=== PATIENT | male | born 1955 | race Asian ===

== ENCOUNTER 2022-03-30 16:20 | Outpatient (REF) | payer OTHER, SELFPAY ==
[2022-03-30 16:36] LABS: MANUAL DIFF FLAG NO
[2022-03-30 17:00] LABS: Basophils Percent Auto 0.2 % (0-2); Eosinophils Percent Auto 0.4 % (0-4); Hematocrit 44.2 % (42.0-52.0); Hemoglobin 14.8 g/dl (14.0-18.0); Imm Gran Abs Auto 0.01 X10*3/uL (0.00-0.03); Imm Gran Pct Auto 0.2 % (0.0-0.4); Lymphocytes Absolute Auto 1.4 X10*3/uL (1.2-4.9); Lymphocytes Percent Auto 28.8 % (20-40); Mean Corpuscular HGB Conc 33.5 g/dl (31.0-36.0); Mean Corpuscular Hemoglobin 29.3 pg (27.0-33.0); Mean Corpuscular Volume 87.5 fL (80.0-98.0); Mean Platelet Volume 8.8 fL (9.4-12.4); Monocytes Absolute Auto 0.5 X10*3/uL (0.1-1.2); Monocytes Percent Auto 9.9 % (2-11); Neutrophils Percent Auto 60.5 % (45-73); Platelet Count 191 X10*3/uL (160-400); Red Blood Count 5.05 X10*6/uL (4.60-5.80); Red Cell Distribution Width 12.1 % (11.0-16.0)
[2022-03-30 17:21] LABS: Anion Gap 16 (12-20); Blood Urea Nitrogen 21 mg/dL (9-16); C Reactive Protein 0.03 mg/dL (< or = 0.50); Calcium 9.3 mg/dL (8.4-10.2); Carbon Dioxide 28 mmol/L (22-29); Chloride 103 mmol/L (96-108); Estimated Glomerular Filt Rate 60; Glucose Random 94 mg/dL (60-115); Potassium 4.5 mmol/L (3.3-5.1); Sodium 142 mmol/L (135-145)
[2022-03-30 17:41] LABS: Creatinine Urine 93.76 mg/dL; Total Protein Urine Random < 7 mg/dL (<12)
[2022-03-30 18:27] LABS: Erythrocyte Sedimentation Rate 6 MM/HR (0-15)
[2022-04-01 12:18] LABS: Anti DNA DS Antibody <1 IU/mL; SM/Ribonucleoprotein Ab <1.0 NEG AI (<1.0 NEG); Smith Protein <1.0 NEG AI (<1.0 NEG)
== END 2022-03-30 16:21 | disposition home or self-care (01) ==
LOC: HO.LAB 16:20
PROVIDERS: PCP Internal Medicine; Visit Provider Internal Medicine Rheumatology
DX: R76.8 Other specified abnormal immunological findings in serum (principal)
CPT/HCPCS: 36415; 80048; 84156; 85025; 85652; 86140; 86225; 86235

== ENCOUNTER 2024-02-08 14:04 | Outpatient (AMB) | payer OTHER, SELFPAY ==
--- NOTE | 2024-02-08 14:14 | MHC.PC.OV ---
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: No Allergies No Known Allergies Allergy (Verified 02/08/24 14:15) Tobacco use date assessed: 02/08/24 Fall risk assessment: No Falls in past year Last assessed Fall Risk: 02/08/24 Dental Screening Dental Screen Date: 02/08/24 Did you have a dental visit in the last 12 months?: Yes Did you have a dental problem in the last 6 months where you did not have access to dental care?: No Was dental information given to patient?: Patient has dentist HPI HPI Comments History of Present Illness Details 68 year old male with a past medical history of CAD s/p PCI, dilation ascending aortic aneurysm, hypertension, esophageal stenosis, GERD with esophagitis, JENNIFER intolerant to CPAP, Hurtle cell neoplasm s/p partial thyroidectomy 2019 presenting to establish care.PCP was Dr Jaimes at [facility] CV: Follows with [facility] cardiology. On losartan 25mg, lipitor, ASA. Chronic intermittent chest pain, shortness of breath especially with laying flat. Next appt end of February. GI: Follows with [facility] GI. Saw Kevin Oliva 12/27/2023. 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 History of gastric erosions, esophagitis. Urology: Follows with Dr Huggins. BPH s/p TURP. History of renal cysts. History of hematuria with negative work up. MSK: [facility]. Hand pain b/l, b/l knee pain, foot pain, low back pain. Sounds like they ordered injections for patient. History of polyarthralgia, positive JOE. Saw rheumatology.Did not seem to evidence of inflammatory arthritis MSK -gout -Chronic back pain. Lumbar disc disease Endocrine: History of thyroid nodules, s/p partial/total thyroidectomy Dr Salamanca 2019. Pathology Hurtle cell. Per last PCP note-recent thyroid ultrasound with stable thyroid noduesl Nephrology: History of proteninura. Colonoscopy-02/14/2019. ROS CONSTITUTIONAL: Denies weight loss, fever and chills. HEENT: Denies changes in vision and hearing. RESPIRATORY: Denies SOB and cough. CV: Denies palpitations and CP GI: Denies abdominal pain, nausea, vomiting and diarrhea. : Denies dysuria and urinary frequency. MSK: Denies new myalgia and joint pain. SKIN: Denies rash and pruritus. NEUROLOGICAL: Denies headache PSYCHIATRIC: Denies recent changes in mood. PHYSICAL EXAM: GENERAL: Alert and oriented x 3. NAD EYES: EOMI. Anicteric. HENT: Moist mucous membranes. No scleral icterus. No cervical lymphadenopathy. LUNGS: Clear to auscultation bilaterally. CARDIOVASCULAR: Regular rate and rhythm. No murmur. No JVD. ABDOMEN: Soft, non-tender +bs EXTREMITIES: No edema. Non-tender. SKIN: No rashes or lesions. Warm. NEUROLOGIC: No focal neurological deficits. CN II-XII grossly intact PSYCHIATRIC: Cooperative. 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 1. Little interest or pleasure in doing things: not at all 2. Feeling down, depressed, or hopeless: not at all 3. Trouble falling or staying asleep, or sleeping too much: several days 4. Feeling tired or having little energy: several days 5. Poor appetite or overeating: not at all 6. Feeling bad about yourself - or that you are a failure or have let yourself or your family down: not at all 7. Trouble concentrating on things, such as reading the newspaper or watching television: not at all 8. Moving or speaking so slowly that other people could have noticed. Or the opposite - being so fidgety or restless that you have been moving around a lot more than usual: several days 9. Thoughts that you would be better off or of hurting yourself in some way: not at all Total score: 3 Depression Screening Interpretation: Positive Depression Screening Done: Yes 59853 - PHQ-9 Billing: Patient declined-do not bill Source: Developed by Drs. Vipin Cardoso, Jana Motta, Albaro Resendiz and colleagues, with an educational sonu from [employer]. Thrive Questionnaire Date Thrive assessed: 02/08/24 I am a: Patient What is your living situation today?: I have a steady place to live Within the past 12 months, did the food you bought not last and you didn't have the money to get more?: Never true Within the past 12 months, did you worry whether your food would run out before you got money to buy more?: Never true Do you have trouble paying for medicines?: No Do you have trouble getting transportation to medical appointments?: No Do you have trouble paying your heating and electricity bill?: No Do you have trouble taking care of your child, family member or friend?: No Do you have trouble with day-to-day activities such as bathing, preparing meals, shopping, managing finances, etc.?: No Are you currently unemployed and looking for a job?: No Are you interested in more education?: No Please select the resources that you would like help with: None Currently or been in a relationship where the following occur: No concerns reported THRIVE Score: 0 AUDIT C Alcohol Use Questionnaire (AUDIT-C) 1. How often do you have a drink containing alcohol?: Never 3. How often do you have six or more drinks on one occasion?: Never Total Score: 0 LAZ-7 AMB Questionnaire LAZ-7 Date LAZ - 7 assessed: 02/08/24 Feeling nervous, anxious, or on edge: 0 = Not at all Not being able to stop or control worryin = Not at all Worrying too much about different things: 0 = Not at all Trouble relaxin = Not at all Being so restless that it is hard to sit still: 0 = Not at all Becoming easily annoyed or irritable: 0 = Not at all Feeling afraid as if something awful might happen: 0 = Not at all Total LAZ-7 score (0-4 normal; 5-9 mild; 10-14 moderate; 15-21 severe): 0 Source: Developed by Drs. Vipin Cardoso, Jana Motta, Albaro Resendiz and colleagues, with an educational sonu from [employer]. LAZ-7 Assessment Billing LAZ-7 Assessment Tool: LAZ-7 Assessment 97851 Physical exam (Primary Care) Vital Signs: Last Vital Signs Temp 98.4 F 02/08/24 14:43 Pulse 70 02/08/24 14:43 Resp 14 02/08/24 14:43 BP 126/70 02/08/24 14:43 Pulse Ox 98 02/08/24 14:43 Oxygen Delivery Method Room Air 02/08/24 14:43 BMI result Body Mass Index 23.4 Tobacco/Smoking Status: Tobacco use Status Tobacco use date assessed 02/08/24 02/08/24 14:15 Patient Tobacco Use Status Never used Tobacco 02/08/24 14:50 e-Cigarette/Vaping Use Never Used 02/08/24 14:50 PHQ-9: PHQ-9 Score PHQ-9: Total score 3 02/16/24 10:29 Depression Screening Interpretation: Positive Thrive Assessment: Date of Thrive Assessment Date Thrive assessed 02/08/24 02/08/24 14:46 Currently or been in a relationship where the following occur: No concerns reported Assessment and Plan Assessment & Plan (1) CAD (coronary artery disease): Code(s): I25.10 - Atherosclerotic heart disease of [place] coronary artery without angina pectoris Qualifiers: Associated angina: without angina Coronary Disease-Associated Artery/Lesion type: [place] artery Kaw vs. transplanted heart: [place] heart Qualified Code(s): I25.10 - Atherosclerotic heart disease of [place] coronary artery without angina pectoris Plan: continue follow up with cardiology (2) Encounter to establish care: Code(s): Z76.89 - Persons encountering health services in other specified circumstances Plan: 68 year old male with complex past medical history presenting to establish care. Past medical, surgical, social and family history reviewed. (3) History of thyroid cancer: Code(s): Z85.850 - Personal history of malignant neoplasm of thyroid Plan: Does not appear to be following with endocrinology. Will refer for follow up of thyroid cancer (4) Multiple joint pain: Code(s): M25.50 - Pain in unspecified joint Plan: stable. Orders: Orders Complete Blood Count Auto Diff 02/08/24 K22.2 - Esophageal obstruction, K21.00 - Gastro-esophageal reflux disease with esophagitis, without bleeding, I25.10 - Atherosclerotic heart disease of [place] coronary artery without angina pectoris, Z85.850 - Personal history of malignant neoplasm of thyroid, N40.0 - Benign prostatic hyperplasia without lower urinary tract symptoms TSH reflex Free T4 02/08/24 K22.2 - Esophageal obstruction, K21.00 - Gastro-esophageal reflux disease with esophagitis, without bleeding, I25.10 - Atherosclerotic heart disease of [place] coronary artery without angina pectoris, Z85.850 - Personal history of malignant neoplasm of thyroid, N40.0 - Benign prostatic hyperplasia without lower urinary tract symptoms Thyroglobulin Antibodies 02/08/24 K22.2 - Esophageal obstruction, K21.00 - Gastro-esophageal reflux disease with esophagitis, without bleeding, I25.10 - Atherosclerotic heart disease of [place] coronary artery without angina pectoris, Z85.850 - Personal history of malignant neoplasm of thyroid, N40.0 - Benign prostatic hyperplasia without lower urinary tract symptoms Comprehensive Met. Panel 02/08/24 K22.2 - Esophageal obstruction, K21.00 - Gastro-esophageal reflux disease with esophagitis, without bleeding, I25.10 - Atherosclerotic heart disease of [place] coronary artery without angina pectoris, Z85.850 - Personal history of malignant neoplasm of thyroid, N40.0 - Benign prostatic hyperplasia without lower urinary tract symptoms Lipid Panel 02/08/24 K22.2 - Esophageal obstruction, K21.00 - Gastro-esophageal reflux disease with esophagitis, without bleeding, I25.10 - Atherosclerotic heart disease of [place] coronary artery without angina pectoris, Z85.850 - Personal history of malignant neoplasm of thyroid, N40.0 - Benign prostatic hyperplasia without lower urinary tract symptoms Hemoglobin A1c 02/08/24 K22.2 - Esophageal obstruction, K21.00 - Gastro-esophageal reflux disease with esophagitis, without bleeding, I25.10 - Atherosclerotic heart disease of [place] coronary artery without angina pectoris, Z85.850 - Personal history of malignant neoplasm of thyroid, N40.0 - Benign prostatic hyperplasia without lower urinary tract symptoms Thyroglobulin Tumor Marker 02/08/24 K22.2 - Esophageal obstruction, K21.00 - Gastro-esophageal reflux disease with esophagitis, without bleeding, I25.10 - Atherosclerotic heart disease of [place] coronary artery without angina pectoris, Z85.850 - Personal history of malignant neoplasm of thyroid, N40.0 - Benign prostatic hyperplasia without lower urinary tract symptoms Referrals Cardiology Referral I25.10 - Atherosclerotic heart disease of [place] coronary artery without angina pectoris Gastroenterology Referral K21.00 - Gastro-esophageal reflux disease with esophagitis, without bleeding, K22.2 - Esophageal obstruction Medications: Changed From albuterol sulfate 90 mcg/actuation 2 puffs inhalation Q4H PRN To albuterol sulfate 90 mcg/actuation 2 puffs inhalation Q4H PRN 8.5 grams 3RF shortness of breath or wheezing From diclofenac sodium 1% 1 g topical BID To diclofenac sodium 1% 1 g topical BID 100 grams 3RF 90 days Coding Level of Care Code New Pt Level 5 (12393) Diagnoses Coronary artery disease involving [place] coronary artery of [place] heart without angina pectoris I25.10 Associated angina: without angina Coronary Disease-Associated Artery/Lesion type: [place] artery Kaw vs. transplanted heart: [place] heart Encounter to establish care Z76.89 History of thyroid cancer Z85.850 Multiple joint pain M25.50 Additional Codes LAZ-7 Assessment Billing - LAZ-7 Assessment Tool: LAZ-7 Assessment [id number] ([id number]) Time Spent (min) 85
[2024-02-08 14:43] VITALS: BP 126/70; PULSE 70; RESP 14; TEMP 36.9; O2SAT 98; BMI 23.4
== END 2024-02-08 15:28 | disposition home or self-care (01) ==
PROVIDERS: PCP Internal Medicine; Visit Provider Internal Medicine
DX: I25.10 Atherosclerotic heart disease of native coronary artery without angina pectoris (principal); Z76.89 Persons encountering health services in other specified circumstances; Z85.850 Personal history of malignant neoplasm of thyroid; M25.50 Pain in unspecified joint
CPT/HCPCS: 99205

== ENCOUNTER 2024-02-08 15:32 | Outpatient (REF) | payer OTHER, SELFPAY ==
[2024-02-08 17:50] LABS: MANUAL DIFF FLAG NO
[2024-02-08 17:57] LABS: Basophils Percent Auto 0.2 % (0-2); Eosinophils Percent Auto 0.2 % (0-4); Hematocrit 46.5 % (42.0-52.0); Imm Gran Abs Auto 0.01 X10*3/uL (0.00-0.03); Imm Gran Pct Auto 0.2 % (0.0-0.4); Lymphocytes Absolute Auto 1.4 X10*3/uL (1.2-4.9); Lymphocytes Percent Auto 30.8 % (20-40); Mean Corpuscular HGB Conc 34.4 g/dl (31.0-36.0); Mean Corpuscular Hemoglobin 30.1 pg (27.0-33.0); Mean Corpuscular Volume 87.6 fL (80.0-98.0); Mean Platelet Volume 9.1 fL (9.4-12.4); Monocytes Absolute Auto 0.4 X10*3/uL (0.1-1.2); Monocytes Percent Auto 8.4 % (2-11); Neutrophils Absolute Auto 2.6 x10*3/uL (2.0-8.3); Neutrophils Percent Auto 60.2 % (45-73); Platelet Count 215 X10*3/uL (160-400); Red Blood Count 5.31 X10*6/uL (4.60-5.80); Red Cell Distribution Width 11.8 % (11.0-16.0); White Blood Count 4.4 X10*3/uL (4.8-10.8)
[2024-02-08 18:23] LABS: Alanine Aminotransferase 28 U/L (0-40); Albumin Level 4.2 g/dL (3.5-5.0); Alkaline Phosphatase 63 U/L (39-117); Anion Gap 11 (12-20); Aspartate Amino Transferase 24 U/L (5-37); Bilirubin Total 0.6 mg/dL (0.0-1.0); Blood Urea Nitrogen 17 mg/dL (9-16); Calcium 9.7 mg/dL (8.4-10.2); Carbon Dioxide 31 mmol/L (22-29); Chloride 104 mmol/L (96-108); Cholesterol 205 mg/dL (<200); Estimated Glomerular Filt Rate > 60; Glucose Random 103 mg/dL (60-115); HDL Cholesterol 59 mg/dL (>40); Potassium 4.2 mmol/L (3.3-5.1); Sodium 142 mmol/L (135-145); Total Protein 7.2 g/dL (6.5-8.0); Triglycerides 503 mg/dL (<150)
[2024-02-08 18:30] LABS: TSH reflex Free T4 1.61 uIU/mL (0.32-4.0)
[2024-02-09 05:22] LABS: Estimated Average Glucose 103 mg/dL; Hemoglobin A1c % 5.2 % (<6.0)
[2024-02-10 08:43] LABS: Thyroglobulin Antibodies <1 IU/mL (< or = 1)
[2024-02-12 21:58] LABS: Thyroglobulin Antibody <1 IU/mL (<=1); Thyroglobulin Level 10.1 ng/mL
== END 2024-02-08 15:33 | disposition home or self-care (01) ==
LOC: HO.WFDLDS 15:32
PROVIDERS: Visit Provider Internal Medicine
DX: N40.0 Benign prostatic hyperplasia without lower urinary tract symptoms (principal); Z85.850 Personal history of malignant neoplasm of thyroid; I25.10 Atherosclerotic heart disease of native coronary artery without angina pectoris; K21.00 Gastro-esophageal reflux disease with esophagitis, without bleeding; K22.2 Esophageal obstruction; Z13.1 Encounter for screening for diabetes mellitus
CPT/HCPCS: 36415; 80053; 80061; 83036; 84432; 84443; 85025; 86800

== ENCOUNTER 2024-03-01 13:43 | Outpatient (AMB) | payer OTHER, SELFPAY ==
[2024-03-01 13:44] VITALS: BP 166/78; PULSE 71; BMI 23.7
--- NOTE | 2024-03-01 13:44 | MHC.OFFVIS ---
Vital Signs 03/01/24 13:44 Height 5 ft 6 in Weight 147 lb 0.773 oz BMI 23.7 BP 166/78 H Blood Pressure Location Lt brachial Position Sitting Pulse 71 Pulse Source Pulse Oximeter Intake Visit Reasons: Thyroid nodule Hired Hand Required: Yes Hired Hand Language: Luxembourgish Hired Hand Services: Hired Hand Present Hired Hand Name: Viktoria [id number] and [id number] Information Interpreted: non-clinical & clinical Accompanied by: Self / Same As Patient Allergies No Known Allergies Allergy (Verified 03/01/24 13:47) Medication List - Last Reconciled 03/01/24 by Alisa Guzman MD albuterol sulfate 90 mcg/actuation 2 puffs inhalation Q4H PRN aspirin 81 mg PO DAILY atorvastatin 80 mg PO DAILY diclofenac sodium 1% 1 g topical BID 90 days efinaconazole 10% (Jublia) 1 appl topical DAILY esomeprazole magnesium 40 mg PO DAILY gabapentin 300 mg PO BID hydroxyzine HCl 50 mg PO BID indomethacin 50 mg PO TID ketoconazole 2% appl topical BID ketorolac 0.5% 1 drp ophthalmic (eye) BID lidocaine 5% 1 patch topical DAILY lidocaine-prilocaine 2.5-2.5 % 1 g topical BID losartan 25 mg PO DAILY meclizine 12.5 mg PO TID sucralfate 1 g PO QIDACHS triamcinolone acetonide 0.1% 1 appl topical BID triamcinolone acetonide 0.1% topical BID PRN triamcinolone acetonide 0.025% 1 appl topical BID HPI Comments Details: 68-year-old male with history of thyroid nodules who is s/p left partial thyroidectomy coming in today to establish care. History significant for CAD. Patient describes he was referred to endocrinology somewhere in [place] (PCP Katie Jaimes [address] [facility] ao [facility], [facility] [address]) for thyroid nodules. Subsequently fna x2 reports abnormal results. History of thyroid nodules, s/p partial thyroidectomy Dr Salamanca July 2019. Surgery done at [address] Pathology was benign per patient We do not have these records yet. Not on levothyroxine Labs Laboratory Tests 02/08/24 02/08/24 15:30 Unknown TSH 1.61 Thyroglobulin 10.1 H Thyroglobulin Antibody <1 Patient currently endorses constipation. Reports intermittent palpitation, anxiety, Denies mood changes, changes in appearance of eyes or vision changes, tremors, increased diaphoresis or dry skin. ?Report chronic low energy. feels cold while sleeping, Reports lost about 20 lbs post surgery since 2019 but has gained most of it back. Endorses difficulty swallowing for the past year. follows with [facility]. Saw Kevin Oliva 12/27/2023. 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 History of gastric erosions, esophagitis. Patient denies any difficulty swallowing, pain on swallowing or voice changes or difficulty breathing. Patient denies any history of childhood neck radiation. Denies having ever used lithium, amiodarone or biotin supplements. Born and raised in [place]. Moved here 2006. 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 Older sister had thyroid cancer. No family history of thyroid disease other than that. Review of systems Constitutional: no fevers, chills HEENT: no changes in vision Cardiac:intermittent palpitations. Pulmonary: No SOB GI:chronic constipation : no burning micturition, dysuria or increase in urinary frequency Neurologic: No dizziness, no weakness in extremities MSK:has arthritis Physical exam General: sitting comfortably in bed in no acute distress HEENT: normocephalic/atraumatic, moist oral mucosa Neck: Well healed surgical scar noted from partial thyroidectomy Cardiac: normal heart sounds Pulm: normal breath sounds B/L, no added breath sounds Abd: not distended, no tenderness Extremities: no edema, no signs of myxedema Neuro: AAO x3, Speech: normal, no facial droop, moving all 4 extremities Skin: no rash PFSH Medical History (Updated 03/01/24 @ 14:46 by Alisa Guzman MD) Thyroid nodule Surgical History Hx of cataract extraction History of thyroid surgery History of prostate surgery Family History Sister Arthritis Mother Heart disease Lung cancer Father Hypertension Social History Household Members: Spouse Housing: Apartment Alcohol intake: never Patient Tobacco Use Status: Never used Tobacco e-Cigarette/Vaping Use: Never Used Second Hand Smoke Exposure: No service: No Current occupational status: employed 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 Current occupational exposures/hazards: No Cognitive needs: No Hearing needs: No Vision needs: No Physical Exam Vital Signs: Last Vital Signs Pulse 71 03/01/24 13:44 BP 166/78 H 03/01/24 13:44 BMI result Body Mass Index 23.7 Results Reviewed Results Reviewed: Laboratory Tests 02/08/24 02/08/24 15:30 Unknown TSH 1.61 Thyroglobulin 10.1 H Thyroglobulin Antibody <1 Assessment & Plan Assessment & Plan (1) Thyroid Nodule: Code(s): E04.1 - Nontoxic single thyroid nodule Category: Medical Plan: Patient with family history of thyroid cancer in sister, with occupational exposure to some radiation in the past, who has a history of thyroid nodules, status post left partial thyroidectomy in 07/31/2019 at [facility]. We do not have these records but patient sees pathology was benign. At this time his TSH level is normal, he has not required any levothyroxine for surgery. He has some nonspecific symptoms, however given TSH is normal, he is biochemically euthyroid. At this time we will try to obtain his records to clarify that it was indeed benign pathology and whether his prior imaging showed any nodules on the contralateral side. We will plan to repeat thyroid function testing prior to his follow-up in 6 months. If we are unable to obtain his prior imaging and records, next step would be to proceed with thyroid ultrasound. Plan I spent 45 minutes in reviewing the record, seeing the patient and documenting in the medical record. Orders: Orders Thyroid Stimulating Hormone 6 Months E04.1 - Nontoxic single thyroid nodule Free T4 (Free Thyroxine) 6 Months E04.1 - Nontoxic single thyroid nodule Patient Instructions: Do blood work before your next appointment in 6 months Coding Level of Care Code New Pt Level 4 (99550) Diagnoses Thyroid Nodule E04.1 Time Spent (min) 45 Thyroid Nodule Thyroid Nodule Results: TSH ▪ 1.61 uIU/mL (0.32-4.0) 02/08/24 Thyroglobulin Antibody ▪ <1 IU/mL (<=1) 02/08/24 Thyroglobulin ▪ 10.1 ng/mL H 02/08/24
== END 2024-03-01 14:33 | disposition home or self-care (01) ==
PROVIDERS: PCP Internal Medicine; Visit Provider Student in an Organized Health Care Education/Training Program
DX: E04.1 Nontoxic single thyroid nodule (principal)
CPT/HCPCS: 99204

== ENCOUNTER → 2024-03-01 13:43 | Outpatient (BNVA) | payer OTHER, SELFPAY | PROVIDERS: PCP Internal Medicine; Visit Provider Student in an Organized Health Care Education/Training Program | DX: E04.1 Nontoxic single thyroid nodule (principal) | CPT/HCPCS: 99202 ==

== ENCOUNTER 2024-04-17 14:39 | Outpatient (AMB) | payer OTHER, SELFPAY ==
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
[2024-04-17 14:48] VITALS: BP 112/64; PULSE 69; RESP 14; O2SAT 99; BMI 23.9
== END 2024-04-17 15:33 | disposition home or self-care (01) ==
PROVIDERS: PCP Internal Medicine; Visit Provider Internal Medicine
DX: K21.00 Gastro-esophageal reflux disease with esophagitis, without bleeding (principal); I25.10 Atherosclerotic heart disease of native coronary artery without angina pectoris; E04.1 Nontoxic single thyroid nodule

== ENCOUNTER → 2024-04-17 14:39 | Outpatient (BNVA) | payer OTHER, SELFPAY | PROVIDERS: PCP Internal Medicine; Visit Provider Internal Medicine | DX: I25.10 Atherosclerotic heart disease of native coronary artery without angina pectoris (principal); K21.00 Gastro-esophageal reflux disease with esophagitis, without bleeding; E04.1 Nontoxic single thyroid nodule; Z95.5 Presence of coronary angioplasty implant and graft | CPT/HCPCS: 99212 ==

== ENCOUNTER 2024-04-26 15:50 | Outpatient (AMB) | payer OTHER, SELFPAY ==
[2024-04-26 15:54] VITALS: BP 149/77; PULSE 72; BMI 23.7
--- NOTE | 2024-04-26 15:54 | MHC.OFFVIS ---
Vital Signs 04/26/24 15:54 Height 5 ft 6 in Weight 147 lb BMI 23.7 BP 149/77 H Blood Pressure Location Lt brachial Position Sitting Pulse 72 Intake Visit Reasons: GERD, esophagitis, w/ esophageal obstruction Intake Note: New patient in office today for GERD and esophagitis. CC: Patient states that he had an EGD two years ago at [facility] and was found to have Soto's esophagus, esophagitis, a hiatal hernia and stenosis or stricture in the entire esophagus. Limousine Rental Clerk Required: Yes Limousine Rental Clerk Language: Arabic Limousine Rental Clerk Name: [id number] Kareem Accompanied by: Self / Same As Patient Allergies No Known Allergies Allergy (Verified 06/08/24 13:16) HPI HPI GERD, esophagitis, w/ esophageal obstruction: Details: 68-year-old male here for initial evaluation of GERD. He is referred by Shelbie Upton of [facility] primary care. 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 for dysphagia - last EGD in 2021 with dilation but no evidence of esophagitis or stricture. His dysphagia was apparently attributed to motility problems, but no barium swallow is in the records he brings with him today. He says that his swallowing has been okay, but he thinks reflux may be causing his hoarse voice. He was told he needed an EGD at [facility], but they are now out of network for his insurance. This is why he was sent here. His PCP wanted a repeat EGD to assess for healing or the erosive gastritis discovered on his 2021 EGD. He is currently on nexium and carafate. Despite the above therapy he still has pain in the epigastrum with eating w/o improvement. He does not vomit but he has nausea after eating. He denies early satiety. He has had some wt fluctuations, mostly since his thyroid surgery. NO severe wt loss or gain. He says he also had vocal cord surgery and prostate surgery (TURP) at that time. He was seeing an ENT at that time. He suffers CIC all of the time. This is borne out on his CT which showed a quite large stool burden. He has even been seen in the [facility] ER for severe obstruction. This could be c/t his subjective epigastric pain via reflux - although this is not seen higher up in his esophagus via gas trapping and increased belching. He was put on MIralax in the past by the ER and this helped a bit but did not offer complete relief. He has also failed senna, bisacodyl, colace, fiber so we will progress to LInzess 145mcg and titrate. Being on sucralfate would be a c/f. But he has not taken this since 01/09 since the insurance changed and he could not see GI. The same with the esomeprazole 40mg. I will refill the esomeprazole, but am holding off on the carafate until after the EGD given the CIC. There are no prior problems with anesthesia or sedation. He denies any respiratory or cardiac problems. There are no infectious disease problems. He says he already had his repeat colonoscopy in November or December of this year after his 2019 scope showing TA's. Return office visit in 3 weeks [facility] Medical History Encounter to establish care Trigger finger Thyroid nodule Surgical History H/O colonoscopy History of esophagogastroduodenoscopy (EGD) Hx of cataract extraction History of thyroid surgery History of prostate surgery Family History Sister Arthritis Mother Heart disease Lung cancer Father Hypertension Sister Thyroid cancer Social History Household Members: Spouse Housing: Apartment Alcohol intake: never Patient Tobacco Use Status: Never used Tobacco e-Cigarette/Vaping Use: Never Used Second Hand Smoke Exposure: No service: No Current occupational status: employed 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 Current occupational exposures/hazards: No Cognitive needs: No Hearing needs: No Vision needs: No Review of Systems Const Denies fatigue, Denies fever(s), Denies night sweats, Denies poor appetite and Denies weight loss ENT Reports Normal hearing present, Denies dental pain, Reports dysphagia, Denies hearing loss, Denies mouth pain, Denies odynophagia, Denies throat swelling, Denies tongue swelling and Reports other (Dentition adequate) Card Reports no additional complaints Resp Reports no additional complaints GI Details: Reports abdominal pain, Denies melena, Denies bloating, Denies hematochezia, Reports constipation, Denies GI cramping, Reports dysphagia, Denies excessive flatus, Denies early satiety, Reports heartburn, Denies diarrhea, Reports nausea, Denies odynophagia, Denies vomiting and Denies hematemesis Skin/Breast Denies pruritus, Denies lesions, Denies rash and Denies jaundice Neuro Reports Normal hearing present and Denies Abnormal speech present Endo Denies fatigue Aller/Immun Denies throat swelling and Denies tongue swelling Physical Exam Vital Signs: Last Vital Signs Pulse 72 04/26/24 15:54 BP 149/77 H 04/26/24 15:54 BMI result Body Mass Index 23.7 Const General: cooperative, no acute distress, well developed and well groomed Nutritional Appearance: average body habitus and well nourished Orientation/consciousness: oriented to person, oriented to place and oriented to time Limitations: language barrier HEENT Head: Yes normocephalic and Yes atraumatic Eyes General: appearance normal, both eyes and all related structures Pupils: Equal, round and reactive pupils present Neck Neck: Yes normal visual inspection and Yes no lymphadenopathy Thyroid: Thyroid normal Resp Effort & Inspection: normal respiratory effort and able to speak in complete sentences Auscultation: clear to auscultation bilaterally Cardio Rate: regular rate Rhythm: regular rhythm Heart sounds: Normal, physiologic split S2 sound present Peripheral pulses: radial pulses present and posterior tibial pulses present GI Inspection: No distended and No Abdominal panniculus present Palpation (GI): Soft to palpation, nontender, no guarding, not rigid and No hepatosplenomegaly present Percussion: Yes normal to percussion Auscultation: normal bowel sounds Rectal Exam - Male: Yes deferred Skin General skin exam: no rashes or lesions noted, turgor normal, skin not dry, no jaundice, No spider nevi and no striae Rashes: no rashes Nails: normal Neuro General: oriented to person, oriented to place and oriented to time Cranial nerves: Yes Equal, round and reactive pupils present and Yes Normal hearing present Speech: No Abnormal speech present Extrem General: Yes normal to inspection, No clubbing, No cyanosis and No edema Psych Appearance: grossly normal and well kempt Mental Status: mental status grossly normal Speech and movement: Normal speech and movement present Affect: normal affect Attitude: cooperative Thought process: Normal thought process present and not confabulating Thought content: Normal thought content present Insight: Limited insight present (Psych) Judgement: Limited judgement present (Psych) Assessment & Plan Assessment & Plan (1) GERD with esophagitis: Code(s): K21.00 - Gastro-esophageal reflux disease with esophagitis, without bleeding Category: Medical Qualifiers: Esophagitis bleeding: unspecified whether hemorrhage Qualified Code(s): K21.00 - Gastro-esophageal reflux disease with esophagitis, without bleeding (2) Esophageal stricture: Code(s): K22.2 - Esophageal obstruction Category: Medical (3) Erosive gastritis: Code(s): K29.60 - Other gastritis without bleeding Category: Medical Plan Arabic #Tele electrical continuity tester He has an apparent extensive history of being treated at [facility] for dysphagia - last EGD in 2021 with dilation but no evidence of esophagitis or stricture. His dysphagia was apparently attributed to motility problems, but no barium swallow is in the records he brings with him today. He says that his swallowing has been okay, but he thinks reflux may be causing his hoarse voice. He was told he needed an EGD at [facility], but they are now out of network for his insurance. This is why he was sent here. His PCP wanted a repeat EGD to assess for healing or the erosive gastritis discovered on his 2021 EGD. He is currently on nexium and carafate. Despite the above therapy he still has pain in the epigastrum with eating w/o improvement. He does not vomit but he has nausea after eating. He denies early satiety. He has had some wt fluctuations, mostly since his thyroid surgery. NO severe wt loss or gain. He says he also had vocal cord surgery and prostate surgery (TURP) at that time. He was seeing an ENT at that time. He suffers CIC all of the time. This is borne out on his CT which showed a quite large stool burden. He has even been seen in the [facility] ER for severe obstruction. This could be c/t his subjective epigastric pain via reflux - although this is not seen higher up in his esophagus via gas trapping and increased belching. He was put on MIralax in the past by the ER and this helped a bit but did not offer complete relief. He has also failed senna, bisacodyl, colace, fiber so we will progress to LInzess 145mcg and titrate. Being on sucralfate would be a c/f. But he has not taken this since 01/09 since the insurance changed and he could not see GI. The same with the esomeprazole 40mg. I will refill the esomeprazole, but am holding off on the carafate until after the EGD given the CIC. There are no prior problems with anesthesia or sedation. He denies any respiratory or cardiac problems. There are no infectious disease problems. He says he already had his repeat colonoscopy in November or December of this year after his 2019 scope showing TA's. Return office visit in 3 weeks Orders: Orders EGD - GI Use Only 04/26/24 K29.60 - Other gastritis without bleeding Medications: New linaclotide (Linzess) Take first thing in the morning with a full glass of water. 145 mcg PO QAM 30 caps 3RF K58.1 - Irritable bowel syndrome with constipation esomeprazole magnesium 40 mg PO DAILY 30 caps 6RF Coding Level of Care Code New Pt Level 3 (98253) Diagnoses Gastroesophageal reflux disease with esophagitis, unspecified whether hemorrhage K21.00 Esophagitis bleeding: unspecified whether hemorrhage Esophageal stricture K22.2 Erosive gastritis K29.60
== END 2024-04-26 17:13 | disposition home or self-care (01) ==
PROVIDERS: PCP Internal Medicine; Visit Provider Nurse Practitioner
DX: K21.00 Gastro-esophageal reflux disease with esophagitis, without bleeding (principal); K22.2 Esophageal obstruction; K29.60 Other gastritis without bleeding
CPT/HCPCS: 99203

== ENCOUNTER → 2024-04-26 15:50 | Outpatient (BNVA) | payer OTHER, SELFPAY | PROVIDERS: PCP Internal Medicine; Visit Provider Nurse Practitioner | DX: K21.00 Gastro-esophageal reflux disease with esophagitis, without bleeding (principal); K22.70 Barrett's esophagus without dysplasia; K59.04 Chronic idiopathic constipation | CPT/HCPCS: 99202 ==

== ENCOUNTER 2024-05-19 13:15 | Outpatient (AMB) | payer OTHER, SELFPAY ==
[2024-05-19 13:24] VITALS: BP 117/68; PULSE 69; BMI 24.1
--- NOTE | 2024-05-19 13:24 | A.OFFVIS_ITS ---
Vital Signs 05/19/24 13:24 Height 5 ft 6 in Weight 149 lb 7.574 oz BMI 24.1 BP 117/68 Blood Pressure Location Lt brachial Position Sitting Pulse 69 Intake Visit Reasons: Follow up GERD Intake Note: Patient in office today in follow up of GERD. CC: Patient states that he feels almost the same and when he eats he gets stomach pain. Territory Business Manager Required: Yes Territory Business Manager Language: Spanish Territory Business Manager Name: [id number] Soraya Allergies No Known Allergies Allergy (Verified 07/25/24 15:46) HPI HPI Follow up GERD: Details: Assessment & Plan (1) GERD with esophagitis: Code(s): K21.00 - Gastro-esophageal reflux disease with esophagitis, without bleeding Category: Medical Qualifiers: Esophagitis bleeding: unspecified whether hemorrhage Qualified Code(s): K21.00 - Gastro-esophageal reflux disease with esophagitis, without bleeding (2) Esophageal stricture: Code(s): K22.2 - Esophageal obstruction Category: Medical (3) Erosive gastritis: Code(s): K29.60 - Other gastritis without bleeding Category: Medical Orders: Orders EGD - GI Use Only Today K29.60 - Other gastritis without bleeding Medications: New linaclotide (Linzess) Take first thing in the morning with a full glass of water. 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 for dysphagia - last EGD in 2021 with dilation but no evidence of esophagitis or stricture. His dysphagia was apparently attributed to motility problems, but no barium swallow is in the records he brings wtih him today. He says that his swallowing has been okay, but he thinks reflux may be causing his hoarse voice. He was told he needed an EGD at [facility], but they are now out of network for his insurance. This is why he was sent here. His PCP wanted a repeat EGD to assess for healing or robby erosive gastritis discovered on his 2021 EGD. He is currently on nexium and carafate. Despite the above therapy he still has pain in the epigastrum with eating w/o improvement. He does not vomit but he has nausea after eating. He denies early satiety. He has had some wt fluctuations, mostly since his thyroid surgery. NO severe wt loss or gain. He says he also had vocal cord surgery and prostate surgery (TURP) at that time. He was seeing an ENT at that time. He suffers CIC all of the time. This is borne out on his CT which showed a quite large stool burden. He has even been seen in the [facility] ER for severe obstruction. This could be c/t his subjective epigastric pain via reflux - although this is not seen higher up in his esophagus via gas trapping and increased belching. He was put on MIralax in the past by the ER and this helped a bit but did not offer complete relief. He has also failed senna, bisacodyl, colace, fiber so we will progress to LInzess 145mcg and titrate. Being on sucralfate would be a c/f. But he has not taken this since 01/09 since the insurance changed and he could not see GI. The same with the esomeprazole 40mg. I will refill the esomeprazole, but am holding off on the carafate until after the EGD given the CIC. He says he already had his repeat colonoscopy in November or December of this year after his 2019 scope shoing TA's. EGD 07/11/2024 BIOPSY TODAY'S VISIT Spanish#[id number] He is on esomeprazole, senna, Linzess 145mcg. He says he DID receive the LInzess and that the 145mcg dose is helping. We discuss possibly increasing the dose but he wants to stay on this does a bit longer. He has had no change in his epigastric pain with eating with the generic nexium, will change to Aciphex qam and cimetidine qhs. We are still holding the carafate until after the EGD r/t CIC. Keep 07/25 appt after EGD. [facility] Medical History (Updated 07/25/24 @ 16:40 by PHONG Lombardi) Finger laceration with complication Encounter to establish care Trigger finger Thyroid nodule Surgical History H/O colonoscopy History of esophagogastroduodenoscopy (EGD) Hx of cataract extraction History of thyroid surgery History of prostate surgery Family History Sister Arthritis Mother Heart disease Lung cancer Father Hypertension Sister Thyroid cancer Social History Household Members: Spouse Housing: Apartment Are you a primary career guidance technician to a significant other at home: No Do you presently have visiting nurse or other home services: No Alcohol intake: never Patient Tobacco Use Status: Never used Tobacco e-Cigarette/Vaping Use: Never Used Second Hand Smoke Exposure: No service: No Current occupational status: employed 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 Current occupational exposures/hazards: No Cognitive needs: No Hearing needs: No Vision needs: No Review of Systems Const Denies fatigue, Denies fever(s), Denies night sweats, Denies poor appetite and Denies weight loss ENT Reports Normal hearing present, Denies dental pain, Denies dysphagia, Denies hearing loss, Denies mouth pain, Denies odynophagia, Denies throat swelling, Denies tongue swelling and Reports other (Dentition adequate) Card Reports no additional complaints Resp Reports no additional complaints GI Details: Reports abdominal pain, Denies melena, Denies bloating, Denies hematochezia, Reports constipation, Denies GI cramping, Denies dysphagia, Denies excessive flatus, Denies early satiety, Reports heartburn, Denies diarrhea, Denies nausea, Denies odynophagia, Denies vomiting and Denies hematemesis Skin/Breast Denies pruritus, Denies lesions, Denies rash and Denies jaundice Neuro Reports Normal hearing present and Denies Abnormal speech present Endo Denies fatigue Aller/Immun Denies throat swelling and Denies tongue swelling Physical Exam Vital Signs: Last Vital Signs Pulse 69 05/19/24 13:24 BP 117/68 05/19/24 13:24 BMI result Body Mass Index 24.1 Const General: cooperative, no acute distress, well developed and well groomed Nutritional Appearance: average body habitus and well nourished Orientation/consciousness: oriented to person, oriented to place and oriented to time Limitations: language barrier HEENT Head: Yes normocephalic and Yes atraumatic Eyes General: appearance normal, both eyes and all related structures Pupils: Equal, round and reactive pupils present Neck Neck: Yes normal visual inspection and Yes no lymphadenopathy Thyroid: Thyroid normal Resp Effort & Inspection: normal respiratory effort and able to speak in complete sentences Auscultation: clear to auscultation bilaterally Cardio Rate: regular rate Rhythm: regular rhythm Heart sounds: Normal, physiologic split S2 sound present Peripheral pulses: radial pulses present and posterior tibial pulses present GI Inspection: No distended and No Abdominal panniculus present Palpation (GI): Soft to palpation, nontender, no guarding, not rigid and No hepatosplenomegaly present Percussion: Yes normal to percussion Auscultation: normal bowel sounds Rectal Exam - Male: Yes deferred Skin General skin exam: no rashes or lesions noted, turgor normal, skin not dry, no jaundice, No spider nevi and no striae Rashes: no rashes Nails: normal Neuro General: oriented to person, oriented to place and oriented to time Cranial nerves: Yes Equal, round and reactive pupils present and Yes Normal hearing present Speech: No Abnormal speech present Extrem General: Yes normal to inspection, No clubbing, No cyanosis and No edema Psych Appearance: grossly normal and well kempt Mental Status: mental status grossly normal Speech and movement: Normal speech and movement present Affect: normal affect Attitude: cooperative Thought process: Normal thought process present and not confabulating Thought content: Normal thought content present Insight: Limited insight present (Psych) Judgement: Limited judgement present (Psych) Assessment & Plan Assessment & Plan (1) Erosive gastritis: Code(s): K29.60 - Other gastritis without bleeding Category: Medical (2) Esophageal stricture: Code(s): K22.2 - Esophageal obstruction Category: Medical (3) GERD with esophagitis: Code(s): K21.00 - Gastro-esophageal reflux disease with esophagitis, without bleeding Category: Medical Qualifiers: Esophagitis bleeding: unspecified whether hemorrhage Qualified Code(s): K21.00 - Gastro-esophageal reflux disease with esophagitis, without bleeding (4) Chronic idiopathic constipation: Code(s): K59.04 - Chronic idiopathic constipation Category: Medical Plan Spanish#[id number] He is on esomeprazole, senna, Linzess 145mcg. He says he DID receive the LInzess and that the 145mcg dose is helping. We discuss possibly increasing the dose but he wants to stay on this does a bit longer. He has had no change in his epigastric pain with eating with the generic nexium, will change to Aciphex qam and cimetidine qhs. We are still holding the carafate until after the EGD r/t CIC. Keep 07/25 appt after EGD. Medications: New rabeprazole (AcipHex) 20 mg PO QAM 30 tabs 6RF K29.60 - Other gastritis without bleeding cimetidine 800 mg PO BEDTIME 30 tabs 6RF K29.60 - Other gastritis without bleeding Discontinued esomeprazole magnesium Discontinued Reason: Doctor's Order 40 mg PO DAILY 30 caps 6RF Coding Level of Care Code Est Pt Level 3 (32616) Diagnoses Erosive gastritis K29.60 Esophageal stricture K22.2 Gastroesophageal reflux disease with esophagitis, unspecified whether hemorrhage K21.00 Esophagitis bleeding: unspecified whether hemorrhage Chronic idiopathic constipation K59.04
== END 2024-05-19 13:52 | disposition home or self-care (01) ==
PROVIDERS: PCP Internal Medicine; Visit Provider Nurse Practitioner
DX: K29.60 Other gastritis without bleeding (principal); K22.2 Esophageal obstruction; K21.00 Gastro-esophageal reflux disease with esophagitis, without bleeding; K59.04 Chronic idiopathic constipation
CPT/HCPCS: 99213

== ENCOUNTER → 2024-05-19 13:15 | Outpatient (BNVA) | payer OTHER, SELFPAY | PROVIDERS: PCP Internal Medicine; Visit Provider Nurse Practitioner | DX: K21.00 Gastro-esophageal reflux disease with esophagitis, without bleeding (principal); K22.2 Esophageal obstruction; K29.60 Other gastritis without bleeding; K59.04 Chronic idiopathic constipation | CPT/HCPCS: 99212 ==

== ENCOUNTER 2024-06-07 14:31 | Outpatient (AMB) | payer OTHER, SELFPAY ==
--- NOTE | 2024-06-07 15:28 | AM.OFFWIN_ITS ---
Intake Vital Signs 06/07/24 15:29 Weight 148 lb BP 140/90 H Blood Pressure Location Lt brachial Position Sitting Pulse 59 Pulse Source Pulse Oximeter Pulse Oximetry (%) 100 Oxygen Delivery Method Room Air Intake Visit Reasons: EP Cut on finger/was on blood thinners Intake Note: Patient here for cut on finger of left hand. Patient Tobacco Use Status: Never used Tobacco Allergies No Known Allergies Allergy (Verified 06/07/24 15:30) Do you need a note to return to daycare/school/sports/work: No HPI HPI Comments History of Present Illness Details The patient is a 68-year-old male presenting with prolonged bleeding from a small cut. The issue began on May 27, following a minor cut sustained on the finger, although the patient does not recall the specific inciting incident. The cut initially appeared small and inconspicuous. However, the bleeding has persisted, requiring the patient to apply pressure and keep the wound covered to manage it. The patient is currently taking aspirin as a blood thinner, which may be contributing to the prolonged bleeding. No other anticoagulants, such as Eliquis or warfarin, are being used. The application of numerous Band-Aids has been ineffective in managing the bleeding. The patient has not mentioned any additional symptoms associated with the cut, and there is no report of swelling or infection. The challenging nature of stopping the bleeding suggests an underlying issue potentially exacerbated by the aspirin medication. [facility] Medical History Encounter to establish care Trigger finger Thyroid nodule Surgical History H/O colonoscopy History of esophagogastroduodenoscopy (EGD) Hx of cataract extraction History of thyroid surgery History of prostate surgery Family History Sister Arthritis Mother Heart disease Lung cancer Father Hypertension Sister Thyroid cancer Social History Household Members: Spouse Housing: Apartment Alcohol intake: never Patient Tobacco Use Status: Never used Tobacco e-Cigarette/Vaping Use: Never Used Second Hand Smoke Exposure: No service: No Current occupational status: employed 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 [employer] Current occupational exposures/hazards: No Cognitive needs: No Hearing needs: No Vision needs: No Review of Systems Const All systems reviewed & are unremarkable except as noted in HPI and below Physical Exam Vital Signs: Last Vital Signs Pulse 59 06/07/24 15:29 BP 140/90 H 06/07/24 15:29 Pulse Ox 100 06/07/24 15:29 Oxygen Delivery Method Room Air 06/07/24 15:29 Const General: cooperative, healthy appearing, comfortable, no acute distress and well developed Orientation/consciousness: patient oriented x3 Limitations: no limitations HEENT Head: Yes normal to inspection Ears: hearing grossly normal bilaterally General nose exam: Normal external nose present Face and sinus: Yes normal facial exam Eyes General: appearance normal, both eyes and all related structures Neck Neck: Yes normal visual inspection and Yes full ROM Resp Effort & Inspection: normal respiratory effort and able to speak in complete sentences Skin General skin exam: no rashes or lesions noted Neuro General: patient oriented x3 Extrem Other: Right 4th digit has skin tear, actively bleeding, no signs of infection noted General: Yes normal to inspection Assessment & Plan Assessment & Plan (1) Finger laceration with complication: Code(s): S61.219A - Laceration without foreign body of unspecified finger without damage to nail, initial encounter Qualifiers: Encounter type: initial encounter Qualified Code(s): S61.219A - Laceration without foreign body of unspecified finger without damage to nail, initial encounter Plan: Used silver nitrate to stop the bleeding, applied gauze with a slight pressure bandage, recommended patient remove this tomorrow morning and leave it open to air to ensure it has stopped bleeding. Can use a Band-Aid if needed. If bleeding continues, patient experiences pain in the finger or swelling, he should go to the emergency department for prompt treatment, may need artery tied off. Bleeding seems to have stopped for now, had patient wait in the office for an extended period of time to ensure the silver nitrate worked well. Coding Level of Care Code Est Pt Level 4 (16830) Diagnoses Complicated laceration of finger, initial encounter S61.219A Encounter type: initial encounter
[2024-06-07 15:29] VITALS: BP 140/90; PULSE 59; O2SAT 100
== END 2024-06-07 16:18 | disposition home or self-care (01) ==
PROVIDERS: PCP Internal Medicine; Visit Provider Physician Assistant
DX: S61.219A Laceration without foreign body of unspecified finger without damage to nail, initial encounter (principal)

== ENCOUNTER → 2024-06-07 14:31 | Outpatient (BNVA) | payer OTHER, SELFPAY | PROVIDERS: PCP Internal Medicine; Visit Provider Physician Assistant | DX: S61.214A Laceration without foreign body of right ring finger without damage to nail, initial encounter (principal); Z79.01 Long term (current) use of anticoagulants | CPT/HCPCS: 99212 ==

== ENCOUNTER 2024-06-08 13:10 | Emergency (ER) | payer OTHER, SELFPAY ==
--- NOTE | 2024-06-08 13:14 | ED.GENADULT ---
HPI - General Adult General Chief complaint: Wound/Laceration Stated complaint: wound check Time Seen by Provider: 06/08/24 13:22 Source: patient Mode of arrival: ambulatory Limitations: no limitations History of Present Illness ED Provider: Eliane Avelar NP HPI narrative: Patient is a 68-year-old male who presents to the emergency department for evaluation. He reports an initial laceration/cut to the right 4th digit on 05/27/2024. He does not recall exactly what had happened. Reports that yesterday he presented to urgent care for evaluation as he continued to have intermittent bleeding to the wound that would require him to apply pressure for it to subside. Takes a low-dose aspirin otherwise is not on anticoagulants or have any known coagulation disorders. Reports at the urgent care yesterday it was cauterized with silver nitrate and a bandage was applied. He was advised to have wound recheck today. Thus he presented to the emergency department. He has had a small amount of blood on the bandage that was applied yesterday. Related Data Home Medications ?Medication ?Instructions ?Recorded ?Confirmed losartan 25 mg tablet 25 mg PO DAILY 04/14/21 03/01/24 aspirin 81 mg tablet,delayed 81 mg PO DAILY 10/12/22 03/01/24 release gabapentin 300 mg capsule 300 mg PO BID 10/12/22 03/01/24 efinaconazole 10 % topical 1 appl topical DAILY 02/08/24 03/01/24 solution with applicator (Jublia) ketoconazole 2 % topical cream appl topical BID 02/08/24 03/01/24 lidocaine-prilocaine 2.5 %-2.5 % 1 g topical BID 02/08/24 03/01/24 topical cream fluticasone furoate 100 1 ea inhalation DAILY 04/17/24 mcg-vilanterol 25 mcg/dose inhalation powder (Breo Ellipta) montelukast 10 mg tablet 10 mg PO QPM 04/17/24 betamethasone, augmented 0.05 % appl topical 04/26/24 topical cream atorvastatin 10 mg tablet 10 mg PO DAILY 05/19/24 Previous Rx's ?Medication ?Instructions ?Recorded albuterol sulfate 90 mcg/actuation 2 puff inhalation Q4H PRN 02/08/24 aerosol inhaler shortness of breath or wheezing #8.5 grams diclofenac sodium 1 % topical gel 1 g topical BID 90 days #100 grams 02/08/24 linaclotide 145 mcg capsule 145 mcg PO QAM #30 caps 04/26/24 (Linzess) cimetidine 800 mg tablet 800 mg PO BEDTIME #30 tabs 05/19/24 rabeprazole 20 mg tablet,delayed 20 mg PO QAM #30 tabs 05/19/24 release (AcipHex) Allergies Allergy/AdvReac Type Severity Reaction Status Date / Time No Known Allergies Allergy Verified 06/08/24 13:16 Review of Systems Review of Systems: Yes all other systems are reviewed and are negative [facility] Past Medical History Attestation statement: The following information was validated with the patient. Medical History Encounter to establish care Trigger finger Thyroid nodule Surgical History H/O colonoscopy History of esophagogastroduodenoscopy (EGD) Hx of cataract extraction History of thyroid surgery History of prostate surgery Family History Family History Sister Arthritis Mother Heart disease Lung cancer Father Hypertension Sister Thyroid cancer Social History Social History Household Members: Spouse Housing: Apartment Alcohol intake: never Patient Tobacco Use Status: Never used Tobacco e-Cigarette/Vaping Use: Never Used Second Hand Smoke Exposure: No Do you have a plan to hurt others: No Plan service: No Current occupational status: employed 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 No acute distress.?Normal affect. CVS: Heart sounds normal. Normal heart rate and rhythm.? Pulses normal.?? Respiratory: No respiratory distress.? Lung sounds clear to auscultation bilaterally?? Skin: Skin warm and dry.? Normal skin color.? Right 4th digit with 0.25 cm crusted eschar like lesion were silver nitrate was applied topically. No active bleeding. Course Course Course Narrative: This is a rapid medical exam performed by Jacek Collazo NP: Additional HPI, ROS, PE not included below will be deferred to primary provider. Patient is a 68-year-old right hand dominant male on ASA presenting to the ED with complaint on ongoing bleeding from laceration to left 4th finger. Initial injury occurred on 05/27. Went to urgent care yesterday, they applied silver nitrate and pressure dressing. Patient advised to return for recheck today. Unsure Tdap. Medical Decision Making Medical Decision Making MDM Narrative: Patient is a 68-year-old male who presents emergency department for re-evaluation of a bleeding laceration to the distal tip of the right 4th digit. Silver nitrate used for cauterization at the urgent care yesterday. Upon review of their note he was advised to come to the emergency department if he had persistent bleeding, pain, or swelling. On evaluation there was no active bleeding, there was an eschar like cross surrounding the previous wound. Full range of motion intact to the digit. Normal capillary refill. Not appear consistent with acute arterial bleeding that would warrant further intervention at this time. Discussed conservative measures, follow-up with PCP as needed. Differential Diagnosis Differential Diagnoses: The differential diagnosis associated with the presentation includes (See narrative above) External Record Review External record reviewed: Outpatient record Prescription Management I considered prescription management with: Pain Medication (Tylenol as needed) Discharge Plan Discharge Clinical Impression: Laceration of finger of right hand Patient Disposition: Home, Self-Care Instructions: Finger Laceration (ED) Prescriptions: No Action losartan 25 mg tablet 25 mg PO DAILY aspirin 81 mg tablet,delayed release (DR/EC) 81 mg PO DAILY gabapentin 300 mg capsule 300 mg PO BID lidocaine-prilocaine 2.5-2.5 % cream 1 g topical BID ketoconazole 2 % cream topical BID Jublia 10 % solution with applicator 1 appl topical DAILY albuterol sulfate 90 mcg/actuation HFA aerosol inhaler 2 puff inhalation Q4H PRN (Reason: shortness of breath or wheezing) Qty: 8.5 3RF diclofenac sodium 1 % gel 1 g topical BID 90 Days Qty: 100 3RF fluticasone furoate-vilanterol [Breo Ellipta] 100-25 mcg/dose blister with device 1 ea inhalation DAILY montelukast 10 mg tablet 10 mg PO QPM atorvastatin 10 mg tablet 10 mg PO DAILY rabeprazole [AcipHex] 20 mg tablet,delayed release (DR/EC) 20 mg PO QAM Qty: 30 6RF cimetidine 800 mg tablet 800 mg PO BEDTIME Qty: 30 6RF betamethasone, augmented 0.05 % cream topical Linzess 145 mcg capsule 145 mcg PO QAM Qty: 30 3RF Rx Instructions: Take first thing in the morning with a full glass of water. Referrals: Shelbie Upton MD [Primary Care Provider] - Print Language: Urdu
[2024-06-08 13:15] VITALS: BP 141/81; PULSE 83; RESP 16; TEMP 36.6; O2SAT 97; BMI 25.7
--- OUTSIDE RECORDS SUMMARY | 2024-06-08 13:53 | XMS_ITS | Continuity of Care Document ---
Author Organization [facility] Address [address] [place] [address]- Care Team Providers Care Pipe Organ Installer Name Role Phone Brett Velásquez MD Primary Care Physician Encounter [facility] [id number] Date(s): 06/02/22 - 06/09/22 [facility] [address], [place] [address] Attending Physician: Ezra Swanson DO Referring Physician: Brett Velásquez MD Allergies, Adverse Reactions, Alerts No Known Allergies Medications Cozaar 25 mg oral tablet 1 tablet = 25 mg, By Mouth, Daily, 0 Refills, Maintenance, 11/20/13 12:41:20 Start Date: 11/20/13 Status: Ordered Flomax 0.4 mg oral capsule 1 capsule = 0.4 mg, By Mouth, Daily, 0 Refills, Maintenance, 11/20/13 12:41:35 Start Date: 11/20/13 Status: Ordered Glucosamine = 1,500 mg, By Mouth, Daily, 0 Refills, Maintenance, 11/20/13 12:41:52 Start Date: 11/20/13 Status: Ordered Vitamin D3 1000 intl units oral capsule 1 capsule = 1,000 International_Units, By Mouth, Daily, 0 Refills, Maintenance, 11/20/13 12:42:29 Start Date: 11/20/13 Status: Ordered Vital Signs Most recent to oldest [Reference Range]: 1 Height 172.7 cm (06/02/22 5:06 PM) Oxygen Saturation [94-100 %] 100 % (06/02/22 5:06 PM) Pulse Rate [55-90 bpm] 56 bpm (06/02/22 5:06 PM) Blood Pressure [90-138/55-84 mm Hg] 128/ 68mm Hg (06/02/22 5:06 PM) Respiratory Rate [16-30 br/min] 16 br/mi n (06/02/22 5:06 PM) Temperature [96.8-100.4 DegF] 97.8 DegF (06/02/22 5:06 PM) Mode of Delivery (Oxygen) Room air (06/02/22 5:06 PM) Blood pressure sites Arm, right (06/02/22 5:06 PM) Temperature Route Temporal (06/02/22 5:06 PM) Note * Samuel Hennessy: PERFORM, SIGN, VERIFY Event Display: Patient Education/Instruction Authored Date: [id number] [facility] *[facility] Clinical Summary Name ADDIE GARCIA Age 66 Years 1955 PCP Christen DURHAM, Brett PCP Visit Date 06/02/2022 15:39:00 Additional Instructions: Scheduled Appointments?? Future Appointments ?No Future Appointments Scheduled Follow-Up Instructions ?? Diagnosis Medications: Please continue your medications until treatment is completed or stopped by your provider. Discuss any questions related to medications with your provider. Medications to Continue with No Changes These medications were not printed or sent to your pharmacy Cholecalciferol (Vitamin D3 1000 intl units oral capsule) 1 capsule Oral Daily. Next Dose: Glucosamine 1,500 Milligram Oral Daily. Next Dose: Losartan (Cozaar 25 mg oral tablet) 1 tab(s) Oral Daily. Next Dose: Tamsulosin (Flomax 0.4 mg oral capsule) 1 capsule Oral Daily. Next Dose: Allergy Info:?? NKA Medications Given This Visit Future Orders ?No future orders Vital Signs Height 172.7 cm Weight BMI Blood Pressure 128 mm Hg/68 mm Hg Temperature 97.8 DegF Pulse Rate 56 bpm Respiratory Rate 16 br/min 02 Sat Mode of Delivery 100 %/Room air You can now view a summary of your hospital visit from the comfort of your home through a free online portal called IAMINTOIT. IAMINTOIT is a website that allows you to securely view your medical information including discharge summary, medications and follow-up visits. ??You can alsosend a secure electronic message to your doctor???s office to request appointments, renew medications or just ask a question. You can enroll at [email or web address] or register during your next office visit. Disclaimer:?? The information provided is of a general nature and is intended to be used in conjunction with the recommendations and advice of your health care practitioner. ??Every effort has been made to ensure that the information provided is accurate and complete at the time it is provided to you however, as your needs change, or, as new ??information becomes available, different or additional instructions may be required. If you have questions, please consult with your primary care provider or pharmacist, as appropriate. ??This information is not intended to serve as substitution for assessment and evaluation by a qualified health care provider. If you do not have a primary care provider, you may find a [facility] provider by calling [facility] at [phone]. For information about the plan of care including goals and instructions for your diagnosis, please see the patient education orders section of this document. Patient Education Materials?? The content of this educational material or handout may have been modified, supplemented, or adapted from its original content and format to support your individualized medical care. Patient Care team information Care Team Personnel Name: Brett Velásquez MD Position: S Primary Care Physician Member Role: PCP Address: Address: [address] [place] [id number]- Care Team Related Persons Name: ERVIN GARCIA Name: LEXII MILLIGAN
--- OUTSIDE RECORDS SUMMARY | 2024-06-08 13:53 | XMS_ITS | Continuity of Care Document ---
Author Organization [facility] Address [address] [place] [address]- Care Team Providers Care Experience Specialist Name Role Phone Christen DURHAM, Brett Primary Care Physician Encounter [facility] Date(s): 03/07/20 - 06/21/[address] [address] Discharge Disposition: A-D/C Home Attending Physician: Brett Velásquez MD Admitting Physician: Brett Velásquez MD Referring Physician: Brett Velásquez MD Allergies, Adverse Reactions, Alerts Substance Reaction Severity Status NKA Active Medications Cozaar 25 mg oral tablet 1 [...]
--- OUTSIDE RECORDS SUMMARY | 2024-06-08 13:53 | XMS_ITS | Continuity of Care Document ---
Author Organization [facility] Address [address] [place] [address]- Care Team Providers Care Jail Manager Name Role Phone Christen DURHAM, Brett Primary Care Physician Encounter [facility] [place] Date(s): 09/11/20 - 09/18/20 [facility] [address] [place] [address]- Attending Physician: Dania Mendosa MD Referring Physician: Brett Velásquez MD Allergies, [...] oldest [Reference Range]: 1 Height 172.7 cm (09/11/20 1:51 PM) Oxygen Saturation [94-100 %] 98 % (09/11/20 1:51 PM) Pulse Rate [55-90 bpm] 52 bpm *L* (09/11/20 1:51 PM) Blood Pressure [90-138/55-84 mm Hg] 139/ 80mm Hg *H* (09/11/20 1:51 PM) Respiratory Rate [16-30 br/min] 19 br/mi n (09/11/20 1:51 PM) Temperature [96.8-100.4 DegF] 96.6 DegF *L* (09/11/20 1:51 PM) Mode of Delivery (Oxygen) Room air (09/11/20 1:51 PM) Blood pressure sites Arm, right (09/11/20 1:51 PM) Temperature Route Temporal (09/11/20 1:51 PM)
--- OUTSIDE RECORDS SUMMARY | 2024-06-08 13:53 | XMS_ITS | Continuity of Care Document ---
Author Organization [facility] Address [address] [place] [address]- Care Team Providers Care Retention Representative Name Role Phone Wayne Jaimes MD Primary Care Physician Encounter [place] Date(s): 12/17/23 - 03/22/[address] [address] Encounter Diagnosis Dysphagia, unspecified(Final) - Discharge Disposition: A-D/C Home Attending Physician: Wayne Jaimes MD Admitting Physician: Wayne Jaimes MD Referring Physician: Vipin Cherry MD Allergies, Adverse Reactions, Alerts No Known Allergies Immunizations Given and Recorded Vaccine Date Status Refusal Reason influenza virus vaccine, inactivated 04/20/22 Landon rded influenza virus vaccine, inactivated 04/08/21 Landon rded influenza virus vaccine, inactivated 04/09/20 Landon rded influenza virus vaccine, inactivated 05/06/19 Landon rded influenza virus vaccine, inactivated 06/23/18 Landon rded influenza virus vaccine, inactivated 06/18/17 Landon rded influenza virus vaccine, inactivated 03/20/16 Alndon rded influenza virus vaccine, inactivated 04/22/15 Landon rded influenza virus vaccine, inactivated 05/16/14 Landon rded influenza virus vaccine, inactivated 05/26/13 Landon rded influenza virus vaccine, inactivated 04/19/12 Landon rded [id number] bivalent booster vax 04/01/22 Recorded SARS-CoV-2 mRNA (ogelpex-phvx-wedau) vax 10/11/21 Recorded SARS-CoV-2 (COVID-19) mRNA BNT-162b2 vac 04/26/21 Recorded SARS-CoV-2 (COVID-19) mRNA BNT-162b2 vac 10/22/20 Recorded SARS-CoV-2 (COVID-19) mRNA BNT-162b2 vac 09/30/20 Recorded tetanus/diphtheria/pertussis, acel(Tdap) 04/26/20 Recorded tetanus/diphtheria/pertussis, acel(Tdap) 08/31/12 Recorded pneumococcal 13-valent vaccine 04/09/20 Recorded zoster vaccine, inactivated 01/24/20 Recorded zoster vaccine, inactivated 09/06/19 Recorded pneumococcal 23-valent vaccine 04/28/19 Recorded Zoster Vaccine Live 09/16/15 Recorded Medications Albuterol (Eqv-ProAir HFA) 90 mcg/inh inhalation aerosol INHALE 2 PUFFS BY MOUTH EVERY 4 HOURS NEEDED FOR COUGH,WHEEZE, OR SHORTNESS OF BREATH Start Date: 09/08/22 Status: Ordered aspirin 81 mg oral delayed release tablet = 81 mg, By Mouth, Daily, # 30 tablet, 3 Refills, Maintenance, 09/10/22 15:25:00 EST, EC Tablet, [facility], Partial fill upon patient request if the prescription is for a schedule II opioid drug., 168, cm, 09/10/22 14:59:00 EST, Height,... Start Date: 09/10/22 Status: Ordered atorvastatin 80 mg oral tablet 1 tablet = 80 mg, By Mouth, Daily at bedtime, # 30 tablet, 3 Refills, Maintenance, 09/10/22 15:25:00 EST, Tablet, [facility], Partial fill upon patient request if the prescription is for a schedule II opioid drug., 168, cm, 09/10/22 14:5... Start Date: 09/10/22 Status: Ordered Brilinta (ticagrelor) By Mouth, 2 times a day, 0 Refills, Maintenance, 05/11/23 14:20:00 EDT, Partial fill upon patient request if the prescription is for a schedule II opioid drug. Start Date: 05/11/23 Status: Ordered ciclopirox 8% topical solution Topically, Daily, 0 Refills, Maintenance, 05/11/23 14:21:00 EDT, Partial fill upon patient request if the prescription is for a schedule II opioid drug. Start Date: 05/11/23 Status: Ordered diclofenac 1% topical gel APPLY 4 GRAMS TOPICALLY THREE TIMES DAILY Start Date: 09/08/22 Status: Ordered esomeprazole 20 mg oral enteric coated capsule 1 capsule = 20 mg, TAKE 1 CAPSULE BY MOUTH TWICE DAILY ON AN EMPTY STOMACH BEFORE MEAL(S) WAIT THIRTY MINUTES AND EAT TO ACTIVATE THE MEDICATION TAKE BEFORE BREAKFAST AND SUPPER Start Date: 09/08/22 Status: Ordered finasteride 5 mg oral tablet 1 tablet = 5 mg, By Mouth, Daily, # 30 tablet, 0 Refills, Maintenance, 09/08/22 12:38:00 EST, Tablet, Partial fill upon patient request if the prescription is for a schedule II opioid drug. Start Date: 09/08/22 Status: Ordered fluticasone 50 mcg/inh nasal spray 1 sprays, Nares, Both, 2 times a day, # 16 Gm, 0 Refills, Maintenance, 02/01/23 16:11:00 EDT, [place], [id number], Partial fill upon patient request if the prescription is for a schedule II opioid drug., 1 sprays Nares, Both 2 times a day, 16... Start Date: 02/01/23 Status: Ordered gabapentin 300 mg oral capsule TAKE 1 CAPSULE BY MOUTH TWICE DAILY Start Date: 09/08/22 Status: Ordered ketorolac 0.5% ophthalmic solution 1 drops, Eye, Left, Daily, 0 Refills, Maintenance, 09/10/22 16:40:00 EST, Partial fill upon patientrequest if the prescription is for a schedule II opioid drug. Start Date: 09/10/22 Status: Ordered lidocaine 5% topical film 1 patch, Topically, Daily, PRN Pain , Mild, remove after 12 hours, # 13 each, 0 Refills, Maintenance, 05/11/23 14:20:00 EDT, [place], Partial fill upon patient request if the prescription is for a schedule II opioid drug. Start Date: 05/11/23 Status: Ordered losartan 25 mg oral tablet 25 mg, 1, tablet, By Mouth, Daily, Refills 0, Maintenance, 05/11/23 14:21:00 EDT, Partial fill uponpatient request if the prescription is for a schedule II opioid drug. Start Date: 05/11/23 Status: Ordered meclizine 12.5 mg oral tablet 1 tablet = 12.5 mg, By Mouth, 3 times a day, PRN for dizziness, # 60 tablet, 0 Refills, Maintenance, 09/08/22 12:41:00 EST, Tablet, Partial fill upon patient request if the prescription is for a schedule II opioid drug. Start Date: 09/08/22 Status: Ordered PredniSONE By Mouth, Daily, 0 Refills, Maintenance, 05/11/23 14:21:00 EDT, Partial fill upon patient request if the prescription is for a schedule II opioid drug. Start Date: 05/11/23 Status: Ordered ProAir HFA 90 mcg/inh inhalation aerosol 2 puffs, Inhalation, 4 times a day, PRN as needed for wheezing, # 18 Gm, 0 Refills, Maintenance, 02/01/23 16:10:00 EDT, Aerosol, [facility], Partial fill upon patient request if the prescription is for a schedule II opioid drug., 2 puffs In... Start Date: 02/01/23 Status: Ordered ticagrelor 90 mg oral tablet 1 tablet = 90 mg, By Mouth, 2 times a day, # 60 tablet, 3 Refills, Maintenance, 09/10/22 15:25:00 EST, Tablet, [facility], Partial fill upon patient request if the prescription is for aschedule II opioid drug., 168, cm, 09/10/22 14:59:0... Start Date: 09/10/22 Status: Ordered triamcinolone 0.1% topical cream APPLY CREAM EXTERNALLY TO AFFECTED AREAS OF ECZEMA ON EXTREMITITES WITH A MOISTURIZER TWICE DAILY NEEDED Start Date: 09/08/22 Status: Ordered Patient Care team information Care Team Personnel Name: Corina Phelan RN Position: S RN Member Role: Primary Care Nurse Name: Wayne Jaimes MD Position: Reference Physician Member Role: PCP Address: Address: [address] [place] [address] [place] [address]- Care Team Related Persons Name: ERVIN GARCIA Address: home [address] [place] [id number] Name: LEXII MILLIGAN
--- OUTSIDE RECORDS SUMMARY | 2024-06-08 13:53 | XMS_ITS | Continuity of Care Document ---
Author Organization [facility] Address [address] [place] [address]- Care Team Providers Care Flight Engineer Manager Name Role Phone Wayne Jaimes MD Primary Care Physician Encounter [facility] Date(s): 02/03/23 - 02/10/23 [facility] [address] [place], [place] [address] Attending Physician: Willi Carson MD Referring Physician: Wayne Jaimes MD Allergies, Adverse Reactions, Alerts No Known [...] Landon rded influenza virus vaccine, inactivated 03/20/16 Landon rded influenza virus vaccine, inactivated 04/22/15 Landon rded influenza virus vaccine, inactivated 05/16/14 Landon rded influenza virus vaccine, inactivated 05/26/13 Landon rded influenza virus vaccine, inactivated 04/19/12 Landon rded [id number] bivalent booster vax 04/01/22 Recorded SARS-CoV-2 mRNA (ohmgmdm-uczp-dprao) vax 10/11/21 Recorded SARS-CoV-2 (COVID-19) mRNA BNT-162b2 [...] Refills, Maintenance, 09/10/22 15:25:00 EST, EC Tablet, [facility], Partial fill upon patient request if the prescription is for a schedule II opioid drug., 168, cm, 09/10/22 14:59:00 EST, Height,... Start Date: 09/10/22 Status: Ordered atorvastatin 80 mg oral tablet 1 tablet = 80 mg, By Mouth, Daily at bedtime, # 30 tablet, 3 Refills, Maintenance, 09/10/22 15:25:00 EST, Tablet, [facility], Partial fill upon patient request if the prescription is for a schedule II opioid drug., 168, cm, 09/10/22 14:5... Start Date: 09/10/22 Status: Ordered benzonatate 200 mg oral capsule 1 capsule = 200 mg, By Mouth, 3 times a day, PRN as needed for cough, for 14 days, # 42 capsule, 0 Refills, Acute 02/15/23 16:11:00 EDT, 02/01/23 16:11:00 EDT, Capsule, [id number], Partialfill upon patient request if the prescription is fo... Start Date: 02/01/23 Stop Date: 02/15/23 Status: Ordered diclofenac 1% topical gel APPLY [...] Gm, 0 Refills, Maintenance, 02/01/23 16:11:00 EDT, [place], [facility], Partial fill upon patient request [...] opioid drug. Start Date: 09/10/22 Status: Ordered meclizine 12.5 mg oral tablet 1 tablet = 12.5 mg, By Mouth, 3 times a day, PRN for dizziness, # 60 tablet, 0 Refills, Maintenance, 09/08/22 12:41:00 EST, Tablet, Partial fill upon patient request if the prescription is for a schedule II opioid drug. Start Date: 09/08/22 Status: Ordered ProAir HFA 90 mcg/inh inhalation aerosol 2 puffs, Inhalation, 4 times a day, PRN as needed for wheezing, # 18 Gm, 0 Refills, Maintenance, 02/01/23 16:10:00 EDT, Aerosol, [facility], Partial fill upon patient request if the prescription is for a schedule II opioid drug., 2 puffs In... Start Date: 02/01/23 Status: Ordered ticagrelor 90 mg oral tablet 1 tablet = 90 mg, By Mouth, 2 times a day, # 60 tablet, 3 Refills, Maintenance, 09/10/22 15:25:00 EST, Tablet, [facility], Partial fill upon patient request if the prescription is for aschedule II opioid drug., 168, cm, 09/10/22 14:59:0... Start Date: 09/10/22 Status: Ordered triamcinolone 0.1% topical cream APPLY CREAM EXTERNALLY TO AFFECTED AREAS OF ECZEMA ON EXTREMITITES WITH A MOISTURIZER TWICE DAILY NEEDED Start Date: 09/08/22 Status: Ordered Vital Signs Most recent to oldest [Reference Range]: 1 Height 168 cm (02/03/23 11:15 AM) Oxygen Saturation [94-100 %] 100 % (02/03/23 11:15 AM) Pulse Rate [55-90 bpm] 58 bpm (02/03/23 11:15 AM) Blood Pressure [90-138/55-84 mm Hg] 135/ 77mm Hg (02/03/23 11:15 AM) Respiratory Rate [16-30 br/min] 16 br/mi n (02/03/23 11:15 AM) Temperature [96.8-100.4 DegF] 97.4 DegF (02/03/23 11:15 AM) Mode of Delivery (Oxygen) Room air (02/03/23 11:15 AM) Blood pressure sites Arm, right (02/03/23 11:15 AM) Temperature Route Temporal (02/03/23 11:15 AM) Note * Samuel Hennessy: PERFORM, SIGN, VERIFY Event Display: Patient Education/Instruction Authored Date: [id number] [facility] *[facility] Clinical Summary Name ADDIE GARCIA Age 67 Years 1955 PCP Fiona DURHAM, Wayne Desouza PCP Visit Date 02/03/2023 09:40:00 Additional Instructions: Scheduled Appointments?? Future Appointments ?No Future Appointments Scheduled Follow-Up Instructions ?? Diagnosis Medications: Please continue your medications until treatment is completed or stopped by your provider. Discuss any questions related to medications with your provider. New Medications [id number], [address] [place] [id number], [phone] Guaifenesin/Codeine (codeine-guaifenesin 10 mg-100 mg/5 mL oral syrup) 10 Milliliter Oral every 4 hours as needed for cough for 7 Days. may cause drowsiness. do not take if driving.. Refills: 0. Next Dose: Medications to Continue with No Changes These medications were not printed or sent to your pharmacy Albuterol (Albuterol (Eqv-ProAir HFA) 90 mcg/inh inhalation aerosol) INHALE 2 PUFFS BY MOUTH EVERY 4 HOURS NEEDED FOR COUGH,WHEEZE, OR SHORTNESS OF BREATH. Next Dose: Albuterol (ProAir HFA 90 mcg/inh inhalation aerosol) 2 puff(s) Inhalation 4 times a day as needed as needed for wheezing. Refills: 0. Next Dose: Aspirin (aspirin 81 mg oral delayed release tablet) 81 Milligram Oral Daily. Refills: 3. Next Dose: Atorvastatin (atorvastatin 80 mg oral tablet) 1 tab(s) Oral Daily at Bedtime. Refills: 3. Next Dose: Benzonatate (benzonatate 200 mg oral capsule) 1 capsule Oral 3 times a day as needed as needed for cough for 14 Days. Refills: 0. Next Dose: Diclofenac Topical (diclofenac 1% topical gel) APPLY 4 GRAMS TOPICALLY THREE TIMES DAILY. Next Dose: Esomeprazole (esomeprazole 20 mg oral enteric coated capsule) 1 capsule. TAKE 1 CAPSULE BY MOUTH TWICE DAILY ON AN EMPTY STOMACH BEFORE MEAL(S) WAIT THIRTY MINUTES AND EAT TO ACTIVATE THE MEDICATION TAKE BEFORE BREAKFAST AND SUPPER. Next Dose: Finasteride (finasteride 5 mg oral tablet) 1 tab(s) Oral Daily. Next Dose: Fluticasone Nasal (fluticasone 50 mcg/inh nasal spray) 1 spray(s) Nares, Both twice a day. Refills:0. Next Dose: Gabapentin (gabapentin 300 mg oral capsule) TAKE 1 CAPSULE BY MOUTH TWICE DAILY. Next Dose: Ketorolac Ophthalmic (ketorolac 0.5% ophthalmic solution) 1 Drops Left eye Daily. Next Dose: Meclizine (meclizine 12.5 mg oral tablet) 1 tab(s) Oral 3 times a day as needed for dizziness. Next Dose: PredniSONE (predniSONE 20 mg oral tablet) 2 tab(s) Oral Daily for 5 Days. with food or milk. Refills: 0. Next Dose: Ticagrelor (ticagrelor 90 mg oral tablet) 1 tab(s) Oral twice a day. Refills: 3. Next Dose: Triamcinolone Topical (triamcinolone 0.1% topical cream) APPLY CREAM EXTERNALLY TO AFFECTED AREAS OF ECZEMA ON EXTREMITITES WITH A MOISTURIZER TWICE DAILY NEEDED. Next Dose: Allergy Info:?? NKA Medications Given This Visit Future Orders ?No future orders Vital Signs Height 168 cm Weight BMI Blood Pressure 135 mm Hg/77 mm Hg Temperature 97.4 DegF Pulse Rate 58 bpm Respiratory Rate 16 br/min 02 Sat Mode of Delivery 100 %/Room air You can now view a summary of your hospital visit from the comfort of your home through a free online portal called [employer]cl. Circl is a website that allows you to securely view your medical information including discharge summary, medications and follow-up visits. ??You can alsosend a secure electronic message to your doctor???s office to request appointments, renew medications or just ask a question. You can enroll at [email or web address] or register during your next office visit. [...] primary care provider, you may find a [facility] provider by calling [facility] at [phone]. For information about the plan of care [...] Team Personnel Name: Corina Phelan RN Position: [facility] RN Member Role: Primary Care Nurse Name: Silver Horan RN Position: EDSONS RN Member Role: Primary Care Nurse Name: Wayne Jaimes MD Position: Reference Physician Member Role: PCP Address: Address: [address] [place] [address] [place] [address]- Care Team Related Persons Name: ERVIN GARCIA Address: [address] [address] Name: LEXII MILLIGAN
--- OUTSIDE RECORDS SUMMARY | 2024-06-08 13:53 | XMS_ITS | Continuity of Care Document ---
Author Organization [facility] Address [address] [place] [address]- Care Team Providers Care Crossing Flagman Name Role Phone Wayne Jaimes MD Primary Care Physician [phone] Encounter [facility] [place] Date(s): 02/01/23 - 02/08/23 [facility] [address] [place] [address]- Encounter Diagnosis Acute cough(Discharge Diagnosis) - 02/01/23 Acute bronchitis, unspecified(Discharge Diagnosis) - 02/01/23 Attending Physician: Willi Carson MD Referring Physician: [...] influenza virus vaccine, inactivated 04/19/12 Landon rded [id number] bivalent booster vax 04/01/22 Recorded SARS-CoV-2 mRNA (agovnde-fyte-ttpqx) vax 10/11/21 Recorded SARS-CoV-2 (COVID-19) mRNA BNT-162b2 [...] Refills, Maintenance, 09/10/22 15:25:00 EST, EC Tablet, [facility], Partial fill upon patient request if the prescription is for a schedule II opioid drug., 168, cm, 09/10/22 14:59:00 EST, Height,... Start Date: 09/10/22 Status: Ordered atorvastatin 80 mg oral tablet 1 tablet = 80 mg, By Mouth, Daily at bedtime, # 30 tablet, 3 Refills, Maintenance, 09/10/22 15:25:00 EST, Tablet, [facility], Partial fill upon patient request if the prescription is for a schedule II opioid drug., 168, cm, 09/10/22 14:5... Start Date: 09/10/22 Status: Ordered benzonatate 200 mg oral capsule 1 capsule = 200 mg, By Mouth, 3 times a day, PRN as needed for cough, for 14 days, # 42 capsule, 0 Refills, Acute 02/15/23 16:11:00 EDT, 02/01/23 16:11:00 EDT, Capsule, [facility], Partialfill upon patient request if the prescription is fo... Start Date: 02/01/23 Stop Date: 02/15/23 Status: Ordered codeine-guaifenesin 10 mg-100 mg/5 mL oral syrup 10 mL, By Mouth, Every 4 hours, PRN for cough, for 7 days, may cause drowsiness. do not take if driving., # 120 mL, 0 Refills, Acute 02/10/23 12:06:00 EDT, 02/03/23 12:06:00 EDT, Syrup, [facility], Partial fill upon patient request if the p... Start Date: 02/03/23 Stop Date: 02/10/23 Status: Ordered diclofenac 1% topical gel APPLY [...] Gm, 0 Refills, Maintenance, 02/01/23 16:11:00 EDT, [place], [facility], Partial fill upon patient [...] 0 Refills, Maintenance, 02/01/23 16:10:00 EDT, Aerosol, [facility], Partial fill upon patient request if the prescription is for a schedule II opioid drug., 2 puffs In... Start Date: 02/01/23 Status: Ordered ticagrelor 90 mg oral tablet 1 tablet = 90 mg, By Mouth, 2 times a day, # 60 tablet, 3 Refills, Maintenance, 09/10/22 15:25:00 EST, Tablet, [facility], Partial fill upon patient request if the prescription is for aschedule II opioid drug., 168, cm, 09/10/22 14:59:0... Start Date: 09/10/22 Status: Ordered triamcinolone 0.1% topical cream APPLY CREAM EXTERNALLY TO AFFECTED AREAS OF ECZEMA ON EXTREMITITES WITH A MOISTURIZER TWICE DAILY NEEDED Start Date: 09/08/22 Status: Ordered Problem List Diagnosis Diagnosis Type Effective Dates Health Status Clinical Service Informant Acute cough Discharge Diagnosis 02/01/23 Acute bronchitis, unspecified Discharge Diagnosis 02/01/23 Vital Signs Most recent to oldest [Reference Range]: 1 Height 168 cm (02/01/23 3:07 PM) Oxygen Saturation [94-100 %] 100 % (02/01/23 3:07 PM) Pulse Rate [55-90 bpm] 70 bpm (02/01/23 3:07 PM) Blood Pressure [90-138/55-84 mm Hg] 130/ 82mm Hg (02/01/23 3:07 PM) Respiratory Rate [16-30 br/min] 20 br/mi n (02/01/23 3:07 PM) Temperature [96.8-100.4 DegF] 97.5 DegF (02/01/23 3:07 PM) Mode of Delivery (Oxygen) Room air (02/01/23 3:07 PM) Blood pressure sites Arm, left (02/01/23 3:07 PM) Temperature Route Temporal (02/01/23 3:07 PM) Note * Soraya Motta: PERFORM, SIGN, VERIFY Event Display: Patient Education/Instruction Authored Date: [id number] [facility] *[facility] Clinical Summary Name ADDIE GARCIA Age 67 Years 1955 PCP Fiona DURHAM, Wayne Desouza PCP Visit Date 02/01/2023 14:15:00 Additional Instructions: Scheduled Appointments?? Future Appointments ?No Future Appointments Scheduled Follow-Up Instructions ?? Diagnosis Acute bronchitis, unspecified; Acute cough Medications: Please continue your medications until treatment is completed or stopped by your provider. Discuss any questions related to medications with your provider. New Medications [facility], [address] [place] [address] [place] [phone], [phone] Benzonatate (benzonatate 200 mg oral capsule) 1 capsule Oral 3 times a day as needed as needed for cough for 14 Days. Refills: 0. Next Dose: Fluticasone Nasal (fluticasone 50 mcg/inh nasal spray) 1 spray(s) Nares, Both twice a day. Refills:0. Next Dose: PredniSONE (predniSONE 20 mg oral tablet) 2 tab(s) Oral Daily for 5 Days. with food or milk. Refills: 0. Next Dose: Medications to Continue Taking That Have Changed [facility], [address] [place] [id number], [phone] - Albuterol (ProAir HFA 90 mcg/inh inhalation aerosol) 2 puff(s) Inhalation 4 times a day as neededas needed for wheezing. Refills: 0. Next Dose: These medications were not printed or sent to your pharmacy - Albuterol (Albuterol (Eqv-ProAir HFA) 90 mcg/inh inhalation aerosol) INHALE 2 PUFFS BY MOUTH EVERY 4 HOURS NEEDED FOR COUGH,WHEEZE, OR SHORTNESS OF BREATH. Next Dose: Medications to Continue with No Changes These medications were not printed or sent to your pharmacy Aspirin (aspirin 81 mg oral delayed release tablet) 81 Milligram Oral Daily. Refills: 3. Next Dose: Atorvastatin (atorvastatin 80 mg oral tablet) 1 tab(s) Oral Daily at Bedtime. Refills: 3. Next Dose: Diclofenac Topical (diclofenac 1% topical [...] tablet) 1 tab(s) Oral Daily. Next Dose: Gabapentin (gabapentin 300 mg oral capsule) TAKE 1 CAPSULE BY MOUTH TWICE DAILY. Next Dose: Ketorolac Ophthalmic (ketorolac 0.5% ophthalmic solution) 1 Drops Left eye Daily. Next Dose: Meclizine (meclizine 12.5 mg oral tablet) 1 tab(s) Oral 3 times a day as needed for dizziness. Next Dose: Ticagrelor (ticagrelor 90 mg oral tablet) 1 tab(s) Oral twice a day. Refills: 3. Next Dose: Triamcinolone Topical (triamcinolone 0.1% topical cream) APPLY CREAM EXTERNALLY TO AFFECTED AREAS OF ECZEMA ON EXTREMITITES WITH A MOISTURIZER TWICE DAILY NEEDED. Next Dose: Allergy Info:?? NKA Medications Given This Visit Future Orders ?No future orders Vital Signs Height 168 cm Weight BMI Blood Pressure 130 mm Hg/82 mm Hg Temperature 97.5 DegF Pulse Rate 70 bpm Respiratory Rate 20 br/min 02 Sat Mode of Delivery 100 %/Room air You can now view a summary of your hospital visit from the comfort of your home through a free online portal called simfy. simfy is a website that allows you to securely view your medical information including discharge summary, medications and follow-up visits. ??You can alsosend a secure electronic message to your doctor???s office to request appointments, renew medications or just ask a question. You can enroll at [email or web address] or register during your next office visit. [...] primary care provider, you may find a [facility] provider by calling [facility] at [phone]. For information about the plan of care [...] Care Nurse Name: Silver Horan RN Position: S RN Member Role: Primary Care Nurse Name: Fiona DURHAM, Wayne Desouza Position: Reference Physician Member Role: PCP Address: Address: [address] [place] [address]- Care Team Related Persons Name: ERVIN GARCIA Address: [address] [address] Name: LEXII MILLIGAN
--- OUTSIDE RECORDS SUMMARY | 2024-06-08 13:53 | XMS_ITS | Continuity of Care Document ---
Author Organization [facility] Address [address] [place] [address]- Care Team Providers Care Sweat Band Sewer Name Role Phone Wayne Jaimes MD Primary Care Physician [phone] Encounter [facility] [place] Date(s): 03/02/24 - 04/01/[address] [address] Attending Physician: AdmJuan magana Admitting Physician: Admtr, Juan Referring Physician: Admtr, Ar8 Allergies, Adverse Reactions, Alerts No Known Allergies [...] influenza virus vaccine, inactivated 04/19/12 Landon rded [id number] bivalent booster vax 04/01/22 Recorded SARS-CoV-2 mRNA (wzridsd-joxh-uwcgp) vax 10/11/21 Recorded SARS-CoV-2 (COVID-19) mRNA BNT-162b2 [...] Refills, Maintenance, 09/10/22 15:25:00 EST, EC Tablet, [facility], Partial fill upon patient request if the prescription is for a schedule II opioid drug., 168, cm, 09/10/22 14:59:00 EST, Height,... Start Date: 09/10/22 Status: Ordered atorvastatin 80 mg oral tablet 1 tablet = 80 mg, By Mouth, Daily at bedtime, # 30 tablet, 3 Refills, Maintenance, 09/10/22 15:25:00 EST, Tablet, [facility], Partial fill upon patient request if [...] Gm, 0 Refills, Maintenance, 02/01/23 16:11:00 EDT, [place], [facility], Partial fill upon patient [...] 0 Refills, Maintenance, 02/01/23 16:10:00 EDT, Aerosol, [facility], Partial fill upon patient request if the prescription is for a schedule II opioid drug., 2 puffs In... Start Date: 02/01/23 Status: Ordered ticagrelor 90 mg oral tablet 1 tablet = 90 mg, By Mouth, 2 times a day, # 60 tablet, 3 Refills, Maintenance, 09/10/22 15:25:00 EST, Tablet, [facility], Partial fill upon patient request [...] Reference Physician Member Role: PCP Address: Address: [address] [place] [address] [place] [address]- Care Team Related Persons Name: ERVIN GARCIA Address: home [address] [place] [address] Name: LEXII MILLIGAN
--- OUTSIDE RECORDS SUMMARY | 2024-06-08 13:53 | XMS_ITS | Continuity of Care Document ---
Author Organization [facility] Address [address] [place] [address]- Care Team Providers Care Defence Force Member Other Ranks Name Role Phone Christen DURHAM, Brett Primary Care Physician Encounter [facility] [place] Date(s): 02/27/20 - 03/31/[address] [address]- [facility] Attending Physician: Erika Dhaliwal Admitting Physician: Erika Dhaliwal Referring Physician: Erika Dhaliwal Allergies, Adverse Reactions, Alerts Substance Reaction Severity [...]
--- OUTSIDE RECORDS SUMMARY | 2024-06-08 13:53 | XMS_ITS | Continuity of Care Document ---
Author Organization [facility] Address [address] [place] [address]- Care Team Providers Care Professor Of Forest Planning Name Role Phone Wayne Jaimes MD Primary Care Physician Encounter [facility] [place] Date(s): 01/27/24 - 05/12/[address] [address] Encounter Diagnosis Procedure and treatment not carried out, unspecified reason(Final) - Discharge Disposition: A-D/C Home Attending Physician: Wayne Jaimes MD Admitting Physician: Wayne Jaimes MD Referring Physician: Wayne Jaimes MD Allergies, [...] influenza virus vaccine, inactivated 04/19/12 Landon rded [id number] bivalent booster vax 04/01/22 Recorded SARS-CoV-2 mRNA (tpbptzk-mvrf-catfn) vax 10/11/21 Recorded SARS-CoV-2 (COVID-19) mRNA BNT-162b2 [...] Refills, Maintenance, 09/10/22 15:25:00 EST, EC Tablet, [facility], Partial fill upon patient request if the prescription is for a schedule II opioid drug., 168, cm, 09/10/22 14:59:00 EST, Height,... Start Date: 09/10/22 Status: Ordered atorvastatin 80 mg oral tablet 1 tablet = 80 mg, By Mouth, Daily at bedtime, # 30 tablet, 3 Refills, Maintenance, 09/10/22 15:25:00 EST, Tablet, [facility], Partial fill upon patient request if [...] Gm, 0 Refills, Maintenance, 02/01/23 16:11:00 EDT, [place], [facility], Partial fill upon patient request [...] 0 Refills, Maintenance, 02/01/23 16:10:00 EDT, Aerosol, [facility], Partial fill upon patient request if the prescription is for a schedule II opioid drug., 2 puffs In... Start Date: 02/01/23 Status: Ordered ticagrelor 90 mg oral tablet 1 tablet = 90 mg, By Mouth, 2 times a day, # 60 tablet, 3 Refills, Maintenance, 09/10/22 15:25:00 EST, Tablet, [facility], Partial fill upon patient request if [...] Reference Physician Member Role: PCP Address: Address: [address] [place] [address] [place] [address]- Care Team Related Persons Name: ERVIN GARCIA Address: home [address] [place] [id number] Name: LEXII MILLIGAN
--- OUTSIDE RECORDS SUMMARY | 2024-06-08 13:53 | XMS_ITS | Continuity of Care Document ---
Author Organization [facility] Address [address] [place] [address]- Care Team Providers Care Install And Repair Technician Name Role Phone Fiona DURHAM, Wayne Desouza Primary Care Physician Encounter [facility] [place] Date(s): 11/22/23 - 12/31/[address] [address] Attending Physician: Vipin Cherry MD Admitting Physician: Vipin Cherry MD Referring Physician: Vipin Cherry MD Allergies, [...] influenza virus vaccine, inactivated 04/19/12 Landon rded [id number] bivalent booster vax 04/01/22 Recorded SARS-CoV-2 mRNA (vviyogb-kqxl-aulnr) vax 10/11/21 Recorded SARS-CoV-2 (COVID-19) mRNA BNT-162b2 [...] Refills, Maintenance, 09/10/22 15:25:00 EST, EC Tablet, [facility], Partial fill upon patient request if the prescription is for a schedule II opioid drug., 168, cm, 09/10/22 14:59:00 EST, Height,... Start Date: 09/10/22 Status: Ordered atorvastatin 80 mg oral tablet 1 tablet = 80 mg, By Mouth, Daily at bedtime, # 30 tablet, 3 Refills, Maintenance, 09/10/22 15:25:00 EST, Tablet, [facility], Partial fill upon patient request if [...] Gm, 0 Refills, Maintenance, 02/01/23 16:11:00 EDT, [place], [facility], Partial fill upon patient [...] 0 Refills, Maintenance, 02/01/23 16:10:00 EDT, Aerosol, [facility], Partial fill upon patient request if the prescription is for a schedule II opioid drug., 2 puffs In... Start Date: 02/01/23 Status: Ordered ticagrelor 90 mg oral tablet 1 tablet = 90 mg, By Mouth, 2 times a day, # 60 tablet, 3 Refills, Maintenance, 09/10/22 15:25:00 EST, Tablet, [facility], Partial fill upon patient request if [...] Reference Physician Member Role: PCP Address: Address: [address] [place] [address] [place] [address]- Care Team Related Persons Name: ERVIN GARCIA Address: home [address] [place] [id number] Name: LEXII MILLIGAN
--- OUTSIDE RECORDS SUMMARY | 2024-06-08 13:53 | XMS_ITS | Continuity of Care Document ---
Author Organization [facility] Address [address] [place] [address]- Care Team Providers Care Residential Finish Carpenter Name Role Phone Wayne Jaimes MD Primary Care Physician [phone] Encounter [place] Date(s): 05/11/23 - 06/10/23 [facility] [address] [place], [place] [address] Attending Physician: Juan Vickers Admitting Physician: AdmtrJuan Referring Physician: Admtr, Ar8 Allergies, Adverse Reactions, [...] influenza virus vaccine, inactivated 04/19/12 Landon rded [id number] bivalent booster vax 04/01/22 Recorded SARS-CoV-2 mRNA (abifhlg-gbzt-uaplp) vax 10/11/21 Recorded SARS-CoV-2 (COVID-19) mRNA BNT-162b2 [...] Refills, Maintenance, 09/10/22 15:25:00 EST, EC Tablet, [facility], Partial fill upon patient request if the prescription is for a schedule II opioid drug., 168, cm, 09/10/22 14:59:00 EST, Height,... Start Date: 09/10/22 Status: Ordered atorvastatin 80 mg oral tablet 1 tablet = 80 mg, By Mouth, Daily at bedtime, # 30 tablet, 3 Refills, Maintenance, 09/10/22 15:25:00 EST, Tablet, [facility], Partial fill upon patient request [...] Gm, 0 Refills, Maintenance, 02/01/23 16:11:00 EDT, [place], [facility], Partial fill upon patient [...] 0 Refills, Maintenance, 02/01/23 16:10:00 EDT, Aerosol, [facility], Partial fill upon patient request if the prescription is for a schedule II opioid drug., 2 puffs In... Start Date: 02/01/23 Status: Ordered ticagrelor 90 mg oral tablet 1 tablet = 90 mg, By Mouth, 2 times a day, # 60 tablet, 3 Refills, Maintenance, 09/10/22 15:25:00 EST, Tablet, [facility], Partial fill upon patient request [...] Care Nurse Name: Silver Horan RN Position: [facility] RN Member Role: Primary Care Nurse Name: Wayne Jaimes MD Position: Reference Physician Member Role: PCP Address: Address: [address] [place] [address] [place] [address]- Care Team Related Persons Name: RADHA ERVIN Address: home [address] [place] [address] Name: LEXII MILLIGAN
--- OUTSIDE RECORDS SUMMARY | 2024-06-08 13:53 | XMS_ITS | Continuity of Care Document ---
Author Organization [facility] Address [address] [place] [address]- Care Team Providers Care E Learning Manager Name Role Phone Christen DURHAM, Brett Primary Care Physician Encounter [facility] [place] Date(s): 03/18/20 - 04/17/20 [facility] [address] [place] [address]- [facility] Attending Physician: Juan Vickers Admitting Physician: AdmJuan magana Referring Physician: Admtr ArMalissa Allergies, Adverse Reactions, Alerts Substance Reaction Severity [...]
--- OUTSIDE RECORDS SUMMARY | 2024-06-08 13:53 | XMS_ITS | Continuity of Care Document ---
Author Organization [facility] Address [address] [place] [address]- Care Team Providers Care Utility Technician Name Role Phone Wayne Jaimes MD Primary Care Physician [phone] Encounter [facility] [place] Date(s): 09/30/22 - 03/02/[address] [address] Encounter Diagnosis ST elevation (STEMI) myocardial infarction of unspecified site(Final) - Discharge Disposition: A-D/C Home Attending Physician: Travon Robin DO Admitting Physician: Travon Robin DO Referring Physician: Travon Robin DO Allergies, Adverse Reactions, Alerts No Known Allergies [...] influenza virus vaccine, inactivated 04/19/12 Landon rded [id number] bivalent booster vax 04/01/22 Recorded SARS-CoV-2 mRNA (vihhoyt-lbkl-xdbqq) vax 10/11/21 Recorded SARS-CoV-2 (COVID-19) mRNA BNT-162b2 [...] Refills, Maintenance, 09/10/22 15:25:00 EST, EC Tablet, [facility], Partial fill upon patient request if the prescription is for a schedule II opioid drug., 168, cm, 09/10/22 14:59:00 EST, Height,... Start Date: 09/10/22 Status: Ordered atorvastatin 80 mg oral tablet 1 tablet = 80 mg, By Mouth, Daily at bedtime, # 30 tablet, 3 Refills, Maintenance, 09/10/22 15:25:00 EST, Tablet, [facility], Partial fill upon patient request if the prescription is for a schedule II opioid drug., 168, cm, 09/10/22 14:5... Start Date: 09/10/22 Status: Ordered diclofenac 1% topical gel APPLY [...] Gm, 0 Refills, Maintenance, 02/01/23 16:11:00 EDT, [place], [facility], Partial fill upon patient [...] 0 Refills, Maintenance, 02/01/23 16:10:00 EDT, [place], [facility], Partial fill upon patient request if the prescription is for a schedule II opioid drug., 2 puffs In... Start Date: 02/01/23 Status: Ordered ticagrelor 90 mg oral tablet 1 tablet = 90 mg, By Mouth, 2 times a day, # 60 tablet, 3 Refills, Maintenance, 09/10/22 15:25:00 EST, Tablet, [facility], Partial fill upon patient request if the prescription is for aschedule II opioid drug., 168, cm, 09/10/22 14:59:0... Start Date: 09/10/22 Status: Ordered triamcinolone 0.1% topical cream APPLY CREAM EXTERNALLY TO AFFECTED AREAS OF ECZEMA ON EXTREMITITES WITH A MOISTURIZER TWICE DAILY NEEDED Start Date: 09/08/22 Status: Ordered Note * Event Display: Cardiac Rehab Telemetry Report Authored Date: * Event Display: Cardiac Rehab Telemetry Report Authored Date: * Event Display: Cardiac Rehab Telemetry Report Authored Date: Patient Care team information Care Team Personnel Name: Corina Phelan RN Position: S RN Member Role: Primary Care Nurse Name: Silver Horan RN Position: S RN Member Role: Primary Care Nurse Name: Fiona DURHAM, Wayne Desouza Position: Reference Physician Member Role: PCP Address: Address: [address] [place] [address] [place] [address]- Care Team Related Persons Name: RADHAERVIN Address: [address] [address] Name: LEXII MILLIGAN
--- OUTSIDE RECORDS SUMMARY | 2024-06-08 13:53 | XMS_ITS | Continuity of Care Document ---
Author Organization [facility] Address [address] [place] [address]- Care Team Providers Care Worship Pastor Name Role Phone Christen DURHAM, Brett Primary Care Physician Encounter [facility] [place] Date(s): 07/12/22 - 07/19/22 [facility] [address] [place], [place] [address] Attending Physician: Ezra Swanson DO Referring Physician: [...] 11/20/13 12:42:29 Start Date: 11/20/13 Status: Ordered Note * Soraya Motta: PERFORM, SIGN, VERIFY Event Display: Patient Education/Instruction Authored Date: [id number] [facility] *[facility] Clinical Summary Name ADDIE GARCIA Age 66 Years 1955 PCP Brtet Velásquez MD PCP Visit Date 07/12/2022 10:06:00 Additional Instructions: Scheduled Appointments?? Future Appointments ?No [...] Orders ?No future orders Vital Signs Height Weight BMI Blood Pressure / Temperature Pulse Rate Respiratory Rate 02 Sat Mode of Delivery / You can now view a summary of your hospital visit from the comfort of your home through a free online portal called Edventory. Edventory is a website that allows you to securely view your medical information including discharge summary, medications and follow-up visits. ??You can alsosend a secure electronic message to your doctor???s office to request appointments, renew medications or just ask a question. You can enroll at [email or web address] or register during your next office visit. [...] primary care provider, you may find a [facility] provider by calling [facility] at [phone]. For information about the plan of care [...] Care Physician Member Role: PCP Address: Address: [address] [place] [address]- Care Team Related Persons Name: ERVIN GARCIA Name: SONLEXII
--- OUTSIDE RECORDS SUMMARY | 2024-06-08 13:53 | XMS_ITS | Continuity of Care Document ---
Author Organization [facility] Address [address] [place] [address]- Care Team Providers Care Technical Operations Manager Name Role Phone Brett Velásquez MD Primary Care Physician [place] [facility] [place] [facility] [place] - 07/02/22 [facility] [address] [place] [address]- Attending Physician: Juan Vickers Admitting Physician: AdmtrJuan [...] 11/20/13 12:42:29 Start Date: 11/20/13 Status: Ordered Patient Care team information Care Team Personnel Name: Brett Velásquez MD Position: S Primary Care Physician Member Role: PCP Address: Address: [address] [place] [address]- Care Team Related Persons Name: ERVIN GARCIA Name: SONLEXII
--- OUTSIDE RECORDS SUMMARY | 2024-06-08 13:53 | XMS_ITS | Continuity of Care Document ---
Author Organization [facility] Address [address] [place] [address]- Care Team Providers Care Bung Driver Name Role Phone Wayne Jaimes MD Primary Care Physician [phone] Encounter [facility] Date(s): 12/17/23 - 01/16/[address] [address] Attending Physician: Admchino, Juan Admitting Physician: Admtr, Juan Referring Physician: Admtr, [...] influenza virus vaccine, inactivated 04/19/12 Landon rded [id number] bivalent booster vax 04/01/22 Recorded SARS-CoV-2 mRNA (tdmthmq-ffgu-[id number]) vax 10/11/21 Recorded SARS-CoV-2 (COVID-19) mRNA BNT-162b2 [...] Refills, Maintenance, 09/10/22 15:25:00 EST, EC Tablet, [facility], Partial fill upon patient request if the prescription is for a schedule II opioid drug., 168, cm, 09/10/22 14:59:00 EST, Height,... Start Date: 09/10/22 Status: Ordered atorvastatin 80 mg oral tablet 1 tablet = 80 mg, By Mouth, Daily at bedtime, # 30 tablet, 3 Refills, Maintenance, 09/10/22 15:25:00 EST, Tablet, [facility], Partial fill upon patient request [...] Gm, 0 Refills, Maintenance, 02/01/23 16:11:00 EDT, [place], [facility], Partial fill upon [...] 0 Refills, Maintenance, 02/01/23 16:10:00 EDT, Aerosol, [facility], Partial fill upon patient request if the prescription is for a schedule II opioid drug., 2 puffs In... Start Date: 02/01/23 Status: Ordered ticagrelor 90 mg oral tablet 1 tablet = 90 mg, By Mouth, 2 times a day, # 60 tablet, 3 Refills, Maintenance, 09/10/22 15:25:00 EST, Tablet, [facility], Partial fill upon patient [...] Reference Physician Member Role: PCP Address: Address: [address] [place] [address] [place] [address]- Care Team Related Persons Name: ERVIN GARCIA Address: home [address] [place] [address] Name: LEXII MILLIGAN
--- OUTSIDE RECORDS SUMMARY | 2024-06-08 13:53 | XMS_ITS | Continuity of Care Document ---
Author Organization [facility] Address [address] [place] [address]- Care Team Providers Care Reverse Unit Operator Name Role Phone Fiona DURHAM, Wayne Desouza Primary Care Physician [phone] [id number] Date(s): 05/26/24 - 06/05/[address] [address] Encounter Diagnosis Dysphonia(Final) - Discharge Disposition: A-D/C Home Attending Physician: Vipin Cherry MD Admitting Physician: Vipin Cherry MD Referring Physician: Vipin Cherry MD Encounter Type: Disch Recurring OP Allergies, Adverse Reactions, Alerts No Known Allergies Immunizations Given and Recorded Vaccine Date Status Refusal Reason influenza virus vaccine, inactivated 04/20/22 Landon rded influenza virus vaccine, inactivated 04/08/21 Landon rded influenza virus vaccine, inactivated 04/09/20 Landon rded influenza virus vaccine, inactivated 05/06/19 Landon rded influenza virus vaccine, inactivated 06/23/18 Lanodn rded influenza virus vaccine, inactivated 06/18/17 Landon rded influenza virus vaccine, inactivated 03/20/16 Landon rded influenza virus vaccine, inactivated 04/22/15 Landon rded influenza virus vaccine, inactivated 05/16/14 Landon rded influenza virus vaccine, inactivated 05/26/13 Landon rded influenza virus vaccine, inactivated 04/19/12 Landon rded [id number] bivalent booster vax 04/01/22 Recorded SARS-CoV-2 mRNA (dxrzkkz-lgfx-zojlt) vax 10/11/21 Recorded SARS-CoV-2 (COVID-19) mRNA BNT-162b2 vac 04/26/21 Recorded SARS-CoV-2 (COVID-19) mRNA BNT-162b2 vac 10/22/20 Recorded SARS-CoV-2 (COVID-19) mRNA BNT-162b2 vac 09/30/20 Recorded tetanus/diphtheria/pertussis, acel(Tdap) 04/26/20 Recorded tetanus/diphtheria/pertussis, acel(Tdap) 08/31/12 Recorded pneumococcal 13-valent vaccine 04/09/20 Recorded zoster vaccine, inactivated 01/24/20 Recorded zoster vaccine, inactivated 09/06/19 Recorded pneumococcal 23-valent vaccine 04/28/19 Recorded Zoster Vaccine Live 09/16/15 Recorded Patient Care team information Care Team Personnel Name: Tapan YANG, Corina Position: S RN Member Role: Primary Care Nurse Name: Wayne Jaimes MD Position: Reference Physician Member Role: PCP Address: [address] [place] [address] [place], [place] [address] Telecom: Care Team Related Persons Name: ERVIN GARCIA Name: SONLEXII Insurance Providers Guarantor name: ADDIE GARCIA Health Plan Information #: 2 Payer: [employer] Member Number: [id number] Policy Number: NA Group Number: NA Health Plan Information #: 1 Payer: [facility] [employer] Member Number: [id number] Policy Number: NA Group Number: [id number]
--- OUTSIDE RECORDS SUMMARY | 2024-06-08 13:53 | XMS_ITS | Continuity of Care Document ---
Author Organization 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 [address] [place], [place] [address] Attending Physician: Admchino, Juan Admitting Physician: Admtr, Juan Referring Physician: Admtr, Ar8 Allergies, Adverse Reactions, Alerts Substance Reaction Severity [...]
--- OUTSIDE RECORDS SUMMARY | 2024-06-08 13:53 | XMS_ITS | Continuity of Care Document ---
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 Name Role Phone Wayne Jaimes MD Primary Care Physician [phone] Encounter [facility] [place] [facility] Date(s): 05/11/23 - 05/18/23 [facility] [address] [place], [place] [address] Encounter Diagnosis Insect bites(Discharge Diagnosis) - 05/11/23 Attending Physician: Talita Dey MD Referring Physician: Wayne Jaimes MD Allergies, [...] influenza virus vaccine, inactivated 04/19/12 Landon rded [id number] bivalent booster vax 04/01/22 Recorded SARS-CoV-2 mRNA (zoxbtrv-zxbk-iofbc) vax 10/11/21 Recorded SARS-CoV-2 (COVID-19) mRNA BNT-162b2 [...] Refills, Maintenance, 09/10/22 15:25:00 EST, EC Tablet, [facility], Partial fill upon patient request if the prescription is for a schedule II opioid drug., 168, cm, 09/10/22 14:59:00 EST, Height,... Start Date: 09/10/22 Status: Ordered atorvastatin 80 mg oral tablet 1 tablet = 80 mg, By Mouth, Daily at bedtime, # 30 tablet, 3 Refills, Maintenance, 09/10/22 15:25:00 EST, Tablet, [facility], Partial fill upon patient request if [...] TIMES DAILY Start Date: 09/08/22 Status: Ordered diphenhydrAMINE 25 mg oral tablet 1 tablet = 25 mg, By Mouth, Daily at bedtime, PRN as needed for itching, # 12 tablet, 0 Refills, Acute 05/24/23 13:55:00 EST, 05/12/23 13:55:00 EDT, Tablet, [facility], Partial fill upon patient request if the prescription is for a schedule... Start Date: 05/12/23 Stop Date: 05/24/23 Status: Ordered esomeprazole 20 mg oral enteric [...] Gm, 0 Refills, Maintenance, 02/01/23 16:11:00 EDT, [place], [facility], Partial fill upon patient [...] 0 Refills, Maintenance, 02/01/23 16:10:00 EDT, [place], [facility], Partial fill upon patient request if the prescription is for a schedule II opioid drug., 2 puffs In... Start Date: 02/01/23 Status: Ordered ticagrelor 90 mg oral tablet 1 tablet = 90 mg, By Mouth, 2 times a day, # 60 tablet, 3 Refills, Maintenance, 09/10/22 15:25:00 EST, Tablet, [facility], Partial fill upon patient request if the prescription is for aschedule II opioid drug., 168, cm, 09/10/22 14:59:0... Start Date: 09/10/22 Status: Ordered triamcinolone 0.1% topical cream APPLY CREAM EXTERNALLY TO AFFECTED AREAS OF ECZEMA ON EXTREMITITES WITH A MOISTURIZER TWICE DAILY NEEDED Start Date: 09/08/22 Status: Ordered triamcinolone 0.1% topical cream 1 application, Topically, 2 times a day, PRN Rash, for 14 days, apply a thin film to affected area not more than 2 weeks, # 60 Gm, 0 Refills, Acute 05/26/23 14:09:00 EST, 05/12/23 14:09:00 EDT, [place], Partial fill upon patient request if the pres... Start Date: 05/12/23 Stop Date: 05/26/23 Status: Ordered Problem List Diagnosis Diagnosis Type Effective Dates Health Status Cl inical Service Informant Insect bites Discharge Diagnosis 05/11/23 Vital Signs Most recent to oldest [Reference Range]: 1 Height 168 cm (05/11/23 2:22 PM) Oxygen Saturation [94-100 %] 100 % (05/11/23 2:22 PM) Pulse Rate [55-90 bpm] 53 bpm *L* (05/11/23 2:22 PM) Blood Pressure [90-138/55-84 mm Hg] 161/ 88mm Hg *H* (05/11/23 2:22 PM) Respiratory Rate [16-30 br/min] 18 br/mi n (05/11/23 2:22 PM) Temperature [96.8-100.4 DegF] 97.8 DegF (05/11/23 2:22 PM) Mode of Delivery (Oxygen) Room air (05/11/23 2:22 PM) Blood pressure sites Arm, left (05/11/23 2:22 PM) Temperature Route Temporal (05/11/23 2:22 PM) Note * Soraya Motta: PERFORM, SIGN, VERIFY Event Display: Patient Education/Instruction Authored Date: [id number] [facility] *[facility] Clinical Summary Name ADDIE GARCIA Age 67 Years 1955 PCP Fiona DURHAM, Wayne Desouza PCP Visit Date 05/11/2023 13:26:00 Additional Instructions: Scheduled Appointments?? Future Appointments ?No Future Appointments Scheduled Follow-Up Instructions ?? Diagnosis Bitten or stung by nonvenomous insect and other nonvenomous arthropods, initial encounter Medications: Please continue your medications until treatment is completed or stopped by your provider. Discuss any questions related to medications with your provider. New Medications [facility], [address] [place] [id number], [phone] DiphenhydrAMINE (diphenhydrAMINE 25 mg oral tablet) 1 tab(s) Oral Daily at Bedtime as needed as needed for itching. Refills: 0. Next Dose: Medications to Continue Taking That Have Changed [facility], [address] [place] [id number], [phone] - Triamcinolone Topical (triamcinolone 0.1% topical cream) 1 nathan Topically twice a day as needed Rash for 14 Days. apply a thin film to affected area not more than 2 weeks. Refills: 0. Next Dose: These medications were not printed or sent to your pharmacy - Triamcinolone Topical (triamcinolone 0.1% topical cream) APPLY CREAM EXTERNALLY TO AFFECTED AREASOF ECZEMA ON EXTREMITITES WITH A MOISTURIZER TWICE DAILY NEEDED. Next Dose: Medications to Continue with No [...] Daily at Bedtime. Refills: 3. Next Dose: Ciclopirox Topical (ciclopirox 8% topical solution) Topically Daily. Next Dose: Diclofenac Topical (diclofenac 1% topical [...] 1 Drops Left eye Daily. Next Dose: Lidocaine Topical (lidocaine 5% topical film) 1 patch(es) Topically Daily as needed Pain , Mild. remove after 12 hours. Next Dose: Losartan (losartan 25 mg oral tablet) 1 tab(s) Oral Daily. Next Dose: Meclizine (meclizine 12.5 mg oral tablet) 1 tab(s) Oral 3 times a day as needed for dizziness. Next Dose: PredniSONE Oral Daily. Next Dose: Ticagrelor (Brilinta (ticagrelor)) Oral twice a day. Next Dose: Ticagrelor (ticagrelor 90 mg oral tablet) 1 tab(s) Oral twice a day. Refills: 3. Next Dose: Allergy Info:?? NKA Medications Given This Visit Future Orders ?No future orders Vital Signs Height 168 cm Weight BMI Blood Pressure 161 mm Hg/88 mm Hg Temperature 97.8 DegF Pulse Rate 53 bpm Respiratory Rate 18 br/min 02 Sat Mode of Delivery 100 %/Room air You can now view a summary of your hospital visit from the comfort of your home through a free online portal called Wakie. W[employer]ie is a website that allows you to securely view your medical information including discharge summary, medications and follow-up visits. ??You can alsosend a secure electronic message to your doctor???s office to request appointments, renew medications or just ask a question. You can enroll at [email or web address] or register during your next [...] primary care provider, you may find a [facility] provider by calling [facility] Link at [phone]. [facility], in keeping with [facility] guidance, no longer requires face masks for staff, patientsor visitors in most situations. Similar to time spent indoors at other locations, there is the chance that you were exposed to respiratory viruses during your time with us (such as flu or COVID-19).? If you develop symptoms concerning for a viral respiratory infection, please seek testing (and treatment if indicated) from your medical provider or home test kit. For information about the plan of care [...] Reference Physician Member Role: PCP Address: Address: [address] [place] [address]- Care Team Related Persons Name: ERVIN GARCIA Address: [address] [address] Name: LEXII MILLIGAN
--- OUTSIDE RECORDS SUMMARY | 2024-06-08 13:53 | XMS_ITS | Continuity of Care Document ---
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 Name Role Phone Wayne Jaimes MD Primary Care Physician [phone] Encounter [facility] Date(s): 02/03/23 - 03/05/23 [facility] [address] [place], [place] [address] Attending Physician: AdmJuan magana Admitting Physician: AdmtrJuan Referring Physician: Admtr, Ar8 [...] influenza virus vaccine, inactivated 04/19/12 Landon rded [id number] bivalent booster vax 04/01/22 Recorded SARS-CoV-2 mRNA (sckguge-kozb-ahudl) vax 10/11/21 Recorded SARS-CoV-2 (COVID-19) mRNA BNT-162b2 [...] 15:25:00 EST, EC Tablet, [facility], Partial fill upon patient request if the prescription is for a schedule II opioid drug., 168, cm, 09/10/22 14:59:00 EST, Height,... Start Date: 09/10/22 Status: Ordered atorvastatin 80 mg oral tablet 1 tablet = 80 mg, By Mouth, Daily at bedtime, # 30 tablet, 3 Refills, Maintenance, 09/10/22 15:25:00 EST, Tablet, [facility], Partial fill upon patient request [...] Gm, 0 Refills, Maintenance, 02/01/23 16:11:00 EDT, [place], [facility], Partial fill upon patient [...] 0 Refills, Maintenance, 02/01/23 16:10:00 EDT, Aerosol, [facility], Partial fill upon patient request if the prescription is for a schedule II opioid drug., 2 puffs In... Start Date: 02/01/23 Status: Ordered ticagrelor 90 mg oral tablet 1 tablet = 90 mg, By Mouth, 2 times a day, # 60 tablet, 3 Refills, Maintenance, 09/10/22 15:25:00 EST, Tablet, [facility], Partial fill upon patient [...] Physician Member Role: PCP Address: Address: [address] [place] [address]- Care Team Related Persons Name: ERVIN GARCIA Address: [address] [address] Name: LEXII MILLIGAN
--- OUTSIDE RECORDS SUMMARY | 2024-06-08 13:53 | XMS_ITS | Continuity of Care Document ---
Author Organization [facility] Address [address] [place] [address]- Care Team Providers Care Marble Finisher Name Role Phone Christen DURHAM, Brett Primary Care Physician Encounter [facility] Date(s): 04/11/20 - 05/11/[address] [address]- [facility] Attending Physician: Admtr, Zhang8 Admitting Physician: AdmtrJuan Referring Physician: Admtr, Ar8 [...]
--- OUTSIDE RECORDS SUMMARY | 2024-06-08 13:54 | XMS_ITS ---
Author Organization [facility] Address [address] [place] [address] Care Team Providers Care Marketing Intelligence Analyst Name Role Phone Wayne Jaimes MD Primary Care Provider DESI Burks Unavailable [phone] ALLERGIES No Known Allergies REASON FOR VISIT 3 month f/u MEDICATIONS Medication SIG (Take, Route, Frequency, Duration) Notes Start Date End Date Status Meclizine HCl 12.5 MG 2 tablets as neede d Orally 3 times daily Not-Taking hydrOXYzine HCl 50 MG 1 tablet as needed Orally once a day for 30 day(s) 01/20/2021 Not-Taking Pantoprazole Sodium 20 MG 1 tablet Orall y Once a day Not-Taking Ciclopirox 8 % 1 application Externally Once a day Not-Taking predniSONE 20 MG 1 tablet Orally Once a day Not-Taking Albuterol Sulfate 108 (90 Base) MCG/ACT 1 puff as needed Inhalation every 4 hrs Active Diclofenac Sodium 1 % as directed Newspaper Manager ally place 1 g onto the skin bid Active Losartan Potassium 25 MG 1 tablet Orally 0.5 tab Once a day Active Lidocaine 5 % 1 patch remove after 12 hours Externally Once a day Active Aspirin 81 MG 1 tablet Orally Once a day Active Brilinta 90 MG 1 tablet Orally Twic e a day Not-Taking Atorvastatin Calcium 80 MG 1 tablet Oral ly Once a day Active Triamcinolone (oint)-Silicone Active Sucralfate 1 GM/10ML 10 mL 1 hour before meals and at bedtime on an empty stomach Orally Four times a day Active traMADol HCl 50 MG 1 tablet as needed Orally Once a day Active Jublia 10 % 1 application Externally Once a day Active Voltaren Active Ketoconazole 2 % 1 application Externally Once a day Active Tacrolimus 0.1 % 1 application to the right foot rash Externally Once a day for 30 days Active Esomeprazole Magnesium 40 MG 1 capsule Orally Once a day Active Efinaconazole 10 % 1 application Externally Once a day for 90 days Active Griseofulvin Ultramicrosize 250 MG 1 tablet after a meal Orally once a day for 45 days Not-Taking Tamsulosin HCl 0.4 MG 1 capsule Orally O nce a day Not-Taking Vitamin E 400 UNIT 1 capsule Orally Onc e a day Not-Taking Lidocaine-Prilocaine 2.5-2.5 % APPLY 1 GRAM OF CREAM TOPICALLY TO THE RIGHT AND LEFT FOOT TWICE DAILY DIRECTED Externally twice daily for 30 days Active Lactulose 10 GM 1 packet Orally bid Not-Taking Multivitamin Not-Oseas ing Itraconazole 100 MG 1 capsule after a me al Orally Once a day for 30 days 04/15/2022 Not-Taking Lidocaine-Prilocaine 2.5-2.5 % 1 gm to the right foot as directed Externally twice daily for 30 days Not-Taking Mupirocin 2 % 1 application Externally Twice a day for 30 days 01/13/2022 Not-Taking Finasteride 5 MG 1 tablet Orally Once a day Not-Taking Gabapentin 300 MG 1 capsule Orally bid Not-Taking Griseofulvin Ultramicrosize 250 MG 1 tablet after a meal Orally once a day for 90 days 01/13/2022 Not-Taking Diclofenac Epolamine 1.3 % 1 patch as ne eded Externally Once a day for 30 days Not-Taking Vitamin D Not-Taking VITAL SIGNS Weight 152.0 lbs 09/20/2023 Height 5ft 6in in 09/20/2023 BMI 24.53 kg/m2 09/20/2023 Heart Rate 76 /min 09/20/2023 Temperature 96.9 degrees Fahrenheit 09/20/19 24 Respiratory Rate 12 /min 09/20/2023 PROCEDURES Procedure Date Ordered Date Performed Result Body Sit e DRAIN/INJECT, SMALL JOINT/BURSA 09/20/2023 N/A Encounters Encounter Location Date Provider Diagnosis [facility] [address] [address] 09/20/2023 DESI LI Onychomycosis B35.1 ; Calcium pyrophosphate deposition disease (CPPD) M11.20 ; Psoriasis L40.9 ; Hallux limitus of left foot M20.5X2 ; Hallux limitus of right foot M20.5X1 and Lumbar radiculopathy, right M54.16 ASSESSMENTS Encounter Date Diagnosis Assessment Notes Treatment Notes Treatment Clinical Notes Section Notes 09/20/2023 Onychomycosis (ICD-10 - B35.1) I reviewed with the patient various treatment methods for toenail fungus including: topical, oral, laser, and removal of the infected toenails. He has been using ciclopirox 8% solution without improvement. He has also tried both oral Lamisil and itraconazole in the past without improvement. I reviewed with the patient various treatment methods for toenail fungus including topical, oral, laser, and removal of the infected toenails. We discussed starting topical medication. I explained to the patient that a toenail takes about 12 months to grow out completely, so they should start to slowly see results. We discussed there are both OTC treatments and prescription medication for the topical treatment of toenail fungus. Rx written for Efinaconazole 10% solution to apply to each affected toenail daily. 09/20/2023 Calcium pyrophosphate deposition disease (CPPD) (ICD-10 - M11.20) This is an outpatient visit for evaluation and management of an established patient, which required appropriate review of pertinent medical history, review of any previous imaging, review of all previous records, and examination and complex decision-making. Time was 30 minutes spent in review of all these facets including face to face discussion with the patient regarding my findings and in discussion of a current and future treatment plan. He is currently being followed at [facility] for CPPD. His notes were not available for review. He continues to have joint pain bilaterally. I recommended he follows up with rheumatology regarding this issue. 09/20/2023 Psoriasis (ICD-10 - L40.9) We discussed that CPPD and psoriasis can go hand in hand. We discussed that he has tried many topical steroids without improvement or resolution. He had resolution with the tacrolimus, he does not need another refill today. 09/20/2023 Hallux limitus of left foot (ICD-10 - M20.5X2) 09/20/2023 Hallux limitus of right foot (ICD-10 - M20.5X1) Consent was reviewed and signed by the patient for a steroid injection into the right 1st metatarsophalangeal joint. Pt agreed. 3cc total steroid injection was given into the right foot. Pt tolerated well. Post-Injection instructions were given to the patient. Pt instructed to ice/elevate the foot tonight. 09/20/2023 Lumbar radiculopathy, right (ICD-10 - M54.16) We discussed a component of the right leg and foot pain is due to his lumbar spinal issues. I explained to the patient that even with injections into the back, it does not mean the symptoms distally will completely resolve. He has issues with L5/S1. We discussed this is also the cause of the pain under the right 4th and 5th toes. PLAN OF TREATMENT Medication Medication Name Sig Start Date Stop Date Notes Tacrolimus 0.1 % 1 application to the right foot rash Externally Once a day for 30 days Efinaconazole 10 % 1 application Newspaper Manager ally Once a day for 90 days Lidocaine-Prilocaine 2.5-2.5 % APPLY 1 G JANES OF CREAM TOPICALLY TO THE RIGHT AND LEFT FOOT TWICE DAILY DIRECTED Externally twice daily for 30 days Treatment Notes Assessment Notes Calcium pyrophosphate deposi tion disease (CPPD) This is an outpatient visit for evaluation and management of an established patient, which required appropriate review of pertinent medical history, review of any previous imaging, review of all previous records, and examination and complex decision-making. Time was 30 minutes spent in review of all these facets including face to face discussion with the patient regarding my findings and in discussion of a current and future treatment plan. He is currently being followed at the [facility] for CPPD. His notes were not available for review. He continues to have joint pain bilaterally. I recommended he follows up with rheumatology regarding this issue. Psoriasis We discussed that CP PD and psoriasis can go hand in hand. We discussed that he has tried many topical steroids without improvement or resolution. He had resolution with the tacrolimus, he does not need another refill today. Hallux limitus of right foot Consent was reviewed and signed by the patient for a steroid injection into the right 1st metatarsophalangeal joint. Pt agreed. 3cc total steroid injection was given into the right foot. Pt tolerated well. Post-Injection instructions were given to the patient. Pt instructed to ice/elevate the foot tonight. Pending Test Test Name Order Date DRAIN/INJECT, SMALL JOINT/BURSA 09/20/19 24 Next Appt Details Follow Up: 3 Months, Reason: Provider Name:DESI LI, 07/10/2024 02:45:00 PM, [address] [facility] [facility] [address], [place], [address], MEDICATIONS ADMINISTERED Medication Instructions Date of Administration Dosage Notes dexAMETHasone Sod Phosphate PF 09/20/2023 0.5 m L Kenalog 09/20/2023 0.5 mL Progress Notes * Mckinley LEWISOB:1955 ([age] yo M)Acc No.[id number]:09/20/2023 Progress Notes Patient:??RADHA Laina Provider:??Desi Li DPM :1955?Age:67 Y?Sex:Cristian allen Date:09/20/2023 Address:[address] [place], [place] [id number] Pcp:Wayne Jaimes MD Subjective: * Chief Complaints: * ?3 month f/u * HPI: ?Constitutional:? This 67 y/o male returns to my office with a complaint of toenail fungus and bilateral foot pain. Last year, I referred him to [facility] following an aspiration. He is using the Jublia with improvement of the toenails. He is asking for a refill today. He has tried Lamisil, ciclopirox, and itraconazole, the Lamisil was not effective, and the itraconazole caused stomach upset. He states his foot pain is located in the big toes on both side, right worse than left. He is seeing Dr. Antunez for spinal injections for lower back pain. He states the pain comes and goes. He states the lidocaine cream does seem to help. He is asking for a 1st metatarsophalangeal joint injection today. He has no other foot complaints this visit. * ROS:?GENERAL: Pt denies nausea, fever, vomiting, chills, or shortness of breath. Pt in NAD. ALLERGY: patient denies any new allergy HEME/ONC: patient denies any bleeding or clotting disorders CARDIOLOGY: pt denies chest pain, palpitations LUNGS: pt denies shortness of breath ABDOMEN: patient denies any bloating, abdominal pain, or swelling MUSCULOSKELETAL: See HPI, patient has knee pain and back pain SKIN: see HPI, otherwise no lesions, rash or itching NEURO: No persistent headache, weakness or numbness PSYCH: patient denies any current anxiety or depression The remainder of the review of systems is noncontributory. * Medical History:?? * Surgical History:??[place] [facility] [place] normal to the cecum colonoscopy -2 rectal adenomatous polyps.Internal hemorrhoids subtotal thyroidectomy TURP facial bone fracture repair urethral stricture repair. vocal cord surgery 09/2019bilateral eye surgery 03/17/2022 * Hospitalization/Major Diagno stic Procedure:??thyroidectomy * Family History:??Father: hyp ertension.??Mother: lung cancer.??Siblings: sister- diabetes, hypertensionsister- thyroid cancer.?? * Social History:?Tobacco: no Alcohol: no. * Medications:??TakingKetocona zole 2 % Cream 1 application Externally Once a day Voltaren Jublia 10 % Solution 1 application Externally Once a day Esomeprazole Magnesium 40 MG Capsule Delayed Release 1 capsule Orally Once a day traMADol HCl 50 MG Tablet 1 tablet as needed Orally Once a day Sucralfate 1 GM/10ML Suspension 10 mL 1 hour before meals and at bedtime on an empty stomach Orally Four times a day Triamcinolone (oint)-Silicone Atorvastatin Calcium 80 MG Tablet 1 tablet Orally Once a day Aspirin 81 MG Tablet Delayed Release 1 tablet Orally Once a day Lidocaine 5 % Patch 1 patch remove after 12 hours Externally Once a day Losartan Potassium 25 MG Tablet 1 tablet Orally 0.5 tab Once a day Diclofenac Sodium 1 % Gel as directed Externally place 1 g onto the skin bid Albuterol Sulfate 108 (90 Base) MCG/ACT Aerosol Powder Breath Activated 1 puff as needed Inhalation every 4 hrs Efinaconazole 10 % Solution 1 application Externally Once a day Lidocaine-Prilocaine 2.5-2.5 % Cream APPLY 1 GRAM OF CREAM TOPICALLY TO THE RIGHT AND LEFT FOOT TWICE DAILY DIRECTED Externally twice daily Tacrolimus 0.1 % Ointment 1 application to the right foot rash Externally Once a day Taking Ketoconazole 2 % Cream 1 application Externally Once a day Taking Voltaren Taking Jublia 10 % Solution 1 application Externally Once a day Taking Esomeprazole Magnesium 40 MG Capsule Delayed Release 1 capsule Orally Once a day Taking traMADol HCl 50 MG Tablet 1 tablet as needed Orally Once a day Taking Sucralfate 1 GM/10ML Suspension 10 mL 1 hour before meals and at bedtime on an empty stomach Orally Four times a day Taking Triamcinolone (oint)-Silicone Taking Atorvastatin Calcium 80 MG Tablet 1 tablet Orally Once a day Taking Aspirin 81 MG Tablet Delayed Release 1 tablet Orally Once a day Taking Lidocaine 5 % Patch 1 patch remove after 12 hours Externally Once a day Taking Losartan Potassium 25 MG Tablet 1 tablet Orally 0.5 tab Once a day Taking Diclofenac Sodium 1 % Gel as directed Externally place 1 g onto the skin bid Taking Albuterol Sulfate 108 (90 Base) MCG/ACT Aerosol Powder Breath Activated 1 puff as needed Inhalation every 4 hrs Taking Efinaconazole 10 % Solution 1 application Externally Once a day Taking Lidocaine-Prilocaine 2.5-2.5 % Cream APPLY 1 GRAM OF CREAM TOPICALLY TO THE RIGHT AND LEFT FOOT TWICE DAILY DIRECTED Externally twice daily Taking Tacrolimus 0.1 % Ointment 1 application to the right foot rash Externally Once a day Not-TakingBrilinta 90 MG Tablet 1 tablet Orally Twice a day predniSONE 20 MG Tablet 1 tablet Orally Once a day Ciclopirox 8 % Solution 1 application Externally Once a day Pantoprazole Sodium 20 MG Tablet Delayed Release 1 tablet Orally Once a day hydrOXYzine HCl 50 MG Tablet 1 tablet as needed Orally once a day Meclizine HCl 12.5 MG Tablet 2 tablets as needed Orally 3 times daily Gabapentin 300 MG Capsule 1 capsule Orally bid Finasteride 5 MG Tablet 1 tablet Orally Once a day Vitamin D Diclofenac Epolamine 1.3 % Patch 24 Hour 1 patch as needed Externally Once a day Griseofulvin Ultramicrosize 250 MG Tablet 1 tablet after a meal Orally once a day Mupirocin 2 % Ointment 1 application Externally Twice a day Lidocaine-Prilocaine 2.5-2.5 % Cream 1 gm to the right foot as directed Externally twice daily Itraconazole 100 MG Capsule 1 capsule after a meal Orally Once a day Multivitamin Lactulose 10 GM Packet 1 packet Orally bid Vitamin E 400 UNIT Capsule 1 capsule Orally Once a day Tamsulosin HCl 0.4 MG Capsule 1 capsule Orally Once a day Griseofulvin Ultramicrosize 250 MG Tablet 1 tablet after a meal Orally once a day Medication List reviewed and reconciled with the patientNot-Taking Brilinta 90 MG Tablet 1 tablet Orally Twice a day Not-Taking predniSONE 20 MG Tablet 1 tablet Orally Once a day Not-Taking Ciclopirox 8 % Solution 1 application Externally Once a day Not-Taking Pantoprazole Sodium 20 MG Tablet Delayed Release 1 tablet Orally Once a day Not-Taking hydrOXYzine HCl 50 MG Tablet 1 tablet as needed Orally once a day Not-Taking Meclizine HCl 12.5 MG Tablet 2 tablets as needed Orally 3 times daily Not-Taking Gabapentin 300 MG Capsule 1 capsule Orally bid Not-Taking Finasteride 5 MG Tablet 1 tablet Orally Once a day Not-Taking Vitamin D Not-Taking Diclofenac Epolamine 1.3 % Patch 24 Hour 1 patch as needed Externally Once a day Not-Taking Griseofulvin Ultramicrosize 250 MG Tablet 1 tablet after a meal Orally once a day Not-Taking Mupirocin 2 % Ointment 1 application Externally Twice a day Not- Taking Lidocaine-Prilocaine 2.5-2.5 % Cream 1 gm to the right foot as directed Externally twice daily Not-Taking Itraconazole 100 MG Capsule 1 capsule after a meal Orally Once a day Not-Taking Multivitamin Not-Taking Lactulose 10 GM Packet 1 packet Orally bid Not-Taking Vitamin E 400 UNIT Capsule 1 capsule Orally Once a day Not-Taking Tamsulosin HCl 0.4 MG Capsule 1 capsule Orally Once a day Not-Taking Griseofulvin Ultramicrosize 250 MG Tablet 1 tablet after a meal Orally once a day Medication List reviewed and reconciled with the patient * Allergies:??N.K.D.A.no[Aller gies Verified] Objective: * Vitals:??Wt:152.0lbs, Ht: 5f t 6in, BMI:24.53Index, HR:76/min, Temp:96.9F, RR:12/min, Ht-cm: 167.64, Wt-k.95 kg. * Examination: ?General Examination: ?GENERAL: Patient appears well nourished, with NAD. ?VASCULAR: Dorsalis pedis pulses are 2/4 bilaterally and Posterior tibial pulses are 2/4 bilaterally. Capillary filling time within normal limits the digits. No pallor on elevation or rubor on dependency. Positive hair growth. No varicosities. Denies rest pain or claudication pain. Each foot temperature is within normal limits. ?NEUROLOGICAL: Sharp/dull sensation intact bilaterally, protective sensation intact 10/10 with 5.07 Freedom Alisha bilaterally, vibratory sensation with tuning fork diminished to the tibial tuberosity bilaterally, position sense intact bilaterally to the tibial tuberosity. ?ORTHOPEDIC: Good muscle strength 4+/5 of all flexors and extensors. Dorsi flexion of ankle , 0 degrees, plantar flexion WNL. No muscle atrophy. Tenderness along the tarsal tunnel of the right foot with pain along the posterior tibial tendon to its insertion. ?DERMATOLOGICAL: Yellowed discoloration of the left 1st, 4th and 5th toenails and right hallux with subungual debris and thickening of the toenail with 30% proximal clearance. Normal skin temperature, normal skin turgor. ?BIOMECHANICS: STJ ROM WNL, MTJ ROM WNL, 1st MPJ ROM limited. On weight bearing, functional hallux limitus of the right and left foot. Pain on end ROM of the right and left 1st metatarsophalangeal joint. Pain on palpation of the left proximal phalanx but no pain on ROM of the 1st metatarsophalangeal joint. Pain along the 5th metatarsophalangeal joint on palpation and ROM. ?SHOES: sneakers. Assessment: * Assessment: 1.??Calcium pyrophosphate de position disease (CPPD) - M11.20 (Primary)??2.??Onychomycosis - B35.1??3.??Psoriasis - L40.9??4.??Hallux limitus of left foot - M20.5X2??5.??Hallux limitus of right foot - M20.5X1??6.??Lumbar radiculopathy, right - M54.16?? Plan: * Treatment: 2.??Onychomycosis?? Start Efinaconazole Solution, 10 %, 1 application, Externally, Once a day, 90 days, 10 ml, Refills 2.? Clinical Notes: I reviewed with the patient various treatment methods for toenail fungus including: topical, oral, laser, and removal of the infected toenails. He has been using ciclopirox 8% solution without improvement. He has also tried both oral Lamisil and itraconazole in the past without improvement. I reviewed with the patient various treatment methods for toenail fungus including topical, oral, laser, and removal of the infected toenails. We discussed starting topical medication. I explained to the patient that a toenail takes about 12 months to grow out completely, so they should start to slowly see results. We discussed there are both OTC treatments and prescription medication for the topical treatment of toenail fungus. Rx written for Efinaconazole 10% solution to apply to each affected toenail daily. ? 3.??Psoriasis?? Start Tacrolimus Ointment, 0.1 %, 1 application to the right foot rash, Externally, Once a day, 30 days, 60 g, Refills 2.? Notes: We discussed that CPPD and psoriasis can go hand in hand. We discussed that he has tried many topical steroids without improvement or resolution. He had resolution with the tacrolimus, he does not need another refill today. ? 4.??Hallux limitus of right foot?Procedure: DRAIN/INJECT, SMALL JOINT/BURSA Notes: Consent was reviewed and signed by the patient for a steroid injection into the right 1st metatarsophalangeal joint. Pt agreed. 3cc total steroid injection was given into the right foot. Pt tolerated well. Post-Injection instructions were given to the patient. Pt instructed to ice/elevate the foot tonight. ? 5.??Lumbar radiculopathy, ri ght?? Refill Lidocaine-Prilocaine Cream, 2.5-2.5 %, APPLY 1 GRAM OF CREAM TOPICALLY TO THE RIGHT AND LEFT FOOT TWICE DAILY DIRECTED, Externally, twice daily, 30 days, 75 g, Refills 1.? Clinical Notes: We discussed a component of the right leg and foot pain is due to his lumbar spinal issues. I explained to the patient that even with injections into the back, it does not mean the symptoms distally will completely resolve. He has issues with L5/S1. We discussed this is also the cause of the pain under the right 4th and 5th toes. ? * Procedures:?Procedure: The right foot was prepped and draped appropriately. The area was cleansed with a iodine solution. Ethyl chloride spray was then utilized to topically anesthetize the skin. 3cc steroid injection consisting of 1cc of lidocaine 1% plain, 1cc of 0.5% Marcaine Plain, 1/2cc of Decadron 4mg, and 1/2cc of Kenalog 40% was injected into the right 1st metatarsophalangeal joint. Pt tolerated the procedure well. All bleeding was stopped with pressure and a band-aid was applied. ? * Therapeutic Injections:? Dexamethasone : 0.5 mL (Dose No:1) given by Jesús ALEXISPMarizol (Hallux limitus of right foot)? Kenalog : 0.5 mL (Dose No:1) given by Jesús ALEXISP.M (Hallux limitus of right foot) * Procedure Codes:?? DRAI N/INJECT, SMALL JOINT/BURSA, Modifiers: RT J1100 INJ DEXAMETHASONE SODIM PHOSHATE 1 [id number] INJ TRIAMCINOLONE ACETONIDE 10 MG * Follow Up:??3 Months * Billing Information: * Visit Code:?? 60381 Office Visit, Est Pt., Level 4. Modifiers: 25 * Procedure Codes:?? DRAIN/INJECT, SMALL JOINT/BURSA. Modifiers: RT J1100 INJ DEXAMETHASONE SODIM PHOSHATE 1 MG. J3301 INJ TRIAMCINOLONE ACETONIDE 10 MG. * Sign off status: Completed true * Provider:??Desi Li DPM Date: ??09/20/2023 History and Physical Notes * HPI (History of Present Illness) Category Sub-Category Detail Notes Category Not es Constitutional This 67 y/o m lenny returns to my office with a complaint of toenail fungus and bilateral foot pain. Last year, [facility] an [facility]. He is using the Jublia with improvement of the toenails. He is asking for a refill today. He has tried Lamisil, ciclopirox, and itraconazole, the Lamisil was not effective, and the itraconazole caused stomach upset. He states his foot pain is located in the big toes on both side, right worse than left. He is seeing Dr. Antunez for spinal injections for lower back pain. He states the pain comes and goes. He states the lidocaine cream does seem to help. He is asking for a 1st metatarsophalangeal joint injection today. He has no other foot complaints this visit. Examination Category Sub-Category Detail Notes Category Not es General Examination GENERAL: Patient appears well nourished, with NAD. VASCULAR: Dorsalis pedis pulses are 2/4 bilaterally and Posterior tibial pulses are 2/4 bilaterally. Capillary filling time within normal limits the digits. No pallor on elevation or rubor on dependency. Positive hair growth. No varicosities. Denies rest pain or claudication pain. Each foot temperature is within normal limits. NEUROLOGICAL: Sharp/dull sensation intact bilaterally, protective sensation intact 10/10 with 5.07 Freedom Alisha bilaterally, vibratory sensation with tuning fork diminished to the tibial tuberosity bilaterally, position sense intact bilaterally to the tibial tuberosity. ORTHOPEDIC: Good muscle strength 4+/5 of all flexors and extensors. Dorsi flexion of ankle , 0 degrees, plantar flexion WNL. No muscle atrophy. Tenderness along the tarsal tunnel of the right foot with pain along the posterior tibial tendon to its insertion. DERMATOLOGICAL: Yellowed discoloration of the left 1st, 4th and 5th toenails and right hallux with subungual debris and thickening of the toenail with 30% proximal clearance. Normal skin temperature, normal skin turgor. BIOMECHANICS: STJ ROM WNL, MTJ ROM WNL, 1st MPJ ROM limited. On weight bearing, functional hallux limitus of the right and left foot. Pain on end ROM of the right and left 1st metatarsophalangeal joint. Pain on palpation of the left proximal phalanx but no pain on ROM of the 1st metatarsophalangeal joint. Pain along the 5th metatarsophalangeal joint on palpation and ROM. SHOES: sneakers
--- OUTSIDE RECORDS SUMMARY | 2024-06-08 13:54 | XMS_ITS ---
Author Organization [facility] Address [address] 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 Name Role Phone Wayne Jaimes MD Primary Care Provider DESI Burks Unavailable [phone] ALLERGIES No Known Allergies REASON FOR VISIT 3 month f/u MEDICATIONS Medication SIG (Take, Route, Frequency, Duration) Notes Start Date End Date Status Tamsulosin HCl 0.4 MG 1 capsule Orally O nce a day Not-Taking Griseofulvin Ultramicrosize 250 MG 1 tablet after a meal Orally once a day for 45 days Not-Taking Lidocaine-Prilocaine 2.5-2.5 % APPLY 1 GRAM OF CREAM TOPICALLY TO THE RIGHT AND LEFT FOOT TWICE DAILY DIRECTED Externally twice daily for 30 days Active Efinaconazole 10 % 1 application Externally Once a day for 90 days Active Tacrolimus 0.1 % 1 application to the right foot rash Externally Once a day for 30 days Active Itraconazole 100 MG 1 capsule after a me al Orally Once a day for 30 days 04/15/2022 Not-Taking Lidocaine-Prilocaine 2.5-2.5 % 1 gm to the right foot as directed Externally twice daily for 30 days Not-Taking Lactulose 10 GM 1 packet Orally bid Not-Taking Multivitamin Not-Oseas ing Vitamin E 400 UNIT 1 capsule Orally Onc e a day Not-Taking Finasteride 5 MG 1 tablet Orally Once a day Not-Taking Diclofenac Epolamine 1.3 % 1 patch as ne eded Externally Once a day for 30 days Not-Taking Vitamin D Not-Taking Mupirocin 2 % 1 application Externally Twice a day for 30 days 01/13/2022 Not-Taking Griseofulvin Ultramicrosize 250 MG 1 tablet after a meal Orally once a day for 90 days 01/13/2022 Not-Taking Ciclopirox 8 % 1 application Externally Once a day Not-Taking hydrOXYzine HCl 50 MG 1 tablet as needed Orally once a day for 30 day(s) 01/20/2021 Not-Taking Pantoprazole Sodium 20 MG 1 tablet Orall y Once a day Not-Taking Gabapentin 300 MG 1 capsule Orally bid Not-Taking Meclizine HCl 12.5 MG 2 tablets as neede d Orally 3 times daily Not-Taking predniSONE 20 MG 1 tablet Orally Once a day Not-Taking Diclofenac Sodium 1 % as directed Executive Administrative Assistant ally place 1 g onto the skin bid Active Losartan Potassium 25 MG 1 tablet Orally 0.5 tab Once a day Active Albuterol Sulfate 108 (90 Base) MCG/ACT 1 puff as needed Inhalation every 4 hrs Active Brilinta 90 MG 1 tablet Orally Twic e a day Not-Taking Atorvastatin Calcium 80 MG 1 tablet Oral ly Once a day Active Triamcinolone (oint)-Silicone Active Lidocaine 5 % 1 patch remove after 12 hours Externally Once a day Active Aspirin 81 MG 1 tablet Orally Once a day Active Sucralfate 1 GM/10ML 10 mL 1 hour before meals and at bedtime on an empty stomach Orally Four times a day Active Ketoconazole 2 % 1 application Externally Once a day Active Jublia 10 % 1 application Externally Once a day Active Voltaren Active Esomeprazole Magnesium 40 MG 1 capsule Orally Once a day Active traMADol HCl 50 MG 1 tablet as needed Orally Once a day Active VITAL SIGNS Weight 146.7 lbs 12/24/2023 Height 5ft 6in in 12/24/2023 BMI 23.68 kg/m2 12/24/2023 Heart Rate 62 /min 12/24/2023 Temperature 97.3 degrees Fahrenheit 12/24/19 24 Respiratory Rate 12 /min 12/24/2023 PROCEDURES Procedure Date Ordered Date Performed Result Body Sit e DRAIN/INJECT, SMALL JOINT/BURSA 12/24/2023 N/A Encounters Encounter Location Date Provider Diagnosis [facility] [address] [facility] [address] [place] [address] 12/24/2023 DESI LI Onychomycosis B35.1 ; Calcium pyrophosphate deposition disease (CPPD) M11.20 ; Psoriasis L40.9 ; Hallux limitus of left foot M20.5X2 ; Hallux limitus of right foot M20.5X1 and Lumbar radiculopathy, right M54.16 ASSESSMENTS Encounter Date Diagnosis Assessment Notes Treatment Notes Treatment Clinical Notes Section Notes 12/24/2023 Onychomycosis (ICD-10 - B35.1) I reviewed with [...] to apply to each affected toenail daily. 12/24/2023 Calcium pyrophosphate deposition disease (CPPD) (ICD-10 - [...] follows up with rheumatology regarding this issue. 12/24/2023 Psoriasis (ICD-10 - L40.9) We discussed that CPPD and psoriasis can go hand in hand. We discussed that he has tried many topical steroids without improvement or resolution. He had resolution with the tacrolimus, he does not need another refill today. 12/24/2023 Hallux limitus of left foot (ICD-10 - M20.5X2) I examined his orthotics which are still appropriate. We discussed his balance issues is not coming from his feet as the tread and wear on his shoes are equal. 12/24/2023 Hallux limitus of right foot (ICD-10 - M20.5X1) Consent was reviewed and signed by the patient for a steroid injection into the right 1st metatarsophalangeal joint. Pt agreed. 3cc total steroid injection was given into the right foot. Pt tolerated well. Post-Injection instructions were given to the patient. Pt instructed to ice/elevate the foot tonight. 12/24/2023 Lumbar radiculopathy, right (ICD-10 - M54.16) We [...] Name Sig Start Date Stop Date Notes Lidocaine-Prilocaine 2.5-2.5 % APPLY 1 G JANES OF CREAM TOPICALLY TO THE RIGHT AND LEFT FOOT TWICE DAILY DIRECTED Externally twice daily for 30 days Efinaconazole 10 % 1 application Executive Administrative Assistant ally Once a day for 90 days Tacrolimus 0.1 % 1 application to the right foot rash Externally Once a day for 30 days Treatment Notes Assessment Notes [...] need another refill today. Hallux limitus of left foot I examined h is orthotics which are still appropriate. We discussed his balance issues is not coming from his feet as the tread and wear on his shoes are equal. Hallux limitus of right foot Consent was reviewed and signed by the patient for a steroid injection into the right 1st metatarsophalangeal joint. Pt agreed. 3cc total steroid injection was given into the right foot. Pt tolerated well. Post-Injection instructions were given to the patient. Pt instructed to ice/elevate the foot tonight. Pending Test Test Name Order Date DRAIN/INJECT, SMALL JOINT/BURSA 12/24/19 24 Next Appt Details Follow Up: 3 Months, Reason: Provider Name:DESI LI, 07/10/2024 02:45:00 PM, [address] [facility] [address], [place], [address], MEDICATIONS ADMINISTERED Medication Instructions Date of Administration Dosage Notes dexAMETHasone Sod Phosphate PF 12/24/2023 0.5 m L Kenalog 12/24/2023 0.5 mL Progress Notes * Mckinley LEWISOB:1955 ([age] yo M)Acc No.[id number]:12/24/2023 Progress Note Patient:??Laina LEWIS Provider:??Desi Li DPM :1955?Age:68 Y?Sex:Cristian allen Date:12/24/2023 Address:[address] [place], [place] [id number] Pcp:Wayne Jaimes MD Subjective: * Chief Complaints: * ?3 month f/u * HPI: ?Constitutional:? This 68 y/o male returns to my office with a complaint of toenail fungus and bilateral foot pain. Last year, I [facility] following an aspiration. He is not on any treatment for this condition, but feels like the arthritis is slowly worsening. He is using the Jublia with improvement [...] states the pain comes and goes. He also brings his orthotics today for me to evaluate. He states the lidocaine cream does seem [...] Medical History:?? * Surgical History:??Append[place] [facility] otherwise normal to the cecum colonoscopy -2 [...] patient * Allergies:??N.K.D.A.no[Aller gies Verified] Objective: * Vitals:??Wt:146.7lbs, Ht: 5f t 6in, BMI:23.68Index, HR:62/min, Temp:97.3F, RR:12/min, Ht-cm: 167.64, Wt-k.54 kg. * Examination: ?General Examination: ?GENERAL: Patient [...] bilaterally, protective sensation intact 10/10 with 5.07 [place] Alisha bilaterally, vibratory sensation with tuning fork [...] debris and thickening of the toenail with 60% proximal clearance. Normal skin temperature, normal skin [...] another refill today. ? 4.??Hallux limitus of left f oot?? Notes: I examined his orthotics which are still appropriate. We discussed his balance issues is not coming from his feet as the tread and wear on his shoes are equal. ? 5.??Hallux limitus of right foot?Procedure: DRAIN/INJECT, SMALL JOINT/BURSA Notes: Consent was reviewed and signed by the patient for a steroid injection into the right 1st metatarsophalangeal joint. Pt agreed. 3cc total steroid injection was given into the right foot. Pt tolerated well. Post-Injection instructions were given to the patient. Pt instructed to ice/elevate the foot tonight. ? 6.??Lumbar radiculopathy, ri ght?? Refill Lidocaine-Prilocaine Cream, 2.5-2.5 [...] by Jesús ALEXISP.M (Hallux limitus of right foot)? Kenalog : 0.5 mL (Dose No:1) given by Jesús ALEXISPUsamaM (Hallux limitus of right foot) * Procedure Codes:?? DRAI N/INJECT, SMALL JOINT/BURSA, Modifiers: RT J1100 INJ DEXAMETHASONE SODIM PHOSHATE 1 [id number] INJ TRIAMCINOLONE ACETONIDE 10 MG * Follow Up:??3 Months * Billing Information: * Visit Code:?? 11094 Office Visit, Est Pt., Level 3. Modifiers: 25 * Procedure Codes:?? DRAIN/INJECT, SMALL JOINT/BURSA. Modifiers: RT J1100 INJ DEXAMETHASONE SODIM PHOSHATE 1 MG. J3301 INJ TRIAMCINOLONE ACETONIDE 10 MG. * Sign off status: Completed true * Provider:??Desi Li DPM Date: ??12/24/2023 History and Physical Notes * HPI (History of Present Illness) Category Sub-Category Detail Notes Category Not es Constitutional This 68 y/o m lenny returns to my office with a complaint of toenail fungus and bilateral foot pain. Last year, I referred him [facility] for [facility]PPD following an aspiration. He is not on any treatment for this condition, but feels like the arthritis is slowly worsening. He is using the Jublia with improvement [...] states the pain comes and goes. He also brings his orthotics today for me to evaluate. He states the lidocaine cream does seem [...] bilaterally, protective sensation intact 10/10 with 5.07 [place] Alisha bilaterally, vibratory sensation with tuning fork [...] debris and thickening of the toenail with 60% proximal clearance. Normal skin temperature, normal skin [...]
--- OUTSIDE RECORDS SUMMARY | 2024-06-08 13:54 | XMS_ITS | Continuity of Care Document ---
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 Date(s): 03/18/20 - 03/25/20 [facility] [address] [place] [address]- [facility] Encounter Diagnosis Rash(Discharge Diagnosis) - 03/18/20 Attending Physician: Martin DURHAM, Sylvain Mac Referring Physician: Brett Velásquez MD Allergies, Adverse [...] 11/20/13 12:42:29 Start Date: 11/20/13 Status: Ordered Problem List Diagnosis Diagnosis Type Effective Dates Health Status Clini nikia Service Informant Rash Discharge Diagnosis 03/18/20 Vital Signs Most recent to oldest [Reference Range]: 1 Height 172.7 cm (03/18/20 10:39 AM) Oxygen Saturation [94-100 %] 100 % (03/18/20 10:39 AM) Pulse Rate [55-90 bpm] 83 bpm (03/18/20 10:39 AM) Blood Pressure [90-138/55-84 mm Hg] 142/ 75mm Hg *H* (03/18/20 10:39 AM) Respiratory Rate [16-30 br/min] 19 br/mi n (03/18/20 10:39 AM) Temperature [96.8-100.4 DegF] 98.2 DegF (03/18/20 10:39 AM) Mode of Delivery (Oxygen) Room air (03/18/20 10:39 AM) Blood pressure sites Arm, left (03/18/20 10:39 AM) Temperature Route Temporal (03/18/20 10:39 AM)
--- OUTSIDE RECORDS SUMMARY | 2024-06-08 13:54 | XMS_ITS ---
Author Organization [facility] Address [address] [facility] [address] [place] [address] Care Team Providers Care Strategy Lead Name Role Phone Wayne Jaimes MD Primary Care Provider DESI Burks Unavailable [phone] ALLERGIES No Known Allergies REASON FOR VISIT 3 month f/u MEDICATIONS Medication SIG (Take, Route, Frequency, Duration) Notes Start Date End Date Status Lidocaine-Prilocaine 2.5-2.5 % APPLY 1 GRAM TOPICALLY TO THE RIGHT AND LEFT FOOT TWICE A DAILY DIRECTED for 38 Active Efinaconazole 10 % 1 application Externally Once a day for 90 days Active Griseofulvin Ultramicrosize 250 MG 1 tablet after a meal Orally once a day for 45 days Not-Taking Tacrolimus 0.1 % 1 application to the right foot rash Externally Once a day for 30 days Active Lidocaine-Prilocaine 2.5-2.5 % APPLY 1 GRAM OF CREAM TOPICALLY TO THE RIGHT AND LEFT FOOT TWICE DAILY DIRECTED Externally twice daily for 30 days Active Itraconazole 100 MG 1 capsule after a me al Orally Once a day for 30 days 04/15/2022 Not-Taking Tamsulosin HCl 0.4 MG 1 capsule Orally O nce a day Not-Taking Multivitamin Not-Oseas ing Lactulose 10 GM 1 packet Orally bid Not-Taking Vitamin E 400 UNIT 1 capsule Orally Onc e a day Not-Taking Diclofenac Epolamine 1.3 % 1 patch as ne eded Externally Once a day for 30 days Not-Taking Griseofulvin Ultramicrosize 250 MG 1 tablet after a meal Orally once a day for 90 days 01/13/2022 Not-Taking Mupirocin 2 % 1 application Externally Twice a day for 30 days 01/13/2022 Not-Taking Finasteride 5 MG 1 tablet Orally Once a day Not-Taking Vitamin D Not-Taking Meclizine HCl 12.5 MG 2 tablets as neede d Orally 3 times daily Not-Taking Gabapentin 300 MG 1 capsule Orally bid Not-Taking Pantoprazole Sodium 20 MG 1 tablet Orall y Once a day Not-Taking hydrOXYzine HCl 50 MG 1 tablet as needed Orally once a day for 30 day(s) 01/20/2021 Not-Taking Ciclopirox 8 % 1 application Externally Once a day Not-Taking Diclofenac Sodium 1 % as directed Finance Specialist ally place 1 g onto the skin bid Active Albuterol Sulfate 108 (90 Base) MCG/ACT 1 puff as needed Inhalation every 4 hrs Active Brilinta 90 MG 1 tablet Orally Twic e a day Not-Taking predniSONE 20 MG 1 tablet Orally Once a day Not-Taking Losartan Potassium 25 MG 1 tablet Orally 0.5 tab Once a day Active Atorvastatin Calcium 80 MG 1 tablet Oral ly Once a day Active Aspirin 81 MG 1 tablet Orally Once a day Active Lidocaine 5 % 1 patch remove after 12 hours Externally Once a day Active Triamcinolone (oint)-Silicone Active Sucralfate 1 GM/10ML 10 mL 1 hour before meals and at bedtime on an empty stomach Orally Four times a day Active Ketoconazole 2 % 1 application Externally Once a day Active Voltaren Active Jublia 10 % 1 application Externally Once a day Active Esomeprazole Magnesium 40 MG 1 capsule Orally Once a day Active traMADol HCl 50 MG 1 tablet as needed Orally Once a day Active PROBLEMS Problem Type ICD Code Onset Dates Problem Status W/U Status Risk SNOMED Code Notes Problem Lumbar radiculopat hy, right (M54.16) Active confirmed Lumbar radiculopathy ([id number]) PROCEDURES Procedure Date Ordered Date Performed Result Body Sit e DRAIN/INJECT, SMALL JOINT/BURSA 04/10/2024 N/A Encounters Encounter Location Date Provider Diagnosis [facility] [address] [address] 04/10/2024 DESI LI Onychomycosis B35.1 ; Calcium pyrophosphate deposition disease (CPPD) M11.20 ; Psoriasis L40.9 ; Hallux limitus of left foot M20.5X2 ; Hallux limitus of right foot M20.5X1 ; Lumbar radiculopathy, right M54.16 ; Achilles tendinitis, right leg M76.61 and Achilles tendinitis, left leg M76.62 ASSESSMENTS Encounter Date Diagnosis Assessment Notes Treatment Notes Treatment Clinical Notes Section Notes 04/10/2024 Onychomycosis (ICD-10 - B35.1) I reviewed with [...] to apply to each affected toenail daily. 04/10/2024 Calcium pyrophosphate deposition disease (CPPD) (ICD-10 - [...] follows up with rheumatology regarding this issue. 04/10/2024 Psoriasis (ICD-10 - L40.9) We discussed that CPPD and psoriasis can go hand in hand. We discussed that he has tried many topical steroids without improvement or resolution. He had resolution with the tacrolimus, he does not need another refill today. 04/10/2024 Hallux limitus of left foot (ICD-10 - M20.5X2) I examined his orthotics which are still appropriate. We discussed his balance issues is not coming from his feet as the tread and wear on his shoes are equal. 04/10/2024 Hallux limitus of right foot (ICD-10 - M20.5X1) Consent was reviewed and signed by the patient for a steroid injection into the right 1st metatarsophalangeal joint. Pt agreed. 3cc total steroid injection was given into the right foot. Pt tolerated well. Post-Injection instructions were given to the patient. Pt instructed to ice/elevate the foot tonight. 04/10/2024 Lumbar radiculopathy, right (ICD-10 - M54.16) We [...] under the right 4th and 5th toes. 04/10/2024 Achilles tendinitis, right leg (ICD-10 - M76.61) He has evidence of Achilles tendinitis bilaterally on examination today. We discussed his morning pain is the most significant. We discussed using night splint to bed. I explained these can stretch the Achilles while he is sleeping to avoid the sharp pain when he steps down in the morning. He is in agreement with this plan. RX for bilateral night splints dispensed to the patient. 04/10/2024 Achilles tendinitis, left leg (ICD-10 - M76.62) PLAN OF TREATMENT Medication Medication Name Sig Start Date Stop Date Notes Efinaconazole 10 % 1 application Finance Specialist ally Once a day for 90 days [...] Pt instructed to ice/elevate the foot tonight. Achilles tendinitis, right leg He has ev idence of Achilles tendinitis bilaterally on examination today. We discussed his morning pain is the most significant. We discussed using night splint to bed. I explained these can stretch the Achilles while he is sleeping to avoid the sharp pain when he steps down in the morning. He is in agreement with this plan. RX for bilateral night splints dispensed to the patient. Pending Test Test Name Order Date DRAIN/INJECT, SMALL JOINT/BURSA 04/10/20 24 Next Appt Details Follow Up: 3 Months, Reason: Provider Name:DESI LI, 07/10/2024 02:45:00 PM, [address], [address], MEDICATIONS ADMINISTERED Medication Instructions Date of Administration Dosage Notes dexAMETHasone Sod Phosphate PF 04/10/2024 0.5 m L Kenalog 04/10/2024 0.5 mL Progress Notes * Mckinley LEWISOB:1955 ([age] yo M)Acc No.[id number]:04/10/2024 Progress Note Patient:??Laina LEWIS Provider:??Desi Li DPM :1955?Age:68 Y?Sex:Cristian allen Date:04/10/2024 Address:[address] [place], [place] [id number] Pcp:Wayne Jaimes MD Subjective: * Chief Complaints: * ?3 month f/u * HPI: ?Constitutional:? This 68 y/o male returns to my office with a complaint of toenail fungus and bilateral foot pain. Previously, I referred him to the Arthritis treatment [...] states the pain comes and goes. He complains of pain on the back of his heels when he first gets up in the morning. He states it is a sharp pain, and he has a hard time walking around for the first half an hour of his day. He states the lidocaine cream does seem [...] Medical History:?? * Surgical History:??Appendect amos colonoscopy [facility]-hemorrhoids otherwise normal to the cecum colonoscopy -2 [...] Solution 1 application Externally Once a day Tacrolimus 0.1 % Ointment 1 application to the right foot rash Externally Once a day Lidocaine-Prilocaine 2.5-2.5 % Cream APPLY 1 GRAM TOPICALLY TO THE RIGHT AND LEFT FOOT TWICE A DAILY DIRECTED Taking Ketoconazole 2 % Cream 1 application [...] 1 application Externally Once a day Taking Tacrolimus 0.1 % Ointment 1 application to the right foot rash Externally Once a day Taking Lidocaine-Prilocaine 2.5-2.5 % Cream APPLY 1 GRAM TOPICALLY TO THE RIGHT AND LEFT FOOT TWICE A DAILY DIRECTED Not-TakingBrilinta 90 MG Tablet 1 tablet Orally [...] Ointment 1 application Externally Twice a day Itraconazole 100 MG Capsule 1 capsule after a meal Orally Once a day Multivitamin Lactulose 10 GM Packet 1 packet Orally bid Vitamin E 400 UNIT Capsule 1 capsule Orally Once a day Tamsulosin HCl 0.4 MG Capsule 1 capsule Orally Once a day Griseofulvin Ultramicrosize 250 MG Tablet 1 tablet after a meal Orally once a day Not-Taking Brilinta 90 MG Tablet 1 tablet Orally Twice a day Not-Taking predniSONE 20 MG Tablet 1 tablet Orally Once a day Not-Taking Ciclopirox 8 % Solution 1 application Externally Once a day Not- Taking Pantoprazole Sodium 20 MG Tablet Delayed Release [...] application Externally Twice a day Not- Taking Itraconazole 100 MG Capsule 1 capsule after a meal Orally Once a day Not-Taking Multivitamin Not-Taking Lactulose 10 GM Packet 1 packet Orally bid Not-Taking Vitamin E 400 UNIT Capsule 1 capsule Orally Once a day Not-Taking Tamsulosin HCl 0.4 MG Capsule 1 capsule Orally Once a day Not-Taking Griseofulvin Ultramicrosize 250 MG Tablet 1 tablet after a meal Orally once a day * Allergies:??N.K.D.A.no[Aller gies Verified] Objective: * Examination: ?General Examination: ?GENERAL: Patient appears [...] bilaterally, protective sensation intact 10/10 with 5.07 [place] Alisha bilaterally, vibratory sensation with tuning fork diminished to the tibial tuberosity bilaterally, position sense intact bilaterally to the tibial tuberosity. ?ORTHOPEDIC: Good muscle strength 4+/5 of all flexors and extensors. Dorsi flexion of ankle , 0 degrees, plantar flexion WNL. No muscle atrophy. Tenderness on palpation of the distal achilles tendon bilaterally. Pain on palpation of the achilles insertion bilaterally. ?DERMATOLOGICAL: Yellowed discoloration of the left 1st, 4th and 5th toenails and right hallux with subungual debris and thickening of the toenail with 75% proximal clearance. Normal skin temperature, normal skin [...] right foot - M20.5X1??6.??Lumbar radiculopathy, right - M54.16??7.??Achilles tendinitis, right leg - M76.61??8.??Achilles tendinitis, left leg - M76.62?? Plan: * Treatment: 2.??Onychomycosis?? Start Efinaconazole Solution, [...] to each affected toenail daily. ? 3.??Psoriasis?? Notes: We discussed that CPPD and psoriasis [...] the right 4th and 5th toes. ? 7.??Achilles tendinitis, rig ht leg?? Notes: He has evidence of Achilles tendinitis bilaterally on examination today. We discussed his morning pain is the most significant. We discussed using night splint to bed. I explained these can stretch the Achilles while he is sleeping to avoid the sharp pain when he steps down in the morning. He is in agreement with this plan. RX for bilateral night splints dispensed to the patient.? * Procedures:?Procedure: The right foot was prepped [...] : 0.5 mL (Dose No:1) given by DESI LI D.P.M (Hallux limitus of right foot)? Kenalog : 0.5 mL (Dose No:1) given by DESI LI D.P.M (Hallux limitus of right foot) * Procedure Codes:?? DRAI N/INJECT, SMALL JOINT/BURSA, Modifiers: RT J1100 INJ DEXAMETHASONE SODIM PHOSHATE 1 [id number] INJ TRIAMCINOLONE ACETONIDE 10 MG * Follow Up:??3 Months * Billing Information: * Visit Code:?? 59942 Office Visit, Est Pt., Level 4. Modifiers: 25 * Procedure Codes:?? DRAIN/INJECT, SMALL JOINT/BURSA. Modifiers: RT J1100 INJ DEXAMETHASONE SODIM PHOSHATE 1 MG. J3301 INJ TRIAMCINOLONE ACETONIDE 10 MG. * Sign off status: Completed true * Provider:??Desi Li DPM Date: ??04/10/2024 History and Physical Notes * HPI (History of Present Illness) Category Sub-Category Detail Notes Category Not es Constitutional This 68 y/o m lenny returns to my office with a complaint of toenail fungus and bilateral foot pain. Previously, I referred him to the Arthritis treatment [...] states the pain comes and goes. He complains of pain on the back of his heels when he first gets up in the morning. He states it is a sharp pain, and he has a hard time walking around for the first half an hour of his day. He states the lidocaine cream does seem [...] bilaterally, protective sensation intact 10/10 with 5.07 [place] Alisha bilaterally, vibratory sensation with tuning fork diminished to the tibial tuberosity bilaterally, position sense intact bilaterally to the tibial tuberosity. ORTHOPEDIC: Good muscle strength 4+/5 of all flexors and extensors. Dorsi flexion of ankle , 0 degrees, plantar flexion WNL. No muscle atrophy. Tenderness on palpation of the distal achilles tendon bilaterally. Pain on palpation of the achilles insertion bilaterally. DERMATOLOGICAL: Yellowed discoloration of the left 1st, 4th and 5th toenails and right hallux with subungual debris and thickening of the toenail with 75% proximal clearance. Normal skin temperature, normal skin [...]
--- OUTSIDE RECORDS SUMMARY | 2024-06-08 13:54 | XMS_ITS | Continuity of Care Document ---
Author Organization [facility] Address [address] [place] [address]- Care Team Providers Care Bottom Sprayer Name Role Phone Wayne Jaimes MD Primary Care Physician Encounter [facility] Date(s): 01/28/23 - 02/04/23 [facility] [address], [place] [address] Encounter Diagnosis Cough(Discharge Diagnosis) - 01/28/23 Attending Physician: Willi Carson MD Referring Physician: [...] influenza virus vaccine, inactivated 04/19/12 Landon rded [id number] bivalent booster vax 04/01/22 Recorded SARS-CoV-2 mRNA ([id number]) vax 10/11/21 Recorded SARS-CoV-2 (COVID-19) mRNA BNT-162b2 [...] Refills, Maintenance, 09/10/22 15:25:00 EST, EC Tablet, [facility], Partial fill upon patient request if the prescription is for a schedule II opioid drug., 168, cm, 09/10/22 14:59:00 EST, Height,... Start Date: 09/10/22 Status: Ordered atorvastatin 80 mg oral tablet 1 tablet = 80 mg, By Mouth, Daily at bedtime, # 30 tablet, 3 Refills, Maintenance, 09/10/22 15:25:00 EST, Tablet, [facility], Partial fill upon patient request if the prescription is for a schedule II opioid drug., 168, cm, 09/10/22 14:5... Start Date: 09/10/22 Status: Ordered benzonatate 200 mg oral capsule 1 capsule = 200 mg, By Mouth, 3 times a day, PRN as needed for cough, for 14 days, # 42 capsule, 0 Refills, Acute 02/15/23 16:11:00 EDT, 02/01/23 16:11:00 EDT, Capsule, [facility], Partialfill upon patient request if the prescription is fo... Start Date: 02/01/23 Stop Date: 02/15/23 Status: Ordered codeine-guaifenesin 10 mg-100 mg/5 mL oral syrup 10 mL, By Mouth, Every 4 hours, PRN for cough, for 7 days, may cause drowsiness. do not take if driving., # 120 mL, 0 Refills, Acute 02/10/23 12:06:00 EDT, 02/03/23 12:06:00 EDT, Syrup, [facility], Partial fill upon patient request [...] 0 Refills, Maintenance, 02/01/23 16:11:00 EDT, [facility], Partial fill upon patient [...] opioid drug. Start Date: 09/08/22 Status: Ordered predniSONE 20 mg oral tablet 2 tablet = 40 mg, By Mouth, Daily, for 5 days, with food or milk, # 10 tablet, 0 Refills, Acute 02/06/23 16:10:00 EDT, 02/01/23 16:10:00 EDT, Tablet, [facility], Partial fill upon patient request if the prescription is for a schedule II opi... Start Date: 02/01/23 Stop Date: 02/06/23 Status: Ordered ProAir HFA 90 mcg/inh inhalation aerosol 2 puffs, Inhalation, 4 times a day, PRN as needed for wheezing, # 18 Gm, 0 Refills, Maintenance, 02/01/23 16:10:00 EDT, Aerosol, [facility], Partial fill upon patient request if the prescription is for a schedule II opioid drug., 2 puffs In... Start Date: 02/01/23 Status: Ordered ticagrelor 90 mg oral tablet 1 tablet = 90 mg, By Mouth, 2 times a day, # 60 tablet, 3 Refills, Maintenance, 09/10/22 15:25:00 EST, Tablet, [facility], Partial fill upon patient request if the prescription is for aschedule II opioid drug., 168, cm, 09/10/22 14:59:0... Start Date: 09/10/22 Status: Ordered triamcinolone 0.1% topical cream APPLY CREAM EXTERNALLY TO AFFECTED AREAS OF ECZEMA ON EXTREMITITES WITH A MOISTURIZER TWICE DAILY NEEDED Start Date: 09/08/22 Status: Ordered Problem List Diagnosis Diagnosis Type Effective Dates Health Status Clini [facility] Service Informant Cough Discharge Diagnosis 01/28/23 Vital Signs Most recent to oldest [Reference Range]: 1 2 Height 168 cm (01/28/23 2:22 PM) 168 cm (01/28/23 2:05 PM) Oxygen Saturation [94-100 %] 99 % (01/28/23 2:05 PM) Pulse Rate [55-90 bpm] 102 bpm *H* (01/28/23 2:05 PM) Blood Pressure [90-138/55-84 mm Hg] 129/ 81mm Hg (01/28/23 2:05 PM) Respiratory Rate [16-30 br/min] 18 br/mi n (01/28/23 2:05 PM) Temperature [96.8-100.4 DegF] 99.2 DegF (01/28/23 2:22 PM) 99.0 DegF (01/28/23 2:05 PM) Mode of Delivery (Oxygen) Room air (01/28/23 2:05 PM) Blood pressure sites Arm, left (01/28/23 2:05 PM) Temperature Route Oral (01/28/23 2:22 PM) Temporal (01/28/23 2:05 PM) Note * Soraya Motta: PERFORM, SIGN, VERIFY Event Display: Patient Education/Instruction Authored Date: [id number] [facility] Clinical Summary Name ADDIE GARCIA Age 67 Years 1955 PCP Fiona DURHAM, Wayne Desouza PCP Visit Date 01/28/2023 13:48:00 Additional Instructions: Scheduled Appointments?? Future Appointments ?No Future Appointments Scheduled Follow-Up Instructions ?? Diagnosis Cough, unspecified Medications: Please continue your medications until treatment [...] COUGH,WHEEZE, OR SHORTNESS OF BREATH. Next Dose: Aspirin (aspirin 81 mg oral [...] NKA Medications Given This Visit Future Orders ?COVID-19 (2019 Novel Coronavirus) PCR? Order Date:01/28/23?- Complete within?3 days Vital Signs Height 168 cm Weight BMI Blood Pressure 129 mm Hg/81 mm Hg Temperature 99.2 DegF Pulse Rate 102 bpm Respiratory Rate 18 br/min 02 Sat Mode of Delivery 99 %/Room air You can now view a summary of your hospital visit from the comfort of your home through a free online portal called [employer]. [employer] is a website that allows you to securely view your medical information including discharge summary, medications and follow-up visits. ??You can alsosend a secure electronic message to your doctor???s office to request appointments, renew medications or just ask a question. You can enroll at [email or web address] or register during your next office visit. [...] primary care provider, you may find a [facility] provider by calling [facility] at [phone]. For information about the plan of care including goals and instructions for your diagnosis, please see the patient education orders section of this document. Patient Education Materials?? The content of this educational material or handout may have been modified, supplemented, or adapted from its original content and format to support your individualized medical care. * Ashley Del Valle: PERFORM, SIGN, VERIFY Event Display: Patient Education/Instruction Authored Date: [id number] [facility] *[facility] Clinical Summary Name ADDIE GARCIA Age 67 Years 1955 PCP Fiona DURHAM, Wayne Desouza PCP Visit Date 01/28/2023 13:48:00 Additional Instructions: Scheduled Appointments?? Future Appointments ?No Future Appointments Scheduled Follow-Up Instructions ?? Diagnosis Cough, unspecified Medications: Please continue your medications until treatment [...] COUGH,WHEEZE, OR SHORTNESS OF BREATH. Next Dose: Aspirin (aspirin 81 mg oral [...] NKA Medications Given This Visit Future Orders ?COVID-19 (2019 Novel Coronavirus) PCR? Order Date:01/28/23?- Complete within?3 days ?Chest 2 Views Frontal and Lat? Order Date:01/28/23?- Complete on or after?01/28/23 Vital Signs Height 168 cm Weight BMI Blood Pressure 129 mm Hg/81 mm Hg Temperature 99.2 DegF Pulse Rate 102 bpm Respiratory Rate 18 br/min 02 Sat Mode of Delivery 99 %/Room air You can now view a summary of your hospital visit from the comfort of your home through a free online portal called [employer]. [employer] is a website that allows you to securely view your medical information including discharge summary, medications and follow-up visits. ??You can alsosend a secure electronic message to your doctor???s office to request appointments, renew medications or just ask a question. You can enroll at [email or web address] or register during your next office visit. [...] primary care provider, you may find a [facility] provider by calling [facility] at [phone]. For information about the plan of care [...] RN Member Role: Primary Care Nurse Name: Wyane Jaimes MD Position: Reference Physician Member Role: PCP Address: Address: [address] [place] [address] [place] [address]- Care Team Related Persons Name: ERVIN GARCIA Address: [address] [address] Name: LEXII MILLIGAN
--- OUTSIDE RECORDS SUMMARY | 2024-06-08 13:54 | XMS_ITS | Continuity of Care Document ---
Author Organization [facility] Address [address] [place] [address]- Care Team Providers Care Egg Trayer Name Role Phone Christen DURHAM, Brett Primary Care Physician [place] [facility] [place](s[place] 09/11/20 - 10/11/20 [facility] [address], [place] [address] Attending Physician: Not on Staff, Attending MD Allergies, Adverse Reactions, Alerts Substance Reaction [...]
--- OUTSIDE RECORDS SUMMARY | 2024-06-08 13:54 | XMS_ITS | Continuity of Care Document ---
Author Organization [facility] ter Address [address] [place] [id number]- Care Team Providers Care Orthopedic Assistant Name Role Phone Not on Staff, PCP Primary Care Physician Unavail able Encounter [facility] Date(s): 09/08/22 - 09/10/[address] [address]- Encounter Diagnosis Acute NH(Final) - 09/08/22 STEMI (ST elevation myocardial infarction)(Final) - 09/08/22 Chest pain(Final) - 09/08/22 Discharge Disposition: A-D/C Home Attending Physician: Travon Robin DO Admitting Physician: Travon Robin DO Referring Physician: Not on Staff, Referring MD Allergies, Adverse Reactions, Alerts No Known [...] influenza virus vaccine, inactivated 04/19/12 Landon rded [id number] bivalent booster vax 04/01/22 Recorded SARS-CoV-2 mRNA ([id number]) vax 10/11/21 Recorded SARS-CoV-2 (COVID-19) mRNA BNT-162b2 [...] Refills, Maintenance, 09/10/22 15:25:00 EST, EC Tablet, [facility], Partial fill upon patient request if the prescription is for a schedule II opioid drug., 168, cm, 09/10/22 14:59:00 EST, Height,... Start Date: 09/10/22 Status: Ordered atorvastatin 80 mg oral tablet 1 tablet = 80 mg, By Mouth, Daily at bedtime, # 30 tablet, 3 Refills, Maintenance, 09/10/22 15:25:00 EST, Tablet, [facility], Partial fill upon patient request [...] opioid drug. Start Date: 09/08/22 Status: Ordered gabapentin 300 mg oral capsule TAKE 1 CAPSULE BY MOUTH TWICE DAILY Start Date: 09/08/22 Status: Ordered gabapentin 300 mg oral capsule 300 mg, Capsule, By Mouth, 09/10/22 9:00:00 EST Start Date: 09/10/22 Stop Date: 09/10/22 Status: Completed ketorolac 0.5% ophthalmic solution 1 drops, Eye, [...] opioid drug. Start Date: 09/08/22 Status: Ordered ticagrelor 90 mg oral tablet 1 tablet = 90 mg, By Mouth, 2 times a day, # 60 tablet, 3 Refills, Maintenance, 09/10/22 15:25:00 EST, Tablet, [facility], Partial fill upon patient request if the prescription is for aschedule II opioid drug., 168, cm, 09/10/22 14:59:0... Start Date: 09/10/22 Status: Ordered triamcinolone 0.1% topical cream APPLY CREAM EXTERNALLY TO AFFECTED AREAS OF ECZEMA ON EXTREMITITES WITH A MOISTURIZER TWICE DAILY NEEDED Start Date: 09/08/22 Status: Ordered Results Radiology Reports * Exam Date Time Procedure Performing Provider Status 09/08/22 10:25 AM Chest Portable Soraya Cochran; Peter (Verified) Notes: (Chest Portable) Reason For Exam: Chest Pain;Other: RESULT: Chest Portable Chest Portable INDICATION:; Chest Pain; Clinical Question(s): CHF COMPARISON: None. FINDINGS: LINES AND TUBES: None. LUNGS AND PLEURA: Low lung volumes. Clear lungs. Normal pulmonary vascularity. Mild elevation of the right hemidiaphragm probably due to eventration with minimal subsegmental atelectasis right lung base. No pleural effusion. No pneumothorax. HEART, MEDIASTINUM AND KIZZY: Heart is normal in size. Normal mediastinal and hilar contour. BONES AND SOFT TISSUES: No acute abnormality. Multiple cam overlie the soft tissues of the neck. IMPRESSION: No radiographic evidence of an acute cardiopulmonary process. I have personally reviewed the images and I agree with this report. WSN: [id number] Ordering Physician: Shona Magdaleno Dictated By: Neetu Motta MD Dictated Date/Time: 09/08/22 11:08 a Reviewed By: Papo Thompson MD, V Signed By: Papo Thompson MD, V Signed Date/Time: 09/08/22 11:13 am Transcribed By: CORBY Transcribed Date/Time: 09/08/22 10:46 am Vital Signs Most recent to oldest [Reference Range]: 1 2 3 Height 168 cm (09/10/22 2:59 PM) 168 cm (09/10/22 11:13 AM) 168 cm (09/10/22 8:01 AM) Weight 63.9 kg (09/09/22 4:46 PM) 62.6 kg (09/09/22 5:42 AM) 64.2 kg (09/08/22 1:26 PM) Oxygen Saturation [94-100 %] 99 % (09/10/22 2:59 PM) 96 % (09/10/22 11:13 AM) 97 % (09/10/22 8:01 AM) Pulse Rate [55-90 bpm] 53 bpm *L* (09/10/22 2:59 PM) 50 bpm *L* (09/10/22 11:13 AM) 51 bpm *L* (09/10/22 8:01 AM) Body Mass Index [18.5-24.99 kg/m2] 22.64 kg/m2 (09/09/22 4:46 PM) 22.75 kg/m2 (09/08/22 11:54 AM) Blood Pressure [90-138/55-84 mm Hg] 123/79mm Hg (09/10/22 2:59 PM) 143/79mm Hg *H* (09/10/22 11:13 AM) 134/89mm Hg (09/10/22 8:01 AM) Respiratory Rate [16-30 br/min] 18 br/min (09/10/22 2:59 PM) 18 br/min (09/10/22 11:13 AM) 16 br/min (09/10/22 11:04 AM) Temperature [96.8-100.4 DegF] 98.1 DegF (09/10/22 2:59 PM) 98.3 DegF (09/10/22 11:13 AM) 98.0 DegF (09/10/22 8:01 AM) Mode of Delivery (Oxygen) Room air (09/10/22 2:59 PM) Room air (09/10/22 11:13 AM) Room air (09/10/22 8:01 AM) Blood pressure sites Arm, left (09/10/22 2:59 PM) Arm, right (09/10/22 11:13 AM) Arm, right (09/10/22 8:01 AM) Temperature Route Oral (09/10/22 2:59 PM) Oral (09/10/22 11:13 AM) Oral (09/10/22 8:01 AM) Dry Weight 64.2 kg (09/08/22 11:54 AM) Weight Obtained Via Bed scale (09/09/22 4:46 PM) Bed scale (09/09/22 5:42 AM) Bed scale (09/08/22 1:26 PM) Dry Weight Obtained Via Bed scale (09/08/22 11:54 AM) Note * Event Display: Cardiac Rhythm Strips Authored Date: * Bette Belcher RN: PERFORM Event Display: Discharge/Transfer Note Hospital Authored Date: [id number] Nursing Discharge Note Entered On: 09/10/2022 17:44 EST Performed On: 09/10/2022 17:44 EST by Bette Belcher RN Nursing Discharge Note 2 Discharge Time : 09/10/2022 17:40 EST Discharge Level of Care at Discharge : Home/Jail/Foster Care Patient Left Unit Via : Wheelchair Patient Accompanied Off Unit with : Responsible adult DC Instructions Provided & Signed by Pt : Yes Patient Understands D/C Instructions : Yes Patient Instructions Discharge Signed : Yes Did Pt have Specialty Bed or Wound Vac : No Bette Belcher RN - 09/10/2022 17:44 EST * Nella Martinez NP: PERFORM Event Display: Discharge/Transfer Note Hospital Authored Date: [id number] Patient: ??ADDIE GARCIA ? Age:??66 Years?Sex:??Male?:??1955?? Patient Information Discharge Location: Primary Care Physician: Not on Staff, PCP Admit Date/Time: 09/08/22 10:35 Discharge Disposition Discharge Disposition: Home: No Services Discharge Diagnosis Acute NH (I21.9) Chest pain (R07.9) STEMI (ST elevation myocardial infarction) (I21.3) ?? _ Discharge Medications Albuterol (Albuterol (Eqv-ProAir HFA) 90 mcg/inh inhalation aerosol)?INHALE 2 PUFFS BY MOUTH EVERY 4 HOURS NEEDED FOR COUGH,WHEEZE, OR SHORTNESS OF BREATH Aspirin (aspirin 81 mg oral delayed release tablet)?81?Milligram?By Mouth?Daily Atorvastatin (atorvastatin 80 mg oral tablet)?1?tab(s)?80?Milligram?By Mouth?Daily at bedtime Diclofenac Topical (diclofenac 1% topical gel)?APPLY 4 GRAMS TOPICALLY THREE TIMES DAILY Esomeprazole (esomeprazole 20 mg oral enteric coated capsule)?1?capsule?20?Milligram?TAKE 1 CAPSULE BY MOUTH TWICE DAILY ON AN EMPTY STOMACH BEFORE MEAL(S) WAIT THIRTY MINUTES AND EAT TO ACTIVATE THE MEDICATION TAKE BEFORE BREAKFAST AND SUPPER Finasteride (finasteride 5 mg oral tablet)?1?tab(s)?5?Milligram?By Mouth?Daily Gabapentin (gabapentin 300 mg oral capsule)?TAKE 1 CAPSULE BY MOUTH TWICE DAILY Meclizine (meclizine 12.5 mg oral tablet)?1?tab(s)?12.5?Milligram?By Mouth?3 times a day?as needed?for dizziness Ticagrelor (ticagrelor 90 mg oral tablet)?1?tab(s)?90?Milligram?By Mouth?2 times a day Triamcinolone Topical (triamcinolone 0.1% topical cream)?APPLY CREAM EXTERNALLY TO AFFECTED AREAS OF ECZEMA ON EXTREMITITES WITH A MOISTURIZER TWICE DAILY NEEDED ? Medications Started ASA Atorvastatin 80 mg daily Ticagrelor 90 mg BID Medications Discontinued Diclofenax indomethacin Hospital Course Mr Garcia is a 66-year-old male with past medical history of GERD, CKD, disc herniation, arthritis in his bilateral knees, gout, and BPH who presents the hospital on 09/08 with CP found to have an inferior STEMI. EKG showing EMMA??in leads II,III,??and AVF. 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 Echo shows a preserved EF 60-65 with basil wall HK.? On note, pt did report that he previously had been experiencing exertional CP approximately 1 year ago??in which he had reported to PCP who referred him to a supervisor glycerin. During this time, pt reports he had an echo and stress test done which were found to be normal. ?? Post cath patient was noted to be bradycardiac into the 40s.Low dose Metoprolol was trialed but patient was??unable to tolerate it due to dizziness. Orthostatic B/ps negative. Appears pt is on chronic meclizine for vertigo at home. ? Objective Assessment and Plan Assessment:? Mr Garcia??is a 66-year-old male with past medical history of GERD, CKD, disc herniation, arthritis??in his??bilateral knees, gout, and??BPH who presents??the hospital on 09/08 with CP found to have an??inferior STEMI now S/p RICA to the mid RCA. Echo shows a preserved EF 60-65 with basil wall HK. ?? Inferior STEMI s/p RICA RCA Bradycardia Pt reports he was out shoveling when suddenly developed substernal CP with nausea and SOB promptinghim to report to the hospital. EKG showing ST elevation in leads II, III, and aVF Troponin elevated at 338 09/08 pt underwent a left sided cardiac Cath in which he had a RICA to the mid RCA , no further coronary disease noted. Echo Normal LV systolic function (EF 60-65%). Subtle, basal inferior wall hypokinesis. Normal LV diastolic function. Normal LV cavity size. Moderately increased LV wall thickness. Currently CP free Pts HR 40-60s. Trialed Low dose Metoprolol 12.5 mg BID and pt unable to tolerate it as it caused dizziness. 500 cc LR given and symptoms reportedly improved Orthostatic b/ps negative ?? Plan: ??- aspirin indefinitely - continue, Brilinta for 12 months - continue Atorvastatin ??-??Hold metoprolol, pt??unable to tolerate it. ??- Hold home valsartan ??-??Pt reports that he had both an echo and stress test 1 year ago that were ultimately normal while at [facility]. Will request records. - cardiac rehab - follow up with [facility] within the next 2-4 weeks; request sent ?? Chronic stable medical conditions: ??- BPH: Cont finasteride ??- Gout: Hold home indomethacin ??- GERD: PPI ? Case and plan discussed with Dr. Robin ? Vital Signs?? Temperature: 98.1 DegF (09/10/22 14:59:00) Temperature Route: Oral (09/10/22 14:59:00) Pulse Rate:??53 bpm??Low (09/10/22 14:59:00) Pulse Rate, Lyin bpm (09/10/22 14:59:00) Systolic Blood Pressure, Lyin mm Hg (09/10/22 14:59:00) Diastolic Blood Pressure, Lyin mm Hg (09/10/22 14:59:00) Pulse Rate, Sittin bpm (09/10/22 14:59:00) Systolic Blood Pressure, Sittin mm Hg (09/10/22 14:59:00) Diastolic Blood Pressure, Sittin mm Hg (09/10/22 14:59:00) Pulse Rate, Standin bpm (09/10/22 14:59:00) Systolic Blood Pressure, Standin mm Hg (09/10/22 14:59:00) Diastolic Blood Pressure, Standin mm Hg (09/10/22 14:59:00) Respiratory Rate: 18 br/min (09/10/22 14:59:00) Systolic Blood Pressure: 123 mm Hg (09/10/22 14:59:00) Diastolic Blood Pressure: 79 mm Hg (09/10/22 14:59:00) Blood pressure sites: Arm, left (09/10/22 14:59:00) Mean Arterial Pressure: 94 mm Hg (09/10/22 14:59:00) Pulse Pressure: 44 mm Hg (09/10/22 14:59:00) Oxygen Saturation: 99 % (09/10/22 14:59:00) Mode of Delivery (Oxygen): Room air (09/10/22 14:59:00) Early Warning Score: 0 (09/10/22 15:02:58) ? . Physical Exam General:??Alert, in no acute cardiopulmonary distress. Mental Status:??Oriented to person, place and time. Normal affect. Head:??Normocephalic. Eyes:??No xanthomas or scleral icterus. Extraocular muscles intact. Respiratory:??Clear to auscultation and percussion. No wheezing, rales or rhonchi. Cardiovascular:??Heart sounds normal. No thrills. Regular rate and rhythm, no murmurs, rubs or gallops. No JVD appreciated Extremities:??+2 peripheral pulses bilaterally. No edema noted. Gastrointestinal:??Abdomen soft, non-tender, non-distended. Normal bowel sounds. No pulsatile mass.No hepatosplenomegaly. Neurologic:??Cranial nerves II-XII grossly intact. Skin:??Right wrist cath site CDI, no hematoma or bleeding noted Musculoskeletal:??No cyanosis or clubbing. No gross deformities. Normal range of motion. Patient Education Titles Ticagrelor Oral Tablet?? Atorvastatin Oral Tablet?? Aspirin Oral Tablet 81 mg?? Medicines for Heart Disease?? Getting Started with Cardiac Rehab: Exercise?? Symptoms of a Heart Attack?? Follow-Up Appointments Added Follow Up ?Time Frame ?Comments [facility]?09/30/2022 13:30?[phone] no tip cutter available, no family available. May need to use [facility] PCP Not on Staff Results Discharge Labs BLOOD BANK Blood Type B Positive ()?? 09/08/2022 10:13 Antibody Screen Negative ()?? 09/08/2022 10:13 ?? BLOOD COUNT & DIFF WBC 6.4 k/mm3 ()?? 09/10/2022 02:30 RBC 4.89 m/mm3 ()?? 09/10/2022 02:30 Hgb 14.2 Gm/dL ()?? 09/10/2022 02:30 Hct 42.9 % ()?? 09/10/2022 02:30 MCV 87.7 femtoliters ()?? 09/10/2022 02:30 MCH 29.0 pg ()?? 09/10/2022 02:30 MCHC 33.1 g/dL ()?? 09/10/2022 02:30 Platelet Count 171 k/mm3 ()?? 09/10/2022 02:30 RDW-SD 39.4 femtoliters ()?? 09/10/2022 02:30 MPV 9.6 femtoliters ()?? 09/10/2022 02:30 Nucleated RBC (Automated) 0.0 #/100 WBC'S ()?? 09/10/2022 02:30 Abs. NRBC 0.0 k/mm3 ()?? 09/10/2022 02:30 Abs. Neut 6.8 k/mm3 ()?? 09/08/2022 10:27 Abs. Lymph 1.0 k/mm3 ()?? 09/08/2022 10:27 Abs. Jackson 0.4 k/mm3 ()?? 09/08/2022 10:27 Abs. Eo 0.0 k/mm3 ()?? 09/08/2022 10:27 Abs. Baso 0.0 k/mm3 ()?? 09/08/2022 10:27 Neut % 82.4 % (High)?? 09/08/2022 10:27 Lymph % 11.8 % (Low)?? 09/08/2022 10:27 Jackson % 5.2 % ()?? 09/08/2022 10:27 Eos % 0.0 % ()?? 09/08/2022 10:27 Baso % 0.1 % ()?? 09/08/2022 10:27 Imm Gran 0.5 % ()?? 09/08/2022 10:27 Abs. Imm Gran 0.0 k/mm3 ()?? 09/08/2022 10:27 ?? CARDIAC High Sensitivity Troponin (HSTnT) 338 ng/L (Critical)?? 09/09/2022 05:07 ? CHEM GENERAL Sodium 140 mmol/L ()?? 09/10/2022 02:30 Potassium 4.0 mmol/L ()?? 09/10/2022 02:30 Chloride 105 mmol/L ()?? 09/10/2022 02:30 Bicarbonate Level 25 mmol/L ()?? 09/10/2022 02:30 Anion Gap 10 ()?? 09/10/2022 02:30 Glucose Level 111 mg/dL (High)?? 09/10/2022 02:30 Glucose, POC 179 mg/dL (High)?? 09/08/2022 10:23 BUN 16 mg/dL ()?? 09/10/2022 02:30 Creatinine-Blood 1.0 mg/dL ()?? 09/10/2022 02:30 Estimated GFR Creatinine 82 ML/MIN/1.73 M2 ()?? 09/10/2022 02:30 Calcium 8.8 mg/dL ()?? 09/10/2022 02:30 Protein, Total 6.5 Gm/dL ()?? 09/08/2022 10:27 Albumin 4.3 Gm/dL ()?? 09/08/2022 10:27 AG Ratio 2.0 ()?? 09/08/2022 10:27 Alkaline Phosphatase 54 units/L ()?? 09/08/2022 10:27 Lipase 23 units/L ()?? 09/08/2022 10:27 AST (SGOT) 18 units/L ()?? 09/08/2022 10:27 ALT (SGPT) 17 units/L ()?? 09/08/2022 10:27 Bilirubin, Total 0.6 mg/dL ()?? 09/08/2022 10:27 ? COAG INR 1.0 ()?? 09/08/2022 10:27 Protime (PT) 10.7 seconds ()?? 09/08/2022 10:27 APTT <22.0 seconds (Low)?? 09/08/2022 10:27 ? ENDOCRINE/TUMOR MARKER TSH 0.67 uIU/mL ()?? 09/09/2022 05:06 ? LIPID STUDIES Cholesterol 157 mg/dL ()?? 09/09/2022 05:06 Triglycerides 91 mg/dL ()?? 09/09/2022 05:06 HDL Cholesterol 64 mg/dL ()?? 09/09/2022 05:06 LDL Cholesterol 75 mg/dL ()?? 09/09/2022 05:06 Non HDL Cholesterol 93 mg/dL ()?? 09/09/2022 05:06 ? VIROLOGY COVID-19 by RT-PCR NEGATIVE ()?? 09/08/2022 10:27 ? 31_ minutes spent on discharge * Travon Robin DO: PERFORM Event Display: Discharge/Transfer Note Hospital Authored Date: Attending Attestation: I have seen and evaluated this patient.?? I have discussed the case and its management with the FITNESS MANAGEMENT DIRECTOR/PAand agree with the findings and plan as documented in the FITNESS MANAGEMENT DIRECTOR/PA???s note. * Raulito YANG, Cindy: PERFORM Event Display: Patient Education/Instruction Authored Date: Inpatient Adult Discharge Instructions [address] [address] Name: ADDIE GARCIA : 1955 Visit: 09/08/2022 10:35:00 Current Date: 09/10/2022 15:41 Account: [id number] Inpatient Adult Discharge Instructions We would like to thank you for allowing us to assist you with your healthcare needs. The following includes patient education materials and information regarding your injury/illness. Our entire staffstrives to provide an excellent experience for our patients and their families. PLEASE ENSURE YOU FOLLOW-UP PER THE INSTRUCTIONS BELOW! ?? YOUR OPINION IS IMPORTANT TO US! Please complete the survey you may receive by mail or email. Your feedback will be used to make improvements to the healthcare experiences of our patients and their families. Surveys are administered by [employer] ?? If further treatment with your primary care physician or another doctor is recommended, it is important for you to keep the appointment. Call your primary care physician or return to the Emergency Department immediately if your condition worsens, fails to improve, or new symptoms develop. If you need to find a doctor, you can call [facility] [employer] for a referral at [phone] or toll free at [phone] or log in to [email or web address] ?? You can view and manage your care through the patient portal or by using a health care nathan of your choosing. [employer] is a website that allows you to securely view your medical information including your hospital discharge summary, office visit summaries, medications and follow-up visits. You can also request appointments, renew medications, and request access to your medical information using a health care nathan of your choosing, or just ask a question. You can enroll at [email or web address] or register during your next office visit. You have been discharged from [facility], Patient Care Unit: M6. If you have any questions regarding these instructions after you leave, please call us and we will be happy to assist you. [facility] Your Care Team Attending Physician Travon Robin DO Consulting Providers Galina DURHAM, Polly Elizabeth Discharging Providers Nella Martinez NP Reason for Admission STEMI Your Diagnosis Acute NH STEMI (ST elevation myocardial infarction) Chest pain STEMI (ST elevation myocardial infarction) Tests Performed Below is a partial list of the tests performed during your hospitalization. You may have had other tests and procedures not included in this list. Please discuss all test results with your provider. Basic Metabolic Panel CBC CBC w/ Differential COVID-19 (Novel Coronavirus), Rapid PCR GLUCOSE POC High??Sensitivity??Troponin T HOLD RED TUBE?-- Results Pending -- INR Lipase Lipid Panel PTT Troponin T, High Sensitivity TSH with T4 Reflex (Adults Only) Type and Screen XR Chest Portable ? You will be contacted within 72 hours with your results. Primary Care Provider Not on Staff, PCP Advance Directive Health Care Proxy on File No Discharge Vitals Temperature: 98.1 DegF Height: 168 cm Pulse Rate:??53 bpm??Low Weight: 63.9 kg Respiratory Rate: 18 br/min Body Mass Index: 22.64 kg/m2 Systolic Blood Pressure: 123 mm Hg Body surface area: 1.73 Diastolic Blood Pressure: 79 mm Hg ?? Oxygen Saturation: 99 % ?? Studies Pending All tests and labs ordered during this hospital stay have been completed unless listed below. Please discuss all pending results with your provider listed above in these instructions. ?? COVID-19 (2019 Novel Coronavirus) PCR Comprehensive Metabolic Panel Hemoglobin A1C (Monitoring) Hold Red Top Tube (HOLD RED TUBE) What to do next Instructions From Your Doctor Discharge Orders You Need to Schedule the Following Appointments Follow Up with??[facility] When??09/30/2022 01:30 PM EDT Why: [phone] no tip cutter available, no family available. May need to use [facility] Where: [address], [address] [place], [place] Follow Up with??PCP Not on Staff When??In 0 days Discharge Medications SIERRA GARCIAARTUR :1955 Visit Date:09/08/2022 Medications: Please continue your medications until treatment is completed or stopped by your provider. Medications not listed below should be discontinued. Discuss any questions related to medications with your provider. What How Much When Instructions Next Dose New Aspirin (aspirin 81 mg oral delayed release tablet) 81 Milligram Oral Daily Refills: 3 Pickup at [facility] 3 Tomorrow morning New Atorvastatin (atorvastatin 80 mg oral tablet) 1 tab(s) Oral Daily at Bedtime Refills: 3 Pickup at [facility] 3 Tonight at bedtime New Ticagrelor (ticagrelor 90 mg oral tablet) 1 tab(s) Oral Twice a day Refills: 3 Pickup at [facility] 3 Tonight at bedtime Unchanged Albuterol (Albuterol (Eqv-ProAir HFA) 90 mcg/ inh inhalation aerosol) INHALE 2 PUFFS BY MOUTH EVERY 4 HOURS NEEDED FOR COUGH,WHEEZE, OR SHORTNESS OF BREATH ?? as needed Unchanged Diclofenac Topical (diclofenac 1% topical gel) APPLY 4 GRAMS TOPICALLY THREE TIMES DAILY ?? continue home regimen Unchanged Esomeprazole (esomeprazole 20 mg oral enteric coated capsule) 1 capsule TAKE 1 CAPSULE BY MOUTH TWICE DAILY ON AN EMPTY STOMACH BEFORE MEAL(S) WAIT THIRTY MINUTES AND EAT TO ACTIVATE THE MEDICATION TAKE BEFORE BREAKFAST AND SUPPER ?? continue home regimen Unchanged Finasteride (finasteride 5 mg oral tablet) 1 tab(s) Oral Daily Tomorrow morning Unchanged Gabapentin (gabapentin 300 mg oral capsule) TAKE 1 CAPSULE BY MOUTH TWICE DAILY ?? Tonight at bedtime Unchanged Meclizine (meclizine 12.5 mg oral tablet) 1 tab(s) Oral 3 times a day as needed for for dizziness as needed Unchanged Triamcinolone Topical (triamcinolone 0.1% topical cream) APPLY CREAM EXTERNALLY TO AFFECTED AREAS OF ECZEMA ON EXTREMITITES WITH A MOISTURIZER TWICE DAILY NEEDED ?? continue home regimen Pharmacy Information [facility] 3: [address], [place] [id number] [phone] ?? What How Much When Comments Stop Taking Cholecalciferol (Vitamin D3 1000 intl units oral capsule) 1 capsule Oral Daily Stop Taking Glucosamine 1,500 Milligram Oral Daily Stop Taking Indomethacin (indomethacin 50 mg oral capsule) TAKE 1 CAPSULE BY MOUTH THREE TIMES DAILY WITH FOOD OR MILK ?? Stop Taking Ketorolac Ophthalmic (ketorolac 0.5% ophthalmic solution) STARTING 2 DAYS BEFORE SURGERY, INSTILL 1 DROP IN THE OPERATIVE EYE 2 TIMES A DAY DIRECTED ?? Stop Taking Losartan (Cozaar 25 mg oral tablet) 1 tab(s) Oral Daily Stop Taking Losartan (losartan 25 mg oral tablet) TAKE 1/ 2 (ONE-HALF) TABLET BY MOUTH ONCE DAILY ?? Stop Taking Tamsulosin (Flomax 0.4 mg oral capsule) 1 capsule Oral Daily Test Results Below is a partial list of the most recent Laboratory test results done prior to this discharge. You may have had other tests and procedures not included in this list. Please discuss all test resultswith your provider. Basic Metabolic Panel (09/10/2022) ???Sodium - 140 mmol/L???Potassium - 4.0 mmol/L???Chloride - 105 mmol/L???Bicarbonate Level - 25 mmol/L???Anion Gap - 10???Glucose Level - 111 mg/dL???BUN - 16 mg/dL???Creatinine-Blood - 1.0 mg/dL???Estimated GFR Creatinine - 82 ML/MIN/1.73 M2???Calcium - 8.8 mg/dL CBC (09/10/2022) ???WBC - 6.4 k/mm3???RBC - 4.89 m/mm3???Hgb - 14.2 Gm/dL???Hct - 42.9 %???MCV - 87.7 femtoliters???MCH - 29.0 pg???MCHC - 33.1 g/dL???Platelet Count - 171 k/mm3???RDW-SD - 39.4 femtoliters???MPV - 9.6 femtoliters???Nucleated RBC (Automated) - 0.0 #/100 WBC'S???Abs. NRBC - 0.0 k/mm3 CBC w/ Differential (09/08/2022) ???WBC - 8.2 k/mm3???RBC - 4.90 m/mm3???Hgb - 14.6 Gm/dL???Hct - 42.8 %???MCV - 87.3 femtoliters???MCH - 29.8 pg???MCHC - 34.1 g/dL???Platelet Count - 198 k/mm3???RDW-SD - 37.9 femtoliters???MPV - 9.2 femtoliters???Nucleated RBC (Automated) - 0.0 #/100 WBC'S???Abs. NRBC - 0.0 k/mm3???Abs. Neut - 6.8 k/mm3???Abs. Lymph - 1.0 k/mm3???Abs. Jackson - 0.4 k/mm3???Abs. Eo - 0.0 k/mm3???Abs. Baso - 0.0 k/mm3???Neut % - 82.4 %???Lymph % - 11.8 %???Jackson % - 5.2 %???Eos % - 0.0 %???Baso % - 0.1 %???Imm Gran- 0.5 %???Abs. Imm Gran - 0.0 k/mm3 COVID-19 (Novel Coronavirus), Rapid PCR (09/08/2022) ???COVID-19 by RT-PCR - NEGATIVE GLUCOSE POC (09/08/2022) ???Glucose, POC - 179 mg/dL High??Sensitivity??Troponin T (09/08/2022) ???High Sensitivity Troponin (HSTnT) - 11 ng/L INR (09/08/2022) ???INR - 1.0???Protime (PT) - 10.7 seconds Lipase (09/08/2022) ???Lipase - 23 units/L Lipid Panel (09/09/2022) ???Cholesterol - 157 mg/dL???Triglycerides - 91 mg/dL???HDL Cholesterol - 64 mg/dL???LDL Cholesterol - 75 mg/dL???Non HDL Cholesterol - 93 mg/dL PTT (09/08/2022) ? ?APTT - <22.0 seconds Troponin T, High Sensitivity (09/09/2022) ???High Sensitivity Troponin (HSTnT) - 338 ng/L TSH with T4 Reflex (Adults Only) (09/09/2022) ???TSH - 0.67 uIU/mL Type and Screen (09/08/2022) ???Blood Type - B Positive???Antibody Screen - Negative Allergies (NKA means No Known Allergies) NKA Problems No qualifying data available Education Materials Below is the list of Educational Leaflet Providered with your Discharge Instructions. Discharge Instructions for Cardiac Catheterization?? Ticagrelor Oral Tablet?? Atorvastatin Oral Tablet?? Aspirin Oral Tablet 81 mg?? Medicines for Heart Disease?? Getting Started with Cardiac Rehab: Exercise?? Symptoms of a Heart Attack?? Valuables and Belongings I fully understand and agree that [facility] accepts no responsibility for all my personal property including clothing, toilet articles, radios, jewelry, dentures, hearing aids, rings, money, or any other property that is in my possession or is brought to me after admission. I understand certain valuables may be placed in a hospital safe for a short period of time. I understand that the hospital is not liable for loss or damage due to accident, fire, or other natural occurrence while said property is in the safe. I accept full responsibility for any personal property that I keep with me, and will not hold the hospital responsible in case of loss or disappearance. I acknowledge that i have been encouraged to send valuables and belongings home. ?? Review of Valuable and Belonging List: With patient Date for Pt to Sign Valuables/Belongings: 09/09/22 18:40:00 ?? Other Discharge Information ? Pulmonary Rehab Status?? Pulmonary Rehab Discharge Status?? Respiratory Rate: 18 br/min ? Cardiac Rehab Assessment?? Cardiac Rehab Inpatient Assessment?? Comments-Education: post infarct recovery, home activity Comments-Exercise Activity: phase 2 referral Comments-Nutrition: per RD Comments-Lipids: meds and diet Patient attending Phase II: Yes Phase II Site of Care: [facility] [address] [facility] [phone] Common Emergency Awareness Tips IS IT A STROKE? Act FAST and Check for these signs: FACE Does the face look uneven? ARM Does one arm drift down? SPEECH Does their speech sound strange? TIME Call at any sign of stroke ?? Heart Attack Signs Chest discomfort: Most heart attacks involve discomfort in the center of the chest and lasts more than a few minutes, or goes away and comes back. It can feel like uncomfortable pressure, squeezing, fullness or pain. Discomfort in upper body: Symptoms can include pain or discomfort in one or both arms, back, neck, jaw or stomach. Shortness of breath: With or without discomfort. Other signs: Breaking out in a cold sweat, nausea, or lightheaded. Remember, MINUTES DO MATTER. If you experience any of these heart attack warning signs, call to get immediate medical attention! ?? Smoking can increase your chances of developing chronic health problems and can cause harmful effects to other family members in your house. If you smoke, you are strongly encouraged to quit. Please call [facility] [employer] Link at [phone] or [phone] Gifts Project (0342) or log in to [email or web address] for referrals to smoking cessation programs. ?? The National Suicide Prevention Hotline is available 01/02 if you or someone you know needs to find a reason to keep living. By calling 3-397-911-dlol (6727) you'll be connected to a skilled, trained counselor at a crisis center in your area. INPATIENT DISCHARGE INSTRUCTIONS SIGNATURE PAGE ADDIE GARCIA Location:[facility] Registration Date and Time:09/08/2022 10:35 EST Primary Care Physician: Not on Staff, PCP I RADHA ADDIE, have received the above patient education materials/instructions and have verbalizedunderstanding. If ambulance or transport services are being used I further acknowledge being given a choice of service. ?? If you need to contact me, please call me at this number: . Patient/Tube Winder Hand Name: Patient/Tube Winder Hand Signature: Relationship to Patient: Witness Name/Signature: Date: * Cindy aCbezas RN: PERFORM Event Display: Patient Education Leaflets Authored Date: Discharge Instructions for Cardiac Catheterization ?? [id number] Discharge Instructions for Cardiac Catheterization Cardiac catheterization??is an invasive??procedure??to look for certain heart problems. These problems may affect the heart's chambers, valves, and blood vessels. A thin, flexible tube (catheter) is put in a blood vessel in your groin or arm. The catheter is moved to the heart. The healthcare provider can look at the blood flow, blood pressure, and oxygen. They can inject contrast fluid??into your blood. This flows to your heart.??The provider can then take X-rays pictures?? of your heart. Coronary angiography is often done as part of a cardiac cath. This looks for blocked areas in the arteries that send blood to the heart. If a blockage is found, your provider may try to open up the artery. They may put a stent in place. Your provider will talk with you about the results of your procedure . Ask any questions you have before you leave. This sheet will help you take care of yourselfat home. Home care ??? Have a responsible adult drive you home after your procedure. ??? Don't drive or makeany important decisions for at least 24 hours after getting any type of sedation or anesthesia.? Drink?? 6 to 8??glasses of water over the next 24 hours. This is to help flush the contrast dye out of your body. Call your healthcare team if your urine has any change in color. ??? Take your tempe rature each day for 3 to 5 days. If you feel cold and clammy or start sweating, take your temperature right away. Call your healthcare team. ??? Do only light and easy activities for??the next?? 2 to3??days. Ask for help with chores and errands while you recover. Have someone drive you to your appointments. ??? Don't lift anything heavy??until your healthcare team says it's safe. ??? Ask your healthcare team when you can expect to return to work. Unless your job involves lifting, you may be able to return to your normal activities within 2 days. ??? Take your medicines as directed. Don't skip doses. ??? Check your incisions every day for signs of infection. These include redness, swelling,and fluid leaking. It's normal to have a small bruise or bump where the catheter was put in. A bruise that's getting larger is not normal. Tell your healthcare team about this. Call your healthcare team if you see blood forming in the incision. Go to the emergency room if you have uncontrolled bleeding from the artery site. This is even more important if you take medicines that make it hard for your blood to clot. These include aspirin, clopidogrel, warfarin, apixaban, and rivaroxaban. ??? Eat a healthy diet. Make sure it's low in fat, salt, and cholesterol. Ask your healthcare team for diet information. ??? Stop smoking. Sign up for a quit-smoking program. Or ask your healthcare team for help. ??? Exercise as your healthcare team tells you to. Your healthcare team??may advise you to start a cardiac rehab program. Cardiac rehab is an exercise program where trained healthcare staff watchyour progress and stress on your heart while you exercise. Ask your team how to enroll. ??? Don't swim or take baths until your healthcare team says it???s OK. You can shower the day after the procedure. Keep the site clean and dry. This keeps the incision from getting wet and infected until the skin and artery can heal. ??? Follow all other after-care instructions from your team.? Follow-up care ??? Make a follow-up appointment as advised. It's common to have a follow-up appointment 2 to 4 weeks after an angioplasty or coronary stent procedure. ??? Make a yearly appointment. This is??to make sure you're still doing well and not having any new symptoms. ??? Don't wait for a follow-up appointment if your medicines aren't working or you're having heart-related symptoms. Call your healthcare provider. ?? When to get medical care Call your healthcare provider right away if you have any of these: ??? Severe or increasing pain, numbness, coldness, or a bluish color in the leg or arm that held the catheter ??? Fever of 100.4?? F??( 38??C) or higher, or as advised by your healthcare provider ??? Signs of infection at the incision site. These include redness, swelling, drainage, or warmth. ??? Bleeding, bruising, or a lot of??swelling where the catheter was inserted ??? Blood in your urine ??? Black or tarry stools ??? Any unusual bleeding ??? Irregular, very slow, or fast heartbeat ??? Dizziness ?? Call 911 Call 911 if you have any of these: ??? Chest pain ??? Shortness of breath ??? Sudden numbness or weakness in arms, legs, or face, or trouble speaking ??? The puncture site swells up very fast ??? Bleeding from the puncture site that doesn't slow down with firm pressure ?? Last Reviewed Date: 2021 ?? [employer]. All rights reserved. This information is not intended as a substitute for professional medical care. Always follow your healthcare professional's instructions. ?? * Nella Martinez NP: PERFORM Event Display: Patient Education Leaflets Authored Date: [id number] Ticagrelor Oral Tablet ?? [id number] Ticagrelor Oral Tablet Brands: Brilinta Uses This medicine is used for the following purposes: ??? heart disease ??? prevent blood clots ??? prevent heart attack ?? Instructions This medicine may be taken with or without food. It is very important that you take the medicine at about the same time every day. It will work bestif you do this. Store at room temperature away from heat, light, and moisture. Do not keep in the bathroom. It is important that you keep taking each dose of this medicine on time even if you are feeling well. If you forget a dose, just wait. Use the next dose at the usual time. Do not use 2 doses at once. Drug interactions can change how medicines work or increase risk for side effects. Tell your healthcare providers about all medicines taken. Include prescription and kkcw-zcd-xudxrbx medicines, vitamins, and herbal medicines. Speak with your doctor or pharmacist before starting or stopping any medicine. It is very important that you follow your doctor's instructions for all blood tests. ?? Cautions This medicine may cause serious bleeding problems in patients taking blood thinner medications. Follow your doctor's instructions carefully to monitor your blood lab tests if you are on blood thinners. Tell your doctor and pharmacist if you ever had an allergic reaction to a medicine. This medicine may cause serious bleeding from the stomach or bowels. Stop this medicine and call your doctor immediately if you see any signs of bleeding. Bleeding can cause pain in the stomach, vomiting up liquid that looks like coffee grounds, and red or dark tarry stools. There is an increased risk of bleeding while on this medicine, please tell your doctor or nurse if you notice any excessive bleeding or bruising. Do not use the medication any more than instructed. Speak with your doctor before taking any medicine with aspirin. Please check with your doctor before drinking alcohol while on this medicine. Tell the doctor or pharmacist if you are , planning to be , or . Do not take Ayleen's wort while on this medicine. Call your doctor right away if you notice any unusual bleeding or bruising. Do not share this medicine with anyone who has not been prescribed this medicine. Some patients have serious side effects from this medicine. Ask your pharmacist to show you the information from the Food and Drug Administration (FDA) and discuss it with you. Always refill this medicine before it runs out. ?? Side Effects The following is a list of some common side effects from this medicine. Please speak with your doctor about what you should do if you experience these or other side effects. ??? increased risk of bleeding ??? coughing ??? nosebleeds Call your doctor or get medical help right away if you notice any of these more serious side effects: ??? bleeding or bruising ??? breathing interruption during sleep ??? shallow, irregular breathing ??? coughing up blood or vomit that looks like coffee grounds ??? fainting ??? fever ??? numbness or tingling in hands and feet ??? severe or persistent headache ??? sudden leg pain, swelling, warmth or redness ??? loss of movement anywhere on the body ??? shortness of breath ??? bloody or dark, tarry stools ??? symptoms of stroke (such as one-sided weakness, slurred speech, confusion) ??? difficulty swallowing ??? unusual or unexplained tiredness or weakness ??? blood in urine ??? blurring or changes of vision A few people may have an allergic reaction to this medicine. Symptoms can include difficulty breathing, skin rash, itching, swelling, or severe dizziness. If you notice any of these symptoms, seek medical help quickly. ?? Extra Please speak with your doctor, nurse, or pharmacist if you have any questions about this medicine. ?? [email or web address] IMPORTANT NOTE: This document tells you briefly how to take your medicine, but it does not tell youall there is to know about it. Your doctor or pharmacist may give you other documents about your medicine. Please talk to them if you have any questions. Always follow their advice. There is a more complete description of this medicine available in [place]e. Scan this code on your smartphone or tablet or use the web address below. You can also ask your pharmacist for a printout. If you have any questions, please ask your pharmacist. The display and use of this drug information is subject to Terms of Use. Copyright(c) 2022 [employer] ?? [employer]. All rights reserved. This information is not intended as a substitute for professional medical care. Always follow your healthcare professional's instructions. ?? * Nella Martinez NP: PERFORM Event Display: Patient Education Leaflets Authored Date: [id number] Atorvastatin Oral Tablet ?? [id number] Atorvastatin Oral Tablet Brands: Lipitor Uses To lower high fat levels in blood. ?? Instructions This medicine may be taken with or without food. Keep the medicine at room temperature. Avoid heat and direct light. Avoid grapefruit juice while on this medicine. It is important that you keep taking each dose of this medicine on time even if you are feeling well. If you forget to take a dose on time, take it as soon as you remember. If it is almost time for thenext dose, do not take the missed dose. Return to your normal schedule. Do not take 2 doses at one time. Tell your doctor and pharmacist about all your medicines. Include prescription and gibm-lbz-dykubkyyilqxzxjg, vitamins, and herbal medicines. It is very important that you follow your doctor's instructions for all blood tests. ?? Cautions Tell your doctor and pharmacist if you ever had an allergic reaction to a medicine. Do not use the medication any more than instructed. Please check with your doctor before drinking alcohol while on this medicine. Contact your doctor if you notice a change in the amount or darkening of your urine. Tell the doctor or pharmacist if you are , planning to be , or . Do not breastfeed while on this medicine. During , this medicine should be used only when clearly needed. Talk to your doctor about the risks and benefits. Do not start or stop any other medicines without first speaking to your doctor or pharmacist. Do not share this medicine with anyone who has not been prescribed this medicine. ?? Side Effects Call your doctor or get medical help right away if you notice any of these more serious side effects: ??? signs of liver damage (such as yellowing of eye or skin, dark urine, or unusual tiredness) ??? muscle pain ??? nausea ??? stomach upset or abdominal pain A few people may have an allergic reaction to this medicine. Symptoms can include difficulty breathing, skin rash, itching, swelling, or severe dizziness. If you notice any of these symptoms, seek medical help quickly. ?? Extra Please speak with your doctor, nurse, or pharmacist if you have any questions about this medicine. ?? [email or web address] IMPORTANT NOTE: This document tells you briefly how to take your medicine, but it does not tell youall there is to know about it. Your doctor or pharmacist may give you other documents about your medicine. Please talk to them if you have any questions. Always follow their advice. There is a more complete description of this medicine available in [place]. Scan this code on your smartphone or tablet or use the web address below. You can also ask your pharmacist for a printout. If you have any questions, please ask your pharmacist. The display and use of this drug information is subject to Terms of Use. Copyright(c) 2022 [employer] ?? [employer]. All rights reserved. This information is not intended as a substitute for professional medical care. Always follow your healthcare professional's instructions. ?? * Event Display: Hemodynamic Procedure Report Authored Date: * Yuri YANG, Lizzette Hatfield: PERFORM, SIGN, VERIFY Event Display: Patient Education Handout Authored Date: Admission evaluation note * Samm DURHAM, Pastora Romeo: MODIFY, PERFORM, MODIFY Event Display: Admission Note Authored Date: [id number] Patient: ??ADDIE GARCIA ? Age:??66 Years?Sex:??Male?:??1955?? History of Present Illness Addie is a 66-year-old male with past medical history of GERD, CKD, disc hernia, arthritis of bilateral knees, gout, BPH??who??presents on September 08 for inferior STEMI.?? About a year ago, he started having substernal CP on exertion associated with palpitation??that would go away on its own. This would happen just once in a while, but 30 minutes prior to presentation patient was having substernal crushing chest pain associated with nausea and shortness of breath while he was shoveling snow. ?? On note, pt did see a supervisor glycerin at [facility] for his intermittent CP and had echo and stress test. Per pt, the results were normal ?? Patient was loaded with aspirin and Brilinta ?? EKG showing ST elevation in leads II, III, and aVF ?? Unofficial cath report - RCA stent Review of Systems Constitutional: No fever or chills ENT: No sore throat. Respiratory: No shortness of breath or cough Cardiovascular: No chest pain, No palpitations. Gastrointestinal: No diarrhea. No abdominal pain. Genitourinary: No burning micturition. Neurologic: No headache. MSK: Denies any muscle or joint pain Skin: No rash or itching ?? Objective Vital Signs?? Temperature: 98 DegF (09/08/22 11:54:00) Temperature Route: Oral (09/08/22 11:54:00) Pulse Rate: 82 bpm (09/08/22 11:54:00) Heart Rate Monitored: 68 bpm (09/08/22 12:00:00) Respiratory Rate: 19 br/min (09/08/22 12:00:00) Systolic Blood Pressure: 107 mm Hg (09/08/22 12:00:00) Diastolic Blood Pressure: 65 mm Hg (09/08/22 12:00:00) Blood pressure sites: Arm, left (09/08/22 12:00:00) Mean Arterial Pressure: 85 mm Hg (09/08/22 11:54:00) Pulse Pressure: 42 mm Hg (09/08/22 12:00:00) Oxygen Saturation: 100 % (09/08/22 12:00:00) Mode of Delivery (Oxygen): Room air (09/08/22 12:00:00) Early Warning Score: 0 (09/08/22 10:58:58) ? Intake/Output? No Data Available ? Physical Exam Constitutional: Well appearing. In no acute distress. Head: Normocephalic.?? Respiratory: Clear to auscultation. No wheezing, rales or rhonchi. Cardiovascular: S1 S2 regular. No murmurs, rubs or gallops. Gastrointestinal: Abdomen soft, non-tender, non-distended. Normal bowel sounds.?? Neurologic:??No focal neurological deficits. Skin: No obvious rash noted. Musculoskeletal: No gross deformities. Extremity: Full passive ROM. Psychiatric: Appropriate affect. Assessment/Plan Suchul is a 66-year-old male with past medical history of GERD, CKD, disc hernia, arthritis of bilateral knees, gout, BPH??who??presents on September 08 for inferior STEMI.? Inferior STEMI s/p RICA RCA EKG showing ST elevation in leads II, III, and aVF Cath??- mid RCA stent x1, LVEDP 15 Currently CP free ?? Plan: - aspirin, brilinta, statin - Hold??beta art for now given RCA STEMI - Hold home valsartan - f/u echo - Get records from [facility] cardiology ?? Chronic stable medical conditions: - BPH: Cont finasteride - Gout: Hold home indomethacin - GERD: PPI ?? Quality Measures Code: Full Diet:??Dental soft diet (pt has mild dysphagia at baseline) DVT prophylaxis:??Lovenox? Pastora Quijano MD Internal Medicine PGY-2 Pager #[phone] ?? Pt seen and discussed with junior architect Dr. Oconnor Histories Allergies Allergies ?(Active and Proposed Allergies Only) NKA? (Severity: Unknown severity, Onset: Unknown) ? Past Medical History/Problem List Per HPI ? Past Surgical History None ? Social History Denied alcohol, tobacco use, and illicit drugs ? Family History Mom - [place] Dad - HTN ? Medications Home Medications Albuterol (Albuterol (Eqv-ProAir HFA) 90 mcg/inh inhalation aerosol)?INHALE 2 PUFFS BY MOUTH EVERY 4 HOURS NEEDED FOR COUGH,WHEEZE, OR SHORTNESS OF BREATH Diclofenac Topical (diclofenac 1% topical gel)?APPLY 4 GRAMS TOPICALLY THREE TIMES DAILY Esomeprazole (esomeprazole 20 mg oral enteric coated capsule)?1?capsule?20?Milligram?TAKE 1 CAPSULE BY MOUTH TWICE DAILY ON AN EMPTY STOMACH BEFORE MEAL(S) WAIT THIRTY MINUTES AND EAT TO ACTIVATE THE MEDICATION TAKE BEFORE BREAKFAST AND SUPPER Finasteride (finasteride 5 mg oral tablet)?1?tab(s)?5?Milligram?By Mouth?Daily Gabapentin (gabapentin 300 mg oral capsule)?TAKE 1 CAPSULE BY MOUTH TWICE DAILY Indomethacin (indomethacin 50 mg oral capsule)?TAKE 1 CAPSULE BY MOUTH THREE TIMES DAILY WITH FOOD OR MILK Ketorolac Ophthalmic (ketorolac 0.5% ophthalmic solution)?STARTING 2 DAYS BEFORE SURGERY, INSTILL 1 DROP IN THE OPERATIVE EYE 2 TIMES A DAY DIRECTED Losartan (losartan 25 mg oral tablet)?TAKE 1/2 (ONE-HALF) TABLET BY MOUTH ONCE DAILY Meclizine (meclizine 12.5 mg oral tablet)?1?tab(s)?12.5?Milligram?By Mouth?3 times a day?as needed?for dizziness Triamcinolone Topical (triamcinolone 0.1% topical cream)?APPLY CREAM EXTERNALLY TO AFFECTED AREAS OF ECZEMA ON EXTREMITITES WITH A MOISTURIZER TWICE DAILY NEEDED ? Results Recent Labs BLOOD BANK Blood Type B Positive ()?? 09/08/2022 10:13 Antibody Screen Negative ()?? 09/08/2022 10:13 ?? BLOOD COUNT & DIFF WBC 8.2 k/mm3 ()?? 09/08/2022 10:27 RBC 4.90 m/mm3 ()?? 09/08/2022 10:27 Hgb 14.6 Gm/dL ()?? 09/08/2022 10:27 Hct 42.8 % ()?? 09/08/2022 10:27 MCV 87.3 femtoliters ()?? 09/08/2022 10:27 MCH 29.8 pg ()?? 09/08/2022 10:27 MCHC 34.1 g/dL ()?? 09/08/2022 10:27 Platelet Count 198 k/mm3 ()?? 09/08/2022 10:27 RDW-SD 37.9 femtoliters ()?? 09/08/2022 10:27 MPV 9.2 femtoliters (Low)?? 09/08/2022 10:27 Nucleated RBC (Automated) 0.0 #/100 WBC'S ()?? 09/08/2022 10:27 Abs. NRBC 0.0 k/mm3 ()?? 09/08/2022 10:27 Abs. Neut 6.8 k/mm3 ()?? 09/08/2022 10:27 Abs. Lymph 1.0 k/mm3 ()?? 09/08/2022 10:27 Abs. Jackson 0.4 k/mm3 ()?? 09/08/2022 10:27 Abs. Eo 0.0 k/mm3 ()?? 09/08/2022 10:27 Abs. Baso 0.0 k/mm3 ()?? 09/08/2022 10:27 Neut % 82.4 % (High)?? 09/08/2022 10:27 Lymph % 11.8 % (Low)?? 09/08/2022 10:27 Jackson % 5.2 % ()?? 09/08/2022 10:27 Eos % 0.0 % ()?? 09/08/2022 10:27 Baso % 0.1 % ()?? 09/08/2022 10:27 Imm Gran 0.5 % ()?? 09/08/2022 10:27 Abs. Imm Gran 0.0 k/mm3 ()?? 09/08/2022 10:27 ?? CARDIAC High Sensitivity Troponin (HSTnT) 11 ng/L ()?? 09/08/2022 10:27 ?? CHEM GENERAL Sodium 142 mmol/L ()?? 09/08/2022 10:27 Potassium 3.7 mmol/L ()?? 09/08/2022 10:27 Chloride 104 mmol/L ()?? 09/08/2022 10:27 Bicarbonate Level 25 mmol/L ()?? 09/08/2022 10:27 Anion Gap 13 ()?? 09/08/2022 10:27 Glucose Level 201 mg/dL (High)?? 09/08/2022 10:27 Glucose, POC 179 mg/dL (High)?? 09/08/2022 10:23 BUN 14 mg/dL ()?? 09/08/2022 10:27 Creatinine-Blood 1.0 mg/dL ()?? 09/08/2022 10:27 Estimated GFR Creatinine 83 ML/MIN/1.73 M2 ()?? 09/08/2022 10:27 Calcium 9.2 mg/dL ()?? 09/08/2022 10:27 Protein, Total 6.5 Gm/dL ()?? 09/08/2022 10:27 Albumin 4.3 Gm/dL ()?? 09/08/2022 10:27 AG Ratio 2.0 ()?? 09/08/2022 10:27 Alkaline Phosphatase 54 units/L ()?? 09/08/2022 10:27 Lipase 23 units/L ()?? 09/08/2022 10:27 AST (SGOT) 18 units/L ()?? 09/08/2022 10:27 ALT (SGPT) 17 units/L ()?? 09/08/2022 10:27 Bilirubin, Total 0.6 mg/dL ()?? 09/08/2022 10:27 ?? COAG INR 1.0 ()?? 09/08/2022 10:27 Protime (PT) 10.7 seconds ()?? 09/08/2022 10:27 APTT <22.0 seconds (Low)?? 09/08/2022 10:27 ?? VIROLOGY COVID-19 by RT-PCR NEGATIVE ()?? 09/08/2022 10:27 ? * Valania DO, Travon: PERFORM Event Display: Admission Note Authored Date: Attending Attestation:??I have seen and evaluated this patient. I have discussed the case and its management with the resident and agree with the findings and plan as documented in the resident???s note. EKG study * Event Display: ECG 12-Lead Authored Date: Please click on pdf link to open report * Event Display: ECG 12-Lead Authored Date: Ventricular Rate: 53 BPM Atrial Rate: 53 BPM P-R Interval: 126 ms QRS Duration: 86 ms Q-T Interval: 440 ms QTC Calculation(Bazett): 412 ms P [place]: -11 degrees R [place]: -2 degrees T [place]: 4 degrees Sinus bradycardia Otherwise normal ECG When compared with ECG of 08-SEP-2022 21:45, No significant change was found Confirmed by MARIPOSA REDDY ([id number]) on 09/10/2022 11:41:31 AM [place]: MARIPOSA REDDY * Event Display: EKG Authored Date: * Event Display: EKG Authored Date: * Event Display: ECG 12-Lead Authored Date: Please click on pdf link to open report * Event Display: ECG 12-Lead Authored Date: Ventricular Rate: 50 BPM Atrial Rate: 50 BPM P-R Interval: 118 ms QRS Duration: 76 ms Q-T Interval: 446 ms QTC Calculation(Bazett): 406 ms P [place]: 43 degrees R [place]: 6 degrees T [place]: 29 degrees Sinus bradycardia Otherwise normal ECG When compared with ECG of 08-SEP-2022 21:45, MANUAL COMPARISON REQUIRED, DATA IS UNCONFIRMED Confirmed by PASTORA HOLLIS MD ([id number]) on 09/09/2022 2:24:26 PM [place]: PASTORA HOLLIS MD * Event Display: ECG 12-Lead Authored Date: Please click on pdf link to open report * Event Display: ECG 12-Lead Authored Date: Ventricular Rate: 49 BPM Atrial Rate: 49 BPM P-R Interval: 126 ms QRS Duration: 84 ms Q-T Interval: 456 ms QTC Calculation(Bazett): 411 ms P [place]: 51 degrees R [place]: 7 degrees T [place]: 34 degrees Sinus bradycardia Otherwise normal ECG When compared with ECG of 08-SEP-2022 11:37, Vent. rate has decreased BY 32 BPM Confirmed by PASTORA HOLLIS MD ([id number]) on 09/09/2022 2:24:19 PM [place]: PASTORA HOLLIS MD Heart * Event Display: Echocardiogram - Complete Authored Date: [id number] Transthoracic Echocardiography Report (TTE) Patient Demographics Patient Name ADDIE GARCIA Date of Study 09/08/2022 Corporate Gender Male Facility Race Ethnicity Date of 1955 Height: 67.8 inches Age 66 year(s) Weight: 150.58 pounds Accession Number [id number] BSA: 1.81 m2 Room Number [id number] BMI: 23.03 kg/m2 Referring Physician Not on Staff Interpreting Gregor Connell MD Referring MD Physician Samm Peck MD [employer] Delmis Bey Indications STEMI. Clinical History Asthma GERD Study Data Type of Study TTE procedure:Echo Complete-(Doppler, Colorflow) with Contrast. Procedure Information:Definity was administered by giulia KEITH Study Date09/08/2022 Start Time: 02:36 PM Study Location: [facility] [place] Adult Echo Study Status: Bedside Patient Status: Routine Technical Quality: Adequate Blood Pressure:118/69 mmHg EKG: Normal sinus rhythm HR: 63 bpm Contrast Medium: Definity. Amount - 2 ml Allergies - No known allergies. 2D Measurements LV Diastolic Dimension: 4.6 cm LV Systolic Dimension: 3 cm LV Septum Diastolic: 1.3 cm LV PW Diastolic: 1.3 cm AO Root Dimension: 2.4 cm LA Dimension: 4.2 cm LA ESV (BP):61 ml LVOT Stroke Volume: 77.08 ml LA ESV Index: 34 ml/m2 Stroke Volume Index42.59 ml/m2 LVOT: 1.9 cm Cardiac Index:2.69 l/min/m2 Doppler Measurements AV Peak Velocity: 144 cm/s MV Peak E-Wave: 86.9 cm/s AV Peak Gradient: 8.29 mmHg MV Peak A-Wave: 64.1 cm/s AV Mean Gradient: 5 mmHg MV E/A Ratio: 1.36 AV VTI:32.5 cm LVOT Peak Velocity: 116 cm/s LVOT VTI27.2 cm MV Deceleration Time: 190 msec AV Area (Continuity):2.37 cm2 TR Velocity:212 cm/s PV Peak Velocity: 103 cm/s TR Gradient:17.98 mmHg PV Peak Gradient: 4.24 mmHg Estimated RAP:3 mmHg Estimated RVSP: 21 mmHg E' Septal Velocity: 7.18 cm/s E' Lateral Velocity: 11.5 cm/s E/Med E':12.68855 E/Lat E':[id number] Cardiac Anatomy Left Ventricle/Interventricular Septum Normal LV systolic function (EF 60-65%). Subtle, basal inferior wall hypokinesis. Normal LV diastolic function. Normal LV cavity size. Moderately increased LV wall thickness. Left Atrium/Interatrial Septum Mildly dilated LA. Aortic Valve No significant structural abnormalities of the aortic valve. No significant aortic regurgitation. No significant aortic stenosis. Mitral Valve No significant structural abnormalities of the mitral valve. Trace mitral regurgitation. Aorta Normal size aortic root and ascending aorta. Right Ventricle Normal RV systolic function. Normal RV size. Right Atrium Normal size RA. Pulmonic Valve Poorly visualized pulmonic valve. Tricuspid Valve No significant structural abnormalities of the tricuspid valve. Mild tricuspid regurgitation. Pumonary Artery Normal estimated PA systolic pressure. Venous Structures Normal size IVC with normal respiratory variation (suggesting normal right atrial/central venous pressure). Pericardium/Extracardiac No significant pericardial effusion. Summary Normal LV systolic function (EF 60-65%). Subtle, basal inferior wall hypokinesis. Normal LV diastolic function. Normal LV cavity size. Moderately increased LV wall thickness. Normal RV systolic function. Normal RV size. Mild left atrial enlargement. No clinically significant valvular abnormalities. Comparison No prior study available for comparison. Signature * Event Display: Echocardiogram - Complete Authored Date: [facility] Progress note * Bette Belcher RN: PERFORM, SIGN, VERIFY Event Display: Progress Note Hospital Authored Date: Patient: ADDIE GARCIA Age: 66 years Sex: Male : 1955 Associated Diagnoses: None Author: Bette Belcher RN Findings Problem Related to Alteration in Cardiac Function (new) : Alteration in Cardiac Function/new 09/10/2022 9:00 EST Alteration in Cardiac Status Related to ACS, Cardiac Procedure, Chest pain Goals & Outcomes, Cardiac Status Pt will resume/maintain adequate cardiac output, Pt will resume/maintain adequate hemodynamic status, Pt will resume/maintain adequate respiratory function, Pt will resume/maintain intact neuro function, Pt will maintain adequate GI/ function appropriate for pt, Pt will maintain adequate nutrition status, Pt/caregiver will state understanding of diagnosis, Pt/caregiver will state strategies to reduce risk factors, Pt/caregiver will state understanding of procedure, Pt will state pain at procedure site to be tolerable Cardiac Interventions Implemented Assess/monitor cardiac status, Assess/monitor neuro status, Assess/monitor respiratory status, Assess for tolerance of IV infusions; verify rate & dose, Call/Report variances in ECG to provider, Document & Monitor O2 Sats; Administer O2 as ordered, Ensure adequate caloric intake, If no bowel movement in 3 days activate bowel regime, Monitor & document daily weight, Monitor anticoagulation values, Monitor ECG w/administration of antiarrhythmics (CO 13.420), Obtain 12 Lead ECG and CXR as ordered, Prep pt for treatments & procedures, Teach/encourage deep breath & cough exercises, Team conversation regarding appropriate level of care, Assessfor chest pain, document characteristics, Bed Rest during periods of chest discomfort, Document inte rventions & what relieved chest pain, Monitor for anxiety, shortness of breath, diaphoresis, Monitor VS with each episode of chest pain BH Goals/Interventions, Cardiac Yes Cardiac, Problem Start 09/08/2022 12:00 Reviewed Plan with, Cardiac Status Patient Patient Progression, Cardiac Status Patient progressing according to plan . Nursing Data Cardiac Data. : Cardiac Data. 09/10/2022 8:41 EST Cardiovascular Symptoms Chest pain, Other: minimal chest pain; states it has beenimproving since he arrived at hospital Skin Temperature Upper Extremities Warm Skin Temperature Lower Extremities Warm Heart Rhythm Regular Cardiac Rhythm Sinus bradycardia Radial Pulse, Left Normal Radial Pulse, Right Normal Posttibial Pulse, Left Normal Posttibial Pulse, Right Normal Dorsalis Pedis Pulse, Left Normal Dorsalis Pedis Pulse, Right Normal Edema None engine monitor Yes Cardiovascular WNL except . Gastrointestinal Data. : Gastrointestinal Data. 09/10/2022 8:41 EST Gastrointestinal Symptoms None Abdomen Flat Bowel Sounds LUQ Present Bowel Sounds RUQ Present Bowel Sounds LLQ Present Bowel Sounds RLQ Present GI WNL except . Genitourinary Data. : Genitourinary Data. 09/10/2022 8:41 EST WNL . HEENT Data. : HEENT Assessment 09/10/2022 8:41 EST HEENT, Adult WNL . Integumentary Data. : Integumentary Data. 09/10/2022 8:41 EST Integumentary WNL . Musculoskeletal Data. : Musculoskeletal Data. 09/10/2022 8:41 EST Musculoskeletal WNL . Neurological Data. : Neurological Data. 09/10/2022 8:41 EST Neurological Symptoms None Level of Consciousness Full Consciousness Orientated to person, place, time Person, Place, Time, Event Strength LUE 5-Active movement against gravity & full resistance Strength RUE 5-Active movement against gravity & full resistance Strength LLE 5-Active movement against gravity & full resistance Strength RLE 5-Active movement against gravity & full resistance Sensation LUE Intact Sensation RUE Intact Sensation LLE Intact Sensation RLE Intact Movement LUE Spontaneous Movement RUE Spontaneous Movement LLE Spontaneous Movement RLE Spontaneous Pain Location Other: mild headache Pain Location Chest, substernal 1 - 10 Pain Scale Score 4 Pain Interventions Repositioning, Rest Neuro WNL except . Respiratory/Pulmonary Data. 09/10/2022 8:41 EST Left Upper Lobe Breath Sounds Clear Right Upper Lobe Breath Sounds Clear Right Middle Lobe Breath Sounds Clear Left Lower Lobe Breath Sounds Clear Right Lower Lobe Breath Sounds Clear Respiratory distress None Respiratory WNL except . Narrative/Incidental Pt resting quietly in bed this morning, alert and oriented. Reporting minimal chest pain; states ithas improved since he came to hospital but not gone completely. Metoprolol given this am according to parameters, however pt reporting some dizziness after administration. LR infusing per orders, pt i nstructed to continue drinking fluids. Ambulating with 1x standby. Call lucia within reach. Patient safety maintained. Please see CIS for full assessment. . * Michelle GONSALES, Nella: PERFORM, MODIFY Event Display: Progress Note Hospital Authored Date: Patient: ??ADDIE GARCIA ? Age:??66 Years?Sex:??Male?:??1955?? Subjective Patient was seen and examined at bedside. ?? Overnight, patient was noted to be quite bradycardiac with rates in the 40s, therefore beta-blockers were held. However, he remained asymptomatic. ?? This am rates in the 50-70s. He does continue to report some mild chest discomfort similar to what brought him in but not to the same caliber. EKG does not show any new concerning changes. Review of Systems Review of Systems?? Constitutional:??No chills,?No fever, Skin:No Bruising,??No Itching,??No Skin rash. Eye:??No Blurring,?? Head/Neck:??No Dizziness,??No Headache,?No Syncope, Respiratory:No Cough,??No Shortness of breath,??No Wheeze.?? Cardiovascular:??+ chest pain??No Dyspnea,No Orthopnea,??No Palpitations,No Peripheral edema,??No Syncope.? Gastrointestinal:??No Abdominal pain,??No Constipation,??No Diarrhea,??No Heartburn,??No Hematochezia,??No Reflux,?No Nausea,No Vomiting. Genitourinary:?No Change in urine stream,??No Dysuria,??No Hematuria,??No Nocturia,??No Urinary frequency,??No Urinary incontinence,.? Objective Vital Signs?? Temperature: 98.2 DegF (09/09/22 12:00:00) Temperature Route: Oral (09/09/22 12:00:00) Pulse Rate: 63 bpm (09/09/22 10:52:00) Heart Rate Monitored:??46 bpm??Low (09/09/22 13:00:00) Respiratory Rate:??13 br/min??Low (09/09/22 13:00:00) Systolic Blood Pressure: 124 mm Hg (09/09/22 13:00:00) Diastolic Blood Pressure: 75 mm Hg (09/09/22 13:00:00) Blood pressure sites: Arm, left (09/09/22 13:00:00) Pulse Pressure: 49 mm Hg (09/09/22 13:00:00) Oxygen Saturation: 98 % (09/09/22 13:00:00) Mode of Delivery (Oxygen): Room air (09/09/22 13:00:00) ? Physical Exam General:??Alert, in no acute cardiopulmonary distress. Mental Status:??Oriented to person, place and time. Normal affect. Head:??Normocephalic. Eyes:??No xanthomas or scleral icterus. Extraocular muscles intact. Respiratory:??Clear to auscultation and percussion. No wheezing, rales or rhonchi. Cardiovascular:??Heart sounds normal. No thrills. Regular rate and rhythm, no murmurs, rubs or gallops. No JVD appreciated Extremities:??+2 peripheral pulses bilaterally. No edema noted. Gastrointestinal:??Abdomen soft, non-tender, non-distended. Normal bowel sounds. No pulsatile mass.No hepatosplenomegaly. Neurologic:??Cranial nerves II-XII grossly intact. Skin:??Right wrist cath site CDI- no hematoma or bleeding noted Musculoskeletal:??No cyanosis or clubbing. No gross deformities. Normal range of motion. _ Inpatient Medications Medications (19) Active SCHEDULED: (11) Aspirin 81 mg EC Tablet (Aspirin Tablet) ??81 mg, By Mouth, Daily Atorvastatin 80 mg Tablet (atorvastatin 80 mg oral tablet) ??80 mg, By Mouth, Daily at bedtime Diclofenac Topical 1% Gel (diclofenac 1% topical gel) ??4 Gm, Topically, 4 times a day Enoxaparin 40 mg Inj (Enoxaparin Inj) ??40 mg 0.4 mL, Subcutaneous Injection, Daily Finasteride 5 mg Tablet (finasteride 5 mg oral tablet) ??5 mg, By Mouth, Daily Gabapentin 300 mg Capsule (gabapentin 300 mg oral capsule) ??300 mg, By Mouth, 2 times a day Metoprolol 25mg Tablet (metoprolol 25 mg oral tablet) ??12.5 mg, By Mouth, 2 times a day NaCl 0.9% Flush 3ml (NaCL 0.9% Flush) ??3 mL, IV Push, Every 8 hours Pantoprazole 40 mg EC Tablet (pantoprazole 40 mg oral delayed release tablet) ??40 mg, By Mouth, Daily Ticagrelor 90 mg Tablet (Ticagrelor Tablet) ??90 mg 1 tablet, By Mouth, 2 times a day Triamcinolone 0.1% Cream (Triamcinolone 0.1% Topical) ??1 application, Topically, 2 times a day CONTINUOUS: (0) PRN: (8) Acetaminophen 325 mg Tablet (Acetaminophen Tablet) ??650 mg, By Mouth, Every 4 hours Albuterol 90mcg/Inhalation Inhaler HFA (Ventolin 90 mcg Inhaler) ??180 mcg 2 puffs, Inhalation, Every 4 hours Dextromethorphan-Guaifenesin 20 mg-200 mg/10 mL Liqu UD (Robitussin DM Liquid) ??10 mL, By Mouth, Every 4 hours Melatonin 3 mg Tablet (Melatonin Tablet) ??3 mg, By Mouth, Daily at bedtime NaCl 0.9% Flush 3ml (NaCL 0.9% Flush) ??3 mL, IV Push, Every 8 hours Polyethylene Glycol 17 Gm Powder (MiraLax Powder) ??17 Gm 1 pack/packet, By Mouth, Daily Senna 8.6 mg / Docusate 50 mg tablet (Docusate/Senna Tablet) ??1 tablet, By Mouth, 2 times a day Simethicone 80 mg Chewable Tablet (Simethicone Tablet) ??80 mg, Chew, 3 times a day ? Results Recent Labs BLOOD BANK Blood Type B Positive ()?? 09/08/2022 10:13 Antibody Screen Negative ()?? 09/08/2022 10:13 ?? BLOOD COUNT & DIFF WBC 7.3 k/mm3 ()?? 09/09/2022 05:06 RBC 4.59 m/mm3 (Low)?? 09/09/2022 05:06 Hgb 13.7 Gm/dL ()?? 09/09/2022 05:06 Hct 40.2 % (Low)?? 09/09/2022 05:06 MCV 87.6 femtoliters ()?? 09/09/2022 05:06 MCH 29.8 pg ()?? 09/09/2022 05:06 MCHC 34.1 g/dL ()?? 09/09/2022 05:06 Platelet Count 158 k/mm3 ()?? 09/09/2022 05:06 RDW-SD 39.6 femtoliters ()?? 09/09/2022 05:06 MPV 9.3 femtoliters (Low)?? 09/09/2022 05:06 Nucleated RBC (Automated) 0.0 #/100 WBC'S ()?? 09/09/2022 05:06 Abs. NRBC 0.0 k/mm3 ()?? 09/09/2022 05:06 Abs. Neut 6.8 k/mm3 ()?? 09/08/2022 10:27 Abs. Lymph 1.0 k/mm3 ()?? 09/08/2022 10:27 Abs. Jackson 0.4 k/mm3 ()?? 09/08/2022 10:27 Abs. Eo 0.0 k/mm3 ()?? 09/08/2022 10:27 Abs. Baso 0.0 k/mm3 ()?? 09/08/2022 10:27 Neut % 82.4 % (High)?? 09/08/2022 10:27 Lymph % 11.8 % (Low)?? 09/08/2022 10:27 Jackson % 5.2 % ()?? 09/08/2022 10:27 Eos % 0.0 % ()?? 09/08/2022 10:27 Baso % 0.1 % ()?? 09/08/2022 10:27 Imm Gran 0.5 % ()?? 09/08/2022 10:27 Abs. Imm Gran 0.0 k/mm3 ()?? 09/08/2022 10:27 ?? CARDIAC High Sensitivity Troponin (HSTnT) 338 ng/L (Critical)?? 09/09/2022 05:07 ?? CHEM GENERAL Sodium 141 mmol/L ()?? 09/09/2022 05:06 Potassium 4.3 mmol/L ()?? 09/09/2022 05:06 Chloride 106 mmol/L ()?? 09/09/2022 05:06 Bicarbonate Level 27 mmol/L ()?? 09/09/2022 05:06 Anion Gap 8 ()?? 09/09/2022 05:06 Glucose Level 112 mg/dL (High)?? 09/09/2022 05:06 Glucose, POC 179 mg/dL (High)?? 09/08/2022 10:23 BUN 16 mg/dL ()?? 09/09/2022 05:06 Creatinine-Blood 0.9 mg/dL ()?? 09/09/2022 05:06 Estimated GFR Creatinine 93 ML/MIN/1.73 M2 ()?? 09/09/2022 05:06 Calcium 9.1 mg/dL ()?? 09/09/2022 05:06 Protein, Total 6.5 Gm/dL ()?? 09/08/2022 10:27 Albumin 4.3 Gm/dL ()?? 09/08/2022 10:27 AG Ratio 2.0 ()?? 09/08/2022 10:27 Alkaline Phosphatase 54 units/L ()?? 09/08/2022 10:27 Lipase 23 units/L ()?? 09/08/2022 10:27 AST (SGOT) 18 units/L ()?? 09/08/2022 10:27 ALT (SGPT) 17 units/L ()?? 09/08/2022 10:27 Bilirubin, Total 0.6 mg/dL ()?? 09/08/2022 10:27 ?? COAG INR 1.0 ()?? 09/08/2022 10:27 Protime (PT) 10.7 seconds ()?? 09/08/2022 10:27 APTT <22.0 seconds (Low)?? 09/08/2022 10:27 ?? ENDOCRINE/TUMOR MARKER TSH 0.67 uIU/mL ()?? 09/09/2022 05:06 ?? LIPID STUDIES Cholesterol 157 mg/dL ()?? 09/09/2022 05:06 Triglycerides 91 mg/dL ()?? 09/09/2022 05:06 HDL Cholesterol 64 mg/dL ()?? 09/09/2022 05:06 LDL Cholesterol 75 mg/dL ()?? 09/09/2022 05:06 Non HDL Cholesterol 93 mg/dL ()?? 09/09/2022 05:06 ?? VIROLOGY COVID-19 by RT-PCR NEGATIVE ()?? 09/08/2022 10:27 ? Assessment/Plan Assessment:??Mr Garcia??is a 66-year-old male with past medical history of GERD, CKD, disc herniation,arthritis??in his??bilateral knees, gout, and??BPH who presents??the hospital on 09/08 with CP foundto have an??inferior STEMI now S/p RICA to the mid RCA. Echo shows a preserved EF 60-65 with basil wall HK. ?? Inferior STEMI s/p RICA RCA Pt reports he was out shoveling when suddenly developed substernal CP with nausea and SOB promptinghim to report to the hospital. EKG showing ST elevation in leads II, III, and aVF Troponin elevated at 338 09/08 pt underwent a left sided cardiac Cath in which he had a RICA to the mid RCA , no further cornoary disease noted. Echo Normal LV systolic function (EF 60-65%). Subtle, basal inferior wall hypokinesis. Normal LV diastolic function. Normal LV cavity size. Moderately increased LV wall thickness. Currently CP free ?? Plan: ??- aspirin indefinitely - continue, Brilinta for 12 months - continue Atorvastatin ??-??resume metoprolol 12.5 mg BID, hold for HR <50 ??- Hold home valsartan ??-??Pt reports that he had both an echo and stress test 1 year ago that were ultimately normal while at [facility]. Will request records. - cardiac rehab - follow up with [facility] within the next 2-4 weeks ?? Chronic stable medical conditions: ??- BPH: Cont finasteride ??- Gout: Hold home indomethacin ??- GERD: PPI ?? Quality Measures ??Code: Full ??Diet: Dental soft diet (pt has mild dysphagia at baseline) ??DVT prophylaxis: Lovenox ?? Discharge dispo: Likely discharge tomorrow ?? Case and plan discussed with Dr. Robin ? * Ying Poole RN: PERFORM, SIGN, VERIFY Event Display: Progress Note Hospital Authored Date: Patient: ADDIE GARCIA Age: 66 years Sex: Male : 1955 Associated Diagnoses: None Author: Ying Poole RN Findings Problem Related to Alteration in Cardiac Function (new) : Alteration in Cardiac Function/new 09/09/2022 12:00 EST Alteration in Cardiac Status Related to ACS, Cardiac Procedure, Chest pain Goals & Outcomes, Cardiac Status Pt will resume/maintain adequate cardiac output, Pt will resume/maintain adequate hemodynamic status, Pt will resume/maintain adequate respiratory function, Pt will resume/maintain intact neuro function, Pt will maintain adequate GI/ function appropriate for pt, Pt will maintain adequate nutrition status, Pt/caregiver will state understanding of diagnosis, Pt/caregiver will state strategies to reduce risk factors, Pt/caregiver will state understanding of procedure, Pt will state pain at procedure site to be tolerable Cardiac Interventions Implemented Assess/monitor cardiac status, Assess/monitor neuro status, Assess/monitor respiratory status, Monitor anticoagulation values, Monitor ECG w/administration of antiarrhythmics (CO 13.420), Obtain 12 Lead ECG and CXR as ordered, Teach/encourage deep breath & cough exercises, Turn & reposition Q2 hours per activity restrictions, Monitor O2 sats & end tidal CO2; treat as prescribed, Apply pressure at puncture site if hematoma develops, Assess baseline peripheral pulses, Assess for post procedural discomfort, Assess procedure site for distal pulses, Implement post procedure orders BH Goals/Interventions, Cardiac Yes Cardiac, Problem Start 09/08/2022 12:00 Reviewed Plan with, Cardiac Status Patient Patient Progression, Cardiac Status Patient progressing according to plan . Nursing Data Cardiac Data. : Cardiac Data. 09/09/2022 12:00 EST Cardiovascular Assessment Status Unchanged from recorder's assessment Cardiac Rhythm Sinus bradycardia 09/09/2022 11:00 EST Cardiac Rhythm Sinus bradycardia 09/09/2022 10:00 EST Cardiac Rhythm Sinus bradycardia 09/09/2022 9:00 EST Cardiac Rhythm Sinus bradycardia 09/09/2022 8:00 EST Cardiovascular Symptoms Chest pain Nail Bed Color, Fingers [place] Nail Bed Color, Toes [place] Skin Temperature Upper Extremities Warm Skin Temperature Lower Extremities Warm Heart Sounds S1, S2 Heart Rhythm Regular Monitoring Lead II, V5/MCL5 Atrial Rate 47 bpm Atrial Rhythm Regular Ventricular Rate 47 bpm Ventricular Rhythm Regular GA Interval 0.16 seconds GA Consistency Consistent P to QRS Ratio 1:1 QRS Duration 0.25 QRS Consistency Consistent QT Interval 0.57 Cardiac Rhythm Sinus bradycardia Capillary Refill < 3 seconds Radial Pulse, Left Normal Radial Pulse, Right Normal Dorsalis Pedis Pulse, Left Normal Dorsalis Pedis Pulse, Right Normal Edema None . Vital Signs : VITAL SIGNS SECTION 09/09/2022 12:00 EST Temperature 98.2 DegF Temperature Route Oral Heart Rate Monitored 54 bpm L Respiratory Rate 17 br/min Systolic Blood Pressure 154 mm Hg H Diastolic Blood Pressure 80 mm Hg Blood pressure sites Arm, left Pulse Pressure 74 mm Hg Oxygen Saturation 99 % Mode of Delivery (Oxygen) Room air 09/09/2022 11:00 EST Heart Rate Monitored 58 bpm Respiratory Rate 20 br/min Systolic Blood Pressure 141 mm Hg H Diastolic Blood Pressure 74 mm Hg Blood pressure sites Arm, left Pulse Pressure 67 mm Hg Oxygen Saturation 97 % Mode of Delivery (Oxygen) Room air 09/09/2022 10:52 EST Pulse Rate 63 bpm Systolic Blood Pressure 124 mm Hg Diastolic Blood Pressure 71 mm Hg 09/09/2022 10:00 EST Heart Rate Monitored 56 bpm Respiratory Rate 19 br/min Systolic Blood Pressure 124 mm Hg Diastolic Blood Pressure 71 mm Hg Blood pressure sites Arm, left Pulse Pressure 53 mm Hg Oxygen Saturation 98 % Mode of Delivery (Oxygen) Room air 09/09/2022 9:54 EST Respiratory Rate 15 br/min L 09/09/2022 9:00 EST Heart Rate Monitored 54 bpm L Respiratory Rate 17 br/min Systolic Blood Pressure 143 mm Hg H Diastolic Blood Pressure 86 mm Hg H Blood pressure sites Arm, left Pulse Pressure 57 mm Hg Oxygen Saturation 98 % Mode of Delivery (Oxygen) Room air 09/09/2022 8:54 EST Respiratory Rate 16 br/min 09/09/2022 8:18 EST Respiratory Rate 16 br/min 09/09/2022 8:00 EST Temperature 98.1 DegF Temperature Route Oral Heart Rate Monitored 48 bpm L Systolic Blood Pressure 140 mm Hg H Diastolic Blood Pressure 77 mm Hg Blood pressure sites Arm, left Pulse Pressure 63 mm Hg Oxygen Saturation 98 % Mode of Delivery (Oxygen) Room air . Evaluation P- alt in cardiac I- pt noted in sinus jerilyn and stated 4/10 chest pain, providers made aware. pt stated pain was tolerable and denied prn meds via video tip cutter services, d/t pt being mainly jesus speaking. pt out of bed to bathroom with steady gait. education provided regarding am meds, pt medicated per SEP. Right radial cath site dressing clean and intact with positive pulses, no drainage noted. Metropolol administered per provider despite bradycardia. E- pt remains hemodynamically stable. . Deprecated Cardiac rehabilitation treatment plan Progress note and attainment of goals (narrative) * Yuri YANG, Lizzette Hatfield: PERFORM, SIGN, VERIFY Event Display: Cardiac Rehab Note Authored Date: Patient: ADDIE GARCIA Age: 66 years Sex: Male : 1955 Associated Diagnoses: None Author: Yuri YANG, Lizzette Hatfield Pre-exercise Vitals Vital Signs Comment: Reviewed in CIS. Pre-exercise Physical Examination Neurologic: alert & oriented. Patient Education Education: Cv Tech present, Post procedure guidelines, Stent card reviewed. Education topic Teachback comprehension 75% Topic: Medication education, Role of exercise, Home activity guidelines/limits, Infarct recovery guidelines. Recommendation and Plan Outpatient follow up recommended: [facility]. Cardiac Rehab: Will sign off at this time. Recommendation comment: RN notified of plan. Portable XR Chest Views * Ghazalscrosamaria , CIS S: TRANSCROSAMARIA Motta MD, Neetu: SIGN Donna DURHAM, Papo V: VERIFY Event Display: Result: Authored Date: Chest Portable INDICATION:; Chest Pain; Clinical Question(s): CHF COMPARISON: None. FINDINGS: LINES AND TUBES: None. LUNGS AND PLEURA: Low lung volumes. Clear lungs. Normal pulmonary vascularity. Mild elevation of the right hemidiaphragm probably due to eventration with minimal subsegmental atelectasis right lung base. No pleural effusion. No pneumothorax. HEART, MEDIASTINUM AND KIZZY: Heart is normal in size. Normal mediastinal and hilar contour. BONES AND SOFT TISSUES: No acute abnormality. Multiple cam overlie the soft tissues of the neck. IMPRESSION: No radiographic evidence of an acute cardiopulmonary process. I have personally reviewed the images and I agree with this report. WSN: [id number] Ordering Physician: Shona Magdaleno Dictated By: Neetu Motta MD Dictated Date/Time: 09/08/22 11:08 a Reviewed By: Papo Thompson MD, V Signed By: Papo Thompson MD, V Signed Date/Time: 09/08/22 11:13 am Transcribed By: CORBY Transcribed Date/Time: 09/08/22 10:46 am Patient Care team information Care Team Personnel Name: Corina Phelan RN Position: [facility] RN Member Role: Primary Care Nurse Name: Silver Horan RN Position: S RN Member Role: Primary Care Nurse Name: Not on Staff, PCP Position: [facility] Physician (General Medicine) Member Role: PCP Name: Briana López Position: [facility] ED OA Charge Member Role: ED Associate Name: Deny Marx DO Position: [facility] Resident Member Role: Chart Review Address: Address: [address] [place] [address] [place] [address]- Care Team Related Persons Name: ERVIN GARCIA Address: home [address] [place] [address] Name: SONLEXII
--- OUTSIDE RECORDS SUMMARY | 2024-06-08 13:54 | XMS_ITS | Continuity of Care Document ---
Author Organization [facility] Address [address] [place] [address]- Care Team Providers Care Tool Room Lathe Operator Name Role Phone Brett Velásquez MD Primary Care Physician Encounter [facility] Date(s): 07/12/22 - 08/11/22 [facility] [address] [place], [place] [address] Attending Physician: Juan Vickers Admitting Physician: AdmtrJuan Referring Physician: Admtr, ArMalissa Allergies, Adverse Reactions, Alerts No Known Allergies [...] Care Physician Member Role: PCP Address: Address: [address] [place] [address]- Care Team Related Persons Name: ERVIN GARCIA Name: LEXII MILLIGAN
--- OUTSIDE RECORDS SUMMARY | 2024-06-08 13:54 | XMS_ITS | Patient Health Record ---
Author Organization [facility] Address [address] [facility] [address] [place] [address] Care Team Providers Care Laser Beam Color Scanner Operator Name Role Phone Wayne Jaimes MD Primary Care Provider JORGE L Burks Unavailable [phone] ALLERGIES No Known Allergies REASON FOR REFERRAL No Information MEDICATIONS Medication SIG (Take, Route, Frequency, Duration) Notes Start Date End Date Status Ketoconazole 2 % 1 application Externally Once a day Active Diclofenac Epolamine 1.3 % 1 patch as ne eded Externally Once a day for 30 days Not-Taking Voltaren Active Griseofulvin Ultramicrosize 250 MG 1 tablet after a meal Orally once a day for 90 days 01/13/2022 Not-Taking Jublia 10 % 1 application Externally Once a day Active Mupirocin 2 % 1 application Externally Twice a day for 30 days 01/13/2022 Not-Taking Esomeprazole Magnesium 40 MG 1 capsule Orally Once a day Active Itraconazole 100 MG 1 capsule after a me al Orally Once a day for 30 days 04/15/2022 Not-Taking Meclizine HCl 12.5 MG 2 tablets as neede d Orally 3 times daily Not-Taking Gabapentin 300 MG 1 capsule Orally bid Not-Taking Finasteride 5 MG 1 tablet Orally Once a day Not-Taking Vitamin D Not-Taking traMADol HCl 50 MG 1 tablet as needed Orally Once a day Active Sucralfate 1 GM/10ML 10 mL 1 hour before meals and at bedtime on an empty stomach Orally Four times a day Active Multivitamin Not-Oseas ing Lactulose 10 GM 1 packet Orally bid Not-Taking Triamcinolone (oint)-Silicone Active Vitamin E 400 UNIT 1 capsule Orally Onc e a day Not-Taking Diclofenac Sodium 1 % as directed Bookkeepers Supervisor ally place 1 g onto the skin bid Active Lidocaine-Prilocaine 2.5-2.5 % APPLY 1 GRAM TOPICALLY TO THE RIGHT AND LEFT FOOT TWICE A DAILY DIRECTED for 38 Active Albuterol Sulfate 108 (90 Base) MCG/ACT 1 puff as needed Inhalation every 4 hrs Active Efinaconazole 10 % 1 application Externally Once a day for 90 days Active Brilinta 90 MG 1 tablet Orally Twic e a day Not-Taking predniSONE 20 MG 1 tablet Orally Once a day Not-Taking Atorvastatin Calcium 80 MG 1 tablet Oral ly Once a day Active Tamsulosin HCl 0.4 MG 1 capsule Orally O nce a day Not-Taking Aspirin 81 MG 1 tablet Orally Once a day Active Griseofulvin Ultramicrosize 250 MG 1 tablet after a meal Orally once a day for 45 days Not-Taking Lidocaine 5 % 1 patch remove after 12 hours Externally Once a day Active Losartan Potassium 25 MG 1 tablet Orally 0.5 tab Once a day Active Tacrolimus 0.1 % 1 application to the right foot rash Externally Once a day for 30 days Active Ciclopirox 8 % 1 application Externally Once a day Not-Taking Lidocaine-Prilocaine 2.5-2.5 % APPLY 1 GRAM OF CREAM TOPICALLY TO THE RIGHT AND LEFT FOOT TWICE DAILY DIRECTED Externally twice daily for 30 days Active Pantoprazole Sodium 20 MG 1 tablet Orall y Once a day Not-Taking hydrOXYzine HCl 50 MG 1 tablet as needed Orally once a day for 30 day(s) 01/20/2021 Not-Taking PROBLEMS Problem Type ICD Code Onset Dates Problem Status W/U Status Risk SNOMED Code Notes Problem Primary osteoarthritis, right ankle and foot (M19.071) Active confirmed 286840680058138 Problem Primary osteoarthritis, left 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) Active confirmed 659841973 Problem Equinus contracture of right ankle (M24.571) Active confirmed 436122493 Problem Psoriasis (L40.9) Active confirmed 1512321 Problem Lumbar radiculopathy, right (M54.16) Active confirmed Lumbar radiculopathy (718268754) Problem Calcium pyrophosphate deposition disease (CPPD) (M11.20) Active confirmed 485946493 VITAL SIGNS Heart Rate 62 /min 12/24/2023 Temperature 97.3 degrees Fahrenheit 12/24/2023 Respiratory Rate 12 /min 12/24/2023 Height 5ft 6in in 12/24/2023 Weight 146.7 lbs 12/24/2023 BMI 23.68 kg/m2 12/24/2023 PROCEDURES Procedure Date Ordered Date Performed Result Body Sit e DRAIN/INJECT, SMALL JOINT/BURSA 06/15/2023 N/A DRAIN/INJECT, SMALL JOINT/BURSA 09/20/2023 N/A DRAIN/INJECT, SMALL JOINT/BURSA 12/24/2023 N/A DRAIN/INJECT, SMALL JOINT/BURSA 04/10/2024 N/A Encounters Encounter Location Date Provider Diagnosis [facility] [address] [address] 06/15/2023 JORGE L REDDY Onychomycosis B35.1 ; Calcium pyrophosphate deposition disease (CPPD) M11.20 ; Psoriasis L40.9 ; Hallux limitus of left foot M20.5X2 ; Hallux limitus of right foot M20.5X1 and Lumbar radiculopathy, right M54.16 [facility] [address] 09/20/2023 JORGE L REDDY Onychomycosis B35.1 ; Calcium pyrophosphate deposition disease (CPPD) M11.20 ; Psoriasis L40.9 ; Hallux limitus of left foot M20.5X2 ; Hallux limitus of right foot M20.5X1 and Lumbar radiculopathy, right M54.16 [facility] [address] [address] 12/24/2023 JORGE L REDDY Onychomycosis B35.1 ; Calcium pyrophosphate deposition disease (CPPD) M11.20 ; Psoriasis L40.9 ; Hallux limitus of left foot M20.5X2 ; Hallux limitus of right foot M20.5X1 and Lumbar radiculopathy, right M54.16 [facility] [address] [address] 04/10/2024 JORGE L REDDY Onychomycosis B35.1 ; Calcium pyrophosphate deposition disease (CPPD) M11.20 ; Psoriasis L40.9 ; Hallux limitus of left foot M20.5X2 ; Hallux limitus of right foot M20.5X1 ; Lumbar radiculopathy, right M54.16 ; Achilles tendinitis, right leg M76.61 and Achilles tendinitis, left leg M76.62 ASSESSMENTS Encounter Date Diagnosis Assessment Notes Treatment Notes Treatment Clinical Notes Section Notes 06/15/2023 Onychomycosis (ICD-10 - B35.1) I reviewed with [...] apply to each affected toenail daily. 09/20/2023 Onychomycosis (ICD-10 - B35.1) I reviewed [...] apply to each affected toenail daily. 12/24/2023 Onychomycosis (ICD-10 - B35.1) I reviewed [...] apply to each affected toenail daily. 04/10/2024 Onychomycosis (ICD-10 - B35.1) I reviewed [...] does not need another refill today. 04/10/2024 Calcium pyrophosphate deposition disease (CPPD) (ICD-10 [...] up with rheumatology regarding this issue. 09/20/2023 Calcium pyrophosphate deposition disease (CPPD) (ICD-10 [...] follows up with rheumatology regarding this issue. 06/15/2023 Calcium pyrophosphate deposition disease (CPPD) (ICD-10 - [...] currently being followed at the [facility] for CPPD. His notes were not available for review. He continues to have joint pain bilaterally. I recommended he follows up with rheumatology regarding this issue. 06/15/2023 Psoriasis (ICD-10 - L40.9) We discussed that CPPD and psoriasis can go hand in hand. We discussed that he has tried many topical steroids without improvement or resolution. He had resolution with the tacrolimus, he does not need another refill today. 09/20/2023 Psoriasis (ICD-10 - L40.9) We discussed that CPPD and psoriasis can go hand in hand. We discussed that he has tried many topical steroids without improvement or resolution. He had resolution with the tacrolimus, he does not need another refill today. 12/24/2023 Psoriasis (ICD-10 - L40.9) We discussed [...] shoes are equal. 12/24/2023 Hallux limitus of left foot (ICD-10 [...] instructed to ice/elevate the foot tonight. 09/20/2023 Hallux limitus of left foot (ICD-10 - M20.5X2) 06/15/2023 Hallux limitus of left foot (ICD-10 - [...] Pt instructed to ice/elevate the foot tonight. 06/15/2023 Hallux limitus of right foot (ICD-10 - M20.5X1) Consent was reviewed and signed by the patient for a steroid injection into the right 1st metatarsophalangeal joint. Pt agreed. 3cc total steroid injection was given into the right foot. Pt tolerated well. Post-Injection instructions were given to the patient. Pt instructed to ice/elevate the foot tonight. 12/24/2023 Hallux limitus of right foot (ICD-10 [...] bilateral night splints dispensed to the patient. 12/24/2023 Lumbar radiculopathy, right (ICD-10 - M54.16) [...] under the right 4th and 5th toes. 09/20/2023 Lumbar radiculopathy, right (ICD-10 - M54.16) [...] under the right 4th and 5th toes. 06/15/2023 Lumbar radiculopathy, right (ICD-10 - M54.16) We [...] 4th and 5th toes. 04/10/2024 Achilles tendinitis, left leg (ICD-10 - M76.62) PLAN OF TREATMENT Pending Test Test Name Order Date Body Fluid Culture, Sterile 04/30/2022 Hepatic Function Panel (7) 09/26/2020 MRI : Lower Ext Other Than Joint W/O 11/2021 X ray : Foot, left 3v 04/13/2023 X ray : Foot, left 3v 01/13/2022 X ray : Foot, right 3v 04/13/2023 X ray : Foot, right 3v 08/15/2020 X ray : Foot, right 3v 01/13/2022 DRAIN/INJECT, SMALL JOINT/BURSA 08/15/19 21 DRAIN/INJECT, SMALL JOINT/BURSA 02/18/20 21 DRAIN/INJECT, SMALL JOINT/BURSA 01/14/20 22 DRAIN/INJECT, SMALL JOINT/BURSA 06/15/20 23 DRAIN/INJECT, SMALL JOINT/BURSA 09/20/19 24 DRAIN/INJECT, SMALL JOINT/BURSA 12/24/19 24 DRAIN/INJECT, SMALL JOINT/BURSA 04/10/20 24 Next Appt Details Provider Name:JORGE L REDDY, 07/10/2024 02:45:00 PM, [address] [facility] [address], [place], [address], Insurance Providers Payer Name Payer Address Payer Phone Subscriber Number Group Number Insured Name Patient Relationship to Insured Coverage Start Date Coverage End Date [employer] medicare community plan [address] [address] [place] [address] [id number] Laina Reynolds Self - patient is the insured MEDICATIONS ADMINISTERED Medication Instructions Date of Administration Dosage Notes Dexamethasone 08/15/2020 0.5 mL Dexamethasone 02/17/2021 0.5 mL Dexamethasone 01/13/2022 0.5 mg dexAMETHasone Sod Phosphate PF 06/15/2023 0.5 m L dexAMETHasone Sod Phosphate PF 09/20/2023 0.5 m L dexAMETHasone Sod Phosphate PF 12/24/2023 0.5 m L dexAMETHasone Sod Phosphate PF 04/10/2024 0.5 m L Kenalog 08/15/2020 0.5 mL Kenalog 02/17/2021 0.5 mL Kenalog 01/13/2022 0.5 mL Kenalog 06/15/2023 0.5 mL Kenalog 09/20/2023 0.5 mL Kenalog 12/24/2023 0.5 mL Kenalog 04/10/2024 0.5 mL MEDICAL (GENERAL) HISTORY Medical History History ICD Code 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 History of thyroidectomy Z90.09 Paralysis of vocal cords and larynx, 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 Abnormal levels of other serum enzymes R 74.8 Acquired absence of other genital organ( s) Z90.79 Constipation, unspecified K59.00 Dizziness and giddiness R42 Headache, unspecified R51.9 Other chronic pain G89.29 Nontoxic single thyroid nodule E04.1 Personal history of colonic polyps Z86.0 10 Allergic rhinitis due to pollen J30.1 Benign prostatic hyperplasia with lower urinary tract symptoms N40.1 Nocturia R35.1 Zoster without complications B02.9 Inflammatory arthropathy M19.90 Intervertebral disc disorders with radic ulopathy, lumbar region M51.16 Gastro-esophageal reflux disease without esophagitis K21.9 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 vocal cord surgery 09/2019 bilateral eye surgery 03/17/2022 Hospitalization History Reason Date(Month/Year) thyroidectomy
[2024-06-08 14:18] VITALS: BP 141/81; PULSE 83; RESP 16; TEMP 36.6; O2SAT 97
== END 2024-06-08 14:30 | disposition home or self-care (01) ==
PROVIDERS: Emergency Provider Emergency Medicine Emergency Medical Services; PCP Internal Medicine
DX: S61.214A Laceration without foreign body of right ring finger without damage to nail, initial encounter (principal); W45.8XXA Other foreign body or object entering through skin, initial encounter; Y93.9 Activity, unspecified; Y92.9 Unspecified place or not applicable; Y99.9 Unspecified external cause status
CPT/HCPCS: 99282; 99283

== ENCOUNTER → 2024-06-16 15:02 | Outpatient (AMB) | payer OTHER, SELFPAY ==
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
[2024-06-16 15:15] VITALS: BP 122/62; PULSE 65; O2SAT 98; BMI 26.5
--- OUTSIDE RECORDS SUMMARY | 2024-06-21 10:46 | XMS_ITS | Continuity of Care Document ---
Author Organization [place] - [facility], [facility] Address [address] [place] [address] Care Team Providers Care Submersible Pilot Name Role Phone [place] Primary Care Provider Assessment Encounter Date Assessment Date Assessment LastModified by Organization Details LastModified Time 05/10/2024 05/10/2024 68-year-old male with GERD, asthma, and candidiasis of the mouth presents for revaluation of chronic hoarseness and sore throat. Oropharynx exam demonstrates 2mm well-circumscrib ed round black lesion on the left buccal mucosa, likely a nevi or hemangioma. Exam was normal without tongue or oral mucosa discoloration consistent with Montez. [place] on 04/21/2024 demonstrated base of tongue and vallecula white patches consistent with montez, and was otherwise normal. 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 Recommend continuing Nystatin four times daily for 2 more weeks, and reviewed medication administration. He is scheduled for voice therapy next month. He will follow up with Dr. Mccall after he completes voice therapy in 3 months, sooner with issues. Patient agrees with the plan. [email or web address] Not available 05/10/2024 16:24:58 Plan of Treatment Reminders Order Date Submit Date Provider Last Modified By Organization Details Last Modified Time Details Appointments Establish ed 2024 02:00P Geoffrey Desouza MD Not available Not available Not available Lab None recorded. Referral None recorded. Procedures None recorded. Surgeries None recorded. Imaging None recorded. Medication Orders nystatin 100,000 unit/mL oral suspensio n 2023 024 [id number], [address] [place] [address], [place], [address], 05/10/2024 16:22:57 Patient TargetsNo targets recorded. Patient InstructionsNo instructions recorded. Reason for Referral None Reported. Problems Name Problem SNOMED Code Status Onset Date Resolution Date Notes Provider Name and Address Organization Details Recorded Time Sensorine ural hearing loss of bilateral ears 592488306 Active 2019 Sensorine ural hearing loss, bilateral ; Note: Date Diagnosed : 02/26/2020 3:32 PM (H90.3) Note: Date Diagnosed : 02/26/2020 3:32 PM (H90.3) Not Available [facility] 4 00:53:14 Stomatiti s 35285352 Active 2020 Oral thrush; Note: Date Diagnosed : 04/14/2021 11:22 AM (B37.0) Not Available [facility] 4 02:18:55 Candidias is of mouth 71739879 Active 2020 Oral thrush; Note: Date Diagnosed : 04/14/2021 11:22 AM (B37.0) Not Available [facility] 4 02:18:55 Gastroeso phageal reflux disease without esophagit is 268099072 Active 2015 Gastro-es ophageal reflux disease without esophagit is; Note: Date Diagnosed : 07/22/2015 2:46 PM (K21.9) Not Available [facility] 4 02:19:18 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, unilatera l; Note: Date Diagnosed : 12/12/2019 3:31 PM (J38.01) Not Available [facility] 4 02:18:19 Dysphagia 86198726 Active 2022 Dysphagia , unspecifi ed; Note: Date Diagnosed : 10/27/2021 12:05 PM (R13.10) ; Start Date : 2 Other dysphagia ; Note: Date Diagnosed : 04/07/2023 1:44 PM (R13.19) Not Available [facility] 4 02:19:19 Benign paroxysma l positiona l vertigo 555818580 Active 2019 Benign paroxysma l vertigo, left ear; Note: Date Diagnosed : 02/26/2020 3:32 PM (H81.12) Not Available [facility] 4 02:18:20 Cough 05522667 Active 2015 Cough, unspecifi ed; Note: Changed from R05 to R05.9 ( 2 2:10 PM) , Date Diagnosed : 09/04/2015 3:10 PM (R05) Not Available [facility] 4 02:19:08 Oropharyn geal dysphagia 05333790 Active 2023 Dysphagia , oropharyn geal phase; Note: Date Diagnosed : 09/16/2023 1:19 PM (R13.12) Not Available [facility] 4 02:19:08 Hemoptysi s 70398827 Active 2023 ENEIDA MCCALL MD [address] [place] [address], [place], [address] , [place] - [facility] 4 14:33:59 Chronic sore throat 117487980 Active 2023 ENEIDA MCCALL MD [address] [place] [address], [place], [address] , [facility] - [facility] 4 14:34:04 Chronic hoarsenes s 80896479350 05 Active 2023 ENEIDA MCCALL MD [address] [place] [address], [place], [address] , [place] - [facility] 4 14:42:59 Problem Notes None recorded. Procedures Surgical History Date Name Laterality Status Provider Name and Address Organization Details Recorded Time 04/21/20 FFL_RE completed ENEIDA MCCALL MD [address] [place] [address],[place] [address], [place], [address], [place] - [facility] 04/21/2024 14:41:39 transurethral prostatectomy completed Bibi Neal [place] [facility] 05/10/2024 14:05:40 subtotal thyroidectomy completed Bibi Neal [place] - [facility] 05/10/2024 14:05:53 Imaging Results None recorded. Procedure Notes None recorded. Medical Equipment None Reported. Allergies No known drug allergies Medications Name Sig Start Date Stop Date Status Note LastModified by Organization Details LastModified Time losartan 50 mg tablet 05/06 completed Medicati on ID: [id number] B rand Name: losartan Send Method: E-Prescr ibed Sub s Allowed: subs OK Medic ationGen ericName : losartan Not Available Not Available Not Available atorvasta tin 80 mg tablet TAKE 1 TABLET BY MOUTH ONCE DAILY 05/10 completed Not Available Not Available Not Available nystatin 100,000 unit/mL oral suspensio n Take 5 mL 4 times a day by oral route for 14 days. 2023 active Not Available Not Available Not Avai lable rabeprazo le 20 mg tablet,de layed release TAKE 1 TABLET BY MOUTH IN THE MORNING active Not Available Not Available No t Available atorvasta tin 10 mg tablet TAKE 1 TABLET BY MOUTH ONCE DAILY active Not Available Not Available No t Available ibuprofen 800 mg tablet TAKE 1 TABLET BY MOUTH THREE TIMES DAILY NEEDED 05/06 completed Not Available Not Available Not Available valacyclo vir 1 gram tablet 05/06 completed Medicati on ID: [id number] D uration Value: 7 Brand Name: valacycl ovir Sen d Method: E-Prescr ibed Sub s Allowed: subs OK Medic ationGen ericName : valacycl ovir Not Available Not Available Not Available sucralfat e 100 mg/mL oral suspensio n TAKE 10 ML BY MOUTH 4 TIMES DAILY 05/06 completed Not Available Not Available Not Available betametha monicae, augmented 0.05 % topical cream SPARINGL Y APPLY CREAM TOPICALL Y TO RASH ON BACK AND LEGS TWICE DAILY FOR 1 TO 2 WEEKS, AND THEN TAKE A ONE WEEK BREAK. REPEAT IF NEEDED 05/10 completed Not Available Not Available Not Available lidocaine HCl 2 % mucosal jelly 05/10 completed Medicati on ID: [id number] D uration Value: 14 Brand Name: lidocain e HCl Send Method: E-Prescr ibed Sub s Allowed: subs OK Speci al Instruct ion: APPLY TO LEFT big toe EVERY DAY FOR PAIN Med icationG enericNa me: lidocain e HCl Not Available Not Available Not Available cimetidin e 800 mg tablet TAKE 1 TABLET BY MOUTH AT BEDTIME active Not Available Not Available No t Available aspirin 81 mg tablet,de layed release TAKE 1 TABLET BY MOUTH ONCE DAILY active Not Available Not Available No t Available tramadol 50 mg tablet TAKE 1 TABLET BY MOUTH 4 TIMES DAILY NEEDED FOR 7 DAYS 05/10 completed Not Available Not Available Not Available triamcino lone acetonide 0.1 % topical cream APPLY CREAM EXTERNAL LY TO AFFECTED AREA TWICE DAILY FOR 14 DAYS NEEDED FOR RASH 05/06 completed Not Available Not Available Not Available amoxicill in 500 mg tablet TAKE 1 TABLET BY MOUTH THREE TIMES DAILY UNTIL GONE 05/06 completed Not Available Not Available Not Available lidocaine -prilocai ne 2.5 %-2.5 % topical cream APPLY 1 GRAM OF CREAM TOPICALL Y TO THE RIGHT AND LEFT FOOT TWICE DAILY active Not Available Not Available No t Available tamsulosi n 0.4 mg capsule 05/06 completed Medicati on ID: [id number] D uration Value: 90 Brand Name: tamsulos in Send Method: E-Prescr ibed Sub s Allowed: subs OK Speci al Instruct ion: TAKE ONE CAPSULE DAILY Me dication GenericN jay: tamsulos in Not Available Not Available Not Available pantopraz ole 40 mg tablet,de layed release 07/12 completed Medicati on ID: [id number] D uration Value: 30 Brand Name: pantopra zole Sen d Method: E-Prescr ibed Sub s Allowed: subs OK Speci al Instruct ion: TAKE ONE TABLET DAILY Me dication GenericN jay: pantopra zole Not Available Not Available Not Available tacrolimu s 0.1 % topical ointment APPLY 1 APPLICAT ION OF OINTMENT TOPICALL Y TO THE RIGHT FOOT RASH ONCE DAILY 05/10 completed Not Available Not Available Not Available esomepraz ole magnesium 40 mg capsule,d elayed release TAKE 1 CAPSULE BY MOUTH ONCE DAILY active Not Available Not Available No t Available lidocaine 5 % topical patch APPLY 1 TO 3 PATCHES TOPICALL Y 12 HOURS ON AND 12 HOURS OFF ONCE DAILY FOR 30 DAYS active Not Available Not Available No t Available losartan 25 mg tablet TAKE 1 TABLET BY MOUTH ONCE DAILY active Not Available Not Available No t Available gabapenti n 300 mg capsule TAKE 1 CAPSULE BY MOUTH THREE TIMES DAILY 05/10 completed Not Available Not Available Not Available omeprazol e 20 mg capsule,d elayed release 1 capsule by mouth 07/12 completed Medicati on ID: [id number] D uration Value: 30 Prescri bed By Name: Eneida paredes MD Brand Name: omeprazo le Send Method: E-Prescr ibed Sub s Allowed: subs OK Medic ationGen ericName : omeprazo le Not Available Not Available Not Available monteluka st 10 mg tablet TAKE 1 TABLET BY MOUTH ONCE DAILY IN THE EVENING active Not Available Not Available No t Available bisacodyl 5 mg tablet,de layed release TAKE 2 TABLETS BY MOUTH AT 6PM DIRECTED 05/10 completed Not Available Not Available Not Available ibuprofen 600 mg tablet TAKE 1 TABLET BY MOUTH THREE TIMES DAILY WITH MEALS FOR 5 DAYS 05/10 completed Not Available Not Available Not Available polyethyl rosa glycol 3350 17 gram/dose oral powder 05/10 completed Medicati on ID: [id number] D uration Value: 30 Brand Name: polyethy flower glycol 3350 Sen d Method: E-Prescr ibed Sub s Allowed: subs OK Speci al Instruct ion: STIR 17GM (APPROX 1/2 CAPFUL) INTO 8 OUNCES OF WATER, OR JUICE, AND DR INK DAILY NEEDED / DIRECTED Medicat ionGener icName: polyethy flower glycol 3350 Not Available Not Available Not Available albuterol sulfate HFA 90 mcg/actua tion aerosol inhaler INHALE 2 PUFFS BY MOUTH EVERY 4 TO 6 HOURS NEEDED active Not Available Not Available No t Available ketoconaz ole 2 % topical cream APPLY CREAM TOPICALL Y TO RASH ON FEET TWICE DAILY UNTIL CLEAR 05/10 completed Not Available Not Available Not Available oxycodone 5 mg tablet TAKE 1 TABLET BY MOUTH EVERY 8 HOURS NEEDED FOR PAIN FOR UP TO 3 DAYS 05/06 completed Not Available Not Available Not Available azithromy zuly 500 mg tablet TAKE 1 TABLET BY MOUTH ONCE DAILY UNTIL GONE 05/10 completed Not Available Not Available Not Available Pain Reliever (acetamin ophen) 500 mg tablet TAKE 1 TABLET BY MOUTH EVERY 4 TO 6 HOURS NEEDED 05/06 completed Not Available Not Available Not Available Allergy Relief (diphenhy dramine) 25 mg tablet TAKE 1 TABLET BY MOUTH AT BEDTIME NEEDED FOR ITCH 05/10 completed Not Available Not Available Not Available chlorhexi dine gluconate 0.12 % mouthwash RINSE MOUTH WITH 15ML (1 CAPFUL) FOR 30 SECOUNDS IN THE MORNING AND EVENING AFTER TOOTHBRU SHING. SPIT OUT AFTER RINSING 05/10 completed Not Available Not Available Not Available peg 3350-elec trolytes 236 gram-22.7 4 gram-6.74 gram-5.86 gram solution MIX AND DRINK 4L BY MOUTH FOR ONE DOSE. MIX PREP ACOORDIN G TO DIRECTIO NS. DRINK ONE 8OZ GLASS AT YOUR OWN PACE UNTIL HALF THE GALLON IS COMPLETE D. REST AND THEN FINISH THE SECOND HALF AT YOUR OWN PACE UNTIL GALLON IS DONE. FOLLOW DIRECTIO NS BY DM FOR TIME 05/10 completed Not Available Not Available Not Available omeprazol e 20 mg tablet,de layed release 12/11 completed Medicati on ID: [id number] P rescribe d By Name: Trevon [address]ee [address], nd Name: omeprazo le Send Method: E-Prescr ibed Sub s Allowed: subs OK Speci al Instruct ion: Take 1 tablet by mouth every day before bed Medi cationGe nericNam e: omeprazo le Not Available Not Available Not Available diclofena c 1 % topical gel APPLY 4 GRAMS TOPICALL Y 4 TIMES A DAILY TO THE AFFECTED AREA(S) NEEDED FOR ARTHRITI S PAIN 05/10 completed Not Available Not Available Not Available Brilinta 90 mg tablet TAKE 1 TABLET BY MOUTH TWICE DAILY 05/06 completed Not Available Not Available Not Available Linzess 145 mcg capsule TAKE 1 CAPSULE BY MOUTH IN THE MORNING; TAKE FIRST THING IN THE MORNING WITH A FULL GLASS OF WATER. active Not Available Not Available No t Available Breo Ellipta 100 mcg-25 mcg/dose powder for inhalatio n INHALE 1 PUFF BY MOUTH EVERY DAY AT THE SAME TIME EACH DAY. active Not Available Not Available No t Available Jublia 10 % topical solution with applicato r APPLY 1 APPLICAT ION TOPICALL Y TO AFFECTED AREA ONCE DAILY active Not Available Not Available No t Available Flonase Allergy Relief 50 mcg/actua tion nasal spray,reinaldo pension 2 puff into both nostrils 10/17 completed Medicati on ID: [id number] P rescribe d By Name: Nasrinanttiffany [address], nd Name: Flonase Allergy Relief S end Method: E-Prescr ibed Sub s Allowed: subs OK Medic ationGen ericName : Flonase Allergy Relief Not Available Not Available Not Available Vitals Date Recorded Body height Body weight Provider Name and Address Organization Details Last Updated DateTime 05/10/2024 167.64 cm 77149.93 g Bibi Neal [place] - [facility] 05/10/2024 14:01:54 Social History None recorded. Functional Status None recorded. Mental Status None recorded. Family History Nothing Reported. Medical History Condition Response Hypertension Y Sleep Disorder Y GERD/Reflux Y Past Encounters Encounter ID Performer Location Encounter Start Date Encounter Closed Date Diagnosis/Indication Diagnosis SNOMED-CT Code Diagnosis ICD10 Code [id number] ENEIDA MCCALL MD [facility] [address] [address] 04/21/2024 13:44:06 04/21/2024 15:41:33 Hemoptysis 17355487 R04.2 Chronic sore throat 2754 59197 J31.2 Gastroesop hageal reflux disease without esophagitis 834926497 K21.9 Candidiasis of mouth 797 24330 B37.0 Chronic hoarseness 01560 84282 105 R49.0 [id number] VELASQUEZ GONZALEZ MD [facility] [address] [address] 05/10/2024 13:45:35 05/10/2024 15:10:38 Candidiasis of mouth 24204070 B37.0 Chronic hoarseness 67999 81940 105 R49.0 Chronic sore throat 2754 65029 J31.2 Gastroesop hageal reflux disease without esophagitis 028900960 K21.9 Health Concerns Section Related Observation LastModified by Organization Detai ls LastModified Time None Recorded Concern Status LastModified by Organization Details LastModified Time None Recorded Payers Encounter Date Sequence Insurance Name Policy Number Policy Ayala Covered Member ID Ayala Member ID Guarantor Name 05/10/2024 1 [facility] Laina Lewis [id number] Laina Lewis Notes Date Note Type Note Provider Name and Address Organization Details Recorded Time 05/10/2024 text/html 68-year-old male with GERD, asthma, and candidiasis of the mouth presents for revaluation of chronic hoarseness and sore throat. He was seen by Dr. Mccall for hemoptysis on 04/21/2020. At that time, his exam was normal and FL demonstrated base of tongue and vallecula white patches consistent with montez. He trialed Nystatin QID for 1 week with minimal symptom relief. He is scheduled to meet with a voice therapist on May 26. He has continued esomeprazole and sucralfate for GERD. He started taking Breo Ellipta, Albuterol, and Monteleukast for asthma about one month ago. Non smoker. Denies dysphagia or hemoptysis. 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 Vocal cord paralysis resolved 09/28/2020 on FL. Normal MBS. VELASQUEZ QUINTERO MD [address] [place] [address], [place], [address], [facility] - [facility] 05/11/2024 12:34:14
--- OUTSIDE RECORDS SUMMARY | 2024-06-21 10:46 | XMS_ITS | Data Portability ---
Author Organization [facility], Allergy Address [address] [address] Care Team Providers Care Civil Estimator Name Role Phone SUMMER LOWE Primary Care Provider [phone] Assessment Encounter Date Assessment Date Assessment LastModified [...] Organization Details Last Modified Time Details Appointments Estab shed 30 2024 02:00P M ENEIDA Desouza MD Not available Not available Not available Lab None trevin peraza Referral speech therapy referra l - Appt 05/26 @ 8:30am 2023 024 [facility], [address], [place], [address], 05/01/2024 16:23:00 Procedures None recorde d. Surgeries None recorde d. Imaging None recorde d. Medication Orders nystati n 100,000 unit/mL oral suspens ion 2023 [facility] [address] [place] [address], [id number], 04/21/2024 14:42:09 nystati n 100,000 unit/mL oral suspens ion 2023 [facility] [address], [address] [place] [address], [id number], 05/10/2024 16:22:57 Patient TargetsNo targets recorded. Patient InstructionsNo instructions recorded. Reason for Referral Appt 05/26 @ 8:30am Referring Physician: Enedia Mccall Otolaryngology, Encounter Date: 04/21/2024 Problems Name Problem SNOMED Code Status Onset Date Resolution Date Notes Provider Name and Address Organization Details Recorded Time Sensorine ural hearing loss of bilateral ears 311086719 Active 2019 Sensorine ural hearing loss, bilateral ; Note: Date Diagnosed : 02/26/2020 3:32 PM (H90.3) Note: Date Diagnosed : 02/26/2020 3:32 PM (H90.3) Not Available [facility] 00:53:14 Stomatiti s 91643613 Active 2020 Oral thrush; Note: Date Diagnosed : 04/14/2021 11:22 AM (B37.0) Not Available [facility] 02:18:55 Candidias is of mouth 95421323 Active 2020 Oral thrush; Note: Date Diagnosed : 04/14/2021 11:22 AM (B37.0) Not Available [facility] 4 02:18:55 Gastroeso phageal reflux disease without esophagit is 532189090 Active 2015 Gastro-es ophageal reflux disease without esophagit is; Note: Date Diagnosed : 07/22/2015 2:46 PM (K21.9) Not Available [facility] 4 02:19:18 Paralysis of larynx 43274171 Active 2019 Paralysis of vocal cords and larynx, unilatera l; Note: Date Diagnosed : 12/12/2019 3:31 PM (J38.01) Not Available [facility] 4 02:18:19 Dysphagia 34827239 Active 2022 Dysphagia , unspecifi ed; Note: Date Diagnosed : 10/27/2021 12:05 PM (R13.10) ; Start Date : 2 Other dysphagia ; Note: Date Diagnosed : 04/07/2023 1:44 PM (R13.19) Not Available [facility] 4 02:19:19 Benign paroxysma l positiona l vertigo 157987011 Active 2019 Benign paroxysma l vertigo, left ear; Note: Date Diagnosed : 02/26/2020 3:32 PM (H81.12) Not Available [facility] 4 02:18:20 Cough 70049439 Active 2015 Cough, unspecifi ed; Note: Changed from R05 to R05.9 ( 2 2:10 PM) , Date Diagnosed : 09/04/2015 3:10 PM (R05) Not Available [facility] 4 02:19:08 Oropharyn geal dysphagia 77513938 Active 2023 Dysphagia , oropharyn geal phase; Note: Date Diagnosed : 09/16/2023 1:19 PM (R13.12) Not Available [facility] 4 02:19:08 Hemoptysi s 77856267 Active 2023 ENEIDA MCCALL MD 100 [facility],[place] [address], [place], [address] , [place] [facility] 4 14:33:59 Chronic sore throat 927767750 Active 2023 ENEIDA MCCALL MD 100 [facility] 100, [place], [address] , [place] [facility] 4 14:34:04 Chronic hoarsenes s 10254008649 05 Active 2023 ENEIDA MCCALL MD 100 [facility],[place] [address], [place], [address] , [place] [facility] 14:42:59 Problem Notes None recorded. Procedures Surgical History Date Name Laterality Status Provider Name and Address Organization Details Recorded Time 04/21/20 24 FFL_RE completed ENEIDA MCCALL MD [address] [facility],[place] [address], [place], [address], [place] [facility] 04/21/2024 14:41:39 transurethral prostatectomy completed Bibi Neal [facility] 05/10/2024 14:05:40 subtotal thyroidectomy completed Bibi Neal [facility] 05/10/2024 14:05:53 Imaging Results None recorded. Procedure Notes None recorded. Medical Equipment None Reported. Allergies No known drug allergies Medications Name Sig Start Date Stop Date Status Note LastModified by Organization Details LastModified Time losartan 50 mg tablet 05/06 completed Medicati on ID: [id number] B rand Name: losartan Send Method: E-Prescr [...] gram tablet 05/06 completed Medicati on ID: [id number] D uration Value: 7 Brand Name: valacycl ovir Sen d Method: E-Prescr ibed Sub s Allowed: subs OK Medic ationGen ericName : valacycl ovir Not Available Not Available Not Available sucralfat e 100 mg/mL oral suspensio n TAKE 10 ML BY MOUTH 4 TIMES DAILY 05/06 completed Not Available Not Available Not Available betametha sone, augmented 0.05 % topical cream SPARINGL Y APPLY CREAM TOPICALL Y TO RASH ON BACK AND LEGS TWICE DAILY FOR 1 TO 2 WEEKS, AND THEN TAKE A ONE WEEK BREAK. REPEAT IF NEEDED 05/10 completed Not Available Not Available Not Available lidocaine HCl 2 % mucosal jelly 05/10 completed Medicati on ID: [id number] D uration Value: 14 Brand Name: lidocain [...] mg capsule 05/06 completed Medicati on ID: [id number] D uration Value: 90 Brand Name: tamsulos in Send Method: E-Prescr ibed Sub s Allowed: subs OK Speci al Instruct ion: TAKE ONE CAPSULE DAILY Me dication GenericN jay: tamsulos in Not Available Not Available Not Available pantopraz ole 40 mg tablet,de layed release 07/12 completed Medicati on ID: [id number] D uration Value: 30 Brand Name: pantopra zolclifford Sen d Method: E-Prescr ibed Sub s [...] by mouth 07/12 completed Medicati on ID: [id number] D uration Value: 30 Prescri bed By [...] oral powder 05/10 completed Medicati on ID: [id number] D uration Value: 30 Brand Name: polyethy [...] layed release 12/11 completed Medicati on ID: [id number] Jennifer bar By Name: [address], nd Name: [...] both nostrils 10/17 completed Medicati on ID: [id number] Jennifer bar By Name: [address], nd Name: Flonase Allergy Relief S end Method: E-Prescr ibed Sub s Allowed: subs OK Medic ationGen ericName : Flonase Allergy Relief Not Available Not Available Not Available Vitals Date Recorded Body height Body mass index (BMI) Body weight Provider Name and Address Organization Details Last Updated DateTime 04/21/2024 167.64 cm 27 kg/m2 82596.93 g Aakash Weaver [facility] 04/21/2024 14:00:43 Date Recorded Body height Body weight Provider Name and Address Organization Details Last Updated DateTime 05/10/2024 167.64 cm 87894.93 g Bibi Neal [facility] 05/10/2024 14:01:54 Social History None recorded. Functional Status None recorded. Mental Status None recorded. Family History Nothing Reported. Medical History Condition Response Hypertension Y Sleep Disorder Y GERD/Reflux Y Past Encounters Encounter ID Performer Location Encounter Start Date Encounter Closed Date Diagnosis/Indication Diagnosis SNOMED-CT Code Diagnosis ICD10 Code [id number] ENEIDA MCCALL MD [facility] [address] [address] 04/21/2024 13:44:06 04/21/2024 15:41:33 Hemoptysis 35492921 R04.2 Chronic sore throat 2754 20826 J31.2 Gastroesop hageal reflux disease without esophagitis 483895083 K21.9 Candidiasis of mouth 797 71505 B37.0 Chronic hoarseness 57194 57795 105 R49.0 [id number] VELASQUEZ GONZALEZ MD [facility] [address] [place] [address] 05/10/2024 13:45:35 05/10/2024 15:10:38 Candidiasis of mouth 85339597 B37.0 Chronic hoarseness 97881 31166 105 R49.0 Chronic sore throat 2754 83954 J31.2 Gastroesop hageal reflux disease without esophagitis 447087642 K21.9 Health Concerns Section Related Observation LastModified by Organization Detai ls LastModified Time None Recorded Concern Status LastModified by Organization Details LastModified Time None Recorded Advance Directives Directive None Recorded Payers Encounter Date Sequence Insurance Name Policy Number Policy Ayala Covered Member ID Ayala Member ID Guarantor Name 04/21/2024 1 [facility] Laina Lewis [id number] Laina Lewis 05/10/2024 1 [facility] Laina Lewis [id number] Laina Lewis Notes Date Note Type Note Provider Name and Address Organization Details Recorded Time 04/21/2024 text/html 1 month ago he c oughed up some blood from his throat for 3 days. He has some intermittent pain and he feels the pain has become more constant. He says his swallowing has gotten slightly worse. Had an MBS 08/2023 which did not show aspiration. He has met with a voice therapist for his hoarseness and he is interested in more voice therapy. He does not smoke. He is on esomeprazole for GERD for the last 10 months. He is also on sulcralfate. 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 VC paralysisresolved on last FOL in September 2020. ENEIDA MCCALL MD 100 [facility],[place] [address], [place], [address], [place] [facility] 04/21/2024 14:43:45 05/10/2024 text/html 68-year-old male with GERD, asthma, [...] on [place]. Normal MBS. VELASQUEZ QUINTERO MD 100 [facility] 100, [place], [address], [place] [facility] 05/11/2024 12:34:14
--- OUTSIDE RECORDS SUMMARY | 2024-06-21 10:46 | XMS_ITS | Continuity of Care Document ---
Author Organization [place] [facility], [facility] Address [address] [place] [address] Care Team Providers Care Technical Services Librarian Name Role Phone DebbieCEDILLO SUMMER Primary Care Provider Assessment No assessment recorded. Plan of Treatment Reminders Order Date Submit Date Provider Last Modified By Organization Details Last Modified Time Details Appointments Establi shed 30 2024 02:00P M ENEIDA Desouza MD Not available Not available Not available Lab None recorde d. Referral speech therapy referra l - Appt 05/26 @ 8:30am 2023 024 [facility], [address] [place] [address], [id number], 05/01/2024 16:23:00 Procedures None recorde d. Surgeries None recorde d. Imaging None recorde d. Medication Orders nystati n 100,000 unit/mL oral suspens ion 2023 024 [facility], [address] [place] [address], [id number], 04/21/2024 14:42:09 Patient TargetsNo targets recorded. Patient InstructionsNo instructions recorded. Reason for Referral Appt 05/26 @ 8:30am Referring Physician: Eneida Mccall, Otolaryngology, Encounter Date: 04/21/2024 Problems Name Problem SNOMED Code Status Onset Date Resolution Date Notes Provider Name and Address Organization Details Recorded Time Sensorine ural hearing loss of bilateral ears 320433134 Active 2019 Sensorine ural hearing loss, bilateral ; Note: Date Diagnosed : 02/26/2020 3:32 PM (H90.3) Note: Date Diagnosed : 02/26/2020 3:32 PM (H90.3) Not Available [facility] 4 00:53:14 Stomatiti s 99633889 Active 2020 Oral thrush; Note: Date Diagnosed : 04/14/2021 11:22 AM (B37.0) Not Available [facility] 4 02:18:55 Candidias is of mouth 08859506 Active 2020 Oral thrush; Note: Date Diagnosed : 04/14/2021 11:22 AM (B37.0) Not Available [facility] 4 02:18:55 Gastroeso phageal reflux disease without esophagit is 399106237 Active 2015 Gastro-es ophageal reflux disease without esophagit is; Note: Date Diagnosed : 07/22/2015 2:46 PM (K21.9) Not Available [facility] 4 02:19:18 Paralysis of larynx 02587338 Active 2019 Paralysis of vocal cords and larynx, unilatera l; Note: Date Diagnosed : 12/12/2019 3:31 PM (J38.01) Not Available [facility] 4 02:18:19 Dysphagia 35094710 Active 2022 Dysphagia , unspecifi ed; Note: Date Diagnosed : 10/27/2021 12:05 PM (R13.10) ; Start Date : 2 Other dysphagia ; Note: Date Diagnosed : 04/07/2023 1:44 PM (R13.19) Not Available [facility] 4 02:19:19 Benign paroxysma l positiona l vertigo 060656169 Active 2019 Benign paroxysma l vertigo, left ear; Note: Date Diagnosed : 02/26/2020 3:32 PM (H81.12) Not Available [facility] 4 02:18:20 Cough 34648525 Active 2015 Cough, unspecifi ed; Note: Changed from R05 to R05.9 ( 2 2:10 PM) , Date Diagnosed : 09/04/2015 3:10 PM (R05) Not Available [facility] 4 02:19:08 Oropharyn geal dysphagia 58882144 Active 2023 Dysphagia , oropharyn geal phase; Note: Date Diagnosed : 09/16/2023 1:19 PM (R13.12) Not Available [facility] 4 02:19:08 Hemoptysi s 39956063 Active 2023 ENEIDA MCCALL MD 100 [facility],[place] [address], [place], [address] , [facility] 4 14:33:59 Chronic sore throat 073867284 Active 2023 ENEIDA MCCALL MD [address] [place] [address],[place] [address], [place], [address] , [facility] 4 14:34:04 Chronic hoarsenes s 03318744894 05 Active 2023 ENEIDA MCCALL MD [address] [place] [address],[place] [address], [place], [address] , [facility] 14:42:59 Problem Notes None recorded. Procedures Surgical History Date Name Laterality Status Provider Name and Address Organization Details Recorded Time 04/21/20 FFL_RE completed ENEIDA MCCALL MD [address] [place] [address],[place] [address], [place], [address], [facility] 04/21/2024 14:41:39 transurethral prostatectomy completed Bibi Neal [place] - [facility] 05/10/2024 14:05:40 subtotal thyroidectomy completed Bibi Neal [place] [facility] 05/10/2024 14:05:53 Imaging Results None recorded. Procedure Notes None recorded. Medical Equipment None Reported. Allergies No known drug allergies Medications Name Sig Start Date Stop Date Status Note LastModified by Organization Details LastModified Time losartan 50 mg tablet 05/06 completed Medicati on ID: [id number] B rand Name: losartan Send Method: E-Prescr [...] gram tablet 05/06 completed Medicati on ID: [id number] D uration Value: 7 Brand Name: valacycl [...] mucosal jelly 05/10 completed Medicati on ID: [id number] D uration Value: 14 Brand Name: lidocain [...] mg capsule 05/06 completed Medicati on ID: [id number] D uration Value: 90 Brand Name: tamsulos in Send Method: E-Prescr ibed Sub s Allowed: subs OK Speci al Instruct ion: TAKE ONE CAPSULE DAILY Me dication GenericN jay: tamsulos in Not Available Not Available Not Available pantopraz ole 40 mg tablet,de layed release 07/12 completed Medicati on ID: [id number] D uration Value: 30 Brand Name: pantopra [...] by mouth 07/12 completed Medicati on ID: [id number] D uration Value: 30 Prescri bed By [...] oral powder 05/10 completed Medicati on ID: [id number] D uration Value: 30 Brand Name: polyethy [...] layed release 12/11 completed Medicati on ID: [id number] Jennifer bar By Name: [address], nd Name: omeprazo le Send Method: E-Prescr ibed Sub s Allowed: subs OK Speci al Instruct ion: Take 1 tablet by mouth every day before bed Medi cation nericNam e: omeprazo le Not Available Not [...] both nostrils 10/17 completed Medicati on ID: [id number] Jennifer bar By Name: [address], nd Name: Flonase Allergy Relief S end Method: E-Prescr ibed Sub s Allowed: subs OK Medic ationGen ericName : Flonase Allergy Relief Not Available Not Available Not Available Vitals Date Recorded Body height Body mass index (BMI) Body weight Provider Name and Address Organization Details Last Updated DateTime 04/21/2024 167.64 cm 27 kg/m2 64073.93 g Aakash Weaver [facility] 04/21/2024 14:00:43 Social History None recorded. Functional Status None recorded. Mental Status None recorded. Family History Nothing Reported. Medical History Condition Response Sleep Disorder Y GERD/Reflux Y Hypertension Y Past Encounters Encounter ID Performer Location Encounter Start Date Encounter Closed Date Diagnosis/Indication Diagnosis SNOMED-CT Code Diagnosis ICD10 Code [id number] ENEIDA MCCALL MD [facility] [address] [address] 04/21/2024 13:44:06 04/21/2024 15:41:33 Hemoptysis 82959727 R04.2 Chronic sore throat 2754 01882 J31.2 Gastroesop hageal reflux disease without esophagitis 180897981 K21.9 Candidiasis of mouth 797 07817 B37.0 Chronic hoarseness 88668 84528 105 R49.0 Health Concerns Section Related Observation LastModified by Organization Detai ls LastModified Time None Recorded Concern Status LastModified by Organization Details LastModified Time None Recorded Payers Encounter Date Sequence Insurance Name Policy Number Policy Ayala Covered Member ID Ayala Member ID Guarantor Name 04/21/2024 1 [facility] Laina Lewis [id number] Laina Lewis Notes Date Note Type Note [...] FOL in September 2020. ENEIDA MCCALL MD [address] [place] [address], [place], [address], [facility] 04/21/2024 14:43:45
== END ==
PROVIDERS: PCP Internal Medicine; Visit Provider Internal Medicine
DX: S61.211A Laceration without foreign body of left index finger without damage to nail, initial encounter (principal)

== ENCOUNTER → 2024-06-16 15:02 | Outpatient (BNVA) | payer OTHER, SELFPAY | PROVIDERS: PCP Internal Medicine; Visit Provider Internal Medicine | DX: S61.215D Laceration without foreign body of left ring finger without damage to nail, subsequent encounter (principal) | CPT/HCPCS: 99212 ==

== ENCOUNTER 2024-07-11 09:32 | Day surgery (SDC) | payer OTHER, SELFPAY ==
[2024-07-07 12:15] VITALS: BMI 26.5
[2024-07-11] MEDS: Lactated Ringers 1,000 ML 80 ML IVCONT (09:52)
[2024-07-11 10:00] VITALS: BP 145/81; PULSE 67; RESP 18; TEMP 36.7; O2SAT 96
--- NOTE | 2024-07-11 10:04 | MHC.SHP ---
Pre-Procedural Eval Section A - 24 Hr Update-Section A only Date of Service: 07/11/24 Section B - Complete if H&P > 30 days Chief Complaint: gerd,esophageal obstruction,gastritis no bleed Details of Present Illness: Generalized osteoarthritis GERD with history of esophageal stricture Gout Thyroid nodules * SURGICAL HISTORY Cataract excision Thyroid surgery Prostate surgery * Present Medications: see Short Stay Collaborative assessment Allergies: Allergies Allergy/AdvReac Type Severity Reaction Status Date / Time No Known Allergies Allergy Verified 07/11/24 09:45 Review of Systems Review of Systems Comment: Ten point ROS negative Exam Exam Comment: Gen appear: No acute distress HEENT: no icterus Chest: No overt resp distress Abd: soft, nontender, nondistended Psych: Stable affect, answering questions appropriately Neuro: A/Ox3 noted to move all extremities spontaneously Ext: no peripheral edema Plan Diagnosis/Plan: Unchanged I have reviewed the history and physical and performed a pertinent physical examination on my patient. No changes have occurred unless specified. Seen with the help of Lithuanian locomotive boilermaker Time Spent With Patient Time: Total time managing care of this patient today ____ minutes.
--- NOTE | 2024-07-11 10:36 | HO.ANESPROP2 ---
[facility] Active Problems Active Problems: All Active Problems Finger laceration with complication (Acute) Chronic idiopathic constipation (Acute) Erosive gastritis (Acute) Thyroid nodule (Acute) Esophageal stricture (Acute) GERD with esophagitis (Acute) CAD (coronary artery disease) (Acute) Perianal dermatitis (Acute) Acute gouty arthritis (Acute) Osteoarthritis, hand (Acute) Flexor tenosynovitis of finger (Acute) JOE positive (Acute) Osteoarthritis of knees, bilateral (Acute) Bilateral hand pain (Acute) Multiple joint pain (Acute) Contact dermatitis (Acute) Past Medical History Medical History Encounter to establish care Trigger finger Thyroid nodule Functional capacity: independent ambulation Family History Family History Sister Arthritis Mother Heart disease Lung cancer Father Hypertension Sister Thyroid cancer Family history of problems with anesthesia: No Surgical History Surgical History H/O colonoscopy History of esophagogastroduodenoscopy (EGD) Hx of cataract extraction History of thyroid surgery History of prostate surgery History of Problems with Anesthesia: No Social History Social History Household Members: Spouse Housing: Apartment Are you a primary hourly caregiver to a significant other at home: No Do you presently have visiting nurse or other home services: No Alcohol intake: never Patient Tobacco Use Status: Never used Tobacco e-Cigarette/Vaping Use: Never Used Second Hand Smoke Exposure: No Have you been hit, kicked, punched, or otherwise hurt by someone within the past year? 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 Current occupational exposures/hazards: No Cognitive needs: No Hearing needs: No Vision needs: No Meds Allergies Allergy/AdvReac Type Severity Reaction Status Date / Time No Known Allergies Allergy Verified 07/11/24 09:45 Active Medications: Current Medications Lactated Ringer's (Lr) 1,000 mls @ 80 mls/hr IVCONT .[id number] PENDING SALE TO [facility] Last Admin: 07/11/24 09:52 Dose: 80 mls/hr Home Medications ?Medication ?Instructions ?Recorded ?Confirmed ?Last Taken ?Type losartan 25 mg tablet 25 mg PO DAILY 04/14/21 07/11/24 Unknown History aspirin 81 mg tablet,delayed 81 mg PO DAILY 10/12/22 07/11/24 Unknown History release gabapentin 300 mg capsule 300 mg PO BID 10/12/22 07/11/24 Unknown History efinaconazole 10 % topical 1 appl topical DAILY 02/08/24 07/11/24 Unknown History solution with applicator (Jublia) ketoconazole 2 % topical cream appl topical BID 02/08/24 03/01/24 Unknown History lidocaine-prilocaine 2.5 %-2.5 % 1 g topical BID 02/08/24 07/11/24 Unknown History topical cream fluticasone furoate 100 1 ea inhalation DAILY 04/17/24 07/11/24 07/11/24 History mcg-vilanterol 25 mcg/dose inhalation powder (Breo Ellipta) montelukast 10 mg tablet 10 mg PO QPM 04/17/24 07/11/24 Unknown History betamethasone, augmented 0.05 % appl topical 04/26/24 Unknown History topical cream atorvastatin 10 mg tablet 10 mg PO DAILY 05/19/24 07/11/24 Unknown History Exam Height,Weight and Vital Signs: Height 5 ft 4 in Weight 70.08 kg Last Vital Signs Temp 98.1 F 07/11/24 10:00 Pulse 67 07/11/24 10:00 Resp 18 07/11/24 10:00 BP 145/81 H 07/11/24 10:00 Pulse Ox 96 07/11/24 10:00 O2 Del Method Room Air 07/11/24 10:00 Airway Mallampati Class: II TM Dist: <=3cm Neck ROM: Full Heart: RRR Lungs: CTA Assessment and Plan Assessment Anesthesia Assessment: Anesthesia Plan Discussed and Chart Reviewed Final Anesthetic Review Family History of Problems with Anesthesia: No History of Problems with Anesthesia: No NPO: Yes ASA Class: II Final Preanesthetic Review: Meds/Allgs Chart Reviewed, Consent Obtained/Reviewed and Anes Risks/Benef Reviewed Patient Risk: Low Procedure Risk: Low Anesthetic Plan Anesthetic Plan: MAC: Disposition: Standard PACU
[2024-07-11 11:27] VITALS: BP 99/62; PULSE 55; RESP 16; TEMP 36.1; O2SAT 95
--- NOTE | 2024-07-11 11:34 | P.OP_ITS ---
Operative Note Operative Note Date of Service: 07/11/24 Narrative: Procedure: Esophagogastroduodenoscopy Endoscopist: Hawa Keith MD Indication: Hx of gastritis, high risk of gastric ca due to ethnicity Anesthesia Provider: Dr Izzy Kruse Anesthesia Type: MAC ?? EGD Procedure:?? The procedure, indications, preparation and potential complications were reviewed with the patient with the help of a [place] first calender worker, who indicated understanding and gave written informed consent to proceed. A physical exam was performed. The endoscope was introduced through the mouth, and advanced to the second part of duodenum. The mucosa was carefully examined on slow withdrawal of the endoscope. The patient tolerated the procedure well. There were no immediate complications.? ? EGD Findings:? * Esophagus:? Normal mucosa noted in the entire esophagus. The Z line was at 38 cm displaced by a small hiatal hernia with the diaphragmatic pinch at 40 cm. There was edema and nodularity at the GE junction, which was biopsied with cold forceps. * Stomach:? A small healing ulcer noted along the lesser curvature in the pre- pyloric area. Cold forceps biopsies were taken for histology. Cold forceps biopsies were also taken as per Carmen protocol to screen for GIM and gastric ca. * Duodenum:? Normal mucosa was noted in the whole of the examined duodenum. ? EGD Impressions:? * GE junction nodule (biopsy) * Gastritis and healing ulcer (biopsy) * Normal duodenum ?? Recommendations:?? * Follow biopsy results. Our office will call or send a letter with results within 7-10 days. * Continue PPI therapy. * If H pylori +, patient will be prescribed eradication therapy followed by test of cure. * Avoid NSAIDs. * Consider repeat EGD every 2 years for screening of gastric ca till age 75 (pt is [place]). Above has been reviewed with the patient.
[2024-07-11 11:43] VITALS: BP 121/76; PULSE 53; RESP 16; TEMP 36.1; O2SAT 96
[2024-07-11 11:58] VITALS: BP 107/77; PULSE 50; RESP 16; TEMP 36.1; O2SAT 96
--- NOTE | 2024-07-11 12:17 | HO.INF ---
english exploration manager utilized
--- NOTE | 2024-07-11 12:31 | HO.POSTANES ---
Post Anesthesia Evaluation Post Anesthesia Evaluation Date of Service: 07/11/24 Vital Signs: Vital Signs Temp Pulse Resp BP Pulse Ox O2 Del Method 07/11/24 11:58 97 F 50 16 107/77 96 Room Air 07/11/24 11:43 97 F 53 16 121/76 96 Room Air 07/11/24 11:27 97 F 55 16 99/62 95 Room Air 07/11/24 10:00 98.1 F 67 18 145/81 H 96 Room Air Anesthesia: Monitored Mental Status: Awake Pain Control: Satisfactory Nausea/Vomiting: None Hydration: Adequate Anesthesia-Related Issues: No Anes. Related Issues
== END 2024-07-11 12:30 | disposition home or self-care (01) ==
PROVIDERS: PCP Internal Medicine; Visit Provider Internal Medicine
PROC: 0DJ08ZZ Inspection of Upper Intestinal Tract, Via Natural or Artificial Opening Endoscopic (ICD-10-PCS; CPT 43235; principal; 2024-07-11 11:10)
DX: K21.00 Gastro-esophageal reflux disease with esophagitis, without bleeding (principal); K22.82 Esophagogastric junction polyp; K29.50 Unspecified chronic gastritis without bleeding; K25.9 Gastric ulcer, unspecified as acute or chronic, without hemorrhage or perforation; K44.9 Diaphragmatic hernia without obstruction or gangrene; M10.9 Gout, unspecified; K58.1 Irritable bowel syndrome with constipation; Z79.899 Other long term (current) drug therapy; Z98.890 Other specified postprocedural states
CPT/HCPCS: 43239; 88305; 88313; 88342; J2003; J2704

== ENCOUNTER → 2024-07-11 09:32 | Outpatient (BNV) | payer OTHER, SELFPAY | PROVIDERS: PCP Internal Medicine; Visit Provider Internal Medicine | DX: K29.70 Gastritis, unspecified, without bleeding (principal); K25.9 Gastric ulcer, unspecified as acute or chronic, without hemorrhage or perforation; K22.82 Esophagogastric junction polyp | CPT/HCPCS: 43239 ==

== ENCOUNTER 2024-07-17 13:52 | Outpatient (AMB) | payer OTHER, SELFPAY ==
[2024-07-17 14:07] VITALS: BP 108/60; PULSE 63; BMI 28.8
--- NOTE | 2024-07-17 14:07 | MHC.OFFVIS ---
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 Required: Yes 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 Name: TERRY [id number] Allergies No Known Allergies Allergy (Verified 07/11/24 09:45) Medication List - Last Reconciled 07/17/24 by Gino Pinto MD albuterol sulfate 90 mcg/actuation 2 puffs inhalation Q4H PRN aspirin 81 mg PO DAILY atorvastatin 10 mg PO DAILY betamethasone, augmented 0.05 % appl topical cimetidine 800 mg PO BEDTIME diclofenac sodium 1% 1 g topical BID 90 days efinaconazole 10% (Jublia) 1 appl topical DAILY fluticasone furoate-vilanterol 100-25 mcg/dose (Breo Ellipta) 1 ea inhalation DAILY gabapentin 300 mg PO BID ketoconazole 2% appl topical BID lidocaine-prilocaine 2.5-2.5 % 1 g topical BID linaclotide (Linzess) 145 mcg PO QAM losartan 25 mg PO DAILY montelukast 10 mg PO QPM rabeprazole (AcipHex) 20 mg PO QAM HPI Comments Details: Thank you for referring Mr. Lewis in cardiology consultation today for management of cardiovascular disease. He is a pleasant [id number] Koran male who speaks Czech. History was obtained with help of educational sign language interpreter over the video phone. Patient said about 2 years ago while shoveling snow he had severe chest pain and lightheadedness and ended up going to [facility] where he was noted to have STEMI although appears to be inferior STEMI at which point time he underwent emergent cardiac catheterization underwent drug-eluting stent placement to the RCA. He had moderate disease in the LAD and mild disease in the circumflex artery at that time by cardiac catheterization which were both left medically manage. Since then he has had intermittent episodes of precordial chest pain which is not typical or exertional. He says he does not remind him of his myocardial infarction pain. However he does complain of exertional shortness of breath. He has history of hypertension. No history of diabetes. Currently on low intensity statin therapy with 10 mg of atorvastatin. No recent lipid panel. He recently underwent upper GI endoscopy for chest pain which showed mild gastritis but no active inflammation in the esophagus or the stomach. Patient comes for a 2nd opinion cardiology consultation today to reestablish care in the current health system. [facility] Medical History Encounter to establish care Trigger finger Thyroid nodule Surgical History H/O colonoscopy History of esophagogastroduodenoscopy (EGD) Hx of cataract extraction History of thyroid surgery History of prostate surgery Family History Sister Arthritis Mother Heart disease Lung cancer Father Hypertension Sister Thyroid cancer Social History Household Members: Spouse Housing: Apartment Are you a primary livestock caretaker to a significant other at home: No Do you presently have visiting nurse or other home services: No Alcohol intake: never Patient Tobacco Use Status: Never used Tobacco e-Cigarette/Vaping Use: Never Used Second Hand Smoke Exposure: No service: No Current occupational status: employed 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 Current occupational exposures/hazards: No Cognitive needs: No Hearing needs: No Vision needs: No Review of Systems Const Denies weakness ENT Denies dizziness Card Reports chest pain, Denies chest pain with activity, Denies syncope, Denies rapid heart rate, Denies pedal edema, Denies edema, Denies leg edema, Denies lightheadedness, Reports palpitations, Reports dyspnea, Denies dyspnea on exertion and Denies orthopnea Resp Denies cough, Reports dyspnea and Denies dyspnea on exertion GI Denies hematochezia and Denies change in stool character Musc Denies abnormal gait, Denies muscle cramps, Denies muscle weakness, Denies numbness, Denies radiating pain into limb and Denies tingling Neuro Denies abnormal gait, Denies dizziness, Denies syncope, Denies numbness, Denies tingling and Denies weakness Endo Reports palpitations Physical Exam Vital Signs: Last Vital Signs Pulse 63 07/17/24 14:07 BP 108/60 07/17/24 14:07 BMI result Body Mass Index 28.8 Const General: cooperative, comfortable, no acute distress, alert, awake and Physically active Nutritional Appearance: average body habitus Orientation/consciousness: patient oriented x3 Limitations: no limitations HEENT Head: Yes normocephalic and Yes atraumatic Neck Neck: Yes trachea midline, Yes supple and Yes no JVD Carotids: no bruits Resp Effort & Inspection: normal respiratory effort Auscultation: clear to auscultation bilaterally and diminished lung sounds Cardio Jugular venous distension: no JVD Palpation: normal PMI Rate: regular rate Rhythm: regular rhythm Heart sounds: S1 normal heart sound present, S2 normal heart sound present, no click, no gallops, no murmurs and no rubs GI Auscultation: normal bowel sounds Skin General skin exam: no rashes or lesions noted Neuro General: patient oriented x3 and no focal motor deficits Extrem General: Yes no clubbing, cyanosis or edema Office Procedures EKG Details: EKG shows normal sinus rhythm with rightward axis with septal QS pattern with diffuse ST T wave changes in the inferior inferolateral leads which could represent repolarization changes or ischemia. [id number], Complete Assessment & Plan Assessment & Plan (1) SOB (shortness of breath) on exertion: Code(s): R06.02 - Shortness of breath Category: Medical Plan: Patient with symptoms of exertional shortness of breath with abnormal EKG at rest with prior CAD and residual disease in the non intervened vessels. Progressive coronary artery disease likely. Would suggest exercise myocardial perfusion imaging to further assess for the same. Also suggest echocardiogram to evaluate for structural LV abnormality including systolic and diastolic dysfunction. Could be related to hypertensive heart disease. Further treatment based on the findings of above-mentioned test. This was discussed with the patient with help of educational sign language interpreter. Patient understands agrees. (2) CAD (coronary artery disease): Code(s): I25.10 - Atherosclerotic heart disease of [place] coronary artery without angina pectoris Category: Medical Qualifiers: Associated angina: without angina Coronary Disease-Associated Artery/Lesion type: [place] artery [place] vs. transplanted heart: [place] heart Qualified Code(s): I25.10 - Atherosclerotic heart disease of [place] coronary artery without angina pectoris Plan: CAD status post drug-eluting stent for inferior STEMI about 2 years ago. Symptoms as above. Workup as above. Continue low-dose aspirin therapy for life. He is currently not on optimal lipid management. I have taken the liberty to change his atorvastatin 10 mg to 40 mg to target goal LDL less than 55 mg/dL. Advised lipid panel in 6 weeks time. His blood pressure is well optimized. He is having intermittent symptoms of lightheadedness which could be related to low blood pressure. Advised to monitor blood pressure at home especially when he is having symptoms. Advised to maintain adequate hydration. Orthostatic precautions were discussed. Will follow up in the clinic in 6 weeks time, sooner p.r.n.. Thank you for allowing me to partake in his care Orders: Orders Lipid Panel 6 Weeks I25.10 - Atherosclerotic heart disease of [place] coronary artery without angina pectoris CA stress test Today R06.02 - Shortness of breath NM cardiolite stress test 2 Weeks R06.02 - Shortness of breath CA echo transthoracic complete Today R06.02 - Shortness of breath Medications: New atorvastatin 40 mg PO DAILY 30 tabs 5RF I25.10 - Atherosclerotic heart disease of [place] coronary artery without angina pectoris Coding Level of Care Code New Pt Level 4 (26342) Complex EM visit Add On G2211 Diagnoses SOB (shortness of breath) on exertion R06.02 Coronary artery disease involving [place] coronary artery of [place] heart without angina pectoris I25.10 Associated angina: without angina Coronary Disease-Associated Artery/Lesion type: [place] artery [place] vs. transplanted heart: [place] heart CPT Codes EKG - CPT: 68432-[id number], Complete ([id number])
--- OUTSIDE RECORDS SUMMARY | 2024-07-17 16:15 | XMS_ITS | Continuity of Care Document ---
Author Organization [place] - [facility], [facility] Address [address] [place] [id number] Care Team Providers Care Credit Consultant Name Role Phone DebbieCEDILLO SUMMER Primary Care Provider [phone] Assessment No assessment recorded. Plan of Treatment Reminders Order Date Submit Date Provider Last Modified By Organization Details Last Modified Time Details Appointments Establi shed 30 2024 02:00P M ENEIDA Desouza MD Not available Not available Not available Lab None recorde d. Referral speech therapy referra l - Appt 05/26 @ 8:30am 2023 024 [facility], [address] [place] [address], [id number], 05/01/2024 16:23:00 Procedures None recorde d. Surgeries None recorde d. Imaging None recorde d. Medication Orders nystati n 100,000 unit/mL oral suspens ion 2023 024 [facility], [address] [place] [address], [id number], 04/21/2024 14:42:09 Patient TargetsNo targets recorded. Patient InstructionsNo instructions recorded. Reason for Referral Appt 05/26 @ 8:30am Referring Physician: Eneida Mccall, Otolaryngology, Encounter Date: 04/21/2024 Problems Name Problem SNOMED Code Status Onset Date Resolution Date Notes Provider Name and Address Organization Details Recorded Time Sensorine ural hearing loss of bilateral ears 938089798 Active 2019 Sensorine ural hearing loss, bilateral ; Note: Date Diagnosed : 02/26/2020 3:32 PM (H90.3) Note: Date Diagnosed : 02/26/2020 3:32 PM (H90.3) Not Available [facility] 4 00:53:14 Stomatiti s 79149868 Active 2020 Oral thrush; Note: Date Diagnosed : 04/14/2021 11:22 AM (B37.0) Not Available [facility] 4 02:18:55 Candidias is of mouth 78799874 Active 2020 Oral thrush; Note: Date Diagnosed : 04/14/2021 11:22 AM (B37.0) Not Available [facility] 4 02:18:55 Gastroeso phageal reflux disease without esophagit is 130157330 Active 2015 Gastro-es ophageal reflux disease without esophagit is; Note: Date Diagnosed : 07/22/2015 2:46 PM (K21.9) Not Available [facility] 4 02:19:18 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, unilatera l; Note: Date Diagnosed : 12/12/2019 3:31 PM (J38.01) Not Available [facility] 4 02:18:19 Dysphagia 10837783 Active 2022 Dysphagia , unspecifi ed; Note: Date Diagnosed : 10/27/2021 12:05 PM (R13.10) ; Start Date : 2 Other dysphagia ; Note: Date Diagnosed : 04/07/2023 1:44 PM (R13.19) Not Available [facility] 4 02:19:19 Benign paroxysma l positiona l vertigo 120086284 Active 2019 Benign paroxysma l vertigo, left ear; Note: Date Diagnosed : 02/26/2020 3:32 PM (H81.12) Not Available [facility] 4 02:18:20 Cough 89718813 Active 2015 Cough, unspecifi ed; Note: Changed from R05 to R05.9 ( 2 2:10 PM) , Date Diagnosed : 09/04/2015 3:10 PM (R05) Not Available [facility] 4 02:19:08 Oropharyn geal dysphagia 90667644 Active 2023 Dysphagia , oropharyn geal phase; Note: Date Diagnosed : 09/16/2023 1:19 PM (R13.12) Not Available [facility] 4 02:19:08 Hemoptysi s 02501893 Active 2023 ENEIDA MCCALL MD [address] [facility],[place] [address], [place], [address] , [facility] - [facility] 4 14:33:59 Chronic sore throat 842419071 Active 2023 ENEIDA MCCALL MD [address] [place] [address],[place] [address], [place], [phone] , [facility] - [facility] 4 14:34:04 Chronic hoarsenes s 85632297994 05 Active 2023 ENEIDA MCCALL MD [address] [place] [address],[place] [address], [place], [address] , [facility] - [facility] 14:42:59 Problem Notes None recorded. Procedures Surgical History Date Name Laterality Status Provider Name and Address Organization Details Recorded Time 04/21/20 FFL_RE completed ENEIDA MCCALL MD [address] [place] [address],[place] [address], [place], [phone], [facility] - [facility] 04/21/2024 14:41:39 transurethral prostatectomy completed Bibi Neal [place] - [facility] 05/10/2024 14:05:40 subtotal thyroidectomy completed Bibi Neal [place] - [facility] 05/10/2024 14:05:53 Imaging Results None recorded. Procedure Notes None recorded. Medical Equipment None Reported. Allergies No known drug allergies Medications Name Sig Start Date Stop Date Status Note LastModified by Organization Details LastModified Time losartan 50 mg tablet 05/06 completed Medicati on ID: [id number] B rand Name: losartan Send Method: E-Prescr [...] gram tablet 05/06 completed Medicati on ID: [id number] D uration Value: 7 Brand Name: valacycl [...] mucosal jelly 05/10 completed Medicati on ID: [id number] D uration Value: 14 Brand Name: lidocain [...] mg capsule 05/06 completed Medicati on ID: [id number] D uration Value: 90 Brand Name: tamsulos in Send Method: E-Prescr ibed Sub s Allowed: subs OK Speci al Instruct ion: TAKE ONE CAPSULE DAILY Me dication GenericN jay: tamsulos in Not Available Not Available Not Available pantopraz ole 40 mg tablet,de layed release 07/12 completed Medicati on ID: [id number] D uration Value: 30 Brand Name: pantopra [...] by mouth 07/12 completed Medicati on ID: [id number] D uration Value: 30 Prescri bed By [...] oral powder 05/10 completed Medicati on ID: [id number] D uration Value: 30 Brand Name: polyethy [...] layed release 12/11 completed Medicati on ID: [id number] Jennifer bar By Name: [address], [...] both nostrils 10/17 completed Medicati on ID: [id number] Jennifer bar By Name: [address], nd Name: Flonase Allergy Relief S end Method: E-Prescr ibed Sub s Allowed: subs OK Medic ationGen ericName : Flonase Allergy Relief Not Available Not Available Not Available Vitals Date Recorded Body height Body mass index (BMI) Body weight Provider Name and Address Organization Details Last Updated DateTime 04/21/2024 167.64 cm 27 kg/m2 22050.93 g Aakash Weaver [place] - [facility] 04/21/2024 14:00:43 Social History None recorded. Functional Status None recorded. Mental Status None recorded. Family History Nothing Reported. Medical History Condition Response Hypertension Y Sleep Disorder Y GERD/Reflux Y Past Encounters Encounter ID Performer Location Encounter Start Date Encounter Closed Date Diagnosis/Indication Diagnosis SNOMED-CT Code Diagnosis ICD10 Code Diagnosis Note [id number] ENEIDA MCCALL MD [facility] [address] [phone] 04/21/2024 13:44:06 04/21/2024 15:41:33 Hemoptysis 32067042 R04.2 resolved. laryngosco py negative today for bleeding Chronic sore throat 2754 48888 J31.2 likely due to thrush. Gastroesop hageal reflux disease without esophagitis 890139557 K21.9 continue esomeprazo le Candidiasis of mouth 797 48567 B37.0 FFL notable for montez in base of tongue. LIkely secondary to steroid inhalers. Will treat with nystatin. I asked him to call if not improved. No tumors on laryngosoc py. Chronic hoarseness 00738 48088 105 R49.0 will make voice therapy referral to [facility] Concerns Section Related Observation LastModified by Organization Detai ls LastModified Time None Recorded Concern Status LastModified by Organization Details LastModified Time None Recorded Payers Encounter Date Sequence Insurance Name Policy Number Policy Ayala Covered Member ID Ayala Member ID Guarantor Name 04/21/2024 1 [facility] Laina Lewis [id number] Laina Lewis Notes Date Note Type Note [...] FOL in September 2020. ENEIDA MCCALL MD [address] [place] [address], [place], [phone], [facility] - [facility] 04/21/2024 14:43:45
--- OUTSIDE RECORDS SUMMARY | 2024-07-17 16:15 | XMS_ITS | Data Portability ---
Author Organization [place] - [facility], Allergy Address [address] [address] Care Team Providers Care Powerhouse Laborer Name Role Phone SUMMER LOWE Primary Care Provider Assessment Encounter Date Assessment [...] - Appt 05/26 @ 8:30am 2023 024 [facility], [address], [place], [address], 05/01/2024 16:23:00 Procedures None recorde d. Surgeries None recorde d. Imaging None recorde d. Medication Orders nystati n 100,000 unit/mL oral suspens ion 2023 [facility] [address] [place] [address], [address], 04/21/2024 14:42:09 nystati n 100,000 unit/mL oral suspens ion 2023 [facility] [address], [address] [place] [address], [address], 05/10/2024 16:22:57 Patient TargetsNo targets recorded. Patient InstructionsNo instructions recorded. Reason for Referral Appt 05/26 @ 8:30am Referring Physician: Eneida Mccall Otolaryngology, Encounter Date: 04/21/2024 Problems Name Problem SNOMED Code Status Onset Date Resolution Date Notes Provider Name and Address Organization Details Recorded Time Sensorine ural hearing loss of bilateral ears 631559459 Active 2019 Sensorine ural hearing loss, bilateral ; Note: Date Diagnosed : 02/26/2020 3:32 PM (H90.3) Note: Date Diagnosed : 02/26/2020 3:32 PM (H90.3) Not Available [facility] 00:53:14 Stomatiti s 14627259 Active 2020 Oral thrush; Note: Date Diagnosed : 04/14/2021 11:22 AM (B37.0) Not Available [facility] 02:18:55 Candidias is of mouth 77374703 Active 2020 Oral thrush; Note: Date Diagnosed : 04/14/2021 11:22 AM (B37.0) Not Available [facility] 4 02:18:55 Gastroeso phageal reflux disease without esophagit is 651476596 Active 2015 Gastro-es ophageal reflux disease without esophagit is; Note: Date Diagnosed : 07/22/2015 2:46 PM (K21.9) Not Available [facility] 4 02:19:18 Paralysis of larynx 25320264 Active 2019 Paralysis of vocal cords and larynx, unilatera l; Note: Date Diagnosed : 12/12/2019 3:31 PM (J38.01) Not Available [facility] 4 02:18:19 Dysphagia 69951764 Active 2022 Dysphagia , unspecifi ed; Note: Date Diagnosed : 10/27/2021 12:05 PM (R13.10) ; Start Date : 2 Other dysphagia ; Note: Date Diagnosed : 04/07/2023 1:44 PM (R13.19) Not Available [facility] 4 02:19:19 Benign paroxysma l positiona l vertigo 395485823 Active 2019 Benign paroxysma l vertigo, left ear; Note: Date Diagnosed : 02/26/2020 3:32 PM (H81.12) Not Available [facility] 4 02:18:20 Cough 96807975 Active 2015 Cough, unspecifi ed; Note: Changed from R05 to R05.9 ( 2 2:10 PM) , Date Diagnosed : 09/04/2015 3:10 PM (R05) Not Available [facility] 4 02:19:08 Oropharyn geal dysphagia 79004421 Active 2023 Dysphagia , oropharyn geal phase; Note: Date Diagnosed : 09/16/2023 1:19 PM (R13.12) Not Available [facility] 4 02:19:08 Hemoptysi s 83366557 Active 2023 ENEIDA MCCALL MD [address] [facility],[place] [address], [place], [address] , [place] - [facility] 4 14:33:59 Chronic sore throat 705738471 Active 2023 ENEIDA MCCALL MD [address] [facility] [address], [place], [address] , [place] - [facility] 4 14:34:04 Chronic hoarsenes s 82978157032 05 Active 2023 ENEIDA MCCALL MD [address] [facility],[place] [address], [place], [address] , [place] [facility] 14:42:59 Problem Notes None recorded. Procedures Surgical History Date Name Laterality Status Provider Name and Address Organization Details Recorded Time 04/21/20 24 FFL_RE completed ENEIDA MCCALL MD [address] [facility],[place] [address], [place], [address], [place] - [facility] 04/21/2024 14:41:39 transurethral prostatectomy completed Bibi Neal [place] [facility] 05/10/2024 14:05:40 subtotal thyroidectomy completed Bibi Neal [place] [facility] 05/10/2024 14:05:53 Imaging Results None recorded. Procedure Notes None recorded. Medical Equipment None Reported. Allergies No known drug allergies Medications Name Sig Start Date Stop Date Status Note LastModified by Organization Details LastModified Time losartan 50 mg tablet 05/06 completed Medicati on ID: [id number] B rand Name: losartan Send Method: E-Prescr [...] gram tablet 05/06 completed Medicati on ID: [id number] D uration Value: 7 Brand Name: valacycl [...] mucosal jelly 05/10 completed Medicati on ID: [id number] D uration Value: 14 Brand Name: lidocain [...] mg capsule 05/06 completed Medicati on ID: [id number] D uration Value: 90 Brand Name: tamsulos in Send Method: E-Prescr ibed Sub s Allowed: subs OK Speci al Instruct ion: TAKE ONE CAPSULE DAILY Me dication GenericN jay: tamsulos in Not Available Not Available Not Available pantopraz ole 40 mg tablet,de layed release 07/12 completed Medicati on ID: [id number] D uration Value: 30 Brand Name: pantopra [...] by mouth 07/12 completed Medicati on ID: [id number] D uration Value: 30 Prescri bed By [...] oral powder 05/10 completed Medicati on ID: [id number] D uration Value: 30 Brand Name: polyethy [...] layed release 12/11 completed Medicati on ID: [id number] Jennifer bar By Name: [address], [...] both nostrils 10/17 completed Medicati on ID: [id number] Jennifer bar By Name: [address], nd Name: Flonase Allergy Relief S end Method: E-Prescr ibed Sub s Allowed: subs OK Medic ationGen ericName : Flonase Allergy Relief Not Available Not Available Not Available Vitals Date Recorded Body height Body mass index (BMI) Body weight Provider Name and Address Organization Details Last Updated DateTime 04/21/2024 167.64 cm 27 kg/m2 49562.93 g Aakash Weaver [place] [facility] 04/21/2024 14:00:43 Date Recorded Body height Body weight Provider Name and Address Organization Details Last Updated DateTime 05/10/2024 167.64 cm 05562.93 g Bibi Neal [place] [facility] 05/10/2024 14:01:54 Social History None recorded. Functional Status None recorded. Mental Status None recorded. Family History Nothing Reported. Medical History Condition Response Hypertension Y Sleep Disorder Y GERD/Reflux Y Past Encounters Encounter ID Performer Location Encounter Start Date Encounter Closed Date Diagnosis/Indication Diagnosis SNOMED-CT Code Diagnosis ICD10 Code Diagnosis Note [id number] ENEIDA MCCALL MD [facility] [address] [address] 04/21/2024 13:44:06 04/21/2024 15:41:33 Hemoptysis 07030765 R04.2 resolved. laryngosco py negative today for bleeding Chronic sore throat 2754 00411 J31.2 likely due to thrush. Gastroesop hageal reflux disease without esophagitis 029687799 K21.9 continue esomeprazo le Candidiasis of mouth 797 70726 B37.0 FFL notable for montez in base of tongue. LIkely secondary to steroid inhalers. Will treat with nystatin. I asked him to call if not improved. No tumors on laryngosoc py. Chronic hoarseness 10675 14701 105 R49.0 will make voice therapy referral to [place] [id number] VELASQUEZ GONZALEZ MD [facility] [address] [address] 05/10/2024 13:45:35 05/10/2024 15:10:38 Candidiasis of mouth 62657038 B37.0 Chronic hoarseness 77431 33092 105 R49.0 Chronic sore throat 2754 03194 J31.2 Gastroesop hageal reflux disease without esophagitis 856176505 K21.9 Health Concerns Section Related Observation LastModified by Organization Detai ls LastModified Time None Recorded Concern Status LastModified by Organization Details LastModified Time None Recorded Advance Directives Directive None Recorded Payers Encounter Date Sequence Insurance Name Policy Number Policy Ayala Covered Member ID Ayala Member ID Guarantor Name 04/21/2024 1 [facility] Laina Lewis [id number] Laina Lewis 05/10/2024 1 [facility] Laina Lewis [id number] Laina Lewis Notes Date Note Type Note [...] FOL in September 2020. ENEIDA MCCALL MD [address] [place] [address],[address], [address], [place] - [facility] 04/21/2024 14:43:45 05/10/2024 text/html 68-year-old male with [...] [place]. Normal MBS. VELASQUEZ QUINTERO MD [address] [facility],[place] [address], [place], [address], [facility] - [facility] 05/11/2024 12:34:14
--- OUTSIDE RECORDS SUMMARY | 2024-07-17 16:15 | XMS_ITS | Continuity of Care Document ---
Author Organization [place] - [facility], [facility] Address [address] [place] [address] Care Team Providers Care High Tension Tester Name Role Phone DaytonSUMMER CLIFFORD Primary Care [...] 100,000 unit/mL oral suspensio n 2023 024 [facility], [address] [place] [address], [place], [address], 05/10/2024 16:22:57 Patient TargetsNo targets recorded. Patient InstructionsNo instructions recorded. Reason for Referral None Reported. Problems Name Problem SNOMED Code Status Onset Date Resolution Date Notes Provider Name and Address Organization Details Recorded Time Sensorine ural hearing loss of bilateral ears 347406914 Active 2019 Sensorine ural hearing loss, bilateral ; Note: Date Diagnosed : 02/26/2020 3:32 PM (H90.3) Note: Date Diagnosed : 02/26/2020 3:32 PM (H90.3) Not Available [facility] 4 00:53:14 Stomatiti s 51571092 Active 2020 Oral thrush; Note: Date Diagnosed : 04/14/2021 11:22 AM (B37.0) Not Available [facility] 4 02:18:55 Candidias is of mouth 29793407 Active 2020 Oral thrush; Note: Date Diagnosed : 04/14/2021 11:22 AM (B37.0) Not Available [facility] 4 02:18:55 Gastroeso phageal reflux disease without esophagit is 867107511 Active 2015 Gastro-es ophageal reflux disease without esophagit is; Note: Date Diagnosed : 07/22/2015 2:46 PM (K21.9) Not Available [facility] 4 02:19:18 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, unilatera l; Note: Date Diagnosed : 12/12/2019 3:31 PM (J38.01) Not Available [facility] 4 02:18:19 Dysphagia 39703460 Active 2022 Dysphagia , unspecifi ed; Note: Date Diagnosed : 10/27/2021 12:05 PM (R13.10) ; Start Date : 2 Other dysphagia ; Note: Date Diagnosed : 04/07/2023 1:44 PM (R13.19) Not Available [facility] 4 02:19:19 Benign paroxysma l positiona l vertigo 368538206 Active 2019 Benign paroxysma l vertigo, left ear; Note: Date Diagnosed : 02/26/2020 3:32 PM (H81.12) Not Available [facility] 4 02:18:20 Cough 18560154 Active 2015 Cough, unspecifi ed; Note: Changed from R05 to R05.9 ( 2 2:10 PM) , Date Diagnosed : 09/04/2015 3:10 PM (R05) Not Available [facility] 4 02:19:08 Oropharyn geal dysphagia 50778226 Active 2023 Dysphagia , oropharyn geal phase; Note: Date Diagnosed : 09/16/2023 1:19 PM (R13.12) Not Available [facility] 4 02:19:08 Hemoptysi s 47994220 Active 2023 ENEIDA MCCALL MD [address] [place] [address], [facility] [place], [address] , [place] - [facility] 4 14:33:59 Chronic sore throat 679310544 Active 2023 ENEIDA MCCALL MD [address] [place] [address], [place], [address] , [facility] - [facility] 4 14:34:04 Chronic hoarsenes s 08522604773 05 Active 2023 ENEIDA MCCALL MD [address] [place] [address], [place], [address] , [place] [facility] 4 14:42:59 Problem Notes None recorded. Procedures Surgical History Date Name Laterality Status Provider Name and Address Organization Details Recorded Time 04/21/20 FFL_RE completed ENEIDA MCCALL MD [address] [place] [address],[place] [address], [place], [address], [place] - [facility] 04/21/2024 14:41:39 transurethral prostatectomy completed Bibi Neal [place] [facility] 05/10/2024 14:05:40 subtotal thyroidectomy completed Bibi Neal [place] - [facility] 05/10/2024 14:05:53 Imaging Results None recorded. Procedure Notes None recorded. Medical Equipment None Reported. Allergies No known drug allergies Medications Name Sig Start Date Stop Date Status Note LastModified by Organization Details LastModified Time losartan 50 mg tablet 05/06 completed Medicati on ID: [id number] B rand Name: losartan Send Method: E-Prescr [...] gram tablet 05/06 completed Medicati on ID: [id number] D uration Value: 7 Brand Name: valacycl [...] mucosal jelly 05/10 completed Medicati on ID: [id number] D uration Value: 14 Brand Name: lidocain [...] mg capsule 05/06 completed Medicati on ID: [id number] D uration Value: 90 Brand Name: tamsulos in Send Method: E-Prescr ibed Sub s Allowed: subs [place] Speci al Instruct ion: TAKE ONE CAPSULE DAILY Me dication GenericN jay: tamsulos in Not Available Not Available Not Available pantopraz ole 40 mg tablet,de layed release 07/12 completed Medicati on ID: [id number] D uration Value: 30 Brand Name: pantopra [...] by mouth 07/12 completed Medicati on ID: [id number] D uration Value: 30 Prescri bed By [...] oral powder 05/10 completed Medicati on ID: [id number] D uration Value: 30 Brand Name: polyethy [...] layed release 12/11 completed Medicati on ID: [id number] P rescribe d By Name: [address]ee [...] both nostrils 10/17 completed Medicati on ID: [id number] P rescribe d By Name: [address], nd Name: Flonase Allergy Relief S end Method: E-Prescr ibed Sub s Allowed: subs OK Medic ationGen ericName : Flonase Allergy Relief Not Available Not Available Not Available Vitals Date Recorded Body height Body weight Provider Name and Address Organization Details Last Updated DateTime 05/10/2024 167.64 cm 43365.93 g Bibi Neal [place] [facility] 05/10/2024 14:01:54 Social History None recorded. Functional Status None recorded. Mental Status None recorded. Family History Nothing Reported. Medical History Condition Response Hypertension Y Sleep Disorder Y GERD/Reflux Y Past Encounters Encounter ID Performer Location Encounter Start Date Encounter Closed Date Diagnosis/Indication Diagnosis SNOMED-CT Code Diagnosis ICD10 Code Diagnosis Note [id number] ENEIDA MCCALL MD [facility] [address] [address] 04/21/2024 13:44:06 04/21/2024 15:41:33 Hemoptysis 88577524 R04.2 resolved. laryngosco py negative today for bleeding Chronic sore throat 2754 74452 J31.2 likely due to thrush. Gastroesop hageal reflux disease without esophagitis 194899314 K21.9 continue esomeprazo le Candidiasis of mouth 797 50603 B37.0 FFL notable for montez in base of tongue. LIkely secondary to steroid inhalers. Will treat with nystatin. I asked him to call if not improved. No tumors on laryngosoc py. Chronic hoarseness 91337 64400 105 R49.0 will make voice therapy referral to [facility] [id number] VELASQUEZ GONZALEZ MD [facility] [address] [address] 05/10/2024 13:45:35 05/10/2024 15:10:38 Candidiasis of mouth 68298387 B37.0 Chronic hoarseness 46621 70612 105 R49.0 Chronic sore throat 2754 67624 J31.2 Gastroesop hageal reflux disease without esophagitis 258726604 K21.9 Health Concerns Section Related Observation LastModified by Organization Detai ls LastModified Time None Recorded Concern Status LastModified by Organization Details LastModified Time None Recorded Payers Encounter Date Sequence Insurance Name Policy Number Policy Ayala Covered Member ID Ayala Member ID Guarantor Name 05/10/2024 1 [facility] Laina Lewis [id number] Laina Lewis Notes Date Note Type Note [...] on [place]. Normal MBS. VELASQUEZ QUINTERO MD [address] [place] [address], [place], [address], [facility] - [facility] 05/11/2024 12:34:14
== END 2024-07-17 14:39 | disposition home or self-care (01) ==
PROVIDERS: PCP Internal Medicine; Visit Provider Internal Medicine Cardiovascular Disease
DX: R06.02 Shortness of breath (principal); I25.10 Atherosclerotic heart disease of native coronary artery without angina pectoris
CPT/HCPCS: 93010; 99204; G2211

== ENCOUNTER → 2024-07-17 13:52 | Outpatient (BNVA) | payer OTHER, SELFPAY | PROVIDERS: PCP Internal Medicine; Visit Provider Internal Medicine Cardiovascular Disease | DX: I25.10 Atherosclerotic heart disease of native coronary artery without angina pectoris (principal); R06.02 Shortness of breath; R94.31 Abnormal electrocardiogram [ECG] [EKG] | CPT/HCPCS: 93005; 99202 ==

== ENCOUNTER 2024-07-19 08:22 | Outpatient (REF) | payer OTHER, SELFPAY ==
--- NOTE | ~2024-07-19 | FL_ITS ---
EXAMINATION: XR FLUOROSCOPY UPPER GI WITH AIR CLINICAL INFORMATION: Dysphagia. Reflux. COMPARISON: None TECHNIQUE: Fluoroscopic air contrast upper GI examination was performed utilizing standard techniques with thin and thick barium and effervescent granules. Numerous spot images were obtained. FINDINGS: Lateral cine images of the oropharynx and hypopharynx demonstrate normal swallow mechanism with normal epiglottic inversion and soft palate elevation. Trace laryngeal penetration is seen with thick barium. No tracheal penetration, glottic or subglottic aspiration identified. No nasopharyngeal reflux present. There is ballooning of the hypopharynx with mild cricopharyngeal achalasia present. Surgical clips are present in the anterior neck. Dual and single contrast images of the esophagus demonstrate a normal caliber, and contour. There is a granular appearance of the esophageal mucosa, suggestive of esophagitis. No evidence of stricture, mass, or ulcerations are identified. Esophageal peristalsis is moderately disorganized. A small type I hiatal hernia is present. No significant gastroesophageal reflux was seen during the course of the examination and on reflux views. Dual contrast and single contrast images of the stomach demonstrated normal contour and mucosal pattern without evidence of mass, ulceration, or other abnormality. Contrast freely passed into the gastric antrum and duodenal bulb without delay. Single and air-contrast images of the duodenal bulb demonstrate no abnormality. The duodenal sweep has a normal appearance, course, and mucosal fold appearance. The imaged proximal jejunum has a normal fold pattern and caliber. FLUOROSCOPY TIME: 4 minutes 17 seconds Number of Spot Images: 7 Number of Cine: 15 DOSE AREA PRODUCT: 2164 uGy-m2 (microgray-meter squared) FL/FL barium swallow IMPRESSION: 1. Trace laryngeal penetration with thick barium. 2. Ballooning of the hypopharynx with associated mild cricopharyngeal achalasia. 3. Surgical clips are present in the anterior neck, consistent with prior history of thyroidectomy. 4. Granular appearance of the esophageal mucosa, suggestive of esophagitis. 5. Moderately disorganized esophageal peristalsis. 6. Small type I hiatal hernia. This procedure was performed by Bolivar Morrow PA-C, and supervised by Dr. Quinones Electronically signed by: Stuart Quinones MD 07/20/2024 01:01 PM [facility]
--- OUTSIDE RECORDS SUMMARY | 2024-07-19 08:29 | XMS_ITS | Data Portability ---
Author Organization MD - [facility], Allergy Address [address] [address] Care Team Providers Care Ash Pit Worker Name Role Phone SUMMER LOWE Primary Care [...] - Appt 05/26 @ 8:30am 2023 024 [facility], [address], [place], [address], 05/01/2024 16:23:00 Procedures None recorde d. Surgeries None recorde d. Imaging None recorde d. Medication Orders nystati n 100,000 unit/mL oral suspens ion 2023 [facility] [address] [place] [address], [address], 04/21/2024 14:42:09 nystati n 100,000 unit/mL oral suspens ion 2023 [facility] [address], [address] [place] [address], [address], 05/10/2024 16:22:57 Patient TargetsNo targets recorded. Patient InstructionsNo instructions recorded. Reason for Referral Appt 05/26 @ 8:30am Referring Physician: Eneida Mccall Otolaryngology, Encounter Date: 04/21/2024 Problems Name Problem SNOMED Code Status Onset Date Resolution Date Notes Provider Name and Address Organization Details Recorded Time Sensorine ural hearing loss of bilateral ears 154241748 Active 2019 Sensorine ural hearing loss, bilateral ; Note: Date Diagnosed : 02/26/2020 3:32 PM (H90.3) Note: Date Diagnosed : 02/26/2020 3:32 PM (H90.3) Not Available [facility] 00:53:14 Stomatiti s 29888689 Active 2020 Oral thrush; Note: Date Diagnosed : 04/14/2021 11:22 AM (B37.0) Not Available [facility] 02:18:55 Candidias is of mouth 99739099 Active 2020 Oral thrush; Note: Date Diagnosed : 04/14/2021 11:22 AM (B37.0) Not Available [facility] 4 02:18:55 Gastroeso phageal reflux disease without esophagit is 765095557 Active 2015 Gastro-es ophageal reflux disease without esophagit is; Note: Date Diagnosed : 07/22/2015 2:46 PM (K21.9) Not Available [facility] 4 02:19:18 Paralysis of larynx 35264497 Active 2019 Paralysis of vocal cords and larynx, unilatera l; Note: Date Diagnosed : 12/12/2019 3:31 PM (J38.01) Not Available [facility] 4 02:18:19 Dysphagia 56747966 Active 2022 Dysphagia , unspecifi ed; Note: Date Diagnosed : 10/27/2021 12:05 PM (R13.10) ; Start Date : 2 Other dysphagia ; Note: Date Diagnosed : 04/07/2023 1:44 PM (R13.19) Not Available [facility] 4 02:19:19 Benign paroxysma l positiona l vertigo 197827994 Active 2019 Benign paroxysma l vertigo, left ear; Note: Date Diagnosed : 02/26/2020 3:32 PM (H81.12) Not Available [facility] 4 02:18:20 Cough 04480946 Active 2015 Cough, unspecifi ed; Note: Changed from R05 to R05.9 ( 2 2:10 PM) , Date Diagnosed : 09/04/2015 3:10 PM (R05) Not Available [facility] 4 02:19:08 Oropharyn geal dysphagia 33024845 Active 2023 Dysphagia , oropharyn geal phase; Note: Date Diagnosed : 09/16/2023 1:19 PM (R13.12) Not Available [facility] 4 02:19:08 Hemoptysi s 28339959 Active 2023 ENEIDA MCCALL MD [address] [facility],[place] [address], [place], [address] , [place] - [facility] 4 14:33:59 Chronic sore throat 334346408 Active 2023 ENEIDA MCCALL MD 100 [facility], [place], [address] , [place] - [facility] 4 14:34:04 Chronic hoarsenes s 92524018420 05 Active 2023 ENEIDA MCCALL MD [address] [facility],[place] [address], [place], [address] , [place] - [facility] 14:42:59 Problem Notes None recorded. Procedures Surgical History Date Name Laterality Status Provider Name and Address Organization Details Recorded Time 04/21/20 24 FFL_RE completed ENEIDA MCCALL MD [address] [facility],[place] [address], [place], [address], [place] - [facility] 04/21/2024 14:41:39 transurethral prostatectomy completed Bibi Neal [place] - [facility] 05/10/2024 14:05:40 subtotal thyroidectomy completed Bibi Neal [place] - [facility] 05/10/2024 14:05:53 Imaging Results None recorded. Procedure Notes None recorded. Medical Equipment None Reported. Allergies No known drug allergies Medications Name Sig Start Date Stop Date Status Note LastModified by Organization Details LastModified Time losartan 50 mg tablet 05/06 completed Medicati on ID: [id number] B rand Name: losartan Send Method: E-Prescr [...] gram tablet 05/06 completed Medicati on ID: [id number] D uration Value: 7 Brand Name: valacycl [...] mucosal jelly 05/10 completed Medicati on ID: [id number] D uration Value: 14 Brand Name: lidocain [...] mg capsule 05/06 completed Medicati on ID: [id number] D uration Value: 90 Brand Name: tamsulos in Send Method: E-Prescr ibed Sub s Allowed: subs OK Speci al Instruct ion: TAKE ONE CAPSULE DAILY Me dication GenericN jay: tamsulos in Not Available Not Available Not Available pantopraz ole 40 mg tablet,de layed release 07/12 completed Medicati on ID: [id number] D uration Value: 30 Brand Name: pantopra [...] by mouth 07/12 completed Medicati on ID: [id number] D uration Value: 30 Prescri bed By [...] oral powder 05/10 completed Medicati on ID: [id number] D uration Value: 30 Brand Name: polyethy [...] layed release 12/11 completed Medicati on ID: [id number] Jennifer bar By Name: [address], [...] both nostrils 10/17 completed Medicati on ID: [id number] Jennifer bar By Name: [address], nd Name: Flonase Allergy Relief S end Method: E-Prescr ibed Sub s Allowed: subs OK Medic ationGen ericName : Flonase Allergy Relief Not Available Not Available Not Available Vitals Date Recorded Body height Body mass index (BMI) Body weight Provider Name and Address Organization Details Last Updated DateTime 04/21/2024 167.64 cm 27 kg/m2 42048.93 g Aakash Weaver MD - [facility] 04/21/2024 14:00:43 Date Recorded Body height Body weight Provider Name and Address Organization Details Last Updated DateTime 05/10/2024 167.64 cm 26513.93 g Bibi Neal [place] - [facility] 05/10/2024 14:01:54 Social History None recorded. Functional Status None recorded. Mental Status None recorded. Family History Nothing Reported. Medical History Condition Response Hypertension Y Sleep Disorder Y GERD/Reflux Y Past Encounters Encounter ID Performer Location Encounter Start Date Encounter Closed Date Diagnosis/Indication Diagnosis SNOMED-CT Code Diagnosis ICD10 Code Diagnosis Note [id number] ENEIDA MCCALL MD [facility] [address] [address] 04/21/2024 13:44:06 04/21/2024 15:41:33 Hemoptysis 69546167 R04.2 resolved. laryngosco py negative today for bleeding Chronic sore throat 2754 47047 J31.2 likely due to thrush. Gastroesop hageal reflux disease without esophagitis 831369869 K21.9 continue esomeprazo le Candidiasis of mouth 797 88304 B37.0 FFL notable for montez in base of tongue. LIkely secondary to steroid inhalers. Will treat with nystatin. I asked him to call if not improved. No tumors on laryngosoc py. Chronic hoarseness 14779 67487 105 R49.0 will make voice therapy referral to [place] [id number] VELASQUEZ GONZALEZ MD [facility] [address] [address] 05/10/2024 13:45:35 05/10/2024 15:10:38 Candidiasis of mouth 66088609 B37.0 Chronic hoarseness 03197 09864 105 R49.0 Chronic sore throat 2754 87134 J31.2 Gastroesop hageal reflux disease without esophagitis 304701743 K21.9 Health Concerns Section Related Observation LastModified by Organization Detai ls LastModified Time None Recorded Concern Status LastModified by Organization Details LastModified Time None Recorded Advance Directives Directive None Recorded Payers Encounter Date Sequence Insurance Name Policy Number Policy Ayala Covered Member ID Ayala Member ID Guarantor Name 04/21/2024 1 [facility] Laina Lewis [id number] Laina Lewis 05/10/2024 1 [facility] Laina Lewis [id number] Laina Lewis Notes Date Note Type Note [...] FOL in September 2020. ENEIDA MCCALL MD [address] [place] [address],[address], [address], [place] - [facility] 04/21/2024 14:43:45 05/10/2024 text/html 68-year-old male [...] [place]. Normal MBS. VELASQUEZ QUINTERO MD 100 [facility],[place] [address], [place], [address], [facility] - [facility] 05/11/2024 12:34:14
--- OUTSIDE RECORDS SUMMARY | 2024-07-19 08:30 | XMS_ITS | Continuity of Care Document ---
Author Organization [place] - [facility], [facility] Address [address] [place] [address] Care Team Providers Care Water Registrar Name Role Phone DaytonSUMMER CLIFFORD Primary Care [...] 100,000 unit/mL oral suspensio n 2023 024 [facility], [address] [place] [address], [place], [address], 05/10/2024 16:22:57 Patient TargetsNo targets recorded. Patient InstructionsNo instructions recorded. Reason for Referral None Reported. Problems Name Problem SNOMED Code Status Onset Date Resolution Date Notes Provider Name and Address Organization Details Recorded Time Sensorine ural hearing loss of bilateral ears 823268039 Active 2019 Sensorine ural hearing loss, bilateral ; Note: Date Diagnosed : 02/26/2020 3:32 PM (H90.3) Note: Date Diagnosed : 02/26/2020 3:32 PM (H90.3) Not Available [facility] 4 00:53:14 Stomatiti s 46548433 Active 2020 Oral thrush; Note: Date Diagnosed : 04/14/2021 11:22 AM (B37.0) Not Available [facility] 4 02:18:55 Candidias is of mouth 69157386 Active 2020 Oral thrush; Note: Date Diagnosed : 04/14/2021 11:22 AM (B37.0) Not Available [facility] 4 02:18:55 Gastroeso phageal reflux disease without esophagit is 710587836 Active 2015 Gastro-es ophageal reflux disease without esophagit is; Note: Date Diagnosed : 07/22/2015 2:46 PM (K21.9) Not Available [facility] 4 02:19:18 Paralysis of larynx 01093838 Active 2019 Paralysis of vocal cords and larynx, unilatera l; Note: Date Diagnosed : 12/12/2019 3:31 PM (J38.01) Not Available [facility] 4 02:18:19 Dysphagia 94168040 Active 2022 Dysphagia , unspecifi ed; Note: Date Diagnosed : 10/27/2021 12:05 PM (R13.10) ; Start Date : 2 Other dysphagia ; Note: Date Diagnosed : 04/07/2023 1:44 PM (R13.19) Not Available [facility] 4 02:19:19 Benign paroxysma l positiona l vertigo 159876147 Active 2019 Benign paroxysma l vertigo, left ear; Note: Date Diagnosed : 02/26/2020 3:32 PM (H81.12) Not Available [facility] 4 02:18:20 Cough 72899283 Active 2015 Cough, unspecifi ed; Note: Changed from R05 to R05.9 ( 2 2:10 PM) , Date Diagnosed : 09/04/2015 3:10 PM (R05) Not Available [facility] 4 02:19:08 Oropharyn geal dysphagia 42503164 Active 2023 Dysphagia , oropharyn geal phase; Note: Date Diagnosed : 09/16/2023 1:19 PM (R13.12) Not Available [facility] 4 02:19:08 Hemoptysi s 33766670 Active 2023 ENEIDA MCCALL MD [address] [place] [address], [facility] [place], [address] , [place] - [facility] 4 14:33:59 Chronic sore throat 215652246 Active 2023 ENEIDA MCCALL MD [address] [place] [address], [place], [address] , [facility] - [facility] 4 14:34:04 Chronic hoarsenes s 66884641889 05 Active 2023 ENEIDA MCCALL MD [address] [place] [address], [place], [address] , [place] - [facility] 4 14:42:59 Problem Notes None recorded. Procedures Surgical History Date Name Laterality Status Provider Name and Address Organization Details Recorded Time 04/21/20 FFL_RE completed ENEIDA MCCALL MD [address] [place] [address],[place] [address], [place], [address], [place] - [facility] 04/21/2024 14:41:39 transurethral prostatectomy completed Bibi Neal [place] [facility] 05/10/2024 14:05:40 subtotal thyroidectomy completed Bibi Neal [place] - [facility] 05/10/2024 14:05:53 Imaging Results None recorded. Procedure Notes None recorded. Medical Equipment None Reported. Allergies No known drug allergies Medications Name Sig Start Date Stop Date Status Note LastModified by Organization Details LastModified Time losartan 50 mg tablet 05/06 completed Medicati on ID: [id number] B rand Name: losartan Send Method: E-Prescr [...] gram tablet 05/06 completed Medicati on ID: [id number] D uration Value: 7 Brand Name: valacycl [...] mucosal jelly 05/10 completed Medicati on ID: [id number] D uration Value: 14 Brand Name: lidocain [...] mg capsule 05/06 completed Medicati on ID: [id number] D uration Value: 90 Brand Name: tamsulos in Send Method: E-Prescr ibed Sub s Allowed: subs OK Speci al Instruct ion: TAKE ONE CAPSULE DAILY Me dication GenericN jay: tamsulos in Not Available Not Available Not Available pantopraz ole 40 mg tablet,de layed release 07/12 completed Medicati on ID: [id number] D uration Value: 30 Brand Name: pantopra [...] by mouth 07/12 completed Medicati on ID: [id number] D uration Value: 30 Prescri bed By [...] oral powder 05/10 completed Medicati on ID: [id number] D uration Value: 30 Brand Name: polyethy [...] layed release 12/11 completed Medicati on ID: [id number] P rescribe d By Name: [address] [...] both nostrils 10/17 completed Medicati on ID: [id number] P rescribe d By Name: Nasrin[address], nd Name: Flonase Allergy Relief S end Method: E-Prescr ibed Sub s Allowed: subs OK Medic ationGen ericName : Flonase Allergy Relief Not Available Not Available Not Available Vitals Date Recorded Body height Body weight Provider Name and Address Organization Details Last Updated DateTime 05/10/2024 167.64 cm 62933.93 g Bibi Neal [place] - [facility] 05/10/2024 14:01:54 Social History None recorded. Functional Status None recorded. Mental Status None recorded. Family History Nothing Reported. Medical History Condition Response Hypertension Y Sleep Disorder Y GERD/Reflux Y Past Encounters Encounter ID Performer Location Encounter Start Date Encounter Closed Date Diagnosis/Indication Diagnosis SNOMED-CT Code Diagnosis ICD10 Code Diagnosis Note [id number] ENEIDA MCCALL MD [facility] [address] [address] 04/21/2024 13:44:06 04/21/2024 15:41:33 Hemoptysis 17194206 R04.2 resolved. laryngosco py negative today for bleeding Chronic sore throat 2754 82523 J31.2 likely due to thrush. Gastroesop hageal reflux disease without esophagitis 016065397 K21.9 continue esomeprazo le Candidiasis of mouth 797 00952 B37.0 FFL notable for montez in base of tongue. LIkely secondary to steroid inhalers. Will treat with nystatin. I asked him to call if not improved. No tumors on laryngosoc py. Chronic hoarseness 65584 19668 105 R49.0 will make voice therapy referral to [facility] [id number] VELASQUEZ GONZALEZ MD [facility] [address] [address] 05/10/2024 13:45:35 05/10/2024 15:10:38 Candidiasis of mouth 10503622 B37.0 Chronic hoarseness 89849 84678 105 R49.0 Chronic sore throat 2754 85769 J31.2 Gastroesop hageal reflux disease without esophagitis 785855425 K21.9 Health Concerns Section Related Observation LastModified by Organization Detai ls LastModified Time None Recorded Concern Status LastModified by Organization Details LastModified Time None Recorded Payers Encounter Date Sequence Insurance Name Policy Number Policy Ayala Covered Member ID Ayala Member ID Guarantor Name 05/10/2024 1 [facility] Laina Lewis [id number] Laina Lewis Notes Date Note Type Note [...] on [place]. Normal MBS. VELASQUEZ QUINTERO MD [address] [place] [address], [place], [address], [facility] - [facility] 05/11/2024 12:34:14
--- OUTSIDE RECORDS SUMMARY | 2024-07-19 08:30 | XMS_ITS | Continuity of Care Document ---
Author Organization [place] - [facility], [facility] Address [address] [place] [address] Care Team Providers Care Bulb Filler Name Role Phone DebbieCEDILLO SUMMER Primary Care Provider [phone] Assessment No assessment recorded. Plan of Treatment Reminders Order Date Submit Date Provider Last Modified By Organization Details Last Modified Time Details Appointments Establi shed 30 2024 02:00P M ENEIDA Desouza MD Not available Not available Not available Lab None recorde d. Referral speech therapy referra l - Appt 05/26 @ 8:30am 2023 024 [facility], [address] [place] [address], [address], 05/01/2024 16:23:00 Procedures None recorde d. Surgeries None recorde d. Imaging None recorde d. Medication Orders nystati n 100,000 unit/mL oral suspens ion 2023 024 [facility], [address] [place] [address], [address], 04/21/2024 14:42:09 Patient TargetsNo targets recorded. Patient InstructionsNo instructions recorded. Reason for Referral Appt 05/26 @ 8:30am Referring Physician: Eneida Mccall, Otolaryngology, Encounter Date: 04/21/2024 Problems Name Problem SNOMED Code Status Onset Date Resolution Date Notes Provider Name and Address Organization Details Recorded Time Sensorine ural hearing loss of bilateral ears 168067584 Active 2019 Sensorine ural hearing loss, bilateral ; Note: Date Diagnosed : 02/26/2020 3:32 PM (H90.3) Note: Date Diagnosed : 02/26/2020 3:32 PM (H90.3) Not Available [facility] 4 00:53:14 Stomatiti s 41897792 Active 2020 Oral thrush; Note: Date Diagnosed : 04/14/2021 11:22 AM (B37.0) Not Available [facility] 4 02:18:55 Candidias is of mouth 19669470 Active 2020 Oral thrush; Note: Date Diagnosed : 04/14/2021 11:22 AM (B37.0) Not Available [facility] 4 02:18:55 Gastroeso phageal reflux disease without esophagit is 202912219 Active 2015 Gastro-es ophageal reflux disease without esophagit is; Note: Date Diagnosed : 07/22/2015 2:46 PM (K21.9) Not Available [facility] 4 02:19:18 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, unilatera l; Note: Date Diagnosed : 12/12/2019 3:31 PM (J38.01) Not Available [facility] 4 02:18:19 Dysphagia 16357310 Active 2022 Dysphagia , unspecifi ed; Note: Date Diagnosed : 10/27/2021 12:05 PM (R13.10) ; Start Date : 2 Other dysphagia ; Note: Date Diagnosed : 04/07/2023 1:44 PM (R13.19) Not Available [facility] 4 02:19:19 Benign paroxysma l positiona l vertigo 563989583 Active 2019 Benign paroxysma l vertigo, left ear; Note: Date Diagnosed : 02/26/2020 3:32 PM (H81.12) Not Available [facility] 4 02:18:20 Cough 49257561 Active 2015 Cough, unspecifi ed; Note: Changed from R05 to R05.9 ( 2 2:10 PM) , Date Diagnosed : 09/04/2015 3:10 PM (R05) Not Available [facility] 4 02:19:08 Oropharyn geal dysphagia 52376578 Active 2023 Dysphagia , oropharyn geal phase; Note: Date Diagnosed : 09/16/2023 1:19 PM (R13.12) Not Available [facility] 4 02:19:08 Hemoptysi s 78133733 Active 2023 ENEIDA MCCALL MD [address] [facility],[place] [address], [place], [address] , [facility] - [facility] 4 14:33:59 Chronic sore throat 169524163 Active 2023 ENEIDA MCCALL MD [address] [place] [address],[place] [address], [place], [address] , [facility] - [facility] 4 14:34:04 Chronic hoarsenes s 66765381508 05 Active 2023 ENEIDA MCCALL MD [address] [place] [address],[place] [address], [place], [address] , [facility] - [facility] 14:42:59 Problem Notes None recorded. Procedures Surgical History Date Name Laterality Status Provider Name and Address Organization Details Recorded Time 04/21/20 FFL_RE completed ENEIDA MCCALL MD [address] [place] [address],[place] [address], [place], [address], [facility] - [facility] 04/21/2024 14:41:39 transurethral prostatectomy completed Bibi Neal [place] - [facility] 05/10/2024 14:05:40 subtotal thyroidectomy completed Bibi Neal [place] - [facility] 05/10/2024 14:05:53 Imaging Results None recorded. Procedure Notes None recorded. Medical Equipment None Reported. Allergies No known drug allergies Medications Name Sig Start Date Stop Date Status Note LastModified by Organization Details LastModified Time losartan 50 mg tablet 05/06 completed Medicati on ID: [id number] B rand Name: losartan Send Method: E-Prescr [...] gram tablet 05/06 completed Medicati on ID: [id number] D uration Value: 7 Brand Name: valacycl [...] mucosal jelly 05/10 completed Medicati on ID: [id number] D uration Value: 14 Brand Name: lidocain [...] mg capsule 05/06 completed Medicati on ID: [id number] D uration Value: 90 Brand Name: tamsulos in Send Method: E-Prescr ibed Sub s Allowed: subs OK Speci al Instruct ion: TAKE ONE CAPSULE DAILY Me dication GenericN jay: tamsulos in Not Available Not Available Not Available pantopraz ole 40 mg tablet,de layed release 07/12 completed Medicati on ID: [id number] D uration Value: 30 Brand Name: pantopra [...] by mouth 07/12 completed Medicati on ID: [id number] D uration Value: 30 Prescri bed By [...] oral powder 05/10 completed Medicati on ID: [id number] D uration Value: 30 Brand Name: polyethy [...] layed release 12/11 completed Medicati on ID: [id number] Jennifer bar By Name: [address], [...] both nostrils 10/17 completed Medicati on ID: [id number] Jennifer bar By Name: [address], nd Name: Flonase Allergy Relief S end Method: E-Prescr ibed Sub s Allowed: subs OK Medic ationGen ericName : Flonase Allergy Relief Not Available Not Available Not Available Vitals Date Recorded Body height Body mass index (BMI) Body weight Provider Name and Address Organization Details Last Updated DateTime 04/21/2024 167.64 cm 27 kg/m2 83785.93 g Aakash Weaver [place] - [facility] 04/21/2024 14:00:43 Social History None recorded. Functional Status None recorded. Mental Status None recorded. Family History Nothing Reported. Medical History Condition Response Hypertension Y Sleep Disorder Y GERD/Reflux Y Past Encounters Encounter ID Performer Location Encounter Start Date Encounter Closed Date Diagnosis/Indication Diagnosis SNOMED-CT Code Diagnosis ICD10 Code Diagnosis Note [id number] ENEIDA MCCALL MD [facility] [address] [address] 04/21/2024 13:44:06 04/21/2024 15:41:33 Hemoptysis 09672025 R04.2 resolved. laryngosco py negative today for bleeding Chronic sore throat 2754 13682 J31.2 likely due to thrush. Gastroesop hageal reflux disease without esophagitis 966577262 K21.9 continue esomeprazo le Candidiasis of mouth 797 81217 B37.0 FFL notable for montez in base of tongue. LIkely secondary to steroid inhalers. Will treat with nystatin. I asked him to call if not improved. No tumors on laryngosoc py. Chronic hoarseness 22546 06133 105 R49.0 will make voice therapy referral to [facility] Concerns Section Related Observation LastModified by Organization Detai ls LastModified Time None Recorded Concern Status LastModified by Organization Details LastModified Time None Recorded Payers Encounter Date Sequence Insurance Name Policy Number Policy Ayala Covered Member ID Ayala Member ID Guarantor Name 04/21/2024 1 [facility] Laina Lewis [id number] Laina Lewis Notes Date Note Type Note [...] FOL in September 2020. ENEIDA MCCALL MD [address] [place] [address], [place], [address], [facility] - [facility] 04/21/2024 14:43:45
== END 2024-07-19 08:23 | disposition home or self-care (01) ==
LOC: HO.XRAY 08:22
PROVIDERS: PCP Internal Medicine; Visit Provider Nurse Practitioner
DX: K22.2 Esophageal obstruction (principal); K21.00 Gastro-esophageal reflux disease with esophagitis, without bleeding
CPT/HCPCS: 74220

== ENCOUNTER → 2024-07-19 08:24 | Outpatient (BNV) | payer OTHER, SELFPAY | PROVIDERS: PCP Internal Medicine; Visit Provider Physician Assistant Surgical | DX: K20.90 Esophagitis, unspecified without bleeding (principal); K22.0 Achalasia of cardia | CPT/HCPCS: 74246 ==

== ENCOUNTER → 2024-07-25 07:46 | Outpatient (REF) | payer OTHER, SELFPAY ==
--- NOTE | 2024-07-25 07:49 | CA_ITS ---
Transthoracic Echocardiogram Patient (Last, First, Middle): Laina Lewis, Gender: Male Date of : 1955 Age: 68 Procedure Date: 07/25/2024 Procedure Type: Transthoracic Echocardiogram Location: OP Height: 167.64 cm Weight: 65.77 kg BSA: 1.74 m2 Heart Rate: 52 bpm BP: 110 / 65 mmHg Global Transportation Manager: PAUL Referring MD: Gino Pinto MD Symptoms: R06.02 - Shortness of breath Study Quality: Fair ECG Rhythm: Sinus bradycardia Conclusions: - The left ventricular systolic function is normal. The calculated ejection fraction is 70% by biplane method. - The basal inferior and basal inferolateral segments are hypokinetic. - No obvious valvular pathology seen on this study. Findings Left Ventricle Normal left ventricular cavity size. There is normal left ventricular wall thickness. The left ventricular systolic function is normal. The calculated ejection fraction is 70% by biplane method. Diastolic function is normal for age. LV peak GLS -17.8%. Wall Motion Rest Echo Findings The basal inferior and basal inferolateral segments are hypokinetic. Right Ventricle Normal right ventricular cavity size. There is low normal right ventricular systolic function. Atria Both atria are normal in size. Aortic Valve There is a normal trileaflet aortic valve. There is no aortic valve stenosis. There is trace (trivial) aortic valve regurgitation. Mitral Valve There is mild anterior mitral leaflet thickening. There is no mitral valve regurgitation. There is no mitral valve stenosis. Pulmonic Valve The pulmonic valve is likely normal. Tricuspid Valve Normal tricuspid valve structure. There is mild tricuspid valve regurgitation. There is no evidence of pulmonary hypertension. Great Vessels The asc aorta and aortic arch are normal in size. Venous The inferior vena cava is normal in size and collapses greater than 50% with inspiration. Pericardium/Pleural There is no evidence of pericardial effusion. Prior Study Comparison No prior study available for comparison. Recommendations, Care & Conclusions No obvious valvular pathology seen on this study. Measurements 2D Linear Measurements IVSd: 1.06 0.6-0.9/0.6-1.0 cm LVIDd: 4.48 3.9-5.3/4.2-5.9 cm LVIDd Index: 2.57 2.4-3.2/2.2-3.1 cm/m2 LVIDs: 2.05 2.0-3.6 cm LVPWd: 0.76 0.7-1.1 cm LA Diam: 3.50 2.7-3.8/3.0-4.0 cm LAIDs Index: 2.01 1.5-2.3 cm/m2 LV Mass: 166.29 67-162/88-224 g LV Mass Index: 95.57 43-95/49-115 g/m2 LVOT Diam: 1.90 3.0+(-)1.3 cm 2D Systolic Function EF 4C: 65.30 >55% EF 2C: 73.50 >55% EF BiP: 69.70 >55% Mitral Valve MV Pk E: 0.72 MV PK A: 0.78 MV Decel Time: 215.00 E/A: 0.90 E'Lateral: 9.46 E'Medial: 7.29 E/E' Med: 9.90 E/E' Lat: 7.70 PHT: 63.00 MVA PHT: 3.49 Decel Pope: 3.37 Aortic Valve AoV Pk Pieter: 1.50 AoV Mn Pieter: 1.04 AoV VTI: 0.36 AoV Pk Grad: 9.00 Aov Mn Grad: 5.00 LIVIER Cont.VTI: 2.16 LVOT LVOT Pk Pieter: 1.13 LVOT Mn Pieter: 0.78 LVOT VTI: 0.27 LVOT Pk Grad: 5.00 LVOT Mn Grad: 3.00 LVOT Diam: 1.90 LVOT Area: 2.84 Diastolic Function MV Pk E: 0.72 MV Pk A: 0.78 E/A: 0.90 E'Medial: 7.29 E/E' Med: 9.90 E' Laterial: 9.46 E/E' Lat: 7.70 Right Ventricle TAPSE (mm): 17.50 TVS' Pieter: 9.57 Tricuspid Valve TR Pk Pieter: 2.23 TR Pk Grad: 20.00 RA Press: 3.00 RVSP: 23.00 Great Vessels Aorta Sinus of Valsalva: 3.20 2.0-3.5 cm Ao Asc: 3.00 2.1-3.4 cm Ao Arch: 3.20 Pulmonary Valve PV Pk Pieter: 1.25 Peak PV Grad: 6.00 Updated in Other Vendor System with Status of Final Vikram Panda MD electronically signed on 07/25/2024 4:30:21 PM with status of Final
== END ==
LOC: HO.CARD 07:46
PROVIDERS: PCP Internal Medicine; Visit Provider Internal Medicine Cardiovascular Disease
DX: R06.02 Shortness of breath (principal); K22.70 Barrett's esophagus without dysplasia; K29.60 Other gastritis without bleeding; K59.04 Chronic idiopathic constipation; K27.9 Peptic ulcer, site unspecified, unspecified as acute or chronic, without hemorrhage or perforation
CPT/HCPCS: 93306; 99212

== ENCOUNTER → 2024-07-25 07:49 | Outpatient (BNV) | payer OTHER, SELFPAY | PROVIDERS: PCP Internal Medicine; Visit Provider Internal Medicine | DX: I35.1 Nonrheumatic aortic (valve) insufficiency (principal); I36.1 Nonrheumatic tricuspid (valve) insufficiency | CPT/HCPCS: 93306; 93356 ==

== ENCOUNTER 2024-07-25 15:17 | Outpatient (AMB) | payer OTHER, SELFPAY ==
[2024-07-25 15:19] VITALS: BP 139/77; PULSE 59; BMI 28.8
--- NOTE | 2024-07-25 15:19 | A.OFFVIS_ITS ---
Vital Signs 07/25/24 15:19 Height 5 ft 4 in Weight 168 lb BMI 28.8 BP 139/77 Blood Pressure Location Lt brachial Position Sitting Pulse 59 Intake Visit Reasons: s/p egd Intake Note: Patient in office today in follow up s/p EGD. CC: Patient states via [place]ian clerk travel reservations that his inside is not quite right , he reports some pain in his stomach. Pt also reports some constipation, blood in stool, nausea sometimes, heartburn, and acid reflux. Automated Access Systems Technician Required: Yes Automated Access Systems Technician Language: [place]ian Automated Access Systems Technician Name: Camilla [id number] Accompanied by: Self / Same As Patient Allergies No Known Allergies Allergy (Verified 07/25/24 15:46) HPI HPI s/p egd: Details: Assessment & Plan (1) GERD with esophagitis: Code(s): K21.00 - Gastro-esophageal reflux disease with esophagitis, without bleeding Category: Medical Qualifiers: Esophagitis bleeding: unspecified whether hemorrhage Qualified Code(s): K21.00 - Gastro-esophageal reflux disease with esophagitis, without bleeding (2) Esophageal stricture: Code(s): K22.2 - Esophageal obstruction Category: Medical (3) Erosive gastritis: Code(s): K29.60 - Other gastritis without bleeding Category: Medical Orders: Orders EGD - GI Use Only Today K29.60 - Other gastritis without bleeding Medications: New linaclotide (Linzess) Take first thing in the morning with a full glass of water. 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 His dysphagia was apparently attributed to motility problems, but no barium swallow is in the records he brings wtih him today. He says that his swallowing has been okay, but he thinks reflux may be causing his hoarse voice. He was told he needed an EGD at [facility], but they are now out of network for his insurance. This is why he was sent here. His PCP wanted a repeat EGD to assess for healing or robby erosive gastritis discovered on his 2021 EGD. He is currently on nexium and carafate. Despite the above therapy he still has pain in the epigastrum with eating w/o improvement. He does not vomit but he has nausea after eating. He denies early satiety. He has had some wt fluctuations, mostly since his thyroid surgery. NO severe wt loss or gain. He says he also had vocal cord surgery and prostate surgery (TURP) at that time. He was seeing an ENT at that time. He suffers CIC all of the time. This is borne out on his CT which showed a quite large stool burden. He has even been seen in the [facility] ER for severe obstruction. This could be c/t his subjective epigastric pain via reflux - although this is not seen higher up in his esophagus via gas trapping and increased belching. He was put on MIralax in the past by the ER and this helped a bit but did not offer complete relief. He has also failed senna, bisacodyl, colace, fiber so we will progress to LInzess 145mcg and titrate. Being on sucralfate would be a c/f. But he has not taken this since 01/09 since the insurance changed and he could not see GI. The same with the esomeprazole 40mg. I will refill the esomeprazole, but am holding off on the carafate until after the EGD given the CIC. He says he already had his repeat colonoscopy in November or December of this year after his 2019 scope shoing TA's. Assessment & Plan Assessment & Plan (1) Erosive gastritis: Code(s): K29.60 - Other gastritis without bleeding Category: Medica (2) Esophageal stricture: Code(s): K22.2 - Esophageal obstruction Category: Medical (3) GERD with esophagitis: Code(s): K21.00 - Gastro-esophageal reflux disease with esophagitis, without bleeding Category: Medical Qualifiers: Esophagitis bleeding: unspecified whether hemorrhage Qualified Code(s): K21.00 - Gastro-esophageal reflux disease with esophagitis, without bleeding (4) Chronic idiopathic constipation: Code(s): K59.04 - Chronic idiopathic constipation Category: Medical Medications: New rabeprazole (AcipHex) 20 mg PO QAM 30 tabs 6RF K29.60 - Other gastritis without bleeding cimetidine 800 mg PO BEDTIME 30 tabs 6RF K29.60 - Other gastritis without bleeding Discontinued esomeprazole magnesium Discontinued Reason: Doctor's Order 40 mg PO DAILY 30 caps 6RF EGD 07/11/24 EGD Findings:? * Esophagus:? Normal mucosa noted in the entire esophagus. The Z line was at 38 cm displaced by a small hiatal hernia with the diaphragmatic pinch at 40 cm. There was edema and nodularity at the GE junction, which was biopsied with cold forceps. * Stomach:? A small healing ulcer noted along the lesser curvature in the pre- pyloric area. Cold forceps biopsies were taken for histology. Cold forceps biopsies were also taken as per Carmen protocol to screen for GIM and gastric ca. * Duodenum:? Normal mucosa was noted in the whole of the examined duodenum. ? EGD Impressions:? * GE junction nodule (biopsy) * Gastritis and healing ulcer (biopsy) * Normal duodenum ?? Recommendations:?? * Follow biopsy results. Our office will call or send a letter with results within 7-10 days. * Continue PPI therapy. * If H pylori +, patient will be prescribed eradication therapy followed by test of cure. * Avoid NSAIDs. * Consider repeat EGD every 2 years for screening of gastric ca till age 75 (pt is Bahamian). BIOPSY Received: 07/11/24 Diagnosis A. Stomach, healing ulcer, biopsy: Gastric antral mucosa with focal minimal chronic active inflammation, and focal intestinal metaplasia with reactive epithelial changes compatible with healing ulcer; negative for H. pylori and dysplasia. B. Gastric antrum, lesser curvature, biopsy: Gastric antral mucosa with minimal chronic inactive gastritis; negative for H. pylori, intestinal metaplasia and dysplasia. C. Gastric antrum, greater curvature, biopsy: Gastric antral mucosa with minimal chronic inactive gastritis; negative for H. pylori, intestinal metaplasia and dysplasia. D. Gastric incisura, biopsy: Gastric body mucosa with minimal chronic inactive gastritis; negative for H. pylori, intestinal metaplasia and dysplasia. E. Gastric body, lesser curvature, biopsy: Gastric body mucosa with congestion and focal minimal chronic inactive inflammation; negative for H. pylori, intestinal metaplasia and dysplasia. F. Gastric body, greater curvature, biopsy: Gastric body mucosa with focal minimal chronic inflammation with few neutrophils; negative for H. pylori, intestinal metaplasia and dysplasia. G. Gastroesophageal junction, nodule, biopsy: Squamous mucosa with hyperplasia, and columnar mucosa with mild acute and chronic inflammation, multilayered epithelium; negative for intestinal metaplasia and dysplasia (see comment). Comment: (G): Multilayered epithelium may be associated with Soto's esophagus and follow-up is warranted TODAYS VISIT Bahamian #[id number] He is taking the aciphex qam and the cimetidine qhs but has not seen much of a difference. I will add carafate 1 g q noon, I am cautious with this given his baseline CIC. He has Linzess 145mcg, but was only taking it prn ROV 8 weeks. [facility] Medical History (Updated 07/25/24 @ 16:40 by PHONG Lombardi) Finger laceration with complication Encounter to establish care Trigger finger Thyroid nodule Surgical History H/O colonoscopy History of esophagogastroduodenoscopy (EGD) Hx of cataract extraction History of thyroid surgery History of prostate surgery Family History Sister Arthritis Mother Heart disease Lung cancer Father Hypertension Sister Thyroid cancer Social History Household Members: Spouse Housing: Apartment Are you a primary managed care manager to a significant other at home: No Do you presently have visiting nurse or other home services: No Alcohol intake: never Patient Tobacco Use Status: Never used Tobacco e-Cigarette/Vaping Use: Never Used Second Hand Smoke Exposure: No service: No Current occupational status: employed 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 Current occupational exposures/hazards: No Cognitive needs: No Hearing needs: No Vision needs: No Review of Systems Const Denies fatigue, Denies fever(s), Denies night sweats, Denies poor appetite and Denies weight loss ENT Reports Normal hearing present, Denies dental pain, Denies dysphagia, Denies hearing loss, Denies mouth pain, Denies odynophagia, Denies throat swelling, Denies tongue swelling and Reports other (Dentition adequate) Card Reports no additional complaints Resp Reports no additional complaints GI Details: Reports abdominal pain, Denies melena, Denies bloating, Denies hematochezia, Reports constipation, Denies GI cramping, Denies dysphagia, Denies excessive flatus, Denies early satiety, Reports heartburn, Denies diarrhea, Denies nausea, Denies odynophagia, Denies vomiting and Denies hematemesis Skin/Breast Denies pruritus, Denies lesions, Denies rash and Denies jaundice Neuro Reports Normal hearing present and Denies Abnormal speech present Endo Denies fatigue Aller/Immun Denies throat swelling and Denies tongue swelling Physical Exam Vital Signs: Last Vital Signs Pulse 59 07/25/24 15:19 BP 139/77 07/25/24 15:19 BMI result Body Mass Index 28.8 Const General: cooperative, no acute distress, well developed and well groomed Nutritional Appearance: average body habitus and well nourished Orientation/consciousness: oriented to person, oriented to place and oriented to time Limitations: language barrier HEENT Head: Yes normocephalic and Yes atraumatic Eyes General: appearance normal, both eyes and all related structures Pupils: Equal, round and reactive pupils present Neck Neck: Yes normal visual inspection and Yes no lymphadenopathy Thyroid: Thyroid normal Resp Effort & Inspection: normal respiratory effort and able to speak in complete sentences Auscultation: clear to auscultation bilaterally Cardio Rate: regular rate Rhythm: regular rhythm Heart sounds: Normal, physiologic split S2 sound present Peripheral pulses: radial pulses present and posterior tibial pulses present GI Inspection: No distended and No Abdominal panniculus present Palpation (GI): Soft to palpation, nontender, no guarding, not rigid and No hepatosplenomegaly present Percussion: Yes normal to percussion Auscultation: normal bowel sounds Rectal Exam - Male: Yes deferred Skin General skin exam: no rashes or lesions noted, turgor normal, skin not dry, no jaundice, No spider nevi and no striae Rashes: no rashes Nails: normal Neuro General: oriented to person, oriented to place and oriented to time Cranial nerves: Yes Equal, round and reactive pupils present and Yes Normal hearing present Speech: No Abnormal speech present Extrem General: Yes normal to inspection, No clubbing, No cyanosis and No edema Psych Appearance: grossly normal and well kempt Mental Status: mental status grossly normal Speech and movement: Normal speech and movement present Affect: normal affect Attitude: cooperative Thought process: Normal thought process present and not confabulating Thought content: Normal thought content present Insight: Limited insight present (Psych) Judgement: Limited judgement present (Psych) Results Reviewed Results Reviewed: EGD 07/11/24 EGD Findings:? * Esophagus:? Normal mucosa noted in the entire esophagus. The Z line was at 38 cm displaced by a small hiatal hernia with the diaphragmatic pinch at 40 cm. There was edema and nodularity at the GE junction, which was biopsied with cold forceps. * Stomach:? A small healing ulcer noted along the lesser curvature in the pre- pyloric area. Cold forceps biopsies were taken for histology. Cold forceps biopsies were also taken as per Carmen protocol to screen for GIM and gastric ca. * Duodenum:? Normal mucosa was noted in the whole of the examined duodenum. ? EGD Impressions:? * GE junction nodule (biopsy) * Gastritis and healing ulcer (biopsy) * Normal duodenum ?? Recommendations:?? * Follow biopsy results. Our office will call or send a letter with results within 7-10 days. * Continue PPI therapy. * If H pylori +, patient will be prescribed eradication therapy followed by test of cure. * Avoid NSAIDs. * Consider repeat EGD every 2 years for screening of gastric ca till age 75 (pt is Bahamian). BIOPSY Received: 07/11/24 Diagnosis A. Stomach, healing ulcer, biopsy: Gastric antral mucosa with focal minimal chronic active inflammation, and focal intestinal metaplasia with reactive epithelial changes compatible with healing ulcer; negative for H. pylori and dysplasia. B. Gastric antrum, lesser curvature, biopsy: Gastric antral mucosa with minimal chronic inactive gastritis; negative for H. pylori, intestinal metaplasia and dysplasia. C. Gastric antrum, greater curvature, biopsy: Gastric antral mucosa with minimal chronic inactive gastritis; negative for H. pylori, intestinal metaplasia and dysplasia. D. Gastric incisura, biopsy: Gastric body mucosa with minimal chronic inactive gastritis; negative for H. pylori, intestinal metaplasia and dysplasia. E. Gastric body, lesser curvature, biopsy: Gastric body mucosa with congestion and focal minimal chronic inactive inflammation; negative for H. pylori, intestinal metaplasia and dysplasia. F. Gastric body, greater curvature, biopsy: Gastric body mucosa with focal minimal chronic inflammation with few neutrophils; negative for H. pylori, intestinal metaplasia and dysplasia. G. Gastroesophageal junction, nodule, biopsy: Squamous mucosa with hyperplasia, and columnar mucosa with mild acute and chronic inflammation, multilayered epithelium; negative for intestinal metaplasia and dysplasia (see comment). Comment: (G): Multilayered epithelium may be associated with Soto's esophagus and follow-up is warranted Assessment & Plan Assessment & Plan (1) Soto's esophagus determined by biopsy: Comment: 06/2024 EGD, should be repeated every 2 years because of this and peptic ulcer disease and a higher genetic predisposition to stomach cancer in Bahamian people's Code(s): K22.70 - Soto's esophagus without dysplasia Category: Medical (2) Erosive gastritis: Code(s): K29.60 - Other gastritis without bleeding Category: Medical (3) Chronic idiopathic constipation: Code(s): K59.04 - Chronic idiopathic constipation Category: Medical (4) Peptic ulcer disease: Code(s): K27.9 - Peptic ulcer, site unspecified, unspecified as acute or chronic, without hemorrhage or perforation Category: Medical Plan Bah[place]ian #[id number] He is taking the aciphex qam and the cimetidine qhs but has not seen much of a difference. I will add carafate 1 g q noon, I am cautious with this given his baseline CIC. He has Linzess 145mcg, but was only taking it prn ROV 8 weeks. Medications: New sucralfate (Carafate) 1 g PO QNOON 30 tabs 3RF K22.70 - Soto's esophagus without dysplasia, K27.9 - Peptic ulcer, site unspecified, unspecified as acute or chronic, without hemorrhage or perforation, K29.60 - Other gastritis without bleeding Refilled linaclotide (Linzess) Take first thing in the morning with a full glass of water. 145 mcg PO QAM 30 caps 6RF K58.1 - Irritable bowel syndrome with constipation Coding Level of Care Code Est Pt Level 3 (47381) Diagnoses Soto's esophagus determined by biopsy K22.70 Erosive gastritis K29.60 Chronic idiopathic constipation K59.04 Peptic ulcer disease K27.9
--- OUTSIDE RECORDS SUMMARY | 2024-07-25 17:43 | XMS_ITS | Continuity of Care Document ---
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 Patient InstructionsNo instructions recorded. Reason for Referral None Reported. Problems Name Problem SNOMED Code Status Onset Date Resolution Date Notes Provider Name and Address Organization Details Recorded Time Sensorine ural hearing loss of bilateral ears 994606262 Active 2019 Sensorine ural hearing loss, bilateral ; Note: Date Diagnosed : 02/26/2020 3:32 PM (H90.3) Note: Date Diagnosed : 02/26/2020 3:32 PM (H90.3) Not Available [facility] 4 00:53:14 Stomatiti s 64163426 Active 2020 Oral thrush; Note: Date Diagnosed : 04/14/2021 11:22 AM (B37.0) Not Available [facility] 4 02:18:55 Candidias is of mouth 57079597 Active 2020 Oral thrush; Note: Date Diagnosed : 04/14/2021 11:22 AM (B37.0) Not Available [facility] 4 02:18:55 Gastroeso phageal reflux disease without esophagit is 397605079 Active 2015 Gastro-es ophageal reflux disease without esophagit is; Note: Date Diagnosed : 07/22/2015 2:46 PM (K21.9) Not Available 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 4 02:18:19 Dysphagia 44148982 Active 2022 Dysphagia , unspecifi ed; Note: Date Diagnosed : 10/27/2021 12:05 PM (R13.10) ; Start Date : 2 Other dysphagia ; Note: Date Diagnosed : 04/07/2023 1:44 PM (R13.19) Not Available [facility] 4 02:19:19 Benign paroxysma l positiona l vertigo 048399952 Active 2019 Benign paroxysma l vertigo, left ear; Note: Date Diagnosed : 02/26/2020 3:32 PM (H81.12) Not Available [facility] 4 02:18:20 Cough 58635314 Active 2015 Cough, unspecifi ed; Note: Changed from R05 to R05.9 ( 2 2:10 PM) , Date Diagnosed : 09/04/2015 3:10 PM (R05) Not Available [facility] 4 02:19:08 Oropharyn geal dysphagia 87943331 Active 2023 Dysphagia , oropharyn geal phase; Note: Date Diagnosed : 09/16/2023 1:19 PM (R13.12) Not Available [facility] 4 02:19:08 Hemoptysi s 21984002 Active 2023 ENEIDA MCCALL MD [address] [place] [address], [facility] [place], [address] , [place] [facility] [place] 4 14:33:59 Chronic sore throat 848668410 Active 2023 ENEIDA MCCALL MD [address] [place] [address], [place], [address] , [facility] - [facility] [place] 4 14:34:04 Chronic hoarsenes s 48349907126 05 Active 2023 ENEIDA MCCALL MD [address] [place] [address], [place], [address] , [place] - [facility] 4 14:42:59 Problem Notes None recorded. Procedures Surgical History Date Name Laterality Status Provider Name and Address Organization Details Recorded Time 04/21/20 FFL_RE completed ENEIDA MCCALL MD [address] [place] [address],[place] [address], [place], [address], [place] - [facility] 04/21/2024 14:41:39 transurethral prostatectomy completed Bibi Neal [place] [facility] 05/10/2024 14:05:40 subtotal thyroidectomy completed Bibi Neal [place] - [facility] 05/10/2024 14:05:53 Imaging Results None recorded. Procedure Notes None recorded. Medical Equipment None Reported. Allergies No known drug allergies Medications Name Sig Start Date Stop Date Status Note LastModified by Organization Details LastModified Time losartan 50 mg tablet 05/06 completed Medicati on ID: [id number] B rand Name: losartan Send Method: E-Prescr [...] gram tablet 05/06 completed Medicati on ID: [id number] D uration Value: 7 Brand Name: valacycl [...] mucosal jelly 05/10 completed Medicati on ID: [id number] D uration Value: 14 Brand Name: lidocain [...] mg capsule 05/06 completed Medicati on ID: [id number] D uration Value: 90 Brand Name: tamsulos in Send Method: E-Prescr ibed Sub s Allowed: subs OK Speci al Instruct ion: TAKE ONE CAPSULE DAILY Me dication GenericN jay: tamsulos in Not Available Not Available Not Available pantopraz ole 40 mg tablet,de layed release 07/12 completed Medicati on ID: [id number] D uration Value: 30 Brand Name: pantopra [...] by mouth 07/12 completed Medicati on ID: [id number] D uration Value: 30 Prescri bed By [...] oral powder 05/10 completed Medicati on ID: [id number] D uration Value: 30 Brand Name: polyethy [...] layed release 12/11 completed Medicati on ID: [id number] P rescribe d By Name: Trevon Gee [...] both nostrils 10/17 completed Medicati on ID: [id number] P rescribe d By Name: Nasrinanttiffany Trevon [address], nd Name: Flonase Allergy Relief S end Method: E-Prescr ibed Sub s Allowed: subs OK Medic ationGen ericName : Flonase Allergy Relief Not Available Not Available Not Available Vitals Date Recorded Body height Body weight Provider Name and Address Organization Details Last Updated DateTime 05/10/2024 167.64 cm 19542.93 g Bibi Neal [place] [facility] 05/10/2024 14:01:54 Social History None recorded. Functional Status None recorded. Mental Status None recorded. Family History Nothing Reported. Medical History Condition Response Hypertension Y Sleep Disorder Y GERD/Reflux Y Past Encounters Encounter ID Performer Location Encounter Start Date Encounter Closed Date Diagnosis/Indication Diagnosis SNOMED-CT Code Diagnosis ICD10 Code Diagnosis Note [id number] ENEIDA MCCALL MD [facility] of [address] [address] 04/21/2024 13:44:06 04/21/2024 15:41:33 Hemoptysis 68454906 R04.2 resolved. laryngosco py negative today for bleeding Chronic sore throat 2754 64984 J31.2 likely due to thrush. Gastroesop hageal reflux disease without esophagitis 659999676 K21.9 continue esomeprazo le Candidiasis of mouth 797 90848 B37.0 FFL notable for montez in base of tongue. LIkely secondary to steroid inhalers. Will treat with nystatin. I asked him to call if not improved. No tumors on laryngosoc py. Chronic hoarseness 40536 65269 105 R49.0 will make voice therapy referral to [facility] [id number] VELASQUEZ GONZALEZ MD [facility] of [address] [address] 05/10/2024 13:45:35 05/10/2024 15:10:38 Candidiasis of mouth 42149674 B37.0 Chronic hoarseness 46885 34947 105 R49.0 Chronic sore throat 2754 26665 J31.2 Gastroesop hageal reflux disease without esophagitis 418306128 K21.9 Health Concerns Section Related Observation LastModified by Organization Detai ls LastModified Time None Recorded Concern Status LastModified by Organization Details LastModified Time None Recorded Payers Encounter Date Sequence Insurance Name Policy Number Policy Ayala Covered Member ID Ayala Member ID Guarantor Name 05/10/2024 1 [facility] Laina Lewis [id number] Laina Lewis Notes Date Note Type Note [...] on [place]. Normal MBS. VELASQUEZ QUINTERO MD [address] [place] [address], [place], [address], [facility] - [facility] 05/11/2024 12:34:14
--- OUTSIDE RECORDS SUMMARY | 2024-07-25 17:43 | XMS_ITS | Data Portability ---
Author Organization [place] - [facility], Allergy Address [address] [address] Care Team Providers Care Senior Behavioral Scientist Name Role Phone SUMMER LOWE Primary Care Provider [phone] Assessment Encounter Date Assessment Date Assessment LastModified [...] - Appt 05/26 @ 8:30am 2023 024 [facility], [address], [place], [address], 05/01/2024 16:23:00 Procedures None recorde d. Surgeries None recorde d. Imaging None recorde d. Medication Orders nystati n 100,000 unit/mL oral suspens ion 2023 [facility] [address] [place] [address], [id number], 04/21/2024 14:42:09 nystati n 100,000 unit/mL oral suspens ion 2023 [facility], [address] [place] [address], [address], 05/10/2024 16:22:57 Patient TargetsNo targets recorded. Patient InstructionsNo instructions recorded. Reason for Referral Appt 05/26 @ 8:30am Referring Physician: Eneida Mccall Otolaryngology, Encounter Date: 04/21/2024 Problems Name Problem SNOMED Code Status Onset Date Resolution Date Notes Provider Name and Address Organization Details Recorded Time Sensorine ural hearing loss of bilateral ears 613863793 Active 2019 Sensorine ural hearing loss, bilateral ; Note: Date Diagnosed : 02/26/2020 3:32 PM (H90.3) Note: Date Diagnosed : 02/26/2020 3:32 PM (H90.3) Not Available [facility] 00:53:14 Stomatiti s 77100659 Active 2020 Oral thrush; Note: Date Diagnosed : 04/14/2021 11:22 AM (B37.0) Not Available [facility] 02:18:55 Candidias is of mouth 13616501 Active 2020 Oral thrush; Note: Date Diagnosed : 04/14/2021 11:22 AM (B37.0) Not Available [facility] 4 02:18:55 Gastroeso phageal reflux disease without esophagit is 725370311 Active 2015 Gastro-es ophageal reflux disease without esophagit is; Note: Date Diagnosed : 07/22/2015 2:46 PM (K21.9) [facility] Available [facility] 4 02:19:18 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, unilatera l; Note: Date Diagnosed : 12/12/2019 3:31 PM (J38.01) Not Available [facility] 4 02:18:19 Dysphagia 99240095 Active 2022 Dysphagia , unspecifi ed; Note: Date Diagnosed : 10/27/2021 12:05 PM (R13.10) ; Start Date : 2 Other dysphagia ; Note: Date Diagnosed : 04/07/2023 1:44 PM (R13.19) Not Available [facility] 4 02:19:19 Benign paroxysma l positiona l vertigo 470905794 Active 2019 Benign paroxysma l vertigo, left ear; Note: Date Diagnosed : 02/26/2020 3:32 PM (H81.12) Not Available [facility] 4 02:18:20 Cough 42793744 Active 2015 Cough, unspecifi ed; Note: Changed from R05 to R05.9 ( 2 2:10 PM) , Date Diagnosed : 09/04/2015 3:10 PM (R05) Not Available [facility] 4 02:19:08 Oropharyn geal dysphagia 44508922 Active 2023 Dysphagia , oropharyn geal phase; Note: Date Diagnosed : 09/16/2023 1:19 PM (R13.12) Not Available [facility] 4 02:19:08 Hemoptysi s 01755806 Active 2023 ENEIDA MCCALL MD [address] [facility],[place] [address], [place], [address] , [place] [facility] 4 14:33:59 Chronic sore throat 327896917 Active 2023 ENEIDA MCCALL MD [address] [facility] [address], [place], [address] , [place] [facility] 4 14:34:04 Chronic hoarsenes s 30676434668 05 Active 2023 ENEIDA MCCALL MD [address] [facility],[place] [address], [place], [address] , [place] [facility] 14:42:59 Problem Notes None recorded. Procedures Surgical History Date Name Laterality Status Provider Name and Address Organization Details Recorded Time 04/21/20 24 FFL_RE completed ENEIDA MCCALL MD [address] [facility],[place] [address], [place], [address], [place] [facility] 04/21/2024 14:41:39 transurethral prostatectomy completed Bibi Neal [place] [facility] 05/10/2024 14:05:40 subtotal thyroidectomy completed Bibi Neal [place] [facility] 05/10/2024 14:05:53 Imaging Results None recorded. Procedure Notes None recorded. Medical Equipment None Reported. Allergies No known drug allergies Medications Name Sig Start Date Stop Date Status Note LastModified by Organization Details LastModified Time losartan 50 mg tablet 05/06 completed Medicati on ID: [id number] B rand Name: losartan Send Method: E-Prescr [...] gram tablet 05/06 completed Medicati on ID: [id number] D uration Value: 7 Brand Name: valacycl [...] mucosal jelly 05/10 completed Medicati on ID: [id number] D uration Value: 14 Brand Name: lidocain [...] mg capsule 05/06 completed Medicati on ID: [id number] D uration Value: 90 Brand Name: tamsulos in Send Method: E-Prescr ibed Sub s Allowed: subs OK Speci al Instruct ion: TAKE ONE CAPSULE DAILY Me dication GenericN jay: tamsulos in Not Available Not Available Not Available pantopraz ole 40 mg tablet,de layed release 07/12 completed Medicati on ID: [id number] D uration Value: 30 Brand Name: pantopra [...] by mouth 07/12 completed Medicati on ID: [id number] D uration Value: 30 Prescri bed By [...] oral powder 05/10 completed Medicati on ID: [id number] D uration Value: 30 Brand Name: polyethy [...] layed release 12/11 completed Medicati on ID: [id number] Jennifer bar By Name: Trevon Gee rd, [...] both nostrils 10/17 completed Medicati on ID: [id number] Jennifer bar By Name: Trevon Gee rd, nd Name: Flonase Allergy Relief S end Method: E-Prescr ibed Sub s Allowed: subs OK Medic ationGen ericName : Flonase Allergy Relief Not Available Not Available Not Available Vitals Date Recorded Body height Body mass index (BMI) Body weight Provider Name and Address Organization Details Last Updated DateTime 04/21/2024 167.64 cm 27 kg/m2 52202.93 g Aakash Weaver [place] [facility] 04/21/2024 14:00:43 Date Recorded Body height Body weight Provider Name and Address Organization Details Last Updated DateTime 05/10/2024 167.64 cm 61703.93 g Bibi Neal [place] [facility] 05/10/2024 14:01:54 Social History None recorded. Functional Status None recorded. Mental Status None recorded. Family History Nothing Reported. Medical History Condition Response Hypertension Y Sleep Disorder Y GERD/Reflux Y Past Encounters Encounter ID Performer Location Encounter Start Date Encounter Closed Date Diagnosis/Indication Diagnosis SNOMED-CT Code Diagnosis ICD10 Code Diagnosis Note [id number] ENEIDA MCCALL MD [facility] of [address] [address] 04/21/2024 13:44:06 04/21/2024 15:41:33 Hemoptysis 33804514 R04.2 resolved. laryngosco py negative today for bleeding Chronic sore throat 2754 12486 J31.2 likely due to thrush. Gastroesop hageal reflux disease without esophagitis 038276622 K21.9 continue esomeprazo le Candidiasis of mouth 797 92078 B37.0 FFL notable for montez in base of tongue. LIkely secondary to steroid inhalers. Will treat with nystatin. I asked him to call if not improved. No tumors on laryngosoc py. Chronic hoarseness 50896 69739 105 R49.0 will make voice therapy referral to [place] [id number] VELASQUEZ GONZALEZ MD [facility] of [address] [address] 05/10/2024 13:45:35 05/10/2024 15:10:38 Candidiasis of mouth 03599960 B37.0 Chronic hoarseness 05747 75772 105 R49.0 Chronic sore throat 2754 10292 J31.2 Gastroesop hageal reflux disease without esophagitis 106983896 K21.9 Health Concerns Section Related Observation LastModified by Organization Detai ls LastModified Time None Recorded Concern Status LastModified by Organization Details LastModified Time None Recorded Advance Directives Directive None Recorded Payers Encounter Date Sequence Insurance Name Policy Number Policy Ayala Covered Member ID Ayala Member ID Guarantor Name 04/21/2024 1 [facility] Laina Lewis [id number] Laina Lewis 05/10/2024 1 [facility] Laina Lewis [id number] Laina Lewis Notes Date Note Type Note [...] FOL in September 2020. ENEIDA MCCALL MD [address] [place] [address],[address], [address], [place] - [facility] 04/21/2024 14:43:45 05/10/2024 text/html 68-year-old [...] [place]. Normal MBS. VELASQUEZ QUINTERO MD [address] [facility],[place] [address], [place], [address], [facility] - [facility] 05/11/2024 12:34:14
== END 2024-07-25 16:15 | disposition home or self-care (01) ==
PROVIDERS: PCP Internal Medicine; Visit Provider Nurse Practitioner
DX: K22.70 Barrett's esophagus without dysplasia (principal); K29.60 Other gastritis without bleeding; K59.04 Chronic idiopathic constipation; K27.9 Peptic ulcer, site unspecified, unspecified as acute or chronic, without hemorrhage or perforation
CPT/HCPCS: 99213

== ENCOUNTER 2024-08-31 13:58 | Outpatient (AMB) | payer OTHER, SELFPAY ==
[2024-08-31 14:00] VITALS: BP 126/84; PULSE 61; O2SAT 96; BMI 26.4
--- NOTE | 2024-08-31 14:00 | A.OFFVIS_ITS ---
Vital Signs 08/31/24 14:00 Height 5 ft 4 in Weight 153 lb 14.122 oz BMI 26.4 BP 126/84 Blood Pressure Location Lt brachial Position Sitting Pulse 61 Pulse Source Pulse Oximeter Pulse Oximetry (%) 96 Oxygen Delivery Method Room Air Intake Visit Reasons: history of malignant neoplasm of thyroid Intake Note: Patient present today for history of malignant neoplasm of thyroid office visit. Laboratory Animal Care Veterinarian Required: No Accompanied by: Self / Same As Patient Allergies No Known Allergies Allergy (Verified 08/31/24 14:03) HPI Comments Details: 68-year-old male with history of thyroid nodules who is s/p left partial thyroidectomy coming in today for fup History significant for CAD. HPI from prior visit Patient describes he was referred to endocrinology somewhere in [place] (PCP Katie Jaimes [address] [facility] [address] [place] [address] for thyroid nodules. Subsequently fna x2 reports abnormal results. History of thyroid nodules, s/p partial thyroidectomy Dr Salamanca July 2019. Surgery done at [facility], [address] [place] [address] Pathology was benign per patient We do not have these records yet. Are staff reach out to all of these doctors/facilities mentioned above but nobody could provide any records for this patient. Not on levothyroxine Labs Laboratory Tests 02/08/24 02/08/24 15:30 Unknown TSH 1.61 Thyroglobulin 10.1 H Thyroglobulin Antibody <1 Patient currently endorses constipation. Reports intermittent palpitation, anxiety, Denies mood changes, changes in appearance of eyes or vision changes, tremors, increased diaphoresis or dry skin. ?Report chronic low energy. feels cold while sleeping, Reports lost about 20 lbs post surgery since 2019 but has gained most of it back. Endorses difficulty swallowing for the past year. follows with [facility]. Saw Kevin Oliva 12/27/2023. 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 History of gastric erosions, esophagitis. Patient denies any difficulty swallowing, pain on swallowing or voice changes or difficulty breathing. Patient denies any history of childhood neck radiation. Denies having ever used lithium, amiodarone or biotin supplements. Born and raised in [place]. Moved here 2006. 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 Older sister had thyroid cancer. No family history of thyroid disease other than that. Interval history We were unable to obtain any of his records Denies any compressive sx Says he has had some weight fluctuations up and down Reports tremors while sleeping?? He didnt do his thyrodi blood work supposed to be done prior to his appointment Physical exam General: sitting comfortably in bed in no acute distress HEENT: normocephalic/atraumatic, moist oral mucosa Neck: Well healed surgical scar noted from partial thyroidectomy Cardiac: normal heart sounds Pulm: normal breath sounds B/L, no added breath sounds Abd: not distended, no tenderness Extremities: no edema, no signs of myxedema Neuro: AAO x3, Speech: normal, no facial droop, moving all 4 extremities Skin: no rash Laboratory Tests 02/08/24 02/08/24 15:30 Unknown TSH 1.61 Thyroglobulin 10.1 H Thyroglobulin Antibody <1 PFSH Medical History (Updated 07/25/24 @ 16:40 by PHONG Lombardi) Finger laceration with complication Encounter to establish care Trigger finger Thyroid nodule Surgical History H/O colonoscopy History of esophagogastroduodenoscopy (EGD) Hx of cataract extraction History of thyroid surgery History of prostate surgery Family History Sister Arthritis Mother Heart disease Lung cancer Father Hypertension Sister Thyroid cancer Social History Household Members: Spouse Housing: Apartment Are you a primary hospice care transitions coordinator to a significant other at home: No Do you presently have visiting nurse or other home services: No Alcohol intake: never Patient Tobacco Use Status: Never used Tobacco e-Cigarette/Vaping Use: Never Used Second Hand Smoke Exposure: No service: No Current occupational status: employed 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 Current occupational exposures/hazards: No Cognitive needs: No Hearing needs: No Vision needs: No Physical Exam Vital Signs: Last Vital Signs Pulse 61 08/31/24 14:00 BP 126/84 08/31/24 14:00 Pulse Ox 96 08/31/24 14:00 Oxygen Delivery Method Room Air 08/31/24 14:00 BMI result Body Mass Index 26.4 Assessment & Plan Assessment & Plan (1) Thyroid Nodule: Code(s): E04.1 - Nontoxic single thyroid nodule Category: Medical Plan: Patient with family history of thyroid cancer in sister, with occupational exposure to some radiation in the past, who has a history of thyroid nodules, status post left partial thyroidectomy in 07/31/2019 at [facility]. We do not have these records but patient says pathology was benign. We could not find any of his records anywhere. Our staff called the facilities mentioned above and they could not find any information on the patient. We also told the patient to get his information sent over which he says he did sign a paper to have that happen. However nothing was sent over. At this time I have told him to go to medical records at [facility] and get his records printed and dropped to my office. He forgot to do his blood work which he was supposed to do before this appointment. he has not required any levothyroxine post surgery. He has some nonspecific symptoms, we will get thyroid blood work. Plan: -ordered TSH, free T4 -ordered ultrasound of the thyroid -follow up on the status of pathology records from 2019 -follow up in 8 weeks to discuss results Plan See above Orders: Orders Thyroid Stimulating Hormone Today E04.1 - Nontoxic single thyroid nodule Free T4 (Free Thyroxine) Today E04.1 - Nontoxic single thyroid nodule US thyroid Today E04.1 - Nontoxic single thyroid nodule Patient Instructions: Get your records printed for us and please drop to my office which should include your surgical pathology Do blood work today Do ultrasound of the thyroid someone will call you to schedule this Coding Level of Care Code Est Pt Level 3 (32755) Diagnoses Thyroid Nodule E04.1
--- OUTSIDE RECORDS SUMMARY | 2024-08-31 15:01 | XMS_ITS | Encounter Summary ---
Author Organization [facility] Address [address] [place] [address] Care Team Providers Care Production Dispatcher Name Role Phone Reilly Baker MD, PHD Unavailable Unava ilWayne Osborne Primary Care Provider Dafne Hilton MD Unavailable [phone] Desi Swenson NP Unavailable [phone] Encounter Details Date Type Department Care Team Description 04/27/2022 SCAN [facility] Medical [facility] [address] [facility] [address] [place] [id number] Ena Whipple PA-C [address] [address] Social History Tobacco Use Types Packs/Day Years Used Date Smoking Tobacco: Never Smokeless Tobacco: Never Alcohol Use Standard Drinks/Week Comments No 0 (1 standard drink = 0.6 oz pur e alcohol) Sex Assigned at Date Recorded Not on file Job Start Date Occupation Industry Not on file Not on file Not on file COVID-19 Exposure Response Date Recorded In the last 10 days, have yo u been in contact with someone who was confirmed or suspected to have Coronavirus/COVID-19? No / Unsure 04/27/2022 2:46 PM EDT documented as of this encounter Plan of Treatment Upcoming Encounters Date Type Specialty Care Team Description 04/29/2027 Biological Technician Report Abstract, Provider documented as of this encounter Visit Diagnoses Not on filedocumented in this encounter Care Teams Production Dispatcher Relationship Specialty Start Date End Date Wayne Jaimes [address] [place] [address] PCP - General Internal Medicine 02/16/22 Reilly Baker MD, PHD Surgeon Neurosurgery 01/20/22 Dafne Hilton MD [address] [place] [address] Specialist Cardiology 10/13/22 Desi Swenson NP [address] [place], [place] [id number] Cardiology 02/29/24 documented as of this encounter
--- OUTSIDE RECORDS SUMMARY | 2024-08-31 15:01 | XMS_ITS | Encounter Summary ---
Author Organization [facility] Address [address] [facility] [place] [address] Care Team Providers Care Service Developer Name Role Phone Keisha Chavez MD Primary Care Provider [phone] Brett Velásquez MD Primary Care Provider Reilly Stewart MD, PHD Unavailable Un[facility]verton hospitalBrett Bailon MD Primary Care Provider Wayne Dickson Primary Care Provider [phone] Dafne Hilton MD Unavailable [phone] Desi Swenson NP Unavailable [phone] Encounter Details Date Type Department Care Team Description 10/25/2015 School Year Nanny Report Medical Records [address] [place] [address] Aleksandar Huggins MD Social History Tobacco Use Types Packs/Day Years Used Date Smoking Tobacco: Never Smokeless Tobacco: Never Alcohol Use Standard Drinks/Week Comments No 0 (1 standard drink = 0.6 oz pur e alcohol) Sex Assigned at Date Recorded Not on file Job Start Date Occupation Industry Not on file Not on file Not on file documented as of this encounter Plan of Treatment Upcoming Encounters Date Type Specialty Care Team Description 04/29/2027 School Year Nanny Report Abstract, Provider documented as of this encounter Visit Diagnoses Not on filedocumented in this encounter Care Teams Service Developer Relationship Specialty Start Date End Date Keisha Chavez MD [address] [place] [address] PCP - General Internal Medicine 06/20/15 04/20/16 Brett Velásquez MD [address] [place] [address] PCP - General Internal Medicine 04/21/16 01/25/22 Brett Velásquez MD [address] [place] [address] PCP - General Internal Medicine 01/26/22 02/15/22 Wayne Jaimes [address] [place] [address] PCP - General Internal Medicine 02/16/22 Reilly Baker MD, PHD [address] [place] [address] Surgeon Neurosurgery 01/20/22 Dafne Hilton MD [address] [place] [address] Specialist Cardiology 10/13/22 Desi Swenson NP [address] [place] [address] Cardiology 02/29/24 documented as of this encounter
--- OUTSIDE RECORDS SUMMARY | 2024-08-31 15:01 | XMS_ITS | Encounter Summary ---
Author Organization [facility] Address [address] [place] [address] Care Team Providers Care Locker Room Attendant Name Role Phone Reilly Baker MD, PHD Unavailable Unava Wayne Blackman Primary Care Provider [phone] Dafne Hilton MD Unavailable [phone] Desi Swenson NP Unavailable [phone] Encounter Details Date Type Department Care Team Description 04/07/2022 SCAN Medical Records [address] [place] [address] Abstract, Provider Social History Tobacco Use Types Packs/Day Years [...] suspected to have Coronavirus/COVID-19? No / Unsure 04/07/2022 7:47 AM EDT documented as of this encounter Plan of Treatment Upcoming Encounters Date Type Specialty Care Team Description 04/29/2027 Radio Sales Account Executive Report Abstract, Provider documented as of this encounter Procedures Procedure Name Priority Date/Time Associated Diagnosis Comments OUTSIDE LAB Routine 04/07/2022 documented in this encounter Results * OUTSIDE LAB (04/07/2022) Provider Default LAB documented in this encounter Visit Diagnoses Not on filedocumented in this encounter Care Teams Locker Room Attendant Relationship Specialty Start Date End Date Wayne Jaimes [address] [place] [address] PCP - General Internal Medicine 02/16/22 Reilly Baker MD, PHD Surgeon Neurosurgery 01/20/22 Dafne Hilton MD [address] [place] [address] Specialist Cardiology 10/13/22 Desi Swenson NP [address] [place] [address] Cardiology 02/29/24 documented as of this encounter
--- OUTSIDE RECORDS SUMMARY | 2024-08-31 15:01 | XMS_ITS | Encounter Summary ---
Author Organization [facility] Address [address] [place] [address] Care Team Providers Care Sweet Dough Mixer Name Role Phone Reilly Baker MD, PHD Unavailable Unava ilable Wayne Jaimes Primary Care Provider [phone] Dafne Hilton MD Unavailable [phone] Desi Swenson NP Unavailable [phone] Encounter Details Date Type Department Care Team Description 04/19/2022 X Ray Operator Report Medical Records [address] [place] [address] Anikta Mckeon NP Social History Tobacco Use Types Packs/Day Years [...] suspected to have Coronavirus/COVID-19? No / Unsure 04/16/2022 11:51 AM EDT documented as of this encounter Plan of Treatment Upcoming Encounters Date Type Specialty Care Team Description 04/29/2027 X Ray Operator Report Abstract, Provider documented as of this encounter Visit Diagnoses Not on filedocumented in this encounter Care Teams Sweet Dough Mixer Relationship Specialty Start Date End Date Wayne Jaimes [address] [place] [address] PCP - General Internal Medicine 02/16/22 Reilly Baker MD, PHD Surgeon Neurosurgery 01/20/22 Dafne Hilton MD [address] [place] [address] Specialist Cardiology 10/13/22 Desi Swenson NP [address] [place], [place] [id number] Cardiology 02/29/24 documented as of this encounter
--- OUTSIDE RECORDS SUMMARY | 2024-08-31 15:01 | XMS_ITS | Encounter Summary ---
Author Organization [facility] Address [address] [place] [address] Care Team Providers Care Architectural Superintendent Name Role Phone Brett Velásquez MD Primary Care Provider Keisha Luna MD Primary Care Provider [phone] Brett Velásquez MD Primary Care Provider Reilly Stewart MD, PHD Unavailable Unava ilBrett Bailon MD Primary Care Provider Wayne Dickson Primary Care Provider [phone] Dafne Hilton MD Unavailable [phone] Desi Swenson NP Unavailable [phone] Encounter Details Date Type Department Care Team Description 03/27/2015 Business Analyst Report Medical Records [address] [place] [address] Vitor Mclean MD [address] [place] [id number] Social History Tobacco Use Types Packs/Day Years [...] Date Type Specialty Care Team Description 04/29/2027 Business Analyst Report Abstract, Provider documented as of this encounter Visit Diagnoses Not on filedocumented in this encounter Care Teams Architectural Superintendent Relationship Specialty Start Date End Date Brett Velásquez MD PCP - General Internal Medicine 10/29/11 06/19/15 Keisha Chavez MD [address] [place] [address] PCP - General Internal Medicine 06/20/15 04/20/16 Brett Velásquez MD PCP - General Internal Medicine 04/21/16 01/25/22 Brett Velásquez MD PCP - General Internal Medicine 01/26/22 02/15/22 Wayne Jaimes [address] [place] [address] PCP - General Internal Medicine 02/16/22 Reilly Baker MD, PHD [address] [place] [address] Surgeon Neurosurgery 01/20/22 Dafne Hilton MD [address] [place] [address] Specialist Cardiology 10/13/22 Desi Swenson NP [address] [place] [address] Cardiology 02/29/24 documented as of this encounter
--- OUTSIDE RECORDS SUMMARY | 2024-08-31 15:01 | XMS_ITS | Encounter Summary ---
Author Organization [facility] Address [address] [place] [address] Care Team Providers Care Health Safety Engineer Name Role Phone Brett Velásquez MD Primary Care Provider Keisha Luna MD Primary Care Provider [phone] Brett Velásquez MD Primary Care Provider Reilly Stewart MD, PHD Unavailable Unava ilBrett Bailon MD Primary Care Provider Wayne Dickson Primary Care Provider [phone] Dafne Hilton MD Unavailable [phone] Desi Swenson NP Unavailable [phone] Encounter Details Date Type Department Care Team Description 02/06/2015 Line Servicer Report Medical Records [address] [place] [address] [facility] [address] [place] [address] Social History Tobacco Use Types Packs/Day Years [...] Date Type Specialty Care Team Description 04/29/2027 Line Servicer Report Abstract, Provider documented as of this encounter Visit Diagnoses Not on filedocumented in this encounter Care Teams Health Safety Engineer Relationship Specialty Start Date End Date Brett Velásquez MD PCP - General Internal Medicine 10/29/11 06/19/15 Keisha Chavez MD [address] [place], [place] [id number] PCP - General Internal Medicine 06/20/15 04/20/16 Brett Velásquez MD PCP - General Internal Medicine 04/21/16 01/25/22 Brett Velásquez MD PCP - General Internal Medicine 01/26/22 02/15/22 Wayne Jaimes [address] [place] [address] PCP - General Internal Medicine 02/16/22 Reilly Baker MD, PHD [address] [place] [address] Surgeon Neurosurgery 01/20/22 Dafne Hilton MD [address] [place] [address] Specialist Cardiology 10/13/22 Desi Swenson NP [address] [place] [address] Cardiology 02/29/24 documented as of this encounter
--- OUTSIDE RECORDS SUMMARY | 2024-08-31 15:01 | XMS_ITS | Encounter Summary ---
Author Organization [facility] Address [address] [place] [address] Care Team Providers Care Inward Toll Operator Name Role Phone Brett Velásquez MD Primary Care Provider Keisha Luna MD Primary Care Provider [phone] Brett Velásquez MD Primary Care Provider Reilly Stewart MD, PHD Unavailable Unava ilable Brett Velásquez MD Primary Care Provider Wayne Dickson Primary Care Provider [phone] Dafne Hilton MD Unavailable [phone] Desi Swenson NP Unavailable [phone] Encounter Details Date Type Department Care Team Description 10/05/2011 Hospital Medical Records [address] [place] [address] Manuel White MD Social History Tobacco Use Types Packs/Day [...] Date Type Specialty Care Team Description 04/29/2027 Shellfish Bed Worker Report Abstract, Provider documented as of this encounter Visit Diagnoses Not on filedocumented in this encounter Care Teams Inward Toll Operator Relationship Specialty Start Date End Date Brett Velásquez MD PCP - General Internal Medicine 10/29/11 06/19/15 Keisha Chavez MD [address] [place] [address] PCP - General Internal Medicine 06/20/15 04/20/16 Brett Velásquez MD PCP - General Internal Medicine 04/21/16 01/25/22 Brett Velásquez MD PCP - General Internal Medicine 01/26/22 02/15/22 Wayne Jaimes [address] [place] [address] PCP - General Internal Medicine 02/16/22 Reilly Baker MD, PHD [address] [place] [address] Surgeon Neurosurgery 01/20/22 Dafne Hilton MD [address] [place] [address] Specialist Cardiology 10/13/22 Desi Swenson NP [address] [place] [address] Cardiology 02/29/24 documented as of this encounter
--- OUTSIDE RECORDS SUMMARY | 2024-08-31 15:01 | XMS_ITS | Encounter Summary ---
Author Organization [facility] Address [address] [facility] [place] [address] Care Team Providers Care Junior Sales Assistant Name Role Phone Keisha Chavez MD Primary Care Provider [phone] Brett Velásquez MD Primary Care Provider Reilly Stewart MD, PHD Unavailable Unanm ilBrett Bailon MD Primary Care Provider Wayne Dickson Primary Care Provider [phone] Dafne Hilton MD Unavailable [phone] Desi Swenson NP Unavailable [phone] Encounter Details Date Type Department Care Team Description 11/18/2015 Release of Information Medical Records [address] [place] [id number] Abstract, Provider Social History Tobacco Use Types [...] Date Type Specialty Care Team Description 04/29/2027 Estimator Project Manager Report Abstract, Provider documented as of this encounter Visit Diagnoses Not on filedocumented in this encounter Care Teams Junior Sales Assistant Relationship Specialty Start Date End Date Keisha Chavez MD [address] [place] [address] PCP - General Internal Medicine 06/20/15 04/20/16 Brett Velásquez MD [address] [place] [address] PCP - General Internal Medicine 04/21/16 01/25/22 Brett Velásquez MD [address] [place] [address] PCP - General Internal Medicine 01/26/22 02/15/22 Wayne Jaimes [address] [place] [address] PCP - General Internal Medicine 02/16/22 Reilly Baker MD, PHD [address] [place] [address] Surgeon Neurosurgery 01/20/22 Dafne Hilton MD [address] [place] [address] Specialist Cardiology 10/13/22 Desi Swenson NP [address] [place] [address] Cardiology 02/29/24 documented as of this encounter
--- OUTSIDE RECORDS SUMMARY | 2024-08-31 15:01 | XMS_ITS | Encounter Summary ---
Author Organization [facility] Address [address] [place] [address] Care Team Providers Care Welding Equipment Repairer Name Role Phone Brett Velásquez MD Primary Care Provider Reilly Stewart MD, PHD Unavailable Brett España MD Primary Care Provider Wayne Dickson Primary Care Provider [phone] Dafne Hilton MD Unavailable [phone] Desi Swenson NP Unavailable [phone] Encounter Details Date Type Department Care Team Description 01/24/2020 Pt. Non Urgent Medical Question Adult Medicine [address] [address] Olivia Foster PA-C [address] [place] [address] Social History Tobacco Use Types Packs/Day Years Used Date Smoking Tobacco: Never Smokeless Tobacco: Never Alcohol Use Standard Drinks/Week Comments No 0 (1 standard drink = 0.6 oz pur e alcohol) Sex Assigned at Date Recorded Not on file Job Start Date Occupation Industry Not on file Not on file Not on file documented as of this encounter Progress Notes * Jimena Martinez M.A. - 01/25/2020 9:04 AM EDTFrom: Laina Lewis To: Olivia Foster PA-C Sent: 01/24/2020 8:58 PM EDT Subject: follow up after surgery I had a surgery on thyroid on Jul.17. I tested a blood test. you told to see me after surgery follow up after 6months . I could not make an appointment. I ultrasound tested other side of thyroid. That result different with ultrasound testing result. How can I make an appointment to see you? documented in this encounter Plan of Treatment Upcoming Encounters Date Type Specialty Care Team Description 04/29/2027 Irrigation Supervisor Report Abstract, Provider documented as of this encounter Visit Diagnoses Not on filedocumented in this encounter Care Teams Welding Equipment Repairer Relationship Specialty Start Date End Date Brett Velásquez MD PCP - General Internal Medicine 04/21/16 01/25/22 Brett Velásquez MD PCP - General Internal Medicine 01/26/22 02/15/22 Wayne Jaimes [address] [place] [address] PCP - General Internal Medicine 02/16/22 Reilly Baker MD, PHD Surgeon Neurosurgery 01/20/22 Dafne Hilton MD [address] [place] [address] Specialist Cardiology 10/13/22 Desi Swenson NP [address] [place] [address] Cardiology 02/29/24 documented as of this encounter
--- OUTSIDE RECORDS SUMMARY | 2024-08-31 15:01 | XMS_ITS | Data Portability ---
Author Organization [place] - [facility], Allergy Address [address] [address] Care Team Providers Care Parallel Computing Software Engineer Name Role Phone SUMMER LOWE Primary Care Provider [phone] Assessment Encounter Date Assessment Date Assessment LastModified [...] Time Details Appointments Establi shed 30 2024 02:30P M ENEIDA Desouza MD Not available Not available Not available Lab None trevin peraza Referral speech therapy referra l 2024 025 [email or web address] [facility], [address] [place] [address] [place], [address], 08/11/2024 11:57:42 speech therapy referra l - Appt 05/26 @ 8:30am 2023 024 [facility], [facility] [place], [address], 05/01/2024 16:23:00 Procedures None recorde d. Surgeries None recorde d. Imaging None recorde d. Medication Orders famotid ine 20 mg tablet 2024 025 [facility] [address] [place] [address], [id number], 08/10/2024 15:05:18 nystati n 100,000 unit/mL oral suspens ion 2023 024 [facility], [address] [place] [address], [id number], 05/10/2024 16:22:57 nystati n 100,000 unit/mL oral suspens ion 2023 024 [facility] [address] [place] [address], [id number], 04/21/2024 14:42:09 Patient TargetsNo targets recorded. Patient InstructionsNo instructions recorded. Reason for Referral Appt 05/26 @ 8:30am Referring Physician: Eneida Mccall Otolaryngology, Encounter Date: 04/21/2024 Referring Physician: Eneida Mccall Otolaryngology, Encounter Date: 08/10/2024 Problems Name Problem SNOMED Code Status Onset Date Resolution Date Notes Provider Name and Address Organization Details Recorded Time Sensorine ural hearing loss of bilateral ears 839789888 Active 2019 Sensorine ural hearing loss, bilateral ; Note: Date Diagnosed : 02/26/2020 3:32 PM (H90.3) Note: Date Diagnosed : 02/26/2020 3:32 PM (H90.3) Not Available [facility] 00:53:14 Stomatiti s 81621368 Active 2020 Oral thrush; Note: Date Diagnosed : 04/14/2021 11:22 AM (B37.0) Not Available [facility] 4 02:18:55 Candidias is of mouth 87613828 Active 2020 Oral thrush; Note: Date Diagnosed : 04/14/2021 11:22 AM (B37.0) Not Available [facility] 4 02:18:55 Gastroeso phageal reflux disease without esophagit is 534633241 Active 2015 Gastro-es ophageal reflux disease without esophagit is; Note: Date Diagnosed : 07/22/2015 2:46 PM (K21.9) Not Available [facility] 4 02:19:18 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, unilatera l; Note: Date Diagnosed : 12/12/2019 3:31 PM (J38.01) Not Available [facility] 4 02:18:19 Dysphagia 89500446 Active 2022 Dysphagia , unspecifi ed; Note: Date Diagnosed : 10/27/2021 12:05 PM (R13.10) ; Start Date : 2 Other dysphagia ; Note: Date Diagnosed : 04/07/2023 1:44 PM (R13.19) Not Available [facility] 4 02:19:19 Benign paroxysma l positiona l vertigo 075322973 Active 2019 Benign paroxysma l vertigo, left ear; Note: Date Diagnosed : 02/26/2020 3:32 PM (H81.12) Not Available [facility] 4 02:18:20 Cough 51293384 Active 2015 Cough, unspecifi ed; Note: Changed from R05 to R05.9 ( 2 2:10 PM) , Date Diagnosed : 09/04/2015 3:10 PM (R05) Not Available [facility] 4 02:19:08 Oropharyn geal dysphagia 23309296 Active 2023 Dysphagia , oropharyn geal phase; Note: Date Diagnosed : 09/16/2023 1:19 PM (R13.12) Not Available [facility] 02:19:08 Hemoptysi s 09611880 Active 2023 ENEIDA MCCALL MD [address] [facility],[place] [address], [facility] [place], [address] , [place] - [facility] 14:33:59 Chronic sore throat 647627285 Active 2023 ENEIDA MCCALL MD [address] [place] [address],[place] [address], [facility] [place], [address] , [place] - [facility] 14:34:04 Chronic hoarsenes s 70054982403 05 Active 2023 ENEIDA MCCALL MD [address] [place] [address],[place] [address], [facility] [place], [address] , [facility] - [facility] 14:42:59 Problem Notes None recorded. Procedures Surgical History Date Name Laterality Status Provider Name and Address Organization Details Recorded Time 08/10/19 25 FFL_RE completed ENEIDA MCCALL MD [address] [place] [address],[place] [address], [place], [address], [place] - [facility] 08/10/2024 15:02:15 04/21/20 24 FFL_RE completed ENEIDA MCCALL MD [address] [place] [address],[place] [address], [place], [address], [facility] - [facility] 04/21/2024 14:41:39 transurethral prostatectomy completed Biib Neal [place] - [facility] 05/10/2024 14:05:40 subtotal thyroidectomy completed Bibi Neal [place] - [facility] 05/10/2024 14:05:53 Imaging Results None recorded. Procedure Notes None recorded. Medical Equipment None Reported. Allergies No known drug allergies Medications Name Sig Start Date Stop Date Status Note LastModified by Organization Details LastModified Time losartan 50 mg tablet 05/06 completed Medicati on ID: [id number] B rand Name: losartan Send Method: E-Prescr ibed Sub s Allowed: subs OK Medic ationGen ericName : losartan Not Available Not Available Not Available atorvasta tin 40 mg tablet TAKE 1 TABLET BY MOUTH ONCE DAILY active Not Available Not Available No t Available atorvasta tin 80 mg tablet TAKE [...] gram tablet 05/06 completed Medicati on ID: [id number] D uration Value: 7 Brand Name: valacycl ovir Sen d Method: E-Prescr ibed Sub s Allowed: subs OK Medic ationGen ericName : valacycl ovir Not Available Not Available Not Available sucralfat e 100 mg/mL oral suspensio n TAKE 10 ML BY MOUTH 4 TIMES DAILY 05/06 completed Not Available Not Available Not Available sucralfat e 1 gram tablet TAKE 1 TABLET BY MOUTH ONCE DAILY AT NOON active Not Available Not Available No t Available betametha sone, augmented 0.05 % topical cream SPARINGL Y APPLY CREAM TOPICALL Y TO RASH ON BACK AND LEGS TWICE DAILY FOR 1 TO 2 WEEKS, AND THEN TAKE A ONE WEEK BREAK. REPEAT IF NEEDED active Not Available Not Available No t Available lidocaine HCl 2 % mucosal jelly 05/10 completed Medicati on ID: [id number] D uration Value: 14 Brand Name: lidocain [...] APPLY 1 GRAM OF CREAM TOPICALL Y TWICE DAILY FOR 30 DAYS active Not Available Not Available No t Available famotidin e 20 mg tablet TAKE 1 TABLET BY MOUTH TWICE DAILY active Not Available Not Available No t Available tamsulosi n 0.4 mg capsule 05/06 completed Medicati on ID: [id number] D uration Value: 90 Brand Name: tamsulos in Send Method: E-Prescr ibed Sub s Allowed: subs OK Speci al Instruct ion: TAKE ONE CAPSULE DAILY Me dication GenericN jay: tamsulos in Not Available Not Available Not Available pantopraz ole 40 mg tablet,de layed release 07/12 completed Medicati on ID: [id number] D uration Value: 30 Brand Name: pantopra [...] by mouth 07/12 completed Medicati on ID: [id number] D uration Value: 30 Prescri bed By [...] oral powder 05/10 completed Medicati on ID: [id number] D uration Value: 30 Brand Name: polyethy [...] layed release 12/11 completed Medicati on ID: [id number] P devonte d By Name: Trevon Gee rd, nd Name: omeprazo le Send Method: E-Prescr ibed Sub s Allowed: subs OK Speci al Instruct ion: Take 1 tablet by mouth every day before bed Medi cationGe nericNam e: omeprazo le Not Available Not Available Not Available diclofena c 1 % topical gel APPLY 4 GRAMS TOPICALL Y 4 TIMES DAILY IF NEEDED FOR PAIN OR SWELLING active Not Available Not Available No t Available Brilinta 90 mg tablet TAKE 1 TABLET BY MOUTH TWICE DAILY 05/06 completed Not Available Not Available Not Available Myrbetriq 50 mg tablet,ex tended release TAKE 1 TABLET BY MOUTH ONCE DAILY DIRECTED active Not Available Not Available No t Available Linzess 145 mcg capsule TAKE 1 CAPSULE BY MOUTH ONCE DAILY IN THE MORNING. TAKE FIRST THING IN THE MORNING WITH A FULL GLASS OF WATER active Not Available Not Available No t Available Breo Ellipta 100 mcg-25 mcg/dose powder for inhalatio n INHALE 1 PUFF BY MOUTH ONCE DAILY active Not Available Not Available No t Available Jublia 10 % topical solution with applicato r APPLY 1 APPLICAT ION TOPICALL Y TO AFFECTED AREA ONCE DAILY active Not Available Not Available No t Available Flonase Allergy Relief 50 mcg/actua tion nasal spray,reinaldo pension 2 puff into both nostrils 10/17 completed Medicati on ID: [id number] P rescribe d By Name: Trevon Gee rd, nd Name: Flonase Allergy Relief S end Method: E-Prescr ibed Sub s Allowed: subs OK Medic ationGen ericName : Flonase Allergy Relief Not Available Not Available Not Available Vitals Date Recorded Body height Body mass index (BMI) Body weight Provider Name and Address Organization Details Last Updated DateTime 04/21/2024 167.64 cm 27 kg/m2 91589.93 g Aakash Weaver [place] - [facility] 04/21/2024 14:00:43 Date Recorded Body height Body weight Provider Name and Address Organization Details Last Updated DateTime 05/10/2024 167.64 cm 10353.93 g Bibi Neal [place] - [facility] 05/10/2024 14:01:54 Date Recorded Body height Provider Name an d Address Organization Details Last Updated DateTime 08/10/2024 167.64 cm Aakash Weaver [facility] 08/10/2024 14:29:36 Social History None recorded. Functional Status None recorded. Mental Status None recorded. Family History Nothing Reported. Medical History Condition Response Sleep Disorder Y GERD/Reflux Y Hypertension Y Past Encounters Encounter ID Performer Location Encounter Start Date Encounter Closed Date Diagnosis/Indication Diagnosis SNOMED-CT Code Diagnosis ICD10 Code Diagnosis Note [id number] ENEIDA MCCALL MD [facility] [address] [address] 04/21/2024 13:44:06 04/21/2024 15:41:33 Hemoptysis 78307566 R04.2 resolved. laryngosco py negative today for bleeding Chronic sore throat 2754 90657 J31.2 likely due to thrush. Gastroesop hageal reflux disease without esophagitis 320509072 K21.9 continue esomeprazo le Candidiasis of mouth 797 32006 B37.0 FFL notable for montez in base of tongue. LIkely secondary to steroid inhalers. Will treat with nystatin. I asked him to call if not improved. No tumors on laryngosoc py. Chronic hoarseness 12832 72728 105 R49.0 will make voice therapy referral to [facility] [id number] VELASQUEZ GONZALEZ MD [facility] [address] [place] [address] 05/10/2024 13:45:35 05/10/2024 15:10:38 Candidiasis of mouth 65813980 B37.0 Chronic hoarseness 82687 77035 105 R49.0 Chronic sore throat 2754 04960 J31.2 Gastroesop hageal reflux disease without esophagitis 519784530 K21.9 [id number] ENEIDA MCCALL MD [facility] [address] [place] [address] 08/10/2024 13:56:29 08/10/2024 15:05:58 Chronic sore throat 941276489 J31.2 no evidence of thrush. he has breakthrou gh heartburn and I think the soreness is due to LPR. I will add dual therapy for reflux with famotidine in addition to his PPI. Gastroesop hageal reflux disease without esophagitis 848347333 K21.9 begin dual thearpy Candidiasis of mouth 797 08727 B37.0 resolved Chronic hoarseness 46006 26899 105 R49.0 will make voice therapy referral to [facility] since he could not be seen at [facility], gave reassuranc e no vocal cord lesions. Health Concerns Section Related Observation LastModified by Organization Detai ls LastModified Time None Recorded Concern Status LastModified by Organization Details LastModified Time None Recorded Advance Directives Directive None Recorded Payers Encounter Date Sequence Insurance Name Policy Number Policy Ayala Covered Member ID Ayala Member ID Guarantor Name 04/21/2024 1 [facility] Laina Lewis [id number] Laina Lewis 05/10/2024 1 [facility] Laina Lewis [id number] Laina Lewis 08/10/2024 1 [facility] Laina Lewis [id number] Laina Lewis Notes Date Note Type Note [...] in September 2020. ENEIDA MCCALL MD 100 [facility] [address], [address], [place] - [facility] 04/21/2024 14:43:45 05/10/2024 text/html 68-year-old male [...] [place]. Normal MBS. VELASQUEZ QUINTERO MD 100 [facility] [address], [address], [place] - [facility] 05/11/2024 12:34:14 08/10/2024 text/html He has a history of hemoptysis which resolved. He has been evaluated by us for laryngoscopy and montez was noted and was treated twice for this with minimal benfit. He continues to have some throat pain and hoarseness. I referred for voice therapy but due to availablity he was not able to be seen. Had an MBS 08/2023 which did not show aspiration. He does not smoke. He is on a different PPI for GERD for the last year. he still has breakthrough heartburn. He is also on sulcralfate. 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 VC paralysisresolved on last FOL in September 2020. ENEIDA MCCALL MD [address] [place] [address], [place], [address], [place] - [facility] 08/10/2024 15:05:10
--- OUTSIDE RECORDS SUMMARY | 2024-08-31 15:01 | XMS_ITS | Encounter Summary ---
Author Organization [facility] Address [address] [place] [address] Care Team Providers Care Hand Stripper Name Role Phone Brett Velásquez MD Primary Care Provider Reilly Stewart MD, PHD Unavailable Unava Brett Villegas MD Primary Care Provider Wayne Dickson Primary Care Provider [phone] Dafne Hilton MD Unavailable [phone] Desi Swenson NP Unavailable [phone] Encounter Details Date Type Department Care Team Description 01/23/2020 Orders Only Medical Records [address] [place] [address] Vladislav Antunez DO Social History Tobacco Use Types Packs/Day Years [...] Date Type Specialty Care Team Description 04/29/2027 Yardage Control Operator Forming Report Abstract, Provider documented as of this encounter Procedures Procedure Name Priority Date/Time Associated Diagnosis Comments OUTSIDE LAB Routine 01/22/2020 documented in this encounter Results * OUTSIDE LAB (01/22/2020) Vladislav Antunez DO LAB documented in this encounter Visit Diagnoses Not on filedocumented in this encounter Care Teams Hand Stripper Relationship Specialty Start Date End Date Brett Velásquez MD PCP - General Internal Medicine 04/21/16 01/25/22 Brett Velásquez MD PCP - General Internal Medicine 01/26/22 02/15/22 Wayne Jaimes [address] [place] [address] PCP - General Internal Medicine 02/16/22 Reilly Baker MD, PHD Surgeon Neurosurgery 01/20/22 Dafne Hilton MD [address] [place] [address] Specialist Cardiology 10/13/22 Desi Swenson NP [address] [place] [address] Cardiology 02/29/24 documented as of this encounter
--- OUTSIDE RECORDS SUMMARY | 2024-08-31 15:01 | XMS_ITS | Clinical Summary ---
Author Organization [facility] Address 100 [facility] [address] [place] [address] Phone Care Team Providers Care Relay Associate Name Role Phone Shelbie Upton MD Primary Care Provider [phone] Allergies No known active allergies Medications albuterol HFA (PROVENTIL HFA;VENTOLIN HFA) 108 (90 Base) MCG/ACT inhaler Inhale 2 puffs every 6 (six) hours if needed Active lidocaine (XYLOCAINE) 5 % ointment Apply topically if needed Active meclizine (ANTIVERT) 12.5 MG tablet Take 12.5 mg by mouth 3 (three) times a day if needed 1 Active omeprazole (PriLOSEC) [address] capsule Take 1 capsule by mouth 1 (one) time each day Active sucralfate (CARAFATE) 1 GM/10ML suspension Take 1 g by mouth in the morning and 1 g at noon and 1 g in the evening and 1 g before bedtime. Active Efinaconazole (Jublia) 10 % solution Apply topically Active gabapentin (NEURONTIN) 300 MG capsule Take 300 mg by mouth in the morning and 300 mg in the evening and 300 mg before bedtime. Active losartan (COZAAR) 25 MG tablet Take 1 tablet (25 mg total) by mouth 1 (one) time each day 90 tablet 3 4 04/28/20 25 Active Active Problems Problem Noted Date Diagnosed Date Low blood pressure 02/03/2024 High glucose level in blood 11/07/2020 Multiple renal cysts 05/08/2020 Overview (02/03/2024): Right renal cysts seen on CT scan 04/2020. Too small to characterize. History of subtotal thyroidectomy 04/09/2020 Overview (02/03/2024): Dr. Salamanca 2019 Liver enzymes level above reference range 2019 Bilateral partial vocal cord paralysis 0 History of transurethral prostatectomy 0 Constipation 01/26/2020 Headache 01/26/2020 Vertigo 01/26/2020 History of thyroidectomy 08/03/2019 Thyroid nodule 06/29/2019 Overview (02/03/2024): Pathology suspeciosu for hurtle cell neoplasm History of adenomatous polyp of colon 02/14/2019 Overview (02/03/2024): two rectal polyps. Repeat 5 years. Allergic rhinitis due to pollen 09/20/2018 Nocturia due to benign prostatic hypertrophy 02/2018 Overview (02/03/2024): Seeing Dr. Huggins yearly Herpes zoster without complication 10/15/2017 Lumbar disc prolapse with radiculopathy 12/11/19 17 Osteoarthritis 12/10/2016 Overview (02/03/2024): Thoracic, & Lumbosacral Spine, Knees, Big Toe Esophageal reflux 11/28/2014 Mild tricuspid valve regurgitation 10/18/2014 Proteinuria 09/27/2014 Overview (02/03/2024): Sees Dr. Mccormick Microscopic hematuria 07/13/2013 Overview (02/03/2024): negative urological workup. Dr. Huggins Gout 12/17/2011 Overview (02/03/2024): Possible diagnosis Family History Medical History Relation Comments Hypertension Father Stroke Father Cancer Mother Heart disease Mother Hypertension Sibling 1 Diabetes Sibling 2 Kidney disease Sibling 3 Cancer Sibling 4 Relation Status Comments Father Mother Sibling 1 Sibling 2 Sibling 3 Sibling 4 Social History Tobacco Use Types Packs/Day Years Used Date Smoking Tobacco: Never Smokeless Tobacco: Never Tobacco Cessation:Counseling Given: No Alcohol Use Standard Drinks/Week Comments No 0 (1 standard drink = 0.6 oz pur e alcohol) Sex and Gender Information Value Date Recorded Sex Assigned at Not on file Legal Sex Male 4:49 PM EST Gender Identity Not on file Sexual Orientation Not on file Last Filed Vital Signs Vital Sign Reading Time Taken Comments Blood Pressure 115/70 02/04/2024 10:56 AM EDT Pulse 64 02/04/2024 10:56 AM EDT Temperature - - Respiratory Rate - - Oxygen Saturation - - Inhaled Oxygen Concentration - - Weight 64.6 kg (142 lb 6.4 oz) 02/04/2024 10:56 AM EDT Height - - Body Mass Index - - Plan of Treatment Upcoming Encounters Date Type Department Care Team (Late st Contact Info) Description 02/01/2025 3:00 PM EDT Office [facility] [address] [place] [phone] Eduard Mccormick MD [address] [phone] Health Maintenance Due Date Last Done Comments Colorectal Cancer Screening: Annual FOBT 2002 Colorectal Cancer Screening: Colonoscopy 2002 Colorectal Cancer Screening: Sigmoidoscopy 2002 Influenza Vaccine (#1) 2024 3, 04/20/2022, 04/08/2021, Additional history exists Pneumococcal Vaccine: 65+ Years Completed 04/09/2020, 04/28/2019 Hepatitis B Vaccine Aged Out No longe r eligible based on patient's age to complete this topic Insurance [place] [facility] DUAL COMPLETE ([id number]) ANDREI KHAN [id number] [facility] DUAL COMPLETE ([id number]) MEDICAID [place] Care Teams Relay Associate Relationship Specialty Start Date End Date Shelbie Upton MD NPI: [id number] [place] [address], [address] [place] [address] PCP - General Internal Medicine 02/04/24
--- OUTSIDE RECORDS SUMMARY | 2024-08-31 15:01 | XMS_ITS | Encounter Summary ---
Author Organization [facility] Address [address] [place] [address] Care Team Providers Care Radiologic Tech Name Role Phone Brett Velásquez MD Primary Care Provider Reilly Stewart MD, PHD Unavailable Unava ilBrett Bailon MD Primary Care Provider Wayne Dickson Primary Care Provider [phone] Dafne Hilton MD Unavailable [phone] Desi Swenson NP Unavailable [phone] Encounter Details Date Type Department Care Team Description 01/23/2020 [facility] Medical Records [address] [place] [id number] Vladislav Antunez DO Social History Tobacco Use [...] Date Type Specialty Care Team Description 04/29/2027 Typesetters Printer Report Abstract, Provider documented as of this encounter Visit Diagnoses Not on filedocumented in this encounter Care Teams Radiologic Tech Relationship Specialty Start Date End Date Brett Velásquez MD PCP - General Internal Medicine 04/21/16 01/25/22 Brett Velásquez MD PCP - General Internal Medicine 01/26/22 02/15/22 Wayne Jaimes [address] [place] [address] PCP - General Internal Medicine 02/16/22 Reilly Baker MD, PHD Surgeon Neurosurgery 01/20/22 Dafne Hilton MD [address] [place] [address] Specialist Cardiology 10/13/22 Desi Swenson NP [address] [place] [address] Cardiology 02/29/24 documented as of this encounter
--- OUTSIDE RECORDS SUMMARY | 2024-08-31 15:01 | XMS_ITS | Encounter Summary ---
Author Organization [facility] Address [address] [place] [address] Care Team Providers Care Pre Press Proofer Name Role Phone Brett Velásquez MD Primary Care Provider Keisha Luna MD Primary Care Provider [phone] Brett Velásquez MD Primary Care Provider Reilly Stewart MD, PHD Unavailable Unava ilBrett Bailon MD Primary Care Provider Wayne Dickson Primary Care Provider [phone] Dafne Hilton MD Unavailable [phone] Desi Swenson NP Unavailable [phone] Encounter Details Date Type Department Care Team Description 04/24/2015 Timber Robber Report Medical Records [address] [place] [address] Vitor Mclean MD [address] [place] [phone] Social History Tobacco Use Types Packs/Day [...] Date Type Specialty Care Team Description 04/29/2027 Timber Robber Report Abstract, Provider documented as of this encounter Visit Diagnoses Not on filedocumented in this encounter Care Teams Pre Press Proofer Relationship Specialty Start Date End Date Brett Velásquez MD PCP - General Internal Medicine 10/29/11 06/19/15 Keisha Chavez MD [address] [place] [address] PCP - General Internal Medicine 06/20/15 04/20/16 Brett Velásquez MD PCP - General Internal Medicine 04/21/16 01/25/22 Brett Velásquez MD PCP - General Internal Medicine 01/26/22 02/15/22 Wayne Jaimes [address] [place] [address] PCP - General Internal Medicine 02/16/22 Reilly Baker MD, PHD [address] [place] [address] Surgeon Neurosurgery 01/20/22 Dafne Hilton MD [address] [place] [address] Specialist Cardiology 10/13/22 Desi Swenson NP [address] [place] [address] Cardiology 02/29/24 documented as of this encounter
--- OUTSIDE RECORDS SUMMARY | 2024-08-31 15:01 | XMS_ITS | Clinical Summary ---
Author Organization 175 [facility] Address [address] [place] [address] Phone Care Team Providers Care Manager Pmo Name Role Phone Wayne Jaimes MD Primary Care Provider Allergies No known active allergies Medications bisacodyL (Dulcolax, bisacodyl,) 5 mg EC tablet Take 2 tabs at 6pm as directed. 08/26/19 24 Active clobetasoL (TEMOVATE) 0.05 % cream Apply to affected areas twice daily x 2 weeks then sparingly as needed . 07/09/20 21 Active clotrimazole-betam ethasone (LOTRISONE) 1-0.05 % cream Apply 1 applicator topically. 01/09/20 23 Active docusate sodium (COLACE) 100 mg capsule Take 1 capsule (100 mg total) by mouth 2 (two) times a day. 11/04/19 22 Active aspirin 81 mg EC tablet Take 1 tablet (81 mg total) by mouth 1 (one) time each day. 06/11/20 23 Active esomeprazole (NexIUM) [address] capsule Take 1 capsule (40 mg total) by mouth. 02/19/20 23 Active lidocaine-prilocai ne (EMLA) 2.5-2.5 % cream APPLY ONE GRAM OF CREAM TOPICALLY TO THE RIGHT AND LEFT FOOT TWICE DAILY DIRECTED FOR 30 DAYS 07/21/19 24 Active losartan (COZAAR) 25 mg tablet Take 1 tablet (25 mg total) by mouth 1 (one) time each day. 08/09/19 Active oxyCODONE (ROXICODONE) 5 mg immediate release tablet Take 1 tablet (5 mg total) by mouth. 08/06/19 Active PREDNISOLONE ACETATE ORAL Take by mouth. Ac tive diphenhydrAMINE (BENADRYL) 25 mg tablet TAKE 1 TABLET BY MOUTH AT BEDTIME NEEDED FOR ITCH 05/12/20 Active inhalat.spacing dev,large mask spacer Please use with inhaler 09/28/19 Active sucralfate (CARAFATE) 100 mg/mL suspension Take 10 mL (1 g total) by mouth. 02/19/20 Active tacrolimus (PROTOPIC) 0.1 % ointment APPLY 1 APPLICATION OF OINTMENT TOPICALLY TO THE RIGHT FOOT RASH ONCE DAILY 04/16/20 Active ticagrelor (BRILINTA) 90 mg tablet Take 1 tablet (90 mg total) by mouth 2 (two) times a day. 04/06/20 Active triamcinolone (KENALOG) 0.1 % lotion APPLY SPARINGLY TO AFFECTED AREAS TWICE DAILY NEEDED 08/24/19 Active Breo Ellipta 100-25 mcg/dose inhaler Take 1 puff by mouth 1 (one) time each day. INHALE 1 PUFF BY MOUTH EVERY DAY AT THE SAME TIME EACH DAY 04/17/20 Active efinaconazole (Jublia) 10 % solution with applicator Apply topically. Active gabapentin (NEURONTIN) 300 mg capsule Take 1 capsule (300 mg total) by mouth. Active ibuprofen (ADVIL,MOTRIN) 800 mg tablet Take 1 tablet (800 mg total) by mouth 3 (three) times a day if needed. 09/21/19 Active lidocaine (XYLOCAINE) 5 % ointment Apply topically. Active meclizine (ANTIVERT) 12.5 mg tablet Take 1 tablet (12.5 mg total) by mouth 3 times daily as needed. 07/31/19 Active diclofenac (VOLTAREN) 1 % topical gelIndications:Myra guerrero osteoarthritis of right knee,Primary osteoarthritis of left knee Apply 4 g topically 4 (four) times a day if needed (pain or swelling). 100 g 2 06/06/20 24 Active atorvastatin (LIPITOR) 10 mg tablet Take 1 tablet by mouth once daily 90 tablet 08/03/19 25 Active cimetidine (TAGAMET) 800 mg tablet Take 1 tablet (800 mg total) by mouth at bedtime. Active albuterol HFA (PROAIR HFA ; PROVENTIL HFA ; VENTOLIN HFA) 90 mcg/actuation inhaler Inhale 2 puffs by mouth every 6 (six) hours if needed for wheezing. 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 12/17/2022 ST elevation (STEMI) myocardial infarction 12/11 Benign prostatic hyperplasia without lower urinary tract symptoms 10/06/2022 White coat syndrome with hypertension 08/14/2022 Gastroesophageal reflux dise ase with esophagitis without hemorrhage 08/14/2022 JENNIFER (obstructive sleep apnea) 08/14/2022 Ganglion cyst of flexor tendon sheath 08/05/2022 Trigger finger, left middle finger 08/05/2022 Gastric erosions 04/27/2022 Passage of loose stools 04/27/2022 Elevated random blood glucose level 11/07/2020 Multiple renal cysts 05/08/2020 Overview (08/27/2023): Right renal cysts seen on CT scan 04/2020. Too small to characterize. Tiny right renal cyst seen on ultrasound 06/12/2021. Liver enzyme elevation 04/09/2020 Unilateral partial vocal cord paralysis 04/09/20 20 S/P TURP 02/22/2020 Constipation 01/26/2020 Chronic nonintractable headache 01/26/2020 Vertigo 01/26/2020 Status post thyroidectomy 08/03/2019 Thyroid nodule 06/29/2019 Overview (08/27/2023): Pathology suspeciosu for hurtle cell neoplasm Allergic rhinitis due to pollen 09/20/2018 BPH associated with nocturia 11/16/2017 Overview (08/27/2023): Seeing Dr. Bell yearly Herpes zoster without complication 10/15/2017 Lumbar disc herniation with radiculopathy 2016 Osteoarthritis 12/10/2016 Overview (08/27/2023): Thoracic, & Lumbosacral Spine, Knees, Big Toe Esophageal reflux 11/28/2014 Mild tricuspid regurgitation 10/18/2014 Proteinuria 09/27/2014 Overview (08/27/2023): Sees Dr. Mccormick Hematuria, microscopic 07/13/2013 Overview (08/27/2023): negative urological workup. Dr. Bell Chronic gout without tophus 12/17/2011 Overview (08/27/2023): Possible diagnosis Encounters Date Type Department Care Team Description 08/08/2024 12:45 PM EST Anesthesia Event [facility] Pain Management [address] [place] [address] Bolivar Palmer MD 08/08/2024 11:38 AM EST - 08/08/2024 11:59 PM EST Hospital Encounter [facility] Pain Management [address] [place] [address] Vladislav Antunez DO Chang, Daniel J, MD Radiculopathy, lumbar region Discharge Disposition: Home or Self Care 08/08/2024 6:21 AM EST - 08/08/2024 11:59 PM EST Hospital Encounter [facility] Xray [address] [place] [phone] Pain Discharge Disposition: Home or Self Care 07/13/2024 Telephone [facility] Cardiology [address] [place] [address] [place] [phone] Wayne Jaimes MD Medical Records 06/06/2024 3:30 PM EST Office Visit Orthopedic Surgery - [place] [address] [place] [phone] Wen Herrmann NP Primary osteoarthritis of right knee (Primary Dx); Primary osteoarthritis of left knee from Last 3 Months Immunizations Name Administration Dates Next Due Influenza trivalent, 0.5mL ( Fluzone High-dose) 65yo and older 04/06/2023,04/08/2021,04/09/2020,05/06 Influenza trivalent, with pr eservative (Fluzone; Afluria) 6mo and older 04/20/2022,04/08/2021,04/09/2020,05/06,06/23/2018,06/18/2017,03/20/2016 ,04/22/2015,05/16/2014,05/26/2013,03/2012 Pfizer (ages 12 & older) Biv alent, COVID-19 04/01/2022 Pfizer SARS-CoV-2 COVID-19, mRNA, LNP-S, preservative free 10/22/2020,09/30/2020 Pneumococcal conjugate 13 va lent (Prevnar 13, PCV13) 2mo and older 04/09/2020 Pneumococcal polysaccharide 23 valent (Pneumovax 23) 2yo and older 04/28/2019 Tdap Tetanus diptheria acell ular pertussis (Boostrix; Adacel) 7yo and older 04/26/2020,08/31/2012 Zoster Live 09/16/2015 Zoster recombinant (Shingrix ) 19yo and older 01/24/2020,09/06/2019 Surgical History Surgery Date Site/Laterality Comments COLONOSCOPY 10/05/11 PROCEDURE: HISTORICAL COLONOSCOPY; COMMENT: [facility] - hemorrhoids otherwise normal to the cecum OTHER SURGICAL HISTORY PROCEDURE: HISTORICAL UNSPECIFIED SURGERY; COMMENT: facial bone fracture repair UPPER GASTROINTESTINAL ENDOSCOPY 01/13/2017 PROCEDURE: [facility] UPPER GI ENDOSCOPY PERFORMED; COMMENT: normal UPPER GASTROINTESTINAL ENDOSCOPY 03/08/12 PROCEDURE: [facility] UPPER GI ENDOSCOPY PERFORMED; COMMENT: normal OTHER SURGICAL HISTORY 2019 PROCEDURE: HISTORICAL SUBTOTAL THYROIDECTOMY; COMMENT: dr. hernandez 2019 TURP / TRANSURETHRAL INCISIO N / DRAINAGE PROSTATE 02/20/2020 PROCEDURE: HISTORICAL TURP; COMMENT: dr. bell COLONOSCOPY 02/14/2019 PROCEDURE: HISTORICAL COLONOSCOPY; COMMENT: Dr. Auguste - 2 rectal adenomatous polyps. internal hemorrhoids. repeat 5 years. OTHER SURGICAL HISTORY 06/2020 PROCEDURE: HISTORICAL UNSPECIFIED SURGERY; COMMENT: urethral stricture repair- Dr. Bell UPPER GASTROINTESTINAL ENDOSCOPY 09/17/2020 PROCEDURE: [facility] UPPER GI ENDOSCOPY PERFORMED; COMMENT: Normal findings. Biopsies of the midesophagus: Normal. Medical History Medical History Date Comments Gout 12/17/2011 DX:Gout; COMMENT : Possible diagnosis Hematuria, microscopic 07/13/2013 DX:Hematu jake, microscopic; COMMENT: negative urological workup. Dr. Bell Allergic rhinitis due to pollen 09/20/2018 DX:Allergic rhinitis due to pollen BPH associated with nocturia 11/16/2017 DX: BPH associated with nocturia; COMMENT: Seeing Dr. Bell yearly Esophageal reflux 11/28/2014 DX:Esophageal reflux Herpes zoster without complication 10/15/2017 DX:Herpes zoster without complication Lumbar disc herniation with radiculopathy 12/10/2016 DX:Lumbar disc herniation wi th radiculopathy Mild tricuspid regurgitation 10/18/2014 DX: Mild tricuspid regurgitation Osteoarthritis 12/10/2016 DX:Osteoarthriti s; COMMENT: Thoracic, & Lumbosacral Spine, Knees, Big Toe Proteinuria 09/27/2014 DX:Proteinuria; COMMENT: Sees Dr. Mccormick Hx of adenomatous colonic polyps 02/14/2019 DX:Hx of adenomatous colonic polyps; COMMENT: two rectal polyps. Repeat 5 years. Multiple renal cysts 05/08/2020 DX:Multiple renal cysts; COMMENT: Seen on CT scan 04/2020. Too small to characterize. Essential hypertension DX:Essent ial hypertension Constipation DX:Constipation Diabetes mellitus type 2, co ntrolled, with complications (CMS/HCC) DX:Diabetes mellitus type 2, controlled, with complications ([facility]) Straining with stools DX:Straini ng with stools Asthma DX:Asthma Gastric erosions DX:Gastric eros ions Passage of loose stools DX:Passa ge of loose stools Coronary artery disease invo lving tejon coronary artery of tejon heart with angina pectoris (CMS/HCC) 12/17/2022 DX:Coronary artery dise ase involving tejon coronary artery of tejon heart with angina pectoris (HCC) Esophageal dysmotility DX:Esopha geal dysmotility Gastritis DX:Gastritis Dysphagia DX:Dysphagia Esophageal dysmotility DX:Esopha geal dysmotility Colon polyps DX:Colon polyps History of GA (myocardial infarction) DX:History of GA (myocardial infarction) Hyperlipidemia 03/06/2024 DX:Hyperlipidemi a JENNIFER on CPAP Family History Medical History Relation Name Comments Other: Autism Daughter 1 No Known Problems Daughter 2 Hypertension Father No Known Problems Maternal Grandfather No Known Problems Maternal Grandmother Lung cancer Mother CAD Other: unknown heart condition Mother No Known Problems Paternal Grandfather No Known Problems Paternal Grandmother Other: Thyroid cancer Sister 1 Other cancer Sister 2 unknown Colon cancer Neg Hx Relation Name Status Comments Daughter 1 Alive Daughter 2 Alive Father Maternal Grandfather Maternal Grandmother Mother Paternal Grandfather Paternal Grandmother Sister 1 Alive Sister 2 Social History Tobacco Use Types Packs/Day Years Used Date Smoking Tobacco: Never Smokeless Tobacco: Never Alcohol Use Standard Drinks/Week Comments No 0 (1 standard drink = 0.6 oz pur e alcohol) Interpersonal Safety Answer Date Record ed Physical Abuse 08/08/2024 Verbal Abuse 08/08/2024 Sex and Gender Information Value Date Recorded Sex Assigned at Male 08/08/2024 11:35 AM EST Legal Sex Male 10:19 PM EST Gender Identity Male 08/08/2024 11:35 AM EST Sexual Orientation Straight 08/08/2024 11 :35 AM EST Obstetrics History Last Filed Vital Signs Vital Sign Reading Time Taken Comments Blood Pressure 134/78 08/08/2024 1:41 PM EST Pulse 52 08/08/2024 1:41 PM EST Temperature 36.1 ??C (97 ??F) 08/08/2024 1:13 PM EST Respiratory Rate 16 08/08/2024 1:13 PM EST Oxygen Saturation 96% 08/08/2024 1:41 PM EST Inhaled Oxygen Concentration - - Weight 65.8 kg (145 lb) 08/08/2024 11:57 AM EST Height 167.6 cm (5' 6 ) 08/08/2024 11:57 AM EST Body Mass Index 23.4 08/08/2024 11:57 AM EST Plan of Treatment Upcoming Encounters Date Type Department Care Team (Late st Contact Info) Description 09/18/2024 8:30 AM EDT Office Visit Adult Medicine [address] [place], [place] [phone] Alice Schreiber PA [address] [place], [place] 10/04/2024 3:30 PM EDT Office Visit Orthopedic Surgery - [place] [address] [phone] Wen Herrmann NP [address] [address] 11/15/2024 3:15 PM EDT Office Visit Nephrology - [address] [phone] Eduard Mccormick MD [address] [facility] [address] [place] [phone] Health Maintenance Due Date Last Done Comments Medicare Annual Wellness Visit 06/18/2022 Social Influencers of Health Screening 06/18/2022 Colorectal Cancer Screening: Colonoscopy 02/15/2024 02/14/2019 Depression Screening 04/06/2024 04/06/2023 Hypertension/CHF/CAD Annual BMP Blood Test 03/06/2025 03/06/2024, 12/20/2023 Falls Risk Assessment 08/08/2025 08/08/2024, 023 Cholesterol Screening (Lipid Panel) 03/06/2029 03/06/2024, 08/17/2023 DTaP,Tdap,and Td Vaccines (3 - Td or Tdap) 04/26/2030 04/26/2020, 08/31/2012 Zoster Vaccines Completed 01/24/2020, 08/13, 09/16/2015 Pneumococcal Vaccine: 50+ Years Completed 04/09/2020, 04/28/2019 Hepatitis C Screening Addressed 04/18/2020 Overri dden with the intention of not completing the topic RSV Immunization Patients 60+ Years Old Completed 05/17/2023 COVID-19 Vaccine Completed 03/08/2024, 09/2022, 04/01/2022, Additional history exists Influenza Vaccine Completed 04/28/2024, , 04/20/2022, Additional history exists HIB Vaccines Aged Out No longer eligi ble based on patient's age to complete this topic HPV Vaccines Aged Out No longer eligi ble based on patient's age to complete this topic Hepatitis A Vaccines Aged Out No long er eligible based on patient's age to complete this topic Hepatitis B Vaccines Aged Out No long er eligible based on patient's age to complete this topic IPV Vaccines Aged Out No longer eligi ble based on patient's age to complete this topic MMR Vaccines Aged Out No longer eligi ble based on patient's age to complete this topic Meningococcal ACWY Vaccine Aged Out N o longer eligible based on patient's age to complete this topic Meningococcal B Vacine Aged Out No lo nger eligible based on patient's age to complete this topic RSV Immunization Patients Under 20 months Aged Out No longer eligible based on patient's age to complete this topic Varicella Vaccines Aged Out No longer eligible based on patient's age to complete this topic Insurance [employer] MEDICARE MEDICAID - [place] Care Teams Manager Pmo Relationship Specialty Start Date End Date Wayne Jaimes MD [address] [place] [id number] PCP - General Internal Medicine 02/16/22
--- OUTSIDE RECORDS SUMMARY | 2024-08-31 15:01 | XMS_ITS | Encounter Summary ---
Author Organization [facility] Address [address] [place] [address] Care Team Providers Care Insurance Executive Name Role Phone Reilly Baker MD, PHD Unavailable Unava ilable Wayne Jaimes Primary Care Provider [phone] Dafne Hilton MD Unavailable [phone] Desi Swenson NP Unavailable [phone] Encounter Details Date Type Department Care Team Description 04/29/2022 Patrol Sergeant Report Medical Records [address] [place] [address] Abstract, Provider Social History Tobacco Use Types [...] Date Type Specialty Care Team Description 04/29/2027 Patrol Sergeant Report Abstract, Provider documented as of this encounter Visit Diagnoses Not on filedocumented in this encounter Care Teams Insurance Executive Relationship Specialty Start Date End Date Wayne Jaimes [address] [place] [address] PCP - General Internal Medicine 02/16/22 Reilly Baker MD, PHD Surgeon Neurosurgery 01/20/22 Dafne Hilton MD [address] [place], [place] [phone] Specialist Cardiology 10/13/22 Desi Swenson NP [address] [place] [address] Cardiology 02/29/24 documented as of this encounter
--- OUTSIDE RECORDS SUMMARY | 2024-08-31 15:01 | XMS_ITS | Encounter Summary ---
Author Organization [facility] Address [address] [place] [address] Care Team Providers Care Client Coordinator Name Role Phone Reilly Baker MD, PHD Unavailable Unava ilable Wayne Jaimes Primary Care Provider [phone] Dafne Hilton MD Unavailable [phone] Desi Swenson NP Unavailable [phone] Encounter Details Date Type Department Care Team Description 04/08/2022 Pt. Non Urgent Medical Question Adult Medicine [address] [address] Wayne Jaimes [address] [place] [phone] Social History Tobacco Use Types Packs/Day Years [...] Date Type Specialty Care Team Description 04/29/2027 Resource Coordinator Report Abstract, Provider documented as of this encounter Visit Diagnoses Not on filedocumented in this encounter Care Teams Client Coordinator Relationship Specialty Start Date End Date Erinarin Wayne Dowell [address] [place] [address] PCP - General Internal Medicine 02/16/22 Reilly Baker MD, PHD Surgeon Neurosurgery 01/20/22 Dafne Hilton MD [address] [place] [address] Specialist Cardiology 10/13/22 Desi Swenson NP [address] [place] [address] Cardiology 02/29/24 documented as of this encounter
--- OUTSIDE RECORDS SUMMARY | 2024-08-31 15:01 | XMS_ITS | Encounter Summary ---
Author Organization [facility] Address [address] [place] [address] Care Team Providers Care Grinder Set Up Operator Internal Name Role Phone Brett Velásquez MD Primary Care Provider Keisha Luna MD Primary Care Provider [phone] Brett Velásquez MD Primary Care Provider Reilly Stewart MD, PHD Unavailable Unava ilable Brett Velásquez MD Primary Care Provider Wayne Dickson Primary Care Provider [phone] Dafne Hilton MD Unavailable [phone] Desi Swenson NP Unavailable [phone] Encounter Details Date Type Department Care Team Description 05/17/2012 [place] Report Medical Records [address] [place] [id number] Shaquille Chandra Social History Tobacco Use Types Packs/Day Years [...] Date Type Specialty Care Team Description 04/29/2027 [place] Report Abstract, Provider documented as of this encounter Visit Diagnoses Not on filedocumented in this encounter Care Teams Grinder Set Up Operator Internal Relationship Specialty Start Date End Date Brett Velásquez MD PCP - General Internal Medicine 10/29/11 06/19/15 Keisha Chavez MD [address] [place] [address] PCP - General Internal Medicine 06/20/15 04/20/16 Brett Velásquez MD PCP - General Internal Medicine 04/21/16 01/25/22 Brett Velásquez MD PCP - General Internal Medicine 01/26/22 02/15/22 Wayne Jaimes [address] [place] [address] PCP - General Internal Medicine 02/16/22 Reilly Baker MD, PHD [address] [place] [address] Surgeon Neurosurgery 01/20/22 Dafne Hilton MD [address] [place] [address] Specialist Cardiology 10/13/22 Desi Swenson NP [address] [place] [address] Cardiology 02/29/24 documented as of this encounter
--- OUTSIDE RECORDS SUMMARY | 2024-08-31 15:01 | XMS_ITS | Encounter Summary ---
Author Organization [facility] Address [address] [place] [address] Care Team Providers Care Die Cast Technician Name Role Phone Keisha Chavez MD Primary Care Provider [phone] Brett Velásquez MD Primary Care Provider Reilly Stewart MD, PHD Unavailable Unava ilBrett Bailon MD Primary Care Provider Wayne Dickson Primary Care Provider [phone] Dafne Hilton MD Unavailable [phone] Desi Swenson NP Unavailable [phone] Encounter Details Date Type Department Care Team Description 12/25/2015 Orders Only Nephrology - [place] [address] [place] [address] Eduard Mccormick MD [address] [place] [address] Social History Tobacco Use Types Packs/Day Years [...] Date Type Specialty Care Team Description 04/29/2027 Earth Science Professor Report Abstract, Provider documented as of this encounter Results * (ABNORMAL) MICROALBUMIN/CREATININE, URINE (12/25/2015 9:24 AM EDT) Pathologist [facility] CREAT,RANDOM URINE 161 mg/dL 12/25/2015 11:13 AM T [facility] MICROALBUMIN, RANDOM 111.7(H) 0.0 - 29.0 mg/L 12/25/2015 11:13 AM [facility] MICROALB/CRE RATIO RANDOM 69.3(H) <30.0 mg/g 12/25/2015 11:13 AM T [facility] 12/25/2015 9:24 AM EDT 12/25/2015 9:25 AM EDT Eduard Mccormick MD LAB Performing Organization Address [facility] Co de Phone Number [address] * 25 HYDROXY INCLUDES FRACTIONS IF PERFORMED (12/25/2015 9:24 AM EDT) [facility] 25-HYDROXY VITAMIN D TOTAL 30 30 - 80 ng/ml 12/25/2015 3:35 PM T [facility] Comment: Vitamin D Reference Ranges ??Deficiency: ? <20 ng/mL ??Insufficiency: ?20-29 ng/mL ??Optimal: ?30-80 ng/mL ??High: ? >80 ng/mL 12/25/2015 9:24 AM EDT 12/25/2015 9:25 AM EDT Eduard Mccormick MD LAB Performing Organization Address [facility] Co de Phone Number [address] * CALCIUM,TOTAL (12/25/2015 9:24 AM EDT) [facility] CALCIUM 9.2 8.5 - 10.5 mg/dL 12/25/2015 10:52 AM T [facility] 12/25/2015 9:24 AM EDT 12/25/2015 9:25 AM EDT Eduard Mccormick MD LAB Performing Organization Address [facility] Co de Phone Number [address] * ELECTROLYTE PANEL (12/25/2015 9:24 AM EDT) Sodium 142 133 - 145 mEq/L 12/25/2015 10:52 AM EDT [facility] Potassium 4.5 3.5 - 5.5 mEq/L 12/25/2015 10:52 AM EDT [facility] Chloride 103 96 - 108 mEq/L 12/25/2015 10:52 AM EDT [facility] CO2 27.9 21.0 - 32.0 mEq/L 12/25/2015 10:52 AM EDT [facility] 12/25/2015 9:24 AM EDT 12/25/2015 9:25 AM EDT Eduard Mccormick MD LAB Performing Organization Address [facility] de Phone Number [address] * CREATININE, BLOOD ASSAY (12/25/2015 9:24 AM EDT) CREAT 1.0 0.7 - 1.5 mg/dL 12/25/2015 10:52 AM EDT [facility] GFR > 60 >60 12/25/2015 10:52 AM EDT [facility] Comment: If patient is -Kos[place], multiply result by 1.21 Chronic Kidney Disease: < 60 ml/min/1.73 square meters Kidney Failure: < 15 ml/min/1.73 square meters 12/25/2015 9:24 AM EDT 12/25/2015 9:25 AM EDT Eduard Mccormick MD LAB Performing Organization Address [facility] Co de Phone Number [address] * BLOOD UREA NITROGEN (BUN) (12/25/2015 9:24 AM EDT) BUN 17 5 - 25 mg/dL 12/25/2015 10:52 AM EDT [facility] 12/25/2015 9:24 AM EDT 12/25/2015 9:25 AM EDT Eduard Mccormick MD LAB [facility] [address] [place] [address] documented in this encounter Visit Diagnoses Not on filedocumented in this encounter Care Teams Die Cast Technician Relationship Specialty Start Date End Date Keisha Chavez MD [address] [place] [address] PCP - General Internal Medicine 06/20/15 04/20/16 Brett Velásquez MD [address] [place], [place] [phone] PCP - General Internal Medicine 04/21/16 01/25/22 Brett Velásquez MD [address] [place] [address] PCP - General Internal Medicine 01/26/22 02/15/22 Wayne Jaimes [address] [place] [address] PCP - General Internal Medicine 02/16/22 Reilly Baker MD, PHD [address] [place] [address] Surgeon Neurosurgery 01/20/22 Dafne Hilton MD [address] [place] [address] Specialist Cardiology 10/13/22 Desi Swenson NP [address] [place] [address] Cardiology 02/29/24 documented as of this encounter
--- OUTSIDE RECORDS SUMMARY | 2024-08-31 15:01 | XMS_ITS | Encounter Summary ---
Author Organization [facility] Address [address] [place] [address] Care Team Providers Care Ramp Service Man Name Role Phone Brett Velásquez MD Primary Care Provider Keisha Luna MD Primary Care Provider [phone] Brett Velásquez MD Primary Care Provider Reilly Stewart MD, PHD Unavailable [facility] Primary Care Provider Wayne Dickson Primary Care Provider [phone] Dafne Hilton MD Unavailable [phone] Desi Swenson NP Unavailable [phone] Reason for Visit * Reason Onset Date Comments My Chart Appointment 02/04/2015 Encounter Details Date Type Department Care Team Description 02/04/2015 Telephone Adult Medicine [address] [address] Brett Velásquez MD My Chart Appointment Social History Tobacco Use Types Packs/Day Years Used Date Smoking Tobacco: Never Smokeless Tobacco: Never Alcohol Use Standard Drinks/Week Comments No 0 (1 standard drink = 0.6 oz pur e alcohol) Sex Assigned at Date Recorded Not on file Job Start Date Occupation Industry Not on file Not on file Not on file documented as of this encounter Miscellaneous Notes * Telephone Encounter - Zoraida Mcallister - 02/04/2015 9:50 AM EDT Patient has scheduled a visit through My Chart. Please call patient to triage for appropriateness. Date appointment is booked: 02/06/15 Appointment scheduled with Shaquille Loredo Reason for appointment: Comments: New Problem Visit 1. still have worse a back pain. can not have a enough sleeping everyday, chiro practice doctor recommended to see a specal doctor(ortho pedics) so that need a referral paper. 2,have a headache, nausea, pain on eye, not clear when look object and a stagger to right side from yesterday( ). need a MRI testing on brain quickly. documented in this encounter Plan of Treatment Upcoming Encounters Date Type Specialty Care Team Description 04/29/2027 Director Outpatient Services Report Abstract, Provider documented as of this encounter Visit Diagnoses Not on filedocumented in this encounter Care Teams Ramp Service Man Relationship Specialty Start Date End Date Brett Velásquez MD PCP - General Internal Medicine 10/29/11 06/19/15 Keisha Chavez MD [address] [place] [address] PCP - General Internal Medicine 06/20/15 04/20/16 Brett Velásquez MD PCP - General Internal Medicine 04/21/16 01/25/22 Brett Velásquez MD PCP - General Internal Medicine 01/26/22 02/15/22 Wayne Jaimes [address] [place] [address] PCP - General Internal Medicine 02/16/22 Reilly Baker MD, PHD [address] [place] [address] Surgeon Neurosurgery 01/20/22 Dafne Hilton MD [address] [place] [address] Specialist Cardiology 10/13/22 Desi Swenson NP [address] [place] [address] Cardiology 02/29/24 documented as of this encounter
--- OUTSIDE RECORDS SUMMARY | 2024-08-31 15:01 | XMS_ITS | Encounter Summary ---
Author Organization [facility] Address [address] [place] [address] Care Team Providers Care Product Control And Logistics Analyst Name Role Phone Reilly Baker MD, PHD Unavailable Unava Wayne Blackman Primary Care Provider [phone] Dafne Hilton MD Unavailable [phone] Desi Swenson NP Unavailable [phone] Reason for Visit * Reason Onset Date Comments medication problems 04/27/2022 Encounter Details Date Type Department Care Team Description 04/27/2022 Telephone Gastroenterology - [place] [facility] [address] [place] [id number] Kevin Oliva PA-C [address] [address] medication problems Social History Tobacco Use Types Packs/Day Years [...] PM EDT documented as of this encounter Miscellaneous Notes * Telephone Encounter - Kevin Oliva PA-C - 04/27/2022 5:38 PM EDT He can take it twice a day but I want him to take at least 1 dose at bedtime. * Telephone Encounter - Cristina Jimenez - 04/27/2022 4:23 PM EDT Please clarify, thanks * Telephone Encounter - Tawny Pantoja - 04/27/2022 3:52 PM EDT [facility] is calling stating they received a RX for Sucralafate. States the RX States to take 2 timesdaily but then also says to take dose at bedtime- needs clarification if take 2 or 3 times daily documented in this encounter Plan of Treatment Upcoming Encounters Date Type Specialty Care Team Description 04/29/2027 Hand Laster Report Abstract, Provider documented as of this encounter Visit Diagnoses Not on filedocumented in this encounter Care Teams Product Control And Logistics Analyst Relationship Specialty Start Date End Date Wayne Jaimes [address] [place] [address] PCP - General Internal Medicine 02/16/22 Reilly Baker MD, PHD Surgeon Neurosurgery 01/20/22 Dafne Hilton MD [address] [place] [address] Specialist Cardiology 10/13/22 Desi Swenson NP [address] [place] [address] Cardiology 02/29/24 documented as of this encounter
--- OUTSIDE RECORDS SUMMARY | 2024-08-31 15:02 | XMS_ITS | Continuity of Care Document ---
Author Organization [place] [facility], [facility] Address [address] [place] [address] Care Team Providers Care Meat Cutter Name Role Phone [place] Primary Care Provider Assessment No assessment recorded. Plan of Treatment Reminders Order Date Submit Date Provider Last Modified By Organization Details Last Modified Time Details Appointments Establish ed 30 2024 02:30P M ENEIDA Desouza MD Not available Not available Not available Lab None recorded. Referral speech therapy referral 2024 025 [email or web address] [facility], [address] [place] [address] [place], [address], 08/11/2024 11:57:42 Procedures None recorded. Surgeries None recorded. Imaging None recorded. Medication Orders famotidin e 20 mg tablet 2024 025 [facility], [address] [facility], [place], [address], 08/10/2024 15:05:18 Patient TargetsNo targets recorded. Patient InstructionsNo instructions recorded. Reason for Referral Referring Physician: Eneida Mccall, Otolaryngology, Encounter Date: 08/10/2024 Problems Name Problem SNOMED Code Status Onset Date Resolution Date Notes Provider Name and Address Organization Details Recorded Time Sensorine ural hearing loss of bilateral ears 272777014 Active 2019 Sensorine ural hearing loss, bilateral ; Note: Date Diagnosed : 02/26/2020 3:32 PM (H90.3) Note: Date Diagnosed : 02/26/2020 3:32 PM (H90.3) Not Available [facility] 4 00:53:14 Stomatiti s 09650593 Active 2020 Oral thrush; Note: Date Diagnosed : 04/14/2021 11:22 AM (B37.0) Not Available [facility] 4 02:18:55 Candidias is of mouth 03672248 Active 2020 Oral thrush; Note: Date Diagnosed : 04/14/2021 11:22 AM (B37.0) Not Available [facility] 4 02:18:55 Gastroeso phageal reflux disease without esophagit is 178723789 Active 2015 Gastro-es ophageal reflux disease without esophagit is; Note: Date Diagnosed : 07/22/2015 2:46 PM (K21.9) Not Available [facility] 4 02:19:18 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, unilatera l; Note: Date Diagnosed : 12/12/2019 3:31 PM (J38.01) Not Available [facility] 4 02:18:19 Dysphagia 15000397 Active 2022 Dysphagia , unspecifi ed; Note: Date Diagnosed : 10/27/2021 12:05 PM (R13.10) ; Start Date : 2 Other dysphagia ; Note: Date Diagnosed : 04/07/2023 1:44 PM (R13.19) Not Available [facility] 4 02:19:19 Benign paroxysma l positiona l vertigo 788932460 Active 2019 Benign paroxysma l vertigo, left ear; Note: Date Diagnosed : 02/26/2020 3:32 PM (H81.12) Not Available [facility] 4 02:18:20 Cough 84288343 Active 2015 Cough, unspecifi ed; Note: Changed from R05 to R05.9 ( 2 2:10 PM) , Date Diagnosed : 09/04/2015 3:10 PM (R05) Not Available [facility] 4 02:19:08 Oropharyn geal dysphagia 99211584 Active 2023 Dysphagia , oropharyn geal phase; Note: Date Diagnosed : 09/16/2023 1:19 PM (R13.12) Not Available [facility] 02:19:08 Hemoptysi s 65002819 Active 2023 ENEIDA MCCALL MD [address] [facility],[place] [address], [place], [address] , [place] - [facility] 14:33:59 Chronic sore throat 276451326 Active 2023 ENEIDA MCCALL MD [address] [facility],[place] [address], [place], [address] , [place] - [facility] 14:34:04 Chronic hoarsenes s 65538244888 05 Active 2023 ENEIDA MCCALL MD [address] [facility],[place] [address], [place], [address] , [place] - [facility] 14:42:59 Problem Notes None recorded. Procedures Surgical History Date Name Laterality Status Provider Name and Address Organization Details Recorded Time 08/10/19 25 FFL_RE completed ENEIDA MCCALL MD [address] [place] [address],[place] [address], [place], [address], [place] - [facility] 08/10/2024 15:02:15 04/21/20 24 FFL_RE completed ENEIDA MCCALL MD [address] [place] [address],[address], [address], [place] - [facility] 04/21/2024 14:41:39 transurethral prostatectomy completed Bibi Neal [place] - [facility] 05/10/2024 14:05:40 subtotal thyroidectomy completed Bibi Neal [place] - [facility] 05/10/2024 14:05:53 Imaging Results None recorded. Procedure Notes None recorded. Medical Equipment None Reported. Allergies No known drug allergies Medications Name Sig Start Date Stop Date Status Note LastModified by Organization Details LastModified Time losartan 50 mg tablet 05/06 completed Medicati on ID: [id number] B rand Name: losartan Send Method: E-Prescr [...] gram tablet 05/06 completed Medicati on ID: [id number] D uration Value: 7 Brand Name: valacycl [...] mucosal jelly 05/10 completed Medicati on ID: [id number] D uration Value: 14 Brand Name: lidocain [...] mg capsule 05/06 completed Medicati on ID: [id number] D uration Value: 90 Brand Name: tamsulos in Send Method: E-Prescr ibed Sub s Allowed: subs OK Speci al Instruct ion: TAKE ONE CAPSULE DAILY Me dication GenericN jay: tamsulos in Not Available Not Available Not Available pantopraz ole 40 mg tablet,de layed release 07/12 completed Medicati on ID: [id number] D uration Value: 30 Brand Name: pantopra [...] by mouth 07/12 completed Medicati on ID: [id number] D uration Value: 30 Prescri bed By [...] oral powder 05/10 completed Medicati on ID: [id number] D uration Value: 30 Brand Name: polyethy [...] layed release 12/11 completed Medicati on ID: [id number] P devonte d By Name: Trevon Gee [...] both nostrils 10/17 completed Medicati on ID: [id number] P devonte d By Name: José Trevon [address], nd Name: Flonase Allergy Relief S end Method: E-Prescr ibed Sub s Allowed: subs OK Medic ationGen ericName : Flonase Allergy Relief Not Available Not Available Not Available Vitals Date Recorded Body height Provider Name an d Address Organization Details Last Updated DateTime 08/10/2024 167.64 cm Aakash Weaver [place] - [facility] 08/10/2024 14:29:36 Social History None recorded. Functional Status None recorded. Mental Status None recorded. Family History Nothing Reported. Medical History Condition Response Hypertension Y Sleep Disorder Y GERD/Reflux Y Past Encounters Encounter ID Performer Location Encounter Start Date Encounter Closed Date Diagnosis/Indication Diagnosis SNOMED-CT Code Diagnosis ICD10 Code Diagnosis Note [id number] ENEIDA MCCALL MD [facility] [address] [address] 08/10/2024 13:56:29 08/10/2024 15:05:58 Chronic sore throat 770260886 J31.2 no evidence of thrush. he has breakthrou gh heartburn and I think the soreness is due to LPR. I will add dual therapy for reflux with famotidine in addition to his PPI. Gastroesop hageal reflux disease without esophagitis 848783681 K21.9 begin dual thearpy Candidiasis of mouth 797 78688 B37.0 resolved Chronic hoarseness 95756 9[address] 105 R49.0 will make voice therapy referral to [facility] since [facility] e no vocal cord lesions. Health Concerns Section Related Observation LastModified by Organization Naomie hawkins LastModified Time None Recorded Concern Status LastModified by Organization Details LastModified Time None Recorded Payers Encounter Date Sequence Insurance Name Policy Number Policy Ayala Covered Member ID Ayala Member ID Guarantor Name 08/10/2024 1 [facility] Laina Lewis [id number] Laina Lewis Notes Date Note Type Note Provider Name and Address Organization Details Recorded Time 08/10/2024 text/html He has a history of [...] FOL in September 2020. ENEIDA MCCALL MD [address] [place] [address], [phone], [facility] - [facility] 08/10/2024 15:05:10
--- OUTSIDE RECORDS SUMMARY | 2024-08-31 15:02 | XMS_ITS | Encounter Summary ---
Author Organization [facility] Address [address] [place] [address] Care Team Providers Care Licensing Manager Name Role Phone Brett Velásquez MD Primary Care Provider Reilly Stewart MD, PHD Unavailable Unava ilBrett Bailon MD Primary Care Provider Wayne Dickson Primary Care Provider [phone] Dafne Hilton MD Unavailable [phone] Desi Swenson NP Unavailable Encounter Details Date Type Department Care Team Description 02/20/2020 [facility] Medical Records [address] [place] [address] Aleksandar Huggins MD Social History Tobacco Use [...] Date Type Specialty Care Team Description 04/29/2027 Quality Assistant Report Abstract, Provider documented as of this encounter Visit Diagnoses Not on filedocumented in this encounter Care Teams Licensing Manager Relationship Specialty Start Date End Date Brett Velásquez MD PCP - General Internal Medicine 04/21/16 01/25/22 Brett Velásquez MD PCP - General Internal Medicine 01/26/22 02/15/22 Wayne Jaimes [address] [place] [address] PCP - General Internal Medicine 02/16/22 Reilly Baker MD, PHD Surgeon Neurosurgery 01/20/22 Dafne Hilton MD [address] [place] [address] Specialist Cardiology 10/13/22 Desi Swenson NP [address] [place] [address] Cardiology 02/29/24 documented as of this encounter
--- OUTSIDE RECORDS SUMMARY | 2024-08-31 15:02 | XMS_ITS ---
Author Organization [facility] Address [address] [facility] [address] [place] [address] Care Team Providers Care Embedded Case Manager Name Role Phone Wayne Jaimes MD Primary Care Provider DESI Burks Unavailable [phone] Allergies No Known Allergies REASON FOR VISIT 3 month f/u Medications Medication SIG (Take, Route, Frequency, Duration) Notes [...] Not-Taking Diclofenac Sodium 1 % as directed Net Mobile Developer ally place 1 g onto the skin [...] as needed Orally Once a day Active Vital Signs Weight 146.7 lbs 12/24/2023 Height 5ft 6in in 12/24/2023 BMI 23.68 kg/m2 12/24/2023 Heart Rate 62 /min 12/24/2023 Temperature 97.3 degrees Fahrenheit 12/24/19 24 Respiratory Rate 12 /min 12/24/2023 Procedures Procedure Date Ordered Date Performed Result Body Sit e DRAIN/INJECT, SMALL JOINT/BURSA 12/24/2023 N/A Encounters Encounter Location Date Provider Diagnosis [facility] [address] [facility] [address] [place] [address] 12/24/2023 DESI LI Onychomycosis B35.1 ; Calcium pyrophosphate deposition disease (CPPD) M11.20 ; Psoriasis L40.9 ; Hallux limitus of left foot M20.5X2 ; Hallux limitus of right foot M20.5X1 and Lumbar radiculopathy, right M54.16 Assessments Encounter Date Diagnosis (ICD Code) Assessment Notes Treatment Notes Treatment Clinical Notes [...] under the right 4th and 5th toes. Plan Of Treatment Medication Medication Name Sig Start Date Stop Date Notes Lidocaine-Prilocaine 2.5-2.5 % APPLY 1 G JANES OF CREAM TOPICALLY TO THE RIGHT AND LEFT FOOT TWICE DAILY DIRECTED Externally twice daily for 30 days Efinaconazole 10 % 1 application Net Mobile Developer ally Once a day for 90 days [...] Up: 3 Months, Reason: Provider Name:DESI LI, 10/11/2024 02:45:00 PM, [address] [facility] [address], [place], [address], Medications Administered Medication Instructions Date of Administration Dosage Notes dexAMETHasone Sod Phosphate PF 12/24/2023 0.5 m L Kenalog 12/24/2023 0.5 mL Progress Notes * Mckinley LEWISOB:1955 ([age] yo M)Acc No.[id number]:12/24/2023 Progress Note Patient:?Laina LEWIS Provider:?Desi Li DPM :1955???Age:68 Y???Sex:Male Nael e:12/24/2023 Address:[address] [place], [place] [address] Pcp:Wayne Jaimes MD Subjective: * Chief Complaints: * ???3 month f/u * HPI: ???Constitutional:? This 68 y/o male returns to my [...] review of systems is noncontributory. * Medical History:? * Surgical History:?Appendecto my colonoscopy [facility]-hemorrhoids otherwise normal to the cecum colonoscopy -2 rectal adenomatous polyps.Internal hemorrhoids subtotal thyroidectomy [facility] facial bone fracture repair urethral stricture repair. vocal cord surgery 09/2019bilateral eye surgery 03/17/2022 * Hospitalization/Major Diagno stic Procedure:?thyroidectomy * Family History:?Father: hype rtension.?Mother: lung cancer.?Siblings: sister- diabetes, hypertensionsister- thyroid cancer.? * Social History:?Tobacco: no Alcohol: no. * Medications:?TakingKetoconaz ole 2 % Cream 1 application Externally Once [...] reviewed and reconciled with the patient * Allergies:?N.K.D.A.no[Allerg ies Verified] Objective: * Vitals:?Wt:146.7lbs, Ht: 5ft 6in, BMI:23.68Index, HR:62/min, Temp:97.3F, RR:12/min, Ht-cm: 167.64, Wt-k.54 kg. * Examination: ???General Examination: ???GENERAL: Patient appears well nourished, with NAD. ?VASCULAR: [...] bilaterally, protective sensation intact 10/10 with 5.07 [place] Alisha bilaterally, vibratory sensation with tuning fork [...] and ROM. ?SHOES: sneakers. Assessment: * Assessment: 1.?Calcium pyrophosphate dep osition disease (CPPD) - M11.20 (Primary)?2.?Onychomycosis - B35.1?3.?Psoriasis - L40.9?4.?Hallux limitus of left foot - M20.5X2?5.?Hallux limitus of right foot - M20.5X1?6.?Lumbar radiculopathy, right - M54.16? Plan: * Treatment: 2.?Onychomycosis? Start Efinaconazole Solution, 10 %, 1 application, Externally, Once a day, 90 days, 10 ml, Refills 2.?? Clinical Notes: I reviewed with the patient [...] to apply to each affected toenail daily. ?? 3.?Psoriasis? Start Tacrolimus Ointment, 0.1 %, 1 application to the right foot rash, Externally, Once a day, 30 days, 60 g, Refills 2.?? Notes: We discussed that CPPD and psoriasis can go hand in hand. We discussed that he has tried many topical steroids without improvement or resolution. He had resolution with the tacrolimus, he does not need another refill today. ?? 4.?Hallux limitus of left fo ot? Notes: I examined his orthotics which are still appropriate. We discussed his balance issues is not coming from his feet as the tread and wear on his shoes are equal. ?? 5.?Hallux limitus of right f oot?Procedure: DRAIN/INJECT, SMALL JOINT/BURSA Notes: Consent was reviewed and signed by the patient for a steroid injection into the right 1st metatarsophalangeal joint. Pt agreed. 3cc total steroid injection was given into the right foot. Pt tolerated well. Post-Injection instructions were given to the patient. Pt instructed to ice/elevate the foot tonight. ?? 6.?Lumbar radiculopathy, rig ht? Refill Lidocaine-Prilocaine Cream, 2.5-2.5 %, APPLY 1 GRAM OF CREAM TOPICALLY TO THE RIGHT AND LEFT FOOT TWICE DAILY DIRECTED, Externally, twice daily, 30 days, 75 g, Refills 1.?? Clinical Notes: We discussed a component of [...] under the right 4th and 5th toes. ?? * Procedures:?Procedure: The right foot was prepped [...] DESI LI D.P.M (Hallux limitus of right foot)??? Kenalog : 0.5 mL (Dose No:1) given by DESI LI D.P.M (Hallux limitus of right foot) * Procedure Codes:? DRAIN /INJECT, SMALL JOINT/BURSA, Modifiers: RT J1100 INJ DEXAMETHASONE SODIM PHOSHATE 1 [id number] INJ TRIAMCINOLONE ACETONIDE 10 MG * Follow Up:?3 Months * Billing Information: * Visit Code:? 62851 Office Visit, Est Pt., Level 3. Modifiers: 25 * Procedure Codes:? DRAIN/INJECT, SMALL JOINT/BURSA. Modifiers: RT J1100 INJ DEXAMETHASONE SODIM PHOSHATE 1 MG. J3301 INJ TRIAMCINOLONE ACETONIDE 10 MG. * Sign off status: Completed true * Provider:?Desi Li DPM Date:? 12/24/2023 Generated for Tatiana lema/Nilsa/eTransmitting on:?08/31/2024 03:01 PM EST History and Physical Notes * HPI (History [...] bilaterally, protective sensation intact 10/10 with 5.07 [place] Alisha bilaterally, vibratory sensation with tuning fork [...]
--- OUTSIDE RECORDS SUMMARY | 2024-08-31 15:02 | XMS_ITS | Encounter Summary ---
Author Organization [facility] Address [address] [place] [address] Care Team Providers Care Sanding Machine Operator Or Tender Name Role Phone Brett Velásquez MD Primary Care Provider Reilly Stewart MD, PHD Unavailable UnaBrett Davis MD Primary Care Provider Wayne Dickson Primary Care Provider [phone] Dafne Hilton MD Unavailable [phone] Desi Swenson NP Unavailable [phone] Reason for Visit * Reason Onset Date Comments TEST RESULTS 11/06/2020 Encounter Details Date Type Department Care Team Description 11/06/2020 Telephone Adult Medicine [address] [address] Divya Ro PA [address] [place] [id number] TEST RESULTS Social History Tobacco Use Types Packs/Day Years Used Date Smoking Tobacco: Never Smokeless Tobacco: Never Alcohol Use Standard Drinks/Week Comments No 0 (1 standard drink = 0.6 oz pur e alcohol) Sex Assigned at Date Recorded Not on file Job Start Date Occupation Industry Not on file Not on file Not on file COVID-19 Exposure Response Date Recorded In the last month, have you been in contact with someone who was confirmed or suspected to have Coronavirus / COVID-19? No / Unsure 11/05/2020 2:20 PM EDT documented as of this encounter Miscellaneous Notes * Telephone Encounter - Jolene Warner M.A. - 11/11/2020 8:43 AM EDT Left message for pt to call back * Telephone Encounter - SUSAN Olsen - 11/06/2020 4:19 PM EDT Please see my previous result note. Always make sure to check this prior to sending a message. Waiting on A1c. MyChart message has also been sent to patient. * Telephone Encounter - Ena Carlisle - 11/06/2020 3:09 PM EDT Inform patient: ANY URGENT OR ABNORMAL RESULTS WIILL RESULT IN A CALL BACK TO THE PATIENT SHELLY. Type of test: :blood test Date test was performed: 11/05/20 Where was the test performed: [facility] Who ordered this test?: Divya Ro Is the doctor here today?: YES Can the message wait until the doctor returns?: NO IF PATIENT'S PCP IS NOT IN INSTRUCT PATIENT THAT THEY WILL RECEIVE A CALL BACK WHEN THE PCP IS IN THE OFFICE NEXT. documented in this encounter Plan of Treatment Upcoming Encounters Date Type Specialty Care Team Description 04/29/2027 Business Intelligence Director Report Abstract, Provider documented as of this encounter Visit Diagnoses Not on filedocumented in this encounter Care Teams Sanding Machine Operator Or Tender Relationship Specialty Start Date End Date Brett Velásquez MD PCP - General Internal Medicine 04/21/16 01/25/22 Brett Velásquez MD PCP - General Internal Medicine 01/26/22 02/15/22 Wayne Jaimes [address] [place] [address] PCP - General Internal Medicine 02/16/22 Reilly Baker MD, PHD Surgeon Neurosurgery 01/20/22 Dafne Hilton MD [address] [place] [address] Specialist Cardiology 10/13/22 Desi Swenson NP [address] [place] [address] Cardiology 02/29/24 documented as of this encounter
--- OUTSIDE RECORDS SUMMARY | 2024-08-31 15:02 | XMS_ITS | Encounter Summary ---
Author Organization [facility] Address [address] [place] [address] Care Team Providers Care Sagger Maker Name Role Phone Brett Velásquez MD Primary Care Provider Keisha Luna MD Primary Care Provider [phone] Brett Velásquez MD Primary Care Provider Reilly Stewart MD, PHD Unavailable Unava ilable Brett Velásquez MD Primary Care Provider Wayne Dickson Primary Care Provider [phone] Dafne Hilton MD Unavailable [phone] Desi Swenson NP Unavailable [phone] Encounter Details Date Type Department Care Team Description 09/26/2012 Scrub Woman Report Medical Records [address] [place] [address] Shaquille Chandra Social History Tobacco Use Types [...] Date Type Specialty Care Team Description 04/29/2027 Scrub Woman Report Abstract, Provider documented as of this encounter Visit Diagnoses Not on filedocumented in this encounter Care Teams Sagger Maker Relationship Specialty Start Date End Date Brett Velásquez MD PCP - General Internal Medicine 10/29/11 06/19/15 Keisha Chavez MD [address] [place] [address] PCP - General Internal Medicine 06/20/15 04/20/16 Brett Velásquez MD PCP - General Internal Medicine 04/21/16 01/25/22 Brett Velásquez MD PCP - General Internal Medicine 01/26/22 02/15/22 Wayne Jaimes [address] [place] [address] PCP - General Internal Medicine 02/16/22 Reilly Baker MD, PHD [address] [place] [address] Surgeon Neurosurgery 01/20/22 Dafne Hilton MD [address] [place] [address] Specialist Cardiology 10/13/22 Desi Swenson NP [address] [place] [address] Cardiology 02/29/24 documented as of this encounter
--- OUTSIDE RECORDS SUMMARY | 2024-08-31 15:02 | XMS_ITS | Encounter Summary ---
Author Organization [facility] Address [address] [place] [address] Care Team Providers Care Technical Account Executive Name Role Phone Reilly Baker MD, PHD Unavailable Unava ilable Wayne Jaimes Primary Care Provider [phone] Dafne Hilton MD Unavailable [phone] Desi Swenson NP Unavailable [phone] Encounter Details Date Type Department Care Team Description 10/08/2022 Immigration Specialist Report Medical Records [address] [place] [address] Vladislav Antunez DO Social History Tobacco Use [...] suspected to have Coronavirus/COVID-19? No / Unsure 10/06/2022 12:47 PM EDT documented as of this encounter Plan of Treatment Upcoming Encounters Date Type Specialty Care Team Description 04/29/2027 Immigration Specialist Report Abstract, Provider documented as of this encounter Visit Diagnoses Not on filedocumented in this encounter Care Teams Technical Account Executive Relationship Specialty Start Date End Date Wayne Jaimes [address] [place], [place] [id number] PCP - General Internal Medicine 02/16/22 Reilly Baker MD, PHD Surgeon Neurosurgery 01/20/22 Dafne Hilton MD [address] [place] [address] Specialist Cardiology 10/13/22 Desi Swenson NP [address] [place], [place] [id number] Cardiology 02/29/24 documented as of this encounter
--- OUTSIDE RECORDS SUMMARY | 2024-08-31 15:02 | XMS_ITS | Encounter Summary ---
Author Organization [facility] Address [address] [place] [address] Care Team Providers Care Supervisor [address] Name Role Phone Brett Velásquez MD Primary Care Provider Reilly Stewart MD, PHD Unavailable Unava Brett Villegas MD Primary Care Provider Wayne Dickson Primary Care Provider [phone] Dafne Hilton MD Unavailable [phone] Desi Swenson NP Unavailable [phone] Encounter Details Date Type Department Care Team Description 06/25/2020 Goldbeater Report Medical Records [address] [place] [address] Zuleika Baez PA-C Social History Tobacco Use Types Packs/Day Years [...] have Coronavirus / COVID-19? No / Unsure 06/24/2020 2:45 PM EST documented as of this encounter Plan of Treatment Upcoming Encounters Date Type Specialty Care Team Description 04/29/2027 Goldbeater Report Abstract, Provider documented as of this encounter Visit Diagnoses Not on filedocumented in this encounter Care Teams Supervisor [address] Relationship Specialty Start Date End Date Brett Velásquez MD PCP - General Internal Medicine 04/21/16 01/25/22 Brett Velásquez MD PCP - General Internal Medicine 01/26/22 02/15/22 Wayne Jaimes [address] [place] [address] PCP - General Internal Medicine 02/16/22 Reilly Baker MD, PHD Surgeon Neurosurgery 01/20/22 Dafne Hilton MD [address] [place] [address] Specialist Cardiology 10/13/22 Desi Swenson NP [address] [place] [address] Cardiology 02/29/24 documented as of this encounter
--- OUTSIDE RECORDS SUMMARY | 2024-08-31 15:02 | XMS_ITS | Encounter Summary ---
Author Organization [facility] Address [address] [place] [address] Care Team Providers Care Structural Engineering Project Manager Name Role Phone Reilly Baker MD, PHD Unavailable Unava ilable Wayne Jaimes Primary Care Provider [phone] Dafne Hilton MD Unavailable [phone] Desi Swenson NP Unavailable [phone] Encounter Details Date Type Department Care Team Description 02/18/2022 Hospital Medical Records [address] [place] [address] Yuliana Auguste MD [address] [place] [address] Social History Tobacco Use Types Packs/Day Years [...] suspected to have Coronavirus/COVID-19? No / Unsure 02/19/2022 1:21 PM EDT documented as of this encounter Plan of Treatment Upcoming Encounters Date Type Specialty Care Team Description 04/29/2027 Shower Enclosure Installer Report Abstract, Provider documented as of this encounter Visit Diagnoses Not on filedocumented in this encounter Care Teams Structural Engineering Project Manager Relationship Specialty Start Date End Date Wayne Jaimes [address] [place] [address] PCP - General Internal Medicine 02/16/22 Reilly Baker MD, PHD Surgeon Neurosurgery 01/20/22 Dafne Hilton MD [address] [place] [address] Specialist Cardiology 10/13/22 Desi Swenson NP [address] [place] [address] Cardiology 02/29/24 documented as of this encounter
--- OUTSIDE RECORDS SUMMARY | 2024-08-31 15:02 | XMS_ITS | Encounter Summary ---
Author Organization [facility] Address [address] [place] [address] Care Team Providers Care Charging Operator Name Role Phone Brett Velásquez MD Primary Care Provider Reilly Stewart MD, PHD Unavailable Unava Brett Villegas MD Primary Care Provider Wayne Dickson Primary Care Provider [phone] Dafne Hilton MD Unavailable [phone] Desi Swenson NP Unavailable [phone] Encounter Details Date Type Department Care Team Description 11/05/2020 [facility] Medical Records [address] [place] [address] Vladislav Antunez DO Social History Tobacco Use [...] Date Type Specialty Care Team Description 04/29/2027 Urgent Care Nurse Practitioner Report Abstract, Provider documented as of this encounter Visit Diagnoses Not on filedocumented in this encounter Care Teams Charging Operator Relationship Specialty Start Date End Date Brett Velásquez MD PCP - General Internal Medicine 04/21/16 01/25/22 Brett Velásquez MD PCP - General Internal Medicine 01/26/22 02/15/22 Wayne Jaimes [address] [place] [address] PCP - General Internal Medicine 02/16/22 Reilly Baker MD, PHD Surgeon Neurosurgery 01/20/22 Dafne Hilton MD [address] [place] [address] Specialist Cardiology 10/13/22 Desi Swenson NP [address] [place] [address] Cardiology 02/29/24 documented as of this encounter
--- OUTSIDE RECORDS SUMMARY | 2024-08-31 15:02 | XMS_ITS | Encounter Summary ---
Author Organization [facility] Address [address] [place] [address] Care Team Providers Care Manager Camp Name Role Phone Brett Velásquez MD Primary Care Provider Reilly Stewart MD, PHD Unavailable Unava ilBrett Bailon MD Primary Care Provider Wayne Dickson Primary Care Provider [phone] Dafne Hilton MD Unavailable [phone] Desi Swenson NP Unavailable Encounter Details Date Type Department Care Team Description 12/14/2017 Rental Car Deliverer Report Medical Records [address] [place] [address] Rehab., Tien Social History Tobacco Use Types Packs/Day Years [...] Date Type Specialty Care Team Description 04/29/2027 Rental Car Deliverer Report Abstract, Provider documented as of this encounter Visit Diagnoses Not on filedocumented in this encounter Care Teams Manager Camp Relationship Specialty Start Date End Date Brett Velásquez MD PCP - General Internal Medicine 04/21/16 01/25/22 Brett Velásquez MD PCP - General Internal Medicine 01/26/22 02/15/22 Wayne Jaimes [address] [place] [address] PCP - General Internal Medicine 02/16/22 Reilly Baker MD, PHD Surgeon Neurosurgery 01/20/22 Dafne Hilton MD [address] [place] [address] Specialist Cardiology 10/13/22 Desi Swenson NP [address] [place] [address] Cardiology 02/29/24 documented as of this encounter
--- OUTSIDE RECORDS SUMMARY | 2024-08-31 15:02 | XMS_ITS | Encounter Summary ---
Author Organization [facility] Address [address] [place] [address] Care Team Providers Care District Branch Manager Name Role Phone Reilly Baker MD, PHD Unavailable Unava ilWayne Osborne Primary Care Provider [phone] Dafne Hilton MD Unavailable [phone] Desi Swenson NP Unavailable [phone] Encounter Details Date Type Department Care Team Description 09/14/2022 Refill Nephrology - [place] [address] [place] [address] Eduard Mccormick MD [address] [place] [address] Social History Tobacco Use Types Packs/Day Years [...] suspected to have Coronavirus/COVID-19? No / Unsure 09/03/2022 1:34 PM EST documented as of this encounter Plan of Treatment Upcoming Encounters Date Type Specialty Care Team Description 04/29/2027 Sock Knitting Machine Operator Report Abstract, Provider documented as of this encounter Visit Diagnoses Not on filedocumented in this encounter Care Teams District Branch Manager Relationship Specialty Start Date End Date Wayne Jaimes Delmer [address] [place] [address] PCP - General Internal Medicine 02/16/22 Reilly Baker MD, PHD Surgeon Neurosurgery 01/20/22 Dafne Hilton MD [address] [place] [address] Specialist Cardiology 10/13/22 Desi Swenson NP [address] [place], [place] [id number] Cardiology 02/29/24 documented as of this encounter
--- OUTSIDE RECORDS SUMMARY | 2024-08-31 15:02 | XMS_ITS | Encounter Summary ---
Author Organization [facility] Address [address] [place] [address] Care Team Providers Care Lithographic Retoucher Apprentice Name Role Phone Brett Velásquez MD Primary Care Provider Reilly Stewart MD, PHD Unavailable Unava Brett Villegas MD Primary Care Provider Wayne Dickson Primary Care Provider [phone] Dafne Hilton MD Unavailable [phone] Desi Swenson NP Unavailable [phone] Encounter Details Date Type Department Care Team Description 11/18/2020 Mailroom Supervisor Report Medical Records [address] [place] [address] Desi Li DPM Social History Tobacco Use Types Packs/Day Years [...] have Coronavirus / COVID-19? No / Unsure 11/21/2020 8:07 AM EDT documented as of this encounter Plan of Treatment Upcoming Encounters Date Type Specialty Care Team Description 04/29/2027 Mailroom Supervisor Report Abstract, Provider documented as of this encounter Visit Diagnoses Not on filedocumented in this encounter Care Teams Lithographic Retoucher Apprentice Relationship Specialty Start Date End Date Brett Velásquez MD PCP - General Internal Medicine 04/21/16 01/25/22 Brett Velásquez MD PCP - General Internal Medicine 01/26/22 02/15/22 Wayne Jaimes [address] [place] [address] PCP - General Internal Medicine 02/16/22 Reilly Baker MD, PHD Surgeon Neurosurgery 01/20/22 Dafne Hilton MD [address] [place] [address] Specialist Cardiology 10/13/22 Desi Swenson NP [address] [place] [address] Cardiology 02/29/24 documented as of this encounter
--- OUTSIDE RECORDS SUMMARY | 2024-08-31 15:02 | XMS_ITS | Encounter Summary ---
Author Organization [facility] Address [address] [place] [address] Care Team Providers Care Haul Cane Brakeman Name Role Phone Brett Velásquez MD Primary Care Provider Reilly Stewart MD, PHD Unavailable Unava ilBrett Bailon MD Primary Care Provider Wayne Dickson Primary Care Provider [phone] Dafne Hilton MD Unavailable [phone] Desi Swenson NP Unavailable [phone] Encounter Details Date Type Department Care Team Description 03/11/2018 Release of Information Medical Records [address] [place] [address] Abstract, Provider Social History Tobacco Use Types [...] Date Type Specialty Care Team Description 04/29/2027 Theater Company Producer Report Abstract, Provider documented as of this encounter Visit Diagnoses Not on filedocumented in this encounter Care Teams Haul Cane Brakeman Relationship Specialty Start Date End Date Brett Velásquez MD PCP - General Internal Medicine 04/21/16 01/25/22 Brett Velásquez MD PCP - General Internal Medicine 01/26/22 02/15/22 Wayne Jaimes [address] [place] [address] PCP - General Internal Medicine 02/16/22 Reilly Baker MD, PHD Surgeon Neurosurgery 01/20/22 Dafne Hilton MD [address] [place] [address] Specialist Cardiology 10/13/22 Desi Swenson NP [address] [place] [address] Cardiology 02/29/24 documented as of this encounter
--- OUTSIDE RECORDS SUMMARY | 2024-08-31 15:02 | XMS_ITS | Encounter Summary ---
Author Organization [facility] Address [address] [place] [address] Care Team Providers Care Legal Recovery Specialist Name Role Phone Reilly Baker MD, PHD Unavailable Unava ilable Wayne Jaimes Primary Care Provider [phone] Dafne Hilton MD Unavailable [phone] Desi Swenson NP Unavailable [phone] Encounter Details Date Type Department Care Team Description 01/04/2023 Hospital Medical Records [address] [place] [address] Vladislav Antunez DO Social History Tobacco Use [...] suspected to have Coronavirus/COVID-19? No / Unsure 12/31/2022 8:26 AM EDT documented as of this encounter Plan of Treatment Upcoming Encounters Date Type Specialty Care Team Description 04/29/2027 Ornamental Metal Erector Apprentice Report Abstract, Provider documented as of this encounter Visit Diagnoses Not on filedocumented in this encounter Care Teams Legal Recovery Specialist Relationship Specialty Start Date End Date Wayne Jaimes [address] [place] [address] PCP - General Internal Medicine 02/16/22 Reilly Baker MD, PHD Surgeon Neurosurgery 01/20/22 Dafne Hilton MD [address] [place] [address] Specialist Cardiology 10/13/22 Desi Swenson NP [address] [place], [place] [phone] Cardiology 02/29/24 documented as of this encounter
--- OUTSIDE RECORDS SUMMARY | 2024-08-31 15:02 | XMS_ITS | Encounter Summary ---
Author Organization [facility] Address [address] [place] [address] Care Team Providers Care Stabber Name Role Phone Reilly Baker MD, PHD Unavailable Unava ilable Wayne Jaimes Primary Care Provider [phone] Dafne Hilton MD Unavailable [phone] Desi Swenson NP Unavailable [phone] Encounter Details Date Type Department Care Team Description 10/12/2022 Walk In Clinic Visit Medical Records [address] [place] [address] Clinic, [facility] Walk-In [address] [place] [address] Social History Tobacco Use Types Packs/Day Years [...] suspected to have Coronavirus/COVID-19? No / Unsure 10/15/2022 1:41 PM EDT documented as of this encounter Plan of Treatment Upcoming Encounters Date Type Specialty Care Team Description 04/29/2027 Cafeteria Monitor Report Abstract, Provider documented as of this encounter Visit Diagnoses Not on filedocumented in this encounter Care Teams Stabber Relationship Specialty Start Date End Date Wayne Jaimes [address] [place] [address] PCP - General Internal Medicine 02/16/22 Reilly Baker MD, PHD Surgeon Neurosurgery 01/20/22 Dafne Hilton MD [address] [place] [address] Specialist Cardiology 10/13/22 Desi Swenson NP [address] [place] [address] Cardiology 02/29/24 documented as of this encounter
--- OUTSIDE RECORDS SUMMARY | 2024-08-31 15:02 | XMS_ITS | Encounter Summary ---
Author Organization [facility] Address [address] [place] [address] Care Team Providers Care Assistant Manager Name Role Phone Reilly Baker MD, PHD Unavailable Unava ilable Wayne Jaimes Primary Care Provider [phone] Dafne Hilton MD Unavailable [phone] Desi Swenson NP Unavailable [phone] Encounter Details Date Type Department Care Team Description 09/30/2022 Night Warehouse Selector Report Medical Records [address] [place] [address] Social History Tobacco Use Types Packs/Day Years [...] suspected to have Coronavirus/COVID-19? No / Unsure 09/28/2022 1:43 PM EDT documented as of this encounter Plan of Treatment Upcoming Encounters Date Type Specialty Care Team Description 04/29/2027 Night Warehouse Selector Report Abstract, Provider documented as of this encounter Visit Diagnoses Not on filedocumented in this encounter Care Teams Assistant Manager Relationship Specialty Start Date End Date Wayne Jaimes [address] [place] [address] PCP - General Internal Medicine 02/16/22 Reilly Baker MD, PHD Surgeon Neurosurgery 01/20/22 Dafne Hilton MD [address] [place] [address] Specialist Cardiology 10/13/22 Desi Swenson NP [address] [place] [address] Cardiology 02/29/24 documented as of this encounter
--- OUTSIDE RECORDS SUMMARY | 2024-08-31 15:02 | XMS_ITS | Encounter Summary ---
Author Organization [facility] Address [address] [place] [address] Care Team Providers Care Terminal Supervisor Name Role Phone Brett Velásquez MD Primary Care Provider Reilly Stewart MD, PHD Unavailable UnaBrett Davis MD Primary Care Provider Wayne Dickson Primary Care Provider [phone] Dafne Hilton MD Unavailable [phone] Desi Swenson NP Unavailable [phone] Encounter Details Date Type Department Care Team Description 04/23/2020 [facility] Medical Records [address] [place] [address] Vladislav Antunez DO Social History Tobacco Use [...] have Coronavirus / COVID-19? No / Unsure 04/22/2020 2:12 PM EDT documented as of this encounter Plan of Treatment Upcoming Encounters Date Type Specialty Care Team Description 04/29/2027 Military Science Instructor Report Abstract, Provider documented as of this encounter Visit Diagnoses Not on filedocumented in this encounter Care Teams Terminal Supervisor Relationship Specialty Start Date End Date Brett Velásquez MD PCP - General Internal Medicine 04/21/16 01/25/22 Jacinta Velásquez-MD Kye PCP - General Internal Medicine 01/26/22 02/15/22 Wayne Jaimes [address] [place] [address] PCP - General Internal Medicine 02/16/22 Reilly Baker MD, PHD Surgeon Neurosurgery 01/20/22 Dafne Hilton MD [address] [place] [address] Specialist Cardiology 10/13/22 Desi Swenson NP [address] [place] [address] Cardiology 02/29/24 documented as of this encounter
--- OUTSIDE RECORDS SUMMARY | 2024-08-31 15:02 | XMS_ITS | Encounter Summary ---
Author Organization [facility] Address [address] [place] [address] Care Team Providers Care Fabric Stretcher Name Role Phone Brett Velásquez MD Primary Care Provider Reilly Stewart MD, PHD Unavailable Unava ilBrett Bailon MD Primary Care Provider Wayne Dickson Primary Care Provider [phone] Dafne Hilton MD Unavailable [phone] Desi Swenson NP Unavailable [phone] Encounter Details Date Type Department Care Team Description 03/08/2018 Hand I Thermal Cutter Report Medical Records [address] [place] [address] Rehab., Tien Social History Tobacco Use Types [...] Type Specialty Care Team Description 04/29/2027 Hand I Thermal Cutter Report Abstract, Provider documented as of this encounter Visit Diagnoses Not on filedocumented in this encounter Care Teams Fabric Stretcher Relationship Specialty Start Date End Date Brett Velásquez MD PCP - General Internal Medicine 04/21/16 01/25/22 Brett Velásquez MD PCP - General Internal Medicine 01/26/22 02/15/22 Wayne Jaimes [address] [place] [address] PCP - General Internal Medicine 02/16/22 Reilly Baker MD, PHD Surgeon Neurosurgery 01/20/22 Dafne Hilton MD [address] [place] [address] Specialist Cardiology 10/13/22 Desi Swenson NP [address] [place] [address] Cardiology 02/29/24 documented as of this encounter
--- OUTSIDE RECORDS SUMMARY | 2024-08-31 15:02 | XMS_ITS | Encounter Summary ---
Author Organization [facility] Address [address] [place] [address] Care Team Providers Care Special Projects Manager Name Role Phone Brett Velásquez MD Primary Care Provider Keisha Luna MD Primary Care Provider [phone] Brett Velásquez MD Primary Care Provider Relily Stewart MD, PHD Unavailable Unava ilable Brett Velásquez MD Primary Care Provider Wayne Dickson Primary Care Provider [phone] Dafne Hilton MD Unavailable [phone] Desi Swenson NP Unavailable [phone] Encounter Details Date Type Department Care Team Description 10/11/2012 Plug Stitcher Report Medical Records [address] [place] [address] Kareem Grier PA-C Social History Tobacco Use Types Packs/Day [...] Date Type Specialty Care Team Description 04/29/2027 Plug Stitcher Report Abstract, Provider documented as of this encounter Visit Diagnoses Not on filedocumented in this encounter Care Teams Special Projects Manager Relationship Specialty Start Date End Date Brett Velásqeuz MD PCP - General Internal Medicine 10/29/11 06/19/15 Keisha Chavez MD [address] [place] [address] PCP - General Internal Medicine 06/20/15 04/20/16 Brett Velásquez MD PCP - General Internal Medicine 04/21/16 01/25/22 Brett Velásquez MD PCP - General Internal Medicine 01/26/22 02/15/22 Wayne Jaimes [address] [place] [address] PCP - General Internal Medicine 02/16/22 Reilly Baker MD, PHD [address] [place] [address] Surgeon Neurosurgery 01/20/22 Dafne Hilton MD [address] [place] [address] Specialist Cardiology 10/13/22 Desi Swenson NP [address] [place] [address] Cardiology 02/29/24 documented as of this encounter
--- OUTSIDE RECORDS SUMMARY | 2024-08-31 15:02 | XMS_ITS | Encounter Summary ---
Author Organization [facility] Address [address] [place] [address] Care Team Providers Care Industrial Technologist Name Role Phone Brett Velásquez MD Primary Care Provider Keisha Luna MD Primary Care Provider [phone] Brett Velásquez MD Primary Care Provider Reilly Stewart MD, PHD Unavailable Unava ilable Brett Velásquez MD Primary Care Provider Wayne Dickson Primary Care Provider [phone] Dafne Hilton MD Unavailable [phone] Desi Swenson NP Unavailable [phone] Encounter Details Date Type Department Care Team Description 01/04/2013 Phone Screener Report Medical Records [address] [place] [address] Iron Barnett Social History Tobacco Use Types Packs/Day Years [...] Date Type Specialty Care Team Description 04/29/2027 Phone Screener Report Abstract, Provider documented as of this encounter Visit Diagnoses Not on filedocumented in this encounter Care Teams Industrial Technologist Relationship Specialty Start Date End Date Brett Velásquez MD PCP - General Internal Medicine 10/29/11 06/19/15 Keisha Chavez MD [address] [place] [address] PCP - General Internal Medicine 06/20/15 04/20/16 Brett Velásquez MD PCP - General Internal Medicine 04/21/16 01/25/22 Brett Velásquez MD PCP - General Internal Medicine 01/26/22 02/15/22 Wayne Jaimes [address] [place], [place] [address] PCP - General Internal Medicine 02/16/22 Reilly Baker MD, PHD [address] [place] [address] Surgeon Neurosurgery 01/20/22 Dafne Hilton MD [address] [place] [address] Specialist Cardiology 10/13/22 Desi Swenson NP [address] [place] [address] Cardiology 02/29/24 documented as of this encounter
--- OUTSIDE RECORDS SUMMARY | 2024-08-31 15:02 | XMS_ITS | Encounter Summary ---
Author Organization [facility] Address [address] [place] [address] Care Team Providers Care Shoe Lining Fitter Name Role Phone Reilly Baker MD, PHD Unavailable Unava ilWayne Osborne Primary Care Provider [phone] Dafne Hilton MD Unavailable [phone] Desi Swenson NP Unavailable [phone] Encounter Details Date Type Department Care Team Description 02/23/2022 Orders Only Medical Records [address] [place] [address] Yuliana Auguste MD [address] [place] [address] Social History Tobacco Use Types Packs/Day Years [...] suspected to have Coronavirus/COVID-19? No / Unsure 02/24/2022 9:57 AM EDT documented as of this encounter Progress Notes * Ghislaine Auguste MD - 03/08/2022 6:02 PM EDT Dear Mr. Lewis,The gastric biopsies taken during the endoscopy show mild inflammation which may have been caused by irritants. These irritants are such as gastric acid, bile, nonsteroidal medications example ibuprofen, Aleve, caffeine, nicotine or alcohol. Please try to avoid these irritants as much as possible. You may also use an zspo-nte-xyahinc acid reducing agent such as Pepcid, Tums, omeprazole etc. when necessary.I would like to personally thank you for allowing us to take care of you. Please don't hesitate to call us for any questions or concerns. Regards, Vivek Auguste MD Board Certified Gastroenterology and Internal Medicine Transplant Hepatology [facility] documented in this encounter Plan of Treatment Upcoming Encounters Date Type Specialty Care Team Description 04/29/2027 Asset Protection Manager Report Abstract, Provider documented as of this encounter Procedures Procedure Name Priority Date/Time Associated Diagnosis Comments OUTSIDE PATHOLOGY Routine 02/18/2022 documented in this encounter Results * OUTSIDE PATHOLOGY (02/18/2022) Yuliana Auguste MD OUTSIDE LAB documented in this encounter Visit Diagnoses Not on filedocumented in this encounter Care Teams Shoe Lining Fitter Relationship Specialty Start Date End Date Jose M Jaimesgil Dowell [address] [place] [address] PCP - General Internal Medicine 02/16/22 Reilly Baker MD, PHD Surgeon Neurosurgery 01/20/22 Dafne Hilton MD [address] [place] [address] Specialist Cardiology 10/13/22 Desi Swenson NP [address] [place] [address] Cardiology 02/29/24 documented as of this encounter
--- OUTSIDE RECORDS SUMMARY | 2024-08-31 15:02 | XMS_ITS | Encounter Summary ---
Author Organization [facility] Address [address] [place] [address] Care Team Providers Care Director Child Name Role Phone Brett Velásquez MD Primary Care Provider Reilly Stewart MD, PHD Unavailable Unava Brett Villegas MD Primary Care Provider Wayne Dickson Primary Care Provider [phone] Dafne Hilton MD Unavailable [phone] Desi Swenson NP Unavailable [phone] Encounter Details Date Type Department Care Team Description 04/12/2020 Induction Heat Treater Report Medical Records [address] [place] [address] Ankita Mckeon NP Social History Tobacco Use Types [...] have Coronavirus / COVID-19? No / Unsure 04/09/2020 8:39 AM EDT documented as of this encounter Plan of Treatment Upcoming Encounters Date Type Specialty Care Team Description 04/29/2027 Induction Heat Treater Report Abstract, Provider documented as of this encounter Visit Diagnoses Not on filedocumented in this encounter Care Teams Director Child Relationship Specialty Start Date End Date Brett Velásquez MD PCP - General Internal Medicine 04/21/16 01/25/22 Brett Velásquez MD PCP - General Internal Medicine 01/26/22 02/15/22 Wayne Jaimes [address] [place] [address] PCP - General Internal Medicine 02/16/22 Reilly Baker MD, PHD Surgeon Neurosurgery 01/20/22 Dafne Hilton MD [address] [place] [address] Specialist Cardiology 10/13/22 Desi Swenson NP [address] [place] [address] Cardiology 02/29/24 documented as of this encounter
--- OUTSIDE RECORDS SUMMARY | 2024-08-31 15:02 | XMS_ITS | Encounter Summary ---
Author Organization [facility] Address [address] [place] [address] Care Team Providers Care Associate Director Career Services Name Role Phone Reilly Baker MD, PHD Unavailable Unava ilable Wayne Jaimes Primary Care Provider [phone] Dafne Hilton MD Unavailable [phone] Desi Swenson NP Unavailable [phone] Encounter Details Date Type Department Care Team Description 01/04/2023 Walk In Clinic Visit Medical Records [address] [place] [address] Clinic, [facility] Walk-In [address] [place] [address] Social History Tobacco Use Types Packs/Day Years [...] Date Type Specialty Care Team Description 04/29/2027 Global Position System Technician Report Abstract, Provider documented as of this encounter Visit Diagnoses Not on filedocumented in this encounter Care Teams Associate Director Career Services Relationship Specialty Start Date End Date Wayne Jaimes [address] [place] [address] PCP - General Internal Medicine 02/16/22 Reilly Baker MD, PHD Surgeon Neurosurgery 01/20/22 Dafne Hilton MD [address] [place] [address] Specialist Cardiology 10/13/22 Desi Swenson NP [address] [place] [address] Cardiology 02/29/24 documented as of this encounter
--- OUTSIDE RECORDS SUMMARY | 2024-08-31 15:02 | XMS_ITS | Encounter Summary ---
Author Organization [facility] Address [address] [place] [address] Care Team Providers Care Plant Maintenance Technician Name Role Phone Reilly Baker MD, PHD Unavailable Unava ilWayne Osborne Primary Care Provider Dafne Hilton MD Unavailable [phone] Desi Swenson NP Unavailable [phone] Encounter Details Date Type Department Care Team Description 04/01/2022 SCAN [facility] [address] [facility] [address] [place] [address] Ena Whipple PA-C [address] [address] Social History Tobacco Use Types Packs/Day Years [...] suspected to have Coronavirus/COVID-19? No / Unsure 03/25/2022 2:06 PM EDT documented as of this encounter Plan of Treatment Upcoming Encounters Date Type Specialty Care Team Description 04/29/2027 Signal Operator Linguist Report Abstract, Provider documented as of this encounter Visit Diagnoses Not on filedocumented in this encounter Care Teams Plant Maintenance Technician Relationship Specialty Start Date End Date Wayne Jaimes [address] [place] [address] PCP - General Internal Medicine 02/16/22 Reilly Baker MD, PHD Surgeon Neurosurgery 01/20/22 Dafne Hilton MD [address] [place] [address] Specialist Cardiology 10/13/22 Desi Swenson NP [address] [place], [place] [id number] Cardiology 02/29/24 documented as of this encounter
--- OUTSIDE RECORDS SUMMARY | 2024-08-31 15:02 | XMS_ITS | Encounter Summary ---
Author Organization [facility] Address [address] [place] [address] Care Team Providers Care Furnace Process Supervisor Name Role Phone Reilly Baker MD, PHD Unavailable Brett España MD Primary Care Provider Wayne Dickson Primary Care Provider [phone] Dafne Hilton MD Unavailable [phone] Desi Swenson NP Unavailable [phone] Encounter Details Date Type Department Care Team Description 01/26/2022 Orders Only Adult Medicine [address] [address] Brett Velásquez MD Preoperative examination; Screening for deficiency anemia Social History Tobacco Use Types Packs/Day Years [...] suspected to have Coronavirus/COVID-19? No / Unsure 01/19/2022 2:40 PM EDT documented as of this encounter Plan of Treatment Upcoming Encounters Date Type Specialty Care Team Description 04/29/2027 Instrumentation Instructor Report Abstract, Provider documented as of this encounter Results * BASIC METABOLIC PANEL (02/19/2022 1:21 PM EDT) Pathologist [facility] GLOMERULAR FILTRATION RATE > 60 02/19/2022 5:28 PM EDT [facility] Comment: If patient is -[place] Citizen, multiply result by 1.21 Chronic Kidney Disease: < 60 ml/min/1.73 square meters Kidney Failure: < 15 ml/min/1.73 square meters GLUCOSE 96 70 - 100 mg/dL 02/19/2022 5:28 PM EDT [facility] Comment:Reference range appl icable to fasting specimens only Blood Urea Nitrogen 11 5 - 25 mg/dL 02/19/2022 5:28 PM EDT [facility] CREAT 0.97 0.7 - 1.3 mg/dL 02/19/2022 5:28 PM EDT [facility] NA 139 135 - 145 mEq/L 02/19/2022 5:29 PM EDT [facility] K 4.2 3.5 - 5.5 mmol/L 02/19/2022 5:29 PM EDT [facility] CL 104 96 - 110 mmol/L 02/19/2022 5:29 PM EDT [facility] CARBON DIOXIDE (CO2) 29 21 - 32 mmol/L 02/19/2022 5:29 PM EDT [facility] ANION GAP 6 3 - 11 02/19/2022 5:29 PM EDT [facility] CALCIUM 9.1 8.5 - 10.5 mg/dL 02/19/2022 5:29 PM EDT [facility] 02/19/2022 1:21 PM EDT 02/19/2022 1:23 PM EDT Narrative [facility] - 02/19/2022 5:28 PM EDT Release to patient->Immediate Brett Velásquez MD LAB [facility] * CBC (AUTO DIFF PLATELET) (02/19/2022 1:21 PM EDT) Pathologist [facility] WHITE BLOOD COUNT 6.9 4.8 - 10.8 x10-3/uL 02/19/2022 4:32 PM EDT [facility] RED BLOOD COUNT 5.1 4.5 - 5.5 x10-6/uL 02/19/2022 4:32 PM EDT [facility] Hemoglobin 15.3 13.5 - 17.5 g/dL 02/19/2022 4:32 PM EDT [facility] Hematocrit 45.7 42 - 54 % 02/19/2022 4:32 PM EDT [facility] MEAN CORPUSCULAR VOLUME 89.1 79 - 98 fL 02/19/2022 4:32 PM EDT [facility] MEAN CORPUSCULAR HEMOGLOBIN 29.8 27 - 32 pg 02/19/2022 4:32 PM EDT [facility] MEAN CORPUSCULAR HGB CONC 33.5 32 - 37 g/dL 02/19/2022 4:32 PM EDT [facility] RED CELL DISTRIBUTION WIDTH 11.8 11 - 15 % 02/19/2022 4:32 PM EDT [facility] PLT COUNT 221 130 - 400 x10-3/uL 02/19/2022 4:32 PM EDT [facility] MEAN PLATELET VOLUME 9.2 7 - 11 fL 02/19/2022 4:32 PM EDT [facility] NRBC % AUTO 0.0 <1 % 02/19/2022 4:32 PM EDT [facility] NEUTROPHILS % 66.7 % 02/19/2022 4:32 PM EDT [facility] LYMPH % 24.5 % 02/19/2022 4:32 PM EDT [facility] MONO % 7.8 % 02/19/2022 4:32 PM EDT [facility] EOS % 0.4 % 02/19/2022 4:32 PM EDT [facility] BASO % 0.3 % 02/19/2022 4:32 PM EDT [facility] IMMATURE GRANULOCYTES % 0.3 % 02/19/2022 4:32 PM EDT [facility] NRBC # AUTO 0.00 <0.1 x10-3/uL 02/19/2022 4:32 PM EDT [facility] NEUT # 4.62 1.5 - 7.0 x10-3/uL 02/19/2022 4:32 PM EDT [facility] LYMPH # 1.70 1 - 5.0 x10-3/uL 02/19/2022 4:32 PM EDT [facility] MONO # 0.54 0.2 - 1.0 x10-3/uL 02/19/2022 4:32 PM EDT [facility] EOS # 0.03 0 - 0.5 x10-3/uL 02/19/2022 4:32 PM EDT [facility] BASO # 0.02 0 - 0.2 x10-3/uL 02/19/2022 4:32 PM EDT [facility] IMMATURE GRANULOCYTES # 0.02 0 - 0.03 x10-3/uL 02/19/2022 4:32 PM EDT [facility] 02/19/2022 1:21 PM EDT 02/19/2022 1:23 PM EDT Narrative [facility] - 02/19/2022 4:32 PM EDT Release to patient->Immediate Brett Velásquez MD LAB Performing Organization Address City/State/[facility] Co de Phone Number [facility] documented in this encounter Visit Diagnoses Diagnosis Preoperative examination Preoperative examination, unspecified Screening for deficiency anemia Screening for other and unspecified deficiency anemia Isolated proteinuria with other morphologic lesion documented in this encounter Care Teams Furnace Process Supervisor Relationship Specialty Start Date End Date Brett Velásquez MD PCP - General Internal Medicine 01/26/22 02/15/22 Wayne Jaimes [address] [place] [address] PCP - General Internal Medicine 02/16/22 Reilly Baker MD, PHD Surgeon Neurosurgery 01/20/22 Dafne Hilton MD [address] [place] [address] Specialist Cardiology 10/13/22 Desi Swenson NP [address] [place] [address] Cardiology 02/29/24 documented as of this encounter
--- OUTSIDE RECORDS SUMMARY | 2024-08-31 15:02 | XMS_ITS | Encounter Summary ---
Author Organization [facility] Address [address] [place] [address] Care Team Providers Care Cinder Block Maker Name Role Phone Brett Velásquez MD Primary Care Provider Reilly Stewart MD, PHD Unavailable Unava Brett Villegas MD Primary Care Provider Wayne Dickson Primary Care Provider [phone] Dafne Hilton MD Unavailable [phone] Desi Swenson NP Unavailable [phone] Encounter Details Date Type Department Care Team Description 02/26/2020 Director Clinical Data Report Medical Records [address] [place] [address] Ankita Mckeon NP Social History Tobacco Use [...] Type Specialty Care Team Description 04/29/2027 Director Clinical Data Report Abstract, Provider documented as of this encounter Visit Diagnoses Not on filedocumented in this encounter Care Teams Cinder Block Maker Relationship Specialty Start Date End Date Brett Velásquez MD PCP - General Internal Medicine 04/21/16 01/25/22 Brett Velásquez MD PCP - General Internal Medicine 01/26/22 02/15/22 Wayne Jaimes [address] [place] [address] PCP - General Internal Medicine 02/16/22 Reilly Baker MD, PHD Surgeon Neurosurgery 01/20/22 Dafne Hilton MD [address] [place] [address] Specialist Cardiology 10/13/22 Desi Swenson NP [address] [place] [address] Cardiology 02/29/24 documented as of this encounter
--- OUTSIDE RECORDS SUMMARY | 2024-08-31 15:02 | XMS_ITS | Encounter Summary ---
Author Organization [facility] Address [address] [place] [address] Care Team Providers Care Tire Vulcanizer Name Role Phone Brett Velásquez MD Primary Care Provider Reilly Stewart MD, PHD Unavailable Unawy Brett Villegas MD Primary Care Provider Wanye Dickson Primary Care Provider [phone] Dafne Hilton MD Unavailable [phone] Desi Swenson NP Unavailable [phone] Encounter Details Date Type Department Care Team Description 12/08/2017 Pure Culture Operator Report Medical Records [address] [place] [address] Mahsa Oreilly PA Social History Tobacco Use Types Packs/Day Years [...] Date Type Specialty Care Team Description 04/29/2027 Pure Culture Operator Report Abstract, Provider documented as of this encounter Visit Diagnoses Not on filedocumented in this encounter Care Teams Tire Vulcanizer Relationship Specialty Start Date End Date Brett Velásquez MD PCP - General Internal Medicine 04/21/16 01/25/22 Brett Velásquez MD PCP - General Internal Medicine 01/26/22 02/15/22 Wayne Jaimes [address] [place] [address] PCP - General Internal Medicine 02/16/22 Reilly Baker MD, PHD Surgeon Neurosurgery 01/20/22 Dafne Hilton MD [address] [place] [address] Specialist Cardiology 10/13/22 Desi Swenson NP [address] [place] [address] Cardiology 02/29/24 documented as of this encounter
--- OUTSIDE RECORDS SUMMARY | 2024-08-31 15:02 | XMS_ITS ---
Author Organization [facility] Address [address] [facility] [address] [place] [address] Care Team Providers Care State Historical Society Director Name Role Phone Wayne Jaimes MD Primary Care Provider DESI Burks Unavailable [phone] Allergies No Known Allergies REASON FOR VISIT [...] Not-Taking Diclofenac Sodium 1 % as directed Orange Peel Operator ally place 1 g onto the skin [...] as needed Orally Once a day Active Problems Problem Type SNOMED Code ICD Code Onset Dates Problem Status W/U Status Risk Notes Problem Lumbar radiculopathy (512365332) Lumbar radiculopat hy, right (M54.16) Active confirmed Procedures Procedure Date Ordered Date Performed Result Body Sit e DRAIN/INJECT, SMALL JOINT/BURSA 04/10/2024 N/A Encounters Encounter Location Date Provider Diagnosis [facility] [address] [address] 04/10/2024 DESI LI Onychomycosis B35.1 ; Calcium pyrophosphate deposition disease (CPPD) M11.20 ; Psoriasis L40.9 ; Hallux limitus of left foot M20.5X2 ; Hallux limitus of right foot M20.5X1 ; Lumbar radiculopathy, right M54.16 ; Achilles tendinitis, right leg M76.61 and Achilles tendinitis, left leg M76.62 Assessments Encounter Date Diagnosis (ICD Code) Assessment [...] Achilles tendinitis, left leg (ICD-10 - M76.62) Plan Of Treatment Medication Medication Name Sig Start Date Stop Date Notes Efinaconazole 10 % 1 application Orange Peel Operator ally Once a day for 90 days [...] Name:DESI LI, 10/11/2024 02:45:00 PM, [address], [address], Medications Administered Medication Instructions Date of Administration Dosage Notes dexAMETHasone Sod Phosphate PF 04/10/2024 0.5 m L Kenalog 04/10/2024 0.5 mL Progress Notes * Mckinley LEWISOB:1955 ([age] yo M)Acc No.[id number]:04/10/2024 Progress Note Patient:?Laina LEWIS Provider:?Desi Li DPM :1955???Age:68 Y???Sex:Male Nael e:04/10/2024 Address:[address] [place], [place] [id number] Pcp:Wayne Jaimes MD Subjective: * Chief Complaints: [...] Medical History:? * Surgical History:?Appendecto my colonoscopy C-hemorrhoids otherwise normal to the cecum colonoscopy -2 [...] a meal Orally once a day * Allergies:?N.K.D.A.no[Allerg ies Verified] Objective: * Examination: ???General Examination: ???GENERAL: Patient appears [...] bilaterally, protective sensation intact 10/10 with 5.07 [place] Alisha bilaterally, vibratory sensation with tuning fork [...] right foot - M20.5X1?6.?Lumbar radiculopathy, right - M54.16?7.?Achilles tendinitis, right leg - M76.61?8.?Achilles tendinitis, left leg - M76.62? Plan: * Treatment: 2.?Onychomycosis? Start Efinaconazole Solution, [...] to each affected toenail daily. ?? 3.?Psoriasis? Notes: We discussed that CPPD and psoriasis [...] the right 4th and 5th toes. ?? 7.?Achilles tendinitis, righ t leg? Notes: He has evidence of Achilles tendinitis [...] for bilateral night splints dispensed to the patient.?? * Procedures:?Procedure: The right foot was prepped [...] : 0.5 mL (Dose No:1) given by Francesca ALEXIS.P.M (Hallux limitus of right foot)??? Kenalog : 0.5 mL (Dose No:1) given by Jesús ALEXISP.M (Hallux limitus of right foot) * Procedure Codes:? DRAIN /INJECT, SMALL JOINT/BURSA, Modifiers: RT J1100 INJ DEXAMETHASONE SODIM PHOSHATE 1 [id number] INJ TRIAMCINOLONE ACETONIDE 10 MG * Follow Up:?3 Months * Billing Information: * Visit Code:? 19120 Office Visit, Est Pt., Level 4. Modifiers: 25 * Procedure Codes:? 92112 DRAIN/INJECT, SMALL JOINT/BURSA. Modifiers: RT J1100 INJ DEXAMETHASONE SODIM PHOSHATE 1 MG. J3301 INJ TRIAMCINOLONE ACETONIDE 10 MG. * Sign off status: Completed true * Provider:?Desi Li DPM Date:? 04/10/2024 Generated for Tatiana lema/Nilsa/Glo on:?08/31/2024 03:02 PM EST History and Physical Notes * [...] bilaterally, protective sensation intact 10/10 with 5.07 [place] Alisha bilaterally, vibratory sensation with tuning fork [...]
--- OUTSIDE RECORDS SUMMARY | 2024-08-31 15:02 | XMS_ITS | Encounter Summary ---
Author Organization [facility] Address [address] [place] [address] Care Team Providers Care Automated Weaver Name Role Phone Reilly Baker MD, PHD Unavailable Unava ilWayne Osborne Primary Care Provider Dafne Hilton MD Unavailable [phone] Desi Swenson NP Unavailable [phone] Encounter Details Date Type Department Care Team Description 03/18/2022 Telephone [facility] [address] [facility] [address] [place] [phone] Ena Whipple PA-C [address] [address] Social History Tobacco Use Types Packs/Day Years [...] suspected to have Coronavirus/COVID-19? No / Unsure 03/02/2022 1:19 PM EDT documented as of this encounter Plan of Treatment Upcoming Encounters Date Type Specialty Care Team Description 04/29/2027 Press Washer Report Abstract, Provider documented as of this encounter Visit Diagnoses Not on filedocumented in this encounter Care Teams Automated Weaver Relationship Specialty Start Date End Date Wayne Jaimes [address] [place] [address] PCP - General Internal Medicine 02/16/22 Reilly Baker MD, PHD Surgeon Neurosurgery 01/20/22 Dafne Hilton MD [address] [place] [address] Specialist Cardiology 10/13/22 Desi Swenson NP [address] [place], [place] [phone] Cardiology 02/29/24 documented as of this encounter
--- OUTSIDE RECORDS SUMMARY | 2024-08-31 15:03 | XMS_ITS | Encounter Summary ---
Author Organization [facility] Address [address] [place] [address] Care Team Providers Care Boring Inspector Name Role Phone Brett Velásquez MD Primary Care Provider Reilly Stewart MD, PHD Unavailable Unava ilBrett Bailon MD Primary Care Provider Wayne Dickson Primary Care Provider [phone] Dafne Hilton MD Unavailable [phone] Desi Swenson NP Unavailable [phone] Encounter Details Date Type Department Care Team Description 05/03/2018 Release of Information Medical Records [address] [place] [address] Abstract, Provider Social History Tobacco Use Types [...] Date Type Specialty Care Team Description 04/29/2027 Distribution Coordinator Report Abstract, Provider documented as of this encounter Visit Diagnoses Not on filedocumented in this encounter Care Teams Boring Inspector Relationship Specialty Start Date End Date Brett Velásquez MD PCP - General Internal Medicine 04/21/16 01/25/22 Brett Velásquez MD PCP - General Internal Medicine 01/26/22 02/15/22 Wayne Jaimes [address] [place] [address] PCP - General Internal Medicine 02/16/22 Reilly Baker MD, PHD Surgeon Neurosurgery 01/20/22 Dafne Hilton MD [address] [place] [address] Specialist Cardiology 10/13/22 Desi Swenson NP [address] [place] [address] Cardiology 02/29/24 documented as of this encounter
--- OUTSIDE RECORDS SUMMARY | 2024-08-31 15:03 | XMS_ITS | Encounter Summary ---
Author Organization [facility] Address [address] [place] [address] Care Team Providers Care Veneer Trimmer Name Role Phone Reilly Baker MD, PHD Unavailable Unava ilable Wayne Jaimes Primary Care Provider [phone] Dafne Hilton MD Unavailable [phone] Desi Swenson NP Unavailable [phone] Encounter Details Date Type Department Care Team Description 08/25/[address] [facility] Records [facility] [address] [facility] [address] [place] [address] Wen Herrmann NP [address] [facility] [place] [address] Social History Tobacco Use Types Packs/Day Years [...] Date Type Specialty Care Team Description 04/29/2027 Support Engineer Report Abstract, Provider documented as of this encounter Visit Diagnoses Not on filedocumented in this encounter Care Teams Veneer Trimmer Relationship Specialty Start Date End Date Wayne Jaimes [address] [place], [place] [phone] PCP - General Internal Medicine 02/16/22 Reilly Baker MD, PHD Surgeon Neurosurgery 01/20/22 Dafne Hilton MD [address] [place], [place] [phone] Specialist Cardiology 10/13/22 Desi Swenson NP [address] [place] [address] Cardiology 02/29/24 documented as of this encounter
--- OUTSIDE RECORDS SUMMARY | 2024-08-31 15:03 | XMS_ITS | Encounter Summary ---
Author Organization [facility] Address [address] [place] [address] Care Team Providers Care Tuberculosis Specialist Name Role Phone Reilly Baker MD, PHD Unavailable Unava ilable Wayne Jaimes Primary Care Provider [phone] Dafne Hilton MD Unavailable [phone] Desi Swenson NP Unavailable [phone] Encounter Details Date Type Department Care Team Description 12/17/2022 SCAN Medical Records [address] [place] [address] [facility] Social History Tobacco Use Types Packs/Day Years [...] suspected to have Coronavirus/COVID-19? No / Unsure 12/17/2022 10:08 AM EDT documented as of this encounter Plan of Treatment Upcoming Encounters Date Type Specialty Care Team Description 04/29/2027 Pivot End Polisher Report Abstract, Provider documented as of this encounter Visit Diagnoses Not on filedocumented in this encounter Care Teams Tuberculosis Specialist Relationship Specialty Start Date End Date Wayne Jaimes [address] [place] [address] PCP - General Internal Medicine 02/16/22 Reilly Baker MD, PHD Surgeon Neurosurgery 01/20/22 Dafne Hilton MD [address] [place], [place] [id number] Specialist Cardiology 10/13/22 Desi Swenson NP [address] [place], [place] [phone] Cardiology 02/29/24 documented as of this encounter
--- OUTSIDE RECORDS SUMMARY | 2024-08-31 15:03 | XMS_ITS | Encounter Summary ---
Author Organization [facility] Address [address] [place] [address] Care Team Providers Care Rock Drill Operator Name Role Phone Brett Velásquez MD Primary Care Provider Reilly Stewart MD, PHD Unavailable Unava ilBrett Bailon MD Primary Care Provider Wayne Dickson Primary Care Provider [phone] Dafne Hilton MD Unavailable [phone] Desi Swenson NP Unavailable [phone] Encounter Details Date Type Department Care Team Description 08/10/2018 Electric Range Servicer Report Medical Records [address] [place] [address] Aleksandar Huggins MD Social History Tobacco Use [...] Date Type Specialty Care Team Description 04/29/2027 Electric Range Servicer Report Abstract, Provider documented as of this encounter Visit Diagnoses Not on filedocumented in this encounter Care Teams Rock Drill Operator Relationship Specialty Start Date End Date Bertt Velásquez MD PCP - General Internal Medicine 04/21/16 01/25/22 Brett Velásquez MD PCP - General Internal Medicine 01/26/22 02/15/22 Wayne Jaimes [address] [place] [address] PCP - General Internal Medicine 02/16/22 eRilly Baker MD, PHD Surgeon Neurosurgery 01/20/22 Dafne Hilton MD [address] [place] [address] Specialist Cardiology 10/13/22 Desi Swenson NP [address] [place] [address] Cardiology 02/29/24 documented as of this encounter
--- OUTSIDE RECORDS SUMMARY | 2024-08-31 15:03 | XMS_ITS | Encounter Summary ---
Author Organization [facility] Address [address] [place] [address] Care Team Providers Care Store Host Name Role Phone Reilly Baker MD, PHD Unavailable Unava Wayne Blackman Primary Care Provider Dafne Hilton MD Unavailable [phone] Desi Swenson NP Unavailable [phone] Reason for Visit * Reason Onset Date Comments Provider Call Back 08/17/2023 Encounter Details Date Type Department Care Team Description 08/17/2023 Telephone Gastroenterology - [place] 175 [facility] [address] [place] [id number] Kevin Oliva PA-C 175 [facility] [address] [place] [address] Provider Call Back Social History Tobacco Use Types Packs/Day Years [...] encounter Miscellaneous Notes * Telephone Encounter - Cristina Jimenez - 08/17/2023 1:19 PM EST Patient was placed on a waitlist. * Telephone Encounter - Alexandria John - 08/17/2023 11:47 AM EST Patient came in office looking to get an appointment with Kevin Oliva before his procedure on 09/09/23. Please advice, patient would like a call back. documented in this encounter Plan of Treatment Upcoming Encounters Date Type Specialty Care Team Description 04/29/2027 Extractor Operator Report Abstract, Provider documented as of this encounter Visit Diagnoses Not on filedocumented in this encounter Care Teams Store Host Relationship Specialty Start Date End Date Wayne Jaimes [address] [place] [address] PCP - General Internal Medicine 02/16/22 Reilly Baker MD, PHD Surgeon Neurosurgery 01/20/22 Dafne Hilton MD [address] [place] [address] Specialist Cardiology 10/13/22 Desi Swenson NP [address] [place] [address] Cardiology 02/29/24 documented as of this encounter
--- OUTSIDE RECORDS SUMMARY | 2024-08-31 15:03 | XMS_ITS | Encounter Summary ---
Author Organization [facility] Address [address] [place] [address] Care Team Providers Care Acupressure Therapist Name Role Phone Brett Velásquez MD Primary Care Provider Reilly Stewart MD, PHD Unavailable Unava Brett Villegas MD Primary Care Provider Wayne Dickson Primary Care Provider [phone] Dafne Hilton MD Unavailable Desi Swenson NP Unavailable [phone] Encounter Details Date Type Department Care Team Description 03/31/2017 Draughtsman Report Medical Records [address] [place] [address] Vipin Rhoades Social History Tobacco Use Types Packs/Day Years [...] Date Type Specialty Care Team Description 04/29/2027 Draughtsman Report Abstract, Provider documented as of this encounter Visit Diagnoses Not on filedocumented in this encounter Care Teams Acupressure Therapist Relationship Specialty Start Date End Date Brett Velásquez MD PCP - General Internal Medicine 04/21/16 01/25/22 Brett Velásquez MD PCP - General Internal Medicine 01/26/22 02/15/22 Wayne Jaimes [address] [place] [address] PCP - General Internal Medicine 02/16/22 Reilly Baker MD, PHD Surgeon Neurosurgery 01/20/22 Dafne Hilton MD [address] [place] [address] Specialist Cardiology 10/13/22 Desi Swenson NP [address] [place] [address] Cardiology 02/29/24 documented as of this encounter
--- OUTSIDE RECORDS SUMMARY | 2024-08-31 15:03 | XMS_ITS | Encounter Summary ---
Author Organization [facility] Address [address] [place] [address] Care Team Providers Care Poultry Debeaker Name Role Phone Brett Velásquez MD Primary Care Provider Keisha Luna MD Primary Care Provider [phone] Brett Velásquez MD Primary Care Provider Reilly Stewart MD, PHD Unavailable Unava ilable Brett Velásquez MD Primary Care Provider Wayne Dickson Primary Care Provider [phone] Dafne Hilton MD Unavailable [phone] Desi Swenson NP Unavailable [phone] Encounter Details Date Type Department Care Team Description 05/25/2013 Tactical/Mobile Watch Officer Report Medical Records [address] [place] [address] Aleksandar Huggins MD Social History Tobacco Use [...] Date Type Specialty Care Team Description 04/29/2027 Tactical/Mobile Watch Officer Report Abstract, Provider documented as of this encounter Visit Diagnoses Not on filedocumented in this encounter Care Teams Poultry Debeaker Relationship Specialty Start Date End Date Brett Velásquez MD PCP - General Internal Medicine 10/29/11 06/19/15 Keisha Chavez MD [address] [place] [address] PCP - General Internal Medicine 06/20/15 04/20/16 Brett Velásquez MD PCP - General Internal Medicine 04/21/16 01/25/22 Brett Velásquez MD PCP - General Internal Medicine 01/26/22 02/15/22 Wayne Jaimes [address] [place] [address] PCP - General Internal Medicine 02/16/22 Reilly Baker MD, PHD [address] [place] [address] Surgeon Neurosurgery 01/20/22 Dafne Hilton MD [address] [place] [address] Specialist Cardiology 10/13/22 Desi Swenson NP [address] [place] [address] Cardiology 02/29/24 documented as of this encounter
--- OUTSIDE RECORDS SUMMARY | 2024-08-31 15:03 | XMS_ITS | Encounter Summary ---
Author Organization [facility] Address [address] [place] [address] Care Team Providers Care Rn Referral Name Role Phone Brett Velásquez MD Primary Care Provider Keisha Luna MD Primary Care Provider [phone] Brett Velásquez MD Primary Care Provider Reilly Stewart MD, PHD Unavailable Unava ilable Brett Velásquez MD Primary Care Provider Wayne Dickson Primary Care Provider [phone] Dafne Hilton MD Unavailable [phone] Desi Swenson NP Unavailable [phone] Encounter Details Date Type Department Care Team Description 11/20/2013 Release of Information Medical Records [address] [place] [address] Abstract, Provider Social History Tobacco Use Types [...] Date Type Specialty Care Team Description 04/29/2027 Pig Conveyor Operator Report Abstract, Provider documented as of this encounter Visit Diagnoses Not on filedocumented in this encounter Care Teams Rn Referral Relationship Specialty Start Date End Date Brett Velásquez MD PCP - General Internal Medicine 10/29/11 06/19/15 Keisha Chavez MD [address] [place] [address] PCP - General Internal Medicine 06/20/15 04/20/16 Brett Velásquez MD PCP - General Internal Medicine 04/21/16 01/25/22 Brett Velásquez MD PCP - General Internal Medicine 01/26/22 02/15/22 Wayne Jaimes [address] [place], [place] [address] PCP - General Internal Medicine 02/16/22 Reilly Baker MD, PHD [address] [place] [address] Surgeon Neurosurgery 01/20/22 Dafne Hilton MD [address] [place] [address] Specialist Cardiology 10/13/22 Desi Swenson NP [address] [place] [address] Cardiology 02/29/24 documented as of this encounter
--- OUTSIDE RECORDS SUMMARY | 2024-08-31 15:03 | XMS_ITS | Encounter Summary ---
Author Organization [facility] Address [address] [place] [address] Care Team Providers Care Fur Dressing Supervisor Name Role Phone Reilly Baker MD, PHD Unavailable Unava Wayne Blackman Primary Care Provider [phone] Dafne Hilton MD Unavailable [phone] Desi Swenson NP Unavailable [phone] Encounter Details Date Type Department Care Team Description 10/23/2022 SCAN Medical Records [address] [place] [address] Abstract, Provider Social History Tobacco Use Types [...] Date Type Specialty Care Team Description 04/29/2027 Hardboard Factory Worker Report Abstract, Provider documented as of this encounter Procedures Procedure Name Priority Date/Time Associated Diagnosis Comments OUTSIDE BARIUM SWALLOW Routine 10/23/2022 documented in this encounter Results * OUTSIDE BARIUM SWALLOW (10/23/2022) Provider Default RADIOLOGY documented in this encounter Visit Diagnoses Not on filedocumented in this encounter Care Teams Fur Dressing Supervisor Relationship Specialty Start Date End Date Wayne Jaimes [address] [place] [address] PCP - General Internal Medicine 02/16/22 Reilly Baker MD, PHD Surgeon Neurosurgery 01/20/22 Dafne Hilton MD [address] [place] [address] Specialist Cardiology 10/13/22 Desi Swenson NP [address] [place], [place] [phone] Cardiology 02/29/24 documented as of this encounter
--- OUTSIDE RECORDS SUMMARY | 2024-08-31 15:03 | XMS_ITS | Encounter Summary ---
Author Organization [facility] Address [address] [place] [address] Care Team Providers Care Brim Stitcher Name Role Phone Brett Velásquez MD Primary Care Provider Reilly Stewart MD, PHD Unavailable Brett España MD Primary Care Provider Wayne Dickson Primary Care Provider [phone] Dafne Hilton MD Unavailable [phone] Desi Swenson NP Unavailable Encounter Details Date Type Department Care Team Description 09/01/2020 [facility] [address] [place] [address] Md Steve Social History Tobacco Use Types Packs/Day Years [...] have Coronavirus / COVID-19? No / Unsure 09/02/2020 3:16 PM EST documented as of this encounter Plan of Treatment Upcoming Encounters Date Type Specialty Care Team Description 04/29/2027 Die Engraving Supervisor Report Abstract, Provider documented as of this encounter Visit Diagnoses Not on filedocumented in this encounter Care Teams Brim Stitcher Relationship Specialty Start Date End Date Brett Velásquez MD PCP - General Internal Medicine 04/21/16 01/25/22 Brett Velásquez MD PCP - General Internal Medicine 01/26/22 02/15/22 Wayne Jaimes [address] [place] [address] PCP - General Internal Medicine 02/16/22 Reilly Baker MD, PHD Surgeon Neurosurgery 01/20/22 Dafne Hilton MD [address] [place] [address] Specialist Cardiology 10/13/22 Desi Swenson NP [address] [place] [address] Cardiology 02/29/24 documented as of this encounter
--- OUTSIDE RECORDS SUMMARY | 2024-08-31 15:03 | XMS_ITS | Encounter Summary ---
Author Organization [facility] Address [address] [place] [address] Care Team Providers Care Solid Fiber Paster Operator Name Role Phone Brett Velásquez MD Primary Care Provider Keisha Luna MD Primary Care Provider [phone] Brett Velásquez MD Primary Care Provider Reilly Stewart MD, PHD Unavailable [facility] Bailon MD Primary Care Provider Wayne Dickson Primary Care Provider [phone] Dafne Hilton MD Unavailable [phone] eDsi Swenson NP Unavailable [phone] Reason for Visit * Reason Comments Encounter Details Date Type Department Care Team Description 11/27/2013 Telephone Physiatry - [address] [address] Angela Montalvo MD [address] [place] [address] [place], [place] [id number] Social History Tobacco Use Types Packs/Day Years [...] encounter Miscellaneous Notes * Telephone Encounter - Alexandria Roman L.P.N. - 11/30/2013 8:58 AM EDT Please triage * Telephone Encounter - Zoraida PhillipsS.N - 11/27/2013 8:14 AM EDT Left a telephone message for the patient that Dr. Hogan is out sick today. Message left for the patient to call back to reschedule appointment. documented in this encounter Plan of Treatment Upcoming Encounters Date Type Specialty Care Team Description 04/29/2027 Job Service Specialist Report Abstract, Provider documented as of this encounter Visit Diagnoses Not on filedocumented in this encounter Care Teams Solid Fiber Paster Operator Relationship Specialty Start Date End Date Brett Velásquez MD PCP - General Internal Medicine 10/29/11 06/19/15 Keisha Chavez MD [address] [place] [address] PCP - General Internal Medicine 06/20/15 04/20/16 Brett Velásquez MD PCP - General Internal Medicine 04/21/16 01/25/22 Brett Velásquez MD PCP - General Internal Medicine 01/26/22 02/15/22 Wayne Jaimes [address] [place] [address] PCP - General Internal Medicine 02/16/22 Reilly Baker MD, PHD [address] [place] [address] Surgeon Neurosurgery 01/20/22 Dafne Hilton MD [address] [place] [address] Specialist Cardiology 10/13/22 Desi Swenson NP [address] [place] [address] Cardiology 02/29/24 documented as of this encounter
--- OUTSIDE RECORDS SUMMARY | 2024-08-31 15:03 | XMS_ITS | Encounter Summary ---
Author Organization [facility] Address [address] [place] [address] Care Team Providers Care Cook House Laborer Name Role Phone Reilly Baker MD, PHD Unavailable Unava ilable Wayne Jaimes Primary Care Provider [phone] Dafne Hilton MD Unavailable [phone] Desi Swenson NP Unavailable [phone] Encounter Details Date Type Department Care Team Description 08/17/2023 Environmental Programs Manager Report Medical Records [address] Social History Tobacco Use Types Packs/Day Years [...] Date Type Specialty Care Team Description 04/29/2027 Environmental Programs Manager Report Abstract, Provider documented as of this encounter Visit Diagnoses Not on filedocumented in this encounter Care Teams Cook House Laborer Relationship Specialty Start Date End Date Wayne Jaimes [address] [place], [place] [phone] PCP - General Internal Medicine 02/16/22 Reilly Baker MD, PHD Surgeon Neurosurgery 01/20/22 Dafne Hilton MD [address] [place] [address] Specialist Cardiology 10/13/22 Desi Swenson, ILDA [address] [place] [address] Cardiology 02/29/24 documented as of this encounter
--- OUTSIDE RECORDS SUMMARY | 2024-08-31 15:03 | XMS_ITS | Encounter Summary ---
Author Organization [facility] Address [address] [place] [address] Care Team Providers Care Inspector Semiconductor Wafer Name Role Phone Brett Velásquez MD Primary Care Provider Reilly Stewart MD, PHD Unavailable UnaBrett Davis MD Primary Care Provider Wayne Dickson Primary Care Provider [phone] Dafne Hilton MD Unavailable [phone] Desi Swenson NP Unavailable [phone] Encounter Details Date Type Department Care Team Description 05/29/2020 Flush Tester Report Medical Records [address] [place] [address] Aleksandar Huggins MD Social History Tobacco Use [...] have Coronavirus / COVID-19? No / Unsure 05/06/2020 2:17 PM EDT documented as of this encounter Plan of Treatment Upcoming Encounters Date Type Specialty Care Team Description 04/29/2027 Flush Tester Report Abstract, Provider documented as of this encounter Visit Diagnoses Not on filedocumented in this encounter Care Teams Inspector Semiconductor Wafer Relationship Specialty Start Date End Date Brett Velásquez MD PCP - General Internal Medicine 04/21/16 01/25/22 Brett Velásquez MD PCP - General Internal Medicine 01/26/22 02/15/22 Wayne Jaimes [address] [place] [address] PCP - General Internal Medicine 02/16/22 Reilly Baker MD, PHD Surgeon Neurosurgery 01/20/22 Dafne Hilton MD [address] [place] [address] Specialist Cardiology 10/13/22 Desi Swenson NP [address] [place], [place] [phone] Cardiology 02/29/24 documented as of this encounter
--- OUTSIDE RECORDS SUMMARY | 2024-08-31 15:03 | XMS_ITS | Encounter Summary ---
Author Organization [facility] Address [address] [place] [address] Care Team Providers Care Sample Dye Mixer Name Role Phone Brett Velásquez MD Primary Care Provider Reilly Stewart MD, PHD Unavailable UnaBrett Davis MD Primary Care Provider Wayne Dickson Primary Care Provider [phone] Dafne Hilton MD Unavailable [phone] Desi Swenson NP Unavailable [phone] Encounter Details Date Type Department Care Team Description 09/25/2020 Orders Only Physiatry - [address] [address] Sonny Abrams PA-C Social History Tobacco Use Types Packs/Day [...] have Coronavirus / COVID-19? No / Unsure 09/24/2020 8:08 AM EDT documented as of this encounter Plan of Treatment Upcoming Encounters Date Type Specialty Care Team Description 04/29/2027 Field Sales Representative Report Abstract, Provider documented as of this encounter Visit Diagnoses Not on filedocumented in this encounter Care Teams Sample Dye Mixer Relationship Specialty Start Date End Date Brett Velásquez MD PCP - General Internal Medicine 04/21/16 01/25/22 Brett Velásquez MD PCP - General Internal Medicine 01/26/22 02/15/22 Wayne Jaimes [address] [place] [address] PCP - General Internal Medicine 02/16/22 Reilly Baker MD, PHD Surgeon Neurosurgery 01/20/22 Dafne Hilton MD [address] [place] [address] Specialist Cardiology 10/13/22 Desi Swenson NP [address] [place] [address] Cardiology 02/29/24 documented as of this encounter
--- OUTSIDE RECORDS SUMMARY | 2024-08-31 15:03 | XMS_ITS | Encounter Summary ---
Author Organization [facility] Address [address] [place] [address] Care Team Providers Care Spring Bender Name Role Phone Brett Velásquez MD Primary Care Provider Keisha Luna MD Primary Care Provider [phone] Brett Velásquez MD Primary Care Provider Reilly Stewart MD, PHD Unavailable Unava ilable Brett Velásquez MD Primary Care Provider Wayne Dickson Primary Care Provider [phone] Dafne Hilton MD Unavailable [phone] Desi Swenson NP Unavailable [phone] Encounter Details Date Type Department Care Team Description 11/20/2013 Groundskeeping Maintenance Report Medical Records [address] [place] [address] Neurosurgery, [address] REEV[address] [place] [address] Social History Tobacco Use Types Packs/Day Years [...] Date Type Specialty Care Team Description 04/29/2027 Groundskeeping Maintenance Report Abstract, Provider documented as of this encounter Visit Diagnoses Not on filedocumented in this encounter Care Teams Spring Bender Relationship Specialty Start Date End Date Brett Velásquez MD PCP - General Internal Medicine 10/29/11 06/19/15 Keisha Chavez MD [address] [place] [address] PCP - General Internal Medicine 06/20/15 04/20/16 Brett Velásquez MD PCP - General Internal Medicine 04/21/16 01/25/22 Brett Velásquez MD PCP - General Internal Medicine 01/26/22 02/15/22 Wayne Jaimes [address] [place] [address] PCP - General Internal Medicine 02/16/22 Reilly Baker MD, PHD [address] [place] [address] Surgeon Neurosurgery 01/20/22 Dafne Hilton MD [address] [place] [address] Specialist Cardiology 10/13/22 Desi Swenson NP [address] [place] [address] Cardiology 02/29/24 documented as of this encounter
--- OUTSIDE RECORDS SUMMARY | 2024-08-31 15:03 | XMS_ITS | Encounter Summary ---
Author Organization [facility] Address [address] [place] [address] Care Team Providers Care Big Data Platform Architect Name Role Phone Brett Velásquez MD Primary Care Provider Reilly Stewart MD, PHD Unavailable UnaBrett Davis MD Primary Care Provider Wayne Dickson Primary Care Provider [phone] Dafne Hilton MD Unavailable [phone] Desi Swenson NP Unavailable [phone] Reason for Visit * Reason Onset Date Comments Medication Injection, Joint 02/18/2021 SCHE DULE EUFLEXXA INJ. W/TEACHING MANAGER, HAS PAID CLAIM ON FILE Encounter Details Date Type Department Care Team Description 02/18/2021 Telephone [facility] [address] [address] Hermes Ambrosio MD [address] [id number] Medication Injection, Joint (SCHEDULE EUFLEXXA INJ. W/TEACHING MANAGER, HAS PAID CLAIM ON FILE) Social History Tobacco Use Types Packs/Day Years [...] have Coronavirus / COVID-19? No / Unsure 02/04/2021 3:46 PM EDT documented as of this encounter Miscellaneous Notes * Telephone Encounter - Tanja Thomson - 02/18/2021 9:43 AM EDT Jordan called office and made 3 appts for his Euflexxa injections: 02/24 @ 2:45 PM 03/03 @ 2:45 PM 03/10 @ 2:00 PM ALL W/DR AMBROSIO * Telephone Encounter - Shellie Caruso - 02/18/2021 8:57 AM EDT LVM advising patient to contact the office and schedule 3 consecutive visits for his Euflexxa injections (B/L KNEE). documented in this encounter Plan of Treatment Upcoming Encounters Date Type Specialty Care Team Description 04/29/2027 Transaction Coordinator Report Abstract, Provider documented as of this encounter Visit Diagnoses Not on filedocumented in this encounter Care Teams Big Data Platform Architect Relationship Specialty Start Date End Date Brett Velásquez MD PCP - General Internal Medicine 04/21/16 01/25/22 Brett Velásquez MD PCP - General Internal Medicine 01/26/22 02/15/22 Wayne Jaimes [address] [place] [address] PCP - General Internal Medicine 02/16/22 Reilly Baker MD, PHD Surgeon Neurosurgery 01/20/22 Dafne Hilton MD [address] [place] [address] Specialist Cardiology 10/13/22 Deis Swenson NP [address] [place] [address] Cardiology 02/29/24 documented as of this encounter
--- OUTSIDE RECORDS SUMMARY | 2024-08-31 15:03 | XMS_ITS | Encounter Summary ---
Author Organization [facility] Address [address] [place] [address] Care Team Providers Care Bridal Gown Fitter Name Role Phone Reilly Baker MD, PHD Unavailable Unava ilable Wayne Jaimes Primary Care Provider [phone] Dafne Hilton MD Unavailable [phone] Desi Swenson NP Unavailable [phone] Encounter Details Date Type Department Care Team Description 01/28/2023 Primary Montessori Teacher Report Medical Records [address] [place] [address] Zofia Howe PA-C Social History Tobacco Use Types Packs/Day [...] suspected to have Coronavirus/COVID-19? No / Unsure 01/18/2023 1:42 PM EDT documented as of this encounter Plan of Treatment Upcoming Encounters Date Type Specialty Care Team Description 04/29/2027 Primary Montessori Teacher Report Abstract, Provider documented as of this encounter Visit Diagnoses Not on filedocumented in this encounter Care Teams Bridal Gown Fitter Relationship Specialty Start Date End Date Wayne Jaimes [address] [place], [place] [id number] PCP - General Internal Medicine 02/16/22 Reilly Baker MD, PHD Surgeon Neurosurgery 01/20/22 Dafne Hilton MD [address] [place] [address] Specialist Cardiology 10/13/22 Desi Swenson NP [address] [place] [address] Cardiology 02/29/24 documented as of this encounter
--- OUTSIDE RECORDS SUMMARY | 2024-08-31 15:03 | XMS_ITS | Encounter Summary ---
Author Organization [facility] Address [address] [place] [address] Care Team Providers Care Ceo [place] Name Role Phone Brett Velásquez MD Primary Care Provider Reilly Stewart MD, PHD Unavailable Unava Brett Villegas MD Primary Care Provider Wayne Dickson Primary Care Provider [phone] Dafne Hilton MD Unavailable [phone] Desi Swenson NP Unavailable [phone] Encounter Details Date Type Department Care Team Description 09/17/2020 [facility] Medical Records [address] [place] [address] Sylvain Lopez MD Social History Tobacco Use Types Packs/Day [...] Specialty Care Team Description 04/29/2027 X Ray Developing Machine Operator Report Abstract, Provider documented as of this encounter Visit Diagnoses Not on filedocumented in this encounter Care Teams Ce[employer] [place] Relationship Specialty Start Date End Date Brett Velásquez MD PCP - General Internal Medicine 04/21/16 01/25/22 Brett Velásquez MD PCP - General Internal Medicine 01/26/22 02/15/22 Wayne Jaimes [address] [place] [address] PCP - General Internal Medicine 02/16/22 Reilly Baker MD, PHD Surgeon Neurosurgery 01/20/22 Dafne Hilton MD [address] [place] [address] Specialist Cardiology 10/13/22 Desi Swenson NP [address] [place] [address] Cardiology 02/29/24 documented as of this encounter
--- OUTSIDE RECORDS SUMMARY | 2024-08-31 15:03 | XMS_ITS | Encounter Summary ---
Author Organization [facility] Address [address] [place] [address] Care Team Providers Care Chain Mortiser Operator Name Role Phone Reilly Baker MD, PHD Unavailable Unava ilWayne Osborne Primary Care Provider [phone] Dafne Hilton MD Unavailable [phone] Desi Swenson NP Unavailable [phone] Encounter Details Date Type Department Care Team Description 08/20/2023 Telephone Gastroenterology - [place] [address] [facility] [address] [place] [id number] Kevin Oliva PA-C [address] [id number] Social History Tobacco Use Types Packs/Day Years [...] Telephone Encounter - Kevin Oliva PA-C - 08/20/2023 7:51 AM EST Please let patient know that it has been decided that he does not need to have an EGD. He is to take smaller bites of food, chew food more thoroughly and take sips of water in between bites of food. documented in this encounter Plan of Treatment Upcoming Encounters Date Type Specialty Care Team Description 04/29/2027 Network Support Administrator Report Abstract, Provider documented as of this encounter Visit Diagnoses Not on filedocumented in this encounter Care Teams Chain Mortiser Operator Relationship Specialty Start Date End Date NovabelkisJose M hinklegil Dowell [address] [place] [address] PCP - General Internal Medicine 02/16/22 Reilly Baker MD, PHD Surgeon Neurosurgery 01/20/22 Dafne Hilton MD [address] [place] [address] Specialist Cardiology 10/13/22 Desi Swenson NP [address] [place] [address] Cardiology 02/29/24 documented as of this encounter
--- OUTSIDE RECORDS SUMMARY | 2024-08-31 15:03 | XMS_ITS | Encounter Summary ---
Author Organization [facility] Address [address] [place] [address] Care Team Providers Care Medical Case Manager Name Role Phone Brett Velásquez MD Primary Care Provider Reilly Stewart MD, PHD Unavailable Unava ilBrett Bailon MD Primary Care Provider Wayne Dickson Primary Care Provider [phone] Dafne Hilton MD Unavailable [phone] Desi Swenson NP Unavailable [phone] Encounter Details Date Type Department Care Team Description 11/23/2016 Dairy Bacteriologist Report Medical Records [address] [place] [address] Aleksandar Huggins MD Social History Tobacco Use [...] Date Type Specialty Care Team Description 04/29/2027 Dairy Bacteriologist Report Abstract, Provider documented as of this encounter Visit Diagnoses Not on filedocumented in this encounter Care Teams Medical Case Manager Relationship Specialty Start Date End Date Brett Velásquez MD PCP - General Internal Medicine 04/21/16 01/25/22 Brett Velásquez MD PCP - General Internal Medicine 01/26/22 02/15/22 Wayne Jaimes [address] [place] [address] PCP - General Internal Medicine 02/16/22 Reilly Baker MD, PHD Surgeon Neurosurgery 01/20/22 Dafne Hilton MD [address] [place] [address] Specialist Cardiology 10/13/22 Desi Swenson NP [address] [place] [address] Cardiology 02/29/24 documented as of this encounter
--- OUTSIDE RECORDS SUMMARY | 2024-08-31 15:03 | XMS_ITS | Encounter Summary ---
Author Organization [facility] Address [address] [place] [address] Care Team Providers Care Tool Programmer Name Role Phone Brett Velásquez MD Primary Care Provider Keisha Luna MD Primary Care Provider [phone] Brett Velásquez MD Primary Care Provider Reilly Stewart MD, PHD Unavailable Unava ilable Brett Velásquez MD Primary Care Provider Wayne Dickson Primary Care Provider [phone] Dafne Hilton MD Unavailable [phone] Desi Swenson NP Unavailable [phone] Encounter Details Date Type Department Care Team Description 05/30/2013 Release of Information Medical Records [address] [place] [address] Abstract, Provider Social History Tobacco Use Types [...] Date Type Specialty Care Team Description 04/29/2027 Nature Photographer Report Abstract, Provider documented as of this encounter Visit Diagnoses Not on filedocumented in this encounter Care Teams Tool Programmer Relationship Specialty Start Date End Date Brett Velásquez MD PCP - General Internal Medicine 10/29/11 06/19/15 Keisha Chavez MD [address] [place] [address] PCP - General Internal Medicine 06/20/15 04/20/16 Brett Velásquez MD PCP - General Internal Medicine 04/21/16 01/25/22 Brett Velásquez MD PCP - General Internal Medicine 01/26/22 02/15/22 Wayne Jaimes [address] [place], [place] [id number] PCP - General Internal Medicine 02/16/22 Reilly Baker MD, PHD [address] [place] [address] Surgeon Neurosurgery 01/20/22 Dafne Hilton MD [address] [place] [address] Specialist Cardiology 10/13/22 Desi Swenson NP [address] [place] [address] Cardiology 02/29/24 documented as of this encounter
--- OUTSIDE RECORDS SUMMARY | 2024-08-31 15:03 | XMS_ITS | Encounter Summary ---
Author Organization [facility] Address [address] [place] [address] Care Team Providers Care Supervisor Engraving Name Role Phone Brett Velásquez MD Primary Care Provider Reilly Stewart MD, PHD Unavailable UnaBrett Davis MD Primary Care Provider Wayne Dickson Primary Care Provider [phone] Dafne Hilton MD Unavailable [phone] Desi Swenson NP Unavailable [phone] Encounter Details Date Type Department Care Team Description 09/20/2020 Orders Only Medical Records [address] [place] [address] Sylvain Lopez MD Social History Tobacco Use [...] Date Type Specialty Care Team Description 04/29/2027 Sheet Metal Journeyman Report Abstract, Provider documented as of this encounter Procedures Procedure Name Priority Date/Time Associated Diagnosis Comments OUTSIDE PATHOLOGY Routine 09/17/2020 documented in this encounter Results * OUTSIDE PATHOLOGY (09/17/2020) Sylvain Lopez MD OUTSIDE LAB documented in this encounter Visit Diagnoses Not on filedocumented in this encounter Care Teams Supervisor Engraving Relationship Specialty Start Date End Date Brett Velásquez MD PCP - General Internal Medicine 04/21/16 01/25/22 Brett Velásquez MD PCP - General Internal Medicine 01/26/22 02/15/22 Wayne Jaimes [address] [place] [address] PCP - General Internal Medicine 02/16/22 Reilly Baker MD, PHD Surgeon Neurosurgery 01/20/22 Dafne Hilton MD [address] [place] [address] Specialist Cardiology 10/13/22 Desi Swenson NP [address] [place] [address] Cardiology 02/29/24 documented as of this encounter
--- OUTSIDE RECORDS SUMMARY | 2024-08-31 15:04 | XMS_ITS | Encounter Summary ---
Author Organization [facility] Address [address] [place] [address] Care Team Providers Care Shaper Machine Hand Name Role Phone Reilly Baker MD, PHD Unavailable Unava ilable Wayne Jaimes Primary Care Provider [phone] Dafne Hilton MD Unavailable [phone] Desi Swenson NP Unavailable [phone] Encounter Details Date Type Department Care Team Description 05/10/2023 Manufacturing Production Manager Report Medical Records [address] [place] [address] Gael Duvall Social History Tobacco Use Types Packs/Day Years [...] suspected to have Coronavirus/COVID-19? No / Unsure 04/30/2023 10:39 AM EDT documented as of this encounter Plan of Treatment Upcoming Encounters Date Type Specialty Care Team Description 04/29/2027 Manufacturing Production Manager Report Abstract, Provider documented as of this encounter Visit Diagnoses Not on filedocumented in this encounter Care Teams Shaper Machine Hand Relationship Specialty Start Date End Date Wayne Jaimes [address] [place] [address] PCP - General Internal Medicine 02/16/22 Reilly Baker MD, PHD Surgeon Neurosurgery 01/20/22 Dafne Hilton MD [address] [place] [address] Specialist Cardiology 10/13/22 Desi Swenson NP [address] [place], [place] [id number] Cardiology 02/29/24 documented as of this encounter
--- OUTSIDE RECORDS SUMMARY | 2024-08-31 15:04 | XMS_ITS | Encounter Summary ---
Author Organization [facility] Address [address] [place] [address] Care Team Providers Care Research Electrician Name Role Phone Brett Velásquez MD Primary Care Provider Reilly Stewart MD, PHD Unavailable Unava ilBrett Bailon MD Primary Care Provider Wayne Dickson Primary Care Provider [phone] Dafne Hilton MD Unavailable [phone] Desi Swenson NP Unavailable [phone] Encounter Details Date Type Department Care Team Description 09/27/2018 Continuous Pillowcase Cutter Report Medical Records [address] [place] [address] Vipin Cowart Social History Tobacco Use Types Packs/Day Years [...] Date Type Specialty Care Team Description 04/29/2027 Continuous Pillowcase Cutter Report Abstract, Provider documented as of this encounter Visit Diagnoses Not on filedocumented in this encounter Care Teams Research Electrician Relationship Specialty Start Date End Date Brett Velásquez MD PCP - General Internal Medicine 04/21/16 01/25/22 Brett Velásquez MD PCP - General Internal Medicine 01/26/22 02/15/22 Wayne Jaimes [address] [place] [address] PCP - General Internal Medicine 02/16/22 Reilly Baker MD, PHD Surgeon Neurosurgery 01/20/22 Dafne Hilton MD [address] [place] [address] Specialist Cardiology 10/13/22 Desi Swenson NP [address] [place] [address] Cardiology 02/29/24 documented as of this encounter
--- OUTSIDE RECORDS SUMMARY | 2024-08-31 15:04 | XMS_ITS | Encounter Summary ---
Author Organization [facility] Address [address] [place] [address] Care Team Providers Care Lumber Mover Name Role Phone Brett Velásquez MD Primary Care Provider Reilly Stewart MD, PHD Unavailable Unava Brett Villegas MD Primary Care Provider Wayne Dickson Primary Care Provider [phone] Dafne Hilton MD Unavailable [phone] Desi Swenson NP Unavailable Encounter Details Date Type Department Care Team Description 04/28/2021 Small Products Assembler Report Medical Records [address] [place] [address] Bolivar Palmer MD Social History Tobacco Use Types Packs/Day [...] have Coronavirus / COVID-19? No / Unsure 04/08/2021 2:04 PM EDT documented as of this encounter Plan of Treatment Upcoming Encounters Date Type Specialty Care Team Description 04/29/2027 Small Products Assembler Report Abstract, Provider documented as of this encounter Visit Diagnoses Not on filedocumented in this encounter Care Teams Lumber Mover Relationship Specialty Start Date End Date Brett Velásquez MD PCP - General Internal Medicine 04/21/16 01/25/22 Brett Velásquez MD PCP - General Internal Medicine 01/26/22 02/15/22 Wayne Jaimes [address] [place] [address] PCP - General Internal Medicine 02/16/22 Reilly Baker MD, PHD Surgeon Neurosurgery 01/20/22 Dafne Hilton MD [address] [place] [address] Specialist Cardiology 10/13/22 Desi Swenson NP [address] [place] [address] Cardiology 02/29/24 documented as of this encounter
--- OUTSIDE RECORDS SUMMARY | 2024-08-31 15:04 | XMS_ITS | Encounter Summary ---
Author Organization [facility] Address [address] [place] [address] Care Team Providers Care Clinical Services Assistant Name Role Phone Reilly Baker MD, PHD Unavailable Unava Wyane Blackman Primary Care Provider Dafne Hilton MD Unavailable [phone] Desi Swenson NP Unavailable [phone] Reason for Visit * Reason Onset Date Comments Abdominal Pain 07/30/2023 Encounter Details Date Type Department Care Team Description 07/30/2023 Telephone Pulmonology - [place] 175 [facility] [address] [place] [phone] Kevin Oliva PA-C 175 [facility] [address] [place] [address] Abdominal Pain Social History Tobacco Use Types Packs/Day Years [...] Telephone Encounter - Kevin Oliva PA-C - 07/30/2023 4:46 PM EST If the medications for her stomach are not helping, then the other consideration could be to see ifMylanta [id number] might be helpful. Hopefully we can see this patient soon in follow-up * Telephone Encounter - Cristina Jimenez - 07/30/2023 2:36 PM EST Patient was placed on a waitlist. Patient is still taking medications and it's not helping. No nausea/vomiting/diarrhea/and slight constipation. Patient is aware Kevin is out of the office until Wednesday. Please advise, thank you. * Telephone Encounter - Mayelin Camara - 07/30/2023 2:20 PM EST Patient came into the [facility] unaware appt. 07/30/2023 had been cancelled, states he is having abdominal pain after he eats, please advise documented in this encounter Plan of Treatment Upcoming Encounters Date Type Specialty Care Team Description 04/29/2027 Oncology Pharmacist Report Abstract, Provider documented as of this encounter Visit Diagnoses Not on filedocumented in this encounter Care Teams Clinical Services Assistant Relationship Specialty Start Date End Date Wayne Jaimes [address] [place] [address] PCP - General Internal Medicine 02/16/22 Reilly Baker MD, PHD Surgeon Neurosurgery 01/20/22 Dafne Hilton MD [address] [place] [address] Specialist Cardiology 10/13/22 Desi Swenson NP [address] [place] [address] Cardiology 02/29/24 documented as of this encounter
--- OUTSIDE RECORDS SUMMARY | 2024-08-31 15:04 | XMS_ITS | Encounter Summary ---
Author Organization [facility] Address [address] [place] [address] Care Team Providers Care Member Of The Legislative Council Name Role Phone Reilly Baker MD, PHD Unavailable Unava ilable Wayne Jaimes Primary Care Provider [phone] Dafne Hilton MD Unavailable [phone] Desi Swenson NP Unavailable [phone] Encounter Details Date Type Department Care Team Description 04/15/2023 First Officer Report Medical Records [address] [place] [address] Vladislav Antunez DO Social History Tobacco Use [...] suspected to have Coronavirus/COVID-19? No / Unsure 04/06/2023 7:53 AM EDT documented as of this encounter Plan of Treatment Upcoming Encounters Date Type Specialty Care Team Description 04/29/2027 First Officer Report Abstract, Provider documented as of this encounter Visit Diagnoses Not on filedocumented in this encounter Care Teams Member Of [employer] Relationship Specialty Start Date End Date Wayne Jaimes [address] [place] [address] PCP - General Internal Medicine 02/16/22 Reilly Baker MD, PHD Surgeon Neurosurgery 01/20/22 Dafne Hilton MD [address] [place] [address] Specialist Cardiology 10/13/22 Desi Swenson NP [address] [place], [place] [phone] Cardiology 02/29/24 documented as of this encounter
--- OUTSIDE RECORDS SUMMARY | 2024-08-31 15:04 | XMS_ITS ---
Author Organization [facility] Address [address] [facility] [address] [place] [address] Care Team Providers Care Piece Hand Name Role Phone Wayne Jaimes MD Primary Care Provider DESI Burks Unavailable [phone] Allergies No Known Allergies REASON FOR VISIT 3 month f/u Medications Medication SIG (Take, Route, Frequency, Duration) Notes Start Date End Date Status Efinaconazole 10 % 1 application Externally Once a day for 90 days Active Lidocaine-Prilocaine 2.5-2.5 % APPLY 1 GRAM OF CREAM TOPICALLY Externally twice daily for 30 days Active Vitamin E 400 UNIT 1 capsule Orally Onc e a day Not-Taking Tamsulosin HCl 0.4 MG 1 capsule Orally O nce a day Not-Taking Griseofulvin Ultramicrosize 250 MG 1 tablet after a meal Orally once a day for 45 days Not-Taking Itraconazole 100 MG 1 capsule after a me al Orally Once a day for 30 days 04/15/2022 Not-Taking Griseofulvin Ultramicrosize 250 MG 1 tablet after a meal Orally once a day for 90 days 01/13/2022 Not-Taking Mupirocin 2 % 1 application Externally Twice a day for 30 days 01/13/2022 Not-Taking Multivitamin Not-Oseas ing Lactulose 10 GM 1 packet Orally bid Not-Taking Vitamin D Not-Taking Diclofenac Epolamine 1.3 % 1 patch as ne eded Externally Once a day for 30 days Not-Taking Meclizine HCl 12.5 MG 2 tablets as neede d Orally 3 times daily Not-Taking Gabapentin 300 MG 1 capsule Orally bid Not-Taking Finasteride 5 MG 1 tablet Orally Once a day Not-Taking predniSONE 20 MG 1 tablet Orally Once a day Not-Taking Ciclopirox 8 % 1 application Externally Once a day Not-Taking Brilinta 90 MG 1 tablet Orally Twic e a day Not-Taking hydrOXYzine HCl 50 MG 1 tablet as needed Orally once a day for 30 day(s) 01/20/2021 Not-Taking Pantoprazole Sodium 20 MG 1 tablet Orall y Once a day Not-Taking Lidocaine-Prilocaine 2.5-2.5 % APPLY 1 GRAM TOPICALLY TO THE RIGHT AND LEFT FOOT TWICE A DAILY DIRECTED for 38 Active Losartan Potassium 25 MG 1 tablet Orally 0.5 tab Once a day Active Diclofenac Sodium 1 % as directed Malariologist ally place 1 g onto the skin bid Active Albuterol Sulfate 108 (90 Base) MCG/ACT 1 puff as needed Inhalation every 4 hrs Active Tacrolimus 0.1 % 1 application to the right foot rash Externally Once a day for 30 days Active Atorvastatin Calcium 80 MG 1 tablet Oral ly Once a day Active Aspirin 81 MG 1 tablet Orally Once a day Active Lidocaine 5 % 1 patch remove after 12 hours Externally Once a day Active Sucralfate 1 GM/10ML 10 mL 1 hour before meals and at bedtime on an empty stomach Orally Four times a day Active Triamcinolone (oint)-Silicone Active Esomeprazole Magnesium 40 MG 1 capsule Orally Once a day Active traMADol HCl 50 MG 1 tablet as needed Orally Once a day Active Ketoconazole 2 % 1 application Externally Once a day Active Voltaren Active Jublia 10 % 1 application Externally Once a day Active Vital Signs Weight 157.8 lbs 07/10/2024 Height 5ft 6in in 07/10/2024 BMI 25.47 kg/m2 07/10/2024 Procedures Procedure Date Ordered Date Performed Result Body Sit e DRAIN/INJECT, SMALL JOINT/BURSA 07/10/2024 N/A Encounters Encounter Location Date Provider Diagnosis [facility] [address] [address] 07/10/2024 DESI LI Onychomycosis B35.1 ; Calcium pyrophosphate deposition disease (CPPD) M11.20 ; Psoriasis L40.9 ; Hallux limitus of left foot M20.5X2 ; Hallux limitus of right foot M20.5X1 ; Lumbar radiculopathy, right M54.16 ; Achilles tendinitis, right leg M76.61 and Achilles tendinitis, left leg M76.62 Assessments Encounter Date Diagnosis (ICD Code) Assessment Notes Treatment Notes Treatment Clinical Notes Section Notes 07/10/2024 Onychomycosis (ICD-10 - B35.1) I reviewed with [...] to apply to each affected toenail daily. I explained to the patient how ingrown toenails form: genetics, improper shoes, trauma, fungus. I reviewed with the patient proper nail care and how to conservatively treat ingrown toenails by cutting the nail straight across, massage the skin away from the edges of the nail,and to soak the feet daily. I explained that the ingrown toenail starts at the root and this is what needs to be removed to make the toenail grow back straight. I reviewed nail avulsions with the patient and also phenol/surgical matrixectomies. The patient is not having pain currently and did not want to have the procedure done today. I briefly reviewed the post-procedure course if he did choose to have the procedure done. Patient to return when ready for the procedure. 07/10/2024 Calcium pyrophosphate deposition disease (CPPD) (ICD-10 - [...] follows up with rheumatology regarding this issue. 07/10/2024 Psoriasis (ICD-10 - L40.9) We discussed that CPPD and psoriasis can go hand in hand. We discussed that he has tried many topical steroids without improvement or resolution. He had resolution with the tacrolimus, he does not need another refill today. 07/10/2024 Hallux limitus of left foot (ICD-10 - M20.5X2) I examined his orthotics which are still appropriate. We discussed his balance issues is not coming from his feet as the tread and wear on his shoes are equal. 07/10/2024 Hallux limitus of right foot (ICD-10 - M20.5X1) Consent was reviewed and signed by the patient for a steroid injection into the right 1st metatarsophalangeal joint. Pt agreed. 3cc total steroid injection was given into the right foot. Pt tolerated well. Post-Injection instructions were given to the patient. Pt instructed to ice/elevate the foot tonight. 07/10/2024 Lumbar radiculopathy, right (ICD-10 - M54.16) We [...] under the right 4th and 5th toes. 07/10/2024 Achilles tendinitis, right leg (ICD-10 - M76.61) [...] bilateral night splints dispensed to the patient. 07/10/2024 Achilles tendinitis, left leg (ICD-10 - M76.62) Plan Of Treatment Medication Medication Name Sig Start Date Stop Date Notes Efinaconazole 10 % 1 application Malariologist ally Once a day for 90 days Lidocaine-Prilocaine 2.5-2.5 % APPLY 1 G JANES OF CREAM TOPICALLY Externally twice daily for 30 days Treatment [...] Test Name Order Date DRAIN/INJECT, SMALL JOINT/BURSA 07/10/20 24 Next Appt Details Follow Up: 3 Months, Reason: Provider Name:DESI LI, 10/11/2024 02:45:00 PM, [address] [facility] [address], [place], [address], Medications Administered Medication Instructions Date of Administration Dosage Notes dexAMETHasone Sod Phosphate PF 07/10/2024 0.5 m L Kenalog 07/10/2024 0.5 mL Progress Notes * Mckinley LEWISOB:1955 ([age] yo M)Acc No.[id number]:07/10/2024 Progress Note Patient:Laina SANDOVAL Provider:?Desi Li DPM :1955???Age:68 Y???Sex:Male Nael e:07/10/2024 Address:[address] [place], [place] [id number] Pcp:Wayne Jaimes MD Subjective: * Chief Complaints: * ???3 month f/u * HPI: ???Constitutional:?This 68 y/o male returns to my office with a complaint of toenail fungus and bilateral foot pain. Previously, I [facility]D following an aspiration. He is not on any treatment for this condition, but feels like the arthritis is slowly worsening. He is using the Jublia with improvement of the toenails. He feels like the big toenail is slightly ingrown. He is asking for a refill today. [...] puff as needed Inhalation every 4 hrs Tacrolimus 0.1 % Ointment 1 application to the right foot rash Externally Once a day Lidocaine-Prilocaine 2.5-2.5 % Cream APPLY 1 GRAM TOPICALLY TO THE RIGHT AND LEFT FOOT TWICE A DAILY DIRECTED Efinaconazole 10 % Solution 1 application Externally Once a day Lidocaine-Prilocaine 2.5-2.5 % Cream APPLY 1 GRAM OF CREAM TOPICALLY TO THE RIGHT AND LEFT FOOT TWICE DAILY DIRECTED Externally twice daily Taking Ketoconazole 2 % Cream 1 application [...] as needed Inhalation every 4 hrs Taking Tacrolimus 0.1 % Ointment 1 application to the right foot rash Externally Once a day Taking Lidocaine- Prilocaine 2.5-2.5 % Cream APPLY 1 GRAM TOPICALLY TO THE RIGHT AND LEFT FOOT TWICE A DAILY DIRECTED Taking Efinaconazole 10 % Solution 1 application Externally Once a day Taking Lidocaine-Prilocaine 2.5-2.5 % Cream APPLY 1 GRAM OF CREAM TOPICALLY TO THE RIGHT AND LEFT FOOT TWICE DAILY DIRECTED Externally twice daily Not- TakingBrilinta 90 MG Tablet 1 tablet Orally Twice [...] patient * Allergies:?N.K.D.A.no[Allerg ies Verified] Objective: * Vitals:?Wt:157.8lbs, Ht: 5ft 6in, BMI:25.47Index, Ht-cm: 167.64, Wt-k.58 kg. * Examination: ???General Examination: ???GENERAL: Patient appears well nourished, with NAD. VASCULAR: [...] bilaterally, protective sensation intact 10/10 with 5.07 [place] Alisha bilaterally, vibratory sensation with tuning fork [...] metatarsophalangeal joint on palpation and ROM. SHOES: sneakers. Assessment: * Assessment: 1.?Calcium pyrophosphate dep osition disease (CPPD) - M11.20 (Primary)???2.?Onychomycosis - B35.1???3.?Psoriasis - L40.9???4.?Hallux limitus of left foot - M20.5X2???5.?Hallux limitus of right foot - M20.5X1? ?6.?Lumbar radiculopathy, right - M54.16???7.?Achilles tendinitis, right leg - M76.61???8.?Achilles tendinitis, left leg - M76.62??? Plan: * Treatment: 2.?Onychomycosis? Start Efinaconazole Solution, [...] to apply to each affected toenail daily. I explained to the patient how ingrown toenails form: genetics, improper shoes, trauma, fungus. I reviewed with the patient proper nail care and how to conservatively treat ingrown toenails by cutting the nail straight across, massage the skin away from the edges of the nail,and to soak the feet daily. I explained that the ingrown toenail starts at the root and this is what needs to be removed to make the toenail grow back straight. I reviewed nail avulsions with the patient and also phenol/surgical matrixectomies. The patient is not having pain currently and did not want to have the procedure done today. I briefly reviewed the post-procedure course if he did choose to have the procedure done. Patient to return when ready for the procedure. ?? 3.?Psoriasis? Notes: We discussed that CPPD [...] 2.5-2.5 %, APPLY 1 GRAM OF CREAM TOPICALLY, Externally, twice daily, 30 days, 75, Refills 1.?? Clinical Notes: We discussed a [...] by Jesús ALEXISP.M (Hallux limitus of right foot)??? Kenalog : 0.5 mL (Dose No:1) given by Jesús ALEXISP.M (Hallux limitus of right foot) * Procedure Codes:? DRAIN /INJECT, SMALL JOINT/BURSA, Modifiers: RT J1100 INJ DEXAMETHASONE SODIM PHOSHATE 1 [id number] INJ TRIAMCINOLONE ACETONIDE 10 MG * Follow Up:?3 Months * Billing Information: * Visit Code:? 51681 Office Visit, Est Pt., Level 4. Modifiers: 25 * Procedure Codes:? DRAIN/INJECT, SMALL JOINT/BURSA. Modifiers: RT J1100 INJ DEXAMETHASONE SODIM PHOSHATE 1 MG. J3301 INJ TRIAMCINOLONE ACETONIDE 10 MG. * Sign off status: Completed true * Provider:?Desi Li DPM Date:? 07/10/2024 Generated for Tatiana lema/Nisla/Glo on:?08/31/2024 03:04 PM EST History and Physical Notes * [...] Jublia with improvement of the toenails. He feels like the big toenail is slightly ingrown. He is asking for a refill today. [...] bilaterally, protective sensation intact 10/10 with 5.07 [place] Alisha bilaterally, vibratory sensation with tuning fork [...]
--- OUTSIDE RECORDS SUMMARY | 2024-08-31 15:04 | XMS_ITS | Encounter Summary ---
Author Organization [facility] Address [address] [place] [address] Care Team Providers Care Pocket Closer Name Role Phone Brett Velásquez MD Primary Care Provider Reilly Stewart MD, PHD Unavailable Unava Brett Villegas MD Primary Care Provider Wayne Dickson Primary Care Provider [phone] Dafne Hilton MD Unavailable [phone] Desi Swenson NP Unavailable [phone] Encounter Details Date Type Department Care Team Description 03/18/2021 Hand Woodworking Sander Report Medical Records [address] [place] [address] Zuleika Baez PA-C Social History Tobacco Use [...] have Coronavirus / COVID-19? No / Unsure 03/12/2021 8:16 AM EDT documented as of this encounter Plan of Treatment Upcoming Encounters Date Type Specialty Care Team Description 04/29/2027 Hand Woodworking Sander Report Abstract, Provider documented as of this encounter Visit Diagnoses Not on filedocumented in this encounter Care Teams Pocket Closer Relationship Specialty Start Date End Date Brett Velásquez MD PCP - General Internal Medicine 04/21/16 01/25/22 Brett Velásquez MD PCP - General Internal Medicine 01/26/22 02/15/22 Wayne Jaimes [address] [place] [address] PCP - General Internal Medicine 02/16/22 Reilly Baker MD, PHD Surgeon Neurosurgery 01/20/22 Dafne Hilton MD [address] [place] [address] Specialist Cardiology 10/13/22 Desi Swenson NP [address] [place] [address] Cardiology 02/29/24 documented as of this encounter
--- OUTSIDE RECORDS SUMMARY | 2024-08-31 15:04 | XMS_ITS | Encounter Summary ---
Author Organization [facility] Address [address] [place] [address] Care Team Providers Care Fashion Journalist Name Role Phone Brett Velásquez MD Primary Care Provider Reilly Stewart MD, PHD Unavailable UnaBrett Davis MD Primary Care Provider Wayne Dickson Primary Care Provider Dafne Hilton MD Unavailable [phone] Desi Swenson NP Unavailable [phone] Reason for Visit * Reason Onset Date Comments Prior Authorization 04/24/2021 Encounter Details Date Type Department Care Team Description 04/24/2021 Telephone [facility] [address] [address] Hermes Alegre MD [address] [phone] Prior Authorization Social History Tobacco Use Types Packs/Day Years [...] * Telephone Encounter - Tanja Thomson - 04/24/2021 1:17 PM EDT Updated [facility] Phone #. * Telephone Encounter - Tanja Thomson - 04/24/2021 10:58 AM EDT Received incoming call from David Moore/ [facility], requesting a Retro-active PA. for pt's Euflexxa from Date of Service 02/04/21. Please fax to [phone]. Any questions please call [phone]. documented in this encounter Plan of Treatment Upcoming Encounters Date Type Specialty Care Team Description 04/29/2027 Employment Appeals Examiner Report Abstract, Provider documented as of this encounter Visit Diagnoses Not on filedocumented in this encounter Care Teams Fashion Journalist Relationship Specialty Start Date End Date Brett Velásquez MD PCP - General Internal Medicine 04/21/16 01/25/22 Brett Velásquez MD PCP - General Internal Medicine 01/26/22 02/15/22 Wayne Jaimes [address] [place] [address] PCP - General Internal Medicine 02/16/22 Reilly Baker MD, PHD Surgeon Neurosurgery 01/20/22 Dafne Hilton MD [address] [place] [address] Specialist Cardiology 10/13/22 Desi Swenson NP [address] [place] [address] Cardiology 02/29/24 documented as of this encounter
--- OUTSIDE RECORDS SUMMARY | 2024-08-31 15:04 | XMS_ITS | Encounter Summary ---
Author Organization [facility] Address [address] [place] [address] Care Team Providers Care Rock Wool Applicator Name Role Phone Wayne Jaimes MD Primary Care Provider [phone] Reason for Visit * Reason Onset Date Comments Medical Records 07/13/2024 Encounter Details Date Type Department Care Team (Late st Contact Info) Description 07/13/2024 Telephone [facility] Cardiology [facility] [address] [facility] [address] [place] [phone] Wayne Jaimes MD [address] [place] [phone] Medical Records Social History Tobacco Use Types Packs/Day Years [...] Orientation Straight 08/08/2024 11 :35 AM EST documented as of this encounter Progress Notes * Cristina Rich - 08/11/2024 4:47 PM EST Faxed 03/06/2024 Office Note, EKG and 03/21/2024 Nuclear Stress Test to [facility] Cardiovascular Att: Dr. Pinto at [phone] on 07/13/2024 documented in this encounter Plan of Treatment Upcoming Encounters Date Type Department Care Team (Late st Contact Info) Description 09/18/2024 8:30 AM EDT Office Visit [facility] - [address] [phone] Alice Schreiber PA [address] [place], [place] 10/04/2024 3:30 PM EDT Office Visit Orthopedic Surgery - [place] [address] [phone] Wen Herrmann NP [address] [address] 11/15/2024 3:15 PM EDT Office Visit Nephrology - [address] [phone] Eduard Mccormick MD [address] [facility] [address] [place] [address] documented as of this encounter Visit Diagnoses Not on filedocumented in this encounter Care Teams Rock Wool Applicator Relationship Specialty Start Date End Date Wayne Jaimes MD [address] [place] [address] PCP - General Internal Medicine 02/16/22 documented as of this encounter
--- OUTSIDE RECORDS SUMMARY | 2024-08-31 15:04 | XMS_ITS | Encounter Summary ---
Author Organization [facility] Address [address] [place] [address] Care Team Providers Care Cargo Trimmer Name Role Phone Reilly Baker MD, PHD Unavailable Unava ilable Wayne Jaimes Primary Care Provider [phone] Dafne Hilton MD Unavailable [phone] Desi Swenson NP Unavailable [phone] Encounter Details Date Type Department Care Team Description 11/11/2023 [facility] [address] [place] [address] [phone] Md Steve Social History Tobacco Use Types [...] Date Type Specialty Care Team Description 04/29/2027 Clinical Counselor Report Abstract, Provider documented as of this encounter Visit Diagnoses Not on filedocumented in this encounter Care Teams Cargo Trimmer Relationship Specialty Start Date End Date Wayne Jaimes [address] [place] [address] PCP - General Internal Medicine 02/16/22 Reilly Baker MD, PHD Surgeon Neurosurgery 01/20/22 Dafne Hilton MD [address] [place] [address] Specialist Cardiology 10/13/22 Desi Swenson NP [address] [place] [address] Cardiology 02/29/24 documented as of this encounter
--- OUTSIDE RECORDS SUMMARY | 2024-08-31 15:04 | XMS_ITS | Encounter Summary ---
Author Organization [facility] Address [address] [place] [address] Care Team Providers Care Geophysical Drafter Name Role Phone Reilly Baker MD, PHD Unavailable Unava ilWayne Osborne Primary Care Provider Dafne Hilton MD Unavailable [phone] Desi Swenson NP Unavailable [phone] Encounter Details Date Type Department Care Team Description 01/18/2024 Telephone Gastroenterology - [place] [address] [facility] [address] [place] [address] Kevin Oliva PA-C [address] [facility] [address] [place] [address] Social History Tobacco Use Types Packs/Day Years [...] * Telephone Encounter - Cristina Jimenez - 01/31/2024 3:25 PM EDT Per Prisca at [facility], [facility] is not contracted with patient's insurance either, [facility] [employer]. Per abdias Brown to book at [facility]. Called Central Registration at [phone] but they want the order faxed with demo sheet. Faxed to [phone]. * Telephone Encounter - Alexandria John - 01/31/2024 3:08 PM EDT Patient came in office stating [facility] is not accepting patient insurance. Please schedule appointment at [facility] for Barium Swallow and contact patient with information. * Telephone Encounter - Cristina Jimenez - 01/18/2024 8:21 AM EDT Booked Barium Swallow at [address] [place] [address] for patient on January 31 at 8am w/ arrival at 7:45am. Called the patient to notify of appointment details, including nothing to eat/drink after midnight. I also mailed an appointment letter. Order has been faxed to [phone]. documented in this encounter Plan of Treatment Upcoming Encounters Date Type Specialty Care Team Description 04/29/2027 Company Laundry Worker Report Abstract, Provider documented as of this encounter Visit Diagnoses Not on filedocumented in this encounter Care Teams Geophysical Drafter Relationship Specialty Start Date End Date Wayne JaimesUsama [address] [place] [address] PCP - General Internal Medicine 02/16/22 Reilly Baker MD, PHD Surgeon Neurosurgery 01/20/22 Dafne Hilton MD [address] [place] [address] Specialist Cardiology 10/13/22 Desi Swenson NP [address] [place] [address] Cardiology 02/29/24 documented as of this encounter
--- OUTSIDE RECORDS SUMMARY | 2024-08-31 15:04 | XMS_ITS | Encounter Summary ---
Author Organization [facility] Address [address] [place] [address] Care Team Providers Care Press Operator Carbon Blocks Name Role Phone Reilly Baker MD, PHD Unavailable Unava ilable Wayne Jaimes Primary Care Provider [phone] Dafne Hilton MD Unavailable [phone] Desi Swenson NP Unavailable [phone] Encounter Details Date Type Department Care Team Description 11/05/2023 Crop Adjuster Report Medical Records [address] [place] [address] Maxwell Gordon MD Social History Tobacco Use Types Packs/Day [...] Date Type Specialty Care Team Description 04/29/2027 Crop Adjuster Report Abstract, Provider documented as of this encounter Visit Diagnoses Not on filedocumented in this encounter Care Teams Press Operator Carbon Blocks Relationship Specialty Start Date End Date Wayne Jaimes [address] [place] [address] PCP - General Internal Medicine 02/16/22 Reilly Baker MD, PHD Surgeon Neurosurgery 01/20/22 Dafne Hilton MD [address] [place] [address] Specialist Cardiology 10/13/22 Desi Swenson NP [address] [place] [address] Cardiology 02/29/24 documented as of this encounter
--- OUTSIDE RECORDS SUMMARY | 2024-08-31 15:04 | XMS_ITS | Encounter Summary ---
Author Organization [facility] Address [address] [place] [address] Care Team Providers Care Cork Insulation Setter Name Role Phone Reilly Baker MD, PHD Unavailable Unava ilWayne Osborne Primary Care Provider Dafne Hilton MD Unavailable [phone] Desi Swenson NP Unavailable [phone] Encounter Details Date Type Department Care Team Description 09/30/2023 Pt. Non Urgent Medical Question Gastroenterology - [place] 175 [facility] [address] [place] [phone] Kevin Oliva PA-C [address] [address] Social History Tobacco Use Types Packs/Day Years [...] encounter Miscellaneous Notes * Telephone Encounter - Marleny Kennedy M.A. - 09/30/2023 10:41 AM EDTFrom: Laina Lewis To: Francesca Oliva Sent: 09/30/2023 9:23 AM EDT Subject: order an endoscopy did you get a referral paper for ordering an endoscopy from ENT doctorJustice after ? also, you told me need an endoscopy and when will see an ENT doctor who need an Endoscopy, tell me when I saw last time. In addition, still have a stomach problem, pain after eating. could you make a schedule about endoscopy as soon as possible? documented in this encounter Plan of Treatment Upcoming Encounters Date Type Specialty Care Team Description 04/29/2027 Elevator Dispatcher Report Abstract, Provider documented as of this encounter Visit Diagnoses Not on filedocumented in this encounter Care Teams Cork Insulation Setter Relationship Specialty Start Date End Date Wayne Jaimes [address] [place] [address] PCP - General Internal Medicine 02/16/22 Reilly Baker MD, PHD Surgeon Neurosurgery 01/20/22 Dafne Hilton MD [address] [place] [address] Specialist Cardiology 10/13/22 Desi Swenson NP [address] [place] [address] Cardiology 02/29/24 documented as of this encounter
--- OUTSIDE RECORDS SUMMARY | 2024-08-31 15:04 | XMS_ITS | Encounter Summary ---
Author Organization [facility] Address [address] [place] [address] Care Team Providers Care Milk Receiver Name Role Phone Brett Velásquez MD Primary Care Provider Reilly Stewart MD, PHD Unavailable Unava Brett Villegas MD Primary Care Provider Wayne Dickson Primary Care Provider [phone] Dafne Hilton MD Unavailable [phone] Desi Swenson NP Unavailable [phone] Encounter Details Date Type Department Care Team Description 04/22/2021 Flavoring Oil Filterer Report Medical Records [address] [place] [address] Desi Li DPM Social History Tobacco Use [...] Date Type Specialty Care Team Description 04/29/2027 Flavoring Oil Filterer Report Abstract, Provider documented as of this encounter Visit Diagnoses Not on filedocumented in this encounter Care Teams Milk Receiver Relationship Specialty Start Date End Date Brett Velásquez MD PCP - General Internal Medicine 04/21/16 01/25/22 Brett Velásquez MD PCP - General Internal Medicine 01/26/22 02/15/22 Wayne Jaimes [address] [place] [address] PCP - General Internal Medicine 02/16/22 Reilly Baker MD, PHD Surgeon Neurosurgery 01/20/22 Dafne Hilton MD [address] [place] [address] Specialist Cardiology 10/13/22 Desi Swenson NP [address] [place] [address] Cardiology 02/29/24 documented as of this encounter
--- OUTSIDE RECORDS SUMMARY | 2024-08-31 15:04 | XMS_ITS | Encounter Summary ---
Author Organization [facility] Address [address] [place] [address] Care Team Providers Care Paper Mill Manager Name Role Phone Reilly Baker MD, PHD Unavailable Unava Wayne Blackman Primary Care Provider [phone] Dafne Hilton MD Unavailable [phone] Desi Swenson NP Unavailable [phone] Reason for Visit * Reason Onset Date Comments Medication 02/25/2023 Encounter Details Date Type Department Care Team Description 02/25/2023 Telephone Gastroenterology - [place] 175 [facility] [address] [place] [phone] Kevin Oliva PA-C [address] [address] Medication Social History Tobacco Use Types Packs/Day Years [...] suspected to have Coronavirus/COVID-19? No / Unsure 02/18/2023 10:52 AM EDT documented as of this encounter Miscellaneous Notes * Telephone Encounter - Kevin Oliva PA-C - 03/12/2023 11:04 AM EDT So if Carafate is on backorder, then he can try Mylanta and I will send it to the pharmacy. Please let him know that the prescription has been sent to [facility] * Telephone Encounter - Ena Carrasco - 02/25/2023 2:35 PM EDT Received fax from [facility], medication sucralfate (CARAFATE) 1 GM/10ML suspension, is on back order,requesting alternative documented in this encounter Plan of Treatment Upcoming Encounters Date Type Specialty Care Team Description 04/29/2027 Chassis Inspector Report Abstract, Provider documented as of this encounter Visit Diagnoses Not on filedocumented in this encounter Care Teams Paper Mill Manager Relationship Specialty Start Date End Date Wayne Jaimes [address] [place] [address] PCP - General Internal Medicine 02/16/22 Reilly Baker MD, PHD Surgeon Neurosurgery 01/20/22 Dafne Hilton MD [address] [place] [address] Specialist Cardiology 10/13/22 Desi Swenson NP [address] [place] [address] Cardiology 02/29/24 documented as of this encounter
--- OUTSIDE RECORDS SUMMARY | 2024-08-31 15:04 | XMS_ITS | Encounter Summary ---
Author Organization [facility] Address [address] [place] [address] Care Team Providers Care Welder Setter Electron Beam Machine Name Role Phone Wayne Jaimes MD Primary Care Provider Encounter Details Date Type Department Care Team (Late st Contact Info) Description 08/08/2024 12:45 PM EST Anesthesia Event [facility] Pain Management [address] [place] [id number] Bolivar Palmer MD [address] [place] [address] Anesthesia Record Procedure Summary Procedure Name Responsible Anesthesiologist Anesthesia Start Time Anesthesia Stop Time INJECTION STEROID EPIDURAL TRANSFORAMINAL BILATERAL Bolivar Palmer MD 08/08/24 1245 08/08/24 1305 Events Date Time Event Comment 08/08/2024 1156 1245 An Start 1245 An Start Data The patient wa s reevaluated immediately before moderate or deep sedation use and before anesthesia induction. 1248 In Room 1250 Anesthesia Ready 1256 Proc Start 1258 Proc Fin 1258 an stop data 1304 Out of Room 1305 Handoff to RN I completed my handoff to the receiving nurse during which we: 1. Identified the patient 2. Identified the responsible provider 3. Reviewed the pertinent medical history 4. Discussed the surgical course 5. Reviewed intra-op anesthesia management and issues during anesthesia 6. Set expectations for post-procedure period 7. Allowed opportunity for questions and acknowledgement of understanding. 1305 An Stop Meds Name Total fentaNYL 0.05 mg/mL 100 mcg midazolam 1 mg/mL 1 mg lidocaine PF (XYLOCAINE-MPF) local injec tion 2% 30 mg lactated Ringer's infusion 100 mL * Agents Name O2 * Blood No blood administrations on file. Lines, Drains, and Airways Type Details Placement Removal Wound (puncture); Back; Lo wer, Right 08/08/24 1301 by Wound (puncture); Back; Le ft, Lower 08/08/24 1301 by Peripheral IV Placement Date: 07/13 03/05; Placement Time: 1211; Catheter Size: 20 G; Orientation: Posterior, Right; Location: Hand; Site Prep: Chlorhexidine; Local Anesth: None; Inserted by: ray south; Insertion Attempts: 1; Patient Tolerance: Tolerated well; Removal Date: 08/08/24; Removal Time: 1350 08/08/24 1211 by Richie South RN 08/08/24 1350 by Loreta Fisher RN documented in this encounter Social History Tobacco Use Types Packs/Day Years [...] as of this encounter Progress Notes * Jori Deras CRNA - 08/08/2024 1:05 PM EST Patient: Laina Lewis Procedure Summary Date: 08/08/24 Room / Location: [facility] Pain Management Anesthesia Start: 1245 Anesthesia Stop: 1305 Procedure: INJECTION STEROID EPIDURAL TRANSFORAMINAL BILATERAL Diagnosis: Radiculopathy, lumbar region Scheduled Providers: Vladislav Antunez DO; Bolivar Palmer MD Responsible Provider: Bolivar Palmer MD Anesthesia Type: MAC ASA Status: 3 Anesthesia Plan: MAC Visit Vitals BP (!) 151/83 Pulse 52 Temp 36.3 ??C (97.3 ??F) Resp 16 Ht 1.676 m (66 ) Wt 65.8 kg (145 lb) SpO2 99% BMI 23.40 kg/m?? Smoking Status Never BSA 1.74 m?? Pain Score: 7 Anesthesia Post Evaluation Patient location during evaluation: PACU Patient participation: complete - patient participated Level of consciousness: awake and alert Pain score: 0 Pain management: adequate Airway patency: patent Anesthetic complications: no Cardiovascular status: acceptable Respiratory status: acceptable Hydration status: acceptable Nausea: No Vomiting: No There were no known notable events for this encounter. 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 Anesthesia Evaluation No history of anesthetic complications Airway Mallampati: III Dental - normal exam Comment: crown Pulmonary - normal exam (+) COPD moderate, sleep apnea on CPAP Cardiovascular (+) hypertension, past ID, CAD, CABG/stent (s/p stent in 08/2022) Rhythm: regular Rate: normal Neuro/Psych (-) seizures, CVA GI/Hepatic/Renal (+) GERD well controlled (-) liver disease, renal disease Endo/Other (-) diabetes mellitus Abdominal Stress test (02/2024): normal, EF 70% PONV RISK SCORE: 1 There were no vitals filed for this visit. SpO2 Readings from Last 1 Encounters: No data found for SpO2 No results found for: WBC , RBC , HGB , HCT , PLT , MCV No Known Allergies STOP BANG: No data recorded NPO Status: No data recorded documented in this encounter Plan of Treatment Upcoming Encounters Date Type Department Care Team (Late st Contact Info) Description 09/18/2024 8:30 AM EDT Office Visit Adult Medicine [place] - [address] [phone] Alice Schreiber PA [address] [place], [place] 10/04/2024 3:30 PM EDT Office Visit Orthopedic Surgery - [place] [address] [phone] Wen Herrmann NP [address] [address] 11/15/2024 3:15 PM EDT Office Visit Nephrology - [address] [phone] Eduard Mccormick MD [address] [facility] [address] [place] [address] documented as of this encounter Visit Diagnoses Not on filedocumented in this encounter Administered Medications Inactive Administered Medications - up to 3 most recent administrations Medication Order MAR Action Action Date Dose Rate Site fentaNYL (PF) (SUBLIMAZE) injection intravenous, As needed, Starting on Wed08/08/24 at 1251, Anesthesia Intraprocedure Given 08/08/2024 12:57 PM EST 25 mcg Given 08/08/2024 12:55 PM EST 25 mcg Given 08/08/2024 12:53 PM EST 25 mcg lactated Ringer's infusion 100 mL/hr, intravenous, Continuous, Starting on Wed08/08/24 at 1215, Preprocedure New Bag 08/08/2024 12:49 PM EST Continued by Anesthesia 08/08/2024 12:45 PM EST 100 mL/hr New Bag 08/08/2024 12:11 PM EST 100 mL/hr 100 mL/hr lidocaine (PF) (XYLOCAINE-MPF) 2 % injection injection, As needed, Starting on Wed08/08/24 at 1250, Anesthesia Intraprocedure Given 08/08/2024 12:50 PM EST 30 mg midazolam (VERSED) injection intravenous, As needed, Starting on Wed08/08/24 at 1250, Anesthesia Intraprocedure Given 08/08/2024 12:50 PM EST 1 mg documented in this encounter Care Teams Welder Setter Electron Beam Machine Relationship Specialty Start Date End Date Wayne Jaimes MD [address] [place] [address] PCP - General Internal Medicine 02/16/22 documented as of this encounter
--- OUTSIDE RECORDS SUMMARY | 2024-08-31 15:04 | XMS_ITS | Encounter Summary ---
Author Organization [facility] Address [address] [place] [address] Care Team Providers Care Card Punching Machine Operator Name Role Phone Brett Velásquez MD Primary Care Provider Reilly Stewart MD, PHD Unavailable Unava ilBrett Bailon MD Primary Care Provider Wayne Dickson Primary Care Provider [phone] Dafne Hilton MD Unavailable [phone] Desi Swenson NP Unavailable [phone] Encounter Details Date Type Department Care Team Description 10/04/2018 Release of Information Medical Records [address] [place] [address] Abstract, Provider Social History Tobacco Use Types [...] Date Type Specialty Care Team Description 04/29/2027 Size Mixer Report Abstract, Provider documented as of this encounter Visit Diagnoses Not on filedocumented in this encounter Care Teams Card Punching Machine Operator Relationship Specialty Start Date End Date Brett Velásquez MD PCP - General Internal Medicine 04/21/16 01/25/22 Brett Velásquez MD PCP - General Internal Medicine 01/26/22 02/15/22 Wayne Jaimes [address] [place] [address] PCP - General Internal Medicine 02/16/22 Reilly Baker MD, PHD Surgeon Neurosurgery 01/20/22 Dafne Hilton MD [address] [place] [address] Specialist Cardiology 10/13/22 Desi Swenson NP [address] [place] [address] Cardiology 02/29/24 documented as of this encounter
--- OUTSIDE RECORDS SUMMARY | 2024-08-31 15:04 | XMS_ITS | Encounter Summary ---
Author Organization [facility] Address [address] [place] [address] Care Team Providers Care Re Dye Hand Name Role Phone Reilly Baker MD, PHD Unavailable Unava ilWayne Osborne Primary Care Provider [phone] Dafne Hilton MD Unavailable [phone] Desi Swenson NP Unavailable [phone] Encounter Details Date Type Department Care Team Description 05/06/2023 Orders Only Medical Records [address] [place] [address] Ankita Mckeon NP Social History Tobacco Use [...] Date Type Specialty Care Team Description 04/29/2027 Shot Coat Tender Report Abstract, Provider documented as of this encounter Procedures Procedure Name Priority Date/Time Associated Diagnosis Comments OUTSIDE LAB Routine 04/05/2023 documented in this encounter Results * OUTSIDE LAB (04/05/2023) Ankita Mckeon NP LAB documented in this encounter Visit Diagnoses Not on filedocumented in this encounter Care Teams Re Dye Hand Relationship Specialty Start Date End Date Wayne Jaimes [address] [place] [address] PCP - General Internal Medicine 02/16/22 Reilly Baker MD, PHD Surgeon Neurosurgery 01/20/22 Dafne Hilton MD [address] [place] [address] Specialist Cardiology 10/13/22 Desi Swenson NP [address] [place] [address] Cardiology 02/29/24 documented as of this encounter
--- OUTSIDE RECORDS SUMMARY | 2024-08-31 15:04 | XMS_ITS | Encounter Summary ---
Author Organization [facility] Address [address] [place] [address] Care Team Providers Care Server Support Technician Name Role Phone Brett Velásquez MD Primary Care Provider Reilly Stewart MD, PHD Unavailable Unava Brett Villegas MD Primary Care Provider Wayne Dickson Primary Care Provider [phone] Dafne Hilton MD Unavailable [phone] Desi Swenson NP Unavailable [phone] Encounter Details Date Type Department Care Team Description 04/14/2021 Safety Supervisor Report Medical Records [address] [place] [address] Sen May MD Social History Tobacco Use Types Packs/Day [...] Date Type Specialty Care Team Description 04/29/2027 Safety Supervisor Report Abstract, Provider documented as of this encounter Visit Diagnoses Not on filedocumented in this encounter Care Teams Server Support Technician Relationship Specialty Start Date End Date Brett Velásquez MD PCP - General Internal Medicine 04/21/16 01/25/22 Brett Velásquez MD PCP - General Internal Medicine 01/26/22 02/15/22 Wayne Jaimes [address] [place] [address] PCP - General Internal Medicine 02/16/22 Reilly Baker MD, PHD Surgeon Neurosurgery 01/20/22 Dafne Hilton MD [address] [place] [address] Specialist Cardiology 10/13/22 Desi Swenson NP [address] [place] [address] Cardiology 02/29/24 documented as of this encounter
--- OUTSIDE RECORDS SUMMARY | 2024-08-31 15:05 | XMS_ITS | Encounter Summary ---
Author Organization [facility] Address [address] [place] [address] Care Team Providers Care Eyeglass Inspector Name Role Phone Wayne Jaimes MD Primary Care Provider Encounter Details Date Type Department Care Team (Latest Contact Info) Description 08/08/2024 6:21 AM EST - 08/08/2024 11:59 PM EST Hospital Encounter [facility] Xray [address] [place] [address] Pain Discharge Disposition: Home or Self Care Social History Tobacco Use Types Packs/Day Years [...] AM EST documented as of this encounter Medications at Time of Discharge albuterol HFA (PROAIR HFA ; PROVENTIL HFA ; VENTOLIN HFA) 90 mcg/actuation inhaler Inhale 2 puffs by mouth every 6 (six) hours if needed for wheezing. aspirin 81 mg EC tablet Take 1 tablet (81 mg total) by mouth 1 (one) time each day. 06/11/2023 atorvastatin (LIPITOR) 10 mg tablet Take 1 tablet by mouth once daily 90 tablet 08/03/2024 bisacodyL (Dulcolax, bisacodyl,) 5 mg EC tablet Take 2 tabs at 6pm as directed. 08/26/2023 Breo Ellipta 100-25 mcg/dose inhaler Take 1 puff by mouth 1 (one) time each day. INHALE 1 PUFF BY MOUTH EVERY DAY AT THE SAME TIME EACH DAY 04/17/2024 cimetidine (TAGAMET) 800 mg tablet Take 1 tablet (800 mg total) by mouth at bedtime. clobetasoL (TEMOVATE) 0.05 % cream Apply to affected areas twice daily x 2 weeks then sparingly as needed . 07/09/2021 clotrimazole-betame thasone (LOTRISONE) 1-0.05 % cream Apply 1 applicator topically. 01/08/2023 diclofenac (VOLTAREN) 1 % topical gelIndications:Prim ellen osteoarthritis of right knee,Primary osteoarthritis of left knee Apply 4 g topically 4 (four) times a day if needed (pain or swelling). 100 g 2 06/06/2024 diphenhydrAMINE (BENADRYL) 25 mg tablet TAKE 1 TABLET BY MOUTH AT BEDTIME NEEDED FOR ITCH 05/12/2023 docusate sodium (COLACE) 100 mg capsule Take 1 capsule (100 mg total) by mouth 2 (two) times a day. 11/03/2021 efinaconazole (Jublia) 10 % solution with applicator Apply topically. esomeprazole (NexIUM) [address] capsule Take 1 capsule (40 mg total) by mouth. 02/18/2023 gabapentin (NEURONTIN) 300 mg capsule Take 1 capsule (300 mg total) by mouth. ibuprofen (ADVIL,MOTRIN) 800 mg tablet Take 1 tablet (800 mg total) by mouth 3 (three) times a day if needed. 09/21/2023 inhalat.spacing dev,large mask spacer Please use with inhaler 09/28/2019 lidocaine (XYLOCAINE) 5 % ointment Apply topically. lidocaine-prilocain e (EMLA) 2.5-2.5 % cream APPLY ONE GRAM OF CREAM TOPICALLY TO THE RIGHT AND LEFT FOOT TWICE DAILY DIRECTED FOR 30 DAYS 07/21/2023 losartan (COZAAR) 25 mg tablet Take 1 tablet (25 mg total) by mouth 1 (one) time each day. 08/09/2023 meclizine (ANTIVERT) 12.5 mg tablet Take 1 tablet (12.5 mg total) by mouth 3 times daily as needed. 07/31/2020 oxyCODONE (ROXICODONE) 5 mg immediate release tablet Take 1 tablet (5 mg total) by mouth. 08/06/2023 PREDNISOLONE ACETATE ORAL Take by mouth. sucralfate (CARAFATE) 100 mg/mL suspension Take 10 mL (1 g total) by mouth. 02/18/2023 tacrolimus (PROTOPIC) 0.1 % ointment APPLY 1 APPLICATION OF OINTMENT TOPICALLY TO THE RIGHT FOOT RASH ONCE DAILY 04/16/2023 ticagrelor (BRILINTA) 90 mg tablet Take 1 tablet (90 mg total) by mouth 2 (two) times a day. 04/06/2023 triamcinolone (KENALOG) 0.1 % lotion APPLY SPARINGLY TO AFFECTED AREAS TWICE DAILY NEEDED 08/24/2022 documented as of this encounter Discharge Disposition Disposition Code Departure Means Destination Home or Self Care documented in this encounter Plan of Treatment Upcoming Encounters Date Type Department Care Team (Late st Contact Info) Description 09/18/2024 8:30 AM EDT Office Visit Adult Medicine [address] [phone] Alice Schreiber PA [address] [place] [address] 10/04/2024 3:30 PM EDT Office Visit Orthopedic Surgery - [place] [address] [phone] Wen Herrmann NP [address] [address] 11/15/2024 3:15 PM EDT Office Visit Nephrology - [address] [place] [address] Eduard Mccormick MD 100 [facility] [address] [place] [address] Pending Results Name Type Priority Associated Diagnoses Date /Time XR Fluoro Up To 1 Hour Imaging Routine Pain 08/08/2024 1:06 PM EST Scheduled Orders Name Type Priority Associated Diagnoses Orde r Schedule XR Fluoro Up To 1 Hour Imaging Routine Pain Once for 1 Occurrences starting 08/08/2024 until 08/08/2024 documented as of this encounter Visit Diagnoses Diagnosis Pain Generalized pain documented in this encounter Care Teams Eyeglass Inspector Relationship Specialty Start Date End Date Wayne Jaimes MD [address] [place] [address] PCP - General Internal Medicine 02/16/22 documented as of this encounter
--- OUTSIDE RECORDS SUMMARY | 2024-08-31 15:05 | XMS_ITS | Encounter Summary ---
Author Organization [facility] Address [address] [place] [address] Care Team Providers Care Church History Teacher Name Role Phone Brett Velásquez MD Primary Care Provider Reilly Stewart MD, PHD Unavailable UnaBrett Davis MD Primary Care Provider Wayne Dickson Primary Care Provider [phone] Dafne Hilton MD Unavailable [phone] Desi Swenson NP Unavailable [phone] Encounter Details Date Type Department Care Team Description 02/16/2019 Orders Only Medical Records [address] [place] [address] Yuliana Auguste MD [address] [place] [address] Social History Tobacco Use Types Packs/Day Years [...] Date Type Specialty Care Team Description 04/29/2027 Pharmacist Manager Report Abstract, Provider documented as of this encounter Procedures Procedure Name Priority Date/Time Associated Diagnosis Comments OUTSIDE PATHOLOGY Routine 02/14/2019 documented in this encounter Results * OUTSIDE PATHOLOGY (02/14/2019) H Perez Auguste MD OUTSIDE LAB documented in this encounter Visit Diagnoses Not on filedocumented in this encounter Care Teams Church History Teacher Relationship Specialty Start Date End Date Brett Velásquez MD PCP - General Internal Medicine 04/21/16 01/25/22 Brett Velásquez MD PCP - General Internal Medicine 01/26/22 02/15/22 Wayne Jaimes [address] [place] [address] PCP - General Internal Medicine 02/16/22 Reilly Baker MD, PHD Surgeon Neurosurgery 01/20/22 Dafne Hilton MD [address] [place], [place] [phone] Specialist Cardiology 10/13/22 Desi Swenson NP [address] [place] [address] Cardiology 02/29/24 documented as of this encounter
--- OUTSIDE RECORDS SUMMARY | 2024-08-31 15:05 | XMS_ITS | Encounter Summary ---
Author Organization [facility] Address [address] [place] [address] Care Team Providers Care Admitting Supervisor Name Role Phone Brett Velásquez MD Primary Care Provider Reilly Stewart MD, PHD Unavailable Unava ilBrett Bailon MD Primary Care Provider Wayne Dickson Primary Care Provider [phone] Dafne Hilton MD Unavailable [phone] Desi Swenson NP Unavailable [phone] Encounter Details Date Type Department Care Team Description 12/11/2021 Pt. Referral Request [facility] [address] [place] [address] Md Steve Social History Tobacco Use Types [...] Date Type Specialty Care Team Description 04/29/2027 Hat Lining Paster Report Abstract, Provider documented as of this encounter Visit Diagnoses Not on filedocumented in this encounter Care Teams Admitting Supervisor Relationship Specialty Start Date End Date Brett Velásquez MD PCP - General Internal Medicine 04/21/16 01/25/22 Brett Velásquez MD PCP - General Internal Medicine 01/26/22 02/15/22 Wayne Jaimes [address] [place] [address] PCP - General Internal Medicine 02/16/22 Reilly Baker MD, PHD Surgeon Neurosurgery 01/20/22 Dafne Hilton MD [address] [place] [address] Specialist Cardiology 10/13/22 Desi Swenson NP [address] [place] [address] Cardiology 02/29/24 documented as of this encounter
--- OUTSIDE RECORDS SUMMARY | 2024-08-31 15:05 | XMS_ITS | Encounter Summary ---
Author Organization [facility] Address [address] [place] [address] Care Team Providers Care Dual Rate Supervisor Name Role Phone Brett Velásquez MD Primary Care Provider Reilly Stewart MD, PHD Unavailable UnaBrett Davis MD Primary Care Provider Wayne Dickson Primary Care Provider [phone] Dafne Hilton MD Unavailable [phone] Desi Swenson NP Unavailable [phone] Encounter Details Date Type Department Care Team Description 01/13/2022 Ambulatory Nurse Report Medical Records [address] [place] [address] Desi Li DPM Social History Tobacco Use [...] suspected to have Coronavirus/COVID-19? No / Unsure 01/09/2022 3:33 PM EDT documented as of this encounter Plan of Treatment Upcoming Encounters Date Type Specialty Care Team Description 04/29/2027 Ambulatory Nurse Report Abstract, Provider documented as of this encounter Visit Diagnoses Not on filedocumented in this encounter Care Teams Dual Rate Supervisor Relationship Specialty Start Date End Date Brett Velásquez MD PCP - General Internal Medicine 04/21/16 01/25/22 Brett Velásquez MD PCP - General Internal Medicine 01/26/22 02/15/22 Wayne Jaimes [address] [place] [address] PCP - General Internal Medicine 02/16/22 Reilly Baker MD, PHD Surgeon Neurosurgery 01/20/22 Dafne Hilton MD [address] [place] [address] Specialist Cardiology 10/13/22 Desi Swenson NP [address] [place] [address] Cardiology 02/29/24 documented as of this encounter
--- OUTSIDE RECORDS SUMMARY | 2024-08-31 15:05 | XMS_ITS | Clinical Summary ---
Author Organization [facility] Address [address] [place] [address] Care Team Providers Care Mdm Sr Name Role Phone Brett Velásquez MD Primary Care Provider Allergies No known active allergies Medications Medication Sig Dispensed Refills Start Date End Date Status Cholecalciferol 50 MCG (1999 UT) TABS Take 2,000 Units by mouth every other day. 0 12/26/2015 Active finasteride (PROSCAR) 5 MG tablet Take 5 mg by mouth daily. 0 Active gabapentin (NEURONTIN) 300 MG capsule Take 300 mg by mouth 2 (two) times a day as needed. 0 02/18/2019 Active tamsulosin (FLOMAX) 0.4 MG CAPS Take 0.8 mg by mouth daily. 0 Active lidocaine (LIDODERM) 5 % Place 1 patch onto the skin every 8 (eight) hours as needed (low back pain). 90 patch 0 10/28/2021 Active pregabalin (LYRICA) 25 MG capsule Take 1 capsule (25 mg total) by mouth 3 (three) times a day. 90 capsule 0 11/26/2021 Active Social History Tobacco Use Types Packs/Day Years Used Date Smoking Tobacco: Never Smokeless Tobacco: Never Alcohol Use Standard Drinks/Week Comments Never 0 (1 standard drink = 0.6 oz pur e alcohol) Sex and Gender Information Value Date Recorded Sex Assigned at Not on file Gender Identity Not on file Sexual Orientation Not on file Job Start Date Occupation Industry Not on file Not on file Not on file Last Filed Vital Signs Vital Sign Reading Time Taken Comments Blood Pressure 123/71 12/17/2021 8:33 AM EDT Pulse 65 12/17/2021 8:33 AM EDT Temperature 36.2 ??C (97.1 ??F) 12/17/2021 8:33 AM ED T Respiratory Rate - - Oxygen Saturation 98% 12/17/2021 8:33 AM EDT Inhaled Oxygen Concentration - - Weight 61.2 kg (135 lb) 04/28/2021 11:52 AM EDT Height 167.6 cm (5' 6 ) 04/28/2021 11:52 AM EDT Body Mass Index 21.79 04/28/2021 11:52 AM EDT Plan of Treatment Health Maintenance Due Date Last Done Comments Hepatitis C Screening 1955 Depression Screening 1965 Preventative Health Evaluation 11/18/1971 Colon Cancer Screening (Colonoscopy) 1998 Fall Risk Assessment 2018 COVID-19 Vaccine ( season) 2024 04/23/2021, 10/22/2020, 09/30/2020 Influenza Vaccine (#1) 2024 , 04/09/2020, 05/06/2019, Additional history exists RSV Adult > 60+ Yrs or (1 - 1-dose 75+ series) 2028 DTap / Tdap / Td (3 - Td or Tdap) 04/26/2030 04/26/2020, 08/31/2012 Shingrix-Zoster Vaccine Completed 01/24/2020, 09/06 Pneumococcal Vaccine Completed 04/09/2020, 04/28/20 19 Hepatitis B Vaccines Aged Out No long er eligible based on patient's age to complete this topic RSV Ped < 20 months Aged Out No longe r eligible based on patient's age to complete this topic Care Teams Mdm Sr Relationship Specialty Start Date End Date Brett Velásquez MD PCP - General Internal Medicine 10/20/17
--- OUTSIDE RECORDS SUMMARY | 2024-08-31 15:05 | XMS_ITS | Encounter Summary ---
Author Organization [facility] Address [address] [place] [address] Care Team Providers Care Sap Bw Developer Name Role Phone Brett Velásquez MD Primary Care Provider Reilly Stewart MD, PHD Unavailable UnaBrett Davis MD Primary Care Provider Wayne Dickson Primary Care Provider [phone] Dafne Hilton MD Unavailable [phone] Desi Swenson NP Unavailable [phone] Reason for Visit * Reason Onset Date Comments Prior Authorization 06/17/2021 Encounter Details Date Type Department Care Team Description 06/17/2021 Telephone [facility] [address] [place] [id number] Joo Meadows MD Prior Authorization Social History Tobacco Use Types [...] have Coronavirus / COVID-19? No / Unsure 06/12/2021 7:38 AM EST documented as of this encounter Miscellaneous Notes * Telephone Encounter - Shelbie Lariosbs - 06/17/2021 8:42 AM EST Sendy from [facility] called again to check on status of prior auth for Euflexxa injections. I told her that Samara sent a request to [employer] and is waiting on response. Sendy asked that I let Samara know she called to check on it and to please let her know when we receive approval. She can be reached at [phone] ext [phone]. documented in this encounter Plan of Treatment Upcoming Encounters Date Type Specialty Care Team Description 04/29/2027 Cutter [employer]ke Lining Report Abstract, Provider documented as of this encounter Visit Diagnoses Not on filedocumented in this encounter Care Teams Sap Bw Developer Relationship Specialty Start Date End Date Brett Velásquez MD PCP - General Internal Medicine 04/21/16 01/25/22 Brett Velásquez MD PCP - General Internal Medicine 01/26/22 02/15/22 Wayne Jaimes [address] [place] [address] PCP - General Internal Medicine 02/16/22 Reilly Baker MD, PHD Surgeon Neurosurgery 01/20/22 Dafne Hilton MD [address] [place] [address] Specialist Cardiology 10/13/22 Desi Swenson NP [address] [place] [address] Cardiology 02/29/24 documented as of this encounter
--- OUTSIDE RECORDS SUMMARY | 2024-08-31 15:05 | XMS_ITS | Clinical Summary ---
Author Organization [facility] Address [address] [facility] [place] [address] Care Team Providers Care Neuropsychiatrist Name Role Phone Reilly Baker MD, PHD Unavailable Unava Wayne Blackman Primary Care Provider [phone] Dafne Hilton MD Unavailable [phone] Desi Swensno NP Unavailable [phone] Allergies No known active allergies Medications Medication Sig Dispensed Refills Start Date End Date Status SPACER DEVICE-ADULT Please use with inhaler 1 Device 0 09/28/2019 Active Meclizine HCl 12.5 MG Tab Take 1 Tab by mouth 3 times daily as needed (Vertigo). 30 Tab 0 07/31/2020 Active docusate sodium (Colace) 100 MG capsule Take 1 Capsule by mouth 2 times daily. 60 Capsule 11 11/03/2021 Active ALBUTEROL SULFATE (ProAir HFA) 108 (90 Base) MCG/ACT Aero SolnIndications:Ecze ma, unspecified type,Arthritis of foot, right,Aspiration into airway, sequela,Cough,Tremor ,Left-sided chest pain,Dysphagia, unspecified type,Tinnitus, left Inhale 2 Puffs into the lungs every 4 hours as needed for Cough, Wheezing or Shortness of Breath. 8.5 g 5 02/17/2022 Active triamcinolone (KENALOG) 0.1 % lotionIndications:Ec zema, unspecified type,Arthritis of foot, right,Aspiration into airway, sequela,Cough,Tremor ,Left-sided chest pain,Dysphagia, unspecified type,Tinnitus, left APPLY SPARINGLY TO AFFECTED AREAS TWICE DAILY NEEDED 60 mL 1 08/24/2022 Active sucralfate (CARAFATE) 1 GM/10ML suspension Take 10 mL by mouth 4 times daily. 1200 mL 11 02/18/2023 Active esomeprazole (NexIUM) 40 MG capsule Take 1 Capsule by mouth 2 times daily (before meals). Take On empty stomach, wait 30 mins and then eat to activate the medication- before breakfast and supper. 60 Capsule 11 02/18/2023 Active tacrolimus (PROTOPIC) 0.1 % ointment APPLY 1 APPLICATION OF OINTMENT TOPICALLY TO THE RIGHT FOOT RASH ONCE DAILY 0 04/16/2023 Active lidocaine-prilocaine (EMLA) cream APPLY ONE GRAM OF CREAM TOPICALLY TO THE RIGHT AND LEFT FOOT TWICE DAILY DIRECTED FOR 30 DAYS 0 07/21/2023 Active gabapentin (NEURONTIN) 300 MG capsule TAKE 1 CAPSULE BY MOUTH THREE TIMES DAILY 0 07/21/2023 Active Jublia 10 % Solution APPLY SOLUTION TOPICALLY ONCE DAILY FOR 90 DAYS 0 07/06/2023 Active ibuprofen (ADVIL,MOTRIN) 600 MG tabletIndications:Tr igger finger, left middle finger Take 1 Tablet by mouth 3 times daily (with meals) for 5 days. 15 Tablet 0 08/06/2023 Active lidocaine (Lidoderm) 5 % Place 1 Patch onto the skin every 24 hours for 28 days. Apply for no more than 12 hours in any 24 hour period. 28 Patch 3 08/09/2023 Active losartan (COZAAR) 25 MG tablet Take 1 Tablet by mouth daily. 90 Tablet 1 08/09/2023 Active Diclofenac Sodium 1 % GelIndications:Prima ry osteoarthritis of right knee,Primary osteoarthritis of left knee Apply 4 g topically 4 times daily as needed for Other (arthritis pain). 100 g 3 08/10/2023 Active Multiple Vitamin (multivitamin) capsule Take 1 Capsule by mouth. 0 Active ketoconazole (NIZORAL) 2 % cream APPLY CREAM TOPICALLY TO RASH ON FEET TWICE DAILY UNTIL CLEAR 0 09/20/2023 Active finasteride (PROSCAR) 5 MG tablet Take 1 Tablet by mouth. 0 Active clotrimazole-betamet hasone (LOTRISONE) cream Apply 1 Applicator topically. 0 01/08/2023 Active clobetasol (TEMOVATE) 0.05 % cream Apply to affected areas twice daily x 2 weeks then sparingly as needed . 0 07/09/2021 Active chlorhexidine (PERIDEX) 0.12 % solution RINSE MOUTH WITH 15ML (1 CAPFUL) FOR 30 SECOUNDS IN THE MORNING AND EVENING AFTER TOOTHBRUSHING. SPIT OUT AFTER RINSING 0 09/21/2023 Active bisacodyl (DULCOLAX) 5 MG EC tablet Take 2 tabs at 6pm as directed. 0 08/26/2023 Active EQ Pain Reliever 500 MG tablet TAKE 1 TABLET BY MOUTH EVERY 4 TO 6 HOURS NEEDED 0 09/21/2023 Active atorvastatin (Lipitor) 10 MG tablet Take 1 Tablet by mouth daily for 360 days. 90 Tablet 1 12/20/2023 Active EQ Aspirin Adult Low Dose 81 MG EC tablet Take 1 tablet by mouth once daily 90 Tablet 1 01/18/2024 Active Spacer/Aero-Holding Chambers (AeroChamber Plus Michael-Vu Large) Misc Please use with inhaler 0 09/28/2019 Active polyethylene glycol (GoLYTELY,NuLYTELY) 236 g suspension Take 4,000 mL by mouth. 0 08/26/2023 Active Active Problems Problem Noted Date History of ST elevation myocardial infar ction (STEMI) 03/06/2024 History of coronary artery stent placeme nt 03/06/2024 Hyperlipidemia 03/06/2024 Last Assessment & Plan: As discussed above, the patient has been off his statin since at least December 2023. We will update a lipid panel today and readdress this as needed; given his history of coronary artery disease, LDL goal is less than 70. Shortness of breath 03/06/2024 Last Assessment & Plan: The patient reports a history of shortness of breath with exertion; of course this could be related to his underlying coronary artery disease which will be evaluated as outlined above. However, he does report that albuterol rescue inhaler does provide him some relief. He denies any history of underlying pulmonary disease and that he has had normal PFTs in the past. I am unable to find documentation of this in his chart to corroborate this. We will continue to readdress this as needed. Palpitations 03/06/2024 Last Assessment & Plan: He reports palpitations that are quite infrequent; they resolve spontaneously after a very brief time and he has not had them occur within the last 2 months. If these palpitations increase in frequency, duration, or intensity, I have asked that he call the office for further evaluation at which point we will consider ambulatory cardiac monitoring for further evaluation. The patient verbalizes understanding and is in agreement with this plan. Esophageal stenosis 12/20/2023 Dysphagia 09/20/2023 CAD S/P percutaneous coronary angioplast y 08/09/2023 Chronic midline low back pain without sc iatica 08/09/2023 Dizziness 04/30/2023 Last Assessment & Plan: Brief and random episodes of dizziness that he is unable to qualify further; he does have a history of vertigo which may be causative. I have asked him to return to care for any worsening symptoms and I have also asked him to check his blood pressure when these episodes occur. The patient verbalizes understanding and agreement with this plan. Encounter for preprocedural cardiovascul ar examination 04/30/2023 Coronary artery disease invo lving red devil coronary artery of red devil heart with angina pectoris 12/17/2022 Last Assessment & Plan: The patient presents today reporting symptoms of chest pain and shortness of breath with exertion that resolved with rest; sometimes his chest discomfort will wake him at night as well. He also reports that he has not been on his statin for approximately 2 to 3 months now; he reports that his PCP sent it to the pharmacy but the pharmacy never received the refill. He subsequently ran out and stopped taking it. We will update a lipid panel today to reevaluate this and restart statin therapy as appropriate. Given the above, we will update an ischemic workup today with a pharmacologic nuclear stress test; the patient has a history of both knee and lower back pain and will be unable to ambulate on a treadmill. He was encouraged to be mindful of his symptoms in the interim, seeking emergent medical attention as necessary. He is no longer on Brilinta, stating he stopped this at the 1 year marie status post stent placement. Continue with daily baby aspirin; he is not on beta-blockade due to baseline bradycardia. Patient advised to seek emergency medical attention by calling 911 if they were to develop severe dyspnea, chest pain that did not resolve with rest, or if they were to faint. Benign prostatic hyperplasia without low er urinary tract symptoms 10/06/2022 Gastroesophageal reflux disease with eso phagitis without hemorrhage 08/14/2022 White coat syndrome with hypertension Last Assessment & Plan: Blood pressure is well-controlled on current medical therapy; continue losartan. We will update a metabolic panel today. JENNIFER (obstructive sleep apnea) 08/14/2022 Last Assessment & Plan: The patient was unable to tolerate CPAP and has not been wearing it for at least the last 6 months. We discussed the potential long-term implications of untreated sleep apnea as it relates to his cardiovascular health; he verbalizes understanding of this and has been considering following up with a digital business analyst. I have encouraged him to do so. Trigger finger, left middle finger 08/05 Ganglion cyst of flexor tendon sheath Gastric erosions 04/27/2022 Passage of loose stools 04/27/2022 Elevated random blood glucose level 10/11 Multiple renal cysts 05/08/2020 Overview: Right renal cysts seen on CT scan 04/2020. Too small to characterize. Tiny right renal cyst seen on ultrasound 06/12/2021. History of partial thyroidectomy 020 Overview: Dr. Salamanca 2019 Unilateral partial vocal cord paralysis 04/09/2020 Liver enzyme elevation 04/09/2020 S/P TURP 02/22/2020 Constipation 01/26/2020 Vertigo 01/26/2020 Chronic nonintractable headache 01/26/20 20 Status post thyroidectomy 08/03/2019 Thyroid nodule 06/29/2019 Overview: Pathology suspeciosu for hurtle cell neoplasm Hx of adenomatous colonic polyps 019 Overview: two rectal polyps. Repeat 5 years. Allergic rhinitis due to pollen 09/21/19 19 BPH associated with nocturia 11/16/2017 Overview: Seeing Dr. Huggins yearly Herpes zoster without complication 10/15 Osteoarthritis 12/10/2016 Overview: Thoracic, & Lumbosacral Spine, Knees, Big Toe Lumbar disc herniation with radiculopath y 12/10/2016 Esophageal reflux 11/28/2014 Mild tricuspid regurgitation 10/18/2014 Last Assessment & Plan: No appreciable murmur on exam today and no symptoms to suggest worsening valvular dysfunction. Will continue to monitor with serial echocardiograms as indicated. Proteinuria 09/27/2014 Overview: Sees Dr. Mccormick Hematuria, microscopic 07/13/2013 Overview: negative urological workup. Dr. Huggins Chronic gout without tophus 12/17/2011 Overview: Possible diagnosis Straining with stools Resolved Problems Problem Noted Date Resolved Date Benign paroxysmal positional vertigo 06/23/2018 05/30/2019 Immunizations Name Administration Dates Next Due COVID-19 (Pfizer) 04/23/2021,10/22/2020,10/01/19 21 COVID-19 (Pfizer) Pt Reported 10/22/2020, 021 Influenza (> 6 Months) 05/06/2019,2014,05/16/2014,05/26,04/19/2012 Influenza (>6 Months) Split Preservative Free 03/20/2016 Influenza Vaccine-preservati ve Free-quadrivalent 4 Years 06/23/2018 Influenza Vaccine-quadrivale nt 4 Years Plus 06/18/2017 Influenza vaccine high dose age 65 and over 04/06/2023,04/08/2021,04/09/2020,05/06 Pneumoccoccal(Adult) Polysac charide PPSV23 04/28/2019 Pneumococcal Conjugate PCV-13 04/09/2020 Shingrix (Patient reported) 01/24/2020, 0 Shingrix (Recombinant zoster vaccine) 01/24/2020 ,09/06/2019 Tdap 04/26/2020,08/31/2012 Zostavax 09/16/2015 Family History Medical History Relation Name Comments Autism Daughter 1 No Known Problems Daughter 2 Hypertension Father No Known Problems Maternal Grandfather No Known Problems Maternal Grandmother Cancer of the Lung Mother CAD unknown heart condition Mother No Known Problems Paternal Grandfather No Known Problems Paternal Grandmother Thyroid cancer Sister 1 Cancer, Other Sister 2 unknown CA Colon Negative Hx Relation Name Status Comments Daughter 1 Alive Daughter 2 Alive Father Maternal Grandfather Maternal Grandmother Mother Paternal Grandfather Paternal Grandmother Sister 1 Alive Sister 2 Social History Tobacco Use Types Packs/Day Years Used Date Smoking Tobacco: Never Smokeless Tobacco: Never Tobacco Cessation:Counseling Given: Not Answered Alcohol Use Standard Drinks/Week Comments No 0 (1 standard drink = 0.6 oz pur e alcohol) Sex Assigned at Date Recorded Not on file Job Start Date Occupation Industry Not on file Not on file Not on file Last Filed Vital Signs Vital Sign Reading Time Taken Comments Blood Pressure 145/82 03/21/2024 10:10 AM EDT Pulse 54 03/21/2024 10:10 AM EDT Temperature 36.4 ??C (97.6 ??F) 12/20/2023 8:29 AM ED T Respiratory Rate 14 12/20/2023 8:29 AM EDT Oxygen Saturation 96% 03/21/2024 10:10 AM EDT Inhaled Oxygen Concentration - - Weight 64.9 kg (143 lb) 03/21/2024 10:10 AM EDT Height 167.6 cm (5' 6 ) 03/21/2024 10:10 AM EDT Body Mass Index 23.08 03/21/2024 10:10 AM EDT Plan of Treatment Upcoming Encounters Date Type Specialty Care Team Description 04/29/2027 Marketing Planning Manager Report Abstract, Provider Health Maintenance Due Date Last Done Comments Covid-19 Vaccine (2022-2 4 season) 2024 04/23/2021, 10/22/2020, 10/22/2020, Additional history exists INFLUENZA (#1) 2024 04/06/2023, 03/13, 04/09/2020, Additional history exists DEPRESSION SCREEN 04/06/2024 04/06/2023 (Co mpleted), 10/29/2021, 07/09/2021 (Completed) FALL RISK ASSESSMENT 04/06/2024 04/06/2023 (Completed), 07/09/2021 (Completed) DEPRESSION SCREENING/FOLLOWUP 07/12/2024 (Completed), 10/29/2021 (Completed), 07/09/2021 (Completed), Additional history exists COLON CANCER SCREENING 09/08/2028, 02/14/2019 (External Completion), 02/14/2019, Additional history exists CHOLESTEROL SCREENING 03/06/2029 03/06/2024 , 08/17/2023, 04/05/2023, Additional history exists DTAP/TDAP/TD (3 - Td or Tdap) 04/26/2030 04/26/2020, 08/31/2012 SHINGLES VACCINE Completed 01/24/2020, , 09/06/2019, Additional history exists PNEUMOCOCCAL VACCINE Completed 04/09/2020, 04/28/20 HEPATITIS C SCREENING Completed 04/18/2020, 013 Care Teams Neuropsychiatrist Relationship Specialty Start Date End Date Wayne Jaimes [address] [place], [place] [address] [address] PCP - General Internal Medicine 02/16/22 Reilly Baker MD, PHD Surgeon Neurosurgery 01/20/22 Dafne Hiltno MD [address] [place] [address] Specialist Cardiology 10/13/22 Desi Swenson NP [address] [place] [id number] Cardiology 02/29/24
--- OUTSIDE RECORDS SUMMARY | 2024-08-31 15:05 | XMS_ITS | Encounter Summary ---
Author Organization [facility] Address [address] [place] [address] Care Team Providers Care Denial Resolution Specialist Name Role Phone Wayne Jaimes MD Primary Care Provider Reason for Referral * Pain Management (Routine) - Closed Specialty Diagnoses / Procedures Referred By Víctorac t Referred To Contact Pain Medicine Diagnoses Radiculopathy, lumbar region Procedures INJECTION STEROID EPIDURAL TRANSFORAMINAL BILATERAL Vladislav Antunez DO [address] [address] Phone: tel: fax: Referral ID Status Reason Start Date Expiration Date Visits Re quested Visits Authorized [id number] Closed 08/02/2024 08/02/2025 1 1 Reason for Visit * Pain Management (Routine) - Closed Specialty Diagnoses / Procedures Referred By Víctorac t Referred To Contact Pain Medicine Diagnoses Radiculopathy, lumbar region Procedures INJECTION STEROID EPIDURAL TRANSFORAMINAL BILATERAL Vladislav Antunez DO [address] [address] Phone: tel: fax: Referral ID Status Reason Start Date Expiration Date Visits Re quested Visits Authorized [id number] Closed 08/02/2024 08/02/2025 1 1 Encounter Details Date Type Department Care Team (Latest Contact Info) Description 08/08/2024 11:38 AM EST - 08/08/2024 11:59 PM EST Hospital Encounter [facility] Pain Management [address] [place] [address] Vladislav Antunez DO [address] [address] Bolivar Palmer MD [address] [place] [address] Radiculopathy, lumbar region Discharge Disposition: Home or Self Care Social [...] AM EST documented as of this encounter Last Filed Vital Signs Vital Sign Reading [...] Mass Index 23.4 08/08/2024 11:57 AM EST documented in this encounter Discharge Instructions * Attachments The following attachments cannot be sent through Care Everywhere. * Lumbar Epidural Steroid: Post-op (Lithuanian) * Sedation (Lithuanian) documented in this encounter Medications at Time of Discharge [...] or Self Care documented in this encounter H&P Notes * Vladislav Antunez DO - 08/08/2024 12:30 PM EST Please refer to our office notes for complete details of history of present illness and physical examination. They were reviewed. No changes are reported. documented in this encounter Procedure Notes * Richie South RN - 08/08/2024 12:30 PM EST [phone] * Loreta Fisher RN - 08/08/2024 12:30 PM EST All dc instructions were reviewed w/pt prior to dc. Pt states he has had procedure before. * Vladislav Antunez DO - 08/08/2024 12:30 PM EST Procedure performed: Bilateral L5 TFESI Pre-Op diagnosis: Lumbar radiculitis Postop diagnosis: Same Physician: Vladislav Antunez DO Anesthesia: MAC Procedure in detail: After informed consent was obtained patient was brought in the procedure room and placed in the prone position on the procedure table. Skin over lumbar sacral area was prepped and draped in usual sterile manner. Left L5 pedicle was visualized utilizing fluoroscopy. 3.5 22-gauge spinal needle was introduced percutaneously and advanced toward the pedicle. Needle placement was verified utilizing AP and lateral fluoroscopic images. Total volume of 3 cc of Isovue contrast solution was utilized to establish appropriate needle positioning. Excellent flow through the neural foramen and epidural spread was visualized without evidence of vascular uptake. Total volume of 6 cc containing 3 cc of 1% lidocaine, 40 mg of triamcinolone and normal saline solution were injected after negative aspiration for blood and cerebrospinal fluid. The identical procedure was repeated on the right side. Patient tolerated procedure very well without complications. Patient was transported to recovery room and after observation discharged home in stable condition accompanied by family. Postprocedure instructions were provided. Radiation exposure was documented in the chart. documented in this encounter Plan of Treatment Upcoming Encounters Date Type Department Care Team (Late st Contact Info) Description 09/18/2024 8:30 AM EDT Office Visit Adult Medicine [address] [address] Alice Schreiber PA [address] [place] [address] 10/04/2024 3:30 PM EDT Office Visit Orthopedic Surgery - [place] [address] [id number] Wen Herrmann NP 175 [facility] [address] [place] [address] 11/15/2024 3:15 PM EDT Office Visit Nephrology [address] [address] Eduard Mccormick MD [address] [place] [address] Scheduled Orders Name Type Priority Associated Diagnoses Orde r Schedule INJECTION STEROID EPIDURAL TRANSFORAMINAL BILATERAL Procedures Routine Radiculopathy, lumbar region Once for 1 Occurrences starting 08/08/2024 until 08/08/2024 documented as of this encounter Visit Diagnoses Diagnosis Radiculopathy, lumbar region Thoracic or lumbosacral neuritis or radiculitis, unspecified documented in this encounter Administered Medications Inactive Administered Medications - up to 3 most recent administrations Medication Order MAR Action Action Date Dose Rate Site iopamidoL (ISOVUE-300) 300 mg iodine /mL (61 %) solution As needed, Starting on Wed08/08/24 at 1257, Intraprocedure Given 08/08/2024 12:57 PM EST 3 mL Other lactated Ringer's infusion 100 mL/hr, intravenous, Continuous, Starting on Wed08/08/24 at 1215, Preprocedure New Bag 08/08/2024 12:49 PM EST Continued by Anesthesia 08/08/2024 12:45 PM EST 100 mL/hr New Bag 08/08/2024 12:11 PM EST 100 mL/hr 100 mL/hr lidocaine (XYLOCAINE) 1 % injection As needed, Starting on Wed08/08/24 at 1256, Intraprocedure Given 08/08/2024 12:56 PM EST 5 mL Back triamcinolone acetonide (KENALOG-40) 40 mg/mL injection As needed, Starting on Wed08/08/24 at 1256, Intraprocedure Given 08/08/2024 12:56 PM EST 80 mg Other documented in this encounter Historical Medications * This list may reflect changes made after this encounter. albuterol HFA (PROAIR HFA ; PROVENTIL HFA ; VENTOLIN HFA) 90 mcg/actuation inhaler Inhale 2 puffs by mouth every 6 (six) hours if needed for wheezing. cimetidine (TAGAMET) 800 mg tablet Take 1 tablet (800 mg total) by mouth at bedtime. added in this encounter Orders Medications Ordered That Kobi ht Not Have Been Administered Count Last Ordered Date First Ordered Date sodium chloride 0.9 % flush 10 mL 2 025 Discharge Count Last Ordered Date First Orde red Date DISCHARGE PATIENT 1 08/08/2024 documented in this encounter Care Teams Denial Resolution Specialist Relationship Specialty Start Date End Date Wayne Jaimes MD [address] [place] [address] PCP - General Internal Medicine 02/16/22 documented as of this encounter
--- OUTSIDE RECORDS SUMMARY | 2024-08-31 15:05 | XMS_ITS | Encounter Summary ---
Author Organization [facility] Address [address] [place] [address] Care Team Providers Care Event Marketing Coordinator Name Role Phone Brett Velásquez MD Primary Care Provider Keisha Luna MD Primary Care Provider [phone] Brett Velásquez MD Primary Care Provider Reilly Stewart MD, PHD Unavailable Unava ilable Brett Velásquez MD Primary Care Provider Wayne Dickson Primary Care Provider [phone] Dafne Hilton MD Unavailable [phone] Desi Swenson NP Unavailable [phone] Encounter Details Date Type Department Care Team Description 06/18/2014 Atomic Welder Report Medical Records [address] [place] [address] Aleksandar Huggins MD Social History Tobacco Use [...] Date Type Specialty Care Team Description 04/29/2027 Atomic Welder Report Abstract, Provider documented as of this encounter Visit Diagnoses Not on filedocumented in this encounter Care Teams Event Marketing Coordinator Relationship Specialty Start Date End Date Brett Velásquez MD PCP - General Internal Medicine 10/29/11 06/19/15 Keisha Chavez MD [address] [place] [address] PCP - General Internal Medicine 06/20/15 04/20/16 Brett Velásquez MD PCP - General Internal Medicine 04/21/16 01/25/22 Brett Velásquez MD PCP - General Internal Medicine 01/26/22 02/15/22 Wayne Jaimes [address] [place] [address] PCP - General Internal Medicine 02/16/22 Reilly Baker MD, PHD [address] [place] [address] Surgeon Neurosurgery 01/20/22 Dafne Hilton MD [address] [place] [address] Specialist Cardiology 10/13/22 Desi Swenson NP [address] [place] [address] Cardiology 02/29/24 documented as of this encounter
--- OUTSIDE RECORDS SUMMARY | 2024-08-31 15:05 | XMS_ITS | Encounter Summary ---
Author Organization [facility] Address [address] [place] [address] Care Team Providers Care Carcass Splitter Name Role Phone Reilly Baker MD, PHD Unavailable Unava ilable Wayne Jaimes Primary Care Provider [phone] Dafne Hilton MD Unavailable [phone] Desi Swenson NP Unavailable [phone] Encounter Details Date Type Department Care Team Description 08/06/2023 Hospital Medical Records [address] [place] [address] Ankita Yanes MD [address] [place] [address] [address] [place] [address] Social History Tobacco Use Types Packs/Day Years [...] Date Type Specialty Care Team Description 04/29/2027 Flow Trader Report Abstract, Provider documented as of this encounter Visit Diagnoses Not on filedocumented in this encounter Care Teams Carcass Splitter Relationship Specialty Start Date End Date Wayne Jaimes [address] [place] [address] PCP - General Internal Medicine 02/16/22 Reilly Baker MD, PHD Surgeon Neurosurgery 01/20/22 Dafne Hilton MD [address] [place] [address] Specialist Cardiology 10/13/22 Desi Swenson NP [address] [place] [address] Cardiology 02/29/24 documented as of this encounter
--- OUTSIDE RECORDS SUMMARY | 2024-08-31 15:05 | XMS_ITS | Encounter Summary ---
Author Organization [facility] Address [address] [place] [address] Care Team Providers Care Range Manager Name Role Phone Brett Velásquez MD Primary Care Provider Reilly Stewart MD, PHD Unavailable UnaBrett Davis MD Primary Care Provider Wayne Dickson Primary Care Provider [phone] Dafne Hilton MD Unavailable [phone] Desi Swenson NP Unavailable [phone] Encounter Details Date Type Department Care Team Description 10/31/2021 [facility] Medical [facility] [address] [address] Ena Whipple, PA-C [address] [address] Social History Tobacco Use Types Packs/Day Years [...] suspected to have Coronavirus/COVID-19? No / Unsure 11/03/2021 1:52 PM EDT documented as of this encounter Plan of Treatment Upcoming Encounters Date Type Specialty Care Team Description 04/29/2027 Gasoline Pump Mechanic Report Abstract, Provider documented as of this encounter Visit Diagnoses Not on filedocumented in this encounter Care Teams Range Manager Relationship Specialty Start Date End Date Brett Velásquez MD PCP - General Internal Medicine 04/21/16 01/25/22 Brett Velásquez MD PCP - General Internal Medicine 01/26/22 02/15/22 Wayne Jaimes [address] [place] [address] PCP - General Internal Medicine 02/16/22 Reilly Baker MD, PHD Surgeon Neurosurgery 01/20/22 Dafne Hiltno MD [address] [place] [address] Specialist Cardiology 10/13/22 Desi Swenson NP [address] [place] [address] Cardiology 02/29/24 documented as of this encounter
--- OUTSIDE RECORDS SUMMARY | 2024-08-31 15:05 | XMS_ITS | Encounter Summary ---
Author Organization [facility] Address [address] [place] [address] Care Team Providers Care Companion Name Role Phone Brett Velásquez MD Primary Care Provider Reilly Stewart MD, PHD Unavailable Unava Brett Villegas MD Primary Care Provider Wayne Dickson Primary Care Provider [phone] Dafne Hilton MD Unavailable [phone] Desi Swenson NP Unavailable [phone] Encounter Details Date Type Department Care Team Description 01/20/2021 Property Clerk Report Medical Records [address] [place] [address] Desi Li DPM Social History Tobacco Use [...] have Coronavirus / COVID-19? No / Unsure 01/14/2021 8:16 AM EDT documented as of this encounter Plan of Treatment Upcoming Encounters Date Type Specialty Care Team Description 04/29/2027 Property Clerk Report Abstract, Provider documented as of this encounter Visit Diagnoses Not on filedocumented in this encounter Care Teams Companion Relationship Specialty Start Date End Date Brett Velásquez MD PCP - General Internal Medicine 04/21/16 01/25/22 Brett Velásquez MD PCP - General Internal Medicine 01/26/22 02/15/22 Wayne Jaimes [address] [place] [address] PCP - General Internal Medicine 02/16/22 Reilly Baker MD, PHD Surgeon Neurosurgery 01/20/22 Dafne Hilton MD [address] [place] [address] Specialist Cardiology 10/13/22 Desi Swenson NP [address] [place] [address] Cardiology 02/29/24 documented as of this encounter
--- OUTSIDE RECORDS SUMMARY | 2024-08-31 15:05 | XMS_ITS | Encounter Summary ---
Author Organization [facility] Address [address] [place] [address] Care Team Providers Care Rn Palliative Name Role Phone Brett Velásquez MD Primary Care Provider Reilly Stewart MD, PHD Unavailable Unava ilBrett Bailon MD Primary Care Provider Wayne Dickson Primary Care Provider [phone] Dafne Hilton MD Unavailable [phone] Desi Swenson NP Unavailable [phone] Encounter Details Date Type Department Care Team Description 09/05/2019 [facility] Medical Records [address] [place] [address] Vladislav Antunez DO Social History Tobacco Use [...] Date Type Specialty Care Team Description 04/29/2027 Recovery Advocate Report Abstract, Provider documented as of this encounter Visit Diagnoses Not on filedocumented in this encounter Care Teams Rn Palliative Relationship Specialty Start Date End Date Brett Velásquez MD PCP - General Internal Medicine 04/21/16 01/25/22 Brett Velásquez MD PCP - General Internal Medicine 01/26/22 02/15/22 Wayne Jaimes [address] [place] [address] PCP - General Internal Medicine 02/16/22 Reilly Baker MD, PHD Surgeon Neurosurgery 01/20/22 Dafne Hilton MD [address] [place] [address] Specialist Cardiology 10/13/22 Desi Swenson NP [address] [place] [address] Cardiology 02/29/24 documented as of this encounter
--- OUTSIDE RECORDS SUMMARY | 2024-08-31 15:05 | XMS_ITS | Encounter Summary ---
Author Organization [facility] Address [address] [place] [address] Care Team Providers Care Banquet Server On Call Name Role Phone Reilly Baker MD, PHD Unavailable Unava ilable Wayne Jaimes Primary Care Provider [phone] Dafne Hilton MD Unavailable [phone] Desi Swenson NP Unavailable [phone] Encounter Details Date Type Department Care Team Description 03/21/2024 Coin Purse Framer Report Medical Records [address] [place] [address] Vladislav Antunez DO Social History Tobacco Use [...] Date Type Specialty Care Team Description 04/29/2027 Coin Purse Framer Report Abstract, Provider documented as of this encounter Visit Diagnoses Not on filedocumented in this encounter Care Teams Banquet Server On Call Relationship Specialty Start Date End Date Wayne Jaimes [address] [place] [address] PCP - General Internal Medicine 02/16/22 Reilly Baker MD, PHD Surgeon Neurosurgery 01/20/22 Dafne Hilton MD [address] [place] [address] Specialist Cardiology 10/13/22 Desi Swenson NP [address] [place] [address] Cardiology 02/29/24 documented as of this encounter
--- OUTSIDE RECORDS SUMMARY | 2024-08-31 15:05 | XMS_ITS | Encounter Summary ---
Author Organization [facility] Address [address] [place] [address] Care Team Providers Care Picture Hanger Name Role Phone Brett Velásquez MD Primary Care Provider Reilly Stewart MD, PHD Unavailable Brett España MD Primary Care Provider Wayne Dickson Primary Care Provider [phone] Dafne Hilton MD Unavailable [phone] Desi Swenson NP Unavailable [phone] Reason for Visit * Reason Onset Date Comments Medication Injection, Joint 12/04/2021 LVM advising pt. call [facility] [phone] and provide consent to dispense Gelsyn inj to our office Encounter Details Date Type Department Care Team Description 12/04/2021 Telephone [facility] [address] [address] Ena Whipple PAVenice [address] [address] Medication Injection, Joint (LVM advising pt. call [facility] [phone] and provide consent to dispense Gelsyn inj to our office) Social History Tobacco Use Types Packs/Day Years [...] suspected to have Coronavirus/COVID-19? No / Unsure 11/10/2021 2:20 PM EDT documented as of this encounter Plan of Treatment Upcoming Encounters Date Type Specialty Care Team Description 04/29/2027 Appeals Examiner Report Abstract, Provider documented as of this encounter Visit Diagnoses Not on filedocumented in this encounter Care Teams Picture Hanger Relationship Specialty Start Date End Date Brett Velásquez MD PCP - General Internal Medicine 04/21/16 01/25/22 Brett Velásquez MD PCP - General Internal Medicine 01/26/22 02/15/22 Wayne Jaimes [address] [place] [address] PCP - General Internal Medicine 02/16/22 Reilly Baker MD, PHD Surgeon Neurosurgery 01/20/22 Dafne Hilton MD [address] [place] [address] Specialist Cardiology 10/13/22 Desi Swenson NP [address] [place] [address] Cardiology 02/29/24 documented as of this encounter
--- OUTSIDE RECORDS SUMMARY | 2024-08-31 15:05 | XMS_ITS | Encounter Summary ---
Author Organization [facility] Address [address] [place] [address] Care Team Providers Care Emergency Room Specialist Name Role Phone Reilly Baker MD, PHD Unavailable Unava ilWayne Osborne Primary Care Provider Dafne Hilton MD Unavailable [phone] Desi Swenson NP Unavailable [phone] Reason for Visit * Reason Onset Date Comments Anticoagulation 08/11/[address] Auguste @ [facility] Encounter Details Date Type Department Care Team Description 08/11/2023 Telephone Gastroenterology - [address] [place] [address] Yuliana Auguste MD [address] [place] [id number] Anticoagulation (Colonoscopy 09/09/2023 Dr Auguste @ [facility]) Social History Tobacco Use Types Packs/Day Years [...] encounter Miscellaneous Notes * Telephone Encounter - Alia Brooks L.P.N. - 08/12/2023 9:35 AM EST 08/12/2023 Called patient. Message left for Brilinta hold instructions & letter mailed./dg * Telephone Encounter - Tanja Blount PA-C - 08/11/2023 3:51 PM EST Yes ok to hold Brilinta since it will be exactly 12 months from stent placement. Continue ASA perioperatively. * Telephone Encounter - Alia Brooks L.P.NUsama - 08/11/2023 3:43 PM EST Patient scheduled for colonoscopy 09/09/[address] Auguste @ [facility]. Patient is on Brilinta. Dr Hilton, Please determine if this patient can hold his Birlinta for 7 days prior to his colonoscopy. Please advise. Thanks./dg documented in this encounter Plan of Treatment Upcoming Encounters Date Type Specialty Care Team Description 04/29/2027 Firer Electric Locomotive Report Abstract, Provider documented as of this encounter Visit Diagnoses Not on filedocumented in this encounter Care Teams Emergency Room Specialist Relationship Specialty Start Date End Date Wayne JaimesUsama [address] [place] [address] PCP - General Internal Medicine 02/16/22 Reilly Baker MD, PHD Surgeon Neurosurgery 01/20/22 Dafne Hilton MD [address] [place] [address] Specialist Cardiology 10/13/22 Desi Swenson NP [address] [place] [address] Cardiology 02/29/24 documented as of this encounter
--- OUTSIDE RECORDS SUMMARY | 2024-08-31 15:05 | XMS_ITS | Encounter Summary ---
Author Organization [facility] Address [address] [place] [address] Care Team Providers Care Facsimile Machine Operator Name Role Phone Brett Velásquez MD Primary Care Provider Reilly Stewart MD, PHD Unavailable Unava ilBrett Bailon MD Primary Care Provider Wayne Dickson Primary Care Provider Dafne Hilton MD Unavailable [phone] Desi Swenson NP Unavailable [phone] Encounter Details Date Type Department Care Team Description 01/23/2019 Release of Information Medical Records [address] [place] [address] Abstract, Provider Social History Tobacco Use Types [...] Date Type Specialty Care Team Description 04/29/2027 Securities Broker Report Abstract, Provider documented as of this encounter Visit Diagnoses Not on filedocumented in this encounter Care Teams Facsimile Machine Operator Relationship Specialty Start Date End Date Brett Velásquez MD PCP - General Internal Medicine 04/21/16 01/25/22 Brett Velásquez MD PCP - General Internal Medicine 01/26/22 02/15/22 Wayne Jaimes [address] [place] [address] PCP - General Internal Medicine 02/16/22 Reilly Baker MD, PHD Surgeon Neurosurgery 01/20/22 Dafne Hilton MD [address] [place] [address] Specialist Cardiology 10/13/22 Desi Swenson NP [address] [place] [address] Cardiology 02/29/24 documented as of this encounter
== END 2024-08-31 14:23 | disposition home or self-care (01) ==
PROVIDERS: PCP Internal Medicine; Visit Provider Student in an Organized Health Care Education/Training Program
DX: E04.1 Nontoxic single thyroid nodule (principal)
CPT/HCPCS: 99213

== ENCOUNTER → 2024-08-31 13:58 | Outpatient (BNVA) | payer OTHER, SELFPAY | PROVIDERS: PCP Internal Medicine; Visit Provider Student in an Organized Health Care Education/Training Program | DX: E04.1 Nontoxic single thyroid nodule (principal) | CPT/HCPCS: 99212 ==

== ENCOUNTER → 2024-09-13 06:47 | Outpatient (REF) | payer OTHER, SELFPAY ==
--- NOTE | ~2024-09-13 | NM_ITS ---
Lexiscan Myocardial perfusion study Indication: Shortness of breath to evaluate for myocardial ischemia Technique: The patient was brought in for a Lexiscan perfusion study on September 13, 2024 and was injected 0.4 mg of Lexiscan intravenously. Within a minute of this injection 25 mCi of sestamibi was given intravenously. Images were obtained using the SPECT gamma camera interlaced with the gating device. Images were obtained in supine position. Resting perfusion study was performed on September 14, 2024. Patient was administered 25 mCi of sestamibi intravenously at rest. Images were then obtained in supine position. Images of evident without CT attenuation. Total DLP 83 mGy-cm. Images were processed with the software and compared side to side in short axis, horizontal long axis and vertical long axis views. Findings: The stress perfusion study showed images show small area of the basal inferior as well as mid inferior and basal lateral and basal inferolateral wall reduced uptake. Remainder of the LV myocardium is normally perfused. Attenuated corrected images are suboptimal. The gated study shows normal LV systolic function with calculated LVEF of 67%. LV cavity is normal in size. The gated study shows normal systolic wall thickening and contraction of segments. Resting study shows nonattenuated images show normal uptake of radiotracer in all segments of the LV myocardium. Gating at rest reveals normal systolic wall motion with ejection fraction at greater than 60%. The findings are consistent with small to moderate area of mild intensity basal inferior, mid inferior, basal lateral and inferolateral wall reversible defect suggestive of ischemia. NM/NM cardiolite stress test Impression: 1. Myocardial perfusion imaging study shows moderate area MILD intensity ischemia and circumflex/RCA distribution 2. Gated LVEF is 67% 3. Transient ischemic dilatation not present Nondiagnostic changes on EKG. Electronically signed by: Gino Pinto MD 09/14/2024 06:06 PM [facility] [place]
--- OUTSIDE RECORDS SUMMARY | 2024-09-13 06:51 | XMS_ITS | Encounter Summary ---
Author Organization [facility] Address [address] [place] [address] Care Team Providers Care Remedial Project Manager Name Role Phone Brett Velásquez MD Primary Care Provider Reilly Stewart MD, PHD Unavailable Unava ilBrett Bailon MD Primary Care Provider Wayne Dickson Primary Care Provider [phone] Dafne Hilton MD Unavailable [phone] Desi Swenson NP Unavailable [phone] Encounter Details Date Type Department Care Team Description 12/15/2019 Multiple Drum Sander Helper Report Medical Records [address] [place] [address] Vipin Cherry Social History Tobacco Use Types Packs/Day Years [...] Date Type Specialty Care Team Description 04/29/2027 Multiple Drum Sander Helper Report Abstract, Provider documented as of this encounter Visit Diagnoses Not on filedocumented in this encounter Care Teams Remedial Project Manager Relationship Specialty Start Date End Date Brett Velásquez MD PCP - General Internal Medicine 04/21/16 01/25/22 Brett Velásquez MD PCP - General Internal Medicine 01/26/22 02/15/22 Wayne Jaimes [address] [place] [address] PCP - General Internal Medicine 02/16/22 Reilly Baker MD, PHD Surgeon Neurosurgery 01/20/22 Dafne Hilton MD [address] [place] [address] Specialist Cardiology 10/13/22 Desi Swenson NP [address] [place] [address] Cardiology 02/29/24 documented as of this encounter
--- OUTSIDE RECORDS SUMMARY | 2024-09-13 06:51 | XMS_ITS | Encounter Summary ---
Author Organization [facility] Address [address] [place] [address] Care Team Providers Care Summer Sessions Director Name Role Phone Brett Velásquez MD Primary Care Provider Keisha Luna MD Primary Care Provider [phone] Brett Velásquez MD Primary Care Provider Reilly Stewart MD, PHD Unavailable Unava ilable Brett Velásquez MD Primary Care Provider Wayne Dickson Primary Care Provider [phone] Dafne Hilton MD Unavailable [phone] Desi Swenson NP Unavailable [phone] Encounter Details Date Type Department Care Team Description 04/29/2012 Body And Frame Technician Report Medical Records [address] [place] [address] Shaquille Chandra Social History Tobacco Use Types [...] Date Type Specialty Care Team Description 04/29/2027 Body And Frame Technician Report Abstract, Provider documented as of this encounter Visit Diagnoses Not on filedocumented in this encounter Care Teams Summer Sessions Director Relationship Specialty Start Date End Date Brett Velásquez MD PCP - General Internal Medicine 10/29/11 06/19/15 Keisha Chavez MD [address] [place] [address] PCP - General Internal Medicine 06/20/15 04/20/16 Brett Velásquez MD PCP - General Internal Medicine 04/21/16 01/25/22 Brett Velásquez MD PCP - General Internal Medicine 01/26/22 02/15/22 Wayne Jaimes [address] [place] [address] PCP - General Internal Medicine 02/16/22 Reilly Baker MD, PHD [address] [place] [address] Surgeon Neurosurgery 01/20/22 Dafne Hilton MD [address] [place] [address] Specialist Cardiology 10/13/22 Desi Swenson NP [address] [place] [address] Cardiology 02/29/24 documented as of this encounter
--- OUTSIDE RECORDS SUMMARY | 2024-09-13 06:51 | XMS_ITS | Encounter Summary ---
Author Organization [facility] Address [address] [place] [address] Care Team Providers Care Crane Chaser Name Role Phone Brett Velásquez MD Primary Care Provider Keisha Luna MD Primary Care Provider [phone] Brett Velásquez MD Primary Care Provider Reilly Stewart MD, PHD Unavailable Unava ilable Brett Velásquez MD Primary Care Provider Wayne Dickson Primary Care Provider [phone] Dafne Hitlon MD Unavailable [phone] Desi Swenson NP Unavailable [phone] Encounter Details Date Type Department Care Team Description 05/17/2012 Museum Or Zoo Director Report Medical Records [address] [place] [address] Shaquille Chandra Social History Tobacco Use Types [...] Date Type Specialty Care Team Description 04/29/2027 Museum Or Zoo Director Report Abstract, Provider documented as of this encounter Visit Diagnoses Not on filedocumented in this encounter Care Teams Crane Chaser Relationship Specialty Start Date End Date Brett Velásquez MD PCP - General Internal Medicine 10/29/11 06/19/15 Keisha Chavez MD [address] [place] [address] PCP - General Internal Medicine 06/20/15 04/20/16 Brett Velásquez MD PCP - General Internal Medicine 04/21/16 01/25/22 Brett Velásquez MD PCP - General Internal Medicine 01/26/22 02/15/22 Wayne Jaimes [address] [place] [address] PCP - General Internal Medicine 02/16/22 Reilly Baker MD, PHD [address] [place] [address] Surgeon Neurosurgery 01/20/22 Dafne Hilton MD [address] [place] [address] Specialist Cardiology 10/13/22 Desi Swenson NP [address] [place] [address] Cardiology 02/29/24 documented as of this encounter
--- OUTSIDE RECORDS SUMMARY | 2024-09-13 06:51 | XMS_ITS | Clinical Summary ---
Author Organization [facility] Address 100 [facility] [address] [place] [address] Phone Care Team Providers Care Reprographics Associate Name Role Phone Shelbie Upton MD Primary Care Provider [phone] Allergies No known active allergies Medications albuterol [...] Mass Index - - Plan of Treatment Health Maintenance Due Date Last Done Comments Colorectal Cancer Screening: Annual FOBT 2002 Colorectal Cancer Screening: Colonoscopy 2002 Colorectal Cancer Screening: Sigmoidoscopy 2002 Influenza Vaccine (#1) 2024 3, 04/08/2021, 04/09/2020, Additional history exists Pneumococcal Vaccine: 65+ Years Completed 04/09/2020, 04/28/2019 Hepatitis B Vaccine Aged Out No longe r eligible based on patient's age to complete this topic Insurance [place]ID [place] [facility] DUAL COMPLETE ([id number]) [facility] DUAL COMPLETE ([id number]) [place]ICAID [place] Care Teams Reprographics Associate Relationship Specialty Start Date End Date Shelbie Upton MD [address] [place] [address], [address] [place], [place] [id number] PCP - General Internal Medicine 02/04/24
--- OUTSIDE RECORDS SUMMARY | 2024-09-13 06:51 | XMS_ITS | Clinical Summary ---
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 12/17/2022 ST elevation [...] Description 08/08/2024 12:45 PM EST Anesthesia Event [facility] [address] [place] [address] Bolivar Palmer MD 08/08/2024 11:38 AM EST - 08/08/2024 11:59 PM EST Hospital Encounter [facility] [address] [place] [address] Vladislav Antunez DO Chang, Daniel J, MD Radiculopathy, lumbar region Discharge Disposition: Home or Self Care 08/08/2024 6:21 AM EST - 08/08/2024 11:59 PM EST Hospital Encounter [facility] Xray [address] [place] [id number] Pain Discharge Disposition: Home or Self Care 07/13/2024 Telephone [facility] Cardiology [address] [place] [address] [place] [phone] Wayne Jaimes MD Medical Records from Last 3 Months Immunizations Name Administration [...] fracture repair UPPER GASTROINTESTINAL ENDOSCOPY 01/13/2017 PROCEDURE: [place] UPPER GI ENDOSCOPY PERFORMED; COMMENT: normal UPPER GASTROINTESTINAL ENDOSCOPY 03/08/12 PROCEDURE: [place] UPPER GI ENDOSCOPY PERFORMED; COMMENT: normal OTHER [...] Dr. Bell UPPER GASTROINTESTINAL ENDOSCOPY 09/17/2020 PROCEDURE: [place] UPPER GI ENDOSCOPY PERFORMED; COMMENT: Normal findings. 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 (CMS/HCC) 12/17/2022 DX:Coronary artery dise ase involving [place] coronary artery of [place] heart with angina pectoris (HCC) Esophageal dysmotility DX:Esopha geal dysmotility Gastritis DX:Gastritis Dysphagia DX:Dysphagia Esophageal dysmotility DX:Esopha geal dysmotility Colon polyps DX:Colon polyps History of [place] (myocardial infarction) DX:History of [place] (myocardial infarction) Hyperlipidemia 03/06/2024 DX:Hyperlipidemi a JENNIFER [...] 8:30 AM EDT Office Visit Adult Medicine [address] [address] Alice Schreiber PA [address] [place] [address] 10/04/2024 3:30 PM EDT Office Visit Orthopedic Surgery - [place] [address] [facility] [address] [place] [address] Wen Herrmann NP 175 [facility] 250 [place] [address] 11/15/2024 3:15 PM EDT Office Visit Nephrology [facility] [address] [place] [address] Eduard Mccormick MD [address] [facility] 200 [place] [address] Health Maintenance Due Date Last Done Comments [...] HEALTHCARE MEDICARE [place]ICAID - [place] Care Teams Outside Maintenance Worker Relationship Specialty Start Date End Date Wayne Jaimes MD [address] [place] [address] PCP - General Internal Medicine 02/16/22
--- OUTSIDE RECORDS SUMMARY | 2024-09-13 06:51 | XMS_ITS | Encounter Summary ---
Author Organization [facility] Address [address] [place] [address] Care Team Providers Care Produce Sorter Name Role Phone Keisha Chavez MD Primary Care Provider [phone] Brett Velásquez MD Primary Care Provider Reilly Stewart MD, PHD Unavailable Unava ilBrett Bailon MD Primary Care Provider Wayne Dickson Primary Care Provider [phone] Dafne Hilton MD Unavailable [phone] Desi Swenson NP Unavailable [phone] Encounter Details Date Type Department Care Team Description 12/25/2015 Orders Only Nephrology - [place] [address] [place] [address] Eduard Mccormick MD [address] [place] [address] Social History Tobacco Use Types Packs/Day Years [...] Date Type Specialty Care Team Description 04/29/2027 Psychological Anthropologist Report Abstract, Provider documented as of this encounter Results * (ABNORMAL) MICROALBUMIN/CREATININE, URINE (12/25/2015 9:24 AM EDT) Pathologist [facility] CREAT,RANDOM URINE 161 mg/dL 12/25/2015 11:13 AM T [facility] MICROALBUMIN, RANDOM 111.7(H) 0.0 - 29.0 mg/L 12/25/2015 11:13 AM [facility] MICROALB/CRE RATIO RANDOM 69.3(H) <30.0 mg/g 12/25/2015 11:13 AM T [facility] 12/25/2015 9:24 AM EDT 12/25/2015 9:25 AM EDT Eduard Mccormick MD LAB Performing Organization Address [facility] Co de Phone Number [address] * 25 HYDROXY INCLUDES FRACTIONS IF PERFORMED (12/25/2015 9:24 AM EDT) [facility] 25-HYDROXY VITAMIN D TOTAL 30 30 - 80 ng/ml 12/25/2015 3:35 PM T [facility] Comment: Vitamin D Reference Ranges ??Deficiency: ? <20 ng/mL ??Insufficiency: ?20-29 ng/mL ??Optimal: ?30-80 ng/mL ??High: ? >80 ng/mL 12/25/2015 9:24 AM EDT 12/25/2015 9:25 AM EDT Eduard Mccormick MD LAB Performing Organization Address [facility] Co de Phone Number [address] * CALCIUM,TOTAL (12/25/2015 9:24 AM EDT) [facility] CALCIUM 9.2 8.5 - 10.5 mg/dL 12/25/2015 10:52 AM T [facility] 12/25/2015 9:24 AM EDT 12/25/2015 9:25 AM EDT Eduard Mccormick MD LAB Performing Organization Address [facility] Co de Phone Number [address] * ELECTROLYTE PANEL (12/25/2015 9:24 AM EDT) Sodium 142 133 - 145 mEq/L 12/25/2015 10:52 AM EDT [facility] Potassium 4.5 3.5 - 5.5 mEq/L 12/25/2015 10:52 AM EDT [facility] Chloride 103 96 - 108 mEq/L 12/25/2015 10:52 AM EDT [facility] CO2 27.9 21.0 - 32.0 mEq/L 12/25/2015 10:52 AM EDT [facility] 12/25/2015 9:24 AM EDT 12/25/2015 9:25 AM EDT Eduard Mccormick MD LAB Performing Organization Address [facility] de Phone Number [address] * CREATININE, BLOOD ASSAY (12/25/2015 9:24 AM EDT) CREAT 1.0 0.7 - 1.5 mg/dL 12/25/2015 10:52 AM EDT [facility] GFR > 60 >60 12/25/2015 10:52 AM EDT [facility] Comment: If patient is -Scottish, multiply result by 1.21 Chronic Kidney Disease: < 60 ml/min/1.73 square meters Kidney Failure: < 15 ml/min/1.73 square meters 12/25/2015 9:24 AM EDT 12/25/2015 9:25 AM EDT Eduard Mccormick MD LAB Performing Organization Address City/[facility] Co de Phone Number [address] * BLOOD UREA NITROGEN (BUN) (12/25/2015 9:24 AM EDT) BUN 17 5 - 25 mg/dL 12/25/2015 10:52 AM EDT [facility] 12/25/2015 9:24 AM EDT 12/25/2015 9:25 AM EDT Eduard Mccormick MD LAB [facility] [address] [place] [address] documented in this encounter Visit Diagnoses Not on filedocumented in this encounter Care Teams Produce Sorter Relationship Specialty Start Date End Date Keisha Chavez MD [address] [place] [address] PCP - General Internal Medicine 06/20/15 04/20/16 Brett Velásquez MD [address] [place], [place] [phone] PCP - General Internal Medicine 04/21/16 01/25/22 Brett Velásquez MD [address] [place] [address] PCP - General Internal Medicine 01/26/22 02/15/22 Wayne Jaimes [address] [place] [address] PCP - General Internal Medicine 02/16/22 Reilly Baker MD, PHD [address] [place] [address] Surgeon Neurosurgery 01/20/22 Dafne Hilton MD [address] [place] [address] Specialist Cardiology 10/13/22 Desi Swenson NP [address] [place] [address] Cardiology 02/29/24 documented as of this encounter
--- OUTSIDE RECORDS SUMMARY | 2024-09-13 06:51 | XMS_ITS | Encounter Summary ---
Author Organization [facility] Address [address] [place] [address] Care Team Providers Care Human Resources Operations Coordinator Name Role Phone Reilly Baker MD, PHD Unavailable Unava ilable Wayne Jaimes Primary Care Provider [phone] Dafne Hilton MD Unavailable [phone] Desi Swenson NP Unavailable [phone] Encounter Details Date Type Department Care Team Description 09/07/2022 Flight Operations Coordinator Report Medical Records [address] [place] [address] Vladislav Antunez DO Social History Tobacco Use [...] Date Type Specialty Care Team Description 04/29/2027 Flight Operations Coordinator Report Abstract, Provider documented as of this encounter Visit Diagnoses Not on filedocumented in this encounter Care Teams Human Resources Operations Coordinator Relationship Specialty Start Date End Date Wayne Jaimes [address] [place], [place] [phone] PCP - General Internal Medicine 02/16/22 Reilly Baker MD, PHD Surgeon Neurosurgery 01/20/22 Dafne Hilton MD [address] [place] [address] Specialist Cardiology 10/13/22 Desi Swenson NP [address] [place], [place] [phone] Cardiology 02/29/24 documented as of this encounter
--- OUTSIDE RECORDS SUMMARY | 2024-09-13 06:51 | XMS_ITS | Encounter Summary ---
Author Organization [facility] Address [address] [place] [address] Care Team Providers Care Escalator Operator Name Role Phone Brett Velásquez MD Primary Care Provider Reilly Stewart MD, PHD Unavailable Unava ilBrett Bailon MD Primary Care Provider Wayne Dickson Primary Care Provider [phone] Dafne Hilton MD Unavailable [phone] Desi Swenson NP Unavailable [phone] Encounter Details Date Type Department Care Team Description 01/23/2020 [facility] Medical Records [address] [place] [address] Vladislav Antunez DO Social History Tobacco Use [...] Date Type Specialty Care Team Description 04/29/2027 Heel Curver Report Abstract, Provider documented as of this encounter Visit Diagnoses Not on filedocumented in this encounter Care Teams Escalator Operator Relationship Specialty Start Date End Date Brett Velásquez MD PCP - General Internal Medicine 04/21/16 01/25/22 Brett Velásquez MD PCP - General Internal Medicine 01/26/22 02/15/22 Wayne Jaimes [address] [place] [address] PCP - General Internal Medicine 02/16/22 Reilly Baker MD, PHD Surgeon Neurosurgery 01/20/22 Dafne Hilton MD [address] [place] [address] Specialist Cardiology 10/13/22 Desi Swenson NP [address] [place] [address] Cardiology 02/29/24 documented as of this encounter
--- OUTSIDE RECORDS SUMMARY | 2024-09-13 06:51 | XMS_ITS | Encounter Summary ---
Author Organization [facility] Address [address] [place] [address] Care Team Providers Care Aquatic Physiotherapist Name Role Phone Brett Velásquez MD Primary Care Provider Keisha Luna MD Primary Care Provider [phone] Brett Velásquez MD Primary Care Provider Reilly Stewart MD, PHD Unavailable Unava ilable Brett Velásquez MD Primary Care Provider Wayne Dickson Primary Care Provider [phone] Dafne Hilton MD Unavailable [phone] Desi Swenson NP Unavailable [phone] Encounter Details Date Type Department Care Team Description 09/26/2012 Healthcare Or Medical Report Medical Records [address] [place] [address] Shaquille Chandra Social History Tobacco Use Types [...] Date Type Specialty Care Team Description 04/29/2027 Healthcare Or Medical Report Abstract, Provider documented as of this encounter Visit Diagnoses Not on filedocumented in this encounter Care Teams Aquatic Physiotherapist Relationship Specialty Start Date End Date Brett Velásquez MD PCP - General Internal Medicine 10/29/11 06/19/15 Keisha Chavez MD [address] [place] [address] PCP - General Internal Medicine 06/20/15 04/20/16 Brett Velásquez MD PCP - General Internal Medicine 04/21/16 01/25/22 Brett Velásquez MD PCP - General Internal Medicine 01/26/22 02/15/22 Wayne Jaimes [address] [place] [address] PCP - General Internal Medicine 02/16/22 Reilly Baker MD, PHD [address] [place] [address] Surgeon Neurosurgery 01/20/22 Dafne Hilton MD [address] [place] [address] Specialist Cardiology 10/13/22 Desi Swenson NP [address] [place] [address] Cardiology 02/29/24 documented as of this encounter
--- OUTSIDE RECORDS SUMMARY | 2024-09-13 06:51 | XMS_ITS | Encounter Summary ---
Author Organization [facility] Address [address] [place] [address] Care Team Providers Care Hydroelectric Machinery Mechanic Name Role Phone Brett Velásquez MD Primary Care Provider Keisha Luna MD Primary Care Provider [phone] Brett Velásquez MD Primary Care Provider Reilly Stewart MD, PHD Unavailable Unava ilable Brett Velásquez MD Primary Care Provider Wayne Dickson Primary Care Provider [phone] Dafne Hilton MD Unavailable [phone] Desi Swenson NP Unavailable [phone] Encounter Details Date Type Department Care Team Description 10/05/2011 Hospital Medical Records [address] [place] [address] Manuel White MD Social History Tobacco Use [...] Date Type Specialty Care Team Description 04/29/2027 Lawn Sprinkler Installer Report Abstract, Provider documented as of this encounter Visit Diagnoses Not on filedocumented in this encounter Care Teams Hydroelectric Machinery Mechanic Relationship Specialty Start Date End Date Brett Velásquez MD PCP - General Internal Medicine 10/29/11 06/19/15 Keisha Chavez MD [address] [place] [address] PCP - General Internal Medicine 06/20/15 04/20/16 Brett Velásquez MD PCP - General Internal Medicine 04/21/16 01/25/22 Brett Velásquez MD PCP - General Internal Medicine 01/26/22 02/15/22 Wayne Jaimes [address] [place] [address] PCP - General Internal Medicine 02/16/22 Reilly Baker MD, PHD [address] [place] [address] Surgeon Neurosurgery 01/20/22 Dafne Hilton MD [address] [place] [address] Specialist Cardiology 10/13/22 Desi Swenson NP [address] [place] [address] Cardiology 02/29/24 documented as of this encounter
--- OUTSIDE RECORDS SUMMARY | 2024-09-13 06:51 | XMS_ITS | Encounter Summary ---
Author Organization [facility] Address [address] [place] [address] Care Team Providers Care Rehabilitation Specialist Name Role Phone Reilly Baker MD, PHD Unavailable Unava ilWayne Osborne Primary Care Provider [phone] Dafne Hilton MD Unavailable [phone] Desi Swenson NP Unavailable [phone] Encounter Details Date Type Department Care Team Description 04/15/2022 SCAN [facility] 175 [facility] [address] [place] [address] Ena Whipple PA-C [address] [address] Social History Tobacco Use Types Packs/Day Years [...] Date Type Specialty Care Team Description 04/29/2027 Fire Support Specialist Report Abstract, Provider documented as of this encounter Visit Diagnoses Not on filedocumented in this encounter Care Teams Rehabilitation Specialist Relationship Specialty Start Date End Date Wayne Jaimes [address] [place] [address] PCP - General Internal Medicine 02/16/22 Reilly Baker MD, PHD Surgeon Neurosurgery 01/20/22 Dafne Hilton MD [address] [place] [address] Specialist Cardiology 10/13/22 Desi Swenson NP [address] [place], [place] [phone] Cardiology 02/29/24 documented as of this encounter
--- OUTSIDE RECORDS SUMMARY | 2024-09-13 06:51 | XMS_ITS | Encounter Summary ---
Author Organization [facility] Address [address] [place] [address] Care Team Providers Care Grain Drier Operator Name Role Phone eKisha Chavez MD Primary Care Provider [phone] Brett Velásquez MD Primary Care Provider Reilly Stewart MD, PHD Unavailable Unade ilBrett Bailon MD Primary Care Provider Wayne Dickson Primary Care Provider [phone] Dafne Hilton MD Unavailable [phone] Desi Swenson NP Unavailable [phone] Encounter Details Date Type Department Care Team Description 11/05/2015 Release of Information Medical Records [address] [place] [address] Abstract, Provider Social History Tobacco Use Types [...] Date Type Specialty Care Team Description 04/29/2027 Breast Splitter Report Abstract, Provider documented as of this encounter Visit Diagnoses Not on filedocumented in this encounter Care Teams Grain Drier Operator Relationship Specialty Start Date End Date Keisha Chavez MD [address] [place] [address] PCP - General Internal Medicine 06/20/15 04/20/16 Brett Velásquez MD [address] [place] [address] PCP - General Internal Medicine 04/21/16 01/25/22 Brett Velásquez MD [address] [place] [address] PCP - General Internal Medicine 01/26/22 02/15/22 Wayne Jaimes [address] [place] [address] PCP - General Internal Medicine 02/16/22 Reilly Baker MD, PHD [address] [place] [address] Surgeon Neurosurgery 01/20/22 Dafne Hilton MD [address] [place] [address] Specialist Cardiology 10/13/22 Desi Swenson NP [address] [place] [address] Cardiology 02/29/24 documented as of this encounter
--- OUTSIDE RECORDS SUMMARY | 2024-09-13 06:51 | XMS_ITS | Encounter Summary ---
Author Organization [facility] Address [address] [place] [address] Care Team Providers Care Picket Labor Union Name Role Phone Reilly Baker MD, PHD Unavailable Unava ilWayne Osborne Primary Care Provider Dafne Hilton MD Unavailable [phone] Desi Swenson NP Unavailable [phone] Encounter Details Date Type Department Care Team Description 09/14/2022 Refill Nephrology - [place] [address] [place] [address] Eduard Mccormick MD [address] [place] [address] Social History Tobacco Use Types Packs/Day Years [...] Date Type Specialty Care Team Description 04/29/2027 Cloth Carrier Report Abstract, Provider documented as of this encounter Visit Diagnoses Not on filedocumented in this encounter Care Teams [employer] Relationship Specialty Start Date End Date Wayne Jaimes [place] [address] [place] [address] PCP - General Internal Medicine 02/16/22 Reilly Baker MD, PHD Surgeon Neurosurgery 01/20/22 Dafne Hilton MD [address] [place] [address] Specialist Cardiology 10/13/22 Desi Swenson NP [address] [place], [place] [phone] Cardiology 02/29/24 documented as of this encounter
--- OUTSIDE RECORDS SUMMARY | 2024-09-13 06:51 | XMS_ITS | Encounter Summary ---
Author Organization [employer] Address [address] [place] [address] [place], [place] [address] Care Team Providers Care Billing Spec Name Role Phone Unavailable Primary Care Provider Unavailabl e Encounter Details Date Type Department Care Team (Latest Contact Info) Description 01/15/2021 Abstract [facility] Dental, Provider, DDS Social History Tobacco Use Types Packs/Day Years Used Date Smoking Tobacco: Never Assessed Sex and Gender Information Value Date Recorded Sex Assigned at Male 05/11/2022 10:22 AM EDT Legal Sex Male 10:22 AM EDT Gender Identity Male 05/11/2022 10:22 AM EDT Sexual Orientation Straight 05/11/2022 10 :22 AM EDT documented as of this encounter Plan of Treatment Not on file documented as of this encounter Visit Diagnoses Not on filedocumented in this encounter
--- OUTSIDE RECORDS SUMMARY | 2024-09-13 06:51 | XMS_ITS | Encounter Summary ---
Author Organization [facility] Address [address] [place] [address] Care Team Providers Care Helpdesk Specialist Name Role Phone Reilly Baker MD, PHD Unavailable Unava ilable Wayne Jaimes Primary Care Provider [phone] Dafne Hilton MD Unavailable [phone] Desi Swenson NP Unavailable [phone] Encounter Details Date Type Department Care Team Description 07/01/2022 Gear Repairer Report Medical Records [address] [place] [address] Maxwell Gordon MD Social History Tobacco Use [...] Date Type Specialty Care Team Description 04/29/2027 Gear Repairer Report Abstract, Provider documented as of this encounter Visit Diagnoses Not on filedocumented in this encounter Care Teams Helpdesk Specialist Relationship Specialty Start Date End Date Wayne Jaimes [address] [place] [address] PCP - General Internal Medicine 02/16/22 Reilly Baker MD, PHD Surgeon Neurosurgery 01/20/22 Dafne Hilton MD [address] [place] [address] Specialist Cardiology 10/13/22 Desi Swenson NP [address] [place] [address] Cardiology 02/29/24 documented as of this encounter
--- OUTSIDE RECORDS SUMMARY | 2024-09-13 06:51 | XMS_ITS | Encounter Summary ---
Author Organization [facility] Address [address] [place] [address] Care Team Providers Care Medical Imaging Technologist Name Role Phone Reilly Baker MD, PHD Unavailable Unava ilWayne Osborne Primary Care Provider Dafne Hilton MD Unavailable [phone] Desi Swenson NP Unavailable [phone] Encounter Details Date Type Department Care Team Description 09/14/2022 Refill Nephrology - [place] [address] [place] [address] Eduard Mccormick MD [address] [place] [address] Social History Tobacco Use Types Packs/Day Years [...] Date Type Specialty Care Team Description 04/29/2027 Software Business Analyst Report Abstract, Provider documented as of this encounter Visit Diagnoses Not on filedocumented in this encounter Care Teams Medical Imaging Technologist Relationship Specialty Start Date End Date Wayne Jaimes Delmer [address] [place] [address] PCP - General Internal Medicine 02/16/22 Reilly Baker MD, PHD Surgeon Neurosurgery 01/20/22 Dafne Hilton MD [address] [place] [address] Specialist Cardiology 10/13/22 Desi Swenson NP [address] [place], [place] [id number] Cardiology 02/29/24 documented as of this encounter
--- OUTSIDE RECORDS SUMMARY | 2024-09-13 06:51 | XMS_ITS | Encounter Summary ---
Author Organization [facility] Address [address] [place] [address] Care Team Providers Care Cement Loader Name Role Phone Reilly Baker MD, PHD Unavailable Unava Wayne Blackman Primary Care Provider [phone] Dafne Hilton MD Unavailable [phone] Desi Swenson NP Unavailable [phone] Reason for Visit * Reason Onset Date Comments Medication 09/14/2022 Changes, fyi to Dr Mccormick Encounter Details Date Type Department Care Team Description 09/14/2022 Telephone Nephrology - [place] [address] [place] [address] Eduard Mccormick MD [address] [place] [address] [id number] Medication (Changes, fyi to Dr Mccormick) Social History Tobacco Use Types Packs/Day Years [...] PM EST documented as of this encounter Miscellaneous Notes * Telephone Encounter - Soraya bravo Garland - 09/14/2022 1:35 PM EST Patient wants to let Dr Mccormick know about some changes to his medications made by [facility]. States hewas told to stop taking losartan 25 mg and cholecalciferol (Vitamin D3 1000 units) and was prescribed asprin 81 mg daily, atorvastatin 80 mg, daily at bedtime, and ticagrelor 90 mg, twice a day. documented in this encounter Plan of Treatment Upcoming Encounters Date Type Specialty Care Team Description 04/29/2027 Budget Accountant Report Abstract, Provider documented as of this encounter Visit Diagnoses Not on filedocumented in this encounter Care Teams Cement Loader Relationship Specialty Start Date End Date Wayne Jaimes [address] [place] [address] PCP - General Internal Medicine 02/16/22 Reilly Baker MD, PHD Surgeon Neurosurgery 01/20/22 Dafne Hilton MD [address] [place] [address] Specialist Cardiology 10/13/22 Desi Swenson NP [address] [place] [address] Cardiology 02/29/24 documented as of this encounter
--- OUTSIDE RECORDS SUMMARY | 2024-09-13 06:51 | XMS_ITS | Encounter Summary ---
Author Organization [facility] Address [address] [place] [address] Care Team Providers Care Silver Recovery Operator Name Role Phone Reilly Baker MD, PHD Unavailable Unava ilWayne Osborne Primary Care Provider [phone] Dafne Hilton MD Unavailable [phone] Desi Swenson NP Unavailable [phone] Encounter Details Date Type Department Care Team Description 02/23/2022 Orders Only Medical Records [address] [place] [address] Yuliana Auguste MD [address] [place] [address] Social History Tobacco Use Types Packs/Day Years [...] as possible. You may also use an qicz-ptu-uzyriph acid reducing agent such as Pepcid, Tums, omeprazole etc. when necessary.I would like to personally thank you for allowing us to take care of you. Please don't hesitate to call us for any questions or concerns. Regards, Vivek Auguste MD Board Certified Gastroenterology and Internal Medicine Transplant Hepatology [facility] documented in this encounter Plan of Treatment Upcoming Encounters Date Type Specialty Care Team Description 04/29/2027 Search Engine Optimization Analyst Report Abstract, Provider documented as of this encounter Procedures Procedure Name Priority Date/Time Associated Diagnosis Comments OUTSIDE PATHOLOGY Routine 02/18/2022 documented in this encounter Results * OUTSIDE PATHOLOGY (02/18/2022) Yuliana Auguste MD OUTSIDE LAB documented in this encounter Visit Diagnoses Not on filedocumented in this encounter Care Teams Silver Recovery Operator Relationship Specialty Start Date End Date Jose M Jaimesgil Dowell [address] [place] [address] PCP - General Internal Medicine 02/16/22 Reilly Baker MD, PHD Surgeon Neurosurgery 01/20/22 Dafne Hilton MD [address] [place] [address] Specialist Cardiology 10/13/22 Desi Swenson NP [address] [place] [address] Cardiology 02/29/24 documented as of this encounter
--- OUTSIDE RECORDS SUMMARY | 2024-09-13 06:51 | XMS_ITS | Encounter Summary ---
Author Organization [facility] Address [address] [facility] [place] [address] Care Team Providers Care Freight Elevator Erector Name Role Phone Keisha Chavez MD Primary Care Provider [phone] Brett Velásquez MD Primary Care Provider Reilly Stewart MD, PHD Unavailable [facility] center[facility] Bailon MD Primary Care Provider Wayne Dickson Primary Care Provider Dafne Hilton MD Unavailable [phone] Desi Swenson NP Unavailable [phone] Encounter Details Date Type Department Care Team Description 10/25/2015 Traffic Recorder Report Medical Records [address] [place] [address] Aleksandar Huggins MD Social History Tobacco Use [...] Date Type Specialty Care Team Description 04/29/2027 Traffic Recorder Report Abstract, Provider documented as of this encounter Visit Diagnoses Not on filedocumented in this encounter Care Teams Freight Elevator Erector Relationship Specialty Start Date End Date Keisha Chavez MD [address] [place] [address] PCP - General Internal Medicine 06/20/15 04/20/16 Brett Velásquez MD [address] [place] [address] PCP - General Internal Medicine 04/21/16 01/25/22 Brett Velásquez MD [address] [place] [address] PCP - General Internal Medicine 01/26/22 02/15/22 Wayne Jaimes [address] [place] [address] PCP - General Internal Medicine 02/16/22 Reilly Baker MD, PHD [address] [place] [address] Surgeon Neurosurgery 01/20/22 Dafne Hilton MD [address] [place] [address] Specialist Cardiology 10/13/22 Desi Swenson NP [address] [place] [address] Cardiology 02/29/24 documented as of this encounter
--- OUTSIDE RECORDS SUMMARY | 2024-09-13 06:51 | XMS_ITS | Data Portability ---
Author Organization [place] [facility] Address [address] [address] Care Team Providers Care Quarter Supervisor Name Role Phone SUMMER LOWE Primary Care [...] speech therapy referra l 2024 025 [email or web address] [facility], [address] [place] [address] [place], [address], 08/11/2024 11:57:42 speech therapy referra l - Appt 05/26 @ 8:30am 2023 024 [facility], [facility] [place], [address], 05/01/2024 16:23:00 Procedures None recorde d. Surgeries None recorde d. Imaging None recorde d. Medication Orders famotid ine 20 mg tablet 2024 025 [facility] [address] [place] [address], [address], 08/10/2024 15:05:18 nystati n 100,000 unit/mL oral suspens ion 2023 024 [facility], [address] [place] [address], [address], 05/10/2024 16:22:57 nystati n 100,000 unit/mL oral suspens ion 2023 024 [facility] [address] [place] [address], [address], 04/21/2024 14:42:09 Patient TargetsNo targets recorded. Patient InstructionsNo instructions recorded. Reason for Referral Appt 05/26 @ 8:30am Referring Physician: Eneida Mccall Otolaryngology, Encounter Date: 04/21/2024 Referring Physician: Eneida Mccall Otolaryngology, Encounter Date: 08/10/2024 Problems Name Problem SNOMED Code Status Onset Date Resolution Date Notes Provider Name and Address Organization Details Recorded Time Sensorine ural hearing loss of bilateral ears 610747206 Active 2019 Sensorine ural hearing loss, bilateral ; Note: Date Diagnosed : 02/26/2020 3:32 PM (H90.3) Note: Date Diagnosed : 02/26/2020 3:32 PM (H90.3) Not Available [facility] 00:53:14 Stomatiti s 15851565 Active 2020 Oral thrush; Note: Date Diagnosed : 04/14/2021 11:22 AM (B37.0) Not Available [facility] 4 02:18:55 Candidias is of mouth 63005278 Active 2020 Oral thrush; Note: Date Diagnosed : 04/14/2021 11:22 AM (B37.0) Not Available [facility] 4 02:18:55 Gastroeso phageal reflux disease without esophagit is 944558655 Active 2015 Gastro-es ophageal reflux disease without esophagit is; Note: Date Diagnosed : 07/22/2015 2:46 PM (K21.9) Not Available [facility] 4 02:19:18 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, unilatera l; Note: Date Diagnosed : 12/12/2019 3:31 PM (J38.01) Not Available [facility] 4 02:18:19 Dysphagia 09879417 Active 2022 Dysphagia , unspecifi ed; Note: Date Diagnosed : 10/27/2021 12:05 PM (R13.10) ; Start Date : 2 Other dysphagia ; Note: Date Diagnosed : 04/07/2023 1:44 PM (R13.19) Not Available [facility] 4 02:19:19 Benign paroxysma l positiona l vertigo 901811556 Active 2019 Benign paroxysma l vertigo, left ear; Note: Date Diagnosed : 02/26/2020 3:32 PM (H81.12) Not Available [facility] 4 02:18:20 Cough 06927792 Active 2015 Cough, unspecifi ed; Note: Changed from R05 to R05.9 ( 2 2:10 PM) , Date Diagnosed : 09/04/2015 3:10 PM (R05) Not Available [facility] 4 02:19:08 Oropharyn geal dysphagia 66447058 Active 2023 Dysphagia , oropharyn geal phase; Note: Date Diagnosed : 09/16/2023 1:19 PM (R13.12) Not Available [facility] 02:19:08 Hemoptysi s 21319499 Active 2023 ENEIDA MCCALL MD [address] [facility],[place] [address], [place], [address] , [place] [facility] 14:33:59 Chronic sore throat 098983226 Active 2023 ENEIDA MCCALL MD [address] [place] [address],[place] [address], [place], [address] , [place] - [facility] 14:34:04 Chronic hoarsenes s 55801369406 05 Active 2023 ENEIDA MCCALL MD [address] [place] [address],[place] [address], [facility] [place], [address] , [facility] - [facility] 14:42:59 Problem Notes None recorded. Procedures Surgical History Date Name Laterality Status Provider Name and Address Organization Details Recorded Time 08/10/19 25 FFL_RE completed ENEIDA MCCALL MD [address] [place] [address],[place] [address], [place], [address], [place] - [facility] 08/10/2024 15:02:15 04/21/20 24 FFL_RE completed ENEIDA MCCALL MD [address] [place] [address],[place] [address], [place], [address], [facility] - [facility] 04/21/2024 14:41:39 transurethral prostatectomy completed Bibi Neal [place] - [facility] 05/10/2024 14:05:40 subtotal thyroidectomy completed Bibi Neal [place] - [facility] 05/10/2024 14:05:53 Imaging Results None recorded. Procedure Notes None recorded. Medical Equipment None Reported. Allergies No known drug allergies Medications Name Sig Start Date Stop Date Status Note LastModified by Organization Details LastModified Time losartan 50 mg tablet 05/06 completed Medicati on ID: [id number] B rand Name: losartan Send Method: E-Prescr [...] gram tablet 05/06 completed Medicati on ID: [id number] D uration Value: 7 Brand Name: valacycl [...] mucosal jelly 05/10 completed Medicati on ID: [id number] D uration Value: 14 Brand Name: lidocain [...] mg capsule 05/06 completed Medicati on ID: [id number] D uration Value: 90 Brand Name: tamsulos in Send Method: E-Prescr ibed Sub s Allowed: subs OK Speci al Instruct ion: TAKE ONE CAPSULE DAILY Me dication GenericN jay: tamsulos in Not Available Not Available Not Available pantopraz ole 40 mg tablet,de layed release 07/12 completed Medicati on ID: [id number] D uration Value: 30 Brand Name: pantopra [...] by mouth 07/12 completed Medicati on ID: [id number] D uration Value: 30 Prescri bed By [...] oral powder 05/10 completed Medicati on ID: [id number] D uration Value: 30 Brand Name: polyethy [...] layed release 12/11 completed Medicati on ID: [id number] P devonte d By Name: Trevon Gee [...] both nostrils 10/17 completed Medicati on ID: [id number] P rescribe d By Name: Trevon Gee rd, nd Name: Flonase Allergy Relief S end Method: E-Prescr ibed Sub s Allowed: subs OK Medic ationGen ericName : Flonase Allergy Relief Not Available Not Available Not Available Vitals Date Recorded Body height Body mass index (BMI) Body weight Provider Name and Address Organization Details Last Updated DateTime 04/21/2024 167.64 cm 27 kg/m2 01717.93 g Aakash Weaver [place] [facility] 04/21/2024 14:00:43 Date Recorded Body height Body weight Provider Name and Address Organization Details Last Updated DateTime 05/10/2024 167.64 cm 24791.93 g Bibi Neal [place] [facility] 05/10/2024 14:01:54 Date Recorded Body height Provider Name an d Address Organization Details Last Updated DateTime 08/10/2024 167.64 cm Aakash Weaver [facility] 08/10/2024 14:29:36 Social History None recorded. Functional Status None recorded. Mental Status None recorded. Family History Nothing Reported. Medical History Condition Response Hypertension Y Sleep Disorder Y GERD/Reflux Y Past Encounters Encounter ID Performer Location Encounter Start Date Encounter Closed Date Diagnosis/Indication Diagnosis SNOMED-CT Code Diagnosis ICD10 Code Diagnosis Note [id number] ENEIDA MCCALL MD [facility] [address] [address] 04/21/2024 13:44:06 04/21/2024 15:41:33 Hemoptysis 12899982 R04.2 resolved. laryngosco py negative today for bleeding Chronic sore throat 2754 [address] J31.2 likely due to thrush. Gastroesop hageal reflux disease without esophagitis 087338143 K21.9 continue esomeprazo le Candidiasis of mouth 797 [address] B37.0 FFL notable for montez in base of tongue. LIkely secondary to steroid inhalers. Will treat with nystatin. I asked him to call if not improved. No tumors on laryngosoc py. Chronic hoarseness 18243 96678 105 R49.0 will make voice therapy referral to [facility] [id number] VELASQUEZ GONZALEZ MD [facility] [address] [place] [address] 05/10/2024 13:45:35 05/10/2024 15:10:38 Candidiasis of mouth 63805978 B37.0 Chronic hoarseness 87411 84893 105 R49.0 Chronic sore throat 2754 [address] J31.2 Gastroesop hageal reflux disease without esophagitis 893500231 K21.9 [id number] ENEIDA MCCALL MD [facility] 100 [place] [address] 08/10/2024 13:56:29 08/10/2024 15:05:58 Chronic sore throat 173249932 J31.2 no evidence of thrush. he has breakthrou gh heartburn and I think the soreness is due to LPR. I will add dual therapy for reflux with famotidine in addition to his PPI. Gastroesop hageal reflux disease without esophagitis 383384113 K21.9 begin dual thearpy Candidiasis of mouth 797 [address] B37.0 resolved Chronic hoarseness 57074 99396 105 R49.0 will make voice therapy referral to [facility] since he could not be seen at [facility], gave reassuranc e no vocal cord lesions. Health Concerns Section Related Observation LastModified by Organization Detai ls LastModified Time None Recorded Concern Status LastModified by Organization Details LastModified Time None Recorded Advance Directives Directive None Recorded Payers Encounter Date Sequence Insurance Name Policy Number Policy Ayala Covered Member ID Ayala Member ID Guarantor Name 04/21/2024 1 [facility] Laina Lewis [id number] Laina Lewis 05/10/2024 1 [facility] Laina Lewis [id number] Laina Lewis 08/10/2024 1 [facility] Laina Lewis [id number] Laina Lewis Notes Date Note Type Note [...] in September 2020. ENEIDA MCCALL MD [address] [facility] [address], [place], [address], [place] [facility] 04/21/2024 14:43:45 05/10/2024 text/html 68-year-old male with [...] [place]. Normal MBS. VELASQUEZ QUINTERO MD [address] [facility] [address], [place], [address], [place] [facility] 05/11/2024 12:34:14 08/10/2024 text/html He has a [...] FOL in September 2020. ENEIDA MCCALL MD [address] [place] [address], [place], [address], [place] [facility] 08/10/2024 15:05:10
--- OUTSIDE RECORDS SUMMARY | 2024-09-13 06:51 | XMS_ITS | Encounter Summary ---
Author Organization [facility] Address [address] [place] [address] Care Team Providers Care Automobile Service Writer Name Role Phone Brett Velásquez MD Primary Care Provider Keisha Luna MD Primary Care Provider [phone] Brett Velásquez MD Primary Care Provider Reilly Stewart MD, PHD Unavailable Unava ilBrett Bailon MD Primary Care Provider Wayne Dickson Primary Care Provider [phone] Dafne Hilton MD Unavailable [phone] Desi Swenson NP Unavailable [phone] Encounter Details Date Type Department Care Team Description 02/06/2015 Lumber Yard Worker Report Medical Records [address] [place] [address] [facility] [address] [place] [address] Social History Tobacco Use Types Packs/Day Years [...] Date Type Specialty Care Team Description 04/29/2027 Lumber Yard Worker Report Abstract, Provider documented as of this encounter Visit Diagnoses Not on filedocumented in this encounter Care Teams Automobile Service Writer Relationship Specialty Start Date End Date Brett Velásquez MD PCP - General Internal Medicine 10/29/11 06/19/15 Keisha Chavez MD [address] [place], [place] [address] PCP - General Internal Medicine 06/20/15 04/20/16 Brett Velásquez MD PCP - General Internal Medicine 04/21/16 01/25/22 Brett Velásquez MD PCP - General Internal Medicine 01/26/22 02/15/22 Wayne Jaimes [address] [place] [address] PCP - General Internal Medicine 02/16/22 Reilly Baker MD, PHD [address] [place] [address] Surgeon Neurosurgery 01/20/22 Dafne Hilton MD [address] [place] [address] Specialist Cardiology 10/13/22 Desi Swenson NP [address] [place] [address] Cardiology 02/29/24 documented as of this encounter
--- OUTSIDE RECORDS SUMMARY | 2024-09-13 06:51 | XMS_ITS | Encounter Summary ---
Author Organization [facility] Address [address] [place] [address] Care Team Providers Care Cement Boat And Barge Loader Name Role Phone Reilly Baker MD, PHD Unavailable Unava ilable Wayne Jaimes Primary Care Provider Dafne Hilton MD Unavailable [phone] Desi Swenson NP Unavailable [phone] Encounter Details Date Type Department Care Team Description 04/08/2022 Pt. Non Urgent Medical Question Adult Medicine [address] [address] Wayne Jaimes [address] [place] [address] Social History Tobacco Use Types Packs/Day Years [...] Date Type Specialty Care Team Description 04/29/2027 Public Address System Mechanic Report Abstract, Provider documented as of this encounter Visit Diagnoses Not on filedocumented in this encounter Care Teams Cement Boat And Barge Loader Relationship Specialty Start Date End Date Erinarin Wayne Dowell [address] [place] [address] PCP - General Internal Medicine 02/16/22 Reilly Baker MD, PHD Surgeon Neurosurgery 01/20/22 Dafne Hilton MD [address] [place] [address] Specialist Cardiology 10/13/22 Desi Swenson NP [address] [place] [address] Cardiology 02/29/24 documented as of this encounter
--- OUTSIDE RECORDS SUMMARY | 2024-09-13 06:51 | XMS_ITS | Encounter Summary ---
Author Organization [facility] Address [address] [place] [address] Care Team Providers Care Photographic Equipment Mechanic Name Role Phone Brett Velásquez MD Primary Care Provider Keisha Luna MD Primary Care Provider [phone] Brett Velásquez MD Primary Care Provider Reilly Stewart MD, PHD Unavailable Unava ilBrett Bailon MD Primary Care Provider Wayne Dickson Primary Care Provider [phone] Dafne Hilton MD Unavailable [phone] Desi Swenson NP Unavailable [phone] Encounter Details Date Type Department Care Team Description 04/01/2015 Studio Hand Report Medical Records [address] [place] [address] Olivia Harris MD [address] [place] [address] [address] [place] [address] Social History Tobacco Use Types Packs/Day Years [...] Date Type Specialty Care Team Description 04/29/2027 Studio Hand Report Abstract, Provider documented as of this encounter Visit Diagnoses Not on filedocumented in this encounter Care Teams Photographic Equipment Mechanic Relationship Specialty Start Date End Date Brett Velásquez MD PCP - General Internal Medicine 10/29/11 06/19/15 Keisha Chavez MD [address] [place] [address] PCP - General Internal Medicine 06/20/15 04/20/16 Brett Velásquez MD PCP - General Internal Medicine 04/21/16 01/25/22 Brett Velásquez MD PCP - General Internal Medicine 01/26/22 02/15/22 Wayne Jaimes [address] [place] [address] PCP - General Internal Medicine 02/16/22 Reilly Baker MD, PHD [address] [place] [address] Surgeon Neurosurgery 01/20/22 Dafne Hilton MD [address] [place] [address] Specialist Cardiology 10/13/22 Desi Swenson NP [address] [place] [address] Cardiology 02/29/24 documented as of this encounter
--- OUTSIDE RECORDS SUMMARY | 2024-09-13 06:51 | XMS_ITS | Encounter Summary ---
Author Organization [facility] Address [address] [place] [address] Care Team Providers Care Educational Speech Language Clinician Name Role Phone Brett Velásquez MD Primary Care Provider Reilly Stewart MD, PHD Unavailable Unava ilBrett Bailon MD Primary Care Provider Wayne Dickson Primary Care Provider Dafne Hilton MD Unavailable [phone] Desi Swenson NP Unavailable [phone] Encounter Details Date Type Department Care Team Description 01/15/2020 [facility] Medical Records [address] [place] [address] [facility] Social History Tobacco Use Types [...] Date Type Specialty Care Team Description 04/29/2027 Materials Planning Manager Report Abstract, Provider documented as of this encounter Visit Diagnoses Not on filedocumented in this encounter Care Teams Educational Speech Language Clinician Relationship Specialty Start Date End Date Brett Velásquez MD PCP - General Internal Medicine 04/21/16 01/25/22 Brett Velásquez MD PCP - General Internal Medicine 01/26/22 02/15/22 Wayne Jaimes [address] [place] [address] PCP - General Internal Medicine 02/16/22 Reilly Baker MD, PHD Surgeon Neurosurgery 01/20/22 Dafne Hilton MD [address] [place] [address] Specialist Cardiology 10/13/22 Desi Swenson NP [address] [place] [address] Cardiology 02/29/24 documented as of this encounter
--- OUTSIDE RECORDS SUMMARY | 2024-09-13 06:51 | XMS_ITS | Encounter Summary ---
Author Organization [facility] Address [address] [place] [address] Care Team Providers Care Social Worker Health Services Name Role Phone Brett Velásquez MD Primary Care Provider Reilly Stewart MD, PHD Unavailable UnaBrett Davis MD Primary Care Provider Wayne Dickson Primary Care Provider [phone] Dafne Hilton MD Unavailable [phone] Desi Swenson NP Unavailable Encounter Details Date Type Department Care Team Description 12/22/2019 Telephone Physiatry - [address] [address] Sonny Abrams PA-C Social History Tobacco Use [...] Miscellaneous Notes * Telephone Encounter - Soraya Brown M.A. - 12/22/2019 10:24 AM EDT Unable to reach letter sent to patient regarding injection. documented in this encounter Plan of Treatment Upcoming Encounters Date Type Specialty Care Team Description 04/29/2027 Canoe Inspector Report Abstract, Provider documented as of this encounter Visit Diagnoses Not on filedocumented in this encounter Care Teams Social Worker Health Services Relationship Specialty Start Date End Date Brett Velásquez MD PCP - General Internal Medicine 04/21/16 01/25/22 Brett Velásquez MD PCP - General Internal Medicine 01/26/22 02/15/22 Wayne Jaimes [address] [place] [address] PCP - General Internal Medicine 02/16/22 Reilly Baker MD, PHD Surgeon Neurosurgery 01/20/22 Dafne Hilton MD [address] [place] [address] Specialist Cardiology 10/13/22 Desi Swenson NP [address] [place] [address] Cardiology 02/29/24 documented as of this encounter
--- OUTSIDE RECORDS SUMMARY | 2024-09-13 06:51 | XMS_ITS ---
Author Organization [facility] Address [address] [facility] [address] [place] [address] Care Team Providers Care Nut Dehydrator Operator Name Role Phone Wayne Jaimes MD Primary Care Provider DESI Burks Unavailable [phone] Allergies No Known Allergies REASON FOR VISIT [...] Not-Taking Diclofenac Sodium 1 % as directed Dispatcher Electric Power ally place 1 g onto the skin [...] N/A Encounters Encounter Location Date Provider Diagnosis [facility] [address] 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 for 90 days [...] Name:DESI LI, 10/11/2024 02:45:00 PM, [address] [facility] [address], [place], [address], Medications Administered Medication Instructions Date of Administration Dosage Notes dexAMETHasone Sod Phosphate PF 12/24/2023 0.5 m L Kenalog 12/24/2023 0.5 mL Progress Notes * Mckinley LEWISOB:1955 ([age] yo M)Acc No.[id number]:12/24/2023 Progress Note Patient:?Laina LEWIS Provider:?Desi Li DPM :1955???Age:68 Y???Sex:Male Nael e:12/24/2023 Address:[address] [place], [place] [address] Pcp:Wayne Jaimes MD Subjective: * Chief Complaints: [...] bilaterally, protective sensation intact 10/10 with 5.07 [place] Alisha bilaterally, vibratory sensation with tuning fork [...] RT J1100 INJ DEXAMETHASONE SODIM PHOSHATE 1 [id number] INJ TRIAMCINOLONE ACETONIDE 10 MG * Follow Up:?3 Months * Billing Information: * Visit Code:? 92995 Office Visit, Est Pt., Level 3. Modifiers: 25 * Procedure Codes:? DRAIN/INJECT, SMALL JOINT/BURSA. Modifiers: RT J1100 INJ DEXAMETHASONE SODIM PHOSHATE 1 MG. J3301 INJ TRIAMCINOLONE ACETONIDE 10 MG. * Sign off status: Completed true * Provider:?Desi Li DPM Date:? 12/24/2023 Generated for Tatiana lema/Nilsa/eTransmitting on:?09/13/2024 06:51 AM EST History and Physical Notes * HPI [...] bilaterally, protective sensation intact 10/10 with 5.07 [place] Alisha bilaterally, vibratory sensation with tuning fork [...]
--- OUTSIDE RECORDS SUMMARY | 2024-09-13 06:51 | XMS_ITS | Encounter Summary ---
Author Organization [facility] Address [address] [place] [address] Care Team Providers Care Contracting Manager Name Role Phone Reilly Baker MD, PHD Unavailable Unava ilable Wayne Jaimes Primary Care Provider [phone] Dafne Hilton MD Unavailable [phone] Desi Swenson NP Unavailable [phone] Encounter Details Date Type Department Care Team Description 02/18/2022 Hospital Medical Records [address] [place] [address] Yuliana Auguste MD [address] [place] [address] Social History Tobacco Use Types Packs/Day Years [...] Date Type Specialty Care Team Description 04/29/2027 Grain Receiver Report Abstract, Provider documented as of this encounter Visit Diagnoses Not on filedocumented in this encounter Care Teams Contracting Manager Relationship Specialty Start Date End Date Wayne Jaimes [address] [place] [address] PCP - General Internal Medicine 02/16/22 Reilly Baker MD, PHD Surgeon Neurosurgery 01/20/22 Dafne Hilton MD [address] [place] [address] Specialist Cardiology 10/13/22 Desi Swenson NP [address] [place] [address] Cardiology 02/29/24 documented as of this encounter
--- OUTSIDE RECORDS SUMMARY | 2024-09-13 06:51 | XMS_ITS | Encounter Summary ---
Author Organization [facility] Address [address] [place] [address] Care Team Providers Care [place] Attendant Name Role Phone Brett Velásqeuz MD Primary Care Provider Keisha Luna MD Primary Care Provider [phone] Brett Velásquez MD Primary Care Provider Reilly Stewart MD, PHD [facility]available [facility] MD Primary Care Provider Wayne Dickson Primary Care Provider [phone] Dafne Hilton MD Unavailable [phone] Desi Swenson NP Unavailable [phone] Reason for Visit * Reason Onset Date Comments My Chart Appointment 02/04/2015 Encounter Details Date Type Department Care Team Description 02/04/2015 Telephone Adult Medicine [address] [address] Brett Velásquez MD My Chart Appointment Social [...] Date Type Specialty Care Team Description 04/29/2027 Wiping Cloth Cutter Report Abstract, Provider documented as of this encounter Visit Diagnoses Not on filedocumented in this encounter Care Teams [place] Attendant Relationship Specialty Start Date End Date Brett Velásquez MD PCP - General Internal Medicine 10/29/11 06/19/15 Keisha Chavez MD [address] [place] [address] PCP - General Internal Medicine 06/20/15 04/20/16 Brett Velásquez MD PCP - General Internal Medicine 04/21/16 01/25/22 Brett Velásquez MD PCP - General Internal Medicine 01/26/22 02/15/22 Wayne Jaimes [address] [place] [address] PCP - General Internal Medicine 02/16/22 Reilly Baker MD, PHD [address] [place] [address] Surgeon Neurosurgery 01/20/22 Dafne Hilton MD [address] [place] [address] Specialist Cardiology 10/13/22 Desi Swenson NP [address] [place] [address] Cardiology 02/29/24 documented as of this encounter
--- OUTSIDE RECORDS SUMMARY | 2024-09-13 06:51 | XMS_ITS | Encounter Summary ---
Author Organization [employer] Address [address] [place] [address] [address], [place] [address] Care Team Providers Care Yarn Sizer Name Role Phone Unavailable Primary Care Provider Unavailabl e Encounter Details Date Type Department Care Team (Latest Contact Info) Description 01/23/2022 Abstract [facility] CONVERSIONS Dental, Provider, DDS Social [...]
--- OUTSIDE RECORDS SUMMARY | 2024-09-13 06:51 | XMS_ITS | Encounter Summary ---
Author Organization [facility] Address [address] [place] [address] Care Team Providers Care Automotive Detailer Name Role Phone Reilly Baker MD, PHD Unavailable Unava ilable Wayne Jaimes Primary Care Provider [phone] Dafne Hilton MD Unavailable [phone] Desi Swenson NP Unavailable [phone] Encounter Details Date Type Department Care Team Description 09/10/2022 Hospital Medical Records [address] [place] [address] Social History Tobacco Use Types Packs/Day Years [...] Date Type Specialty Care Team Description 04/29/2027 Laminating Machine Offbearer Report Abstract, Provider documented as of this encounter Visit Diagnoses Not on filedocumented in this encounter Care Teams Automotive Detailer Relationship Specialty Start Date End Date Wayne Jaimes [address] [place], [place] [address] PCP - General Internal Medicine 02/16/22 Reilly Baker MD, PHD Surgeon Neurosurgery 01/20/22 Dafne Hilton MD [address] [place] [address] Specialist Cardiology 10/13/22 Desi Swenson NP [address] [place], [place] [address] Cardiology 02/29/24 documented as of this encounter
--- OUTSIDE RECORDS SUMMARY | 2024-09-13 06:51 | XMS_ITS | Encounter Summary ---
Author Organization [facility] Address [address] [place] [address] Care Team Providers Care Dental Mold Maker Name Role Phone Reilly Baker MD, PHD Unavailable Brett España MD Primary Care Provider Wayne Dickson Primary Care Provider [phone] Dafne Hilton MD Unavailable [phone] Desi Swenson NP Unavailable Encounter Details Date Type Department Care Team Description 01/26/2022 Orders Only Adult Medicine [address] [address] Brett Velásquez MD Preoperative examination; Screening for [...] Date Type Specialty Care Team Description 04/29/2027 Entry Level Manager Report Abstract, Provider documented as of this encounter Results * BASIC METABOLIC PANEL (02/19/2022 1:21 PM EDT) Pathologist [facility] GLOMERULAR FILTRATION RATE > 60 02/19/2022 5:28 PM EDT [facility] Comment: If patient is -Montserratian, multiply result by 1.21 Chronic Kidney Disease: [...] to patient->Immediate Brett Velásquez MD LAB [facility] * CBC (AUTO DIFF PLATELET) (02/19/2022 1:21 PM EDT) Pathologist [facility] WHITE BLOOD COUNT 6.9 4.8 - 10.8 x10-3/uL 02/19/2022 4:32 PM EDT [facility] RED BLOOD COUNT 5.1 4.5 - 5.5 x10-6/uL 02/19/2022 4:32 PM EDT [facility] Hemoglobin 15.3 13.5 - 17.5 g/dL 02/19/2022 4:32 PM EDT [facility] Hematocrit 45.7 42 - 54 % 02/19/2022 4:32 PM EDT [facility] MEAN CORPUSCULAR VOLUME 89.1 79 - 98 fL 02/19/2022 4:32 PM EDT [facility] MEAN CORPUSCULAR HEMOGLOBIN 29.8 27 - 32 pg 02/19/2022 4:32 PM EDT [facility] MEAN CORPUSCULAR HGB CONC 33.5 32 - 37 g/dL 02/19/2022 4:32 PM EDT [facility] RED CELL DISTRIBUTION WIDTH 11.8 11 - 15 % 02/19/2022 4:32 PM EDT [facility] PLT COUNT 221 130 - 400 x10-3/uL 02/19/2022 4:32 PM EDT [facility] MEAN PLATELET VOLUME 9.2 7 - 11 fL 02/19/2022 4:32 PM EDT [facility] NRBC % AUTO 0.0 <1 % 02/19/2022 4:32 PM EDT [facility] NEUTROPHILS % 66.7 % 02/19/2022 4:32 PM EDT [facility] LYMPH % 24.5 % 02/19/2022 4:32 PM EDT [facility] MONO % 7.8 % 02/19/2022 4:32 PM EDT [facility] EOS % 0.4 % 02/19/2022 4:32 PM EDT [facility] BASO % 0.3 % 02/19/2022 4:32 PM EDT [facility] IMMATURE GRANULOCYTES % 0.3 % 02/19/2022 4:32 PM EDT [facility] NRBC # AUTO 0.00 <0.1 x10-3/uL 02/19/2022 [...] Brett Velásquez MD LAB Performing Organization Address City/State/[facility] Co de Phone Number [facility] documented in this encounter Visit Diagnoses Diagnosis Preoperative examination Preoperative examination, unspecified Screening for deficiency anemia Screening for other and unspecified deficiency anemia Isolated proteinuria with other morphologic lesion documented in this encounter Care Teams Dental Mold Maker Relationship Specialty Start Date End Date Brett Velásquez MD PCP - General Internal Medicine 01/26/22 02/15/22 Wayne Jaimes [address] [place] [address] PCP - General Internal Medicine 02/16/22 Reilly Baker MD, PHD Surgeon Neurosurgery 01/20/22 Dafne Hilton MD [address] [place] [address] Specialist Cardiology 10/13/22 Desi Swenson NP [address] [place] [address] Cardiology 02/29/24 documented as of this encounter
--- OUTSIDE RECORDS SUMMARY | 2024-09-13 06:51 | XMS_ITS | Encounter Summary ---
Author Organization [facility] Address [address] [place] [address] Care Team Providers Care Tutor Name Role Phone Reilly Baker MD, PHD Unavailable Unava Wayne Blackman Primary Care Provider [phone] Dafne Hilton MD Unavailable [phone] Desi Swenson NP Unavailable [phone] Reason for Visit * Reason Onset Date Comments medication problems 04/27/2022 Encounter Details Date Type Department Care Team Description 04/27/2022 Telephone Gastroenterology - [place] [address] [facility] [address] [place] [address] Kevin Oliva PA-C [address] [address] medication problems Social History Tobacco Use Types [...] Date Type Specialty Care Team Description 04/29/2027 Script Girl Report Abstract, Provider documented as of this encounter Visit Diagnoses Not on filedocumented in this encounter Care Teams Tutor Relationship Specialty Start Date End Date Wayne Jaimes [address] [place] [address] PCP - General Internal Medicine 02/16/22 Reilly Baker MD, PHD Surgeon Neurosurgery 01/20/22 Dafne Hilton MD [address] [place] [address] Specialist Cardiology 10/13/22 Desi Swenson NP [address] [place] [address] Cardiology 02/29/24 documented as of this encounter
--- OUTSIDE RECORDS SUMMARY | 2024-09-13 06:51 | XMS_ITS | Clinical Summary ---
Author Organization [facility] Address [address] [place] [address] 7 [place] [address] Care Team Providers Care Jewel Hole Rough Opener Name Role Phone Unavailable Primary Care Provider Unavailabl e Social History Tobacco Use Types Packs/Day Years Used Date Smoking Tobacco: Never Assessed Sex and Gender Information Value Date Recorded Sex Assigned at Male 05/11/2022 10:22 AM EDT Legal Sex Male 10:22 AM EDT Gender Identity Male 05/11/2022 10:22 AM EDT Sexual Orientation Straight 05/11/2022 10 :22 AM EDT Plan of Treatment Health Maintenance Due Date Last Done Comments CT Colonography 1955 Colonoscopy 1955 Colorectal Cancer Screening 1955 Depression Screening 1955 FIT DNA/Cologuard 1955 FIT 1955 FOBT 1955 Lipid Panel 1955 Sigmoidoscopy 1955 Alcohol/Substance Use Screening 1965 Tobacco Screening 1965 DTaP/Tdap/Td Vaccines (1 - Tdap) 1972 Pneumococcal Vaccine: 50+ Ye ars (1 of 1 - PCV) 11/18/2003 Zoster Vaccines (1 of 2) 11/18/2003 COVID-19 Vaccine ( - 2023-2 5 season) 2024 Influenza Vaccine (#1) 2024 RSV Patients and Pa tients Aged 60 years or older (1 - 1-dose 75+ series) 2028 HIB Vaccines Aged Out No longer eligi [...] patient's age to complete this topic Meningococcal Vaccine Aged Out No rajinder guy eligible based on patient's age to complete this topic RSV under 20 months Aged Out No longe r eligible based on patient's age to complete this topic Rotavirus Vaccines Aged Out No longer eligible based on patient's age to complete this topic
--- OUTSIDE RECORDS SUMMARY | 2024-09-13 06:51 | XMS_ITS | Encounter Summary ---
Author Organization [facility] Address [address] [place] [address] Care Team Providers Care Picture Engraver Name Role Phone Reilly Baker MD, PHD Unavailable Unava ilWayne Osborne Primary Care Provider [phone] aDfne Hilton MD Unavailable [phone] Desi Swenson NP Unavailable [phone] Encounter Details Date Type Department Care Team Description 03/18/2022 Telephone [facility] [address] [facility] [address] [place] [address] Ena Whipple PA-C [address] [address] Social History Tobacco Use Types Packs/Day Years [...] Date Type Specialty Care Team Description 04/29/2027 Construction Craft Laborer Report Abstract, Provider documented as of this encounter Visit Diagnoses Not on filedocumented in this encounter Care Teams Picture Engraver Relationship Specialty Start Date End Date Wayne Jaimes [address] [place] [address] PCP - General Internal Medicine 02/16/22 Reilly Baker MD, PHD Surgeon Neurosurgery 01/20/22 Dafne Hilton MD [address] [place] [address] Specialist Cardiology 10/13/22 Desi Swenson NP [address] [place], [place] [phone] Cardiology 02/29/24 documented as of this encounter
--- OUTSIDE RECORDS SUMMARY | 2024-09-13 06:52 | XMS_ITS | Encounter Summary ---
Author Organization [facility] Address [address] [place] [address] Care Team Providers Care Cashier Clerk Name Role Phone Brett Velásquez MD Primary Care Provider Reilly Stewart MD, PHD Unavailable Unava Brett Villegas MD Primary Care Provider Wayne Dickson Primary Care Provider [phone] Dafne Hilton MD Unavailable [phone] Desi Swenson NP Unavailable [phone] Encounter Details Date Type Department Care Team Description 09/16/2020 Network Systems Engineer Report Medical Records [address] [place] [address] Zuleika Baez PA-C Social History Tobacco Use [...] Type Specialty Care Team Description 04/29/2027 Network Systems Engineer Report Abstract, Provider documented as of this encounter Visit Diagnoses Not on filedocumented in this encounter Care Teams Cashier Clerk Relationship Specialty Start Date End Date Brett Velásquez MD PCP - General Internal Medicine 04/21/16 01/25/22 Brett Velásquez MD PCP - General Internal Medicine 01/26/22 02/15/22 Wayne Jaimes [address] [place] [address] PCP - General Internal Medicine 02/16/22 Reilly Baker MD, PHD Surgeon Neurosurgery 01/20/22 Dafne Hilton MD [address] [place] [address] Specialist Cardiology 10/13/22 Desi Swenson NP [address] [place] [address] Cardiology 02/29/24 documented as of this encounter
--- OUTSIDE RECORDS SUMMARY | 2024-09-13 06:52 | XMS_ITS | Encounter Summary ---
Author Organization [facility] Address [address] [place] [address] Care Team Providers Care Bakelite Molder Name Role Phone Brett Velásquez MD Primary Care Provider Reilly Stewart MD, PHD Unavailable Unava ilBrett Bailon MD Primary Care Provider Wayne Dickson Primary Care Provider [phone] Dafne Hilton MD Unavailable [phone] Desi Swenson NP Unavailable [phone] Encounter Details Date Type Department Care Team Description 11/23/2016 Historic Preservationist Report Medical Records [address] [place] [address] Aleksandar Huggins MD Social History Tobacco Use [...] Date Type Specialty Care Team Description 04/29/2027 Historic Preservationist Report Abstract, Provider documented as of this encounter Visit Diagnoses Not on filedocumented in this encounter Care Teams Bakelite Molder Relationship Specialty Start Date End Date Brett Velásquez MD PCP - General Internal Medicine 04/21/16 01/25/22 Brett Velásquez MD PCP - General Internal Medicine 01/26/22 02/15/22 Wayne Jaimes [address] [place] [address] PCP - General Internal Medicine 02/16/22 Reilly Baker MD, PHD Surgeon Neurosurgery 01/20/22 Dafne Hilton MD [address] [place] [address] Specialist Cardiology 10/13/22 Desi Swenson NP [address] [place] [address] Cardiology 02/29/24 documented as of this encounter
--- OUTSIDE RECORDS SUMMARY | 2024-09-13 06:52 | XMS_ITS | Encounter Summary ---
Author Organization [facility] Address [address] [place] [address] Care Team Providers Care Piano Bench Assembler Name Role Phone Brett Velásquez MD Primary Care Provider Reilly Stewart MD, PHD Unavailable UnaBrett Davis MD Primary Care Provider Wayne Dickson Primary Care Provider [phone] Dafne Hilton MD Unavailable [phone] Desi Swenson NP Unavailable [phone] Encounter Details Date Type Department Care Team Description 05/29/2020 Instructional Paraprofessional Report Medical Records [address] [place] [address] Aleksandar Huggins MD Social History Tobacco Use [...] Date Type Specialty Care Team Description 04/29/2027 Instructional Paraprofessional Report Abstract, Provider documented as of this encounter Visit Diagnoses Not on filedocumented in this encounter Care Teams Piano Bench Assembler Relationship Specialty Start Date End Date Brett Velásquez MD PCP - General Internal Medicine 04/21/16 01/25/22 Brett Velásquez MD PCP - General Internal Medicine 01/26/22 02/15/22 Wayne Jaimes [address] [place] [address] PCP - General Internal Medicine 02/16/22 Reilly Baker MD, PHD Surgeon Neurosurgery 01/20/22 Dafne Hilton MD [address] [place] [address] Specialist Cardiology 10/13/22 Desi Swenson NP [address] [place], [place] [phone] Cardiology 02/29/24 documented as of this encounter
--- OUTSIDE RECORDS SUMMARY | 2024-09-13 06:52 | XMS_ITS | Encounter Summary ---
Author Organization [facility] Address [address] [place] [address] Care Team Providers Care Gas And Oil Checker Name Role Phone Reilly Baker MD, PHD Unavailable Unava ilable Wayne Jaimes Primary Care Provider [phone] Dafne Hilton MD Unavailable [phone] Desi Swenson NP Unavailable [phone] Encounter Details Date Type Department Care Team Description 01/06/2023 Walk In Clinic Visit Medical Records [address] [place] [address] Clinic, [facility] Walk-In [address] [place] [address] Social History Tobacco Use Types Packs/Day Years [...] suspected to have Coronavirus/COVID-19? No / Unsure 01/08/2023 1:03 PM EDT documented as of this encounter Plan of Treatment Upcoming Encounters Date Type Specialty Care Team Description 04/29/2027 Applications Scientist Report Abstract, Provider documented as of this encounter Visit Diagnoses Not on filedocumented in this encounter Care Teams Gas And Oil Checker Relationship Specialty Start Date End Date Wayne Jaimes [address] [place] [address] PCP - General Internal Medicine 02/16/22 Reilly Baker MD, PHD Surgeon Neurosurgery 01/20/22 Dafne Hilton MD [address] [place] [address] Specialist Cardiology 10/13/22 Desi Swenson NP [address] [place] [address] Cardiology 02/29/24 documented as of this encounter
--- OUTSIDE RECORDS SUMMARY | 2024-09-13 06:52 | XMS_ITS | Encounter Summary ---
Author Organization [facility] Address [address] [place] [address] Care Team Providers Care Field Gauger Name Role Phone Brett Velásquez MD Primary Care Provider Reilly Stewart MD, PHD Unavailable UnaBrett Davis MD Primary Care Provider Wayne Dickson Primary Care Provider Dafne Hilton MD Unavailable [phone] Desi Swenson NP Unavailable Reason for Visit * Reason Onset Date Comments TEST RESULTS 11/06/2020 Encounter Details Date Type Department Care Team Description 11/06/2020 Telephone Adult Medicine [address] [id number] Divya Ro PA [address] [place] [id number] TEST RESULTS Social History Tobacco Use Types [...] Date Type Specialty Care Team Description 04/29/2027 Rabbet Operator Report Abstract, Provider documented as of this encounter Visit Diagnoses Not on filedocumented in this encounter Care Teams Field Gauger Relationship Specialty Start Date End Date Brett Velásquez MD PCP - General Internal Medicine 04/21/16 01/25/22 Brett Velásquez MD PCP - General Internal Medicine 01/26/22 02/15/22 Wayne Jaimes [address] [place] [address] PCP - General Internal Medicine 02/16/22 Reilly Baker MD, PHD Surgeon Neurosurgery 01/20/22 Dafne Hilton MD [address] [place] [address] Specialist Cardiology 10/13/22 Desi Swenson NP [address] [place] [address] Cardiology 02/29/24 documented as of this encounter
--- OUTSIDE RECORDS SUMMARY | 2024-09-13 06:52 | XMS_ITS | Encounter Summary ---
Author Organization [facility] Address [address] [place] [address] Care Team Providers Care Cement Gun Operator Name Role Phone Brett Velásquez MD Primary Care Provider Keisha Luna MD Primary Care Provider [phone] Brett Velásquez MD Primary Care Provider Reilly Stewart MD, PHD Unavailable Unava ilable Brett Velásquez MD Primary Care Provider Wayne Dickson Primary Care Provider [phone] Dafne Hilton MD Unavailable [phone] Desi Swenson NP Unavailable [phone] Encounter Details Date Type Department Care Team Description 02/28/2013 Apron Man Report Medical Records [address] [place] [address] Rehab., [place] Social History Tobacco Use Types Packs/Day Years [...] Date Type Specialty Care Team Description 04/29/2027 Apron Man Report Abstract, Provider documented as of this encounter Visit Diagnoses Not on filedocumented in this encounter Care Teams Cement Gun Operator Relationship Specialty Start Date End Date Brett Velásquez MD PCP - General Internal Medicine 10/29/11 06/19/15 Keisha Chavez MD [address] [place] [address] PCP - General Internal Medicine 06/20/15 04/20/16 Brett Velásquez MD PCP - General Internal Medicine 04/21/16 01/25/22 Brett Velásquez MD PCP - General Internal Medicine 01/26/22 02/15/22 Wayne Jaimes [address] [place] [address] PCP - General Internal Medicine 02/16/22 Reilly Baker MD, PHD [address] [place] [address] Surgeon Neurosurgery 01/20/22 Dafne Hilton MD [address] [place] [address] Specialist Cardiology 10/13/22 Desi Swenson NP [address] [place] [address] Cardiology 02/29/24 documented as of this encounter
--- OUTSIDE RECORDS SUMMARY | 2024-09-13 06:52 | XMS_ITS | Encounter Summary ---
Author Organization [facility] Address [address] [place] [address] Care Team Providers Care Ladies' Locker Room Attendant Name Role Phone Reilly Baker MD, PHD Unavailable Unava ilable Wayne Jaimes Primary Care Provider [phone] Dafne Hilton MD Unavailable [phone] Desi Swenson NP Unavailable [phone] Encounter Details Date Type Department Care Team Description 01/04/2023 Hospital Medical Records [address] [place] [address] Vladislav Antunez DO Social History Tobacco Use [...] Date Type Specialty Care Team Description 04/29/2027 Calculating Machine Mechanic Report Abstract, Provider documented as of this encounter Visit Diagnoses Not on filedocumented in this encounter Care Teams Ladies' Locker Room Attendant Relationship Specialty Start Date End Date Wayne Jaimes [address] [place] [address] PCP - General Internal Medicine 02/16/22 Reilly Baker MD, PHD Surgeon Neurosurgery 01/20/22 Dafne Hilton MD [address] [place] [address] Specialist Cardiology 10/13/22 Desi Swenson NP [address] [place], [place] [address] Cardiology 02/29/24 documented as of this encounter
--- OUTSIDE RECORDS SUMMARY | 2024-09-13 06:52 | XMS_ITS | Encounter Summary ---
Author Organization [facility] Address [address] [place] [address] Care Team Providers Care Transcribing Operators Supervisor Name Role Phone Brett Velásquez MD Primary Care Provider Reilly Stewart MD, PHD Unavailable Unava ilBrett Bailon MD Primary Care Provider Wayne Dickson Primary Care Provider [phone] Dafne Hilton MD Unavailable [phone] Desi Swenson NP Unavailable [phone] Encounter Details Date Type Department Care Team Description 02/01/2018 Insurance Operations Rep Report Medical Records [address] [place] [address] Rehab., [place] Social History Tobacco Use Types Packs/Day Years [...] Date Type Specialty Care Team Description 04/29/2027 Insurance Operations Rep Report Abstract, Provider documented as of this encounter Visit Diagnoses Not on filedocumented in this encounter Care Teams Transcribing Operators Supervisor Relationship Specialty Start Date End Date Brett Velásquez MD PCP - General Internal Medicine 04/21/16 01/25/22 Brett Velásquez MD PCP - General Internal Medicine 01/26/22 02/15/22 Wayne Jaimes [address] [place] [address] PCP - General Internal Medicine 02/16/22 Reilly Baker MD, PHD Surgeon Neurosurgery 01/20/22 Dafne Hilton MD [address] [place] [address] Specialist Cardiology 10/13/22 Desi Swenson NP [address] [place] [address] Cardiology 02/29/24 documented as of this encounter
--- OUTSIDE RECORDS SUMMARY | 2024-09-13 06:52 | XMS_ITS | Encounter Summary ---
Author Organization [facility] Address [address] [place] [address] Care Team Providers Care Splicing Supervisor Name Role Phone Brett Velásquez MD Primary Care Provider Reilly Stewart MD, PHD Unavailable Unava Brett Villegas MD Primary Care Provider Wayne Dickson Primary Care Provider [phone] Dafne Hilton MD Unavailable [phone] Desi Swenson NP Unavailable [phone] Encounter Details Date Type Department Care Team Description 09/18/2020 Chemical Blender Report Medical Records [address] [place] [address] Desi Li DPM Social History Tobacco Use [...] Date Type Specialty Care Team Description 04/29/2027 Chemical Blender Report Abstract, Provider documented as of this encounter Visit Diagnoses Not on filedocumented in this encounter Care Teams Splicing Supervisor Relationship Specialty Start Date End Date Brett Velásquez MD PCP - General Internal Medicine 04/21/16 01/25/22 Brett Velásquez MD PCP - General Internal Medicine 01/26/22 02/15/22 Wayne Jaimes [address] [place] [address] PCP - General Internal Medicine 02/16/22 Reilly Baker MD, PHD Surgeon Neurosurgery 01/20/22 Dafne Hilton MD [address] [place] [address] Specialist Cardiology 10/13/22 Desi Swenson NP [address] [place] [address] Cardiology 02/29/24 documented as of this encounter
--- OUTSIDE RECORDS SUMMARY | 2024-09-13 06:52 | XMS_ITS | Encounter Summary ---
Author Organization [facility] Address [address] [place] [address] Care Team Providers Care Control And Recovery Combat Rescue Name Role Phone Reilly Baker MD, PHD Unavailable Unava ilable Wayne Jaimes Primary Care Provider [phone] Dafne Hilton MD Unavailable [phone] Desi Swenson NP Unavailable [phone] Encounter Details Date Type Department Care Team Description 12/17/2022 SCAN Medical Records [address] [place] [address] [facility] Social History Tobacco Use Types Packs/Day Years [...] Date Type Specialty Care Team Description 04/29/2027 Planning Division Superintendent Report Abstract, Provider documented as of this encounter Visit Diagnoses Not on filedocumented in this encounter Care Teams Control And Recovery Combat Rescue Relationship Specialty Start Date End Date Wayne Jaimes [address] [place] [address] PCP - General Internal Medicine 02/16/22 Reilly Baker MD, PHD Surgeon Neurosurgery 01/20/22 Dafne Hilton MD [address] [place], [place] [phone] Specialist Cardiology 10/13/22 Desi Swenson NP [address] [place], [place] [phone] Cardiology 02/29/24 documented as of this encounter
--- OUTSIDE RECORDS SUMMARY | 2024-09-13 06:52 | XMS_ITS | Encounter Summary ---
Author Organization [facility] Address [address] [place] [address] Care Team Providers Care Transportation Museum Helper Name Role Phone Reilly Baker MD, PHD Unavailable Unava ilable Wayne Jaimes Primary Care Provider [phone] Dafne Hilton MD Unavailable [phone] Desi Swenson NP Unavailable [phone] Encounter Details Date Type Department Care Team Description 10/12/2022 Walk In Clinic Visit Medical Records [address] [place] [address] Clinic, [facility] Walk-In [address] [place] [address] Social History Tobacco Use Types Packs/Day Years [...] Specialty Care Team Description 04/29/2027 Sheet Metal Assembler Report Abstract, Provider documented as of this encounter Visit Diagnoses Not on filedocumented in this encounter Care Teams Transportation Museum Helper Relationship Specialty Start Date End Date Wayne Jaimes [address] [place] [address] PCP - General Internal Medicine 02/16/22 Reilly Baker MD, PHD Surgeon Neurosurgery 01/20/22 Dafne Hilton MD [address] [place] [address] Specialist Cardiology 10/13/22 Desi Swenson NP [address] [place] [address] Cardiology 02/29/24 documented as of this encounter
--- OUTSIDE RECORDS SUMMARY | 2024-09-13 06:52 | XMS_ITS | Encounter Summary ---
Author Organization [facility] Address [address] [place] [address] Care Team Providers Care Longitudinal Float Operator Name Role Phone Reilly Baker MD, PHD Unavailable Unava ilable Wayne Jaimes Primary Care Provider [phone] Dafne Hilton MD Unavailable [phone] Desi Swenson NP Unavailable [phone] Encounter Details Date Type Department Care Team Description 09/30/2022 Mathematics Department Chair Report Medical Records [address] [place] [address] Social History Tobacco Use Types Packs/Day Years [...] Date Type Specialty Care Team Description 04/29/2027 Mathematics Department Chair Report Abstract, Provider documented as of this encounter Visit Diagnoses Not on filedocumented in this encounter Care Teams Longitudinal Float Operator Relationship Specialty Start Date End Date Wayne Jaimes [address] [place] [address] PCP - General Internal Medicine 02/16/22 Reilly Baker MD, PHD Surgeon Neurosurgery 01/20/22 Dafne Hilton MD [address] [place] [address] Specialist Cardiology 10/13/22 Desi Swenson NP [address] [place] [address] Cardiology 02/29/24 documented as of this encounter
--- OUTSIDE RECORDS SUMMARY | 2024-09-13 06:52 | XMS_ITS | Encounter Summary ---
Author Organization [facility] Address [address] [place] [address] Care Team Providers Care Boat Mechanic Name Role Phone Brett Velásquez MD Primary Care Provider Keisha Luna MD Primary Care Provider [phone] Brett Velásquez MD Primary Care Provider Reilly Stewart MD, PHD Unavailable Unava ilable Brett Velásquez MD Primary Care Provider Wayne Dickson Primary Care Provider [phone] Dafne Hilton MD Unavailable [phone] Dsei Swenson NP Unavailable [phone] Encounter Details Date Type Department Care Team Description 11/20/2013 Release of Information Medical Records [address] [place] [address] Abstract, Provider Social History Tobacco Use Types [...] Date Type Specialty Care Team Description 04/29/2027 Switch Foreman Report Abstract, Provider documented as of this encounter Visit Diagnoses Not on filedocumented in this encounter Care Teams Boat Mechanic Relationship Specialty Start Date End Date Brett Velásquez MD PCP - General Internal Medicine 10/29/11 06/19/15 Keisha Chavez MD [address] [place] [address] PCP - General Internal Medicine 06/20/15 04/20/16 Brett Velásquez MD PCP - General Internal Medicine 04/21/16 01/25/22 Brett Velásquez MD PCP - General Internal Medicine 01/26/22 02/15/22 Wayne Jaimes [address] [place], [place] [address] PCP - General Internal Medicine 02/16/22 Reilly Baker MD, PHD [address] [place] [address] Surgeon Neurosurgery 01/20/22 Dafne Hilton MD [address] [place] [address] Specialist Cardiology 10/13/22 Desi Swenson NP [address] [place] [address] Cardiology 02/29/24 documented as of this encounter
--- OUTSIDE RECORDS SUMMARY | 2024-09-13 06:52 | XMS_ITS | Encounter Summary ---
Author Organization [facility] Address [address] [place] [address] Care Team Providers Care Endocrinology Teacher Name Role Phone Reilly Baker MD, PHD Unavailable Unava ilable Wayne Jaimes Primary Care Provider [phone] Dafne Hilton MD Unavailable [phone] Desi Swenson NP Unavailable [phone] Encounter Details Date Type Department Care Team Description 10/08/2022 Risk Management Consultant Report Medical Records [address] [place] [address] Vladislav Antunez DO Social History Tobacco Use [...] Date Type Specialty Care Team Description 04/29/2027 Risk Management Consultant Report Abstract, Provider documented as of this encounter Visit Diagnoses Not on filedocumented in this encounter Care Teams Endocrinology Teacher Relationship Specialty Start Date End Date Wayne Jaimes [address] [place], [place] [address] PCP - General Internal Medicine 02/16/22 Reilly Baker MD, PHD Surgeon Neurosurgery 01/20/22 Dafne Hilton MD [address] [place] [address] Specialist Cardiology 10/13/22 Desi Swenson NP [address] [place], [place] [address] Cardiology 02/29/24 documented as of this encounter
--- OUTSIDE RECORDS SUMMARY | 2024-09-13 06:52 | XMS_ITS | Encounter Summary ---
Author Organization [facility] Address [address] [place] [address] Care Team Providers Care Commercial Escrow Assistant Name Role Phone Brett Velásquez MD Primary Care Provider Reilly Stewart MD, PHD Unavailable Unava ilBrett Bailon MD Primary Care Provider Wayne Dickson Primary Care Provider Dafne Hilton MD Unavailable [phone] Desi Swenson NP Unavailable [phone] Encounter Details Date Type Department Care Team Description 05/03/2018 Release of Information Medical Records [address] [place] [address] Abstract, Provider Social History Tobacco Use Types [...] Date Type Specialty Care Team Description 04/29/2027 Framework Developer Report Abstract, Provider documented as of this encounter Visit Diagnoses Not on filedocumented in this encounter Care Teams Commercial Escrow Assistant Relationship Specialty Start Date End Date Brett Velásquez MD PCP - General Internal Medicine 04/21/16 01/25/22 Brett Velásquez MD PCP - General Internal Medicine 01/26/22 02/15/22 Wayne Jaimes [address] [place] [address] PCP - General Internal Medicine 02/16/22 Reilly Baker MD, PHD Surgeon Neurosurgery 01/20/22 Dafne Hilton MD [address] [place] [address] Specialist Cardiology 10/13/22 Desi Swenson NP [address] [place] [address] Cardiology 02/29/24 documented as of this encounter
--- OUTSIDE RECORDS SUMMARY | 2024-09-13 06:52 | XMS_ITS | Encounter Summary ---
Author Organization [facility] Address [address] [place] [address] Care Team Providers Care Spindraw Operator Name Role Phone Brett Velásquez MD Primary Care Provider Reilly Stewart MD, PHD Unavailable Unava Brett Villegas MD Primary Care Provider Wayne Dickson Primary Care Provider [phone] Dafne Hilton MD Unavailable [phone] Desi Swenson NP Unavailable [phone] Encounter Details Date Type Department Care Team Description 03/31/2017 Carpenter Mold Report Medical Records [address] [place] [address] Vipin Rhoades Social History Tobacco Use Types [...] Date Type Specialty Care Team Description 04/29/2027 Carpenter Mold Report Abstract, Provider documented as of this encounter Visit Diagnoses Not on filedocumented in this encounter Care Teams Spindraw Operator Relationship Specialty Start Date End Date Brett Velásquez MD PCP - General Internal Medicine 04/21/16 01/25/22 Brett Velásquez MD PCP - General Internal Medicine 01/26/22 02/15/22 Wayne Jaimes [address] [place] [address] PCP - General Internal Medicine 02/16/22 Reilly Baker MD, PHD Surgeon Neurosurgery 01/20/22 Dafne Hilton MD [address] [place] [address] Specialist Cardiology 10/13/22 Desi Swenson NP [address] [place] [address] Cardiology 02/29/24 documented as of this encounter
--- OUTSIDE RECORDS SUMMARY | 2024-09-13 06:52 | XMS_ITS | Encounter Summary ---
Author Organization [facility] Address [address] [place] [address] Care Team Providers Care Pricing Associate Name Role Phone Brett Velásquez MD Primary Care Provider Reilly Stewart MD, PHD Unavailable Unapr Brett Villegas MD Primary Care Provider Wayne Dickson Primary Care Provider [phone] Dafne Hilton MD Unavailable [phone] Desi Swenson NP Unavailable [phone] Encounter Details Date Type Department Care Team Description 12/08/2017 Measurement And Verification Engineer Report Medical Records [address] [place] [address] Mahsa Oreilly PA Social History Tobacco Use [...] Date Type Specialty Care Team Description 04/29/2027 Measurement And Verification Engineer Report Abstract, Provider documented as of this encounter Visit Diagnoses Not on filedocumented in this encounter Care Teams Pricing Associate Relationship Specialty Start Date End Date Brett Velásquez MD PCP - General Internal Medicine 04/21/16 01/25/22 Brett Velásquez MD PCP - General Internal Medicine 01/26/22 02/15/22 Wayne Jaimes [address] [place] [address] PCP - General Internal Medicine 02/16/22 Reilly Baker MD, PHD Surgeon Neurosurgery 01/20/22 Dafne Hilton MD [address] [place] [address] Specialist Cardiology 10/13/22 Desi Swenson NP [address] [place] [address] Cardiology 02/29/24 documented as of this encounter
--- OUTSIDE RECORDS SUMMARY | 2024-09-13 06:52 | XMS_ITS ---
Author Organization [facility] Address [address] [facility] [address] [place] [address] Care Team Providers Care Hospital Aides And Assistants Teacher Name Role Phone Wayne Jaimes MD Primary Care Provider DESI Burks Unavailable [phone] Allergies No Known Allergies REASON FOR VISIT [...] Not-Taking Diclofenac Sodium 1 % as directed Bellman Driver ally place 1 g onto the skin [...] W/U Status Risk Notes Problem Lumbar radiculopathy (264901171) Lumbar radiculopat hy, right (M54.16) Active confirmed Procedures Procedure Date Ordered Date Performed Result Body Sit e DRAIN/INJECT, SMALL JOINT/BURSA 04/10/2024 N/A Encounters Encounter Location Date Provider Diagnosis [facility] [address] [address] 04/10/2024 DESI LI Onychomycosis B35.1 ; Calcium [...] Date Notes Efinaconazole 10 % 1 application Bellman Driver ally Once a day for 90 days [...] Name:DESI LI, 10/11/2024 02:45:00 PM, [address], [address], Medications Administered Medication Instructions Date of Administration Dosage Notes dexAMETHasone Sod Phosphate PF 04/10/2024 0.5 m L Kenalog 04/10/2024 0.5 mL Progress Notes * Mckinley LEWISOB:1955 ([age] yo M)Acc No.[id number]:04/10/2024 Progress Note Patient:?Laina LEWIS Provider:?Desi Li DPM :1955???Age:68 Y???Sex:Male Nael e:04/10/2024 Address:[address] [place], [place] [address] Pcp:Wayne Jaimes MD Subjective: * Chief Complaints: [...] bilaterally, protective sensation intact 10/10 with 5.07 [place] Alisha bilaterally, vibratory sensation with tuning fork [...] RT J1100 INJ DEXAMETHASONE SODIM PHOSHATE 1 [id number] INJ TRIAMCINOLONE ACETONIDE 10 MG * Follow Up:?3 Months * Billing Information: * Visit Code:? 63055 Office Visit, Est Pt., Level 4. Modifiers: 25 * Procedure Codes:? 42127 DRAIN/INJECT, SMALL JOINT/BURSA. Modifiers: RT J1100 INJ DEXAMETHASONE SODIM PHOSHATE 1 MG. J3301 INJ TRIAMCINOLONE ACETONIDE 10 MG. * Sign off status: Completed true * Provider:?Desi Li DPM Date:? 04/10/2024 Generated for Tatiana lema/Nilsa/Glo on:?09/13/2024 06:51 AM EST History and Physical [...] bilaterally, protective sensation intact 10/10 with 5.07 [place] Alisha bilaterally, vibratory sensation with tuning fork [...]
--- OUTSIDE RECORDS SUMMARY | 2024-09-13 06:52 | XMS_ITS | Encounter Summary ---
Author Organization [facility] Address [address] [place] [address] Care Team Providers Care Supervisor Garment Manufacturing Name Role Phone Brett Velásquez MD Primary Care Provider Reilly Stewart MD, PHD Unavailable Brett España MD Primary Care Provider Wayne Dickson Primary Care Provider [phone] Dafne Hilton MD Unavailable Desi Swenson NP Unavailable [phone] Encounter Details Date Type Department Care Team Description 09/01/2020 [facility] [address] [place] [address] Md Steve Social History Tobacco Use Types [...] Date Type Specialty Care Team Description 04/29/2027 Car Pincher Report Abstract, Provider documented as of this encounter Visit Diagnoses Not on filedocumented in this encounter Care Teams Supervisor Garment Manufacturing Relationship Specialty Start Date End Date Brett Velásquez MD PCP - General Internal Medicine 04/21/16 01/25/22 Brett Velásquez MD PCP - General Internal Medicine 01/26/22 02/15/22 Wayne Jaimes [address] [place] [address] PCP - General Internal Medicine 02/16/22 Reilly Baker MD, PHD Surgeon Neurosurgery 01/20/22 Dafne Hilton MD [address] [place] [address] Specialist Cardiology 10/13/22 Desi Swenson NP [address] [place] [address] Cardiology 02/29/24 documented as of this encounter
--- OUTSIDE RECORDS SUMMARY | 2024-09-13 06:52 | XMS_ITS | Encounter Summary ---
Author Organization [facility] Address [address] [place] [address] Care Team Providers Care Security Operations Center Analyst Name Role Phone Reilly Baker MD, PHD Unavailable Unava Wayne Blackman Primary Care Provider [phone] Dafne Hilton MD Unavailable [phone] Desi Swenson NP Unavailable [phone] Encounter Details Date Type Department Care Team Description 10/23/2022 SCAN Medical Records [address] [place] [address] Abstract, Provider Social History Tobacco Use Types [...] Date Type Specialty Care Team Description 04/29/2027 Medical Office Asst Report Abstract, Provider documented as of this encounter Procedures Procedure Name Priority Date/Time Associated Diagnosis Comments OUTSIDE BARIUM SWALLOW Routine 10/23/2022 documented in this encounter Results * OUTSIDE BARIUM SWALLOW (10/23/2022) Provider Default RADIOLOGY documented in this encounter Visit Diagnoses Not on filedocumented in this encounter Care Teams Security Operations Center Analyst Relationship Specialty Start Date End Date Wayne Jaimes [address] [place] [address] PCP - General Internal Medicine 02/16/22 Reilly Baker MD, PHD Surgeon Neurosurgery 01/20/22 Dafne Hilton MD [address] [place] [address] Specialist Cardiology 10/13/22 Desi Swenson NP [address] [place], [place] [address] Cardiology 02/29/24 documented as of this encounter
--- OUTSIDE RECORDS SUMMARY | 2024-09-13 06:52 | XMS_ITS | Encounter Summary ---
Author Organization [facility] Address [address] [place] [address] Care Team Providers Care Tour Manager Name Role Phone Reilly Baker MD, PHD Unavailable Unava Wayne Blackman Primary Care Provider Dafne Hilton MD Unavailable [phone] Desi Swenson NP Unavailable Encounter Details Date Type Department Care Team Description 10/13/2022 Telephone [facility] [address] [phone] Ankita Yanes MD [address] [id number] Social History Tobacco Use Types Packs/Day Years [...] encounter Miscellaneous Notes * Telephone Encounter - Baylee Sharpe - 10/13/2022 2:50 PM EDT Pt is scheduled to see stef for a left middle finger cortisone inj on 10/15 * Telephone Encounter - Ankita Yanes MD - 10/13/2022 1:08 PM EDT I did call the patient I left a voicemail Since he just had a myocardial infarction in August I felt it best to wait before proceeding withthe trigger finger surgery. If he is currently symptomatic and it is bothersome we can do another injection. documented in this encounter Plan of Treatment Upcoming Encounters Date Type Specialty Care Team Description 04/29/2027 Plumber Assistant Report Abstract, Provider documented as of this encounter Visit Diagnoses Not on filedocumented in this encounter Care Teams Tour Manager Relationship Specialty Start Date End Date Wayne Jaimes [address] [place] [address] PCP - General Internal Medicine 02/16/22 Reilly Baker MD, PHD Surgeon Neurosurgery 01/20/22 Dafne Hilton MD [address] [place] [address] Specialist Cardiology 10/13/22 Desi Swenson NP [address] [place] [address] Cardiology 02/29/24 documented as of this encounter
--- OUTSIDE RECORDS SUMMARY | 2024-09-13 06:52 | XMS_ITS | Encounter Summary ---
Author Organization [facility] Address [address] [place] [address] Care Team Providers Care Shade Classifier Name Role Phone Brett Velásquez MD Primary Care Provider Keisha Luna MD Primary Care Provider [phone] Brett Velásquez MD Primary Care Provider Reilly Stewart MD, PHD Unavailable Unava ilable Brett Velásquez MD Primary Care Provider Wayne Dickson Primary Care Provider Dafne Hilton MD Unavailable [phone] Desi Swenson NP Unavailable [phone] Encounter Details Date Type Department Care Team Description 10/11/2012 Bpm Solution Architect Report Medical Records [address] [place] [address] Kareem Grier PA-C Social History Tobacco Use [...] Date Type Specialty Care Team Description 04/29/2027 Bpm Solution Architect Report Abstract, Provider documented as of this encounter Visit Diagnoses Not on filedocumented in this encounter Care Teams Shade Classifier Relationship Specialty Start Date End Date Brett Velásquez MD PCP - General Internal Medicine 10/29/11 06/19/15 Keisha Chavez MD [address] [place] [address] PCP - General Internal Medicine 06/20/15 04/20/16 Brett Velásquez MD PCP - General Internal Medicine 04/21/16 01/25/22 Brett Velásquez MD PCP - General Internal Medicine 01/26/22 02/15/22 Wayne Jaimes [address] [place] [address] PCP - General Internal Medicine 02/16/22 Reilly Baker MD, PHD [address] [place] [address] Surgeon Neurosurgery 01/20/22 Dafne Hilton MD [address] [place] [address] Specialist Cardiology 10/13/22 Desi Swenson NP [address] [place] [address] Cardiology 02/29/24 documented as of this encounter
--- OUTSIDE RECORDS SUMMARY | 2024-09-13 06:52 | XMS_ITS | Patient Health Record ---
Author Organization [facility] Address [address] [facility] [address] [place] [address] Care Team Providers Care Dentist/Owner Name Role Phone Wayne Jaimes MD Primary Care Provider JORGE L Burks Unavailable [phone] Allergies No Known Allergies Reason For Referral No Information Medications Medication SIG (Take, Route, Frequency, Duration) Notes Start Date End Date Status hydrOXYzine HCl 50 MG 1 tablet as needed Orally once a day for 30 day(s) 01/20/2021 Not-Taking Ketoconazole 2 % 1 application Externally Once a day Active Meclizine HCl 12.5 MG 2 tablets as neede d Orally 3 times daily Not-Taking Voltaren Active Gabapentin 300 MG 1 capsule Orally bid Not-Taking Jublia 10 % 1 application Externally Once a day Active Finasteride 5 MG 1 tablet Orally Once a day Not-Taking Pantoprazole Sodium 20 MG 1 tablet Orall y Once a day Not-Taking predniSONE 20 MG [...] Externally twice daily for 30 days Active Brilinta 90 MG 1 tablet Orally Twic e a day Not-Taking Losartan Potassium 25 MG 1 tablet Orally 0.5 tab Once a day Active Vitamin E 400 UNIT 1 capsule Orally Onc e a day Not-Taking Diclofenac Sodium 1 % as directed Clinical Education Coordinator ally place 1 g onto the skin bid Active Tamsulosin HCl 0.4 MG 1 capsule Orally O nce a day Not-Taking Albuterol Sulfate 108 (90 Base) MCG/ACT 1 puff as needed Inhalation every 4 hrs Active Griseofulvin Ultramicrosize 250 MG 1 tablet after a meal Orally once a day for 45 days Not-Taking Tacrolimus 0.1 % 1 application to the right foot rash Externally Once a day for 30 days Active Multivitamin Not-Oseas ing Lactulose 10 GM 1 packet Orally bid Not-Taking Atorvastatin Calcium 80 MG 1 tablet Oral ly Once a day Active Itraconazole 100 MG 1 capsule after a me al Orally Once a day for 30 days 04/15/2022 Not-Taking Aspirin 81 MG 1 tablet Orally Once a day Active Lidocaine 5 % 1 patch remove after 12 hours Externally Once a day Active Esomeprazole Magnesium 40 MG 1 capsule Orally Once a day Active Vitamin D Not-Taking traMADol HCl 50 MG 1 tablet as needed Orally Once a day Active Diclofenac Epolamine 1.3 % 1 patch as ne eded Externally Once a day for 30 days Not-Taking Sucralfate 1 GM/10ML 10 mL 1 hour before meals and at bedtime on an empty stomach Orally Four times a day Active Griseofulvin Ultramicrosize 250 MG 1 tablet after a meal Orally once a day for 90 days 01/13/2022 Not-Taking Triamcinolone (oint)-Silicone Active Mupirocin 2 % 1 application Externally Twice a day for 30 days 01/13/2022 Not-Taking Problems Problem Type SNOMED Code ICD Code Onset Dates Problem Status W/U Status Risk Notes Problem [id number] Primary osteoarthritis, right ankle and foot (M19.071) Active confirmed Problem 470517928 Primary osteoarthritis, left 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) Active confirmed Problem 227324142 Equinus contracture of right ankle (M24.571) Active confirmed Problem 5585531 Psoriasis (L40.9) Active confirmed Problem Lumbar radiculopathy (460359083) Lumbar radiculopathy, right (M54.16) Active confirmed Problem 410072460 Calcium pyrophosphate deposition disease (CPPD) (M11.20) Active confirmed Vital Signs Heart Rate 62 /min 12/24/2023 Temperature 97.3 degrees Fahrenheit 12/24/2023 Respiratory Rate 12 /min 12/24/2023 Height 5ft 6in in 07/10/2024 Weight 157.8 lbs 07/10/2024 BMI 25.47 kg/m2 07/10/2024 Procedures Procedure Date Ordered Date Performed Result Body Sit e DRAIN/INJECT, SMALL JOINT/BURSA 09/20/2023 N/A DRAIN/INJECT, SMALL JOINT/BURSA 12/24/2023 N/A DRAIN/INJECT, SMALL JOINT/BURSA 04/10/2024 N/A DRAIN/INJECT, SMALL JOINT/BURSA 07/10/2024 N/A Encounters Encounter Location Date Provider Diagnosis [facility] [address] 09/20/2023 JORGE L REDDY Onychomycosis B35.1 ; Calcium pyrophosphate deposition disease (CPPD) M11.20 ; Psoriasis L40.9 ; Hallux limitus of left foot M20.5X2 ; Hallux limitus of right foot M20.5X1 and Lumbar radiculopathy, right M54.16 [facility] [address] 12/24/2023 JORGE L REDDY Onychomycosis B35.1 ; Calcium pyrophosphate deposition disease (CPPD) M11.20 ; Psoriasis L40.9 ; Hallux limitus of left foot M20.5X2 ; Hallux limitus of right foot M20.5X1 and Lumbar radiculopathy, right M54.16 [facility] [address] [address] 04/10/2024 JORGE L REDDY Onychomycosis B35.1 ; Calcium pyrophosphate deposition disease (CPPD) M11.20 ; Psoriasis L40.9 ; Hallux limitus of left foot M20.5X2 ; Hallux limitus of right foot M20.5X1 ; Lumbar radiculopathy, right M54.16 ; Achilles tendinitis, right leg M76.61 and Achilles tendinitis, left leg M76.62 [facility] [address] 07/10/2024 JORGE L REDDY Onychomycosis B35.1 ; Calcium [...] to apply to each affected toenail daily. 07/10/2024 Onychomycosis (ICD-10 - B35.1) I reviewed [...] to return when ready for the procedure. 04/10/2024 Calcium pyrophosphate deposition disease (CPPD) (ICD-10 [...] currently being followed at the [facility] for CPPD. His notes were not available for review. He continues to have joint pain bilaterally. I recommended he follows up with rheumatology regarding this issue. 07/10/2024 Calcium pyrophosphate deposition disease (CPPD) (ICD-10 [...] currently being followed at the [facility] for CPPD. His notes were not available for review. He continues to have joint pain bilaterally. I recommended he follows up with rheumatology regarding this issue. 12/24/2023 Calcium pyrophosphate deposition disease (CPPD) (ICD-10 [...] currently being followed at the [facility] for CPPD. His notes were not available [...] does not need another refill today. 09/20/2023 Calcium pyrophosphate deposition disease (CPPD) (ICD-10 [...] wear on his shoes are equal. 07/10/2024 Psoriasis (ICD-10 - L40.9) We discussed [...] the right 4th and 5th toes. 07/10/2024 Hallux limitus of right foot (ICD-10 [...] Achilles tendinitis, left leg (ICD-10 - M76.62) 07/10/2024 Achilles tendinitis, right leg (ICD-10 - [...] leg (ICD-10 - M76.62) Plan Of Treatment Pending Test Test Name Order Date Body [...] 12/24/19 24 DRAIN/INJECT, SMALL JOINT/BURSA 04/10/20 24 DRAIN/INJECT, SMALL JOINT/BURSA 07/10/20 24 Next Appt Details Provider Name:JORGE L KRANTHI REDDY, 10/11/2024 02:45:00 PM, [address], [address], Insurance Providers Payer Name Payer Address Payer Phone Subscriber Number Group Number Insured Name Patient Relationship to Insured Coverage Start Date Coverage End Date [employer] care medicare community plan [address] [address] [place] [address] [id number] Laina Reynolds Self - patient is the insured Medications Administered Medication Instructions Date of Administration Dosage Notes Dexamethasone 08/15/2020 0.5 mL Dexamethasone 02/17/2021 0.5 mL Dexamethasone 01/13/2022 0.5 mg dexAMETHasone Sod Phosphate PF 06/15/2023 0.5 m L dexAMETHasone Sod Phosphate PF 09/20/2023 0.5 m L dexAMETHasone Sod Phosphate PF 12/24/2023 0.5 m L dexAMETHasone Sod Phosphate PF 04/10/2024 0.5 m L dexAMETHasone Sod Phosphate PF 07/10/2024 0.5 m L Kenalog 08/15/2020 0.5 mL Kenalog 02/17/2021 0.5 mL Kenalog 01/13/2022 0.5 mL Kenalog 06/15/2023 0.5 mL Kenalog 09/20/2023 0.5 mL Kenalog 12/24/2023 0.5 mL Kenalog 04/10/2024 0.5 mL Kenalog 07/10/2024 0.5 mL Medical (General) History Medical History History ICD Code Congenital multiple [...]
--- OUTSIDE RECORDS SUMMARY | 2024-09-13 06:52 | XMS_ITS | Encounter Summary ---
Author Organization [facility] Address [address] [place] [address] Care Team Providers Care Director Of Sustainability Programs Name Role Phone Brett Velásquez MD Primary Care Provider Reilly Stewart MD, PHD Unavailable Unava ilBrett Bailon MD Primary Care Provider Wayne Dickson Primary Care Provider [phone] Dafne Hilton MD Unavailable [phone] Desi Swenson NP Unavailable [phone] Encounter Details Date Type Department Care Team Description 08/06/2016 Release of Information Medical Records [address] [place] [address] Abstract, Provider Social History Tobacco Use Types [...] Date Type Specialty Care Team Description 04/29/2027 Nail Setter Report Abstract, Provider documented as of this encounter Visit Diagnoses Not on filedocumented in this encounter Care Teams Director Of Sustainability Programs Relationship Specialty Start Date End Date Brett Velásquez MD PCP - General Internal Medicine 04/21/16 01/25/22 Brett Velásquez MD PCP - General Internal Medicine 01/26/22 02/15/22 Wayne Jaimes [address] [place] [address] PCP - General Internal Medicine 02/16/22 Reilly Baker MD, PHD Surgeon Neurosurgery 01/20/22 Dafne Hilton MD [address] [place] [address] Specialist Cardiology 10/13/22 Desi Swenson NP [address] [place] [address] Cardiology 02/29/24 documented as of this encounter
--- OUTSIDE RECORDS SUMMARY | 2024-09-13 06:52 | XMS_ITS | Encounter Summary ---
Author Organization [facility] Address [address] [place] [address] Care Team Providers Care Handbell Choir Director Name Role Phone Brett Velásquez MD Primary Care Provider Reilly Stewart MD, PHD Unavailable UnaBrett Davis MD Primary Care Provider Wayne Dickson Primary Care Provider [phone] Dafne Hilton MD Unavailable [phone] Desi Swenson NP Unavailable [phone] Encounter Details Date Type Department Care Team Description 04/22/2020 Orders Only Medical Records [address] [place] [address] Vladislav Antunez DO Social History Tobacco Use [...] Date Type Specialty Care Team Description 04/29/2027 Retail Sales Merchandiser Development Report Abstract, Provider documented as of this encounter Procedures Procedure Name Priority Date/Time Associated Diagnosis Comments OUTSIDE LAB Routine 04/21/2020 documented in this encounter Results * OUTSIDE LAB (04/21/2020) Vladislav Antunez DO LAB documented in this encounter Visit Diagnoses Not on filedocumented in this encounter Care Teams Handbell Choir Director Relationship Specialty Start Date End Date Brett Velásquez MD PCP - General Internal Medicine 04/21/16 01/25/22 Brett Velásquez MD PCP - General Internal Medicine 01/26/22 02/15/22 Wayne Jaimes [address] [place] [address] PCP - General Internal Medicine 02/16/22 Reilly Baker MD, PHD Surgeon Neurosurgery 01/20/22 Dafne Hilton MD [address] [place], [place] [id number] Specialist Cardiology 10/13/22 Desi Swenson NP [address] [place], [place] [address] Cardiology 02/29/24 documented as of this encounter
--- OUTSIDE RECORDS SUMMARY | 2024-09-13 06:53 | XMS_ITS | Encounter Summary ---
Author Organization [facility] Address [address] [place] [address] Care Team Providers Care Nut Sheller Machine Operator Name Role Phone Reilly Baker MD, PHD Unavailable Unava ilWayne Osborne Primary Care Provider [phone] Dafne Hilton MD Unavailable [phone] Desi Swenson NP Unavailable [phone] Encounter Details Date Type Department Care Team Description 08/20/2023 Telephone Gastroenterology - [place] [address] [facility] [address] [place] [phone] Kevin Oliva PA-C [address] [address] Social History Tobacco Use Types Packs/Day Years [...] Date Type Specialty Care Team Description 04/29/2027 Reservations Sales Agent Report Abstract, Provider documented as of this encounter Visit Diagnoses Not on filedocumented in this encounter Care Teams Nut Sheller Machine Operator Relationship Specialty Start Date End Date NovabelkisJose M hinklegil Dowell [address] [place] [address] PCP - General Internal Medicine 02/16/22 Reilly Baker MD, PHD Surgeon Neurosurgery 01/20/22 Dafne Hilton MD [address] [place] [address] Specialist Cardiology 10/13/22 Desi Swenson NP [address] [place] [address] Cardiology 02/29/24 documented as of this encounter
--- OUTSIDE RECORDS SUMMARY | 2024-09-13 06:53 | XMS_ITS | Encounter Summary ---
Author Organization [facility] Address [address] [place] [address] Care Team Providers Care Fox Raiser Name Role Phone Brett Velásquez MD Primary Care Provider Reilly Stewart MD, PHD Unavailable UnaBrett Davis MD Primary Care Provider Wayne Dickson Primary Care Provider Dafne Hilton MD Unavailable [phone] Desi Swenson NP Unavailable [phone] Encounter Details Date Type Department Care Team Description 10/31/2021 [facility] [address] [phone] Ena Whipple, PA-C [address] [address] Social History Tobacco Use Types Packs/Day Years [...] Date Type Specialty Care Team Description 04/29/2027 Lime Kiln Tender Report Abstract, Provider documented as of this encounter Visit Diagnoses Not on filedocumented in this encounter Care Teams Fox Raiser Relationship Specialty Start Date End Date Brett Velásquez MD PCP - General Internal Medicine 04/21/16 01/25/22 Brett Velásquez MD PCP - General Internal Medicine 01/26/22 02/15/22 Wayne Jaimes [address] [place] [address] PCP - General Internal Medicine 02/16/22 Reilly Baker MD, PHD Surgeon Neurosurgery 01/20/22 Dafne Hilton MD [address] [place] [address] Specialist Cardiology 10/13/22 Desi Swenson NP [address] [place] [address] Cardiology 02/29/24 documented as of this encounter
--- OUTSIDE RECORDS SUMMARY | 2024-09-13 06:53 | XMS_ITS | Encounter Summary ---
Author Organization [facility] Address [address] [place] [address] Care Team Providers Care Editor In Chief Name Role Phone Reilly Baker MD, PHD Unavailable Unava ilable Wayne Jaimes Primary Care Provider [phone] Dafne Hilton MD Unavailable [phone] Desi Swenson NP Unavailable [phone] Encounter Details Date Type Department Care Team Description 03/21/2024 Stable Hand Report Medical Records [address] [place] [address] Vladislav Antunez DO Social History Tobacco Use [...] Date Type Specialty Care Team Description 04/29/2027 Stable Hand Report Abstract, Provider documented as of this encounter Visit Diagnoses Not on filedocumented in this encounter Care Teams Editor In Chief Relationship Specialty Start Date End Date Wayne Jaimes [address] [place] [address] PCP - General Internal Medicine 02/16/22 Reilly Baker MD, PHD Surgeon Neurosurgery 01/20/22 Dafne Hilton MD [address] [place] [address] Specialist Cardiology 10/13/22 Desi Swenson NP [address] [place] [address] Cardiology 02/29/24 documented as of this encounter
--- OUTSIDE RECORDS SUMMARY | 2024-09-13 06:53 | XMS_ITS | Encounter Summary ---
Author Organization [facility] Address [address] [place] [address] Care Team Providers Care Sports Equipment Racker Name Role Phone Brett Velásquez MD Primary Care Provider Reilly Stewart MD, PHD Unavailable UnaBrett Davis MD Primary Care Provider Wayne Dickson Primary Care Provider Dafne Hilton MD Unavailable [phone] Desi Swenson NP Unavailable [phone] Reason for Visit * Reason Onset Date Comments Prior Authorization 04/24/2021 Encounter Details Date Type Department Care Team Description 04/24/2021 Telephone [facility] [address] [address] Hermes Alegre MD [address] [phone] Prior Authorization Social History Tobacco Use Types [...] Thomson - 04/24/2021 1:17 PM EDT Updated [facility] Specialty Phone #. * Telephone Encounter - Tanja Thomson - 04/24/2021 10:58 AM EDT Received incoming call from David Moore/ [facility] Specialty [facility], requesting a Retro-active PA. for pt's Euflexxa from Date of Service 02/04/21. Please fax to [phone]. Any questions please call [phone]. documented in this encounter Plan of Treatment Upcoming Encounters Date Type Specialty Care Team Description 04/29/2027 Senior Technical Trainer Report Abstract, Provider documented as of this encounter Visit Diagnoses Not on filedocumented in this encounter Care Teams Sports Equipment Racker Relationship Specialty Start Date End Date Brett Velásquez MD PCP - General Internal Medicine 04/21/16 01/25/22 Brett Velásquez MD PCP - General Internal Medicine 01/26/22 02/15/22 Wayne Jaimes [address] [place] [address] PCP - General Internal Medicine 02/16/22 Reilly Baker MD, PHD Surgeon Neurosurgery 01/20/22 Dafne Hilton MD [address] [place] [address] Specialist Cardiology 10/13/22 Desi Swenson NP [address] [place] [address] Cardiology 02/29/24 documented as of this encounter
--- OUTSIDE RECORDS SUMMARY | 2024-09-13 06:53 | XMS_ITS ---
Author Organization [facility] Address [address] [facility] [address] [place] [address] Care Team Providers Care Shotblast Equipment Operator Name Role Phone Wayne Jaimes MD Primary Care Provider DESI Burks Unavailable [phone] Allergies No Known Allergies REASON FOR VISIT [...] Active Diclofenac Sodium 1 % as directed Registered Nurse Nursery ally place 1 g onto the skin [...] N/A Encounters Encounter Location Date Provider Diagnosis [facility] [address] [address] 07/10/2024 DESI LI Onychomycosis B35.1 ; Calcium [...] Date Notes Efinaconazole 10 % 1 application Registered Nurse Nursery ally Once a day for 90 days [...] PM, [address] [facility] [address], [place], [address], Medications Administered Medication Instructions Date of Administration Dosage Notes dexAMETHasone Sod Phosphate PF 07/10/2024 0.5 m L Kenalog 07/10/2024 0.5 mL Progress Notes * Mckinley LEWISOB:1955 ([age] yo M)Acc No.[id number]:07/10/2024 Progress Note Patient:Laina SANDOVAL Provider:?Desi Li DPM :1955???Age:68 Y???Sex:Male Nael e:07/10/2024 Address:[address] [place], [place] [phone] Pcp:Wayne Jaimes MD Subjective: * Chief Complaints: [...] bilaterally, protective sensation intact 10/10 with 5.07 [place] Alisha bilaterally, vibratory sensation with tuning fork [...] RT J1100 INJ DEXAMETHASONE SODIM PHOSHATE 1 [id number] INJ TRIAMCINOLONE ACETONIDE 10 MG * Follow Up:?3 Months * Billing Information: * Visit Code:? 12102 Office Visit, Est Pt., Level 4. Modifiers: 25 * Procedure Codes:? DRAIN/INJECT, SMALL JOINT/BURSA. Modifiers: RT J1100 INJ DEXAMETHASONE SODIM PHOSHATE 1 MG. J3301 INJ TRIAMCINOLONE ACETONIDE 10 MG. * Sign off status: Completed true * Provider:?Desi Li DPM Date:? 07/10/2024 Generated for Tatiana lema/Nilsa/Saraitting on:?09/13/2024 06:52 AM EST History and Physical Notes * [...] bilaterally, protective sensation intact 10/10 with 5.07 [place] Alisha bilaterally, vibratory sensation with tuning fork [...]
--- OUTSIDE RECORDS SUMMARY | 2024-09-13 06:53 | XMS_ITS | Encounter Summary ---
Author Organization [facility] Address [address] [place] [address] Care Team Providers Care Delivery Specialist Name Role Phone Brett Velásquez MD Primary Care Provider Reilly Stewart MD, PHD Unavailable UnaBrett Davis MD Primary Care Provider Wayne Dickson Primary Care Provider [phone] Dafne Hilton MD Unavailable [phone] Desi Swenson NP Unavailable [phone] Reason for Visit * Reason Onset Date Comments Prior Authorization 06/17/2021 Encounter Details Date Type Department Care Team Description 06/17/2021 Telephone [facility] [address] [place] [phone] Joo Meadows MD Prior Authorization Social [...] - 06/17/2021 8:42 AM EST Sendy from [facility] called again to check on status of prior auth for Euflexxa injections. I told her that Samara sent a request to [employer] and is waiting on response. Sendy asked that I let Samara know she called to check on it and to please let her know when we receive approval. She can be reached at [phone] ext [phone]. documented in this encounter Plan of Treatment Upcoming Encounters Date Type Specialty Care Team Description 04/29/2027 Mother Helper Report Abstract, Provider documented as of this encounter Visit Diagnoses Not on filedocumented in this encounter Care Teams Delivery Specialist Relationship Specialty Start Date End Date Brett Velásquez MD PCP - General Internal Medicine 04/21/16 01/25/22 Brett Velásquez MD PCP - General Internal Medicine 01/26/22 02/15/22 Wayne Jaimes [address] [place] [address] PCP - General Internal Medicine 02/16/22 Reilly Baker MD, PHD Surgeon Neurosurgery 01/20/22 Dafne Hilton MD [address] [place] [address] Specialist Cardiology 10/13/22 Desi Swenson NP [address] [place] [address] Cardiology 02/29/24 documented as of this encounter
--- OUTSIDE RECORDS SUMMARY | 2024-09-13 06:53 | XMS_ITS | Encounter Summary ---
Author Organization [facility] Address [address] [place] [address] Care Team Providers Care Sweet Dough Mixer Name Role Phone Reilly Baker MD, PHD Unavailable Unava ilable Wayne Jaimes Primary Care Provider [phone] Dafne Hilton MD Unavailable [phone] Desi Swenson NP Unavailable [phone] Encounter Details Date Type Department Care Team Description 05/11/2023 Industrial Yard Brake Coupler Report Medical Records [address] [place] [address] Abstract, Provider Social History Tobacco Use Types [...] Date Type Specialty Care Team Description 04/29/2027 Industrial Yard Brake Coupler Report Abstract, Provider documented as of this encounter Visit Diagnoses Not on filedocumented in this encounter Care Teams Sweet Dough Mixer Relationship Specialty Start Date End Date Wayne Jaimes [address] [place] [address] PCP - General Internal Medicine 02/16/22 Reilly Baker MD, PHD Surgeon Neurosurgery 01/20/22 Dafne Hilton MD [address] [place], [place] [phone] Specialist Cardiology 10/13/22 Desi Swenson NP [address] [place] [address] Cardiology 02/29/24 documented as of this encounter
--- OUTSIDE RECORDS SUMMARY | 2024-09-13 06:53 | XMS_ITS | Encounter Summary ---
Author Organization [facility] Address [address] [place] [address] Care Team Providers Care Client Onboarding Analyst Name Role Phone Brett Velásquez MD Primary Care Provider Keisha Luna MD Primary Care Provider [phone] Brett Velásquez MD Primary Care Provider Reilly Stewart MD, PHD Unavailable Unava ilable Brett Velásquez MD Primary Care Provider Wayne Dickson Primary Care Provider [phone] Dafne Hilton MD Unavailable [phone] Desi Swenson NP Unavailable [phone] Encounter Details Date Type Department Care Team Description 06/06/2014 Technology Program Manager Report Medical Records [address] [place] [address] Rehab., [place] Social History Tobacco Use Types Packs/Day Years [...] Date Type Specialty Care Team Description 04/29/2027 Technology Program Manager Report Abstract, Provider documented as of this encounter Visit Diagnoses Not on filedocumented in this encounter Care Teams Client Onboarding Analyst Relationship Specialty Start Date End Date Brett Velásquez MD PCP - General Internal Medicine 10/29/11 06/19/15 Keisha Chavez MD [address] [place] [address] PCP - General Internal Medicine 06/20/15 04/20/16 Brett Velásquez MD PCP - General Internal Medicine 04/21/16 01/25/22 Brett Velásquez MD PCP - General Internal Medicine 01/26/22 02/15/22 Wayne Jaimes [address] [place] [address] PCP - General Internal Medicine 02/16/22 Reilly Baker MD, PHD [address] [place] [address] Surgeon Neurosurgery 01/20/22 Dafne Hilton MD [address] [place] [address] Specialist Cardiology 10/13/22 Desi Swenson NP [address] [place] [address] Cardiology 02/29/24 documented as of this encounter
--- OUTSIDE RECORDS SUMMARY | 2024-09-13 06:53 | XMS_ITS | Encounter Summary ---
Author Organization [facility] Address [address] [place] [address] Care Team Providers Care Policewoman Name Role Phone Brett Velásquez MD Primary Care Provider Keisha Luna MD Primary Care Provider [phone] Brett Velásquez MD Primary Care Provider Reilly Stewart MD, PHD Unavailable Unava ilable Brett Velásquez MD Primary Care Provider Wayne Dickson Primary Care Provider [phone] Dafne Hilton MD Unavailable [phone] Desi Swenson NP Unavailable [phone] Encounter Details Date Type Department Care Team Description 05/25/2013 Production Generalist Report Medical Records [address] [place] [address] Aleksandar Huggins MD Social History Tobacco Use [...] Date Type Specialty Care Team Description 04/29/2027 Production Generalist Report Abstract, Provider documented as of this encounter Visit Diagnoses Not on filedocumented in this encounter Care Teams Policewoman Relationship Specialty Start Date End Date Brett Velásquez MD PCP - General Internal Medicine 10/29/11 06/19/15 Keisha Chavez MD [address] [place] [address] PCP - General Internal Medicine 06/20/15 04/20/16 Brett Velásquez MD PCP - General Internal Medicine 04/21/16 01/25/22 Brett Velásquez MD PCP - General Internal Medicine 01/26/22 02/15/22 Wayne Jaimes [address] [place] [address] PCP - General Internal Medicine 02/16/22 Reilly Baker MD, PHD [address] [place] [address] Surgeon Neurosurgery 01/20/22 Dafne Hilton MD [address] [place] [address] Specialist Cardiology 10/13/22 Desi Swenson NP [address] [place] [address] Cardiology 02/29/24 documented as of this encounter
--- OUTSIDE RECORDS SUMMARY | 2024-09-13 06:53 | XMS_ITS | Encounter Summary ---
Author Organization [facility] Address [address] [place] [address] Care Team Providers Care Petroleum Blending Plant Operator Name Role Phone Brett Velásquez MD Primary Care Provider Reilly Stewart MD, PHD Unavailable Unava Brett Villegas MD Primary Care Provider Wayne Dickson Primary Care Provider Dafne Hilton MD Unavailable [phone] Desi Swenson NP Unavailable [phone] Encounter Details Date Type Department Care Team Description 01/20/2021 Senior Cytogenetics Laboratory Director Report Medical Records [address] [place] [address] Desi Li DPM Social History Tobacco Use [...] Type Specialty Care Team Description 04/29/2027 Senior Cytogenetics Laboratory Director Report Abstract, Provider documented as of this encounter Visit Diagnoses Not on filedocumented in this encounter Care Teams Petroleum Blending Plant Operator Relationship Specialty Start Date End Date Brett Velásquez MD PCP - General Internal Medicine 04/21/16 01/25/22 Brett Velásquez MD PCP - General Internal Medicine 01/26/22 02/15/22 Wayne Jaimes [address] [place] [address] PCP - General Internal Medicine 02/16/22 Reilly Baker MD, PHD Surgeon Neurosurgery 01/20/22 Dafne Hilton MD [address] [place] [address] Specialist Cardiology 10/13/22 Desi Swenson NP [address] [place] [address] Cardiology 02/29/24 documented as of this encounter
--- OUTSIDE RECORDS SUMMARY | 2024-09-13 06:53 | XMS_ITS | Encounter Summary ---
Author Organization [facility] Address [address] [place] [address] Care Team Providers Care Psychological Examiner Name Role Phone Reilly Baker MD, PHD Unavailable Unava ilable Wayne Jaimes Primary Care Provider [phone] Dafne Hilton MD Unavailable [phone] Desi Swenson NP Unavailable Encounter Details Date Type Department Care Team Description 01/25/2024 SCAN Medical Records [address] [place] [address] Desi Swenson, ILDA [address] [facility] [place] [address] Social History Tobacco Use Types Packs/Day Years [...] Date Type Specialty Care Team Description 04/29/2027 Advisor Consultant Report Abstract, Provider documented as of this encounter Visit Diagnoses Not on filedocumented in this encounter Care Teams Psychological Examiner Relationship Specialty Start Date End Date Wayne Jaimes [address] [place] [address] PCP - General Internal Medicine 02/16/22 Reilly Baker MD, PHD Surgeon Neurosurgery 01/20/22 Dafne Hilton MD [address] [place] [address] Specialist Cardiology 10/13/22 Desi Swenson NP [address] [place], [place] [id number] Cardiology 02/29/24 documented as of this encounter
--- OUTSIDE RECORDS SUMMARY | 2024-09-13 06:53 | XMS_ITS | Encounter Summary ---
Author Organization [facility] Address [address] [place] [address] Care Team Providers Care Bug Trimmer Name Role Phone Reilly Baker MD, PHD Unavailable Unava ilable Wayne Jaimes Primary Care Provider [phone] Dafne Hilton MD Unavailable [phone] Desi Swenson NP Unavailable [phone] Encounter Details Date Type Department Care Team Description 06/07/2023 Hospital Medical Records [address] [place] [address] Vladislav Antunez DO Social History Tobacco Use [...] Date Type Specialty Care Team Description 04/29/2027 Parts Counterperson Report Abstract, Provider documented as of this encounter Visit Diagnoses Not on filedocumented in this encounter Care Teams Bug Trimmer Relationship Specialty Start Date End Date Wayne Jaimes [address] [place] [address] PCP - General Internal Medicine 02/16/22 Reilly Baker MD, PHD Surgeon Neurosurgery 01/20/22 Dafne Hilton MD [address] [place] [address] Specialist Cardiology 10/13/22 Desi Swenson, ILDA [address] [place] [address] Cardiology 02/29/24 documented as of this encounter
--- OUTSIDE RECORDS SUMMARY | 2024-09-13 06:53 | XMS_ITS | Encounter Summary ---
Author Organization [facility] Address [address] [place] [address] Care Team Providers Care Bottler Name Role Phone Reilly Baker MD, PHD Unavailable Unava ilWayne Osborne Primary Care Provider [phone] Dafne Hilton MD Unavailable [phone] Desi Swenson NP Unavailable [phone] Encounter Details Date Type Department Care Team Description 05/06/2023 Orders Only Medical Records [address] [place] [address] Ankita Mckeon NP Social History Tobacco Use [...] Date Type Specialty Care Team Description 04/29/2027 Net Mobile Developer Report Abstract, Provider documented as of this encounter Procedures Procedure Name Priority Date/Time Associated Diagnosis Comments OUTSIDE LAB Routine 04/05/2023 documented in this encounter Results * OUTSIDE LAB (04/05/2023) Ankita Mckeon NP LAB documented in this encounter Visit Diagnoses Not on filedocumented in this encounter Care Teams Bottler Relationship Specialty Start Date End Date Wayne Jaimes [address] [place] [address] PCP - General Internal Medicine 02/16/22 Reilly Baker MD, PHD Surgeon Neurosurgery 01/20/22 Dafne Hilton MD [address] [place] [address] Specialist Cardiology 10/13/22 Desi Swenson NP [address] [place] [address] Cardiology 02/29/24 documented as of this encounter
--- OUTSIDE RECORDS SUMMARY | 2024-09-13 06:53 | XMS_ITS | Encounter Summary ---
Author Organization [facility] Address [address] [place] [address] Care Team Providers Care Banking And Finance Instructor Name Role Phone Reilly Baker MD, PHD Unavailable Unava ilable Wayne Jaimes Primary Care Provider [phone] Dafne Hilton MD Unavailable [phone] Desi Swenson NP Unavailable [phone] Encounter Details Date Type Department Care Team Description 08/25/2023 [facility] Records [facility] [address] [facility] [address] [place] [address] Wen Herrmann NP [address] [facility] [place] [address] Social History Tobacco Use Types Packs/Day Years [...] Date Type Specialty Care Team Description 04/29/2027 Circuitry Negative Inspector Report Abstract, Provider documented as of this encounter Visit Diagnoses Not on filedocumented in this encounter Care Teams Banking And Finance Instructor Relationship Specialty Start Date End Date Wayne Jaimes [address] [place], [place] [address] PCP - General Internal Medicine 02/16/22 Reilly Baker MD, PHD Surgeon Neurosurgery 01/20/22 Dafne Hilton MD [address] [place], [place] [address] Specialist Cardiology 10/13/22 Desi Swenson NP [address] [place] [address] Cardiology 02/29/24 documented as of this encounter
--- OUTSIDE RECORDS SUMMARY | 2024-09-13 06:53 | XMS_ITS | Encounter Summary ---
Author Organization [facility] Address [address] [place] [address] Care Team Providers Care Technical Project Lead Name Role Phone Brett Velásquez MD Primary Care Provider Reilly Stewart MD, PHD Unavailable Unava ilBrett Bailon MD Primary Care Provider Wayne Dickson Primary Care Provider Dafne Hilton MD Unavailable [phone] Desi Swenson NP Unavailable [phone] Encounter Details Date Type Department Care Team Description 01/23/2019 Release of Information Medical Records [address] [place] [address] Abstract, Provider Social History Tobacco Use Types [...] Date Type Specialty Care Team Description 04/29/2027 Paint Roller Winder Report Abstract, Provider documented as of this encounter Visit Diagnoses Not on filedocumented in this encounter Care Teams Technical Project Lead Relationship Specialty Start Date End Date Brett Velásquez MD PCP - General Internal Medicine 04/21/16 01/25/22 Brett Velásquez MD PCP - General Internal Medicine 01/26/22 02/15/22 Wayne Jaimes [address] [place] [address] PCP - General Internal Medicine 02/16/22 Reilly Baker MD, PHD Surgeon Neurosurgery 01/20/22 Dafne Hilton MD [address] [place] [address] Specialist Cardiology 10/13/22 Desi Swenson NP [address] [place] [address] Cardiology 02/29/24 documented as of this encounter
--- OUTSIDE RECORDS SUMMARY | 2024-09-13 06:53 | XMS_ITS | Encounter Summary ---
Author Organization [facility] Address [address] [place] [address] Care Team Providers Care Blister Packing Machine Tender Name Role Phone Brett Velásquez MD Primary Care Provider Keisha Luna MD Primary Care Provider [phone] Brett Velásquez MD Primary Care Provider Reilly Stewart MD, PHD Unavailable Unava ilable Brett Velásquez MD Primary Care Provider Wayne Dickson Primary Care Provider [phone] Dafne Hilton MD Unavailable [phone] Desi Swenson NP Unavailable [phone] Encounter Details Date Type Department Care Team Description 05/30/2013 Release of Information Medical Records [address] [place] [address] Abstract, Provider Social History Tobacco Use Types [...] Date Type Specialty Care Team Description 04/29/2027 Cleaner Touch Up Worker Report Abstract, Provider documented as of this encounter Visit Diagnoses Not on filedocumented in this encounter Care Teams Blister Packing Machine Tender Relationship Specialty Start Date End Date Brett Velásquez MD PCP - General Internal Medicine 10/29/11 06/19/15 Keisha Chavez MD [address] [place] [address] PCP - General Internal Medicine 06/20/15 04/20/16 Brett Velásquez MD PCP - General Internal Medicine 04/21/16 01/25/22 Brett Velásquez MD PCP - General Internal Medicine 01/26/22 02/15/22 Wayne Jaimes [address] [place], [place] [address] PCP - General Internal Medicine 02/16/22 Reilly Baker MD, PHD [address] [place] [address] Surgeon Neurosurgery 01/20/22 Dafne Hilton MD [address] [place] [address] Specialist Cardiology 10/13/22 Desi Sewnson NP [address] [place] [address] Cardiology 02/29/24 documented as of this encounter
--- OUTSIDE RECORDS SUMMARY | 2024-09-13 06:53 | XMS_ITS | Encounter Summary ---
Author Organization [facility] Address [address] [place] [address] Care Team Providers Care Finance Clerk Name Role Phone Brett Velásquez MD Primary Care Provider Reilly Stewart MD, PHD Unavailable Unava Brett Villegas MD Primary Care Provider Wayne Dickson Primary Care Provider [phone] Dafne Hilton MD Unavailable [phone] Desi Swenson NP Unavailable [phone] Encounter Details Date Type Department Care Team Description 04/28/2021 Blast Furnace Operator Report Medical Records [address] [place] [address] Bolivar Palmer MD Social History Tobacco Use [...] Date Type Specialty Care Team Description 04/29/2027 Blast Furnace Operator Report Abstract, Provider documented as of this encounter Visit Diagnoses Not on filedocumented in this encounter Care Teams Finance Clerk Relationship Specialty Start Date End Date Brett Velásquez MD PCP - General Internal Medicine 04/21/16 01/25/22 Brett Velásquez MD PCP - General Internal Medicine 01/26/22 02/15/22 Wayne Jaimes [address] [place] [address] PCP - General Internal Medicine 02/16/22 Reilly Baker MD, PHD Surgeon Neurosurgery 01/20/22 Dafne Hilton MD [address] [place] [address] Specialist Cardiology 10/13/22 Desi Swenson NP [address] [place] [address] Cardiology 02/29/24 documented as of this encounter
--- OUTSIDE RECORDS SUMMARY | 2024-09-13 06:53 | XMS_ITS | Encounter Summary ---
Author Organization [facility] Address [address] [place] [address] Care Team Providers Care Classroom Monitor Name Role Phone Reilly Baker MD, PHD Unavailable Unava ilWayne Osborne Primary Care Provider Dafne Hilton MD Unavailable [phone] Desi Swenson NP Unavailable [phone] Reason for Visit * Reason Onset Date Comments APPOINTMENT 08/19/2023 Encounter Details Date Type Department Care Team Description 08/19/2023 Telephone [facility] [address] [facility] [address] [place] [address] Wen Herrmann NP [address] [facility] [place] [address] APPOINTMENT Social History Tobacco Use Types Packs/Day Years [...] * Telephone Encounter - Tanja Thomson - 08/25/2023 4:08 PM EST Outreach made to patient to schedule his 3 Euflexxa appts with Maryam. Thanks. * Telephone Encounter - Faiza Wilson - 08/20/2023 1:35 PM EST Eve from [facility] called back and informed me that the patient had three requests open in the prior auth portal so she cancelled two as duplicates. Eve also added the J-code [id number] to therequest. * Telephone Encounter - Ena Randle - 08/19/2023 1:10 PM EST Eve Shi called in regards to a PA for pt Please call her back to discuss [phone] documented in this encounter Plan of Treatment Upcoming Encounters Date Type Specialty Care Team Description 04/29/2027 Microelectronics Assembler Report Abstract, Provider documented as of this encounter Visit Diagnoses Not on filedocumented in this encounter Care Teams Classroom Monitor Relationship Specialty Start Date End Date Wayne Jaimes [address] [place] [address] PCP - General Internal Medicine 02/16/22 Reilly Baker MD, PHD Surgeon Neurosurgery 01/20/22 Dafne Hilton MD [address] [place] [address] Specialist Cardiology 10/13/22 Desi Swenson NP [address] [place] [address] Cardiology 02/29/24 documented as of this encounter
--- OUTSIDE RECORDS SUMMARY | 2024-09-13 06:53 | XMS_ITS | Clinical Summary ---
Author Organization [facility] Address [address] [place] [address] Care Team Providers Care Van Owner Operator Name Role Phone Brett Velásquez MD Primary Care Provider [phone] Allergies No known active allergies Medications Medication [...] age to complete this topic Care Teams Van Owner Operator Relationship Specialty Start Date End Date Brett Velásquez MD PCP - General Internal Medicine 10/20/17
--- OUTSIDE RECORDS SUMMARY | 2024-09-13 06:53 | XMS_ITS | Encounter Summary ---
Author Organization [facility] Address [address] [place] [address] Care Team Providers Care Hop Separator Name Role Phone Brett Velásquez MD Primary Care Provider Keisha Luna MD Primary Care Provider [phone] Brett Velásquez MD Primary Care Provider Reilly Stewart MD, PHD Unavailable Unava ilable Brett Velásquez MD Primary Care Provider Wayne Dickson Primary Care Provider [phone] Dafne Hilton MD Unavailable [phone] Desi Swenson NP Unavailable [phone] Encounter Details Date Type Department Care Team Description 06/18/2014 Swimming Professor Report Medical Records [address] [place] [address] lAeksandar Huggins MD Social History Tobacco Use Types [...] Date Type Specialty Care Team Description 04/29/2027 Swimming Professor Report Abstract, Provider documented as of this encounter Visit Diagnoses Not on filedocumented in this encounter Care Teams Hop Separator Relationship Specialty Start Date End Date Brett Velásquez MD PCP - General Internal Medicine 10/29/11 06/19/15 Keisha Chavez MD [address] [place] [address] PCP - General Internal Medicine 06/20/15 04/20/16 Brett Velásquez MD PCP - General Internal Medicine 04/21/16 01/25/22 Brett Velásquez MD PCP - General Internal Medicine 01/26/22 02/15/22 Wayne Jaimes [address] [place] [address] PCP - General Internal Medicine 02/16/22 Reilly Baker MD, PHD [address] [place] [address] Surgeon Neurosurgery 01/20/22 Dafne Hilton MD [address] [place] [address] Specialist Cardiology 10/13/22 Desi Swenson NP [address] [place] [address] Cardiology 02/29/24 documented as of this encounter
--- OUTSIDE RECORDS SUMMARY | 2024-09-13 06:53 | XMS_ITS | Encounter Summary ---
Author Organization [facility] Address [address] [place] [address] Care Team Providers Care Web Press Operator Helper Offset Name Role Phone Reilly Baker MD, PHD Unavailable Unava ilable Wayne Jaimes Primary Care Provider [phone] Dafne Hilton MD Unavailable [phone] Desi Swenson NP Unavailable Encounter Details Date Type Department Care Team Description 07/30/2023 [facility] [address] [facility] [address] [place] [phone] Ena Whipple PA-C [address] [address] Social History Tobacco Use Types Packs/Day Years [...] Date Type Specialty Care Team Description 04/29/2027 Explosive Ordnance Disposal Manager Report Abstract, Provider documented as of this encounter Visit Diagnoses Not on filedocumented in this encounter Care Teams Web Press Operator Helper Offset Relationship Specialty Start Date End Date Wayne Jaimes [address] [place] [address] PCP - General Internal Medicine 02/16/22 Reilly Baker MD, PHD Surgeon Neurosurgery 01/20/22 Dafne Hilton MD [address] [place] [address] Specialist Cardiology 10/13/22 Desi Swenson NP [address] [place] [address] Cardiology 02/29/24 documented as of this encounter
--- OUTSIDE RECORDS SUMMARY | 2024-09-13 06:53 | XMS_ITS | Encounter Summary ---
Author Organization [facility] Address [address] [place] [address] Care Team Providers Care Sorting Supervisor Name Role Phone Reilly Baker MD, PHD Unavailable Unava ilWayne Osborne Primary Care Provider [phone] Dafne Hilton MD Unavailable [phone] Desi Swenson NP Unavailable [phone] Encounter Details Date Type Department Care Team Description 09/30/2023 Pt. Non Urgent Medical Question Gastroenterology - Capac [address] [facility] [address] [place] [phone] Kevin Oliva PA-C [address] [address] Social History Tobacco Use Types Packs/Day Years [...] Date Type Specialty Care Team Description 04/29/2027 Rfid Systems Architect Report Abstract, Provider documented as of this encounter Visit Diagnoses Not on filedocumented in this encounter Care Teams Sorting Supervisor Relationship Specialty Start Date End Date Wayne Jaimes [address] [place] [address] PCP - General Internal Medicine 02/16/22 Reilly Baker MD, PHD Surgeon Neurosurgery 01/20/22 Dafne Hilton MD [address] [place] [address] Specialist Cardiology 10/13/22 Desi Swenson NP [address] [place] [address] Cardiology 02/29/24 documented as of this encounter
--- OUTSIDE RECORDS SUMMARY | 2024-09-13 06:53 | XMS_ITS | Encounter Summary ---
Author Organization [facility] Address [address] [place] [address] Care Team Providers Care Poker Dealer Name Role Phone Brett Velásquez MD Primary Care Provider Reilly Stewart MD, PHD Unavailable Unava Bertt Villegas MD Primary Care Provider Wayne Dickson Primary Care Provider [phone] Dafne Hilton MD Unavailable [phone] Desi Swenson NP Unavailable [phone] Encounter Details Date Type Department Care Team Description 07/20/2019 [facility] Medical Records [address] [place] [address] Lalit Salamanca MD [address] [place] [address] Social History Tobacco Use Types Packs/Day Years [...] Date Type Specialty Care Team Description 04/29/2027 Awake Overnight Counselor Report Abstract, Provider documented as of this encounter Visit Diagnoses Not on filedocumented in this encounter Care Teams Poker Dealer Relationship Specialty Start Date End Date Brett Velásquez MD PCP - General Internal Medicine 04/21/16 01/25/22 Brett Velásquez MD PCP - General Internal Medicine 01/26/22 02/15/22 Wayne Jaimes [address] [place] [address] PCP - General Internal Medicine 02/16/22 Reilly Baker MD, PHD Surgeon Neurosurgery 01/20/22 Dafne Hilton MD [address] [place] [address] Specialist Cardiology 10/13/22 Desi Swenson NP [address] [place] [address] Cardiology 02/29/24 documented as of this encounter
--- OUTSIDE RECORDS SUMMARY | 2024-09-13 06:53 | XMS_ITS | Encounter Summary ---
Author Organization [facility] Address [address] [place] [address] Care Team Providers Care Sas Programmer Analyst Name Role Phone Brett Velásquez MD Primary Care Provider Reilly Stewart MD, PHD Unavailable Unava Brett Villegas MD Primary Care Provider Wayne Dickson Primary Care Provider [phone] Dafne Hilton MD Unavailable [phone] Desi Swenson NP Unavailable [phone] Encounter Details Date Type Department Care Team Description 04/22/2021 Sebd Teacher Report Medical Records [address] [place] [address] Desi Li DPM Social History Tobacco Use [...] Date Type Specialty Care Team Description 04/29/2027 Sebd Teacher Report Abstract, Provider documented as of this encounter Visit Diagnoses Not on filedocumented in this encounter Care Teams Sas Programmer Analyst Relationship Specialty Start Date End Date Brett Velásquez MD PCP - General Internal Medicine 04/21/16 01/25/22 Brett Velásquez MD PCP - General Internal Medicine 01/26/22 02/15/22 Wayne Jaimes [address] [place] [address] PCP - General Internal Medicine 02/16/22 Reilly Baker MD, PHD Surgeon Neurosurgery 01/20/22 Dafne Hilton MD [address] [place] [address] Specialist Cardiology 10/13/22 Desi Swenson NP [address] [place] [address] Cardiology 02/29/24 documented as of this encounter
--- OUTSIDE RECORDS SUMMARY | 2024-09-13 06:53 | XMS_ITS | Encounter Summary ---
Author Organization [facility] Address [address] [place] [address] Care Team Providers Care Rug Sample Beveler Name Role Phone Reilly Baker MD, PHD Unavailable Unava ilWayne Osborne Primary Care Provider Dafne Hilton MD Unavailable [phone] Desi Swenson NP Unavailable [phone] Encounter Details Date Type Department Care Team Description 01/18/2024 Telephone Gastroenterology - [place] [address] [facility] [address] [place] [address] Kevin Oliva PA-C [address] [facility] [address] [place] [address] Social History Tobacco Use Types Packs/Day Years [...] 01/31/2024 3:25 PM EDT Per Prisca at [facility], [facility] is not contracted with patient's insurance either, [facility] [employer]. Per abdias Brown to book at [facility]. Called Central Registration at [phone] but they want the order faxed with demo sheet. Faxed to [phone]. * Telephone Encounter - Alexandria John - 01/31/2024 3:08 PM EDT Patient came in office stating [facility] is not accepting patient insurance. Please schedule appointment at [facility] for Barium Swallow and contact patient with information. * Telephone Encounter - Cristina Jimenez - 01/18/2024 8:21 AM EDT Booked Barium Swallow at [address] [place] [address] for patient on January 31 at 8am w/ arrival at 7:45am. Called the patient to notify of appointment details, including nothing to eat/drink after midnight. I also mailed an appointment letter. Order has been faxed to [phone]. documented in this encounter Plan of Treatment Upcoming Encounters Date Type Specialty Care Team Description 04/29/2027 Consulting Utility Forester Report Abstract, Provider documented as of this encounter Visit Diagnoses Not on filedocumented in this encounter Care Teams Rug Sample Beveler Relationship Specialty Start Date End Date Wayne JaimesUsama [address] [place] [address] PCP - General Internal Medicine 02/16/22 Reilly Baker MD, PHD Surgeon Neurosurgery 01/20/22 Dafne Hilton MD [address] [place] [address] Specialist Cardiology 10/13/22 Desi Swenson NP [address] [place] [address] Cardiology 02/29/24 documented as of this encounter
--- OUTSIDE RECORDS SUMMARY | 2024-09-13 06:53 | XMS_ITS | Encounter Summary ---
Author Organization [facility] Address [address] [place] [address] Care Team Providers Care Client Support Representative Name Role Phone Reilly Baker MD, PHD Unavailable Unava ilable Wayne Jaimes Primary Care Provider [phone] Dafne Hilton MD Unavailable [phone] Desi Swenson NP Unavailable [phone] Encounter Details Date Type Department Care Team Description 02/02/2023 Quality System Manager Report Medical Records [address] [place] [address] Sonny Abrams PA-C Social History Tobacco Use [...] Type Specialty Care Team Description 04/29/2027 Quality System Manager Report Abstract, Provider documented as of this encounter Visit Diagnoses Not on filedocumented in this encounter Care Teams Client Support Representative Relationship Specialty Start Date End Date Wayne Jaimes [address] [place], [place] [id number] PCP - General Internal Medicine 02/16/22 Reilly Baker MD, PHD Surgeon Neurosurgery 01/20/22 Dafne Hilton MD [address] [place] [address] Specialist Cardiology 10/13/22 Desi Swenson NP [address] [place] [address] Cardiology 02/29/24 documented as of this encounter
--- OUTSIDE RECORDS SUMMARY | 2024-09-13 06:53 | XMS_ITS | Encounter Summary ---
Author Organization [facility] Address [address] [place] [address] Care Team Providers Care Image Consultant Name Role Phone Reilly Baker MD, PHD Unavailable Unava ilable Wayne Jaimes Primary Care Provider [phone] Dafne Hilton MD Unavailable [phone] Desi Swenson NP Unavailable [phone] Encounter Details Date Type Department Care Team Description 05/05/2023 Die Technician Report Medical Records [address] [place] [address] Aleksandar Huggins MD Social History Tobacco Use [...] Type Specialty Care Team Description 04/29/2027 Die Technician Report Abstract, Provider documented as of this encounter Visit Diagnoses Not on filedocumented in this encounter Care Teams Image Consultant Relationship Specialty Start Date End Date Wayne Jaimes [address] [place], [place] [id number] PCP - General Internal Medicine 02/16/22 Reilly Baker MD, PHD Surgeon Neurosurgery 01/20/22 Dafne Hilton MD [address] [place] [address] Specialist Cardiology 10/13/22 Desi Swenson NP [address] [place], [place] [address] Cardiology 02/29/24 documented as of this encounter
--- OUTSIDE RECORDS SUMMARY | 2024-09-13 06:53 | XMS_ITS | Encounter Summary ---
Author Organization [facility] Address [address] [place] [address] Care Team Providers Care Supervisor Roving Name Role Phone Reilly Baker MD, PHD Unavailable Unava ilable Wayne Jaimes Primary Care Provider [phone] Dafne Hilton MD Unavailable [phone] Desi Swenson NP Unavailable [phone] Encounter Details Date Type Department Care Team Description 08/17/2023 Chief Architect Report Medical Records [address] Social History Tobacco Use Types Packs/Day [...] Date Type Specialty Care Team Description 04/29/2027 Chief Architect Report Abstract, Provider documented as of this encounter Visit Diagnoses Not on filedocumented in this encounter Care Teams Supervisor Roving Relationship Specialty Start Date End Date Wayne Jaimes [address] [place], [place] [id number] PCP - General Internal Medicine 02/16/22 Reilly Baker MD, PHD Surgeon Neurosurgery 01/20/22 Dafne Hilton MD [address] [place] [address] Specialist Cardiology 10/13/22 Desi Swenson, ILDA [address] [place] [address] Cardiology 02/29/24 documented as of this encounter
--- OUTSIDE RECORDS SUMMARY | 2024-09-13 06:53 | XMS_ITS | Encounter Summary ---
Author Organization [facility] Address [address] [place] [address] Care Team Providers Care Circulation Director Name Role Phone Brett Velásquez MD Primary Care Provider Reilly Stewart MD, PHD Unavailable Unava ilBrett Bailon MD Primary Care Provider Wayne Dickson Primary Care Provider [phone] Dafne Hilton MD Unavailable [phone] Desi Swenson NP Unavailable [phone] Encounter Details Date Type Department Care Team Description 09/27/2018 Plant Maintenance Engineer Report Medical Records [address] [place] [address] Vipin Cowart Social History Tobacco Use Types [...] Date Type Specialty Care Team Description 04/29/2027 Plant Maintenance Engineer Report Abstract, Provider documented as of this encounter Visit Diagnoses Not on filedocumented in this encounter Care Teams Circulation Director Relationship Specialty Start Date End Date Brett Velásquez MD PCP - General Internal Medicine 04/21/16 01/25/22 Brett Velásquez MD PCP - General Internal Medicine 01/26/22 02/15/22 Wayne Jaimes [address] [place] [address] PCP - General Internal Medicine 02/16/22 Reilly Baker MD, PHD Surgeon Neurosurgery 01/20/22 Dafne Hilton MD [address] [place] [address] Specialist Cardiology 10/13/22 Desi Swenson NP [address] [place] [address] Cardiology 02/29/24 documented as of this encounter
--- OUTSIDE RECORDS SUMMARY | 2024-09-13 06:53 | XMS_ITS | Encounter Summary ---
Author Organization [facility] Address [address] [place] [address] Care Team Providers Care Division Field Inspector Name Role Phone Brett Velásquez MD Primary Care Provider Reilly Stewart MD, PHD Unavailable Unava Brett Villegas MD Primary Care Provider Wayne Dickson Primary Care Provider Dafne Hilton MD Unavailable [phone] Desi Swenson NP Unavailable [phone] Encounter Details Date Type Department Care Team Description 04/14/2021 Rocket Motor Mechanic Report Medical Records [address] [place] [address] Sen May MD Social History Tobacco Use [...] Date Type Specialty Care Team Description 04/29/2027 Rocket Motor Mechanic Report Abstract, Provider documented as of this encounter Visit Diagnoses Not on filedocumented in this encounter Care Teams Division Field Inspector Relationship Specialty Start Date End Date Brett Velásquez MD PCP - General Internal Medicine 04/21/16 01/25/22 Brett Velásquez MD PCP - General Internal Medicine 01/26/22 02/15/22 Wayne Jaimes [address] [place] [address] PCP - General Internal Medicine 02/16/22 Reilly Baker MD, PHD Surgeon Neurosurgery 01/20/22 Dafne Hilton MD [address] [place] [address] Specialist Cardiology 10/13/22 Desi Swenson NP [address] [place] [address] Cardiology 02/29/24 documented as of this encounter
--- OUTSIDE RECORDS SUMMARY | 2024-09-13 06:53 | XMS_ITS | Encounter Summary ---
Author Organization [facility] Address [address] [place] [address] Care Team Providers Care Drawing In Machine Tender Name Role Phone Reilly Baker MD, PHD Unavailable Unava ilWayne Osborne Primary Care Provider [phone] Dafne Hilton MD Unavailable [phone] Desi Swenson NP Unavailable [phone] Encounter Details Date Type Department Care Team Description 10/21/2023 Orders Only Medical Records [address] [place] [address] Shaquille Loredo PA-C [address] [place] [address] Social History Tobacco Use Types Packs/Day Years [...] Date Type Specialty Care Team Description 04/29/2027 Training Engineer Report Abstract, Provider documented as of this encounter Procedures Procedure Name Priority Date/Time Associated Diagnosis Comments OUTSIDE SLEEP STUDY Routine 05/09/2022 documented in this encounter Results * OUTSIDE SLEEP STUDY (05/09/2022) Shaquille Loredo PA-C PULMONOLOGY documented in this encounter Visit Diagnoses Not on filedocumented in this encounter Care Teams Drawing In Machine Tender Relationship Specialty Start Date End Date Jose M Jaimesgil Dowell [address] [place] [address] PCP - General Internal Medicine 02/16/22 Reilly Baker MD, PHD Surgeon Neurosurgery 01/20/22 Dafne Hilton MD [address] [place] [address] Specialist Cardiology 10/13/22 Desi Swenson NP [address] [place] [address] Cardiology 02/29/24 documented as of this encounter
--- OUTSIDE RECORDS SUMMARY | 2024-09-13 06:53 | XMS_ITS | Encounter Summary ---
Author Organization [facility] Address [address] [place] [address] Care Team Providers Care Relationship Management Lead Name Role Phone Reilly Baker MD, PHD Unavailable Unava ilable Wayne Jaimes Primary Care Provider [phone] Dafne Hilton MD Unavailable [phone] Desi Swenson NP Unavailable [phone] Encounter Details Date Type Department Care Team Description 05/10/2023 Railroad Wheels And Axles Inspector Report Medical Records [address] [place] [address] Gael Duvall Social History Tobacco Use Types [...] Date Type Specialty Care Team Description 04/29/2027 Railroad Wheels And Axles Inspector Report Abstract, Provider documented as of this encounter Visit Diagnoses Not on filedocumented in this encounter Care Teams Relationship Management Lead Relationship Specialty Start Date End Date Wayne Jaimes [address] [place] [address] PCP - General Internal Medicine 02/16/22 Reilly Baker MD, PHD Surgeon Neurosurgery 01/20/22 Dafne Hilton MD [address] [place] [address] Specialist Cardiology 10/13/22 Desi Swenson NP [address] [place], [place] [address] Cardiology 02/29/24 documented as of this encounter
--- OUTSIDE RECORDS SUMMARY | 2024-09-13 06:53 | XMS_ITS | Encounter Summary ---
Author Organization [facility] Address [address] [place] [address] Care Team Providers Care Cultural Centre Manager Name Role Phone Brett Velásquez MD Primary Care Provider Reilly Stewart MD, PHD Unavailable Unawv Brett Villegas MD Primary Care Provider Wayne Dickson Primary Care Provider [phone] Dafne Hilton MD Unavailable [phone] Desi Swenson NP Unavailable [phone] Reason for Visit * Reason Onset Date Comments Medication 12/05/2021 Encounter Details Date Type Department Care Team Description 12/05/2021 Telephone [facility] Medical [facility] [address] [facility] [address] [place] [address] Ena Whipple PA-C [address] [address] Medication Social History Tobacco Use Types Packs/Day [...] * Telephone Encounter - Tanja Thomson - 12/05/2021 1:42 PM EDT Received incoming call [facility], patient's Gelsyn Injections will be delivered on 12/10/21 by end of work day. documented in this encounter Plan of Treatment Upcoming Encounters Date Type Specialty Care Team Description 04/29/2027 Reordering Clerk Report Abstract, Provider documented as of this encounter Visit Diagnoses Not on filedocumented in this encounter Care Teams Cultural Centre Manager Relationship Specialty Start Date End Date Brett Velásquez MD PCP - General Internal Medicine 04/21/16 01/25/22 Brett Velásquez MD PCP - General Internal Medicine 01/26/22 02/15/22 Wayne Jaimes [address] [place] [address] PCP - General Internal Medicine 02/16/22 Reilly Baker MD, PHD Surgeon Neurosurgery 01/20/22 Dafne Hilton MD [address] [place] [address] Specialist Cardiology 10/13/22 Desi Swenson NP [address] [place] [address] Cardiology 02/29/24 documented as of this encounter
--- OUTSIDE RECORDS SUMMARY | 2024-09-13 06:53 | XMS_ITS | Encounter Summary ---
Author Organization [facility] Address [address] [place] [address] Care Team Providers Care Fire Extinguisher Inspector Name Role Phone Brett Velásquez MD Primary Care Provider Reilly Stewart MD, PHD Unavailable Unava Brett Villegas MD Primary Care Provider Wayne Dickson Primary Care Provider [phone] Dafne Hilton MD Unavailable [phone] Desi Swenson NP Unavailable [phone] Encounter Details Date Type Department Care Team Description 02/17/2021 Ingot Header Report Medical Records [address] [place] [address] Desi Li DPM Social History Tobacco Use [...] Date Type Specialty Care Team Description 04/29/2027 Ingot Header Report Abstract, Provider documented as of this encounter Visit Diagnoses Not on filedocumented in this encounter Care Teams Fire Extinguisher Inspector Relationship Specialty Start Date End Date Brett Velásquez MD PCP - General Internal Medicine 04/21/16 01/25/22 Brett Velásquez MD PCP - General Internal Medicine 01/26/22 02/15/22 Wayne Jaimes [address] [place] [address] PCP - General Internal Medicine 02/16/22 Reilly Baker MD, PHD Surgeon Neurosurgery 01/20/22 Dafne Hilton MD [address] [place] [address] Specialist Cardiology 10/13/22 Desi Swenson NP [address] [place] [address] Cardiology 02/29/24 documented as of this encounter
--- OUTSIDE RECORDS SUMMARY | 2024-09-13 06:53 | XMS_ITS | Encounter Summary ---
Author Organization [facility] Address [address] [place] [address] Care Team Providers Care Industrial Commercial Groundskeeper Name Role Phone Reilly Baker MD, PHD Unavailable Unava ilable Wayne Jaimes Primary Care Provider [phone] Dafne Hilton MD Unavailable [phone] Desi Swenson NP Unavailable [phone] Reason for Visit * Reason Onset Date Comments Medication 08/26/2023 Encounter Details Date Type Department Care Team Description 08/26/2023 Refill Gastroenterology - [address] [place] [address] Yuliana Auguste MD [address] [place], [place] [id number] Medication Social History Tobacco Use Types Packs/Day [...] Date Type Specialty Care Team Description 04/29/2027 Chair Maker Report Abstract, Provider documented as of this encounter Visit Diagnoses Not on filedocumented in this encounter Care Teams Industrial Commercial Groundskeeper Relationship Specialty Start Date End Date Wayne Jaimes [address] [place], [place] [address] PCP - General Internal Medicine 02/16/22 Reilly Baker MD, PHD Surgeon Neurosurgery 01/20/22 Dafne Hilton MD [address] [place] [address] Specialist Cardiology 10/13/22 Desi Swenson NP [address] [place], [place] [address] Cardiology 02/29/24 documented as of this encounter
--- OUTSIDE RECORDS SUMMARY | 2024-09-13 06:53 | XMS_ITS | Encounter Summary ---
Author Organization [facility] Address [address] [place] [address] Care Team Providers Care Radio Frequency Engineer Name Role Phone Reilly Baker MD, PHD Unavailable Unava ilable Wayne Jaimes Primary Care Provider [phone] Dafne Hilton MD Unavailable [phone] Desi Swenson NP Unavailable [phone] Encounter Details Date Type Department Care Team Description 01/28/2023 Estate Agent Report Medical Records [address] [place] [address] Zofia Howe PA-C Social History Tobacco Use [...] Date Type Specialty Care Team Description 04/29/2027 Estate Agent Report Abstract, Provider documented as of this encounter Visit Diagnoses Not on filedocumented in this encounter Care Teams Radio Frequency Engineer Relationship Specialty Start Date End Date Wayne Jaimes [address] [place], [place] [phone] PCP - General Internal Medicine 02/16/22 Reilly Baker MD, PHD Surgeon Neurosurgery 01/20/22 Dafne Hilton MD [address] [place] [address] Specialist Cardiology 10/13/22 Desi Swenson NP [address] [place] [address] Cardiology 02/29/24 documented as of this encounter
--- OUTSIDE RECORDS SUMMARY | 2024-09-13 06:53 | XMS_ITS | Encounter Summary ---
Author Organization [facility] Address [address] [place] [address] Care Team Providers Care Pottery Striper Name Role Phone Brett Velásquez MD Primary Care Provider Reilly Stewart MD, PHD Unavailable Unava ilBrett Bailon MD Primary Care Provider Wayne Dickson Primary Care Provider [phone] Dafne Hilton MD Unavailable [phone] Desi Swenson NP Unavailable [phone] Encounter Details Date Type Department Care Team Description 09/05/2019 [facility] Medical Records [address] [place] [address] Vladislav Antunez DO Social History Tobacco Use [...] Date Type Specialty Care Team Description 04/29/2027 Mounting Inspector Report Abstract, Provider documented as of this encounter Visit Diagnoses Not on filedocumented in this encounter Care Teams Pottery Striper Relationship Specialty Start Date End Date Brett Velásquez MD PCP - General Internal Medicine 04/21/16 01/25/22 Brett Velásquez MD PCP - General Internal Medicine 01/26/22 02/15/22 Wayne Jaimes [address] [place] [address] PCP - General Internal Medicine 02/16/22 Reilly Baker MD, PHD Surgeon Neurosurgery 01/20/22 Dafne Hilton MD [address] [place] [address] Specialist Cardiology 10/13/22 Desi Swenson NP [address] [place] [address] Cardiology 02/29/24 documented as of this encounter
--- OUTSIDE RECORDS SUMMARY | 2024-09-13 06:53 | XMS_ITS | Encounter Summary ---
Author Organization [facility] Address [address] [place] [address] Care Team Providers Care Sales Broker Name Role Phone Brett Velásquez MD Primary Care Provider Reilly Stewart MD, PHD Unavailable Unava ilBrett Bailon MD Primary Care Provider Wayne Dickson Primary Care Provider [phone] Dafne Hilton MD Unavailable [phone] Desi Swenson NP Unavailable [phone] Encounter Details Date Type Department Care Team Description 10/04/2018 Release of Information Medical Records [address] [place] [address] Abstract, Provider Social History Tobacco Use Types [...] Date Type Specialty Care Team Description 04/29/2027 Revenue Cycle Manager Report Abstract, Provider documented as of this encounter Visit Diagnoses Not on filedocumented in this encounter Care Teams Sales Broker Relationship Specialty Start Date End Date Brett Velásquez MD PCP - General Internal Medicine 04/21/16 01/25/22 Brett Velásquez MD PCP - General Internal Medicine 01/26/22 02/15/22 Wayne Jaimes [address] [place] [address] PCP - General Internal Medicine 02/16/22 Reilly Baker MD, PHD Surgeon Neurosurgery 01/20/22 Dafne Hilton MD [address] [place] [address] Specialist Cardiology 10/13/22 Desi Swenson NP [address] [place] [address] Cardiology 02/29/24 documented as of this encounter
--- OUTSIDE RECORDS SUMMARY | 2024-09-13 06:53 | XMS_ITS | Encounter Summary ---
Author Organization [facility] Address [address] [place] [address] Care Team Providers Care Software Design Manager Name Role Phone Brett Velásquez MD Primary Care Provider Reilly Stewart MD, PHD Unavailable UnaBrett Davis MD Primary Care Provider Wayne Dickson Primary Care Provider Dafne Hilton MD Unavailable [phone] Desi Swenson NP Unavailable [phone] Reason for Visit * Reason Onset Date Comments Medication Injection, Joint 02/18/2021 SCHE DULE EUFLEXXA INJ. W/SOUND ENGINEERING TECHNICIAN, HAS PAID CLAIM ON FILE Encounter Details Date Type Department Care Team Description 02/18/2021 Telephone [facility] [address] [address] Hermes Ambrosio MD [address] [id number] Medication Injection, Joint (SCHEDULE EUFLEXXA INJ. W/SOUND ENGINEERING TECHNICIAN, HAS PAID CLAIM ON FILE) Social History [...] Date Type Specialty Care Team Description 04/29/2027 Hr Analyst Report Abstract, Provider documented as of this encounter Visit Diagnoses Not on filedocumented in this encounter Care Teams Software Design Manager Relationship Specialty Start Date End Date Brett Velásquez MD PCP - General Internal Medicine 04/21/16 01/25/22 Brett Velásquez MD PCP - General Internal Medicine 01/26/22 02/15/22 Wayne Jaimes [address] [place] [address] PCP - General Internal Medicine 02/16/22 Reilly Baker MD, PHD Surgeon Neurosurgery 01/20/22 Dafne Hilton MD [address] [place] [address] Specialist Cardiology 10/13/22 Desi Swenson NP [address] [place] [address] Cardiology 02/29/24 documented as of this encounter
--- OUTSIDE RECORDS SUMMARY | 2024-09-13 06:53 | XMS_ITS | Encounter Summary ---
Author Organization [facility] Address [address] [place] [address] Care Team Providers Care Dye Can Operator Name Role Phone Brett Velásquez MD Primary Care Provider Reilly Stewart MD, PHD Unavailable Unava ilBrett Bailon MD Primary Care Provider Wayne Dickson Primary Care Provider [phone] Dafne Hilton MD Unavailable [phone] Desi Swenson NP Unavailable [phone] Encounter Details Date Type Department Care Team Description 05/01/2019 Business Doc Medical Records [address] [place] [address] Abstract, Provider Social History Tobacco Use Types [...] Date Type Specialty Care Team Description 04/29/2027 Insulator Cutter And Former Report Abstract, Provider documented as of this encounter Visit Diagnoses Not on filedocumented in this encounter Care Teams Dye Can Operator Relationship Specialty Start Date End Date Brett Velásquez MD PCP - General Internal Medicine 04/21/16 01/25/22 Brett Velásquez MD PCP - General Internal Medicine 01/26/22 02/15/22 Wayne Jaimes [address] [place] [address] PCP - General Internal Medicine 02/16/22 Reilly Baker MD, PHD Surgeon Neurosurgery 01/20/22 Dafne Hilton MD [address] [place] [address] Specialist Cardiology 10/13/22 Desi Swenson NP [address] [place] [address] Cardiology 02/29/24 documented as of this encounter
--- OUTSIDE RECORDS SUMMARY | 2024-09-13 06:53 | XMS_ITS | Encounter Summary ---
Author Organization [facility] Address [address] [place] [address] Care Team Providers Care Separations Scientist Name Role Phone Brett Velásquez MD Primary Care Provider Reilly Stewart MD, PHD Unavailable UnaBrett Davis MD Primary Care Provider Wayne Dickson Primary Care Provider [phone] Dafne Hilton MD Unavailable [phone] Desi Swenson NP Unavailable [phone] Encounter Details Date Type Department Care Team Description 02/16/2019 Orders Only Medical Records [address] [place] [address] Yuliana Auguste MD [address] [place] [address] Social History Tobacco Use Types Packs/Day Years [...] Date Type Specialty Care Team Description 04/29/2027 Consultant Luxury And [employer]. Vice President [employer] (Ex ) Report Abstract, Provider documented as of this encounter Procedures Procedure Name Priority Date/Time Associated Diagnosis Comments OUTSIDE PATHOLOGY Routine 02/14/2019 documented in this encounter Results * OUTSIDE PATHOLOGY (02/14/2019) H Perez Auguste MD OUTSIDE LAB documented in this encounter Visit Diagnoses Not on filedocumented in this encounter Care Teams Separations Scientist Relationship Specialty Start Date End Date Brett Velásquez MD PCP - General Internal Medicine 04/21/16 01/25/22 Brett Velásquez MD PCP - General Internal Medicine 01/26/22 02/15/22 Wayne Jaimes [address] [place] [address] PCP - General Internal Medicine 02/16/22 Reilly Baker MD, PHD Surgeon Neurosurgery 01/20/22 Dafne Hilton MD [address] [place], [place] [id number] Specialist Cardiology 10/13/22 Desi Swenson NP [address] [place] [address] Cardiology 02/29/24 documented as of this encounter
--- OUTSIDE RECORDS SUMMARY | 2024-09-13 06:53 | XMS_ITS | Encounter Summary ---
Author Organization [facility] Address [address] [place] [address] Care Team Providers Care Microstrategy Architect Name Role Phone Reilly Baker MD, PHD Unavailable Unava ilable Wayne Jaimes Primary Care Provider [phone] Dafne Hilton MD Unavailable [phone] Desi Swenson NP Unavailable [phone] Encounter Details Date Type Department Care Team Description 04/15/2023 Warehouse Receiving Supervisor Report Medical Records [address] [place] [address] Vladislav Antunez DO Social History Tobacco Use [...] Date Type Specialty Care Team Description 04/29/2027 Warehouse Receiving Supervisor Report Abstract, Provider documented as of this encounter Visit Diagnoses Not on filedocumented in this encounter Care Teams Microstrategy Architect Relationship Specialty Start Date End Date Wayne Jaimes [address] [place] [address] PCP - General Internal Medicine 02/16/22 Reilly Baker MD, PHD Surgeon Neurosurgery 01/20/22 Dafne Hilton MD [address] [place] [address] Specialist Cardiology 10/13/22 Desi Swenson NP [address] [place], [place] [id number] Cardiology 02/29/24 documented as of this encounter
--- OUTSIDE RECORDS SUMMARY | 2024-09-13 06:53 | XMS_ITS | Encounter Summary ---
Author Organization [facility] Address [address] [place] [address] Care Team Providers Care Information Management Specialist Name Role Phone Brett Velásquez MD Primary Care Provider Reilly Stewart MD, PHD Unavailable Unava Brett Villegas MD Primary Care Provider Wayne Dickson Primary Care Provider [phone] Dafne Hilton MD Unavailable [phone] Desi Swenson NP Unavailable [phone] Encounter Details Date Type Department Care Team Description 03/18/2021 Remotely Piloted Vehicle Controller Report Medical Records [address] [place] [address] Zuleika Baez PA-C Social History Tobacco Use [...] Date Type Specialty Care Team Description 04/29/2027 Remotely Piloted Vehicle Controller Report Abstract, Provider documented as of this encounter Visit Diagnoses Not on filedocumented in this encounter Care Teams Information Management Specialist Relationship Specialty Start Date End Date Brett Velásquez MD PCP - General Internal Medicine 04/21/16 01/25/22 Brett Velásquez MD PCP - General Internal Medicine 01/26/22 02/15/22 Wayne Jaimes [address] [place] [address] PCP - General Internal Medicine 02/16/22 Reilly Baker MD, PHD Surgeon Neurosurgery 01/20/22 Dafne Hilton MD [address] [place] [address] Specialist Cardiology 10/13/22 Desi Swenson NP [address] [place] [address] Cardiology 02/29/24 documented as of this encounter
--- OUTSIDE RECORDS SUMMARY | 2024-09-13 06:53 | XMS_ITS | Encounter Summary ---
Author Organization [facility] Address [address] [place] [address] Care Team Providers Care Jewelry Technician Name Role Phone Brett Velásquez MD Primary Care Provider Keisha Luna MD Primary Care Provider [phone] Brett Velásquez MD Primary Care Provider Reilly Stewart MD, PHD Unavailable Unava ilable Brett Velásquez MD Primary Care Provider Wayne Dickson Primary Care Provider [phone] Dafne Hilton MD Unavailable [phone] Desi Swenson NP Unavailable [phone] Encounter Details Date Type Department Care Team Description 05/02/2014 Network Developer Report Medical Records [address] [place] [address] Vipin Cowart Social History Tobacco Use Types [...] Type Specialty Care Team Description 04/29/2027 Network Developer Report Abstract, Provider documented as of this encounter Visit Diagnoses Not on filedocumented in this encounter Care Teams Jewelry Technician Relationship Specialty Start Date End Date Brett Velásquez MD PCP - General Internal Medicine 10/29/11 06/19/15 Keisha Chavez MD [address] [place] [address] PCP - General Internal Medicine 06/20/15 04/20/16 Brett Velásquez MD PCP - General Internal Medicine 04/21/16 01/25/22 Brett Velásquez MD PCP - General Internal Medicine 01/26/22 02/15/22 Wayne Jaimes [address] [place], [place] [id number] PCP - General Internal Medicine 02/16/22 Reilly Baker MD, PHD [address] [place] [address] Surgeon Neurosurgery 01/20/22 Dafne Hilton MD [address] [place] [address] Specialist Cardiology 10/13/22 Desi Swenson, ILDA [address] [place] [address] Cardiology 02/29/24 documented as of this encounter
--- OUTSIDE RECORDS SUMMARY | 2024-09-13 06:53 | XMS_ITS | Encounter Summary ---
Author Organization [facility] Address [address] [place] [address] Care Team Providers Care Thimble Press Operator Name Role Phone Brett Velásquez MD Primary Care Provider Reilly Stewart MD, PHD Unavailable Unava ilBrett Bailon MD Primary Care Provider Wayne Dickson Primary Care Provider [phone] Dafne Hilton MD Unavailable [phone] Desi Swenson NP Unavailable [phone] Encounter Details Date Type Department Care Team Description 07/21/2019 Release of Information Medical Records [address] [place] [address] Abstract, Provider Social History Tobacco Use Types [...] Date Type Specialty Care Team Description 04/29/2027 Juice Scaleman Report Abstract, Provider documented as of this encounter Visit Diagnoses Not on filedocumented in this encounter Care Teams Thimble Press Operator Relationship Specialty Start Date End Date Brett Velásquez MD PCP - General Internal Medicine 04/21/16 01/25/22 Brett Velásquez MD PCP - General Internal Medicine 01/26/22 02/15/22 Wayne Jaimes [address] [place] [address] PCP - General Internal Medicine 02/16/22 Reilly Baker MD, PHD Surgeon Neurosurgery 01/20/22 Dafne Hilton MD [address] [place] [address] Specialist Cardiology 10/13/22 Desi Swenson NP [address] [place] [address] Cardiology 02/29/24 documented as of this encounter
--- NOTE | 2024-09-13 07:12 | CA_ITS ---
Acquisition Time: 2024-09-13 08:01:45 Total Exercise Time: 00:07:21 Test Indications: CAD, CP, SOB Medications: SEE H&P Protocol: ANASTASIIA Max HR: 103 BPM 68% of Pred: 150 BPM Max BP: 142/78 mmHG Max Work Load: 9.0 METS Exercise Stress Test with exercise 7 mins 21 secs of Anastasiia Protocol, achieving 67% MPHR, METS 9.0, with no anginal symptoms. Without EKG changes at the achieved workload. Due to suboptimal HR, test switched to Lexiscan. Pharmacological stress test with Lexiscan while pt continued to walk on treadmill at 1mph, with reports of dizziness, flushing and headache, with isolated PVCs, with normotensive response to injection. In recovery, pt treated with IVP Aminophylline 75 mg to reverse Lexiscan, after which pt feeling back to baseline. Nuclear images pending. Test reviewed with Dr. Pinto. Referred By: Gino Pinto Electronically Signed By: Arnaldo Rodgers
[2024-09-13 07:40] LABS: Cholesterol 196 mg/dL (<200); HDL Cholesterol 72 mg/dL (>40); LDL Cholesterol Calculated 99 mg/dL (<100); Triglycerides 129 mg/dL (<150)
[2024-09-13 07:56] LABS: Free T4 (Free Thyroxine) 0.93 ng/dL (0.71-1.85); Thyroid Stimulating Hormone 5.46 uIU/mL (0.32-4.0)
== END ==
LOC: HO.CARD 06:47
PROVIDERS: Absent Provider Student in an Organized Health Care Education/Training Program; PCP Internal Medicine; Visit Provider Internal Medicine Cardiovascular Disease
DX: R06.02 Shortness of breath (principal); E04.1 Nontoxic single thyroid nodule; I25.10 Atherosclerotic heart disease of native coronary artery without angina pectoris
CPT/HCPCS: 36415; 76536; 78452; 80061; 84439; 84443; 93017; A9500; J0280; J2785

== ENCOUNTER → 2024-09-13 07:12 | Outpatient (BNV) | payer OTHER, SELFPAY | PROVIDERS: Absent Provider Student in an Organized Health Care Education/Training Program; PCP Internal Medicine | DX: I49.3 Ventricular premature depolarization (principal) | CPT/HCPCS: 78452; 93016; 93018 ==

== ENCOUNTER 2024-09-13 13:53 | Outpatient (REF) | payer OTHER, SELFPAY ==
--- NOTE | ~2024-09-13 | US_ITS ---
EXAMINATION: US THYROID CLINICAL INFORMATION: Nontoxic single thyroid nodule. History of left thyroidectomy for malignant neoplasm in 2019 COMPARISON: None available. TECHNIQUE: Linear transducer grayscale and color Doppler examination with attention to the region of the thyroid. FINDINGS: SIZE: Measurements of the thyroid lobes and nodules are given in sagittal, anteroposterior and transverse dimensions respectively. Right Thyroid Lobe: 5.4 x 1.9 x 2.0 cm, volume 10.2. mL. Parenchyma: The gland echotexture is homogeneous. Thyroid vascularity is normal. Left Thyroid Lobe: Left thyroid lobe has been surgically resected. Isthmus: 0.53 cm in maximum AP dimension. Estimated total number of nodules greater than or equal to 1 cm: 0. Animal Daycare Provider nodules are described as follows: No nodule seen in the right thyroid lobe or isthmus. NODES: No lymphadenopathy is seen in the tissue surrounding the thyroid gland. US/US thyroid IMPRESSION: Unremarkable left thyroid lobe ultrasound. Right thyroid gland has been surgically removed. ACR TI-RADS RECOMMENDATION REFERENCE: Ultrasound-guided fine-needle aspiration, followup ultrasound, no further follow up. * TR1 (0 point) and TR2 (2 points): No FNA or follow up. * TR3 (3 points): FNA if more than or equal to 2.5 cm in maximum dimension, followup ultrasound in 1, 3 and 5 years if 1.5 to 2.4 cm in maximum dimension. * TR4 (4-6 points): FNA if more than or equal to 1.5 cm in maximum dimension, followup ultrasound in 1, 2, 3 and 5 years if 1 to 1.4 cm in maximum dimension. * TR5 (more than or equal to 7 points): FNA if more than or equal to 1 cm in maximum dimension, followup ultrasound every year for 5 years if 0.5 to 0.9 cm in maximum dimension. * TR3, TR4 or TR5 nodules that are below the size threshold for followup receive no follow up. Electronically signed by: John Olson MD 09/15/2024 12:01 PM [facility] [place]
--- OUTSIDE RECORDS SUMMARY | 2024-09-13 16:38 | XMS_ITS | Encounter Summary ---
Author Organization [employer] Address [address] [place] [address] [place], [place] [address] Care Team Providers Care Catering Cook Name Role Phone Unavailable Primary Care Provider Unavailabl e Encounter Details Date Type Department Care Team (Latest Contact Info) Description 01/23/2022 Abstract [facility] CONVERSIONS Dental, Provider, DDS Social History Tobacco [...]
--- OUTSIDE RECORDS SUMMARY | 2024-09-13 16:38 | XMS_ITS | Data Portability ---
Author Organization [place] [facility] Address [address] [address] Care Team Providers Care Disability Services Coordinator Name Role Phone SUMMER LOWE Primary Care Provider [phone] Assessment Encounter Date Assessment Date Assessment LastModified [...] speech therapy referra l 2024 025 [email or web address] [facility], [address] [place] [address] [place], [address], 08/11/2024 11:57:42 speech therapy referra l - Appt 05/26 @ 8:30am 2023 024 [facility], [facility] [place], [address], 05/01/2024 16:23:00 Procedures None recorde d. Surgeries None recorde d. Imaging None recorde d. Medication Orders famotid ine 20 mg tablet 2024 025 [facility] [address] [place] [address], [address], 08/10/2024 15:05:18 nystati n 100,000 unit/mL oral suspens ion 2023 024 [facility], [address] [place] [address], [address], 05/10/2024 16:22:57 nystati n 100,000 unit/mL oral suspens ion 2023 024 [facility] [address] [place] [address], [address], 04/21/2024 14:42:09 Patient TargetsNo targets recorded. Patient InstructionsNo instructions recorded. Reason for Referral Appt 05/26 @ 8:30am Referring Physician: Eneida Mccall Otolaryngology, Encounter Date: 04/21/2024 Referring Physician: Eneida Mccall Otolaryngology, Encounter Date: 08/10/2024 Problems Name Problem SNOMED Code Status Onset Date Resolution Date Notes Provider Name and Address Organization Details Recorded Time Sensorine ural hearing loss of bilateral ears 905211115 Active 2019 Sensorine ural hearing loss, bilateral ; Note: Date Diagnosed : 02/26/2020 3:32 PM (H90.3) Note: Date Diagnosed : 02/26/2020 3:32 PM (H90.3) Not Available [facility] 00:53:14 Stomatiti s 50887817 Active 2020 Oral thrush; Note: Date Diagnosed : 04/14/2021 11:22 AM (B37.0) Not Available [facility] 4 02:18:55 Candidias is of mouth 06041372 Active 2020 Oral thrush; Note: Date Diagnosed : 04/14/2021 11:22 AM (B37.0) Not Available [facility] 4 02:18:55 Gastroeso phageal reflux disease without esophagit is 990018113 Active 2015 Gastro-es ophageal reflux disease without esophagit is; Note: Date Diagnosed : 07/22/2015 2:46 PM (K21.9) Not Available [facility] 4 02:19:18 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, unilatera l; Note: Date Diagnosed : 12/12/2019 3:31 PM (J38.01) Not Available [facility] 4 02:18:19 Dysphagia 30136068 Active 2022 Dysphagia , unspecifi ed; Note: Date Diagnosed : 10/27/2021 12:05 PM (R13.10) ; Start Date : 2 Other dysphagia ; Note: Date Diagnosed : 04/07/2023 1:44 PM (R13.19) Not Available [facility] 4 02:19:19 Benign paroxysma l positiona l vertigo 331035946 Active 2019 Benign paroxysma l vertigo, left ear; Note: Date Diagnosed : 02/26/2020 3:32 PM (H81.12) Not Available [facility] 4 02:18:20 Cough 64462844 Active 2015 Cough, unspecifi ed; Note: Changed from R05 to R05.9 ( 2 2:10 PM) , Date Diagnosed : 09/04/2015 3:10 PM (R05) Not Available [facility] 4 02:19:08 Oropharyn geal dysphagia 89744958 Active 2023 Dysphagia , oropharyn geal phase; Note: Date Diagnosed : 09/16/2023 1:19 PM (R13.12) Not Available [facility] 02:19:08 Hemoptysi s 57059717 Active 2023 ENEIDA MCCALL MD [address] [facility],[place] [address], [facility] [place], [address] , [place] [facility] 14:33:59 Chronic sore throat 046194282 Active 2023 ENEIDA MCCALL MD [address] [place] [address],[place] [address], [facility] [place], [address] , [place] [facility] 14:34:04 Chronic hoarsenes s 62602075476 05 Active 2023 ENEIDA MCCALL MD [address] [place] [address],[place] [address], [facility] [place], [address] , [facility] - [facility] 14:42:59 Problem Notes None recorded. Procedures Surgical History Date Name Laterality Status Provider Name and Address Organization Details Recorded Time 08/10/19 25 FFL_RE completed ENEIDA MCCALL MD [address] [place] [address],[place] [address], [place], [address], [place] - [facility] 08/10/2024 15:02:15 04/21/20 24 FFL_RE completed ENEIDA MCCALL MD [address] [place] [address],[place] [address], [place], [address], [facility] - [facility] 04/21/2024 14:41:39 transurethral prostatectomy completed Bibi Neal [place] - [facility] 05/10/2024 14:05:40 subtotal thyroidectomy completed Bibi Neal [place] - [facility] 05/10/2024 14:05:53 Imaging Results None recorded. Procedure Notes None recorded. Medical Equipment None Reported. Allergies No known drug allergies Medications Name Sig Start Date Stop Date Status Note LastModified by Organization Details LastModified Time losartan 50 mg tablet 05/06 completed Medicati on ID: [id number] B rand Name: losartan Send Method: E-Prescr [...] gram tablet 05/06 completed Medicati on ID: [id number] D uration Value: 7 Brand Name: valacycl [...] mucosal jelly 05/10 completed Medicati on ID: [id number] D uration Value: 14 Brand Name: lidocain [...] mg capsule 05/06 completed Medicati on ID: [id number] D uration Value: 90 Brand Name: tamsulos in Send Method: E-Prescr ibed Sub s Allowed: subs OK Speci al Instruct ion: TAKE ONE CAPSULE DAILY Me dication GenericN jay: tamsulos in Not Available Not Available Not Available pantopraz ole 40 mg tablet,de layed release 07/12 completed Medicati on ID: [id number] D uration Value: 30 Brand Name: pantopra [...] by mouth 07/12 completed Medicati on ID: [id number] D uration Value: 30 Prescri bed By [...] oral powder 05/10 completed Medicati on ID: [id number] D uration Value: 30 Brand Name: polyethy [...] layed release 12/11 completed Medicati on ID: [id number] P devonte d By Name: Trevon Gee [...] both nostrils 10/17 completed Medicati on ID: [id number] P rescribe d By Name: Trevon Gee rd, nd Name: Flonase Allergy Relief S end Method: E-Prescr ibed Sub s Allowed: subs OK Medic ationGen ericName : Flonase Allergy Relief Not Available Not Available Not Available Vitals Date Recorded Body height Body mass index (BMI) Body weight Provider Name and Address Organization Details Last Updated DateTime 04/21/2024 167.64 cm 27 kg/m2 98236.93 g Aakash Weaver [place] [facility] 04/21/2024 14:00:43 Date Recorded Body height Body weight Provider Name and Address Organization Details Last Updated DateTime 05/10/2024 167.64 cm 64405.93 g Bibi Neal [place] [facility] 05/10/2024 14:01:54 Date Recorded Body height Provider Name an d Address Organization Details Last Updated DateTime 08/10/2024 167.64 cm Aakash Weaver [facility] 08/10/2024 14:29:36 Social History None recorded. Functional Status None recorded. Mental Status None recorded. Family History Nothing Reported. Medical History Condition Response Hypertension Y Sleep Disorder Y GERD/Reflux Y Past Encounters Encounter ID Performer Location Encounter Start Date Encounter Closed Date Diagnosis/Indication Diagnosis SNOMED-CT Code Diagnosis ICD10 Code Diagnosis Note [id number] ENEIDA MCCALL MD [facility] [address] [address] 04/21/2024 13:44:06 04/21/2024 15:41:33 Hemoptysis 30936865 R04.2 resolved. laryngosco py negative today for bleeding Chronic sore throat 2754 77012 J31.2 likely due to thrush. Gastroesop hageal reflux disease without esophagitis 515152485 K21.9 continue esomeprazo le Candidiasis of mouth 797 16019 B37.0 FFL notable for montez in base of tongue. LIkely secondary to steroid inhalers. Will treat with nystatin. I asked him to call if not improved. No tumors on laryngosoc py. Chronic hoarseness 79992 15856 105 R49.0 will make voice therapy referral to [facility] [id number] VELASQUEZ GONZALEZ MD [facility] [address] [place] [address] 05/10/2024 13:45:35 05/10/2024 15:10:38 Candidiasis of mouth 26930895 B37.0 Chronic hoarseness 74085 71276 105 R49.0 Chronic sore throat 2754 68849 J31.2 Gastroesop hageal reflux disease without esophagitis 532822049 K21.9 [id number] ENEIDA MCCALL MD [facility] [address] [place] [address] 08/10/2024 13:56:29 08/10/2024 15:05:58 Chronic sore throat 475147269 J31.2 no evidence of thrush. he has breakthrou gh heartburn and I think the soreness is due to LPR. I will add dual therapy for reflux with famotidine in addition to his PPI. Gastroesop hageal reflux disease without esophagitis 244192305 K21.9 begin dual thearpy Candidiasis of mouth 797 24801 B37.0 resolved Chronic hoarseness 85918 44133 105 R49.0 will make voice therapy referral to [facility] since he could not be seen at [facility], gave reassuranc e no vocal cord lesions. Health Concerns Section Related Observation LastModified by Organization Detai ls LastModified Time None Recorded Concern Status LastModified by Organization Details LastModified Time None Recorded Advance Directives Directive None Recorded Payers Encounter Date Sequence Insurance Name Policy Number Policy Ayala Covered Member ID Ayala Member ID Guarantor Name 04/21/2024 1 [facility] Laina Lewis [id number] Laina Lewis 05/10/2024 1 [facility] Laina Lewis [id number] Laina Lewis 08/10/2024 1 [facility] Laina Lewis [id number] Laina Lewis Notes Date Note Type Note [...] in September 2020. ENEIDA MCCALL MD [address] [facility] [address], [place], [address], [place] - [facility] 04/21/2024 14:43:45 05/10/2024 text/html 68-year-old male [...] Normal MBS. VELASQUEZ QUINTERO MD [address] [facility] [address], [place], [address], [place] [facility] 05/11/2024 12:34:14 08/10/2024 text/html He has [...] FOL in September 2020. ENEIDA MCCALL MD [address] [place] [address], [place], [address], [place] [facility] 08/10/2024 15:05:10
--- OUTSIDE RECORDS SUMMARY | 2024-09-13 16:38 | XMS_ITS | Clinical Summary ---
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 12/17/2022 ST elevation [...] 08/08/2024 12:45 PM EST Anesthesia Event [facility] Pain Management [address] [place] [address] Bolivar Palmer MD 08/08/2024 11:38 AM EST - 08/08/2024 11:59 PM EST Hospital Encounter [facility] [address] [place] [address] Vladislav Antunez DO Chang, Daniel J, MD Radiculopathy, lumbar region Discharge Disposition: Home or Self Care 08/08/2024 6:21 AM EST - 08/08/2024 11:59 PM EST Hospital Encounter [facility] Xray [address] [place] [phone] Pain Discharge Disposition: Home or Self Care 07/13/2024 Telephone [facility] Cardiology [address] [place] [address] [place] [phone] Wayne Jaimes MD Medical Records from Last [...] fracture repair UPPER GASTROINTESTINAL ENDOSCOPY 01/13/2017 PROCEDURE: AK UPPER GI ENDOSCOPY PERFORMED; COMMENT: normal UPPER GASTROINTESTINAL ENDOSCOPY 03/08/12 PROCEDURE: AK UPPER GI ENDOSCOPY PERFORMED; COMMENT: normal OTHER [...] Dr. Bell UPPER GASTROINTESTINAL ENDOSCOPY 09/17/2020 PROCEDURE: AK UPPER GI ENDOSCOPY PERFORMED; COMMENT: Normal findings. 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 (CMS/HCC) 12/17/2022 DX:Coronary artery dise ase involving oneida coronary artery of oneida heart with angina pectoris (HCC) Esophageal dysmotility [...] 8:30 AM EDT Office Visit Adult Medicine [address] [address] Alice Schreiber PA [address] [address] 10/04/2024 3:30 PM EDT Office Visit Orthopedic Surgery - [place] [address] [facility] [address] [place] [address] Wen Herrmann NP 175 [facility] [address] [place] [address] 11/15/2024 3:15 PM EDT Office Visit [facility] [address] [place] [address] Eduard Mccormick MD [address] [facility] [address] [place] [address] Health Maintenance Due Date Last Done Comments [...] HEALTHCARE MEDICARE [place]ICAID - [place] Care Teams Tacking Machine Operator Relationship Specialty Start Date End Date Wayne Jaimes MD [address] [place] [address] PCP - General Internal Medicine 02/16/22
--- OUTSIDE RECORDS SUMMARY | 2024-09-13 16:38 | XMS_ITS | Encounter Summary ---
Author Organization [employer] Address [address] [place] [address] [address] [address] Care Team Providers Care Tobacco Farmworker Name Role Phone Unavailable Primary Care Provider Unavailabl e Encounter Details Date Type Department Care Team (Latest Contact Info) Description 01/15/2021 Abstract [facility] Dental, Provider, DDS Social History Tobacco [...]
--- OUTSIDE RECORDS SUMMARY | 2024-09-13 16:38 | XMS_ITS | Clinical Summary ---
Author Organization [facility] Address [address] [facility] [address] [place] [address] Phone Care Team Providers Care Nuclear Logging Engineer Name Role Phone Shelbie Upton MD Primary Care Provider [phone] Allergies No known active allergies Medications albuterol [...] to complete this topic Insurance [place] [facility] DUAL COMPLETE ([id number]) [facility] DUAL COMPLETE ([id number]) [place]ICAID [place] Care Teams Nuclear Logging Engineer Relationship Specialty Start Date End Date Shelbie Upton MD [address] [place] [address], [address] [place], [place] [id number] PCP - General Internal Medicine 02/04/24
--- OUTSIDE RECORDS SUMMARY | 2024-09-13 16:38 | XMS_ITS | Clinical Summary ---
Author Organization [facility] [employer] Address [address] [place] [address] 7 [place] [address] Care Team Providers Care Chick Room Supervisor Name Role Phone Unavailable Primary Care Provider [...]
--- OUTSIDE RECORDS SUMMARY | 2024-09-13 16:38 | XMS_ITS | Clinical Summary ---
Author Organization [facility] Address [address] [place] [address] Care Team Providers Care Health Unit Clerk Name Role Phone Brett Velásquez MD Primary Care Provider [phone] Allergies No known active allergies Medications Medication [...] age to complete this topic Care Teams Health Unit Clerk Relationship Specialty Start Date End Date Brett Velásquez MD PCP - General Internal Medicine 10/20/17
== END 2024-09-13 13:54 | disposition home or self-care (01) ==
LOC: HO.HMGCX 13:53
PROVIDERS: PCP Internal Medicine; Visit Provider Student in an Organized Health Care Education/Training Program
DX: E04.1 Nontoxic single thyroid nodule (principal)
CPT/HCPCS: 76536

== ENCOUNTER → 2024-09-13 13:54 | Outpatient (BNV) | payer OTHER, SELFPAY | PROVIDERS: PCP Internal Medicine; Visit Provider Radiology Diagnostic Radiology | DX: E04.1 Nontoxic single thyroid nodule (principal) | CPT/HCPCS: 76536 ==

== ENCOUNTER 2024-09-14 14:48 | Outpatient (AMB) | payer OTHER, SELFPAY ==
--- NOTE | 2024-09-14 14:59 | MHC.OFFVIS ---
Vital Signs 09/14/24 15:04 Height 5 ft 4 in Weight 149 lb 14.629 oz BMI 25.7 BP 110/76 Blood Pressure Location Lt brachial Position Sitting Pulse 66 Intake Visit Reasons: 6 wk follow up after testing Intake Note: 6 week follow-up after testing feeling good Sheet Rock Applicator Required: No Allergies No Known Allergies Allergy (Verified 08/31/24 14:03) Medication List - Last Reconciled 09/14/24 by Gino Pinto MD albuterol sulfate 90 mcg/actuation 2 puffs inhalation Q4H PRN aspirin 81 mg PO DAILY atorvastatin 40 mg PO DAILY betamethasone, augmented 0.05 % appl topical diclofenac sodium 1% 1 g topical BID 90 days efinaconazole 10% (Jublia) 1 appl topical DAILY famotidine 20 mg PO BID fluticasone furoate-vilanterol 100-25 mcg/dose (Breo Ellipta) 1 ea inhalation DAILY gabapentin 300 mg PO BID ketoconazole 2% appl topical BID lidocaine-prilocaine 2.5-2.5 % 1 g topical BID linaclotide (Linzess) 145 mcg PO QAM losartan 25 mg PO DAILY montelukast 10 mg PO QPM rabeprazole (AcipHex) 20 mg PO QAM sucralfate (Carafate) 1 g PO QNOON HPI Comments Details: Laina comes for follow-up. Since I last saw him he said he has been getting right-sided pressure-like symptoms when he does 10 minutes on the treadmill. These are new symptoms for him. Then he was to stop and symptoms subside within 5-10 minutes. He has not been getting any symptoms at rest. He then stops exercising for the day. He said he has done this multiple times and the pain has been consistently reproducible. He denies any heart failure symptoms. Takes all his medications. His LDL is not well optimized on current statin therapy. [facility] Medical History Finger laceration with complication Encounter to establish care Trigger finger Thyroid nodule Surgical History H/O colonoscopy History of esophagogastroduodenoscopy (EGD) Hx of cataract extraction History of thyroid surgery History of prostate surgery Family History Sister Arthritis Mother Heart disease Lung cancer Father Hypertension Sister Thyroid cancer Social History Household Members: Spouse Housing: Apartment Are you a primary critical care physician assistant to a significant other at home: No Do you presently have visiting nurse or other home services: No Alcohol intake: never Patient Tobacco Use Status: Never used Tobacco e-Cigarette/Vaping Use: Never Used Second Hand Smoke Exposure: No service: No Current occupational status: employed 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 Current occupational exposures/hazards: No Cognitive needs: No Hearing needs: No Vision needs: No Review of Systems Const Denies chills, Denies fatigue, Denies fever(s), Denies frequent falls, Denies weakness, Denies weight gain and Denies weight loss ENT Denies dizziness Card Denies chest pain, Denies leg edema, Denies lightheadedness, Denies palpitations, Denies dyspnea, Denies dyspnea on exertion, Denies orthopnea and Denies other (loss of consciousness) Resp Denies cough, Denies dyspnea and Denies dyspnea on exertion GI Denies hematochezia and Denies change in stool character Musc Denies abnormal gait, Denies muscle weakness, Denies numbness, Denies radiating pain into limb and Denies tingling Neuro Denies abnormal gait, Denies dizziness, Denies frequent falls, Denies numbness, Denies tingling and Denies weakness Endo Denies fatigue and Denies palpitations Physical Exam Vital Signs: Last Vital Signs Pulse 66 09/14/24 15:04 BP 110/76 09/14/24 15:04 BMI result Body Mass Index 25.7 Const General: cooperative, comfortable, no acute distress, alert, awake and Physically active Nutritional Appearance: average body habitus Orientation/consciousness: patient oriented x3 Limitations: no limitations HEENT Head: Yes normocephalic and Yes atraumatic Neck Neck: Yes trachea midline, Yes supple and Yes no JVD Carotids: no bruits Resp Effort & Inspection: normal respiratory effort Auscultation: clear to auscultation bilaterally and diminished lung sounds Cardio Jugular venous distension: no JVD Palpation: normal PMI Rate: regular rate Rhythm: regular rhythm Heart sounds: S1 normal heart sound present, S2 normal heart sound present, no click, no gallops, no murmurs and no rubs GI Auscultation: normal bowel sounds Skin General skin exam: no rashes or lesions noted Neuro General: patient oriented x3 and no focal motor deficits Extrem General: Yes no clubbing, cyanosis or edema Assessment & Plan Assessment & Plan (1) Exertional chest pain: Code(s): R07.9 - Chest pain, unspecified Category: Medical Plan: Recent onset recurrent exertional chest pain suggestive of angina in this elderly gentleman with prior CAD and stenting. Concerning for progressive coronary disease or recent change in his block morphology. He requires invasive cardiac catheterization. Myocardial perfusion imaging suggestive of ischemia as well. Discussed with him the need for cardiac catheterization including risk, benefits, alternatives. He understands agrees. Will schedule him in the near future. Advised to continue aspirin statin. Advised to add additional therapy with ezetimibe. He was not too excited about it. Will send him with a prescription and he was start taking. Also start him on Toprol 25 mg daily. Follow-up after cardiac catheterization. Thank you for allowing me to partake in his care Medications: Discontinued sucralfate (Carafate) Discontinued Reason: Doctor's Order 1 g PO QNOON 30 tabs 3RF K22.70 - Soto's esophagus without dysplasia, K27.9 - Peptic ulcer, site unspecified, unspecified as acute or chronic, without hemorrhage or perforation, K29.60 - Other gastritis without bleeding Coding Level of Care Code Est Pt Level 4 (81713) Complex EM visit Add On G2211 Diagnoses Exertional chest pain R07.9
[2024-09-14 15:04] VITALS: BP 110/76; PULSE 66; BMI 25.7
--- OUTSIDE RECORDS SUMMARY | 2024-09-14 18:16 | XMS_ITS | Encounter Summary ---
Author Organization [facility] Address [address] [place] [address] Care Team Providers Care Radiography Technician Name Role Phone Brett Velásquez MD Primary Care Provider Keisha Luna MD Primary Care Provider [phone] Brett Velásquez MD Primary Care Provider Reilly Stewart MD, PHD Unavailable Unava ilable Brett Velásquez MD Primary Care Provider Wayne Dickson Primary Care Provider [phone] Dafne Hilton MD Unavailable [phone] Desi Swenson NP Unavailable [phone] Encounter Details Date Type Department Care Team Description 06/28/2012 Supervisor Pile Driving Report Medical Records [address] [place] [id number] Shaquille Chandra Social History Tobacco Use Types [...] Date Type Specialty Care Team Description 04/29/2027 Supervisor Pile Driving Report Abstract, Provider documented as of this encounter Visit Diagnoses Not on filedocumented in this encounter Care Teams Radiography Technician Relationship Specialty Start Date End Date Brett Velásquez MD PCP - General Internal Medicine 10/29/11 06/19/15 Keisha Chavez MD [address] [place] [id number] PCP - General Internal Medicine 06/20/15 04/20/16 Brett Velásquez MD PCP - General Internal Medicine 04/21/16 01/25/22 Brett Velásquez MD PCP - General Internal Medicine 01/26/22 02/15/22 Wayne Jaimes [address] [place] [id number] PCP - General Internal Medicine 02/16/22 Reilly Baker MD, PHD [address] [place] [address] Surgeon Neurosurgery 01/20/22 Dafne Hilton MD [address] [place] [id number] Specialist Cardiology 10/13/22 Desi Swenson NP [address] [place] [id number] Cardiology 02/29/24 documented as of this encounter
--- OUTSIDE RECORDS SUMMARY | 2024-09-14 18:16 | XMS_ITS | Data Portability ---
Author Organization [place] - [facility], Allergy Address [address] [address] Care Team Providers Care Engraver Flatware Name Role Phone SUMMER LOWE Primary Care [...] speech therapy referra l 2024 025 [email or web address] [facility], [address] [place] [address] [place], [address], 08/11/2024 11:57:42 speech therapy referra l - Appt 05/26 @ 8:30am 2023 024 [facility], [facility] [place], [address], 05/01/2024 16:23:00 Procedures None recorde d. Surgeries None recorde d. Imaging None recorde d. Medication Orders famotid ine 20 mg tablet 2024 025 [facility] [address] [place] [address], [id number], 08/10/2024 15:05:18 nystati n 100,000 unit/mL oral suspens ion 2023 024 [facility], [address] [place] [address], [address], 05/10/2024 16:22:57 nystati n 100,000 unit/mL oral suspens ion 2023 024 [facility] [address] [place] [address], [address], 04/21/2024 14:42:09 Patient TargetsNo targets recorded. Patient InstructionsNo instructions recorded. Reason for Referral Appt 05/26 @ 8:30am Referring Physician: Eneida Mccall Otolaryngology, Encounter Date: 04/21/2024 Referring Physician: Eneida Mccall Otolaryngology, Encounter Date: 08/10/2024 Problems Name Problem SNOMED Code Status Onset Date Resolution Date Notes Provider Name and Address Organization Details Recorded Time Sensorine ural hearing loss of bilateral ears 264211177 Active 2019 Sensorine ural hearing loss, bilateral ; Note: Date Diagnosed : 02/26/2020 3:32 PM (H90.3) Note: Date Diagnosed : 02/26/2020 3:32 PM (H90.3) Not Available [facility] 00:53:14 Stomatiti s 56135459 Active 2020 Oral thrush; Note: Date Diagnosed : 04/14/2021 11:22 AM (B37.0) Not Available [facility] 4 02:18:55 Candidias is of mouth 97876196 Active 2020 Oral thrush; Note: Date Diagnosed : 04/14/2021 11:22 AM (B37.0) Not Available [facility] 4 02:18:55 Gastroeso phageal reflux disease without esophagit is 273137995 Active 2015 Gastro-es ophageal reflux disease without esophagit is; Note: Date Diagnosed : 07/22/2015 2:46 PM (K21.9) Not Available [facility] 4 02:19:18 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, unilatera l; Note: Date Diagnosed : 12/12/2019 3:31 PM (J38.01) Not Available [facility] 4 02:18:19 Dysphagia 39786196 Active 2022 Dysphagia , unspecifi ed; Note: Date Diagnosed : 10/27/2021 12:05 PM (R13.10) ; Start Date : 2 Other dysphagia ; Note: Date Diagnosed : 04/07/2023 1:44 PM (R13.19) Not Available [facility] 4 02:19:19 Benign paroxysma l positiona l vertigo 430680918 Active 2019 Benign paroxysma l vertigo, left ear; Note: Date Diagnosed : 02/26/2020 3:32 PM (H81.12) Not Available [facility] 4 02:18:20 Cough 21938038 Active 2015 Cough, unspecifi ed; Note: Changed from R05 to R05.9 ( 2 2:10 PM) , Date Diagnosed : 09/04/2015 3:10 PM (R05) Not Available [facility] 4 02:19:08 Oropharyn geal dysphagia 54526640 Active 2023 Dysphagia , oropharyn geal phase; Note: Date Diagnosed : 09/16/2023 1:19 PM (R13.12) Not Available [facility] 02:19:08 Hemoptysi s 33945507 Active 2023 ENEIDA MCCALL MD [address] [facility],[place] [address], [facility] [place], [address] , [place] [facility] 14:33:59 Chronic sore throat 239773580 Active 2023 ENEIDA MCCALL MD [address] [place] [address],[place] [address], [place], [address] , [place] - [facility] 14:34:04 Chronic hoarsenes s 55375098968 05 Active 2023 ENEIDA MCCALL MD [address] [place] [address],[place] [address], [facility] [place], [address] , [facility] 14:42:59 Problem Notes None recorded. Procedures Surgical History Date Name Laterality Status Provider Name and Address Organization Details Recorded Time 08/10/19 25 FFL_RE completed ENEIDA MCCALL MD [address] [place] [address],[place] [address], [place], [address], [place] - [facility] 08/10/2024 15:02:15 04/21/20 24 FFL_RE completed ENEIDA MCCALL MD [address] [place] [address],[place] [address], [place], [address], [facility] - [facility] 04/21/2024 14:41:39 transurethral prostatectomy completed Bibi Neal [place] - [facility] 05/10/2024 14:05:40 subtotal thyroidectomy completed Bibi Neal [place] - [facility] 05/10/2024 14:05:53 Imaging Results None recorded. Procedure Notes None recorded. Medical Equipment None Reported. Allergies No known drug allergies Medications Name Sig Start Date Stop Date Status Note LastModified by Organization Details LastModified Time losartan 50 mg tablet 05/06 completed Medicati on ID: [id number] B rand Name: losartan Send Method: E-Prescr [...] gram tablet 05/06 completed Medicati on ID: [id number] D uration Value: 7 Brand Name: valacycl [...] mucosal jelly 05/10 completed Medicati on ID: [id number] D uration Value: 14 Brand Name: lidocain [...] mg capsule 05/06 completed Medicati on ID: [id number] D uration Value: 90 Brand Name: tamsulos in Send Method: E-Prescr ibed Sub s Allowed: subs [place] Speci al Instruct ion: TAKE ONE CAPSULE DAILY Me dication GenericN jay: tamsulos in Not Available Not Available Not Available pantopraz ole 40 mg tablet,de layed release 07/12 completed Medicati on ID: [id number] D uration Value: 30 Brand Name: pantopra [...] by mouth 07/12 completed Medicati on ID: [id number] D uration Value: 30 Prescri bed By [...] oral powder 05/10 completed Medicati on ID: [id number] D uration Value: 30 Brand Name: polyethy [...] layed release 12/11 completed Medicati on ID: [id number] P devonte d By Name: Trevon Gee [...] both nostrils 10/17 completed Medicati on ID: [id number] P rescribe d By Name: Trevon Gee rd, nd Name: Flonase Allergy Relief S end Method: E-Prescr ibed Sub s Allowed: subs [place] Medic ationGen ericName : Flonase Allergy Relief Not Available Not Available Not Available Vitals Date Recorded Body height Body mass index (BMI) Body weight Provider Name and Address Organization Details Last Updated DateTime 04/21/2024 167.64 cm 27 kg/m2 67422.93 g Aakash Wevaer [place] - [facility] 04/21/2024 14:00:43 Date Recorded Body height Body weight Provider Name and Address Organization Details Last Updated DateTime 05/10/2024 167.64 cm 85003.93 g Bibi Neal [place] [facility] 05/10/2024 14:01:54 Date Recorded Body height Provider Name an d Address Organization Details Last Updated DateTime 08/10/2024 167.64 cm Aaksah Weaver [facility] 08/10/2024 14:29:36 Social History None recorded. Functional Status None recorded. Mental Status None recorded. Family History Nothing Reported. Medical History Condition Response Hypertension Y Sleep Disorder Y GERD/Reflux Y Past Encounters Encounter ID Performer Location Encounter Start Date Encounter Closed Date Diagnosis/Indication Diagnosis SNOMED-CT Code Diagnosis ICD10 Code Diagnosis Note [id number] ENEIDA MCCALL MD [facility] [address] [address] 04/21/2024 13:44:06 04/21/2024 15:41:33 Hemoptysis 97375068 R04.2 resolved. laryngosco py negative today for bleeding Chronic sore throat 2754 03643 J31.2 likely due to thrush. Gastroesop hageal reflux disease without esophagitis 872081555 K21.9 continue esomeprazo le Candidiasis of mouth 797 61821 B37.0 FFL notable for montez in base of tongue. LIkely secondary to steroid inhalers. Will treat with nystatin. I asked him to call if not improved. No tumors on laryngosoc py. Chronic hoarseness 06069 03712 105 R49.0 will make voice therapy referral to [facility] [id number] VELASQUEZ GONZALEZ MD [facility] [address] [place] [address] 05/10/2024 13:45:35 05/10/2024 15:10:38 Candidiasis of mouth 87449251 B37.0 Chronic hoarseness 50966 67598 105 R49.0 Chronic sore throat 2754 46539 J31.2 Gastroesop hageal reflux disease without esophagitis 168284022 K21.9 [id number] ENEIDA MCCALL MD [facility] 100 [facility] [place] [address] 08/10/2024 13:56:29 08/10/2024 15:05:58 Chronic sore throat 166964178 J31.2 no evidence of thrush. he has breakthrou gh heartburn and I think the soreness is due to LPR. I will add dual therapy for reflux with famotidine in addition to his PPI. Gastroesop hageal reflux disease without esophagitis 819039048 K21.9 begin dual thearpy Candidiasis of mouth 797 53925 B37.0 resolved Chronic hoarseness 91337 93599 105 R49.0 will make voice therapy referral to [facility] since he could not be seen at [facility], gave reassuranc e no vocal cord lesions. Health Concerns Section Related Observation LastModified by Organization Detai ls LastModified Time None Recorded Concern Status LastModified by Organization Details LastModified Time None Recorded Advance Directives Directive None Recorded Payers Encounter Date Sequence Insurance Name Policy Number Policy Ayala Covered Member ID Ayala Member ID Guarantor Name 04/21/2024 1 [facility] Laina Lewis [id number] Laina Lewis 05/10/2024 1 [facility] Laina Lewis [id number] Laina Lewis 08/10/2024 1 [facility] Laina Lewis [id number] Laina Lewis Notes Date Note Type Note [...] in September 2020. ENEIDA MCCALL MD 100 [facility] [address], [address], [place] [facility] 04/21/2024 14:43:45 05/10/2024 text/html 68-year-old male [...] [place]. Normal MBS. VELASQUEZ QUINTERO MD 100 [facility] [address], [place], [address], [place] [facility] 05/11/2024 12:34:14 08/10/2024 text/html He has [...] FOL in September 2020. ENEIDA MCCALL MD [address] [place] [address], [place], [address], [place] [facility] 08/10/2024 15:05:10
--- OUTSIDE RECORDS SUMMARY | 2024-09-14 18:16 | XMS_ITS | Encounter Summary ---
Author Organization [facility] Address [address] [place] [address] Care Team Providers Care Associate Professor Of Physics Name Role Phone Brett Velásquez MD Primary Care Provider Keisha Luna MD Primary Care Provider [phone] Brett Velásquez MD Primary Care Provider Reilly Stewart MD, PHD Unavailable Unava ilable Brett Velásquez MD Primary Care Provider Wayne Dickson Primary Care Provider [phone] Dafne Hilton MD Unavailable [phone] Desi Swenson NP Unavailable [phone] Encounter Details Date Type Department Care Team Description 04/29/2012 Photographer Apprentice Lithographic Report Medical Records [address] [place] [id number] Shaquille Chandra Social History Tobacco Use Types [...] Date Type Specialty Care Team Description 04/29/2027 Photographer Apprentice Lithographic Report Abstract, Provider documented as of this encounter Visit Diagnoses Not on filedocumented in this encounter Care Teams Associate Professor Of Physics Relationship Specialty Start Date End Date Brett Velásquez MD PCP - General Internal Medicine 10/29/11 06/19/15 Keisha Chavez MD [address] [place] [address] PCP - General Internal Medicine 06/20/15 04/20/16 Brett Velásquez MD PCP - General Internal Medicine 04/21/16 01/25/22 Brett Velásquez MD PCP - General Internal Medicine 01/26/22 02/15/22 Wayne Jaimes [address] [place] [address] PCP - General Internal Medicine 02/16/22 Reilly Baker MD, PHD [address] [place] [address] Surgeon Neurosurgery 01/20/22 Dafne Hilton MD [address] [place] [address] Specialist Cardiology 10/13/22 Desi Swenson NP [address] [place] [address] Cardiology 02/29/24 documented as of this encounter
--- OUTSIDE RECORDS SUMMARY | 2024-09-14 18:16 | XMS_ITS | Encounter Summary ---
Author Organization [facility] Address [address] [place] [address] Care Team Providers Care Time Study Clerk Name Role Phone Brett Velásquez MD Primary Care Provider Keisha Luna MD Primary Care Provider [phone] Brett Velásquez MD Primary Care Provider Reilly Stewart MD, PHD Unavailable Unava ilBrett Bailon MD Primary Care Provider Wayne Dickson Primary Care Provider [phone] Danfe Hilton MD Unavailable [phone] Desi Swenson NP Unavailable [phone] Encounter Details Date Type Department Care Team Description 02/06/2015 Plc Engineer Report Medical Records [address] [place] [address] [facility] [address] [place] [address] Social History Tobacco Use Types Packs/Day Years [...] Date Type Specialty Care Team Description 04/29/2027 Plc Engineer Report Abstract, Provider documented as of this encounter Visit Diagnoses Not on filedocumented in this encounter Care Teams Time Study Clerk Relationship Specialty Start Date End Date Brett Velásquez MD PCP - General Internal Medicine 10/29/11 06/19/15 Keisha Chavez MD [address] [place], [place] [address] PCP - General Internal Medicine 06/20/15 04/20/16 Brett Velásquez MD PCP - General Internal Medicine 04/21/16 01/25/22 Brett Velásquez MD PCP - General Internal Medicine 01/26/22 02/15/22 Wayne Jaimes [address] [place] [address] PCP - General Internal Medicine 02/16/22 Reilly Baker MD, PHD [address] [place] [address] Surgeon Neurosurgery 01/20/22 Dafne Hilton MD [address] [place] [address] Specialist Cardiology 10/13/22 Desi Swenson NP [address] [place] [address] Cardiology 02/29/24 documented as of this encounter
--- OUTSIDE RECORDS SUMMARY | 2024-09-14 18:16 | XMS_ITS | Encounter Summary ---
Author Organization [facility] Address [address] [place] [address] Care Team Providers Care Cleaning Attendant Name Role Phone Brett Velásquez MD Primary Care Provider Keisha Luna MD Primary Care Provider [phone] Brett Velásquez MD Primary Care Provider Reilly Stewart MD, PHD Unavailable [facility] hospitalBrett Bailon MD Primary Care Provider Wayne Dickson Primary Care Provider [phone] Dafne Hilton MD Unavailable [phone] Desi Swenson NP Unavailable [phone] Reason for Visit * Reason Onset Date Comments My Chart Appointment 02/04/2015 Encounter Details Date Type Department Care Team Description 02/04/2015 Telephone Adult Medicine [address] [address] Brett Velásquez MD My Chart Appointment Social [...] Date Type Specialty Care Team Description 04/29/2027 President/G[employer] Production & Live Experiences Report Abstract, Provider documented as of this encounter Visit Diagnoses Not on filedocumented in this encounter Care Teams Cleaning Attendant Relationship Specialty Start Date End Date Brett Velásquez MD PCP - General Internal Medicine 10/29/11 06/19/15 Keisha Chavez MD [address] [place] [address] PCP - General Internal Medicine 06/20/15 04/20/16 Brett Velásquez MD PCP - General Internal Medicine 04/21/16 01/25/22 Brett Velásquez MD PCP - General Internal Medicine 01/26/22 02/15/22 Wayne Jaimes [address] [place] [address] PCP - General Internal Medicine 02/16/22 Reilly Baker MD, PHD [address] [place] [address] Surgeon Neurosurgery 01/20/22 Dafne Hilton MD [address] [place] [address] Specialist Cardiology 10/13/22 Desi Swenson NP [address] [place] [address] Cardiology 02/29/24 documented as of this encounter
--- OUTSIDE RECORDS SUMMARY | 2024-09-14 18:16 | XMS_ITS | Encounter Summary ---
Author Organization [facility] Address [address] [place] [address] Care Team Providers Care Biopsychologist Name Role Phone Brett Velásquez MD Primary Care Provider Keisha Luna MD Primary Care Provider [phone] Brett Velásquez MD Primary Care Provider Reilly Stewart MD, PHD Unavailable Unava riBrett Bailon MD Primary Care Provider Wayne Dickson Primary Care Provider [phone] Dafne Hilton MD Unavailable [phone] Desi Swenson NP Unavailable [phone] Encounter Details Date Type Department Care Team Description 03/31/2012 Pt. Non Urgent Medic al Question Adult Medicine [address] [address] Brett Velásquez MD Social History Tobacco Use Types Packs/Day Years Used Date Smoking Tobacco: Never Smokeless Tobacco: Never Alcohol Use Standard Drinks/Week Comments No 0 (1 standard drink = 0.6 oz pur e alcohol) Sex Assigned at Date Recorded Not on file Job Start Date Occupation Industry Not on file Not on file Not on file documented as of this encounter Progress Notes * [place] Roman L.P.N. - 04/01/2012 9:08 AM EDTFrom: ADDIE LEWIS To: Brett Velásquez MD Sent: [facility] Mar 31, 2012 10:14 PM Subject: ask about test result of urinalysis I saw a test result of urinalysis. 1.protein, urine: my value is 30, standard range is <=trace 2.glucose, urine(ua): my value is 100,standard is negative what is a problem above test result? what do I need for health? how can I next step? documented in this encounter Plan of Treatment Upcoming Encounters Date Type Specialty Care Team Description 04/29/2027 Customer Service Security Officer Report Abstract, Provider documented as of this encounter Visit Diagnoses Not on filedocumented in this encounter Care Teams Biopsychologist Relationship Specialty Start Date End Date Brett Velásquez MD PCP - General Internal Medicine 10/29/11 06/19/15 Keisha Chavez MD [address] [place] [address] PCP - General Internal Medicine 06/20/15 04/20/16 Brett Velásquez MD PCP - General Internal Medicine 04/21/16 01/25/22 Brett Velásquez MD PCP - General Internal Medicine 01/26/22 02/15/22 Wayne Jaimes [address] [place] [address] PCP - General Internal Medicine 02/16/22 Reilly Baker MD, PHD [address] [place] [address] Surgeon Neurosurgery 01/20/22 Dafne Hilton MD [address] [place] [address] Specialist Cardiology 10/13/22 Desi Swenson NP [address] [place] [address] Cardiology 02/29/24 documented as of this encounter
--- OUTSIDE RECORDS SUMMARY | 2024-09-14 18:16 | XMS_ITS | Encounter Summary ---
Author Organization [facility] Address [address] [place] [address] Care Team Providers Care Family Medicine Physician Name Role Phone Brett Velásquez MD Primary Care Provider Keisha Luna MD Primary Care Provider [phone] Brett Velásquez MD Primary Care Provider Reilly Stewart MD, PHD Unavailable Unava ilable Brett Velásquez MD Primary Care Provider Wayne Dickson Primary Care Provider [phone] Dafne Hilton MD Unavailable [phone] Desi Swenson NP Unavailable [phone] Encounter Details Date Type Department Care Team Description 05/17/2012 Heavy Duty Truck Mechanic Report Medical Records [address] [place] [address] Shaquille Chandra Social History Tobacco Use Types [...] Date Type Specialty Care Team Description 04/29/2027 Heavy Duty Truck Mechanic Report Abstract, Provider documented as of this encounter Visit Diagnoses Not on filedocumented in this encounter Care Teams Family Medicine Physician Relationship Specialty Start Date End Date Brett Velásquez MD PCP - General Internal Medicine 10/29/11 06/19/15 Keisha Chavez MD [address] [place] [address] PCP - General Internal Medicine 06/20/15 04/20/16 Brett Velásquez MD PCP - General Internal Medicine 04/21/16 01/25/22 Brett Velásquez MD PCP - General Internal Medicine 01/26/22 02/15/22 Wayne Jaimes [address] [place] [address] PCP - General Internal Medicine 02/16/22 Reilly Baker MD, PHD [address] [place] [address] Surgeon Neurosurgery 01/20/22 Dafne Hilton MD [address] [place] [address] Specialist Cardiology 10/13/22 Desi Swenson NP [address] [place] [address] Cardiology 02/29/24 documented as of this encounter
--- OUTSIDE RECORDS SUMMARY | 2024-09-14 18:16 | XMS_ITS | Encounter Summary ---
Author Organization [facility] Address [address] [place] [address] Care Team Providers Care Video Intern Name Role Phone Brett Velásquez MD Primary Care Provider Keisha Luna MD Primary Care Provider [phone] Brett Velásquez MD Primary Care Provider Reilly Stewart MD, PHD Unavailable Unava ilBrett Bailon MD Primary Care Provider Wayne Dickson Primary Care Provider [phone] Dafne Hilton MD Unavailable [phone] Desi Swenson NP Unavailable [phone] Encounter Details Date Type Department Care Team Description 04/01/2015 Ed Special Education Teacher Report Medical Records [address] [place] [address] Olivia Harris MD [address] [place] [address] [address] [place] [address] Social History Tobacco Use Types Packs/Day Years [...] Date Type Specialty Care Team Description 04/29/2027 Ed Special Education Teacher Report Abstract, Provider documented as of this encounter Visit Diagnoses Not on filedocumented in this encounter Care Teams Video Intern Relationship Specialty Start Date End Date Brett Velásquez MD PCP - General Internal Medicine 10/29/11 06/19/15 Keisha Chavez MD [address] [place] [address] PCP - General Internal Medicine 06/20/15 04/20/16 Brett Velásquez MD PCP - General Internal Medicine 04/21/16 01/25/22 Brett Velásquez MD PCP - General Internal Medicine 01/26/22 02/15/22 Wayne Jaimes [address] [place] [address] PCP - General Internal Medicine 02/16/22 Reilly Baker MD, PHD [address] [place] [address] Surgeon Neurosurgery 01/20/22 Dafne Hilton MD [address] [place] [address] Specialist Cardiology 10/13/22 Desi Swenson NP [address] [place] [address] Cardiology 02/29/24 documented as of this encounter
--- OUTSIDE RECORDS SUMMARY | 2024-09-14 18:16 | XMS_ITS | Clinical Summary ---
Author Organization [address] [facility] Address [address] [place] [address] Phone Care Team Providers Care Non Licensed Operator Name Role Phone Wayne Jaimes MD Primary Care Provider [phone] Allergies No known active allergies Medications bisacodyL [...] Dizziness 04/30/2023 Coronary artery disease invo lving [place] coronary artery of [place] heart with angina pectoris 12/17/2022 ST elevation [...] Description 08/08/2024 12:45 PM EST Anesthesia Event [facility] [address] [place] [address] Bolivar Palmer MD 08/08/2024 11:38 AM EST - 08/08/2024 11:59 PM EST Hospital Encounter [facility] [address] [place] [address] Vladislav Antunez DO Chang, Daniel J, MD Radiculopathy, lumbar region Discharge Disposition: Home or Self Care 08/08/2024 6:21 AM EST - 08/08/2024 11:59 PM EST Hospital Encounter [facility] Xray [address] [place] [phone] Pain Discharge Disposition: Home or Self Care 07/13/2024 Telephone [facility] Cardiology [address] [place] [address] [place] [phone] Wayne Jaimes MD Medical Records from Last [...] fracture repair UPPER GASTROINTESTINAL ENDOSCOPY 01/13/2017 PROCEDURE: OR UPPER GI ENDOSCOPY PERFORMED; COMMENT: normal UPPER GASTROINTESTINAL ENDOSCOPY 03/08/12 PROCEDURE: OR UPPER GI ENDOSCOPY PERFORMED; COMMENT: normal OTHER [...] Dr. Bell UPPER GASTROINTESTINAL ENDOSCOPY 09/17/2020 PROCEDURE: OR UPPER GI ENDOSCOPY PERFORMED; COMMENT: Normal findings. [...] loose stools Coronary artery disease invo lving [place] coronary artery of [place] heart with angina pectoris (CMS/HCC) 12/17/2022 DX:Coronary artery dise ase involving [place] coronary artery of [place] heart with angina pectoris (HCC) Esophageal dysmotility DX:Esopha geal dysmotility Gastritis DX:Gastritis Dysphagia DX:Dysphagia Esophageal dysmotility DX:Esopha geal dysmotility Colon polyps DX:Colon polyps History of [place] (myocardial infarction) DX:History of [place] (myocardial infarction) Hyperlipidemia 03/06/2024 DX:Hyperlipidemi a JENNIFER [...] 8:30 AM EDT Office Visit Adult Medicine [address] [address] Alice Schreiber PA [address] [place] [address] 10/04/2024 3:30 PM EDT Office Visit Orthopedic Surgery - [address] [facility] [address] [place] [address] Wen Herrmann NP 175 [facility] [address] [place] [address] 11/15/2024 3:15 PM EDT Office Visit Nephrology [facility] [address] [place] [address] Eduard Mccormick MD [address] [facility] [address] [place] [address] Health Maintenance Due Date Last Done Comments [...] HEALTHCARE MEDICARE MEDICAID - [place] Care Teams Non Licensed Operator Relationship Specialty Start Date End Date Wayne Jaimes MD [address] [place] [address] PCP - General Internal Medicine 02/16/22
--- OUTSIDE RECORDS SUMMARY | 2024-09-14 18:17 | XMS_ITS | Encounter Summary ---
Author Organization [facility] Address [address] [place] [address] Care Team Providers Care Ultrasound Coordinator Name Role Phone Brett Velásquez MD Primary Care Provider Reilly Stewart MD, PHD Unavailable Unava Brett Villegas MD Primary Care Provider Wayne Dickson Primary Care Provider [phone] Dafne Hilton MD Unavailable [phone] Desi Swenson NP Unavailable [phone] Encounter Details Date Type Department Care Team Description 06/25/2020 Cigar Tobacco Rehandler Report Medical Records [address] [place] [address] Zuleika Baez PA-C Social History Tobacco Use [...] Date Type Specialty Care Team Description 04/29/2027 Cigar Tobacco Rehandler Report Abstract, Provider documented as of this encounter Visit Diagnoses Not on filedocumented in this encounter Care Teams Ultrasound Coordinator Relationship Specialty Start Date End Date Brett Velásquez MD PCP - General Internal Medicine 04/21/16 01/25/22 Brett Velásquez MD PCP - General Internal Medicine 01/26/22 02/15/22 Wayne Jaimes [address] [place] [address] PCP - General Internal Medicine 02/16/22 Reilly Baker MD, PHD Surgeon Neurosurgery 01/20/22 Dafne Hilton MD [address] [place] [address] Specialist Cardiology 10/13/22 Desi Swenson NP [address] [place] [address] Cardiology 02/29/24 documented as of this encounter
--- OUTSIDE RECORDS SUMMARY | 2024-09-14 18:17 | XMS_ITS | Encounter Summary ---
Author Organization [facility] Address [address] [place] [address] Care Team Providers Care Numerical Control Operator Name Role Phone Reilly Baker MD, PHD Unavailable Brett España MD Primary Care Provider MindivaWayne Conrad Primary Care Provider [phone] Dafne Hilton MD Unavailable [phone] Desi Swenson NP Unavailable [phone] Encounter Details Date Type Department Care Team Description 02/06/2022 [facility] Neurosurgery [place] [address] [place] [id number] Reilly Baker MD, PHD Social History Tobacco Use Types Packs/Day Years [...] suspected to have Coronavirus/COVID-19? No / Unsure 02/03/2022 7:57 AM EDT documented as of this encounter Plan of Treatment Upcoming Encounters Date Type Specialty Care Team Description 04/29/2027 Adjuster Arbitrator Report Abstract, Provider documented as of this encounter Visit Diagnoses Not on filedocumented in this encounter Care Teams Numerical Control Operator Relationship Specialty Start Date End Date Brett Velásquez MD PCP - General Internal Medicine 01/26/22 02/15/22 Wayne Jaimes [address] [place] [address] PCP - General Internal Medicine 02/16/22 Reilly Baker MD, PHD Surgeon Neurosurgery 01/20/22 Dafne Hilton MD [address] [place] [address] Specialist Cardiology 10/13/22 Desi Swensno NP [address] [place], [place] [phone] Cardiology 02/29/24 documented as of this encounter
--- OUTSIDE RECORDS SUMMARY | 2024-09-14 18:17 | XMS_ITS | Encounter Summary ---
Author Organization [facility] Address [address] [place] [address] Care Team Providers Care Car Lubricator Name Role Phone Reilly Baker MD, PHD Unavailable Unava ilable Wayne Jaimes Primary Care Provider [phone] Dafne Hilton MD Unavailable [phone] Desi Swenson NP Unavailable [phone] Encounter Details Date Type Department Care Team Description 01/04/2023 Hospital Medical Records [address] [place] [address] Vladislav Antunez DO Social History Tobacco Use [...] Date Type Specialty Care Team Description 04/29/2027 Metallographer Report Abstract, Provider documented as of this encounter Visit Diagnoses Not on filedocumented in this encounter Care Teams Car Lubricator Relationship Specialty Start Date End Date Wayne Jaimes [address] [place] [address] PCP - General Internal Medicine 02/16/22 Reilly Baker MD, PHD Surgeon Neurosurgery 01/20/22 Dafne Hilton MD [address] [place] [address] Specialist Cardiology 10/13/22 Desi Swenson NP [address] [place], [place] [id number] Cardiology 02/29/24 documented as of this encounter
--- OUTSIDE RECORDS SUMMARY | 2024-09-14 18:17 | XMS_ITS | Encounter Summary ---
Author Organization [facility] Address [address] [place] [address] Care Team Providers Care Wire Stripping Machine Operator Name Role Phone Brett Velásquez MD Primary Care Provider Reilly Stewart MD, PHD Unavailable Unava Brett Villegas MD Primary Care Provider Wayne Dickson Primary Care Provider [phone] Dafne Hilton MD Unavailable [phone] Desi Swenson NP Unavailable [phone] Encounter Details Date Type Department Care Team Description 03/31/2017 Pastoral Ministries Professor Report Medical Records [address] [place] [address] Vipin Rhoades Social History Tobacco Use Types [...] Date Type Specialty Care Team Description 04/29/2027 Pastoral Ministries Professor Report Abstract, Provider documented as of this encounter Visit Diagnoses Not on filedocumented in this encounter Care Teams Wire Stripping Machine Operator Relationship Specialty Start Date End Date Brett Velásquez MD PCP - General Internal Medicine 04/21/16 01/25/22 Brett Velásquez MD PCP - General Internal Medicine 01/26/22 02/15/22 Wayne Jaimes [address] [place] [address] PCP - General Internal Medicine 02/16/22 Reilly Baker MD, PHD Surgeon Neurosurgery 01/20/22 Dafne Hilton MD [address] [place] [address] Specialist Cardiology 10/13/22 Desi Swenson NP [address] [place] [address] Cardiology 02/29/24 documented as of this encounter
--- OUTSIDE RECORDS SUMMARY | 2024-09-14 18:17 | XMS_ITS | Encounter Summary ---
Author Organization [facility] Address [address] [place] [address] Care Team Providers Care Requirements Manager Name Role Phone Brett Velásquez MD Primary Care Provider Reilly Stewart MD, PHD Unavailable Unava Brett Villegas MD Primary Care Provider Wayne Dickson Primary Care Provider [phone] Dafne Hilton MD Unavailable [phone] Desi Swenson NP Unavailable [phone] Encounter Details Date Type Department Care Team Description 09/16/2020 Haulpak Driver Report Medical Records [address] [place] [address] Zuleika Baez PA-C Social History Tobacco Use [...] Date Type Specialty Care Team Description 04/29/2027 Haulpak Driver Report Abstract, Provider documented as of this encounter Visit Diagnoses Not on filedocumented in this encounter Care Teams Requirements Manager Relationship Specialty Start Date End Date Brett Velásquez MD PCP - General Internal Medicine 04/21/16 01/25/22 Brett Velásquez MD PCP - General Internal Medicine 01/26/22 02/15/22 Wayne Jaimes [address] [place] [address] PCP - General Internal Medicine 02/16/22 Reilly Baker MD, PHD Surgeon Neurosurgery 01/20/22 Dafne Hilton MD [address] [place] [address] Specialist Cardiology 10/13/22 Desi Swenson NP [address] [place] [address] Cardiology 02/29/24 documented as of this encounter
--- OUTSIDE RECORDS SUMMARY | 2024-09-14 18:17 | XMS_ITS | Encounter Summary ---
Author Organization [facility] Address [address] [place] [address] Care Team Providers Care Director Of Hemophilia Name Role Phone Reilly Baker MD, PHD Unavailable Unava ilable Wayne Jaimes Primary Care Provider [phone] Dafne Hilton MD Unavailable [phone] Desi Swenson NP Unavailable [phone] Encounter Details Date Type Department Care Team Description 09/07/2022 Area Field Worker Report Medical Records [address] [place] [address] Vladislav Antunez DO Social History Tobacco Use [...] Date Type Specialty Care Team Description 04/29/2027 Area Field Worker Report Abstract, Provider documented as of this encounter Visit Diagnoses Not on filedocumented in this encounter Care Teams Director Of Hemophilia Relationship Specialty Start Date End Date Wayne Jaimes [address] [place], [place] [phone] PCP - General Internal Medicine 02/16/22 Reilly Baker MD, PHD Surgeon Neurosurgery 01/20/22 Dafne Hilton MD [address] [place] [address] Specialist Cardiology 10/13/22 Desi Swenson NP [address] [place], [place] [phone] Cardiology 02/29/24 documented as of this encounter
--- OUTSIDE RECORDS SUMMARY | 2024-09-14 18:17 | XMS_ITS | Encounter Summary ---
Author Organization [facility] Address [address] [place] [address] Care Team Providers Care Cisco Certified Internetwork Expert Name Role Phone Reilly Baker MD, PHD Unavailable Unava Wayne Blackman Primary Care Provider [phone] Dafne Hilton MD Unavailable [phone] Desi Swenson NP Unavailable Encounter Details Date Type Department Care Team Description 09/08/2022 Hospital Medical Records [address] [place] [address] Social History Tobacco Use Types Packs/Day Years [...] Type Specialty Care Team Description 04/29/2027 Manufacturing Engineer Report Abstract, Provider documented as of this encounter Procedures Procedure Name Priority Date/Time Associated Diagnosis Comments OUTSIDE EKG Routine 09/10/2022 OUTSIDE LAB Routine 09/10/2022 OUTSIDE LAB Routine 09/09/2022 OUTSIDE CARDIAC CATH Routine 09/08/2022 OUTSIDE EKG Routine 09/08/2022 OUTSIDE ECHO Routine 09/08/2022 OUTSIDE PLAIN FILM Routine 09/08/2022 documented in this encounter Results * OUTSIDE LAB (09/10/2022) Provider Default LAB * OUTSIDE EKG (09/10/2022) Provider Default CARDIOLOGY * OUTSIDE LAB (09/09/2022) Provider Default LAB * OUTSIDE PLAIN FILM (09/08/2022) Provider Default RADIOLOGY * OUTSIDE ECHO (09/08/2022) Provider Default CARDIOLOGY * OUTSIDE EKG (09/08/2022) Provider Default CARDIOLOGY * OUTSIDE CARDIAC CATH (09/08/2022) Provider Default CARDIOLOGY documented in this encounter Visit Diagnoses Not on filedocumented in this encounter Care Teams Cisco Certified Internetwork Expert Relationship Specialty Start Date End Date Wayne Jaimes Delmer [address] [place] [address] PCP - General Internal Medicine 02/16/22 Reilly Baker MD, PHD Surgeon Neurosurgery 01/20/22 Dafne Hilton MD [address] [place] [address] Specialist Cardiology 10/13/22 Desi Swenson NP [address] [place] [address] Cardiology 02/29/24 documented as of this encounter
--- OUTSIDE RECORDS SUMMARY | 2024-09-14 18:17 | XMS_ITS | Encounter Summary ---
Author Organization [facility] Address [address] [place] [address] Care Team Providers Care Boiler Plant Worker Name Role Phone Reilly Baker MD, PHD Unavailable Unava ilable Wayne Jaimes Primary Care Provider [phone] Dafne Hilton MD Unavailable [phone] Desi Swenson NP Unavailable [phone] Encounter Details Date Type Department Care Team Description 04/29/2022 Customer Resolution Specialist Report Medical Records [address] [place] [address] Abstract, Provider Social History Tobacco Use Types [...] Type Specialty Care Team Description 04/29/2027 Customer Resolution Specialist Report Abstract, Provider documented as of this encounter Visit Diagnoses Not on filedocumented in this encounter Care Teams Boiler Plant Worker Relationship Specialty Start Date End Date Wayne Jaimes [address] [place] [address] PCP - General Internal Medicine 02/16/22 Reilly Baker MD, PHD Surgeon Neurosurgery 01/20/22 Dafne Hilton MD [address] [place], [place] [phone] Specialist Cardiology 10/13/22 Desi Swenson NP [address] [place] [address] Cardiology 02/29/24 documented as of this encounter
--- OUTSIDE RECORDS SUMMARY | 2024-09-14 18:17 | XMS_ITS | Encounter Summary ---
Author Organization [facility] Address [address] [place] [address] Care Team Providers Care Behavioral Science Chair Name Role Phone Brett Velásquez MD Primary Care Provider Keisha Luna MD Primary Care Provider [phone] Brett Velásquez MD Primary Care Provider Reilly Stewart MD, PHD Unavailable Unava ilable Brett Velásquez MD Primary Care Provider Wayne Dickson Primary Care Provider [phone] Dafne Hilton MD Unavailable [phone] Desi Swenson NP Unavailable [phone] Encounter Details Date Type Department Care Team Description 01/04/2013 Dairy Feed Mixing Operator Report Medical Records [address] [place] [address] Iron Barnett Social History Tobacco Use Types [...] Type Specialty Care Team Description 04/29/2027 Dairy Feed Mixing Operator Report Abstract, Provider documented as of this encounter Visit Diagnoses Not on filedocumented in this encounter Care Teams Behavioral Science Chair Relationship Specialty Start Date End Date Brett Velásquez MD PCP - General Internal Medicine 10/29/11 06/19/15 Keisha Chavez MD [address] [place] [address] PCP - General Internal Medicine 06/20/15 04/20/16 Brett Velásquez MD PCP - General Internal Medicine 04/21/16 01/25/22 Brett Velásquez MD PCP - General Internal Medicine 01/26/22 02/15/22 Wayne Jaimes [address] [place], [place] [phone] PCP - General Internal Medicine 02/16/22 Reilly Baker MD, PHD [address] [place] [address] Surgeon Neurosurgery 01/20/22 Dafne Hilton MD [address] [place] [address] Specialist Cardiology 10/13/22 Desi Swenson NP [address] [place] [address] Cardiology 02/29/24 documented as of this encounter
--- OUTSIDE RECORDS SUMMARY | 2024-09-14 18:17 | XMS_ITS | Encounter Summary ---
Author Organization [facility] Address [address] [place] [address] Care Team Providers Care Direct Support Professional Home Health Name Role Phone Reilly Baker MD, PHD Unavailable Unava ilable Wayne Jaimes Primary Care Provider [phone] Dafne Hilton MD Unavailable [phone] Desi Swenson NP Unavailable [phone] Encounter Details Date Type Department Care Team Description 02/18/2022 Hospital Medical Records [address] [place] [address] Yuliana Auguste MD [address] [place] [address] Social History Tobacco Use Types Packs/Day Years [...] Date Type Specialty Care Team Description 04/29/2027 Graphic Arts Technician Report Abstract, Provider documented as of this encounter Visit Diagnoses Not on filedocumented in this encounter Care Teams Direct Support Professional Home Health Relationship Specialty Start Date End Date Wayne Jaimes [address] [place] [address] PCP - General Internal Medicine 02/16/22 Reilly Baker MD, PHD Surgeon Neurosurgery 01/20/22 Dafne Hilton MD [address] [place] [address] Specialist Cardiology 10/13/22 Desi Swenson NP [address] [place] [address] Cardiology 02/29/24 documented as of this encounter
--- OUTSIDE RECORDS SUMMARY | 2024-09-14 18:17 | XMS_ITS | Encounter Summary ---
Author Organization [facility] Address [address] [facility] [place] [address] Care Team Providers Care Set Off Press Operator Name Role Phone Keisha Chavez MD Primary Care Provider [phone] Brett Velásquez MD Primary Care Provider Reilly Stewart MD, PHD Unavailable Unapa ilBrett Bailon MD Primary Care Provider Wayne Dickson Primary Care Provider [phone] Dafne Hilton MD Unavailable [phone] Desi Swenson NP Unavailable [phone] Encounter Details Date Type Department Care Team Description 11/05/2015 Release of Information Medical Records [address] [place] [address] Abstract, Provider Social History Tobacco Use Types [...] Date Type Specialty Care Team Description 04/29/2027 Marine Electrician Report Abstract, Provider documented as of this encounter Visit Diagnoses Not on filedocumented in this encounter Care Teams Set Off Press Operator Relationship Specialty Start Date End Date Keisha Chavez MD [address] [place] [address] PCP - General Internal Medicine 06/20/15 04/20/16 Brett Velásquez MD [address] [place] [address] PCP - General Internal Medicine 04/21/16 01/25/22 Brett Velásquez MD [address] [place] [address] PCP - General Internal Medicine 01/26/22 02/15/22 Wayne Jaimes [address] [place] [address] PCP - General Internal Medicine 02/16/22 Reilly Baker MD, PHD [address] [place] [address] Surgeon Neurosurgery 01/20/22 Dafne Hilton MD [address] [place] [address] Specialist Cardiology 10/13/22 Desi Swenson NP [address] [place] [address] Cardiology 02/29/24 documented as of this encounter
--- OUTSIDE RECORDS SUMMARY | 2024-09-14 18:17 | XMS_ITS ---
Author Organization [facility] Address [address] [facility] [address] [place] [address] Care Team Providers Care Pipe Organ Mechanic Name Role Phone Wayne Jaimes MD Primary Care Provider DESI Burks Unavailable [phone] Allergies No Known Allergies REASON FOR VISIT [...] Not-Taking Diclofenac Sodium 1 % as directed C Python Developer ally place 1 g onto the [...] Orally Once a day Active Vital Signs Temperature 97.3 degrees Fahrenheit 12/24/19 24 Heart Rate 62 /min 12/24/2023 Respiratory Rate 12 /min 12/24/2023 Height 5ft 6in in 12/24/2023 Weight 146.7 lbs 12/24/2023 BMI 23.68 kg/m2 12/24/2023 Procedures Procedure Date Ordered Date Performed Result Body Sit e DRAIN/INJECT, SMALL JOINT/BURSA 12/24/2023 N/A Encounters Encounter Location Date Provider Diagnosis [facility] [address] [facility] [address] [place] [address] 12/24/2023 DESI LI Onychomycosis B35.1 ; Calcium [...] 30 days Efinaconazole 10 % 1 application C Python Developer ally Once a day for 90 [...] Name:DESI LI, 10/11/2024 02:45:00 PM, [address] [facility] [address], [place], [address], Medications Administered Medication Instructions Date of Administration Dosage Notes dexAMETHasone Sod Phosphate PF 12/24/2023 0.5 m L Kenalog 12/24/2023 0.5 mL Progress Notes * Mckinley LEWISOB:1955 ([age] yo M)Acc No.[id number]:12/24/2023 Progress Note Patient:?Laina LEWIS Provider:?Desi Li DPM :1955???Age:68 Y???Sex:Male Nael e:12/24/2023 Address:[address] [place], [place] [address] Pcp:Wayne Jaimes MD Subjective: * Chief Complaints: [...] bilaterally, protective sensation intact 10/10 with 5.07 [place] Alisha bilaterally, vibratory sensation with tuning fork [...] RT J1100 INJ DEXAMETHASONE SODIM PHOSHATE 1 [id number] INJ TRIAMCINOLONE ACETONIDE 10 MG * Follow Up:?3 Months * Billing Information: * Visit Code:? 44040 Office Visit, Est Pt., Level 3. Modifiers: 25 * Procedure Codes:? DRAIN/INJECT, SMALL JOINT/BURSA. Modifiers: RT J1100 INJ DEXAMETHASONE SODIM PHOSHATE 1 MG. J3301 INJ TRIAMCINOLONE ACETONIDE 10 MG. * Sign off status: Completed true * Provider:?Desi Li DPM Date:? 12/24/2023 Generated for Tatiana lema/Nilsa/eTransmitting on:?09/14/2024 06:17 PM EST History and Physical Notes * [...] bilaterally, protective sensation intact 10/10 with 5.07 [place] Alisha bilaterally, vibratory sensation with tuning fork [...]
--- OUTSIDE RECORDS SUMMARY | 2024-09-14 18:17 | XMS_ITS | Encounter Summary ---
Author Organization [facility] Address [address] [place] [address] Care Team Providers Care Health Care Coordinator Name Role Phone Reilly Baker MD, PHD Unavailable Unava ilable Wayne Jaimes Primary Care Provider [phone] Dafne Hilton MD Unavailable [phone] Desi Swenson NP Unavailable [phone] Encounter Details Date Type Department Care Team Description 07/01/2022 It Trainer Report Medical Records [address] [place] [address] Maxwell Gordon MD Social History Tobacco Use [...] Date Type Specialty Care Team Description 04/29/2027 It Trainer Report Abstract, Provider documented as of this encounter Visit Diagnoses Not on filedocumented in this encounter Care Teams Health Care Coordinator Relationship Specialty Start Date End Date Wayne Jaimes [address] [place] [address] PCP - General Internal Medicine 02/16/22 Reilly Baker MD, PHD Surgeon Neurosurgery 01/20/22 Dafne Hilton MD [address] [place] [address] Specialist Cardiology 10/13/22 Desi Swenson NP [address] [place] [address] Cardiology 02/29/24 documented as of this encounter
--- OUTSIDE RECORDS SUMMARY | 2024-09-14 18:17 | XMS_ITS | Encounter Summary ---
Author Organization [facility] Address [address] [place] [address] Care Team Providers Care Inker And Opaquer Name Role Phone Brett Velásquez MD Primary Care Provider Reilly Stewart MD, PHD Unavailable Unava ilBrett Bailon MD Primary Care Provider Wayne Dickson Primary Care Provider [phone] Dafne Hilton MD Unavailable [phone] Desi Swenson NP Unavailable [phone] Encounter Details Date Type Department Care Team Description 12/14/2017 Director Pharmacy Services Report Medical Records [address] [place] [address] Rehab., [place] Social History Tobacco Use Types Packs/Day Years [...] Type Specialty Care Team Description 04/29/2027 Director Pharmacy Services Report Abstract, Provider documented as of this encounter Visit Diagnoses Not on filedocumented in this encounter Care Teams Inker And Opaquer Relationship Specialty Start Date End Date Brett Velásquez MD PCP - General Internal Medicine 04/21/16 01/25/22 Brett Velásquez MD PCP - General Internal Medicine 01/26/22 02/15/22 Wayne Jaimes [address] [place] [address] PCP - General Internal Medicine 02/16/22 Reilly Baker MD, PHD Surgeon Neurosurgery 01/20/22 Dafne Hilton MD [address] [place] [address] Specialist Cardiology 10/13/22 Desi Swenson NP [address] [place] [address] Cardiology 02/29/24 documented as of this encounter
--- OUTSIDE RECORDS SUMMARY | 2024-09-14 18:17 | XMS_ITS | Encounter Summary ---
Author Organization [facility] Address [address] [place] [address] Care Team Providers Care Distillation Operator Helper Name Role Phone Brett Velásquez MD Primary Care Provider Reilly Stewart MD, PHD Unavailable UnaBrett Davis MD Primary Care Provider Wayne Dickson Primary Care Provider [phone] Dafne Hilton MD Unavailable [phone] Desi Swenson NP Unavailable [phone] Encounter Details Date Type Department Care Team Description 09/25/2020 Orders Only Physiatry - [address] [address] Sonny Abrams PA-C Social History Tobacco Use [...] Date Type Specialty Care Team Description 04/29/2027 Hotel Attendant Report Abstract, Provider documented as of this encounter Visit Diagnoses Not on filedocumented in this encounter Care Teams Distillation Operator Helper Relationship Specialty Start Date End Date Brett Velásquez MD PCP - General Internal Medicine 04/21/16 01/25/22 Brett Velásquez MD PCP - General Internal Medicine 01/26/22 02/15/22 Wayne Jaimes [address] [place] [address] PCP - General Internal Medicine 02/16/22 Reilly Baker MD, PHD Surgeon Neurosurgery 01/20/22 Dafne Hilton MD [address] [place] [address] Specialist Cardiology 10/13/22 Desi Swenson NP [address] [place] [address] Cardiology 02/29/24 documented as of this encounter
--- OUTSIDE RECORDS SUMMARY | 2024-09-14 18:17 | XMS_ITS | Encounter Summary ---
Author Organization [facility] Address [address] [place] [address] Care Team Providers Care Systems Integration Analyst Name Role Phone Reilly Baker MD, PHD Unavailable Unava Wayne Blackman Primary Care Provider Dafne Hilton MD Unavailable [phone] Desi Swenson NP Unavailable [phone] Encounter Details Date Type Department Care Team Description 04/07/2022 SCAN Medical Records [address] [place] [address] Abstract, Provider Social History Tobacco Use Types [...] Date Type Specialty Care Team Description 04/29/2027 Mobile Lounge Driver Report Abstract, Provider documented as of this encounter Procedures Procedure Name Priority Date/Time Associated Diagnosis Comments OUTSIDE LAB Routine 04/07/2022 documented in this encounter Results * OUTSIDE LAB (04/07/2022) Provider Default LAB documented in this encounter Visit Diagnoses Not on filedocumented in this encounter Care Teams Systems Integration Analyst Relationship Specialty Start Date End Date Wayne Jaimes [address] [place] [address] PCP - General Internal Medicine 02/16/22 Reilly Baker MD, PHD Surgeon Neurosurgery 01/20/22 Dafne Hilton MD [address] [place] [address] Specialist Cardiology 10/13/22 Desi Swenson NP [address] [place] [address] Cardiology 02/29/24 documented as of this encounter
--- OUTSIDE RECORDS SUMMARY | 2024-09-14 18:17 | XMS_ITS | Encounter Summary ---
Author Organization [facility] Address [address] [facility] [place] [address] Care Team Providers Care Wheel Polisher Name Role Phone Keisha Chavez MD Primary Care Provider [phone] Brett Velásquez MD Primary Care Provider Reilly Stewart MD, PHD Unavailable Unava ilBrett Bailon MD Primary Care Provider Wayne Dickson Primary Care Provider [phone] Dafne Hilton MD Unavailable [phone] Desi Swenson NP Unavailable [phone] Encounter Details Date Type Department Care Team Description 09/18/2015 Business Doc Medical Records [address] [place] [address] Abstract, Provider Social History Tobacco Use Types [...] Date Type Specialty Care Team Description 04/29/2027 Portrait Studio Photographer Report Abstract, Provider documented as of this encounter Visit Diagnoses Not on filedocumented in this encounter Care Teams Wheel Polisher Relationship Specialty Start Date End Date Keisha Chavez MD [address] [place] [address] PCP - General Internal Medicine 06/20/15 04/20/16 Brett Velásquez MD [address] [place] [address] PCP - General Internal Medicine 04/21/16 01/25/22 Brett Velásquez MD [address] [place] [address] PCP - General Internal Medicine 01/26/22 02/15/22 Wayne Jaimes [address] [place] [address] PCP - General Internal Medicine 02/16/22 Reilly Baker MD, PHD [address] [place] [address] Surgeon Neurosurgery 01/20/22 Dafne Hilton MD [address] [place] [address] Specialist Cardiology 10/13/22 Desi Swenson NP [address] [place] [address] Cardiology 02/29/24 documented as of this encounter
--- OUTSIDE RECORDS SUMMARY | 2024-09-14 18:17 | XMS_ITS | Encounter Summary ---
Author Organization [facility] Address [address] [place] [address] Care Team Providers Care Roaster Supervisor Name Role Phone Brett Velásquez MD Primary Care Provider Reilly Stewart MD, PHD Unavailable Unava ilBrett Bailon MD Primary Care Provider Wayne Dickson Primary Care Provider [phone] Dfane Hilton MD Unavailable [phone] Desi Swenson NP Unavailable [phone] Encounter Details Date Type Department Care Team Description 01/15/2020 [facility] Medical Records [address] [place] [address] [facility] Social History Tobacco Use Types Packs/Day [...] Date Type Specialty Care Team Description 04/29/2027 Food Assembler Commissary Kitchen Report Abstract, Provider documented as of this encounter Visit Diagnoses Not on filedocumented in this encounter Care Teams Roaster Supervisor Relationship Specialty Start Date End Date Brett Velásquez MD PCP - General Internal Medicine 04/21/16 01/25/22 Brett Velásquez MD PCP - General Internal Medicine 01/26/22 02/15/22 Wayne Jaimes [address] [place] [address] PCP - General Internal Medicine 02/16/22 Reilly Baker MD, PHD Surgeon Neurosurgery 01/20/22 Dafne Hilton MD [address] [place] [address] Specialist Cardiology 10/13/22 Desi Swenson NP [address] [place] [address] Cardiology 02/29/24 documented as of this encounter
--- OUTSIDE RECORDS SUMMARY | 2024-09-14 18:17 | XMS_ITS | Encounter Summary ---
Author Organization [employer] Address [address] [place] [address] [place] [address] Care Team Providers Care Cutter Grinder Operator Name Role Phone Unavailable Primary Care Provider Unavailabl e Encounter Details Date Type Department Care Team (Latest Contact Info) Description 01/23/2022 Abstract [facility] CONVERSIONS Dental, Provider, DDS Social History [...]
--- OUTSIDE RECORDS SUMMARY | 2024-09-14 18:17 | XMS_ITS | Encounter Summary ---
Author Organization [facility] Address [address] [place] [address] Care Team Providers Care Team Leader Name Role Phone Reilly Baker MD, PHD Unavailable Unava Wayne Blackman Primary Care Provider Dafne Hilton MD Unavailable [phone] Desi Swenson NP Unavailable Encounter Details Date Type Department Care Team Description 10/13/2022 Telephone [facility] [address] [phone] Ankita Yanes MD [address] [id number] Social History Tobacco Use Types Packs/Day Years [...] Date Type Specialty Care Team Description 04/29/2027 Coach Wirer Report Abstract, Provider documented as of this encounter Visit Diagnoses Not on filedocumented in this encounter Care Teams Team Leader Relationship Specialty Start Date End Date Wayne Jaimes [address] [place] [address] PCP - General Internal Medicine 02/16/22 Reilly Baker MD, PHD Surgeon Neurosurgery 01/20/22 Dafne Hilton MD [address] [place] [address] Specialist Cardiology 10/13/22 Desi Swenson NP [address] [place] [address] Cardiology 02/29/24 documented as of this encounter
--- OUTSIDE RECORDS SUMMARY | 2024-09-14 18:17 | XMS_ITS | Encounter Summary ---
Author Organization [facility] Address [address] [place] [address] Care Team Providers Care Foley Artist Name Role Phone Reilly Baker MD, PHD Unavailable Unava Wayne Blackman Primary Care Provider [phone] Dafne Hilton MD Unavailable [phone] Desi Swenson NP Unavailable [phone] Reason for Visit * Reason Onset Date Comments medication problems 04/27/2022 Encounter Details Date Type Department Care Team Description 04/27/2022 Telephone Gastroenterology - [place] [address] [facility] [address] [place] [address] Kevin Oliva PA-C [address] [address] medication problems Social History Tobacco Use Types [...] Type Specialty Care Team Description 04/29/2027 Chief Operator Lock Tender Report Abstract, Provider documented as of this encounter Visit Diagnoses Not on filedocumented in this encounter Care Teams Foley Artist Relationship Specialty Start Date End Date Wayne Jaimes [address] [place] [address] PCP - General Internal Medicine 02/16/22 Reilly Baker MD, PHD Surgeon Neurosurgery 01/20/22 Dafne Hilton MD [address] [place] [address] Specialist Cardiology 10/13/22 Desi Swenson NP [address] [place] [address] Cardiology 02/29/24 documented as of this encounter
--- OUTSIDE RECORDS SUMMARY | 2024-09-14 18:17 | XMS_ITS | Encounter Summary ---
Author Organization [facility] Address [address] [place] [address] Care Team Providers Care Geologist Petroleum Name Role Phone Keisha Chavez MD Primary Care Provider [phone] Brett Velásquez MD Primary Care Provider Reilly Stewart MD, PHD Unavailable Unava ilBrett Bailon MD Primary Care Provider Wayne Dickson Primary Care Provider [phone] Dafne Hilton MD Unavailable [phone] Desi Swenson NP Unavailable [phone] Encounter Details Date Type Department Care Team Description 12/25/2015 Orders Only Nephrology - [place] [address] [place] [address] Eduard Mccormick MD [address] [place] [address] Social History Tobacco Use Types Packs/Day Years [...] Date Type Specialty Care Team Description 04/29/2027 Improvement Spec Report Abstract, Provider documented as of this encounter Results * (ABNORMAL) MICROALBUMIN/CREATININE, URINE (12/25/2015 9:24 AM EDT) Pathologist [facility] CREAT,RANDOM URINE 161 mg/dL 12/25/2015 11:13 AM T [facility] MICROALBUMIN, RANDOM 111.7(H) 0.0 - 29.0 mg/L 12/25/2015 11:13 AM [facility] MICROALB/CRE RATIO RANDOM 69.3(H) <30.0 mg/g 12/25/2015 11:13 AM T [facility] 12/25/2015 9:24 AM EDT 12/25/2015 9:25 AM EDT Eduard Mccormick MD LAB Performing Organization Address [facility] Co de Phone Number [address] * 25 HYDROXY INCLUDES FRACTIONS IF PERFORMED (12/25/2015 9:24 AM EDT) [facility] 25-HYDROXY VITAMIN D TOTAL 30 30 - 80 ng/ml 12/25/2015 3:35 PM T [facility] Comment: Vitamin D Reference Ranges ??Deficiency: ? <20 ng/mL ??Insufficiency: ?20-29 ng/mL ??Optimal: ?30-80 ng/mL ??High: ? >80 ng/mL 12/25/2015 9:24 AM EDT 12/25/2015 9:25 AM EDT Eduard Mccormick MD LAB Performing Organization Address [facility] Co de Phone Number [address] * CALCIUM,TOTAL (12/25/2015 9:24 AM EDT) [facility] CALCIUM 9.2 8.5 - 10.5 mg/dL 12/25/2015 10:52 AM T [facility] 12/25/2015 9:24 AM EDT 12/25/2015 9:25 AM EDT Eduard Mccormick MD LAB Performing Organization Address [facility] Co de Phone Number [address] * ELECTROLYTE PANEL (12/25/2015 9:24 AM EDT) Sodium 142 133 - 145 mEq/L 12/25/2015 10:52 AM EDT [facility] Potassium 4.5 3.5 - 5.5 mEq/L 12/25/2015 10:52 AM EDT [facility] Chloride 103 96 - 108 mEq/L 12/25/2015 10:52 AM EDT [facility] CO2 27.9 21.0 - 32.0 mEq/L 12/25/2015 10:52 AM EDT [facility] 12/25/2015 9:24 AM EDT 12/25/2015 9:25 AM EDT Eduard Mccormick MD LAB Performing Organization Address [facility] de Phone Number [address] * CREATININE, BLOOD ASSAY (12/25/2015 9:24 AM EDT) CREAT 1.0 0.7 - 1.5 mg/dL 12/25/2015 10:52 AM EDT [facility] GFR > 60 >60 12/25/2015 10:52 AM EDT [facility] Comment: If patient is -Trinid[place], multiply result by 1.21 Chronic Kidney Disease: < 60 ml/min/1.73 square meters Kidney Failure: < 15 ml/min/1.73 square meters 12/25/2015 9:24 AM EDT 12/25/2015 9:25 AM EDT Eduard Mccormick MD LAB Performing Organization Address City/[facility] Co de Phone Number [address] * BLOOD UREA NITROGEN (BUN) (12/25/2015 9:24 AM EDT) BUN 17 5 - 25 mg/dL 12/25/2015 10:52 AM EDT [facility] 12/25/2015 9:24 AM EDT 12/25/2015 9:25 AM EDT Eduard Mccormick MD LAB [facility] [address] [place] [address] documented in this encounter Visit Diagnoses Not on filedocumented in this encounter Care Teams Geologist Petroleum Relationship Specialty Start Date End Date Keisha Chavez MD [address] [place] [address] PCP - General Internal Medicine 06/20/15 04/20/16 Brett Velásquez MD [address] [place], [place] [id number] PCP - General Internal Medicine 04/21/16 01/25/22 Brett Velásquez MD [address] [place] [address] PCP - General Internal Medicine 01/26/22 02/15/22 Wayne Jaimes [address] [place] [address] PCP - General Internal Medicine 02/16/22 Reilly Baker MD, PHD [address] [place] [address] Surgeon Neurosurgery 01/20/22 Dafne Hilton MD [address] [place] [address] Specialist Cardiology 10/13/22 Desi Swenson NP [address] [place] [address] Cardiology 02/29/24 documented as of this encounter
--- OUTSIDE RECORDS SUMMARY | 2024-09-14 18:17 | XMS_ITS | Encounter Summary ---
Author Organization [facility] Address [address] [place] [address] Care Team Providers Care Director Talent Name Role Phone Reilly Baker MD, PHD Unavailable Unava ilable Wayne Jaimes Primary Care Provider [phone] Dafne Hilton MD Unavailable [phone] Desi Swenson NP Unavailable [phone] Encounter Details Date Type Department Care Team Description 12/17/2022 SCAN Medical Records [address] [place] [address] [facility] Social History Tobacco Use Types [...] Date Type Specialty Care Team Description 04/29/2027 Storage Consultant Report Abstract, Provider documented as of this encounter Visit Diagnoses Not on filedocumented in this encounter Care Teams Director Talent Relationship Specialty Start Date End Date Wayne Jaimes [address] [place] [address] PCP - General Internal Medicine 02/16/22 Reilly Baker MD, PHD Surgeon Neurosurgery 01/20/22 Dafne Hilton MD [address] [place], [place] [address] Specialist Cardiology 10/13/22 Desi Swenson NP [address] [place], [place] [address] Cardiology 02/29/24 documented as of this encounter
--- OUTSIDE RECORDS SUMMARY | 2024-09-14 18:17 | XMS_ITS | Clinical Summary ---
Author Organization [facility] Address [address] [facility] [address] [place] [address] Phone Care Team Providers Care Dermatology Technician Name Role Phone Shelbie Upton MD Primary Care Provider [phone] Allergies No known active allergies Medications albuterol [...] to complete this topic Insurance [place]ID [place] [facility] DUAL COMPLETE ([id number]) [facility] DUAL [facility]PLE[facility] ([id number]) MEDICAID [place] Care Teams Dermatology Technician Relationship Specialty Start Date End Date Shelbie Upton MD [address] [place] [address], [address] [place], [place] [id number] PCP - General Internal Medicine 02/04/24
--- OUTSIDE RECORDS SUMMARY | 2024-09-14 18:17 | XMS_ITS | Encounter Summary ---
Author Organization [employer] Address [address] [place] [address] [place], [place] [address] Care Team Providers Care Sample Body Builder Name Role Phone Unavailable Primary Care Provider Unavailabl e Encounter Details Date Type Department Care Team (Latest Contact Info) Description 01/15/2021 Abstract [facility] CONVERSIONS Dental, Provider, DDS Social History Tobacco [...]
--- OUTSIDE RECORDS SUMMARY | 2024-09-14 18:17 | XMS_ITS | Encounter Summary ---
Author Organization [facility] Address [address] [place] [address] Care Team Providers Care Superintendent Geophysical Laboratory Name Role Phone Reilly Baker MD, PHD Unavailable Unava ilWayne Osborne Primary Care Provider Dafne Hilton MD Unavailable [phone] Desi Swenson NP Unavailable [phone] Encounter Details Date Type Department Care Team Description 09/14/2022 Refill Nephrology - [place] [address] [place] [address] Eduard Mccormick MD [address] [place] [address] Social History Tobacco Use Types Packs/Day Years [...] Date Type Specialty Care Team Description 04/29/2027 Seo Expert Report Abstract, Provider documented as of this encounter Visit Diagnoses Not on filedocumented in this encounter Care Teams Superintendent Geophysical Laboratory Relationship Specialty Start Date End Date Wayne Jaimes [place] [address] [place] [address] PCP - General Internal Medicine 02/16/22 Reilly Baker MD, PHD Surgeon Neurosurgery 01/20/22 Dafne Hilton MD [address] [place] [address] Specialist Cardiology 10/13/22 Desi Swenson NP [address] [place], [place] [phone] Cardiology 02/29/24 documented as of this encounter
--- OUTSIDE RECORDS SUMMARY | 2024-09-14 18:17 | XMS_ITS | Encounter Summary ---
Author Organization [facility] Address [address] [place] [address] Care Team Providers Care Capping Machine Operator Name Role Phone Brett Velásquez MD Primary Care Provider Keisha Luna MD Primary Care Provider [phone] Brett Velásquez MD Primary Care Provider Reilly Stewart MD, PHD Unavailable Unava ilable Brett Velásquez MD Primary Care Provider Wayne Dickson Primary Care Provider [phone] Dafne Hilton MD Unavailable [phone] Desi Swenson NP Unavailable [phone] Encounter Details Date Type Department Care Team Description 10/11/2012 Release of Information Medical Records [address] [place] [address] Abstract, Provider Social History Tobacco Use Types [...] Date Type Specialty Care Team Description 04/29/2027 Leg Assembler Report Abstract, Provider documented as of this encounter Visit Diagnoses Not on filedocumented in this encounter Care Teams Capping Machine Operator Relationship Specialty Start Date End Date Brett Velásquez MD PCP - General Internal Medicine 10/29/11 06/19/15 Keisha Chavez MD [address] [place] [address] PCP - General Internal Medicine 06/20/15 04/20/16 Brett Velásquez MD PCP - General Internal Medicine 04/21/16 01/25/22 Brett Velásquez MD PCP - General Internal Medicine 01/26/22 02/15/22 Wayne Jaimes [address] [place], [place] [address] PCP - General Internal Medicine 02/16/22 Reilly Baker MD, PHD [address] [place] [address] Surgeon Neurosurgery 01/20/22 Dafne Hilton MD [address] [place] [address] Specialist Cardiology 10/13/22 Desi Swenson NP [address] [place] [address] Cardiology 02/29/24 documented as of this encounter
--- OUTSIDE RECORDS SUMMARY | 2024-09-14 18:17 | XMS_ITS | Encounter Summary ---
Author Organization [facility] Address [address] [place] [address] Care Team Providers Care Excavating Supervisor Name Role Phone Reilly Baker MD, PHD Unavailable Unava ilable Wayne Jaimes Primary Care Provider [phone] Dafne Hilton MD Unavailable [phone] Desi Swenson NP Unavailable [phone] Encounter Details Date Type Department Care Team Description 04/19/2022 Shoemaking Finisher Report Medical Records [address] [place] [address] Ankita Mckeon NP Social History Tobacco Use [...] Date Type Specialty Care Team Description 04/29/2027 Shoemaking Finisher Report Abstract, Provider documented as of this encounter Visit Diagnoses Not on filedocumented in this encounter Care Teams Excavating Supervisor Relationship Specialty Start Date End Date Wayne Jaimes [address] [place] [address] PCP - General Internal Medicine 02/16/22 Reilly Baker MD, PHD Surgeon Neurosurgery 01/20/22 Dafne Hilton MD [address] [place] [address] Specialist Cardiology 10/13/22 Desi Swenson NP [address] [place], [place] [phone] Cardiology 02/29/24 documented as of this encounter
--- OUTSIDE RECORDS SUMMARY | 2024-09-14 18:17 | XMS_ITS | Encounter Summary ---
Author Organization [facility] Address [address] [place] [address] Care Team Providers Care Raw Material Planner Name Role Phone Reilly Baker MD, PHD Unavailable Unava Wayne Blackman Primary Care Provider [phone] Dafne Hilton MD Unavailable [phone] Desi Swenson NP Unavailable [phone] Encounter Details Date Type Department Care Team Description 10/23/2022 SCAN Medical Records [address] [place] [address] Abstract, Provider Social History Tobacco Use Types [...] Date Type Specialty Care Team Description 04/29/2027 Strainer Tender Report Abstract, Provider documented as of this encounter Procedures Procedure Name Priority Date/Time Associated Diagnosis Comments OUTSIDE BARIUM SWALLOW Routine 10/23/2022 documented in this encounter Results * OUTSIDE BARIUM SWALLOW (10/23/2022) Provider Default RADIOLOGY documented in this encounter Visit Diagnoses Not on filedocumented in this encounter Care Teams Raw Material Planner Relationship Specialty Start Date End Date Wayne Jaimes [address] [place] [address] PCP - General Internal Medicine 02/16/22 Reilly Baker MD, PHD Surgeon Neurosurgery 01/20/22 Danfe Hilton MD [address] [place] [address] Specialist Cardiology 10/13/22 Desi Swenson NP [address] [place], [place] [phone] Cardiology 02/29/24 documented as of this encounter
--- OUTSIDE RECORDS SUMMARY | 2024-09-14 18:17 | XMS_ITS | Encounter Summary ---
Author Organization [facility] Address [address] [place] [address] Care Team Providers Care Environmental Lawyer Name Role Phone Brett Velásquez MD Primary Care Provider Reilly Stewart MD, PHD Unavailable Unava Brett Villegas MD Primary Care Provider Wayne Dickson Primary Care Provider [phone] Dafne Hilton MD Unavailable [phone] Desi Swenson NP Unavailable [phone] Encounter Details Date Type Department Care Team Description 08/15/2020 Line Supply Report Medical Records [address] [place] [address] Desi Li DPM Social History Tobacco Use [...] have Coronavirus / COVID-19? No / Unsure 07/30/2020 1:51 PM EST documented as of this encounter Plan of Treatment Upcoming Encounters Date Type Specialty Care Team Description 04/29/2027 Line Supply Report Abstract, Provider documented as of this encounter Visit Diagnoses Not on filedocumented in this encounter Care Teams Environmental Lawyer Relationship Specialty Start Date End Date Brett Velásquez MD PCP - General Internal Medicine 04/21/16 01/25/22 Brett Velásquez MD PCP - General Internal Medicine 01/26/22 02/15/22 Wayne Jaimes [address] [place] [address] PCP - General Internal Medicine 02/16/22 Reilly Baker MD, PHD Surgeon Neurosurgery 01/20/22 Dafne Hilton MD [address] [place] [address] Specialist Cardiology 10/13/22 Desi Swenson NP [address] [place] [address] Cardiology 02/29/24 documented as of this encounter
--- OUTSIDE RECORDS SUMMARY | 2024-09-14 18:17 | XMS_ITS | Clinical Summary ---
Author Organization [facility] [employer] Address [address] [place] [address] [address] [place] [address] Care Team Providers Care Compressor Station Chief Engineer Name Role Phone Unavailable Primary Care Provider [...]
--- OUTSIDE RECORDS SUMMARY | 2024-09-14 18:17 | XMS_ITS | Encounter Summary ---
Author Organization [facility] Address [address] [place] [address] Care Team Providers Care Supervisor Home Energy Consultant Name Role Phone Brett Velásquez MD Primary Care Provider Reilly Stewart MD, PHD Unavailable Unava Brett Villegas MD Primary Care Provider Wayne Dickson Primary Care Provider [phone] Dafne Hilton MD Unavailable [phone] Desi Swenson NP Unavailable [phone] Encounter Details Date Type Department Care Team Description 11/05/2020 [facility] Medical Records [address] [place] [address] Vladislav Antunez DO Social History Tobacco Use [...] Date Type Specialty Care Team Description 04/29/2027 Shoe Polisher Report Abstract, Provider documented as of this encounter Visit Diagnoses Not on filedocumented in this encounter Care Teams Supervisor Home Energy Consultant Relationship Specialty Start Date End Date Brett Velásquez MD PCP - General Internal Medicine 04/21/16 01/25/22 Brett Velásquez MD PCP - General Internal Medicine 01/26/22 02/15/22 Wayne Jaimes [address] [place] [address] PCP - General Internal Medicine 02/16/22 Reilly Baker MD, PHD Surgeon Neurosurgery 01/20/22 Dafne Hilton MD [address] [place] [address] Specialist Cardiology 10/13/22 Desi Swenson NP [address] [place] [address] Cardiology 02/29/24 documented as of this encounter
--- OUTSIDE RECORDS SUMMARY | 2024-09-14 18:17 | XMS_ITS | Encounter Summary ---
Author Organization [facility] Address [address] [facility] [place] [address] Care Team Providers Care Pickle Maker Name Role Phone Keisha Chavez MD Primary Care Provider [phone] Brett Velásquez MD Primary Care Provider Reilly Stewart MD, PHD Unavailable Unari ilBrett Bailon MD Primary Care Provider Wayne Dickson Primary Care Provider [phone] Dafne Hilton MD Unavailable [phone] Desi Swenson NP Unavailable [phone] Encounter Details Date Type Department Care Team Description 11/18/2015 Release of Information Medical Records [address] [place] [address] Abstract, Provider Social History Tobacco Use Types [...] Date Type Specialty Care Team Description 04/29/2027 Leaf Blender Report Abstract, Provider documented as of this encounter Visit Diagnoses Not on filedocumented in this encounter Care Teams Pickle Maker Relationship Specialty Start Date End Date Keisha Chavez MD [address] [place] [address] PCP - General Internal Medicine 06/20/15 04/20/16 Brett Velásquez MD [address] [place] [address] PCP - General Internal Medicine 04/21/16 01/25/22 Brett Velásquez MD [address] [place] [address] PCP - General Internal Medicine 01/26/22 02/15/22 Wayne Jaimes [address] [place] [address] PCP - General Internal Medicine 02/16/22 Reilly Baker MD, PHD [address] [place] [address] Surgeon Neurosurgery 01/20/22 Dafne Hilton MD [address] [place] [address] Specialist Cardiology 10/13/22 Desi Swenson NP [address] [place] [address] Cardiology 02/29/24 documented as of this encounter
--- OUTSIDE RECORDS SUMMARY | 2024-09-14 18:17 | XMS_ITS | Encounter Summary ---
Author Organization [facility] Address [address] [place] [address] Care Team Providers Care Manager Pacu Name Role Phone Reilly Baker MD, PHD Unavailable Unava ilable Wayne Jaimes Primary Care Provider [phone] Dafne Hilton MD Unavailable [phone] Desi Swenson NP Unavailable [phone] Encounter Details Date Type Department Care Team Description 09/10/2022 Hospital Medical Records [address] [place] [address] Social History Tobacco Use Types Packs/Day Years [...] Date Type Specialty Care Team Description 04/29/2027 Slot Supervisor Report Abstract, Provider documented as of this encounter Visit Diagnoses Not on filedocumented in this encounter Care Teams Manager Pacu Relationship Specialty Start Date End Date Wayne Jaimes [address] [place], [place] [id number] PCP - General Internal Medicine 02/16/22 Reilly Baker MD, PHD Surgeon Neurosurgery 01/20/22 Dafne Hilton MD [address] [place] [address] Specialist Cardiology 10/13/22 Desi Swenson NP [address] [place], [place] [phone] Cardiology 02/29/24 documented as of this encounter
--- OUTSIDE RECORDS SUMMARY | 2024-09-14 18:17 | XMS_ITS | Encounter Summary ---
Author Organization [facility] Address [address] [place] [address] Care Team Providers Care Business Intern Name Role Phone Reilly Baker MD, PHD Unavailable Unava ilWayne Osboren Primary Care Provider [phone] Dafne Hilton MD Unavailable [phone] Desi Swenson NP Unavailable [phone] Encounter Details Date Type Department Care Team Description 09/14/2022 Refill Nephrology - [place] [address] [place] [address] Eduard Mccormick MD [address] [place] [address] Social History Tobacco Use Types Packs/Day Years [...] Date Type Specialty Care Team Description 04/29/2027 Catalogue Illustrator Report Abstract, Provider documented as of this encounter Visit Diagnoses Not on filedocumented in this encounter Care Teams Business Intern Relationship Specialty Start Date End Date Wayne Jaimes Del[place] [address] [place] [address] PCP - General Internal Medicine 02/16/22 Reilly Baker MD, PHD Surgeon Neurosurgery 01/20/22 Dafne Hilton MD [address] [place] [address] Specialist Cardiology 10/13/22 Desi Swenson NP [address] [place], [place] [address] Cardiology 02/29/24 documented as of this encounter
--- OUTSIDE RECORDS SUMMARY | 2024-09-14 18:17 | XMS_ITS | Encounter Summary ---
Author Organization [facility] Address [address] [place] [address] Care Team Providers Care Secondary Social Studies Teacher Name Role Phone Brett Velásquez MD Primary Care Provider Reilly Stewart MD, PHD Unavailable Unava ilBrett Bailon MD Primary Care Provider Wayne Dickson Primary Care Provider [phone] Dafne Hilton MD Unavailable [phone] Desi Swenson NP Unavailable [phone] Encounter Details Date Type Department Care Team Description 01/24/2020 Glass Bender Report Medical Records [address] [place] [address] Aleksandar Huggins MD Social History Tobacco Use [...] Date Type Specialty Care Team Description 04/29/2027 Glass Bender Report Abstract, Provider documented as of this encounter Visit Diagnoses Not on filedocumented in this encounter Care Teams Secondary Social Studies Teacher Relationship Specialty Start Date End Date Brett Velásquez MD PCP - General Internal Medicine 04/21/16 01/25/22 Brett Velásquez MD PCP - General Internal Medicine 01/26/22 02/15/22 Wayne Jaimes [address] [place] [address] PCP - General Internal Medicine 02/16/22 Reilly Baker MD, PHD Surgeon Neurosurgery 01/20/22 Dafne Hilton MD [address] [place] [address] Specialist Cardiology 10/13/22 Desi Swenson NP [address] [place] [address] Cardiology 02/29/24 documented as of this encounter
--- OUTSIDE RECORDS SUMMARY | 2024-09-14 18:17 | XMS_ITS ---
Author Organization [facility] Address [address] [facility] [address] [place] [address] Care Team Providers Care Mobile Sales Expert Name Role Phone Wayne Jaimes MD Primary Care Provider DESI Burks Unavailable [phone] Allergies No Known Allergies REASON FOR VISIT [...] Not-Taking Diclofenac Sodium 1 % as directed Tactical Debriefer Officer ally place 1 g onto the skin [...] W/U Status Risk Notes Problem Lumbar radiculopathy (419216239) Lumbar radiculopat hy, right (M54.16) Active confirmed Procedures Procedure Date Ordered Date Performed Result Body Sit e DRAIN/INJECT, SMALL JOINT/BURSA 04/10/2024 N/A Encounters Encounter Location Date Provider Diagnosis [facility] [address] [address] 04/10/2024 DESI LI Onychomycosis B35.1 ; Calcium [...] Date Notes Efinaconazole 10 % 1 application Tactical Debriefer Officer ally Once a day for 90 days [...] Name:DESI LI, 10/11/2024 02:45:00 PM, [address], [address], Medications Administered Medication Instructions Date of Administration Dosage Notes dexAMETHasone Sod Phosphate PF 04/10/2024 0.5 m L Kenalog 04/10/2024 0.5 mL Progress Notes * Mckinley LEWISOB:1955 ([age] yo M)Acc No.[id number]:04/10/2024 Progress Note Patient:?Laina LEWIS Provider:?Desi Li DPM :1955???Age:68 Y???Sex:Male Nael e:04/10/2024 Address:[address] [place], [place] [address] Pcp:Wayne Jaimes MD Subjective: * Chief Complaints: [...] bilaterally, protective sensation intact 10/10 with 5.07 Shunk Alisha bilaterally, vibratory sensation with tuning fork [...] RT J1100 INJ DEXAMETHASONE SODIM PHOSHATE 1 [id number] INJ TRIAMCINOLONE ACETONIDE 10 MG * Follow Up:?3 Months * Billing Information: * Visit Code:? 74657 Office Visit, Est Pt., Level 4. Modifiers: 25 * Procedure Codes:? 42134 DRAIN/INJECT, SMALL JOINT/BURSA. Modifiers: RT J1100 INJ DEXAMETHASONE SODIM PHOSHATE 1 MG. J3301 INJ TRIAMCINOLONE ACETONIDE 10 MG. * Sign off status: Completed true * Provider:?Desi Li DPM Date:? 04/10/2024 Generated for Tatiana lema/Nilsa/Glo on:?09/14/2024 06:17 PM EST History and Physical [...] bilaterally, protective sensation intact 10/10 with 5.07 Shunk Alisha bilaterally, vibratory sensation with tuning fork [...]
--- OUTSIDE RECORDS SUMMARY | 2024-09-14 18:17 | XMS_ITS | Encounter Summary ---
Author Organization [facility] Address [address] [place] [address] Care Team Providers Care Molybdenum Steamer Operator Name Role Phone Reilly Baker MD, PHD Unavailable Unava ilWayne Osborne Primary Care Provider Dafne Hilton MD Unavailable [phone] Desi Swenson NP Unavailable [phone] Encounter Details Date Type Department Care Team Description 04/15/2022 SCAN [facility] [address] [facility] [address] [place] [address] Ena Whipple PA-C [address] [address] Social History Tobacco Use Types Packs/Day Years [...] Date Type Specialty Care Team Description 04/29/2027 Skate Shop Attendant Report Abstract, Provider documented as of this encounter Visit Diagnoses Not on filedocumented in this encounter Care Teams Molybdenum Steamer Operator Relationship Specialty Start Date End Date Wayne Jaimes [address] [place] [address] PCP - General Internal Medicine 02/16/22 Reilly Baker MD, PHD Surgeon Neurosurgery 01/20/22 Dafne Hilton MD [address] [place] [address] Specialist Cardiology 10/13/22 Desi Swenson NP [address] [place], [place] [phone] Cardiology 02/29/24 documented as of this encounter
--- OUTSIDE RECORDS SUMMARY | 2024-09-14 18:17 | XMS_ITS | Encounter Summary ---
Author Organization [facility] Address [address] [place] [address] Care Team Providers Care Crm Specialist Name Role Phone Brett Velásquez MD Primary Care Provider Reilly Stewart MD, PHD Unavailable Unava ilBrett Bailon MD Primary Care Provider Wayne Dickson Primary Care Provider [phone] Dafne Hilton MD Unavailable [phone] Desi Swenson NP Unavailable [phone] Encounter Details Date Type Department Care Team Description 03/08/2018 [facility] Director Report Medical Records [address] [place] [address] Rehab., [place] Social History Tobacco Use Types Packs/Day Years [...] Date Type Specialty Care Team Description 04/29/2027 Council On A[facility] Director Report Abstract, Provider documented as of this encounter Visit Diagnoses Not on filedocumented in this encounter Care Teams Crm Specialist Relationship Specialty Start Date End Date Brett Velásquez MD PCP - General Internal Medicine 04/21/16 01/25/22 Brett Velásquez MD PCP - General Internal Medicine 01/26/22 02/15/22 Wayne Jaimes [address] [place] [address] PCP - General Internal Medicine 02/16/22 Reilly Baker MD, PHD Surgeon Neurosurgery 01/20/22 Dafne Hilton MD [address] [place] [address] Specialist Cardiology 10/13/22 Desi Swenson NP [address] [place] [address] Cardiology 02/29/24 documented as of this encounter
--- OUTSIDE RECORDS SUMMARY | 2024-09-14 18:17 | XMS_ITS | Encounter Summary ---
Author Organization [facility] Address [address] [place] [address] Care Team Providers Care Adult Neurologist Name Role Phone Brett Velásquez MD Primary Care Provider Keisha Luna MD Primary Care Provider [phone] Brett Velásquez MD Primary Care Provider Reilly Stewart MD, PHD Unavailable [facility]Brett Bailon MD Primary Care Provider Wayne Dickson Primary Care Provider [phone] Dafne Hilton MD Unavailable [phone] Desi Swenson NP Unavailable [phone] Reason for Visit * Reason Comments Encounter Details Date Type Department Care Team Description 11/27/2013 Telephone Physiatry - [address] [address] Angela Montalvo MD [address] [place] [address] [place], [place] [id number] Social History Tobacco Use Types Packs/Day Years [...] Date Type Specialty Care Team Description 04/29/2027 Technician Terminal And Repeater Report Abstract, Provider documented as of this encounter Visit Diagnoses Not on filedocumented in this encounter Care Teams Adult Neurologist Relationship Specialty Start Date End Date Brett Velásquez MD PCP - General Internal Medicine 10/29/11 06/19/15 Keisha Chavez MD [address] [place] [address] PCP - General Internal Medicine 06/20/15 04/20/16 Brett Velásquez MD PCP - General Internal Medicine 04/21/16 01/25/22 Brett Velásquez MD PCP - General Internal Medicine 01/26/22 02/15/22 Wayne Jaimes [address] [place] [address] PCP - General Internal Medicine 02/16/22 Reilly Baker MD, PHD [address] [place] [address] Surgeon Neurosurgery 01/20/22 Dafne Hilton MD [address] [place] [address] Specialist Cardiology 10/13/22 Desi Swenson NP [address] [place] [address] Cardiology 02/29/24 documented as of this encounter
--- OUTSIDE RECORDS SUMMARY | 2024-09-14 18:17 | XMS_ITS | Encounter Summary ---
Author Organization [facility] Address [address] [place] [address] Care Team Providers Care Face Burler Name Role Phone Reilly Baker MD, PHD Unavailable Unava ilable Wayne Jaimes Primary Care Provider [phone] Dafne Hilton MD Unavailable [phone] Desi Swenson NP Unavailable [phone] Encounter Details Date Type Department Care Team Description 01/04/2023 Walk In Clinic Visit Medical Records [address] [place] [address] Clinic, [facility] Walk-In [address] [place] [address] Social History Tobacco Use Types Packs/Day Years [...] Date Type Specialty Care Team Description 04/29/2027 Defensive Fire Control Systems Operator Report Abstract, Provider documented as of this encounter Visit Diagnoses Not on filedocumented in this encounter Care Teams Face Burler Relationship Specialty Start Date End Date Wayne Jaimes [address] [place] [address] PCP - General Internal Medicine 02/16/22 Reilly Baker MD, PHD Surgeon Neurosurgery 01/20/22 Dafne Hilton MD [address] [place] [address] Specialist Cardiology 10/13/22 Desi Swenson NP [address] [place] [address] Cardiology 02/29/24 documented as of this encounter
--- OUTSIDE RECORDS SUMMARY | 2024-09-14 18:17 | XMS_ITS | Encounter Summary ---
Author Organization [facility] Address [address] [place] [address] Care Team Providers Care Extrusion Die Template Maker Name Role Phone Brett Velásquez MD Primary Care Provider Keisha Luna MD Primary Care Provider [phone] Brett Velásquez MD Primary Care Provider Reilly Stewart MD, PHD Unavailable Unava ilable Brett Velásquez MD Primary Care Provider Wayne Dickson Primary Care Provider [phone] Dafne Hilton MD Unavailable [phone] Desi Swenson NP Unavailable [phone] Encounter Details Date Type Department Care Team Description 09/26/2012 Repairer Shoe Sticks Report Medical Records [address] [place] [address] Shaquille Chandra Social History Tobacco Use Types [...] Date Type Specialty Care Team Description 04/29/2027 Repairer Shoe Sticks Report Abstract, Provider documented as of this encounter Visit Diagnoses Not on filedocumented in this encounter Care Teams Extrusion Die Template Maker Relationship Specialty Start Date End Date Brett Velásquez MD PCP - General Internal Medicine 10/29/11 06/19/15 Keisha Chavez MD [address] [place] [address] PCP - General Internal Medicine 06/20/15 04/20/16 Brett Velásquez MD PCP - General Internal Medicine 04/21/16 01/25/22 Brett Velásquez MD PCP - General Internal Medicine 01/26/22 02/15/22 Wayne Jaimes [address] [place] [address] PCP - General Internal Medicine 02/16/22 Reilly Baker MD, PHD [address] [place] [address] Surgeon Neurosurgery 01/20/22 Dafne Hilton MD [address] [place] [address] Specialist Cardiology 10/13/22 Desi Swenson NP [address] [place] [address] Cardiology 02/29/24 documented as of this encounter
--- OUTSIDE RECORDS SUMMARY | 2024-09-14 18:17 | XMS_ITS | Encounter Summary ---
Author Organization [facility] Address [address] [place] [address] Care Team Providers Care Pantry Goods Worker Name Role Phone Brett Velásquez MD Primary Care Provider Reilly Stewart MD, PHD Unavailable Unava Brett Villegas MD Primary Care Provider Wayne Dickson Primary Care Provider [phone] Dafne Hilton MD Unavailable [phone] Desi Swenson NP Unavailable [phone] Encounter Details Date Type Department Care Team Description 09/17/2020 [facility] Medical Records [address] [place] [address] Sylvain Lopez MD Social History Tobacco Use [...] Date Type Specialty Care Team Description 04/29/2027 Head Host/Hostess Report Abstract, Provider documented as of this encounter Visit Diagnoses Not on filedocumented in this encounter Care Teams Pantry Goods Worker Relationship Specialty Start Date End Date Brett Velásquez MD PCP - General Internal Medicine 04/21/16 01/25/22 Brett Velásquez MD PCP - General Internal Medicine 01/26/22 02/15/22 Wayne Jaimes [address] [place] [address] PCP - General Internal Medicine 02/16/22 Reilly Baker MD, PHD Surgeon Neurosurgery 01/20/22 Dafne Hilton MD [address] [place] [address] Specialist Cardiology 10/13/22 Desi Swenson NP [address] [place] [address] Cardiology 02/29/24 documented as of this encounter
--- OUTSIDE RECORDS SUMMARY | 2024-09-14 18:17 | XMS_ITS | Encounter Summary ---
Author Organization [facility] Address [address] [place] [address] Care Team Providers Care Hand Polisher Name Role Phone Reilly Baker MD, PHD Unavailable Unava ilable Wayne Jaimes Primary Care Provider [phone] Dafne Hilton MD Unavailable [phone] Desi Swenson NP Unavailable [phone] Encounter Details Date Type Department Care Team Description 09/30/2022 Air Conditioning Service Technician Report Medical Records [address] [place] [address] Social History Tobacco Use Types Packs/Day Years [...] Date Type Specialty Care Team Description 04/29/2027 Air Conditioning Service Technician Report Abstract, Provider documented as of this encounter Visit Diagnoses Not on filedocumented in this encounter Care Teams Hand Polisher Relationship Specialty Start Date End Date Wayne Jaimes [address] [place] [address] PCP - General Internal Medicine 02/16/22 Reilly Baker MD, PHD Surgeon Neurosurgery 01/20/22 Dafne Hilton MD [address] [place] [address] Specialist Cardiology 10/13/22 Desi Swenson NP [address] [place] [address] Cardiology 02/29/24 documented as of this encounter
--- OUTSIDE RECORDS SUMMARY | 2024-09-14 18:17 | XMS_ITS | Encounter Summary ---
Author Organization [facility] Address [address] [place] [address] Care Team Providers Care Pole Sander Operator Name Role Phone Reilly Baker MD, PHD Unavailable Unava Wayne Blackman Primary Care Provider [phone] Dafne Hilton MD Unavailable [phone] Desi Swenson NP Unavailable [phone] Reason for Visit * Reason Onset Date Comments Medication 09/14/2022 Changes, fyi to Dr Mccormick Encounter Details Date Type Department Care Team Description 09/14/2022 Telephone Nephrology - [place] [address] [place] [address] Eduard Mccormick MD [address] [place] [phone] Medication (Changes, fyi to Dr Mccormick) Social [...] some changes to his medications made by [facility]. States hewas told to stop taking losartan 25 mg and cholecalciferol (Vitamin D3 1000 units) and was prescribed asprin 81 mg daily, atorvastatin 80 mg, daily at bedtime, and ticagrelor 90 mg, twice a day. documented in this encounter Plan of Treatment Upcoming Encounters Date Type Specialty Care Team Description 04/29/2027 Long Wall Shear Operator Report Abstract, Provider documented as of this encounter Visit Diagnoses Not on filedocumented in this encounter Care Teams Pole Sander Operator Relationship Specialty Start Date End Date Wayne Jaimes [address] [place] [address] PCP - General Internal Medicine 02/16/22 Reilly Baker MD, PHD Surgeon Neurosurgery 01/20/22 Dafne Hilton MD [address] [place] [address] Specialist Cardiology 10/13/22 Desi Swenson NP [address] [place] [address] Cardiology 02/29/24 documented as of this encounter
--- OUTSIDE RECORDS SUMMARY | 2024-09-14 18:18 | XMS_ITS | Encounter Summary ---
Author Organization [facility] Address [address] [place] [address] Care Team Providers Care Salon Shampoo Assistant Name Role Phone Brett Velásquez MD Primary Care Provider Reilly Stewart MD, PHD Unavailable UnaBrett Davis MD Primary Care Provider Wayne Dickson Primary Care Provider [phone] Dafne Hilton MD Unavailable [phone] Desi Swenson NP Unavailable [phone] Encounter Details Date Type Department Care Team Description 02/11/2021 Telephone [facility] [address] [phone] Hermes Alegre MD [address] [address] Social History Tobacco Use Types Packs/Day Years [...] encounter Miscellaneous Notes * Telephone Encounter - Debbie Nguyen - 02/11/2021 12:52 PM EDT [facility] CALLED WITH A DELIVERY DATE OF 02/12/21 FOR SUCHUL'S EUFLEXXA documented in this encounter Plan of Treatment Upcoming Encounters Date Type Specialty Care Team Description 04/29/2027 Relief Salesperson Report Abstract, Provider documented as of this encounter Visit Diagnoses Not on filedocumented in this encounter Care Teams Salon Shampoo Assistant Relationship Specialty Start Date End Date Brett Velásquez MD PCP - General Internal Medicine 04/21/16 01/25/22 Brett Velásquez MD PCP - General Internal Medicine 01/26/22 02/15/22 Wayne Jaimes [address] [place] [address] PCP - General Internal Medicine 02/16/22 Reilly Baker MD, PHD Surgeon Neurosurgery 01/20/22 Dafne Hilton MD [address] [place] [address] Specialist Cardiology 10/13/22 Desi Swenson NP [address] [place] [address] Cardiology 02/29/24 documented as of this encounter
--- OUTSIDE RECORDS SUMMARY | 2024-09-14 18:18 | XMS_ITS | Encounter Summary ---
Author Organization [facility] Address [address] [place] [address] Care Team Providers Care Sheet Metal Welder Name Role Phone Brett Velásquez MD Primary Care Provider Reilly Stewart MD, PHD Unavailable UnaBrett Davis MD Primary Care Provider Wayne Dickson Primary Care Provider Dafne Hilton MD Unavailable [phone] Desi Swenson NP Unavailable [phone] Encounter Details Date Type Department Care Team Description 03/20/2021 Pt. Non Urgent Medical Question Physiatry - [address] [address] Angela Montalvo MD [address] [place] [address] [place] [id number] Social History Tobacco Use Types Packs/Day Years [...] encounter Miscellaneous Notes * Telephone Encounter - Mony Mcginnis L.P.N. - 03/21/2021 7:43 AM EDTFrom: Laina Lewis To: Lyly Montalvo Sent: 03/20/2021 7:51 PM EDT Subject: referral could you referral to Doctor who IV injection for back pain in [facility] or [facility] as soon as possible. my back pain more worse day after. stand up after down is very hard time. pain always any where anytime. if can not find Doctor in this area, referral any Doctor who have a procedure that IV injection on back i njection. documented in this encounter Plan of Treatment Upcoming Encounters Date Type Specialty Care Team Description 04/29/2027 Aerospace Manager Report Abstract, Provider documented as of this encounter Visit Diagnoses Not on filedocumented in this encounter Care Teams Sheet Metal Welder Relationship Specialty Start Date End Date Brett Velásquez MD PCP - General Internal Medicine 04/21/16 01/25/22 Brett Velásquez MD PCP - General Internal Medicine 01/26/22 02/15/22 Wayne Jaimes [address] [place] [address] PCP - General Internal Medicine 02/16/22 Reilly Baker MD, PHD Surgeon Neurosurgery 01/20/22 Dafne Hilton MD [address] [place] [address] Specialist Cardiology 10/13/22 Desi Swenson NP [address] [place] [address] Cardiology 02/29/24 documented as of this encounter
--- OUTSIDE RECORDS SUMMARY | 2024-09-14 18:18 | XMS_ITS | Encounter Summary ---
Author Organization [facility] Address [address] [place] [address] Care Team Providers Care Air Brake Worker Name Role Phone Reilly Baker MD, PHD Unavailable Unava ilable Wayne Jaimes Primary Care Provider [phone] Dafne Hilton MD Unavailable [phone] Desi Swenson NP Unavailable [phone] Encounter Details Date Type Department Care Team Description 08/25/2023 [facility] Records [facility] Medical [facility] [address] [facility] [address] [place] [address] Wen Herrmann NP [address] [facility] [place] [address] Social History Tobacco Use Types Packs/Day Years [...] Date Type Specialty Care Team Description 04/29/2027 Media Traffic Manager Report Abstract, Provider documented as of this encounter Visit Diagnoses Not on filedocumented in this encounter Care Teams Air Brake Worker Relationship Specialty Start Date End Date Wayne Jaimes [address] [place], [place] [id number] PCP - General Internal Medicine 02/16/22 Reilly Baker MD, PHD Surgeon Neurosurgery 01/20/22 Dafne Hilton MD [address] [place], [place] [id number] Specialist Cardiology 10/13/22 Desi Swenson NP [address] [place] [address] Cardiology 02/29/24 documented as of this encounter
--- OUTSIDE RECORDS SUMMARY | 2024-09-14 18:18 | XMS_ITS | Encounter Summary ---
Author Organization [facility] Address [address] [place] [address] Care Team Providers Care Conveyor Worker Name Role Phone Reilly Baker MD, PHD Unavailable Unava ilWayne Osborne Primary Care Provider Dafne Hilton MD Unavailable [phone] Desi Swenson NP Unavailable [phone] Encounter Details Date Type Department Care Team Description 01/18/2024 Telephone Gastroenterology - [place] [address] [facility] [address] [place] [address] Kevin Oliva PA-C [address] [facility] [address] [place] [address] Social History Tobacco Use Types Packs/Day Years [...] 01/31/2024 3:25 PM EDT Per Prisca at [facility], [facility] is not contracted with patient's insurance either, [facility] [employer]. Per abdias Brown to book at [facility]. Called Central Registration at [phone] but they want the order faxed with demo sheet. Faxed to [phone]. * Telephone Encounter - Alexandria John - 01/31/2024 3:08 PM EDT Patient came in office stating [facility] is not accepting patient insurance. Please schedule appointment at [facility] for Barium Swallow and contact patient with information. * Telephone Encounter - Cristina Jimenez - 01/18/2024 8:21 AM EDT Booked Barium Swallow at [address] [place] [address] for patient on January 31 at 8am w/ arrival at 7:45am. Called the patient to notify of appointment details, including nothing to eat/drink after midnight. I also mailed an appointment letter. Order has been faxed to [phone]. documented in this encounter Plan of Treatment Upcoming Encounters Date Type Specialty Care Team Description 04/29/2027 Chief Design Engineer Report Abstract, Provider documented as of this encounter Visit Diagnoses Not on filedocumented in this encounter Care Teams Conveyor Worker Relationship Specialty Start Date End Date Wayne JaimesUsama [address] [place] [address] PCP - General Internal Medicine 02/16/22 Reilly Baker MD, PHD Surgeon Neurosurgery 01/20/22 Dafne Hilton MD [address] [place] [address] Specialist Cardiology 10/13/22 Desi Swenson NP [address] [place] [address] Cardiology 02/29/24 documented as of this encounter
--- OUTSIDE RECORDS SUMMARY | 2024-09-14 18:18 | XMS_ITS | Encounter Summary ---
Author Organization [facility] Address [address] [place] [address] Care Team Providers Care Street And Building Decorator Name Role Phone Brett Velásquez MD Primary Care Provider Reilly Stewart MD, PHD Unavailable Unava Brett Villegas MD Primary Care Provider Wayne Dickson Primary Care Provider [phone] Dafne Hilton MD Unavailable [phone] Desi Swenson NP Unavailable [phone] Encounter Details Date Type Department Care Team Description 04/22/2021 District Claims Manager Report Medical Records [address] [place] [address] Desi Li DPM Social History Tobacco Use [...] Date Type Specialty Care Team Description 04/29/2027 District Claims Manager Report Abstract, Provider documented as of this encounter Visit Diagnoses Not on filedocumented in this encounter Care Teams Street And Building Decorator Relationship Specialty Start Date End Date Brett Velásquez MD PCP - General Internal Medicine 04/21/16 01/25/22 Brett Velásquez MD PCP - General Internal Medicine 01/26/22 02/15/22 Wayne Jaimes [address] [place] [address] PCP - General Internal Medicine 02/16/22 Reilly Baker MD, PHD Surgeon Neurosurgery 01/20/22 Dafne Hilton MD [address] [place] [address] Specialist Cardiology 10/13/22 Desi Swenson NP [address] [place] [address] Cardiology 02/29/24 documented as of this encounter
--- OUTSIDE RECORDS SUMMARY | 2024-09-14 18:18 | XMS_ITS | Encounter Summary ---
Author Organization [facility] Address [address] [place] [address] Care Team Providers Care Tipple Tender Name Role Phone Reilly Baker MD, PHD Unavailable Unava ilable Wayne Jaimes Primary Care Provider [phone] Dafne Hilton MD Unavailable [phone] Desi Swenson NP Unavailable [phone] Encounter Details Date Type Department Care Team Description 09/21/2023 Orders Only Medical Records [address] [place] [address] Vipin Cherry Social History Tobacco Use Types [...] Date Type Specialty Care Team Description 04/29/2027 Labor Gang Supervisor Report Abstract, Provider documented as of this encounter Procedures Procedure Name Priority Date/Time Associated Diagnosis Comments OUTSIDE BARIUM SWALLOW Routine 08/17/2023 documented in this encounter Results * OUTSIDE BARIUM SWALLOW (08/17/2023) Vipin Cherry RADIOLOGY documented in this encounter Visit Diagnoses Not on filedocumented in this encounter Care Teams Tipple Tender Relationship Specialty Start Date End Date Wayne Jaimes [address] [place], [place] [id number] PCP - General Internal Medicine 02/16/22 Reilly Baker MD, PHD Surgeon Neurosurgery 01/20/22 Dafne Hilton MD [address] [place] [address] Specialist Cardiology 10/13/22 Desi Swenson NP [address] [place] [address] Cardiology 02/29/24 documented as of this encounter
--- OUTSIDE RECORDS SUMMARY | 2024-09-14 18:18 | XMS_ITS | Patient Health Record ---
Author Organization [facility] Address [address] [facility] [address] [place] [address] Care Team Providers Care Risk Intern Name Role Phone Wayne Jaimes MD Primary Care Provider JORGE L Burks Unavailable [phone] Allergies No Known Allergies Reason For Referral [...] Not-Taking Diclofenac Sodium 1 % as directed Caustic Liquor Maker ally place 1 g onto the skin [...] Problem Status W/U Status Risk Notes Problem [id number] Primary osteoarthritis, right ankle and foot (M19.071) Active confirmed Problem 225299830 Primary osteoarthritis, left 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) Active confirmed Problem 940747281 Equinus contracture of right ankle (M24.571) Active confirmed Problem 5196835 Psoriasis (L40.9) Active confirmed Problem Lumbar radiculopathy (846187099) Lumbar radiculopathy, right (M54.16) Active confirmed Problem 461049034 Calcium pyrophosphate deposition disease (CPPD) (M11.20) Active [...] N/A Encounters Encounter Location Date Provider Diagnosis [facility] [address] 09/20/2023 JORGE L REDDY Onychomycosis B35.1 ; Calcium pyrophosphate deposition disease (CPPD) M11.20 ; Psoriasis L40.9 ; Hallux limitus of left foot M20.5X2 ; Hallux limitus of right foot M20.5X1 and Lumbar radiculopathy, right M54.16 [facility] [address] 12/24/2023 JORGE L REDDY Onychomycosis B35.1 ; Calcium pyrophosphate deposition disease (CPPD) M11.20 ; Psoriasis L40.9 ; Hallux limitus of left foot M20.5X2 ; Hallux limitus of right foot M20.5X1 and Lumbar radiculopathy, right M54.16 [facility] [address] [address] 04/10/2024 JORGE L REDDY Onychomycosis B35.1 ; Calcium pyrophosphate deposition disease (CPPD) M11.20 ; Psoriasis L40.9 ; Hallux limitus of left foot M20.5X2 ; Hallux limitus of right foot M20.5X1 ; Lumbar radiculopathy, right M54.16 ; Achilles tendinitis, right leg M76.61 and Achilles tendinitis, left leg M76.62 [facility] [address] 07/10/2024 JORGE L REDDY Onychomycosis B35.1 [...] currently being followed at the [facility] for CPPD. His notes were not available [...] currently being followed at the [facility] for CPPD. His notes were not available [...] currently being followed at the [facility] for CPPD. His notes were not available [...] KRANTHI REDDY, 10/11/2024 02:45:00 PM, [address], [address], Insurance Providers Payer Name Payer Address Payer Phone Subscriber Number Group Number Insured Name Patient Relationship to Insured Coverage Start Date Coverage End Date [employer] care medicare community plan [address] [address] [place] [address] [id number] Laina Reynolds Self - patient is the [...]
--- OUTSIDE RECORDS SUMMARY | 2024-09-14 18:18 | XMS_ITS | Encounter Summary ---
Author Organization [facility] Address [address] [place] [address] Care Team Providers Care Sales Operations Coordinator Name Role Phone Brett Velásquez MD Primary Care Provider Keisha Luna MD Primary Care Provider [phone] Brett Velásquez MD Primary Care Provider Reilly Stewart MD, PHD Unavailable Unava ilable Brett Velásquez MD Primary Care Provider Wayne Dickson Primary Care Provider [phone] Dafne Hilton MD Unavailable [phone] Desi Swenson NP Unavailable [phone] Encounter Details Date Type Department Care Team Description 05/25/2013 Facilities Maintenance Assistant Report Medical Records [address] [place] [address] Aleksandar Huggins MD Social History Tobacco Use [...] Date Type Specialty Care Team Description 04/29/2027 Facilities Maintenance Assistant Report Abstract, Provider documented as of this encounter Visit Diagnoses Not on filedocumented in this encounter Care Teams Sales Operations Coordinator Relationship Specialty Start Date End Date Brett Velásquez MD PCP - General Internal Medicine 10/29/11 06/19/15 Keisha Chavez MD [address] [place] [address] PCP - General Internal Medicine 06/20/15 04/20/16 Brett Velásquez MD PCP - General Internal Medicine 04/21/16 01/25/22 Brett Velásquez MD PCP - General Internal Medicine 01/26/22 02/15/22 Wayne Jaimes [address] [place] [address] PCP - General Internal Medicine 02/16/22 Reilly Baker MD, PHD [address] [place] [address] Surgeon Neurosurgery 01/20/22 Dafne Hilton MD [address] [place] [address] Specialist Cardiology 10/13/22 Desi Swenson NP [address] [place] [address] Cardiology 02/29/24 documented as of this encounter
--- OUTSIDE RECORDS SUMMARY | 2024-09-14 18:18 | XMS_ITS | Encounter Summary ---
Author Organization [facility] Address [address] [place] [address] Care Team Providers Care Upper Shaper Name Role Phone Brett Velásquez MD Primary Care Provider Keisha Luna MD Primary Care Provider [phone] Brett Velásquez MD Primary Care Provider Reilly Stewart MD, PHD Unavailable Unava ilable Brett Velásquez MD Primary Care Provider Wayne Dickson Primary Care Provider [phone] Dafne Hilton MD Unavailable [phone] Desi Swenson NP Unavailable [phone] Encounter Details Date Type Department Care Team Description 02/28/2013 Singe Winder Report Medical Records [address] [place] [address] [facility] [place] Social History Tobacco Use Types Packs/Day Years [...] Date Type Specialty Care Team Description 04/29/2027 Singe Winder Report Abstract, Provider documented as of this encounter Visit Diagnoses Not on filedocumented in this encounter Care Teams Upper Shaper Relationship Specialty Start Date End Date Brett Velásquez MD PCP - General Internal Medicine 10/29/11 06/19/15 Keisha Chavez MD [address] [place] [address] PCP - General Internal Medicine 06/20/15 04/20/16 Brett Velásquez MD PCP - General Internal Medicine 04/21/16 01/25/22 Brett Velásquez MD PCP - General Internal Medicine 01/26/22 02/15/22 Wayne Jaimes [address] [place] [address] PCP - General Internal Medicine 02/16/22 Reilly Baker MD, PHD [address] [place] [address] Surgeon Neurosurgery 01/20/22 Dafne Hilton MD [address] [place] [address] Specialist Cardiology 10/13/22 Desi Swenson NP [address] [place] [address] Cardiology 02/29/24 documented as of this encounter
--- OUTSIDE RECORDS SUMMARY | 2024-09-14 18:18 | XMS_ITS ---
Author Organization [facility] Address [address] [facility] [address] [place] [address] Care Team Providers Care Rubber Gasket Inspector Trimmer Name Role Phone Wayne Jaimes MD Primary Care Provider DESI Burks Unavailable [phone] Allergies No Known Allergies REASON FOR VISIT [...] Active Diclofenac Sodium 1 % as directed Regional Sales Executive ally place 1 g onto the skin [...] Externally Once a day Active Vital Signs Height 5ft 6in in 07/10/2024 Weight 157.8 lbs 07/10/2024 BMI 25.47 kg/m2 07/10/2024 Procedures Procedure Date Ordered Date Performed Result Body Sit e DRAIN/INJECT, SMALL JOINT/BURSA 07/10/2024 N/A Encounters Encounter Location Date Provider Diagnosis [facility] [address] [address] 07/10/2024 DESI LI Onychomycosis B35.1 ; Calcium [...] Date Notes Efinaconazole 10 % 1 application Regional Sales Executive ally Once a day for 90 days [...] Name:DESI LI, 10/11/2024 02:45:00 PM, [address] [facility] [address], [place], [address], Medications Administered Medication Instructions Date of Administration Dosage Notes dexAMETHasone Sod Phosphate PF 07/10/2024 0.5 m L Kenalog 07/10/2024 0.5 mL Progress Notes * Mckinley LEWISOB:1955 ([age] yo M)Acc No.[id number]:07/10/2024 Progress Note Patient:Laina SANDOVAL Provider:?Desi Li DPM :1955???Age:68 Y???Sex:Male Nael e:07/10/2024 Address:[address] [place], [place] [address] Pcp:Wayne Jaimes MD Subjective: * Chief Complaints: [...] bilaterally, protective sensation intact 10/10 with 5.07 [place] Alisha bilaterally, vibratory sensation with tuning fork [...] RT J1100 INJ DEXAMETHASONE SODIM PHOSHATE 1 [id number] INJ TRIAMCINOLONE ACETONIDE 10 MG * Follow Up:?3 Months * Billing Information: * Visit Code:? 93447 Office Visit, Est Pt., Level 4. Modifiers: 25 * Procedure Codes:? DRAIN/INJECT, SMALL JOINT/BURSA. Modifiers: RT J1100 INJ DEXAMETHASONE SODIM PHOSHATE 1 MG. J3301 INJ TRIAMCINOLONE ACETONIDE 10 MG. * Sign off status: Completed true * Provider:?Desi Li DPM Date:? 07/10/2024 Generated for Tatiana lema/Nilsa/Saraitting on:?09/14/2024 06:18 PM EST History and Physical Notes * [...] bilaterally, protective sensation intact 10/10 with 5.07 [place] Alisha bilaterally, vibratory sensation with tuning fork [...]
--- OUTSIDE RECORDS SUMMARY | 2024-09-14 18:18 | XMS_ITS | Encounter Summary ---
Author Organization [facility] Address [address] [place] [address] Care Team Providers Care Practice Billing Associate Name Role Phone Reilly Baker MD, PHD Unavailable Unava ilable Wayne Jaimes Primary Care Provider [phone] Dafne Hilton MD Unavailable [phone] Desi Swenson NP Unavailable [phone] Encounter Details Date Type Department Care Team Description 11/05/2023 Provider Relations Specialist Report Medical Records [address] [place] [address] Maxwell Gordon MD Social History Tobacco Use [...] Date Type Specialty Care Team Description 04/29/2027 Provider Relations Specialist Report Abstract, Provider documented as of this encounter Visit Diagnoses Not on filedocumented in this encounter Care Teams Practice Billing Associate Relationship Specialty Start Date End Date Wayne Jaimes [address] [place] [address] PCP - General Internal Medicine 02/16/22 Reilly Baker MD, PHD Surgeon Neurosurgery 01/20/22 Dafne Hilotn MD [address] [place] [address] Specialist Cardiology 10/13/22 Desi Swenson NP [address] [place] [address] Cardiology 02/29/24 documented as of this encounter
--- OUTSIDE RECORDS SUMMARY | 2024-09-14 18:18 | XMS_ITS | Encounter Summary ---
Author Organization [facility] Address [address] [place] [address] Care Team Providers Care Application Processor Name Role Phone Reilly Baker MD, PHD Unavailable Unava Wayne Blackman Primary Care Provider [phone] Dafne Hilton MD Unavailable [phone] Desi Swenson NP Unavailable [phone] Reason for Visit * Reason Onset Date Comments Medication 02/25/2023 Encounter Details Date Type Department Care Team Description 02/25/2023 Telephone Gastroenterology - [place] [address] [facility] [address] [place] [address] Kevin Oliva PA-C [address] [address] Medication Social History Tobacco Use Types Packs/Day [...] Date Type Specialty Care Team Description 04/29/2027 Sterilizer Operator Report Abstract, Provider documented as of this encounter Visit Diagnoses Not on filedocumented in this encounter Care Teams Application Processor Relationship Specialty Start Date End Date Wayne Jaimes [address] [place] [address] PCP - General Internal Medicine 02/16/22 Reilly Baker MD, PHD Surgeon Neurosurgery 01/20/22 Dafne Hilton MD [address] [place] [address] Specialist Cardiology 10/13/22 Desi Swenson NP [address] [place] [address] Cardiology 02/29/24 documented as of this encounter
--- OUTSIDE RECORDS SUMMARY | 2024-09-14 18:18 | XMS_ITS | Encounter Summary ---
Author Organization [facility] Address [address] [place] [address] Care Team Providers Care Concession Cashier Name Role Phone Reilly Baker MD, PHD Unavailable Unava ilWayne Osborne Primary Care Provider [phone] Dafne Hilton MD Unavailable [phone] Desi Swenson NP Unavailable [phone] Encounter Details Date Type Department Care Team Description 10/21/2023 Orders Only Medical Records [address] [place] [address] Shaquille Loredo PA-C [address] [place] [address] Social History Tobacco Use Types Packs/Day Years [...] Date Type Specialty Care Team Description 04/29/2027 Soot Blower Report Abstract, Provider documented as of this encounter Procedures Procedure Name Priority Date/Time Associated Diagnosis Comments OUTSIDE SLEEP STUDY Routine 05/09/2022 documented in this encounter Results * OUTSIDE SLEEP STUDY (05/09/2022) Shaquille Loredo PA-C PULMONOLOGY documented in this encounter Visit Diagnoses Not on filedocumented in this encounter Care Teams Concession Cashier Relationship Specialty Start Date End Date Jose M Jaimesgil Dowell [address] [place] [address] PCP - General Internal Medicine 02/16/22 Reilly Baker MD, PHD Surgeon Neurosurgery 01/20/22 Dafne Hilton MD [address] [place] [address] Specialist Cardiology 10/13/22 Desi Swenson NP [address] [place] [address] Cardiology 02/29/24 documented as of this encounter
--- OUTSIDE RECORDS SUMMARY | 2024-09-14 18:18 | XMS_ITS | Encounter Summary ---
Author Organization [facility] Address [address] [place] [address] Care Team Providers Care Wet Mixer Name Role Phone Reilly Baker MD, PHD Unavailable Unava ilable Wayne Jaimes Primary Care Provider [phone] Dafne Hilton MD Unavailable [phone] Desi Swenson NP Unavailable [phone] Encounter Details Date Type Department Care Team Description 06/07/2023 Hospital Medical Records [address] [place] [address] Vladislav Antunez DO Social History Tobacco Use [...] Date Type Specialty Care Team Description 04/29/2027 Cathode Maker Report Abstract, Provider documented as of this encounter Visit Diagnoses Not on filedocumented in this encounter Care Teams Wet Mixer Relationship Specialty Start Date End Date Wayne Jaimes [address] [place] [address] PCP - General Internal Medicine 02/16/22 Reilly Baker MD, PHD Surgeon Neurosurgery 01/20/22 Dafne Hilton MD [address] [place] [address] Specialist Cardiology 10/13/22 Desi Swenson, ILDA [address] [place] [address] Cardiology 02/29/24 documented as of this encounter
--- OUTSIDE RECORDS SUMMARY | 2024-09-14 18:18 | XMS_ITS | Encounter Summary ---
Author Organization [facility] Address [address] [place] [address] Care Team Providers Care Electrochemist Name Role Phone Reilly Baker MD, PHD Unavailable Unava ilable Wayne Jaimes Primary Care Provider Dafne Hilton MD Unavailable [phone] Desi Swenson NP Unavailable Encounter Details Date Type Department Care Team Description [facility] [address] [facility] [address] [place] [address] Ena Whipple PA-C [address] [address] Social History Tobacco Use Types Packs/Day Years [...] Type Specialty Care Team Description 04/29/2027 Dairy Clerk Report Abstract, Provider documented as of this encounter Visit Diagnoses Not on filedocumented in this encounter Care Teams Electrochemist Relationship Specialty Start Date End Date Wanye Jaimes [address] [place] [address] PCP - General Internal Medicine 02/16/22 Reilly Baker MD, PHD Surgeon Neurosurgery 01/20/22 Dafne Hilton MD [address] [place] [address] Specialist Cardiology 10/13/22 Desi Swenson NP [address] [place] [address] Cardiology 02/29/24 documented as of this encounter
--- OUTSIDE RECORDS SUMMARY | 2024-09-14 18:18 | XMS_ITS | Encounter Summary ---
Author Organization [facility] [place] [facility] Address [address] [place] [address] Care Team Providers Care Rating Specialist Name Role Phone Reilly Baker MD, PHD Unavailable Unava Wayne Blackman Primary Care Provider [phone] Dafne Hilton MD Unavailable [phone] Desi Swenson NP Unavailable [phone] Reason for Visit * Reason Onset Date Comments Provider Call Back 02/11/2023 Encounter Details Date Type Department Care Team Description 02/11/2023 Telephone Gastroenterology - [place] 175 [facility] [address] [place] [address] Kevin Oliva PA-C 175 [facility] [address] [place] [address] Provider Call Back Social History Tobacco Use [...] Telephone Encounter - Kevin Oliva PA-C - 02/12/2023 2:43 PM EDT Patient needs to continue using the Nexium twice daily and needs to be put on a wait list to follow-up. * Telephone Encounter - Amber Maki M.A. - 02/12/2023 10:38 AM EDT Pt was placed on cx list, can you please review and advise? * Telephone Encounter - Ena Carracso - 02/11/2023 12:37 PM EDT Patient came into the office asking for a sooner appointment, was last seen 04/27/2022 presribed sulcrafate for symptoms, medication stopped working , symptoms are back. Please advise documented in this encounter Plan of Treatment Upcoming Encounters Date Type Specialty Care Team Description 04/29/2027 Supervisor Tree Fruit And Nut Farming Report Abstract, Provider documented as of this encounter Visit Diagnoses Not on filedocumented in this encounter Care Teams Rating Specialist Relationship Specialty Start Date End Date Jose M Jaimesgil Dowell [address] [place] [address] PCP - General Internal Medicine 02/16/22 Reilly Baker MD, PHD Surgeon Neurosurgery 01/20/22 Dafne Hilton MD [address] [place] [address] Specialist Cardiology 10/13/22 Desi Swenson NP [address] [place] [address] Cardiology 02/29/24 documented as of this encounter
--- OUTSIDE RECORDS SUMMARY | 2024-09-14 18:18 | XMS_ITS | Encounter Summary ---
Author Organization [facility] Address [address] [place] [address] Care Team Providers Care Cutting Pressman Name Role Phone Reilly Baker MD, PHD Unavailable Unava ilable Wayne Jaimes Primary Care Provider [phone] Dafne Hilton MD Unavailable [phone] Desi Swenson NP Unavailable [phone] Encounter Details Date Type Department Care Team Description 02/02/2023 Care Center Manager Report Medical Records [address] [place] [address] Sonny Abrams PA-C Social History Tobacco Use [...] Date Type Specialty Care Team Description 04/29/2027 Care Center Manager Report Abstract, Provider documented as of this encounter Visit Diagnoses Not on filedocumented in this encounter Care Teams Cutting Pressman Relationship Specialty Start Date End Date Wayne Jaimes [address] [place], [place] [id number] PCP - General Internal Medicine 02/16/22 Reilly Baker MD, PHD Surgeon Neurosurgery 01/20/22 Dafne Hilton MD [address] [place] [address] Specialist Cardiology 10/13/22 Desi Swenson NP [address] [place] [address] Cardiology 02/29/24 documented as of this encounter
--- OUTSIDE RECORDS SUMMARY | 2024-09-14 18:18 | XMS_ITS | Encounter Summary ---
Author Organization [facility] Address [address] [place] [address] Care Team Providers Care Specialty Plant Supervisor Name Role Phone Brett Velásquez MD Primary Care Provider Reilly Stewart MD, PHD Unavailable Brett España MD Primary Care Provider Wayne Dickson Primary Care Provider [phone] Dafne Hilton MD Unavailable [phone] Desi Swenson NP Unavailable [phone] Reason for Visit * Reason Onset Date Comments er follow up 08/01/2018 Encounter Details Date Type Department Care Team Description 08/01/2018 Telephone Adult [address] [address] Brett Velásquez MD er follow up Social History Tobacco Use Types Packs/Day Years [...] encounter Miscellaneous Notes * Telephone Encounter - Jacqui Ahn - 08/01/2018 11:44 AM EST ER follow-up appointment booked YES 08/11/18 If ER or UC follow up, can be booked with [facility] or . If hospital admission follow up MUST be booked with a physician Appointment time: 2:15PM Provider visit is scheduled with: Shaquille Loredo PA-C Hospital/ center patient was treated at: [facility] Date of visit: 07/30/18 Was this only an ER/UC visit or was the patient admitted to the hospital? ER visit onlyER visit only If patient was admitted what was the date of discharge? N/A Reason/diagnosis for visit or stay: Constipation and urinary retention Was visit or stay related to an injury? NO If yes, what was the date of injury (DOI)? N/A If yes, was the injury due to N/A Tests performed: Lab: YES X-ray: YES EKG: YES Other tests. If yes, what?; N/A documented in this encounter Plan of Treatment Upcoming Encounters Date Type Specialty Care Team Description 04/29/2027 Order Filler Report Abstract, Provider documented as of this encounter Visit Diagnoses Not on filedocumented in this encounter Care Teams Specialty Plant Supervisor Relationship Specialty Start Date End Date Brett Velásquez MD PCP - General Internal Medicine 04/21/16 01/25/22 Brett Velásquez MD PCP - General Internal Medicine 01/26/22 02/15/22 Wayne Jaimes [address] [place] [address] PCP - General Internal Medicine 02/16/22 Reilly Baker MD, PHD Surgeon Neurosurgery 01/20/22 Dafne Hilton MD [address] [place] [address] Specialist Cardiology 10/13/22 Desi Swenson, ILDA [address] [place] [address] Cardiology 02/29/24 documented as of this encounter
--- OUTSIDE RECORDS SUMMARY | 2024-09-14 18:18 | XMS_ITS | Encounter Summary ---
Author Organization [facility] Address [address] [place] [address] Care Team Providers Care Food Safety Field Specialist Name Role Phone Reilly Baker MD, PHD Unavailable Unava ilable Wayne Jaimes Primary Care Provider [phone] Dafne Hilton MD Unavailable [phone] Desi Swenson NP Unavailable [phone] Encounter Details Date Type Department Care Team Description 06/22/2023 Hub Borer Report Medical Records [address] [place] [address] Vladislav Antunez DO Social History Tobacco Use [...] Date Type Specialty Care Team Description 04/29/2027 Hub Borer Report Abstract, Provider documented as of this encounter Visit Diagnoses Not on filedocumented in this encounter Care Teams Food Safety Field Specialist Relationship Specialty Start Date End Date Wayne Jaimes [address] [place] [address] PCP - General Internal Medicine 02/16/22 Reilly Baker MD, PHD Surgeon Neurosurgery 01/20/22 Dafne Hilton MD [address] [place] [address] Specialist Cardiology 10/13/22 Desi Swenson NP [address] [place] [address] Cardiology 02/29/24 documented as of this encounter
--- OUTSIDE RECORDS SUMMARY | 2024-09-14 18:18 | XMS_ITS | Encounter Summary ---
Author Organization [facility] Address [address] [place] [address] Care Team Providers Care Lead Electrical Controls Engineer Name Role Phone Reilly Baker MD, PHD Unavailable Unava ilable Wayne Jaimes Primary Care Provider [phone] Dafne Hilton MD Unavailable [phone] Desi Swenson NP Unavailable [phone] Encounter Details Date Type Department Care Team Description 05/11/2023 Decal Cutter Report Medical Records [address] [place] [address] Abstract, Provider Social History Tobacco Use Types [...] Date Type Specialty Care Team Description 04/29/2027 Decal Cutter Report Abstract, Provider documented as of this encounter Visit Diagnoses Not on filedocumented in this encounter Care Teams Lead Electrical Controls Engineer Relationship Specialty Start Date End Date Wayne Jaimes [address] [place] [address] PCP - General Internal Medicine 02/16/22 Reilly Baker MD, PHD Surgeon Neurosurgery 01/20/22 Dafne Hilton MD [address] [place], [place] [id number] Specialist Cardiology 10/13/22 Desi Swenson NP [address] [place] [address] Cardiology 02/29/24 documented as of this encounter
--- OUTSIDE RECORDS SUMMARY | 2024-09-14 18:18 | XMS_ITS | Encounter Summary ---
Author Organization [facility] Address [address] [place] [address] Care Team Providers Care Vocational Examiner Name Role Phone Reilly Baker MD, PHD Unavailable Unava ilable Wayne Jaimes Primary Care Provider [phone] Dafne Hilton MD Unavailable [phone] Desi Swenson NP Unavailable [phone] Encounter Details Date Type Department Care Team Description 10/11/2023 Business Developer Report Medical Records [address] [place] [address] Vladislav Antunez DO Social History Tobacco Use [...] Type Specialty Care Team Description 04/29/2027 Business Developer Report Abstract, Provider documented as of this encounter Visit Diagnoses Not on filedocumented in this encounter Care Teams Vocational Examiner Relationship Specialty Start Date End Date Wayne Jaimes [address] [place] [address] PCP - General Internal Medicine 02/16/22 Reilly Baker MD, PHD Surgeon Neurosurgery 01/20/22 Dafne Hilton MD [address] [place] [address] Specialist Cardiology 10/13/22 Desi Swenson NP [address] [place] [address] Cardiology 02/29/24 documented as of this encounter
--- OUTSIDE RECORDS SUMMARY | 2024-09-14 18:18 | XMS_ITS | Encounter Summary ---
Author Organization [facility] Address [address] [place] [address] Care Team Providers Care Account Installation Specialist Name Role Phone Brett Velásquez MD Primary Care Provider Keisha Luna MD Primary Care Provider [phone] Brett Velásquez MD Primary Care Provider Reilly Stewart MD, PHD Unavailable Unava ilable Brett Velásquez MD Primary Care Provider Wayne Dickson Primary Care Provider [phone] Dafne Hilton MD Unavailable [phone] Desi Swenson NP Unavailable [phone] Encounter Details Date Type Department Care Team Description 03/02/2013 Swing Tender Report Medical Records [address] [place] [address] [facility] [place] Social History Tobacco Use Types Packs/Day Years [...] Date Type Specialty Care Team Description 04/29/2027 Swing Tender Report Abstract, Provider documented as of this encounter Visit Diagnoses Not on filedocumented in this encounter Care Teams Account Installation Specialist Relationship Specialty Start Date End Date Brett Velásquez MD PCP - General Internal Medicine 10/29/11 06/19/15 Keisha Chavez MD [address] [place] [address] PCP - General Internal Medicine 06/20/15 04/20/16 Brett Velásquez MD PCP - General Internal Medicine 04/21/16 01/25/22 Brett Velásquez MD PCP - General Internal Medicine 01/26/22 02/15/22 Wayne Jaimes [address] [place] [address] PCP - General Internal Medicine 02/16/22 Reilly Baker MD, PHD [address] [place] [address] Surgeon Neurosurgery 01/20/22 Dafne Hilton MD [address] [place] [address] Specialist Cardiology 10/13/22 Desi Swenson NP [address] [place] [address] Cardiology 02/29/24 documented as of this encounter
--- OUTSIDE RECORDS SUMMARY | 2024-09-14 18:18 | XMS_ITS | Encounter Summary ---
Author Organization [facility] Address [address] [place] [address] Care Team Providers Care Director Of Advertising Sales Name Role Phone Reilly Baker MD, PHD Unavailable Unava ilable Wayne Jaimes Primary Care Provider [phone] Dafne Hilton MD Unavailable [phone] Desi Swenson NP Unavailable [phone] Encounter Details Date Type Department Care Team Description 11/11/2023 [facility] [address] [place] [id number] Md Steve Social History Tobacco Use Types [...] Date Type Specialty Care Team Description 04/29/2027 Sailing Instructor Report Abstract, Provider documented as of this encounter Visit Diagnoses Not on filedocumented in this encounter Care Teams Director Of Advertising Sales Relationship Specialty Start Date End Date Wayne Jaimes [address] [place] [address] PCP - General Internal Medicine 02/16/22 Reilly Baker MD, PHD Surgeon Neurosurgery 01/20/22 Dafne Hilton MD [address] [place] [address] Specialist Cardiology 10/13/22 Desi Swenson NP [address] [place] [address] Cardiology 02/29/24 documented as of this encounter
--- OUTSIDE RECORDS SUMMARY | 2024-09-14 18:18 | XMS_ITS | Encounter Summary ---
Author Organization [facility] Address [address] [place] [address] Care Team Providers Care Wink Cutter Operator Name Role Phone Reilly Baker MD, PHD Unavailable Unava ilWayne Osborne Primary Care Provider [phone] Dafne Hilton MD Unavailable [phone] Desi Swenson NP Unavailable [phone] Encounter Details Date Type Department Care Team Description 09/30/2023 Pt. Non Urgent Medical Question Gastroenterology - [place] 175 [facility] [address] [place] [phone] Kevin Oliva PA-C [address] [address] Social History Tobacco Use Types Packs/Day Years [...] Type Specialty Care Team Description 04/29/2027 Supervisor Crack Off Report Abstract, Provider documented as of this encounter Visit Diagnoses Not on filedocumented in this encounter Care Teams Wink Cutter Operator Relationship Specialty Start Date End Date Wayne Jaimes [address] [place] [address] PCP - General Internal Medicine 02/16/22 Reilly Baker MD, PHD Surgeon Neurosurgery 01/20/22 Dafne Hilton MD [address] [place] [address] Specialist Cardiology 10/13/22 Desi Swenson NP [address] [place] [address] Cardiology 02/29/24 documented as of this encounter
--- OUTSIDE RECORDS SUMMARY | 2024-09-14 18:18 | XMS_ITS | Encounter Summary ---
Author Organization [facility] Address [address] [place] [address] Care Team Providers Care Optics Manufacturing Technician Name Role Phone Brett Velásquez MD Primary Care Provider Reilly Stewart MD, PHD Unavailable Unava ilBrett Bailon MD Primary Care Provider Wayne Dickson Primary Care Provider Dafne Hilton MD Unavailable [phone] Desi Swenson NP Unavailable [phone] Encounter Details Date Type Department Care Team Description 10/04/2018 Release of Information Medical Records [address] [place] [address] Abstract, Provider Social History Tobacco Use Types [...] Date Type Specialty Care Team Description 04/29/2027 Manager Auto Report Abstract, Provider documented as of this encounter Visit Diagnoses Not on filedocumented in this encounter Care Teams Optics Manufacturing Technician Relationship Specialty Start Date End Date Brett Velásquez MD PCP - General Internal Medicine 04/21/16 01/25/22 Brett Velásquez MD PCP - General Internal Medicine 01/26/22 02/15/22 Wayne Jaimes [address] [place] [address] PCP - General Internal Medicine 02/16/22 Reilly Baker MD, PHD Surgeon Neurosurgery 01/20/22 Dafne Hilton MD [address] [place] [address] Specialist Cardiology 10/13/22 Desi Swenson NP [address] [place] [address] Cardiology 02/29/24 documented as of this encounter
--- OUTSIDE RECORDS SUMMARY | 2024-09-14 18:18 | XMS_ITS | Encounter Summary ---
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) Social History [...] Date Type Specialty Care Team Description 04/29/2027 Operator Specialist Communications Report Abstract, Provider documented as of this encounter Visit Diagnoses Not on filedocumented in this encounter Care Teams Quality Lead Relationship Specialty Start Date End Date Brett Velásquez MD PCP - General Internal Medicine 04/21/16 01/25/22 Brett Velásquez MD PCP - General Internal Medicine 01/26/22 02/15/22 Wayne Jaimes [address] [place] [address] PCP - General Internal Medicine 02/16/22 Reilly Baker MD, PHD Surgeon Neurosurgery 01/20/22 Dafne Hilton MD [address] [place] [address] Specialist Cardiology 10/13/22 Desi Swenson NP [address] [place] [address] Cardiology 02/29/24 documented as of this encounter
--- OUTSIDE RECORDS SUMMARY | 2024-09-14 18:18 | XMS_ITS | Encounter Summary ---
Author Organization [facility] Address [address] [place] [address] Care Team Providers Care Agricultural Research Technologist Name Role Phone Brett Velásquez MD Primary Care Provider Reilly Stewart MD, PHD Unavailable UnaBrett Davis MD Primary Care Provider Wayne Dickson Primary Care Provider [phone] Dafne Hilton MD Unavailable [phone] Desi Swenson NP Unavailable [phone] Reason for Visit * Reason Comments E-prescribe Rx Request Encounter Details Date Type Department Care Team Description 05/05/2021 Refill [facility] [address] [address] Hermes Alegre MD [address] [address] E-prescribe Rx Request Social History Tobacco Use Types Packs/Day Years [...] Type Specialty Care Team Description 04/29/2027 Cigar Making Machine Operator Report Abstract, Provider documented as of this encounter Visit Diagnoses Not on filedocumented in this encounter Care Teams Agricultural Research Technologist Relationship Specialty Start Date End Date Brett Velásquez MD PCP - General Internal Medicine 04/21/16 01/25/22 Brett Velásquez MD PCP - General Internal Medicine 01/26/22 02/15/22 Wayne Jaimes [address] [place] [address] PCP - General Internal Medicine 02/16/22 Reilly Baker MD, PHD Surgeon Neurosurgery 01/20/22 Dafne iHlton MD [address] [place] [address] Specialist Cardiology 10/13/22 Desi Swenson NP [address] [place] [address] Cardiology 02/29/24 documented as of this encounter
--- OUTSIDE RECORDS SUMMARY | 2024-09-14 18:18 | XMS_ITS | Encounter Summary ---
Author Organization [facility] Address [address] [place] [address] Care Team Providers Care Track Layer Name Role Phone Reilly Baker MD, PHD Unavailable Unava Wayne Blackman Primary Care Provider [phone] Dafne Hilton MD Unavailable [phone] Desi Swenson NP Unavailable [phone] Encounter Details Date Type Department Care Team Description 02/15/2024 Orders Only Gastroenterology - [place] 175 [facility] [address] [place] [address] Kevin Oliva PA-C 175 [facility] [address] [place] [address] Gastroesophageal reflux disease, unspecified whether esophagitis present; Esophageal dysmotility; Esophageal stenosis; H/O myocardial infarction, greater than 8 weeks; Dysphagia, unspecified type Social History Tobacco Use Types Packs/Day Years [...] Date Type Specialty Care Team Description 04/29/2027 Refrigeration Technician Report Abstract, Provider documented as of this encounter Procedures Procedure Name Priority Date/Time Associated Diagnosis Comments CHG RADIOLOGIC EXAM ESOPHAGUS SINGLE CONTRAST STUDY Routine 02/15/2024 Gastroesophageal reflux disease, unspecified whether esophagitis present Esophageal dysmotility Esophageal stenosis H/O myocardial infarction, greater than 8 weeks Dysphagia, unspecified type documented in this encounter Results * RADIOLOGIC EXAM ESOPHAGUS SINGLE CONTRAST STUDY (02/15/2024) Kevin Oliva PA-C RADIOLOGY documented in this encounter Visit Diagnoses Diagnosis Gastroesophageal reflux disease, unspecified whether esophagitis present Esophageal dysmotility Dyskinesia of esophagus Esophageal stenosis Stricture and stenosis of esophagus H/O myocardial infarction, greater than 8 weeks Old myocardial infarction Dysphagia, unspecified type documented in this encounter Care Teams Track Layer Relationship Specialty Start Date End Date Wayne Jaimes [address] [place] [address] PCP - General Internal Medicine 02/16/22 Reilly Baker MD, PHD Surgeon Neurosurgery 01/20/22 Dafne Hilton MD [address] [place] [address] Specialist Cardiology 10/13/22 Desi Swenson NP [address] [place] [address] Cardiology 02/29/24 documented as of this encounter
--- OUTSIDE RECORDS SUMMARY | 2024-09-14 18:18 | XMS_ITS | Encounter Summary ---
Author Organization [facility] Address [address] [place] [address] Care Team Providers Care Oil Well Cable Tool Operator Name Role Phone Reilly Baker MD, PHD Unavailable Unava ilWayne Osborne Primary Care Provider Dafne Hilton MD Unavailable [phone] Desi Swenson NP Unavailable [phone] Reason for Visit * Reason Onset Date Comments APPOINTMENT 08/19/2023 Encounter Details Date Type Department Care Team Description 08/19/2023 Telephone [facility] 175 [facility] [address] [place] [address] Wen Herrmann NP [address] [facility] [place] [address] APPOINTMENT Social History Tobacco Use Types Packs/Day [...] - 08/20/2023 1:35 PM EST Eve from [facility] called back and informed me that the patient had three requests open in the prior auth portal so she cancelled two as duplicates. Eve also added the J-code [id number] to therequest. * Telephone Encounter - Ena Randle - 08/19/2023 1:10 PM EST Eve Shi called in regards to a PA for pt Please call her back to discuss [phone] documented in this encounter Plan of Treatment Upcoming Encounters Date Type Specialty Care Team Description 04/29/2027 Trauma Manager Report Abstract, Provider documented as of this encounter Visit Diagnoses Not on filedocumented in this encounter Care Teams Oil Well Cable Tool Operator Relationship Specialty Start Date End Date Wayne Jaimes [address] [place] [address] PCP - General Internal Medicine 02/16/22 Reilly Baker MD, PHD Surgeon Neurosurgery 01/20/22 Dafne Hilton MD [address] [place] [address] Specialist Cardiology 10/13/22 Desi Swenson NP [address] [place] [address] Cardiology 02/29/24 documented as of this encounter
--- OUTSIDE RECORDS SUMMARY | 2024-09-14 18:18 | XMS_ITS | Encounter Summary ---
Author Organization [facility] Address [address] [place] [address] Care Team Providers Care Soa Integration Architect Name Role Phone Reilly Baker MD, PHD Unavailable Unava ilable Wayne Jaimes Primary Care Provider [phone] Dafne Hilton MD Unavailable [phone] Desi Swenson NP Unavailable [phone] Encounter Details Date Type Department Care Team Description 05/10/2023 Foreign Language Professor Report Medical Records [address] [place] [address] Gael Duvall Social History Tobacco Use Types [...] Date Type Specialty Care Team Description 04/29/2027 Foreign Language Professor Report Abstract, Provider documented as of this encounter Visit Diagnoses Not on filedocumented in this encounter Care Teams Soa Integration Architect Relationship Specialty Start Date End Date Wayne Jaimes [address] [place] [address] PCP - General Internal Medicine 02/16/22 Reilly Baker MD, PHD Surgeon Neurosurgery 01/20/22 Dafne Hilton MD [address] [place] [address] Specialist Cardiology 10/13/22 Desi Swenson NP [address] [place], [place] [address] Cardiology 02/29/24 documented as of this encounter
--- OUTSIDE RECORDS SUMMARY | 2024-09-14 18:18 | XMS_ITS | Encounter Summary ---
Author Organization [facility] Address [address] [place] [address] Care Team Providers Care Corduroy Cutting Supervisor Name Role Phone Reilly Baker MD, PHD Unavailable Unava Wayne Blackman Primary Care Provider [phone] Dafne Hilton MD Unavailable [phone] Desi Swenson NP Unavailable [phone] Reason for Visit * Reason Onset Date Comments Provider Call Back 08/17/2023 Encounter Details Date Type Department Care Team Description 08/17/2023 Telephone Gastroenterology - [place] 175 [facility] [address] [place] [id number] Kevin Oliav PA-C 175 [facility] [address] [place] [address] Provider Call Back Social History Tobacco Use [...] Date Type Specialty Care Team Description 04/29/2027 Extrusion Line Operator Report Abstract, Provider documented as of this encounter Visit Diagnoses Not on filedocumented in this encounter Care Teams Corduroy Cutting Supervisor Relationship Specialty Start Date End Date Wayne Jaimes [address] [place] [address] PCP - General Internal Medicine 02/16/22 Reilly Baker MD, PHD Surgeon Neurosurgery 01/20/22 Dafne Hilton MD [address] [place] [address] Specialist Cardiology 10/13/22 Desi Swenson NP [address] [place] [address] Cardiology 02/29/24 documented as of this encounter
--- OUTSIDE RECORDS SUMMARY | 2024-09-14 18:18 | XMS_ITS | Encounter Summary ---
Author Organization [facility] Address [address] [place] [address] Care Team Providers Care Political Research Scientist Name Role Phone Reilly Baker MD, PHD Unavailable Unava Wayne Blackman Primary Care Provider Dafne Hilton MD Unavailable [phone] Desi Swenson NP Unavailable [phone] Encounter Details Date Type Department Care Team Description 08/19/2023 Telephone Gastroenterology - [place] 175 [facility] [address] [place] [address] Kevin Oliva PA-C 175 [facility] [address] [place] [address] Social History Tobacco Use Types Packs/Day Years [...] encounter Miscellaneous Notes * Telephone Encounter - Ghislaine Auguste MD - 08/19/2023 7:33 PM EST The patient had normal EGDs in 2021 and 2020. He does not need another EGD. Dysphagia is due to dysmotility which could be side effect of medications or could be idiopathic. The patient needs to be given counseling regarding eating small bites etc. Do not schedule another endoscopy. The patient is getting colonoscopy for screening?? Dysmotility is not an indication for EGD. EGD is done for dysphagia and then if this is clear then we do proceed with barium swallow and once we confirm dysmotility then the workup is done. You do not need to repeat EGD after barium swallow. * Telephone Encounter - Kevin Oliva PA-C - 08/19/2023 6:11 PM EST Patient returns for further evaluation of esophageal dysmotility and dysphagia. He was seen in mid July for heartburn and reflux. He had undergone a barium swallow in October and was noted to have esophageal dysmotility as well as silent aspiration. He was switched to Nexium from Protonix and is using the Carafate. He has since seen the ENT and the ENT had also ordered a barium swallow done at [facility] and states that the same finding was found as far as esophageal dysmotility. Patient is scheduled for colonoscopy on August. Presently he is on Brilinta but was told that he is going to be stopping that at the end of the month. We will check with his PCP for how long in advance that he hasto hold it for the colonoscopy but is aware that he will need to hold this again for the endoscopy as well. Patient is looking to have both test performed on the same day and he is aware that we willbe reviewing his case to determine whether an EGD can be performed as well as the colonoscopy .patient will also need to have a Kiswahili microfabrication engineer manager. Please advise documented in this encounter Plan of Treatment Upcoming Encounters Date Type Specialty Care Team Description 04/29/2027 Construction Analyst Report Abstract, Provider documented as of this encounter Visit Diagnoses Not on filedocumented in this encounter Care Teams Political Research Scientist Relationship Specialty Start Date End Date Wayne Jaimes [address] [place] [address] PCP - General Internal Medicine 02/16/22 Reilly Baker MD, PHD Surgeon Neurosurgery 01/20/22 Dafne Hilton MD [address] [place] [address] Specialist Cardiology 10/13/22 Desi Swenson NP [address] [place] [address] Cardiology 02/29/24 documented as of this encounter
--- OUTSIDE RECORDS SUMMARY | 2024-09-14 18:19 | XMS_ITS | Encounter Summary ---
Author Organization [facility] Address [address] [place] [address] Care Team Providers Care Gas Welding Machine Operator Name Role Phone Brett Velásquez MD Primary Care Provider Reilly Stewart MD, PHD Unavailable Unava ilBrett Bailon MD Primary Care Provider Wayne Dickson Primary Care Provider [phone] Dafne Hilton MD Unavailable [phone] Desi Swenson NP Unavailable [phone] Encounter Details Date Type Department Care Team Description 07/21/2019 Release of Information Medical Records [address] [place] [address] Abstract, Provider Social History Tobacco Use Types [...] Type Specialty Care Team Description 04/29/2027 Head Of English Report Abstract, Provider documented as of this encounter Visit Diagnoses Not on filedocumented in this encounter Care Teams Gas Welding Machine Operator Relationship Specialty Start Date End Date Brett Velásquez MD PCP - General Internal Medicine 04/21/16 01/25/22 Brett Velásquez MD PCP - General Internal Medicine 01/26/22 02/15/22 Wayne Jaimes [address] [place] [address] PCP - General Internal Medicine 02/16/22 Reilly Baker MD, PHD Surgeon Neurosurgery 01/20/22 Dafne Hilton MD [address] [place] [address] Specialist Cardiology 10/13/22 Desi Swenson NP [address] [place] [address] Cardiology 02/29/24 documented as of this encounter
--- OUTSIDE RECORDS SUMMARY | 2024-09-14 18:19 | XMS_ITS | Encounter Summary ---
Author Organization [facility] Address [address] [place] [address] Care Team Providers Care Banking Assistant Name Role Phone Brett Velásquez MD Primary Care Provider Reilly Stewart MD, PHD Unavailable Unava Brett Villegas MD Primary Care Provider Wayne Dickson Primary Care Provider [phone] Dafne Hilton MD Unavailable [phone] Desi Swenson NP Unavailable [phone] Reason for Referral * Non MARTITA (Routine) - Authorized/Booked Specialty Diagnoses / Procedures Referred By Contac t Referred To Contact ORTHOPEDICS / Orthopedic Diagnoses Osteoarthritis of knees, bilateral Procedures REFERRAL TO ORTHOPEDICS (IN NETWORK) Brett Velásquez MD [address] [place] [address] Hermes Alegre MD 175 [facility] [address] [place] [address] Referral ID Status Reason Start Date Expiration Date V isits Requested Visits Authorized [id number] Authorized/ Booked 01/29/2021 01/29/2022 12 12 Reason for Visit * Reason Onset Date Comments Meat Counter Clerk Feedback 01/22/2021 Ortho Encounter Details Date Type Department Care Team Description 01/22/2021 Telephone Adult Medicine [address] [place] [address] Brett Velásquez MD Meat Counter Clerk Feedback (Ortho ) Social History Tobacco Use Types Packs/Day Years [...] encounter Miscellaneous Notes * Telephone Encounter - SUSAN Olsen - 01/22/2021 5:10 PM EDT Order signed in PCPs absence. * Telephone Encounter - Renu Calhoun - 01/22/2021 4:41 PM EDT Thony, Pended an in network orthopedics referral for this pateint in regards to OA Bilateral Knees. Patient's health plan requires a PCP referral to be submitted along with his claim. It is for Dr. Hermes Alegre to administer B/L knee Euflexxa injections for 3 consecutive weeks. Thank you! Renu Orthopedics Navigator documented in this encounter Plan of Treatment Upcoming Encounters Date Type Specialty Care Team Description 04/29/2027 Purse Seining Hand Report Abstract, Provider documented as of this encounter Visit Diagnoses Not on filedocumented in this encounter Care Teams Banking Assistant Relationship Specialty Start Date End Date Brett Velásquez MD PCP - General Internal Medicine 04/21/16 01/25/22 Brett Velásquez MD PCP - General Internal Medicine 01/26/22 02/15/22 Wayne Jaimes [address] [place] [address] PCP - General Internal Medicine 02/16/22 Reilly Baker MD, PHD Surgeon Neurosurgery 01/20/22 Dafne Hilton MD [address] [place] [address] Specialist Cardiology 10/13/22 Desi Swenson NP [address] [place] [address] Cardiology 02/29/24 documented as of this encounter
--- OUTSIDE RECORDS SUMMARY | 2024-09-14 18:19 | XMS_ITS | Encounter Summary ---
Author Organization [facility] Address [address] [place] [address] Care Team Providers Care Warping Machine Operator Name Role Phone Brett Velásquez MD Primary Care Provider Reilly Stewart MD, PHD Unavailable UnaBrett Davis MD Primary Care Provider Wayne Dickson Primary Care Provider [phone] Dafne Hilton MD Unavailable [phone] Desi Swenson NP Unavailable [phone] Encounter Details Date Type Department Care Team Description 01/13/2022 Service Correspondent Report Medical Records [address] [place] [address] Desi Li DPM Social History Tobacco Use [...] Date Type Specialty Care Team Description 04/29/2027 Service Correspondent Report Abstract, Provider documented as of this encounter Visit Diagnoses Not on filedocumented in this encounter Care Teams Warping Machine Operator Relationship Specialty Start Date End Date Brett Velásquez MD PCP - General Internal Medicine 04/21/16 01/25/22 Brett Velásquez MD PCP - General Internal Medicine 01/26/22 02/15/22 Wayne Jaimes [address] [place] [address] PCP - General Internal Medicine 02/16/22 Reilly Baker MD, PHD Surgeon Neurosurgery 01/20/22 Dafne Hilton MD [address] [place] [address] Specialist Cardiology 10/13/22 Desi Swenson NP [address] [place] [address] Cardiology 02/29/24 documented as of this encounter
--- OUTSIDE RECORDS SUMMARY | 2024-09-14 18:19 | XMS_ITS | Encounter Summary ---
Author Organization [facility] Address [address] [place] [address] Care Team Providers Care Director Insurance Name Role Phone Brett Velásquez MD Primary Care Provider Reilly Stewart MD, PHD Unavailable UnaBrett Davis MD Primary Care Provider Wayne Dickson Primary Care Provider [phone] Dafne Hilton MD Unavailable [phone] Desi Swenson NP Unavailable [phone] Encounter Details Date Type Department Care Team Description 02/16/2019 Orders Only Medical Records [address] [place] [address] Yuliana Auguste MD [address] [place] [address] Social History Tobacco Use Types Packs/Day Years [...] Date Type Specialty Care Team Description 04/29/2027 Advertising Solicitor Report Abstract, Provider documented as of this encounter Procedures Procedure Name Priority Date/Time Associated Diagnosis Comments OUTSIDE PATHOLOGY Routine 02/14/2019 documented in this encounter Results * OUTSIDE PATHOLOGY (02/14/2019) H Perez Auguste MD OUTSIDE LAB documented in this encounter Visit Diagnoses Not on filedocumented in this encounter Care Teams Director Insurance Relationship Specialty Start Date End Date Brett Velásquez MD PCP - General Internal Medicine 04/21/16 01/25/22 Brett Velásquez MD PCP - General Internal Medicine 01/26/22 02/15/22 Wayne Jaimes [address] [place] [address] PCP - General Internal Medicine 02/16/22 Reilly Baker MD, PHD Surgeon Neurosurgery 01/20/22 Dafne Hilton MD [address] [place], [place] [address] Specialist Cardiology 10/13/22 Desi Swenson NP [address] [place] [address] Cardiology 02/29/24 documented as of this encounter
--- OUTSIDE RECORDS SUMMARY | 2024-09-14 18:19 | XMS_ITS | Encounter Summary ---
Author Organization [facility] Address [address] [place] [address] Care Team Providers Care Chief Operating Officer Name Role Phone Brett Velásquez MD Primary Care Provider Keisha Luna MD Primary Care Provider [phone] Brett Velásquez MD Primary Care Provider Reilly Stewart MD, PHD Unavailable Unava ilable Brett Velásquez MD Primary Care Provider Wayne Dickson Primary Care Provider [phone] Dafne Hilton MD Unavailable [phone] Desi Swenson NP Unavailable [phone] Encounter Details Date Type Department Care Team Description 06/06/2014 Dispensary Clerk Report Medical Records [address] [place] [address] Rehab., [place] Social History Tobacco Use Types Packs/Day Years [...] Date Type Specialty Care Team Description 04/29/2027 Dispensary Clerk Report Abstract, Provider documented as of this encounter Visit Diagnoses Not on filedocumented in this encounter Care Teams Chief Operating Officer Relationship Specialty Start Date End Date Brett Velásquez MD PCP - General Internal Medicine 10/29/11 06/19/15 Keisha Chavez MD [address] [place] [address] PCP - General Internal Medicine 06/20/15 04/20/16 Brett Velásquez MD PCP - General Internal Medicine 04/21/16 01/25/22 Brett Velásquez MD PCP - General Internal Medicine 01/26/22 02/15/22 Wayne Jaimes [address] [place] [address] PCP - General Internal Medicine 02/16/22 Reilly Baker MD, PHD [address] [place] [address] Surgeon Neurosurgery 01/20/22 Dafne Hilton MD [address] [place] [address] Specialist Cardiology 10/13/22 Desi Swenson NP [address] [place] [address] Cardiology 02/29/24 documented as of this encounter
--- OUTSIDE RECORDS SUMMARY | 2024-09-14 18:19 | XMS_ITS | Encounter Summary ---
Author Organization [facility] Address [address] [place] [address] Care Team Providers Care Senior Commissary Agent Name Role Phone Reilly Baker MD, PHD Unavailable Unava ilable Wayne Jaimes Primary Care Provider Dafne Hilton MD Unavailable [phone] Desi Swenson NP Unavailable [phone] Encounter Details Date Type Department Care Team Description 08/06/2023 Hospital Medical Records [address] [place] [address] Ankita Yanes MD [address] [place] [address] [address] [place] [address] Social History Tobacco Use Types Packs/Day Years [...] Type Specialty Care Team Description 04/29/2027 Biological Aide Report Abstract, Provider documented as of this encounter Visit Diagnoses Not on filedocumented in this encounter Care Teams Senior Commissary Agent Relationship Specialty Start Date End Date Wayne Jaimes [address] [place] [address] PCP - General Internal Medicine 02/16/22 Reilly Baker MD, PHD Surgeon Neurosurgery 01/20/22 Dafne Hilton MD [address] [place] [address] Specialist Cardiology 10/13/22 Desi Swenson NP [address] [place] [address] Cardiology 02/29/24 documented as of this encounter
--- OUTSIDE RECORDS SUMMARY | 2024-09-14 18:19 | XMS_ITS | Clinical Summary ---
Author Organization [facility] Address [address] [place] [address] Care Team Providers Care Nurse Specialist Name Role Phone Reilly aBker MD, PHD Unavailable Unava Wayne Blackman Primary Care Provider [phone] Dafne Hilton MD Unavailable [phone] Desi Swenson NP Unavailable [phone] Allergies No known active allergies Medications Medication [...] examination 04/30/2023 Coronary artery disease invo lving [place] coronary artery of [place] heart with angina pectoris 12/17/2022 Last Assessment [...] he stopped this at the 1 year mraie status post stent placement. Continue with daily [...] has been considering following up with a mophead trimmer and wrapper. I have encouraged him to do so. [...] Date Type Specialty Care Team Description 04/29/2027 Surgical Tech Report Abstract, Provider Health Maintenance Due Date [...] C SCREENING Completed 04/18/2020, 013 Care Teams Nurse Specialist Relationship Specialty Start Date End Date Wayne Jaimes [address] [place] [address] [address] PCP - General Internal Medicine 02/16/22 Reilly Baker MD, PHD Surgeon Neurosurgery 01/20/22 Dafne Hilton MD [address] [place] [address] Specialist Cardiology 10/13/22 Desi Swenson NP [address] [place] [address] Cardiology 02/29/24
--- OUTSIDE RECORDS SUMMARY | 2024-09-14 18:19 | XMS_ITS | Encounter Summary ---
Author Organization [facility] Address [address] [place] [address] Care Team Providers Care Monument Letterer Name Role Phone Brett Velásquez MD Primary Care Provider Reilly Stewart MD, PHD Unavailable Unami Brett Villegas MD Primary Care Provider Wayne Dickson Primary Care Provider [phone] Dafne Hilton MD Unavailable [phone] Desi Swenson NP Unavailable [phone] Reason for Visit * Reason Onset Date Comments injection 02/02/2019 Encounter Details Date Type Department Care Team Description 02/02/2019 Telephone Physiatry - [address] [address] Sonny Abrams PA-C injection Social History Tobacco Use Types Packs/Day Years [...] encounter Miscellaneous Notes * Telephone Encounter - Bebe Seymour - 02/02/2019 9:05 AM EDT Request for repeat injection Date of last injection: bilateral L5 TFE: Location/body part where pain is being experienced: BACK PAIN Is this the same pain you had before your last injection?: yes Any recent injury: NO documented in this encounter Plan of Treatment Upcoming Encounters Date Type Specialty Care Team Description 04/29/2027 Reach Truck Operator Report Abstract, Provider documented as of this encounter Visit Diagnoses Not on filedocumented in this encounter Care Teams Monument Letterer Relationship Specialty Start Date End Date Brett Velásquez MD PCP - General Internal Medicine 04/21/16 01/25/22 Brett Velásquez MD PCP - General Internal Medicine 01/26/22 02/15/22 Wayne Jaimes [address] [place] [address] PCP - General Internal Medicine 02/16/22 Reilly Baker MD, PHD Surgeon Neurosurgery 01/20/22 Dafne Hilton MD [address] [place] [address] Specialist Cardiology 10/13/22 Desi Swenson NP [address] [place] [address] Cardiology 02/29/24 documented as of this encounter
--- OUTSIDE RECORDS SUMMARY | 2024-09-14 18:19 | XMS_ITS | Encounter Summary ---
Author Organization [facility] Address [address] [place] [address] Care Team Providers Care Rn Behavioral Health Name Role Phone Brett Velásquez MD Primary Care Provider Reilly Stewart MD, PHD Unavailable Unava ilBrett Bailon MD Primary Care Provider Wayne Dickson Primary Care Provider [phone] Dafne Hilton MD Unavailable [phone] Desi Swenson NP Unavailable [phone] Encounter Details Date Type Department Care Team Description 09/05/2019 [facility] Medical Records [address] [place] [address] Vladislav Antunez DO Social History Tobacco Use [...] Date Type Specialty Care Team Description 04/29/2027 Telephone Clerk Telegraph Office Report Abstract, Provider documented as of this encounter Visit Diagnoses Not on filedocumented in this encounter Care Teams Rn Behavioral Health Relationship Specialty Start Date End Date Brett Velásquez MD PCP - General Internal Medicine 04/21/16 01/25/22 Brett Velásquez MD PCP - General Internal Medicine 01/26/22 02/15/22 Wayne Jaimes [address] [place] [address] PCP - General Internal Medicine 02/16/22 Reilly Baker MD, PHD Surgeon Neurosurgery 01/20/22 Dafne Hilton MD [address] [place] [address] Specialist Cardiology 10/13/22 Desi Swenson NP [address] [place] [address] Cardiology 02/29/24 documented as of this encounter
--- OUTSIDE RECORDS SUMMARY | 2024-09-14 18:19 | XMS_ITS | Encounter Summary ---
Author Organization [facility] Address [address] [place] [address] Care Team Providers Care Manager New Product Name Role Phone Brett Velásquez MD Primary Care Provider Reilly Stewart MD, PHD Unavailable Unava ilBrett Bailon MD Primary Care Provider Wayne Dickson Primary Care Provider [phone] Dafne Hilton MD Unavailable [phone] Desi Swenson NP Unavailable [phone] Encounter Details Date Type Department Care Team Description 01/23/2019 Release of Information Medical Records [address] [place] [address] Abstract, Provider Social History Tobacco Use Types [...] Date Type Specialty Care Team Description 04/29/2027 Interlacer Report Abstract, Provider documented as of this encounter Visit Diagnoses Not on filedocumented in this encounter Care Teams Manager New Product Relationship Specialty Start Date End Date Brett Velásquez MD PCP - General Internal Medicine 04/21/16 01/25/22 Brett Velásquez MD PCP - General Internal Medicine 01/26/22 02/15/22 Wayne Jaimes [address] [place] [address] PCP - General Internal Medicine 02/16/22 Reilly Baker MD, PHD Surgeon Neurosurgery 01/20/22 Dafne Hilton MD [address] [place] [address] Specialist Cardiology 10/13/22 Desi Swenson NP [address] [place] [address] Cardiology 02/29/24 documented as of this encounter
--- OUTSIDE RECORDS SUMMARY | 2024-09-14 18:19 | XMS_ITS | Encounter Summary ---
Author Organization [facility] Address [address] [place] [address] Care Team Providers Care Mill Tender Name Role Phone Brett Velásquez MD Primary Care Provider Reilly Stewart MD, PHD Unavailable Brett sEpaña MD Primary Care Provider Wayne Dickson Primary Care Provider [phone] Dafne Hilton MD Unavailable [phone] Desi Swenson NP Unavailable [phone] Reason for Visit * Reason Onset Date Comments Medication Injection, Joint 12/04/2021 LVM advising pt. call [facility] [phone] and provide consent to dispense Gelsyn inj to our office Encounter Details Date Type Department Care Team Description 12/04/2021 Telephone [facility] [address] [address] Ena Whipple [facility] [address] [address] Medication Injection, Joint (LVM advising pt. call [facility] [phone] and provide consent to dispense Gelsyn inj [...] Date Type Specialty Care Team Description 04/29/2027 Process Mechanic Report Abstract, Provider documented as of this encounter Visit Diagnoses Not on filedocumented in this encounter Care Teams Mill Tender Relationship Specialty Start Date End Date Brett Velásquez MD PCP - General Internal Medicine 04/21/16 01/25/22 Brett Velásquez MD PCP - General Internal Medicine 01/26/22 02/15/22 Wayne Jaimes [address] [place] [address] PCP - General Internal Medicine 02/16/22 Reilly Baker MD, PHD Surgeon Neurosurgery 01/20/22 Dafne Hilton MD [address] [place] [address] Specialist Cardiology 10/13/22 Desi Swenson NP [address] [place] [address] Cardiology 02/29/24 documented as of this encounter
--- OUTSIDE RECORDS SUMMARY | 2024-09-14 18:19 | XMS_ITS | Encounter Summary ---
Author Organization [facility] Address [address] [place] [address] Care Team Providers Care Baker Helper Name Role Phone Brett Velásquez MD Primary Care Provider Keisha Luna MD Primary Care Provider [phone] Brett Velásquez MD Primary Care Provider Reilly Stewart MD, PHD Unavailable Unava ilable Brett Velásquez MD Primary Care Provider Wayne Dickson Primary Care Provider [phone] Dafne Hilton MD Unavailable [phone] Desi Swenson NP Unavailable [phone] Encounter Details Date Type Department Care Team Description 04/26/2014 Photographic Colorist Report Medical Records [address] [place] [address] Kareem Grier PA-C Social History Tobacco Use [...] Date Type Specialty Care Team Description 04/29/2027 Photographic Colorist Report Abstract, Provider documented as of this encounter Visit Diagnoses Not on filedocumented in this encounter Care Teams Baker Helper Relationship Specialty Start Date End Date Brett Velásquez MD PCP - General Internal Medicine 10/29/11 06/19/15 Keisha Chavez MD [address] [place] [address] PCP - General Internal Medicine 06/20/15 04/20/16 Brett Velásquez MD PCP - General Internal Medicine 04/21/16 01/25/22 Brett Velásquez MD PCP - General Internal Medicine 01/26/22 02/15/22 Wayne Jaimes [address] [place] [address] PCP - General Internal Medicine 02/16/22 Reilly Baker MD, PHD [address] [place] [address] Surgeon Neurosurgery 01/20/22 Dafne Hilton MD [address] [place] [address] Specialist Cardiology 10/13/22 Desi Swenson NP [address] [place] [address] Cardiology 02/29/24 documented as of this encounter
--- OUTSIDE RECORDS SUMMARY | 2024-09-14 18:19 | XMS_ITS | Encounter Summary ---
Author Organization [facility] Address [address] [place] [address] Care Team Providers Care Vp Care Management Name Role Phone Brett Velásquez MD Primary Care Provider Reilly Stewart MD, PHD Unavailable Unaaz Brett Villegas MD Primary Care Provider Wayne Dickson Primary Care Provider Dafne Hilton MD Unavailable [phone] Desi Swenson NP Unavailable [phone] Reason for Visit * Reason Comments E-prescribe Rx Request Encounter Details Date Type Department Care Team Description 12/11/2021 Refill [facility] Medical [facility] [address] [facility] [address] [place] [id number] Ena Whipple PAKhushbooC [address] [address] E-prescribe Rx Request Social History Tobacco Use [...] Date Type Specialty Care Team Description 04/29/2027 Mmi Teacher Report Abstract, Provider documented as of this encounter Visit Diagnoses Not on filedocumented in this encounter Care Teams Vp Care Management Relationship Specialty Start Date End Date Brett Velásquez MD PCP - General Internal Medicine 04/21/16 01/25/22 Brett Velásquez MD PCP - General Internal Medicine 01/26/22 02/15/22 Wayne Jaimes [address] [place] [address] PCP - General Internal Medicine 02/16/22 Reilly Baker MD, PHD Surgeon Neurosurgery 01/20/22 Dafne Hilton MD [address] [place] [address] Specialist Cardiology 10/13/22 Desi Swenson NP [address] [place] [address] Cardiology 02/29/24 documented as of this encounter
--- OUTSIDE RECORDS SUMMARY | 2024-09-14 18:19 | XMS_ITS | Clinical Summary ---
Author Organization [facility] Address [address] [place] [address] Care Team Providers Care Bead Worker Sewing Name Role Phone Brett Velásquez MD Primary Care Provider [phone] Allergies No known active allergies Medications Medication [...] age to complete this topic Care Teams Bead Worker Sewing Relationship Specialty Start Date End Date Brett Velásquez MD PCP - General Internal Medicine 10/20/17
--- OUTSIDE RECORDS SUMMARY | 2024-09-14 18:19 | XMS_ITS | Encounter Summary ---
Author Organization [facility] Address [address] [place] [address] Care Team Providers Care Brush Finisher Name Role Phone Brett Velásquez MD Primary Care Provider Reilly Stewart MD, PHD Unavailable UnaBrett Davis MD Primary Care Provider Wayne Dickson Primary Care Provider [phone] Dafne Hilton MD Unavailable [phone] Desi Swenson NP Unavailable [phone] Reason for Visit * Reason Onset Date Comments Prior Authorization 06/17/2021 Encounter Details Date Type Department Care Team Description 06/17/2021 Telephone [facility] Medical [facility] [address] [place] [address] Joo Meadows MD Prior Authorization Social [...] - 06/17/2021 8:42 AM EST Sendy from [facility] called again to check on status of prior auth for Euflexxa injections. I told her that Samara sent a request to [employer] and is waiting on response. Sendy asked that I let Samara know she called to check on it and to please let her know when we receive approval. She can be reached at [phone] ext [phone]. documented in this encounter Plan of Treatment Upcoming Encounters Date Type Specialty Care Team Description 04/29/2027 Account Director Report Abstract, Provider documented as of this encounter Visit Diagnoses Not on filedocumented in this encounter Care Teams Brush Finisher Relationship Specialty Start Date End Date Brett Velásquez MD PCP - General Internal Medicine 04/21/16 01/25/22 Brett Velásquez MD PCP - General Internal Medicine 01/26/22 02/15/22 Wayne Jaimes [address] [place] [address] PCP - General Internal Medicine 02/16/22 Reilly Baker MD, PHD Surgeon Neurosurgery 01/20/22 Dafne Hilton MD [address] [place] [address] Specialist Cardiology 10/13/22 Desi Swenson NP [address] [place] [address] Cardiology 02/29/24 documented as of this encounter
--- OUTSIDE RECORDS SUMMARY | 2024-09-14 18:19 | XMS_ITS | Encounter Summary ---
Author Organization [facility] Address [address] [place] [address] Care Team Providers Care Occupational Therapist Assistants Name Role Phone Brett Velásquez MD Primary Care Provider Reilly Stewart MD, PHD Unavailable Unava ilBrett Bailon MD Primary Care Provider Wayne Dickson Primary Care Provider [phone] Dafne Hilton MD Unavailable [phone] Desi Swenson NP Unavailable [phone] Encounter Details Date Type Department Care Team Description 03/07/2019 [facility] Medical Records [address] [place] [address] Vladislav Antunez DO Social History Tobacco Use [...] Date Type Specialty Care Team Description 04/29/2027 Pie Filling Mixer Report Abstract, Provider documented as of this encounter Visit Diagnoses Not on filedocumented in this encounter Care Teams Occupational Therapist Assistants Relationship Specialty Start Date End Date Brett Velásquez MD PCP - General Internal Medicine 04/21/16 01/25/22 Brett Velásquez MD PCP - General Internal Medicine 01/26/22 02/15/22 Wayne Jaimes [address] [place] [address] PCP - General Internal Medicine 02/16/22 Reilly Baker MD, PHD Surgeon Neurosurgery 01/20/22 Dafne Hilton MD [address] [place] [address] Specialist Cardiology 10/13/22 Desi Swenson NP [address] [place] [address] Cardiology 02/29/24 documented as of this encounter
== END 2024-09-14 15:39 | disposition home or self-care (01) ==
PROVIDERS: PCP Internal Medicine; Visit Provider Internal Medicine Cardiovascular Disease
DX: R07.9 Chest pain, unspecified (principal)
CPT/HCPCS: 99214; G2211

== ENCOUNTER → 2024-09-14 14:48 | Outpatient (BNVA) | payer OTHER, SELFPAY | PROVIDERS: PCP Internal Medicine; Visit Provider Internal Medicine Cardiovascular Disease | DX: R07.9 Chest pain, unspecified (principal); K22.70 Barrett's esophagus without dysplasia; K27.9 Peptic ulcer, site unspecified, unspecified as acute or chronic, without hemorrhage or perforation; K29.60 Other gastritis without bleeding | CPT/HCPCS: 99212 ==

== ENCOUNTER 2024-09-19 06:33 | Outpatient (REF) | payer OTHER, SELFPAY ==
--- OUTSIDE RECORDS SUMMARY | 2024-09-19 06:36 | XMS_ITS | Encounter Summary ---
Author Organization [employer] Address [address] [place] [address] [address] [place] [address] Care Team Providers Care Material Cutter Name Role Phone Unavailable Primary Care Provider Unavailabl e Encounter Details Date Type Department Care Team (Latest Contact Info) Description 01/15/2021 Abstract [facility] CONVERSIONS Dental, Provider, DDS Social History [...]
--- OUTSIDE RECORDS SUMMARY | 2024-09-19 06:36 | XMS_ITS | Clinical Summary ---
Author Organization [employer] [facility] [employer] Address [address] [place] [address] 7 [place] [address] Care Team Providers Care Brass Wind Instrument Maker Name Role Phone Unavailable Primary Care Provider [...]
--- OUTSIDE RECORDS SUMMARY | 2024-09-19 06:36 | XMS_ITS | Encounter Summary ---
Author Organization [employer] Address [address] [place] [address] [address], [place] [address] Care Team Providers Care Editor Continuity And Script Name Role Phone Unavailable Primary Care Provider Unavailabl e Encounter Details Date Type Department Care Team (Latest Contact Info) Description 01/23/2022 Abstract [facility] CONVERSIONS Dental, Provider, DDS Social History Tobacco [...]
--- OUTSIDE RECORDS SUMMARY | 2024-09-19 06:36 | XMS_ITS ---
Author Organization [facility] Address [address] [facility] [address] [place] [address] Care Team Providers Care Laceworker Name Role Phone Wayne Jaimes MD Primary Care Provider DESI Burks Unavailable [phone] Allergies No Known Allergies REASON FOR VISIT [...] Not-Taking Diclofenac Sodium 1 % as directed Glass Polisher ally place 1 g onto the skin [...] W/U Status Risk Notes Problem Lumbar radiculopathy (435595824) Lumbar radiculopat hy, right (M54.16) Active confirmed Procedures Procedure Date Ordered Date Performed Result Body Sit e DRAIN/INJECT, SMALL JOINT/BURSA 04/10/2024 N/A Encounters Encounter Location Date Provider Diagnosis [facility] [address] [address] 04/10/2024 DESI LI Onychomycosis B35.1 ; Calcium [...] Date Notes Efinaconazole 10 % 1 application Glass Polisher ally Once a day for 90 days [...] Name:DESI LI, 10/11/2024 02:45:00 PM, [address], [address], Medications Administered Medication Instructions Date of Administration Dosage Notes dexAMETHasone Sod Phosphate PF 04/10/2024 0.5 m L Kenalog 04/10/2024 0.5 mL Progress Notes * Mckinley LEWISOB:1955 ([age] yo M)Acc No.[id number]:04/10/2024 Progress Note Patient:?Laina LEWIS Provider:?Desi Li DPM :1955???Age:68 Y???Sex:Male Nael e:04/10/2024 Address:[address] [place], [place] [address] Pcp:Wayne Jaimes MD Subjective: * Chief Complaints: [...] bilaterally, protective sensation intact 10/10 with 5.07 [place] Alisha bilaterally, vibratory sensation with tuning fork [...] RT J1100 INJ DEXAMETHASONE SODIM PHOSHATE 1 [id number] INJ TRIAMCINOLONE ACETONIDE 10 MG * Follow Up:?3 Months * Billing Information: * Visit Code:? 97707 Office Visit, Est Pt., Level 4. Modifiers: 25 * Procedure Codes:? 42824 DRAIN/INJECT, SMALL JOINT/BURSA. Modifiers: RT J1100 INJ DEXAMETHASONE SODIM PHOSHATE 1 MG. J3301 INJ TRIAMCINOLONE ACETONIDE 10 MG. * Sign off status: Completed true * Provider:?Desi Li DPM Date:? 04/10/2024 Generated for Tatiana lema/Nilsa/Glo on:?09/19/2024 06:36 AM EDT History and Physical Notes * HPI (History [...] bilaterally, protective sensation intact 10/10 with 5.07 [place] Alisha bilaterally, vibratory sensation with tuning fork [...]
--- OUTSIDE RECORDS SUMMARY | 2024-09-19 06:36 | XMS_ITS | Clinical Summary ---
Author Organization [facility] Address [address] [place] [address] Care Team Providers Care Dynamics Ax Solution Architect Name Role Phone Brett Velásquez MD Primary Care Provider [phone] Allergies No known active allergies Medications Medication [...] age to complete this topic Care Teams Dynamics Ax Solution Architect Relationship Specialty Start Date End Date Brett Velásquez MD PCP - General Internal Medicine 10/20/17
--- OUTSIDE RECORDS SUMMARY | 2024-09-19 06:37 | XMS_ITS | Data Portability ---
Author Organization [place] [facility] Address [address] [address] Care Team Providers Care Breaker Table Worker Name Role Phone SUMMER LOWE Primary [...] speech therapy referra l 2024 025 [email or web address] [facility], [address] [place] [address] [place], [address], 08/11/2024 11:57:42 speech therapy referra l - Appt 05/26 @ 8:30am 2023 024 [facility], [facility] [place], [address], 05/01/2024 16:23:00 Procedures None recorde d. Surgeries None recorde d. Imaging None recorde d. Medication Orders famotid ine 20 mg tablet 2024 025 [facility] [address] [place] [address], [address], 08/10/2024 15:05:18 nystati n 100,000 unit/mL oral suspens ion 2023 024 [facility], [address] [place] [address], [address], 05/10/2024 16:22:57 nystati n 100,000 unit/mL oral suspens ion 2023 024 [facility] [address] [place] [address], [address], 04/21/2024 14:42:09 Patient TargetsNo targets recorded. Patient InstructionsNo instructions recorded. Reason for Referral Appt 05/26 @ 8:30am Referring Physician: Eneida Mccall Otolaryngology, Encounter Date: 04/21/2024 Referring Physician: Eneida Mccall Otolaryngology, Encounter Date: 08/10/2024 Problems Name Problem SNOMED Code Status Onset Date Resolution Date Notes Provider Name and Address Organization Details Recorded Time Sensorine ural hearing loss of bilateral ears 509973785 Active 2019 Sensorine ural hearing loss, bilateral ; Note: Date Diagnosed : 02/26/2020 3:32 PM (H90.3) Note: Date Diagnosed : 02/26/2020 3:32 PM (H90.3) Not Available [facility] 00:53:14 Stomatiti s 36879599 Active 2020 Oral thrush; Note: Date Diagnosed : 04/14/2021 11:22 AM (B37.0) Not Available [facility] 4 02:18:55 Candidias is of mouth 05728881 Active 2020 Oral thrush; Note: Date Diagnosed : 04/14/2021 11:22 AM (B37.0) Not Available [facility] 4 02:18:55 Gastroeso phageal reflux disease without esophagit is 463529875 Active 2015 Gastro-es ophageal reflux disease without esophagit is; Note: Date Diagnosed : 07/22/2015 2:46 PM (K21.9) Not Available [facility] 4 02:19:18 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, unilatera l; Note: Date Diagnosed : 12/12/2019 3:31 PM (J38.01) Not Available [facility] 4 02:18:19 Dysphagia 52441301 Active 2022 Dysphagia , unspecifi ed; Note: Date Diagnosed : 10/27/2021 12:05 PM (R13.10) ; Start Date : 2 Other dysphagia ; Note: Date Diagnosed : 04/07/2023 1:44 PM (R13.19) Not Available [facility] 4 02:19:19 Benign paroxysma l positiona l vertigo 281530748 Active 2019 Benign paroxysma l vertigo, left ear; Note: Date Diagnosed : 02/26/2020 3:32 PM (H81.12) Not Available [facility] 4 02:18:20 Cough 33742052 Active 2015 Cough, unspecifi ed; Note: Changed from R05 to R05.9 ( 2 2:10 PM) , Date Diagnosed : 09/04/2015 3:10 PM (R05) Not Available [facility] 4 02:19:08 Oropharyn geal dysphagia 05515904 Active 2023 Dysphagia , oropharyn geal phase; Note: Date Diagnosed : 09/16/2023 1:19 PM (R13.12) Not Available [facility] 02:19:08 Hemoptysi s 26056319 Active 2023 ENEIDA MCCALL MD [address] [facility],[place] [address], [facility] [place], [address] , [place] - [facility] 14:33:59 Chronic sore throat 354463255 Active 2023 ENEIDA MCCALL MD [address] [place] [address],[place] [address], [facility] [place], [address] , [place] - [facility] 14:34:04 Chronic hoarsenes s 46523480980 05 Active 2023 ENEIDA MCCALL MD [address] [place] [address],[place] [address], [facility] [place], [address] , [facility] - [facility] 14:42:59 Problem Notes None recorded. Procedures Surgical History Date Name Laterality Status Provider Name and Address Organization Details Recorded Time 08/10/19 25 FFL_RE completed ENEIDA MCCALL MD [address] [place] [address],[place] [address], [place], [address], [place] - [facility] 08/10/2024 15:02:15 04/21/20 24 FFL_RE completed ENEIDA MCCALL MD [address] [place] [address],[place] [address], [place], [address], [facility] - [facility] 04/21/2024 14:41:39 transurethral prostatectomy completed Bibi Neal [place] - [facility] 05/10/2024 14:05:40 subtotal thyroidectomy completed Bibi Neal [place] - [facility] 05/10/2024 14:05:53 Imaging Results None recorded. Procedure Notes None recorded. Medical Equipment None Reported. Allergies No known drug allergies Medications Name Sig Start Date Stop Date Status Note LastModified by Organization Details LastModified Time losartan 50 mg tablet 05/06 completed Medicati on ID: [id number] B rand Name: losartan Send Method: E-Prescr [...] gram tablet 05/06 completed Medicati on ID: [id number] D uration Value: 7 Brand Name: valacycl [...] mucosal jelly 05/10 completed Medicati on ID: [id number] D uration Value: 14 Brand Name: lidocain [...] mg capsule 05/06 completed Medicati on ID: [id number] D uration Value: 90 Brand Name: tamsulos in Send Method: E-Prescr ibed Sub s Allowed: subs OK Speci al Instruct ion: TAKE ONE CAPSULE DAILY Me dication GenericN jay: tamsulos in Not Available Not Available Not Available pantopraz ole 40 mg tablet,de layed release 07/12 completed Medicati on ID: [id number] D uration Value: 30 Brand Name: pantopra [...] by mouth 07/12 completed Medicati on ID: [id number] D uration Value: 30 Prescri bed By [...] oral powder 05/10 completed Medicati on ID: [id number] D uration Value: 30 Brand Name: polyethy [...] layed release 12/11 completed Medicati on ID: [id number] P devonte d By Name: Trevon Gee [...] both nostrils 10/17 completed Medicati on ID: [id number] P rescribe d By Name: Trevon Gee rd, nd Name: Flonase Allergy Relief S end Method: E-Prescr ibed Sub s Allowed: subs OK Medic ationGen ericName : Flonase Allergy Relief Not Available Not Available Not Available Vitals Date Recorded Body height Body mass index (BMI) Body weight Provider Name and Address Organization Details Last Updated DateTime 04/21/2024 167.64 cm 27 kg/m2 52538.93 g Aakash Weaver [place] [facility] 04/21/2024 14:00:43 Date Recorded Body height Body weight Provider Name and Address Organization Details Last Updated DateTime 05/10/2024 167.64 cm 71593.93 g Bibi Neal [place] [facility] 05/10/2024 14:01:54 Date Recorded Body height Provider Name an d Address Organization Details Last Updated DateTime 08/10/2024 167.64 cm Aakash Weaver [facility] 08/10/2024 14:29:36 Social History None recorded. Functional Status None recorded. Mental Status None recorded. Family History Nothing Reported. Medical History Condition Response Hypertension Y Sleep Disorder Y GERD/Reflux Y Past Encounters Encounter ID Performer Location Encounter Start Date Encounter Closed Date Diagnosis/Indication Diagnosis SNOMED-CT Code Diagnosis ICD10 Code Diagnosis Note [id number] ENEIDA MCCALL MD [facility] [address] [address] 04/21/2024 13:44:06 04/21/2024 15:41:33 Hemoptysis 72804045 R04.2 resolved. laryngosco py negative today for bleeding Chronic sore throat 2754 70132 J31.2 likely due to thrush. Gastroesop hageal reflux disease without esophagitis 394077186 K21.9 continue esomeprazo le Candidiasis of mouth 797 57908 B37.0 FFL notable for montez in base of tongue. LIkely secondary to steroid inhalers. Will treat with nystatin. I asked him to call if not improved. No tumors on laryngosoc py. Chronic hoarseness 14899 99946 105 R49.0 will make voice therapy referral to [facility] [id number] VELASQUEZ GONZALEZ MD [facility] [address] [place] [address] 05/10/2024 13:45:35 05/10/2024 15:10:38 Candidiasis of mouth 49336084 B37.0 Chronic hoarseness 32218 59338 105 R49.0 Chronic sore throat 2754 44152 J31.2 Gastroesop hageal reflux disease without esophagitis 292960595 K21.9 [id number] ENEIDA MCCALL MD [facility] [address] [place] [address] 08/10/2024 13:56:29 08/10/2024 15:05:58 Chronic sore throat 112172333 J31.2 no evidence of thrush. he has breakthrou gh heartburn and I think the soreness is due to LPR. I will add dual therapy for reflux with famotidine in addition to his PPI. Gastroesop hageal reflux disease without esophagitis 769183887 K21.9 begin dual thearpy Candidiasis of mouth 797 41748 B37.0 resolved Chronic hoarseness 25865 91332 105 R49.0 will make voice therapy referral to [facility] since he could not be seen at [facility], gave reassuranc e no vocal cord lesions. Health Concerns Section Related Observation LastModified by Organization Detai ls LastModified Time None Recorded Concern Status LastModified by Organization Details LastModified Time None Recorded Advance Directives Directive None Recorded Payers Encounter Date Sequence Insurance Name Policy Number Policy Ayala Covered Member ID Ayala Member ID Guarantor Name 04/21/2024 1 [facility] Laina Lewis [id number] Laina Lewis 05/10/2024 1 [facility] Laina Lewis [id number] Laina Lewis 08/10/2024 1 [facility] Laina Lewis [id number] Laina Lewis Notes Date Note Type Note [...] September 2020. ENEIDA MCCALL MD [address] [facility] [address], [place], [address], [place] - [facility] 04/21/2024 14:43:45 05/10/2024 text/html 68-year-old male with [...] Normal MBS. VELASQUEZ QUINTERO MD [address] [facility] [address], [place], [address], [place] [facility] 05/11/2024 12:34:14 08/10/2024 text/html He has a [...] FOL in September 2020. ENEIDA MCCALL MD [address] [place] [address], [place], [address], [place] [facility] 08/10/2024 15:05:10
--- OUTSIDE RECORDS SUMMARY | 2024-09-19 06:37 | XMS_ITS ---
Author Organization [facility] Address [address] [facility] [address] [place] [address] Care Team Providers Care Food Consultant Name Role Phone Wayne Jaimes MD Primary Care Provider DESI Burks Unavailable [phone] Allergies No Known Allergies REASON FOR VISIT [...] Not-Taking Diclofenac Sodium 1 % as directed Dog Raiser ally place 1 g onto the skin [...] N/A Encounters Encounter Location Date Provider Diagnosis [facility] [address] [facility] [address] [place] [address] 12/24/2023 DESI LI Onychomycosis B35.1 ; Calcium [...] 30 days Efinaconazole 10 % 1 application Dog Raiser ally Once a day for 90 days [...] Name:DESI LI, 10/11/2024 02:45:00 PM, [address] [facility] [address], [place], [address], Medications Administered Medication Instructions Date of Administration Dosage Notes dexAMETHasone Sod Phosphate PF 12/24/2023 0.5 m L Kenalog 12/24/2023 0.5 mL Progress Notes * Mciknley LEWISOB:1955 (5 0 yo M)Acc No.[id number]:12/24/2023 Progress Note Patient:?Laina LEWIS Provider:?Desi Li DPM :1955???Age:68 Y???Sex:Male Nael e:12/24/2023 Address:[address] [place], [place] [address] Pcp:Wayne Jaimes MD Subjective: * Chief Complaints: [...] bilaterally, protective sensation intact 10/10 with 5.07 [place] Alisha bilaterally, vibratory sensation with tuning fork [...] RT J1100 INJ DEXAMETHASONE SODIM PHOSHATE 1 [id number] INJ TRIAMCINOLONE ACETONIDE 10 MG * Follow Up:?3 Months * Billing Information: * Visit Code:? 01638 Office Visit, Est Pt., Level 3. Modifiers: 25 * Procedure Codes:? DRAIN/INJECT, SMALL JOINT/BURSA. Modifiers: RT J1100 INJ DEXAMETHASONE SODIM PHOSHATE 1 MG. J3301 INJ TRIAMCINOLONE ACETONIDE 10 MG. * Sign off status: Completed true * Provider:?Desi Li DPM Date:? 12/24/2023 Generated for Tatiana lema/Nilsa/eTransmitting on:?09/19/2024 06:37 AM EDT History and Physical Notes * [...] bilaterally, protective sensation intact 10/10 with 5.07 [place] Alisha bilaterally, vibratory sensation with tuning fork [...]
--- OUTSIDE RECORDS SUMMARY | 2024-09-19 06:37 | XMS_ITS ---
Author Organization [facility] Address [address] [facility] [address] [place] [address] Care Team Providers Care Wet Wash Assembler Name Role Phone Wayne Jaimes MD Primary Care Provider DESI Burks Unavailable [phone] Allergies No Known Allergies REASON FOR VISIT [...] Active Diclofenac Sodium 1 % as directed Shipping Room Supervisor ally place 1 g onto the [...] N/A Encounters Encounter Location Date Provider Diagnosis [facility] [address] [address] 07/10/2024 DESI LI Onychomycosis B35.1 ; Calcium [...] Date Notes Efinaconazole 10 % 1 application Shipping Room Supervisor ally Once a day for 90 days [...] Name:DESI LI, 10/11/2024 02:45:00 PM, [address] [facility] [address], [place], [address], Medications Administered Medication Instructions Date of Administration Dosage Notes dexAMETHasone Sod Phosphate PF 07/10/2024 0.5 m L Kenalog 07/10/2024 0.5 mL Progress Notes * Mckinley LEWISOB:1955 ([age] yo M)Acc No.[id number]:07/10/2024 Progress Note Patient:Laina SANDOVAL Provider:?Desi Li DPM :1955???Age:68 Y???Sex:Male Nael e:07/10/2024 Address:[address] [place], [place] [phone] Pcp:Wayne Jaimes MD Subjective: * Chief Complaints: [...] bilaterally, protective sensation intact 10/10 with 5.07 [place] Alisha bilaterally, vibratory sensation with tuning fork [...] RT J1100 INJ DEXAMETHASONE SODIM PHOSHATE 1 [id number] INJ TRIAMCINOLONE ACETONIDE 10 MG * Follow Up:?3 Months * Billing Information: * Visit Code:? 27153 Office Visit, Est Pt., Level 4. Modifiers: 25 * Procedure Codes:? DRAIN/INJECT, SMALL JOINT/BURSA. Modifiers: RT J1100 INJ DEXAMETHASONE SODIM PHOSHATE 1 MG. J3301 INJ TRIAMCINOLONE ACETONIDE 10 MG. * Sign off status: Completed true * Provider:?Desi Li DPM Date:? 07/10/2024 Generated for Tatiana lema/Nilsa/Saraitting on:?09/19/2024 06:36 AM EDT History and Physical [...] bilaterally, protective sensation intact 10/10 with 5.07 [place] Alisha bilaterally, vibratory sensation with tuning fork [...]
--- OUTSIDE RECORDS SUMMARY | 2024-09-19 06:37 | XMS_ITS | Clinical Summary ---
Author Organization [address] [facility] Address [address] [place] [address] Phone Care Team Providers Care Ekg/Ecg Technician Name Role Phone Wayne Jaimes MD [...] Dizziness 04/30/2023 Coronary artery disease invo lving [place] coronary artery of [place] heart with angina pectoris 12/17/2022 ST elevation [...] Description 08/08/2024 12:45 PM EST Anesthesia Event [facility] [address] [place] [address] Bolivar Palmer MD 08/08/2024 11:38 AM EST - 08/08/2024 11:59 PM EST Hospital Encounter [facility] [address] [place] [address] Vladislav Antunez DO Chang, Daniel J, MD Radiculopathy, lumbar region Discharge Disposition: Home or Self Care 08/08/2024 6:21 AM EST - 08/08/2024 11:59 PM EST Hospital Encounter [facility] [address] [place] [phone] Pain Discharge Disposition: Home or Self Care 07/13/2024 Telephone [facility] [address] [place] [address] [place] [phone] Wayne Jaimes MD Medical Records from Last [...] fracture repair UPPER GASTROINTESTINAL ENDOSCOPY 01/13/2017 PROCEDURE: [place] UPPER GI ENDOSCOPY PERFORMED; COMMENT: normal UPPER GASTROINTESTINAL ENDOSCOPY 03/08/12 PROCEDURE: MN UPPER GI ENDOSCOPY PERFORMED; COMMENT: normal OTHER [...] Dr. Bell UPPER GASTROINTESTINAL ENDOSCOPY 09/17/2020 PROCEDURE: [place] UPPER GI ENDOSCOPY PERFORMED; COMMENT: Normal findings. [...] loose stools Coronary artery disease invo lving [place] coronary artery of [place] heart with angina pectoris (CMS/HCC) 12/17/2022 DX:Coronary artery dise ase involving [place] coronary artery of [place] heart with angina pectoris (HCC) Esophageal dysmotility DX:Esopha geal dysmotility Gastritis DX:Gastritis Dysphagia DX:Dysphagia Esophageal dysmotility DX:Esopha geal dysmotility Colon polyps DX:Colon polyps History of ID (myocardial infarction) DX:History of ID (myocardial infarction) Hyperlipidemia 03/06/2024 DX:Hyperlipidemi a JENNIFER [...] Care Team (Late st Contact Info) Description 10/04/2024 3:30 PM EDT Office Visit Orthopedic Surgery - [place] [address] [place] [address] [place] [address] Wen Herrmann NP [address] [facility] [address] [place] [address] 11/15/2024 3:15 PM EDT Office Visit Nephrology - [place] [address] [place] [phone] Eduard Mccormick MD [address] [place] [address] Health Maintenance Due Date Last Done Comments [...] patient's age to complete this topic Insurance [facility] MEDICARE [facility] MEDICAID Care Teams Ekg/Ecg Technician Relationship Specialty Start Date End Date Wayne Jaimes MD [address] [place] [address] PCP - General Internal Medicine 02/16/22
--- OUTSIDE RECORDS SUMMARY | 2024-09-19 06:37 | XMS_ITS | Clinical Summary ---
Author Organization [facility] Address 100 [facility] [address] [place] [address] Phone Care Team Providers Care Supervisor Throwing Department Name Role Phone Shelbie Upton MD Primary Care Provider [phone] Allergies No known active allergies Medications albuterol [...] to complete this topic Insurance MEDICAID [place] [facility] DUAL COMPLETE ([id number]) [facility] DUAL COMPLETE ([id number]) MEDICAID [place] Care Teams Supervisor Throwing Department Relationship Specialty Start Date End Date Shelbie Upton MD [address] [place] [address], [address] [place], [place] [phone] PCP - General Internal Medicine 02/04/24
[2024-09-19 07:21] LABS: Hematocrit 46.8 % (42.0-52.0); Hemoglobin 15.9 g/dl (14.0-18.0); Mean Corpuscular Hemoglobin 29.7 pg (27.0-33.0); Mean Corpuscular Volume 87.5 fL (80.0-98.0); Mean Platelet Volume 8.5 fL (9.4-12.4); Platelet Count 223 X10*3/uL (160-400); Red Blood Count 5.35 X10*6/uL (4.60-5.80); Red Cell Distribution Width 11.9 % (11.0-16.0); White Blood Count 4.2 X10*3/uL (4.8-10.8)
[2024-09-19 07:23] LABS: INTERNATIONAL NORM RATIO 0.9 (0.9-1.1); Prothrombin Time 10.4 SEC (10.9-12.4)
[2024-09-19 07:46] LABS: Anion Gap 11 (12-20); Blood Urea Nitrogen 14 mg/dL (9-16); Calcium 9.6 mg/dL (8.4-10.2); Carbon Dioxide 30 mmol/L (22-29); Chloride 109 mmol/L (96-108); Estimated Glomerular Filt Rate > 60; Glucose Random 91 mg/dL (60-115); Potassium 4.1 mmol/L (3.3-5.1); Sodium 146 mmol/L (135-145)
== END 2024-09-19 06:34 | disposition home or self-care (01) ==
LOC: HO.LAB 06:33
PROVIDERS: PCP Internal Medicine; Visit Provider Internal Medicine Cardiovascular Disease
DX: R07.9 Chest pain, unspecified (principal)
CPT/HCPCS: 36415; 80048; 85027; 85610

== ENCOUNTER → 2024-09-22 23:59 | Outpatient (BNV) | payer OTHER, SELFPAY | PROVIDERS: PCP Internal Medicine; Visit Provider Internal Medicine Cardiovascular Disease | DX: I20.89 Other forms of angina pectoris (principal) | CPT/HCPCS: 92920; 92978; 93458; 93571; 99152 ==

== ENCOUNTER 2024-10-12 13:43 | Outpatient (AMB) | payer OTHER, SELFPAY ==
--- NOTE | 2024-10-12 14:08 | MHC.OFFVIS ---
Vital Signs 10/12/24 14:12 Height 5 ft 4 in Weight 149 lb 0.52 oz BMI 25.6 BP 120/64 Blood Pressure Location Lt brachial Position Sitting Pulse 54 Pulse Source Pulse Oximeter Intake Visit Reasons: 4 wk follow up cardiac cath Intake Note: 4 wk f/up s/p cath Shore Man Required: Yes Shore Man Language: Divehi Shore Man Name: vidhya/ashley/[id number] Accompanied by: Self / Same As Patient Allergies No Known Allergies Allergy (Verified 08/31/24 14:03) Medication List - Last Reconciled 10/12/24 by Arnaldo Rodgers NP albuterol sulfate 90 mcg/actuation 2 puffs inhalation Q4H PRN aspirin 81 mg PO DAILY atorvastatin 40 mg PO DAILY betamethasone, augmented 0.05 % appl topical diclofenac sodium 1% 1 g topical BID 90 days efinaconazole 10% (Jublia) 1 appl topical DAILY ezetimibe 10 mg PO DAILY famotidine 20 mg PO BID fluticasone furoate-vilanterol 100-25 mcg/dose (Breo Ellipta) 1 ea inhalation DAILY gabapentin 300 mg PO BID ketoconazole 2% appl topical BID lidocaine-prilocaine 2.5-2.5 % 1 g topical BID linaclotide (Linzess) 145 mcg PO QAM losartan 25 mg PO DAILY metoprolol succinate ER (Toprol XL) 25 mg PO DAILY montelukast 10 mg PO QPM rabeprazole (AcipHex) 20 mg PO QAM sucralfate 10 mL PO QIDACHS HPI Comments Details: This is a 68-year-old male patient presenting for a follow-up visit. Patient is Divehi speaking and a virtual Divehi fiberglass autobody repairer was used throughout the visit. Patient with a history of hypertension, hyperlipidemia, and coronary cardiac disease with prior RCA stent placement in 2021. The patient was previously seen in the office for intermittent chest pain and exertional shortness of breath and patient underwent echocardiogram and stress test. Subsequently due to abnormal findings patient underwent cardiac catheterization with Dr. Ortega at [facility] and is now status post stent placement to the LAD. Today, the patient reports feeling much better overall and reports mild reproducible sternal pain otherwise is denying any exertional chest pain, shortness of breath, palpitations, dizziness, orthopnea, PND, leg edema, fatigue, presyncope, or syncope. Patient mentions he has been compliant with his medications and recently started cardiac rehab at [facility] which he is tolerating well. [facility] Medical History Finger laceration with complication Encounter to establish care Trigger finger Thyroid nodule Surgical History S/P cardiac cath H/O colonoscopy History of esophagogastroduodenoscopy (EGD) Hx of cataract extraction History of thyroid surgery History of prostate surgery Family History Sister Arthritis Mother Heart disease Lung cancer Father Hypertension Sister Thyroid cancer Social History Household Members: Spouse Housing: Apartment Are you a primary director of patient care to a significant other at home: No Do you presently have visiting nurse or other home services: No Alcohol intake: never Patient Tobacco Use Status: Never used Tobacco e-Cigarette/Vaping Use: Never Used Second Hand Smoke Exposure: No service: No Current occupational status: employed 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 Current occupational exposures/hazards: No Cognitive needs: No Hearing needs: No Vision needs: No Review of Systems Const Denies chills, Denies fatigue, Denies fever(s), Denies frequent falls, Denies weakness, Denies weight gain and Denies weight loss ENT Denies dizziness Card Denies chest pain, Denies leg edema, Denies lightheadedness, Denies palpitations, Denies dyspnea and Denies dyspnea on exertion Resp Denies cough, Denies dyspnea and Denies dyspnea on exertion GI Denies hematochezia Musc Denies abnormal gait, Denies muscle weakness, Denies numbness, Denies radiating pain into limb and Denies tingling Neuro Denies abnormal gait, Denies dizziness, Denies frequent falls, Denies numbness, Denies tingling and Denies weakness Endo Denies fatigue and Denies palpitations Physical Exam Vital Signs: Last Vital Signs Pulse 54 10/12/24 14:12 BP 120/64 10/12/24 14:12 BMI result Body Mass Index 25.6 Const General: cooperative, healthy appearing, comfortable and no acute distress Orientation/consciousness: patient oriented x3 HEENT Head: Yes normal to inspection Neck Neck: Yes normal visual inspection, Yes trachea midline and Yes supple Chest Chest palpation & inspection: normal inspection of the chest Resp Effort & Inspection: normal respiratory effort Auscultation: clear to auscultation bilaterally, no crackles, no rales, no rhonchi and no wheezes Cardio Jugular venous distension: no JVD Palpation: normal PMI Rate: regular rate Rhythm: regular rhythm Heart sounds: S1 normal heart sound present, S2 normal heart sound present, no click, no gallops, no murmurs and no rubs Peripheral pulses: Peripheral pulses 2+ throughout GI Inspection: Yes normal to inspection Palpation (GI): Soft to palpation Auscultation: normal bowel sounds Skin General skin exam: no rashes or lesions noted Neuro General: patient oriented x3 Extrem Other: Palpable and pulsating bulge on the right radial General: Yes normal to inspection, No no pedal edema and No calf tenderness Psych Appearance: grossly normal Mental Status: mental status grossly normal Speech and movement: Normal speech and movement present Assessment & Plan Assessment & Plan (1) S/P cardiac cath: Code(s): Z98.890 - Other specified postprocedural states Category: Surgical Plan: 09/22/2024-cardiac catheterization with Dr. Ortega at [facility] showed patent stent in the mid RCA, [id number] disease proximal to mid segment, 50% PLV and PDA stenosis, and mid LAD proximal stenosis at 60-70% which had changed compared to last year. IFR LAD was abnormal at 0.80 and is now status post successful PCI to mid LAD. Right wrist catheterization site healing well however has a pulsating bulge over the right radial artery. We will get an ultrasound today. Continue lifelong aspirin therapy and uninterrupted Brilinta therapy for at least 12 months. Continue atorvastatin, Zetia, losartan, and metoprolol. Most recent LDL at 99, not within goal. Patient's atorvastatin was increased to 40 mg at that time. We will repeat lipid panel in 3 months with a goal of LDL less than 70. (2) CAD (coronary artery disease): Code(s): I25.10 - Atherosclerotic heart disease of [place] coronary artery without angina pectoris Category: Medical Qualifiers: Coronary Disease-Associated Artery/Lesion type: [place] artery [place] vs. transplanted heart: [place] heart Associated angina: without angina Qualified Code(s): I25.10 - Atherosclerotic heart disease of [place] coronary artery without angina pectoris Plan: As above. (3) Hypertension: Code(s): I10 - Essential (primary) hypertension Category: Medical Plan: Blood pressure today is well-controlled. Continue current regimen. Advised monitoring blood pressures at home and keep a log of it. Ideally, blood pressure goal less than 130/80. (4) Pseudoaneurysm: Code(s): I72.9 - Aneurysm of unspecified site Category: Medical Plan: The ultrasound result was read by the time this note is being completed. 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 Patient has been made aware of this and a referral to vascular surgery is in place. Dr. Mccormick is also made aware of this. Advised heart healthy diet, regular exercise, med compliance, and aggressive management of vascular risk factors. Advised to seek ER care in case of exertional chest pain not resolved with rest. We will follow up with the patient in 4 month. In the interim, patient will call the office with any concerns or change in symptoms. This note was generated using voice recognition software. While every effort has been made to ensure accuracy and proper field contact technician, there may be occasional errors that could affect the content or meaning of the described symptoms. Orders: Orders Lipid Panel 3 Months I25.10 - Atherosclerotic heart disease of [place] coronary artery without angina pectoris US arterial duplex UE RT Today Z98.890 - Other specified postprocedural states Referrals Vascular Surgery Referral I72.9 - Aneurysm of unspecified site Medications: New ticagrelor 90 mg PO BID 90 tabs 3RF Coding Level of Care Code Est Pt Level 4 (85106) Complex EM visit Add On G2211 Diagnoses S/P cardiac cath Z98.890 Coronary artery disease involving [place] coronary artery of [place] heart without angina pectoris I25.10 Coronary Disease-Associated Artery/Lesion type: [place] artery [place] vs. transplanted heart: [place] heart Associated angina: without angina Hypertension I10 Pseudoaneurysm I72.9 Time Spent (min) 35 Comment Time spent in reviewing the chart, test results, assessment, counseling and documentation.
[2024-10-12 14:12] VITALS: BP 120/64; PULSE 54; BMI 25.6
--- OUTSIDE RECORDS SUMMARY | 2024-10-12 15:04 | XMS_ITS ---
Author Organization [facility] Address [address] [facility] [address] [place] [address] Care Team Providers Care Event Marketing Manager Name Role Phone Wayne Jaimes MD Primary Care Provider DESI Burks Unavailable [phone] Allergies No Known Allergies REASON FOR VISIT [...] Not-Taking Diclofenac Sodium 1 % as directed Sports Nutritionist ally place 1 g onto the skin [...] W/U Status Risk Notes Problem Lumbar radiculopathy ([id number]) Lumbar radiculopat hy, right (M54.16) Active confirmed Procedures Procedure Date Ordered Date Performed Result Body Sit e DRAIN/INJECT, SMALL JOINT/BURSA 04/10/2024 N/A Encounters Encounter Location Date Provider Diagnosis [facility] [address] [address] 04/10/2024 DESI LI Onychomycosis B35.1 ; Calcium [...] Date Notes Efinaconazole 10 % 1 application Sports Nutritionist ally Once a day for 90 days [...] Up: 3 Months, Reason: Provider Name:DESI LI, 01/10/2025 02:45:00 PM, [address], [address], Medications Administered Medication Instructions Date of Administration Dosage Notes dexAMETHasone Sod Phosphate PF 04/10/2024 0.5 m L Kenalog 04/10/2024 0.5 mL Progress Notes * Mckinley LEWISOB:1955 ([age] yo M)Acc No.[id number]:04/10/2024 Progress Note Patient:?Laina LEWIS Provider:?Desi Li DPM :1955???Age:68 Y???Sex:Male Nael e:04/10/2024 Address:[address] [place], [place] [phone] Pcp:Wayne Jaimes MD Subjective: * Chief Complaints: [...] bilaterally, protective sensation intact 10/10 with 5.07 [place] Alisha bilaterally, vibratory sensation with tuning fork [...] RT J1100 INJ DEXAMETHASONE SODIM PHOSHATE 1 [id number] INJ TRIAMCINOLONE ACETONIDE 10 MG * Follow Up:?3 Months * Billing Information: * Visit Code:? 98818 Office Visit, Est Pt., Level 4. Modifiers: 25 * Procedure Codes:? 17248 DRAIN/INJECT, SMALL JOINT/BURSA. Modifiers: RT J1100 INJ DEXAMETHASONE SODIM PHOSHATE 1 MG. J3301 INJ TRIAMCINOLONE ACETONIDE 10 MG. * Sign off status: Completed true * Provider:?Desi Li DPM Date:? 04/10/2024 Generated for Tatiana lema/Nilsa/Glo on:?10/12/2024 03:04 PM EDT History and Physical Notes * HPI [...] bilaterally, protective sensation intact 10/10 with 5.07 [place] Alisha bilaterally, vibratory sensation with tuning fork [...]
--- OUTSIDE RECORDS SUMMARY | 2024-10-12 15:04 | XMS_ITS | Clinical Summary ---
Author Organization [facility] [employer] Address [address] [place] [address] 7 [place] [address] Care Team Providers Care Preventive Medicine Officer Name Role Phone Unavailable Primary Care Provider [...]
--- OUTSIDE RECORDS SUMMARY | 2024-10-12 15:04 | XMS_ITS | Clinical Summary ---
Author Organization 175 [facility] Address [address] [place] [address] Phone Care Team Providers Care Chief Of Staff Name Role Phone Wyane Jaimes MD Primary Care Provider Allergies No [...] 3 times daily as needed. 07/31/19 Active atorvastatin (LIPITOR) 10 mg tablet Take 1 tablet by mouth once daily 90 tablet 08/03/19 Active cimetidine (TAGAMET) 800 mg tablet Take 1 tablet (800 mg total) by mouth at bedtime. Active albuterol HFA (PROAIR HFA ; PROVENTIL HFA ; VENTOLIN HFA) 90 mcg/actuation inhaler Inhale 2 puffs by mouth every 6 (six) hours if needed for wheezing. Active diclofenac (VOLTAREN) 1 % topical gelIndications:Myra masters osteoarthritis of right knee,Primary osteoarthritis of left knee Apply 4 g topically 4 (four) times a day if needed (pain or swelling). 100 g 5 10/05/19 25 Active diclofenac (VOLTAREN) 1 % topical gelIndications:Myra masters osteoarthritis of right knee,Primary osteoarthritis of left knee Apply 4 g topically 4 (four) times a day if needed (pain or swelling). 100 g 2 06/06/20 24 025 Discontin ued(Reord er) Active Problems Problem Noted Date Diagnosed Date Straining with stools 08/27/2023 Chronic midline low back pain without sciatica 0 08/09/2023 Dizziness 04/30/2023 Coronary artery disease invo lving [place] coronary artery of [place] heart with angina pectoris 12/17/2022 ST elevation [...] Encounters Date Type Department Care Team Description 10/04/2024 3:30 PM EDT Office Visit Orthopedic Surgery [facility] [address] [phone] Wen Herrmann NP Primary osteoarthritis of right knee (Primary Dx); Primary osteoarthritis of left knee 08/08/2024 12:45 PM EST Anesthesia Event [facility] [address] [place] [phone] Bolivar Palmer MD 08/08/2024 11:38 AM EST - 08/08/2024 11:59 PM EST Hospital Encounter [facility] [address] [place] [phone] Vladislav Antunez DO Chang, Daniel J, MD Radiculopathy, lumbar region Discharge Disposition: Home or Self Care 08/08/2024 6:21 AM EST - 08/08/2024 11:59 PM EST Hospital Encounter [facility] [address] [place] [address] Pain Discharge Disposition: Home or Self Care from Last 3 Months Immunizations Name Administration [...] fracture repair UPPER GASTROINTESTINAL ENDOSCOPY 01/13/2017 PROCEDURE: [place] UPPER GI ENDOSCOPY PERFORMED; COMMENT: normal UPPER GASTROINTESTINAL ENDOSCOPY 03/08/12 PROCEDURE: [place] UPPER GI ENDOSCOPY PERFORMED; COMMENT: normal OTHER SURGICAL HISTORY 2019 PROCEDURE: HISTORICAL SUBTOTAL THYROIDECTOMY; COMMENT: dr. hernandez 2019 TURP / TRANSURETHRAL INCISIO N / DRAINAGE PROSTATE 02/20/2020 PROCEDURE: HISTORICAL TURP; COMMENT: dr. bell COLONOSCOPY 02/14/2019 PROCEDURE: HISTORICAL COLONOSCOPY; COMMENT: Dr. Auguste - Trudy rectal adenomatous polyps. internal hemorrhoids. repeat 5 years. OTHER SURGICAL HISTORY 06/2020 PROCEDURE: HISTORICAL UNSPECIFIED SURGERY; COMMENT: urethral stricture repair- Dr. Bell UPPER GASTROINTESTINAL ENDOSCOPY 09/17/2020 PROCEDURE: [place] UPPER GI ENDOSCOPY PERFORMED; COMMENT: Normal findings. 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 [place] heart with angina pectoris (CMS/HCC) 12/17/2022 DX:Coronary artery dise ase involving [place] coronary artery of [place] heart with angina pectoris (HCC) Esophageal dysmotility DX:Esopha geal dysmotility Gastritis DX:Gastritis Dysphagia DX:Dysphagia Esophageal dysmotility DX:Esopha geal dysmotility Colon polyps DX:Colon polyps History of NC (myocardial infarction) DX:History of NC (myocardial infarction) Hyperlipidemia 03/06/2024 DX:Hyperlipidemi a JENNIFER [...] Care Team (Late st Contact Info) Description 11/15/2024 3:15 PM EDT Office Visit Nephrology - [place] [address] [place] [address] Eduard Mccormick MD [address] [place] [address] Health Maintenance Due Date Last Done Comments [...] of not completing the topic RSV Immunization Adult Patients Completed 05/17/2023 COVID-19 Vaccine Completed 03/08/2024, 09/2022, [...] patient's age to complete this topic Insurance [facility] MEDICARE [facility] MEDICAID Care Teams Chief Of Staff Relationship Specialty Start Date End Date Wayne Jaimes MD [address] [place] [phone] PCP - General Internal Medicine 02/16/22
--- OUTSIDE RECORDS SUMMARY | 2024-10-12 15:04 | XMS_ITS | Clinical Summary ---
Author Organization [facility] Address [address] [place] [address] Care Team Providers Care Tours Hostess Name Role Phone Brett Velásquez MD Primary Care Provider [phone] Allergies No known active allergies Medications Medication [...] age to complete this topic Care Teams Tours Hostess Relationship Specialty Start Date End Date Brett eVlásquez MD PCP - General Internal Medicine 10/20/17
--- OUTSIDE RECORDS SUMMARY | 2024-10-12 15:04 | XMS_ITS | Clinical Summary ---
Author Organization [facility] Address 100 [facility] [address] [place] [address] Phone Care Team Providers Care Conference Specialist Name Role Phone Shelbie Upton MD Primary Care Provider [phone] Allergies No known active allergies Medications albuterol [...] to complete this topic Insurance MEDICAID [place] [facility] DUAL COMPLETE ([id number]) [facility] DUAL COMPLETE ([id number]) MEDICAID [place] Care Teams Conference Specialist Relationship Specialty Start Date End Date Shelbie Upton MD [address] [place] [address], [address] [place], [place] [phone] PCP - General Internal Medicine 02/04/24
--- OUTSIDE RECORDS SUMMARY | 2024-10-12 15:04 | XMS_ITS | Encounter Summary ---
Author Organization [employer] Address [address] [place] [address] [place] [address] Care Team Providers Care Dispatch Lead Name Role Phone Unavailable Primary Care Provider Unavailabl e Encounter Details Date Type Department Care Team (Latest Contact Info) Description 01/23/2022 Abstract [facility] CONVERSIONS Dental, Provider, DDS Social [...]
--- OUTSIDE RECORDS SUMMARY | 2024-10-12 15:04 | XMS_ITS | Patient Health Record ---
Author Organization [facility] Address [address] [facility] [address] [place] [address] Care Team Providers Care Changer Fixer Name Role Phone Wayne Jaimes MD Primary Care Provider JORGE L Burks Unavailable [phone] Allergies No Known Allergies Reason For Referral No Information Medications Medication SIG (Take, Route, Frequency, Duration) Notes Start Date End Date Status Ezetimibe 10 MG 1 tablet Orally Once a day Active predniSONE 20 MG 1 tablet Orally Once a day Not-Taking Jublia 10 % APPLY TOPICALLY ONCE DAILY for 38 Active Brilinta 90 MG 1 tablet Orally Twic e a day Active Diclofenac Sodium 1 % as directed to the right foot Externally twice daily as needed for pain for 30 days 10/11/2024 Active Efinaconazole 10 % 1 application Externally Once a day for 90 days Active Tacrolimus 0.1 % 1 application to the right foot rash Externally Once a day for 30 days Active Griseofulvin Ultramicrosize 250 MG 1 tablet after a meal Orally once a day for 45 days Not-Taking Lidocaine-Prilocaine 2.5-2.5 % APPLY 1 GRAM OF CREAM TOPICALLY Externally twice daily for 30 days Active Lidocaine-Prilocaine 2.5-2.5 % APPLY 1 GRAM TOPICALLY TO THE RIGHT AND LEFT FOOT TWICE A DAILY DIRECTED for 38 Active Diclofenac Sodium 1 % as directed Houseperson ally place 1 g onto the skin bid Active Vitamin E 400 UNIT 1 capsule Orally Onc e a day Not-Taking Albuterol Sulfate 108 (90 Base) MCG/ACT 1 puff as needed Inhalation every 4 hrs Active Tamsulosin HCl 0.4 MG 1 capsule Orally O nce a day Not-Taking Multivitamin Not-Oseas ing Losartan Potassium 25 MG 1 tablet Orally 0.5 tab Once a day Active Lactulose 10 GM 1 packet Orally bid Not-Taking Aspirin 81 MG 1 tablet Orally Once a day Active Lidocaine 5 % 1 patch remove after 12 hours Externally Once a day Active Triamcinolone (oint)-Silicone Active Griseofulvin Ultramicrosize 250 MG 1 tablet after a meal Orally once a day for 90 days 01/13/2022 Not-Taking Atorvastatin Calcium 80 MG 1 tablet Oral ly Once a day Active Mupirocin 2 % 1 application Externally Twice a day for 30 days 01/13/2022 Not-Taking traMADol HCl 50 MG 1 tablet as needed Orally Once a day Active Vitamin D Not-Taking Sucralfate 1 GM/10ML 10 mL 1 hour before meals and at bedtime on an empty stomach Orally Four times a day Active Diclofenac Epolamine 1.3 % 1 patch as ne eded Externally Once a day for 30 days Not-Taking Voltaren Active Gabapentin 300 MG 1 capsule Orally bid Not-Taking Esomeprazole Magnesium 40 MG 1 capsule Orally Once a day Active Finasteride 5 MG 1 tablet Orally Once a day Not-Taking Metoprolol Tartrate 25 MG 1 tablet with food Orally Twice a day Active hydrOXYzine HCl 50 MG 1 tablet as needed Orally once a day for 30 day(s) 01/20/2021 Not-Taking Ketoconazole 2 % 1 application Externally Once a day Active Meclizine HCl 12.5 MG 2 tablets as neede d Orally 3 times daily Not-Taking Ciclopirox 8 % 1 application Externally Once a day Not-Taking Pantoprazole Sodium 20 MG 1 tablet Orall y Once a day Not-Taking Itraconazole 100 MG 1 capsule after a me al Orally Once a day for 30 days 04/15/2022 Not-Taking Problems Problem Type SNOMED Code ICD Code Onset Dates Problem Status W/U Status Risk Notes Problem 469608779698296 Primary osteoarthritis, right ankle and foot (M19.071) Active confirmed Problem 114112555 Primary osteoarthritis, left 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) Active confirmed Problem 304260594 Equinus contracture of right ankle (M24.571) Active confirmed Problem 1595410 Psoriasis (L40.9) Active confirmed Problem Lumbar radiculopathy (737917587) Lumbar radiculopathy, right (M54.16) Active confirmed Problem 991677699 Calcium pyrophosphate deposition disease (CPPD) (M11.20) Active confirmed Vital Signs Heart Rate 60 /min 10/11/2024 Temperature 97.5 degrees Fahrenheit 10/11/2024 Respiratory Rate 16 /min 10/11/2024 Height 5ft 6in in 10/11/2024 Weight 151.7 lbs 10/11/2024 BMI 24.48 kg/m2 10/11/2024 Procedures Procedure Date Ordered Date Performed Result Body Sit e DRAIN/INJECT, SMALL JOINT/BURSA 12/24/2023 N/A DRAIN/INJECT, SMALL JOINT/BURSA 04/10/2024 N/A DRAIN/INJECT, SMALL JOINT/BURSA 07/10/2024 N/A Encounters Encounter Location Date Provider Diagnosis [facility] [address] [address] 12/24/2023 JORGE L REDDY Onychomycosis B35.1 ; Calcium pyrophosphate deposition disease (CPPD) M11.20 ; Psoriasis L40.9 ; Hallux limitus of left foot M20.5X2 ; Hallux limitus of right foot M20.5X1 and Lumbar radiculopathy, right M54.16 [facility] [address] [address] 04/10/2024 JORGE L REDDY Onychomycosis B35.1 ; Calcium pyrophosphate deposition disease (CPPD) M11.20 ; Psoriasis L40.9 ; Hallux limitus of left foot M20.5X2 ; Hallux limitus of right foot M20.5X1 ; Lumbar radiculopathy, right M54.16 ; Achilles tendinitis, right leg M76.61 and Achilles tendinitis, left leg M76.62 [facility] [address] [address] 07/10/2024 JORGE L REDDY Onychomycosis B35.1 ; Calcium pyrophosphate deposition disease (CPPD) M11.20 ; Psoriasis L40.9 ; Hallux limitus of left foot M20.5X2 ; Hallux limitus of right foot M20.5X1 ; Lumbar radiculopathy, right M54.16 ; Achilles tendinitis, right leg M76.61 and Achilles tendinitis, left leg M76.62 [facility] [address] [facility] [address] [place] [address] 10/11/2024 JORGE L BARRY Onychomycosis B35.1 ; Calcium pyrophosphate deposition disease [...] to return when ready for the procedure. 10/11/2024 Onychomycosis (ICD-10 - B35.1) I reviewed with the patient various treatment methods for toenail fungus including: topical, oral, laser, and removal of the infected toenails. He had been using ciclopirox 8% solution without improvement. [...] to return when ready for the procedure. 10/11/2024 Calcium pyrophosphate deposition disease (CPPD) (ICD-10 - [...] follows up with rheumatology regarding this issue. I also recommended padding or a cutout of his inserts to help offload the offending joints. 04/10/2024 Calcium pyrophosphate deposition disease (CPPD) (ICD-10 [...] he does not need another refill today. 10/11/2024 Psoriasis (ICD-10 - L40.9) We discussed that [...] and wear on his shoes are equal. 10/11/2024 Hallux limitus of left foot (ICD-10 - [...] Pt instructed to ice/elevate the foot tonight. 10/11/2024 Hallux limitus of right foot (ICD-10 - M20.5X1) RX for diclofenac gel to apply to the right foot BID PRN pain. 10/11/2024 Lumbar radiculopathy, right (ICD-10 - M54.16) We [...] the right 4th and 5th toes. 07/10/2024 Lumbar radiculopathy, right (ICD-10 - M54.16) [...] Achilles tendinitis, left leg (ICD-10 - M76.62) 10/11/2024 Achilles tendinitis, right leg (ICD-10 - M76.61) He has evidence of Achilles tendinitis bilaterally on examination today. We discussed his morning pain is the most significant. We discussed using night splint to bed. I explained these can stretch the Achilles while he is sleeping to avoid the sharp pain when he steps down in the morning. He is in agreement with this plan. 07/10/2024 Achilles tendinitis, right leg (ICD-10 - [...] Achilles tendinitis, left leg (ICD-10 - M76.62) 10/11/2024 Achilles tendinitis, left leg (ICD-10 - M76.62) Plan Of Treatment Pending Test Test Name Order Date Body Fluid Culture, Sterile 04/30/2022 Hepatic Function Panel (7) 09/26/2020 MRI : Lower Ext Other Than Joint W/O 11/2021 X ray : Foot, left 3v 01/13/2022 X ray : Foot, left 3v 04/13/2023 X ray : Foot, right 3v 04/13/2023 X ray : Foot, right 3v 08/15/2020 X ray : Foot, right 3v 01/13/2022 DRAIN/INJECT, SMALL JOINT/BURSA 08/15/19 21 DRAIN/INJECT, SMALL JOINT/BURSA 02/18/20 21 DRAIN/INJECT, SMALL JOINT/BURSA 01/14/20 22 DRAIN/INJECT, SMALL JOINT/BURSA 06/15/20 23 DRAIN/INJECT, SMALL JOINT/BURSA 09/20/19 24 DRAIN/INJECT, SMALL JOINT/BURSA 06/14/20 24 DRAIN/INJECT, SMALL JOINT/BURSA 04/10/20 24 DRAIN/INJECT, SMALL JOINT/BURSA 07/10/20 24 Next Appt Details Provider Name:JORGE L REDDY, 01/10/2025 02:45:00 PM, [address] [facility] [address], [place], [address], Insurance Providers Payer Name Payer Address Payer Phone Subscriber Number Group Number Insured Name Patient Relationship to Insured Coverage Start Date Coverage End Date [employer] care medicare community [facility] [address] [address] [place] [address] [id number] [facility] - patient is the insured Medications Administered Medication Instructions Date of Administration Dosage Notes dexAMETHasone Sod Phosphate PF 09/20/2023 0.5 m L Kenalog 09/20/2023 0.5 mL dexAMETHasone Sod Phosphate PF 06/15/2023 0.5 m L Dexamethasone 01/13/2022 0.5 mg Dexamethasone 02/17/2021 0.5 mL Dexamethasone 08/15/2020 0.5 mL dexAMETHasone Sod Phosphate PF 07/10/2024 0.5 m L dexAMETHasone Sod Phosphate PF 04/10/2024 0.5 m L dexAMETHasone Sod Phosphate PF 12/24/2023 0.5 m L Kenalog 06/15/2023 0.5 mL Kenalog 01/13/2022 0.5 mL Kenalog 02/17/2021 0.5 mL Kenalog 08/15/2020 0.5 mL Kenalog 07/10/2024 0.5 mL Kenalog 04/10/2024 0.5 mL Kenalog 12/24/2023 0.5 mL Medical (General) History Medical History [...] unspecified M10.9 status post thyroidectomy COVID vaccinated CPPD Surgical History Surgery Date(Month/Year) Appendectomy colonoscopy [facility]-hemorrhoids otherwise no rmal to the cecum colonoscopy -2 recta l adenomatous polyps.Internal hemorrhoids subtotal thyroidectomy [facility]P facial bone fracture repair urethral stricture repair. vocal cord surgery 09/2019 bilateral eye surgery 03/17/2022 cardiac stent 09/22/2024 Hospitalization History Reason Date(Month/Year) thyroidectomy
--- OUTSIDE RECORDS SUMMARY | 2024-10-12 15:04 | XMS_ITS | Encounter Summary ---
Author Organization [employer] Address [address] [place] [address] [address] Care Team Providers Care Sleeve Sewer Name Role Phone Unavailable Primary Care Provider Unavailabl e Encounter Details Date Type Department Care Team (Latest Contact Info) Description 01/15/2021 Abstract [facility] CONVERSIONS Dental, Provider, DDS Social History [...]
--- OUTSIDE RECORDS SUMMARY | 2024-10-12 15:04 | XMS_ITS | Data Portability ---
Author Organization [place] [facility] Address [address] [address] Care Team Providers Care Roll Cutting Operator Name Role Phone SUMMER LOWE Primary Care [...] speech therapy referra l 2024 025 [email or web address] [facility], [address] [place] [address] [place], [address], 09/19/2024 14:07:54 speech therapy referra l - Appt 05/26 @ 8:30am 2023 024 [facility], [facility] [place], [address], 05/01/2024 16:23:00 Procedures None recorde d. Surgeries None recorde d. Imaging None recorde d. Medication Orders famotid ine 20 mg tablet 2024 025 [facility] [address] [place] [address], [id number], 08/10/2024 15:05:18 nystati n 100,000 unit/mL oral suspens ion 2023 024 [facility], [address] [place] [address], [id number], 05/10/2024 16:22:57 nystati n 100,000 unit/mL oral suspens ion 2023 024 [facility] [address] [place] [address], [id number], 04/21/2024 14:42:09 Patient TargetsNo targets recorded. Patient InstructionsNo instructions recorded. Reason for Referral Appt 05/26 @ 8:30am Referring Physician: Eneida Mccall Otolaryngology, Encounter Date: 04/21/2024 Referring Physician: Eneida Mccall Otolaryngology, Encounter Date: 08/10/2024 Problems Name Problem SNOMED Code Status Onset Date Resolution Date Notes Provider Name and Address Organization Details Recorded Time Sensorine ural hearing loss of bilateral ears 063044979 Active 2019 Sensorine ural hearing loss, bilateral ; Note: Date Diagnosed : 02/26/2020 3:32 PM (H90.3) Note: Date Diagnosed : 02/26/2020 3:32 PM (H90.3) Not Available [facility] 00:53:14 Stomatiti s 42797138 Active 2020 Oral thrush; Note: Date Diagnosed : 04/14/2021 11:22 AM (B37.0) Not Available [facility] 4 02:18:55 Candidias is of mouth 27741077 Active 2020 Oral thrush; Note: Date Diagnosed : 04/14/2021 11:22 AM (B37.0) Not Available [facility] 4 02:18:55 Gastroeso phageal reflux disease without esophagit is 926698317 Active 2015 Gastro-es ophageal reflux disease without esophagit is; Note: Date Diagnosed : 07/22/2015 2:46 PM (K21.9) Not Available [facility] 4 02:19:18 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, unilatera l; Note: Date Diagnosed : 12/12/2019 3:31 PM (J38.01) Not Available [facility] 4 02:18:19 Dysphagia 27901925 Active 2022 Dysphagia , unspecifi ed; Note: Date Diagnosed : 10/27/2021 12:05 PM (R13.10) ; Start Date : 2 Other dysphagia ; Note: Date Diagnosed : 04/07/2023 1:44 PM (R13.19) Not Available [facility] 4 02:19:19 Benign paroxysma l positiona l vertigo 549091700 Active 2019 Benign paroxysma l vertigo, left ear; Note: Date Diagnosed : 02/26/2020 3:32 PM (H81.12) Not Available [facility] 4 02:18:20 Cough 46360664 Active 2015 Cough, unspecifi ed; Note: Changed from R05 to R05.9 ( 2 2:10 PM) , Date Diagnosed : 09/04/2015 3:10 PM (R05) Not Available [facility] 4 02:19:08 Oropharyn geal dysphagia 11504257 Active 2023 Dysphagia , oropharyn geal phase; Note: Date Diagnosed : 09/16/2023 1:19 PM (R13.12) Not Available [facility] 02:19:08 Hemoptysi s 95386783 Active 2023 ENEIDA MCCALL MD [address] [facility],[place] [address], [facility] [place], [address] , [place] [facility] [place] [place] 14:33:59 Chronic sore throat 071465223 Active 2023 ENEIDA MCCALL MD [address] [place] [address],[place] [address], [facility] [place], [address] , [place] [facility] [place] 14:34:04 Chronic hoarsenes s 11721746774 05 Active 2023 ENEIDA MCCALL MD [address] [place] [address],[place] [address], [facility] [place], [address] , [facility] - [facility] [place] 14:42:59 Problem Notes None recorded. Procedures Surgical History Date Name Laterality Status Provider Name and Address Organization Details Recorded Time 08/10/19 25 FFL_RE completed ENEIDA MCCALL MD [address] [place] [address],[place] [address], [place], [address], [place] [facility] 08/10/2024 15:02:15 04/21/20 24 FFL_RE completed ENEIDA MCCALL MD [address] [place] [address],[place] [address], [place], [address], [facility] - [facility] [place] 04/21/2024 14:41:39 transurethral prostatectomy completed Bibi Neal [place] - [facility] [place] 05/10/2024 14:05:40 subtotal thyroidectomy completed Bibi Neal [place] - [facility] [place] 05/10/2024 14:05:53 Imaging Results None recorded. Procedure Notes None recorded. Medical Equipment None Reported. Allergies No known drug allergies Medications Name Sig Start Date Stop Date Status Note LastModified by Organization Details LastModified Time losartan 50 mg tablet 05/06 completed Medicati on ID: [id number] B rand Name: losartan Send Method: E-Prescr [...] gram tablet 05/06 completed Medicati on ID: [id number] D uration Value: 7 Brand Name: valacycl [...] mucosal jelly 05/10 completed Medicati on ID: [id number] D uration Value: 14 Brand Name: lidocain [...] mg capsule 05/06 completed Medicati on ID: [id number] D uration Value: 90 Brand Name: tamsulos in Send Method: E-Prescr ibed Sub s Allowed: subs OK Speci al Instruct ion: TAKE ONE CAPSULE DAILY Me dication GenericN jay: tamsulos in Not Available Not Available Not Available pantopraz ole 40 mg tablet,de layed release 07/12 completed Medicati on ID: [id number] D uration Value: 30 Brand Name: pantopra [...] by mouth 07/12 completed Medicati on ID: [id number] D uration Value: 30 Prescri bed By [...] oral powder 05/10 completed Medicati on ID: [id number] D uration Value: 30 Brand Name: polyethy [...] layed release 12/11 completed Medicati on ID: [id number] P devonte d By Name: Trevon Gee [...] both nostrils 10/17 completed Medicati on ID: [id number] P rescribe d By Name: Trevon Gee rd, nd Name: Flonase Allergy Relief S end Method: E-Prescr ibed Sub s Allowed: subs OK Medic ationGen ericName : Flonase Allergy Relief Not Available Not Available Not Available Vitals Date Recorded Body height Body mass index (BMI) Body weight Provider Name and Address Organization Details Last Updated DateTime 04/21/2024 167.64 cm 27 kg/m2 15213.93 g Aakash Weaver [place] [facility] 04/21/2024 14:00:43 Date Recorded Body height Body weight Provider Name and Address Organization Details Last Updated DateTime 05/10/2024 167.64 cm 32320.93 g Bibi Neal [place] [facility] 05/10/2024 14:01:54 Date Recorded Body height Provider Name an d Address Organization Details Last Updated DateTime 08/10/2024 167.64 cm Aakash Weaver [facility] 08/10/2024 14:29:36 Social History None recorded. Functional Status None recorded. Mental Status None recorded. Family History Nothing Reported. Medical History Condition Response Hypertension Y Sleep Disorder Y GERD/Reflux Y Past Encounters Encounter ID Performer Location Encounter Start Date Encounter Closed Date Diagnosis/Indication Diagnosis SNOMED-CT Code Diagnosis ICD10 Code Diagnosis Note [id number] ENEIDA MCCALL MD [facility] [address] [address] 04/21/2024 13:44:06 04/21/2024 15:41:33 Hemoptysis 95140552 R04.2 resolved. laryngosco py negative today for bleeding Chronic sore throat 2754 90462 J31.2 likely due to thrush. Gastroesop hageal reflux disease without esophagitis 427360871 K21.9 continue esomeprazo le Candidiasis of mouth 797 07280 B37.0 FFL notable for montez in base of tongue. LIkely secondary to steroid inhalers. Will treat with nystatin. I asked him to call if not improved. No tumors on laryngosoc py. Chronic hoarseness 13863 03218 105 R49.0 will make voice therapy referral to [facility] [id number] VELASQUEZ GONZALEZ MD [facility] [address] [place] [address] 05/10/2024 13:45:35 05/10/2024 15:10:38 Candidiasis of mouth 04327852 B37.0 Chronic hoarseness 24738 85989 105 R49.0 Chronic sore throat 2754 18638 J31.2 Gastroesop hageal reflux disease without esophagitis 276430594 K21.9 [id number] ENEIDA MCCALL MD [facility] [address] [place] [address] 08/10/2024 13:56:29 08/10/2024 15:05:58 Chronic sore throat 963602981 J31.2 no evidence of thrush. he has breakthrou gh heartburn and I think the soreness is due to LPR. I will add dual therapy for reflux with famotidine in addition to his PPI. Gastroesop hageal reflux disease without esophagitis 796043323 K21.9 begin dual thearpy Candidiasis of mouth 797 01388 B37.0 resolved Chronic hoarseness 89605 17130 105 R49.0 will make voice therapy referral to [facility] since he could not be seen at [facility], gave reassuranc e no vocal cord lesions. Health Concerns Section Related Observation LastModified by Organization Detai ls LastModified Time None Recorded Concern Status LastModified by Organization Details LastModified Time None Recorded Advance Directives Directive None Recorded Payers Encounter Date Sequence Insurance Name Policy Number Policy Ayala Covered Member ID Ayala Member ID Guarantor Name 04/21/2024 1 [facility] Laina Lewis [id number] Laina Lewis 05/10/2024 1 [facility] Laina Lewis [id number] Laina Lewis 08/10/2024 1 [facility] Laina Lewis [id number] Laina Lewis Notes Date Note Type Note [...] in September 2020. ENEIDA MCCALL MD [address] [facility] [address], [place], [address], [place] [facility] 04/21/2024 14:43:45 05/10/2024 text/html 68-year-old male [...] [place]. Normal MBS. VELASQUEZ QUINTERO MD [address] [facility] [address], [place], [address], [place] [facility] 05/11/2024 12:34:14 08/10/2024 text/html He has [...] FOL in September 2020. ENEIDA MCCALL MD [address] [place] [address], [place], [address], [place] [facility] 08/10/2024 15:05:10
--- OUTSIDE RECORDS SUMMARY | 2024-10-12 15:04 | XMS_ITS ---
Author Organization [facility] Address [address] [facility] [address] [place] [address] Care Team Providers Care Superintendent Custodian Janitor Name Role Phone Wayne Jaimes MD Primary Care Provider DESI Burks Unavailable [phone] Allergies No Known Allergies REASON FOR VISIT [...] Active Diclofenac Sodium 1 % as directed Bridge Builder ally place 1 g onto the skin [...] N/A Encounters Encounter Location Date Provider Diagnosis [facility] [address] [address] 07/10/2024 DESI LI Onychomycosis B35.1 ; Calcium [...] Date Notes Efinaconazole 10 % 1 application Bridge Builder ally Once a day for 90 days [...] Name:DESI LI, 01/10/2025 02:45:00 PM, [address] [facility] [address], [place], [address], Medications Administered Medication Instructions Date of Administration Dosage Notes dexAMETHasone Sod Phosphate PF 07/10/2024 0.5 m L Kenalog 07/10/2024 0.5 mL Progress Notes * Mckinley LEWISOB:1955 ([age] yo M)Acc No.[id number]:07/10/2024 Progress Note Patient:Laina SANDOVAL Provider:?Desi Li DPM :1955???Age:68 Y???Sex:Male Nael e:07/10/2024 Address:[address] [place], [place] [address] Pcp:Wayne Jaimes MD Subjective: * Chief Complaints: [...] bilaterally, protective sensation intact 10/10 with 5.07 [place] Alisha bilaterally, vibratory sensation with tuning fork [...] RT J1100 INJ DEXAMETHASONE SODIM PHOSHATE 1 [id number] INJ TRIAMCINOLONE ACETONIDE 10 MG * Follow Up:?3 Months * Billing Information: * Visit Code:? 03237 Office Visit, Est Pt., Level 4. Modifiers: 25 * Procedure Codes:? DRAIN/INJECT, SMALL JOINT/BURSA. Modifiers: RT J1100 INJ DEXAMETHASONE SODIM PHOSHATE 1 MG. J3301 INJ TRIAMCINOLONE ACETONIDE 10 MG. * Sign off status: Completed true * Provider:?Desi Li DPM Date:? 07/10/2024 Generated for Tatiana lema/Nilsa/Saraitting on:?10/12/2024 03:04 PM EDT History and Physical [...] bilaterally, protective sensation intact 10/10 with 5.07 [place] Alisha bilaterally, vibratory sensation with tuning fork [...]
--- OUTSIDE RECORDS SUMMARY | 2024-10-12 15:05 | XMS_ITS ---
Author Organization [facility] Address [address] [facility] [address] [place] [address] Care Team Providers Care Marzipan Molder Name Role Phone Wayne Jaimes MD Primary Care Provider DESI Burks Unavailable [phone] Allergies No Known Allergies REASON FOR VISIT 3 month f/u Medications Medication SIG (Take, Route, Frequency, Duration) Notes Start Date End Date Status Diclofenac Sodium 1 % as directed to [...] Externally twice daily for 30 days Active Tamsulosin HCl 0.4 MG 1 capsule Orally O nce a day Not-Taking Itraconazole 100 MG 1 capsule after a me al Orally Once a day for 30 days 04/15/2022 Not-Taking Mupirocin 2 % 1 application Externally Twice a day for 30 days 01/13/2022 Not-Taking Vitamin E 400 UNIT 1 capsule Orally Onc e a day Not-Taking Multivitamin Not-Oseas ing Lactulose 10 GM 1 packet Orally bid Not-Taking Griseofulvin Ultramicrosize 250 MG 1 tablet after a meal Orally once a day for 90 days 01/13/2022 Not-Taking Vitamin D Not-Taking Diclofenac Epolamine 1.3 % 1 patch as ne eded Externally Once a day for 30 days Not-Taking Gabapentin 300 MG 1 capsule Orally bid Not-Taking Finasteride 5 MG 1 tablet Orally Once a day Not-Taking predniSONE 20 MG 1 tablet Orally Once a day Not-Taking hydrOXYzine HCl 50 MG 1 tablet as needed Orally once a day for 30 day(s) 01/20/2021 Not-Taking Meclizine HCl 12.5 MG 2 tablets as neede d Orally 3 times daily Not-Taking Ciclopirox 8 % 1 application Externally Once a day Not-Taking Pantoprazole Sodium 20 MG 1 tablet Orall y Once a day Not-Taking Jublia 10 % APPLY TOPICALLY ONCE DAILY for 38 Active Brilinta 90 MG 1 tablet Orally Twic e a day Active Tacrolimus 0.1 % 1 application to the right foot rash Externally Once a day for 30 days Active Lidocaine-Prilocaine 2.5-2.5 % APPLY 1 GRAM TOPICALLY TO THE RIGHT AND LEFT FOOT TWICE A DAILY DIRECTED for 38 Active Albuterol Sulfate 108 (90 Base) MCG/ACT 1 puff as needed Inhalation every 4 hrs Active Aspirin 81 MG 1 tablet Orally Once a day Active Lidocaine 5 % 1 patch remove after 12 hours Externally Once a day Active Atorvastatin Calcium 80 MG 1 tablet Oral ly Once a day Active Diclofenac Sodium 1 % as directed Director Cpg ally place 1 g onto the skin bid Active Losartan Potassium 25 MG 1 tablet Orally 0.5 tab Once a day Active Triamcinolone (oint)-Silicone Active traMADol HCl 50 MG 1 tablet as needed Orally Once a day Active Sucralfate 1 GM/10ML 10 mL 1 hour before meals and at bedtime on an empty stomach Orally Four times a day Active Voltaren Active Esomeprazole Magnesium 40 MG 1 capsule Orally Once a day Active Ezetimibe 10 MG 1 tablet Orally Once a day Active Metoprolol Tartrate 25 MG 1 tablet with food Orally Twice a day Active Ketoconazole 2 % 1 application Externally Once a day Active Vital Signs Temperature 97.5 degrees Fahrenheit 10/12/19 25 Heart Rate 60 /min 10/11/2024 Respiratory Rate 16 /min 10/11/2024 Height 5ft 6in in 10/11/2024 Weight 151.7 lbs 10/11/2024 BMI 24.48 kg/m2 10/11/2024 Encounters Encounter Location Date Provider Diagnosis [facility] [address] [facility] [address] [place] [address] 10/11/2024 DESI LI Onychomycosis B35.1 ; Calcium pyrophosphate deposition disease (CPPD) M11.20 ; Psoriasis L40.9 ; Hallux limitus of left foot M20.5X2 ; Hallux limitus of right foot M20.5X1 ; Lumbar radiculopathy, right M54.16 ; Achilles tendinitis, right leg M76.61 and Achilles tendinitis, left leg M76.62 Assessments Encounter Date Diagnosis (ICD Code) Assessment Notes Treatment Notes Treatment Clinical Notes Section Notes 10/11/2024 Onychomycosis (ICD-10 - B35.1) I reviewed [...] all previous records, and examination and complex decision-making . Time was 30 minutes spent in review [...] inserts to help offload the offending joints. 10/11/2024 Psoriasis (ICD-10 - L40.9) We discussed that CPPD and psoriasis can go hand in hand. We discussed that he has tried many topical steroids without improvement or resolution. He had resolution with the tacrolimus, he does not need another refill today. 10/11/2024 Hallux limitus of left foot (ICD-10 - M20.5X2) I examined his orthotics which are still appropriate. We discussed his balance issues is not coming from his feet as the tread and wear on his shoes are equal. 10/11/2024 Hallux limitus of right foot (ICD-10 [...] under the right 4th and 5th toes. 10/11/2024 Achilles tendinitis, right leg (ICD-10 - [...] He is in agreement with this plan. 10/11/2024 Achilles tendinitis, left leg (ICD-10 - M76.62) Plan Of Treatment Medication Medication Name Sig Start Date Stop Date Notes Diclofenac Sodium 1 % as directed to the right foot Externally twice daily as needed for pain for 30 days 10/11/2024 Efinaconazole 10 % 1 application Director Cpg ally Once a day for 90 days [...] inserts to help offload the offending joints. Psoriasis We discussed that CP PD and [...] are equal. Hallux limitus of right foot RX for dicl ofenac gel to apply to the right foot BID PRN pain. Achilles tendinitis, right leg He has ev idence of Achilles tendinitis bilaterally on examination today. We discussed his morning pain is the most significant. We discussed using night splint to bed. I explained these can stretch the Achilles while he is sleeping to avoid the sharp pain when he steps down in the morning. He is in agreement with this plan. Next Appt Details Follow Up: 3 Months, Reason: Provider Name:DESI LI, 01/10/2025 02:45:00 PM, [address] [address], [place], [address], Progress Notes * Mckinley LEWISOB:1955 ([age] yo M)Acc No.[id number]:10/11/2024 Progress Note Patient:?Laina LEWIS Provider:?Desi Li DPM :1955???Age:68 Y???Sex:Male Nael e:10/11/2024 Address:[address] [place], [place] [id number] Pcp:Wayne Jaimes MD Subjective: * Chief Complaints: * ???3 month f/u * HPI: ???Constitutional:?This 68 y/o male returns to my office with a complaint of toenail fungus and right foot pain. Previously, I referred him to [...] of pain on the back of his right heel when he first gets up in the morning. He states it is a sharp pain, and he has a hard time walking around for the first half an hour of his day. He states the lidocaine cream does seem to help. He states the injection in the big toe does help. He is also having pain on the outside of the right foot by the little toe today. He describes the pain as an ache. He states there is pain in the big toe and the little toe when using the treadmill. He has no other foot complaints this [...] repair. vocal cord surgery 09/2019bilateral eye surgery 2cardiac stent 09/22/2024 * Hospitalization/Major Diagno stic Procedure:?thyroidectomy * Family History:?Father: hype rtension.?Mother: lung cancer.?Siblings: sister- diabetes, hypertensionsister- thyroid cancer.? * Social History:?Tobacco: no Alcohol: no. * Medications:?TakingEzetimibe 10 MG Tablet 1 tablet Orally Once a day Metoprolol Tartrate 25 MG Tablet 1 tablet with food Orally Twice a day Ketoconazole 2 % Cream 1 application Externally Once a day Voltaren Esomeprazole Magnesium 40 MG Capsule Delayed Release [...] Solution 1 application Externally Once a day Lidocaine- Prilocaine 2.5-2.5 % Cream APPLY 1 GRAM OF CREAM TOPICALLY Externally twice daily Jublia 10 % Solution APPLY TOPICALLY ONCE DAILY Brilinta 90 MG Tablet 1 tablet Orally Twice a day Taking Ezetimibe 10 MG Tablet 1 tablet Orally Once a day Taking Metoprolol Tartrate 25 MG Tablet 1 tablet with food Orally Twice a day Taking Ketoconazole 2 % Cream 1 application Externally Once a day Taking Voltaren Taking Esomeprazole Magnesium 40 MG Capsule Delayed [...] Cream APPLY 1 GRAM OF CREAM TOPICALLY Externally twice daily Taking Jublia 10 % Solution APPLY TOPICALLY ONCE DAILY Taking Brilinta 90 MG Tablet 1 tablet Orally Twice a day Not-TakingpredniSONE 20 MG Tablet 1 tablet Orally Once [...] Medication List reviewed and reconciled with the patientNot- Taking predniSONE 20 MG Tablet 1 tablet Orally [...] Ointment 1 application Externally Twice a day Not-Taking Itraconazole 100 MG Capsule 1 capsule [...] patient * Allergies:?N.K.D.A.no[Allerg ies Verified] Objective: * Vitals:?Wt:151.7lbs, Ht: 5ft 6in, BMI:24.48Index, HR:60/min, Temp:97.5F, RR:16/min, Ht-cm: 167.64, Wt-k.81 kg. * Examination: ???General Examination: ???GENERAL: Patient [...] bilaterally, protective sensation intact 10/10 with 5.07 Newn[place] Alisha bilaterally, vibratory sensation with tuning fork [...] insertion bilaterally. DERMATOLOGICAL: Yellowed discoloration of the right hallux with subungual debris and thickening of the toenail with 80% proximal clearance. Normal skin temperature, normal skin [...] equal. ?? 5.?Hallux limitus of right f oot? Notes: RX for diclofenac gel to apply to the right foot BID PRN pain. ?? 6.?Lumbar radiculopathy, rig ht? Refill Lidocaine-Prilocaine [...] He is in agreement with this plan. ?? * Procedure Codes:? * Follow Up:?3 Months * Billing Information: * Visit Code:? 55430 Office Visit, Est Pt., Level 4. * Procedure Codes:? * Sign off status: Completed true * Provider:?Desi Li DPM Date:? 10/11/2024 Generated for Tatiana lema/Nilsa/Kamillesmitting on:?10/12/2024 03:04 PM EDT History and Physical Notes * HPI (History of Present Illness) Category Sub-Category Detail Notes Category Not es Constitutional This 68 y/o m lenny returns to my office with a complaint of toenail fungus and right foot pain. Previously, I referred him to [...] of pain on the back of his right heel when he first gets up in the morning. He states it is a sharp pain, and he has a hard time walking around for the first half an hour of his day. He states the lidocaine cream does seem to help. He states the injection in the big toe does help. He is also having pain on the outside of the right foot by the little toe today. He describes the pain as an ache. He states there is pain in the big toe and the little toe when using the treadmill. He has no other foot complaints this [...] bilaterally, protective sensation intact 10/10 with 5.07 Newnan Alisha bilaterally, vibratory sensation with tuning fork [...] insertion bilaterally. DERMATOLOGICAL: Yellowed discoloration of the right hallux with subungual debris and thickening of the toenail with 80% proximal clearance. Normal skin temperature, normal skin [...]
== END 2024-10-12 14:45 | disposition home or self-care (01) ==
PROVIDERS: PCP Internal Medicine
DX: Z98.890 Other specified postprocedural states (principal); I25.10 Atherosclerotic heart disease of native coronary artery without angina pectoris; I10 Essential (primary) hypertension; I72.9 Aneurysm of unspecified site
CPT/HCPCS: 99214; G2211

== ENCOUNTER 2024-10-12 14:48 | Outpatient (REF) | payer OTHER, SELFPAY ==
--- NOTE | ~2024-10-12 | US_ITS ---
EXAMINATION: US DOPPLER UPPER EXTREMITY ARTERIAL LIMITED. CLINICAL INFORMATION: Status post cardiac catheterization. COMPARISON: None available. TECHNIQUE: Spectral color Doppler interrogation of the right radial artery. FINDINGS: There is a 0.5 x 0.3 x 0.3 cm irregular anechoic abnormality extending from the the radial artery wall with a 0.1 cm neck without associated flow on color Doppler interrogation. 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 Electronically signed by: Woodrow Rouse MD 10/12/2024 03:48 PM EDT
--- OUTSIDE RECORDS SUMMARY | 2024-10-12 16:19 | XMS_ITS | Clinical Summary ---
Author Organization [address] [facility] Address [address] [place] [address] Phone Care Team Providers Care Coke Burner Name Role Phone Wayne Jaimes MD Primary Care Provider [phone] Allergies No known active allergies Medications bisacodyL [...] Dizziness 04/30/2023 Coronary artery disease invo lving [place] coronary artery of [place] heart with angina pectoris 12/17/2022 ST elevation [...] 3:30 PM EDT Office Visit Orthopedic Surgery [facility] [address] [phone] Wen Herrmann NP Primary osteoarthritis of right knee (Primary Dx); Primary osteoarthritis of left knee 08/08/2024 12:45 PM EST Anesthesia Event [facility] [address] [place] [phone] Bolivar Palmer MD 08/08/2024 11:38 AM EST - 08/08/2024 11:59 PM EST Hospital Encounter [facility] Pain [facility] [address] [place] [phone] Vladislav Antunez DO Chang, Daniel J, MD Radiculopathy, lumbar region Discharge Disposition: Home or Self Care 08/08/2024 6:21 AM EST - 08/08/2024 11:59 PM EST Hospital Encounter [facility] Xray [address] [place] [address] Pain Discharge Disposition: Home or [...] fracture repair UPPER GASTROINTESTINAL ENDOSCOPY 01/13/2017 PROCEDURE: DC UPPER GI ENDOSCOPY PERFORMED; COMMENT: normal UPPER GASTROINTESTINAL ENDOSCOPY 03/08/12 PROCEDURE: DC UPPER GI ENDOSCOPY PERFORMED; COMMENT: normal OTHER [...] Dr. Bell UPPER GASTROINTESTINAL ENDOSCOPY 09/17/2020 PROCEDURE: DC UPPER GI ENDOSCOPY PERFORMED; COMMENT: Normal findings. [...] loose stools Coronary artery disease invo lving [place] coronary artery of [place] heart with angina pectoris (CMS/HCC) 12/17/2022 DX:Coronary artery dise ase involving [place] coronary artery of [place] heart with angina pectoris (HCC) Esophageal dysmotility DX:Esopha geal dysmotility Gastritis DX:Gastritis Dysphagia DX:Dysphagia Esophageal dysmotility DX:Esopha geal dysmotility Colon polyps DX:Colon polyps History of DC (myocardial infarction) DX:History of DC (myocardial infarction) Hyperlipidemia 03/06/2024 DX:Hyperlipidemi a JENNIFER [...] 3:15 PM EDT Office Visit Nephrology - [place] [address] [place] [address] Eduard Mccormick MD [address] [place] [address] Health Maintenance Due Date Last Done Comments [...] patient's age to complete this topic Insurance [facility] MEDICARE [facility] MEDICAID Care Teams Coke Burner Relationship Specialty Start Date End Date Wayne Jaimes MD [address] [place] [address] PCP - General Internal Medicine 02/16/22
--- OUTSIDE RECORDS SUMMARY | 2024-10-12 16:19 | XMS_ITS | Clinical Summary ---
Author Organization [facility] [employer] Address [address] [place] [address] [address] [place] [address] Care Team Providers Care Mass Communications Professor Name Role Phone Unavailable Primary Care Provider [...]
--- OUTSIDE RECORDS SUMMARY | 2024-10-12 16:19 | XMS_ITS | Clinical Summary ---
Author Organization [facility] Address [address] [facility] [address] [place] [address] Phone Care Team Providers Care Campus Administrative Assistant Name Role Phone Shelbie Upton MD Primary Care Provider [phone] Allergies No known active allergies Medications albuterol [...] to complete this topic Insurance MED[place]ID [place] [facility] DUAL COMPLETE ([id number]) [facility] DUAL COMPLETE ([id number]) MEDICAID [place] Care Teams Campus Administrative Assistant Relationship Specialty Start Date End Date Shelbie Upton MD [address] [place] [address], [address] [place], [place] [id number] PCP - General Internal Medicine 02/04/24
--- OUTSIDE RECORDS SUMMARY | 2024-10-12 16:19 | XMS_ITS | Encounter Summary ---
Author Organization [employer] Address [address] [place] [address] [address] Care Team Providers Care Breast Worker Name Role Phone Unavailable Primary Care Provider Unavailabl e Encounter Details Date Type Department Care Team (Latest Contact Info) Description 01/23/2022 Abstract [facility] CONVERSIONS Dental, Provider, DDS Social [...]
--- OUTSIDE RECORDS SUMMARY | 2024-10-12 16:19 | XMS_ITS | Encounter Summary ---
Author Organization [employer] Address [address] [place] [address] [address] Care Team Providers Care Bonbon Cream Warmer Name Role Phone Unavailable Primary Care Provider Unavailabl e Encounter Details Date Type Department Care Team (Latest Contact Info) Description 01/15/2021 Abstract [facility] CONVERSIONS Dental, Provider, DDS Social [...]
--- OUTSIDE RECORDS SUMMARY | 2024-10-12 16:19 | XMS_ITS | Clinical Summary ---
Author Organization [facility] Address [address] [place] [address] Care Team Providers Care Compounding Assistant Name Role Phone Brett Velásquez MD Primary Care Provider [phone] Allergies No known active allergies Medications Medication [...] age to complete this topic Care Teams Compounding Assistant Relationship Specialty Start Date End Date Brett Velásquez MD PCP - General Internal Medicine 10/20/17
== END 2024-10-12 14:49 | disposition home or self-care (01) ==
LOC: HO.US 14:48
PROVIDERS: PCP Internal Medicine
DX: I25.10 Atherosclerotic heart disease of native coronary artery without angina pectoris (principal); I10 Essential (primary) hypertension; R93.6 Abnormal findings on diagnostic imaging of limbs; Z95.5 Presence of coronary angioplasty implant and graft; Z79.82 Long term (current) use of aspirin; Z98.890 Other specified postprocedural states
CPT/HCPCS: 93931; 99212

== ENCOUNTER → 2024-10-12 14:54 | Outpatient (BNV) | payer OTHER, SELFPAY | PROVIDERS: PCP Internal Medicine; Visit Provider Radiology Diagnostic Radiology | DX: I97.630 Postprocedural hematoma of a circulatory system organ or structure following a cardiac catheterization (principal) | CPT/HCPCS: 93931 ==

== ENCOUNTER 2024-10-17 14:15 | Outpatient (AMB) | payer OTHER, SELFPAY ==
--- NOTE | 2024-10-17 14:20 | MHC.OFFVIS ---
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 Had upper extremity arterial US on 10/12/24. 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 He had undergone right radial artery catheterization with a 6 [place] slender sheath and had subsequent PCI. Postprocedure he reported there was a fair amount of bruising and he noticed a little bubble. Upon follow-up with his cardiology team they obtained a ultrasound. He now reports that his hand feels significantly better. Bruising has cleared. He has a slight bump at the puncture site. But no other concerns at the current time. Motor and sensation of the hand has been totally intact. COUNTS INCLUDE 234 BEDS AT THE [facility] Medical History Finger laceration with complication Encounter to establish care Trigger finger Thyroid nodule Surgical History S/P cardiac cath H/O colonoscopy History of esophagogastroduodenoscopy (EGD) Hx of cataract extraction History of thyroid surgery History of prostate surgery Family History Sister Arthritis Mother Heart disease Lung cancer Father Hypertension Sister Thyroid cancer Social History Household Members: Spouse Housing: Apartment Are you a primary daytime caregiver to a significant other at home: No Do you presently have visiting nurse or other home services: No Alcohol intake: never Patient Tobacco Use Status: Never used Tobacco e-Cigarette/Vaping Use: Never Used Second Hand Smoke Exposure: No service: No Current occupational status: employed 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 Current occupational exposures/hazards: No Cognitive needs: No Hearing needs: No Vision needs: No Review of Systems Const All systems reviewed & are unremarkable except as noted in HPI and below Reports no additional complaints ENT Reports Normal hearing present Card Denies chest pain, Denies chest pain at rest, Denies chest pain with activity and Denies pedal edema Resp Denies cough GI Denies abdominal pain Musc Denies abnormal gait, Denies muscle cramps and Denies radiating pain into limb Skin/Breast Denies skin ulcer and Denies wounds Neuro Reports Normal hearing present and Denies abnormal gait Psych Reports no additional complaints Physical Exam Const General: cooperative, healthy appearing and comfortable Orientation/consciousness: oriented to person, oriented to place and oriented to time HEENT Head: Yes normal to inspection Neck Neck: Yes normal visual inspection Carotids: no bruits Chest Chest palpation & inspection: normal inspection of the chest Resp Effort & Inspection: normal respiratory effort and able to speak in complete sentences Auscultation: clear to auscultation bilaterally, no crackles, no rales, no rhonchi and no wheezes Cardio Rate: regular rate Rhythm: regular rhythm Heart sounds: S1 normal heart sound present and S2 normal heart sound present Bruits: no carotid bruits Peripheral pulses: Peripheral pulses 2+ throughout GI Inspection: Yes normal to inspection Skin Wounds: no wounds Hair: normal Neuro General: oriented to person, oriented to place and oriented to time Cranial nerves: Yes CN's II-XII intact bilaterally and Yes Normal hearing present Cognition (Neuro): normal cognition Motor exam (neuro): 5/5 motor strength present throughout Extrem Other: venous exam: No significant superficial varicosities or spider telangiectasias, minimal edema General: No clubbing, No cyanosis and No edema Psych Appearance: grossly normal Mental Status: mental status grossly normal Speech and movement: Normal speech and movement present Results Reviewed Results Reviewed: Ultrasound reported 09/12/2024 demonstrates thrombosed pseudo aneurysm. On visit today on 10/17/2024. I performed a bedside ultrasound and I confirmed that there was no additional pseudo aneurysm amenable to injection. Assessment & Plan Assessment & Plan (1) Pseudoaneurysm: Comment: Right radial artery Code(s): I72.9 - Aneurysm of unspecified site Category: Medical Plan: In short radial artery pseudoaneurysm appears to be thrombosed. No other concerns at the current time. I discussed the findings with the patient and also showed him his ultrasound. I did report that that bump should eventually flattened out over the next few months. He will follow up with us on an as-needed basis. Plan Patient was informed and verbally consented to the use of an ambient scribe for clinic note documentation during this visit. Patient Instructions: - Monitor procedural site for any signs of increased swelling, pain, or additional discoloration. - Anticipate healing of bruising within a few weeks; if no improvement or if symptoms worsen, seek evaluation. - Maintain regular daily activities unless otherwise restricted. Coding Level of Care Code New Pt Level 4 (52035) Diagnoses Pseudoaneurysm I72.9
--- OUTSIDE RECORDS SUMMARY | 2024-10-17 17:21 | XMS_ITS | Encounter Summary ---
Author Organization [facility] Address [address] [place] [address] Care Team Providers Care Yard Engineer Name Role Phone Brett Velásquez MD Primary Care Provider Keisha Luna MD Primary Care Provider [phone] Brett Velásquez MD Primary Care Provider Reilly Stewart MD, PHD Unavailable Unava ilBrett Bailon MD Primary Care Provider Wayne Dickson Primary Care Provider [phone] Dafne Hilton MD Unavailable [phone] Desi Swenson NP Unavailable [phone] Encounter Details Date Type Department Care Team Description 04/01/2015 Billboard Poster Report Medical Records [address] [place] [address] Olivia Harris MD [address] [place] [address] [address] [place] [address] Social History Tobacco Use Types Packs/Day Years [...] Date Type Specialty Care Team Description 04/29/2027 Billboard Poster Report Abstract, Provider documented as of this encounter Visit Diagnoses Not on filedocumented in this encounter Care Teams Yard Engineer Relationship Specialty Start Date End Date Brett Velásquez MD PCP - General Internal Medicine 10/29/11 06/19/15 Keisha Chavez MD [address] [place] [address] PCP - General Internal Medicine 06/20/15 04/20/16 Brett Velásquez MD PCP - General Internal Medicine 04/21/16 01/25/22 Brett Velásquez MD PCP - General Internal Medicine 01/26/22 02/15/22 Wayne Jaimes [address] [place] [address] PCP - General Internal Medicine 02/16/22 Reilly Baker MD, PHD [address] [place] [address] Surgeon Neurosurgery 01/20/22 Dafne Hilton MD [address] [place] [address] Specialist Cardiology 10/13/22 Desi Swenson NP [address] [place] [address] Cardiology 02/29/24 documented as of this encounter
--- OUTSIDE RECORDS SUMMARY | 2024-10-17 17:21 | XMS_ITS | Encounter Summary ---
Author Organization [facility] Address [address] [facility] [place] [address] Care Team Providers Care Router Operator Pin Name Role Phone Keisha Chavez MD Primary Care Provider [phone] Brett Velásquez MD Primary Care Provider Reilly Stewart MD, PHD Unavailable Unami ilBrett Bailon MD Primary Care Provider Wayne Dickson Primary Care Provider [phone] Dafne Hilton MD Unavailable [phone] Desi Swenson NP Unavailable [phone] Encounter Details Date Type Department Care Team Description 09/18/2015 Business Doc Medical Records [address] [place] [address] Abstract, Provider Social History Tobacco Use Types [...] Date Type Specialty Care Team Description 04/29/2027 Parent Educator Report Abstract, Provider documented as of this encounter Visit Diagnoses Not on filedocumented in this encounter Care Teams Router Operator Pin Relationship Specialty Start Date End Date Keisha Chavez MD [address] [place] [address] PCP - General Internal Medicine 06/20/15 04/20/16 Brett Velásquez MD [address] [place] [address] PCP - General Internal Medicine 04/21/16 01/25/22 Brett Velásquez MD [address] [place] [address] PCP - General Internal Medicine 01/26/22 02/15/22 Wayne Jaimes [address] [place] [address] PCP - General Internal Medicine 02/16/22 Reilly Bakre MD, PHD [address] [place] [address] Surgeon Neurosurgery 01/20/22 Dafne Hilton MD [address] [place] [address] Specialist Cardiology 10/13/22 Desi Swenson NP [address] [place] [address] Cardiology 02/29/24 documented as of this encounter
--- OUTSIDE RECORDS SUMMARY | 2024-10-17 17:21 | XMS_ITS | Clinical Summary ---
Author Organization [facility] [employer] Address [address] [place] [address] 7 [place] [address] Care Team Providers Care Limnology Teacher Name Role Phone Unavailable Primary Care Provider [...]
--- OUTSIDE RECORDS SUMMARY | 2024-10-17 17:21 | XMS_ITS | Clinical Summary ---
Author Organization [facility] Address [address] [facility] [address] 0 [place] [address] Phone Care Team Providers Care Lay Out Drafter Name Role Phone Shelbie Upton MD Primary Care Provider [phone] Allergies No known active allergies Medications albuterol [...] Colorectal Cancer Screening: Sigmoidoscopy 2002 Influenza Vaccine (Season Ended) 2025 04/06/2023, 04/08/2021, 04/09/2020, Additional history exists Pneumococcal Vaccine: 65+ Years Completed 04/09/2020, 04/28/2019 Hepatitis B Vaccine Aged Out No longe r eligible based on patient's age to complete this topic Insurance [place]ID [place] [facility] DUAL COMPLETE ([id number]) [facility] DUAL COMPLETE ([id number]) MEDICAID [place] Care Teams Lay Out Drafter Relationship Specialty Start Date End Date Shelbie Upton MD [address] [place] [address], [address] [place], [place] [id number] PCP - General Internal Medicine 02/04/24
--- OUTSIDE RECORDS SUMMARY | 2024-10-17 17:21 | XMS_ITS | Encounter Summary ---
Author Organization [facility] Address [address] [place] [address] Care Team Providers Care Supervisor Multifocal Lens Name Role Phone Brett Velásquez MD Primary Care Provider Keisha Luna MD Primary Care Provider [phone] Brett Velásquez MD Primary Care Provider Reilly Stewart MD, PHD Unavailable Unava ilBrett Bailon MD Primary Care Provider Wayne Dickson Primary Care Provider [phone] Dafne Hilton MD Unavailable [phone] Desi Swenson NP Unavailable [phone] Encounter Details Date Type Department Care Team Description 03/27/2015 Machine Ii Engraver Report Medical Records 4 [place] [address] Vitor [place] MD [address] [place] [phone] Social History Tobacco Use Types Packs/Day [...] Date Type Specialty Care Team Description 04/29/2027 Machine Ii Engraver Report Abstract, Provider documented as of this encounter Visit Diagnoses Not on filedocumented in this encounter Care Teams Supervisor Multifocal Lens Relationship Specialty Start Date End Date Brett Velásquez MD PCP - General Internal Medicine 10/29/11 06/19/15 Keisha Chavez MD [address] [place] [address] PCP - General Internal Medicine 06/20/15 04/20/16 Brett Velásquez MD PCP - General Internal Medicine 04/21/16 01/25/22 Brett Velásquez MD PCP - General Internal Medicine 01/26/22 02/15/22 Wayne Jaiems [address] [place] [address] PCP - General Internal Medicine 02/16/22 Reilly Baker MD, PHD [address] [place] [address] Surgeon Neurosurgery 01/20/22 Dafne Hilton MD [address] [place] [address] Specialist Cardiology 10/13/22 Desi Swenson NP 4 [place] [address] Cardiology 02/29/24 documented as of this encounter
--- OUTSIDE RECORDS SUMMARY | 2024-10-17 17:21 | XMS_ITS | Clinical Summary ---
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 [address] [place] [phone] Bolivar Palmer MD 08/08/2024 11:38 AM EST - 08/08/2024 11:59 PM EST Hospital Encounter [facility] [address] [place] [phone] Vladislav Antunez DO Chang, Daniel J, MD Radiculopathy, lumbar region Discharge Disposition: Home or Self Care 08/08/2024 6:21 AM EST - 08/08/2024 11:59 PM EST Hospital Encounter [facility] Xray [address] [place] [address] Pain Discharge Disposition: Home or [...] fracture repair UPPER GASTROINTESTINAL ENDOSCOPY 01/13/2017 PROCEDURE: AL UPPER GI ENDOSCOPY PERFORMED; COMMENT: normal UPPER GASTROINTESTINAL ENDOSCOPY 03/08/12 PROCEDURE: AL UPPER GI ENDOSCOPY PERFORMED; COMMENT: normal OTHER [...] Dr. Bell UPPER GASTROINTESTINAL ENDOSCOPY 09/17/2020 PROCEDURE: AL UPPER GI ENDOSCOPY PERFORMED; COMMENT: Normal findings. 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 (CMS/HCC) 12/17/2022 DX:Coronary artery dise ase involving kaw coronary artery of kaw heart with angina pectoris (HCC) Esophageal dysmotility DX:Esopha geal dysmotility Gastritis DX:Gastritis Dysphagia DX:Dysphagia Esophageal dysmotility DX:Esopha geal dysmotility Colon polyps DX:Colon polyps History of [place] (myocardial infarction) DX:History of [place] (myocardial infarction) Hyperlipidemia 03/06/2024 DX:Hyperlipidemi a JENNIFER [...] 3:15 PM EDT Office Visit Nephrology - [place] [address] [place] [address] Eduard Mccormick MD [address] [place] [address] Health Maintenance Due Date Last Done Comments [...] age to complete this topic Meningococcal B Vaccine Aged Out No l onger eligible based on patient's age to complete this topic RSV Immunization Patients Under 20 months Aged Out No longer eligible based on patient's age to complete this topic Varicella Vaccines Aged Out No longer eligible based on patient's age to complete this topic Insurance [facility] MEDICARE [facility] MEDICAID Care Teams Machine Grainer Relationship Specialty Start Date End Date Wayne Jaimes MD [address] [place] [address] PCP - General Internal Medicine 02/16/22
--- OUTSIDE RECORDS SUMMARY | 2024-10-17 17:21 | XMS_ITS | Encounter Summary ---
Author Organization [facility] Address [address] [facility] [place] [address] Care Team Providers Care Amusement Machine Mechanic Name Role Phone Keisha Chavez MD Primary Care Provider [phone] Brett Velásquez MD Primary Care Provider Reilly Stewart MD, PHD Unavailable Unami ilBrett Bailon MD Primary Care Provider Wayne Dickson Primary Care Provider [phone] Dafne Hilton MD Unavailable [phone] Desi Swenson NP Unavailable Encounter Details Date Type Department Care Team Description 11/05/2015 Release of Information Medical Records [address] [place] [address] Abstract, Provider Social History Tobacco Use Types [...] Date Type Specialty Care Team Description 04/29/2027 Finance Consultant Report Abstract, Provider documented as of this encounter Visit Diagnoses Not on filedocumented in this encounter Care Teams Amusement Machine Mechanic Relationship Specialty Start Date End Date Keisha Chavez MD [address] [place] [address] PCP - General Internal Medicine 06/20/15 04/20/16 Brett Velásquez MD [address] [place] [address] PCP - General Internal Medicine 04/21/16 01/25/22 Brett Velásquez MD [address] [place] [address] PCP - General Internal Medicine 01/26/22 02/15/22 Wayne Jaimes [address] [place] [address] PCP - General Internal Medicine 02/16/22 Reilly Baker MD, PHD [address] [place] [address] Surgeon Neurosurgery 01/20/22 Dafne Hilton MD [address] [place] [address] Specialist Cardiology 10/13/22 Desi Swenson NP [address] [place] [address] Cardiology 02/29/24 documented as of this encounter
--- OUTSIDE RECORDS SUMMARY | 2024-10-17 17:21 | XMS_ITS | Encounter Summary ---
Author Organization [facility] Address [address] [place] [address] Care Team Providers Care Fruit Dryer Name Role Phone Brett Velásquez MD Primary Care Provider Keisha Luna MD Primary Care Provider [phone] Brett Velásquez MD Primary Care Provider Reilly Stewart MD, PHD Unavailable Unava ilable Brett Velásquez MD Primary Care Provider Wayne Dickson Primary Care Provider [phone] Dafne Hilton MD Unavailable [phone] Desi Swenson NP Unavailable [phone] Encounter Details Date Type Department Care Team Description 04/29/2012 Environmental Service Aide Report Medical Records [address] [place] [address] Shaquille Chandra Social History Tobacco Use Types [...] Type Specialty Care Team Description 04/29/2027 Environmental Service Aide Report Abstract, Provider documented as of this encounter Visit Diagnoses Not on filedocumented in this encounter Care Teams Fruit Dryer Relationship Specialty Start Date End Date Brett Velásquez MD PCP - General Internal Medicine 10/29/11 06/19/15 Keisha Chavez MD [address] [place] [address] PCP - General Internal Medicine 06/20/15 04/20/16 Brett Velásquez MD PCP - General Internal Medicine 04/21/16 01/25/22 Brett Velásquez MD PCP - General Internal Medicine 01/26/22 02/15/22 Wayne Jaimes [address] [place] [address] PCP - General Internal Medicine 02/16/22 Reilly Baker MD, PHD [address] [place] [address] Surgeon Neurosurgery 01/20/22 Dafne Hilton MD [address] [place] [address] Specialist Cardiology 10/13/22 Desi Swenson NP [address] [place] [address] Cardiology 02/29/24 documented as of this encounter
--- OUTSIDE RECORDS SUMMARY | 2024-10-17 17:21 | XMS_ITS | Encounter Summary ---
Author Organization [employer] Address [address] [place] [address] 7 [place] [address] Care Team Providers Care Hydration Plant Operator Name Role Phone Unavailable Primary Care Provider Unavailabl e Encounter Details Date Type Department Care Team (Latest Contact Info) Description 01/15/2021 Abstract [facility] CONVERSIONS Dental, Provider, DDS Social History Tobacco [...]
--- OUTSIDE RECORDS SUMMARY | 2024-10-17 17:21 | XMS_ITS | Encounter Summary ---
Author Organization [facility] Address [address] [place] [address] Care Team Providers Care Doctor Podiatric Medicine Name Role Phone Brett Velásquez MD Primary Care Provider Keisha Luna MD Primary Care Provider [phone] Brett Velásquez MD Primary Care Provider Reilly Stewart MD, PHD Unavailable Unava ilable Brett Velásquez MD Primary Care Provider Wayne Dickson Primary Care Provider [phone] Dafne Hilton MD Unavailable [phone] Desi Swenson NP Unavailable [phone] Encounter Details Date Type Department Care Team Description 02/19/2012 Manganese Wheeler Report Medical Records [address] [place] [address] Shaquille Chandra Social History Tobacco Use Types Packs/Day Years Used Date Smoking Tobacco: Never Smokeless Tobacco: Never Alcohol Use Standard Drinks/Week Comments Not Asked 0 (1 standard drink = 0.6 oz pur e alcohol) Sex Assigned at Date Recorded Not on file Job Start Date Occupation Industry Not on file Not on file Not on file documented as of this encounter Plan of Treatment Upcoming Encounters Date Type Specialty Care Team Description 04/29/2027 Manganese Wheeler Report Abstract, Provider documented as of this encounter Visit Diagnoses Not on filedocumented in this encounter Care Teams Doctor Podiatric Medicine Relationship Specialty Start Date End Date Brett Velásquez MD PCP - General Internal Medicine 10/29/11 06/19/15 Keisha Chavez MD [address] [place] [address] PCP - General Internal Medicine 06/20/15 04/20/16 Brett Velásquez MD PCP - General Internal Medicine 04/21/16 01/25/22 Brett Velásquez MD PCP - General Internal Medicine 01/26/22 02/15/22 Wayne Jaimes [address] [place] [address] PCP - General Internal Medicine 02/16/22 Reilly Baker MD, PHD [address] [place] [address] Surgeon Neurosurgery 01/20/22 Dafne Hilton MD [address] [place] [address] Specialist Cardiology 10/13/22 Desi Swenson NP [address] [place] [address] Cardiology 02/29/24 documented as of this encounter
--- OUTSIDE RECORDS SUMMARY | 2024-10-17 17:21 | XMS_ITS | Encounter Summary ---
Author Organization [facility] Address [address] [place] [address] Care Team Providers Care Stripper Color Name Role Phone Brett Velásquez MD Primary Care Provider Keisha Luna MD Primary Care Provider [phone] Brett Velásquez MD Primary Care Provider Reilly Stewart MD, PHD Unavailable Unava ilBrett Bailon MD Primary Care Provider Wayne Dickson Primary Care Provider [phone] Dafne Hilton MD Unavailable [phone] Desi Swenson NP Unavailable [phone] Encounter Details Date Type Department Care Team Description 04/24/2015 Band Cutter Report Medical Records [address] [place] [address] Vitor [place] MD [address] [place] [phone] Social History Tobacco Use Types Packs/Day [...] Date Type Specialty Care Team Description 04/29/2027 Band Cutter Report Abstract, Provider documented as of this encounter Visit Diagnoses Not on filedocumented in this encounter Care Teams Stripper Color Relationship Specialty Start Date End Date Brett Velásquez MD PCP - General Internal Medicine 10/29/11 06/19/15 Keisha Chavez MD [address] [place] [address] PCP - General Internal Medicine 06/20/15 04/20/16 Brett Velásquez MD PCP - General Internal Medicine 04/21/16 01/25/22 Brett Velásquez MD PCP - General Internal Medicine 01/26/22 02/15/22 Wayne Jaimes [address] [place] [address] PCP - General Internal Medicine 02/16/22 Reilly Baker MD, PHD [address] [place] [address] Surgeon Neurosurgery 01/20/22 Dafne Hilton MD [address] [place] [address] Specialist Cardiology 10/13/22 Deis Swenson NP [address] [place] [address] Cardiology 02/29/24 documented as of this encounter
--- OUTSIDE RECORDS SUMMARY | 2024-10-17 17:21 | XMS_ITS | Encounter Summary ---
Author Organization [facility] Address [address] [place] [address] Care Team Providers Care Tack Cutter Name Role Phone Brett Velásquez MD Primary Care Provider Keisha Luna MD Primary Care Provider [phone] Brett Velásquez MD Primary Care Provider Reilly Stewart MD, PHD Unavailable Unava ilBrett Bailon MD Primary Care Provider Wayne Dickson Primary Care Provider [phone] Dafne Hilton MD Unavailable [phone] Desi Swenson NP Unavailable [phone] Encounter Details Date Type Department Care Team Description 02/06/2015 Parole Supervisor Report Medical Records [address] [place] [address] [facility] [address] [place] [address] Social History Tobacco Use Types Packs/Day Years [...] Date Type Specialty Care Team Description 04/29/2027 Parole Supervisor Report Abstract, Provider documented as of this encounter Visit Diagnoses Not on filedocumented in this encounter Care Teams Tack Cutter Relationship Specialty Start Date End Date Brett Velásquez MD PCP - General Internal Medicine 10/29/11 06/19/15 Keisha Chavez MD [address] [place], [place] [phone] PCP - General Internal Medicine 06/20/15 04/20/16 Brett Velásquez MD PCP - General Internal Medicine 04/21/16 01/25/22 Brett Velásquez MD PCP - General Internal Medicine 01/26/22 02/15/22 Wayne Jaimes [address] [place] [address] PCP - General Internal Medicine 02/16/22 Reilly Baker MD, PHD [address] [place] [address] Surgeon Neurosurgery 01/20/22 Dafne Hilton MD [address] [place] [address] Specialist Cardiology 10/13/22 Desi Swenson NP [address] [place] [address] Cardiology 02/29/24 documented as of this encounter
--- OUTSIDE RECORDS SUMMARY | 2024-10-17 17:21 | XMS_ITS | Encounter Summary ---
Author Organization [facility] Address [address] [place] [address] Care Team Providers Care Butter Melter Name Role Phone Keisha Chavez MD Primary Care Provider [phone] Brett Velásquez MD Primary Care Provider Reilly Stewart MD, PHD Unavailable Unava ilBrett Bailon MD Primary Care Provider Wayne Dickson Primary Care Provider [phone] Dafne Hilton MD Unavailable [phone] Desi Swenson NP Unavailable [phone] Encounter Details Date Type Department Care Team Description 12/25/2015 Orders Only Nephrology - [place] [address] [place] [address] Eduard Mccormick MD [address] [place] [address] Social History Tobacco Use Types Packs/Day Years [...] Date Type Specialty Care Team Description 04/29/2027 Lab Assistant Report Abstract, Provider documented as of this encounter Results * (ABNORMAL) MICROALBUMIN/CREATININE, URINE (12/25/2015 9:24 AM EDT) Pathologist [facility] CREAT,RANDOM URINE 161 mg/dL 12/25/2015 11:13 AM T [facility] MICROALBUMIN, RANDOM 111.7(H) 0.0 - 29.0 mg/L 12/25/2015 11:13 AM [facility] MICROALB/CRE RATIO RANDOM 69.3(H) <30.0 mg/g 12/25/2015 11:13 AM T [facility] 12/25/2015 9:24 AM EDT 12/25/2015 9:25 AM EDT Eduard Mccormick MD LAB Performing Organization Address [facility] Co de Phone Number [address] * 25 HYDROXY INCLUDES FRACTIONS IF PERFORMED (12/25/2015 9:24 AM EDT) [facility] 25-HYDROXY VITAMIN D TOTAL 30 30 - 80 ng/ml 12/25/2015 3:35 PM T [facility] Comment: Vitamin D Reference Ranges ??Deficiency: ? <20 ng/mL ??Insufficiency: ?20-29 ng/mL ??Optimal: ?30-80 ng/mL ??High: ? >80 ng/mL 12/25/2015 9:24 AM EDT 12/25/2015 9:25 AM EDT Eduard Mccormick MD LAB Performing Organization Address [facility] Co de Phone Number [address] * CALCIUM,TOTAL (12/25/2015 9:24 AM EDT) [facility] CALCIUM 9.2 8.5 - 10.5 mg/dL 12/25/2015 10:52 AM T [facility] 12/25/2015 9:24 AM EDT 12/25/2015 9:25 AM EDT Eduard Mccormick MD LAB Performing Organization Address [facility] Co de Phone Number [address] * ELECTROLYTE PANEL (12/25/2015 9:24 AM EDT) Sodium 142 133 - 145 mEq/L 12/25/2015 10:52 AM EDT [facility] Potassium 4.5 3.5 - 5.5 mEq/L 12/25/2015 10:52 AM EDT [facility] Chloride 103 96 - 108 mEq/L 12/25/2015 10:52 AM EDT [facility] CO2 27.9 21.0 - 32.0 mEq/L 12/25/2015 10:52 AM EDT [facility] 12/25/2015 9:24 AM EDT 12/25/2015 9:25 AM EDT Eduard Mccormick MD LAB Performing Organization Address [facility] de Phone Number [address] * CREATININE, BLOOD ASSAY (12/25/2015 9:24 AM EDT) CREAT 1.0 0.7 - 1.5 mg/dL 12/25/2015 10:52 AM EDT [facility] GFR > 60 >60 12/25/2015 10:52 AM EDT [facility] Comment: If patient is -Citizen Of [place], multiply result by 1.21 Chronic Kidney Disease: < 60 ml/min/1.73 square meters Kidney Failure: < 15 ml/min/1.73 square meters 12/25/2015 9:24 AM EDT 12/25/2015 9:25 AM EDT Eduard Mccormick MD LAB Performing Organization Address [facility] Co de Phone Number [address] * BLOOD UREA NITROGEN (BUN) (12/25/2015 9:24 AM EDT) BUN 17 5 - 25 mg/dL 12/25/2015 10:52 AM EDT [facility] 12/25/2015 9:24 AM EDT 12/25/2015 9:25 AM EDT Eduard Mccormick MD LAB [facility] [address] [place] [address] documented in this encounter Visit Diagnoses Not on filedocumented in this encounter Care Teams Butter Melter Relationship Specialty Start Date End Date Keisha Chavez MD [address] [place] [address] PCP - General Internal Medicine 06/20/15 04/20/16 Brett Velásquez MD [address] [place], [place] [id number] PCP - General Internal Medicine 04/21/16 01/25/22 Brett Velásquez MD [address] [place] [address] PCP - General Internal Medicine 01/26/22 02/15/22 Wayne Jaimes [address] [place] [address] PCP - General Internal Medicine 02/16/22 Reilly Baker MD, PHD [address] [place] [address] Surgeon Neurosurgery 01/20/22 Dafne Hilton MD [address] [place] [address] Specialist Cardiology 10/13/22 Desi Swenson NP [address] [place] [address] Cardiology 02/29/24 documented as of this encounter
--- OUTSIDE RECORDS SUMMARY | 2024-10-17 17:21 | XMS_ITS | Encounter Summary ---
Author Organization [employer] Address [address] [place] [address] [place] [address] Care Team Providers Care Dental Equipment Mechanic Name Role Phone Unavailable Primary Care Provider Unavailabl e Encounter Details Date Type Department Care Team (Latest Contact Info) Description 01/23/2022 Abstract [facility] CONVERSIONS Dental, Provider, DDS Social History Tobacco [...]
--- OUTSIDE RECORDS SUMMARY | 2024-10-17 17:21 | XMS_ITS | Encounter Summary ---
Author Organization [facility] Address [address] [place] [address] Care Team Providers Care Integrated Circuit Layout Designer Name Role Phone Brett Velásquez MD Primary Care Provider Reilly Stewart MD, PHD Unavailable UnaBrett Davis MD Primary Care Provider Wayne Dickson Primary Care Provider Dafne Hilton MD Unavailable [phone] Desi Swenson NP Unavailable [phone] Encounter Details Date Type Department Care Team Description 11/27/2019 Refill Nephrology - [place] [address] [place] [address] Eduard Mccormick MD [address] [place] [address] Social History Tobacco Use Types Packs/Day Years [...] Date Type Specialty Care Team Description 04/29/2027 Concrete Paving Supervisor Report Abstract, Provider documented as of this encounter Visit Diagnoses Not on filedocumented in this encounter Care Teams Integrated Circuit Layout Designer Relationship Specialty Start Date End Date Brett Velásquez MD PCP - General Internal Medicine 04/21/16 01/25/22 Brett Velásquez MD PCP - General Internal Medicine 01/26/22 02/15/22 Wayne Jaimes [address] [place] [address] PCP - General Internal Medicine 02/16/22 Reilly Baker MD, PHD Surgeon Neurosurgery 01/20/22 Dafne Hilton MD [address] [place], [place] [id number] Specialist Cardiology 10/13/22 Desi Swenson NP [address] [place], [place] [phone] Cardiology 02/29/24 documented as of this encounter
--- OUTSIDE RECORDS SUMMARY | 2024-10-17 17:22 | XMS_ITS | Encounter Summary ---
Author Organization [facility] Address [address] [place] [address] Care Team Providers Care Mental Telepathist Name Role Phone Reilly Baker MD, PHD Unavailable Unava ilable Wayne Jaimes Primary Care Provider [phone] Dafne Hilton MD Unavailable [phone] Desi Swenson NP Unavailable [phone] Encounter Details Date Type Department Care Team Description 10/08/2022 Passenger Locomotive Engineer Report Medical Records [address] [place] [address] Vladislav Antunez DO Social History Tobacco Use [...] Date Type Specialty Care Team Description 04/29/2027 Passenger Locomotive Engineer Report Abstract, Provider documented as of this encounter Visit Diagnoses Not on filedocumented in this encounter Care Teams Mental Telepathist Relationship Specialty Start Date End Date Wayne Jaimes [address] [place], [place] [phone] PCP - General Internal Medicine 02/16/22 Reilly Baker MD, PHD Surgeon Neurosurgery 01/20/22 Dafne Hilton MD [address] [place] [address] Specialist Cardiology 10/13/22 Desi Swenson NP [address] [place], [place] [phone] Cardiology 02/29/24 documented as of this encounter
--- OUTSIDE RECORDS SUMMARY | 2024-10-17 17:22 | XMS_ITS | Encounter Summary ---
Author Organization [facility] Address [address] [place] [address] Care Team Providers Care Aircraft Maintenance Engineer Name Role Phone Brett Velásquez MD Primary Care Provider Reilly Stewart MD, PHD Unavailable Unava ilBrett Bailon MD Primary Care Provider Wayne Dickson Primary Care Provider [phone] Dafne Hilton MD Unavailable Desi Swenson NP Unavailable [phone] Encounter Details Date Type Department Care Team Description 02/20/2020 [facility] Medical Records [address] [place] [address] Aleksandar Huggins MD Social History Tobacco Use [...] Type Specialty Care Team Description 04/29/2027 Job Estimator Report Abstract, Provider documented as of this encounter Visit Diagnoses Not on filedocumented in this encounter Care Teams Aircraft Maintenance Engineer Relationship Specialty Start Date End Date Brett Velásquez MD PCP - General Internal Medicine 04/21/16 01/25/22 Brett Velásquez MD PCP - General Internal Medicine 01/26/22 02/15/22 Wayne Jaimes [address] [place] [address] PCP - General Internal Medicine 02/16/22 Reilly Baker MD, PHD Surgeon Neurosurgery 01/20/22 Dafne Hilton MD [address] [place] [address] Specialist Cardiology 10/13/22 Desi Swesnon NP [address] [place] [address] Cardiology 02/29/24 documented as of this encounter
--- OUTSIDE RECORDS SUMMARY | 2024-10-17 17:22 | XMS_ITS | Encounter Summary ---
Author Organization [facility] Address [address] [place] [address] Care Team Providers Care Manuscripts Curator Name Role Phone Brett Velásquez MD Primary Care Provider Reilly Stewart MD, PHD Unavailable Unava ilBrett Bailon MD Primary Care Provider Wayne Dickson Primary Care Provider [phone] Dafne Hilton MD Unavailable [phone] Desi Swenson NP Unavailable [phone] Encounter Details Date Type Department Care Team Description 01/24/2020 Director Outpatient Services Report Medical Records [address] [place] [address] Aleksandar Huggins MD Social History Tobacco Use [...] on filedocumented in this encounter Care Teams Manuscripts Curator Relationship Specialty Start Date End Date Brett Velásquez MD PCP - General Internal Medicine 04/21/16 01/25/22 Brett Velásquez MD PCP - General Internal Medicine 01/26/22 02/15/22 Wayne Jaimes [address] [place] [address] PCP - General Internal Medicine 02/16/22 Reilly Baker MD, PHD Surgeon Neurosurgery 01/20/22 Dafne Hilton MD [address] [place] [address] Specialist Cardiology 10/13/22 Desi Swenson NP [address] [place] [address] Cardiology 02/29/24 documented as of this encounter
--- OUTSIDE RECORDS SUMMARY | 2024-10-17 17:22 | XMS_ITS | Encounter Summary ---
Author Organization [facility] Address [address] [place] [address] Care Team Providers Care Derrick Builder Name Role Phone Reilly Baker MD, PHD Unavailable Unava Wayne Blackman Primary Care Provider [phone] Dafne Hilton MD Unavailable [phone] Desi Swenson NP Unavailable [phone] Encounter Details Date Type Department Care Team Description 09/08/2022 Hospital Medical Records [address] [place] [address] Social History Tobacco Use Types Packs/Day Years [...] Date Type Specialty Care Team Description 04/29/2027 Associate Financial Analyst Report Abstract, Provider documented as of [...] on filedocumented in this encounter Care Teams Derrick Builder Relationship Specialty Start Date End Date Wayne Jaimes Delmer [address] [place] [address] PCP - General Internal Medicine 02/16/22 Reilly Baker MD, PHD Surgeon Neurosurgery 01/20/22 Dafne Hilton MD [address] [place] [address] Specialist Cardiology 10/13/22 Desi Swenson NP [address] [place] [address] Cardiology 02/29/24 documented as of this encounter
--- OUTSIDE RECORDS SUMMARY | 2024-10-17 17:22 | XMS_ITS | Encounter Summary ---
Author Organization [facility] Address [address] [place] [address] Care Team Providers Care Director Enterprise Sales Name Role Phone Reilly Baker MD, PHD Unavailable Brett España MD Primary Care Provider Wayne Dickson Primary Care Provider [phone] Dafne Hilton MD Unavailable [phone] Desi Swenson NP Unavailable [phone] Encounter Details Date Type Department Care Team Description 01/26/2022 Release of Information Medical Records [address] [place] [address] Abstract, Provider Social History Tobacco Use Types [...] Date Type Specialty Care Team Description 04/29/2027 Worm Farmer Report Abstract, Provider documented as of this encounter Visit Diagnoses Not on filedocumented in this encounter Care Teams Director Enterprise Sales Relationship Specialty Start Date End Date Brett Velásquez MD PCP - General Internal Medicine 01/26/22 02/15/22 Wayne Jaimes [address] [place] [address] PCP - General Internal Medicine 02/16/22 Reilly Baker MD, PHD Surgeon Neurosurgery 01/20/22 Dafne Hilton MD [address] [place] [address] Specialist Cardiology 10/13/22 Desi Swenson NP [address] [place] [address] Cardiology 02/29/24 documented as of this encounter
--- OUTSIDE RECORDS SUMMARY | 2024-10-17 17:22 | XMS_ITS | Encounter Summary ---
Author Organization [facility] Address [address] [place] [address] Care Team Providers Care Fumigator And Sterilizer Name Role Phone Brett Velásquez MD Primary Care Provider Reilly Stewart MD, PHD Unavailable Unava ilBrett Bailon MD Primary Care Provider Wayne Dickson Primary Care Provider [phone] Dafne Hilton MD Unavailable [phone] Desi Swenson NP Unavailable [phone] Encounter Details Date Type Department Care Team Description 12/15/2019 Pants Cutter Report Medical Records [address] [place] [address] Vipin Cherry Social History Tobacco Use Types [...] Date Type Specialty Care Team Description 04/29/2027 Pants Cutter Report Abstract, Provider documented as of this encounter Visit Diagnoses Not on filedocumented in this encounter Care Teams Fumigator And Sterilizer Relationship Specialty Start Date End Date Brett Velásquez MD PCP - General Internal Medicine 04/21/16 01/25/22 Brett Velásquez MD PCP - General Internal Medicine 01/26/22 02/15/22 Wayne Jaimes [address] [place] [address] PCP - General Internal Medicine 02/16/22 Reilly Baker MD, PHD Surgeon Neurosurgery 01/20/22 Dafne Hilton MD [address] [place] [address] Specialist Cardiology 10/13/22 Desi Swenson NP [address] [place] [address] Cardiology 02/29/24 documented as of this encounter
--- OUTSIDE RECORDS SUMMARY | 2024-10-17 17:22 | XMS_ITS | Encounter Summary ---
Author Organization [facility] Address [address] [place] [address] Care Team Providers Care Cloth Bleaching Range Tender Name Role Phone Reilly Baker MD, PHD Unavailable Unava Wayne Blackman Primary Care Provider [phone] Dafne Hilton MD Unavailable [phone] Desi Swenson NP Unavailable [phone] Encounter Details Date Type Department Care Team Description 04/07/2022 SCAN Medical Records [address] [place] [address] Abstract, Provider Social History Tobacco Use Types [...] Date Type Specialty Care Team Description 04/29/2027 Transcript Clerk Report Abstract, Provider documented as of this encounter Procedures Procedure Name Priority Date/Time Associated Diagnosis Comments OUTSIDE LAB Routine 04/07/2022 documented in this encounter Results * OUTSIDE LAB (04/07/2022) Provider Default LAB documented in this encounter Visit Diagnoses Not on filedocumented in this encounter Care Teams Cloth Bleaching Range Tender Relationship Specialty Start Date End Date Wayne Jaimes [address] [place] [address] PCP - General Internal Medicine 02/16/22 Reilly Baker MD, PHD Surgeon Neurosurgery 01/20/22 Dafne Hilton MD [address] [place] [address] Specialist Cardiology 10/13/22 Desi Swenson NP [address] [place] [address] Cardiology 02/29/24 documented as of this encounter
--- OUTSIDE RECORDS SUMMARY | 2024-10-17 17:22 | XMS_ITS | Encounter Summary ---
Author Organization [facility] Address [address] [place] [address] Care Team Providers Care Electromechanical Assembly Technician Name Role Phone Reilly Baker MD, PHD Unavailable Unava ilWayne Osborne Primary Care Provider Dafne Hilton MD Unavailable [phone] Deis Swenson NP Unavailable [phone] Encounter Details Date Type Department Care Team Description 04/27/2022 SCAN [facility] Medical [facility] [address] [facility] [address] [place] [phone] Ena Whipple PA-C [address] [address] Social History Tobacco Use Types Packs/Day Years [...] Date Type Specialty Care Team Description 04/29/2027 Set Up Worker Report Abstract, Provider documented as of this encounter Visit Diagnoses Not on filedocumented in this encounter Care Teams Electromechanical Assembly Technician Relationship Specialty Start Date End Date Wayne Jaimes [address] [place] [address] PCP - General Internal Medicine 02/16/22 Reilly Baker MD, PHD Surgeon Neurosurgery 01/20/22 Dafne Hilton MD [address] [place] [address] Specialist Cardiology 10/13/22 Desi Swenson NP [address] [place], [place] [phone] Cardiology 02/29/24 documented as of this encounter
--- OUTSIDE RECORDS SUMMARY | 2024-10-17 17:22 | XMS_ITS | Encounter Summary ---
Author Organization [facility] Address [address] [place] [address] Care Team Providers Care Industrial Cafeteria Manager Name Role Phone Brett Velásquez MD Primary Care Provider Keisha Luna MD Primary Care Provider [phone] Brett Velásquez MD Primary Care Provider Reilly Stewart MD, PHD Unavailable Unava ilable Brett Velásquez MD Primary Care Provider Wayne Dickson Primary Care Provider [phone] Dafne Hilton MD Unavailable [phone] Desi Swenson NP Unavailable [phone] Encounter Details Date Type Department Care Team Description 09/26/2012 Single Pass Soil Stabilizer Operator Report Medical Records [address] [place] [address] Shaquille Chandra Social History Tobacco Use Types [...] Date Type Specialty Care Team Description 04/29/2027 Single Pass Soil Stabilizer Operator Report Abstract, Provider documented as of this encounter Visit Diagnoses Not on filedocumented in this encounter Care Teams Industrial Cafeteria Manager Relationship Specialty Start Date End Date Brett Velásquez MD PCP - General Internal Medicine 10/29/11 06/19/15 Keisha Chavez MD [address] [place] [address] PCP - General Internal Medicine 06/20/15 04/20/16 Brett Velásquez MD PCP - General Internal Medicine 04/21/16 01/25/22 Brett Velásquez MD PCP - General Internal Medicine 01/26/22 02/15/22 Wayne Jaimes [address] [place] [address] PCP - General Internal Medicine 02/16/22 Reilly Baker MD, PHD [address] [place] [address] Surgeon Neurosurgery 01/20/22 Dafne Hilton MD [address] [place] [address] Specialist Cardiology 10/13/22 Desi Swenson NP [address] [place] [address] Cardiology 02/29/24 documented as of this encounter
--- OUTSIDE RECORDS SUMMARY | 2024-10-17 17:22 | XMS_ITS | Encounter Summary ---
Author Organization [facility] Address [address] [place] [address] Care Team Providers Care Panel Gluer Name Role Phone Reilly Baker MD, PHD Unavailable Unava Wayne Blackman Primary Care Provider [phone] Dafne Hilton MD Unavailable [phone] Desi Swenson NP Unavailable [phone] Encounter Details Date Type Department Care Team Description 10/13/2022 Telephone [facility] [address] [phone] Ankita Yanes MD [address] [id number] Social History Tobacco Use Types Packs/Day Years [...] Date Type Specialty Care Team Description 04/29/2027 Embedded Software Architect Report Abstract, Provider documented as of this encounter Visit Diagnoses Not on filedocumented in this encounter Care Teams Panel Gluer Relationship Specialty Start Date End Date Wayne Jaimes [address] [place] [address] PCP - General Internal Medicine 02/16/22 Reilly Baker MD, PHD Surgeon Neurosurgery 01/20/22 Dafne Hilton MD [address] [place] [address] Specialist Cardiology 10/13/22 Desi Swenson NP [address] [place] [address] Cardiology 02/29/24 documented as of this encounter
--- OUTSIDE RECORDS SUMMARY | 2024-10-17 17:22 | XMS_ITS | Encounter Summary ---
Author Organization [facility] Address [address] [place] [address] Care Team Providers Care Financial Sales Consultant Name Role Phone Brett Velásquez MD Primary Care Provider Reilly Stewart MD, PHD Unavailable UnaBrett Davis MD Primary Care Provider Wayne Dickson Primary Care Provider [phone] Dafne Hilton MD Unavailable [phone] Desi Swenson NP Unavailable [phone] Reason for Visit * Reason Onset Date Comments TEST RESULTS 11/06/2020 Encounter Details Date Type Department Care Team Description 11/06/2020 Telephone Adult Medicine [address] [address] Divya Ro PA [address] [place] [address] [phone] TEST RESULTS Social History Tobacco Use Types [...] Date Type Specialty Care Team Description 04/29/2027 Open Claims Representative Report Abstract, Provider documented as of this encounter Visit Diagnoses Not on filedocumented in this encounter Care Teams Financial Sales Consultant Relationship Specialty Start Date End Date Brett Velásquez MD PCP - General Internal Medicine 04/21/16 01/25/22 Brett Velásquez MD PCP - General Internal Medicine 01/26/22 02/15/22 Wayne Jaimes [address] [place] [address] PCP - General Internal Medicine 02/16/22 Reilly Baker MD, PHD Surgeon Neurosurgery 01/20/22 Dafne Hilton MD [address] [place] [address] Specialist Cardiology 10/13/22 Desi Swenson NP [address] [place] [address] Cardiology 02/29/24 documented as of this encounter
--- OUTSIDE RECORDS SUMMARY | 2024-10-17 17:22 | XMS_ITS | Encounter Summary ---
Author Organization [facility] Address [address] [place] [address] Care Team Providers Care Worm Picker Name Role Phone Brett Velásquez MD Primary Care Provider Reilly Stewart MD, PHD Unavailable Unava ilBrett Bailon MD Primary Care Provider Wayne Dickson Primary Care Provider [phone] Dafne Hilton MD Unavailable Desi Swenson NP Unavailable [phone] Encounter Details Date Type Department Care Team Description 01/23/2020 [facility] Medical Records [address] [place] [address] Vladislav Antunez DO Social History Tobacco Use [...] Date Type Specialty Care Team Description 04/29/2027 Ground Service Equipment Mechanic Report Abstract, Provider documented as of this encounter Visit Diagnoses Not on filedocumented in this encounter Care Teams Worm Picker Relationship Specialty Start Date End Date Brett Velásquez MD PCP - General Internal Medicine 04/21/16 01/25/22 Brett Velásquez MD PCP - General Internal Medicine 01/26/22 02/15/22 Wayne Jaimes [address] [place] [address] PCP - General Internal Medicine 02/16/22 Reilly Baker MD, PHD Surgeon Neurosurgery 01/20/22 Dafne Hilton MD [address] [place] [address] Specialist Cardiology 10/13/22 Desi Swenson NP [address] [place] [address] Cardiology 02/29/24 documented as of this encounter
--- OUTSIDE RECORDS SUMMARY | 2024-10-17 17:22 | XMS_ITS | Encounter Summary ---
Author Organization [facility] Address [address] [place] [address] Care Team Providers Care Internet Database Specialist Name Role Phone Brett Velásquez MD Primary Care Provider Reilly Stewart MD, PHD Unavailable Unava ilBrett Bailon MD Primary Care Provider Wayne Dickson Primary Care Provider [phone] Dafne Hilton MD Unavailable [phone] Desi Swenson NP Unavailable [phone] Encounter Details Date Type Department Care Team Description 12/14/2017 Fiberglass Autobody Repairer Report Medical Records [address] [place] [address] Rehab., [place] Social History Tobacco Use Types Packs/Day Years [...] Date Type Specialty Care Team Description 04/29/2027 Fiberglass Autobody Repairer Report Abstract, Provider documented as of this encounter Visit Diagnoses Not on filedocumented in this encounter Care Teams Internet Database Specialist Relationship Specialty Start Date End Date Brett Velásquez MD PCP - General Internal Medicine 04/21/16 01/25/22 Brett Velásquez MD PCP - General Internal Medicine 01/26/22 02/15/22 Wayne Jaimes [address] [place] [address] PCP - General Internal Medicine 02/16/22 Reilly Baker MD, PHD Surgeon Neurosurgery 01/20/22 Dafne Hilton MD [address] [place] [address] Specialist Cardiology 10/13/22 Desi Swenson NP [address] [place] [address] Cardiology 02/29/24 documented as of this encounter
--- OUTSIDE RECORDS SUMMARY | 2024-10-17 17:22 | XMS_ITS | Encounter Summary ---
Author Organization [facility] Address [address] [place] [address] Care Team Providers Care General Manager Food Name Role Phone Reilly Baker MD, PHD Unavailable Unava ilable Wayne Jaimes Primary Care Provider [phone] Dafne Hilton MD Unavailable [phone] Desi Swenson NP Unavailable [phone] Encounter Details Date Type Department Care Team Description 07/01/2022 Steam Cleaning Machine Operator Report Medical Records [address] [place] [address] Maxwell Gordon MD Social History Tobacco Use [...] Date Type Specialty Care Team Description 04/29/2027 Steam Cleaning Machine Operator Report Abstract, Provider documented as of this encounter Visit Diagnoses Not on filedocumented in this encounter Care Teams General Manager Food Relationship Specialty Start Date End Date Wayne Jaimes [address] [place] [address] PCP - General Internal Medicine 02/16/22 Reilly Baker MD, PHD Surgeon Neurosurgery 01/20/22 Dafne Hilton MD [address] [place] [address] Specialist Cardiology 10/13/22 Desi Swenson NP [address] [place] [address] Cardiology 02/29/24 documented as of this encounter
--- OUTSIDE RECORDS SUMMARY | 2024-10-17 17:22 | XMS_ITS ---
Author Organization [facility] Address [address] [facility] [address] [place] [address] Care Team Providers Care Ceramic Designer Name Role Phone Wayne Jaimes MD Primary Care Provider DESI Burks Unavailable [phone] Allergies No Known Allergies REASON FOR VISIT [...] Active Diclofenac Sodium 1 % as directed Machine Stonecutter ally place 1 g onto the skin [...] 10/11/2024 Encounters Encounter Location Date Provider Diagnosis [facility] [address] [facility] [address] [place] [address] 10/11/2024 DESI LI Onychomycosis B35.1 ; Calcium [...] days 10/11/2024 Efinaconazole 10 % 1 application Machine Stonecutter ally Once a day for 90 days [...] Name:DESI LI, 01/10/2025 02:45:00 PM, [address] [address], [place], [address], Progress Notes * Mckinley LEWISOB:1955 ([age] yo M)Acc No.[id number]:10/11/2024 Progress Note Patient:?Laina LEWIS Provider:?Desi Li DPM :1955???Age:68 Y???Sex:Male Nael e:10/11/2024 Address:[address] [place], [place] [id number] Pcp:Wayne Jaimes MD Subjective: * Chief Complaints: [...] bilaterally, protective sensation intact 10/10 with 5.07 Spring Alisha bilaterally, vibratory sensation with tuning fork [...] Months * Billing Information: * Visit Code:? 29135 Office Visit, Est Pt., Level 4. * Procedure Codes:? * Sign off status: Completed true * Provider:?Desi Li DPM Date:? 10/11/2024 Generated for Tatiana lema/Nilsa/Kamillesmitting on:?10/17/2024 05:22 PM EDT History and Physical Notes * [...] bilaterally, protective sensation intact 10/10 with 5.07 Spring Alisha bilaterally, vibratory sensation with tuning fork [...]
--- OUTSIDE RECORDS SUMMARY | 2024-10-17 17:22 | XMS_ITS | Encounter Summary ---
Author Organization [facility] Address [address] [place] [address] Care Team Providers Care Face Hardener Name Role Phone Reilly Baker MD, PHD Unavailable Unava ilWayne Osborne Primary Care Provider [phone] Dafne Hilton MD Unavailable [phone] Desi Swenson NP Unavailable [phone] Encounter Details Date Type Department Care Team Description 09/14/2022 Refill Nephrology - [place] [address] [place] [address] Eduard Mccormick MD [address] [place] [address] Social History Tobacco Use Types Packs/Day Years [...] Date Type Specialty Care Team Description 04/29/2027 Exercise Equipment Repair Technician Report Abstract, Provider documented as of this encounter Visit Diagnoses Not on filedocumented in this encounter Care Teams Face Hardener Relationship Specialty Start Date End Date Wayne Jaimes [address] [place] [address] PCP - General Internal Medicine 02/16/22 Reilly Baker MD, PHD Surgeon Neurosurgery 01/20/22 Dafne Hilton MD [address] [place] [address] Specialist Cardiology 10/13/22 Desi Swenson NP [address] [place], [place] [phone] Cardiology 02/29/24 documented as of this encounter
--- OUTSIDE RECORDS SUMMARY | 2024-10-17 17:22 | XMS_ITS | Encounter Summary ---
Author Organization [facility] Address [address] [place] [address] Care Team Providers Care Early Childhood Name Role Phone Reilly Baker MD, PHD Unavailable Unava ilable Wayne Jaimes Primary Care Provider Dafne Hilton MD Unavailable [phone] Desi Swenson NP Unavailable [phone] Encounter Details Date Type Department Care Team Description 04/08/2022 Pt. Non Urgent Medical Question Adult Medicine [address] [address] Wayne Jaimes [address] [place] [address] Social History Tobacco Use Types Packs/Day Years [...] Date Type Specialty Care Team Description 04/29/2027 Filer Metal Patterns Report Abstract, Provider documented as of this encounter Visit Diagnoses Not on filedocumented in this encounter Care Teams Early Childhood Relationship Specialty Start Date End Date Erinarin Wayne Dowell [address] [place] [address] PCP - General Internal Medicine 02/16/22 Reilly Baker MD, PHD Surgeon Neurosurgery 01/20/22 Dafne Hilton MD [address] [place] [address] Specialist Cardiology 10/13/22 Desi Swenson NP [address] [place] [address] Cardiology 02/29/24 documented as of this encounter
--- OUTSIDE RECORDS SUMMARY | 2024-10-17 17:22 | XMS_ITS | Encounter Summary ---
Author Organization [facility] Address [address] [place] [address] Care Team Providers Care Child Adolescent Psychiatrist Name Role Phone Reilly Baker MD, PHD Unavailable Unava ilable Wayne Jaimes Primary Care Provider [phone] Dafne Hilton MD Unavailable [phone] Desi Swenson NP Unavailable [phone] Encounter Details Date Type Department Care Team Description 02/18/2022 Hospital Medical Records [address] [place] [address] Yuliana Auguste MD [address] [place] [address] Social History Tobacco Use Types Packs/Day Years [...] Date Type Specialty Care Team Description 04/29/2027 Customs Examiner Report Abstract, Provider documented as of this encounter Visit Diagnoses Not on filedocumented in this encounter Care Teams Child Adolescent Psychiatrist Relationship Specialty Start Date End Date Wayne Jaimes [address] [place] [address] PCP - General Internal Medicine 02/16/22 Reilly Baker MD, PHD Surgeon Neurosurgery 01/20/22 Dafne Hilton MD [address] [place] [address] Specialist Cardiology 10/13/22 Desi Swenson NP [address] [place] [address] Cardiology 02/29/24 documented as of this encounter
--- OUTSIDE RECORDS SUMMARY | 2024-10-17 17:22 | XMS_ITS | Encounter Summary ---
Author Organization [facility] Address [address] [place] [address] Care Team Providers Care Compressed Gas Equipment Mechanic Name Role Phone Brett Velásquez MD Primary Care Provider Reilly Stewart MD, PHD Unavailable Unava Brett Villegas MD Primary Care Provider Wayne Dickson Primary Care Provider [phone] Dafne Hilton MD Unavailable [phone] Desi Swenson NP Unavailable [phone] Encounter Details Date Type Department Care Team Description 12/08/2017 Paper Cutting Machine Operator Report Medical Records [address] [place] [address] Mahsa Oreilly PA Social History Tobacco Use [...] Date Type Specialty Care Team Description 04/29/2027 Paper Cutting Machine Operator Report Abstract, Provider documented as of this encounter Visit Diagnoses Not on filedocumented in this encounter Care Teams Compressed Gas Equipment Mechanic Relationship Specialty Start Date End Date Brett Velásquez MD PCP - General Internal Medicine 04/21/16 01/25/22 Brett Velásquez MD PCP - General Internal Medicine 01/26/22 02/15/22 Wayne Jaimes [address] [place] [address] PCP - General Internal Medicine 02/16/22 Reilly Baker MD, PHD Surgeon Neurosurgery 01/20/22 Dafne Hilton MD [address] [place] [address] Specialist Cardiology 10/13/22 Desi Swenson NP [address] [place] [address] Cardiology 02/29/24 documented as of this encounter
--- OUTSIDE RECORDS SUMMARY | 2024-10-17 17:22 | XMS_ITS | Encounter Summary ---
Author Organization [facility] Address [address] [place] [address] Care Team Providers Care Custom Bookbinder Name Role Phone Reilly Baker MD, PHD Unavailable Unava Wayne Blackman Primary Care Provider Dafne Hilton MD Unavailable [phone] Desi Swenson NP Unavailable [phone] Reason for Visit * Reason Onset Date Comments Medication 09/14/2022 Changes, fyi to Dr Mccormick Encounter Details Date Type Department Care Team Description 09/14/2022 Telephone Nephrology - [place] [address] [place] [address] Eduard Mccormick MD [address] [place] [address] [id number] Medication (Changes, fyi to Dr Mccormick) Social [...] Notes * Telephone Encounter - Soraya bravo Galrand - 09/14/2022 1:35 PM EST Patient wants to let Dr Mccormick know about some changes to his medications made by [facility]. States hewas told to stop taking losartan 25 mg and cholecalciferol (Vitamin D3 1000 units) and was prescribed asprin 81 mg daily, atorvastatin 80 mg, daily at bedtime, and ticagrelor 90 mg, twice a day. documented in this encounter Plan of Treatment Upcoming Encounters Date Type Specialty Care Team Description 04/29/2027 Vp Ancillary Report Abstract, Provider documented as of this encounter Visit Diagnoses Not on filedocumented in this encounter Care Teams Custom Bookbinder Relationship Specialty Start Date End Date Wayne Jaimes [address] [place] [address] PCP - General Internal Medicine 02/16/22 Reilly Baker MD, PHD Surgeon Neurosurgery 01/20/22 Dafne Hilton MD [address] [place] [address] Specialist Cardiology 10/13/22 Desi Swenson NP [address] [place] [address] Cardiology 02/29/24 documented as of this encounter
--- OUTSIDE RECORDS SUMMARY | 2024-10-17 17:22 | XMS_ITS | Encounter Summary ---
Author Organization [facility] Address [address] [place] [address] Care Team Providers Care Matlab Developer Name Role Phone Reilly Baker MD, PHD Unavailable Unava ilable Wayne Jaimes Primary Care Provider [phone] Dafne Hilton MD Unavailable [phone] Desi Swenson NP Unavailable [phone] Encounter Details Date Type Department Care Team Description 04/29/2022 Financial Services Education Consultant Report Medical Records [address] [place] [address] Abstract, Provider Social History Tobacco Use Types [...] Date Type Specialty Care Team Description 04/29/2027 Financial Services Education Consultant Report Abstract, Provider documented as of this encounter Visit Diagnoses Not on filedocumented in this encounter Care Teams Matlab Developer Relationship Specialty Start Date End Date Wayne Jaimes [address] [place] [address] PCP - General Internal Medicine 02/16/22 Reilly Baker MD, PHD Surgeon Neurosurgery 01/20/22 Dafne Hilton MD [address] [place], [place] [id number] Specialist Cardiology 10/13/22 Desi Swenson NP [address] [place] [address] Cardiology 02/29/24 documented as of this encounter
--- OUTSIDE RECORDS SUMMARY | 2024-10-17 17:22 | XMS_ITS | Encounter Summary ---
Author Organization [facility] Address [address] [place] [address] Care Team Providers Care Catheter Finisher And Inspector Name Role Phone Brett Velásquez MD Primary Care Provider Keisha Luna MD Primary Care Provider [phone] Brett Velásquez MD Primary Care Provider Reilly Stewart MD, PHD Unavailable Unava ilable Brett Velásquez MD Primary Care Provider Wayne Dickson Primary Care Provider [phone] Dafne Hilton MD Unavailable [phone] Desi Swenson NP Unavailable [phone] Encounter Details Date Type Department Care Team Description 10/11/2012 Caustic Cresylate Shift Superintendent Report Medical Records [address] [place] [address] Kareem Grier PA-C Social History Tobacco Use [...] Date Type Specialty Care Team Description 04/29/2027 Caustic Cresylate Shift Superintendent Report Abstract, Provider documented as of this encounter Visit Diagnoses Not on filedocumented in this encounter Care Teams Catheter Finisher And Inspector Relationship Specialty Start Date End Date Brett Velásquez MD PCP - General Internal Medicine 10/29/11 06/19/15 Keisha Chavez MD [address] [place] [address] PCP - General Internal Medicine 06/20/15 04/20/16 Brett Velásquez MD PCP - General Internal Medicine 04/21/16 01/25/22 Brett Velásquez MD PCP - General Internal Medicine 01/26/22 02/15/22 Wayne Jaimes [address] [place] [address] PCP - General Internal Medicine 02/16/22 Reilly Baker MD, PHD [address] [place] [address] Surgeon Neurosurgery 01/20/22 Dafne Hilton MD [address] [place] [address] Specialist Cardiology 10/13/22 Desi Swenson NP [address] [place] [address] Cardiology 02/29/24 documented as of this encounter
--- OUTSIDE RECORDS SUMMARY | 2024-10-17 17:22 | XMS_ITS | Encounter Summary ---
Author Organization [facility] Address [address] [place] [address] Care Team Providers Care Cruller Maker Name Role Phone Reilly Baker MD, PHD Unavailable Brett España MD Primary Care Provider Wayne Dickson Primary Care Provider [phone] Dafne Hilton MD Unavailable [phone] Desi Swenson NP Unavailable [phone] Encounter Details Date Type Department Care Team Description 01/26/2022 Orders Only Adult Medicine [address] [address] Brett Velásquez MD Preoperative examination; Screening for [...] Date Type Specialty Care Team Description 04/29/2027 Certified Dietary Manager Report Abstract, Provider documented as of this encounter Results * BASIC METABOLIC PANEL (02/19/2022 1:21 PM EDT) Pathologist [facility] GLOMERULAR FILTRATION RATE > 60 02/19/2022 5:28 PM EDT [facility] Comment: If patient is -Wallisian, multiply result by 1.21 Chronic Kidney Disease: [...] to patient->Immediate Brett Velásquez MD LAB [facility] * CBC (AUTO DIFF PLATELET) (02/19/2022 1:21 PM EDT) Pathologist [facility] WHITE BLOOD COUNT 6.9 4.8 - 10.8 x10-3/uL 02/19/2022 4:32 PM EDT [facility] RED BLOOD COUNT 5.1 4.5 - 5.5 x10-6/uL 02/19/2022 4:32 PM EDT [facility] Hemoglobin 15.3 13.5 - 17.5 g/dL 02/19/2022 4:32 PM EDT [facility] Hematocrit 45.7 42 - 54 % 02/19/2022 4:32 PM EDT [facility] MEAN CORPUSCULAR VOLUME 89.1 79 - 98 fL 02/19/2022 4:32 PM EDT [facility] MEAN CORPUSCULAR HEMOGLOBIN 29.8 27 - 32 pg 02/19/2022 4:32 PM EDT [facility] MEAN CORPUSCULAR HGB CONC 33.5 32 - 37 g/dL 02/19/2022 4:32 PM EDT [facility] RED CELL DISTRIBUTION WIDTH 11.8 11 - 15 % 02/19/2022 4:32 PM EDT [facility] PLT COUNT 221 130 - 400 x10-3/uL 02/19/2022 4:32 PM EDT [facility] MEAN PLATELET VOLUME 9.2 7 - 11 fL 02/19/2022 4:32 PM EDT [facility] NRBC % AUTO 0.0 <1 % 02/19/2022 4:32 PM EDT [facility] NEUTROPHILS % 66.7 % 02/19/2022 4:32 PM EDT [facility] LYMPH % 24.5 % 02/19/2022 4:32 PM EDT [facility] MONO % 7.8 % 02/19/2022 4:32 PM EDT [facility] EOS % 0.4 % 02/19/2022 4:32 PM EDT [facility] BASO % 0.3 % 02/19/2022 4:32 PM EDT [facility] IMMATURE GRANULOCYTES % 0.3 % 02/19/2022 4:32 PM EDT [facility] NRBC # AUTO 0.00 <0.1 x10-3/uL 02/19/2022 [...] Brett Velásquez MD LAB Performing Organization Address City/State/[facility] Co de Phone Number [facility] documented in this encounter Visit Diagnoses Diagnosis Preoperative examination Preoperative examination, unspecified Screening for deficiency anemia Screening for other and unspecified deficiency anemia Isolated proteinuria with other morphologic lesion documented in this encounter Care Teams Cruller Maker Relationship Specialty Start Date End Date Brett Velásquez MD PCP - General Internal Medicine 01/26/22 02/15/22 Wayne Jaimes [address] [place] [address] PCP - General Internal Medicine 02/16/22 Reilly Baker MD, PHD Surgeon Neurosurgery 01/20/22 Dafne Hilton MD [address] [place] [address] Specialist Cardiology 10/13/22 Desi Swenson NP [address] [place] [address] Cardiology 02/29/24 documented as of this encounter
--- OUTSIDE RECORDS SUMMARY | 2024-10-17 17:22 | XMS_ITS | Encounter Summary ---
Author Organization [facility] Address [address] [place] [address] Care Team Providers Care Health Information Clerk Name Role Phone Brett Velásquez MD Primary Care Provider Reilly Stewart MD, PHD Unavailable Unava Brett Villegas MD Primary Care Provider Wayne Dickson Primary Care Provider [phone] Dafne Hilton MD Unavailable [phone] Desi Swenson NP Unavailable Encounter Details Date Type Department Care Team Description 11/05/2020 [facility] Medical Records [address] [place] [address] Vladislav Antunez DO Social History Tobacco Use [...] Type Specialty Care Team Description 04/29/2027 Cloth Inspector Report Abstract, Provider documented as of this encounter Visit Diagnoses Not on filedocumented in this encounter Care Teams Health Information Clerk Relationship Specialty Start Date End Date Brett Velásquez MD PCP - General Internal Medicine 04/21/16 01/25/22 Brett Velásquez MD PCP - General Internal Medicine 01/26/22 02/15/22 Wayne Jaimes [address] [place] [address] PCP - General Internal Medicine 02/16/22 Reilly Baker MD, PHD Surgeon Neurosurgery 01/20/22 Dafne Hilton MD [address] [place] [address] Specialist Cardiology 10/13/22 Desi Swenson NP [address] [place] [address] Cardiology 02/29/24 documented as of this encounter
--- OUTSIDE RECORDS SUMMARY | 2024-10-17 17:22 | XMS_ITS | Encounter Summary ---
Author Organization [facility] Address [address] [place] [address] Care Team Providers Care Laboratory Assistant Name Role Phone Brett Velásquez MD Primary Care Provider Keisha Luna MD Primary Care Provider [phone] Brett Velásquez MD Primary Care Provider Reilly Stewart MD, PHD Unavailable Unava ilable Brett Velásquez MD Primary Care Provider Wayne Dickson Primary Care Provider [phone] Dafne Hilton MD Unavailable [phone] Desi Swenson NP Unavailable [phone] Encounter Details Date Type Department Care Team Description 10/11/2012 Release of Information Medical Records [address] [place] [address] Abstract, Provider Social History Tobacco Use Types [...] Date Type Specialty Care Team Description 04/29/2027 Roster Clerk Report Abstract, Provider documented as of this encounter Visit Diagnoses Not on filedocumented in this encounter Care Teams Laboratory Assistant Relationship Specialty Start Date End Date Brett Velsáquez MD PCP - General Internal Medicine 10/29/11 06/19/15 Keisha Chavez MD [address] [place] [address] PCP - General Internal Medicine 06/20/15 04/20/16 Brett Velásquez MD PCP - General Internal Medicine 04/21/16 01/25/22 Brett Velásquez MD PCP - General Internal Medicine 01/26/22 02/15/22 Wayne Jaimes [address] [place], [place] [address] PCP - General Internal Medicine 02/16/22 Reilly Baker MD, PHD [address] [place] [address] Surgeon Neurosurgery 01/20/22 Dafne Hilton MD [address] [place] [address] Specialist Cardiology 10/13/22 Desi Swenson NP [address] [place] [address] Cardiology 02/29/24 documented as of this encounter
--- OUTSIDE RECORDS SUMMARY | 2024-10-17 17:22 | XMS_ITS | Encounter Summary ---
Author Organization [facility] Address [address] [place] [address] Care Team Providers Care Extra Gang Supervisor Name Role Phone Reilly Baker MD, PHD Unavailable Unava ilWayne Osborne Primary Care Provider Dafne Hilton MD Unavailable [phone] Desi Swenson NP Unavailable [phone] Encounter Details Date Type Department Care Team Description 09/14/2022 Refill Nephrology - [place] [address] [place] [address] Eduard Mccormick MD [address] [place] [address] Social History Tobacco Use Types Packs/Day Years [...] Date Type Specialty Care Team Description 04/29/2027 Post Anesthesia Room Nurse Report Abstract, Provider documented as of this encounter Visit Diagnoses Not on filedocumented in this encounter Care Teams Extra Gang Supervisor Relationship Specialty Start Date End Date Wayne Jaimes Delmer [address] [place] [address] PCP - General Internal Medicine 02/16/22 Reilly Baker MD, PHD Surgeon Neurosurgery 01/20/22 Dafne Hilton MD [address] [place] [address] Specialist Cardiology 10/13/22 Desi Swenson NP [address] [place], [place] [address] Cardiology 02/29/24 documented as of this encounter
--- OUTSIDE RECORDS SUMMARY | 2024-10-17 17:22 | XMS_ITS | Encounter Summary ---
Author Organization [facility] Address [address] [place] [address] Care Team Providers Care Brush Painter Name Role Phone Reilly Baker MD, PHD Unavailable Unava ilWayne Osborne Primary Care Provider Dafne Hilton MD Unavailable [phone] Desi Swenson NP Unavailable [phone] Encounter Details Date Type Department Care Team Description 04/01/2022 SCAN [facility] [address] [facility] [address] [place] [phone] Ena Whipple PA-C [address] [address] Social History Tobacco Use Types Packs/Day Years [...] Date Type Specialty Care Team Description 04/29/2027 Billet Examiner Report Abstract, Provider documented as of this encounter Visit Diagnoses Not on filedocumented in this encounter Care Teams Brush Painter Relationship Specialty Start Date End Date Wayne Jaimes [address] [place] [address] PCP - General Internal Medicine 02/16/22 Reilly Baker MD, PHD Surgeon Neurosurgery 01/20/22 Dafne Hilton MD [address] [place] [address] Specialist Cardiology 10/13/22 Desi Swenson NP [address] [place], [place] [phone] Cardiology 02/29/24 documented as of this encounter
--- OUTSIDE RECORDS SUMMARY | 2024-10-17 17:23 | XMS_ITS | Encounter Summary ---
Author Organization [facility] Address [address] [place] [address] Care Team Providers Care Environmental Programs Manager Name Role Phone Reilly Baker MD, PHD Unavailable Unava ilable Wayne Jaimes Primary Care Provider [phone] Dafne Hilton MD Unavailable [phone] Desi Swenson NP Unavailable [phone] Encounter Details Date Type Department Care Team Description 10/11/2023 Lockstitch Tunnel Elastic Operator Report Medical Records [address] [place] [address] Vladislav Antunez DO Social History Tobacco Use [...] Date Type Specialty Care Team Description 04/29/2027 Lockstitch Tunnel Elastic Operator Report Abstract, Provider documented as of this encounter Visit Diagnoses Not on filedocumented in this encounter Care Teams Environmental Programs Manager Relationship Specialty Start Date End Date Wayne Jaimes [address] [place] [address] PCP - General Internal Medicine 02/16/22 Reilly Baker MD, PHD Surgeon Neurosurgery 01/20/22 Dafne Hilton MD [address] [place] [address] Specialist Cardiology 10/13/22 Desi Swenson NP [address] [place] [address] Cardiology 02/29/24 documented as of this encounter
--- OUTSIDE RECORDS SUMMARY | 2024-10-17 17:23 | XMS_ITS | Encounter Summary ---
Author Organization [facility] Address [address] [place] [address] Care Team Providers Care Bone Process Operator Name Role Phone Reilly Baker MD, PHD Unavailable Unava ilWayne Osborne Primary Care Provider [phone] Dafne Hilton MD Unavailable [phone] Desi Swenson NP Unavailable [phone] Encounter Details Date Type Department Care Team Description 08/20/2023 Telephone Gastroenterology - [place] 175 [facility] [address] [place] [phone] Kevin Oliva PA-C [address] [address] Social History Tobacco Use Types Packs/Day Years [...] Type Specialty Care Team Description 04/29/2027 It Professional Report Abstract, Provider documented as of this encounter Visit Diagnoses Not on filedocumented in this encounter Care Teams Bone Process Operator Relationship Specialty Start Date End Date NovabelkisJose M hinklegil Dowell [address] [place] [address] PCP - General Internal Medicine 02/16/22 Reilly Baker MD, PHD Surgeon Neurosurgery 01/20/22 Dafne Hilton MD [address] [place] [address] Specialist Cardiology 10/13/22 Desi Swenson NP [address] [place] [address] Cardiology 02/29/24 documented as of this encounter
--- OUTSIDE RECORDS SUMMARY | 2024-10-17 17:23 | XMS_ITS | Encounter Summary ---
Author Organization [facility] Address [address] [place] [address] Care Team Providers Care Maintenance Analyst Name Role Phone Brett Velásquez MD Primary Care Provider Reilly Stewart MD, PHD Unavailable UnaBrett Davis MD Primary Care Provider Wayne Dickson Primary Care Provider [phone] Dafne Hilton MD Unavailable [phone] Desi Swenson NP Unavailable [phone] Encounter Details Date Type Department Care Team Description 02/11/2021 Telephone [facility] [address] [phone] Hermes Alegre MD [address] [address] Social History Tobacco Use Types [...] Debbie Nguyen - 02/11/2021 12:52 PM EDT [facility] CALLED WITH A DELIVERY DATE OF 02/12/21 FOR SUCH[facility] EUFLEXXA documented in this encounter Plan of Treatment Upcoming Encounters Date Type Specialty Care Team Description 04/29/2027 Superintendent Laundry Report Abstract, Provider documented as of this encounter Visit Diagnoses Not on filedocumented in this encounter Care Teams Maintenance Analyst Relationship Specialty Start Date End Date Brett Velásquez MD PCP - General Internal Medicine 04/21/16 01/25/22 Brett Velásquez MD PCP - General Internal Medicine 01/26/22 02/15/22 Wayne Jaimes [address] [place] [address] PCP - General Internal Medicine 02/16/22 Reilly Baker MD, PHD Surgeon Neurosurgery 01/20/22 Dafne Hilton MD [address] [place] [address] Specialist Cardiology 10/13/22 Desi Swenson NP [address] [place] [address] Cardiology 02/29/24 documented as of this encounter
--- OUTSIDE RECORDS SUMMARY | 2024-10-17 17:23 | XMS_ITS | Patient Health Record ---
Author Organization [facility] Address [address] [facility] [address] [place] [address] Care Team Providers Care Planer Feeder Name Role Phone Wayne Jaimes MD Primary Care Provider JORGE L Burks Unavailable [phone] Allergies No Known Allergies Reason For Referral [...] Active Diclofenac Sodium 1 % as directed Priming Machine Operator ally place 1 g onto the [...] Problem Status W/U Status Risk Notes Problem [id number] Primary osteoarthritis, right ankle and foot (M19.071) Active confirmed Problem 916493134 Primary osteoarthritis, left 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) Active confirmed Problem [id number] Equinus contracture of right ankle (M24.571) Active confirmed Problem 7787584 Psoriasis (L40.9) Active confirmed Problem Lumbar radiculopathy (279196007) Lumbar radiculopathy, right (M54.16) Active confirmed Problem 883715872 Calcium pyrophosphate deposition disease (CPPD) (M11.20) Active [...] N/A Encounters Encounter Location Date Provider Diagnosis [facility] [address] [address] 12/24/2023 JORGE L REDDY Onychomycosis B35.1 ; Calcium pyrophosphate deposition disease (CPPD) M11.20 ; Psoriasis L40.9 ; Hallux limitus of left foot M20.5X2 ; Hallux limitus of right foot M20.5X1 and Lumbar radiculopathy, right M54.16 [facility] [address] [address] 04/10/2024 JORGE L REDDY Onychomycosis B35.1 ; Calcium pyrophosphate deposition disease (CPPD) M11.20 ; Psoriasis L40.9 ; Hallux limitus of left foot M20.5X2 ; Hallux limitus of right foot M20.5X1 ; Lumbar radiculopathy, right M54.16 ; Achilles tendinitis, right leg M76.61 and Achilles tendinitis, left leg M76.62 [facility] [address] [address] 07/10/2024 JORGE L REDDY Onychomycosis B35.1 ; Calcium pyrophosphate deposition disease (CPPD) M11.20 ; Psoriasis L40.9 ; Hallux limitus of left foot M20.5X2 ; Hallux limitus of right foot M20.5X1 ; Lumbar radiculopathy, right M54.16 ; Achilles tendinitis, right leg M76.61 and Achilles tendinitis, left leg M76.62 [facility] [address] [facility] [address] [place] [address] 10/11/2024 JORGE L BARRY Onychomycosis B35.1 ; [...] L REDDY, 01/10/2025 02:45:00 PM, [address] [facility] [address], [place], [address], Insurance Providers Payer Name Payer Address Payer Phone Subscriber Number Group Number Insured Name Patient Relationship to Insured Coverage Start Date Coverage End Date [employer] care medicare [facility] [address] [address] [place] [address] [id number] [facility] - patient is the [...]
--- OUTSIDE RECORDS SUMMARY | 2024-10-17 17:23 | XMS_ITS | Encounter Summary ---
Author Organization [facility] Address [address] [place] [address] Care Team Providers Care Moving Picture Operator Name Role Phone Brett Velásquez MD Primary Care Provider Keisha Luna MD Primary Care Provider [phone] Brett Velásquez MD Primary Care Provider Reilly Stewart MD, PHD Unavailable Unava ilable Brett Velásquez MD Primary Care Provider Wayne Dickson Primary Care Provider [phone] Dafne Hilton MD Unavailable [phone] Desi Swenson NP Unavailable [phone] Encounter Details Date Type Department Care Team Description 05/30/2013 Release of Information Medical Records [address] [place] [address] Abstract, Provider Social History Tobacco Use Types [...] Date Type Specialty Care Team Description 04/29/2027 Aoc Aadc Operations Staff Officer Report Abstract, Provider documented as of this encounter Visit Diagnoses Not on filedocumented in this encounter Care Teams Moving Picture Operator Relationship Specialty Start Date End Date Brett Velásquez MD PCP - General Internal Medicine 10/29/11 06/19/15 Keisha Chavez MD [address] [place] [address] PCP - General Internal Medicine 06/20/15 04/20/16 Brett Velásquez MD PCP - General Internal Medicine 04/21/16 01/25/22 Brett Velásquez MD PCP - General Internal Medicine 01/26/22 02/15/22 Wayne Jaimes [address] [place], [place] [id number] PCP - General Internal Medicine 02/16/22 Reilly Baker MD, PHD [address] [place] [address] Surgeon Neurosurgery 01/20/22 Dafne Hilton MD [address] [place] [address] Specialist Cardiology 10/13/22 Desi Swenson NP [address] [place] [address] Cardiology 02/29/24 documented as of this encounter
--- OUTSIDE RECORDS SUMMARY | 2024-10-17 17:23 | XMS_ITS | Encounter Summary ---
Author Organization [facility] Address [address] [place] [address] Care Team Providers Care Industrial Organizational Psychologist Name Role Phone Reilly Baker MD, PHD Unavailable Unava Wayne Blackman Primary Care Provider [phone] Dafne Hilton MD Unavailable [phone] Desi Swenson NP Unavailable [phone] Reason for Visit * Reason Onset Date Comments Provider Call Back 02/11/2023 Encounter Details Date Type Department Care Team Description 02/11/2023 Telephone Gastroenterology - [place] [address] [facility] [address] [place] [id number] Kevin Oliva PA-C [address] [facility] [address] [place] [address] Provider Call Back Social History Tobacco Use [...] and advise? * Telephone Encounter - Ena Carrasco - 02/11/2023 12:37 PM EDT Patient came into the office asking for a sooner appointment, was last seen 04/27/2022 presribed sulcrafate for symptoms, medication stopped working , symptoms are back. Please advise documented in this encounter Plan of Treatment Upcoming Encounters Date Type Specialty Care Team Description 04/29/2027 Press Feeder Report Abstract, Provider documented as of this encounter Visit Diagnoses Not on filedocumented in this encounter Care Teams Industrial Organizational Psychologist Relationship Specialty Start Date End Date Jose M Jaimesgil Dowell [address] [place] [address] PCP - General Internal Medicine 02/16/22 Reilly Baker MD, PHD Surgeon Neurosurgery 01/20/22 Dafne Hilton MD [address] [place] [address] Specialist Cardiology 10/13/22 Desi Swenson NP [address] [place] [address] Cardiology 02/29/24 documented as of this encounter
--- OUTSIDE RECORDS SUMMARY | 2024-10-17 17:23 | XMS_ITS | Encounter Summary ---
Author Organization [facility] Address [address] [place] [address] Care Team Providers Care Government Auditor Name Role Phone Brett Velásquez MD Primary Care Provider Reilly Stewart MD, PHD Unavailable Unava Brett Villegas MD Primary Care Provider Wayne Dickson Primary Care Provider [phone] Dafne Hilton MD Unavailable [phone] Desi Swenson NP Unavailable [phone] Encounter Details Date Type Department Care Team Description 09/16/2020 Casting House Laborer Report Medical Records [address] [place] [address] Zuleika Baez PA-C Social History Tobacco Use [...] Date Type Specialty Care Team Description 04/29/2027 Casting House Laborer Report Abstract, Provider documented as of this encounter Visit Diagnoses Not on filedocumented in this encounter Care Teams Government Auditor Relationship Specialty Start Date End Date Brett Velásquez MD PCP - General Internal Medicine 04/21/16 01/25/22 Brett Velásquez MD PCP - General Internal Medicine 01/26/22 02/15/22 Wayne Jaimes [address] [place] [address] PCP - General Internal Medicine 02/16/22 Reilly Baker MD, PHD Surgeon Neurosurgery 01/20/22 Dafne Hilton MD [address] [place] [address] Specialist Cardiology 10/13/22 Desi Swenson NP [address] [place] [address] Cardiology 02/29/24 documented as of this encounter
--- OUTSIDE RECORDS SUMMARY | 2024-10-17 17:23 | XMS_ITS | Encounter Summary ---
Author Organization [facility] Address [address] [place] [address] Care Team Providers Care Physical Integration Practitioner Name Role Phone Brett Velásquez MD Primary Care Provider Reilly Stewart MD, PHD Unavailable Unava Brett Villegas MD Primary Care Provider Wayne Dickson Primary Care Provider [phone] Dafne Hilton MD Unavailable [phone] Desi Swenson NP Unavailable [phone] Encounter Details Date Type Department Care Team Description 03/18/2021 Marine Scientist Report Medical Records [address] [place] [address] Zuleika Baez PA-C Social History Tobacco Use [...] Type Specialty Care Team Description 04/29/2027 Marine Scientist Report Abstract, Provider documented as of this encounter Visit Diagnoses Not on filedocumented in this encounter Care Teams Physical Integration Practitioner Relationship Specialty Start Date End Date Brett Velásquez MD PCP - General Internal Medicine 04/21/16 01/25/22 Brett Velásquez MD PCP - General Internal Medicine 01/26/22 02/15/22 Wayne Jaimes [address] [place] [address] PCP - General Internal Medicine 02/16/22 Reilly Baker MD, PHD Surgeon Neurosurgery 01/20/22 Dafne Hilton MD [address] [place] [address] Specialist Cardiology 10/13/22 Desi Swenson NP [address] [place] [address] Cardiology 02/29/24 documented as of this encounter
--- OUTSIDE RECORDS SUMMARY | 2024-10-17 17:23 | XMS_ITS | Encounter Summary ---
Author Organization [facility] Address [address] [place] [address] Care Team Providers Care Fashion Adviser Name Role Phone Reilly Baker MD, PHD Unavailable Unava ilWayne Osborne Primary Care Provider [phone] Dafne Hilton MD Unavailable [phone] Desi Swenson NP Unavailable [phone] Encounter Details Date Type Department Care Team Description 01/18/2024 Telephone Gastroenterology - [place] [address] [facility] [address] [place] [address] Kevin Oliva PA-C [address] [facility] [address] [place] [address] Social History Tobacco Use Types Packs/Day Years [...] 01/31/2024 3:25 PM EDT Per Prisca at [facility], [facility] is not contracted with patient's insurance either, [facility] [employer]. Per abdias Brown to book at [facility]. Called Central Registration at [phone] but they want the order faxed with demo sheet. Faxed to [phone]. * Telephone Encounter - Alexandria John - 01/31/2024 3:08 PM EDT Patient came in office stating [facility] is not accepting patient insurance. Please schedule appointment at [facility] for Barium Swallow and contact patient with information. * Telephone Encounter - Cristina Jimenez - 01/18/2024 8:21 AM EDT Booked Barium Swallow at [address] [place] [address] for patient on January 31 at 8am w/ arrival at 7:45am. Called the patient to notify of appointment details, including nothing to eat/drink after midnight. I also mailed an appointment letter. Order has been faxed to [phone]. documented in this encounter Plan of Treatment Upcoming Encounters Date Type Specialty Care Team Description 04/29/2027 Telecommunications Professional Report Abstract, Provider documented as of this encounter Visit Diagnoses Not on filedocumented in this encounter Care Teams Fashion Adviser Relationship Specialty Start Date End Date Wayne JaimesUsama [address] [place] [address] PCP - General Internal Medicine 02/16/22 Reilly Baker MD, PHD Surgeon Neurosurgery 01/20/22 Dafne Hilton MD [address] [place] [address] Specialist Cardiology 10/13/22 Desi Swenson NP [address] [place] [address] Cardiology 02/29/24 documented as of this encounter
--- OUTSIDE RECORDS SUMMARY | 2024-10-17 17:23 | XMS_ITS | Encounter Summary ---
Author Organization [facility] Address [address] [place] [address] Care Team Providers Care Manager Photo Name Role Phone Brett Velásquez MD Primary Care Provider Reilly Stewart MD, PHD Unavailable Unava Brett Villegas MD Primary Care Provider Wayne Dickson Primary Care Provider [phone] Dafne Hilton MD Unavailable [phone] Desi Swenson NP Unavailable [phone] Encounter Details Date Type Department Care Team Description 03/31/2017 Salon Customer Experience Specialist Report Medical Records [address] [place] [address] Vipin Rhoades Social History Tobacco Use Types [...] Date Type Specialty Care Team Description 04/29/2027 Salon Customer Experience Specialist Report Abstract, Provider documented as of this encounter Visit Diagnoses Not on filedocumented in this encounter Care Teams Manager Photo Relationship Specialty Start Date End Date Brett Velásquez MD PCP - General Internal Medicine 04/21/16 01/25/22 Brett Velásquez MD PCP - General Internal Medicine 01/26/22 02/15/22 Wayne Jaimes [address] [place] [address] PCP - General Internal Medicine 02/16/22 Reilly Baker MD, PHD Surgeon Neurosurgery 01/20/22 Dafne Hilton MD [address] [place] [address] Specialist Cardiology 10/13/22 Desi Swenson NP [address] [place] [address] Cardiology 02/29/24 documented as of this encounter
--- OUTSIDE RECORDS SUMMARY | 2024-10-17 17:23 | XMS_ITS | Encounter Summary ---
Author Organization [facility] Address [address] [place] [address] Care Team Providers Care Surgical Nurse Practitioner Name Role Phone Brett Velásquez MD Primary Care Provider Reilly Stewart MD, PHD Unavailable UnaBrett Davis MD Primary Care Provider Wayne Dickson Primary Care Provider [phone] Dafne Hilton MD Unavailable [phone] Desi Swenson NP Unavailable [phone] Encounter Details Date Type Department Care Team Description 05/29/2020 Mower Sharpener Report Medical Records [address] [place] [address] Aleksandar Huggins MD Social History Tobacco Use [...] Date Type Specialty Care Team Description 04/29/2027 Mower Sharpener Report Abstract, Provider documented as of this encounter Visit Diagnoses Not on filedocumented in this encounter Care Teams Surgical Nurse Practitioner Relationship Specialty Start Date End Date Brett Velásquez MD PCP - General Internal Medicine 04/21/16 01/25/22 Brett Velásquez MD PCP - General Internal Medicine 01/26/22 02/15/22 Wayne Jaimes [address] [place] [address] PCP - General Internal Medicine 02/16/22 Reilly Baker MD, PHD Surgeon Neurosurgery 01/20/22 Dafne Hilton MD [address] [place] [address] Specialist Cardiology 10/13/22 Desi Swenson NP [address] [place], [place] [address] Cardiology 02/29/24 documented as of this encounter
--- OUTSIDE RECORDS SUMMARY | 2024-10-17 17:23 | XMS_ITS | Encounter Summary ---
Author Organization [facility] Address [address] [place] [address] Care Team Providers Care Net Lead Developer Name Role Phone Brett Velásquez MD Primary Care Provider Keisha Luna MD Primary Care Provider [phone] Brett Velásquez MD Primary Care Provider Reilly Stewart MD, PHD Unavailable Unava ilable Brett Velásquez MD Primary Care Provider Wayne Dickson Primary Care Provider [phone] Dafne Hilton MD Unavailable [phone] Desi Swenson NP Unavailable [phone] Encounter Details Date Type Department Care Team Description 03/02/2013 Engine Room Operator Report Medical Records [address] [place] [address] Rehab., [place] Social History Tobacco Use Types Packs/Day Years [...] Date Type Specialty Care Team Description 04/29/2027 Engine Room Operator Report Abstract, Provider documented as of this encounter Visit Diagnoses Not on filedocumented in this encounter Care Teams Net Lead Developer Relationship Specialty Start Date End Date Brett Velásquez MD PCP - General Internal Medicine 10/29/11 06/19/15 Keisha Chavez MD [address] [place] [address] PCP - General Internal Medicine 06/20/15 04/20/16 Brett Velásquez MD PCP - General Internal Medicine 04/21/16 01/25/22 Brett Velásquez MD PCP - General Internal Medicine 01/26/22 02/15/22 Wayne Jaimes [address] [place] [address] PCP - General Internal Medicine 02/16/22 Reilly Baker MD, PHD [address] [place] [address] Surgeon Neurosurgery 01/20/22 Dafne Hilton MD [address] [place] [address] Specialist Cardiology 10/13/22 Desi Swenson NP [address] [place] [address] Cardiology 02/29/24 documented as of this encounter
--- OUTSIDE RECORDS SUMMARY | 2024-10-17 17:23 | XMS_ITS | Encounter Summary ---
Author Organization [facility] Address [address] [place] [address] Care Team Providers Care Japanese Interpreter Name Role Phone Brett Velásquez MD Primary Care Provider Reilly Stewart MD, PHD Unavailable Unava ilBrett Bailon MD Primary Care Provider Wayne Dickson Primary Care Provider [phone] Dafne Hilton MD Unavailable [phone] Desi Swenson NP Unavailable [phone] Encounter Details Date Type Department Care Team Description 09/27/2018 Job Setter Honing Report Medical Records [address] [place] [address] Vipin Cowart Social History Tobacco Use Types [...] Type Specialty Care Team Description 04/29/2027 Job Setter Honing Report Abstract, Provider documented as of this encounter Visit Diagnoses Not on filedocumented in this encounter Care Teams Japanese Interpreter Relationship Specialty Start Date End Date Brett Velásquez MD PCP - General Internal Medicine 04/21/16 01/25/22 Brett Velásquez MD PCP - General Internal Medicine 01/26/22 02/15/22 Wayne Jaimes [address] [place] [address] PCP - General Internal Medicine 02/16/22 Reilly Baker MD, PHD Surgeon Neurosurgery 01/20/22 Dafne Hilton MD [address] [place] [address] Specialist Cardiology 10/13/22 Desi Swenson NP [address] [place] [address] Cardiology 02/29/24 documented as of this encounter
--- OUTSIDE RECORDS SUMMARY | 2024-10-17 17:23 | XMS_ITS | Encounter Summary ---
Author Organization [facility] Address [address] [place] [address] Care Team Providers Care Nematologist Name Role Phone Reilly Baker MD, PHD Unavailable Unava ilable Wayne Jaimes Primary Care Provider [phone] Dafne Hilton MD Unavailable [phone] Desi Swenson NP Unavailable [phone] Encounter Details Date Type Department Care Team Description 01/04/2023 Hospital Medical Records [address] [place] [address] Vladislav Antunez DO Social History Tobacco Use [...] Date Type Specialty Care Team Description 04/29/2027 Pail Bailer Report Abstract, Provider documented as of this encounter Visit Diagnoses Not on filedocumented in this encounter Care Teams Nematologist Relationship Specialty Start Date End Date Wayne Jaimes [address] [place] [address] PCP - General Internal Medicine 02/16/22 Reilly Baker MD, PHD Surgeon Neurosurgery 01/20/22 Dafne Hilton MD [address] [place] [address] Specialist Cardiology 10/13/22 Desi Swenson NP [address] [place], [place] [address] Cardiology 02/29/24 documented as of this encounter
--- OUTSIDE RECORDS SUMMARY | 2024-10-17 17:23 | XMS_ITS | Encounter Summary ---
Author Organization [facility] Address [address] [place] [address] Care Team Providers Care Hospice Case Manager Name Role Phone Brett Velásquez MD Primary Care Provider Reilly Stewart MD, PHD Unavailable Unava ilBrett Bailon MD Primary Care Provider Wayne Dickson Primary Care Provider [phone] Dafne Hilton MD Unavailable [phone] Desi Swenson NP Unavailable [phone] Encounter Details Date Type Department Care Team Description 08/10/2018 Concrete Conveyor Operator Report Medical Records [address] [place] [address] Aleksandar Huggins MD Social History Tobacco Use [...] Type Specialty Care Team Description 04/29/2027 Concrete Conveyor Operator Report Abstract, Provider documented as of this encounter Visit Diagnoses Not on filedocumented in this encounter Care Teams Hospice Case Manager Relationship Specialty Start Date End Date Brett Velásquez MD PCP - General Internal Medicine 04/21/16 01/25/22 Brett Velásquez MD PCP - General Internal Medicine 01/26/22 02/15/22 Wayne Jaimes [address] [place] [address] PCP - General Internal Medicine 02/16/22 Reilly Baker MD, PHD Surgeon Neurosurgery 01/20/22 Dafne Hilton MD [address] [place] [address] Specialist Cardiology 10/13/22 Desi Swenson NP [address] [place] [address] Cardiology 02/29/24 documented as of this encounter
--- OUTSIDE RECORDS SUMMARY | 2024-10-17 17:23 | XMS_ITS | Encounter Summary ---
Author Organization [facility] Address [address] [place] [address] Care Team Providers Care Vocational Rehabilitation Technician Name Role Phone Reilly Baker MD, PHD Unavailable Unava ilable Wayne Jaimes Primary Care Provider [phone] Dafne Hilton MD Unavailable [phone] Desi Swenson NP Unavailable [phone] Encounter Details Date Type Department Care Team Description 11/11[facility]23 [facility] [address] [place] [id number] Md Steve Social History Tobacco Use Types [...] Date Type Specialty Care Team Description 04/29/2027 Tire Regrooving Machine Operator Report Abstract, Provider documented as of this encounter Visit Diagnoses Not on filedocumented in this encounter Care Teams Vocational Rehabilitation Technician Relationship Specialty Start Date End Date Wayne Jaimes [address] [place] [address] PCP - General Internal Medicine 02/16/22 Reilly Baker MD, PHD Surgeon Neurosurgery 01/20/22 Dafne Hilton MD [address] [place] [address] Specialist Cardiology 10/13/22 Desi Swenson NP [address] [place] [address] Cardiology 02/29/24 documented as of this encounter
--- OUTSIDE RECORDS SUMMARY | 2024-10-17 17:23 | XMS_ITS | Encounter Summary ---
Author Organization [facility] Address [address] [place] [address] Care Team Providers Care Feed Mixer Helper Name Role Phone Reilly Baker MD, PHD Unavailable Unava ilWayne Osborne Primary Care Provider [phone] Dafne Hilton MD Unavailable [phone] Desi Swenson NP Unavailable [phone] Encounter Details Date Type Department Care Team Description 10/21/2023 Orders Only Medical Records [address] [place] [address] Shaquille Loredo PA-C [address] [place] [address] Social History Tobacco Use Types Packs/Day Years [...] Type Specialty Care Team Description 04/29/2027 Entry Tech Report Abstract, Provider documented as of this encounter Procedures Procedure Name Priority Date/Time Associated Diagnosis Comments OUTSIDE SLEEP STUDY Routine 05/09/2022 documented in this encounter Results * OUTSIDE SLEEP STUDY (05/09/2022) Shaquille Loredo PA-C PULMONOLOGY documented in this encounter Visit Diagnoses Not on filedocumented in this encounter Care Teams Feed Mixer Helper Relationship Specialty Start Date End Date Jose M Jaimesgil Dowell [address] [place] [address] PCP - General Internal Medicine 02/16/22 Reilly Baker MD, PHD Surgeon Neurosurgery 01/20/22 Dafne Hilton MD [address] [place] [address] Specialist Cardiology 10/13/22 Desi Swenson NP [address] [place] [address] Cardiology 02/29/24 documented as of this encounter
--- OUTSIDE RECORDS SUMMARY | 2024-10-17 17:23 | XMS_ITS | Encounter Summary ---
Author Organization [facility] Address [address] [place] [address] Care Team Providers Care Sql Ssrs Ssis Developer Name Role Phone Reilly Baker MD, PHD Unavailable Unava ilable Wayne Jaimes Primary Care Provider [phone] Dafne Hilton MD Unavailable [phone] Desi Swenson NP Unavailable [phone] Encounter Details Date Type Department Care Team Description 05/05/2023 Didactic Instructor Report Medical Records [address] [place] [address] Aleksandar Huggins MD Social History Tobacco Use [...] Date Type Specialty Care Team Description 04/29/2027 Didactic Instructor Report Abstract, Provider documented as of this encounter Visit Diagnoses Not on filedocumented in this encounter Care Teams Sql Ssrs Ssis Developer Relationship Specialty Start Date End Date Wayne Jaimes [address] [place], [place] [id number] PCP - General Internal Medicine 02/16/22 Reilly Baker MD, PHD Surgeon Neurosurgery 01/20/22 Dafne Hilton MD [address] [place] [address] Specialist Cardiology 10/13/22 Desi Swenson NP [address] [place], [place] [address] Cardiology 02/29/24 documented as of this encounter
--- OUTSIDE RECORDS SUMMARY | 2024-10-17 17:23 | XMS_ITS | Encounter Summary ---
Author Organization [facility] Address [address] [place] [address] Care Team Providers Care Production Solderer Name Role Phone Brett Velásquez MD Primary Care Provider Reilly Stewart MD, PHD Unavailable Unava Brett Villegas MD Primary Care Provider Wayne Dickson Primary Care Provider [phone] Dafne Hilton MD Unavailable [phone] Desi Swenson NP Unavailable [phone] Encounter Details Date Type Department Care Team Description 09/18/2020 Hvac Engineering Technician Report Medical Records [address] [place] [address] Desi Li DPM Social History Tobacco Use [...] Date Type Specialty Care Team Description 04/29/2027 Hvac Engineering Technician Report Abstract, Provider documented as of this encounter Visit Diagnoses Not on filedocumented in this encounter Care Teams Production Solderer Relationship Specialty Start Date End Date Brett Velásquez MD PCP - General Internal Medicine 04/21/16 01/25/22 Brett Velásquez MD PCP - General Internal Medicine 01/26/22 02/15/22 Wayne Jaimes [address] [place] [address] PCP - General Internal Medicine 02/16/22 Reilly Baker MD, PHD Surgeon Neurosurgery 01/20/22 Dafne Hilton MD [address] [place] [address] Specialist Cardiology 10/13/22 Desi Swenson NP [address] [place] [address] Cardiology 02/29/24 documented as of this encounter
--- OUTSIDE RECORDS SUMMARY | 2024-10-17 17:23 | XMS_ITS | Encounter Summary ---
Author Organization [facility] Address [address] [place] [address] Care Team Providers Care Decorator Lighting Fixtures Name Role Phone Brett Velásquez MD Primary Care Provider Reilly Stewart MD, PHD Unavailable Unava ilBrett Bailon MD Primary Care Provider Wayne Dickson Primary Care Provider [phone] Dafne Hilton MD Unavailable [phone] Desi Swenson NP Unavailable Encounter Details Date Type Department Care Team Description 08/06/2016 Release of Information Medical Records [address] [place] [address] Abstract, Provider Social History Tobacco Use Types [...] Date Type Specialty Care Team Description 04/29/2027 Turpentine Farmer Report Abstract, Provider documented as of this encounter Visit Diagnoses Not on filedocumented in this encounter Care Teams Decorator Lighting Fixtures Relationship Specialty Start Date End Date Brett Velásquez MD PCP - General Internal Medicine 04/21/16 01/25/22 Brett Velásquez MD PCP - General Internal Medicine 01/26/22 02/15/22 Wayne Jaimes [address] [place] [address] PCP - General Internal Medicine 02/16/22 Reilly Baker MD, PHD Surgeon Neurosurgery 01/20/22 Dafne Hilton MD [address] [place] [address] Specialist Cardiology 10/13/22 Desi Swenson NP [address] [place] [address] Cardiology 02/29/24 documented as of this encounter
--- OUTSIDE RECORDS SUMMARY | 2024-10-17 17:23 | XMS_ITS | Encounter Summary ---
Author Organization [facility] Address [address] [place] [address] Care Team Providers Care Rn Procedures Name Role Phone Reilly Baker MD, PHD Unavailable Unava ilable Wayne Jaimes Primary Care Provider [phone] Dafne Hilton MD Unavailable [phone] Desi Swenson NP Unavailable [phone] Encounter Details Date Type Department Care Team Description 01/06/2023 Walk In Clinic Visit Medical Records [address] [place] [address] Clinic, [facility] Walk-In [address] [place] [address] Social History Tobacco Use Types Packs/Day Years [...] Date Type Specialty Care Team Description 04/29/2027 River Crossing Supervisor Report Abstract, Provider documented as of this encounter Visit Diagnoses Not on filedocumented in this encounter Care Teams Rn Procedures Relationship Specialty Start Date End Date Wayne Jaimes [address] [place] [address] PCP - General Internal Medicine 02/16/22 Reilly Baker MD, PHD Surgeon Neurosurgery 01/20/22 Dafne Hilton MD [address] [place] [address] Specialist Cardiology 10/13/22 Desi Swenson NP [address] [place] [address] Cardiology 02/29/24 documented as of this encounter
--- OUTSIDE RECORDS SUMMARY | 2024-10-17 17:23 | XMS_ITS | Encounter Summary ---
Author Organization [facility] Address [address] [place] [address] Care Team Providers Care Bottoming Room Inspector Name Role Phone Reilly Baker MD, PHD Unavailable Unava ilable Wayne Jaimes Primary Care Provider [phone] Dafne Hilton MD Unavailable [phone] Desi Swenson NP Unavailable [phone] Encounter Details Date Type Department Care Team Description 05/10/2023 Finisher Fine Diamond Dies Report Medical Records [address] [place] [address] Gael Duvall Social History Tobacco Use Types [...] Date Type Specialty Care Team Description 04/29/2027 Finisher Fine Diamond Dies Report Abstract, Provider documented as of this encounter Visit Diagnoses Not on filedocumented in this encounter Care Teams Bottoming Room Inspector Relationship Specialty Start Date End Date Wayne Jaimes [address] [place] [address] PCP - General Internal Medicine 02/16/22 Reilly Baker MD, PHD Surgeon Neurosurgery 01/20/22 Dafne Hilton MD [address] [place] [address] Specialist Cardiology 10/13/22 Desi Swenson NP [address] [place], [place] [address] Cardiology 02/29/24 documented as of this encounter
--- OUTSIDE RECORDS SUMMARY | 2024-10-17 17:23 | XMS_ITS | Encounter Summary ---
Author Organization [facility] Address [address] [place] [address] Care Team Providers Care Six Sigma Black Trainer Name Role Phone Reilly Baker MD, PHD Unavailable Unava ilable Wayne Jaimes Primary Care Provider [phone] Dafne Hilton MD Unavailable [phone] Desi Swenson NP Unavailable Encounter Details Date Type Department Care Team Description 07/30/2023 Ref[facility]ly [facility] Medical [facility] [address] [facility] [address] [place] [address] Ena Whipple PA-C [address] [address] Social History Tobacco Use Types Packs/Day Years [...] Date Type Specialty Care Team Description 04/29/2027 Bottom Precipitator Operator Report Abstract, Provider documented as of this encounter Visit Diagnoses Not on filedocumented in this encounter Care Teams Six Sigma Black Trainer Relationship Specialty Start Date End Date Wayne Jaimes [address] [place] [address] PCP - General Internal Medicine 02/16/22 Reilly Baker MD, PHD Surgeon Neurosurgery 01/20/22 Dafne Hilton MD [address] [place] [address] Specialist Cardiology 10/13/22 Desi Swenson NP [address] [place] [address] Cardiology 02/29/24 documented as of this encounter
--- OUTSIDE RECORDS SUMMARY | 2024-10-17 17:23 | XMS_ITS ---
Author Organization [facility] Address [address] [facility] [address] [place] [address] Care Team Providers Care Chief Airport Guide Name Role Phone Wayne Jaimes MD Primary Care Provider DESI Burks Unavailable [phone] Allergies No Known Allergies REASON FOR VISIT [...] Not-Taking Diclofenac Sodium 1 % as directed Poultry Dressing Worker ally place 1 g onto the skin [...] W/U Status Risk Notes Problem Lumbar radiculopathy ([id number]) Lumbar radiculopat hy, right (M54.16) Active confirmed Procedures Procedure Date Ordered Date Performed Result Body Sit e DRAIN/INJECT, SMALL JOINT/BURSA 04/10/2024 N/A Encounters Encounter Location Date Provider Diagnosis [facility] [address] [address] 04/10/2024 DESI LI Onychomycosis B35.1 ; Calcium [...] Date Notes Efinaconazole 10 % 1 application Poultry Dressing Worker ally Once a day for 90 days [...] Name:DESI LI, 01/10/2025 02:45:00 PM, [address], [address], Medications Administered Medication Instructions Date of Administration Dosage Notes dexAMETHasone Sod Phosphate PF 04/10/2024 0.5 m L Kenalog 04/10/2024 0.5 mL Progress Notes * Mckinley LEWISOB:1955 ([age] yo M)Acc No.[id number]:04/10/2024 Progress Note Patient:?Laina LEWIS Provider:?Desi Li DPM :1955???Age:68 Y???Sex:Male Nael e:04/10/2024 Address:[address] [place], [place] [address] Pcp:Wayne Jaimes MD Subjective: * Chief Complaints: [...] bilaterally, protective sensation intact 10/10 with 5.07 [place] Alisha bilaterally, vibratory sensation with tuning fork [...] RT J1100 INJ DEXAMETHASONE SODIM PHOSHATE 1 [id number] INJ TRIAMCINOLONE ACETONIDE 10 MG * Follow Up:?3 Months * Billing Information: * Visit Code:? 75652 Office Visit, Est Pt., Level 4. Modifiers: 25 * Procedure Codes:? 24542 DRAIN/INJECT, SMALL JOINT/BURSA. Modifiers: RT J1100 INJ DEXAMETHASONE SODIM PHOSHATE 1 MG. J3301 INJ TRIAMCINOLONE ACETONIDE 10 MG. * Sign off status: Completed true * Provider:?Desi Li DPM Date:? 04/10/2024 Generated for Tatiana lema/Nilsa/Glo on:?10/17/2024 05:22 PM EDT History and Physical [...] bilaterally, protective sensation intact 10/10 with 5.07 [place] Alisha bilaterally, vibratory sensation with tuning fork [...]
--- OUTSIDE RECORDS SUMMARY | 2024-10-17 17:23 | XMS_ITS | Encounter Summary ---
Author Organization [facility] Address [address] [place] [address] Care Team Providers Care Auto Suspension And Steering Mechanic Name Role Phone Reilly Baker MD, PHD Unavailable Unava Wayne Blackman Primary Care Provider Dafne Hilton MD Unavailable [phone] Desi Swenson NP Unavailable [phone] Encounter Details Date Type Department Care Team Description 02/15/2024 Orders Only Gastroenterology - [place] [address] [facility] [address] [place] [address] Kevin Oliva PA-C 175 [facility] [address] [place] [address] Gastroesophageal reflux disease, unspecified whether esophagitis present; [...] Date Type Specialty Care Team Description 04/29/2027 Dry Color Mixer Report Abstract, Provider documented as of [...] type documented in this encounter Care Teams Auto Suspension And Steering Mechanic Relationship Specialty Start Date End Date Wayne Jaimes [address] [place] [address] PCP - General Internal Medicine 02/16/22 Reilly Baker MD, PHD Surgeon Neurosurgery 01/20/22 Dafne Hilton MD [address] [place] [address] Specialist Cardiology 10/13/22 Desi Swenson NP [address] [place] [address] Cardiology 02/29/24 documented as of this encounter
--- OUTSIDE RECORDS SUMMARY | 2024-10-17 17:23 | XMS_ITS | Encounter Summary ---
Author Organization [facility] Address [address] [place] [address] Care Team Providers Care Disability Case Manager Name Role Phone Brett Velásquez MD Primary Care Provider Reilly Stewart MD, PHD Unavailable Unava Brett Villegas MD Primary Care Provider Wayne Dickson Primary Care Provider [phone] Dafne Hilton MD Unavailable [phone] Desi Swenson NP Unavailable [phone] Encounter Details Date Type Department Care Team Description 04/12/2020 Handyman Report Medical Records [address] [place] [address] Ankita Mckeon NP Social History Tobacco Use [...] Date Type Specialty Care Team Description 04/29/2027 Handyman Report Abstract, Provider documented as of this encounter Visit Diagnoses Not on filedocumented in this encounter Care Teams Disability Case Manager Relationship Specialty Start Date End Date Brett Velásquez MD PCP - General Internal Medicine 04/21/16 01/25/22 Brett Velásquez MD PCP - General Internal Medicine 01/26/22 02/15/22 Wayne Jaimes [address] [place] [address] PCP - General Internal Medicine 02/16/22 Reilly Baker MD, PHD Surgeon Neurosurgery 01/20/22 Dafne Hilton MD [address] [place] [address] Specialist Cardiology 10/13/22 Desi Swenson NP [address] [place] [address] Cardiology 02/29/24 documented as of this encounter
--- OUTSIDE RECORDS SUMMARY | 2024-10-17 17:23 | XMS_ITS | Encounter Summary ---
Author Organization [facility] Address [address] [place] [address] Care Team Providers Care Glass Tube Bender Name Role Phone Brett Velásquez MD Primary Care Provider Reilly Stewart MD, PHD Unavailable Unava Brett Villegas MD Primary Care Provider Wayne Dickson Primary Care Provider [phone] Dafne Hilton MD Unavailable [phone] Desi Swenson NP Unavailable Encounter Details Date Type Department Care Team Description 08/15/2020 Layboy Operator Report Medical Records [address] [place] [address] Desi Li DPM Social History Tobacco Use [...] Date Type Specialty Care Team Description 04/29/2027 Layboy Operator Report Abstract, Provider documented as of this encounter Visit Diagnoses Not on filedocumented in this encounter Care Teams Glass Tube Bender Relationship Specialty Start Date End Date Brett Velásquez MD PCP - General Internal Medicine 04/21/16 01/25/22 Brett Velásquez MD PCP - General Internal Medicine 01/26/22 02/15/22 Wayne Jaimes [address] [place] [address] PCP - General Internal Medicine 02/16/22 Reilly Baker MD, PHD Surgeon Neurosurgery 01/20/22 Dafne Hilton MD [address] [place] [address] Specialist Cardiology 10/13/22 Desi Swenson NP [address] [place] [address] Cardiology 02/29/24 documented as of this encounter
--- OUTSIDE RECORDS SUMMARY | 2024-10-17 17:23 | XMS_ITS | Encounter Summary ---
Author Organization [facility] Address [address] [place] [address] Care Team Providers Care Oil Well Fishing Tool Operator Name Role Phone Brett Velásquez MD Primary Care Provider Reilly Stewart MD, PHD Unavailable UnaBrett Davis MD Primary Care Provider Wayne Dickson Primary Care Provider [phone] Dafne Hilton MD Unavailable [phone] Desi Swenson NP Unavailable [phone] Encounter Details Date Type Department Care Team Description 04/22/2020 Orders Only Medical Records [address] [place] [address] Vladislav Antunez DO Social History Tobacco Use [...] Date Type Specialty Care Team Description 04/29/2027 Operational Intelligence Officer Report Abstract, Provider documented as of this encounter Procedures Procedure Name Priority Date/Time Associated Diagnosis Comments OUTSIDE LAB Routine 04/21/2020 documented in this encounter Results * OUTSIDE LAB (04/21/2020) Vladislav Antunez DO LAB documented in this encounter Visit Diagnoses Not on filedocumented in this encounter Care Teams Oil Well Fishing Tool Operator Relationship Specialty Start Date End Date Brett Velásquez MD PCP - General Internal Medicine 04/21/16 01/25/22 Brett Velásquez MD PCP - General Internal Medicine 01/26/22 02/15/22 Wayne Jaimes [address] [place] [address] PCP - General Internal Medicine 02/16/22 Reilly Baker MD, PHD Surgeon Neurosurgery 01/20/22 Dafne Hilton MD [address] [place], [place] [address] Specialist Cardiology 10/13/22 Desi Swenson NP [address] [place], [place] [address] Cardiology 02/29/24 documented as of this encounter
--- OUTSIDE RECORDS SUMMARY | 2024-10-17 17:23 | XMS_ITS | Encounter Summary ---
Author Organization [facility] Address [address] [place] [address] Care Team Providers Care Natural Remedy Consultant Name Role Phone Reilly Baker MD, PHD Unavailable Unava ilable Wayne Jaimes Primary Care Provider [phone] Dafne Hilton MD Unavailable [phone] Desi Swenson NP Unavailable [phone] Encounter Details Date Type Department Care Team Description 12/17/2022 SCAN Medical Records [address] [place] [address] [facility] Social History Tobacco Use Types Packs/Day Years [...] Date Type Specialty Care Team Description 04/29/2027 Benefits Director Report Abstract, Provider documented as of this encounter Visit Diagnoses Not on filedocumented in this encounter Care Teams Natural Remedy Consultant Relationship Specialty Start Date End Date Wayne Jaimes [address] [place] [address] PCP - General Internal Medicine 02/16/22 Reilly Baker MD, PHD Surgeon Neurosurgery 01/20/22 Dafne Hilton MD [address] [place], [place] [address] Specialist Cardiology 10/13/22 Desi Swenson NP [address] [place], [place] [address] Cardiology 02/29/24 documented as of this encounter
--- OUTSIDE RECORDS SUMMARY | 2024-10-17 17:23 | XMS_ITS | Encounter Summary ---
Author Organization [facility] Address [address] [place] [address] Care Team Providers Care Strike Warfare/Missile Systems Officer Name Role Phone Reilly Baker MD, PHD Unavailable Unava Wayne Blackman Primary Care Provider [phone] Dafne Hilton MD Unavailable [phone] Desi Swenson NP Unavailable [phone] Encounter Details Date Type Department Care Team Description 08/19/2023 Telephone Gastroenterology - [place] [address] [facility] [address] [place] [address] Kevin Oliva PA-C 175 [facility] [address] [place] [address] Social History Tobacco Use Types Packs/Day Years [...] also ordered a barium swallow done at [facility] and states that the same finding [...] .patient will also need to have a French certified court/medical interpreter. Please advise documented in this encounter Plan of Treatment Upcoming Encounters Date Type Specialty Care Team Description 04/29/2027 Textile Screen Printer Report Abstract, Provider documented as of this encounter Visit Diagnoses Not on filedocumented in this encounter Care Teams Strike Warfare/Missile Systems Officer Relationship Specialty Start Date End Date Wayne Jaimes [address] [place] [address] PCP - General Internal Medicine 02/16/22 Reilly Baker MD, PHD Surgeon Neurosurgery 01/20/22 Dafne Hilton MD [address] [place] [address] Specialist Cardiology 10/13/22 Desi Swenson NP [address] [place] [address] Cardiology 02/29/24 documented as of this encounter
--- OUTSIDE RECORDS SUMMARY | 2024-10-17 17:23 | XMS_ITS | Encounter Summary ---
Author Organization [facility] Address [address] [place] [address] Care Team Providers Care Heavy Media Operator Name Role Phone Reilly Baker MD, PHD Unavailable Unava ilable Wayne Jaimes Primary Care Provider [phone] Dafne Hilton MD Unavailable [phone] Desi Swenson NP Unavailable [phone] Encounter Details Date Type Department Care Team Description 06/07/2023 Hospital Medical Records [address] [place] [address] Vladislav Antunez DO Social History Tobacco Use [...] Type Specialty Care Team Description 04/29/2027 Photographic Equipment Mechanic Report Abstract, Provider documented as of this encounter Visit Diagnoses Not on filedocumented in this encounter Care Teams Heavy Media Operator Relationship Specialty Start Date End Date Wayne Jaimes [address] [place] [address] PCP - General Internal Medicine 02/16/22 Reilly Baker MD, PHD Surgeon Neurosurgery 01/20/22 Dafne Hilton MD [address] [place] [address] Specialist Cardiology 10/13/22 Desi Swenson, ILDA [address] [place] [address] Cardiology 02/29/24 documented as of this encounter
--- OUTSIDE RECORDS SUMMARY | 2024-10-17 17:23 | XMS_ITS | Encounter Summary ---
Author Organization [facility] Address [address] [place] [address] Care Team Providers Care Park Aide Name Role Phone Reilly Baker MD, PHD Unavailable Unava ilable Wayne Jaimes Primary Care Provider [phone] Dafne Hilton MD Unavailable [phone] Desi Swenson NP Unavailable [phone] Encounter Details Date Type Department Care Team Description 02/15/2023 Beer Merchant Report Medical Records [address] [place] [address] Vladislav Antunez DO Social History Tobacco Use [...] Date Type Specialty Care Team Description 04/29/2027 Beer Merchant Report Abstract, Provider documented as of this encounter Visit Diagnoses Not on filedocumented in this encounter Care Teams Park Aide Relationship Specialty Start Date End Date Wayne Jaimes [address] [place], [place] [address] PCP - General Internal Medicine 02/16/22 Reilly Baker MD, PHD Surgeon Neurosurgery 01/20/22 Dafne Hilton MD [address] [place] [address] Specialist Cardiology 10/13/22 Desi Swenson NP [address] [place], [place] [address] Cardiology 02/29/24 documented as of this encounter
--- OUTSIDE RECORDS SUMMARY | 2024-10-17 17:23 | XMS_ITS | Encounter Summary ---
Author Organization [facility] Address [address] [place] [address] Care Team Providers Care Motor Vehicle Licence Examiner Name Role Phone Reilly Baker MD, PHD Unavailable Unava ilable Wayne Jaimes Primary Care Provider [phone] Dafne Hilton MD Unavailable [phone] Desi Swenson NP Unavailable [phone] Encounter Details Date Type Department Care Team Description 08/17/2023 Ict Project Manager Report Medical Records [address] Social History Tobacco Use Types Packs/Day [...] Date Type Specialty Care Team Description 04/29/2027 Ict Project Manager Report Abstract, Provider documented as of this encounter Visit Diagnoses Not on filedocumented in this encounter Care Teams Motor Vehicle Licence Examiner Relationship Specialty Start Date End Date Wayne Jaimes [address] [place], [place] [id number] PCP - General Internal Medicine 02/16/22 Reilly Baker MD, PHD Surgeon Neurosurgery 01/20/22 Dafne Hilton MD [address] [place] [address] Specialist Cardiology 10/13/22 Desi Swenson, ILDA [address] [place] [address] Cardiology 02/29/24 documented as of this encounter
--- OUTSIDE RECORDS SUMMARY | 2024-10-17 17:23 | XMS_ITS | Encounter Summary ---
Author Organization [facility] Address [address] [place] [address] Care Team Providers Care Senior Staff Accountant Name Role Phone Reilly Baker MD, PHD Unavailable Unava ilable Wayne Jaimes Primary Care Provider [phone] Dafne Hilton MD Unavailable [phone] Desi Swenson NP Unavailable [phone] Encounter Details Date Type Department Care Team Description 04/15/2023 Metal Furniture Repairer Report Medical Records [address] [place] [address] Vladislav Antunez DO Social History Tobacco Use [...] Date Type Specialty Care Team Description 04/29/2027 Metal Furniture Repairer Report Abstract, Provider documented as of this encounter Visit Diagnoses Not on filedocumented in this encounter Care Teams Senior Staff Accountant Relationship Specialty Start Date End Date Wayne Jaimes [address] [place] [address] PCP - General Internal Medicine 02/16/22 Reilly Bkaer MD, PHD Surgeon Neurosurgery 01/20/22 Dafne Hilton MD [address] [place] [address] Specialist Cardiology 10/13/22 Desi Swenson NP [address] [place], [place] [address] Cardiology 02/29/24 documented as of this encounter
--- OUTSIDE RECORDS SUMMARY | 2024-10-17 17:23 | XMS_ITS | Encounter Summary ---
Author Organization [facility] Address [address] [place] [address] Care Team Providers Care Teller Name Role Phone Reilly Baker MD, PHD Unavailable Unava ilWayne Osborne Primary Care Provider [phone] Dafne Hilton MD Unavailable [phone] Desi Swenson NP Unavailable [phone] Encounter Details Date Type Department Care Team Description 05/06/2023 Orders Only Medical Records [address] [place] [address] Ankita Mckeon NP Social History Tobacco Use [...] Date Type Specialty Care Team Description 04/29/2027 Snow Ranger Report Abstract, Provider documented as of this encounter Procedures Procedure Name Priority Date/Time Associated Diagnosis Comments OUTSIDE LAB Routine 04/05/2023 documented in this encounter Results * OUTSIDE LAB (04/05/2023) Ankita Mckeon NP LAB documented in this encounter Visit Diagnoses Not on filedocumented in this encounter Care Teams Teller Relationship Specialty Start Date End Date Wayne Jaimes [address] [place] [address] PCP - General Internal Medicine 02/16/22 Reilly Baker MD, PHD Surgeon Neurosurgery 01/20/22 Dafne Hilton MD [address] [place] [address] Specialist Cardiology 10/13/22 Desi Swenson NP [address] [place] [address] Cardiology 02/29/24 documented as of this encounter
--- OUTSIDE RECORDS SUMMARY | 2024-10-17 17:23 | XMS_ITS | Encounter Summary ---
Author Organization [facility] Address [address] [place] [address] Care Team Providers Care Boom Conveyor Operator Name Role Phone Brett Velásquez MD Primary Care Provider Reilly Stewart MD, PHD Unavailable Unava Brett Villegas MD Primary Care Provider Wayne Dickson Primary Care Provider [phone] Dafne Hilton MD Unavailable [phone] Desi Swenson NP Unavailable Encounter Details Date Type Department Care Team Description 04/22/2021 Metal Punch Press Operator Report Medical Records [address] [place] [address] Desi Li DPM Social History Tobacco Use [...] Type Specialty Care Team Description 04/29/2027 Metal Punch Press Operator Report Abstract, Provider documented as of this encounter Visit Diagnoses Not on filedocumented in this encounter Care Teams Boom Conveyor Operator Relationship Specialty Start Date End Date Brett Velásquez MD PCP - General Internal Medicine 04/21/16 01/25/22 Brett Velásquez MD PCP - General Internal Medicine 01/26/22 02/15/22 Wayne Jaimes [address] [place] [address] PCP - General Internal Medicine 02/16/22 Reilly Baker MD, PHD Surgeon Neurosurgery 01/20/22 Dafne Hilton MD [address] [place] [address] Specialist Cardiology 10/13/22 Desi Swenson NP [address] [place] [address] Cardiology 02/29/24 documented as of this encounter
--- OUTSIDE RECORDS SUMMARY | 2024-10-17 17:23 | XMS_ITS | Encounter Summary ---
Author Organization [facility] Address [address] [place] [address] Care Team Providers Care Osteology Teacher Name Role Phone Brett Velásquez MD Primary Care Provider Reilly Stewart MD, PHD Unavailable Unava Brett Villegas MD Primary Care Provider Wayne Dickson Primary Care Provider [phone] Dafne Hilton MD Unavailable [phone] Desi Swenson NP Unavailable [phone] Encounter Details Date Type Department Care Team Description 06/25/2020 Chef French Report Medical Records [address] [place] [address] Zuleika Baez PA-C Social History Tobacco Use [...] Date Type Specialty Care Team Description 04/29/2027 Chef French Report Abstract, Provider documented as of this encounter Visit Diagnoses Not on filedocumented in this encounter Care Teams Osteology Teacher Relationship Specialty Start Date End Date Brett Velásquez MD PCP - General Internal Medicine 04/21/16 01/25/22 Brett Velásquez MD PCP - General Internal Medicine 01/26/22 02/15/22 Wayne Jaimes [address] [place] [address] PCP - General Internal Medicine 02/16/22 Reilly Baker MD, PHD Surgeon Neurosurgery 01/20/22 Dafne Hilton MD [address] [place] [address] Specialist Cardiology 10/13/22 Desi Swenson NP [address] [place] [address] Cardiology 02/29/24 documented as of this encounter
--- OUTSIDE RECORDS SUMMARY | 2024-10-17 17:23 | XMS_ITS ---
Author Organization [facility] Address [address] [facility] [address] [place] [address] Care Team Providers Care Rental Sales Associate Name Role Phone Wayne Jaimes MD Primary Care Provider DESI Burks Unavailable [phone] Allergies No Known Allergies REASON FOR VISIT [...] Active Diclofenac Sodium 1 % as directed Annealer ally place 1 g onto the skin [...] N/A Encounters Encounter Location Date Provider Diagnosis [facility] [address] [address] 07/10/2024 DESI LI Onychomycosis B35.1 ; Calcium [...] Date Notes Efinaconazole 10 % 1 application Annealer ally Once a day for 90 days [...] Name:DESI LI, 01/10/2025 02:45:00 PM, [address] [facility] [address], [place], [address], Medications Administered Medication Instructions Date of Administration Dosage Notes dexAMETHasone Sod Phosphate PF 07/10/2024 0.5 m L Kenalog 07/10/2024 0.5 mL Progress Notes * Mckinley LEWISOB:1955 ([age] yo M)Acc No.[id number]:07/10/2024 Progress Note Patient:Laina SANDOVAL Provider:?Desi Li DPM :1955???Age:68 Y???Sex:Male Nael e:07/10/2024 Address:[address] [place], [place] [id number] Pcp:Wayne Jaimes MD Subjective: * Chief Complaints: [...] bilaterally, protective sensation intact 10/10 with 5.07 Adams Alisha bilaterally, vibratory sensation with tuning fork [...] RT J1100 INJ DEXAMETHASONE SODIM PHOSHATE 1 [id number] INJ TRIAMCINOLONE ACETONIDE 10 MG * Follow Up:?3 Months * Billing Information: * Visit Code:? 84326 Office Visit, Est Pt., Level 4. Modifiers: 25 * Procedure Codes:? DRAIN/INJECT, SMALL JOINT/BURSA. Modifiers: RT J1100 INJ DEXAMETHASONE SODIM PHOSHATE 1 MG. J3301 INJ TRIAMCINOLONE ACETONIDE 10 MG. * Sign off status: Completed true * Provider:?Desi Li DPM Date:? 07/10/2024 Generated for Tatiana lema/Nilsa/Saraitting on:?10/17/2024 05:23 PM EDT History and Physical Notes * [...] bilaterally, protective sensation intact 10/10 with 5.07 Adams Alisha bilaterally, vibratory sensation with tuning fork [...]
--- OUTSIDE RECORDS SUMMARY | 2024-10-17 17:23 | XMS_ITS | Encounter Summary ---
Author Organization [facility] Address [address] [place] [address] Care Team Providers Care Tire Changer Name Role Phone Reilly Baker MD, PHD Unavailable Unava ilable Wayne Jaimes Primary Care Provider [phone] Dafne Hilton MD Unavailable [phone] Desi Swenson NP Unavailable [phone] Encounter Details Date Type Department Care Team Description 09/30/2022 Renovator Machine Operator Report Medical Records [address] [place] [address] Social History Tobacco Use Types Packs/Day Years [...] Date Type Specialty Care Team Description 04/29/2027 Renovator Machine Operator Report Abstract, Provider documented as of this encounter Visit Diagnoses Not on filedocumented in this encounter Care Teams Tire Changer Relationship Specialty Start Date End Date Wayne Jaimes [address] [place] [address] PCP - General Internal Medicine 02/16/22 Reilly Baker MD, PHD Surgeon Neurosurgery 01/20/22 Dafne Hilton MD [address] [place] [address] Specialist Cardiology 10/13/22 Desi Swenson NP [address] [place] [address] Cardiology 02/29/24 documented as of this encounter
--- OUTSIDE RECORDS SUMMARY | 2024-10-17 17:23 | XMS_ITS | Encounter Summary ---
Author Organization [facility] Address [address] [place] [address] Care Team Providers Care Home Help Aide Name Role Phone Reilly Baker MD, PHD Unavailable Unava Wayne Blackman Primary Care Provider [phone] Dafne Hilton MD Unavailable [phone] Desi Swenson NP Unavailable [phone] Encounter Details Date Type Department Care Team Description 01/14/2023 Hospital Medical Records [address] [place] [address] [facility] Social History Tobacco Use Types Packs/Day Years [...] Date Type Specialty Care Team Description 04/29/2027 Billing Machine Operator Report Abstract, Provider documented as of this encounter Procedures Procedure Name Priority Date/Time Associated Diagnosis Comments OUTSIDE CT Routine 01/15/2023 OUTSIDE EKG Routine 01/14/2023 documented in this encounter Results * OUTSIDE CT (01/15/2023) Provider Abstract RADIOLOGY * OUTSIDE EKG (01/14/2023) Provider Abstract CARDIOLOGY documented in this encounter Visit Diagnoses Not on filedocumented in this encounter Care Teams Home Help Aide Relationship Specialty Start Date End Date Wayne Jaimes [address] [place] [address] PCP - General Internal Medicine 02/16/22 Reilly Baker MD, PHD Surgeon Neurosurgery 01/20/22 Dafne Hilton MD [address] [place] [address] Specialist Cardiology 10/13/22 Desi Swenson NP [address] [place] [address] Cardiology 02/29/24 documented as of this encounter
--- OUTSIDE RECORDS SUMMARY | 2024-10-17 17:24 | XMS_ITS | Encounter Summary ---
Author Organization [facility] Address [address] [place] [address] Care Team Providers Care Sock Liner Name Role Phone Brett Velásquez MD Primary Care Provider Reilly Stewart MD, PHD Unavailable Unava ilBertt Bailon MD Primary Care Provider Wayne Dickson Primary Care Provider [phone] Dafne Hilton MD Unavailable [phone] Desi Swenson NP Unavailable [phone] Encounter Details Date Type Department Care Team Description 07/21/2019 Release of Information Medical Records [address] [place] [address] Abstract, Provider Social History Tobacco Use Types [...] Type Specialty Care Team Description 04/29/2027 Ground Products Director Report Abstract, Provider documented as of this encounter Visit Diagnoses Not on filedocumented in this encounter Care Teams Sock Liner Relationship Specialty Start Date End Date Brett Velásquez MD PCP - General Internal Medicine 04/21/16 01/25/22 Brett Velásquez MD PCP - General Internal Medicine 01/26/22 02/15/22 Wayne Jaimes [address] [place] [address] PCP - General Internal Medicine 02/16/22 Reilly Baker MD, PHD Surgeon Neurosurgery 01/20/22 Dafne Hilton MD [address] [place] [address] Specialist Cardiology 10/13/22 Desi Swenson NP [address] [place] [address] Cardiology 02/29/24 documented as of this encounter
--- OUTSIDE RECORDS SUMMARY | 2024-10-17 17:24 | XMS_ITS | Encounter Summary ---
Author Organization [facility] Address [address] [place] [address] Care Team Providers Care Proofsheet Corrector Name Role Phone Brett Velásquez MD Primary Care Provider Keisha Luna MD Primary Care Provider [phone] Brett Velásquez MD Primary Care Provider Reilly Stewart MD, PHD Unavailable Unava ilable Brett Velásquez MD Primary Care Provider Wayne Dickson Primary Care Provider [phone] Dafne Hilton MD Unavailable [phone] Desi Swenson NP Unavailable [phone] Encounter Details Date Type Department Care Team Description 06/06/2014 Mechanical Test Engineer Report Medical Records [address] [place] [address] [facility] [place] Social History Tobacco Use Types Packs/Day Years [...] Date Type Specialty Care Team Description 04/29/2027 Mechanical Test Engineer Report Abstract, Provider documented as of this encounter Visit Diagnoses Not on filedocumented in this encounter Care Teams Proofsheet Corrector Relationship Specialty Start Date End Date Brett Velásquez MD PCP - General Internal Medicine 10/29/11 06/19/15 Keisha Chavez MD [address] [place] [address] PCP - General Internal Medicine 06/20/15 04/20/16 Brett Velásquez MD PCP - General Internal Medicine 04/21/16 01/25/22 Brett Velásquez MD PCP - General Internal Medicine 01/26/22 02/15/22 Wayne Jaimes [address] [place] [address] PCP - General Internal Medicine 02/16/22 Reilly Baker MD, PHD [address] [place] [address] Surgeon Neurosurgery 01/20/22 Dafne Hilton MD [address] [place] [address] Specialist Cardiology 10/13/22 Desi Swenson NP [address] [place] [address] Cardiology 02/29/24 documented as of this encounter
--- OUTSIDE RECORDS SUMMARY | 2024-10-17 17:24 | XMS_ITS | Encounter Summary ---
Author Organization [facility] Address [address] [place] [address] Care Team Providers Care Photostat Operator Helper Name Role Phone Brett Velásquez MD Primary Care Provider Reilly Stewart MD, PHD Unavailable UnaBrett Davis MD Primary Care Provider Wayne Dickson Primary Care Provider [phone] Dafne Hilton MD Unavailable [phone] Desi Swenson NP Unavailable [phone] Encounter Details Date Type Department Care Team Description 07/26/2019 Orders Only Medical Records [address] [place] [address] Lalit Salamanca MD [address] [facility] [address] [place] [address] Social History Tobacco Use Types Packs/Day Years [...] Type Specialty Care Team Description 04/29/2027 Media Marketing Specialist Report Abstract, Provider documented as of this encounter Procedures Procedure Name Priority Date/Time Associated Diagnosis Comments OUTSIDE PATHOLOGY Routine 07/20/2019 documented in this encounter Results * OUTSIDE PATHOLOGY (07/20/2019) Lalit Salamanca MD OUTSIDE LAB documented in this encounter Visit Diagnoses Not on filedocumented in this encounter Care Teams Photostat Operator Helper Relationship Specialty Start Date End Date Brett Velásquez MD PCP - General Internal Medicine 04/21/16 01/25/22 Brett Velásquez MD PCP - General Internal Medicine 01/26/22 02/15/22 Wayne Jaimes [address] [place] [address] PCP - General Internal Medicine 02/16/22 Reilly Baker MD, PHD Surgeon Neurosurgery 01/20/22 Dafne Hilton MD [address] [place] [address] Specialist Cardiology 10/13/22 Desi Swenson NP [address] [place] [address] Cardiology 02/29/24 documented as of this encounter
--- OUTSIDE RECORDS SUMMARY | 2024-10-17 17:24 | XMS_ITS | Clinical Summary ---
Author Organization [facility] Address [address] [place] [address] Care Team Providers Care Filling Operator Name Role Phone Brett Velásquez MD Primary Care Provider [phone] Allergies No known active allergies Medications Medication [...] age to complete this topic Care Teams Filling Operator Relationship Specialty Start Date End Date Brett Velásquez MD PCP - General Internal Medicine 10/20/17
--- OUTSIDE RECORDS SUMMARY | 2024-10-17 17:24 | XMS_ITS | Encounter Summary ---
Author Organization [facility] Address [address] [place] [address] Care Team Providers Care Feed Project Engineer Name Role Phone Brett Velásquez MD Primary Care Provider Keisha Luna MD Primary Care Provider [phone] Brett Velásquez MD Primary Care Provider Reilly Stewart MD, PHD Unavailable Unava ilable Brett Velásquez MD Primary Care Provider Wayne Dickson Primary Care Provider [phone] Dafne Hilton MD Unavailable [phone] Desi Swenson NP Unavailable [phone] Encounter Details Date Type Department Care Team Description 04/26/2014 Jewel Gauger Report Medical Records [address] [place] [address] Kareem Grier PA-C Social History Tobacco Use [...] Date Type Specialty Care Team Description 04/29/2027 Jewel Gauger Report Abstract, Provider documented as of this encounter Visit Diagnoses Not on filedocumented in this encounter Care Teams Feed Project Engineer Relationship Specialty Start Date End Date Brett Velásquez MD PCP - General Internal Medicine 10/29/11 06/19/15 Keisha Chavez MD [address] [place] [address] PCP - General Internal Medicine 06/20/15 04/20/16 Brett Velásquez MD PCP - General Internal Medicine 04/21/16 01/25/22 Brett Velásquez MD PCP - General Internal Medicine 01/26/22 02/15/22 Wayne Jaimes [address] [place] [address] PCP - General Internal Medicine 02/16/22 Reilly Baker MD, PHD [address] [place] [address] Surgeon Neurosurgery 01/20/22 Dafne Hilton MD [address] [place] [address] Specialist Cardiology 10/13/22 Dsei Swenson NP [address] [place] [address] Cardiology 02/29/24 documented as of this encounter
--- OUTSIDE RECORDS SUMMARY | 2024-10-17 17:24 | XMS_ITS | Encounter Summary ---
Author Organization [facility] Address [address] [place] [address] Care Team Providers Care Rn Home Care Name Role Phone Brett Velásquez MD Primary Care Provider Reilly Stewart MD, PHD Unavailable UnaBrett Davis MD Primary Care Provider Wayne Dickson Primary Care Provider [phone] Dafne Hilton MD Unavailable [phone] Desi Swenson NP Unavailable [phone] Reason for Visit * Reason Onset Date Comments Prior Authorization 06/17/2021 Encounter Details Date Type Department Care Team Description 06/17/2021 Telephone [facility] Medical [facility] [address] [place] [id number] Joo Meadows MD Prior Authorization Social [...] - 06/17/2021 8:42 AM EST Sendy from [facility] called again to check on status of prior auth for Euflexxa injections. I told her that Samara sent a request to [employer] and is waiting on response. Sendy asked that I let Samara know she called to check on it and to please let her know when we receive approval. She can be reached at [phone] ext [phone]. documented in this encounter Plan of Treatment Upcoming Encounters Date Type Specialty Care Team Description 04/29/2027 Crusher Supervisor Report Abstract, Provider documented as of this encounter Visit Diagnoses Not on filedocumented in this encounter Care Teams Rn Home Care Relationship Specialty Start Date End Date Brett Velásquez MD PCP - General Internal Medicine 04/21/16 01/25/22 Brett Velásquez MD PCP - General Internal Medicine 01/26/22 02/15/22 Wayne Jaimes [address] [place] [address] PCP - General Internal Medicine 02/16/22 Reilly Baker MD, PHD Surgeon Neurosurgery 01/20/22 Dafne Hilton MD [address] [place] [address] Specialist Cardiology 10/13/22 Desi Swenson NP [address] [place] [address] Cardiology 02/29/24 documented as of this encounter
--- OUTSIDE RECORDS SUMMARY | 2024-10-17 17:24 | XMS_ITS | Encounter Summary ---
Author Organization [facility] Address [address] [place] [address] Care Team Providers Care Medication Manager Name Role Phone Brett Velásquez MD Primary Care Provider Reilly Stewart MD, PHD Unavailable Unava Brtet Villegas MD Primary Care Provider Wayne Dickson Primary Care Provider Dafne Hilton MD Unavailable [phone] Desi Swenson NP Unavailable [phone] Encounter Details Date Type Department Care Team Description 07/20/2019 [facility] Medical Records [address] [place] [address] Lalit Salamanca MD [address] [place] [address] Social History Tobacco Use Types Packs/Day Years [...] Type Specialty Care Team Description 04/29/2027 Customer Facilities Supervisor Report Abstract, Provider documented as of this encounter Visit Diagnoses Not on filedocumented in this encounter Care Teams Medication Manager Relationship Specialty Start Date End Date Brett Velásquez MD PCP - General Internal Medicine 04/21/16 01/25/22 Bertt Velásquez MD PCP - General Internal Medicine 01/26/22 02/15/22 Wayne Jaimes [address] [place] [address] PCP - General Internal Medicine 02/16/22 Reilly Baker MD, PHD Surgeon Neurosurgery 01/20/22 Dafne Hliton MD [address] [place] [address] Specialist Cardiology 10/13/22 Desi Swenson NP [address] [place] [address] Cardiology 02/29/24 documented as of this encounter
--- OUTSIDE RECORDS SUMMARY | 2024-10-17 17:24 | XMS_ITS | Encounter Summary ---
Author Organization [facility] Address [address] [place] [address] Care Team Providers Care Wedding Planner Name Role Phone Brett Velásquez MD Primary Care Provider Reilly Stewart MD, PHD Unavailable UnaBrett Davis MD Primary Care Provider Wayne Dickson Primary Care Provider [phone] Dafne Hilton MD Unavailable Desi Swenson NP Unavailable [phone] Encounter Details Date Type Department Care Team Description 10/31/2021 [facility] [address] [phone] Ena Whipple, PA-C [address] [address] Social History Tobacco Use Types Packs/Day Years [...] Date Type Specialty Care Team Description 04/29/2027 Jewelry Jobber Report Abstract, Provider documented as of this encounter Visit Diagnoses Not on filedocumented in this encounter Care Teams Wedding Planner Relationship Specialty Start Date End Date Brett Velásquez MD PCP - General Internal Medicine 04/21/16 01/25/22 Brett Velásquez MD PCP - General Internal Medicine 01/26/22 02/15/22 Wayne Jaimes [address] [place] [address] PCP - General Internal Medicine 02/16/22 Reilly Baker MD, PHD Surgeon Neurosurgery 01/20/22 Dafne Hilton MD [address] [place] [address] Specialist Cardiology 10/13/22 Desi Swenson NP [address] [place] [address] Cardiology 02/29/24 documented as of this encounter
--- OUTSIDE RECORDS SUMMARY | 2024-10-17 17:24 | XMS_ITS | Encounter Summary ---
Author Organization [facility] Address [address] [place] [address] Care Team Providers Care Blanket Cutter Hand Name Role Phone Brett Velásquez MD Primary Care Provider Keisha Luna MD Primary Care Provider [phone] Brett Velásquez MD Primary Care Provider Reilly Stewart MD, PHD Unavailable Unava ilable Brett Velásquez MD Primary Care Provider Wayne Dickson Primary Care Provider [phone] Dafne Hilton MD Unavailable [phone] Desi Swenson NP Unavailable [phone] Encounter Details Date Type Department Care Team Description 06/18/2014 Adult Live In Caregiver Report Medical Records [address] [place] [address] Aleksandar Huggins MD Social History Tobacco Use [...] Date Type Specialty Care Team Description 04/29/2027 Adult Live In Caregiver Report Abstract, Provider documented as of this encounter Visit Diagnoses Not on filedocumented in this encounter Care Teams Blanket Cutter Hand Relationship Specialty Start Date End Date Brett Velásquez MD PCP - General Internal Medicine 10/29/11 06/19/15 Keisha Chavez MD [address] [place] [address] PCP - General Internal Medicine 06/20/15 04/20/16 Brett Velásquez MD PCP - General Internal Medicine 04/21/16 01/25/22 Brett Velásquez MD PCP - General Internal Medicine 01/26/22 02/15/22 Wayne Jaimes [address] [place] [address] PCP - General Internal Medicine 02/16/22 Reilly Baker MD, PHD [address] [place] [address] Surgeon Neurosurgery 01/20/22 Dafne Hilton MD [address] [place] [address] Specialist Cardiology 10/13/22 Desi Swenson NP [address] [place] [address] Cardiology 02/29/24 documented as of this encounter
--- OUTSIDE RECORDS SUMMARY | 2024-10-17 17:24 | XMS_ITS | Data Portability ---
Author Organization [place] [facility], Allergy Address [address] [address] Care Team Providers Care Irish Moss Operator Name Role Phone SUMMER LOWE Primary [...] speech therapy referra l 2024 025 [email or web address] [facility], [address] [place] [address] [place], [address], 09/19/2024 14:07:54 speech therapy referra l - Appt 05/26 @ 8:30am 2023 024 [facility], [facility], [address], 05/01/2024 16:23:00 Procedures None recorde d. Surgeries None recorde d. Imaging None recorde d. Medication Orders famotid ine 20 mg tablet 2024 025 [facility] [address] [place] [address], [id number], 08/10/2024 15:05:18 nystati n 100,000 unit/mL oral suspens ion 2023 024 [facility], [address] [place] [address], [id number], 05/10/2024 16:22:57 nystati n 100,000 unit/mL oral suspens ion 2023 024 [facility] [address] [place] [address], [id number], 04/21/2024 14:42:09 Patient TargetsNo targets recorded. Patient InstructionsNo instructions recorded. Reason for Referral Appt 05/26 @ 8:30am Referring Physician: Eneida Mccall Otolaryngology, Encounter Date: 04/21/2024 Referring Physician: Eneida Mccall Otolaryngology, Encounter Date: 08/10/2024 Problems Name Problem SNOMED Code Status Onset Date Resolution Date Notes Provider Name and Address Organization Details Recorded Time Sensorine ural hearing loss of bilateral ears 365537021 Active 2019 Sensorine ural hearing loss, bilateral ; Note: Date Diagnosed : 02/26/2020 3:32 PM (H90.3) Note: Date Diagnosed : 02/26/2020 3:32 PM (H90.3) Not Available [facility] 00:53:14 Stomatiti s 87648233 Active 2020 Oral thrush; Note: Date Diagnosed : 04/14/2021 11:22 AM (B37.0) Not Available [facility] 4 02:18:55 Candidias is of mouth 33844690 Active 2020 Oral thrush; Note: Date Diagnosed : 04/14/2021 11:22 AM (B37.0) Not Available [facility] 4 02:18:55 Gastroeso phageal reflux disease without esophagit is 808994164 Active 2015 Gastro-es ophageal reflux disease without esophagit is; Note: Date Diagnosed : 07/22/2015 2:46 PM (K21.9) Not Available [facility] 4 02:19:18 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, unilatera l; Note: Date Diagnosed : 12/12/2019 3:31 PM (J38.01) Not Available [facility] 4 02:18:19 Dysphagia 48000443 Active 2022 Dysphagia , unspecifi ed; Note: Date Diagnosed : 10/27/2021 12:05 PM (R13.10) ; Start Date : 2 Other dysphagia ; Note: Date Diagnosed : 04/07/2023 1:44 PM (R13.19) Not Available [facility] 4 02:19:19 Benign paroxysma l positiona l vertigo 362469063 Active 2019 Benign paroxysma l vertigo, left ear; Note: Date Diagnosed : 02/26/2020 3:32 PM (H81.12) Not Available [facility] 4 02:18:20 Cough 80128062 Active 2015 Cough, unspecifi ed; Note: Changed from R05 to R05.9 ( 2 2:10 PM) , Date Diagnosed : 09/04/2015 3:10 PM (R05) Not Available [facility] 4 02:19:08 Oropharyn geal dysphagia 94712479 Active 2023 Dysphagia , oropharyn geal phase; Note: Date Diagnosed : 09/16/2023 1:19 PM (R13.12) Not Available [facility] 02:19:08 Hemoptysi s 48510717 Active 2023 ENEIDA MCCALL MD 100 [facility],[place] [address], [facility] [place], [address] , [place] [facility] 14:33:59 Chronic sore throat 634329680 Active 2023 ENEIDA MCCALL MD [address] [place] [address],[place] [address], [facility] [place], [address] , [place] [facility] 14:34:04 Chronic hoarsenes s 78038884314 05 Active 2023 ENEIDA MCCALL MD [address] [place] [address],[place] [address], [facility] [place], [address] , [facility] - [facility] 14:42:59 Problem Notes None recorded. Procedures Surgical History Date Name Laterality Status Provider Name and Address Organization Details Recorded Time 08/10/19 25 FFL_RE completed ENEIDA MCCALL MD [address] [place] [address],[place] [address], [place], [address], [place] - [facility] 08/10/2024 15:02:15 04/21/20 24 FFL_RE completed ENEDIA MCCALL MD [address] [place] [address],[place] [address], [place], [address], [facility] - [facility] 04/21/2024 14:41:39 transurethral prostatectomy completed Bibi Neal [place] - [facility] 05/10/2024 14:05:40 subtotal thyroidectomy completed Bibi Neal [place] [facility] 05/10/2024 14:05:53 Imaging Results None recorded. Procedure Notes None recorded. Medical Equipment None Reported. Allergies No known drug allergies Medications Name Sig Start Date Stop Date Status Note LastModified by Organization Details LastModified Time losartan 50 mg tablet 05/06 completed Medicati on ID: [id number] B rand Name: losartan Send Method: E-Prescr [...] gram tablet 05/06 completed Medicati on ID: [id number] D uration Value: 7 Brand Name: valacycl [...] mucosal jelly 05/10 completed Medicati on ID: [id number] D uration Value: 14 Brand Name: lidocain [...] mg capsule 05/06 completed Medicati on ID: [id number] D uration Value: 90 Brand Name: tamsulos in Send Method: E-Prescr ibed Sub s Allowed: subs OK Speci al Instruct ion: TAKE ONE CAPSULE DAILY Me dication GenericN jay: tamsulos in Not Available Not Available Not Available pantopraz ole 40 mg tablet,de layed release 07/12 completed Medicati on ID: [id number] D uration Value: 30 Brand Name: pantopra [...] by mouth 07/12 completed Medicati on ID: [id number] D uration Value: 30 Prescri bed By [...] oral powder 05/10 completed Medicati on ID: [id number] D uration Value: 30 Brand Name: polyethy [...] layed release 12/11 completed Medicati on ID: [id number] P devonte d By Name: Trevon Gee [...] both nostrils 10/17 completed Medicati on ID: [id number] P rescribe d By Name: Trevon Gee rd, nd Name: Flonase Allergy Relief S end Method: E-Prescr ibed Sub s Allowed: subs OK Medic ationGen ericName : Flonase Allergy Relief Not Available Not Available Not Available Vitals Date Recorded Body height Body mass index (BMI) Body weight Provider Name and Address Organization Details Last Updated DateTime 04/21/2024 167.64 cm 27 kg/m2 82248.93 g Aakash Weaver [place] [facility] 04/21/2024 14:00:43 Date Recorded Body height Body weight Provider Name and Address Organization Details Last Updated DateTime 05/10/2024 167.64 cm 15519.93 g Bibi Neal [place] [facility] 05/10/2024 14:01:54 Date Recorded Body height Provider Name an d Address Organization Details Last Updated DateTime 08/10/2024 167.64 cm Aakash Weaver [facility] 08/10/2024 14:29:36 Social History None recorded. Functional Status None recorded. Mental Status None recorded. Family History Nothing Reported. Medical History Condition Response Sleep Disorder Y GERD/Reflux Y Hypertension Y Past Encounters Encounter ID Performer Location Encounter Start Date Encounter Closed Date Diagnosis/Indication Diagnosis SNOMED-CT Code Diagnosis ICD10 Code Diagnosis Note [id number] ENEIDA MCCALL MD [facility] [address] [address] 04/21/2024 13:44:06 04/21/2024 15:41:33 Hemoptysis 41828368 R04.2 resolved. laryngosco py negative today for bleeding Chronic sore throat 2754 86096 J31.2 likely due to thrush. Gastroesop hageal reflux disease without esophagitis 242136393 K21.9 continue esomeprazo le Candidiasis of mouth 797 94148 B37.0 FFL notable for montez in base of tongue. LIkely secondary to steroid inhalers. Will treat with nystatin. I asked him to call if not improved. No tumors on laryngosoc py. Chronic hoarseness 81520 68316 105 R49.0 will make voice therapy referral to [facility] [id number] VELASQUEZ GONZALEZ MD [facility] [address] [place] [address] 05/10/2024 13:45:35 05/10/2024 15:10:38 Candidiasis of mouth 25581991 B37.0 Chronic hoarseness 69326 40391 105 R49.0 Chronic sore throat 2754 49532 J31.2 Gastroesop hageal reflux disease without esophagitis 485768962 K21.9 [id number] ENEIDA MCCALL MD [facility] 100 [place] [address] 08/10/2024 13:56:29 08/10/2024 15:05:58 Chronic sore throat 796239496 J31.2 no evidence of thrush. he has breakthrou gh heartburn and I think the soreness is due to LPR. I will add dual therapy for reflux with famotidine in addition to his PPI. Gastroesop hageal reflux disease without esophagitis 022273886 K21.9 begin dual thearpy Candidiasis of mouth 797 28284 B37.0 resolved Chronic hoarseness 03974 76826 105 R49.0 will make voice therapy referral to [facility], gave reassuranc e no vocal cord lesions. Health Concerns Section Related Observation LastModified by Organization Detai ls LastModified Time None Recorded Concern Status LastModified by Organization Details LastModified Time None Recorded Advance Directives Directive None Recorded Payers Encounter Date Sequence Insurance Name Policy Number Policy Ayala Covered Member ID Ayala Member ID Guarantor Name 04/21/2024 1 [facility] Laina Lewis [id number] Laina Lewis 05/10/2024 1 [facility] Laina Lewis [id number] Laina Lewis 08/10/2024 1 [facility] Laina Lewis [id number] Laina Lewis Notes Date Note Type Note [...] 2020. ENEIDA MCCALL MD 100 [facility] [address], [place], [address], [place] [facility] 04/21/2024 14:43:45 05/10/2024 text/html 68-year-old male [...] MBS. VELASQUEZ QUINTERO MD 100 [facility] [address], [place], [address], [place] [facility] 05/11/2024 12:34:14 08/10/2024 text/html He has [...] FOL in September 2020. ENEIDA MCCALL MD [address] [place] [address], [place], [address], [place] [facility] 08/10/2024 15:05:10
--- OUTSIDE RECORDS SUMMARY | 2024-10-17 17:24 | XMS_ITS | Encounter Summary ---
Author Organization [facility] Address [address] [place] [address] Care Team Providers Care Outside Dealer Sales Representative Name Role Phone Brett Velásquez MD Primary Care Provider Reilly Stewart MD, PHD Unavailable UnaBrett Davis MD Primary Care Provider Wayne Dickson Primary Care Provider [phone] Dafne Hilton MD Unavailable [phone] Desi Swenson NP Unavailable [phone] Reason for Visit * Reason Onset Date Comments injection 02/02/2019 Encounter Details Date Type Department Care Team Description 02/02/2019 Telephone Physiatry - [address] [address] Sonny Abrams PA-C injection Social History Tobacco [...] Date Type Specialty Care Team Description 04/29/2027 Bakery Team Leader Report Abstract, Provider documented as of this encounter Visit Diagnoses Not on filedocumented in this encounter Care Teams Outside Dealer Sales Representative Relationship Specialty Start Date End Date Brett Velásquez MD PCP - General Internal Medicine 04/21/16 01/25/22 Brett Velásquez MD PCP - General Internal Medicine 01/26/22 02/15/22 Wayne Jaimes [address] [place] [address] PCP - General Internal Medicine 02/16/22 Reilly Baker MD, PHD Surgeon Neurosurgery 01/20/22 Dafne Hilton MD [address] [place] [address] Specialist Cardiology 10/13/22 Desi Swenson NP [address] [place] [address] Cardiology 02/29/24 documented as of this encounter
--- OUTSIDE RECORDS SUMMARY | 2024-10-17 17:24 | XMS_ITS | Encounter Summary ---
Author Organization [facility] Address [address] [place] [address] Care Team Providers Care Outpatient Coordinator Name Role Phone Brett Velásquez MD Primary Care Provider Keisha Luna MD Primary Care Provider [phone] Brett Velásquez MD Primary Care Provider Reilly Stewart MD, PHD Unavailable Unava ilable Brett Velásquez MD Primary Care Provider Wayne Dickson Primary Care Provider [phone] Dafne Hilton MD Unavailable [phone] Desi Swenson NP Unavailable [phone] Encounter Details Date Type Department Care Team Description 05/02/2014 Terrestrial Ecologist Report Medical Records [address] [place] [address] Vipin Cowart Social History Tobacco Use Types [...] Date Type Specialty Care Team Description 04/29/2027 Terrestrial Ecologist Report Abstract, Provider documented as of this encounter Visit Diagnoses Not on filedocumented in this encounter Care Teams Outpatient Coordinator Relationship Specialty Start Date End Date Brett Velásquez MD PCP - General Internal Medicine 10/29/11 06/19/15 Keisha Chavez MD [address] [place] [address] PCP - General Internal Medicine 06/20/15 04/20/16 Brett Velásquez MD PCP - General Internal Medicine 04/21/16 01/25/22 Brett Velásquez MD PCP - General Internal Medicine 01/26/22 02/15/22 Wayne Jaimes [address] [place], [place] [address] PCP - General Internal Medicine 02/16/22 Reilly Baker MD, PHD [address] [place] [address] Surgeon Neurosurgery 01/20/22 Dafne Hilton MD [address] [place] [address] Specialist Cardiology 10/13/22 Desi Swenson, ILDA [address] [place] [address] Cardiology 02/29/24 documented as of this encounter
--- OUTSIDE RECORDS SUMMARY | 2024-10-17 17:24 | XMS_ITS | Encounter Summary ---
Author Organization [facility] Address [address] [place] [address] Care Team Providers Care Ecmo Specialist Name Role Phone Brett Velásquez MD Primary Care Provider Reilly Stewart MD, PHD Unavailable Unava ilBrett Bailon MD Primary Care Provider Wayne Dickson Primary Care Provider [phone] Dafne Hilton MD Unavailable [phone] Desi Swenson NP Unavailable [phone] Encounter Details Date Type Department Care Team Description 12/11/2021 [facility] [address] [place] [address] Md Steve Social History Tobacco Use Types [...] Date Type Specialty Care Team Description 04/29/2027 Rotogravure Press Operator Report Abstract, Provider documented as of this encounter Visit Diagnoses Not on filedocumented in this encounter Care Teams Ecmo Specialist Relationship Specialty Start Date End Date Brett Velásquez MD PCP - General Internal Medicine 04/21/16 01/25/22 Brett Velásquez MD PCP - General Internal Medicine 01/26/22 02/15/22 Wayne Jaimes [address] [place] [address] PCP - General Internal Medicine 02/16/22 Reilly Baker MD, PHD Surgeon Neurosurgery 01/20/22 Dafne Hilton MD [address] [place] [address] Specialist Cardiology 10/13/22 Desi Swenson NP [address] [place] [address] Cardiology 02/29/24 documented as of this encounter
== END 2024-10-17 14:32 | disposition home or self-care (01) ==
LOC: HO.HVS 14:16
PROVIDERS: PCP Internal Medicine; Visit Provider Surgery Vascular Surgery
DX: I72.9 Aneurysm of unspecified site (principal)
CPT/HCPCS: 99204

== ENCOUNTER → 2024-10-17 14:15 | Outpatient (BNVA) | payer OTHER, SELFPAY | PROVIDERS: PCP Internal Medicine; Visit Provider Surgery Vascular Surgery | DX: I72.9 Aneurysm of unspecified site (principal) | CPT/HCPCS: 99202 ==

== ENCOUNTER 2024-10-24 13:30 | Outpatient (REF) | payer OTHER, SELFPAY ==
[2024-10-24 14:45] LABS: Thyroid Stimulating Hormone 1.67 uIU/mL (0.32-4.0)
--- OUTSIDE RECORDS SUMMARY | 2024-10-24 16:32 | XMS_ITS | Encounter Summary ---
Author Organization [facility] Address [address] [place] [address] Care Team Providers Care Clinical Investigator Name Role Phone Brett Velásquez MD Primary Care Provider Keisha Luna MD Primary Care Provider [phone] Brett Velásquez MD Primary Care Provider Reilly Stewart MD, PHD Unavailable Unava ilable Brett Velásquez MD Primary Care Provider Wayne Dickson Primary Care Provider [phone] Dafne Hilton MD Unavailable [phone] Desi Swenson NP Unavailable [phone] Encounter Details Date Type Department Care Team Description 05/17/2012 Publicity Writer Report Medical Records [address] [place] [address] Shaquille Chandra Social History Tobacco Use Types [...] Date Type Specialty Care Team Description 04/29/2027 Publicity Writer Report Abstract, Provider documented as of this encounter Visit Diagnoses Not on filedocumented in this encounter Care Teams Clinical Investigator Relationship Specialty Start Date End Date Brett Velásquez MD PCP - General Internal Medicine 10/29/11 06/19/15 Keisha Chavez MD [address] [place] [address] PCP - General Internal Medicine 06/20/15 04/20/16 Brett Velásquez MD PCP - General Internal Medicine 04/21/16 01/25/22 Brett Velásquez MD PCP - General Internal Medicine 01/26/22 02/15/22 Wayne Jaimes [address] [place] [address] PCP - General Internal Medicine 02/16/22 Reilly Baker MD, PHD [address] [place] [address] Surgeon Neurosurgery 01/20/22 Dafne Hilton MD [address] [place] [address] Specialist Cardiology 10/13/22 Desi Swenson NP [address] [place] [address] Cardiology 02/29/24 documented as of this encounter
--- OUTSIDE RECORDS SUMMARY | 2024-10-24 16:33 | XMS_ITS | Encounter Summary ---
Author Organization [facility] Address [address] [place] [address] Care Team Providers Care Youth Director Name Role Phone Brett Velásquez MD Primary Care Provider Reilly Stewart MD, PHD Unavailable Unava Brett Villegas MD Primary Care Provider Wayne Dickson Primary Care Provider [phone] Dafne Hilton MD Unavailable [phone] Desi Swenson NP Unavailable [phone] Encounter Details Date Type Department Care Team Description 01/23/2020 Orders Only Medical Records [address] [place] [address] Vladislav Antunez DO Social History Tobacco Use [...] Date Type Specialty Care Team Description 04/29/2027 Gluer Machine Operator Report Abstract, Provider documented as of this encounter Procedures Procedure Name Priority Date/Time Associated Diagnosis Comments OUTSIDE LAB Routine 01/22/2020 documented in this encounter Results * OUTSIDE LAB (01/22/2020) Vladislav Antunez DO LAB documented in this encounter Visit Diagnoses Not on filedocumented in this encounter Care Teams Youth Director Relationship Specialty Start Date End Date Brett Velásquez MD PCP - General Internal Medicine 04/21/16 01/25/22 Brett Velásquez MD PCP - General Internal Medicine 01/26/22 02/15/22 Wayne Jaimes [address] [place] [address] PCP - General Internal Medicine 02/16/22 Reilly Baker MD, PHD Surgeon Neurosurgery 01/20/22 Dafne Hilton MD [address] [place] [address] Specialist Cardiology 10/13/22 Desi Swenson NP [address] [place] [address] Cardiology 02/29/24 documented as of this encounter
--- OUTSIDE RECORDS SUMMARY | 2024-10-24 16:33 | XMS_ITS | Encounter Summary ---
Author Organization [facility] Address [address] [place] [address] Care Team Providers Care Gravel Wheeler Name Role Phone Reilly Baker MD, PHD Unavailable Unava Wayne Blackman Primary Care Provider [phone] Dafne Hilton MD Unavailable [phone] Desi Swenson NP Unavailable [phone] Encounter Details Date Type Department Care Team Description 04/07/2022 SCAN Medical Records [address] [place] [address] Abstract, Provider Social History Tobacco Use Types [...] Date Type Specialty Care Team Description 04/29/2027 Health Education Aide Report Abstract, Provider documented as of this encounter Procedures Procedure Name Priority Date/Time Associated Diagnosis Comments OUTSIDE LAB Routine 04/07/2022 documented in this encounter Results * OUTSIDE LAB (04/07/2022) Provider Default LAB documented in this encounter Visit Diagnoses Not on filedocumented in this encounter Care Teams Gravel Wheeler Relationship Specialty Start Date End Date Wayne Jaimes [address] [place] [address] PCP - General Internal Medicine 02/16/22 Reilly Baker MD, PHD Surgeon Neurosurgery 01/20/22 Dafne Hilton MD [address] [place] [address] Specialist Cardiology 10/13/22 Desi Swenson NP [address] [place] [address] Cardiology 02/29/24 documented as of this encounter
--- OUTSIDE RECORDS SUMMARY | 2024-10-24 16:33 | XMS_ITS | Encounter Summary ---
Author Organization [facility] Address [address] [place] [address] Care Team Providers Care Tie Sawyer Name Role Phone Brett Velásquez MD Primary Care Provider Reilly Stewart MD, PHD Unavailable Unava Brett Villegas MD Primary Care Provider Wayne Dickson Primary Care Provider [phone] Dafne Hilton MD Unavailable [phone] Desi Swenson NP Unavailable [phone] Encounter Details Date Type Department Care Team Description 11/18/2020 Public Records Officer Report Medical Records [address] [place] [address] Desi Li DPM Social History Tobacco Use [...] Type Specialty Care Team Description 04/29/2027 Public Records Officer Report Abstract, Provider documented as of this encounter Visit Diagnoses Not on filedocumented in this encounter Care Teams Tie Sawyer Relationship Specialty Start Date End Date Brett Velásquez MD PCP - General Internal Medicine 04/21/16 01/25/22 Brett Velásquez MD PCP - General Internal Medicine 01/26/22 02/15/22 Wayne Jaimes [address] [place] [address] PCP - General Internal Medicine 02/16/22 Reilly Baker MD, PHD Surgeon Neurosurgery 01/20/22 Dafne Hilton MD [address] [place] [address] Specialist Cardiology 10/13/22 Desi Swenson NP [address] [place] [address] Cardiology 02/29/24 documented as of this encounter
--- OUTSIDE RECORDS SUMMARY | 2024-10-24 16:33 | XMS_ITS | Encounter Summary ---
Author Organization [facility] Address [address] [place] [address] Care Team Providers Care Music Instructor Name Role Phone Brett Velásquez MD Primary Care Provider Reilly Stewart MD, PHD Unavailable Unava Brett Villegas MD Primary Care Provider Wayne Dickson Primary Care Provider [phone] Dafne Hilton MD Unavailable [phone] eDsi Swenson NP Unavailable [phone] Encounter Details Date Type Department Care Team Description 06/25/2020 Obstetrical Anesthesiologist Report Medical Records [address] [place] [address] Zuleika Baez PA-C Social History Tobacco Use [...] Date Type Specialty Care Team Description 04/29/2027 Obstetrical Anesthesiologist Report Abstract, Provider documented as of this encounter Visit Diagnoses Not on filedocumented in this encounter Care Teams Music Instructor Relationship Specialty Start Date End Date Brett Velásquez MD PCP - General Internal Medicine 04/21/16 01/25/22 Brett Velásquez MD PCP - General Internal Medicine 01/26/22 02/15/22 Wayne Jaimes [address] [place] [address] PCP - General Internal Medicine 02/16/22 Reilly Baker MD, PHD Surgeon Neurosurgery 01/20/22 Dafne Hilton MD [address] [place] [address] Specialist Cardiology 10/13/22 Desi Swenson NP [address] [place] [address] Cardiology 02/29/24 documented as of this encounter
--- OUTSIDE RECORDS SUMMARY | 2024-10-24 16:33 | XMS_ITS | Encounter Summary ---
Author Organization [facility] Address [address] [place] [address] Care Team Providers Care Fire Coordinator Name Role Phone Brett Velásquez MD Primary Care Provider Reilly Stewart MD, PHD Unavailable UnaBrett Davis MD Primary Care Provider Wayne Dickson Primary Care Provider [phone] Dafne Hilton MD Unavailable [phone] Desi Swenson NP Unavailable [phone] Encounter Details Date Type Department Care Team Description 04/23/2020 [facility] Medical Records [address] [place] [address] Vladislav Antunez DO Social History Tobacco Use [...] Date Type Specialty Care Team Description 04/29/2027 Faculty Research Assistant Report Abstract, Provider documented as of this encounter Visit Diagnoses Not on filedocumented in this encounter Care Teams Fire Coordinator Relationship Specialty Start Date End Date Brett Velásquez MD PCP - General Internal Medicine 04/21/16 01/25/22 Jacinta Velásquez-MD Kye PCP - General Internal Medicine 01/26/22 02/15/22 Wayne Jaimes [address] [place] [address] PCP - General Internal Medicine 02/16/22 Reilly Baker MD, PHD Surgeon Neurosurgery 01/20/22 Dafne Hilton MD [address] [place] [address] Specialist Cardiology 10/13/22 Desi Swenson NP [address] [place] [address] Cardiology 02/29/24 documented as of this encounter
--- OUTSIDE RECORDS SUMMARY | 2024-10-24 16:33 | XMS_ITS | Encounter Summary ---
Author Organization [facility] Address [address] [place] [address] Care Team Providers Care Supervisor Waterproofing Name Role Phone Brett Velásquez MD Primary Care Provider Keisha Luna MD Primary Care Provider [phone] Brett Velásquez MD Primary Care Provider Reilly Stewart MD, PHD Unavailable [facility] MD Primary Care Provider Wayne Dickson Primary Care Provider [phone] Dafne Hilton MD Unavailable [phone] Desi Swenson NP Unavailable [phone] Reason for Visit * Reason Onset Date Comments My Chart Appointment 02/04/2015 Encounter Details Date Type Department Care Team Description 02/04/2015 Telephone Adult Medicine [address] [address] Brett Velásquez MD My Chart Appointment Social [...] Date Type Specialty Care Team Description 04/29/2027 Sfdc Architect Report Abstract, Provider documented as of this encounter Visit Diagnoses Not on filedocumented in this encounter Care Teams Supervisor Waterproofing Relationship Specialty Start Date End Date Brett Velásquez MD PCP - General Internal Medicine 10/29/11 06/19/15 Keisha Chavez MD [address] [place] [address] PCP - General Internal Medicine 06/20/15 04/20/16 Brett Velásquez MD PCP - General Internal Medicine 04/21/16 01/25/22 Brett Velásquez MD PCP - General Internal Medicine 01/26/22 02/15/22 Wayne Jaimes [address] [place] [address] PCP - General Internal Medicine 02/16/22 Reilly Baker MD, PHD [address] [place] [address] Surgeon Neurosurgery 01/20/22 Dafne Hilton MD [address] [place] [address] Specialist Cardiology 10/13/22 Desi Swenson NP [address] [place] [address] Cardiology 02/29/24 documented as of this encounter
--- OUTSIDE RECORDS SUMMARY | 2024-10-24 16:33 | XMS_ITS | Encounter Summary ---
Author Organization [facility] Address [address] [place] [address] Care Team Providers Care Occupational Therapy Aide Name Role Phone Reilly Baker MD, PHD Unavailable Unava ilable Wayne Jaimes Primary Care Provider Dafne Hilton MD Unavailable [phone] Desi Swenson NP Unavailable [phone] Encounter Details Date Type Department Care Team Description 10/12/2022 Walk In Clinic Visit Medical Records [address] [place] [address] Clinic, [facility] Walk-In [address] [place] [address] Social History Tobacco Use Types Packs/Day Years [...] Type Specialty Care Team Description 04/29/2027 Resource Specialist Teacher Report Abstract, Provider documented as of this encounter Visit Diagnoses Not on filedocumented in this encounter Care Teams Occupational Therapy Aide Relationship Specialty Start Date End Date Wayne Jaimes [address] [place] [address] PCP - General Internal Medicine 02/16/22 Reilly Baker MD, PHD Surgeon Neurosurgery 01/20/22 Dafne Hilton MD [address] [place] [address] Specialist Cardiology 10/13/22 Desi Swenson NP [address] [place] [address] Cardiology 02/29/24 documented as of this encounter
--- OUTSIDE RECORDS SUMMARY | 2024-10-24 16:33 | XMS_ITS | Encounter Summary ---
Author Organization [facility] Address [address] [place] [address] Care Team Providers Care Vocal Performer Name Role Phone Reilly Baker MD, PHD Unavailable Unava ilWayne Osborne Primary Care Provider Dafne Hilton MD Unavailable [phone] Desi Swenson NP Unavailable [phone] Encounter Details Date Type Department Care Team Description 04/15/2022 SCAN [facility] 175 [facility] [address] [place] [address] Ena Whipple PA-C [address] [address] Social History Tobacco Use Types Packs/Day Years [...] Date Type Specialty Care Team Description 04/29/2027 Powder Compounder Report Abstract, Provider documented as of this encounter Visit Diagnoses Not on filedocumented in this encounter Care Teams Vocal Performer Relationship Specialty Start Date End Date Wayne Jaimes [address] [place] [address] PCP - General Internal Medicine 02/16/22 Reilly Baker MD, PHD Surgeon Neurosurgery 01/20/22 Dafne Hilton MD [address] [place] [address] Specialist Cardiology 10/13/22 Desi Swenson NP [address] [place], [place] [id number] Cardiology 02/29/24 documented as of this encounter
--- OUTSIDE RECORDS SUMMARY | 2024-10-24 16:33 | XMS_ITS | Clinical Summary ---
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 ([facility] V24) 12/17/2022 ST elevation (STEMI) myocard ial infarction ([facility] V24, [facility] V28) 12/11/2022 Benign prostatic hyperplasia without lower urinary tract [...] 3:30 PM EDT Office Visit Orthopedic Surgery [facility] [address] [facility] [address] [place] [phone] Wen Herrmann NP Primary osteoarthritis of right knee (Primary Dx); Primary osteoarthritis of left knee 08/08/2024 12:45 PM EST Anesthesia Event [facility] [address] [place] [phone] Bolivar Palmer MD 08/08/2024 11:38 AM EST - 08/08/2024 11:59 PM EST Hospital Encounter [facility] [address] [place] [phone] Vladislav Antunez DO Chang, Bolivar Barrow MD Radiculopathy, lumbar region Discharge Disposition: Home or Self Care 08/08/2024 6:21 AM EST - 08/08/2024 11:59 PM EST Hospital Encounter [facility] Xray [address] [place] [phone] Pain Discharge Disposition: Home or Self Care [...] fracture repair UPPER GASTROINTESTINAL ENDOSCOPY 01/13/2017 PROCEDURE: [place] UPPER GI ENDOSCOPY PERFORMED; COMMENT: normal UPPER GASTROINTESTINAL ENDOSCOPY 03/08/12 PROCEDURE: [place] UPPER GI ENDOSCOPY PERFORMED; COMMENT: normal OTHER SURGICAL HISTORY 2019 PROCEDURE: HISTORICAL SUBTOTAL THYROIDECTOMY; COMMENT: dr. hernandez 2019 TURP / TRANSURETHRAL INCISIO N / DRAINAGE PROSTATE 02/20/2020 PROCEDURE: HISTORICAL TURP; COMMENT: dr. bell COLONOSCOPY 02/14/2019 PROCEDURE: HISTORICAL COLONOSCOPY; COMMENT: Dr. Auguset - Trudy rectal adenomatous polyps. internal hemorrhoids. repeat 5 years. OTHER SURGICAL HISTORY 06/2020 PROCEDURE: HISTORICAL UNSPECIFIED SURGERY; COMMENT: urethral stricture repair- Dr. Bell UPPER GASTROINTESTINAL ENDOSCOPY 09/17/2020 PROCEDURE: [place] UPPER GI ENDOSCOPY PERFORMED; COMMENT: Normal findings. 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 (CMS/HCC V24) 12/17/2022 DX:Coronary artery disease involving nenana coronary artery of nenana heart with angina pectoris (HCC) Esophageal dysmotility DX:Esopha geal dysmotility Gastritis DX:Gastritis Dysphagia DX:Dysphagia Esophageal dysmotility DX:Esopha geal dysmotility Colon polyps DX:Colon polyps History of LA (myocardial infarction) DX:History of [place] (myocardial infarction) Hyperlipidemia 03/06/2024 DX:Hyperlipidemi a JENNIFER [...] 3:15 PM EDT Office Visit Nephrology - [place] [address] [place] [address] Eduard Mccormick MD [address] [place] [address] Health Maintenance Due Date Last Done Comments [...] patient's age to complete this topic Insurance [facility] MEDICARE [facility] MEDICAID Care Teams Cash On Delivery Clerk Relationship Specialty Start Date End Date Wayne Jaimes MD [address] [place] [address] PCP - General Internal Medicine 02/16/22
--- OUTSIDE RECORDS SUMMARY | 2024-10-24 16:33 | XMS_ITS | Encounter Summary ---
Author Organization [facility] Address [address] [place] [address] Care Team Providers Care Transfer Worker Name Role Phone Reilly Baker MD, PHD Unavailable Brett España MD Primary Care Provider Wayne Dickson Primary Care Provider [phone] Dafne Hilton MD Unavailable [phone] Desi Swenson NP Unavailable [phone] Encounter Details Date Type Department Care Team Description 01/26/2022 Release of Information Medical Records [address] [place] [address] Abstract, Provider Social History Tobacco Use Types [...] Date Type Specialty Care Team Description 04/29/2027 Solutions Operator Report Abstract, Provider documented as of this encounter Visit Diagnoses Not on filedocumented in this encounter Care Teams Transfer Worker Relationship Specialty Start Date End Date Brett Velásquez MD PCP - General Internal Medicine 01/26/22 02/15/22 Wayne Jaimes [address] [place] [address] PCP - General Internal Medicine 02/16/22 Reilly Baker MD, PHD Surgeon Neurosurgery 01/20/22 Dafne Hilton MD [address] [place] [address] Specialist Cardiology 10/13/22 Desi Swenson NP [address] [place] [address] Cardiology 02/29/24 documented as of this encounter
--- OUTSIDE RECORDS SUMMARY | 2024-10-24 16:33 | XMS_ITS | Encounter Summary ---
Author Organization [facility] Address [address] [place] [address] Care Team Providers Care Heater Furnace Name Role Phone Brett Velásquez MD Primary Care Provider Reilly Stewart MD, PHD Unavailable UnaBrett Davis MD Primary Care Provider Wayne Dickson Primary Care Provider [phone] Dafne Hilton MD Unavailable [phone] Desi Swenson NP Unavailable [phone] Encounter Details Date Type Department Care Team Description 12/22/2019 Telephone Physiatry - [address] [address] Sonny Abrams PA-C Social History Tobacco Use [...] Date Type Specialty Care Team Description 04/29/2027 Mate Fishing Vessel Report Abstract, Provider documented as of this encounter Visit Diagnoses Not on filedocumented in this encounter Care Teams Heater Furnace Relationship Specialty Start Date End Date Brett Velásquez MD PCP - General Internal Medicine 04/21/16 01/25/22 Brett Velásquez MD PCP - General Internal Medicine 01/26/22 02/15/22 Wayne Jaimes [address] [place] [address] PCP - General Internal Medicine 02/16/22 Reilly Baker MD, PHD Surgeon Neurosurgery 01/20/22 Dafne Hilton MD [address] [place] [address] Specialist Cardiology 10/13/22 Desi Swenson NP [address] [place] [address] Cardiology 02/29/24 documented as of this encounter
--- OUTSIDE RECORDS SUMMARY | 2024-10-24 16:33 | XMS_ITS | Clinical Summary ---
Author Organization [facility] Address [address] [facility] [address] [place] [address] Phone Care Team Providers Care Personal Caregiver Name Role Phone Shelbie Upton MD Primary Care Provider [phone] Allergies No known active allergies Medications albuterol [...] 04/08/2021, 04/09/2020, Additional history exists Pneumococcal Vaccine: 50+ Years Completed 04/09/2020, 04/28/2019 Pneumococcal Vaccine: Peds (0 to 5 Years) and At-Risk Patients (6 to 49 Years) Discontinued 04/09/2020, 04/28/2019 Hepatitis B Vaccine Aged Out No longe r eligible based on patient's age to complete this topic Insurance B ANDREI KHAN [id number] Medicaid [place] [facility] ([id number]) Andrew Diaz ([id number]) Medicaid [place] Care Teams Personal Caregiver Relationship Specialty Start Date End Date Shelbie Upton MD [address] [place] [address], [address] [place] [address] PCP - General Internal Medicine 02/04/24
--- OUTSIDE RECORDS SUMMARY | 2024-10-24 16:33 | XMS_ITS | Encounter Summary ---
Author Organization [facility] Address [address] [place] [address] Care Team Providers Care Water Team Leader Name Role Phone Reilly Baker MD, PHD Unavailable Unava Wayne Blackman Primary Care Provider [phone] Dafne Hilton MD Unavailable [phone] Desi Swenson NP Unavailable [phone] Reason for Visit * Reason Onset Date Comments Medication 09/14/2022 Changes, fyi to Dr Mccormick Encounter Details Date Type Department Care Team Description 09/14/2022 Telephone Nephrology - [place] [address] [place] [address] Eduard Mccormick MD [address] [place] [phone] Medication (Changes, fyi to Dr Mccormick) Social [...] some changes to his medications made by [facility]. States hewas told to stop taking losartan 25 mg and cholecalciferol (Vitamin D3 1000 units) and was prescribed asprin 81 mg daily, atorvastatin 80 mg, daily at bedtime, and ticagrelor 90 mg, twice a day. documented in this encounter Plan of Treatment Upcoming Encounters Date Type Specialty Care Team Description 04/29/2027 Truck Jumper Report Abstract, Provider documented as of this encounter Visit Diagnoses Not on filedocumented in this encounter Care Teams Water Team Leader Relationship Specialty Start Date End Date Wayne Jaimes [address] [place] [address] PCP - General Internal Medicine 02/16/22 Reilly Baker MD, PHD Surgeon Neurosurgery 01/20/22 Dafne Hilton MD [address] [place] [address] Specialist Cardiology 10/13/22 Desi Swenson NP [address] [place] [address] Cardiology 02/29/24 documented as of this encounter
--- OUTSIDE RECORDS SUMMARY | 2024-10-24 16:33 | XMS_ITS | Encounter Summary ---
Author Organization [facility] Address [address] [place] [address] Care Team Providers Care Disintegrator Operator Name Role Phone Reilly Baker MD, PHD Unavailable Unava ilWayne Osborne Primary Care Provider Dafne Hilton MD Unavailable [phone] Desi Swenson NP Unavailable [phone] Encounter Details Date Type Department Care Team Description 03/18/2022 Telephone [facility] 175 [facility] [address] [place] [phone] Ena Whipple PA-C [address] [address] Social History Tobacco Use Types Packs/Day Years [...] Type Specialty Care Team Description 04/29/2027 Mobile Home Mechanic Report Abstract, Provider documented as of this encounter Visit Diagnoses Not on filedocumented in this encounter Care Teams Disintegrator Operator Relationship Specialty Start Date End Date Wayne Jaimes [address] [place] [address] PCP - General Internal Medicine 02/16/22 Reilly Baker MD, PHD Surgeon Neurosurgery 01/20/22 Dafne Hilton MD [address] [place] [address] Specialist Cardiology 10/13/22 Desi Swenson NP [address] [place], [place] [address] Cardiology 02/29/24 documented as of this encounter
--- OUTSIDE RECORDS SUMMARY | 2024-10-24 16:33 | XMS_ITS | Encounter Summary ---
Author Organization [facility] Address [address] [place] [address] Care Team Providers Care Contracts Analyst Name Role Phone Brett Velásquez MD Primary Care Provider Reilly Stewart MD, PHD Unavailable Unava ilBrett Bailon MD Primary Care Provider Wayne Dickson Primary Care Provider [phone] Dafne Hilton MD Unavailable [phone] Desi Swenson NP Unavailable [phone] Encounter Details Date Type Department Care Team Description 04/29/2017 Returned Goods Inspector Report Medical Records [address] [place] [address] Abstract, Provider Social History Tobacco Use Types [...] Date Type Specialty Care Team Description 04/29/2027 Returned Goods Inspector Report Abstract, Provider documented as of this encounter Visit Diagnoses Not on filedocumented in this encounter Care Teams Contracts Analyst Relationship Specialty Start Date End Date Brett Velásquez MD PCP - General Internal Medicine 04/21/16 01/25/22 Brett Velásquez MD PCP - General Internal Medicine 01/26/22 02/15/22 Wayne Jaimes [address] [place] [address] [place] [address] PCP - General Internal Medicine 02/16/22 Reilly Baker MD, PHD Surgeon Neurosurgery 01/20/22 Dafne Hilton MD [address] [place] [address] Specialist Cardiology 10/13/22 Desi Swenson NP [address] [place] [address] Cardiology 02/29/24 documented as of this encounter
--- OUTSIDE RECORDS SUMMARY | 2024-10-24 16:33 | XMS_ITS | Encounter Summary ---
Author Organization [facility] Address [address] [place] [address] Care Team Providers Care Crusher Foreman Name Role Phone Reilly Baker MD, PHD Unavailable Unava ilable Wayne Jaimes Primary Care Provider [phone] Dafne Hilton MD Unavailable [phone] Desi Swenson NP Unavailable [phone] Encounter Details Date Type Department Care Team Description 09/30/2022 Sagger Preparer Report Medical Records [address] [place] [address] Social History Tobacco Use Types Packs/Day Years [...] Date Type Specialty Care Team Description 04/29/2027 Sagger Preparer Report Abstract, Provider documented as of this encounter Visit Diagnoses Not on filedocumented in this encounter Care Teams Crusher Foreman Relationship Specialty Start Date End Date Wayne Jaimes [address] [place] [address] PCP - General Internal Medicine 02/16/22 Reilly Baker MD, PHD Surgeon Neurosurgery 01/20/22 Dafne Hilton MD [address] [place] [address] Specialist Cardiology 10/13/22 Desi Swenson NP [address] [place] [address] Cardiology 02/29/24 documented as of this encounter
--- OUTSIDE RECORDS SUMMARY | 2024-10-24 16:33 | XMS_ITS | Encounter Summary ---
Author Organization [facility] Address [address] [place] [address] Care Team Providers Care Chief Nurse Executive Name Role Phone Reilly Baker MD, PHD Unavailable Unava ilable Wayne Jaimes Primary Care Provider [phone] Dafne Hilton MD Unavailable [phone] Desi Swenson NP Unavailable [phone] Encounter Details Date Type Department Care Team Description 04/19/2022 Billposter Report Medical Records [address] [place] [address] Ankita Mckeon NP Social History Tobacco Use [...] Date Type Specialty Care Team Description 04/29/2027 Billposter Report Abstract, Provider documented as of this encounter Visit Diagnoses Not on filedocumented in this encounter Care Teams Chief Nurse Executive Relationship Specialty Start Date End Date Wayne Jaimes [address] [place] [address] PCP - General Internal Medicine 02/16/22 Reilly Baker MD, PHD Surgeon Neurosurgery 01/20/22 Dafne Hilton MD [address] [place] [address] Specialist Cardiology 10/13/22 Desi Swenson NP [address] [place], [place] [address] Cardiology 02/29/24 documented as of this encounter
--- OUTSIDE RECORDS SUMMARY | 2024-10-24 16:33 | XMS_ITS | Encounter Summary ---
Author Organization [facility] Address [address] [place] [address] [address], [place] [address] Care Team Providers Care Home Decorator Name Role Phone Unavailable Primary Care Provider Unavailabl e Encounter Details Date Type Department Care Team (Latest Contact Info) Description 01/15/2021 Abstract [facility] CONVERSIONS Dental, Provider, DDS Social [...]
--- OUTSIDE RECORDS SUMMARY | 2024-10-24 16:33 | XMS_ITS ---
Author Organization [facility] Address [address] [facility] [place] [address] [place] [address] Care Team Providers Care Floor Sanding Machine Operator Name Role Phone Wayne Jaimes MD Primary Care Provider DESI Burks Unavailable [phone] Allergies No Known Allergies REASON FOR VISIT [...] Not-Taking Diclofenac Sodium 1 % as directed Crozer ally place 1 g onto the skin [...] W/U Status Risk Notes Problem Lumbar radiculopathy (291196372) Lumbar radiculopat hy, right (M54.16) Active confirmed Procedures Procedure Date Ordered Date Performed Result Body Sit e DRAIN/INJECT, SMALL JOINT/BURSA 04/10/2024 N/A Encounters Encounter Location Date Provider Diagnosis [facility] [address] [address] 04/10/2024 DESI LI Onychomycosis B35.1 ; Calcium [...] Date Notes Efinaconazole 10 % 1 application Crozer ally Once a day for 90 days [...] Name:DESI LI, 01/10/2025 02:45:00 PM, [address], [address], Medications Administered Medication Instructions Date of Administration Dosage Notes dexAMETHasone Sod Phosphate PF 04/10/2024 0.5 m L Kenalog 04/10/2024 0.5 mL Progress Notes * Mckinley LEWISOB:1955 ([age] yo M)Acc No.[id number]:04/10/2024 Progress Note Patient:?Laina LEWIS Provider:?Desi Li DPM :1955???Age:68 Y???Sex:Male Nael e:04/10/2024 Address:[address] [place], [place] [address] Pcp:Wayne Jaimes MD Subjective: * Chief Complaints: [...] bilaterally, protective sensation intact 10/10 with 5.07 [place] Alisha bilaterally, vibratory sensation with tuning fork [...] RT J1100 INJ DEXAMETHASONE SODIM PHOSHATE 1 [id number] INJ TRIAMCINOLONE ACETONIDE 10 MG * Follow Up:?3 Months * Billing Information: * Visit Code:? 18528 Office Visit, Est Pt., Level 4. Modifiers: 25 * Procedure Codes:? 97297 DRAIN/INJECT, SMALL JOINT/BURSA. Modifiers: RT J1100 INJ DEXAMETHASONE SODIM PHOSHATE 1 MG. J3301 INJ TRIAMCINOLONE ACETONIDE 10 MG. * Sign off status: Completed true * Provider:?Desi Li DPM Date:? 04/10/2024 Generated for Tatiana lema/Nilsa/Glo on:?10/24/2024 04:33 PM EDT History and Physical Notes * [...] bilaterally, protective sensation intact 10/10 with 5.07 [place] Alisha bilaterally, vibratory sensation with tuning fork [...]
--- OUTSIDE RECORDS SUMMARY | 2024-10-24 16:33 | XMS_ITS | Encounter Summary ---
Author Organization [facility] Address [address] [place] [address] Care Team Providers Care Pathology Transcriptionist Name Role Phone Reilly Baker MD, PHD Unavailable Unava Wayne Blackman Primary Care Provider [phone] Dafne Hilton MD Unavailable [phone] Desi Swenson NP Unavailable [phone] Reason for Visit * Reason Onset Date Comments medication problems 04/27/2022 Encounter Details Date Type Department Care Team Description 04/27/2022 Telephone Gastroenterology - [place] 175 [facility] [address] [place] [address] Kevin Oliva PA-C [address] [address] medication problems Social History Tobacco Use Types [...] Type Specialty Care Team Description 04/29/2027 Service Manager Report Abstract, Provider documented as of this encounter Visit Diagnoses Not on filedocumented in this encounter Care Teams Pathology Transcriptionist Relationship Specialty Start Date End Date Wayne Jaimes [address] [place] [address] PCP - General Internal Medicine 02/16/22 Reilly Baker MD, PHD Surgeon Neurosurgery 01/20/22 Dafne Hilton MD [address] [place] [address] Specialist Cardiology 10/13/22 Desi Swenson NP [address] [place] [address] Cardiology 02/29/24 documented as of this encounter
--- OUTSIDE RECORDS SUMMARY | 2024-10-24 16:33 | XMS_ITS | Encounter Summary ---
Author Organization [facility] Address [address] [place] [address] Care Team Providers Care Internal Control Specialist Name Role Phone Brett Velásquez MD Primary Care Provider Reilly Stewart MD, PHD Unavailable Unava ilBrett Bailon MD Primary Care Provider Wayne Dickson Primary Care Provider [phone] Dafne Hilton MD Unavailable [phone] Desi Swenson NP Unavailable [phone] Encounter Details Date Type Department Care Team Description 03/08/2018 Winding Lathe Operator Report Medical Records [address] [place] [address] Rehab., Tien Social History Tobacco Use Types [...] Date Type Specialty Care Team Description 04/29/2027 Winding Lathe Operator Report Abstract, Provider documented as of this encounter Visit Diagnoses Not on filedocumented in this encounter Care Teams Internal Control Specialist Relationship Specialty Start Date End Date Brett Velásquez MD PCP - General Internal Medicine 04/21/16 01/25/22 Brett Velásquez MD PCP - General Internal Medicine 01/26/22 02/15/22 Wayne Jaimes [address] [place] [address] PCP - General Internal Medicine 02/16/22 Reilly Baker MD, PHD Surgeon Neurosurgery 01/20/22 Dafne Hilton MD [address] [place] [address] Specialist Cardiology 10/13/22 Desi Swenson NP [address] [place] [address] Cardiology 02/29/24 documented as of this encounter
--- OUTSIDE RECORDS SUMMARY | 2024-10-24 16:33 | XMS_ITS | Encounter Summary ---
Author Organization [facility] Address [address] [place] [address] Care Team Providers Care Nursery Hand Name Role Phone Reilly Baker MD, PHD Unavailable Unava ilable Wayne Jaimes Primary Care Provider [phone] Dafne Hilton MD Unavailable [phone] Desi Swenson NP Unavailable [phone] Encounter Details Date Type Department Care Team Description 12/17/2022 SCAN Medical Records [address] [place] [address] [facility] Social History Tobacco Use Types [...] Type Specialty Care Team Description 04/29/2027 Metal Sprayer Machined Parts Report Abstract, Provider documented as of this encounter Visit Diagnoses Not on filedocumented in this encounter Care Teams Nursery Hand Relationship Specialty Start Date End Date Wayne Jaimes [address] [place] [address] PCP - General Internal Medicine 02/16/22 Reilly Baker MD, PHD Surgeon Neurosurgery 01/20/22 Dafne Hilton MD [address] [place], [place] [id number] Specialist Cardiology 10/13/22 Desi Swenson NP [address] [place], [place] [phone] Cardiology 02/29/24 documented as of this encounter
--- OUTSIDE RECORDS SUMMARY | 2024-10-24 16:33 | XMS_ITS | Encounter Summary ---
Author Organization [facility] Address [address] [place] [address] Care Team Providers Care Product Accountant Name Role Phone Brett Velásquez MD Primary Care Provider Reilly Stewart MD, PHD Unavailable Brett España MD Primary Care Provider Wayne Dickson Primary Care Provider [phone] Dafne Hilton MD Unavailable [phone] Desi Swenson NP Unavailable [phone] Encounter Details Date Type Department Care Team Description 01/24/2020 Pt. Non Urgent Medical Question Adult Medicine [address] [address] Olivia Foster PA-C [address] [place] [address] Social History Tobacco Use Types Packs/Day Years [...] Date Type Specialty Care Team Description 04/29/2027 Appliance Line Assembler Report Abstract, Provider documented as of this encounter Visit Diagnoses Not on filedocumented in this encounter Care Teams Product Accountant Relationship Specialty Start Date End Date Brett Velásquez MD PCP - General Internal Medicine 04/21/16 01/25/22 Brett Velásquez MD PCP - General Internal Medicine 01/26/22 02/15/22 Wayne Jaimes [address] [place] [address] PCP - General Internal Medicine 02/16/22 Reilly Baker MD, PHD Surgeon Neurosurgery 01/20/22 Dafne Hilton MD [address] [place] [address] Specialist Cardiology 10/13/22 Desi Swenson NP [address] [place] [address] Cardiology 02/29/24 documented as of this encounter
--- OUTSIDE RECORDS SUMMARY | 2024-10-24 16:33 | XMS_ITS | Encounter Summary ---
Author Organization [facility] Address [address] [facility] [place] [address] Care Team Providers Care Shell Mold Bonder Name Role Phone Keisha Chavez MD Primary Care Provider [phone] Brett Velásquez MD Primary Care Provider Reilly Stewart MD, PHD Unavailable Unaar ilBrett Bailon MD Primary Care Provider Wayne Dickson Primary Care Provider [phone] Dafne Hilton MD Unavailable [phone] Desi Swenson NP Unavailable [phone] Encounter Details Date Type Department Care Team Description 09/18/2015 Business Doc Medical Records [address] [place] [address] Abstract, Provider Social History Tobacco Use Types [...] Date Type Specialty Care Team Description 04/29/2027 Assembler Radio And Electrical Report Abstract, Provider documented as of this encounter Visit Diagnoses Not on filedocumented in this encounter Care Teams Shell Mold Bonder Relationship Specialty Start Date End Date Keisha Chavez MD [address] [place] [address] PCP - General Internal Medicine 06/20/15 04/20/16 Brett Velásquez MD [address] [place] [address] PCP - General Internal Medicine 04/21/16 01/25/22 Brett Velásquez MD [address] [place] [address] PCP - General Internal Medicine 01/26/22 02/15/22 Wayne Jaimes [address] [place] [address] PCP - General Internal Medicine 02/16/22 Reilly Baker MD, PHD [address] [place] [address] Surgeon Neurosurgery 01/20/22 Dafne Hilton MD [address] [place] [address] Specialist Cardiology 10/13/22 Desi Swenson NP [address] [place] [address] Cardiology 02/29/24 documented as of this encounter
--- OUTSIDE RECORDS SUMMARY | 2024-10-24 16:33 | XMS_ITS | Encounter Summary ---
Author Organization [employer] Address [address] [place] [address] [place], [place] [address] Care Team Providers Care Straight Line Edger Name Role Phone Unavailable Primary Care Provider Unavailabl e Encounter Details Date Type Department Care Team (Latest Contact Info) Description 01/23/2022 Abstract [facility] Dental, Provider, DDS Social History Tobacco [...]
--- OUTSIDE RECORDS SUMMARY | 2024-10-24 16:33 | XMS_ITS | Encounter Summary ---
Author Organization [facility] Address [address] [place] [address] Care Team Providers Care Advertising Director Name Role Phone Brett Velásquez MD Primary Care Provider Reilly Stewart MD, PHD Unavailable Unava ilBrett Bailon MD Primary Care Provider Wayne Dickson Primary Care Provider [phone] Dafne Hilton MD Unavailable [phone] Desi Swenson NP Unavailable [phone] Encounter Details Date Type Department Care Team Description 02/20/2020 [facility] Medical Records [address] [place] [address] Aleksandar Huggins MD Social History Tobacco Use [...] Date Type Specialty Care Team Description 04/29/2027 Reimbursement Coordinator Report Abstract, Provider documented as of this encounter Visit Diagnoses Not on filedocumented in this encounter Care Teams Advertising Director Relationship Specialty Start Date End Date Brett Velásquez MD PCP - General Internal Medicine 04/21/16 01/25/22 Brett Velásquez MD PCP - General Internal Medicine 01/26/22 02/15/22 Wayne Jaimes [address] [place] [address] PCP - General Internal Medicine 02/16/22 Reilly Baker MD, PHD Surgeon Neurosurgery 01/20/22 Dafne Hilton MD [address] [place] [address] Specialist Cardiology 10/13/22 Desi Swenson NP [address] [place] [address] Cardiology 02/29/24 documented as of this encounter
--- OUTSIDE RECORDS SUMMARY | 2024-10-24 16:33 | XMS_ITS | Encounter Summary ---
Author Organization [facility] Address [address] [place] [address] Care Team Providers Care Derrick Man Name Role Phone Keisha Chavez MD Primary Care Provider [phone] Brett Velásquez MD Primary Care Provider Reilly Stewart MD, PHD Unavailable Unava ilBrett Bailon MD Primary Care Provider Wayne Dickson Primary Care Provider [phone] Dafne Hilton MD Unavailable [phone] Desi Swenson NP Unavailable [phone] Encounter Details Date Type Department Care Team Description 12/25/2015 Orders Only Nephrology - [place] [address] [place] [address] Eduard Mccormick MD [address] [place] [address] Social History Tobacco Use Types Packs/Day Years [...] Type Specialty Care Team Description 04/29/2027 Post Doc Fellowship Report Abstract, Provider documented as of this encounter Results * (ABNORMAL) MICROALBUMIN/CREATININE, URINE (12/25/2015 9:24 AM EDT) Pathologist [facility] CREAT,RANDOM URINE 161 mg/dL 12/25/2015 11:13 AM T [facility] MICROALBUMIN, RANDOM 111.7(H) 0.0 - 29.0 mg/L 12/25/2015 11:13 AM [facility] MICROALB/CRE RATIO RANDOM 69.3(H) <30.0 mg/g 12/25/2015 11:13 AM T [facility] 12/25/2015 9:24 AM EDT 12/25/2015 9:25 AM EDT Eduard Mccormick MD LAB Performing Organization Address [facility] Co de Phone Number [address] * 25 HYDROXY INCLUDES FRACTIONS IF PERFORMED (12/25/2015 9:24 AM EDT) [facility] 25-HYDROXY VITAMIN D TOTAL 30 30 - 80 ng/ml 12/25/2015 3:35 PM T [facility] Comment: Vitamin D Reference Ranges ??Deficiency: ? <20 ng/mL ??Insufficiency: ?20-29 ng/mL ??Optimal: ?30-80 ng/mL ??High: ? >80 ng/mL 12/25/2015 9:24 AM EDT 12/25/2015 9:25 AM EDT Eduard Mccormick MD LAB Performing Organization Address [facility] Co de Phone Number [address] * CALCIUM,TOTAL (12/25/2015 9:24 AM EDT) [facility] CALCIUM 9.2 8.5 - 10.5 mg/dL 12/25/2015 10:52 AM T [facility] 12/25/2015 9:24 AM EDT 12/25/2015 9:25 AM EDT Eduard Mccormick MD LAB Performing Organization Address [facility] Co de Phone Number [address] * ELECTROLYTE PANEL (12/25/2015 9:24 AM EDT) Sodium 142 133 - 145 mEq/L 12/25/2015 10:52 AM EDT [facility] Potassium 4.5 3.5 - 5.5 mEq/L 12/25/2015 10:52 AM EDT [facility] Chloride 103 96 - 108 mEq/L 12/25/2015 10:52 AM EDT [facility] CO2 27.9 21.0 - 32.0 mEq/L 12/25/2015 10:52 AM EDT [facility] 12/25/2015 9:24 AM EDT 12/25/2015 9:25 AM EDT Eduard Mccormick MD LAB Performing Organization Address [facility] de Phone Number [address] * CREATININE, BLOOD ASSAY (12/25/2015 9:24 AM EDT) CREAT 1.0 0.7 - 1.5 mg/dL 12/25/2015 10:52 AM EDT [facility] GFR > 60 >60 12/25/2015 10:52 AM EDT [facility] Comment: If patient is -Eritrean, multiply result by 1.21 Chronic Kidney Disease: < 60 ml/min/1.73 square meters Kidney Failure: < 15 ml/min/1.73 square meters 12/25/2015 9:24 AM EDT 12/25/2015 9:25 AM EDT Eduard Mccormick MD LAB Performing Organization Address City/[facility] Co de Phone Number [address] * BLOOD UREA NITROGEN (BUN) (12/25/2015 9:24 AM EDT) BUN 17 5 - 25 mg/dL 12/25/2015 10:52 AM EDT [facility] 12/25/2015 9:24 AM EDT 12/25/2015 9:25 AM EDT Eduard Mccormick MD LAB [facility] [address] [place] [address] documented in this encounter Visit Diagnoses Not on filedocumented in this encounter Care Teams Derrick Man Relationship Specialty Start Date End Date Keisha Chavez MD [address] [place] [address] PCP - General Internal Medicine 06/20/15 04/20/16 Brett Velásquez MD [address] [place], [place] [address] PCP - General Internal Medicine 04/21/16 01/25/22 Brett Velásquez MD [address] [place] [address] PCP - General Internal Medicine 01/26/22 02/15/22 Wayne Jaimes [address] [place] [address] PCP - General Internal Medicine 02/16/22 Reilly Baker MD, PHD [address] [place] [address] Surgeon Neurosurgery 01/20/22 Dafne Hilton MD [address] [place] [address] Specialist Cardiology 10/13/22 Desi Swenson NP [address] [place] [address] Cardiology 02/29/24 documented as of this encounter
--- OUTSIDE RECORDS SUMMARY | 2024-10-24 16:33 | XMS_ITS | Encounter Summary ---
Author Organization [facility] Address [address] [place] [address] Care Team Providers Care Event Host Name Role Phone Brett Velásquez MD Primary Care Provider Reilly Stewart MD, PHD Unavailable Unava Brett Villegas MD Primary Care Provider Wayne Dickson Primary Care Provider [phone] Dafne Hilton MD Unavailable [phone] Desi Swenson NP Unavailable [phone] Encounter Details Date Type Department Care Team Description 12/15/2017 Home Lighting Adviser Report Medical Records [address] [place] [address] Eduard Mccormick MD [address] [place] [address] Social History Tobacco Use Types Packs/Day Years [...] Date Type Specialty Care Team Description 04/29/2027 Home Lighting Adviser Report Abstract, Provider documented as of this encounter Visit Diagnoses Not on filedocumented in this encounter Care Teams Event Host Relationship Specialty Start Date End Date Brett Velásquez MD PCP - General Internal Medicine 04/21/16 01/25/22 Brett Velásquez MD PCP - General Internal Medicine 01/26/22 02/15/22 Wayne Jaimes [address] [place] [address] PCP - General Internal Medicine 02/16/22 Reilly Baker MD, PHD Surgeon Neurosurgery 01/20/22 Dafne Hilton MD [address] [place] [address] Specialist Cardiology 10/13/22 Desi Swenson NP [address] [place], [place] [id number] Cardiology 02/29/24 documented as of this encounter
--- OUTSIDE RECORDS SUMMARY | 2024-10-24 16:33 | XMS_ITS ---
Author Organization [facility] Address [address] [facility] [address] [place] [address] Care Team Providers Care Loading Unit Tool Setter Name Role Phone Wayne Jaimes MD Primary Care Provider DESI Burks Unavailable [phone] Allergies No Known Allergies REASON FOR VISIT [...] Active Diclofenac Sodium 1 % as directed Art Professor ally place 1 g onto the skin [...] 10/11/2024 Encounters Encounter Location Date Provider Diagnosis [facility] [address] [facility] [address] [place] [address] 10/11/2024 DESI LI Onychomycosis B35.1 ; Calcium [...] days 10/11/2024 Efinaconazole 10 % 1 application Art Professor ally Once a day for 90 days [...] Name:DESI LI, 01/10/2025 02:45:00 PM, [address] [address], [place], [address], Progress Notes * Mckinley LEWISOB:1955 ([age] yo M)Acc No.[id number]:10/11/2024 Progress Note Patient:?Laina LEWIS Provider:?Desi Li DPM :1955???Age:68 Y???Sex:Male Nael e:10/11/2024 Address:[address] [place], [place] [address] [id number] Pcp:Wayne Jaimes MD Subjective: * Chief Complaints: [...] bilaterally, protective sensation intact 10/10 with 5.07 [place] Alisha bilaterally, vibratory sensation with tuning fork [...] Months * Billing Information: * Visit Code:? 11203 Office Visit, Est Pt., Level 4. * Procedure Codes:? * Sign off status: Completed true * Provider:?Desi Li DPM Date:? 10/11/2024 Generated for Tatiana lmea/Nilsa/Kamillesmitting on:?10/24/2024 04:33 PM EDT History and Physical [...] bilaterally, protective sensation intact 10/10 with 5.07 [place] Alisha bilaterally, vibratory sensation with tuning fork [...]
--- OUTSIDE RECORDS SUMMARY | 2024-10-24 16:33 | XMS_ITS | Encounter Summary ---
Author Organization [facility] Address [address] [place] [address] Care Team Providers Care Battery Charger Conveyor Line Name Role Phone Brett Velásquez MD Primary Care Provider Keisha Luna MD Primary Care Provider [phone] Brett Velásquez MD Primary Care Provider Reilly Stewart MD, PHD Unavailable Unava ilable Brett Velásquez MD Primary Care Provider Wayne Dickson Primary Care Provider [phone] Dafne Hilton MD Unavailable [phone] Desi Swenson NP Unavailable [phone] Encounter Details Date Type Department Care Team Description 10/11/2012 Release of Information Medical Records [address] [place] [address] Abstract, Provider Social History Tobacco Use Types [...] Date Type Specialty Care Team Description 04/29/2027 Pallet Stone Inserter Report Abstract, Provider documented as of this encounter Visit Diagnoses Not on filedocumented in this encounter Care Teams Battery Charger Conveyor Line Relationship Specialty Start Date End Date Brett Velásquez MD PCP - General Internal Medicine 10/29/11 06/19/15 Keisha Chavez MD [address] [place] [address] PCP - General Internal Medicine 06/20/15 04/20/16 Brett Velásquez MD PCP - General Internal Medicine 04/21/16 01/25/22 Brett Velásquez MD PCP - General Internal Medicine 01/26/22 02/15/22 Wayne Jaimes [address] [place], [place] [address] PCP - General Internal Medicine 02/16/22 Reilly Baker MD, PHD [address] [place] [address] Surgeon Neurosurgery 01/20/22 Dafne Hilton MD [address] [place] [address] Specialist Cardiology 10/13/22 Desi Swenson NP [address] [place] [address] Cardiology 02/29/24 documented as of this encounter
--- OUTSIDE RECORDS SUMMARY | 2024-10-24 16:33 | XMS_ITS | Encounter Summary ---
Author Organization [facility] Address [address] [place] [address] Care Team Providers Care Psychiatric Technician Assistant Name Role Phone Brett Velásquez MD Primary Care Provider Reilly Stewart MD, PHD Unavailable Unava ilBrett Bailon MD Primary Care Provider Wayne Dickson Primary Care Provider [phone] Dafne Hilton MD Unavailable [phone] Desi Swenson NP Unavailable [phone] Encounter Details Date Type Department Care Team Description 12/15/2019 Motion Picture Cameraman Report Medical Records [address] [place] [address] Vipin Cherry Social History Tobacco Use Types [...] Date Type Specialty Care Team Description 04/29/2027 Motion Picture Cameraman Report Abstract, Provider documented as of this encounter Visit Diagnoses Not on filedocumented in this encounter Care Teams Psychiatric Technician Assistant Relationship Specialty Start Date End Date Brett Velásquez MD PCP - General Internal Medicine 04/21/16 01/25/22 Brett Velásquez MD PCP - General Internal Medicine 01/26/22 02/15/22 Wayne Jaimes [address] [place] [address] PCP - General Internal Medicine 02/16/22 Reilly Baker MD, PHD Surgeon Neurosurgery 01/20/22 Dafne Hilton MD [address] [place] [address] Specialist Cardiology 10/13/22 Desi Swenson NP [address] [place] [address] Cardiology 02/29/24 documented as of this encounter
--- OUTSIDE RECORDS SUMMARY | 2024-10-24 16:33 | XMS_ITS | Encounter Summary ---
Author Organization [facility] Address [address] [place] [address] Care Team Providers Care Division Service Manager Name Role Phone Reilly Baker MD, PHD Unavailable Brett España MD Primary Care Provider MindivaWayne Conrad Primary Care Provider [phone] Dafne Hilton MD Unavailable [phone] Desi Swenson NP Unavailable [phone] Encounter Details Date Type Department Care Team Description 02/06/[address] [facility] Medical [facility] Neurosurgery [place] [address] [place] [phone] Reilly Baker MD, PHD Social History Tobacco [...] Date Type Specialty Care Team Description 04/29/2027 Family Caseworker Report Abstract, Provider documented as of this encounter Visit Diagnoses Not on filedocumented in this encounter Care Teams Division Service Manager Relationship Specialty Start Date End Date Brett Velásquez MD PCP - General Internal Medicine 01/26/22 02/15/22 Wayne Jaimes [address] [place] [address] PCP - General Internal Medicine 02/16/22 Reilly Baker MD, PHD Surgeon Neurosurgery 01/20/22 Dafne Hilton MD [address] [place] [address] Specialist Cardiology 10/13/22 Desi Swenson NP [address] [place], [place] [phone] Cardiology 02/29/24 documented as of this encounter
--- OUTSIDE RECORDS SUMMARY | 2024-10-24 16:33 | XMS_ITS | Encounter Summary ---
Author Organization [facility] Address [address] [place] [address] Care Team Providers Care Mergers And Acquisitions Associate Name Role Phone Brett Velásquez MD Primary Care Provider Reilly Stewart MD, PHD Unavailable Unava ilBrett Bailon MD Primary Care Provider Wayne Dickson Primary Care Provider [phone] Dafne Hilton MD Unavailable [phone] Desi Swenson NP Unavailable [phone] Encounter Details Date Type Department Care Team Description 01/24/2020 Machinist Apprentice Wood Report Medical Records [address] [place] [address] Aleksandar Huggins MD Social History Tobacco Use [...] Date Type Specialty Care Team Description 04/29/2027 Machinist Apprentice Wood Report Abstract, Provider documented as of this encounter Visit Diagnoses Not on filedocumented in this encounter Care Teams Mergers And Acquisitions Associate Relationship Specialty Start Date End Date Brett Velásquez MD PCP - General Internal Medicine 04/21/16 01/25/22 Brett Velásquez MD PCP - General Internal Medicine 01/26/22 02/15/22 Wayne Jaimes [address] [place] [address] PCP - General Internal Medicine 02/16/22 Reilly Baker MD, PHD Surgeon Neurosurgery 01/20/22 Dafne Hilton MD [address] [place] [address] Specialist Cardiology 10/13/22 Desi Swenson NP [address] [place] [address] Cardiology 02/29/24 documented as of this encounter
--- OUTSIDE RECORDS SUMMARY | 2024-10-24 16:33 | XMS_ITS | Encounter Summary ---
Author Organization [facility] Address [address] [place] [address] Care Team Providers Care Brass Bobbin Winder Name Role Phone Brett Velásquez MD Primary Care Provider Reilly Stewart MD, PHD Unavailable Unava Brett Villegas MD Primary Care Provider Wayne Dickson Primary Care Provider [phone] Dafne Hilton MD Unavailable Desi Swenson NP Unavailable [phone] Encounter Details Date Type Department Care Team Description 04/12/2020 Automotive Fuel Injection Servicer Report Medical Records [address] [place] [address] Ankita Mckeon NP Social History Tobacco Use [...] Date Type Specialty Care Team Description 04/29/2027 Automotive Fuel Injection Servicer Report Abstract, Provider documented as of this encounter Visit Diagnoses Not on filedocumented in this encounter Care Teams Brass Bobbin Winder Relationship Specialty Start Date End Date Brett Velásquez MD PCP - General Internal Medicine 04/21/16 01/25/22 Brett Velásquez MD PCP - General Internal Medicine 01/26/22 02/15/22 Wayne Jaimes [address] [place] [address] PCP - General Internal Medicine 02/16/22 Reilly Baker MD, PHD Surgeon Neurosurgery 01/20/22 Dafne Hilton MD [address] [place] [address] Specialist Cardiology 10/13/22 Desi Swenson NP [address] [place] [address] Cardiology 02/29/24 documented as of this encounter
--- OUTSIDE RECORDS SUMMARY | 2024-10-24 16:33 | XMS_ITS | Encounter Summary ---
Author Organization [facility] Address [address] [facility] [place] [address] Care Team Providers Care Linker Up Name Role Phone Keisha Chavez MD Primary Care Provider [phone] Brett Velásquez MD Primary Care Provider Reilly Stewart MD, PHD Unavailable Unaca ilBrett Bailon MD Primary Care Provider Wayne Dickson Primary Care Provider [phone] Dafne Hilton MD Unavailable [phone] Desi Swenson NP Unavailable [phone] Encounter Details Date Type Department Care Team Description 11/05/2015 Release of Information Medical Records [address] [place] [address] Abstract, Provider Social History Tobacco Use Types [...] Date Type Specialty Care Team Description 04/29/2027 Sanitation Truck Driver Report Abstract, Provider documented as of this encounter Visit Diagnoses Not on filedocumented in this encounter Care Teams Linker Up Relationship Specialty Start Date End Date Keisha Chavez MD [address] [place] [address] PCP - General Internal Medicine 06/20/15 04/20/16 Brett Velásquez MD [address] [place] [address] PCP - General Internal Medicine 04/21/16 01/25/22 Brett Velásquez MD [address] [place] [address] PCP - General Internal Medicine 01/26/22 02/15/22 Wayne Jaimes [address] [place] [address] PCP - General Internal Medicine 02/16/22 Reilly Baker MD, PHD [address] [place] [address] Surgeon Neurosurgery 01/20/22 Dafne Hilton MD [address] [place] [address] Specialist Cardiology 10/13/22 Desi Swenson NP [address] [place] [address] Cardiology 02/29/24 documented as of this encounter
--- OUTSIDE RECORDS SUMMARY | 2024-10-24 16:33 | XMS_ITS | Encounter Summary ---
Author Organization [facility] Address [address] [place] [address] Care Team Providers Care Medical Laboratory Technician Name Role Phone Brett Velásquez MD Primary Care Provider Reilly Stewart MD, PHD Unavailable Unava Brett Villegas MD Primary Care Provider Wayne Dickson Primary Care Provider [phone] Dafne Hilton MD Unavailable [phone] Desi Swenson NP Unavailable [phone] Encounter Details Date Type Department Care Team Description 02/26/2020 Retort Loader Report Medical Records [address] [place] [address] Ankita Mckeon NP Social History Tobacco Use [...] Date Type Specialty Care Team Description 04/29/2027 Retort Loader Report Abstract, Provider documented as of this encounter Visit Diagnoses Not on filedocumented in this encounter Care Teams Medical Laboratory Technician Relationship Specialty Start Date End Date Brett Velásquez MD PCP - General Internal Medicine 04/21/16 01/25/22 Brett Velásquez MD PCP - General Internal Medicine 01/26/22 02/15/22 Wayne Jaimes [address] [place] [address] PCP - General Internal Medicine 02/16/22 Reilly Baker MD, PHD Surgeon Neurosurgery 01/20/22 Dafne Hilton MD [address] [place] [address] Specialist Cardiology 10/13/22 Desi Swenson NP [address] [place] [address] Cardiology 02/29/24 documented as of this encounter
--- OUTSIDE RECORDS SUMMARY | 2024-10-24 16:33 | XMS_ITS | Clinical Summary ---
Author Organization [facility] Address [address] [place] [address] 7 [place] [address] Care Team Providers Care Conservation Assistant Name Role Phone Unavailable Primary Care Provider [...]
--- OUTSIDE RECORDS SUMMARY | 2024-10-24 16:33 | XMS_ITS | Encounter Summary ---
Author Organization [facility] Address [address] [place] [address] Care Team Providers Care Telecommunications Cable Jointer Name Role Phone Brett Velásquez MD Primary Care Provider Reilly Stewart MD, PHD Unavailable UnaBrett Davis MD Primary Care Provider Wayne Dickson Primary Care Provider [phone] Dafne Hilton MD Unavailable [phone] Desi Swenson NP Unavailable [phone] Encounter Details Date Type Department Care Team Description 04/22/2020 Orders Only Medical Records [address] [place] [address] Vladislav Antunez DO Social History Tobacco Use [...] Date Type Specialty Care Team Description 04/29/2027 Spring Setter Report Abstract, Provider documented as of this encounter Procedures Procedure Name Priority Date/Time Associated Diagnosis Comments OUTSIDE LAB Routine 04/21/2020 documented in this encounter Results * OUTSIDE LAB (04/21/2020) Vladislav Antunez DO LAB documented in this encounter Visit Diagnoses Not on filedocumented in this encounter Care Teams Telecommunications Cable Jointer Relationship Specialty Start Date End Date Brett Velásquez MD PCP - General Internal Medicine 04/21/16 01/25/22 Brett Velásquez MD PCP - General Internal Medicine 01/26/22 02/15/22 Wayne Jaimes [address] [place] [address] PCP - General Internal Medicine 02/16/22 Reilly Baker MD, PHD Surgeon Neurosurgery 01/20/22 Dafne Hilton MD [address] [place], [place] [id number] Specialist Cardiology 10/13/22 Desi Swenson NP [address] [place], [place] [id number] Cardiology 02/29/24 documented as of this encounter
--- OUTSIDE RECORDS SUMMARY | 2024-10-24 16:33 | XMS_ITS | Encounter Summary ---
Author Organization [facility] Address [address] [place] [address] Care Team Providers Care Webbing Inspector Name Role Phone Brett Velásquez MD Primary Care Provider Reilly Stewart MD, PHD Unavailable Unaid Brett Villegas MD Primary Care Provider Wayne Dickson Primary Care Provider [phone] Dafne Hilton MD Unavailable [phone] Desi Swenson NP Unavailable [phone] Encounter Details Date Type Department Care Team Description 12/08/2017 Sales Agent Financial Report Service Report Medical Records [address] [place] [address] Mahsa Oreilly PA Social History Tobacco Use [...] Date Type Specialty Care Team Description 04/29/2027 Sales Agent Financial Report Service Report Abstract, Provider documented as of this encounter Visit Diagnoses Not on filedocumented in this encounter Care Teams Webbing Inspector Relationship Specialty Start Date End Date Brett Velásquez MD PCP - General Internal Medicine 04/21/16 01/25/22 Brett Velásquez MD PCP - General Internal Medicine 01/26/22 02/15/22 Wayne Jaimes [address] [place] [address] PCP - General Internal Medicine 02/16/22 Reilly Baker MD, PHD Surgeon Neurosurgery 01/20/22 Dafne Hilton MD [address] [place] [address] Specialist Cardiology 10/13/22 Desi Swenson NP [address] [place] [address] Cardiology 02/29/24 documented as of this encounter
--- OUTSIDE RECORDS SUMMARY | 2024-10-24 16:33 | XMS_ITS | Encounter Summary ---
Author Organization [facility] Address [address] [place] [address] Care Team Providers Care Outreach Assistant Name Role Phone Brett Velásquez MD Primary Care Provider Reilly Stewart MD, PHD Unavailable Unava ilBrett Bailon MD Primary Care Provider Wayne Dickson Primary Care Provider [phone] Dafne Hilton MD Unavailable [phone] Desi Swenson NP Unavailable [phone] Encounter Details Date Type Department Care Team Description 12/14/2017 Network Relay Tester Report Medical Records [address] [place] [address] Rehab., Tien Social History Tobacco Use Types [...] Type Specialty Care Team Description 04/29/2027 Network Relay Tester Report Abstract, Provider documented as of this encounter Visit Diagnoses Not on filedocumented in this encounter Care Teams Outreach Assistant Relationship Specialty Start Date End Date Brett Velásquez MD PCP - General Internal Medicine 04/21/16 01/25/22 Brett Velásquez MD PCP - General Internal Medicine 01/26/22 02/15/22 Wayne Jaimes [address] [place] [address] PCP - General Internal Medicine 02/16/22 Reilly Baker MD, PHD Surgeon Neurosurgery 01/20/22 Dafne Hilton MD [address] [place] [address] Specialist Cardiology 10/13/22 Desi Swenson NP [address] [place] [address] Cardiology 02/29/24 documented as of this encounter
--- OUTSIDE RECORDS SUMMARY | 2024-10-24 16:33 | XMS_ITS | Encounter Summary ---
Author Organization [facility] Address [address] [place] [address] Care Team Providers Care Nozzle Operator Name Role Phone Brett Velásquez MD Primary Care Provider Keisah Luna MD Primary Care Provider [phone] Brett Velásquez MD Primary Care Provider Reilly Stewart MD, PHD Unavailable Unava ilBrett Bailon MD Primary Care Provider Wayne Dickson Primary Care Provider [phone] Dafne Hilton MD Unavailable [phone] Desi Swenson NP Unavailable [phone] Encounter Details Date Type Department Care Team Description 02/06/2015 Wood Heel Attacher Report Medical Records [address] [place] [address] [facility] [address] [place] [address] Social History Tobacco Use Types Packs/Day Years [...] Date Type Specialty Care Team Description 04/29/2027 Wood Heel Attacher Report Abstract, Provider documented as of this encounter Visit Diagnoses Not on filedocumented in this encounter Care Teams Nozzle Operator Relationship Specialty Start Date End Date Brett Velásquez MD PCP - General Internal Medicine 10/29/11 06/19/15 Keisha Chavez MD [address] [place], [place] [id number] PCP - General Internal Medicine 06/20/15 04/20/16 Brett Velásquez MD PCP - General Internal Medicine 04/21/16 01/25/22 Brett Velásquez MD PCP - General Internal Medicine 01/26/22 02/15/22 Wayne Jaimes [address] [place] [address] PCP - General Internal Medicine 02/16/22 Reilly Baker MD, PHD [address] [place] [address] Surgeon Neurosurgery 01/20/22 Dafne Hilton MD [address] [place] [address] Specialist Cardiology 10/13/22 Desi Swenson NP [address] [place] [address] Cardiology 02/29/24 documented as of this encounter
--- OUTSIDE RECORDS SUMMARY | 2024-10-24 16:33 | XMS_ITS | Encounter Summary ---
Author Organization [facility] Address [address] [place] [address] Care Team Providers Care Air Conditioning Unit Tester Name Role Phone Reilly Baker MD, PHD Unavailable Unava ilWayne Osborne Primary Care Provider [phone] Dafne Hilton MD Unavailable [phone] Desi Swenson NP Unavailable [phone] Encounter Details Date Type Department Care Team Description 02/23/2022 Orders Only Medical Records [address] [place] [address] Yuliana Auguste MD [address] [place] [address] Social History Tobacco Use Types Packs/Day Years [...] as possible. You may also use an rmlb-hly-nbrgccm acid reducing agent such as Pepcid, Tums, omeprazole etc. when necessary.I would like to personally thank you for allowing us to take care of you. Please don't hesitate to call us for any questions or concerns. Regards, Vivek Auguste MD Board Certified Gastroenterology and Internal Medicine Transplant Hepatology [facility] documented in this encounter Plan of Treatment Upcoming Encounters Date Type Specialty Care Team Description 04/29/2027 Network Technology Instructor Report Abstract, Provider documented as of this encounter Procedures Procedure Name Priority Date/Time Associated Diagnosis Comments OUTSIDE PATHOLOGY Routine 02/18/2022 documented in this encounter Results * OUTSIDE PATHOLOGY (02/18/2022) Yuliana Auguste MD OUTSIDE LAB documented in this encounter Visit Diagnoses Not on filedocumented in this encounter Care Teams Air Conditioning Unit Tester Relationship Specialty Start Date End Date Jose M Jaimesgil Dowell [address] [place] [address] PCP - General Internal Medicine 02/16/22 Reilly Baker MD, PHD Surgeon Neurosurgery 01/20/22 Dafne Hilton MD [address] [place] [address] Specialist Cardiology 10/13/22 Desi Swenson NP [address] [place] [address] Cardiology 02/29/24 documented as of this encounter
--- OUTSIDE RECORDS SUMMARY | 2024-10-24 16:34 | XMS_ITS | Encounter Summary ---
Author Organization [facility] Address [address] [place] [address] Care Team Providers Care On Site Construction Superintendent Name Role Phone Reilly Baker MD, PHD Unavailable Unava Wayne Blackman Primary Care Provider Dafne Hilton MD Unavailable Desi Swenson NP Unavailable [phone] Encounter Details Date Type Department Care Team Description 01/14/2023 Hospital Medical Records [address] [place] [address] [facility] Social History Tobacco Use Types Packs/Day [...] Date Type Specialty Care Team Description 04/29/2027 Pipe Layer Helper Report Abstract, Provider documented as of this encounter Procedures Procedure Name Priority Date/Time Associated Diagnosis Comments OUTSIDE CT Routine 01/15/2023 OUTSIDE EKG Routine 01/14/2023 documented in this encounter Results * OUTSIDE CT (01/15/2023) Provider Abstract RADIOLOGY * OUTSIDE EKG (01/14/2023) Provider Abstract CARDIOLOGY documented in this encounter Visit Diagnoses Not on filedocumented in this encounter Care Teams On Site Construction Superintendent Relationship Specialty Start Date End Date Wayne Jaimes [address] [place] [address] PCP - General Internal Medicine 02/16/22 Reilly Bakre MD, PHD Surgeon Neurosurgery 01/20/22 Dafne Hilton MD [address] [place] [address] Specialist Cardiology 10/13/22 Desi Swenson NP [address] [place] [address] Cardiology 02/29/24 documented as of this encounter
--- OUTSIDE RECORDS SUMMARY | 2024-10-24 16:34 | XMS_ITS | Encounter Summary ---
Author Organization [facility] Address [address] [place] [address] Care Team Providers Care Fire Operations Forester Name Role Phone Brett Velásquez MD Primary Care Provider Reilly Stewart MD, PHD Unavailable Unava ilBrett Bailon MD Primary Care Provider Wayne Dickson Primary Care Provider [phone] Dafne Hilton MD Unavailable [phone] Desi Swenson NP Unavailable [phone] Encounter Details Date Type Department Care Team Description 05/03/2018 Release of Information Medical Records [address] [place] [address] Abstract, Provider Social History Tobacco Use Types [...] Type Specialty Care Team Description 04/29/2027 Marketing Copywriter Report Abstract, Provider documented as of this encounter Visit Diagnoses Not on filedocumented in this encounter Care Teams Fire Operations Forester Relationship Specialty Start Date End Date Brett Velásquez MD PCP - General Internal Medicine 04/21/16 01/25/22 Brett Velásquez MD PCP - General Internal Medicine 01/26/22 02/15/22 Wayne Jaimes [address] [place] [address] PCP - General Internal Medicine 02/16/22 Reilly Baker MD, PHD Surgeon Neurosurgery 01/20/22 Dafne Hilton MD [address] [place] [address] Specialist Cardiology 10/13/22 Desi Swenson NP [address] [place] [address] Cardiology 02/29/24 documented as of this encounter
--- OUTSIDE RECORDS SUMMARY | 2024-10-24 16:34 | XMS_ITS | Encounter Summary ---
Author Organization [facility] Address [address] [place] [address] Care Team Providers Care Facility Maintenance Technician Name Role Phone Brett Velásquez MD Primary Care Provider Reilly Stewart MD, PHD Unavailable Unava Brett Villegas MD Primary Care Provider Wayne Dickson Primary Care Provider [phone] Dafne Hilton MD Unavailable [phone] Desi Swenson NP Unavailable [phone] Encounter Details Date Type Department Care Team Description 05/29/2020 Rental Agent Report Medical Records [address] [place] [address] Aleksandar Huggins MD Social History Tobacco Use [...] Type Specialty Care Team Description 04/29/2027 Rental Agent Report Abstract, Provider documented as of this encounter Visit Diagnoses Not on filedocumented in this encounter Care Teams Facility Maintenance Technician Relationship Specialty Start Date End Date Brett Velásquez MD PCP - General Internal Medicine 04/21/16 01/25/22 Brett Velásquez MD PCP - General Internal Medicine 01/26/22 02/15/22 Wayne Jaimes [address] [place] [address] PCP - General Internal Medicine 02/16/22 Reilly Baker MD, PHD Surgeon Neurosurgery 01/20/22 Dafne Hilton MD [address] [place] [address] Specialist Cardiology 10/13/22 Desi Swenson NP [address] [place], [place] [address] Cardiology 02/29/24 documented as of this encounter
--- OUTSIDE RECORDS SUMMARY | 2024-10-24 16:34 | XMS_ITS | Encounter Summary ---
Author Organization [facility] Address [address] [place] [address] Care Team Providers Care Shop Assistant Name Role Phone Reilly Baker MD, PHD Unavailable Unava Wayne Blackman Primary Care Provider [phone] Dafne Hilton MD Unavailable [phone] Desi Swenson NP Unavailable [phone] Reason for Visit * Reason Onset Date Comments Provider Call Back 08/17/2023 Encounter Details Date Type Department Care Team Description 08/17/2023 Telephone Gastroenterology - [place] [facility] [address] [place] [phone] Kevin Oliva PA-C [facility] [address] [place] [address] Provider Call Back Social History Tobacco Use [...] Date Type Specialty Care Team Description 04/29/2027 Chrome Plater Report Abstract, Provider documented as of this encounter Visit Diagnoses Not on filedocumented in this encounter Care Teams Shop Assistant Relationship Specialty Start Date End Date Wayne Jaimes [address] [place] [address] PCP - General Internal Medicine 02/16/22 Reilly Baker MD, PHD Surgeon Neurosurgery 01/20/22 Dafne Hilton MD [address] [place] [address] Specialist Cardiology 10/13/22 Desi Swenson NP [address] [place] [address] Cardiology 02/29/24 documented as of this encounter
--- OUTSIDE RECORDS SUMMARY | 2024-10-24 16:34 | XMS_ITS | Encounter Summary ---
Author Organization [facility] Address [address] [place] [address] Care Team Providers Care Senior Animal Trainer Name Role Phone Brett Velásquez MD Primary Care Provider Reilly Stewart MD, PHD Unavailable Unava ilBrett Bailon MD Primary Care Provider Wayne Dickson Primary Care Provider [phone] Dafne Hilton MD Unavailable [phone] Desi Swenson NP Unavailable [phone] Encounter Details Date Type Department Care Team Description 08/10/2018 Real Estate Legal Secretary Report Medical Records [address] [place] [address] Aleksandar Huggins MD Social History Tobacco Use [...] Date Type Specialty Care Team Description 04/29/2027 Real Estate Legal Secretary Report Abstract, Provider documented as of this encounter Visit Diagnoses Not on filedocumented in this encounter Care Teams Senior Animal Trainer Relationship Specialty Start Date End Date Brett Velásquez MD PCP - General Internal Medicine 04/21/16 01/25/22 Brett Velásquez MD PCP - General Internal Medicine 01/26/22 02/15/22 Wayne Jaimes [address] [place] [address] PCP - General Internal Medicine 02/16/22 Reilly Baker MD, PHD Surgeon Neurosurgery 01/20/22 Dafne Hilton MD [address] [place] [address] Specialist Cardiology 10/13/22 Desi Swenson NP [address] [place] [address] Cardiology 02/29/24 documented as of this encounter
--- OUTSIDE RECORDS SUMMARY | 2024-10-24 16:34 | XMS_ITS | Encounter Summary ---
Author Organization [facility] Address [address] [place] [address] Care Team Providers Care Cooking Show Host Name Role Phone Brett Velásquez MD Primary Care Provider Reilly Stewart MD, PHD Unavailable UnaBrett Davis MD Primary Care Provider Wayne Dickson Primary Care Provider [phone] Dafne Hilton MD Unavailable [phone] Desi Swenson NP Unavailable [phone] Encounter Details Date Type Department Care Team Description 02/11/2021 Telephone [facility] [address] [phone] Hermes Alegre MD [address] [address] Social History Tobacco Use Types [...] Debbie Nguyen - 02/11/2021 12:52 PM EDT [facility] CALLED WITH A DELIVERY DATE OF 02/12/21 FOR SUCHUL'S EUFLEXXA documented in this encounter Plan of Treatment Upcoming Encounters Date Type Specialty Care Team Description 04/29/2027 Desk Officer Report Abstract, Provider documented as of this encounter Visit Diagnoses Not on filedocumented in this encounter Care Teams Cooking Show Host Relationship Specialty Start Date End Date Brett Velásquez MD PCP - General Internal Medicine 04/21/16 01/25/22 Brett Velásquez MD PCP - General Internal Medicine 01/26/22 02/15/22 Wayne Jaimes [address] [place] [address] PCP - General Internal Medicine 02/16/22 Reilly Baker MD, PHD Surgeon Neurosurgery 01/20/22 Dafne Hilton MD [address] [place] [address] Specialist Cardiology 10/13/22 Desi Swenson NP [address] [place] [address] Cardiology 02/29/24 documented as of this encounter
--- OUTSIDE RECORDS SUMMARY | 2024-10-24 16:34 | XMS_ITS | Encounter Summary ---
Author Organization [facility] Address [address] [place] [address] Care Team Providers Care Electronic Publisher Name Role Phone Brett Velásquez MD Primary Care Provider Reilly Stewart MD, PHD Unavailable Unava Brett Villegas MD Primary Care Provider Wayne Dickson Primary Care Provider [phone] Dafne Hilton MD Unavailable [phone] Desi Swenson NP Unavailable Encounter Details Date Type Department Care Team Description 04/22/2021 Business Representative Report Medical Records [address] [place] [address] Desi Li DPM Social History Tobacco Use [...] Type Specialty Care Team Description 04/29/2027 Business Representative Report Abstract, Provider documented as of this encounter Visit Diagnoses Not on filedocumented in this encounter Care Teams Electronic Publisher Relationship Specialty Start Date End Date Brett Velásquez MD PCP - General Internal Medicine 04/21/16 01/25/22 Bertt Velásquez MD PCP - General Internal Medicine 01/26/22 02/15/22 Wayne Jaimes [address] [place] [address] PCP - General Internal Medicine 02/16/22 Reilly Baker MD, PHD Surgeon Neurosurgery 01/20/22 Dafne Hilton MD [address] [place] [address] Specialist Cardiology 10/13/22 Desi Swenson NP [address] [place] [address] Cardiology 02/29/24 documented as of this encounter
--- OUTSIDE RECORDS SUMMARY | 2024-10-24 16:34 | XMS_ITS | Encounter Summary ---
Author Organization [facility] Address [address] [place] [address] Care Team Providers Care Fire Sprinkler Apparatus Inspector Name Role Phone Reilly Baker MD, PHD Unavailable Unava ilWayne Osborne Primary Care Provider [phone] Dafne Hilton MD Unavailable [phone] Desi Swenson NP Unavailable [phone] Encounter Details Date Type Department Care Team Description 09/15/2023 Orders Only Medical Records [address] [place] [address] Yuliana Auguste MD [address] [place] [address] Social History Tobacco Use Types Packs/Day Years [...] Date Type Specialty Care Team Description 04/29/2027 Forestry Aide Report Abstract, Provider documented as of this encounter Procedures Procedure Name Priority Date/Time Associated Diagnosis Comments OUTSIDE COLONOSCOPY Routine 09/09/2023 documented in this encounter Results * OUTSIDE COLONOSCOPY (09/09/2023) Yuliana Auguste MD RADIOLOGY documented in this encounter Visit Diagnoses Not on filedocumented in this encounter Care Teams Fire Sprinkler Apparatus Inspector Relationship Specialty Start Date End Date Wayne Jaimes [address] [place] [address] PCP - General Internal Medicine 02/16/22 Reilly Baker MD, PHD Surgeon Neurosurgery 01/20/22 Dafne Hilton MD [address] [place] [address] Specialist Cardiology 10/13/22 Desi Swenson NP [address] [place] [address] Cardiology 02/29/24 documented as of this encounter
--- OUTSIDE RECORDS SUMMARY | 2024-10-24 16:34 | XMS_ITS | Patient Health Record ---
Author Organization [facility] Address [address] [facility] [address] [place] [address] Care Team Providers Care Welding Estimator Name Role Phone Wayne Jaimes MD Primary Care Provider JORGE L Burks Unavailable [phone] Allergies No Known Allergies Reason For Referral [...] Active Diclofenac Sodium 1 % as directed Single Wire Saw Operator ally place 1 g onto the [...] Problem Status W/U Status Risk Notes Problem [id number] Primary osteoarthritis, right ankle and foot (M19.071) Active confirmed Problem [id number] Primary osteoarthritis, left 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) Active confirmed Problem 986519605 Equinus contracture of right ankle (M24.571) Active confirmed Problem 4714927 Psoriasis (L40.9) Active confirmed Problem Lumbar radiculopathy (609613425) Lumbar radiculopathy, right (M54.16) Active confirmed Problem [id number] Calcium pyrophosphate deposition disease (CPPD) (M11.20) Active [...] N/A Encounters Encounter Location Date Provider Diagnosis [facility] [address] [address] 12/24/2023 JORGE L REDDY Onychomycosis B35.1 ; Calcium pyrophosphate deposition disease (CPPD) M11.20 ; Psoriasis L40.9 ; Hallux limitus of left foot M20.5X2 ; Hallux limitus of right foot M20.5X1 and Lumbar radiculopathy, right M54.16 [facility] [address] [address] 04/10/2024 JORGE L REDDY Onychomycosis B35.1 ; Calcium pyrophosphate deposition disease (CPPD) M11.20 ; Psoriasis L40.9 ; Hallux limitus of left foot M20.5X2 ; Hallux limitus of right foot M20.5X1 ; Lumbar radiculopathy, right M54.16 ; Achilles tendinitis, right leg M76.61 and Achilles tendinitis, left leg M76.62 [facility] [address] [address] 07/10/2024 JORGE L REDDY Onychomycosis B35.1 ; Calcium pyrophosphate deposition disease (CPPD) M11.20 ; Psoriasis L40.9 ; Hallux limitus of left foot M20.5X2 ; Hallux limitus of right foot M20.5X1 ; Lumbar radiculopathy, right M54.16 ; Achilles tendinitis, right leg M76.61 and Achilles tendinitis, left leg M76.62 [facility] [address] [facility] [address] [place] [address] 10/11/2024 JORGE L BARRY Onychomycosis B35.1 ; [...] L REDDY, 01/10/2025 02:45:00 PM, [address] [facility] [address], [place], [address], Insurance Providers Payer Name Payer Address Payer Phone Subscriber Number Group Number Insured Name Patient Relationship to Insured Coverage Start Date Coverage End Date [employer] care medicare [facility] [address] [address] [place] [address] [id number] [facility] Self - patient is the [...]
--- OUTSIDE RECORDS SUMMARY | 2024-10-24 16:34 | XMS_ITS | Encounter Summary ---
Author Organization [facility] Address [address] [place] [address] Care Team Providers Care Skiagrapher Name Role Phone Brett Velásquez MD Primary Care Provider Reilly Stewart MD, PHD Unavailable Unava ilBrett Bailon MD Primary Care Provider [place] Dickson Primary Care Provider [phone] Dafne Hilton MD Unavailable [phone] Desi Swenson NP Unavailable [phone] Encounter Details Date Type Department Care Team Description 11/23/2016 Account Analyst Report Medical Records [address] [place] [address] Aleksandar Huggins MD Social History Tobacco Use [...] Type Specialty Care Team Description 04/29/2027 Account Analyst Report Abstract, Provider documented as of this encounter Visit Diagnoses Not on filedocumented in this encounter Care Teams Skiagrapher Relationship Specialty Start Date End Date Brett Velásquez MD PCP - General Internal Medicine 04/21/16 01/25/22 Brett Velásquez MD PCP - General Internal Medicine 01/26/22 02/15/22 [place] Jaimes [address] [place] [address] PCP - General Internal Medicine 02/16/22 Reilly Baker MD, PHD Surgeon Neurosurgery 01/20/22 Dafne Hilton MD [address] [place] [address] Specialist Cardiology 10/13/22 Desi Swenson NP [address] [place] [address] Cardiology 02/29/24 documented as of this encounter
--- OUTSIDE RECORDS SUMMARY | 2024-10-24 16:34 | XMS_ITS | Encounter Summary ---
Author Organization [facility] Address [address] [place] [address] Care Team Providers Care Social Worker Aide Name Role Phone Reilly Baker MD, PHD Unavailable Unava Wayne Blackman Primary Care Provider Dafne Hilton MD Unavailable [phone] Desi Swenson NP Unavailable [phone] Encounter Details Date Type Department Care Team Description 08/19/2023 Telephone Gastroenterology - [place] [address] [facility] [address] [place] [address] Kevin Oliva PA-C [address] [facility] [address] [place] [address] Social History Tobacco Use Types Packs/Day Years [...] also ordered a barium swallow done at [facility] and states that the same finding [...] .patient will also need to have a Hebrew insurance policy clerk. Please advise documented in this encounter Plan of Treatment Upcoming Encounters Date Type Specialty Care Team Description 04/29/2027 Community Associate Report Abstract, Provider documented as of this encounter Visit Diagnoses Not on filedocumented in this encounter Care Teams Social Worker Aide Relationship Specialty Start Date End Date [place] Jaimes [address] [place] [address] PCP - General Internal Medicine 02/16/22 Reilly Baker MD, PHD Surgeon Neurosurgery 01/20/22 Dafne Hilton MD [address] [place] [address] Specialist Cardiology 10/13/22 Desi Swenson NP [address] [place] [address] Cardiology 02/29/24 documented as of this encounter
--- OUTSIDE RECORDS SUMMARY | 2024-10-24 16:34 | XMS_ITS | Encounter Summary ---
Author Organization [facility] Address [address] [place] [address] Care Team Providers Care Telecommunications Clerk Name Role Phone Brett Velásquez MD Primary Care Provider Keisha Luna MD Primary Care Provider [phone] Brett Velásquez MD Primary Care Provider Reilly Stewart MD, PHD Unavailable [facility] MD Primary Care Provider [place] Dickson Primary Care Provider [phone] Dafne Hilton MD Unavailable [phone] Desi Swenson NP Unavailable [phone] Reason for Visit * Reason Comments Encounter Details Date Type Department Care Team Description 11/27/2013 Telephone Physiatry - [address] [address] Angela Montalvo MD [address] [place] [address] [place], [place] [id number] Social History Tobacco Use Types Packs/Day Years [...] Date Type Specialty Care Team Description 04/29/2027 High Speed Warper Tender Report Abstract, Provider documented as of this encounter Visit Diagnoses Not on filedocumented in this encounter Care Teams Telecommunications Clerk Relationship Specialty Start Date End Date Brett Velásquez MD PCP - General Internal Medicine 10/29/11 06/19/15 Keisha Chavez MD [address] [place] [address] PCP - General Internal Medicine 06/20/15 04/20/16 Brett Velásquez MD PCP - General Internal Medicine 04/21/16 01/25/22 Brett Velásquez MD PCP - General Internal Medicine 01/26/22 02/15/22 Wayne Jaimes [address] [place] [address] PCP - General Internal Medicine 02/16/22 Reilly Baker MD, PHD [address] [place] [address] Surgeon Neurosurgery 01/20/22 Dafne Hilton MD [address] [place] [address] Specialist Cardiology 10/13/22 Desi Swenson NP [address] [place] [address] Cardiology 02/29/24 documented as of this encounter
--- OUTSIDE RECORDS SUMMARY | 2024-10-24 16:34 | XMS_ITS | Encounter Summary ---
Author Organization [facility] Address [address] [place] [address] Care Team Providers Care Share Holder Name Role Phone Brett Velásquez MD Primary Care Provider Reilly Stewart MD, PHD Unavailable Unava Brett Villegas MD Primary Care Provider [place] Dickson Primary Care Provider [phone] Dafne Hilton MD Unavailable [phone] Desi Swenson NP Unavailable [phone] Encounter Details Date Type Department Care Team Description 03/18/2021 Centrifugal Casting Machine Operator Report Medical Records [address] [place] [address] Zuleika Baez PA-C Social History Tobacco Use [...] Date Type Specialty Care Team Description 04/29/2027 Centrifugal Casting Machine Operator Report Abstract, Provider documented as of this encounter Visit Diagnoses Not on filedocumented in this encounter Care Teams Share Holder Relationship Specialty Start Date End Date Brett Velásquez MD PCP - General Internal Medicine 04/21/16 01/25/22 Brett Velásquez MD PCP - General Internal Medicine 01/26/22 02/15/22 [place] Jaimes [address] [place] [address] PCP - General Internal Medicine 02/16/22 Reilly Baker MD, PHD Surgeon Neurosurgery 01/20/22 Dafne Hilton MD [address] [place] [address] Specialist Cardiology 10/13/22 Desi Swenson NP [address] [place] [address] Cardiology 02/29/24 documented as of this encounter
--- OUTSIDE RECORDS SUMMARY | 2024-10-24 16:34 | XMS_ITS | Encounter Summary ---
Author Organization [facility] Address [address] [place] [address] Care Team Providers Care Cream Tester Name Role Phone Reilly Baker MD, PHD Unavailable Unava ilable [place] Jaimes Primary Care Provider [phone] Dafne Hilton MD Unavailable [phone] Desi Swenson NP Unavailable [phone] Encounter Details Date Type Department Care Team Description 01/06/2023 Walk In Clinic Visit Medical Records [address] [place] [address] Clinic, [facility] Walk-In [address] [place] [address] Social History Tobacco Use Types Packs/Day Years [...] Date Type Specialty Care Team Description 04/29/2027 Inspector Finishing Report Abstract, Provider documented as of this encounter Visit Diagnoses Not on filedocumented in this encounter Care Teams Cream Tester Relationship Specialty Start Date End Date [place] Jaimes [address] [place] [address] PCP - General Internal Medicine 02/16/22 Reilly Baker MD, PHD Surgeon Neurosurgery 01/20/22 Dafne Hilton MD [address] [place] [address] Specialist Cardiology 10/13/22 Desi Swenson NP [address] [place] [address] Cardiology 02/29/24 documented as of this encounter
--- OUTSIDE RECORDS SUMMARY | 2024-10-24 16:34 | XMS_ITS | Encounter Summary ---
Author Organization [facility] Address [address] [place] [address] Care Team Providers Care Cemetery Keeper Name Role Phone Brett Velásquez MD Primary Care Provider Reilly Stewart MD, PHD Unavailable Unava Brett Villegas MD Primary Care Provider Wanye Dickson Primary Care Provider [phone] Dafne Hilton MD Unavailable [phone] Desi Swenson NP Unavailable Encounter Details Date Type Department Care Team Description 09/16/2020 Engine Service Repairer Report Medical Records [address] [place] [address] Zuleika Baez PA-C Social History Tobacco Use [...] Type Specialty Care Team Description 04/29/2027 Engine Service Repairer Report Abstract, Provider documented as of this encounter Visit Diagnoses Not on filedocumented in this encounter Care Teams Cemetery Keeper Relationship Specialty Start Date End Date Brett Velásquez MD PCP - General Internal Medicine 04/21/16 01/25/22 Brett Velásquez MD PCP - General Internal Medicine 01/26/22 02/15/22 [place] Jaimes [address] [place] [address] PCP - General Internal Medicine 02/16/22 Reilly Baker MD, PHD Surgeon Neurosurgery 01/20/22 Dafne Hilton MD [address] [place] [address] Specialist Cardiology 10/13/22 Desi Swenson NP [address] [place] [address] Cardiology 02/29/24 documented as of this encounter
--- OUTSIDE RECORDS SUMMARY | 2024-10-24 16:34 | XMS_ITS | Encounter Summary ---
Author Organization [facility] Address [address] [place] [address] Care Team Providers Care Oil Derrick Operator Name Role Phone Brett Velásquez MD Primary Care Provider Reilly Stewart MD, PHD Unavailable Unava ilBrett Bailon MD Primary Care Provider [place] Dickson Primary Care Provider [phone] Dafne Hilton MD Unavailable Desi Swenson NP Unavailable [phone] Encounter Details Date Type Department Care Team Description 10/04/2018 Release of Information Medical Records [address] [place] [address] Abstract, Provider Social History Tobacco Use Types [...] Date Type Specialty Care Team Description 04/29/2027 Milk Route Deliverer Report Abstract, Provider documented as of this encounter Visit Diagnoses Not on filedocumented in this encounter Care Teams Oil Derrick Operator Relationship Specialty Start Date End Date Brett Velásquez MD PCP - General Internal Medicine 04/21/16 01/25/22 Brett Velásquez MD PCP - General Internal Medicine 01/26/22 02/15/22 [place] Jaimes [address] [place] [address] PCP - General Internal Medicine 02/16/22 Reilly Baker MD, PHD Surgeon Neurosurgery 01/20/22 Dafne Hilton MD [address] [place] [address] Specialist Cardiology 10/13/22 Desi Swenson NP [address] [place] [address] Cardiology 02/29/24 documented as of this encounter
--- OUTSIDE RECORDS SUMMARY | 2024-10-24 16:34 | XMS_ITS | Encounter Summary ---
Author Organization [facility] Address [address] [place] [address] Care Team Providers Care Resp Ther Name Role Phone Brett Velásquez MD Primary Care Provider Keisha Luna MD Primary Care Provider [phone] Brett Velásquez MD Primary Care Provider Reilly Stweart MD, PHD Unavailable Unava ilable Brett Velásquez MD Primary Care Provider [place] Dickson Primary Care Provider [phone] Dafne Hilton MD Unavailable [phone] Desi Swenson NP Unavailable [phone] Encounter Details Date Type Department Care Team Description 03/02/2013 Milk Of Lime Slaker Report Medical Records [address] [place] [address] Rehab., [facility] Social History Tobacco Use Types Packs/Day Years [...] Type Specialty Care Team Description 04/29/2027 Milk Of Lime Slaker Report Abstract, Provider documented as of this encounter Visit Diagnoses Not on filedocumented in this encounter Care Teams Resp Ther Relationship Specialty Start Date End Date Brett Velásquez MD PCP - General Internal Medicine 10/29/11 06/19/15 Keisha Chavez MD [address] [place] [address] PCP - General Internal Medicine 06/20/15 04/20/16 Brett Velásquez MD PCP - General Internal Medicine 04/21/16 01/25/22 Brett Velásquez MD PCP - General Internal Medicine 01/26/22 02/15/22 Wayne Jaimes [address] [place] [address] PCP - General Internal Medicine 02/16/22 Reilly Baker MD, PHD [address] [place] [address] Surgeon Neurosurgery 01/20/22 Dafne Hilton MD [address] [place] [address] Specialist Cardiology 10/13/22 Desi Swenson NP [address] [place] [address] Cardiology 02/29/24 documented as of this encounter
--- OUTSIDE RECORDS SUMMARY | 2024-10-24 16:34 | XMS_ITS | Encounter Summary ---
Author Organization [facility] Address [address] [place] [address] Care Team Providers Care Sys Dir Name Role Phone Reilly Baker MD, PHD Unavailable Unava ilable [place] Jaimes Primary Care Provider [phone] Dafne iHlton MD Unavailable [phone] Desi Swenson NP Unavailable [phone] Reason for Visit * Reason Onset Date Comments Medication 08/26/2023 Encounter Details Date Type Department Care Team Description 08/26/2023 Refill Gastroenterology - [address] [place] [address] Yuliana Auguste MD [address] [place], [place] [id number] Medication Social History Tobacco Use Types Packs/Day [...] Type Specialty Care Team Description 04/29/2027 Pipe Organ Mechanic Report Abstract, Provider documented as of this encounter Visit Diagnoses Not on filedocumented in this encounter Care Teams Sys Dir Relationship Specialty Start Date End Date Wayne Jaimes [address] [place], [place] [id number] PCP - General Internal Medicine 02/16/22 Reilly Baker MD, PHD Surgeon Neurosurgery 01/20/22 Dafne Hilton MD [address] [place] [address] Specialist Cardiology 10/13/22 Desi Swenson NP [address] [place], [place] [address] Cardiology 02/29/24 documented as of this encounter
--- OUTSIDE RECORDS SUMMARY | 2024-10-24 16:34 | XMS_ITS | Encounter Summary ---
Author Organization [facility] Address [address] [place] [address] Care Team Providers Care Family And Consumer Education Teacher Name Role Phone Brett Velásquez MD Primary Care Provider Reilly Stewart MD, PHD Unavailable Brett España MD Primary Care Provider [place] Dickson Primary Care Provider [phone] Dafne Hilton MD Unavailable [phone] Desi Swenson NP Unavailable [phone] Encounter Details Date Type Department Care Team Description 09/01/2020 [facility] [address] [place] [address] Md Steve Social History Tobacco Use Types [...] Date Type Specialty Care Team Description 04/29/2027 Recruitment Director Report Abstract, Provider documented as of this encounter Visit Diagnoses Not on filedocumented in this encounter Care Teams Family And Consumer Education Teacher Relationship Specialty Start Date End Date Brett Velásquez MD PCP - General Internal Medicine 04/21/16 01/25/22 Brett Velásquez MD PCP - General Internal Medicine 01/26/22 02/15/22 [place] Jaimes [address] [place] [address] PCP - General Internal Medicine 02/16/22 Reilly Baker MD, PHD Surgeon Neurosurgery 01/20/22 Dafne Hilton MD [address] [place] [address] Specialist Cardiology 10/13/22 Desi Swenson NP [address] [place] [address] Cardiology 02/29/24 documented as of this encounter
--- OUTSIDE RECORDS SUMMARY | 2024-10-24 16:34 | XMS_ITS | Encounter Summary ---
Author Organization [facility] Address [address] [place] [address] Care Team Providers Care Cook Ice Cream Name Role Phone Reilly Baker MD, PHD Unavailable Unava ilable Wayne Jaimes Primary Care Provider [phone] Dafne Hilton MD Unavailable [phone] Desi Swenson NP Unavailable [phone] Encounter Details Date Type Department Care Team Description 11/05/2023 Resource Director Report Medical Records [address] [place] [address] Maxwell Gordon MD Social History Tobacco Use [...] Type Specialty Care Team Description 04/29/2027 Resource Director Report Abstract, Provider documented as of this encounter Visit Diagnoses Not on filedocumented in this encounter Care Teams Cook Ice Cream Relationship Specialty Start Date End Date [place] Jaimes [address] [place] [address] PCP - General Internal Medicine 02/16/22 Reilly Baker MD, PHD Surgeon Neurosurgery 01/20/22 Dafne Hilton MD [address] [place] [address] Specialist Cardiology 10/13/22 Desi Swenson NP [address] [place] [address] Cardiology 02/29/24 documented as of this encounter
--- OUTSIDE RECORDS SUMMARY | 2024-10-24 16:34 | XMS_ITS | Encounter Summary ---
Author Organization [facility] Address [address] [place] [address] Care Team Providers Care Farm Assistant Name Role Phone Reilly Baker MD, PHD Unavailable Unava ilWayne Osborne Primary Care Provider Dafne Hilton MD Unavailable [phone] Desi Swenson NP Unavailable [phone] Encounter Details Date Type Department Care Team Description 01/18/2024 Telephone Gastroenterology - [place] [address] [facility] [address] [place] [address] Kevin Oliva PA-C [address] [facility] [address] [place] [address] Social History Tobacco Use Types Packs/Day Years [...] 01/31/2024 3:25 PM EDT Per Prisca at [facility] is not contracted with patient's insurance either, [facility] [employer]. Per abdias Brown to book at [facility]. Called Central Registration at [phone] but they want the order faxed with demo sheet. Faxed to [phone]. * Telephone Encounter - Alexandria John - 01/31/2024 3:08 PM EDT Patient came in office stating [facility] is not accepting patient insurance. Please schedule appointment at [facility] for Barium Swallow and contact patient with information. * Telephone Encounter - Cristina Jimenez - 01/18/2024 8:21 AM EDT Booked Barium Swallow at [address] [place] [address] for patient on January 31 at 8am w/ arrival at 7:45am. Called the patient to notify of appointment details, including nothing to eat/drink after midnight. I also mailed an appointment letter. Order has been faxed to [phone]. documented in this encounter Plan of Treatment Upcoming Encounters Date Type Specialty Care Team Description 04/29/2027 Dna Sequencing Associate Report Abstract, Provider documented as of this encounter Visit Diagnoses Not on filedocumented in this encounter Care Teams Farm Assistant Relationship Specialty Start Date End Date Wayne JaimesUsama [address] [place] [address] PCP - General Internal Medicine 02/16/22 Reilly Baker MD, PHD Surgeon Neurosurgery 01/20/22 Dafne Hilton MD [address] [place] [address] Specialist Cardiology 10/13/22 Desi Swenson NP [address] [place] [address] Cardiology 02/29/24 documented as of this encounter
--- OUTSIDE RECORDS SUMMARY | 2024-10-24 16:34 | XMS_ITS | Encounter Summary ---
Author Organization [facility] Address [address] [place] [address] Care Team Providers Care Braille And Talking Books Clerk Name Role Phone Reilly Baker MD, PHD Unavailable Unava ilable [place] Jaimes Primary Care Provider [phone] Dafne Hilton MD Unavailable [phone] Desi Swenson NP Unavailable [phone] Encounter Details Date Type Department Care Team Description 02/15/2023 Manager Traffic Report Medical Records [address] [place] [address] Vladislav Antunez DO Social History Tobacco Use [...] Type Specialty Care Team Description 04/29/2027 Manager Traffic Report Abstract, Provider documented as of this encounter Visit Diagnoses Not on filedocumented in this encounter Care Teams Braille And Talking Books Clerk Relationship Specialty Start Date End Date [place] Jaimes [address] [place], [place] [id number] PCP - General Internal Medicine 02/16/22 Reilly Baker MD, PHD Surgeon Neurosurgery 01/20/22 Dafne Hilton MD [address] [place] [address] Specialist Cardiology 10/13/22 Desi Swenson NP [address] [place], [place] [address] Cardiology 02/29/24 documented as of this encounter
--- OUTSIDE RECORDS SUMMARY | 2024-10-24 16:34 | XMS_ITS | Encounter Summary ---
Author Organization [facility] Address [address] [place] [address] Care Team Providers Care Commercial Marketing Specialist Name Role Phone Brett Velásquez MD Primary Care Provider Keisha Luna MD Primary Care Provider [phone] Brett Velásquez MD Primary Care Provider Reilly Stewart MD, PHD Unavailable [facility] hospitalBrett Bailon MD Primary Care Provider [place] Dickson Primary Care Provider [phone] Dafne Hilton MD Unavailable [phone] Desi Swenson NP Unavailable [phone] Reason for Visit * Reason Onset Date Comments REFERRAL 03/27/2013 Encounter Details Date Type Department Care Team Description 03/27/2013 Telephone Physiatry - [address] [address] Vladislav Antunez, REFERRAL Social History Tobacco Use Types Packs/Day Years [...] encounter Miscellaneous Notes * Telephone Encounter - Jaida Danielle - 03/27/2013 1:05 PM EDT This is Just an FYI: This Patient was referred to our Physiatry department for worsening neck pain, s/p physical therapy on 03/10 since then this patient has refused to respond to our phone calls or an Unable to reach letter sent to their home, therefore I will be removing this patient off of our referrals report documented in this encounter Plan of Treatment Upcoming Encounters Date Type Specialty Care Team Description 04/29/2027 Lead Bi Developer Report Abstract, Provider documented as of this encounter Visit Diagnoses Not on filedocumented in this encounter Care Teams Commercial Marketing Specialist Relationship Specialty Start Date End Date Brett Velásquez MD PCP - General Internal Medicine 10/29/11 06/19/15 Keisha Chavez MD [address] [place] [address] PCP - General Internal Medicine 06/20/15 04/20/16 Brett Velásquez MD PCP - General Internal Medicine 04/21/16 01/25/22 Brett Velásquez MD PCP - General Internal Medicine 01/26/22 02/15/22 Wayne Jaimes [address] [place] [address] PCP - General Internal Medicine 02/16/22 Reilly Baker MD, PHD [address] [place] [address] Surgeon Neurosurgery 01/20/22 Dafne Hilton MD [address] [place] [address] Specialist Cardiology 10/13/22 Desi Swenson NP [address] [place] [address] Cardiology 02/29/24 documented as of this encounter
--- OUTSIDE RECORDS SUMMARY | 2024-10-24 16:34 | XMS_ITS | Encounter Summary ---
Author Organization [facility] Address [address] [place] [address] Care Team Providers Care Celery Tier Name Role Phone Brett Velásquez MD Primary Care Provider Keisha Luna MD Primary Care Provider [phone] Brett Velásquez MD Primary Care Provider Reilly Stewart MD, PHD Unavailable Unava ilable Brett Velásquez MD Primary Care Provider Wayne Dickson Primary Care Provider [phone] Dafne Hilton MD Unavailable [phone] Desi Swenson NP Unavailable [phone] Encounter Details Date Type Department Care Team Description 11/20/2013 Sales Service Manager Report Medical Records [address] [place] [address] Neurosurgery, [address] [place] [address] Social History Tobacco Use Types Packs/Day Years [...] Type Specialty Care Team Description 04/29/2027 Sales Service Manager Report Abstract, Provider documented as of this encounter Visit Diagnoses Not on filedocumented in this encounter Care Teams Celery Tier Relationship Specialty Start Date End Date Brett Velásquez MD PCP - General Internal Medicine 10/29/11 06/19/15 Keisha Chavez MD [address] [place] [address] PCP - General Internal Medicine 06/20/15 04/20/16 Brett Velásquez MD PCP - General Internal Medicine 04/21/16 01/25/22 Brett Velásquez MD PCP - General Internal Medicine 01/26/22 02/15/22 Wayne Jaimes [address] [place] [address] PCP - General Internal Medicine 02/16/22 Reilly Baker MD, PHD [address] [place] [address] Surgeon Neurosurgery 01/20/22 Dafne Hilton MD [address] [place] [address] Specialist Cardiology 10/13/22 Desi Swenson NP [address] [place] [address] Cardiology 02/29/24 documented as of this encounter
--- OUTSIDE RECORDS SUMMARY | 2024-10-24 16:34 | XMS_ITS | Encounter Summary ---
Author Organization [facility] Address [address] [place] [address] Care Team Providers Care Property Administrator Name Role Phone Reilly Baker MD, PHD Unavailable Unava ilable Wayne Jaimes Primary Care Provider [phone] Dafne Hilton MD Unavailable [phone] Desi Swenson NP Unavailable [phone] Encounter Details Date Type Department Care Team Description 08/25/2023 [facility] Records [facility] Medical [facility] [address] [facility] [address] [place] [address] Wen Herrmann NP [address] [facility] [place] [address] Social History Tobacco Use Types Packs/Day Years [...] Date Type Specialty Care Team Description 04/29/2027 Stonecutter Hand Report Abstract, Provider documented as of this encounter Visit Diagnoses Not on filedocumented in this encounter Care Teams Property Administrator Relationship Specialty Start Date End Date Wayne Jaimes [address] [place], [place] [id number] PCP - General Internal Medicine 02/16/22 Reilly Baker MD, PHD Surgeon Neurosurgery 01/20/22 Dafne Hilton MD [address] [place], [place] [id number] Specialist Cardiology 10/13/22 Desi Swenson NP [address] [place] [address] Cardiology 02/29/24 documented as of this encounter
--- OUTSIDE RECORDS SUMMARY | 2024-10-24 16:34 | XMS_ITS | Encounter Summary ---
Author Organization [facility] Address [address] [place] [address] Care Team Providers Care Demand Planning Manager Name Role Phone Reilly Baker MD, PHD Unavailable Unava ilable Wayne Jaimes Primary Care Provider [phone] Dafne Hilton MD Unavailable [phone] Desi Swenson NP Unavailable [phone] Encounter Details Date Type Department Care Team Description 10/11/2023 Multigraph Operator Report Medical Records [address] [place] [address] Vladislav Antunez DO Social History Tobacco Use [...] Date Type Specialty Care Team Description 04/29/2027 Multigraph Operator Report Abstract, Provider documented as of this encounter Visit Diagnoses Not on filedocumented in this encounter Care Teams Demand Planning Manager Relationship Specialty Start Date End Date Wayne Jaimes [address] [place] [address] PCP - General Internal Medicine 02/16/22 Reilly Baker MD, PHD Surgeon Neurosurgery 01/20/22 Dafne Hilton MD [address] [place] [address] Specialist Cardiology 10/13/22 Desi Swenson NP [address] [place] [address] Cardiology 02/29/24 documented as of this encounter
--- OUTSIDE RECORDS SUMMARY | 2024-10-24 16:34 | XMS_ITS | Encounter Summary ---
Author Organization [facility] Address [address] [place] [address] Care Team Providers Care Pull Out Operator Name Role Phone Brett Velásquez MD Primary Care Provider Reilly Stewart MD, PHD Unavailable Unava Brett Villegas MD Primary Care Provider Wayne Dickson Primary Care Provider [phone] Dafne Hilton MD Unavailable [phone] Desi Swenson NP Unavailable [phone] Encounter Details Date Type Department Care Team Description 09/18/2020 Pouncing Machine Operator Report Medical Records [address] [place] [address] Desi Li DPM Social History Tobacco Use [...] Date Type Specialty Care Team Description 04/29/2027 Pouncing Machine Operator Report Abstract, Provider documented as of this encounter Visit Diagnoses Not on filedocumented in this encounter Care Teams Pull Out Operator Relationship Specialty Start Date End Date Brett Velásquez MD PCP - General Internal Medicine 04/21/16 01/25/22 Brett Velásquez MD PCP - General Internal Medicine 01/26/22 02/15/22 Wayne Jaimes [address] [place] [address] PCP - General Internal Medicine 02/16/22 Reilly Baker MD, PHD Surgeon Neurosurgery 01/20/22 Dafne Hilton MD [address] [place] [address] Specialist Cardiology 10/13/22 Desi Swenson NP [address] [place] [address] Cardiology 02/29/24 documented as of this encounter
--- OUTSIDE RECORDS SUMMARY | 2024-10-24 16:34 | XMS_ITS | Encounter Summary ---
Author Organization [facility] Address [address] [place] [address] Care Team Providers Care Roof Bolter Name Role Phone Brett Velásquez MD Primary Care Provider Keisha Luna MD Primary Care Provider [phone] Brett Velásquez MD Primary Care Provider Reilly Stewart MD, PHD Unavailable Unava ilable Brett Velásquez MD Primary Care Provider Wayne Dickson Primary Care Provider [phone] Dafne Hilton MD Unavailable [phone] Desi Swenson NP Unavailable [phone] Encounter Details Date Type Department Care Team Description 05/25/2013 Goggles Assembler Report Medical Records [address] [place] [address] Aleksandar Huggins MD Social History Tobacco Use [...] Date Type Specialty Care Team Description 04/29/2027 Goggles Assembler Report Abstract, Provider documented as of this encounter Visit Diagnoses Not on filedocumented in this encounter Care Teams Roof Bolter Relationship Specialty Start Date End Date Brett Velásquez MD PCP - General Internal Medicine 10/29/11 06/19/15 Keisha Chavez MD [address] [place] [address] PCP - General Internal Medicine 06/20/15 04/20/16 Brett Velásquez MD PCP - General Internal Medicine 04/21/16 01/25/22 Brett Velásquez MD PCP - General Internal Medicine 01/26/22 02/15/22 Wayne Jaimes [address] [place] [address] PCP - General Internal Medicine 02/16/22 Reilly Baker MD, PHD [address] [place] [address] Surgeon Neurosurgery 01/20/22 Dafne Hilton MD [address] [place] [address] Specialist Cardiology 10/13/22 Desi Swenson NP [address] [place] [address] Cardiology 02/29/24 documented as of this encounter
--- OUTSIDE RECORDS SUMMARY | 2024-10-24 16:34 | XMS_ITS | Encounter Summary ---
Author Organization [facility] Address [address] [place] [address] Care Team Providers Care Sanitation Associate Name Role Phone Reilly Baker MD, PHD Unavailable Unava ilable Wayne Jaimes Primary Care Provider [phone] Dafne Hilton MD Unavailable [phone] Desi Swenson NP Unavailable [phone] Encounter Details Date Type Department Care Team Description 11/11/2023 [place] [place] [facility] [address] [place] [id number] Md Steve Social History Tobacco Use Types [...] Type Specialty Care Team Description 04/29/2027 Automotive Dismantler Report Abstract, Provider documented as of this encounter Visit Diagnoses Not on filedocumented in this encounter Care Teams Sanitation Associate Relationship Specialty Start Date End Date Wayne Jaimes [address] [place] [address] PCP - General Internal Medicine 02/16/22 Reilly Baker MD, PHD Surgeon Neurosurgery 01/20/22 Dafne Hilton MD [address] [place] [address] Specialist Cardiology 10/13/22 Desi Swenson NP [address] [place] [address] Cardiology 02/29/24 documented as of this encounter
--- OUTSIDE RECORDS SUMMARY | 2024-10-24 16:34 | XMS_ITS | Encounter Summary ---
Author Organization [facility] Address [address] [place] [address] Care Team Providers Care Manpower Development Advisor Name Role Phone Reilly Baker MD, PHD Unavailable Unava ilable Wayne Jaimes Primary Care Provider [phone] Dafne Hilton MD Unavailable [phone] Desi Swenson NP Unavailable [phone] Encounter Details Date Type Department Care Team Description 08/17/2023 Driver Wheelchair Report Medical Records [address] Social History Tobacco Use Types Packs/Day [...] Date Type Specialty Care Team Description 04/29/2027 Driver Wheelchair Report Abstract, Provider documented as of this encounter Visit Diagnoses Not on filedocumented in this encounter Care Teams Manpower Development Advisor Relationship Specialty Start Date End Date Wayne Jaimes [address] [place], [place] [id number] PCP - General Internal Medicine 02/16/22 Reilly Baker MD, PHD Surgeon Neurosurgery 01/20/22 Dafne Hilton MD [address] [place] [address] Specialist Cardiology 10/13/22 Desi Swenson, ILDA [address] [place] [address] Cardiology 02/29/24 documented as of this encounter
--- OUTSIDE RECORDS SUMMARY | 2024-10-24 16:34 | XMS_ITS | Encounter Summary ---
Author Organization [facility] Address [address] [place] [address] Care Team Providers Care Junior Engineer Name Role Phone Reilly Baker MD, PHD Unavailable Unava Wayne Blackman Primary Care Provider Dafne Hilton MD Unavailable [phone] Desi Swenson NP Unavailable [phone] Encounter Details Date Type Department Care Team Description 02/15/2024 Orders Only Gastroenterology - [place] 175 [facility] [address] [place] [address] Kevin Oliva PA-C [address] [facility] [address] [place] [address] Gastroesophageal reflux disease, unspecified whether esophagitis present; [...] Type Specialty Care Team Description 04/29/2027 Community Mental Health Social Worker Report Abstract, Provider documented as of [...] type documented in this encounter Care Teams Junior Engineer Relationship Specialty Start Date End Date Wayne Jaimes [address] [place] [address] PCP - General Internal Medicine 02/16/22 Reilly Baker MD, PHD Surgeon Neurosurgery 01/20/22 Dafne Hilton MD [address] [place] [address] Specialist Cardiology 10/13/22 Desi Swenson NP [address] [place] [address] Cardiology 02/29/24 documented as of this encounter
--- OUTSIDE RECORDS SUMMARY | 2024-10-24 16:35 | XMS_ITS | Clinical Summary ---
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 I have encouraged him to do so. [...] Date Type Specialty Care Team Description 04/29/2027 Web Editor Report Abstract, Provider Health Maintenance Due Date Last Done Comments Covid-19 Vaccine (2022-2 4 season) 2024 04/23/2021, 10/22/2020, 10/22/2020, Additional history exists DEPRESSION SCREEN 04/06/2024 04/06/2023 (Co mpleted), 10/29/2021, 07/09/2021 (Completed) FALL RISK ASSESSMENT 04/06/2024 04/06/2023 (Completed), 07/09/2021 (Completed) DEPRESSION SCREENING/FOLLOWUP 07/12/2024 (Completed), 10/29/2021 (Completed), 07/09/2021 (Completed), Additional history exists INFLUENZA (Season Ended) 2025 023, 04/08/2021, 04/09/2020, Additional history exists COLON CANCER SCREENING 09/08/2028 4, 02/14/2019 (External Completion), 02/14/2019, Additional history exists CHOLESTEROL SCREENING 03/06/2029 03/06/2024 , 08/17/2023, 04/05/2023, Additional history exists DTAP/TDAP/TD (3 - Td or Tdap) 04/26/2030 04/26/2020, 08/31/2012 SHINGLES VACCINE Completed 01/24/2020, , 09/06/2019, Additional history exists PNEUMOCOCCAL VACCINE Completed 04/09/2020, 04/28/20 19 HEPATITIS C SCREENING Completed 04/18/2020, 013 Care Teams Senior Net Architect Relationship Specialty Start Date End Date Wayne Jaimes [address] [place] [address] PCP - General Internal Medicine 02/16/22 Reilly Baker MD, PHD Surgeon Neurosurgery 01/20/22 Dafne Hilton MD [address] [place] [address] Specialist Cardiology 10/13/22 Desi Swenson NP [address] [place] [id number] Cardiology 02/29/24
--- OUTSIDE RECORDS SUMMARY | 2024-10-24 16:35 | XMS_ITS | Encounter Summary ---
Author Organization [facility] Address [address] [place] [address] Care Team Providers Care Acid Conditioning Worker Name Role Phone Brett Velásquez MD Primary Care Provider Keisha Luna MD Primary Care Provider [phone] Brett Velásquez MD Primary Care Provider Reilly Stewart MD, PHD Unavailable Unava ilable Brett Velásquez MD Primary Care Provider Wayne Dicksno Primary Care Provider [phone] Dafne Hilton MD Unavailable [phone] Desi Swenson NP Unavailable [phone] Encounter Details Date Type Department Care Team Description 04/26/2014 Motorcycle Delivery Driver Report Medical Records [address] [place] [address] Kareem Grier PA-C Social History Tobacco Use [...] Date Type Specialty Care Team Description 04/29/2027 Motorcycle Delivery Driver Report Abstract, Provider documented as of this encounter Visit Diagnoses Not on filedocumented in this encounter Care Teams Acid Conditioning Worker Relationship Specialty Start Date End Date Brett Velásquez MD PCP - General Internal Medicine 10/29/11 06/19/15 Keisha Chavez MD [address] [place] [address] PCP - General Internal Medicine 06/20/15 04/20/16 Brett Velásquez MD PCP - General Internal Medicine 04/21/16 01/25/22 Brett Velásquez MD PCP - General Internal Medicine 01/26/22 02/15/22 Wayne Jaimes [address] [place] [address] PCP - General Internal Medicine 02/16/22 Reilly Baker MD, PHD [address] [place] [address] Surgeon Neurosurgery 01/20/22 Dafne Hilton MD [address] [place] [address] Specialist Cardiology 10/13/22 Desi Swenson NP [address] [place] [address] Cardiology 02/29/24 documented as of this encounter
--- OUTSIDE RECORDS SUMMARY | 2024-10-24 16:35 | XMS_ITS | Encounter Summary ---
Author Organization [facility] Address [address] [place] [address] Care Team Providers Care Swinging Cut Off Saw Operator Name Role Phone Reilly Baker MD, PHD Unavailable Unava ilable Wayne Jaimes Primary Care Provider [phone] Dafne Hilton MD Unavailable [phone] Desi Swenson NP Unavailable [phone] Encounter Details Date Type Department Care Team Description 06/22/2023 Warping Machine Operator Report Medical Records [address] [place] [address] Vladislav Antunez DO Social History Tobacco Use [...] Date Type Specialty Care Team Description 04/29/2027 Warping Machine Operator Report Abstract, Provider documented as of this encounter Visit Diagnoses Not on filedocumented in this encounter Care Teams Swinging Cut Off Saw Operator Relationship Specialty Start Date End Date Wayne Jaimes [address] [place] [address] PCP - General Internal Medicine 02/16/22 Reilly Baker MD, PHD Surgeon Neurosurgery 01/20/22 Dafne Hilton MD [address] [place] [address] Specialist Cardiology 10/13/22 Desi Swenson NP [address] [place] [address] Cardiology 02/29/24 documented as of this encounter
--- OUTSIDE RECORDS SUMMARY | 2024-10-24 16:35 | XMS_ITS | Encounter Summary ---
Author Organization [facility] Address [address] [place] [address] Care Team Providers Care Bindery Assistant Name Role Phone Brett Velásquez MD Primary Care Provider Reilly Stewart MD, PHD Unavailable Unava ilBrett Bailon MD Primary Care Provider Wayne Dickson Primary Care Provider [phone] Dafne Hilton MD Unavailable [phone] Desi Swenson NP Unavailable [phone] Encounter Details Date Type Department Care Team Description 07/21/2019 Release of Information Medical Records [address] [place] [address] Abstract, Provider Social History Tobacco Use Types [...] Date Type Specialty Care Team Description 04/29/2027 Solar System Installer Report Abstract, Provider documented as of this encounter Visit Diagnoses Not on filedocumented in this encounter Care Teams Bindery Assistant Relationship Specialty Start Date End Date Brett Velásquez MD PCP - General Internal Medicine 04/21/16 01/25/22 Brett Velásquez MD PCP - General Internal Medicine 01/26/22 02/15/22 Wayne Jaimes [address] [place] [address] PCP - General Internal Medicine 02/16/22 Reilly Baker MD, PHD Surgeon Neurosurgery 01/20/22 Dafne Hilton MD [address] [place] [address] Specialist Cardiology 10/13/22 Desi Swenson NP [address] [place] [address] Cardiology 02/29/24 documented as of this encounter
--- OUTSIDE RECORDS SUMMARY | 2024-10-24 16:35 | XMS_ITS | Encounter Summary ---
Author Organization [facility] Address [address] [place] [address] Care Team Providers Care Entry Processor Name Role Phone Brett Velásquez MD Primary Care Provider Reilly Stewart MD, PHD Unavailable Unawa Brett Villegas MD Primary Care Provider Wayne Dickson Primary Care Provider [phone] Dafne Hilton MD Unavailable [phone] Desi Swenson NP Unavailable [phone] Reason for Visit * Reason Onset Date Comments injection 02/02/2019 Encounter Details Date Type Department Care Team Description 02/02/2019 Telephone Physiatry - [address] [address] Sonny Abrams PA-C injection Social History Tobacco [...] Date Type Specialty Care Team Description 04/29/2027 Tie Hacker Report Abstract, Provider documented as of this encounter Visit Diagnoses Not on filedocumented in this encounter Care Teams Entry Processor Relationship Specialty Start Date End Date Brett Velásquez MD PCP - General Internal Medicine 04/21/16 01/25/22 Brett Velásquez MD PCP - General Internal Medicine 01/26/22 02/15/22 Wayne Jaimes [address] [place] [address] PCP - General Internal Medicine 02/16/22 Reilly Baker MD, PHD Surgeon Neurosurgery 01/20/22 Dafne Hilton MD [address] [place] [address] Specialist Cardiology 10/13/22 Desi Swenson NP [address] [place] [address] Cardiology 02/29/24 documented as of this encounter
--- OUTSIDE RECORDS SUMMARY | 2024-10-24 16:35 | XMS_ITS | Encounter Summary ---
Author Organization [facility] Address [address] [place] [address] Care Team Providers Care Security Coordinator Name Role Phone Brett Velásquez MD Primary Care Provider Reilly Stewart MD, PHD Unavailable Unava ilBrett Bailon MD Primary Care Provider Wayne Dickson Primary Care Provider [phone] Dafne Hilton MD Unavailable [phone] Desi Swenson NP Unavailable [phone] Encounter Details Date Type Department Care Team Description 12/11/2021 Pt. Referral Request [facility] [address] [place] [address] Md Steve Social History Tobacco Use Types [...] Date Type Specialty Care Team Description 04/29/2027 Produce Team Lead Report Abstract, Provider documented as of this encounter Visit Diagnoses Not on filedocumented in this encounter Care Teams Security Coordinator Relationship Specialty Start Date End Date Brett Velásquez MD PCP - General Internal Medicine 04/21/16 01/25/22 Brett Velásquez MD PCP - General Internal Medicine 01/26/22 02/15/22 Wayne Jaimes [address] [place] [address] PCP - General Internal Medicine 02/16/22 Reilly Baker MD, PHD Surgeon Neurosurgery 01/20/22 Dafne Hilton MD [address] [place] [address] Specialist Cardiology 10/13/22 Desi Swenson NP [address] [place] [address] Cardiology 02/29/24 documented as of this encounter
--- OUTSIDE RECORDS SUMMARY | 2024-10-24 16:35 | XMS_ITS | Encounter Summary ---
Author Organization [facility] Address [address] [place] [address] Care Team Providers Care Hot Die Press Operator Name Role Phone Brett Velásquez MD Primary Care Provider Reilly Stewart MD, PHD Unavailable UnaBrett Davis MD Primary Care Provider Wayne Dickson Primary Care Provider Dafne Hilton MD Unavailable [phone] Desi Swenson NP Unavailable [phone] Encounter Details Date Type Department Care Team Description 10/31/2021 [facility] [address] [address] Ena Whipple, PA-C [address] [address] Social History Tobacco Use Types Packs/Day Years [...] Date Type Specialty Care Team Description 04/29/2027 Braider Operator Report Abstract, Provider documented as of this encounter Visit Diagnoses Not on filedocumented in this encounter Care Teams Hot Die Press Operator Relationship Specialty Start Date End Date Brett Velásquez MD PCP - General Internal Medicine 04/21/16 01/25/22 Brett Velásquez MD PCP - General Internal Medicine 01/26/22 02/15/22 Wayne Jaimes [address] [place] [address] PCP - General Internal Medicine 02/16/22 Reilly Baker MD, PHD Surgeon Neurosurgery 01/20/22 Dafne Hilton MD [address] [place] [address] Specialist Cardiology 10/13/22 Desi Swenson NP [address] [place] [address] Cardiology 02/29/24 documented as of this encounter
--- OUTSIDE RECORDS SUMMARY | 2024-10-24 16:35 | XMS_ITS | Encounter Summary ---
Author Organization [facility] Address [address] [place] [address] Care Team Providers Care Rad Technologist Name Role Phone Brett Velásquez MD Primary Care Provider Reilly Stewart MD, PHD Unavailable Unaca Brett Villegas MD Primary Care Provider Wayne Dickson Primary Care Provider [phone] Dafne Hilton MD Unavailable [phone] Desi Swenson NP Unavailable [phone] Reason for Visit * Reason Onset Date Comments Medication 12/05/2021 Encounter Details Date Type Department Care Team Description 12/05/2021 Telephone [facility] 175 [facility] [address] [place] [address] Ena Whipple PA-C [address] [address] Medication Social History Tobacco Use Types Packs/Day [...] Date Type Specialty Care Team Description 04/29/2027 [employer] Global Product Leadership Report Abstract, Provider documented as of this encounter Visit Diagnoses Not on filedocumented in this encounter Care Teams Rad Technologist Relationship Specialty Start Date End Date Brett Velásquez MD PCP - General Internal Medicine 04/21/16 01/25/22 Brett Velásquez MD PCP - General Internal Medicine 01/26/22 02/15/22 Wayne Jaimes [address] [place] [address] PCP - General Internal Medicine 02/16/22 Reilly Baker MD, PHD Surgeon Neurosurgery 01/20/22 Dafne Hilton MD [address] [place] [address] Specialist Cardiology 10/13/22 Desi Swenson NP [address] [place] [address] Cardiology 02/29/24 documented as of this encounter
--- OUTSIDE RECORDS SUMMARY | 2024-10-24 16:35 | XMS_ITS | Clinical Summary ---
Author Organization [facility] Address [address] [place] [address] Care Team Providers Care Quality Associate Name Role Phone Brett Velásquez MD Primary Care Provider [phone] Allergies No known active allergies Medications Medication [...] age to complete this topic Care Teams Quality Associate Relationship Specialty Start Date End Date Brett Velásquez MD PCP - General Internal Medicine 10/20/17
--- OUTSIDE RECORDS SUMMARY | 2024-10-24 16:35 | XMS_ITS | Encounter Summary ---
Author Organization [facility] Address [address] [place] [address] Care Team Providers Care Bulb Farmworker Name Role Phone Brett Velásquez MD Primary Care Provider Keisha Luna MD Primary Care Provider [phone] Brett Velásquez MD Primary Care Provider Reilly Stewart MD, PHD Unavailable Unava ilable Brett Velásquez MD Primary Care Provider Wayne Dickson Primary Care Provider [phone] Dafne Hilton MD Unavailable [phone] Desi Swenson NP Unavailable [phone] Encounter Details Date Type Department Care Team Description 05/02/2014 Fire Supervisor Report Medical Records [address] [place] [address] Vipin Cowart Social History Tobacco Use Types [...] Type Specialty Care Team Description 04/29/2027 Fire Supervisor Report Abstract, Provider documented as of this encounter Visit Diagnoses Not on filedocumented in this encounter Care Teams Bulb Farmworker Relationship Specialty Start Date End Date Brett Velásquez MD PCP - General Internal Medicine 10/29/11 06/19/15 Keisha Chavez MD [address] [place] [address] PCP - General Internal Medicine 06/20/15 04/20/16 Brett Velásquez MD PCP - General Internal Medicine 04/21/16 01/25/22 Brett Velásquez MD PCP - General Internal Medicine 01/26/22 02/15/22 Wayne Jaimes [address] [place], [place] [address] PCP - General Internal Medicine 02/16/22 Reilly Baker MD, PHD [address] [place] [address] Surgeon Neurosurgery 01/20/22 Dafne Hilton MD [address] [place] [address] Specialist Cardiology 10/13/22 Desi Swenson, ILDA [address] [place] [address] Cardiology 02/29/24 documented as of this encounter
--- OUTSIDE RECORDS SUMMARY | 2024-10-24 16:35 | XMS_ITS ---
Author Organization [facility] Address [address] [facility] [address] [place] [address] Care Team Providers Care Clerical Production Worker Name Role Phone Wayne Jaimes MD Primary Care Provider DESI Burks Unavailable [phone] Allergies No Known Allergies REASON FOR VISIT [...] Active Diclofenac Sodium 1 % as directed Skin Fitter ally place 1 g onto the skin [...] N/A Encounters Encounter Location Date Provider Diagnosis [facility] [address] [address] 07/10/2024 DESI LI Onychomycosis B35.1 ; Calcium [...] Date Notes Efinaconazole 10 % 1 application Skin Fitter ally Once a day for 90 days [...] Name:DESI LI, 01/10/2025 02:45:00 PM, [address] [facility] [address], [place], [address], Medications Administered Medication Instructions Date of Administration Dosage Notes dexAMETHasone Sod Phosphate PF 07/10/2024 0.5 m L Kenalog 07/10/2024 0.5 mL Progress Notes * Mckinley LEWISOB:1955 ([age] yo M)Acc No.[id number]:07/10/2024 Progress Note Patient:Laina SANDOVAL Provider:?Desi Li DPM :1955???Age:68 Y???Sex:Male Nael e:07/10/2024 Address:[address] [place], [place] [address] Pcp:Wayne Jaimes MD Subjective: * Chief Complaints: [...] bilaterally, protective sensation intact 10/10 with 5.07 Blue Bell Alisha bilaterally, vibratory sensation with tuning fork [...] RT J1100 INJ DEXAMETHASONE SODIM PHOSHATE 1 DPT8010 INJ TRIAMCINOLONE ACETONIDE 10 MG * Follow Up:?3 Months * Billing Information: * Visit Code:? 45411 Office Visit, Est Pt., Level 4. Modifiers: 25 * Procedure Codes:? DRAIN/INJECT, SMALL JOINT/BURSA. Modifiers: RT J1100 INJ DEXAMETHASONE SODIM PHOSHATE 1 MG. J3301 INJ TRIAMCINOLONE ACETONIDE 10 MG. * Sign off status: Completed true * Provider:?Desi Li DPM Date:? 07/10/2024 Generated for Tatiana lema/Nilsa/Saraitting on:?10/24/2024 04:34 PM EDT History and Physical Notes * [...] bilaterally, protective sensation intact 10/10 with 5.07 Blue Bell Alisha bilaterally, vibratory sensation with tuning fork [...]
--- OUTSIDE RECORDS SUMMARY | 2024-10-24 16:35 | XMS_ITS | Encounter Summary ---
Author Organization [facility] Address [address] [place] [address] Care Team Providers Care Dull Coat Mill Operator Name Role Phone Reilly Baker MD, PHD Unavailable Unava ilWayne Osborne Primary Care Provider [phone] Dafne Hilton MD Unavailable [phone] Desi Swenson NP Unavailable [phone] Encounter Details Date Type Department Care Team Description 05/06/2023 Orders Only Medical Records [address] [place] [address] Ankita Mckeon NP Social History Tobacco Use [...] Date Type Specialty Care Team Description 04/29/2027 Cabinetmaker Supervisor Report Abstract, Provider documented as of this encounter Procedures Procedure Name Priority Date/Time Associated Diagnosis Comments OUTSIDE LAB Routine 04/05/2023 documented in this encounter Results * OUTSIDE LAB (04/05/2023) Ankita Mckeon NP LAB documented in this encounter Visit Diagnoses Not on filedocumented in this encounter Care Teams Dull Coat Mill Operator Relationship Specialty Start Date End Date Wayne Jaimes [address] [place] [address] PCP - General Internal Medicine 02/16/22 Reilly Baker MD, PHD Surgeon Neurosurgery 01/20/22 Dafne Hilton MD [address] [place] [address] Specialist Cardiology 10/13/22 Desi Swenson NP [address] [place] [address] Cardiology 02/29/24 documented as of this encounter
--- OUTSIDE RECORDS SUMMARY | 2024-10-24 16:35 | XMS_ITS | Data Portability ---
Author Organization [place] [facility] Address [address] [address] Care Team Providers Care Guidance Consultant Name Role Phone SUMMER LOWE Primary Care [...] speech therapy referra l 2024 025 [email or web address] [facility], [address] [place] [address] [place], [address], 09/19/2024 14:07:54 speech therapy referra l - Appt 05/26 @ 8:30am 2023 [facility], [address], [address], [place], [address], 05/01/2024 16:23:00 Procedures None recorde d. Surgeries None recorde d. Imaging None recorde d. Medication Orders famotid ine 20 mg tablet 2024 025 [facility], [address] [place] [address], [address], 08/10/2024 15:05:18 nystati n 100,000 unit/mL oral suspens ion 2023 024 [facility], [address] [place] [address], [address], 05/10/2024 16:22:57 nystati n 100,000 unit/mL oral suspens ion 2023 024 [facility], [address], 04/21/2024 14:42:09 Patient TargetsNo targets recorded. Patient InstructionsNo instructions recorded. Reason for Referral Appt 05/26 @ 8:30am Referring Physician: Eneida Mccall Otolaryngology, Encounter Date: 04/21/2024 Referring Physician: Eneida Mccall Otolaryngology, Encounter Date: 08/10/2024 Problems Name Problem SNOMED Code Status Onset Date Resolution Date Notes Provider Name and Address Organization Details Recorded Time Sensorine ural hearing loss of bilateral ears 521303892 Active 2019 Sensorine ural hearing loss, bilateral ; Note: Date Diagnosed : 02/26/2020 3:32 PM (H90.3) Note: Date Diagnosed : 02/26/2020 3:32 PM (H90.3) Not Available [facility] 00:53:14 Stomatiti s 40610805 Active 2020 Oral thrush; Note: Date Diagnosed : 04/14/2021 11:22 AM (B37.0) Not Available 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, unilatera l; Note: Date Diagnosed : 12/12/2019 3:31 PM (J38.01) Not Available [facility] 4 02:18:19 Dysphagia 43436542 Active 2022 Dysphagia , unspecifi ed; Note: Date Diagnosed : 10/27/2021 12:05 PM (R13.10) ; Start Date : 2 Other dysphagia ; Note: Date Diagnosed : 04/07/2023 1:44 PM (R13.19) Not Available [facility] 4 02:19:19 Benign paroxysma l positiona l vertigo 970134576 Active 2019 Benign paroxysma l vertigo, left ear; Note: Date Diagnosed : 02/26/2020 3:32 PM (H81.12) Not Available [facility] 4 02:18:20 Cough 49350536 Active 2015 Cough, unspecifi ed; Note: Changed from R05 to R05.9 ( 2 2:10 PM) , Date Diagnosed : 09/04/2015 3:10 PM (R05) Not Available [facility] 4 02:19:08 Oropharyn geal dysphagia 43105242 Active 2023 Dysphagia , oropharyn geal phase; Note: Date Diagnosed : 09/16/2023 1:19 PM (R13.12) Not Available [facility] 02:19:08 Hemoptysi s 65174626 Active 2023 ENEIDA MCCALL MD [address] [place] [address],[place] [address], [place], [address] , [place] [facility] 14:33:59 Chronic sore throat 897575851 Active 2023 ENEIDA MCCALL MD [address] [place] [address], [place], [address] , [place] [facility] 14:34:04 Chronic hoarsenes s 43519131218 05 Active 2023 ENEIDA MCCALL MD [address] [place] [address],[place] [address], [place], [address] , [place] [facility] 14:42:59 Problem Notes None recorded. Procedures Surgical History Date Name Laterality Status Provider Name and Address Organization Details Recorded Time 08/10/19 25 FFL_RE completed ENEIDA MCCALL MD [address] [place] [address],[place] [address], [place], [address], [place] [facility] 08/10/2024 15:02:15 04/21/20 24 FFL_RE completed ENEIDA MCCALL MD [address] [place] [address],[place] [address], [place], [address], [place] [facility] 04/21/2024 14:41:39 transurethral prostatectomy completed Bibi Neal [place] [facility] 05/10/2024 14:05:40 subtotal thyroidectomy completed Bibi Neal [place] [facility] 05/10/2024 14:05:53 Imaging Results None recorded. Procedure Notes None recorded. Medical Equipment None Reported. Allergies No known drug allergies Medications Name Sig Start Date Stop Date Status Note LastModified by Organization Details LastModified Time losartan 50 mg tablet 05/06 completed Medicati on ID: [id number] B rand Name: losartan Send Method: E-Prescr [...] gram tablet 05/06 completed Medicati on ID: [id number] D uration Value: 7 Brand Name: valacycl [...] mucosal jelly 05/10 completed Medicati on ID: [id number] D uration Value: 14 Brand Name: lidocain [...] mg capsule 05/06 completed Medicati on ID: [id number] D uration Value: 90 Brand Name: tamsulos in Send Method: E-Prescr ibed Sub s Allowed: subs OK Speci al Instruct ion: TAKE ONE CAPSULE DAILY Me dication GenericN jay: tamsulos in Not Available Not Available Not Available pantopraz ole 40 mg tablet,de layed release 07/12 completed Medicati on ID: [id number] D uration Value: 30 Brand Name: pantopra [...] by mouth 07/12 completed Medicati on ID: [id number] D uration Value: 30 Prescri bed By [...] oral powder 05/10 completed Medicati on ID: [id number] D uration Value: 30 Brand Name: polyethy [...] layed release 12/11 completed Medicati on ID: [id number] P devonte d By Name: Trevon Gee [...] both nostrils 10/17 completed Medicati on ID: [id number] P rescribe d By Name: Trevon Gee rd, nd Name: Flonase Allergy Relief S end Method: E-Prescr ibed Sub s Allowed: subs OK Medic ationGen ericName : Flonase Allergy Relief Not Available Not Available Not Available Vitals Date Recorded Body height Body mass index (BMI) Body weight Provider Name and Address Organization Details Last Updated DateTime 04/21/2024 167.64 cm 27 kg/m2 00963.93 g Aakash [place] [facility] 04/21/2024 14:00:43 Date Recorded Body height Body weight Provider Name and Address Organization Details Last Updated DateTime 05/10/2024 167.64 cm 41384.93 g Bibi Neal [place] [facility] 05/10/2024 14:01:54 Date Recorded Body height Provider Name an d Address Organization Details Last Updated DateTime 08/10/2024 167.64 cm Aakash [place] [facility] 08/10/2024 14:29:36 Social History None recorded. Functional Status None recorded. Mental Status None recorded. Family History Nothing Reported. Medical History Condition Response Hypertension Y Sleep Disorder Y GERD/Reflux Y Past Encounters Encounter ID Performer Location Encounter Start Date Encounter Closed Date Diagnosis/Indication Diagnosis SNOMED-CT Code Diagnosis ICD10 Code Diagnosis Note [id number] ENEIDA MCCALL MD [facility] [address] [address] 04/21/2024 13:44:06 04/21/2024 15:41:33 Hemoptysis 98201283 R04.2 resolved. laryngosco py negative today for bleeding Chronic sore throat 2754 78211 J31.2 likely due to thrush. Gastroesop hageal reflux disease without esophagitis 357396014 K21.9 continue esomeprazo le Candidiasis of mouth 797 26610 B37.0 FFL notable for montez in base of tongue. LIkely secondary to steroid inhalers. Will treat with nystatin. I asked him to call if not improved. No tumors on laryngosoc py. Chronic hoarseness 58150 92781 105 R49.0 will make voice therapy referral to [facility] [id number] VELASQUEZ GONZALEZ MD [facility] [address] [place] [address] 05/10/2024 13:45:35 05/10/2024 15:10:38 Candidiasis of mouth 16205491 B37.0 Chronic hoarseness 94072 38881 105 R49.0 Chronic sore throat 2754 59308 J31.2 Gastroesop hageal reflux disease without esophagitis 170783459 K21.9 [id number] ENEIDA MCCALL MD [facility] [address] [place] [address] 08/10/2024 13:56:29 08/10/2024 15:05:58 Chronic sore throat 508328706 J31.2 no evidence of thrush. he has breakthrou gh heartburn and I think the soreness is due to LPR. I will add dual therapy for reflux with famotidine in addition to his PPI. Gastroesop hageal reflux disease without esophagitis 932382471 K21.9 begin dual thearpy Candidiasis of mouth 797 72774 B37.0 resolved Chronic hoarseness 81241 63505 105 R49.0 will make voice therapy referral to [facility] since he could not be seen at [facility], gave reassuranc e no vocal cord lesions. Health Concerns Section Related Observation LastModified by Organization Detai ls LastModified Time None Recorded Concern Status LastModified by Organization Details LastModified Time None Recorded Advance Directives Directive None Recorded Payers Encounter Date Sequence Insurance Name Policy Number Policy Ayala Covered Member ID Ayala Member ID Guarantor Name 04/21/[address] [facility] Laina Lewis [id number] Laina Lewis 05/10/[address] [facility] Laina Lewis [id number] Laina Lewis 08/10/[address] [facility] Laina Lewis [id number] Laina Lewis Notes Date Note Type Note [...] in September 2020. ENEIDA MCCALL MD [address] [facility] [address], [place], [address], [place] [facility] 04/21/2024 14:43:45 05/10/2024 text/html 68-year-old male [...] [place]. Normal MBS. VELASQUEZ QUINTERO MD [address] [facility] [address], [place], [address], [place] [facility] 05/11/2024 12:34:14 08/10/2024 text/html He has [...] FOL in September 2020. ENEIDA MCCALL MD [address] [place] [address], [place], [address], [facility] 08/10/2024 15:05:10
--- OUTSIDE RECORDS SUMMARY | 2024-10-24 16:35 | XMS_ITS | Encounter Summary ---
Author Organization [facility] Address [address] [place] [address] Care Team Providers Care Decorator Consultant Name Role Phone Brett Velásquez MD Primary Care Provider Reilly Stewart MD, PHD Unavailable Unava Brett Villegas MD Primary Care Provider Wayne Dickson Primary Care Provider Dafne Hilton MD Unavailable [phone] Desi Swenson NP Unavailable [phone] Encounter Details Date Type Department Care Team Description 01/20/2021 Yarn Texturing Machine Operator Report Medical Records [address] [place] [address] Desi Li DPM Social History Tobacco Use [...] Date Type Specialty Care Team Description 04/29/2027 Yarn Texturing Machine Operator Report Abstract, Provider documented as of this encounter Visit Diagnoses Not on filedocumented in this encounter Care Teams Decorator Consultant Relationship Specialty Start Date End Date Brett Velásquez MD PCP - General Internal Medicine 04/21/16 01/25/22 Brett Velásquez MD PCP - General Internal Medicine 01/26/22 02/15/22 Wayne Jaimes [address] [place] [address] PCP - General Internal Medicine 02/16/22 Reilly Baker MD, PHD Surgeon Neurosurgery 01/20/22 Dafne Hilton MD [address] [place] [address] Specialist Cardiology 10/13/22 Desi wSenson NP [address] [place] [address] Cardiology 02/29/24 documented as of this encounter
--- OUTSIDE RECORDS SUMMARY | 2024-10-24 16:35 | XMS_ITS | Encounter Summary ---
Author Organization [facility] Address [address] [place] [address] Care Team Providers Care Laboratory Chemist Name Role Phone Brett Velásquez MD Primary Care Provider Keisha Luna MD Primary Care Provider [phone] Brett Velásquez MD Primary Care Provider Reilly Stewart MD, PHD Unavailable Unava ilable Brett Velásquez MD Primary Care Provider Wayne Dickson Primary Care Provider [phone] Dafne Hilton MD Unavailable [phone] Desi Swenson NP Unavailable [phone] Encounter Details Date Type Department Care Team Description 06/06/2014 Manager Internet Retails Sales Report Medical Records [address] [place] [address] Rehab[facility] [place] Social History Tobacco Use Types Packs/Day Years [...] Type Specialty Care Team Description 04/29/2027 Manager Internet Retails Sales Report Abstract, Provider documented as of this encounter Visit Diagnoses Not on filedocumented in this encounter Care Teams Laboratory Chemist Relationship Specialty Start Date End Date Brett Velásquez MD PCP - General Internal Medicine 10/29/11 06/19/15 Keisha Chavez MD [address] [place] [address] PCP - General Internal Medicine 06/20/15 04/20/16 Brett Velásquez MD PCP - General Internal Medicine 04/21/16 01/25/22 Brett Velásquez MD PCP - General Internal Medicine 01/26/22 02/15/22 Wayne Jaimes [address] [place] [address] PCP - General Internal Medicine 02/16/22 Reilly Baker MD, PHD [address] [place] [address] Surgeon Neurosurgery 01/20/22 Dafne Hilton MD [address] [place] [address] Specialist Cardiology 10/13/22 Desi Swenson NP [address] [place] [address] Cardiology 02/29/24 documented as of this encounter
--- OUTSIDE RECORDS SUMMARY | 2024-10-24 16:35 | XMS_ITS | Encounter Summary ---
Author Organization [facility] Address [address] [place] [address] Care Team Providers Care Industrial Court Magistrate Name Role Phone Reilly Baker MD, PHD Unavailable Unava ilable Wayne Jaimes Primary Care Provider [phone] Dafne Hilton MD Unavailable [phone] Desi Swenson NP Unavailable Encounter Details Date Type Department Care Team Description 07/30/2023 [facility] [address] [facility] [address] [place] [address] Ena Whipple PA-C [address] [address] Social History Tobacco Use Types Packs/Day Years [...] Type Specialty Care Team Description 04/29/2027 Supervisor Pipeline Report Abstract, Provider documented as of this encounter Visit Diagnoses Not on filedocumented in this encounter Care Teams Industrial Court Magistrate Relationship Specialty Start Date End Date Wayne Jaimes [address] [place] [address] PCP - General Internal Medicine 02/16/22 Reilly Baker MD, PHD Surgeon Neurosurgery 01/20/22 Dafne Hliton MD [address] [place] [address] Specialist Cardiology 10/13/22 Desi Swenson NP [address] [place] [address] Cardiology 02/29/24 documented as of this encounter
--- OUTSIDE RECORDS SUMMARY | 2024-10-24 16:35 | XMS_ITS | Encounter Summary ---
Author Organization [facility] Address [address] [place] [address] Care Team Providers Care Program Services Planner Name Role Phone Reilly Baker MD, PHD Unavailable Unava Wayne Blackman Primary Care Provider Dafne Hilton MD Unavailable [phone] Desi Swenson NP Unavailable [phone] Reason for Visit * Reason Onset Date Comments Abdominal Pain 07/30/2023 Encounter Details Date Type Department Care Team Description 07/30/2023 Telephone Pulmonology - [place] [address] [facility] [address] [place] [address] Kevin Oliva PA-C 175 [facility] [address] [place] [address] Abdominal Pain Social History Tobacco Use Types [...] other consideration could be to see ifMylanta [id number] might be helpful. Hopefully we can see [...] 2:20 PM EST Patient came into the [facility] unaware appt. 07/30/2023 had been cancelled, states he is having abdominal pain after he eats, please advise documented in this encounter Plan of Treatment Upcoming Encounters Date Type Specialty Care Team Description 04/29/2027 Trumpet Teacher Report Abstract, Provider documented as of this encounter Visit Diagnoses Not on filedocumented in this encounter Care Teams Program Services Planner Relationship Specialty Start Date End Date Wayne Jaimes [address] [place] [address] PCP - General Internal Medicine 02/16/22 Reilly Baker MD, PHD Surgeon Neurosurgery 01/20/22 Dafne Hilton MD [address] [place] [address] Specialist Cardiology 10/13/22 Desi Swenson NP [address] [place] [address] Cardiology 02/29/24 documented as of this encounter
--- OUTSIDE RECORDS SUMMARY | 2024-10-24 16:35 | XMS_ITS | Encounter Summary ---
Author Organization [facility] Address [address] [place] [address] Care Team Providers Care Formal Waiter/Waitress Name Role Phone Reilly Baker MD, PHD Unavailable Unava ilable Wayne Jaimes Primary Care Provider [phone] Dafne Hilton MD Unavailable [phone] Desi Swenson NP Unavailable [phone] Encounter Details Date Type Department Care Team Description 05/05/2023 Cfo Controller Report Medical Records [address] [place] [address] Aleksandar Huggins MD Social History Tobacco Use [...] Date Type Specialty Care Team Description 04/29/2027 Cfo Controller Report Abstract, Provider documented as of this encounter Visit Diagnoses Not on filedocumented in this encounter Care Teams Formal Waiter/Waitress Relationship Specialty Start Date End Date Wayne Jaimes [address] [place], [place] [address] PCP - General Internal Medicine 02/16/22 Reilly Baker MD, PHD Surgeon Neurosurgery 01/20/22 Dafne Hilton MD [address] [place] [address] Specialist Cardiology 10/13/22 Desi Swenson NP [address] [place], [place] [address] Cardiology 02/29/24 documented as of this encounter
[2024-10-26 21:39] LABS: Thyroid Peroxidase Antibodies <1 IU/mL (<9)
== END 2024-10-24 13:31 | disposition home or self-care (01) ==
LOC: HO.LAB 13:30
PROVIDERS: PCP Internal Medicine; Visit Provider Student in an Organized Health Care Education/Training Program
DX: E04.1 Nontoxic single thyroid nodule (principal)
CPT/HCPCS: 36415; 84439; 84443; 86376

== ENCOUNTER 2024-10-26 14:24 | Outpatient (AMB) | payer OTHER, SELFPAY ==
[2024-10-26 14:26] VITALS: BP 112/64; PULSE 53; O2SAT 97; BMI 26.4
--- NOTE | 2024-10-26 14:26 | A.OFFVIS_ITS ---
Vital Signs 3 10/26/24 14:26 Height 5 ft 4 in Weight 154 lb 1.65 oz BMI 26.4 BP 112/64 Blood Pressure Location Lt brachial Position Sitting Pulse 53 Pulse Source Pulse Oximeter Pulse Oximetry (%) 97 Oxygen Delivery Method Room Air Intake Visit Reasons: history of malignant neoplasm of thyroid Intake Note: Patient present today for history of malignant neoplasm of thyroid office visit. Refrigeration Repair Supervisor Required: Yes Refrigeration Repair Supervisor Language: Turkish Accompanied by: Self / Same As Patient Allergies No Known Allergies Allergy (Verified 10/26/24 14:29) HPI Comments Details: 68-year-old male with history of thyroid nodules who is s/p left partial thyroidectomy with pathology showing Hurthle cell adenoma (benign) coming in today for fup History significant for CAD. HPI from prior visit Patient describes he was referred to endocrinology somewhere in [place] (PCP Katie Jaimes [address] [facility] [facility] [address], [place] [address]) for thyroid nodules. Subsequently fna x2 reports abnormal results. History of thyroid nodules, s/p left partial thyroidectomy Dr Salamanca July 2019. Surgery done at [facility], Pathology was benign (Hurthle cell adenoma) Not on levothyroxine Patient currently endorses constipation. Reports intermittent palpitation, anxiety, Denies mood changes, changes in appearance of eyes or vision changes, tremors, increased diaphoresis or dry skin. ?Report chronic low energy. feels cold while sleeping, Reports lost about 20 lbs post surgery since 2019 but has gained most of it back. Endorses difficulty swallowing for the past year. follows with CHRISTIAN MATUTE. Saw Kevin Oliva 12/27/2023. 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 History of gastric erosions, esophagitis. Patient denies any difficulty swallowing, pain on swallowing or voice changes or difficulty breathing. Patient denies any history of childhood neck radiation. Denies having ever used lithium, amiodarone or biotin supplements. Born and raised in [place]. Moved here 2006. 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 Older sister had thyroid cancer. No family history of thyroid disease other than that. Interval history Denies any compressive sx Says he has had some weight fluctuations up and down Reports tremors while sleeping?? 09/13/2024 labs showed mildly elevated TSH at 5.46, normal free T4 of 0.93, however labs repeated 10/24/2024 most recently showed normal TSH of 1.67, free T4 of 0.90 Physical exam General: sitting comfortably in bed in no acute distress HEENT: normocephalic/atraumatic, moist oral mucosa Neck: Well healed surgical scar noted from partial thyroidectomy Cardiac: normal heart sounds Pulm: normal breath sounds B/L, no added breath sounds Abd: not distended, no tenderness Extremities: no edema, no signs of myxedema Neuro: AAO x3, Speech: normal, no facial droop, moving all 4 extremities Skin: no rash Laboratory Tests 02/08/24 02/08/24 15:30 Unknown TSH 1.61 Thyroglobulin 10.1 H Thyroglobulin Antibody <1 Laboratory Tests 02/08/24 02/08/24 09/13/24 15:30 Unknown 06:57 TSH 1.61 5.46 H Thyroglobulin 10.1 H Free T4 0.93 Thyroglobulin Antibody <1 10/24/24 13:37 TSH 1.67 Thyroglobulin Free T4 0.90 Thyroglobulin Antibody [facility] Medical History Finger laceration with complication Encounter to establish care Trigger finger Thyroid nodule Surgical History S/P cardiac cath H/O colonoscopy History of esophagogastroduodenoscopy (EGD) Hx of cataract extraction History of thyroid surgery History of prostate surgery Family History Sister Arthritis Mother Heart disease Lung cancer Father Hypertension Sister Thyroid cancer Social History Household Members: Spouse Housing: Apartment Are you a primary interior plant caretaker to a significant other at home: No Do you presently have visiting nurse or other home services: No Alcohol intake: never Patient Tobacco Use Status: Never used Tobacco e-Cigarette/Vaping Use: Never Used Second Hand Smoke Exposure: No service: No Current occupational status: employed 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 Salamanca with pathology showing benign follicular adenoma. He does not have any right-sided thyroid nodules, ultrasound of the thyroid done most recently in September 2024 showed a normal right side of the thyroid gland. he has not required any levothyroxine post surgery. He has some nonspecific symptoms, but he is biochemically euthyroid. At this point he does not need follow up with the endocrinology. Primary care can repeat thyroid function tests annually. Plan: -no need for further endocrine follow up. -primary care physician can repeat TSH with a reflex free T4 annually or if patient has any concerning symptoms, if abnormal he can be referred back to us. Plan See above Coding Level of Care Code Est Pt Level 3 (54107) Diagnoses Thyroid Nodule E04.1
--- OUTSIDE RECORDS SUMMARY | 2024-10-26 17:26 | XMS_ITS | Encounter Summary ---
Author Organization [email or web address] Address [address] [place] [address] [address] [address] Care Team Providers Care Bean Snipper Name Role Phone Unavailable Primary Care Provider Unavailabl e Encounter Details Date Type Department Care Team (Latest Contact Info) Description 01/23/2022 Abstract [facility] CONVERSIONS Dental, Provider, DDS [...]
--- OUTSIDE RECORDS SUMMARY | 2024-10-26 17:26 | XMS_ITS ---
Author Organization [facility] Address [address] [facility] [address] [place] [address] Care Team Providers Care Tilting Head Band Sawyer Name Role Phone Wayne Jaimes MD Primary Care Provider DESI Burks Unavailable [phone] Allergies No Known Allergies REASON FOR VISIT [...] Active Diclofenac Sodium 1 % as directed Physical Aerodynamicist ally place 1 g onto the skin [...] N/A Encounters Encounter Location Date Provider Diagnosis [facility] [address] [address] 07/10/2024 DESI LI Onychomycosis B35.1 ; Calcium [...] Date Notes Efinaconazole 10 % 1 application Physical Aerodynamicist ally Once a day for 90 days [...] Name:DESI LI, 01/10/2025 02:45:00 PM, [address] [facility] [address], [place], [address], Medications Administered Medication Instructions Date of Administration Dosage Notes dexAMETHasone Sod Phosphate PF 07/10/2024 0.5 m L Kenalog 07/10/2024 0.5 mL Progress Notes * Mckinley LEWISOB:1955 (5 0 yo M)Acc No.[id number]:07/10/2024 Progress Note Patient:Laina SANDOVAL Provider:?Desi Li DPM :1955???Age:68 Y???Sex:Male Nael e:07/10/2024 Address:[address] [place], [place] [address] Pcp:Wayne Jaimes MD Subjective: * Chief Complaints: [...] bilaterally, protective sensation intact 10/10 with 5.07 [place] Alisha bilaterally, vibratory sensation with tuning fork [...] RT J1100 INJ DEXAMETHASONE SODIM PHOSHATE 1 [id number] INJ TRIAMCINOLONE ACETONIDE 10 MG * Follow Up:?3 Months * Billing Information: * Visit Code:? 35056 Office Visit, Est Pt., Level 4. Modifiers: 25 * Procedure Codes:? DRAIN/INJECT, SMALL JOINT/BURSA. Modifiers: RT J1100 INJ DEXAMETHASONE SODIM PHOSHATE 1 MG. J3301 INJ TRIAMCINOLONE ACETONIDE 10 MG. * Sign off status: Completed true * Provider:?Desi Li DPM Date:? 07/10/2024 Generated for Tatiana lema/Nilsa/Saraitting on:?10/26/2024 05:26 PM EDT History and Physical Notes * [...] bilaterally, protective sensation intact 10/10 with 5.07 [place] Alisha bilaterally, vibratory sensation with tuning fork [...]
--- OUTSIDE RECORDS SUMMARY | 2024-10-26 17:26 | XMS_ITS ---
Author Organization [facility] Address [address] [facility] [address] [place] [address] Care Team Providers Care Optometric Tech Name Role Phone Wayne Jaimes MD Primary Care Provider DESI Burks Unavailable [phone] Allergies No Known Allergies REASON FOR VISIT [...] Not-Taking Diclofenac Sodium 1 % as directed [employer] ally place 1 g onto the skin [...] W/U Status Risk Notes Problem Lumbar radiculopathy ([id number]) Lumbar radiculopat hy, right (M54.16) Active confirmed Procedures Procedure Date Ordered Date Performed Result Body Sit e DRAIN/INJECT, SMALL JOINT/BURSA 04/10/2024 N/A Encounters Encounter Location Date Provider Diagnosis [facility] [address] [address] 04/10/2024 DESI LI Onychomycosis B35.1 ; Calcium [...] Date Notes Efinaconazole 10 % 1 application [employer] ally Once a day for 90 days [...] Name:DESI LI, 01/10/2025 02:45:00 PM, [address], [address], Medications Administered Medication Instructions Date of Administration Dosage Notes dexAMETHasone Sod Phosphate PF 04/10/2024 0.5 m L Kenalog 04/10/2024 0.5 mL Progress Notes * Mckinley LEWISOB:1955 (5 0 yo M)Acc No.[id number]:04/10/2024 Progress Note Patient:?Laina LEWIS Provider:?Desi Li DPM :1955???Age:68 Y???Sex:Male Nael e:04/10/2024 Address:[address] [place], [place] [phone] Pcp:Wayne Jaimes MD Subjective: * Chief Complaints: [...] bilaterally, protective sensation intact 10/10 with 5.07 [place] Alisha bilaterally, vibratory sensation with tuning fork [...] RT J1100 INJ DEXAMETHASONE SODIM PHOSHATE 1 [id number] INJ TRIAMCINOLONE ACETONIDE 10 MG * Follow Up:?3 Months * Billing Information: * Visit Code:? 54693 Office Visit, Est Pt., Level 4. Modifiers: 25 * Procedure Codes:? 36551 DRAIN/INJECT, SMALL JOINT/BURSA. Modifiers: RT J1100 INJ DEXAMETHASONE SODIM PHOSHATE 1 MG. J3301 INJ TRIAMCINOLONE ACETONIDE 10 MG. * Sign off status: Completed true * Provider:?Desi Li DPM Date:? 04/10/2024 Generated for Tatiana lema/Nilsa/Glo on:?10/26/2024 05:26 PM EDT History and Physical [...] bilaterally, protective sensation intact 10/10 with 5.07 [place] Alisha bilaterally, vibratory sensation with tuning fork [...]
--- OUTSIDE RECORDS SUMMARY | 2024-10-26 17:26 | XMS_ITS | Clinical Summary ---
Author Organization [facility] [employer] Address [address] [place] [address] [address] [place] [address] Care Team Providers Care Straightener Hand Name Role Phone Unavailable Primary Care Provider [...]
--- OUTSIDE RECORDS SUMMARY | 2024-10-26 17:26 | XMS_ITS | Clinical Summary ---
Author Organization [facility] Address [address] [place] [address] Care Team Providers Care Restaurant Greeter Name Role Phone Brett Velásquez MD Primary Care Provider [phone] Allergies No known active allergies Medications Medication [...] age to complete this topic Care Teams Restaurant Greeter Relationship Specialty Start Date End Date Brett Velásquez MD PCP - General Internal Medicine 10/20/17
--- OUTSIDE RECORDS SUMMARY | 2024-10-26 17:26 | XMS_ITS | Encounter Summary ---
Author Organization [employer] Address [address] [place] [address] [address], [place] [address] Care Team Providers Care Retail Advertising Account Executive Name Role Phone Unavailable Primary Care Provider Unavailabl e Encounter Details Date Type Department Care Team (Latest Contact Info) Description 01/15/2021 Abstract [facility] CONVERSIONS Dental, Provider, DDS Social History [...]
--- OUTSIDE RECORDS SUMMARY | 2024-10-26 17:26 | XMS_ITS | Clinical Summary ---
Author Organization [facility] Address [address] [facility] [address] [place] [address] Phone Care Team Providers Care Body Maker Machine Setter Name Role Phone Shelbie Upton MD Primary Care Provider [phone] Allergies No known active allergies Medications albuterol [...] complete this topic Insurance B ANDREI KHAN [id number] [place] [facility] ([id number]) Andrew Diaz ([id number]) Medicaid [place] Care Teams Body Maker Machine Setter Relationship Specialty Start Date End Date Shelbie Upton MD [address] [place] [address], [address] [place] [address] PCP - General Internal Medicine 02/04/24
--- OUTSIDE RECORDS SUMMARY | 2024-10-26 17:27 | XMS_ITS | Clinical Summary ---
Author Organization [address] [facility] Address [address] [place] [address] Phone Care Team Providers Care Curing Room Worker Name Role Phone Wayne Jaimes MD [...] Dizziness 04/30/2023 Coronary artery disease invo lving [place] coronary artery of [place] heart with angina pectoris ([facility] V24) 12/17/2022 ST elevation (STEMI) myocard ial infarction ([facility] V24, [facility] V28) 12/11/2022 Benign prostatic hyperplasia without lower [...] 3:30 PM EDT Office Visit Orthopedic Surgery [facility] [address] [facility] [address] [place] [address] Wen Herrmann NP Primary osteoarthritis of right knee (Primary Dx); Primary osteoarthritis of left knee 08/08/2024 12:45 PM EST Anesthesia Event [facility] [address] [place] [phone] Bolivar Palmer MD 08/08/2024 11:38 AM EST - 08/08/2024 11:59 PM EST Hospital Encounter [facility] [address] [place] [phone] Vladislav Antunez DO Chang, Bolivar Barrow MD Radiculopathy, lumbar region Discharge Disposition: Home or Self Care 08/08/2024 6:21 AM EST - 08/08/2024 11:59 PM EST Hospital Encounter [facility] X[facility] [address] [place] [phone] Pain Discharge Disposition: Home or Self Care [...] loose stools Coronary artery disease invo lving [place] coronary artery of [place] heart with angina pectoris (CMS/HCC V24) 12/17/2022 DX:Coronary artery disease involving [place] coronary artery of [place] heart with angina pectoris (HCC) Esophageal dysmotility DX:Esopha geal dysmotility Gastritis DX:Gastritis Dysphagia DX:Dysphagia Esophageal dysmotility DX:Esopha geal dysmotility Colon polyps DX:Colon polyps History of MO (myocardial infarction) DX:History of MO (myocardial infarction) Hyperlipidemia 03/06/2024 DX:Hyperlipidemi a JENNIFER [...] 3:15 PM EDT Office Visit Nephrology - [address] [address] Eduard Mccormick MD [address] [facility] [address] [place] [address] 11/23/2024 3:00 PM EDT Procedure visit Orthopedic Surgery [place] [address] [phone] Wen Herrmann NP [address] [address] 11/30/2024 3:00 PM EDT Procedure visit Orthopedic Surgery [place] [address] [phone] Wen Herrmann NP [address] [address] 12/07/2024 9:00 AM EDT Procedure visit Orthopedic [place] [address] [phone] Wen Herrmann NP [address] [address] Health Maintenance Due Date Last Done Comments Medicare Annual Wellness Visit 06/18/2022 Social Influencers of Health Screening 06/18/2022 Colorectal Cancer Screening: Colonoscopy 02/15/2024 02/14/2019 Depression Screening 04/06/2024 04/06/2023 COVID-19 Vaccine (8 - Pfizer risk season) 2024 03/08/2024, 04/13/2023, 04/01/2022, Additional history exists Hypertension/CHF/CAD Annual BMP Blood Test 03/06/2025 03/06/2024, [...] topic RSV Immunization Adult Patients Completed 05/17/2023 Influenza Vaccine Completed 04/28/2024, , 04/20/2022, Additional [...] complete this topic Insurance [employer] MEDICARE [employer] MEDICAID Care Teams Curing Room Worker Relationship Specialty Start Date End Date Wayne Jaimes MD [address] [place] [address] PCP - General Internal Medicine 02/16/22
--- OUTSIDE RECORDS SUMMARY | 2024-10-26 17:27 | XMS_ITS ---
Author Organization [facility] Address [address] [facility] [address] [place] [address] Care Team Providers Care Jeep Driver Name Role Phone Wayne Jaimes MD Primary Care Provider DESI Burks Unavailable [phone] Allergies No Known Allergies REASON FOR VISIT [...] Active Diclofenac Sodium 1 % as directed Quoter ally place 1 g onto the skin [...] 10/11/2024 Encounters Encounter Location Date Provider Diagnosis [facility] [address] [facility] [address] [place] [address] 10/11/2024 DESI LI Onychomycosis B35.1 ; Calcium [...] days 10/11/2024 Efinaconazole 10 % 1 application Quoter ally Once a day for 90 days [...] Name:DESI LI, 01/10/2025 02:45:00 PM, [address] [place] [address], [place], [address], Progress Notes * Mckinley LEWISOB:1955 (5 0 yo M)Acc No.[id number]:10/11/2024 Progress Note Patient:?Laina LEWIS Provider:?Desi Li DPM :1955???Age:68 Y???Sex:Male Nael e:10/11/2024 Address:[address] [place], [place] [phone] Pcp:Wayne Jaimes MD Subjective: * Chief Complaints: [...] bilaterally, protective sensation intact 10/10 with 5.07 [place] Alisha bilaterally, vibratory sensation with tuning fork [...] Months * Billing Information: * Visit Code:? 09376 Office Visit, Est Pt., Level 4. * Procedure Codes:? * Sign off status: Completed true * Provider:?Desi Li DPM Date:? 10/11/2024 Generated for Tatiana lema/Nilsa/Kamillesmitting on:?10/26/2024 05:27 PM EDT History and Physical Notes * [...] bilaterally, protective sensation intact 10/10 with 5.07 [place] Alisha bilaterally, vibratory sensation with tuning fork [...]
--- OUTSIDE RECORDS SUMMARY | 2024-10-26 17:27 | XMS_ITS | Data Portability ---
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 Surgeries None recorde d. Imaging None recorde d. Medication Orders famotid ine 20 mg tablet 2024 025 [facility], [address] [place] [address], [address], 08/10/2024 15:05:18 nystati n 100,000 unit/mL oral suspens ion 2023 024 [facility], [address] [place] [address], [address], 05/10/2024 16:22:57 nystati n 100,000 unit/mL oral suspens ion 2023 024 [facility], [address], 04/21/2024 14:42:09 Patient TargetsNo targets recorded. Patient InstructionsNo instructions recorded. Reason for Referral Appt 05/26 @ 8:30am Referring Physician: Eneida Mccall Otolaryngology, Encounter Date: 04/21/2024 Referring Physician: Eneida Mccall Otolaryngology, Encounter Date: 08/10/2024 Problems Name Problem SNOMED Code Status Onset Date Resolution Date Notes Provider Name and Address Organization Details Recorded Time Sensorine ural hearing loss of bilateral ears 802718359 Active 2019 Sensorine ural hearing loss, bilateral ; Note: Date Diagnosed : 02/26/2020 3:32 PM (H90.3) Note: Date Diagnosed : 02/26/2020 3:32 PM (H90.3) Not Available [facility] 00:53:14 Stomatiti s 12316154 Active 2020 Oral thrush; Note: Date Diagnosed : 04/14/2021 11:22 AM (B37.0) Not Available [facility] 4 02:18:55 Candidias is of mouth 47883867 Active 2020 Oral thrush; Note: Date Diagnosed : 04/14/2021 11:22 AM (B37.0) Not Available [facility] 4 02:18:55 Gastroeso phageal reflux disease without esophagit is 624561936 Active 2015 Gastro-es ophageal reflux disease without esophagit is; Note: Date Diagnosed : 07/22/2015 2:46 PM (K21.9) Not Available [facility] 4 02:19:18 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, unilatera l; Note: Date Diagnosed : 12/12/2019 3:31 PM (J38.01) Not Available [facility] 4 02:18:19 Dysphagia 97218319 Active 2022 Dysphagia , unspecifi ed; Note: Date Diagnosed : 10/27/2021 12:05 PM (R13.10) ; Start Date : 2 Other dysphagia ; Note: Date Diagnosed : 04/07/2023 1:44 PM (R13.19) Not Available [facility] 4 02:19:19 Benign paroxysma l positiona l vertigo 030018928 Active 2019 Benign paroxysma l vertigo, left ear; Note: Date Diagnosed : 02/26/2020 3:32 PM (H81.12) Not Available [facility] 4 02:18:20 Cough 60011179 Active 2015 Cough, unspecifi ed; Note: Changed from R05 to R05.9 ( 2 2:10 PM) , Date Diagnosed : 09/04/2015 3:10 PM (R05) Not Available [facility] 4 02:19:08 Oropharyn geal dysphagia 87097328 Active 2023 Dysphagia , oropharyn geal phase; Note: Date Diagnosed : 09/16/2023 1:19 PM (R13.12) Not Available [facility] 02:19:08 Hemoptysi s 69108774 Active 2023 ENEIDA MCCALL MD [address] [place] [address],[place] [address], [place], [address] , [place] - [facility] 14:33:59 Chronic sore throat 025827491 Active 2023 ENEIDA MCCALL MD [address] [place] [address], [place], [address] , [place] [facility] 14:34:04 Chronic hoarsenes s 42174286579 05 Active 2023 ENEIDA MCCALL MD [address] [place] [address],[place] [address], [place], [address] , [place] [facility] 14:42:59 Problem Notes None recorded. Procedures Surgical History Date Name Laterality Status Provider Name and Address Organization Details Recorded Time 08/10/19 25 FFL_RE completed ENEIDA MCCALL MD [address] [place] [address],[place] [address], [place], [address], [place] - [facility] 08/10/2024 15:02:15 04/21/20 24 FFL_RE completed ENEIDA MCCALL MD [address] [place] [address],[place] [address], [place], [address], [place] - [facility] 04/21/2024 14:41:39 transurethral prostatectomy completed Bibi Neal [place] - [facility] 05/10/2024 14:05:40 subtotal thyroidectomy completed Bibi Neal [place] - [facility] 05/10/2024 14:05:53 Imaging Results None recorded. Procedure Notes None recorded. Medical Equipment None Reported. Allergies No known drug allergies Medications Name Sig Start Date Stop Date Status Note LastModified by Organization Details LastModified Time losartan 50 mg tablet 05/06 completed Medicati on ID: [id number] B rand Name: losartan Send Method: E-Prescr [...] gram tablet 05/06 completed Medicati on ID: [id number] D uration Value: 7 Brand Name: valacycl [...] mucosal jelly 05/10 completed Medicati on ID: [id number] D uration Value: 14 Brand Name: lidocain [...] mg capsule 05/06 completed Medicati on ID: [id number] D uration Value: 90 Brand Name: tamsulos in Send Method: E-Prescr ibed Sub s Allowed: subs OK Speci al Instruct ion: TAKE ONE CAPSULE DAILY Me dication GenericN jay: tamsulos in Not Available Not Available Not Available pantopraz ole 40 mg tablet,de layed release 07/12 completed Medicati on ID: [id number] D uration Value: 30 Brand Name: pantopra [...] by mouth 07/12 completed Medicati on ID: [id number] D uration Value: 30 Prescri bed By [...] oral powder 05/10 completed Medicati on ID: [id number] D uration Value: 30 Brand Name: polyethy [...] layed release 12/11 completed Medicati on ID: [id number] P devonte d By Name: Trevon Gee [...] both nostrils 10/17 completed Medicati on ID: [id number] P rescribe d By Name: Trevon Gee rd, nd Name: Flonase Allergy Relief S end Method: E-Prescr ibed Sub s Allowed: subs OK Medic ationGen ericName : Flonase Allergy Relief Not Available Not Available Not Available Vitals Date Recorded Body height Body mass index (BMI) Body weight Provider Name and Address Organization Details Last Updated DateTime 04/21/2024 167.64 cm 27 kg/m2 54166.93 g Aakash Weaver [place] - [facility] 04/21/2024 14:00:43 Date Recorded Body height Body weight Provider Name and Address Organization Details Last Updated DateTime 05/10/2024 167.64 cm 23151.93 g Bibi Neal [place] [facility] 05/10/2024 14:01:54 Date Recorded Body height Provider Name an d Address Organization Details Last Updated DateTime 08/10/2024 167.64 cm Aakash Weaver [place] [facility] 08/10/2024 14:29:36 Social History None recorded. Functional Status None recorded. Mental Status None recorded. Family History Nothing Reported. Medical History Condition Response Hypertension Y Sleep Disorder Y GERD/Reflux Y Past Encounters Encounter ID Performer Location Encounter Start Date Encounter Closed Date Diagnosis/Indication Diagnosis SNOMED-CT Code Diagnosis ICD10 Code Diagnosis Note [id number] ENEIDA MCCALL MD [facility] [address] [address] 04/21/2024 13:44:06 04/21/2024 15:41:33 Hemoptysis 92436373 R04.2 resolved. laryngosco py negative today for bleeding Chronic sore throat 2754 97335 J31.2 likely due to thrush. Gastroesop hageal reflux disease without esophagitis 849277264 K21.9 continue esomeprazo le Candidiasis of mouth 797 76192 B37.0 FFL notable for montez in base of tongue. LIkely secondary to steroid inhalers. Will treat with nystatin. I asked him to call if not improved. No tumors on laryngosoc py. Chronic hoarseness 98120 20654 105 R49.0 will make voice therapy referral to [facility] [id number] VELASQUEZ GONZALEZ MD [facility] [address] [place] [address] 05/10/2024 13:45:35 05/10/2024 15:10:38 Candidiasis of mouth 62292168 B37.0 Chronic hoarseness 52856 38834 105 R49.0 Chronic sore throat 2754 03020 J31.2 Gastroesop hageal reflux disease without esophagitis 413556275 K21.9 [id number] ENEIDA MCCALL MD [facility] [address] [place] [address] 08/10/2024 13:56:29 08/10/2024 15:05:58 Chronic sore throat 025073246 J31.2 no evidence of thrush. he has breakthrou gh heartburn and I think the soreness is due to LPR. I will add dual therapy for reflux with famotidine in addition to his PPI. Gastroesop hageal reflux disease without esophagitis 624397810 K21.9 begin dual thearpy Candidiasis of mouth 797 40318 B37.0 resolved Chronic hoarseness 12277 28988 105 R49.0 will make voice therapy referral to [facility] since he could not be seen at [facility], gave reassuranc e no vocal cord lesions. Health Concerns Section Related Observation LastModified by Organization Detai ls LastModified Time None Recorded Concern Status LastModified by Organization Details LastModified Time None Recorded Advance Directives Directive None Recorded Payers Encounter Date Sequence Insurance Name Policy Number Policy Ayala Covered Member ID Ayala Member ID Guarantor Name 04/21/2024 1 [facility] Laina Lewis [id number] Laina Lewis 05/10/2024 1 [facility] Laina Lewis [id number] Laina Lewis 08/10/2024 1 [facility] Laina Lewis [id number] Laina Lewis Notes Date Note Type Note [...] in September 2020. ENEIDA MCCALL MD 100 [facility] [address], [place], [address], [place] [facility] [place]. Normal MBS. VELASQUEZ QUINTERO MD 100 [facility] [address], [place], [address], [place] [facility] [place] in September 2020. ENEIDA MCCALL MD [address] [place] [address], [place], [address], [facility] - [facility] 08/10/2024 15:05:10
--- OUTSIDE RECORDS SUMMARY | 2024-10-26 17:27 | XMS_ITS | Patient Health Record ---
Author Organization [facility] Address [address] [facility] [address] [place] [address] Care Team Prov[address] Care Court Bailiff Name Role Phone Wayne Jaimes MD Primary Care Provider JORGE L Burks Unavailable [phone] Allergies No Known Allergies Reason For Referral [...] Active Diclofenac Sodium 1 % as directed Cash Applications Clerk ally place 1 g onto the skin [...] Problem Status W/U Status Risk Notes Problem 298579445636559 Primary osteoarthritis, right ankle and foot (M19.071) Active confirmed Problem 739219782 Primary osteoarthritis, left 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) Active confirmed Problem 281513536 Equinus contracture of right ankle (M24.571) Active confirmed Problem 9815747 Psoriasis (L40.9) Active confirmed Problem Lumbar radiculopathy (079955146) Lumbar radiculopathy, right (M54.16) Active confirmed Problem 978447944 Calcium pyrophosphate deposition disease (CPPD) (M11.20) Active [...] N/A Encounters Encounter Location Date Provider Diagnosis [facility] [address] [address] 12/24/2023 JORGE L REDDY Onychomycosis B35.1 ; Calcium pyrophosphate deposition disease (CPPD) M11.20 ; Psoriasis L40.9 ; Hallux limitus of left foot M20.5X2 ; Hallux limitus of right foot M20.5X1 and Lumbar radiculopathy, right M54.16 [facility] [address] [address] 04/10/2024 JORGE L REDDY Onychomycosis B35.1 ; Calcium pyrophosphate deposition disease (CPPD) M11.20 ; Psoriasis L40.9 ; Hallux limitus of left foot M20.5X2 ; Hallux limitus of right foot M20.5X1 ; Lumbar radiculopathy, right M54.16 ; Achilles tendinitis, right leg M76.61 and Achilles tendinitis, left leg M76.62 [facility] [address] [address] 07/10/2024 JORGE L REDDY Onychomycosis B35.1 ; Calcium pyrophosphate deposition disease (CPPD) M11.20 ; Psoriasis L40.9 ; Hallux limitus of left foot M20.5X2 ; Hallux limitus of right foot M20.5X1 ; Lumbar radiculopathy, right M54.16 ; Achilles tendinitis, right leg M76.61 and Achilles tendinitis, left leg M76.62 [facility] [address] [facility] [address] [place] [address] 10/11/2024 JORGE L BARRY Onychomycosis B35.1 ; [...] L REDDY, 01/10/2025 02:45:00 PM, [address] [facility] [address], [place], [address], Insurance Providers Payer Name Payer Address Payer Phone Subscriber Number Group Number Insured Name Patient Relationship to Insured Coverage Start Date Coverage End Date [employer] [address] [address] [place] [address] [id number] [facility] - patient is the [...]
== END 2024-10-26 14:39 | disposition home or self-care (01) ==
LOC: HO.ENCR 14:25
PROVIDERS: PCP Internal Medicine; Visit Provider Student in an Organized Health Care Education/Training Program
DX: E04.1 Nontoxic single thyroid nodule (principal)
CPT/HCPCS: 99213

== ENCOUNTER → 2024-10-26 14:24 | Outpatient (BNVA) | payer OTHER, SELFPAY | PROVIDERS: PCP Internal Medicine; Visit Provider Student in an Organized Health Care Education/Training Program | DX: E04.1 Nontoxic single thyroid nodule (principal) | CPT/HCPCS: 99212 ==

== ENCOUNTER 2024-11-21 15:43 | Outpatient (AMB) | payer OTHER, SELFPAY ==
--- NOTE | 2024-11-21 15:59 | AM.OFFVISMDC ---
Intake Vital Signs 11/21/24 16:25 Height 5 ft 4 in Weight 147 lb 6 oz BMI 25.3 BP 118/62 Blood Pressure Location Lt brachial Position Sitting Respiration 12 Pulse 98 Pulse Source Pulse Oximeter Intake Visit Reasons: mawv Intake Note: Medical wellness visit Infantry Assaultman Required: Yes Infantry Assaultman Language: Nepali Infantry Assaultman Services: Infantry Assaultman Present Infantry Assaultman Name: [id number] Soraya Allergies No Known Allergies Allergy (Verified 11/23/24 15:58) HPI HPI Comments History of Present Illness Details 68 year old male with a past medical history of CAD s/p PCI, dilation ascending aortic aneurysm, hypertension, esophageal stenosis, GERD with esophagitis, JENNIFER intolerant to CPAP, Hurtle cell neoplasm s/p partial thyroidectomy 2019 presenting for AWV. 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 Patient underwent cardiac catheterization with Dr. Ortega at [facility] after abnormal stress testing and is now status post stent placement to the LAD. September 22 On losartan 25mg, lipitor, ASA, brilinta. Following with vascular [facility] GI: Was Following with [facility] GI transferred to [facility]. Last testing no need for dilation. Previously has had stenosis in the esophagus that required dilation. History of gastric erosions, esophagitis. Urology: Follows with Dr Huggins. BPH s/p TURP. History of renal cysts. History of hematuria with negative work up. MSK: continues follow up at [facility] treatment center. Hand pain b/l, b/l knee pain, foot pain, low back pain, h/o gout. History of polyarthralgia, positive JOE. Saw rheumatology. Did not seem to evidence of inflammatory arthritis Endocrine: Following with [facility], Dr Guzman. History of thyroid nodules, s/p partial/total thyroidectomy Dr Salamanca 2019. Pathology Hurtle cell. Had at home sleep test ordered by Dr Benjamin. Nephrology: History of proteinuria Colonoscopy-02/14/2019. ROS see HPI PHYSICAL EXAM: GENERAL: Alert and oriented x 3. NAD EYES: EOMI. Anicteric. HENT: Moist mucous membranes. No scleral icterus. No cervical lymphadenopathy. LUNGS: Clear to auscultation bilaterally. CARDIOVASCULAR: Regular rate and rhythm. No murmur. No JVD. ABDOMEN: Soft, non-tender +bs EXTREMITIES: No edema. Non-tender. SKIN: Lateral fingerpad of left ring finger with eschar formation. No exudate NEUROLOGIC: No focal neurological deficits. CN II-XII grossly intact PSYCHIATRIC: Cooperative. Appropriate mood and affect [facility] Medical History Acute gouty arthritis Perianal dermatitis SOB (shortness of breath) on exertion Finger laceration with complication Encounter to establish care Trigger finger Thyroid nodule Surgical History S/P cardiac cath H/O colonoscopy History of esophagogastroduodenoscopy (EGD) Hx of cataract extraction History of thyroid surgery History of prostate surgery Family History Sister Arthritis Mother Heart disease Lung cancer Father Hypertension Sister Thyroid cancer Social History Household Members: Spouse Housing: Apartment Are you a primary career and technology education teacher to a significant other at home: No Do you presently have visiting nurse or other home services: No Alcohol intake: never Patient Tobacco Use Status: Never used Tobacco e-Cigarette/Vaping Use: Never Used Second Hand Smoke Exposure: No service: No Current occupational status: employed 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 Current occupational exposures/hazards: No Cognitive needs: No Hearing needs: No Vision needs: No Questionnaire Medicare Wellness Checkup What [age] What gender do you identify with?: male During the past 4 weeks, how much have you been bothered by emotional problems such as feeling anxious, depressed, irritable, sad or downhearted, and blue?: not at all During the past 4 weeks, has your physical & emotional health limited your social activities with family, friends, neighbors, or groups?: not at all During the past 4 weeks, how much bodily pain have you generally had?: severe pain During the past 4 weeks, was someone available to help you if you needed & wanted help?: yes, a little ( helps) During the past 4 weeks, what was the hardest physical activity you could do for at least 2 minutes?: very light (Has a lot of back pain) Can you get to places out of walking distance without help? (For eg., can you travel alone on buses, taxis or drive your car?): Yes Can you go shopping for groceries or clothes without someone's help?: Yes Can you prepare your own meals?: Yes Can you do your housework without help?: Yes Because of any health problems, do you need the help of another person with your personal care needs such as eating, bathing, dressing or getting around the house?: Yes Can you handle your own money without help?: Yes During the past 4 weeks, how would you rate your health in general?: poor During the past 4 weeks how have things been going for you?: very bad; could hardly be worse Are you having difficulties driving your car?: no Do you always fasten your seat belt when you are in a car?: yes, usually During past 4 weeks, have you been bothered by the following: never: Sexual problems?, Teeth or denture problems?, Problems using the telephone? and Tiredness or fatigue? and sometimes: Falling or dizzy when standing up (Dizziness started 2 months ago.) and Trouble eating well? Have you fallen 2 or more times in the past year?: No Are you afraid of falling?: Yes Are you a smoker?: no During the past 4 weeks, how many drinks of wine, beer, or other alcoholic beverages did you have?: no alcohol at all Do you exercise for about 20 minutes 3 or more times a week?: yes, some of the time (Heart rehab twice a week. ) Have you been given information to help with the following?: yes: Keeping track of your medications? and no: Hazards in your house that might hurt you? How often do you have trouble taking medicines the way you have been told to take them?: I always take medicine as prescribed How confident are you that you can control & manage most of your health problems?: not very confident What is your race?: Mini Mental State Exam (MMSE) Orientation What is the (year) (season) (date) (day) (month)?: year (2024), season (spring), date (11/21/14), day and month Where are we (state) (county) (town or city) (hospital) (floor)?: state ([place]), town or city ([place]), hospital/clinic ([facility]) and floor (first) Registration Name of 3 unrelated objects clearly and slowly, then ask patient to repeat all 3 of them. (1st repeat determines score. Make sure they can repeat all three): object 1 (ball ), object 2 (flag) and object 3 (tree) Attention & Calculation (CHOOSE ONE) Spell WORLD backwards (DLROW): 5 letters Recall Ask patient to repeat the 3 items from question #3.: object 1 (ball) and object 2 (tree) Language Show patient a wristwatch & ask what it is. Repeat for pencil.: watch and pencil Give patient a blank piece of paper & ask to write a sentence. Score if it contains a noun & verb.: sentence contains subject and verb Ask patient to copy figure of intersecting pentagons exactly. Score if all 10 angles & 2 intersects are included.: all 10 angles present & 2 are intersected Score Score: 23 Activity of Daily Living Bathing - sponge bath, tub bath or shower: receives no assistance (gets in/out by self, if usual bathing means Dressing - getting clothes from closets & drawers, including inner/outer garments & fasteners.: gets clothes & gets completely dressed without help Toileting - going to the 'toilet room' for urine/bowel elimination & cleaning self/arranging clothes: goes to toilet room, cleans self, arranges clothes without help Transfer: moves in & out of bed and chair without help (may use support object) Continence: controls urination/bowel movements completely by self Feeding: feeds self without help Total Score: 0 Information obtained from: patient Using telephone: independent Traveling: independent Shopping: independent Preparing meals: independent Housework: independent Taking medicine: independent Managing money: independent Physical Exam Vital Signs: Last Vital Signs Pulse 98 11/21/24 16:25 Resp 12 11/21/24 16:25 BP 118/62 11/21/24 16:25 BMI result Body Mass Index 25.3 Assessment & Plan Assessment & Plan (1) Encounter for initial annual wellness visit (AWV) in Medicare patient: Code(s): Z00.00 - Encounter for general adult medical examination without abnormal findings (2) Hypertension: Code(s): I10 - Essential (primary) hypertension Qualifiers: Hypertension type: primary hypertension Qualified Code(s): I10 - Essential (primary) hypertension (3) Pseudoaneurysm: Comment: Right radial artery Code(s): I72.9 - Aneurysm of unspecified site (4) GERD with esophagitis: Code(s): K21.00 - Gastro-esophageal reflux disease with esophagitis, without bleeding Qualifiers: Esophagitis bleeding: unspecified whether hemorrhage Qualified Code(s): K21.00 - Gastro-esophageal reflux disease with esophagitis, without bleeding (5) CAD (coronary artery disease): Code(s): I25.10 - Atherosclerotic heart disease of [place] coronary artery without angina pectoris Qualifiers: Coronary Disease-Associated Artery/Lesion type: [place] artery [place] vs. transplanted heart: [place] heart Associated angina: without angina Qualified Code(s): I25.10 - Atherosclerotic heart disease of [place] coronary artery without angina pectoris Plan 69 year old for MW HRA reviewed Care team per HPI Labs ordered Orders: Orders Complete Blood Count Auto Diff 6 Months I10 - Essential (primary) hypertension, K27.9 - Peptic ulcer, site unspecified, unspecified as acute or chronic, without hemorrhage or perforation, K59.04 - Chronic idiopathic constipation, M17.0 - Bilateral primary osteoarthritis of knee Comprehensive Met. Panel 6 Months I10 - Essential (primary) hypertension, K27.9 - Peptic ulcer, site unspecified, unspecified as acute or chronic, without hemorrhage or perforation, K59.04 - Chronic idiopathic constipation, M17.0 - Bilateral primary osteoarthritis of knee Lipid Panel 6 Months I10 - Essential (primary) hypertension, K27.9 - Peptic ulcer, site unspecified, unspecified as acute or chronic, without hemorrhage or perforation, K59.04 - Chronic idiopathic constipation, M17.0 - Bilateral primary osteoarthritis of knee TSH reflex Free T4 6 Months I10 - Essential (primary) hypertension, K27.9 - Peptic ulcer, site unspecified, unspecified as acute or chronic, without hemorrhage or perforation, K59.04 - Chronic idiopathic constipation, M17.0 - Bilateral primary osteoarthritis of knee Medications: New magnesium hydroxide 600 mg PO .twice weekly 90 tabs 0RF Coding Level of Care Code Medicare Subsequent (G0439) Diagnoses Encounter for initial annual wellness visit (AWV) in Medicare patient Z00.00 Primary hypertension I10 Hypertension type: primary hypertension Pseudoaneurysm I72.9 Gastroesophageal reflux disease with esophagitis, unspecified whether hemorrhage K21.00 Esophagitis bleeding: unspecified whether hemorrhage Coronary artery disease involving [place] coronary artery of [place] heart without angina pectoris I25.10 Coronary Disease-Associated Artery/Lesion type: [place] artery [place] vs. transplanted heart: [place] heart Associated angina: without angina
--- OUTSIDE RECORDS SUMMARY | 2024-11-21 16:22 | XMS_ITS | Encounter Summary ---
Author Organization [facility] Address [address] [place] [address] Care Team Providers Care Grain Processor Name Role Phone Brett Velásquez MD Primary Care Provider Keisha Luna MD Primary Care Provider [phone] Brett Velásquez MD Primary Care Provider Reilly Stewart MD, PHD Unavailable Unava ilBrett Bailon MD Primary Care Provider Wayne Dickson Primary Care Provider [phone] Dafne Hilton MD Unavailable [phone] Desi Swenson NP Unavailable [phone] Encounter Details Date Type Department Care Team Description 02/06/2015 Chief Business Development Officer Report Medical Records [address] [place] [address] Center[facility] [address] [place] [address] Social History Tobacco Use Types Packs/Day Years [...] Type Specialty Care Team Description 04/29/2027 Chief Business Development Officer Report Abstract, Provider documented as of this encounter Visit Diagnoses Not on filedocumented in this encounter Care Teams Grain Processor Relationship Specialty Start Date End Date Brett Velásquez MD PCP - General Internal Medicine 10/29/11 06/19/15 Keisha Chavez MD [address] [place], [place] [id number] PCP - General Internal Medicine 06/20/15 04/20/16 Brett Velásquez MD PCP - General Internal Medicine 04/21/16 01/25/22 Brett Velásquez MD PCP - General Internal Medicine 01/26/22 02/15/22 Wayne Jaimes [address] [place] [address] PCP - General Internal Medicine 02/16/22 Reilly Baker MD, PHD [address] [place] [address] Surgeon Neurosurgery 01/20/22 Dafne Hilton MD [address] [place] [address] Specialist Cardiology 10/13/22 Desi Swenson NP [address] [place] [address] Cardiology 02/29/24 documented as of this encounter
--- OUTSIDE RECORDS SUMMARY | 2024-11-21 16:22 | XMS_ITS | Encounter Summary ---
Author Organization [facility] Address [address] [place] [address] Care Team Providers Care Unit Director Name Role Phone Brett Velásquez MD Primary Care Provider Keisha Luna MD Primary Care Provider [phone] Brett Velásquez MD Primary Care Provider Reilly Stewart MD, PHD Unavailable Unava ilable Brett Velásquez MD Primary Care Provider Wayne Dickson Primary Care Provider [phone] Dafne Hilton MD Unavailable [phone] Desi Swenson NP Unavailable [phone] Encounter Details Date Type Department Care Team Description 06/28/2012 Rug Underlay Machine Operator Report Medical Records [address] [place] [address] Shaquille Chandra Social History Tobacco Use Types [...] Date Type Specialty Care Team Description 04/29/2027 Rug Underlay Machine Operator Report Abstract, Provider documented as of this encounter Visit Diagnoses Not on filedocumented in this encounter Care Teams Unit Director Relationship Specialty Start Date End Date Brett Velásquez MD PCP - General Internal Medicine 10/29/11 06/19/15 Keisha Cahvez MD [address] [place] [address] PCP - General Internal Medicine 06/20/15 04/20/16 Brett Velásquez MD PCP - General Internal Medicine 04/21/16 01/25/22 Brett Velásquez MD PCP - General Internal Medicine 01/26/22 02/15/22 Wayne Jaimes [address] [place] [address] PCP - General Internal Medicine 02/16/22 Reilly Baker MD, PHD [address] [place] [address] Surgeon Neurosurgery 01/20/22 Dafne Hilton MD [address] [place] [address] Specialist Cardiology 10/13/22 Desi Swenson NP [address] [place] [address] Cardiology 02/29/24 documented as of this encounter
--- OUTSIDE RECORDS SUMMARY | 2024-11-21 16:22 | XMS_ITS | Encounter Summary ---
Author Organization [facility] Address [address] [place] [address] Care Team Providers Care Medical Claims Processor Name Role Phone Brett Velásquez MD Primary Care Provider Keisha Luna MD Primary Care Provider [phone] Brett Velásquez MD Primary Care Provider Reilly Stewart MD, PHD Unavailable Unava ilable Brett Velásquez MD Primary Care Provider Wayne Dickson Primary Care Provider [phone] Dafne Hilton MD Unavailable [phone] Desi Swenson NP Unavailable [phone] Encounter Details Date Type Department Care Team Description 05/17/2012 Route Delivery Service Driver Report Medical Records [address] [place] [address] Shaquille Chandra Social History Tobacco Use Types [...] Date Type Specialty Care Team Description 04/29/2027 Route Delivery Service Driver Report Abstract, Provider documented as of this encounter Visit Diagnoses Not on filedocumented in this encounter Care Teams Medical Claims Processor Relationship Specialty Start Date End Date Brett Velásquez MD PCP - General Internal Medicine 10/29/11 06/19/15 Keisha Chavez MD [address] [place] [address] PCP - General Internal Medicine 06/20/15 04/20/16 Brett Velásquez MD PCP - General Internal Medicine 04/21/16 01/25/22 Brett Velásquez MD PCP - General Internal Medicine 01/26/22 02/15/22 Wayne Jaimes [address] [place] [address] PCP - General Internal Medicine 02/16/22 Reilly Baker MD, PHD [address] [place] [address] Surgeon Neurosurgery 01/20/22 Dafne Hilton MD [address] [place] [address] Specialist Cardiology 10/13/22 Desi Swenson NP [address] [place] [address] Cardiology 02/29/24 documented as of this encounter
--- OUTSIDE RECORDS SUMMARY | 2024-11-21 16:22 | XMS_ITS | Encounter Summary ---
Author Organization [facility] Address [address] [place] [address] Care Team Providers Care Social Media Analyst Name Role Phone Brett Velásquez MD Primary Care Provider Keisha Luna MD Primary Care Provider [phone] Brett Velásquez MD Primary Care Provider Reilly Stewart MD, PHD Unavailable Unava ilable Brett Velásquez MD Primary Care Provider Wayne Dickson Primary Care Provider [phone] Dafne Hilton MD Unavailable [phone] Desi Swenson NP Unavailable [phone] Encounter Details Date Type Department Care Team Description 02/19/2012 Crystal Finisher Report Medical Records [address] [place] [address] Shaquille Chandra Social History Tobacco Use Types [...] Date Type Specialty Care Team Description 04/29/2027 Crystal Finisher Report Abstract, Provider documented as of this encounter Visit Diagnoses Not on filedocumented in this encounter Care Teams Social Media Analyst Relationship Specialty Start Date End Date Brett Velásquez MD PCP - General Internal Medicine 10/29/11 06/19/15 Keisha Chavez MD [address] [place] [address] PCP - General Internal Medicine 06/20/15 04/20/16 Brett Velásquez MD PCP - General Internal Medicine 04/21/16 01/25/22 Brett Velásquez MD PCP - General Internal Medicine 01/26/22 02/15/22 Wayne Jaimes [address] [place] [address] PCP - General Internal Medicine 02/16/22 Reilly Baker MD, PHD [address] [place] [address] Surgeon Neurosurgery 01/20/22 Dafne Hilton MD [address] [place] [address] Specialist Cardiology 10/13/22 Desi Swenson NP [address] [place] [address] Cardiology 02/29/24 documented as of this encounter
--- OUTSIDE RECORDS SUMMARY | 2024-11-21 16:22 | XMS_ITS | Encounter Summary ---
Author Organization [facility] Address [address] [place] [address] Care Team Providers Care Land Surveyor Assistant Name Role Phone Brett Velásquez MD Primary Care Provider Keisha Luna MD Primary Care Provider [phone] Brett Velásquez MD Primary Care Provider Reilly Stewart MD, PHD Unavailable Unava ilBrett Bailon MD Primary Care Provider Wayne Dickson Primary Care Provider [phone] Dafne Hilton MD Unavailable [phone] Desi Swenson NP Unavailable [phone] Encounter Details Date Type Department Care Team Description 03/27/2015 Piece Jobber Report Medical Records [address] [place] [address] Vitor Mclean MD [address] [place] [id number] Social History Tobacco Use Types Packs/Day [...] Date Type Specialty Care Team Description 04/29/2027 Piece Jobber Report Abstract, Provider documented as of this encounter Visit Diagnoses Not on filedocumented in this encounter Care Teams Land Surveyor Assistant Relationship Specialty Start Date End Date Brett Velásquez MD PCP - General Internal Medicine 10/29/11 06/19/15 Keisha Chavez MD [address] [place] [address] PCP - General Internal Medicine 06/20/15 04/20/16 Brett Velásquez MD PCP - General Internal Medicine 04/21/16 01/25/22 Brett Velásquez MD PCP - General Internal Medicine 01/26/22 02/15/22 Wayne Jaimes [address] [place] [address] PCP - General Internal Medicine 02/16/22 Reilly Baker MD, PHD [address] [place] [address] Surgeon Neurosurgery 01/20/22 Dafne Hilton MD [address] [place] [address] Specialist Cardiology 10/13/22 Desi Swenson NP [address] [place] [address] Cardiology 02/29/24 documented as of this encounter
--- OUTSIDE RECORDS SUMMARY | 2024-11-21 16:22 | XMS_ITS | Clinical Summary ---
Author Organization [facility] Address [address] [facility] [address] [place] [address] Phone Care Team Providers Care Forging Press Operator Name Role Phone Shelbie Upton MD Primary Care Provider [phone] Allergies No known active allergies Medications albuterol [...] Huggins Gout 12/17/2011 Overview (02/03/2024): Possible diagnosis Encounters Date Type Department Care Team Description 11/14/2024 Orders Only [facility] [address] [address] Eduard Mccormick MD from Last 3 Months Family History Medical History Relation Comments Hypertension [...] on patient's age to complete this topic Procedures Procedure Name Priority Date/Time Associated Diagnosis Comments PROTEIN / CREATININE RATIO, URINE Routine 11/14/2024 1:45 PM EDT CREATININE, SERUM Routine 11/14/2024 1:4 5 PM EDT ELECTROLYTE PANEL Routine 11/14/2024 1:4 5 PM EDT BUN Routine 11/14/2024 1:45 PM EDT from Last 3 Months Results * Protein, Total, Random Urine w/Creatinine (Protein/Creat Ratio) (11/14/2024 1:45 PM EDT) Protein, Ur 9 mg/dL [facility] Urine Protein/Creati nine Ratio 0.11 <=0.20 mg/mg creat [facility] Creatinine, Urine 81.0 mg/dL [facility] 11/14/2024 1:45 PM EDT 11/14/2024 4:16 PM EDT Eduard Mccormick MD LAB URINE ORDERABLES Final Resu lt Performing Organization Address City/[facility]/ZIP Co de Phone Number [facility] [address] [place] [address] * BUN (11/14/2024 1:45 PM EDT) BUN 21 5 - 25 mg/dL [facility] 11/14/2024 1:45 PM EDT 11/14/2024 4:17 PM EDT Eduard Mccormick MD LAB BLOOD ORDERABLES Final Resu lt [facility] [address] [place] [address] * Creatinine, serum (11/14/2024 1:45 PM EDT) Pathologist [facility] Creatinine Serum 0.95 0.70 - 1.30 mg/dL [facility] eGFR 86 >=60 mL/min/1. 73m2 [facility] Comment:Calculation based on the Chronic Kidney Disease Epidemiology Collaboration (CKD-EPI) equation refit without adjustment for race. 11/14/2024 1:45 PM EDT 11/14/2024 4:17 PM EDT Eduard Mccormick MD LAB BLOOD ORDERABLES Final Resu lt Performing Organization Address [facility] de Phone Number [facility] [address] [place] [address] * Electrolyte panel (11/14/2024 1:45 PM EDT) Sodium 138 133 - 145 mmol/L [facility] Potassium 3.9 3.5 - 5.5 mmol/L [facility] Chloride 103 96 - 110 mmol/L [facility] Bicarbonate (CO2) 28 21 - 32 mmol/L [facility] Anion Gap 7 3 - 11 [facility] 11/14/2024 1:45 PM EDT 11/14/2024 4:17 PM EDT Eduard Mccormick MD LAB BLOOD ORDERABLES Final Resu lt Performing Organization Address [facility] de Phone Number [facility] [address] [place] [address] from Last 3 Months Insurance [place] Andrew Diaz ([id number]) Andrew Diaz ([id number]) Medicaid [place] Care Teams Forging Press Operator Relationship Specialty Start Date End Date Shelbie Upton MD [address] [place] [address], [address] [place], [place] [id number] PCP - General Internal Medicine 02/04/24
--- OUTSIDE RECORDS SUMMARY | 2024-11-21 16:22 | XMS_ITS | Encounter Summary ---
Author Organization [facility] Address [address] [facility] [place] [address] Care Team Providers Care Compliance Monitor Name Role Phone Keisha Chavez MD Primary Care Provider Brett Velásquez MD Primary Care Provider Reilly Stewart MD, PHD Unavailable Unawa ilBrett Bailon MD Primary Care Provider Wayne Dickson Primary Care Provider [phone] Dafne Hliton MD Unavailable Desi Swenson NP Unavailable [phone] Encounter Details Date Type Department Care Team Description 11/18/2015 Release of Information Medical Records [address] [place] [address] Abstract, Provider Social History Tobacco Use Types [...] Type Specialty Care Team Description 04/29/2027 Relief Map Modeler Report Abstract, Provider documented as of this encounter Visit Diagnoses Not on filedocumented in this encounter Care Teams Compliance Monitor Relationship Specialty Start Date End Date Keisha Chavez MD [address] [place] [address] PCP - General Internal Medicine 06/20/15 04/20/16 Bertt Velásquez MD [address] [place] [address] PCP - General Internal Medicine 04/21/16 01/25/22 Brett Velásquez MD [address] [place] [address] PCP - General Internal Medicine 01/26/22 02/15/22 Wayne Jaimes [address] [place] [address] PCP - General Internal Medicine 02/16/22 Reilly Baker MD, PHD [address] [place] [address] Surgeon Neurosurgery 01/20/22 Dafne Hilton MD [address] [place] [address] Specialist Cardiology 10/13/22 Desi Swenson NP [address] [place] [address] Cardiology 02/29/24 documented as of this encounter
--- OUTSIDE RECORDS SUMMARY | 2024-11-21 16:22 | XMS_ITS | Encounter Summary ---
Author Organization [facility] Address [address] [place] [address] Care Team Providers Care Wrist Closer Name Role Phone Brett Velásquez MD Primary Care Provider Reilly Stweart MD, PHD Unavailable UnaBrett Davis MD Primary Care Provider Wayne Dickson Primary Care Provider [phone] Dafne Hilton MD Unavailable [phone] Desi Swenson NP Unavailable [phone] Encounter Details Date Type Department Care Team Description 11/27/2019 Refill Nephrology - [place] [address] [place] [address] Eduard Mccormick MD [address] [place] [address] Social History Tobacco Use Types Packs/Day Years [...] Date Type Specialty Care Team Description 04/29/2027 Creel Selector Report Abstract, Provider documented as of this encounter Visit Diagnoses Not on filedocumented in this encounter Care Teams Wrist Closer Relationship Specialty Start Date End Date Brett Velásquez MD PCP - General Internal Medicine 04/21/16 01/25/22 Brett Velásquez MD PCP - General Internal Medicine 01/26/22 02/15/22 Wayne Jaimes [address] [place] [address] PCP - General Internal Medicine 02/16/22 Reilly Baker MD, PHD Surgeon Neurosurgery 01/20/22 Dafne Hilton MD [address] [place], [place] [id number] Specialist Cardiology 10/13/22 Desi Swenson NP [address] [place], [place] [address] Cardiology 02/29/24 documented as of this encounter
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
--- OUTSIDE RECORDS SUMMARY | 2024-11-21 16:23 | XMS_ITS | Clinical Summary ---
Author Organization [employer] Address [address] [place] [address] 7 [place] [address] Care Team Providers Care Mushroom Spawn Maker Name Role Phone Unavailable Primary Care [...]
--- OUTSIDE RECORDS SUMMARY | 2024-11-21 16:23 | XMS_ITS | Encounter Summary ---
Author Organization [facility] Address [address] [place] [address] Care Team Providers Care Seasonal Retail Merchandiser Name Role Phone Reilly Baker MD, PHD Unavailable Unava ilable Wayne Jaimes Primary Care Provider [phone] Dafne Hilton MD Unavailable [phone] Desi Swenson NP Unavailable [phone] Encounter Details Date Type Department Care Team Description 09/10/2022 Hospital Medical Records [address] [place] [address] Social History Tobacco Use Types Packs/Day Years [...] Date Type Specialty Care Team Description 04/29/2027 Solution Professional Report Abstract, Provider documented as of this encounter Visit Diagnoses Not on filedocumented in this encounter Care Teams Seasonal Retail Merchandiser Relationship Specialty Start Date End Date Wayne Jaimes [address] [place], [place] [phone] PCP - General Internal Medicine 02/16/22 Reilly Baker MD, PHD Surgeon Neurosurgery 01/20/22 Dafne Hilton MD [address] [place] [address] Specialist Cardiology 10/13/22 Desi Swenson NP [address] [place], [place] [phone] Cardiology 02/29/24 documented as of this encounter
--- OUTSIDE RECORDS SUMMARY | 2024-11-21 16:23 | XMS_ITS | Encounter Summary ---
Author Organization [facility] Address [address] [place] [address] Care Team Providers Care Toll Repairer Central Office Name Role Phone Reilly Baker MD, PHD Unavailable Unava ilable Wayne Jaimes Primary Care Provider [phone] Dafne Hilton MD Unavailable [phone] Desi Swneson NP Unavailable [phone] Encounter Details Date Type Department Care Team Description 07/01/2022 Ticket Collector Report Medical Records [address] [place] [address] Maxwell Gordon MD Social History Tobacco Use [...] Date Type Specialty Care Team Description 04/29/2027 Ticket Collector Report Abstract, Provider documented as of this encounter Visit Diagnoses Not on filedocumented in this encounter Care Teams Toll Repairer Central Office Relationship Specialty Start Date End Date Wayne Jaimes [address] [place] [address] PCP - General Internal Medicine 02/16/22 Reilly Baker MD, PHD Surgeon Neurosurgery 01/20/22 Dafne Hilton MD [address] [place] [address] Specialist Cardiology 10/13/22 Desi Swenson NP [address] [place] [address] Cardiology 02/29/24 documented as of this encounter
--- OUTSIDE RECORDS SUMMARY | 2024-11-21 16:23 | XMS_ITS | Encounter Summary ---
Author Organization [facility] Address [address] [place] [address] Care Team Providers Care Dividing Machine Operator Helper Name Role Phone Reilly Baker MD, PHD Unavailable Unava ilWayne Osborne Primary Care Provider Dafne Hilton MD Unavailable [phone] Desi Swenson NP Unavailable [phone] Encounter Details Date Type Department Care Team Description 04/01/2022 [facility] Medical [facility] [address] [facility] [address] [place] [phone] Ena Whipple PA-C [address] [address] Social History Tobacco Use Types Packs/Day Years [...] Type Specialty Care Team Description 04/29/2027 Technology Support Analyst Report Abstract, Provider documented as of this encounter Visit Diagnoses Not on filedocumented in this encounter Care Teams Dividing Machine Operator Helper Relationship Specialty Start Date End Date Wayne Jaimes [address] [place] [address] PCP - General Internal Medicine 02/16/22 Reilly Baker MD, PHD Surgeon Neurosurgery 01/20/22 Dafne Hilton MD [address] [place] [address] Specialist Cardiology 10/13/22 Desi Swenson NP [address] [place], [place] [phone] Cardiology 02/29/24 documented as of this encounter
--- OUTSIDE RECORDS SUMMARY | 2024-11-21 16:23 | XMS_ITS | Encounter Summary ---
Author Organization [facility] Address [address] [place] [address] Care Team Providers Care Union Steward Name Role Phone Reilly Baker MD, PHD Unavailable Brett España MD Primary Care Provider Wayne Dickson Primary Care Provider [phone] Dafne Hilton MD Unavailable [phone] Desi Swenson NP Unavailable [phone] Encounter Details Date Type Department Care Team Description 01/26/2022 Release of Information Medical Records [address] [place] [id number] Abstract, Provider Social History Tobacco Use Types [...] Date Type Specialty Care Team Description 04/29/2027 Employee Relations Administrator Report Abstract, Provider documented as of this encounter Visit Diagnoses Not on filedocumented in this encounter Care Teams Union Steward Relationship Specialty Start Date End Date Brett Velsáquez MD PCP - General Internal Medicine 01/26/22 02/15/22 Wayne Jaimes [address] [place] [address] PCP - General Internal Medicine 02/16/22 Reilly Baker MD, PHD Surgeon Neurosurgery 01/20/22 Dafne Hilton MD [address] [place] [address] Specialist Cardiology 10/13/22 Desi Swenson NP [address] [place] [address] Cardiology 02/29/24 documented as of this encounter
--- OUTSIDE RECORDS SUMMARY | 2024-11-21 16:23 | XMS_ITS | Encounter Summary ---
Author Organization [facility] Address [address] [place] [address] Care Team Providers Care Sail Repairer Name Role Phone Reilly Baker MD, PHD Unavailable Unava ilWayne Osborne Primary Care Provider [phone] Dafne Hilton MD Unavailable [phone] Desi Swenson NP Unavailable [phone] Encounter Details Date Type Department Care Team Description 02/23/2022 Orders Only Medical Records [address] [place] [address] Yuliana Auguste MD [address] [place] [address] Social History Tobacco Use Types Packs/Day Years [...] as possible. You may also use an ooxb-iqi-hkbwkry acid reducing agent such as Pepcid, Tums, omeprazole etc. when necessary.I would like to personally thank you for allowing us to take care of you. Please don't hesitate to call us for any questions or concerns. Regards, Vivek Auguste MD Board Certified Gastroenterology and Internal Medicine Transplant Hepatology [facility] documented in this encounter Plan of Treatment Upcoming Encounters Date Type Specialty Care Team Description 04/29/2027 Manager Furniture Report Abstract, Provider documented as of this encounter Procedures Procedure Name Priority Date/Time Associated Diagnosis Comments OUTSIDE PATHOLOGY Routine 02/18/2022 documented in this encounter Results * OUTSIDE PATHOLOGY (02/18/2022) Yuliana Auguste MD OUTSIDE LAB documented in this encounter Visit Diagnoses Not on filedocumented in this encounter Care Teams Sail Repairer Relationship Specialty Start Date End Date Jose M Jaimesgil Dowell [address] [place] [address] PCP - General Internal Medicine 02/16/22 Reilly Baker MD, PHD Surgeon Neurosurgery 01/20/22 Dafne Hilton MD [address] [place] [address] Specialist Cardiology 10/13/22 Desi Swenson NP [address] [place] [address] Cardiology 02/29/24 documented as of this encounter
--- OUTSIDE RECORDS SUMMARY | 2024-11-21 16:23 | XMS_ITS | Encounter Summary ---
Author Organization [facility] Address [address] [place] [address] Care Team Providers Care Gang Bore Operator Name Role Phone Brett Velásquez MD Primary Care Provider Reilly Stewart MD, PHD Unavailable Unava Brett Villegas MD Primary Care Provider Wayne Dickson Primary Care Provider [phone] Dafne Hilton MD Unavailable [phone] Desi Swenson NP Unavailable [phone] Encounter Details Date Type Department Care Team Description 02/26/2020 Dial Screw Assembler Report Medical Records [address] [place] [address] Ankita Mckeon NP Social History Tobacco Use [...] Date Type Specialty Care Team Description 04/29/2027 Dial Screw Assembler Report Abstract, Provider documented as of this encounter Visit Diagnoses Not on filedocumented in this encounter Care Teams Gang Bore Operator Relationship Specialty Start Date End Date Brett Velásquez MD PCP - General Internal Medicine 04/21/16 01/25/22 Brett Velásquez MD PCP - General Internal Medicine 01/26/22 02/15/22 Wayne Jaimes [address] [place] [address] PCP - General Internal Medicine 02/16/22 Reilly Baker MD, PHD Surgeon Neurosurgery 01/20/22 Dafne Hilton MD [address] [place] [address] Specialist Cardiology 10/13/22 Desi Swenson NP [address] [place] [address] Cardiology 02/29/24 documented as of this encounter
--- OUTSIDE RECORDS SUMMARY | 2024-11-21 16:23 | XMS_ITS | Encounter Summary ---
Author Organization [facility] Address [address] [place] [address] Care Team Providers Care Steam Table Associate Name Role Phone Brett Velásquez MD Primary Care Provider Keisha Luna MD Primary Care Provider [phone] Brett Velásquez MD Primary Care Provider Reilly Stewart MD, PHD Unavailable Unava ilable Brett Velásquez MD Primary Care Provider Wayne Dickson Primary Care Provider [phone] Dafne Hilton MD Unavailable [phone] Desi Swenson NP Unavailable [phone] Encounter Details Date Type Department Care Team Description 01/04/2013 Non Morse Intercept Technician Report Medical Records [address] [place] [address] Iron Barnett Social History Tobacco Use Types [...] Date Type Specialty Care Team Description 04/29/2027 Non Morse Intercept Technician Report Abstract, Provider documented as of this encounter Visit Diagnoses Not on filedocumented in this encounter Care Teams Steam Table Associate Relationship Specialty Start Date End Date Brett Velásquez MD PCP - General Internal Medicine 10/29/11 06/19/15 Keisha Chavez MD [address] [place] [address] PCP - General Internal Medicine 06/20/15 04/20/16 Brett Velásquez MD PCP - General Internal Medicine 04/21/16 01/25/22 Brett Velásquez MD PCP - General Internal Medicine 01/26/22 02/15/22 Wayne Jaimes [address] [place], [place] [id number] PCP - General Internal Medicine 02/16/22 Reilly Baker MD, PHD [address] [place] [address] Surgeon Neurosurgery 01/20/22 Dafne Hilton MD [address] [place] [address] Specialist Cardiology 10/13/22 Desi Swenson NP [address] [place] [address] Cardiology 02/29/24 documented as of this encounter
--- OUTSIDE RECORDS SUMMARY | 2024-11-21 16:23 | XMS_ITS | Encounter Summary ---
Author Organization [facility] Address [address] [place] [address] 7 [place] [address] Care Team Providers Care Folding Machine Setter Name Role Phone Unavailable Primary Care Provider Unavailabl e Encounter Details Date Type Department Care Team (Latest Contact Info) Description 01/15/[address] [facility] CONVERSIONS Dental, Provider, DDS Social History [...]
--- OUTSIDE RECORDS SUMMARY | 2024-11-21 16:23 | XMS_ITS | Encounter Summary ---
Author Organization [facility] Address [address] [place] [address] Care Team Providers Care Goal Umpire Name Role Phone Brett Velásquez MD Primary Care Provider Reilly Stewart MD, PHD Unavailable Brett España MD Primary Care Provider Wayne Dickson Primary Care Provider [phone] Dafne Hilton MD Unavailable [phone] Desi Swenson NP Unavailable [phone] Encounter Details Date Type Department Care Team Description 01/24/2020 Pt. Non Urgent Medical Question Adult Medicine [address] [address] Olivia Foster PA-C [address] [place] [address] Social History Tobacco Use Types Packs/Day Years [...] Type Specialty Care Team Description 04/29/2027 Director Search Marketing Strategies Report Abstract, Provider documented as of this encounter Visit Diagnoses Not on filedocumented in this encounter Care Teams Goal Umpire Relationship Specialty Start Date End Date Brett Velásquez MD PCP - General Internal Medicine 04/21/16 01/25/22 Brett Velásquez MD PCP - General Internal Medicine 01/26/22 02/15/22 Wayne Jaimes [address] [place] [address] PCP - General Internal Medicine 02/16/22 Reilly Baker MD, PHD Surgeon Neurosurgery 01/20/22 Dafne Hilton MD [address] [place] [address] Specialist Cardiology 10/13/22 Desi Swenson NP [address] [place] [address] Cardiology 02/29/24 documented as of this encounter
--- OUTSIDE RECORDS SUMMARY | 2024-11-21 16:23 | XMS_ITS | Encounter Summary ---
Author Organization [facility] Address [address] [place] [address] Care Team Providers Care Software Engineer Mobile Name Role Phone Reilly Baker MD, PHD Unavailable Brett España MD Primary Care Provider Wayne Dickson Primary Care Provider [phone] Dafne Hilton MD Unavailable [phone] Desi Swenson NP Unavailable [phone] Encounter Details Date Type Department Care Team Description 01/26/2022 Orders Only Adult Medicine [address] [address] Brett Velásquez MD Preoperative examination; Screening for [...] Date Type Specialty Care Team Description 04/29/2027 Hoof Trimmer Report Abstract, Provider documented as of this encounter Results * BASIC METABOLIC PANEL (02/19/2022 1:21 PM EDT) Pathologist [facility] GLOMERULAR FILTRATION RATE > 60 02/19/2022 5:28 PM EDT [facility] Comment: If patient is -Cymraes, multiply result by 1.21 Chronic Kidney Disease: [...] to patient->Immediate Brett Velásquez MD LAB [facility] * CBC (AUTO DIFF PLATELET) (02/19/2022 1:21 PM EDT) Pathologist [facility] WHITE BLOOD COUNT 6.9 4.8 - 10.8 x10-3/uL 02/19/2022 4:32 PM EDT [facility] RED BLOOD COUNT 5.1 4.5 - 5.5 x10-6/uL 02/19/2022 4:32 PM EDT [facility] Hemoglobin 15.3 13.5 - 17.5 g/dL 02/19/2022 4:32 PM EDT [facility] Hematocrit 45.7 42 - 54 % 02/19/2022 4:32 PM EDT [facility] MEAN CORPUSCULAR VOLUME 89.1 79 - 98 fL 02/19/2022 4:32 PM EDT [facility] CORPUSCULAR HEMOGLOBIN 29.8 27 - 32 pg 02/19/2022 4:32 PM EDT [facility] CORPUSCULAR HGB CONC 33.5 32 - 37 g/dL 02/19/2022 4:32 PM EDT [facility] RED CELL DISTRIBUTION WIDTH 11.8 11 - 15 % 02/19/2022 4:32 PM EDT [facility] PLT COUNT 221 130 - 400 x10-3/uL 02/19/2022 4:32 PM EDT [facility] MEAN PLATELET VOLUME 9.2 7 - 11 fL 02/19/2022 4:32 PM EDT [facility] NRBC % AUTO 0.0 <1 % 02/19/2022 4:32 PM EDT [facility] NEUTROPHILS % 66.7 % 02/19/2022 4:32 PM EDT [facility] LYMPH % 24.5 % 02/19/2022 4:32 PM EDT [facility] MONO % 7.8 % 02/19/2022 4:32 PM EDT [facility] EOS % 0.4 % 02/19/2022 4:32 PM EDT [facility] BASO % 0.3 % 02/19/2022 4:32 PM EDT [facility] IMMATURE GRANULOCYTES % 0.3 % 02/19/2022 4:32 PM EDT [facility] NRBC # AUTO 0.00 <0.1 x10-3/uL [...] Brett Velásquez MD LAB Performing Organization Address City/State/[facility] Co de Phone Number [facility] documented in this encounter Visit Diagnoses Diagnosis Preoperative examination Preoperative examination, unspecified Screening for deficiency anemia Screening for other and unspecified deficiency anemia Isolated proteinuria with other morphologic lesion documented in this encounter Care Teams Software Engineer Mobile Relationship Specialty Start Date End Date Brett Velásquez MD PCP - General Internal Medicine 01/26/22 02/15/22 Wayne Jaimes [address] [place] [address] PCP - General Internal Medicine 02/16/22 Reilly Baker MD, PHD Surgeon Neurosurgery 01/20/22 Dafne Hilton MD [address] [place] [address] Specialist Cardiology 10/13/22 Desi Swenson NP [address] [place] [address] Cardiology 02/29/24 documented as of this encounter
--- OUTSIDE RECORDS SUMMARY | 2024-11-21 16:23 | XMS_ITS | Encounter Summary ---
Author Organization [employer] [facility] Address [address] [place] [address] 7 [place] [address] Care Team Providers Care Underwriting Specialist Name Role Phone Unavailable Primary Care Provider Unavailabl e Encounter Details Date Type Department Care Team (Latest Contact Info) Description 01/23/2022 Abstract [facility] CONVERSIONS Dental, Provider, DDS Social History [...]
--- OUTSIDE RECORDS SUMMARY | 2024-11-21 16:23 | XMS_ITS | Encounter Summary ---
Author Organization [facility] Address [address] [place] [address] Care Team Providers Care Solar/Renewable Energy Sales Name Role Phone Brett Velásquez MD Primary Care Provider Reilly Stewart MD, PHD Unavailable Unava Brett Villegas MD Primary Care Provider Wayne Dickson Primary Care Provider [phone] Dfane Hilton MD Unavailable [phone] Desi Swenson NP Unavailable [phone] Encounter Details Date Type Department Care Team Description 11/18/2020 Assistant Program Director Report Medical Records [address] [place] [address] Desi Li DPM Social History Tobacco Use [...] Date Type Specialty Care Team Description 04/29/2027 Assistant Program Director Report Abstract, Provider documented as of this encounter Visit Diagnoses Not on filedocumented in this encounter Care Teams Solar/Renewable Energy Sales Relationship Specialty Start Date End Date Brett Velásquez MD PCP - General Internal Medicine 04/21/16 01/25/22 Brett Velásquez MD PCP - General Internal Medicine 01/26/22 02/15/22 Wayne Jaimes [address] [place] [address] PCP - General Internal Medicine 02/16/22 Reilly Baker MD, PHD Surgeon Neurosurgery 01/20/22 Dafne Hilton MD [address] [place] [address] Specialist Cardiology 10/13/22 Desi Swenson NP [address] [place] [address] Cardiology 02/29/24 documented as of this encounter
--- OUTSIDE RECORDS SUMMARY | 2024-11-21 16:23 | XMS_ITS | Encounter Summary ---
Author Organization [facility] Address [address] [place] [address] Care Team Providers Care Foot Specialist Name Role Phone Brett Velásquez MD Primary Care Provider Reilly Stewart MD, PHD Unavailable UnaBrett Davis MD Primary Care Provider Wayne Dickson Primary Care Provider [phone] Dafne Hilton MD Unavailable [phone] Desi Swenson NP Unavailable [phone] Reason for Visit * Reason Onset Date Comments TEST RESULTS 11/06/2020 Encounter Details Date Type Department Care Team Description 11/06/2020 Telephone Adult Medicine [address] [id number] Divya Ro PA [address] [place] [address] [id number] TEST RESULTS Social History Tobacco Use Types [...] Date Type Specialty Care Team Description 04/29/2027 Application Support Developer Report Abstract, Provider documented as of this encounter Visit Diagnoses Not on filedocumented in this encounter Care Teams Foot Specialist Relationship Specialty Start Date End Date Brett Velásquez MD PCP - General Internal Medicine 04/21/16 01/25/22 Brett Velásquez MD PCP - General Internal Medicine 01/26/22 02/15/22 Wayne Jaimes [address] [place] [address] PCP - General Internal Medicine 02/16/22 Reilly Baker MD, PHD Surgeon Neurosurgery 01/20/22 Dafne Hilton MD [address] [place] [address] Specialist Cardiology 10/13/22 Desi Swenson NP [address] [place] [address] Cardiology 02/29/24 documented as of this encounter
--- OUTSIDE RECORDS SUMMARY | 2024-11-21 16:23 | XMS_ITS | Encounter Summary ---
Author Organization [facility] Address [address] [place] [address] Care Team Providers Care Labor Gang Supervisor Name Role Phone Brett Velásquez MD Primary Care Provider Keisha Luna MD Primary Care Provider [phone] Brett Velásquez MD Primary Care Provider Reilly Stewart MD, PHD Unavailable Unava ilable Brett Velásquez MD Primary Care Provider Wayne Dickson Primary Care Provider Dafne Hilton MD Unavailable [phone] Desi Swenson NP Unavailable [phone] Encounter Details Date Type Department Care Team Description 10/11/2012 Release of Information Medical Records [address] [place] [address] Abstract, Provider Social History Tobacco Use Types [...] Type Specialty Care Team Description 04/29/2027 Electric Appliance Installer Report Abstract, Provider documented as of this encounter Visit Diagnoses Not on filedocumented in this encounter Care Teams Labor Gang Supervisor Relationship Specialty Start Date End Date Brett Velásquez MD PCP - General Internal Medicine 10/29/11 06/19/15 Keisha Chavez MD [address] [place] [address] PCP - General Internal Medicine 06/20/15 04/20/16 Brett Velásquez MD PCP - General Internal Medicine 04/21/16 01/25/22 Brett Velásquez MD PCP - General Internal Medicine 01/26/22 02/15/22 Wayne Jaimes [address] [place], [place] [phone] PCP - General Internal Medicine 02/16/22 Reilly Baker MD, PHD [address] [place] [address] Surgeon Neurosurgery 01/20/22 Dafne Hilton MD [address] [place] [address] Specialist Cardiology 10/13/22 Desi Swenson NP [address] [place] [address] Cardiology 02/29/24 documented as of this encounter
--- OUTSIDE RECORDS SUMMARY | 2024-11-21 16:23 | XMS_ITS | Encounter Summary ---
Author Organization [facility] Address [address] [place] [address] Care Team Providers Care Ui Engineer Name Role Phone Brett Velásquez MD Primary Care Provider Reilly Stewart MD, PHD Unavailable Unava ilBrett Bailon MD Primary Care Provider Wayne Dickson Primary Care Provider [phone] Dafne Hilton MD Unavailable [phone] Desi Swenson NP Unavailable [phone] Encounter Details Date Type Department Care Team Description 03/11/2018 Release of Information Medical Records [address] [place] [address] Abstract, Provider Social History Tobacco Use Types [...] Date Type Specialty Care Team Description 04/29/2027 Bell Person Report Abstract, Provider documented as of this encounter Visit Diagnoses Not on filedocumented in this encounter Care Teams Ui Engineer Relationship Specialty Start Date End Date Brett Velásquez MD PCP - General Internal Medicine 04/21/16 01/25/22 rBett Velásquez MD PCP - General Internal Medicine 01/26/22 02/15/22 Wayne Jaimes [address] [place] [address] PCP - General Internal Medicine 02/16/22 Reilly Baker MD, PHD Surgeon Neurosurgery 01/20/22 Dafne Hilton MD [address] [place] [address] Specialist Cardiology 10/13/22 Desi Swenson NP [address] [place] [address] Cardiology 02/29/24 documented as of this encounter
--- OUTSIDE RECORDS SUMMARY | 2024-11-21 16:23 | XMS_ITS | Encounter Summary ---
Author Organization [facility] Address [address] [place] [address] Care Team Providers Care Bone Char Puller Name Role Phone Reilly Baker MD, PHD Unavailable Unava ilWayne Osborne Primary Care Provider Dafne Hilton MD Unavailable [phone] Desi Swenson NP Unavailable [phone] Encounter Details Date Type Department Care Team Description 09/14/2022 Refill Nephrology - [facility] [address] [place] [address] Eduard Mccormick MD [address] [place] [address] Social History Tobacco Use Types Packs/Day Years [...] Date Type Specialty Care Team Description 04/29/2027 Bench Assembler Report Abstract, Provider documented as of this encounter Visit Diagnoses Not on filedocumented in this encounter Care Teams Bone Char Puller Relationship Specialty Start Date End Date Wayne Jaimes Del[place] [address] [place] [address] PCP - General Internal Medicine 02/16/22 Reilly Baker MD, PHD Surgeon Neurosurgery 01/20/22 Dafne Hilton MD [address] [place] [address] Specialist Cardiology 10/13/22 Desi Swenson NP [address] [place], [place] [phone] Cardiology 02/29/24 documented as of this encounter
--- OUTSIDE RECORDS SUMMARY | 2024-11-21 16:23 | XMS_ITS | Encounter Summary ---
Author Organization [facility] Address [address] [place] [address] Care Team Providers Care Chute Greaser Name Role Phone Reilly Baker MD, PHD Unavailable Unava ilWayne Osborne Primary Care Provider [phone] Dafne Hilton MD Unavailable [phone] Desi Swenson NP Unavailable [phone] Encounter Details Date Type Department Care Team Description 04/15/2022 SCAN [facility] Medical [facility] [address] [facility] [address] [place] [phone] Ena Whipple PA-C [address] [address] Social History Tobacco Use Types Packs/Day Years [...] Date Type Specialty Care Team Description 04/29/2027 Legal Operations Manager Report Abstract, Provider documented as of this encounter Visit Diagnoses Not on filedocumented in this encounter Care Teams Chute Greaser Relationship Specialty Start Date End Date Wayne Jaiems [address] [place] [address] PCP - General Internal Medicine 02/16/22 Reilly Baker MD, PHD Surgeon Neurosurgery 01/20/22 Dafne Hilton MD [address] [place] [address] Specialist Cardiology 10/13/22 Desi Swenson NP [address] [place], [place] [phone] Cardiology 02/29/24 documented as of this encounter
--- OUTSIDE RECORDS SUMMARY | 2024-11-21 16:23 | XMS_ITS | Encounter Summary ---
Author Organization [facility] Address [address] [place] [address] Care Team Providers Care Business Management Intern Name Role Phone Brett Velásquez MD Primary Care Provider Reilly Stewart MD, PHD Unavailable Unava Brett Villegas MD Primary Care Provider Wayne Dickson Primary Care Provider [phone] Dafne Hilton MD Unavailable [phone] Desi Swenson NP Unavailable Encounter Details Date Type Department Care Team Description 11/05/2020 [facility] Medical Records [address] [place] [address] Vladislav Antunez DO Social History Tobacco Use [...] Type Specialty Care Team Description 04/29/2027 Director Skills Report Abstract, Provider documented as of this encounter Visit Diagnoses Not on filedocumented in this encounter Care Teams Business Management Intern Relationship Specialty Start Date End Date Brett Velásquez MD PCP - General Internal Medicine 04/21/16 01/25/22 Brett Velásquez MD PCP - General Internal Medicine 01/26/22 02/15/22 Wayne Jaimes [address] [place] [address] PCP - General Internal Medicine 02/16/22 Reilly Baker MD, PHD Surgeon Neurosurgery 01/20/22 Dafne Hilton MD [address] [place] [address] Specialist Cardiology 10/13/22 Desi Swenson NP [address] [place] [address] Cardiology 02/29/24 documented as of this encounter
--- OUTSIDE RECORDS SUMMARY | 2024-11-21 16:23 | XMS_ITS | Encounter Summary ---
Author Organization [facility] Address [address] [place] [address] Care Team Providers Care Packaging Machine Supplies Distributor Name Role Phone Reilly Baker MD, PHD Unavailable Unava Wayne Blackman Primary Care Provider [phone] Dafne Hilton MD Unavailable [phone] Desi Swenson NP Unavailable [phone] Reason for Visit * Reason Onset Date Comments Medication 09/14/2022 Changes, fyi to Dr Mccormick Encounter Details Date Type Department Care Team Description 09/14/2022 Telephone Nephrology - [place] [address] [place] [address] Eduard Mccormick MD [address] [place] [address] [phone] Medication (Changes, fyi to Dr Mccormick) Social [...] some changes to his medications made by [facility]. States hewas told to stop taking losartan 25 mg and cholecalciferol (Vitamin D3 1000 units) and was prescribed asprin 81 mg daily, atorvastatin 80 mg, daily at bedtime, and ticagrelor 90 mg, twice a day. documented in this encounter Plan of Treatment Upcoming Encounters Date Type Specialty Care Team Description 04/29/2027 Land Surveying Party Chief Report Abstract, Provider documented as of this encounter Visit Diagnoses Not on filedocumented in this encounter Care Teams Packaging Machine Supplies Distributor Relationship Specialty Start Date End Date Wayne Jaimes [address] [place] [address] PCP - General Internal Medicine 02/16/22 Reilly Baker MD, PHD Surgeon Neurosurgery 01/20/22 Dafne Hilton MD [address] [place] [address] Specialist Cardiology 10/13/22 Desi Swenson NP [address] [place] [address] Cardiology 02/29/24 documented as of this encounter
--- OUTSIDE RECORDS SUMMARY | 2024-11-21 16:23 | XMS_ITS | Encounter Summary ---
Author Organization [facility] Address [address] [place] [address] Care Team Providers Care Silver Cleaner Name Role Phone Reilly Baker MD, PHD Unavailable Unava ilable Wayne Jaimes Primary Care Provider Dafne Hilton MD Unavailable [phone] Desi Swenson NP Unavailable [phone] Encounter Details Date Type Department Care Team Description 04/08/2022 Pt. Non Urgent Medical Question Adult Medicine [address] [address] Wayne Jaimes [address] [place] [address] Social History Tobacco Use Types Packs/Day Years [...] Date Type Specialty Care Team Description 04/29/2027 Homicide Squad Captain Report Abstract, Provider documented as of this encounter Visit Diagnoses Not on filedocumented in this encounter Care Teams Silver Cleaner Relationship Specialty Start Date End Date Erinarin Wayne Dowell [address] [place] [address] PCP - General Internal Medicine 02/16/22 Reilly Baker MD, PHD Surgeon Neurosurgery 01/20/22 Dafne Hilton MD [address] [place] [address] Specialist Cardiology 10/13/22 Desi Swenson NP [address] [place] [address] Cardiology 02/29/24 documented as of this encounter
--- OUTSIDE RECORDS SUMMARY | 2024-11-21 16:23 | XMS_ITS | Encounter Summary ---
Author Organization [facility] Address [address] [place] [address] Care Team Providers Care Agronomist Name Role Phone Brett Velásquez MD Primary Care Provider Reilly Stewart MD, PHD Unavailable Unava Brett Villegas MD Primary Care Provider Wayne Dickson Primary Care Provider [phone] Dafne Hilton MD Unavailable [phone] Desi Swenson NP Unavailable [phone] Encounter Details Date Type Department Care Team Description 01/23/2020 Orders Only Medical Records [address] [place] [address] Vladislav Antunez DO Social History Tobacco Use [...] Type Specialty Care Team Description 04/29/2027 Applications Intern Report Abstract, Provider documented as of this encounter Procedures Procedure Name Priority Date/Time Associated Diagnosis Comments OUTSIDE LAB Routine 01/22/2020 documented in this encounter Results * OUTSIDE LAB (01/22/2020) Vladislav Antunez DO LAB documented in this encounter Visit Diagnoses Not on filedocumented in this encounter Care Teams Agronomist Relationship Specialty Start Date End Date Brett Velásquez MD PCP - General Internal Medicine 04/21/16 01/25/22 Brett Velásquez MD PCP - General Internal Medicine 01/26/22 02/15/22 Wayne Jaimes [address] [place] [address] PCP - General Internal Medicine 02/16/22 Reilly Baker MD, PHD Surgeon Neurosurgery 01/20/22 Dafne Hilton MD [address] [place] [address] Specialist Cardiology 10/13/22 Desi Swenson NP [address] [place] [address] Cardiology 02/29/24 documented as of this encounter
--- OUTSIDE RECORDS SUMMARY | 2024-11-21 16:23 | XMS_ITS | Encounter Summary ---
Author Organization [facility] Address [address] [place] [address] Care Team Providers Care Land Surveyor Name Role Phone Brett Velásquez MD Primary Care Provider Reilly Stewart MD, PHD Unavailable Unava ilBrett Bailon MD Primary Care Provider Wayne Dickson Primary Care Provider [phone] Dafne Hilton MD Unavailable [phone] Desi Swenson NP Unavailable [phone] Encounter Details Date Type Department Care Team Description 01/24/2020 Senior Account Representative Report Medical Records [address] [place] [address] Aleksandar Huggins MD Social History Tobacco Use [...] Type Specialty Care Team Description 04/29/2027 Senior Account Representative Report Abstract, Provider documented as of this encounter Visit Diagnoses Not on filedocumented in this encounter Care Teams Land Surveyor Relationship Specialty Start Date End Date Brett Velásquez MD PCP - General Internal Medicine 04/21/16 01/25/22 Brett Velásquez MD PCP - General Internal Medicine 01/26/22 02/15/22 Wayne Jaimes [address] [place] [address] PCP - General Internal Medicine 02/16/22 Reilly Baker MD, PHD Surgeon Neurosurgery 01/20/22 Dafne Hilton MD [address] [place] [address] Specialist Cardiology 10/13/22 Desi Swenson NP [address] [place] [address] Cardiology 02/29/24 documented as of this encounter
--- OUTSIDE RECORDS SUMMARY | 2024-11-21 16:24 | XMS_ITS | Encounter Summary ---
Author Organization [facility] Address [address] [place] [address] Care Team Providers Care Ball Mill Operator Name Role Phone Brett Velásquez MD Primary Care Provider Reilly Stewart MD, PHD Unavailable Unava ilBrett Bailon MD Primary Care Provider Wayne Dickson Primary Care Provider [phone] Dafne Hilton MD Unavailable [phone] Desi Swenson NP Unavailable [phone] Encounter Details Date Type Department Care Team Description 10/04/2018 Release of Information Medical Records [address] [place] [address] Abstract, Provider Social History Tobacco Use Types [...] Date Type Specialty Care Team Description 04/29/2027 Graduate Civil Engineer Report Abstract, Provider documented as of this encounter Visit Diagnoses Not on filedocumented in this encounter Care Teams Ball Mill Operator Relationship Specialty Start Date End Date Brett Velásquez MD PCP - General Internal Medicine 04/21/16 01/25/22 Brett Velásquez MD PCP - General Internal Medicine 01/26/22 02/15/22 Wayne Jaimes [address] [place] [address] PCP - General Internal Medicine 02/16/22 Reilly Baker MD, PHD Surgeon Neurosurgery 01/20/22 Dafne Hilton MD [address] [place] [address] Specialist Cardiology 10/13/22 Desi Swenson NP [address] [place] [address] Cardiology 02/29/24 documented as of this encounter
--- OUTSIDE RECORDS SUMMARY | 2024-11-21 16:24 | XMS_ITS | Encounter Summary ---
Author Organization [facility] Address [address] [place] [address] Care Team Providers Care Office Professionals Name Role Phone Reilly Baker MD, PHD Unavailable Unava ilable Wayne Jaimes Primary Care Provider [phone] Dafne Hilton MD Unavailable [phone] Desi Swenson NP Unavailable [phone] Encounter Details Date Type Department Care Team Description 11/11/2023 Pt. [facility] [address] [place] [address] [id number] Md Steve Social History Tobacco Use Types [...] Date Type Specialty Care Team Description 04/29/2027 Inside Horticultural Specialty Grower Report Abstract, Provider documented as of this encounter Visit Diagnoses Not on filedocumented in this encounter Care Teams Office Professionals Relationship Specialty Start Date End Date Wayne Jaimes [address] [place] [address] PCP - General Internal Medicine 02/16/22 Reilly Baker MD, PHD Surgeon Neurosurgery 01/20/22 Dafne Hilton MD [address] [place] [address] Specialist Cardiology 10/13/22 Desi Swenson NP [address] [place] [address] Cardiology 02/29/24 documented as of this encounter
--- OUTSIDE RECORDS SUMMARY | 2024-11-21 16:24 | XMS_ITS | Encounter Summary ---
Author Organization [facility] Address [address] [place] [address] Care Team Providers Care Hot Metal Mixer Operator Helper Name Role Phone Reilly Baker MD, PHD Unavailable Unava Wayne Blackman Primary Care Provider [phone] Dafne Hilton MD Unavailable Desi Swenson NP Unavailable [phone] Encounter Details Date Type Department Care Team Description 01/14/2023 Hospital Medical Records [address] [place] [address] [facility] Social History Tobacco Use Types [...] Date Type Specialty Care Team Description 04/29/2027 Ammonia Still Operator Report Abstract, Provider documented as of this encounter Procedures Procedure Name Priority Date/Time Associated Diagnosis Comments OUTSIDE CT Routine 01/15/2023 OUTSIDE EKG Routine 01/14/2023 documented in this encounter Results * OUTSIDE CT (01/15/2023) Provider Abstract RADIOLOGY * OUTSIDE EKG (01/14/2023) Provider Abstract CARDIOLOGY documented in this encounter Visit Diagnoses Not on filedocumented in this encounter Care Teams Hot Metal Mixer Operator Helper Relationship Specialty Start Date End Date Wayne Jaimes [address] [place] [address] PCP - General Internal Medicine 02/16/22 Reilly Baker MD, PHD Surgeon Neurosurgery 01/20/22 Dafne Hilton MD [address] [place] [address] Specialist Cardiology 10/13/22 Desi Swenson NP [address] [place] [address] Cardiology 02/29/24 documented as of this encounter
--- OUTSIDE RECORDS SUMMARY | 2024-11-21 16:24 | XMS_ITS | Encounter Summary ---
Author Organization [facility] Address [address] [place] [address] Care Team Providers Care Academic Advisor Name Role Phone Brett Velásquez MD Primary Care Provider Reilly Stewart MD, PHD Unavailable Unava Brett Villegas MD Primary Care Provider Wayne Dickson Primary Care Provider [phone] Dafne Hilton MD Unavailable [phone] Desi Swenson NP Unavailable [phone] Encounter Details Date Type Department Care Team Description 03/31/2017 Senior Business Broker Report Medical Records [address] [place] [address] Vipin Rhoades Social History Tobacco Use Types [...] Type Specialty Care Team Description 04/29/2027 Senior Business Broker Report Abstract, Provider documented as of this encounter Visit Diagnoses Not on filedocumented in this encounter Care Teams Academic Advisor Relationship Specialty Start Date End Date Brett Velásquez MD PCP - General Internal Medicine 04/21/16 01/25/22 Brett Velásquez MD PCP - General Internal Medicine 01/26/22 02/15/22 Wayne Jaimes [address] [place] [address] PCP - General Internal Medicine 02/16/22 Reilly Baker MD, PHD Surgeon Neurosurgery 01/20/22 Dafne Hilton MD [address] [place] [address] Specialist Cardiology 10/13/22 Desi Swenson NP [address] [place] [address] Cardiology 02/29/24 documented as of this encounter
--- OUTSIDE RECORDS SUMMARY | 2024-11-21 16:24 | XMS_ITS | Encounter Summary ---
Author Organization [facility] Address [address] [place] [address] Care Team Providers Care Store Receiving Specialist Name Role Phone Brett Velásquez MD Primary Care Provider Reilly Stewart MD, PHD Unavailable Unava Brett Villegas MD Primary Care Provider Wayne Dickson Primary Care Provider [phone] Dafne Hilton MD Unavailable [phone] Desi Swenson NP Unavailable [phone] Encounter Details Date Type Department Care Team Description 09/18/2020 Hematology Technologist Report Medical Records [address] [place] [address] Desi Li DPM Social History Tobacco Use [...] Date Type Specialty Care Team Description 04/29/2027 Hematology Technologist Report Abstract, Provider documented as of this encounter Visit Diagnoses Not on filedocumented in this encounter Care Teams Store Receiving Specialist Relationship Specialty Start Date End Date Brett Velásquez MD PCP - General Internal Medicine 04/21/16 01/25/22 Brett Velásquez MD PCP - General Internal Medicine 01/26/22 02/15/22 Wayne Jaimes [address] [place] [address] PCP - General Internal Medicine 02/16/22 Reilly Baker MD, PHD Surgeon Neurosurgery 01/20/22 Dafne Hilton MD [address] [place] [address] Specialist Cardiology 10/13/22 Desi Swenson NP [address] [place] [address] Cardiology 02/29/24 documented as of this encounter
--- OUTSIDE RECORDS SUMMARY | 2024-11-21 16:24 | XMS_ITS ---
Author Organization [facility] Address [address] [facility] [address] [place] [address] Care Team Providers Care Curing Room Worker Name Role Phone Wayne Jaimes MD Primary Care Provider DESI Burks Unavailable [phone] Allergies No Known Allergies REASON FOR VISIT [...] Not-Taking Diclofenac Sodium 1 % as directed Sole Polisher ally place 1 g onto the [...] W/U Status Risk Notes Problem Lumbar radiculopathy , right (M54.16) Active confirmed Procedures Procedure Date Ordered Date Performed Result Body Sit e DRAIN/INJECT, SMALL JOINT/BURSA 04/10/2024 N/A Encounters Encounter Location Date Provider Diagnosis [facility] [address] [facility] [address] [place] [address] 04/10/2024 DESI LI Onychomycosis B35.1 ; Calcium [...] Date Notes Efinaconazole 10 % 1 application Sole Polisher ally Once a day for 90 [...] Name:DESI LI, 01/10/2025 02:45:00 PM, [address], [address], Medications Administered Medication Instructions Date of Administration Dosage Notes dexAMETHasone Sod Phosphate PF 04/10/2024 0.5 m L Kenalog 04/10/2024 0.5 mL Progress Notes * Mckinley LEWISOB:1955 ([age] yo M)Acc No.[id number]:04/10/2024 Progress Note Patient:?Laina LEWIS Provider:?Desi Li DPM :1955???Age:68 Y???Sex:Male Nael e:04/10/2024 Address:[address] [place], [place] [address] Pcp:Wayne Jaimes MD Subjective: * Chief Complaints: [...] bilaterally, protective sensation intact 10/10 with 5.07 [place] Alisha bilaterally, vibratory sensation with tuning fork [...] RT J1100 INJ DEXAMETHASONE SODIM PHOSHATE 1 [id number] INJ TRIAMCINOLONE ACETONIDE 10 MG * Follow Up:?3 Months * Billing Information: * Visit Code:? 27285 Office Visit, Est Pt., Level 4. Modifiers: 25 * Procedure Codes:? 07395 DRAIN/INJECT, SMALL JOINT/BURSA. Modifiers: RT J1100 INJ DEXAMETHASONE SODIM PHOSHATE 1 MG. J3301 INJ TRIAMCINOLONE ACETONIDE 10 MG. * Sign off status: Completed true * Provider:?Desi Li DPM Date:? 04/10/2024 Generated for Tatiana lema/Nilsa/Glo on:?11/21/2024 04:23 PM EDT History and Physical Notes * [...] bilaterally, protective sensation intact 10/10 with 5.07 [place] Alisha bilaterally, vibratory sensation with tuning fork [...]
--- OUTSIDE RECORDS SUMMARY | 2024-11-21 16:24 | XMS_ITS | Encounter Summary ---
Author Organization [facility] Address [address] [place] [address] Care Team Providers Care Hard Tile Setter Apprentice Name Role Phone Reilly Baker MD, PHD Unavailable Unava ilWayne Osborne Primary Care Provider Dafne Hilton MD Unavailable [phone] Desi Swenson NP Unavailable [phone] Encounter Details Date Type Department Care Team Description 01/18/2024 Telephone Gastroenterology - [place] [address] [facility] [address] [place] [address] Kevin Oliav PA-C [address] [facility] [address] [place] [address] Social History Tobacco Use Types Packs/Day Years [...] 01/31/2024 3:25 PM EDT Per Prisca at [facility], [facility] is not contracted with patient's insurance either, [facility] [employer]. Per abdias Brown to book at [facility]. Called Central Registration at [phone] but they want the order faxed with demo sheet. Faxed to [phone]. * Telephone Encounter - Alexandria John - 01/31/2024 3:08 PM EDT Patient came in office stating [facility] is not accepting patient insurance. Please schedule appointment at [facility] for Barium Swallow and contact patient with information. * Telephone Encounter - Cristina Jimneez - 01/18/2024 8:21 AM EDT Booked Barium Swallow at [address] [place] [address] for patient on January 31 at 8am w/ arrival at 7:45am. Called the patient to notify of appointment details, including nothing to eat/drink after midnight. I also mailed an appointment letter. Order has been faxed to [phone]. documented in this encounter Plan of Treatment Upcoming Encounters Date Type Specialty Care Team Description 04/29/2027 Consumer Services Consultant Report Abstract, Provider documented as of this encounter Visit Diagnoses Not on filedocumented in this encounter Care Teams Hard Tile Setter Apprentice Relationship Specialty Start Date End Date Wayne JaimesUsama [address] [place] [address] PCP - General Internal Medicine 02/16/22 Reilly Baker MD, PHD Surgeon Neurosurgery 01/20/22 Dafne Hilton MD [address] [place] [address] Specialist Cardiology 10/13/22 Desi Swenson NP [address] [place] [address] Cardiology 02/29/24 documented as of this encounter
--- OUTSIDE RECORDS SUMMARY | 2024-11-21 16:24 | XMS_ITS | Encounter Summary ---
Author Organization [facility] Address [address] [place] [address] Care Team Providers Care Salad Counter Attendant Name Role Phone Reilly Baker MD, PHD Unavailable Unava ilWayne Osborne Primary Care Provider [phone] Dafne Hilton MD Unavailable [phone] Desi Swenson NP Unavailable [phone] Encounter Details Date Type Department Care Team Description 09/15/2023 Orders Only Medical Records [address] [place] [address] Yuliana Auguste MD [address] [place] [address] Social History Tobacco Use Types Packs/Day Years [...] Date Type Specialty Care Team Description 04/29/2027 Airline Reservationist Report Abstract, Provider documented as of this encounter Procedures Procedure Name Priority Date/Time Associated Diagnosis Comments OUTSIDE COLONOSCOPY Routine 09/09/2023 documented in this encounter Results * OUTSIDE COLONOSCOPY (09/09/2023) Yuliana Auguste MD RADIOLOGY documented in this encounter Visit Diagnoses Not on filedocumented in this encounter Care Teams Salad Counter Attendant Relationship Specialty Start Date End Date Wayne Jaimes [address] [place] [address] PCP - General Internal Medicine 02/16/22 Reilly Baker MD, PHD Surgeon Neurosurgery 01/20/22 Dafne Hilton MD [address] [place] [address] Specialist Cardiology 10/13/22 Desi Swenson NP [address] [place] [address] Cardiology 02/29/24 documented as of this encounter
--- OUTSIDE RECORDS SUMMARY | 2024-11-21 16:24 | XMS_ITS ---
Author Organization [facility] Address [address] [facility] [address] [place] [address] Care Team Providers Care Showroom Consultant Name Role Phone Wayne Jaimes MD Primary Care Provider DESI Burks Unavailable [phone] Allergies No Known Allergies REASON FOR VISIT [...] Active Diclofenac Sodium 1 % as directed Life Sciences Director ally place 1 g onto the skin [...] 10/11/2024 Encounters Encounter Location Date Provider Diagnosis [facility] [address] [facility] [address] [place] [address] 10/11/2024 DESI LI Onychomycosis B35.1 ; Calcium [...] days 10/11/2024 Efinaconazole 10 % 1 application Life Sciences Director ally Once a day for 90 days [...] Name:DESI LI, 01/10/2025 02:45:00 PM, [address] [address], [place], [address], Progress Notes * Mckinley LEWISOB:1955 ([age] yo M)Acc No.[id number]:10/11/2024 Progress Note Patient:?Laina LEWIS Provider:?Desi Li DPM :1955???Age:68 Y???Sex:Male Nael e:10/11/2024 Address:[address] [place], [place] [address] [id number] Pcp:Wayne Jaimes MD Subjective: * Chief Complaints: [...] bilaterally, protective sensation intact 10/10 with 5.07 [place] Alisha bilaterally, vibratory sensation with tuning fork [...] Months * Billing Information: * Visit Code:? 88092 Office Visit, Est Pt., Level 4. * Procedure Codes:? * Sign off status: Completed true * Provider:?Desi Li DPM Date:? 10/11/2024 Generated for Tatiana lema/Nilsa/Kamillesmitting on:?11/21/2024 04:23 PM EDT History and Physical [...] bilaterally, protective sensation intact 10/10 with 5.07 [place] Alisha bilaterally, vibratory sensation with tuning fork [...]
--- OUTSIDE RECORDS SUMMARY | 2024-11-21 16:24 | XMS_ITS | Encounter Summary ---
Author Organization [facility] Address [address] [place] [address] Care Team Providers Care Medical Observer Name Role Phone Reilly Baker MD, PHD Unavailable Unava ilable Wayne Jaimes Primary Care Provider [phone] Dafne Hilton MD Unavailable [phone] Desi Swenson NP Unavailable [phone] Encounter Details Date Type Department Care Team Description 01/04/2023 Hospital Medical Records [address] [place] [address] Vladislav Antunez DO Social History Tobacco Use [...] Date Type Specialty Care Team Description 04/29/2027 Light Rail Operator Report Abstract, Provider documented as of this encounter Visit Diagnoses Not on filedocumented in this encounter Care Teams Medical Observer Relationship Specialty Start Date End Date Wayne Jaimes [address] [place] [address] PCP - General Internal Medicine 02/16/22 Reilly Baker MD, PHD Surgeon Neurosurgery 01/20/22 Dafne Hilton MD [address] [place] [address] Specialist Cardiology 10/13/22 Desi Swenson NP [address] [place], [place] 04[address] Cardiology 02/29/24 documented as of this encounter
--- OUTSIDE RECORDS SUMMARY | 2024-11-21 16:24 | XMS_ITS | Encounter Summary ---
Author Organization [facility] Address [address] [place] [address] Care Team Providers Care Soa Engineer Name Role Phone Brett Velásquez MD Primary Care Provider Reilly Stewart MD, PHD Unavailable Unava ilBrett Bailon MD Primary Care Provider Wayne Dickson Primary Care Provider Dafne Hilton MD Unavailable [phone] Desi Swenson NP Unavailable [phone] Encounter Details Date Type Department Care Team Description 08/10/2018 Nursing Program Manager Report Medical Records [address] [place] [address] Aleksandar Huggins MD Social History Tobacco Use [...] Date Type Specialty Care Team Description 04/29/2027 Nursing Program Manager Report Abstract, Provider documented as of this encounter Visit Diagnoses Not on filedocumented in this encounter Care Teams Soa Engineer Relationship Specialty Start Date End Date Brett Velásquez MD PCP - General Internal Medicine 04/21/16 01/25/22 Brett Velásquez MD PCP - General Internal Medicine 01/26/22 02/15/22 Wayne Jaimes [address] [place] [address] PCP - General Internal Medicine 02/16/22 Reilly Baker MD, PHD Surgeon Neurosurgery 01/20/22 Dafne Hilton MD [address] [place] [address] Specialist Cardiology 10/13/22 Desi Swenson NP [address] [place] [address] Cardiology 02/29/24 documented as of this encounter
--- OUTSIDE RECORDS SUMMARY | 2024-11-21 16:24 | XMS_ITS | Encounter Summary ---
Author Organization [facility] Address [address] [place] [address] Care Team Providers Care Resilient Tile Installer Name Role Phone Brett Velásquez MD Primary Care Provider Reilly Setwart MD, PHD Unavailable UnaBrett Davis MD Primary Care Provider Wayne Dickson Primary Care Provider Dafne Hilton MD Unavailable [phone] Desi Swenson NP Unavailable [phone] Reason for Visit * Reason Comments E-prescribe Rx Request Encounter Details Date Type Department Care Team Description 05/05/2021 Refill [facility] [address] [address] Hermes Alegre MD [address] [address] E-prescribe Rx Request Social History [...] Date Type Specialty Care Team Description 04/29/2027 Balance Engineer Report Abstract, Provider documented as of this encounter Visit Diagnoses Not on filedocumented in this encounter Care Teams Resilient Tile Installer Relationship Specialty Start Date End Date Brett Velásquez MD PCP - General Internal Medicine 04/21/16 01/25/22 Brett Velásquez MD PCP - General Internal Medicine 01/26/22 02/15/22 Wayne Jaimes [address] [place] [address] PCP - General Internal Medicine 02/16/22 Reilly Baker MD, PHD Surgeon Neurosurgery 01/20/22 Dafne Hilton MD [address] [place] [address] Specialist Cardiology 10/13/22 Desi Swenson NP [address] [place] [address] Cardiology 02/29/24 documented as of this encounter
--- OUTSIDE RECORDS SUMMARY | 2024-11-21 16:24 | XMS_ITS | Encounter Summary ---
Author Organization [facility] Address [address] [place] [address] Care Team Providers Care Metal Refiner Name Role Phone Brett Velásquez MD Primary Care Provider Reilly Stewart MD, PHD Unavailable UnaBrett Davis MD Primary Care Provider Wayne Dickson Primary Care Provider [phone] Dafne Hilton MD Unavailable [phone] Desi Swenson NP Unavailable [phone] Encounter Details Date Type Department Care Team Description 04/23/2020 [facility] Medical Records [address] [place] [address] Vladislav Antunez DO Social History Tobacco Use [...] Type Specialty Care Team Description 04/29/2027 Field Counsel Report Abstract, Provider documented as of this encounter Visit Diagnoses Not on filedocumented in this encounter Care Teams Metal Refiner Relationship Specialty Start Date End Date Brett Velásquez MD PCP - General Internal Medicine 04/21/16 01/25/22 Jacinta Velásquez-MD Kye PCP - General Internal Medicine 01/26/22 02/15/22 Wayne Jaimes [address] [place] [address] PCP - General Internal Medicine 02/16/22 Reilly Baker MD, PHD Surgeon Neurosurgery 01/20/22 Dafne Hilton MD [address] [place] [address] Specialist Cardiology 10/13/22 Desi Swenson NP [address] [place] [address] Cardiology 02/29/24 documented as of this encounter
--- OUTSIDE RECORDS SUMMARY | 2024-11-21 16:24 | XMS_ITS | Encounter Summary ---
Author Organization [facility] Address [address] [place] [address] Care Team Providers Care Petroleum Transport Driver Name Role Phone Reilly Baker MD, PHD Unavailable Unava ilable Wayne Jaimes Primary Care Provider [phone] Dafne Hilton MD Unavailable [phone] Desi Swenson NP Unavailable [phone] Encounter Details Date Type Department Care Team Description 02/15/2023 Channel Process Supervisor Report Medical Records [address] [place] [address] Vladislav Antunez DO Social History Tobacco Use [...] Date Type Specialty Care Team Description 04/29/2027 Channel Process Supervisor Report Abstract, Provider documented as of this encounter Visit Diagnoses Not on filedocumented in this encounter Care Teams Petroleum Transport Driver Relationship Specialty Start Date End Date Wayne Jaimes [address] [place], [place] [address] PCP - General Internal Medicine 02/16/22 Reilly Baker MD, PHD Surgeon Neurosurgery 01/20/22 Dafne Hilton MD [address] [place] [address] Specialist Cardiology 10/13/22 Desi Swenson NP [address] [place], [place] [address] Cardiology 02/29/24 documented as of this encounter
--- OUTSIDE RECORDS SUMMARY | 2024-11-21 16:24 | XMS_ITS | Encounter Summary ---
Author Organization [facility] Address [address] [place] [address] Care Team Providers Care Airframe Design Engineer Name Role Phone Brett Velásquez MD Primary Care Provider Reilly Stewart MD, PHD Unavailable Brett España MD Primary Care Provider [place] Dickson Primary Care Provider [phone] Dafne Hilton MD Unavailable [phone] Desi Swenson NP Unavailable [phone] Encounter Details Date Type Department Care Team Description 06/25/2020 Orders Only Physiatry - [address] [address] Sonny Abrams PA-C Lumbar radiculitis (Primary Dx) Social History Tobacco Use Types Packs/Day Years [...] Date Type Specialty Care Team Description 04/29/2027 Boots And Shoes Supervisor Report Abstract, Provider documented as of this encounter Visit Diagnoses Diagnosis Lumbar radiculitis- Primary Thoracic or lumbosacral neuritis or radiculitis, unspecified documented in this encounter Care Teams Airframe Design Engineer Relationship Specialty Start Date End Date Brett Velásquez MD PCP - General Internal Medicine 04/21/16 01/25/22 Brett Velásquez MD PCP - General Internal Medicine 01/26/22 02/15/22 [place] Jaimes [address] [place] [address] PCP - General Internal Medicine 02/16/22 Reilly Baker MD, PHD Surgeon Neurosurgery 01/20/22 Dafne Hilton MD [address] [place] [address] Specialist Cardiology 10/13/22 Desi Swenson NP [address] [place] [address] Cardiology 02/29/24 documented as of this encounter
--- OUTSIDE RECORDS SUMMARY | 2024-11-21 16:24 | XMS_ITS | Encounter Summary ---
Author Organization [facility] Address [address] [place] [address] Care Team Providers Care Quality Control Manager Name Role Phone Reilly Baker MD, PHD Unavailable Unava ilWayne Osborne Primary Care Provider [phone] Dafen Hilton MD Unavailable [phone] Desi Swenson NP Unavailable [phone] Reason for Visit * Reason Onset Date Comments APPOINTMENT 08/19/2023 Encounter Details Date Type Department Care Team Description 08/19/2023 Telephone [facility] [address] [facility] [address] [place] [address] Wen Herrmann NP [address] [facility] [place] [address] APPOINTMENT Social History Tobacco Use Types Packs/Day [...] - 08/20/2023 1:35 PM EST Eve from [facility] called back and informed me that the patient had three requests open in the prior auth portal so she cancelled two as duplicates. Eve also added the J-code [id number] to therequest. * Telephone Encounter - Ena Randle - 08/19/2023 1:10 PM EST Eve Shi called in regards to a PA for pt Please call her back to discuss [phone] documented in this encounter Plan of Treatment Upcoming Encounters Date Type Specialty Care Team Description 04/29/2027 Search Advertising Strategist Report Abstract, Provider documented as of this encounter Visit Diagnoses Not on filedocumented in this encounter Care Teams Quality Control Manager Relationship Specialty Start Date End Date [place] Jaimes [address] [place] [address] PCP - General Internal Medicine 02/16/22 Reilly Baker MD, PHD Surgeon Neurosurgery 01/20/22 Dafne Hilton MD [address] [place] [address] Specialist Cardiology 10/13/22 Desi Swenson NP [address] [place] [address] Cardiology 02/29/24 documented as of this encounter
--- OUTSIDE RECORDS SUMMARY | 2024-11-21 16:24 | XMS_ITS ---
Author Organization [facility] Address [address] [facility] [address] [place] [address] Care Team Providers Care Skin Care Consultant Name Role Phone [place] Jaimes MD Primary Care Provider DESI Burks Unavailable [phone] Allergies No Known Allergies REASON FOR VISIT [...] Diclofenac Sodium 1 % as directed Physical Integration Practitioner ally place 1 g onto the skin [...] N/A Encounters Encounter Location Date Provider Diagnosis [facility] [address] [address] 07/10/2024 DESI [place] Onychomycosis B35.1 ; Calcium pyrophosphate deposition disease [...] Notes Efinaconazole 10 % 1 application Physical Integration Practitioner ally Once a day for 90 days [...] Name:DESI LI, 01/10/2025 02:45:00 PM, [address] [facility] [address], [place], [address], Medications Administered Medication Instructions Date of Administration Dosage Notes dexAMETHasone Sod Phosphate PF 07/10/2024 0.5 m L Kenalog 07/10/2024 0.5 mL Progress Notes * Mckinley LEWISOB:1955 ([age] yo M)Acc No.[id number]:07/10/2024 Progress Note Patient:Laina SANDOVAL Provider:?Desi Li DPM :1955???Age:68 Y???Sex:Male Nael e:07/10/2024 Address:[address] [place], [place] [id number] Pcp:[place] Jaimes MD Subjective: * Chief Complaints: [...] bilaterally, protective sensation intact 10/10 with 5.07 [place] Alisha bilaterally, vibratory sensation with tuning fork [...] RT J1100 INJ DEXAMETHASONE SODIM PHOSHATE 1 [id number] INJ TRIAMCINOLONE ACETONIDE 10 MG * Follow Up:?3 Months * Billing Information: * Visit Code:? 97518 Office Visit, Est Pt., Level 4. Modifiers: 25 * Procedure Codes:? DRAIN/INJECT, SMALL JOINT/BURSA. Modifiers: RT J1100 INJ DEXAMETHASONE SODIM PHOSHATE 1 MG. J3301 INJ TRIAMCINOLONE ACETONIDE 10 MG. * Sign off status: Completed true * Provider:?Desi Li DPM Date:? 07/10/2024 Generated for Tatiana lema/Nilsa/Glo on:?11/21/2024 04:24 PM EDT History and Physical Notes * [...] bilaterally, protective sensation intact 10/10 with 5.07 [place] Alisha bilaterally, vibratory sensation with tuning fork [...]
--- OUTSIDE RECORDS SUMMARY | 2024-11-21 16:24 | XMS_ITS | Encounter Summary ---
Author Organization [facility] Address [address] [place] [address] Care Team Providers Care Ux Architect Name Role Phone Reilly Baker MD, PHD Unavailable Unava ilWayne Osborne Primary Care Provider [phone] Dafne Hilton MD Unavailable [phone] Desi Swenson NP Unavailable [phone] Encounter Details Date Type Department Care Team Description 08/20/2023 Telephone Gastroenterology - [place] [address] [facility] [address] [place] [address] Kevin Oliva PA-C [address] [address] Social History Tobacco Use Types Packs/Day Years [...] Date Type Specialty Care Team Description 04/29/2027 Carnival Worker Report Abstract, Provider documented as of this encounter Visit Diagnoses Not on filedocumented in this encounter Care Teams Ux Architect Relationship Specialty Start Date End Date NovabelkisJose M hinklegil Dowell [address] [place] [address] PCP - General Internal Medicine 02/16/22 Reilly Baker MD, PHD Surgeon Neurosurgery 01/20/22 Dafne Hilton MD [address] [place] [address] Specialist Cardiology 10/13/22 Desi Swenson NP [address] [place] [address] Cardiology 02/29/24 documented as of this encounter
--- OUTSIDE RECORDS SUMMARY | 2024-11-21 16:24 | XMS_ITS | Encounter Summary ---
Author Organization [facility] Address [address] [place] [address] Care Team Providers Care Single Stroke Preformer Name Role Phone Brett Velásquez MD Primary Care Provider Reilly Stewart MD, PHD Unavailable Unava Brett Villegas MD Primary Care Provider [place] Dickson Primary Care Provider [phone] Dafne Hilton MD Unavailable [phone] Desi Swenson NP Unavailable [phone] Encounter Details Date Type Department Care Team Description 08/15/2020 Flight Tower Dispatcher Report Medical Records [address] [place] [address] Desi Li DPM Social History Tobacco Use [...] Type Specialty Care Team Description 04/29/2027 Flight Tower Dispatcher Report Abstract, Provider documented as of this encounter Visit Diagnoses Not on filedocumented in this encounter Care Teams Single Stroke Preformer Relationship Specialty Start Date End Date Brett Velásquez MD PCP - General Internal Medicine 04/21/16 01/25/22 Brett Velásquez MD PCP - General Internal Medicine 01/26/22 02/15/22 [place] Jaimes [address] [place] [address] PCP - General Internal Medicine 02/16/22 Reilly Baker MD, PHD Surgeon Neurosurgery 01/20/22 Dafne Hilton MD [address] [place] [address] Specialist Cardiology 10/13/22 Desi Swenson NP [address] [place] [address] Cardiology 02/29/24 documented as of this encounter
--- OUTSIDE RECORDS SUMMARY | 2024-11-21 16:24 | XMS_ITS | Encounter Summary ---
Author Organization [facility] Address [address] [place] [address] Care Team Providers Care Burr Grinder Name Role Phone Reilly Baker MD, PHD Unavailable Unava ilable [place] Jaimes Primary Care Provider [phone] Dafne Hilton MD Unavailable [phone] Desi Swenson NP Unavailable [phone] Encounter Details Date Type Department Care Team Description 01/04/2023 Walk In Clinic Visit Medical Records [address] [place] [address] Clinic, [facility] Walk-In [address] [place] [address] Social History Tobacco Use Types Packs/Day Years [...] Date Type Specialty Care Team Description 04/29/2027 Racing Driver Report Abstract, Provider documented as of this encounter Visit Diagnoses Not on filedocumented in this encounter Care Teams Burr Grinder Relationship Specialty Start Date End Date [place] Jaimes [address] [place] [address] PCP - General Internal Medicine 02/16/22 Reilly Baker MD, PHD Surgeon Neurosurgery 01/20/22 Dafne Hilton MD [address] [place] [address] Specialist Cardiology 10/13/22 Desi Swenson NP [address] [place] [address] Cardiology 02/29/24 documented as of this encounter
--- OUTSIDE RECORDS SUMMARY | 2024-11-21 16:24 | XMS_ITS | Encounter Summary ---
Author Organization [facility] Address [address] [place] [address] Care Team Providers Care Procurement Inspector Name Role Phone Brett Velásquez MD Primary Care Provider Reilly Stewart MD, PHD Unavailable Unava Brett Villegas MD Primary Care Provider [place] Dickson Primary Care Provider [phone] Dafne Hilton MD Unavailable [phone] Desi Swenson NP Unavailable [phone] Encounter Details Date Type Department Care Team Description 04/22/2021 Route Sales Associate Report Medical Records [address] [place] [address] Desi Li DPM Social History Tobacco Use [...] Type Specialty Care Team Description 04/29/2027 Route Sales Associate Report Abstract, Provider documented as of this encounter Visit Diagnoses Not on filedocumented in this encounter Care Teams Procurement Inspector Relationship Specialty Start Date End Date Brett Velásquez MD PCP - General Internal Medicine 04/21/16 01/25/22 Brett Velásquez MD PCP - General Internal Medicine 01/26/22 02/15/22 [place] Jaimes [address] [place] [address] PCP - General Internal Medicine 02/16/22 Reilly Baker MD, PHD Surgeon Neurosurgery 01/20/22 Dafne Hilton MD [address] [place] [address] Specialist Cardiology 10/13/22 Desi Swenson NP [address] [place] [address] Cardiology 02/29/24 documented as of this encounter
--- OUTSIDE RECORDS SUMMARY | 2024-11-21 16:24 | XMS_ITS | Encounter Summary ---
Author Organization [facility] Address [address] [place] [address] Care Team Providers Care Model And Pattern Supervisor Name Role Phone Brett Velásquez MD Primary Care Provider Reilly Stewart MD, PHD Unavailable Unava ilBrett Bailon MD Primary Care Provider [place] Dickson Primary Care Provider [phone] Dafne Hilton MD Unavailable [phone] Desi Swenson NP Unavailable [phone] Encounter Details Date Type Department Care Team Description 11/23/2016 Strip Cutter Report Medical Records [address] [place] [address] Aleksandar Huggins MD Social History Tobacco Use [...] Date Type Specialty Care Team Description 04/29/2027 Strip Cutter Report Abstract, Provider documented as of this encounter Visit Diagnoses Not on filedocumented in this encounter Care Teams Model And Pattern Supervisor Relationship Specialty Start Date End Date Brett Velásquez MD PCP - General Internal Medicine 04/21/16 01/25/22 Brett Velásquez MD PCP - General Internal Medicine 01/26/22 02/15/22 [place] Jaimes [address] [place] [address] PCP - General Internal Medicine 02/16/22 Reilly Baker MD, PHD Surgeon Neurosurgery 01/20/22 Dafne Hilton MD [address] [place] [address] Specialist Cardiology 10/13/22 Desi Swenson NP [address] [place] [address] Cardiology 02/29/24 documented as of this encounter
--- OUTSIDE RECORDS SUMMARY | 2024-11-21 16:24 | XMS_ITS | Encounter Summary ---
Author Organization [facility] Address [address] [place] [address] Care Team Providers Care Client Development Manager Name Role Phone Brett Velásquez MD Primary Care Provider Reilly Stewart MD, PHD Unavailable Brett España MD Primary Care Provider [place] Dickson Primary Care Provider [phone] Dafne Hilton MD Unavailable [phone] Desi Swenson NP Unavailable [phone] Reason for Visit * Reason Onset Date Comments er follow up 08/01/2018 Encounter Details Date Type Department Care Team Description 08/01/2018 Telephone Adult [address] [address] Brett Velásquez MD er follow up Social [...] PA-C Hospital/ center patient was treated at: [facility] Date of visit: 07/30/18 Was this [...] Date Type Specialty Care Team Description 04/29/2027 Payroll Benefits Administrator Report Abstract, Provider documented as of this encounter Visit Diagnoses Not on filedocumented in this encounter Care Teams Client Development Manager Relationship Specialty Start Date End Date Brett Velásquez MD PCP - General Internal Medicine 04/21/16 01/25/22 Brett Velásquez MD PCP - General Internal Medicine 01/26/22 02/15/22 [place] Jaimes [address] [place] [address] PCP - General Internal Medicine 02/16/22 Reilly Baker MD, PHD Surgeon Neurosurgery 01/20/22 Dafne Hilton MD [address] [place] [address] Specialist Cardiology 10/13/22 Desi Swenson, ILDA [address] [place] [address] Cardiology 02/29/24 documented as of this encounter
--- OUTSIDE RECORDS SUMMARY | 2024-11-21 16:24 | XMS_ITS | Encounter Summary ---
Author Organization [facility] Address [address] [place] [address] Care Team Providers Care Physiotherapist'S Assistant Name Role Phone Brett Velásquez MD Primary Care Provider Keisha Luna MD Primary Care Provider [phone] Brett Velásquez MD Primary Care Provider Reilly Stewart MD, PHD Unavailable Unava ilable Brett Velásquez MD Primary Care Provider [place] Dickson Primary Care Provider [phone] Dafne Hilton MD Unavailable [phone] Desi Swenson NP Unavailable [phone] Encounter Details Date Type Department Care Team Description 11/20/2013 Power Generation Plant Operator Report Medical Records [address] [place] [address] Neurosurgery, [address] [place] [address] Social History Tobacco Use Types Packs/Day Years [...] Date Type Specialty Care Team Description 04/29/2027 Power Generation Plant Operator Report Abstract, Provider documented as of this encounter Visit Diagnoses Not on filedocumented in this encounter Care Teams Physiotherapist'S Assistant Relationship Specialty Start Date End Date Brett Velásquez MD PCP - General Internal Medicine 10/29/11 06/19/15 Keisha Chavez MD [address] [place] [address] PCP - General Internal Medicine 06/20/15 04/20/16 Brett Velásquez MD PCP - General Internal Medicine 04/21/16 01/25/22 Brett Velásquez MD PCP - General Internal Medicine 01/26/22 02/15/22 [place] Jaimes [address] [place] [address] PCP - General Internal Medicine 02/16/22 Reilly Baker MD, PHD [address] [place] [address] Surgeon Neurosurgery 01/20/22 Dafne Hilton MD [address] [place] [address] Specialist Cardiology 10/13/22 Desi Swenson NP [address] [place] [address] Cardiology 02/29/24 documented as of this encounter
--- OUTSIDE RECORDS SUMMARY | 2024-11-21 16:24 | XMS_ITS | Encounter Summary ---
Author Organization [facility] Address [address] [place] [address] Care Team Providers Care Strategic Advisor Name Role Phone Brett Velásquez MD Primary Care Provider Reilly Stewart MD, PHD Unavailable Brett España MD Primary Care Provider [place] Dickson Primary Care Provider [phone] Dafne Hilton MD Unavailable [phone] Desi Swenson NP Unavailable [phone] Encounter Details Date Type Department Care Team Description 09/01/2020 [facility] [address] [place] [address] Md Steve Social History Tobacco Use Types [...] Date Type Specialty Care Team Description 04/29/2027 Courtesy Booth Cashier Report Abstract, Provider documented as of this encounter Visit Diagnoses Not on filedocumented in this encounter Care Teams Strategic Advisor Relationship Specialty Start Date End Date Brett Velásquez MD PCP - General Internal Medicine 04/21/16 01/25/22 Brett Velásquez MD PCP - General Internal Medicine 01/26/22 02/15/22 [place] Jaimes [address] [place] [address] PCP - General Internal Medicine 02/16/22 Reilly Baker MD, PHD Surgeon Neurosurgery 01/20/22 Dafne Hilton MD [address] [place] [address] Specialist Cardiology 10/13/22 Desi Swenson NP [address] [place] [address] Cardiology 02/29/24 documented as of this encounter
--- OUTSIDE RECORDS SUMMARY | 2024-11-21 16:24 | XMS_ITS | Encounter Summary ---
Author Organization [facility] Address [address] [place] [address] Care Team Providers Care Pumping Supervisor Name Role Phone Reilly Baker MD, PHD Unavailable Unava Wayne Blackman Primary Care Provider Dafen Hilton MD Unavailable [phone] Desi Swenson NP Unavailable [phone] Encounter Details Date Type Department Care Team Description 08/19/2023 Telephone Gastroenterology - [place] 175 [facility] [address] [place] [address] Kevin Oliva PA-C [address] [facility] [address] [place] [address] Social History Tobacco Use Types Packs/Day Years [...] also ordered a barium swallow done at [facility] and states that the same finding [...] will also need to have a French research rn spec. Please advise documented in this encounter Plan of Treatment Upcoming Encounters Date Type Specialty Care Team Description 04/29/2027 Video Editing Intern Report Abstract, Provider documented as of this encounter Visit Diagnoses Not on filedocumented in this encounter Care Teams Pumping Supervisor Relationship Specialty Start Date End Date [place] Jaimes [address] [place] [address] PCP - General Internal Medicine 02/16/22 Reilly Baker MD, PHD Surgeon Neurosurgery 01/20/22 Dafne Hilton MD [address] [place] [address] Specialist Cardiology 10/13/22 Desi Swenson NP [address] [place] [address] Cardiology 02/29/24 documented as of this encounter
--- OUTSIDE RECORDS SUMMARY | 2024-11-21 16:24 | XMS_ITS | Encounter Summary ---
Author Organization [facility] Address [address] [place] [address] Care Team Providers Care Piece Hand Name Role Phone Brett Velásquez MD Primary Care Provider Reilly Stewart MD, PHD Unavailable Unava Brett Villegas MD Primary Care Provider [place] Dickson Primary Care Provider Dafne Hilton MD Unavailable [phone] Desi Swenson NP Unavailable [phone] Encounter Details Date Type Department Care Team Description 06/25/2020 Sports Management Professor Report Medical Records [address] [place] [address] Zuleika Baez PA-C Social History Tobacco Use [...] Date Type Specialty Care Team Description 04/29/2027 Sports Management Professor Report Abstract, Provider documented as of this encounter Visit Diagnoses Not on filedocumented in this encounter Care Teams Piece Hand Relationship Specialty Start Date End Date Brett Velásquez MD PCP - General Internal Medicine 04/21/16 01/25/22 Brett Velásquez MD PCP - General Internal Medicine 01/26/22 02/15/22 [place] Jaimes [address] [place] [address] PCP - General Internal Medicine 02/16/22 Reilly Baker MD, PHD Surgeon Neurosurgery 01/20/22 Dafne Hilton MD [address] [place] [address] Specialist Cardiology 10/13/22 Desi Swenson NP [address] [place] [address] Cardiology 02/29/24 documented as of this encounter
--- OUTSIDE RECORDS SUMMARY | 2024-11-21 16:24 | XMS_ITS | Encounter Summary ---
Author Organization [facility] Address [address] [place] [address] Care Team Providers Care Safety Coordinator Name Role Phone Brett Velásquez MD Primary Care Provider Reilly Stewart MD, PHD Unavailable Unava ilBrett Bailon MD Primary Care Provider [place] Dickson Primary Care Provider [phone] Dafne Hilton MD Unavailable [phone] Desi Swenson NP Unavailable [phone] Encounter Details Date Type Department Care Team Description 09/27/2018 Road Conductor Report Medical Records [address] [place] [address] Vipin Cowart Social History Tobacco Use Types [...] Date Type Specialty Care Team Description 04/29/2027 Road Conductor Report Abstract, Provider documented as of this encounter Visit Diagnoses Not on filedocumented in this encounter Care Teams Safety Coordinator Relationship Specialty Start Date End Date Brett Velásquez MD PCP - General Internal Medicine 04/21/16 01/25/22 Brett Velásquez MD PCP - General Internal Medicine 01/26/22 02/15/22 [place] Jaimes [address] [place] [address] PCP - General Internal Medicine 02/16/22 Reilly Baker MD, PHD Surgeon Neurosurgery 01/20/22 Dafne Hilton MD [address] [place] [address] Specialist Cardiology 10/13/22 Desi Swenson NP [address] [place] [address] Cardiology 02/29/24 documented as of this encounter
--- OUTSIDE RECORDS SUMMARY | 2024-11-21 16:24 | XMS_ITS | Encounter Summary ---
Author Organization [facility] Address [address] [place] [address] Care Team Providers Care Weaver [place] Name Role Phone Reilly Baker MD, PHD Unavailable Unava ilable [place] Jaimes Primary Care Provider [phone] Dafne Hilton MD Unavailable [phone] Desi Swenson NP Unavailable [phone] Encounter Details Date Type Department Care Team Description 08/25/2023 [facility] Records [facility] Medical [facility] [address] [facility] [address] [place] [address] Wen Herrmann NP [address] [facility] [place] [address] Social History Tobacco Use Types Packs/Day Years [...] Date Type Specialty Care Team Description 04/29/2027 Administrative Officer Report Abstract, Provider documented as of this encounter Visit Diagnoses Not on filedocumented in this encounter Care Teams Weaver [place] Relationship Specialty Start Date End Date [place] Jaimes [address] [place], [place] [address] PCP - General Internal Medicine 02/16/22 Reilly Baker MD, PHD Surgeon Neurosurgery 01/20/22 Dafne Hilton MD [address] [place], [place] [address] Specialist Cardiology 10/13/22 Desi Swenson NP [address] [place] [address] Cardiology 02/29/24 documented as of this encounter
--- OUTSIDE RECORDS SUMMARY | 2024-11-21 16:24 | XMS_ITS | Encounter Summary ---
Author Organization [facility] Address [address] [place] [address] Care Team Providers Care Coating Supervisor Name Role Phone Reilly Baker MD, PHD Unavailable Unava ilable [place] Jaimes Primary Care Provider [phone] Dafne Hilton MD Unavailable [phone] Desi Swenson NP Unavailable [phone] Encounter Details Date Type Department Care Team Description 10/11/2023 Second Helper Report Medical Records [address] [place] [address] Vladislav Antunez DO Social History Tobacco Use [...] Date Type Specialty Care Team Description 04/29/2027 Second Helper Report Abstract, Provider documented as of this encounter Visit Diagnoses Not on filedocumented in this encounter Care Teams Coating Supervisor Relationship Specialty Start Date End Date [place] Jaimes [address] [place] [address] PCP - General Internal Medicine 02/16/22 Reilly Baker MD, PHD Surgeon Neurosurgery 01/20/22 Dafne Hilton MD [address] [place] [address] Specialist Cardiology 10/13/22 Desi Swenson NP [address] [place] [address] Cardiology 02/29/24 documented as of this encounter
--- OUTSIDE RECORDS SUMMARY | 2024-11-21 16:24 | XMS_ITS | Encounter Summary ---
Author Organization [facility] Address [address] [place] [address] Care Team Providers Care Electronic Engineering Technician Name Role Phone Reilly Baker MD, PHD Unavailable Unava Wayne Blackman Primary Care Provider [phone] Dafne Hilton MD Unavailable [phone] Desi Swenson NP Unavailable [phone] Reason for Visit * Reason Onset Date Comments Provider Call Back 02/11/2023 Encounter Details Date Type Department Care Team Description 02/11/2023 Telephone Gastroenterology - [place] [address] [facility] [address] [place] [phone] Kevin Oliva PA-C 175 [facility] 200 [place] [address] Provider Call Back Social History Tobacco Use [...] Type Specialty Care Team Description 04/29/2027 Glass Blower Helper Report Abstract, Provider documented as of this encounter Visit Diagnoses Not on filedocumented in this encounter Care Teams Electronic Engineering Technician Relationship Specialty Start Date End Date Jose M Jaimesgil Dowell [address] [place] [address] PCP - General Internal Medicine 02/16/22 Reilly Baker MD, PHD Surgeon Neurosurgery 01/20/22 Dafne Hilton MD [address] [place] [address] Specialist Cardiology 10/13/22 Desi Swenson NP [address] [place] [address] Cardiology 02/29/24 documented as of this encounter
--- OUTSIDE RECORDS SUMMARY | 2024-11-21 16:24 | XMS_ITS | Encounter Summary ---
Author Organization [facility] Address [address] [place] [address] Care Team Providers Care Men'S Swim Coach Name Role Phone Reilly Baker MD, PHD Unavailable Unava Wayne Blackman Primary Care Provider [phone] Dafne Hilton MD Unavailable [phone] Desi Swenson NP Unavailable [phone] Encounter Details Date Type Department Care Team Description 10/23/2022 SCAN Medical Records [address] [place] [address] Abstract, Provider Social History Tobacco Use Types [...] Date Type Specialty Care Team Description 04/29/2027 Agribusiness Internship Report Abstract, Provider documented as of this encounter Procedures Procedure Name Priority Date/Time Associated Diagnosis Comments OUTSIDE BARIUM SWALLOW Routine 10/23/2022 documented in this encounter Results * OUTSIDE BARIUM SWALLOW (10/23/2022) Provider Default RADIOLOGY documented in this encounter Visit Diagnoses Not on filedocumented in this encounter Care Teams Men'S Swim Coach Relationship Specialty Start Date End Date Wayne Jaimes [address] [place] [address] PCP - General Internal Medicine 02/16/22 Reilly Baker MD, PHD Surgeon Neurosurgery 01/20/22 Dafne Hilton MD [address] [place] [address] Specialist Cardiology 10/13/22 Desi Swenson NP [address] [place], [place] [id number] Cardiology 02/29/24 documented as of this encounter
--- OUTSIDE RECORDS SUMMARY | 2024-11-21 16:24 | XMS_ITS | Encounter Summary ---
Author Organization [facility] Address [address] [place] [address] Care Team Providers Care Registered Account Administrator Name Role Phone Brett Velásquez MD Primary Care Provider Reilly Stewart MD, PHD Unavailable UnaBrett Davis MD Primary Care Provider Wayne Dickson Primary Care Provider [phone] Dafne Hilton MD Unavailable [phone] Desi Swenson NP Unavailable [phone] Encounter Details Date Type Department Care Team Description 02/11/2021 Telephone [facility] [address] [phone] Hermes Alegre MD [address] [address] Social History Tobacco Use Types [...] Debbie Nguyen - 02/11/2021 12:52 PM EDT [facility] CALLED WITH A DELIVERY DATE OF 02/12/21 FOR SUCHUL'S EUFLEXXA documented in this encounter Plan of Treatment Upcoming Encounters Date Type Specialty Care Team Description 04/29/2027 Prosthetic Makeup Designer Report Abstract, Provider documented as of this encounter Visit Diagnoses Not on filedocumented in this encounter Care Teams Registered Account Administrator Relationship Specialty Start Date End Date Brett Velásquez MD PCP - General Internal Medicine 04/21/16 01/25/22 Brett Velásquez MD PCP - General Internal Medicine 01/26/22 02/15/22 Wayne Jaimes [address] [place] [address] PCP - General Internal Medicine 02/16/22 Reilly Baker MD, PHD Surgeon Neurosurgery 01/20/22 Dafne Hilton MD [address] [place] [address] Specialist Cardiology 10/13/22 Desi Swenson NP [address] [place] [address] Cardiology 02/29/24 documented as of this encounter
--- OUTSIDE RECORDS SUMMARY | 2024-11-21 16:24 | XMS_ITS | Encounter Summary ---
Author Organization [facility] Address [address] [place] [address] Care Team Providers Care Process Designer Name Role Phone Brett Velásquez MD Primary Care Provider Reilly Stewart MD, PHD Unavailable UnaBrett Davis MD Primary Care Provider Wayne Dickson Primary Care Provider [phone] Dafne Hilton MD Unavailable [phone] Desi Swenson NP Unavailable [phone] Encounter Details Date Type Department Care Team Description 03/20/2021 Pt. Non Urgent Medical Question Physiatry - [address] [address] Angela Montalvo MD [address] [place] [address] [place] [id number] Social History Tobacco Use Types Packs/Day Years [...] who IV injection for back pain in [facility] or [facility] as soon as possible. my back [...] Type Specialty Care Team Description 04/29/2027 Director Of Restaurant Operations Report Abstract, Provider documented as of this encounter Visit Diagnoses Not on filedocumented in this encounter Care Teams Process Designer Relationship Specialty Start Date End Date Brett Velásquez MD PCP - General Internal Medicine 04/21/16 01/25/22 Brett Velásquez MD PCP - General Internal Medicine 01/26/22 02/15/22 Wayne Jaimes [address] [place] [address] PCP - General Internal Medicine 02/16/22 Reilly Baker MD, PHD Surgeon Neurosurgery 01/20/22 Dafne Hilton MD [address] [place] [address] Specialist Cardiology 10/13/22 Desi Swenson NP [address] [place] [address] Cardiology 02/29/24 documented as of this encounter
--- OUTSIDE RECORDS SUMMARY | 2024-11-21 16:24 | XMS_ITS | Encounter Summary ---
Author Organization [facility] Address [address] [place] [address] Care Team Providers Care Senior Embedded Software Engineer Name Role Phone Reilly Baker MD, PHD Unavailable Unava Wayen Blackman Primary Care Provider Dafne Hilton MD Unavailable [phone] Desi Swenson NP Unavailable [phone] Encounter Details Date Type Department Care Team Description 10/13/2022 Telephone [facility] [address] [phone] Ankita Yanes MD [address] [id number] Social History Tobacco Use Types Packs/Day Years [...] Date Type Specialty Care Team Description 04/29/2027 Sql Etl Developer Report Abstract, Provider documented as of this encounter Visit Diagnoses Not on filedocumented in this encounter Care Teams Senior Embedded Software Engineer Relationship Specialty Start Date End Date Wayne Jaimes [address] [place] [address] PCP - General Internal Medicine 02/16/22 Reilly Baker MD, PHD Surgeon Neurosurgery 01/20/22 Dafne Hilton MD [address] [place] [address] Specialist Cardiology 10/13/22 Desi Swenson NP [address] [place] [address] Cardiology 02/29/24 documented as of this encounter
--- OUTSIDE RECORDS SUMMARY | 2024-11-21 16:24 | XMS_ITS | Patient Health Record ---
Author Organization [facility] Address [address] [facility] [address] [place] [address] Care Team Providers Care Trap Operator Name Role Phone Wayne Jaimes MD Primary Care Provider JORGE L Burks Unavailable [phone] Allergies No Known Allergies Reason For Referral [...] Active Diclofenac Sodium 1 % as directed Rn Lactation Consultant ally place 1 g onto the skin [...] Problem Status W/U Status Risk Notes Problem [id number] Primary osteoarthritis, right ankle and foot (M19.071) Active confirmed Problem [id number] Primary osteoarthritis, left 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) Active confirmed Problem 968856460 Equinus contracture of right ankle (M24.571) Active confirmed Problem 9465842 Psoriasis (L40.9) Active confirmed Problem Lumbar radiculopathy, right (M54.16) Active confirmed Problem [id number] Calcium pyrophosphate deposition disease (CPPD) (M11.20) Active [...] N/A Encounters Encounter Location Date Provider Diagnosis [facility] [address] 12/24/2023 JORGE L REDDY Onychomycosis B35.1 ; Calcium pyrophosphate deposition disease (CPPD) M11.20 ; Psoriasis L40.9 ; Hallux limitus of left foot M20.5X2 ; Hallux limitus of right foot M20.5X1 and Lumbar radiculopathy, right M54.16 [facility] [address] [address] 04/10/2024 JORGE L REDDY Onychomycosis B35.1 ; Calcium pyrophosphate deposition disease (CPPD) M11.20 ; Psoriasis L40.9 ; Hallux limitus of left foot M20.5X2 ; Hallux limitus of right foot M20.5X1 ; Lumbar radiculopathy, right M54.16 ; Achilles tendinitis, right leg M76.61 and Achilles tendinitis, left leg M76.62 [facility] [address] [address] 07/10/2024 JORGE L REDDY Onychomycosis B35.1 ; Calcium pyrophosphate deposition disease (CPPD) M11.20 ; Psoriasis L40.9 ; Hallux limitus of left foot M20.5X2 ; Hallux limitus of right foot M20.5X1 ; Lumbar radiculopathy, right M54.16 ; Achilles tendinitis, right leg M76.61 and Achilles tendinitis, left leg M76.62 [facility] [address] [address] 10/11/2024 JORGE L REDDY Onychomycosis B35.1 ; Calcium [...] REDDY, 01/10/2025 02:45:00 PM, [address] [facility] [address], [place], [address], Insurance Providers Payer Name Payer Address Payer Phone Subscriber Number Group Number Insured Name Patient Relationship to Insured Coverage Start Date Coverage End Date [employer] care medicare community plan [address] [address] [place] [phone] [id number] [facility] Self - patient is the [...]
--- OUTSIDE RECORDS SUMMARY | 2024-11-21 16:24 | XMS_ITS | Encounter Summary ---
Author Organization [facility] Address [address] [place] [address] Care Team Providers Care Data Processing Clerk Name Role Phone Brett Velásquez MD Primary Care Provider Reilly Stewart MD, PHD Unavailable Unava Brett Villegas MD Primary Care Provider Wayne Dickson Primary Care Provider [phone] Dafne Hilton MD Unavailable [phone] Desi Swenson NP Unavailable [phone] Encounter Details Date Type Department Care Team Description 03/18/2021 Knitting Teacher Report Medical Records [address] [place] [address] Zuleika Baez PA-C Social History Tobacco Use [...] Date Type Specialty Care Team Description 04/29/2027 Knitting Teacher Report Abstract, Provider documented as of this encounter Visit Diagnoses Not on filedocumented in this encounter Care Teams Data Processing Clerk Relationship Specialty Start Date End Date Brett Velásquez MD PCP - General Internal Medicine 04/21/16 01/25/22 Brett Velásquez MD PCP - General Internal Medicine 01/26/22 02/15/22 Wayne Jaimes [address] [place] [address] PCP - General Internal Medicine 02/16/22 Reilly Baker MD, PHD Surgeon Neurosurgery 01/20/22 Dafne Hilton MD [address] [place] [address] Specialist Cardiology 10/13/22 Desi Swenson NP [address] [place] [address] Cardiology 02/29/24 documented as of this encounter
--- OUTSIDE RECORDS SUMMARY | 2024-11-21 16:24 | XMS_ITS | Encounter Summary ---
Author Organization [facility] Address [address] [place] [address] Care Team Providers Care Product Marketing Consultant Name Role Phone Brett Velásquez MD Primary Care Provider Reilly Stewart MD, PHD Unavailable Unava Brett Villegas MD Primary Care Provider Wayne Dickson Primary Care Provider [phone] Dafne Hilton MD Unavailable [phone] Desi Swenson NP Unavailable [phone] Encounter Details Date Type Department Care Team Description 09/16/2020 Health Center Associate Report Medical Records [address] [place] [id number] Zuleika Baez PA-C Social History Tobacco Use [...] Type Specialty Care Team Description 04/29/2027 Health Center Associate Report Abstract, Provider documented as of this encounter Visit Diagnoses Not on filedocumented in this encounter Care Teams Product Marketing Consultant Relationship Specialty Start Date End Date Brett Velásquez MD PCP - General Internal Medicine 04/21/16 01/25/22 Brett Velásquez MD PCP - General Internal Medicine 01/26/22 02/15/22 Wayne Jaimes [address] [place] [address] PCP - General Internal Medicine 02/16/22 Reilly Baker MD, PHD Surgeon Neurosurgery 01/20/22 Dafne Hilton MD [address] [place] [address] Specialist Cardiology 10/13/22 Desi Swenson NP [address] [place] [address] Cardiology 02/29/24 documented as of this encounter
--- OUTSIDE RECORDS SUMMARY | 2024-11-21 16:24 | XMS_ITS | Encounter Summary ---
Author Organization [facility] Address [address] [place] [address] Care Team Providers Care Roller Helper Name Role Phone Brett Velásquez MD Primary Care Provider Reilly Stewart MD, PHD Unavailable Unava ilBrett Bailon MD Primary Care Provider Wayne Dickson Primary Care Provider Dafne Hilton MD Unavailable [phone] Desi Swenson NP Unavailable Encounter Details Date Type Department Care Team Description 05/03/2018 Release of Information Medical Records [address] [place] [address] Abstract, Provider Social History Tobacco Use Types [...] Date Type Specialty Care Team Description 04/29/2027 Municipal Services Manager Report Abstract, Provider documented as of this encounter Visit Diagnoses Not on filedocumented in this encounter Care Teams Roller Helper Relationship Specialty Start Date End Date Brett Velásquez MD PCP - General Internal Medicine 04/21/16 01/25/22 Brett Velásquez MD PCP - General Internal Medicine 01/26/22 02/15/22 Wayne Jaimes [address] [place] [address] PCP - General Internal Medicine 02/16/22 Reilly Baker MD, PHD Surgeon Neurosurgery 01/20/22 Dafne Hilton MD [address] [place] [address] Specialist Cardiology 10/13/22 Desi Swenson NP [address] [place] [address] Cardiology 02/29/24 documented as of this encounter
--- OUTSIDE RECORDS SUMMARY | 2024-11-21 16:24 | XMS_ITS | Encounter Summary ---
Author Organization [facility] Address [address] [place] [address] Care Team Providers Care Laborer Hide House Name Role Phone Reilly Baker MD, PHD Unavailable Unava ilable Wayne Jaimes Primary Care Provider [phone] Dafne Hilton MD Unavailable [phone] Desi Swenson NP Unavailable [phone] Encounter Details Date Type Department Care Team Description 10/08/2022 Station Installation Supervisor Report Medical Records [address] [place] [address] Vladislav Antunez DO Social History Tobacco Use [...] Date Type Specialty Care Team Description 04/29/2027 Station Installation Supervisor Report Abstract, Provider documented as of this encounter Visit Diagnoses Not on filedocumented in this encounter Care Teams Laborer Hide House Relationship Specialty Start Date End Date Wayne Jaimes [address] [place], [place] [id number] PCP - General Internal Medicine 02/16/22 Reilly Baker MD, PHD Surgeon Neurosurgery 01/20/22 Dafne Hilton MD [address] [place] [address] Specialist Cardiology 10/13/22 Desi Swenson NP [address] [place], [place] [address] Cardiology 02/29/24 documented as of this encounter
[2024-11-21 16:25] VITALS: BP 118/62; PULSE 98; RESP 12; BMI 25.3
--- OUTSIDE RECORDS SUMMARY | 2024-11-21 16:25 | XMS_ITS | Encounter Summary ---
Author Organization [facility] Address [address] [place] [address] Care Team Providers Care Radiology Special Procedure Tech Name Role Phone Brett Velásquez MD Primary Care Provider Keisha Luna MD Primary Care Provider [phone] Brett Velásquez MD Primary Care Provider Reilly Stewart MD, PHD Unavailable Unava ilable Brett Velásquez MD Primary Care Provider Wayne Dikcson Primary Care Provider [phone] Danfe Hilton MD Unavailable [phone] Desi Swenson NP Unavailable [phone] Encounter Details Date Type Department Care Team Description 04/26/2014 Aircraft Ordnance Systems Mechanic Report Medical Records [address] [place] [id number] Kareem Grier PA-C Social History Tobacco Use [...] Date Type Specialty Care Team Description 04/29/2027 Aircraft Ordnance Systems Mechanic Report Abstract, Provider documented as of this encounter Visit Diagnoses Not on filedocumented in this encounter Care Teams Radiology Special Procedure Tech Relationship Specialty Start Date End Date Brett Velásquez MD PCP - General Internal Medicine 10/29/11 06/19/15 Keisha Chavez MD [address] [place] [address] PCP - General Internal Medicine 06/20/15 04/20/16 Brett Velásquez MD PCP - General Internal Medicine 04/21/16 01/25/22 Brett Velásquez MD PCP - General Internal Medicine 01/26/22 02/15/22 Wayne Jaimes [address] [place] [address] PCP - General Internal Medicine 02/16/22 Reilly Baker MD, PHD [address] [place] [address] Surgeon Neurosurgery 01/20/22 Dafne Hilton MD [address] [place] [address] Specialist Cardiology 10/13/22 Desi Swenson NP [address] [place] [address] Cardiology 02/29/24 documented as of this encounter
--- OUTSIDE RECORDS SUMMARY | 2024-11-21 16:25 | XMS_ITS | Encounter Summary ---
Author Organization [facility] Address [address] [place] [address] Care Team Providers Care Waiter/Waitress Economy Class Name Role Phone Reilly Baker MD, PHD Unavailable Unava ilable Wayne Jaimes Primary Care Provider Dafne Hilton MD Unavailable [phone] Desi Swenson NP Unavailable Encounter Details Date Type Department Care Team Description [facility] 175 [facility] [address] [place] [phone] Ena Whipple PA-C [address] [address] Social History Tobacco Use Types Packs/Day Years [...] Date Type Specialty Care Team Description 04/29/2027 Remote Control Mirror Installer Report Abstract, Provider documented as of this encounter Visit Diagnoses Not on filedocumented in this encounter Care Teams Waiter/Waitress Economy Class Relationship Specialty Start Date End Date Wayne Jaimes [address] [place] [address] PCP - General Internal Medicine 02/16/22 Reilly Baker MD, PHD Surgeon Neurosurgery 01/20/22 Dafne Hilton MD [address] [place] [address] Specialist Cardiology 10/13/22 Desi Swenson NP [address] [place] [address] Cardiology 02/29/24 documented as of this encounter
--- OUTSIDE RECORDS SUMMARY | 2024-11-21 16:25 | XMS_ITS | Encounter Summary ---
Author Organization [facility] Address [address] [place] [address] Care Team Providers Care Computer Lab Aide Name Role Phone Brett Velásquez MD Primary Care Provider Keisha Luna MD Primary Care Provider [phone] Brett Velásquez MD Primary Care Provider Reilly Stewart MD, PHD Unavailable Unava ilable Brett Velásquez MD Primary Care Provider Wayne Dickson Primary Care Provider [phone] Dafne Hilton MD Unavailable [phone] Desi Swenson NP Unavailable [phone] Encounter Details Date Type Department Care Team Description 11/16/2014 Dry Room Attendant Report Medical Records [address] [place] [address] Rehab[facility] [place] Social History Tobacco Use Types Packs/Day Years [...] Type Specialty Care Team Description 04/29/2027 Dry Room Attendant Report Abstract, Provider documented as of this encounter Visit Diagnoses Not on filedocumented in this encounter Care Teams Computer Lab Aide Relationship Specialty Start Date End Date Brett Velásquez MD PCP - General Internal Medicine 10/29/11 06/19/15 Keisha Chavez MD [address] [place] [address] PCP - General Internal Medicine 06/20/15 04/20/16 Brett Velásquez MD PCP - General Internal Medicine 04/21/16 01/25/22 Brett Velásquez MD PCP - General Internal Medicine 01/26/22 02/15/22 Wayne Jaimes [address] [place] [address] PCP - General Internal Medicine 02/16/22 Reilly Baker MD, PHD [address] [place] [address] Surgeon Neurosurgery 01/20/22 Dafne Hilton MD [address] [place] [address] Specialist Cardiology 10/13/22 Desi Swenson NP [address] [place] [address] Cardiology 02/29/24 documented as of this encounter
--- OUTSIDE RECORDS SUMMARY | 2024-11-21 16:25 | XMS_ITS | Encounter Summary ---
Author Organization [facility] Address [address] [place] [address] Care Team Providers Care Union Carpenter Name Role Phone Brett Velásquez MD Primary Care Provider Reilly Stewart MD, PHD Unavailable Unaar Brett Villegas MD Primary Care Provider Wayne Dickson Primary Care Provider [phone] Dafne Hilton MD Unavailable [phone] Desi Swenson NP Unavailable Reason for Visit * Reason Onset Date Comments Medication 12/05/2021 Encounter Details Date Type Department Care Team Description 12/05/2021 Telephone [facility] Medical [facility] 175 [facility] [address] [place] [address] Ena Whipple PA-C [address] [address] Medication Social History Tobacco Use Types Packs/Day [...] Date Type Specialty Care Team Description 04/29/2027 Pipeline Systems Operator Report Abstract, Provider documented as of this encounter Visit Diagnoses Not on filedocumented in this encounter Care Teams Union Carpenter Relationship Specialty Start Date End Date Brett Velásquez MD PCP - General Internal Medicine 04/21/16 01/25/22 Brett Velásquez MD PCP - General Internal Medicine 01/26/22 02/15/22 Wayne Jaimes [address] [place] [address] PCP - General Internal Medicine 02/16/22 Reilly Baker MD, PHD Surgeon Neurosurgery 01/20/22 Dafne Hilton MD [address] [place] [address] Specialist Cardiology 10/13/22 Desi Swenson NP [address] [place] [address] Cardiology 02/29/24 documented as of this encounter
--- OUTSIDE RECORDS SUMMARY | 2024-11-21 16:25 | XMS_ITS | Encounter Summary ---
Author Organization [facility] Address [address] [place] [address] Care Team Providers Care Milk Route Deliverer Name Role Phone Brett Velásquez MD Primary Care Provider Keisha Luna MD Primary Care Provider [phone] Brett Velásquez MD Primary Care Provider Reilly Stewart MD, PHD Unavailable Unava ilable Brett Velásquez MD Primary Care Provider Wayne Dickson Primary Care Provider [phone] Dafne Hilton MD Unavailable [phone] Desi Swenson NP Unavailable [phone] Encounter Details Date Type Department Care Team Description 06/18/2014 Lay Brother Report Medical Records [address] [place] [address] Aleksandar Huggins MD Social History Tobacco Use [...] Date Type Specialty Care Team Description 04/29/2027 Lay Brother Report Abstract, Provider documented as of this encounter Visit Diagnoses Not on filedocumented in this encounter Care Teams Milk Route Deliverer Relationship Specialty Start Date End Date Brett Velásquez MD PCP - General Internal Medicine 10/29/11 06/19/15 Keisha Chavez MD [address] [place] [address] PCP - General Internal Medicine 06/20/15 04/20/16 Brett Velásquez MD PCP - General Internal Medicine 04/21/16 01/25/22 Brett Velásquez MD PCP - General Internal Medicine 01/26/22 02/15/22 Wayne Jaimes [address] [place] [address] PCP - General Internal Medicine 02/16/22 Reilly Baker MD, PHD [address] [place] [address] Surgeon Neurosurgery 01/20/22 Dafne Hilton MD [address] [place] [address] Specialist Cardiology 10/13/22 Desi Swenson NP [address] [place] [address] Cardiology 02/29/24 documented as of this encounter
--- OUTSIDE RECORDS SUMMARY | 2024-11-21 16:25 | XMS_ITS | Clinical Summary ---
Author Organization [facility] Address [address] [place] [address] Care Team Providers Care Welding Systems And Equipment Repairer Name Role Phone Brett Velásquez MD Primary Care Provider [phone] Allergies No known active allergies Medications Medication [...] age to complete this topic Care Teams Welding Systems And Equipment Repairer Relationship Specialty Start Date End Date Brett Velásquez MD PCP - General Internal Medicine 10/20/17
--- OUTSIDE RECORDS SUMMARY | 2024-11-21 16:25 | XMS_ITS | Encounter Summary ---
Author Organization Formerly [facility] Address [address] [place] [address] Care Team Providers Care Mine Engineering Manager Name Role Phone Brett Velásquez MD Primary Care Provider Reilly Stewart MD, PHD Unavailable Unava ilBrett Bailon MD Primary Care Provider Wayne Dickson Primary Care Provider [phone] Dafne Hilton MD Unavailable [phone] Desi Swenson NP Unavailable [phone] Encounter Details Date Type Department Care Team Description 01/23/2019 Release of Information Medical Records [address] [place] [id number] Abstract, Provider Social History Tobacco Use Types [...] Date Type Specialty Care Team Description 04/29/2027 Toolroom Attendant Report Abstract, Provider documented as of this encounter Visit Diagnoses Not on filedocumented in this encounter Care Teams Mine Engineering Manager Relationship Specialty Start Date End Date Brett Velásquez MD PCP - General Internal Medicine 04/21/16 01/25/22 Brett Velásquez MD PCP - General Internal Medicine 01/26/22 02/15/22 Wayne Jaimes [address] [place] [address] PCP - General Internal Medicine 02/16/22 Reilly Baker MD, PHD Surgeon Neurosurgery 01/20/22 Dafne Hilton MD [address] [place] [address] Specialist Cardiology 10/13/22 Desi Swenson NP [address] [place] [address] Cardiology 02/29/24 documented as of this encounter
--- OUTSIDE RECORDS SUMMARY | 2024-11-21 16:25 | XMS_ITS | Encounter Summary ---
Author Organization [facility] Address [address] [place] [address] Care Team Providers Care Phlebotomy Instructor Name Role Phone Brett Velásquez MD Primary Care Provider Reilly Stewart MD, PHD Unavailable Unava Brett Villegas MD Primary Care Provider Wayne Dickson Primary Care Provider [phone] Dafne Hilton MD Unavailable [phone] Desi Swenson NP Unavailable [phone] Encounter Details Date Type Department Care Team Description 07/20/2019 [facility] Medical Records [address] [place] [address] Lalit Salamanca MD [address] [place] [address] Social History Tobacco Use Types Packs/Day Years [...] Type Specialty Care Team Description 04/29/2027 Securities Underwriter Report Abstract, Provider documented as of this encounter Visit Diagnoses Not on filedocumented in this encounter Care Teams Phlebotomy Instructor Relationship Specialty Start Date End Date Brett Velásquez MD PCP - General Internal Medicine 04/21/16 01/25/22 Brett Velásquez MD PCP - General Internal Medicine 01/26/22 02/15/22 Wayne Jaimes [address] [place] [address] PCP - General Internal Medicine 02/16/22 Reilly Baker MD, PHD Surgeon Neurosurgery 01/20/22 Dafne Hilton MD [address] [place] [address] Specialist Cardiology 10/13/22 Desi Swenson NP [address] [place] [address] Cardiology 02/29/24 documented as of this encounter
--- OUTSIDE RECORDS SUMMARY | 2024-11-21 16:25 | XMS_ITS | Encounter Summary ---
Author Organization [facility] Address [address] [place] [address] Care Team Providers Care Shop Assistant Name Role Phone Brett Velásquez MD Primary Care Provider Reilly Stewart MD, PHD Unavailable Unafl Brett Villegas MD Primary Care Provider Wayne Dickson Primary Care Provider [phone] Dafne Hilton MD Unavailable [phone] Desi Swenson NP Unavailable [phone] Reason for Visit * Reason Onset Date Comments injection 02/02/2019 Encounter Details Date Type Department Care Team Description 02/02/2019 Telephone Physiatry - [address] [address] Sonny Abrams PA-C injection Social History Tobacco [...] Type Specialty Care Team Description 04/29/2027 Manager Of Financial Reporting Report Abstract, Provider documented as of this encounter Visit Diagnoses Not on filedocumented in this encounter Care Teams Shop Assistant Relationship Specialty Start Date End Date Brett Velásquez MD PCP - General Internal Medicine 04/21/16 01/25/22 Brett Velásquez MD PCP - General Internal Medicine 01/26/22 02/15/22 Wayne Jaimes [address] [place] [address] PCP - General Internal Medicine 02/16/22 Reilly Baker MD, PHD Surgeon Neurosurgery 01/20/22 Dafne Hilton MD [address] [place] [address] Specialist Cardiology 10/13/22 Desi Swenson NP [address] [place] [address] Cardiology 02/29/24 documented as of this encounter
--- OUTSIDE RECORDS SUMMARY | 2024-11-21 16:25 | XMS_ITS | Encounter Summary ---
Author Organization [facility] Address [address] [place] [address] Care Team Providers Care Pss Delivery Professional Name Role Phone Brett Velásquez MD Primary Care Provider Reilly Stewart MD, PHD Unavailable Unava ilBrett Bailon MD Primary Care Provider Wayne Dickson Primary Care Provider [phone] Dafne Hilton MD Unavailable [phone] Desi Swenson NP Unavailable [phone] Encounter Details Date Type Department Care Team Description 07/21/2019 Release of Information Medical Records [address] [place] [address] Abstract, Provider Social History Tobacco Use Types [...] Date Type Specialty Care Team Description 04/29/2027 Salesperson Terrazzo Tiles Report Abstract, Provider documented as of this encounter Visit Diagnoses Not on filedocumented in this encounter Care Teams Pss Delivery Professional Relationship Specialty Start Date End Date Brett Velásquez MD PCP - General Internal Medicine 04/21/16 01/25/22 Brett Velásquez MD PCP - General Internal Medicine 01/26/22 02/15/22 Wayne Jaimes [address] [place] [address] PCP - General Internal Medicine 02/16/22 Reilly Baker MD, PHD Surgeon Neurosurgery 01/20/22 Dafne Hliton MD [address] [place] [address] Specialist Cardiology 10/13/22 Desi Swenson NP [address] [place] [address] Cardiology 02/29/24 documented as of this encounter
--- OUTSIDE RECORDS SUMMARY | 2024-11-21 16:25 | XMS_ITS | Encounter Summary ---
Author Organization [facility] Address [address] [place] [address] Care Team Providers Care Optical Fabrication Technician Name Role Phone Brett Velásquez MD Primary Care Provider Reilly Stewart MD, PHD Unavailable Unava ilBrett Bailon MD Primary Care Provider Wayne Dickson Primary Care Provider [phone] Dafne Hilton MD Unavailable [phone] Desi Swenson NP Unavailable [phone] Encounter Details Date Type Department Care Team Description 09/05/2019 [facility] Medical Records [address] [place] [address] Vladislav Antunez DO Social History Tobacco Use [...] Date Type Specialty Care Team Description 04/29/2027 Pcb Designer Report Abstract, Provider documented as of this encounter Visit Diagnoses Not on filedocumented in this encounter Care Teams Optical Fabrication Technician Relationship Specialty Start Date End Date Brett Velásquez MD PCP - General Internal Medicine 04/21/16 01/25/22 Brett Velásquez MD PCP - General Internal Medicine 01/26/22 02/15/22 Wayne Jaimes [address] [place] [address] PCP - General Internal Medicine 02/16/22 Reilly Baker MD, PHD Surgeon Neurosurgery 01/20/22 Dafne Hilton MD [address] [place] [address] Specialist Cardiology 10/13/22 Desi Swenson NP [address] [place] [address] Cardiology 02/29/24 documented as of this encounter
--- OUTSIDE RECORDS SUMMARY | 2024-11-21 16:25 | XMS_ITS | Encounter Summary ---
Author Organization [facility] Address [address] [place] [address] Care Team Providers Care Print Manager Name Role Phone Brett Velásquez MD Primary Care Provider Reilly Stewart MD, PHD Unavailable Unava Brett Villegas MD Primary Care Provider Wayne Dickson Primary Care Provider [phone] Dafne Hilton MD Unavailable [phone] Desi Swenson NP Unavailable [phone] Reason for Referral * Non MARTITA (Routine) - Authorized/Booked Specialty Diagnoses / Procedures Referred By Contac t Referred To Contact ORTHOPEDICS / Orthopedic Diagnoses Osteoarthritis of knees, bilateral Procedures REFERRAL TO ORTHOPEDICS (IN NETWORK) Brett Velásquez MD [address] [place] [address] Hermes Alegre MD [address] [facility] [address] [place] [address] Referral ID Status Reason Start Date Expiration Date V isits Requested Visits Authorized [id number] Authorized/ Booked 01/29/2021 01/29/2022 12 12 Reason for Visit * Reason Onset Date Comments Builder Beam Feedback 01/22/2021 Ortho Encounter Details Date Type Department Care Team Description 01/22/2021 Telephone Adult Medicine [address] [place] [address] Brett Velásquez MD Builder Beam Feedback (Ortho ) Social History Tobacco Use [...] Date Type Specialty Care Team Description 04/29/2027 Rn Lactation Consultant Report Abstract, Provider documented as of this encounter Visit Diagnoses Not on filedocumented in this encounter Care Teams Print Manager Relationship Specialty Start Date End Date Brett Velásquez MD PCP - General Internal Medicine 04/21/16 01/25/22 Brett Velásquez MD PCP - General Internal Medicine 01/26/22 02/15/22 Wayne Jaimes [address] [place] [address] PCP - General Internal Medicine 02/16/22 Reilly Baker MD, PHD Surgeon Neurosurgery 01/20/22 Dafne Hilton MD [address] [place] [address] Specialist Cardiology 10/13/22 Desi Swenson NP [address] [place] [address] Cardiology 02/29/24 documented as of this encounter
--- OUTSIDE RECORDS SUMMARY | 2024-11-21 16:25 | XMS_ITS | Encounter Summary ---
Author Organization [facility] Address [address] [place] [address] Care Team Providers Care Superintendent [employer] Name Role Phone Reilly Baker MD, PHD Unavailable Unava ilWayne Osborne Primary Care Provider [phone] Dafne Hilton MD Unavailable [phone] Desi Swenson NP Unavailable [phone] Encounter Details Date Type Department Care Team Description 05/06/2023 Orders Only Medical Records [address] [place] [address] Ankita Mckeon NP Social History Tobacco Use [...] Date Type Specialty Care Team Description 04/29/2027 Beauty Shop Manager Report Abstract, Provider documented as of this encounter Procedures Procedure Name Priority Date/Time Associated Diagnosis Comments OUTSIDE LAB Routine 04/05/2023 documented in this encounter Results * OUTSIDE LAB (04/05/2023) Ankita Mckeon NP LAB documented in this encounter Visit Diagnoses Not on filedocumented in this encounter Care Teams Superintendent [employer] Relationship Specialty Start Date End Date Wayne Jaimes [address] [place] [address] PCP - General Internal Medicine 02/16/22 Reilly Baker MD, PHD Surgeon Neurosurgery 01/20/22 Dafne Hilton MD [address] [place] [address] Specialist Cardiology 10/13/22 Desi Swenson NP [address] [place] [address] Cardiology 02/29/24 documented as of this encounter
--- OUTSIDE RECORDS SUMMARY | 2024-11-21 16:25 | XMS_ITS | Encounter Summary ---
Author Organization [facility] Address [address] [place] [address] Care Team Providers Care Dealer Development Manager Name Role Phone Brett Velásquez MD Primary Care Provider Reilly Stewart MD, PHD Unavailable UnaBrett Davis MD Primary Care Provider Wayne Dickson Primary Care Provider Dafne Hilton MD Unavailable [phone] Desi Swenson NP Unavailable [phone] Encounter Details Date Type Department Care Team Description 10/31/2021 [facility] [address] [address] Ena Whipple, PA-C [address] [address] Social History Tobacco Use Types Packs/Day Years [...] Date Type Specialty Care Team Description 04/29/2027 Graphics Software Engineer Report Abstract, Provider documented as of this encounter Visit Diagnoses Not on filedocumented in this encounter Care Teams Dealer Development Manager Relationship Specialty Start Date End Date Brett Velásquez MD PCP - General Internal Medicine 04/21/16 01/25/22 Brett Velásquez MD PCP - General Internal Medicine 01/26/22 02/15/22 Wayne Jaimes [address] [place] [address] PCP - General Internal Medicine 02/16/22 Reilly Baker MD, PHD Surgeon Neurosurgery 01/20/22 Dafne Hilton MD [address] [place] [address] Specialist Cardiology 10/13/22 Desi Swenson NP [address] [place] [address] Cardiology 02/29/24 documented as of this encounter
--- OUTSIDE RECORDS SUMMARY | 2024-11-21 16:25 | XMS_ITS | Encounter Summary ---
Author Organization [facility] Address [address] [place] [address] Care Team Providers Care Top Waddy Name Role Phone Reilly Baker MD, PHD Unavailable Unava ilable Wayne Jaimes Primary Care Provider [phone] Dafne Hilton MD Unavailable [phone] Desi Swenson NP Unavailable [phone] Encounter Details Date Type Department Care Team Description 05/10/2023 Scratcher Report Medical Records [address] [place] [address] Gael Duvall Social History Tobacco Use Types [...] Date Type Specialty Care Team Description 04/29/2027 Scratcher Report Abstract, Provider documented as of this encounter Visit Diagnoses Not on filedocumented in this encounter Care Teams Top Waddy Relationship Specialty Start Date End Date Wayne Jaimes [address] [place] [address] PCP - General Internal Medicine 02/16/22 Reilly Baker MD, PHD Surgeon Neurosurgery 01/20/22 Dafne Hilton MD [address] [place] [address] Specialist Cardiology 10/13/22 Desi Swenson NP [address] [place], [place] [address] Cardiology 02/29/24 documented as of this encounter
--- OUTSIDE RECORDS SUMMARY | 2024-11-21 16:25 | XMS_ITS | Encounter Summary ---
Author Organization [facility] Address [address] [place] [address] Care Team Providers Care Big Data Engineer Name Role Phone Brett Velásquez MD Primary Care Provider Reilly Stewart MD, PHD Unavailable Brett España MD Primary Care Provider Wayne Dickson Primary Care Provider [phone] Dafne Hilton MD Unavailable [phone] Desi Swenson NP Unavailable [phone] Reason for Visit * Reason Onset Date Comments Medication Injection, Joint 12/04/2021 LVM advising pt. call [facility] [phone] and provide consent to dispense Gelsyn inj to our office Encounter Details Date Type Department Care Team Description 12/04/2021 Telephone [facility] [address] [address] Ena Whipple PAVenice [address] [address] Medication Injection, Joint (LVM advising pt. call [facility] [phone] and provide consent to dispense Gelsyn inj [...] Type Specialty Care Team Description 04/29/2027 Customs Compliance Analyst Report Abstract, Provider documented as of this encounter Visit Diagnoses Not on filedocumented in this encounter Care Teams Big Data Engineer Relationship Specialty Start Date End Date Brett Velásquez MD PCP - General Internal Medicine 04/21/16 01/25/22 Brett Velásquez MD PCP - General Internal Medicine 01/26/22 02/15/22 Wayne Jaimes [address] [place] [address] PCP - General Internal Medicine 02/16/22 Reilly Baker MD, PHD Surgeon Neurosurgery 01/20/22 Dafne Hilton MD [address] [place] [address] Specialist Cardiology 10/13/22 Desi Swenson NP [address] [place] [address] Cardiology 02/29/24 documented as of this encounter
--- OUTSIDE RECORDS SUMMARY | 2024-11-21 16:25 | XMS_ITS | Encounter Summary ---
Author Organization [facility] Address [address] [place] [address] Care Team Providers Care Senior Software Project Manager Name Role Phone Reilly Baker MD, PHD Unavailable Unava ilable Wayne Jaimes Primary Care Provider [phone] Dafne Hilton MD Unavailable [phone] Desi Swenson NP Unavailable [phone] Encounter Details Date Type Department Care Team Description 05/05/2023 Manager Field Services Report Medical Records [address] [place] [address] Aleksandar Huggins MD Social History Tobacco Use [...] Type Specialty Care Team Description 04/29/2027 Manager Field Services Report Abstract, Provider documented as of this encounter Visit Diagnoses Not on filedocumented in this encounter Care Teams Senior Software Project Manager Relationship Specialty Start Date End Date Wayne Jaimes [address] [place], [place] [id number] PCP - General Internal Medicine 02/16/22 Reilly Baker MD, PHD Surgeon Neurosurgery 01/20/22 Dafne Hilton MD [address] [place] [address] Specialist Cardiology 10/13/22 Desi Swenson NP [address] [place], [place] [address] Cardiology 02/29/24 documented as of this encounter
--- OUTSIDE RECORDS SUMMARY | 2024-11-21 16:25 | XMS_ITS | Encounter Summary ---
Author Organization [facility] Address [address] [place] [address] Care Team Providers Care Peace Officer Name Role Phone Reilly Baker MD, PHD Unavailable Unava ilable Wayne Jaimes Primary Care Provider [phone] Dafne Hilton MD Unavailable [phone] Desi Swenson NP Unavailable [phone] Encounter Details Date Type Department Care Team Description 03/21/2024 Food Service Sales Representatives Report Medical Records [address] [place] [address] Vladislav Antunez DO Social History Tobacco Use [...] Type Specialty Care Team Description 04/29/2027 Food Service Sales Representatives Report Abstract, Provider documented as of this encounter Visit Diagnoses Not on filedocumented in this encounter Care Teams Peace Officer Relationship Specialty Start Date End Date Wayne Jaimes [address] [place] [address] PCP - General Internal Medicine 02/16/22 Reilly Baker MD, PHD Surgeon Neurosurgery 01/20/22 Dafne Hilton MD [address] [place] [address] Specialist Cardiology 10/13/22 Desi Swenson NP [address] [place] [address] Cardiology 02/29/24 documented as of this encounter
--- OUTSIDE RECORDS SUMMARY | 2024-11-21 16:25 | XMS_ITS | Encounter Summary ---
Author Organization [facility] Address [address] [place] [address] Care Team Providers Care Cath Lab Technologist Name Role Phone Reilly Baker MD, PHD Unavailable Unava ilable Wayne Jaimes Primary Care Provider [phone] Dafne Hilton MD Unavailable [phone] Desi Swenson NP Unavailable [phone] Encounter Details Date Type Department Care Team Description 04/15/2023 Needle Loom Operator Helper Report Medical Records [address] [place] [address] Vladislav Antunez DO Social History Tobacco Use [...] Date Type Specialty Care Team Description 04/29/2027 Needle Loom Operator Helper Report Abstract, Provider documented as of this encounter Visit Diagnoses Not on filedocumented in this encounter Care Teams Cath Lab Technologist Relationship Specialty Start Date End Date Wayne Jaimes [address] [place] [address] PCP - General Internal Medicine 02/16/22 Reilly Baker MD, PHD Surgeon Neurosurgery 01/20/22 Dafne Hilton MD [address] [place] [address] Specialist Cardiology 10/13/22 Desi Swenson NP [address] [place], [place] [address] Cardiology 02/29/24 documented as of this encounter
== END 2024-11-21 16:47 | disposition home or self-care (01) ==
LOC: HO.HMCFM 15:44
PROVIDERS: PCP Internal Medicine; Visit Provider Internal Medicine
DX: Z00.00 Encounter for general adult medical examination without abnormal findings (principal); I10 Essential (primary) hypertension; I72.9 Aneurysm of unspecified site; K21.00 Gastro-esophageal reflux disease with esophagitis, without bleeding; I25.10 Atherosclerotic heart disease of native coronary artery without angina pectoris

== ENCOUNTER → 2024-11-21 15:43 | Outpatient (BNVA) | payer OTHER, SELFPAY | PROVIDERS: PCP Internal Medicine; Visit Provider Internal Medicine | DX: Z13.89 Encounter for screening for other disorder (principal) ==

== ENCOUNTER 2024-11-23 15:43 | Outpatient (AMB) | payer OTHER, SELFPAY ==
--- NOTE | 2024-11-23 15:49 | A.OFFVIS_ITS ---
Vital Signs 11/23/24 15:57 Height 5 ft 4 in Weight 147 lb BMI 25.2 BP 116/70 Blood Pressure Location Rt brachial Position Sitting Pulse 54 Pulse Source Pulse Oximeter Pulse Oximetry (%) 97 Oxygen Delivery Method Room Air Intake Visit Reasons: follow up CIC Intake Note: ESTABLISHED PATIENT for mgmt of CIC, SSBE, PUD CC; C.O. GERD w/ dysphagia despite current tx. Pt also reports a foreign body sensation in his esophagus. Pt would like to review most recent EGD results to determine if any follow up diagnostics are necessary. Pt also reports having smaller, skinny stools which sometimes are mixed with BRB (hematochezia). Pt also feels he has difficulty evacuating his bowels. 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: Comment: 06/2024 EGD, should be repeated every 2 years because of this and peptic ulcer disease and a higher genetic predisposition to stomach cancer in Turkish people's Code(s): K22.70 - Soto's esophagus without dysplasia Category: Medical (2) Erosive gastritis: Code(s): K29.60 - Other gastritis without bleeding Category: Medical (3) Chronic idiopathic constipation: Code(s): K59.04 - Chronic idiopathic constipation Category: Medical (4) Peptic ulcer disease: Code(s): K27.9 - Peptic ulcer, site unspecified, unspecified as acute or chronic, without hemorrhage or perforation Category: Medical Plan Turkish #[id number] He is taking the aciphex qam and the cimetidine qhs but has not seen much of a difference. I will add carafate 1 g q noon, I am cautious with this given his baseline CIC. He has Linzess 145mcg, but was only taking it prn ROV 8 weeks. Medications: New sucralfate (Carafate) 1 g PO QNOON 30 tabs 3RF K22.70 - Soto's esophagus without dysplasia, K27.9 - Peptic ulcer, site unspecified, unspecified as acute or chronic, without hemorrhage or perforation, K29.60 - Other gastritis without bleeding Refilled linaclotide (Linzess) Take first thing in the morning with a full glass of water. 145 mcg PO QAM 30 caps 6RF K58.1 - Irritable bowel syndrome with constipation BARIUM SWALLOW 07/2024 FINDINGS: Lateral cine images of the oropharynx and hypopharynx demonstrate normal swallow mechanism with normal epiglottic inversion and soft palate elevation. Trace laryngeal penetration is seen with thick barium. No tracheal penetration, glottic or subglottic aspiration identified. No nasopharyngeal reflux present. There is ballooning of the hypopharynx with mild cricopharyngeal achalasia present. Surgical clips are present in the anterior neck. Dual and single contrast images of the esophagus demonstrate a normal caliber, and contour. There is a granular appearance of the esophageal mucosa, suggestive of esophagitis. No evidence of stricture, mass, or ulcerations are identified. Esophageal peristalsis is moderately disorganized. A small type I hiatal hernia is present. No significant gastroesophageal reflux was seen during the course of the examination and on reflux views. Dual contrast and single contrast images of the stomach demonstrated normal contour and mucosal pattern without evidence of mass, ulceration, or other abnormality. Contrast freely passed into the gastric antrum and duodenal bulb without delay. Single and air-contrast images of the duodenal bulb demonstrate no abnormality. The duodenal sweep has a normal appearance, course, and mucosal fold appearance. The imaged proximal jejunum has a normal fold pattern and caliber. FLUOROSCOPY TIME: 4 minutes 17 seconds Number of Spot Images: 7 Number of Cine: 15 DOSE AREA PRODUCT: 2164 uGy-m2 (microgray-meter squared) FL/FL barium swallow IMPRESSION: 1. Trace laryngeal penetration with thick barium. 2. Ballooning of the hypopharynx with associated mild cricopharyngeal achalasia. 3. Surgical clips are present in the anterior neck, consistent with prior history of thyroidectomy. 4. Granular appearance of the esophageal mucosa, suggestive of esophagitis. 5. Moderately disorganized esophageal peristalsis. 6. Small type I hiatal hernia. TODAY'S VISIT Turkish #[id number] He just had a cardiac stent procedure so his is on more medicines. THis was in response to CP. He is having alot of fatigue, he is unsure if this is r/t all of the new medicines. He has been having worsening dysphagia that occurs above the area of the voice box very high in the throat, at times he chokes even on water. He also has a globus sensation. At this point with the ballooning on the barium swallow, I fear he may have a rare condition of chricopharyngeal achalasia. Because of this I would ask him to see on of our physicians for an opinion. He ia agreeable. He says that he at times feels he is not emptying his bowels completely, but he is not taking the LInzess r/t his overall pill burden - but he has it if he feels he needs it. He continues on sucralfate and pantorpazole. ROV next with for possible cricopharyngeal achalasia. [facility] Medical History (Updated 11/23/24 @ 17:07 by PHONG Lombardi) Acute gouty arthritis Perianal dermatitis SOB (shortness of breath) on exertion Finger laceration with complication Encounter to establish care Trigger finger Thyroid nodule Surgical History (Updated 11/23/24 @ 16:33 by PHONG Lombardi) S/P cardiac cath H/O colonoscopy History of esophagogastroduodenoscopy (EGD) Hx of cataract extraction History of thyroid surgery History of prostate surgery Family History Sister Arthritis Mother Heart disease Lung cancer Father Hypertension Sister Thyroid cancer Social History Household Members: Spouse Housing: Apartment Are you a primary long term care phlebotomist to a significant other at home: No Do you presently have visiting nurse or other home services: No Alcohol intake: never Patient Tobacco Use Status: Never used Tobacco e-Cigarette/Vaping Use: Never Used Second Hand Smoke Exposure: No service: No Current occupational status: employed 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 Current occupational exposures/hazards: No Cognitive needs: No Hearing needs: No Vision needs: No Review of Systems Const Denies fatigue, Denies fever(s), Denies night sweats, Denies poor appetite and Denies weight loss ENT Reports Normal hearing present, Denies dental pain, Reports dysphagia, Denies hearing loss, Denies mouth pain, Denies odynophagia, Denies throat swelling, Denies tongue swelling and Reports other (Dentition adequate) Card Reports chest pain Resp Reports no additional complaints GI Details: Denies abdominal pain, Denies melena, Denies bloating, Denies hematochezia, Denies constipation, Denies GI cramping, Reports dysphagia, Denies excessive flatus, Denies early satiety, Reports heartburn, Denies diarrhea, Denies nausea, Denies odynophagia, Denies vomiting and Denies hematemesis Skin/Breast Denies pruritus, Denies lesions, Denies rash and Denies jaundice Neuro Reports Normal hearing present and Denies Abnormal speech present Endo Denies fatigue Aller/Immun Denies throat swelling and Denies tongue swelling Physical Exam Vital Signs: Last Vital Signs Pulse 54 11/23/24 15:57 BP 116/70 11/23/24 15:57 Pulse Ox 97 11/23/24 15:57 Oxygen Delivery Method Room Air 11/23/24 15:57 BMI result Body Mass Index 25.2 Const General: cooperative, no acute distress, well developed and well groomed Nutritional Appearance: average body habitus and well nourished Orientation/consciousness: oriented to person, oriented to place and oriented to time Limitations: language barrier HEENT Head: Yes normocephalic and Yes atraumatic Eyes General: appearance normal, both eyes and all related structures Pupils: Equal, round and reactive pupils present Neck Neck: Yes normal visual inspection and Yes no lymphadenopathy Thyroid: Thyroid normal Resp Effort & Inspection: normal respiratory effort and able to speak in complete sentences Auscultation: clear to auscultation bilaterally Cardio Rate: regular rate Rhythm: regular rhythm Heart sounds: Normal, physiologic split S2 sound present Peripheral pulses: radial pulses present and posterior tibial pulses present GI Inspection: No distended and No Abdominal panniculus present Palpation (GI): Soft to palpation, nontender, no guarding, not rigid and No hepatosplenomegaly present Percussion: Yes normal to percussion Auscultation: normal bowel sounds Rectal Exam - Male: Yes deferred Skin General skin exam: no rashes or lesions noted, turgor normal, skin not dry, no jaundice, No spider nevi and no striae Rashes: no rashes Nails: normal Neuro General: oriented to person, oriented to place and oriented to time Cranial nerves: Yes Equal, round and reactive pupils present and Yes Normal hearing present Speech: No Abnormal speech present Extrem General: Yes normal to inspection, No clubbing, No cyanosis and No edema Psych Appearance: grossly normal and well kempt Mental Status: mental status grossly normal Speech and movement: Normal speech and movement present Affect: normal affect Attitude: cooperative Thought process: Normal thought process present and not confabulating Thought content: Normal thought content present Insight: Limited insight present (Psych) Judgement: Limited judgement present (Psych) Assessment & Plan Assessment & Plan (1) Cricopharyngeal dysphagia: Comment: With ballooning of esophagus on 07/2024 barium swallow 2. Ballooning of the hypopharynx with associated mild cricopharyngeal achalasia. 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: Comment: 06/2024 EGD, should be repeated every 2 years because of this and peptic ulcer disease and a higher genetic predisposition to stomach cancer in Turkish people's Code(s): K22.70 - Soto's esophagus without dysplasia Category: Medical (4) Erosive gastritis: Code(s): K29.60 - Other gastritis without bleeding Category: Medical (5) GERD with esophagitis: Code(s): K21.00 - Gastro-esophageal reflux disease with esophagitis, without bleeding Category: Medical Qualifiers: Esophagitis bleeding: unspecified whether hemorrhage Qualified Code(s): K21.00 - Gastro-esophageal reflux disease with esophagitis, without bleeding Plan Turkish #[id number] He just had a cardiac stent procedure so his is on more medicines. THis was in response to CP. He is having alot of fatigue, he is unsure if this is r/t all of the new medicines. He has been having worsening dysphagia that occurs above the area of the voice box very high in the throat, at times he chokes even on water. He also has a globus sensation. At this point with the ballooning on the barium swallow, I fear he may have a rare condition of chricopharyngeal achalasia. Because of this I would ask him to see on of our physicians for an opinion. He ia agreeable. He says that he at times feels he is not emptying his bowels completely, but he is not taking the LInzess r/t his overall pill burden - but he has it if he feels he needs it. He continues on sucralfate and pantorpazole. ROV next with MD for possible cricopharyngeal achalasia. 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
[2024-11-23 15:57] VITALS: BP 116/70; PULSE 54; O2SAT 97; BMI 25.2
--- OUTSIDE RECORDS SUMMARY | 2024-11-23 16:03 | XMS_ITS ---
Author Name [facility] Organization Unknown Encounters Encounter Type Encounter Reason Primary Diagnosis Location Date Ambulatory [facility] 04/21/2024 Care Team Organization Name Specialty Phone Email Start Date End Da te [facility]ly [facility] 2024
--- OUTSIDE RECORDS SUMMARY | 2024-11-23 16:03 | XMS_ITS | Encounter Summary ---
Author Organization [facility] Address [address] [place] [address] Care Team Providers Care Heel Layer Name Role Phone Shelbie Upton MD Primary Care Provider [phone] Reason for Referral * Orthopedic (Routine) - Pending Review Specialty Diagnoses / Procedures Referred By Julia marmolejo Referred To Contact Orthopedic Surgery / Orthopaedic Surgery Diagnoses Primary osteoarthritis of right knee Primary osteoarthritis of left knee Procedures L Inj/Asp: bilateral knee Wen Herrmann NP [address] [address] Phone: tel: fax: Referral ID Status Reason Start Date Expiration Date V isits Requested Visits Authorized [id number] Pending Review 11/23/2024 11/23/2025 1 1 Reason for Visit * Reason Comments Injections 1st euflexxa injecti on B/L kneesBUY AND BILL Encounter Details Date Type Department Care Team (Latest Contact Info) Description 11/23/2024 3:00 PM EDT Procedure visit Orthopedic Surgery - [place] [address] [address] Wen Herrmann NP [address] [address] Primary osteoarthritis of right knee (Primary Dx); Primary osteoarthritis of left knee Social History Tobacco Use Types Packs/Day Years [...] as of this encounter Progress Notes * Wen Herrmann, ILDA - 11/23/2024 3:00 PM EDTAssociated Order(s): L Inj/Asp: bilateral knee Post-Procedure Diagnose(s): Primary osteoarthritis of left knee; Primary osteoarthritis of right knee CHIEF COMPLAINT: Injections (1st euflexxa injection B/L knees/BUY AND BILL ) had concerns including Injections (1st euflexxa injection B/L knees/BUY AND BILL ). IDENTIFIER: Laina Lewis is a 69 y.o. old male. HPI: Patient presents for viscosupplementation injection with Euflexxa for the treatment of bilateral knee osteoarthritis. Patient has undergone viscosupplementation injections in the past with sustained relief for about 5 months. Last injections April 2024 provided him relief up until recently. He ishere today for his first in a series of 3 Euflexxa injections for bilateral knees. He has attended physical therapy in the past. Ambulates unassisted. PAST MEDICAL: Patient Active Problem List Diagnosis Date Noted Proteinuria 11/15/2024 Straining with stools 08/27/2023 Chronic midline low back pain without sciatica 08/09/2023 Dizziness 04/30/2023 Coronary artery disease involving [place] coronary artery of [place] heart with angina pectoris ([facility] V24) 12/17/2022 ST elevation (STEMI) myocardial infarction ([facility] V24, [facility] V28) 12/11/2022 Benign prostatic hyperplasia without lower urinary tract symptoms 10/06/2022 White coat syndrome with hypertension 08/14/2022 Gastroesophageal reflux disease with esophagitis without hemorrhage 08/14/2022 JENNIFER (obstructive sleep apnea) 08/14/2022 Ganglion cyst of flexor tendon sheath 08/05/2022 Trigger finger, left middle finger 08/05/2022 Gastric erosions 04/27/2022 Passage of loose stools 04/27/2022 Elevated random blood glucose level 11/07/2020 Multiple renal cysts 05/08/2020 Liver enzyme elevation 04/09/2020 Unilateral partial vocal cord paralysis 04/09/2020 S/P TURP 02/22/2020 Constipation 01/26/2020 Chronic nonintractable headache 01/26/2020 Vertigo 01/26/2020 Status post thyroidectomy 08/03/2019 Thyroid nodule 06/29/2019 Allergic rhinitis due to pollen 09/20/2018 BPH associated with nocturia 11/16/2017 Herpes zoster without complication 10/15/2017 Lumbar disc herniation with radiculopathy 12/10/2016 Osteoarthritis 12/10/2016 Esophageal reflux 11/28/2014 Mild tricuspid regurgitation 10/18/2014 Proteinuria 09/27/2014 Hematuria, microscopic 07/13/2013 Chronic gout without tophus 12/17/2011 PAST SURGICAL HISTORY: Past Surgical History: Procedure Laterality Date COLONOSCOPY 10/05/11 PROCEDURE: HISTORICAL COLONOSCOPY; COMMENT: [facility] - hemorrhoids otherwise normal to the cecum COLONOSCOPY 02/14/2019 PROCEDURE: HISTORICAL COLONOSCOPY; COMMENT: Dr. Auguste - 2 rectal adenomatous polyps. internal hemorrhoids. repeat 5 years. OTHER SURGICAL HISTORY PROCEDURE: HISTORICAL UNSPECIFIED SURGERY; COMMENT: facial bone fracture repair OTHER SURGICAL HISTORY 2019 PROCEDURE: HISTORICAL SUBTOTAL THYROIDECTOMY; COMMENT: dr. hernandez 2019 OTHER SURGICAL HISTORY 06/2020 PROCEDURE: HISTORICAL UNSPECIFIED SURGERY; COMMENT: urethral stricture repair- Dr. Bell TURP / TRANSURETHRAL INCISION / DRAINAGE PROSTATE 02/20/2020 PROCEDURE: HISTORICAL TURP; COMMENT: dr. bell UPPER GASTROINTESTINAL ENDOSCOPY 01/13/2017 PROCEDURE: SD UPPER GI ENDOSCOPY PERFORMED; COMMENT: normal UPPER GASTROINTESTINAL ENDOSCOPY 03/08/12 PROCEDURE: SD UPPER GI ENDOSCOPY PERFORMED; COMMENT: normal UPPER GASTROINTESTINAL ENDOSCOPY 09/17/2020 PROCEDURE: SD UPPER GI ENDOSCOPY PERFORMED; COMMENT: Normal findings. Biopsies of the midesophagus:Normal. ACTIVE MEDICATIONS: No outpatient medications have been marked as taking for the 11/23/24 encounter (Procedure visit) with Wen Herrmann NP. ALLERGIES: No Known Allergies PHYSICAL EXAM: There were no vitals filed for this visit. There is no height or weight on file to calculate BMI. APPEARANCE: Alert and in no acute distress EXTREMITIES: distal lower extremities warm and well perfused without cyanosis or edema. Skin over bilateral knees is intact without any rashes or lesions. No erythema or warmth. No effusion. No calf tenderness. Sensation circulation intact distally. IMAGING: Date of Visit: 08/10/2023 Reason for visit: Bilateral knee pain Views: AP, Lateral, [place], [place] bilateral knee Findings: Mild narrowing of the medial and lateral joint spaces of bilateral knees, no soft tissue abnormalities or bony lesions. Small enthesophyte superior patella bilateral knees. Impression: Mild osteoarthritis bilateral knees IMPRESSION: 1. Primary osteoarthritis of right knee 2. Primary osteoarthritis of left knee PLAN: Patient was educated about the gradual nature of the effect of this type of medication, and it can take several weeks after third injection to feel noticeable effects from the medication. Patient to follow up in 1 week for the next injection. Patient verbalized an understanding and agreement with plan. Bilateral Procedure: After discussion of risks and benefits, informed consent was verbally obtained for BILATERAL knee viscosupplementation gel injection. The lateral arthroscopic soft spots were identified and marked. They were sterilized with chlorhexidine and alcohol and anesthetized with ethyl chloride spray. I then injected Euflexxa 20 mg / 2 mL intra-articularly into each knee without resistance. Hemostasis was achieved and a sterile Band-Aids were applied. The patient tolerated the procedure well. Postinjection risks and instructions were reviewed including activity modification, cold therapy, potential NSAIDs use, and monitoring for signs of complications. L Inj/Asp: bilateral knee Indications: pain Details: 22 G needle, anterolateral approach Medications (Right): 20 mg sodium hyaluronate (viscosup) 10 mg/mL(mw 2.4 -3.6 million) Medications (Left): 20 mg sodium hyaluronate (viscosup) 10 mg/mL(mw 2.4 -3.6 million) Outcome: tolerated well, no immediate complications Informed Consent: Laterality: Bilateral Relevant images/test results available and reviewed: yes Health status cleared: Yes Procedure/treatment, purpose, treatment alternatives, risks/potential complications and benefits explained: yes Risk/complications/benefits details: Risks and benefits associated with the injection reviewed which can include but not limited to infection, bleeding, bruising, transient synovitis, no improvement in symptoms. Patient questions answered: yes Patient agrees, verbalizes understanding, and wants to proceed: yes Consent given by: Patient Informed consent discussion completed by Physician/ROSEMARY with patient: Verbal Pre-procedure timeout performed: yes Maryam Herrmann NP [address] [address] W: [phone] F: [phone] Portions of this note were dictated utilizing the speech recognition software. Cosigned by Mario Gomez MD at 11/23/2024 3:34 PM EDT documented in this encounter Plan of Treatment Upcoming Encounters Date Type Department Care Team ([facility] st Contact Info) Description 11/30/2024 3:00 PM EDT Procedure visit Orthopedic Surgery [address] [phone] Wen Herrmann NP [address] [address] 12/07/2024 9:00 AM EDT Procedure visit Orthopedic Surgery [address] [address] Wen Herrmann NP [address] [address] 11/14/2025 3:00 PM EDT Office Visit Nephrology [address] [phone] Eduard Mccormick MD [address] [address] documented as of this encounter Procedures Procedure Name Priority Date/Time Associated Diagnosis Comments SD ARTHROCENTESIS/ASP IRATION/INJECTION MAJOR JOINT/BURSA W/O U/S GUIDANCE Routine 11/23/2024 3:00 PM EDT Primary osteoarthritis of right knee Primary osteoarthritis of left knee documented in this encounter Results * SD ARTHROCENTESIS/ASPIRATION/INJECTION MAJOR JOINT/BURSA W/O U/S GUIDANCE (11/23/2024 3:00 PM EDT) Mario Jordan MD - 11/23/2024 3:00 PM EDT Wen Herrmann NP ? 11/23/2024 ??3:05 PM L Inj/Asp: bilateral knee Indications: pain Details: 22 G needle, anterolateral approach Medications (Right): 20 mg sodium hyaluronate (viscosup) 10 mg/mL(mw 2.4 -3.6 million) Medications (Left): 20 mg sodium hyaluronate (viscosup) 10 mg/mL(mw 2.4 -3.6 million) Outcome: tolerated well, no immediate complications Informed Consent: ??Laterality: ??Bilateral ??Relevant images/test results available and reviewed: yes ?Health status cleared: ??Yes ??Procedure/treatment, purpose, treatment alternatives, risks/potential complications and benefits explained: yes ?Risk/complications/benefits details: ??Risks and benefits associated with the injection reviewed which can include but not limited to infection, bleeding, bruising, transient synovitis, no improvement in symptoms. ??Patient questions answered: yes ?Patient agrees, verbalizes understanding, and wants to proceed: yes ?Consent given by: ??Patient ??Informed consent discussion completed by Physician/ROSEMARY with patient: ?? Verbal ??Pre-procedure timeout performed: yes ?? us Wen Herrmann [facility]/BEDSIDE ORDER LOGAN Final Result documented in this encounter Visit Diagnoses Diagnosis Primary osteoarthritis of right knee- Primary Primary osteoarthritis of left knee documented in this encounter Administered Medications Inactive Administered Medications - up to 3 most recent administrations Medication Order MAR Action Action Date Dose Rate Site sodium hyaluronate (viscosup) intra-articular injection 20 mg 20 mg, intra-articular, Once PRN Procedure, Starting on Susanna 11/23/24 at 1500, For 1 doseIndications:Primary osteoarthritis of right knee,Primary osteoarthritis of left knee Given 11/23/2024 3:00 PM EDT 20 mg sodium hyaluronate (viscosup) intra-articular injection 20 mg 20 mg, intra-articular, Once PRN Procedure, Starting on Susanna 11/23/24 at 1500, For 1 doseIndications:Primary osteoarthritis of right knee,Primary osteoarthritis of left knee Given 11/23/2024 3:00 PM EDT 20 mg documented in this encounter Care Teams Heel Layer Relationship Specialty Start Date End Date Shelbie Upton MD [address] [place] [id number] PCP - General Internal Medicine 10/31/24 documented as of this encounter
--- OUTSIDE RECORDS SUMMARY | 2024-11-23 16:03 | XMS_ITS ---
Author Organization [facility] Address [address] [facility] [address] [place] [address] Care Team Providers Care Plastic Block Boiler Reliner Name Role Phone Wayne Jaimes MD Primary Care Provider DESI Burks Unavailable [phone] Allergies No Known Allergies REASON FOR VISIT [...] Active Diclofenac Sodium 1 % as directed Sql Consultant ally place 1 g onto the [...] N/A Encounters Encounter Location Date Provider Diagnosis [facility] [address] [address] 07/10/2024 DESI LI Onychomycosis B35.1 ; Calcium [...] Date Notes Efinaconazole 10 % 1 application Sql Consultant ally Once a day for 90 days [...] Name:DESI LI, 01/10/2025 02:45:00 PM, [address] [facility] [address], [place], [address], Medications Administered Medication Instructions Date of Administration Dosage Notes dexAMETHasone Sod Phosphate PF 07/10/2024 0.5 m L Kenalog 07/10/2024 0.5 mL Progress Notes * Mckinley LEWISOB:1955 ([age] yo M)Acc No.[id number]:07/10/2024 Progress Note Patient:Laina SANDOVAL Provider:?Desi Li DPM :1955???Age:68 Y???Sex:Male Nael e:07/10/2024 Address:[address] [place], [place] [address] Pcp:Wayne Jaimes MD Subjective: * Chief Complaints: [...] bilaterally, protective sensation intact 10/10 with 5.07 [place] Alisha bilaterally, vibratory sensation with tuning fork [...] RT J1100 INJ DEXAMETHASONE SODIM PHOSHATE 1 [id number] INJ TRIAMCINOLONE ACETONIDE 10 MG * Follow Up:?3 Months * Billing Information: * Visit Code:? 91228 Office Visit, Est Pt., Level 4. Modifiers: 25 * Procedure Codes:? DRAIN/INJECT, SMALL JOINT/BURSA. Modifiers: RT J1100 INJ DEXAMETHASONE SODIM PHOSHATE 1 MG. J3301 INJ TRIAMCINOLONE ACETONIDE 10 MG. * Sign off status: Completed true * Provider:?Desi Li DPM Date:? 07/10/2024 Generated for Tatiana lema/Nilsa/Saraitting on:?11/23/2024 02:46 PM EDT History and Physical Notes * [...] bilaterally, protective sensation intact 10/10 with 5.07 [place] Alisha bilaterally, vibratory sensation with tuning fork [...]
--- OUTSIDE RECORDS SUMMARY | 2024-11-23 16:03 | XMS_ITS | Encounter Summary ---
Author Organization [employer] [facility] Address [address] [place] [address] 7 [place] [address] Care Team Providers Care Mash Filter Operator Name Role Phone Unavailable Primary Care Provider Unavailabl e Encounter Details Date Type Department Care Team (Latest Contact Info) Description 01/15/2021 Abstract [facility] CONVERSIONS Dental, Provider, DDS Social History [...]
--- OUTSIDE RECORDS SUMMARY | 2024-11-23 16:03 | XMS_ITS | Clinical Summary ---
Author Organization [employer] Address [address] [place] [address] 7 [place] [address] Care Team Providers Care Cotton Broker Name Role Phone Unavailable Primary Care Provider [...]
--- OUTSIDE RECORDS SUMMARY | 2024-11-23 16:03 | XMS_ITS | Patient Health Record ---
Author Organization [facility] Address [address] [facility] [address] [place] [address] Care Team Providers Care Cyber Ops Planner Name Role Phone Wayne Jaimes MD Primary Care Provider JORGE L Burks Unavailable [phone] Allergies No Known Allergies Reason For Referral [...] Active Diclofenac Sodium 1 % as directed Appliance Service Technician ally place 1 g onto the skin [...] Problem Status W/U Status Risk Notes Problem 875083108751663 Primary osteoarthritis, right ankle and foot (M19.071) Active confirmed Problem 206431111 Primary osteoarthritis, left 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) Active confirmed Problem 836254732 Equinus contracture of right ankle (M24.571) Active confirmed Problem 9554599 Psoriasis (L40.9) Active confirmed Problem Lumbar radiculopathy, right (M54.16) Active confirmed Problem 121241525 Calcium pyrophosphate deposition disease (CPPD) (M11.20) Active [...] N/A Encounters Encounter Location Date Provider Diagnosis [facility] [address] 12/24/2023 JORGE L REDDY Onychomycosis B35.1 ; Calcium pyrophosphate deposition disease (CPPD) M11.20 ; Psoriasis L40.9 ; Hallux limitus of left foot M20.5X2 ; Hallux limitus of right foot M20.5X1 and Lumbar radiculopathy, right M54.16 [facility] [address] [address] 04/10/2024 JORGE L REDDY Onychomycosis B35.1 ; Calcium pyrophosphate deposition disease (CPPD) M11.20 ; Psoriasis L40.9 ; Hallux limitus of left foot M20.5X2 ; Hallux limitus of right foot M20.5X1 ; Lumbar radiculopathy, right M54.16 ; Achilles tendinitis, right leg M76.61 and Achilles tendinitis, left leg M76.62 [facility] [address] [address] 07/10/2024 JORGE L REDDY Onychomycosis B35.1 ; Calcium pyrophosphate deposition disease (CPPD) M11.20 ; Psoriasis L40.9 ; Hallux limitus of left foot M20.5X2 ; Hallux limitus of right foot M20.5X1 ; Lumbar radiculopathy, right M54.16 ; Achilles tendinitis, right leg M76.61 and Achilles tendinitis, left leg M76.62 [facility] [address] [address] 10/11/2024 JORGE L REDDY Onychomycosis B35.1 ; [...] L REDDY, 01/10/2025 02:45:00 PM, [address] [facility] [address], [place], [address], Insurance Providers Payer Name Payer Address Payer Phone Subscriber Number Group Number Insured Name Patient Relationship to Insured Coverage Start Date Coverage End Date [employer] care medicare community plan [address] [address] [place] [address] [id number] Self - patient is the insured [...]
--- OUTSIDE RECORDS SUMMARY | 2024-11-23 16:03 | XMS_ITS | Encounter Summary ---
Author Organization [employer] [facility] Address [address] [place] [address] 7 [place] [address] Care Team Providers Care Equipment Maintenance Supervisor Name Role Phone Unavailable Primary Care Provider Unavailabl e Encounter Details Date Type Department Care Team (Latest Contact Info) Description 01/23/2022 Abstract [facility] CONVERSIONS Dental, Provider, DDS Social History [...]
--- OUTSIDE RECORDS SUMMARY | 2024-11-23 16:03 | XMS_ITS | Clinical Summary ---
Author Organization [facility] Address [address] [place] [address] Phone Care Team Providers Care Electrical Instrument Repairer Name Role Phone Shelbie Upton MD Primary Care Provider [phone] Allergies No known active allergies Medications bisacodyL [...] times daily as needed. 021 2024 Discontinued Hospital, Clinic, or Other Facility Administered Medication Ordered Dose Route Frequency Start Date End Date Status sodium hyaluronate (viscosup) intra-articular injection 20 mgIndications:Primary osteoarthritis of right knee,Primary osteoarthritis of left knee 20 mg IAtc Once PRN Procedure 11/23/2024 11/23/2024 Ended sodium hyaluronate (viscosup) intra-articular injection 20 mgIndications:Primary osteoarthritis of right knee,Primary osteoarthritis of left knee 20 mg IAtc Once PRN Procedure 11/23/2024 11/23/2024 Ended Active Problems Problem Noted Date Diagnosed Date Proteinuria 11/15/2024 Straining with stools 08/27/2023 Chronic midline low back pain without sciatica 0 08/09/2023 Dizziness 04/30/2023 Coronary artery disease invo lving [place] coronary artery of [place] heart with angina pectoris ([facility] V24) 12/17/2022 ST elevation (STEMI) myocard ial infarction ([facility] V24, [facility] V28) 12/11/2022 Benign prostatic hyperplasia without [...] Encounters Date Type Department Care Team Description 11/23/2024 3:00 PM EDT Procedure visit Orthopedic Surgery [facility] [address] [phone] eWn Herrmann NP Primary osteoarthritis of right knee (Primary Dx); Primary osteoarthritis of left knee 11/15/2024 3:15 PM EDT Office Visit Nephrology - [address] [phone] Eduard Mccormick MD Other proteinuria (Primary Dx) 11/13/2024 Telephone Nephrology - [address] [phone] Eduard Mccormick MD Labs Only 10/31/2024 12:33 PM EDT - 10/31/2024 11:59 PM EDT Hospital Encounter [facility] Xray [address] [place] [phone] Pain Discharge Disposition: Home or Self Care 10/31/2024 11:40 AM EDT Anesthesia Event [facility] Pain Management [address] [place] [phone] Bolivar Palmer MD 10/31/2024 9:43 AM EDT - 10/31/2024 11:59 PM EDT Hospital Encounter [facility] [address] [place] [phone] Vladislav Antunez DO Radiculopathy, lumbar region Discharge Disposition: Home or Self Care 10/04/2024 3:30 PM EDT Office Visit Orthopedic Surgery - [address] [address] Wen Herrmann NP Primary osteoarthritis of [...] fracture repair UPPER GASTROINTESTINAL ENDOSCOPY 01/13/2017 PROCEDURE: TN UPPER GI ENDOSCOPY PERFORMED; COMMENT: normal UPPER GASTROINTESTINAL ENDOSCOPY 03/08/12 PROCEDURE: TN UPPER GI ENDOSCOPY PERFORMED; COMMENT: normal OTHER SURGICAL HISTORY 2019 PROCEDURE: HISTORICAL SUBTOTAL THYROIDECTOMY; COMMENT: dr. hernandez 2020 TURP / TRANSURETHRAL INCISIO N / DRAINAGE PROSTATE 02/20/2020 PROCEDURE: HISTORICAL TURP; COMMENT: dr. bell COLONOSCOPY 02/14/2019 PROCEDURE: HISTORICAL COLONOSCOPY; COMMENT: Dr. Auguste - Trudy rectal adenomatous polyps. internal hemorrhoids. repeat 5 years. OTHER SURGICAL HISTORY 06/2020 PROCEDURE: HISTORICAL UNSPECIFIED SURGERY; COMMENT: urethral stricture repair- Dr. Bell UPPER GASTROINTESTINAL ENDOSCOPY 09/17/2020 PROCEDURE: TN UPPER GI ENDOSCOPY PERFORMED; COMMENT: Normal findings. [...] type 2, controlled, with complications ([facility]) Straining with stools DX:Straini ng with stools Asthma DX:Asthma Gastric erosions DX:Gastric eros ions Passage of loose stools DX:Passa ge of loose stools Coronary artery disease invo lving [place] coronary artery of [place] heart with angina pectoris (CMS/HCC V24) 12/17/2022 DX:Coronary artery disease involving [place] coronary artery of [place] heart with angina pectoris (HCC) Esophageal dysmotility [...] Care Team (Late st Contact Info) Description 11/30/2024 3:00 PM EDT Procedure visit Orthopedic Surgery [facility] [address] [phone] Wen Herrmann NP [address] [address] 12/07/2024 9:00 AM EDT Procedure visit Orthopedic Surgery - [place] [address] [phone] Wen Herrmann NP [address] [address] 11/14/2025 3:00 PM EDT Office Visit Nephrology [address] [place] [address] Eduard Mccormick MD [address] [facility] [address] [place] [address] Health Maintenance Due Date Last Done Comments [...] Procedure Name Priority Date/Time Associated Diagnosis Comments TN ARTHROCENTESIS/ASPI RATION/INJECTION MAJOR JOINT/BURSA W/O U/S GUIDANCE Routine 11/23/2024 3:00 PM EDT Primary osteoarthritis of right knee Primary osteoarthritis of left knee BUN Routine 11/14/2024 1:45 PM EDT Proteinuria, unspecified type CREATININE, SERUM Routine 11/14/2024 1:4 5 PM EDT Proteinuria, unspecified type ELECTROLYTE PANEL Routine 11/14/2024 1:4 5 PM EDT Proteinuria, unspecified type PROTEIN AND CREATININE WITH RATIO, URINE Routine 11/14/2024 1:45 PM EDT Proteinuria, unspecified type PROCEDURAL ECG Routine 10/31/2024 10:53 AM EDT from Last 3 Months Results * TN ARTHROCENTESIS/ASPIRATION/INJECTION MAJOR JOINT/BURSA W/O U/S GUIDANCE (11/23/2024 3:00 PM EDT) Mario Joradn MD - 11/23/2024 3:00 PM EDT Wen [...] timeout performed: yes ?? us Wen Herrmann CABIN FURNISHINGS INSTALLER IN CLINIC/BEDSIDE ORDER LOGAN Final Result * Protein and creatinine with ratio, urine (11/14/2024 1:45 PM EDT) Protein, Urine 9 mg/dL LAB CHEMISTRY METHOD 11/14/2024 6:[address] [facility] Prot/Creat, Ur 0.11 <=0.20 mg/mg creat LAB CHEMISTRY METHOD 11/14/2024 6:[address] [facility] Creatinine, Urine 81.0 mg/dL LAB CHEMISTRY METHOD 11/14/2024 6:[address] [facility] Urine Urine specimen obtained by clean catch procedure / Unknown Non-blood Collection / Unknown 11/14/2024 1:45 PM EDT 11/14/2024 1:45 PM EDT us dEuard Mccormick MD LAB URINE ORDERABLES Final Resu lt Performing Organization Address [facility] de Phone Number [facility] [address] [place] [address], [place] [phone] * Creatinine (11/14/2024 1:45 PM EDT) Creatinine 0.95 0.70 - 1.30 mg/dL LAB CHEMISTRY METHOD 11/14/2024 5:[address] [facility] eGFR 86 >=60 mL/min/1. 73m2 LAB CHEMISTRY METHOD 11/14/2024 5:[address] [facility] Comment:Calculation based on the Chronic Kidney Disease Epidemiology Collaboration (CKD-EPI) equation refit without adjustment for race. Blood Venous blood specimen / Unknown Venipuncture / Unknown 11/14/2024 1:45 PM EDT 11/14/2024 1:45 PM EDT us Eduard Mccormick MD LAB BLOOD ORDERABLES Final Resu lt Performing Organization Address City/[facility]/ZIP Co de Phone Number [facility] [address] [place] [address], [place] [phone] * BUN (11/14/2024 1:45 PM EDT) BUN 21 5 - 25 mg/dL LAB CHEMISTRY METHOD 11/14/2024 5:[address] [facility] Blood Venous blood specimen / Unknown Venipuncture / Unknown 11/14/2024 1:45 PM EDT 11/14/2024 1:45 PM EDT us Eduard Mccormick MD LAB BLOOD ORDERABLES Final Resu lt Performing Organization Address [facility] Co de Phone Number [facility] [address] [place] [address], [place] [phone] * Electrolyte panel (11/14/2024 1:45 PM EDT) [facility] Sodium 138 133 - 145 mmol/L LAB CHEMISTRY METHOD 11/14/2024 5:[address] [facility] Potassium 3.9 3.5 - 5.5 mmol/L LAB CHEMISTRY METHOD 11/14/2024 5:[address] [facility] Chloride 103 96 - 110 mmol/L LAB CHEMISTRY METHOD 11/14/2024 5:[address] [facility] CO2 28 21 - 32 mmol/L LAB CHEMISTRY METHOD 11/14/2024 5:[address] [facility] Anion Gap 7 3 - 11 LAB CHEMISTRY METHOD 11/14/2024 5:[address] [facility] Blood Venous blood specimen / Unknown Venipuncture / Unknown 11/14/2024 1:45 PM EDT 11/14/2024 1:45 PM EDT us Eduard Mccormick MD LAB BLOOD ORDERABLES Final Resu lt Performing Organization Address [facility]/ZIP Co de Phone Number [facility] [address] [place] [address], [place] [phone] * ECG 12 lead - Procedural (No Charge) (10/31/2024 10:53 AM EDT) Ventricular Rate ECG 49 BPM GEMUSE Atrial Rate 49 BPM GEMUSE P-R Interval 130 ms GEMUSE QRS Duration 84 ms GEMUSE Q-T Interval 452 ms GEMUSE QTc 408 ms GEMUSE P Wave Prosperity 16 degrees GEMUSE R Prosperity -2 degrees GEMUSE T Prosperity 11 degrees GEMUSE ECG Interpretation Sinus bradycardia Otherwise normal ECG When compared with ECG of 14-JAN-2023 21:02, No significant change was found Confirmed by Trevon COPPOLA, LAUREN ([id number]) on 10/31/2024 12:25:35 PM GEMUSE 10/31/2024 10:5 3 AM EDT 10/31/2024 12:25 PM EDT us Bolivar Palmer MD ECG ORDERABLES Final Result GEMUSE from Last 3 Months Insurance MEDICAID - [place] [employer] MEDICARE Care Teams Electrical Instrument Repairer Relationship Specialty Start Date End Date Shelbie Upton MD [address] [place] [id number] PCP - General Internal Medicine 10/31/24
--- OUTSIDE RECORDS SUMMARY | 2024-11-23 16:03 | XMS_ITS ---
Author Organization [facility] Address [address] [facility] [address] [place] [address] Care Team Providers Care Polymerization Engineer Name Role Phone Wayne Jaimes MD Primary Care Provider DESI Burks Unavailable [phone] Allergies No Known Allergies REASON FOR VISIT [...] Active Diclofenac Sodium 1 % as directed Generator Rebuilder ally place 1 g onto the skin [...] 10/11/2024 Encounters Encounter Location Date Provider Diagnosis [facility] [address] [facility] [address] [place] [address] 10/11/2024 DESI LI Onychomycosis B35.1 ; Calcium [...] days 10/11/2024 Efinaconazole 10 % 1 application Generator Rebuilder ally Once a day for 90 days [...] Name:DESI LI, 01/10/2025 02:45:00 PM, [address] [address], [place], [address], Progress Notes * Mckinley LEWISOB:1955 ([age] yo M)Acc No.[id number]:10/11/2024 Progress Note Patient:?Laina LEWIS Provider:?Desi Li DPM :1955???Age:68 Y???Sex:Male Nael e:10/11/2024 Address:[address] [place], [place] [id number] Pcp:Wayne Jaimes MD Subjective: * Chief Complaints: [...] bilaterally, protective sensation intact 10/10 with 5.07 [place] Alisha bilaterally, vibratory sensation with tuning fork [...] Months * Billing Information: * Visit Code:? 10695 Office Visit, Est Pt., Level 4. * Procedure Codes:? * Sign off status: Completed true * Provider:?Desi Li DPM Date:? 10/11/2024 Generated for Tatiana lema/Nilsa/Kamillesmitting on:?11/23/2024 02:46 PM EDT History and Physical [...] bilaterally, protective sensation intact 10/10 with 5.07 [place] Alisha bilaterally, vibratory sensation with tuning fork [...]
--- OUTSIDE RECORDS SUMMARY | 2024-11-23 16:03 | XMS_ITS ---
Author Organization [facility] Address [address] [facility] [address] [place] [address] Care Team Providers Care Leather Flesher Name Role Phone Wayne Jaimes MD Primary Care Provider DESI Burks Unavailable [phone] Allergies No Known Allergies REASON FOR VISIT [...] Diclofenac Sodium 1 % as directed Glass Etcher ally place 1 g onto the skin [...] N/A Encounters Encounter Location Date Provider Diagnosis [facility] [address] [facility] [address] [place] [address] 04/10/2024 DESI LI Onychomycosis B35.1 ; Calcium [...] Notes Efinaconazole 10 % 1 application Glass Etcher ally Once a day for 90 days [...] Name:DESI LI, 01/10/2025 02:45:00 PM, [address], [address], Medications Administered Medication Instructions Date of Administration Dosage Notes dexAMETHasone Sod Phosphate PF 04/10/2024 0.5 m L Kenalog 04/10/2024 0.5 mL Progress Notes * Mckinley LEWISOB:1955 (5 0 yo M)Acc No.[id number]:04/10/2024 Progress Note Patient:?Laina LEWIS Provider:?Desi Li DPM :1955???Age:68 Y???Sex:Male Nael e:04/10/2024 Address:[address] [place], [place] [phone] Pcp:Wayne Jaimes MD Subjective: * Chief Complaints: [...] bilaterally, protective sensation intact 10/10 with 5.07 [place] Alisha bilaterally, vibratory sensation with tuning fork [...] RT J1100 INJ DEXAMETHASONE SODIM PHOSHATE 1 [id number] INJ TRIAMCINOLONE ACETONIDE 10 MG * Follow Up:?3 Months * Billing Information: * Visit Code:? 96683 Office Visit, Est Pt., Level 4. Modifiers: 25 * Procedure Codes:? 44544 DRAIN/INJECT, SMALL JOINT/BURSA. Modifiers: RT J1100 INJ DEXAMETHASONE SODIM PHOSHATE 1 MG. J3301 INJ TRIAMCINOLONE ACETONIDE 10 MG. * Sign off status: Completed true * Provider:?Desi Li DPM Date:? 04/10/2024 Generated for Tatiana lema/Nilsa/Gol on:?11/23/2024 02:46 PM EDT History and Physical [...] bilaterally, protective sensation intact 10/10 with 5.07 [place] Alisha bilaterally, vibratory sensation with tuning fork [...]
--- OUTSIDE RECORDS SUMMARY | 2024-11-23 16:03 | XMS_ITS | Clinical Summary ---
Author Organization [facility] Address [address] [place] [address] Care Team Providers Care Crime Laboratory Analyst Name Role Phone Brett Velásquez MD Primary Care Provider [phone] Allergies No known active allergies Medications Medication [...] age to complete this topic Care Teams Crime Laboratory Analyst Relationship Specialty Start Date End Date Brett Velásquez MD PCP - General Internal Medicine 10/20/17
--- OUTSIDE RECORDS SUMMARY | 2024-11-23 16:03 | XMS_ITS | Clinical Summary ---
Author Organization [facility] Address [address] [facility] [address] [place] [address] Phone Care Team Providers Care Faro Dealer Name Role Phone Shelbie Upton MD Primary Care Provider [phone] Allergies No known active allergies Medications albuterol [...] Only [facility] [address] [address] Eduard Mccormick MD from Last [...] 1:45 PM EDT) Protein, Ur 9 mg/dL [facility] Urine Protein/Creati nine Ratio 0.11 <=0.20 mg/mg creat [facility] Creatinine, Urine 81.0 mg/dL [facility] 11/14/2024 1:45 PM EDT 11/14/2024 4:16 PM EDT Eduard Mccormick MD LAB URINE ORDERABLES Final Resu lt Performing Organization Address City/[facility]/ZIP Co de Phone Number [facility] [address] [place] [address] * BUN (11/14/2024 1:45 PM EDT) BUN 21 5 - 25 mg/dL [facility] 11/14/2024 1:45 PM EDT 11/14/2024 4:17 PM EDT Eduard Mccormick MD LAB BLOOD ORDERABLES Final Resu lt [facility] [address] [place] [address] * Creatinine, serum (11/14/2024 1:45 PM EDT) Pathologist [facility] Creatinine Serum 0.95 0.70 - 1.30 mg/dL [facility] eGFR 86 >=60 mL/min/1. 73m2 [facility] Comment:Calculation based on the Chronic Kidney Disease Epidemiology Collaboration (CKD-EPI) equation refit without adjustment for race. 11/14/2024 1:45 PM EDT 11/14/2024 4:17 PM EDT Eduard Mccormick MD LAB BLOOD ORDERABLES Final Resu lt Performing Organization Address [facility] de Phone Number [facility] [address] [place] [address] * Electrolyte panel (11/14/2024 1:45 PM EDT) Sodium 138 133 - 145 mmol/L [facility] Potassium 3.9 3.5 - 5.5 mmol/L [facility] Chloride 103 96 - 110 mmol/L [facility] Bicarbonate (CO2) 28 21 - 32 mmol/L [facility] Anion Gap 7 3 - 11 [facility] 11/14/2024 1:45 PM EDT 11/14/2024 4:17 PM EDT Eduard Mccormick MD LAB BLOOD ORDERABLES Final Resu lt Performing Organization Address [facility] de Phone Number [facility] [address] [place] [address] from Last 3 Months Insurance [place] Andrew Diaz ([id number]) Andrew Diaz ([id number]) Medicaid [place] Care Teams Faro Dealer Relationship Specialty Start Date End Date Shelbie Upton MD [address] [place] [address], [address] [place], [place] [id number] PCP - General Internal Medicine 02/04/24
== END 2024-11-23 16:37 | disposition home or self-care (01) ==
LOC: HO.HGI 15:43
PROVIDERS: PCP Internal Medicine; Visit Provider Nurse Practitioner
DX: R13.13 Dysphagia, pharyngeal phase (principal); K27.9 Peptic ulcer, site unspecified, unspecified as acute or chronic, without hemorrhage or perforation; K22.70 Barrett's esophagus without dysplasia; K29.60 Other gastritis without bleeding; K21.00 Gastro-esophageal reflux disease with esophagitis, without bleeding
CPT/HCPCS: 99213

== ENCOUNTER → 2024-11-23 15:43 | Outpatient (BNVA) | payer OTHER, SELFPAY | PROVIDERS: PCP Internal Medicine; Visit Provider Nurse Practitioner | DX: K22.70 Barrett's esophagus without dysplasia (principal); K29.60 Other gastritis without bleeding; K27.9 Peptic ulcer, site unspecified, unspecified as acute or chronic, without hemorrhage or perforation; K58.1 Irritable bowel syndrome with constipation; K21.00 Gastro-esophageal reflux disease with esophagitis, without bleeding; R13.13 Dysphagia, pharyngeal phase | CPT/HCPCS: 99212 ==

== ENCOUNTER 2025-01-24 12:49 | Outpatient (RCR) | payer OTHER, SELFPAY ==
--- NOTE | 2025-03-22 09:50 | MHC.SP.ADU ---
Referring provider: Vipin Cherry MD Reason for Referral: Dysphonia, hx VF paralysis Type of Treatment: 66764 Behavioral and Qualitative Analysis of Voice and Resonance Date of Plan of Treatment: 01/24/25 Onset of Symptoms/Illness: 12/15/19 Date Treatment Started: 01/24/25 Medical Diagnosis: Hx VF paralysis, GERD Primary Speech Language Diagnosis: R49.0 Dysphonia History Laina Lewis is a 69 year old male [facility] by Vipin Cherry MD from the [facility] of [facility]. 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 Per ENT, vocal fold paralysis resolved on last FOL in September 2020. Patient is also on PPI for GERD, but reports still experiencing breakthrough heartburn, as well as throat pain and hoarseness. Today patient indicates his concern pertains mainly to his difficulty swallowing and voice. Patient reports feeling food get stuck in his throat. ENT documents indicate patient had MBSS in August 2023 showing no aspiration. There was no record of this found at [facility]. Patient reports he believes he had his swallow study either here or at [facility]. There is record of Barium Swallow X-Ray 07/19/24 showing, ?Trace laryngeal penetration with thick barium. Ballooning of the hypopharynx with associated mild cricopharyngeal achalasia?Granular appearance of the esophageal mucosa, suggestive of esophagitis. Moderately disorganized esophageal peristalsis. Small type I hiatal hernia.? 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 At his last ENT visit, he was evaluated for laryngoscopy, during which montez was noted. Patient was reportedly treated for this twice with minimal benefit. Patient also has history of hemoptysis which resolved. Patient self-reports history of acid reflux, for which he is symptomatic, asthma, arthritis, heart attack, and thyroid issues. Patient speaks Persian, Lao, and Sao Tomean. He received his Bachelor?s degree in his home country for [employer]. 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 Patient is and has two adult children. Medication List: gabapentin, ezetimibe, metoprolol, sucralfate, linzess, myrbetriq, famotidine, rabeprazole sodium, lidocaine patch, diclofenze sodium, diclofenac sodium gel, jublia, albuterol HFA, lc tramadol, atorvastatin, aspirin Clinical Impression: Patient was seen with translation provided by certified medical dosimetrist. With oral neuromator examination, Laina displayed facial symmetry at rest and with labial retraction. He was able to puff his cheeks and maintain labial seal when pressure was applied. He was able to purse his lips for production of vowel ?oo? and retract his lips for production of ?ee.? Strength and range of motion of tongue, lips, and jaw are deemed to be within functional limits. Note intact and symmetrical velar elevation with phonation. While reading the [place], Laina?s average fundamental frequency was 163.1 Hz (203.4 Hz- 135.5 Hz) and average volume 77.4 dB (high-low 82.6 dB-70.9 dB). Laina?s s/z ratio (21.42/16.91) calculated to 1.27, and resulted in a coughing fit immediately after ceasing voicing on /z/. With ascending and descending glides, Laina exhibited reduced range, visible tension in the neck and shoulders, and rapid cessation of voicing. Laina reports he has difficulty sustaining higher notes, which is why he has not been able to sing in [employer]. Laina was instructed to prolong vowel /a/ for as long as he could at a comfortable volume. Three measures were combined to determine an average Maximum Phonation Duration, or Maximum Phonation Time (MPT). Laina?s average MPT was 15.81 seconds, which is within range of the aged male norm of 14.68 seconds (with SD= 6.25) for age 65 years and older (Joshua, Eugene, & Omar, 2011). Laina again evidenced observable tension and cessation of voicing followed by a coughing fit after vowel prolongation. Patient demonstrated mixed breath support using chest and stomach breathing at rest and with sustained phonation. Patient exhibited high laryngeal carriage, and did report tenderness on manual palpation and massage, especially on the right side of the larynx. Laina endorses history of asthma and sleep apnea, with use of a CPAP at night. He is followed by GI at [facility] before moving his care to [facility]. Patient continues to suffer from reflux and takes PPI to manage his symptoms. Laina reports drinking less than 1 liter of water a day. He denies smoking and reports he is typically not around any secondhand smoke. He denies alcohol consumption. Laina reports drinking 1 cup of coffee a day and does not drink any other caffeinated drinks. He used to sing in a [employer] choir but does not do this any longer due to his voice difficulties. Laina reports his vocal use consists mainly of 1:1 speaking at work for typical conversations, at times group discussions, and endorses sometimes raising his voice. Laina has routine periods of vocal rest for 4-5 hours every afternoon at home. Laina reports seeing a speech therapist at [facility] earlier this year, but did not initiate any treatment there due to the speech therapist leaving for maternity leave. Laina completed the following questionnaires: Voice Related Quality of Life (V-RQOL): Patient rates their voice in certain speaking situations over the past two weeks. Each statement is rated based on how frequently it occurs, with 1 indicating ?None, not a problem? and 5 indicating ?Problem is as bad as it can be.? Patient indicated a small problem with speaking loudly or being heard in noisy situations. He otherwise rated all other statements as ?not a problem.? His score of 11, indicating ?Excellent? or minimal impact to quality of life. Patient also completed the Voice Handicap Index (VHI) to gain insight in regards to the patient?s own perception of his voice problem and the emotional, physical, and functional impact of his voice problem. Patient indicated that his voice sometimes causes him to lose income, others having difficulty understanding him in a noisy room, and feeling as though he needs to strain to produce voice. He marked all other statements as ?never? occurring. Patient?s total score of 6 corroborates a normal or nearly normal voice handicap. Vocal Fatigue Index (VFI): Patient rates their self-perceived vocal fatigue. This index measures three factors, including ?Tiredness and Avoidance,? ?Physical Discomfort,? and ?Improvement with Rest.? Patient rates statements based on frequency of occurrence, with 0 indicating ?Never? and 4 indicating ?Always.? Patient indicated sometimes finding it difficult to project his voice, sore voice after talking, and throat aching after talking. He also reported frequently after voice use: discomfort in his neck, throat and neck pain at the end of the day, weak voice, effortful to produce voice, generally limiting talking after a period of voice use, hoarseness, increased sense of effort with speaking, and improved voice after resting. Patient?s total score of 26 in ratings of tiredness, 13 in ratings of physical discomfort, and ratings of 12 in improvement of symptoms with rest. Reflux Symptom Index (RSI): Patient rates statements related to his voice and reflux symptoms, from 0-5 based on severity with 0 indicating ?No Problem? and 5 indicating ?Problem as bad as it can be.? Laina indicated having a ?Severe Problem? with: ?Excess mucus or postnasal drip,? ?Difficulty swallowing food, liquids, or pills,? ?Sensations of something sticking n your throat or a lump in your throat,? ?Heartburn, chest pain, indigestion, or stomach acid coming up.? His total score of 36 significant concern for reflux (score greater than or equal to 13 as clinically significant). 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 Per ENT, vocal fold paralysis ?resolved on last FOL? in September 2020. Patient is presenting with mild dysphonia, characterized by hoarseness, reduced vocal range, and vocal fatigue, possibly with muscle tension component, as patient displayed high laryngeal carriage and also reports discomfort in his neck and tenderness on laryngeal palpation and throat/neck pain after a long day of talking. Mitigating factors include patient?s history of montez and GERD with breakthrough symptoms. Laina is recommended 8-10 weekly visits for speech therapy to address muscle tension dysphonia (MTD) and to train vocal hygiene practices. WAX POT TENDER to request records from ENT office with visualization of vocal folds. Other goals pending review of these records. 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 Laina will develop a vocal hygiene program and recall components of vocal hygiene with 100% accuracy independently. 2. Delisaul will use relaxation techniques to minimize tension in the larynx and reduce vocal fatigue. Short Term Goals: Goal # : 1.1. Laina will describe how voice is produced to include phonation, resonance, and respiration across 3 data collections. 1.2. Suchul will identify personal and general situations and settings that promote vocal abuse across 3 data collections. 1.3. Suchul will identify healthy voice alternatives and ways to promote vocal health in 80% of opportunities across 3 data collections. 1.4. Suchul will use abdominal/diaphragmatic breathing when producing sentences to support phonation in 80% of trials across 3 data sessions. 1.5. Suchul will eliminate throat clearing by replacing behaviors (i.e. taking sip of water, silent /h/ cough, hard swallow) during a 30-minute time period with minimal cues. Goal Status: New Goal Goal# : 2.1. Suchul will demonstrate proper technique for manual circumlaryngeal massage to relax the laryngeal structure in 4/5 opportunities with minimal verbal cuing. 2.2. Suchul will complete vocal function exercises in 8/10 opportunities with minimal verbal cuing. 2.3. Suchul will reduce vocal effort and fatigue by decreasing upper body tension with progressive relaxation in 4/5 opportunities with minimal cues across 3 sessions. 2.4. Suchul will use the yawn-sigh technique preceding the production of 2-3 word phrases in 8/10 opportunities when provided with minimal visual and verbal cues. Goal Status: New Goal Recommended Referrals to be Discussed with Primary Care Provider: ENT Consult Patient Education: Completed: Yes Patient/Caregiver Education: Described Results of Evaluation Patient expressed understanding of evaluation Patient requires further education on strategies Comments/Barriers to Learning: It was a pleasure meeting and working with Laina. Please do not hesitate to contact the [facility] at [phone] if we can be of further assistance. Plating Foreman Clinican/Clinical Fellow: No Supervisory Statement: N/A Speech Language Pathologist: Palma Rascon M.A., CCC-WAX POT TENDER
== END 2025-05-17 10:22 | disposition still patient (30) ==
LOC: HO.SH 12:49
PROVIDERS: PCP Internal Medicine; Visit Provider Otolaryngology
DX: R49.0 Dysphonia (principal)
CPT/HCPCS: 92524

== ENCOUNTER 2025-02-27 14:31 | Outpatient (AMB) | payer OTHER, SELFPAY ==
--- OUTSIDE RECORDS SUMMARY | 2025-02-22 19:14 | XMS_ITS | Encounter Summary ---
Author Organization [facility] Address [address] [place] [address] Care Team Providers Care Senior Software Project Manager Name Role Phone Shelbie Upton MD Primary Care Provider [phone] Reason for Referral * Imaging (Routine) - Pending Review Specialty Diagnoses / Procedures Referred By Contac t Referred To Contact Radiology Diagnoses Radiculopathy, lumbar region Spinal stenosis Procedures MR Lumbar Spine wo Contrast Vladislav Antunez DO [address] [place] [address] Phone: tel: fax: [facility] Referral ID Status Reason Start Date Expiration Date V isits Requested Visits Authorized [id number] Pending Review 02/22/2025 02/22/2026 1 1 Reason for Visit * Imaging (Routine) - Pending Review Specialty Diagnoses / Procedures Referred By Contac t Referred To Contact Radiology Diagnoses Radiculopathy, lumbar region Spinal stenosis Procedures MR Lumbar Spine wo Contrast Vladislav Antunez DO [address] [address] Phone: tel: fax: [facility] Referral ID Status Reason Start Date Expiration Date V isits Requested Visits Authorized [id number] Pending Review 02/22/2025 02/22/2026 1 1 Encounter Details Date Type Department Care Team (Latest Contact Info) Description 02/22/2025 7:14 PM EDT - 02/22/2025 11:59 PM EDT Hospital Encounter [facility] MRI [address] [place] [address] Radiculopathy, lumbar region; Spinal stenosis Discharge Disposition: Home or Self Care Social History Tobacco Use Types Packs/Day Years Used Date Smoking Tobacco: Never Passive Smoke Exposure: Never Smokeless Tobacco: Never Alcohol Use Standard [...] 6 (six) hours if needed for wheezing. 18 g 3 01/04/2025 aspirin 81 mg EC tablet Take 1 tablet (81 mg total) by mouth 1 (one) time each day. 06/11/2023 atorvastatin (LIPITOR) 10 mg tablet Take 1 tablet by mouth once daily 90 tablet 08/03/2024 betamethasone, augmented, (DIPROLENE-AF) 0.05 % cream Apply topically 1 (one) time each day. bisacodyL (Dulcolax, bisacodyl,) 5 mg EC tablet Take 2 tabs at 6pm as directed. 08/26/2023 cimetidine (TAGAMET) 800 mg tablet Take 1 tablet (800 mg total) by mouth at bedtime. diclofenac (VOLTAREN) 1 % topical gelIndications:Prim ellen osteoarthritis of right knee,Primary osteoarthritis of left knee Apply 4 g topically 4 (four) times a day if needed (pain or swelling). 100 g 5 12/07/2024 efinaconazole (Jublia) 10 % solution with applicator Apply topically. esomeprazole (NexIUM) [address] capsule Take 1 capsule (40 mg total) by mouth. 02/18/2023 ezetimibe (ZETIA) 10 mg tablet Take 1 tablet (10 mg total) by mouth 1 (one) time each day. famotidine (PEPCID) 20 mg tablet Take 1 tablet (20 mg total) by mouth 2 (two) times a day. fluticasone furoate-vilanteroL (Breo Ellipta) 100-25 mcg/dose inhaler Inhale 1 puff by mouth 1 (one) time each day. 60 each 01/04/2025 01/05/20 gabapentin (NEURONTIN) 300 mg capsule Take 1 capsule (300 mg total) by mouth if needed. inhalat.spacing dev,large mask spacer Please use with inhaler 09/28/2019 lidocaine (XYLOCAINE) 5 % ointment Apply topically 1 (one) time each day. lidocaine-prilocain e (EMLA) 2.5-2.5 % cream APPLY ONE GRAM OF CREAM TOPICALLY TO THE RIGHT AND LEFT FOOT TWICE DAILY DIRECTED FOR 30 DAYS 07/21/2023 losartan (COZAAR) 25 mg tablet Take 1 tablet (25 mg total) by mouth 1 (one) time each day. 90 each 11/15/2024 11/16/19 metoprolol succinate (TOPROL-XL) 25 mg 24 hr tablet Take 1 tablet (25 mg total) by mouth 1 (one) time each day. 12/08/2024 mirabegron (Myrbetriq) 50 mg tablet extended release 24 hr 24 hr tablet Take 1 tablet (50 mg total) by mouth 1 (one) time each day. montelukast (SINGULAIR) 10 mg tablet Take 1 tablet (10 mg total) by mouth at bedtime. 30 each 01/04/2025 01/05/20 nystatin (MYCOSTATIN) 100,000 unit/mL suspension Take 5 mL by mouth 2 (two) times a day. 05/10/2024 pantoprazole (PROTONIX) 20 mg EC tablet Take 1 tablet (20 mg total) by mouth 1 (one) time each day at the same time. pregabalin (LYRICA) 25 mg capsule Take 1 capsule (25 mg total) by mouth 1 (one) time each day. 11/26/2021 RABEprazole (ACIPHEX) 20 mg EC tablet Take by mouth. Do not crush, chew, or split. sucralfate (CARAFATE) 100 mg/mL suspension Take 10 mL (1 g total) by mouth 4 (four) times a day (before meals and nightly). 02/18/2023 tacrolimus (PROTOPIC) 0.1 % ointment APPLY 1 APPLICATION OF OINTMENT TOPICALLY TO THE RIGHT FOOT RASH ONCE DAILY 04/16/2023 tamsulosin (FLOMAX) 0.4 mg 24 hr capsule Take 1 capsule (0.4 mg total) by mouth 1 (one) time each day at the same time. ticagrelor (BRILINTA) 90 mg tablet Take 1 tablet (90 mg total) by mouth 2 (two) times a day. 04/06/2023 tiZANidine (ZANAFLEX) 4 mg tablet Take 1 tablet (4 mg total) by mouth. 09/18/2024 traMADoL (ULTRAM) 50 mg tablet Take 1 tablet (50 mg total) by mouth every 4 (four) hours if needed. triamcinolone (KENALOG) 0.1 % lotion APPLY SPARINGLY TO AFFECTED AREAS TWICE DAILY NEEDED 08/24/2022 documented as of this encounter Discharge Disposition Disposition Code Departure Means Destination Home or Self Care documented in this encounter Plan of Treatment Upcoming Encounters Date Type Department Care Team (Late st Contact Info) Description 03/07/2025 3:30 PM EDT Appointment [facility] CT Scan [address] [place] [phone] 04/09/2025 2:30 PM EDT [facility] [address] [phone] Jose Benjamin MD [address] [address] 05/09/2025 3:00 PM EDT Office Visit Orthopedics [address] [address] Amadeo Sofia PA [address] [place] [address] 11/14/2025 3:00 PM EDT Office Visit Nephrology [facility] [address] [place] [address] Eduard Mccormick MD [address] [place] [address] documented as of this encounter Procedures Procedure Name Priority Date/Time Associated Diagnosis Comments MR LUMBAR SPINE WO CONTRAST Routine 02/22/2025 8:07 PM EDT Radiculopathy, lumbar region Spinal stenosis documented in this encounter Results * MR Lumbar Spine wo Contrast (02/22/2025 8:07 PM EDT) Anatomical Region Laterality Modality L-spine, Spine Magnetic Resonan ce 02/23/2025 3:48 AM EDT Impressions 02/23/2025 3:53 AM EDT 1. Multilevel lumbar spondylosis, as above, most prominent at L3-L4 and L4-L5. 2. Findings at L3-L4 are overall similar to prior. 3. Moderate bilateral neural foraminal narrowing at L4-L5 which has progressed from prior study. -------- FINAL REPORT -------- Dictated By: Edilia Brower Dictated Date: 02/23/2025 03:48 ET Assigned Physician: Edilia Brower Reviewed and Electronically Signed By: Edilia Brower Signed Date: 02/23/2025 03:53 ET Workstation ID: [id number] Transcribed By: Self Edit Transcribed Date: 02/23/2025 03:48 ET Narrative 02/23/2025 3:53 AM EDT INDICATION: RADICULOPATHY, SPINAL STENOSIS COMPARISON: 01/2022 TECHNIQUE: Multiplanar, multisequence MRI was performed of the lumbar spine without IV contrast. FINDINGS: Study assumes 5 lumbar type vertebral bodies. Vertebral body heights are maintained. There is mild straightening of the lumbar lordosis. There is minimal grade 1 retrolisthesis of L5 on S1, similar to prior. Conus terminates at T12. Bone marrow and cord signal is unremarkable. Multilevel disc desiccation, most significant at L3-L4, L4-L5 and L5-S1. Specific findings are seen at the following levels: T12-L1:No significant spinal canal stenosis or neural foraminal narrowing seen on sagittal view L1-L2:No significant spinal canal stenosis or neural foraminal narrowing seen on sagittal view L2-L3:No significant spinal canal stenosis or neural foraminal narrowing. Bilateral facet arthropathy. L3-L4:Disc bulge with superimposed posterior osteophyte formation as well as mild ligamentum flavum infolding and facet arthropathy and results in mild spinal canal stenosis; overall similar to prior with mild bilateral neural foraminal narrowing. L4-L5:Posterior disc osteophyte complex with ligamentum flavum infolding and facet arthropathy which effaces the ventral thecal sac without significant spinal canal stenosis and results in moderate bilateral neural foraminal narrowing; progressed from prior. L5-S1:Posterior osteophyte complex with bilateral facet arthropathy without significant spinal canal stenosis and moderate bilateral neural foraminal narrowing; overall similar to prior. Miscellaneous: T2 hyperintense lesion in the right kidney likely representing a cyst. Procedure Note Edilia Brower MD - 02/23/2025 INDICATION: RADICULOPATHY, SPINAL STENOSIS COMPARISON: 01/2022 TECHNIQUE: Multiplanar, multisequence MRI was performed of the lumbarspine without IV contrast. FINDINGS: Study assumes 5 lumbar type vertebral bodies. Vertebral body heights aremaintained. There is mild straightening of the lumbar lordosis. There isminimal grade 1 retrolisthesis of L5 on S1, similar to prior. Conusterminates at T12. Bone marrow and cord signal is unremarkable.Multilevel disc desiccation, most significant at L3- L4, L4-L5 and L5-S1.Specific findings are seen at the following levels: T12-L1:No significant spinal canal stenosis or neural foraminal narrowingseen on sagittal view L1-L2:No significant spinal canal stenosis or neural foraminal narrowingseen on sagittal view L2-L3:No significant spinal canal stenosis or neural foraminal narrowing.Bilateral facet arthropathy. L3-L4:Disc bulge with superimposed posterior osteophyte formation as wellas mild ligamentum flavum infolding and facet arthropathy and results inmild spinal canal stenosis; overall similar to prior with mild bilateralneural foraminal narrowing. L4-L5:Posterior disc osteophyte complex with ligamentum flavum infoldingand facet arthropathy which effaces the ventral thecal sac withoutsignificant spinal canal stenosis and results in moderate bilateral neuralforaminal narrowing; progressed from prior. L5-S1:Posterior osteophyte complex with bilateral facet arthropathywithout significant spinal canal stenosis and moderate bilateral neuralforaminal narrowing; overall similar to prior. Miscellaneous: T2 hyperintense lesion in the right kidney likelyrepresenting a cyst. IMPRESSION: 1. Multilevel lumbar spondylosis, as above, most prominent at L3-L4 andL4-L5. 2. Findings at L3-L4 are overall similar to prior. 3. Moderate bilateral neural foraminal narrowing at L4-L5 which hasprogressed from prior study. -------- FINAL REPORT -------- Dictated By: Edilia Brower Dictated Date: 02/23/2025 03:48 ET Assigned Physician: Edilia Brower Reviewed and Electronically Signed By: Edilia Brower Signed Date: 02/23/2025 03:53 ET Workstation ID: [id number] Transcribed By: Self Edit Transcribed Date: 02/23/2025 03:48 ET Vladislav Antunez DO IMG MRI PROCEDURES Final Result documented in this encounter Visit Diagnoses Diagnosis Radiculopathy, lumbar region Thoracic or lumbosacral neuritis or radiculitis, unspecified Spinal stenosis Spinal stenosis, unspecified region other than cervical documented in this encounter Care Teams Senior Software Project Manager Relationship Specialty Start Date End Date Shelbie Upton MD [address] [place] [id number] PCP - General Internal Medicine 10/31/24 documented as of this encounter
[2025-02-27 14:34] VITALS: BP 110/66; PULSE 64; BMI 25.4
--- NOTE | 2025-02-27 14:34 | MHC.OFFVIS ---
Vital Signs 02/27/25 14:34 Height 5 ft 4 in Weight 147 lb 11.355 oz BMI 25.4 BP 110/66 Blood Pressure Location Lt brachial Position Sitting Pulse 64 Intake Visit Reasons: 4m follow up Intake Note: 4 month follow-up feeling good Camp Tender Required: No Allergies No Known Allergies Allergy (Verified 11/23/24 15:58) Medication List - Last Reconciled 02/27/25 by Gino Pinto MD albuterol sulfate 90 mcg/actuation 2 puffs inhalation Q4H PRN aspirin 81 mg PO DAILY atorvastatin 40 mg PO DAILY betamethasone, augmented 0.05 % appl topical diclofenac sodium 1% 1 g topical BID 90 days efinaconazole 10% (Jublia) 1 appl topical DAILY ezetimibe 10 mg PO DAILY famotidine 20 mg PO BID gabapentin 300 mg PO BID ketoconazole 2% appl topical BID lidocaine-prilocaine 2.5-2.5 % 1 g topical BID linaclotide (Linzess) 145 mcg PO QAM losartan 25 mg PO DAILY magnesium hydroxide 600 mg PO .twice weekly metoprolol succinate ER (Toprol XL) 25 mg PO DAILY mirabegron ER (Myrbetriq) 50 mg PO DAILY montelukast 10 mg PO QPM rabeprazole 20 mg PO QAM sucralfate 10 mL PO QIDACHS ticagrelor 90 mg PO BID HPI Comments Details: Laina comes for follow-up. Just finishes phase 2 cardiac rehabilitation. He did well on it with exercise. However he said he gets intermittent episodes of chest discomfort similar to his angina when he is laying down at nighttime and thinking a lot in his under stress or when he is driving. The symptoms are concerning. He has no palpitations. No lightheadedness, syncope. Takes all his medications. He also complains of exertional shortness of breath and has been treated by Pulmonary for some underlying chronic pulmonary issues. Denies any palpitation, lightheadedness, syncope. No orthopnea, PND, leg edema. No recent lipid panel [facility] Medical History (Updated 11/26/24 @ 15:40 by Shelbie Upton MD) Acute gouty arthritis Perianal dermatitis SOB (shortness of breath) on exertion Finger laceration with complication Encounter to establish care Trigger finger Thyroid nodule Surgical History (Updated 02/27/25 @ 15:02 by Gino Pinto MD) Stented coronary artery S/P cardiac cath H/O colonoscopy History of esophagogastroduodenoscopy (EGD) Hx of cataract extraction History of thyroid surgery History of prostate surgery Family History Sister Arthritis Mother Heart disease Lung cancer Father Hypertension Sister Thyroid cancer Social History Household Members: Spouse Housing: Apartment Are you a primary pet caregiver to a significant other at home: No Do you presently have visiting nurse or other home services: No Alcohol intake: never Patient Tobacco Use Status: Never used Tobacco e-Cigarette/Vaping Use: Never Used Second Hand Smoke Exposure: No service: No Current occupational status: employed 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 Current occupational exposures/hazards: No Cognitive needs: No Hearing needs: No Vision needs: No Review of Systems Const Denies chills, Denies fatigue, Denies fever(s), Denies frequent falls, Denies weakness, Denies weight gain and Denies weight loss ENT Denies dizziness Card Denies chest pain, Denies leg edema, Denies lightheadedness, Denies palpitations, Denies dyspnea, Denies dyspnea on exertion, Denies orthopnea and Denies other (loss of consciousness) Resp Denies cough, Denies dyspnea and Denies dyspnea on exertion GI Denies hematochezia and Denies change in stool character Musc Denies abnormal gait, Denies muscle weakness, Denies numbness, Denies radiating pain into limb and Denies tingling Neuro Denies abnormal gait, Denies dizziness, Denies frequent falls, Denies numbness, Denies tingling and Denies weakness Endo Denies fatigue and Denies palpitations Physical Exam Vital Signs: Last Vital Signs Pulse 64 02/27/25 14:34 BP 110/66 02/27/25 14:34 BMI result Body Mass Index 25.4 Const General: cooperative, comfortable, no acute distress, alert, awake and Physically active Nutritional Appearance: average body habitus Orientation/consciousness: patient oriented x3 Limitations: no limitations HEENT Head: Yes normocephalic and Yes atraumatic Neck Neck: Yes trachea midline, Yes supple and Yes no JVD Carotids: no bruits Resp Effort & Inspection: normal respiratory effort Auscultation: clear to auscultation bilaterally and diminished lung sounds Cardio Jugular venous distension: no JVD Palpation: normal PMI Rate: regular rate Rhythm: regular rhythm Heart sounds: S1 normal heart sound present, S2 normal heart sound present, no click, no gallops, no murmurs and no rubs GI Auscultation: normal bowel sounds Skin General skin exam: no rashes or lesions noted Neuro General: patient oriented x3 and no focal motor deficits Extrem General: Yes no clubbing, cyanosis or edema Assessment & Plan Assessment & Plan (1) CAD (coronary artery disease): Code(s): I25.10 - Atherosclerotic heart disease of [place] coronary artery without angina pectoris Category: Medical Qualifiers: Coronary Disease-Associated Artery/Lesion type: [place] artery [place] vs. transplanted heart: [place] heart Associated angina: without angina Qualified Code(s): I25.10 - Atherosclerotic heart disease of [place] coronary artery without angina pectoris Plan: Coronary artery disease with stenting to RCA 2 years ago for inferior STEMI and now in September this year with exertional angina. He continues to have intermittent episodes of lower precordial chest pain, appears to be under stressful situation. He does not get symptoms much with exercise. However concern would be still coronary vaso spasm or myocardial ischemia with stressful situation. Would suggest exercise myocardial perfusion imaging to evaluate for any significant perfusion defect that may need repeat cardiac catheterization. Meanwhile I have prescribe him sublingual nitroglycerin for symptom relief he needs to if his symptoms last for longer time and seek emergency care for unrelenting chest pain. Meanwhile he is advised to continue dual antiplatelet therapy uninterrupted for now. Also continue high-intensity statin therapy as well as ezetimibe therapy and follow-up lipid panel in near future. Continue all other medications as before. Stress mitigation strategies to be pursued. Encouraged to maintain activity level as tolerated. Will follow up in the clinic in 3 months time, sooner p.r.n.. Thank you for allowing me to partake in his care Orders: Orders Lipid Panel Today I25.10 - Atherosclerotic heart disease of [place] coronary artery without angina pectoris CA stress test Today I25.10 - Atherosclerotic heart disease of [place] coronary artery without angina pectoris NM cardiolite stress test 2 Weeks I25.10 - Atherosclerotic heart disease of [place] coronary artery without angina pectoris, R07.9 - Chest pain, unspecified Medications: New nitroglycerin do not exceed 3 doses per episode 0.4 mg sublingual Q5M PRN 20 tabs 1RF chest pain I25.10 - Atherosclerotic heart disease of [place] coronary artery without angina pectoris Coding Level of Care Code Est Pt Level 4 (74121) Complex EM visit Add On G2211 Diagnoses Coronary artery disease involving [place] coronary artery of [place] heart without angina pectoris I25.10 Coronary Disease-Associated Artery/Lesion type: [place] artery [place] vs. transplanted heart: [place] heart Associated angina: without angina
--- OUTSIDE RECORDS SUMMARY | 2025-02-27 15:53 | XMS_ITS | Clinical Summary ---
Author Organization [facility] Address [address] [place] [address] Phone Care Team Providers Care Inserting Operator Name Role Phone Vitor Mclean MD Primary Care Provider [phone] Allergies No known active allergies Medications diclofenac sodium (VOLTAREN) 1 % Gel Apply topically 4 (four) times a day. Active albuterol 90 mcg/actuation inhaler Inhale 2 puffs into the lungs every 6 (six) hours as needed for wheezing. Active triamcinolone acetonide 0.1 % ointment Apply topically 2 (two) times a day. Active lidocaine 5 % ointment Apply topically as needed. Active gabapentin (NEURONTIN) 300 MG capsule Take 300 mg by mouth 2 (two) times a day. Active naproxen (NAPROSYN) 500 MG tablet Take 500 mg by mouth 2 (two) times a day with meals. Active losartan (COZAAR) 25 MG tablet Take 25 mg by mouth daily. Active finasteride (PROSCAR) 5 mg tablet Take 5 mg by mouth daily. Active tamsulosin (FLOMAX) 0.4 mg Cap Take 0.8 mg by mouth daily. Active multivitamins capsule Take 1 capsule by mouth daily. Active Social History Tobacco Use Types Packs/Day Years Used Date Smoking Tobacco: Never Smokeless Tobacco: Never Education Answer Date Recorded Are you interested in more education? Not on lorraine e 11/06/2022 Are you concerned about learning? Not on file 11/06/2022 No 11/06/2022 No 11/06/2022 Digital Access Answer Date Recorded No 12/05/2022 No 12/05/2022 Reliable internet access at home? Not on file 12/05/2022 Device with a working camera? Not on file Sex and Gender Information Value Date Recorded Sex Assigned at Not on file Legal Sex Male 2:02 PM EDT Gender Identity Not on file Sexual Orientation Not on file Last Filed Vital Signs Vital Sign Reading Time Taken Comments Blood Pressure 144/88 12/15/2019 1:30 PM EDT Pulse 51 12/15/2019 1:30 PM EDT Temperature 36.6 C (97.9 F) 12/15/2019 12:30 PM EDT Respiratory Rate 18 12/15/2019 1:30 PM EDT Oxygen Saturation 97% 12/15/2019 1:30 PM EDT Inhaled Oxygen Concentration - - Weight 61.7 kg (136 lb) 12/15/2019 8:50 AM EDT Height 167.6 cm (5' 6 ) 12/15/2019 8:50 AM EDT Body Mass Index 21.95 12/15/2019 8:50 AM EDT Plan of Treatment Health Maintenance Due Date Last Done Comments LIPID PANEL 1953 POTASSIUM LEVEL 1953 DEPRESSION SCREENING 1965 HEPATITIS C SCREENING 11/18/1971 COLOGUARD 1998 COLONOSCOPY 1998 COLORECTAL CANCER SCREENING 1998 FIT TEST 1998 FOBT 1998 SIGMOIDOSCOPY 1998 VIRTUAL COLONOSCOPY 1998 CREATININE LEVEL 12/11/2020 12/12/2019 COVID-19 VACCINE (2 - 2023-2 5 season) 2024 09/30/2020 RSV VACCINE (1 - 1-dose 75+ series) 2028 Adult Td,Tdap Booster 04/26/2030 04/26/2020 , 08/31/2012 ZOSTER VACCINES Completed 01/24/2020, 09/06/2019, 09/16/2015 PNEUMOCOCCAL VACCINES (50+ years) Completed 04/09/2020, 04/28/2019 SMOKING STATUS SCREENING (On ce After 26 Yrs) Completed 02/15/2024 HEPATITIS A VACCINES Aged Out No long er eligible based on patient's age to complete this topic HIB VACCINES Aged Out No longer eligi ble based on patient's age to complete this topic MENINGOCOCCAL VACCINES (ACWY) Aged Out No longer eligible based on patient's age to complete this topic MENINGOCOCCAL VACCINES (B) Aged Out N o longer eligible based on patient's age to complete this topic Medical Devices Implanted Type Area Business Services Intern Device Identifier Shelf Expiration Date Model / Serial / Lot Composite Augment 1.0 Cc Injectable Radiesse Vocal Cord Prolaryn Gel Nonpyrogenic - [id number] Implanted:Qty: 1 on 12/15/2019 by Vipin Cherry MD at [facility] Left: Vocal Cord [employer] 06/29/2021 [id number] / [id number] / [id number] Insurance MEDICARE REPLACEMENT Member Subscriber Plan / Payer (Ef fective 2022-Present) Name:Laina Lewis Relation to Subscriber:Self Name:Laina Lewis Payer ID:[id number] (NAIC) Group ID:Not on file Type:Medicare Address: [place] [id number] MEDICARE REPLACEMENT MEDICARE REPLACEMENT MEDICARE REPLACEMENT MEDICARE REPLACEMENT MEDICARE REPLACEMENT Care Teams Inserting Operator Relationship Specialty Start Date End Date Vitor Mclean MD [address] [place] [phone] PCP - General Pulmonary Disease 12/14/19 Additional Source Comments The information contained in this document represents components of the legal health record. It is not the complete legal health record.[facility]
--- OUTSIDE RECORDS SUMMARY | 2025-02-27 15:53 | XMS_ITS | Patient Health Record ---
Author Organization [facility] Address [address] [facility] [address] [place] [address] Care Team Providers Care Animal Trapper Name Role Phone Wayne Jaimes MD Primary Care Provider JORGE L Burks Unavailable [phone] Allergies No Known Allergies Reason For Referral No Information Medications Medication SIG (Take, Route, Frequency, Duration) Notes Start Date End Date Status Meclizine HCl 12.5 MG 2 tablets as neede d Orally 3 times daily Not-Taking Lidocaine-Prilocaine 2.5-2.5 % APPLY 1 GRAM OF CREAM TOPICALLY Externally twice daily; Duration: 30 days Active Ketoconazole 2 % 1 application Externally Once a day Active Gabapentin 300 MG 1 capsule Orally bid Not-Taking hydrOXYzine HCl 50 MG 1 tablet as needed Orally once a day; Duration: 30 day(s) 01/20/2021 Not-Taking Jublia 10 % APPLY TOPICALLY ONCE DAILY; Duration: 38 Not-Taking Brilinta 90 MG 1 tablet Orally Twic e a day Active Ciclopirox 8 % 1 application Externally Once a day Not-Taking Pantoprazole Sodium 20 MG 1 tablet Orall y Once a day Not-Taking predniSONE 20 MG 1 tablet Orally Once a day Not-Taking Efinaconazole 10 % 1 application to the right big toe, left 4th and 5th toes, and right 4th and 5th toes. 2 applications to the right big toe, 1 application a day for the smaller toes. Externally Once a day; Duration: 90 days Active Metoprolol Tartrate 25 MG 1 tablet with food Orally Twice a day Active Albuterol Sulfate 108 (90 Base) MCG/ACT 1 puff as needed Inhalation every 4 hrs Active Tamsulosin HCl 0.4 MG 1 capsule Orally O nce a day Not-Taking Tacrolimus 0.1 % 1 application to the right foot rash Externally Once a day; Duration: 30 days Active Griseofulvin Ultramicrosize 250 MG 1 tablet after a meal Orally once a day; Duration: 45 days Not-Taking Lactulose 10 GM 1 packet Orally bid Not-Taking Ezetimibe 10 MG 1 tablet Orally Once a day Active Vitamin E 400 UNIT 1 capsule Orally Onc e a day Not-Taking Gentamicin Sulfate 0.1 % 1 application Externally Once a day; Duration: 30 days apply to the right big toe and left 5th toe 01/10/2025 Active traMADol HCl 50 MG 1 tablet as needed Orally Once a day Active Diclofenac Epolamine 1.3 % 1 patch as needed Externally Once a day; Duration: 30 days Not-Taking Sucralfate 1 GM/10ML 10 mL 1 hour before meals and at bedtime on an empty stomach Orally Four times a day Active Griseofulvin Ultramicrosize 250 MG 1 tablet after a meal Orally once a day; Duration: 90 days 01/13/2022 Not-Taking Diclofenac Sodium 1 % as directed to the right foot Externally twice daily as needed for pain; Duration: 30 days Active Voltaren Active Finasteride 5 MG 1 tablet Orally Once a day Not-Taking Triamcinolone Acetonide 0.025 % 1 application Externally Once a day; Duration: 14 days for the rash on the back of the right ankle and heel 01/10/2025 Active Esomeprazole Magnesium 40 MG 1 capsule Orally Once a day Active Vitamin D Not-Taking Aspirin 81 MG 1 tablet Orally Once a day Active Multivitamin Not-Oseas ing Lidocaine 5 % 1 patch remove after 12 hours Externally Once a day Active Triamcinolone (oint)-Silicone Active Mupirocin 2 % 1 application Externally Twice a day; Duration: 30 days 01/13/2022 Not-Taking Atorvastatin Calcium 80 MG 1 tablet Orally Once a day Active Itraconazole 100 MG 1 capsule after a me al Orally Once a day; Duration: 30 days 04/15/2022 Not-Taking Losartan Potassium 25 MG 1 tablet Orally 0.5 tab Once a day Active Problems Problem Type SNOMED Code ICD Code Onset Dates Problem Status W/U Status Risk Notes Problem Localized, primary osteoarthritis of the ankle and/or foot (117906683) Primary osteoarthritis, right ankle and foot (M19.071) Active confirmed Problem Localized, primary osteoarthritis of the ankle and/or foot (220896928) Primary osteoarthritis, left 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) Active confirmed Problem Plantarflexion deformity of right foot (finding) (0875171780371853) Equinus contracture of right ankle (M24.571) Active confirmed Problem Psoriasis (1776603) Psoriasis (L40.9) Active confirmed Problem Lumbar radiculopathy (251201417) Lumbar radiculopathy, right (M54.16) Active confirmed Problem Chondrocalcinosis (957259976) Calcium pyrophosphate deposition disease (CPPD) (M11.20) Active confirmed Vital Signs Heart Rate 66 /min 01/10/2025 Temperature 97.6 degrees Fahrenheit 01/10/2025 Respiratory Rate 16 /min 01/10/2025 Height 5ft 6in in 01/10/2025 Weight 149.9 lbs 01/10/2025 BMI 24.19 kg/m2 01/10/2025 Procedures Procedure Date Ordered Date Performed Result Body Sit e DRAIN/INJECT, SMALL JOINT/BURSA 04/10/2024 N/A DRAIN/INJECT, SMALL JOINT/BURSA 07/10/2024 N/A DRAIN/INJECT, SMALL JOINT/BURSA 01/10/2025 N/A Encounters Encounter Location Date Provider Diagnosis [facility] [address] 04/10/2024 JORGE L REDDY Onychomycosis B35.1 ; Calcium pyrophosphate deposition disease (CPPD) M11.20 ; Psoriasis L40.9 ; Hallux limitus of left foot M20.5X2 ; Hallux limitus of right foot M20.5X1 ; Lumbar radiculopathy, right M54.16 ; Achilles tendinitis, right leg M76.61 and Achilles tendinitis, left leg M76.62 [facility] [address] 07/10/2024 JORGE L REDDY Onychomycosis B35.1 ; Calcium pyrophosphate deposition disease (CPPD) M11.20 ; Psoriasis L40.9 ; Hallux limitus of left foot M20.5X2 ; Hallux limitus of right foot M20.5X1 ; Lumbar radiculopathy, right M54.16 ; Achilles tendinitis, right leg M76.61 and Achilles tendinitis, left leg M76.62 [facility] [address] 10/11/2024 JORGE L REDDY Onychomycosis B35.1 ; Calcium pyrophosphate deposition disease (CPPD) M11.20 ; Psoriasis L40.9 ; Hallux limitus of left foot M20.5X2 ; Hallux limitus of right foot M20.5X1 ; Lumbar radiculopathy, right M54.16 ; Achilles tendinitis, right leg M76.61 and Achilles tendinitis, left leg M76.62 [facility] [address] 01/10/2025 JORGE L REDDY Onychomycosis B35.1 ; Calcium pyrophosphate deposition disease (CPPD) M11.20 ; Infection, Pseudomonas A49.8 ; Psoriasis L40.9 ; Hallux limitus of right foot M20.5X1 ; Hallux limitus of left foot M20.5X2 ; Lumbar radiculopathy, right M54.16 ; Pain in left foot M79.672 and Pain in right foot M79.671 [facility] [address] 01/10/2025 JORGE L REDDY [facility] [address] 01/15/2025 JORGE L REDDY Onychomycosis B35.1 [facility] [address] 01/24/2025 JORGE L REDDY Onychomycosis B35.1 [facility] [address] 01/24/2025 JORGE L REDDY [facility] [address] 02/01/2025 JORGE L REDDY [facility] [address] 02/22/2025 JORGE L REDDY Assessments Encounter Date Diagnosis (ICD Code) Assessment [...] to return when ready for the procedure. 01/10/2025 Onychomycosis (ICD-10 - B35.1) I reviewed with [...] to apply to each affected toenail daily. He is to continue to use this daily. 01/15/2025 Onychomycosis (ICD-10 - B35.1) 01/24/2025 Onychomycosis (ICD-10 - B35.1) 01/10/2025 Calcium pyrophosphate deposition disease (CPPD) (ICD-10 - [...] inserts to help offload the offending joints. 01/10/2025 Infection, Pseudomonas (ICD-10 - A49.8) He has a secondary pseudomonas infection of the right hallux and left 5th toenail. I am sending a topical antibiotic I want him to apply to the toenail once daily x 1 month. I explained that bacteria is different from a fungus and the Jublia will not treat this issue. I want him to continue to use the Jublia with this medication. 10/11/2024 Calcium pyrophosphate deposition disease (CPPD) (ICD-10 [...] currently being followed at the [facility] for CPPD. His notes were not available [...] he does not need another refill today. 01/10/2025 Psoriasis (ICD-10 - L40.9) We discussed that CPPD and psoriasis can go hand in hand. We discussed that he has tried many topical steroids without improvement or resolution. He had resolution with the tacrolimus, he does not need another refill today. 01/10/2025 Hallux limitus of right foot (ICD-10 - M20.5X1) RX for diclofenac gel to apply to the right foot BID PRN pain. Consent was reviewed and signed by the patient for a steroid injection into the right 1st metatarsophalangeal joint. Pt agreed. 3cc total steroid injection was given into the right foot. Pt tolerated well. Post-Injection instructions were given to the patient. Pt instructed to ice/elevate the foot tonight. 07/10/2024 Hallux limitus of left foot (ICD-10 [...] to the right foot BID PRN pain. 01/10/2025 Hallux limitus of left foot (ICD-10 - M20.5X2) I examined his orthotics which are still appropriate. We discussed his balance issues is not coming from his feet as the tread and wear on his shoes are equal. 01/10/2025 Lumbar radiculopathy, right (ICD-10 - M54.16) We [...] the right 4th and 5th toes. 10/11/2024 Lumbar radiculopathy, right (ICD-10 - M54.16) [...] bilateral night splints dispensed to the patient. 01/10/2025 Pain in left foot (ICD-10 - M79.672) 07/10/2024 Achilles tendinitis, left leg (ICD-10 - M76.62) 10/11/2024 Achilles tendinitis, left leg (ICD-10 - M76.62) 01/10/2025 Pain in right foot (ICD-10 - M79.671) 01/10/2025 Other Plan Of Treatment Pending Test Test Name [...] 04/10/20 24 DRAIN/INJECT, SMALL JOINT/BURSA 07/10/20 24 DRAIN/INJECT, SMALL JOINT/BURSA 01/11/20 25 Next Appt Details Provider Name:JORGE L REDDY, 04/30/2025 02:45:00 PM, [address], [address], Insurance Providers Payer Name Payer Address Payer Phone Subscriber Number Group Number Insured Name Patient Relationship to Insured Coverage Start Date Coverage End Date [employer] care medicare community plan [address] [address] [place] [address] [id number] [facility] - patient is the [...] 0.5 m L dexAMETHasone Sod Phosphate PF 01/10/2025 0.5 m L Kenalog 08/15/2020 0.5 mL Kenalog 02/17/2021 0.5 mL Kenalog 01/13/2022 0.5 mL Kenalog 06/15/2023 0.5 mL Kenalog 09/20/2023 0.5 mL Kenalog 12/24/2023 0.5 mL Kenalog 04/10/2024 0.5 mL Kenalog 07/10/2024 0.5 mL Kenalog 01/10/2025 0.5 mL Medical (General) History Medical History [...]
--- OUTSIDE RECORDS SUMMARY | 2025-02-27 15:53 | XMS_ITS | Clinical Summary ---
Author Organization [facility] Address [address] [place] [address] Care Team Providers Care Vamp Throater Name Role Phone Brett Velásquez MD Primary Care Provider [phone] Allergies No known active allergies Medications Medication [...] 63 12/17/2021 8:33 AM EDT Temperature 36.2 C (97.1 F) 12/17/2021 8:33 AM EDT Respiratory Rate - - Oxygen Saturation 98% [...] 2024 04/23/2021, 10/22/2020, 09/30/2020 Influenza Vaccine (#1) 2025 , 04/09/2020, 05/06/2019, Additional history exists RSV [...] age to complete this topic Care Teams Vamp Throater Relationship Specialty Start Date End Date Brett Velásquez MD PCP - General Internal Medicine 10/20/17
--- OUTSIDE RECORDS SUMMARY | 2025-02-27 15:53 | XMS_ITS | Clinical Summary ---
Author Organization [facility] Address [address] [facility] [address] [place] [address] Phone Care Team Providers Care Auto Striper Name Role Phone Shelbie Upton MD Primary Care Provider [phone] Allergies No known active allergies Medications albuterol [...] Cancer Screening: Sigmoidoscopy 2002 Influenza Vaccine (#1) 2025 3, 04/08/2021, 04/09/2020, Additional history exists Pneumococcal Vaccine: 50+ Years Completed 04/09/2020, 04/28/2019 Pneumococcal Vaccine: Peds (0 to 5 Years) and At-Risk Patients (6 to 49 Years) Discontinued 04/09/2020, 04/28/2019 Hepatitis B Vaccine Aged Out No longe r eligible based on patient's age to complete this topic Insurance ANDREI KHAN [id number] Medicaid [place] [facility] ([id number]) Andrew Diaz ([id number]) Medicaid [place] Care Teams Auto Striper Relationship Specialty Start Date End Date Shelbie Upton MD [address] [place] [address], [address] [place] [address] PCP - General Internal Medicine 02/04/24
--- OUTSIDE RECORDS SUMMARY | 2025-02-27 15:53 | XMS_ITS ---
Author Name [facility] Organization Unknown Encounters Encounter Type Encounter Reason Primary Diagnosis Location Date Ambulatory [facility] 04/21/2024 Care Team Organization Name Specialty Phone Email Start Date End Da te [facility] 2024
--- OUTSIDE RECORDS SUMMARY | 2025-02-27 15:53 | XMS_ITS | Clinical Summary ---
Author Organization [employer] [facility] [employer] [facility] Address [address] [place] [address] 7 [place] [address] Care Team Providers Care Wreath And Garland Maker Hand Name Role Phone Unavailable Primary Care [...] 2023-2 5 season) 2024 Influenza Vaccine (#1) 2025 RSV Patients and Pa tients Aged 60 [...]
== END 2025-02-27 15:15 | disposition home or self-care (01) ==
LOC: HO.HCS 14:33
PROVIDERS: PCP Internal Medicine; Visit Provider Internal Medicine Cardiovascular Disease
DX: I25.10 Atherosclerotic heart disease of native coronary artery without angina pectoris (principal)
CPT/HCPCS: 99214; G2211

== ENCOUNTER → 2025-02-27 14:31 | Outpatient (BNVA) | payer OTHER, SELFPAY | PROVIDERS: PCP Internal Medicine; Visit Provider Internal Medicine Cardiovascular Disease | DX: I25.10 Atherosclerotic heart disease of native coronary artery without angina pectoris (principal) | CPT/HCPCS: 99212 ==

== ENCOUNTER 2025-03-14 14:41 | Outpatient (REF) | payer OTHER, SELFPAY ==
[2025-03-14 16:41] LABS: Prostate Specific Antigen 1.05 ng/mL (<0.05-4.0)
--- OUTSIDE RECORDS SUMMARY | 2025-03-14 17:00 | XMS_ITS | Clinical Summary ---
Author Organization [facility] Address [address] [facility] [address] [place] [id number] Phone Care Team Providers Care Service Center Specialist Name Role Phone Vitor Mclean MD Primary Care Provider [phone] Allergies No known active allergies Medications diclofenac [...] VIRTUAL COLONOSCOPY 1998 CREATININE LEVEL 12/11/2020 12/12/2019 INFLUENZA VACCINE (#1) 2025 , 05/06/2019, 06/23/2018, Additional history exists COVID-19 VACCINE (2 - 2024- season) 2025 09/30/2020 RSV VACCINE (1 - 1-dose 75+ series) 2028 Adult Td,Tdap Booster 04/26/2030 04/26/2020, 013 ZOSTER VACCINES Completed 01/24/2020, 08/13, 09/16/2015 PNEUMOCOCCAL VACCINES (50+ years) Completed 04/09/2020, 04/28/2019 SMOKING STATUS SCREENING (Once After 26 Yrs) Completed 02/15/2024 HEPATITIS A [...] this topic Medical Devices Implanted Type Area Prize Jacker Device Identifier Shelf Expiration Date Model / Serial / Lot Composite Augment 1.0 Cc Injectable Radiesse Vocal Cord Prolaryn Gel Nonpyrogenic - [id number] Implanted:Qty: 1 on 12/15/2019 by Vipin Cherry MD at [facility] Left: Vocal Cord [employer] 06/29/2021 [id number] / [id number] / [id number] Insurance MEDICARE REPLACEMENT MEDICARE REPLACEMENT MEDICARE REPLACEMENT MEDICARE REPLACEMENT MEDICARE REPLACEMENT MEDICARE REPLACEMENT Care Teams Service Center Specialist Relationship Specialty Start Date End Date Vitor Mclean MD [address] [place] [id number] PCP - General Pulmonary Disease 12/14/19 Additional Source Comments The information contained in this document represents components of the legal health record. It is not the complete legal health record.[facility]
--- OUTSIDE RECORDS SUMMARY | 2025-03-14 17:00 | XMS_ITS | Encounter Summary ---
Author Organization [facility] Address [address] [facility] [address] [place] [address] Phone Care Team Providers Care Chief Gauger Name Role Phone Vitor Mclean MD Primary Care Provider [phone] Encounter Details Date Type Department Care Team (Latest Contact Info) Description 01/31/2024 Transcribe Orders Virtual Department [address] [place] [address] Kevin Oliva PA [address] [facility] [address] [place] [address] Gastroesophageal reflux disease, unspecified whether esophagitis present (Primary Dx) Social History Tobacco Use Types [...] on file Sexual Orientation Not on file documented as of this encounter Plan of Treatment Not on file documented as of this encounter Results * FL BARIUM SWALLOW ESOPHAGRAM DOUBLE CONTRAST (02/15/2024 11:11 AM EDT) Anatomical Region Laterality Modality Chest Radio Fluoroscop y 02/15/2024 12:4 8 PM EDT Impressions 02/15/2024 1:33 PM EDT Mild esophageal dysmotility without gastroesophageal reflux demonstrated during this examination. No melissa aspiration observed as previously seen in prior study 10/23/2022. Otherwise, no significant changes relative to prior study. FLUOROSCOPY TIME: 1 minute 20 seconds NUMBER OF IMAGES: [id number] ATTESTATION: I, Brionna Menendez as teaching physician, have reviewed the images for this case and if necessary edited the report originally created by Paul Crowley. Narrative 02/15/2024 1:33 PM EDT FL BARIUM SWALLOW ESOPHAGRAM DOUBLE CONTRAST HISTORY: Gastroesophageal reflux disease. Dysphagia. Status post left hemithyroidectomy. COMPARISON: Barium swallow 10/23/2022 and modified barium swallow 11/14/2021 . OPERATORS: Paul Crowley SUPERVISING PHYSICIAN: Brionna Menendez TECHNIQUE: Double contrast barium swallow examination was performed with Sodium Carbonate and Barium. FINDINGS: SWALLOW: Laryngeal penetration without melissa aspiration. ESOPHAGUS: Motility: Mild esophageal dysmotility evidenced by a slightly decreased primary peristaltic wave. Mucosa: No gross mass, ulceration or fixed stricture demonstrated fluoroscopically. Distensibility: Normal. GASTROESOPHAGEAL JUNCTION: No definite hiatal hernia. GASTROESOPHAGEAL REFLUX: None observed. TABLET: A 13 mm barium tablet passed readily into the stomach. Visualized portion of the stomach and proximal small bowel are unremarkable. Procedure Note Brionna Menendez MD - 02/15/2024 FL BARIUM SWALLOW ESOPHAGRAM DOUBLE CONTRAST HISTORY: Gastroesophageal reflux disease. Dysphagia. Status post lefthemithyroidectomy. COMPARISON: Barium swallow 10/23/2022 and modified barium swallow 11/14/2021. OPERATORS: Paul Crowley SUPERVISING PHYSICIAN: Brionna Menendez TECHNIQUE: Double contrast barium swallow examination was performed withSodium Carbonate and Barium. FINDINGS: SWALLOW: Laryngeal penetration without melissa aspiration. ESOPHAGUS: Motility: Mild esophageal dysmotility evidenced by a slightly decreasedprimary peristaltic wave. Mucosa: No gross mass, ulceration or fixed stricture demonstratedfluoroscopically. Distensibility: Normal. GASTROESOPHAGEAL JUNCTION: No definite hiatal hernia. GASTROESOPHAGEAL REFLUX: None observed. TABLET: A 13 mm barium tablet passed readily into the stomach. Visualized portion of the stomach and proximal small bowel areunremarkable. IMPRESSION: Mild esophageal dysmotility without gastroesophageal reflux demonstratedduring this examination. No melissa aspiration observed as previously seenin prior study 10/23/2022. Otherwise, no significant changes relative toprior study. FLUOROSCOPY TIME: 1 minute 20 seconds NUMBER OF IMAGES: [id number] ATTESTATION: I, Brionna Menendez as teaching physician, have reviewed theimages for this case and if necessary edited the report originally createdby Paul Crowley. Kevin Oliva PA IMG FL MISC Final Result documented in this encounter Visit Diagnoses Diagnosis Gastroesophageal reflux disease, unspecified whether esophagitis present- Primary Gastroesophageal reflux disease, unspecified whether esophagitis present documented in this encounter Care Teams Chief Gauger Relationship Specialty Start Date End Date Vitor Mclean MD [address] [place] [address] [address] [place] [address] PCP - General Pulmonary Disease 12/14/19 documented as of this encounter Additional Source Comments The information contained in this document represents components of the legal health record. It is not the complete legal health record.[facility]
--- OUTSIDE RECORDS SUMMARY | 2025-03-14 17:00 | XMS_ITS | Encounter Summary ---
Author Organization [employer] [facility] Address [address] [place] [address] 7 [place] [address] Care Team Providers Care Casting Machine Control Board Operator Name Role Phone Unavailable Primary Care Provider Unavailabl e Encounter Details Date Type Department Care Team (Latest Contact Info) Description 01/15/2021 Abstract [facility] CONVERSIONS Dental, Provider, DDS Social [...]
--- OUTSIDE RECORDS SUMMARY | 2025-03-14 17:00 | XMS_ITS | Clinical Summary ---
Author Organization [facility] Address [address] [place] [address] Care Team Providers Care Hl7 Developer Name Role Phone Brett Velásquez MD Primary Care Provider [phone] Allergies No known active allergies Medications Medication [...] Risk Assessment 2018 COVID-19 Vaccine ( season) 2025 04/23/2021, 10/22/2020, 09/30/2020 Influenza Vaccine (#1) 2025 [...] age to complete this topic Care Teams Hl7 Developer Relationship Specialty Start Date End Date Brett Velásquez MD PCP - General Internal Medicine 10/20/17
--- OUTSIDE RECORDS SUMMARY | 2025-03-14 17:00 | XMS_ITS | Clinical Summary ---
Author Organization [facility] Address [address] [place] [address] Phone Care Team Providers Care Health Therapist Name Role Phone Shelbie Upton MD Primary Care Provider [phone] Allergies No known active allergies Medications bisacodyL (Dulcolax, bisacodyl,) 5 mg EC tablet Take 2 tabs at 6pm as directed. 08/26/19 24 Active aspirin 81 mg EC tablet Take [...] DIRECTED FOR 30 DAYS 07/21/19 24 Active inhalat.spacing dev,large mask spacer Please use with inhaler 09/28/19 20 Active sucralfate (CARAFATE) 100 mg/mL suspension Take 10 mL (1 g total) by mouth 4 (four) times a day (before meals and nightly). 02/19/20 23 Active tacrolimus (PROTOPIC) 0.1 % ointment APPLY 1 APPLICATION OF OINTMENT TOPICALLY TO THE RIGHT FOOT RASH ONCE DAILY 04/16/20 23 Active ticagrelor (BRILINTA) 90 mg tablet Take 1 tablet (90 mg total) by mouth 2 (two) times a day. 04/06/20 23 Active triamcinolone (KENALOG) 0.1 % lotion APPLY SPARINGLY TO AFFECTED AREAS TWICE DAILY NEEDED 08/24/19 23 Active efinaconazole (Jublia) 10 % solution with applicator Apply topically. Active gabapentin (NEURONTIN) 300 mg capsule Take 1 capsule (300 mg total) by mouth if needed. Active lidocaine (XYLOCAINE) 5 % ointment Apply topically 1 (one) time each day. Active atorvastatin (LIPITOR) 10 mg tablet Take 1 tablet by mouth once daily 90 tablet 08/03/19 25 Active Additional Information Patient taking differently: 40 mgoral Daily, Reported on 01/30/2025 cimetidine (TAGAMET) 800 mg tablet Take 1 [...] (one) time each day. 90 each 3 11/16/19 25 026 Active diclofenac (VOLTAREN) 1 % topical gelIndications:[facility] of right [facility],Primary osteoarthritis of left knee Apply 4 g topically 4 (four) times a day if needed (pain or swelling). 100 g 5 12/08/19 25 Active betamethasone, augmented, (DIPROLENE-AF) 0.05 % cream Apply topically 1 (one) time each day. Active famotidine (PEPCID) 20 mg tablet Take 1 tablet (20 mg total) by mouth 2 (two) times a day. Active metoprolol succinate (TOPROL-XL) 25 mg 24 hr tablet Take 1 tablet (25 mg total) by mouth 1 (one) time each day. 12/09/19 25 Active nystatin (MYCOSTATIN) 100,000 unit/mL suspension Take 5 mL by mouth 2 (two) times a day. 05/10/20 24 Active pantoprazole (PROTONIX) 20 mg EC tablet Take 1 tablet (20 mg total) by mouth 1 (one) time each day at the same time. Active pregabalin (LYRICA) 25 mg capsule Take 1 capsule (25 mg total) by mouth 1 (one) time each day. 11/27/19 22 Active tamsulosin (FLOMAX) 0.4 mg 24 hr capsule Take 1 capsule (0.4 mg total) by mouth 1 (one) time each day at the same time. Active tiZANidine (ZANAFLEX) 4 mg tablet Take 1 tablet (4 mg total) by mouth. 09/19/19 25 Active traMADoL (ULTRAM) 50 mg tablet Take 1 tablet (50 mg total) by mouth every 4 (four) hours if needed. Active fluticasone furoate-vilanteroL (Breo Ellipta) 100-25 mcg/dose inhaler Inhale 1 puff by mouth 1 (one) time each day. 60 each 01/05/20 25 026 Active montelukast (SINGULAIR) 10 mg tablet Take 1 tablet (10 mg total) by mouth at bedtime. 30 each 01/05/20 25 026 Active albuterol HFA (PROAIR HFA ; PROVENTIL HFA ; VENTOLIN HFA) 90 mcg/actuation inhaler Inhale 2 puffs by mouth every 6 (six) hours if needed for wheezing. 18 g 3 01/05/20 25 Active Active Problems Problem Noted Date Diagnosed Date Calcium pyrophosphate deposition disease (CPPD) 01/03/2025 Equinus contracture of right ankle 01/03/2025 Primary osteoarthritis, left ankle and foot 12/11 Psoriasis 01/03/2025 Proteinuria 11/15/2024 Chronic hoarseness 04/21/2024 Hemoptysis 04/21/2024 History of coronary artery stent placement 03/[address] elevation myocardial infarction (S BHAVNA) 03/06/2024 Hyperlipidemia 03/06/2024 Overview (01/03/2025): Last Assessment & Plan: As discussed above, the patient has been off his statin since at least December 2023. We will update a lipid panel today and readdress this as needed; given his history of coronary artery disease, LDL goal is less than 70. Palpitations 03/06/2024 Overview (01/03/2025): Last Assessment & Plan: He reports palpitations [...] and is in agreement with this plan. Shortness of breath 03/06/2024 Overview (01/03/2025): Last Assessment & Plan: The patient reports [...] will continue to readdress this as needed. Straining with stools 08/27/2023 Chronic midline low back pain without sciatica 0 08/09/2023 Dizziness 04/30/2023 Dysphagia 04/07/2023 Overview (01/03/2025): Dysphagia, unspecified; Note: Date Diagnosed: 10/27/2021 12:05 PM (R13.10) ; Start Date : 10/27/2021 Other dysphagia; Note: Date Diagnosed: 04/07/2023 1:44 PM (R13.19) Coronary artery disease invo lving te-moak coronary artery of te[place]ak heart with angina pectoris ([facility] V24) 12/17/2022 ST elevation (STEMI) myocard ial infarction ([facility] V24, [facility] V28) 12/11/2022 Benign prostatic hyperplasia without lower urinary tract symptoms 10/06/2022 White coat syndrome with hypertension 08/14/2022 Gastroesophageal reflux dise ase with esophagitis without hemorrhage 08/14/2022 JENNIFER (obstructive sleep apnea) 08/14/2022 Ganglion cyst of flexor tendon sheath 08/05/2022 Trigger finger, left middle finger 08/05/2022 Gastric erosions 04/27/2022 Passage of loose stools 04/27/2022 Candidiasis of mouth 04/14/2021 Overview (01/03/2025): Oral thrush; Note: Date Diagnosed: 04/14/2021 11:22 AM (B37.0) Elevated random blood glucose level 11/07/2020 Hyperglycemia, unspecified 11/07/2020 Multiple renal cysts 05/08/2020 Overview (08/27/2023): Right renal cysts seen on CT scan 04/2020. Too small to characterize. Tiny right renal cyst seen on ultrasound 06/12/2021. Liver enzyme elevation 04/09/2020 Unilateral partial vocal cord paralysis 04/09/20 20 Bilateral partial vocal cord paralysis 0 History of partial thyroidectomy 04/09/2020 Overview (01/03/2025): Dr. Hernandez 2019 Benign paroxysmal positional vertigo 02/26/2020 Overview (01/03/2025): Benign paroxysmal vertigo, left ear; Note: Date Diagnosed: 02/26/2020 3:32 PM (H81.12) S/P TURP 02/22/2020 Constipation 01/26/2020 Chronic nonintractable headache 01/26/2020 Vertigo 01/26/2020 Status post thyroidectomy 08/03/2019 Thyroid nodule 06/29/2019 Overview (08/27/2023): Pathology suspeciosu for hurtle cell neoplasm History of adenomatous polyp of colon 02/14/2019 Overview (01/03/2025): two rectal polyps. Repeat 5 years. Allergic rhinitis due to pollen 09/20/2018 BPH associated with nocturia 11/16/2017 Overview (08/27/2023): Seeing Dr. Bell yearly Nocturia associated with benign prostatic hyperp lasia 11/16/2017 Overview (01/03/2025): Seeing Dr. Bell yearly Herpes zoster without complication 10/15/2017 Lumbar disc herniation with radiculopathy 2016 Osteoarthritis 12/10/2016 Overview (08/27/2023): Thoracic, & Lumbosacral Spine, Knees, Big Toe Cough 09/04/2015 Overview (01/03/2025): Cough, unspecified; Note: Changed from R05 to R05.9 (10/27/2021 2:10 PM) , Date Diagnosed: 09/04/2015 3:10 PM (R05) Esophageal reflux 11/28/2014 Mild tricuspid regurgitation 10/18/2014 Proteinuria 09/27/2014 Overview (08/27/2023): Sees Dr. Mccormick Hematuria, microscopic 07/13/2013 Overview (08/27/2023): negative urological workup. Dr. Bell Chronic gout without tophus 12/17/2011 Overview (08/27/2023): Possible diagnosis Encounters Date Type Department Care Team Description 02/22/2025 7:14 PM EDT - 02/22/2025 11:59 PM EDT Hospital Encounter [facility] MRI [address] [place] [id number] Radiculopathy, lumbar region; Spinal stenosis Discharge Disposition: Home or Self Care 01/30/2025 7:44 AM EDT Anesthesia Event [facility] Pain Management [address] [place] [address] Sylvain Corbett MD 01/30/2025 7:25 AM EDT - 01/30/2025 11:59 PM EDT Hospital Encounter [facility] Pain Management [address] [place] [address] Vladislav Antunez DO Radiculopathy, lumbar region Discharge Disposition: Home or Self Care 01/30/2025 6:16 AM EDT - 01/30/2025 11:59 PM EDT Hospital Encounter [facility] Xray [address] [place] [address] Pain Discharge Disposition: Home or Self Care 01/04/2025 2:00 PM EDT Office Visit Pulmonolgy - [facility] [address] [facility] [address] [place] [address] Jose Benjamin MD Moderate asthma, unspecified whether complicated, unspecified whether persistent (Primary Dx); Obstructive sleep apnea from Last 3 Months Immunizations Name Administration [...] fracture repair UPPER GASTROINTESTINAL ENDOSCOPY 01/13/2017 PROCEDURE: [place] UPPER GI ENDOSCOPY PERFORMED; COMMENT: normal UPPER GASTROINTESTINAL ENDOSCOPY 03/08/12 PROCEDURE: [place] UPPER GI ENDOSCOPY PERFORMED; COMMENT: normal OTHER [...] Dr. Bell UPPER GASTROINTESTINAL ENDOSCOPY 09/17/2020 PROCEDURE: [place] UPPER GI ENDOSCOPY PERFORMED; COMMENT: Normal findings. [...] mellitus type 2, co ntrolled, with complications ([facility] V24, [facility] V28) DX:Diabetes mellitus type 2, controlled, with complications ([facility]) Straining with stools DX:Straini ng with stools Asthma DX:Asthma Gastric erosions DX:Gastric eros ions Passage of loose stools DX:Passa ge of loose stools Coronary artery disease invo lving te-moak coronary artery of te-mo[place] heart with angina pectoris ([facility] V24) 12/17/2022 DX:Coronary artery disease involving te-moak coronary artery of te[place]ak heart with angina pectoris ([facility]) Esophageal dysmotility DX:Esopha geal dysmotility Gastritis DX:Gastritis Dysphagia DX:Dysphagia Esophageal dysmotility DX:Esopha geal dysmotility Colon polyps DX:Colon polyps History of MD (myocardial infarction) DX:History of MD (myocardial infarction) Hyperlipidemia 03/06/2024 DX:Hyperlipidemi a JENNIFER [...] Passive Smoke Exposure: Never Smokeless Tobacco: Never Tobacco Cessation:Counseling Given: Not Answered Alcohol Use Standard Drinks/Week Comments Never 0 [...] Sign Reading Time Taken Comments Blood Pressure 128/78 01/30/2025 8:20 AM EDT Pulse 50 01/30/2025 8:20 AM EDT Temperature 36.5 C (97.7 F) 01/30/2025 8:12 AM EDT Respiratory Rate 16 01/30/2025 8:12 AM EDT Oxygen Saturation 95% 01/30/2025 8:20 AM EDT Inhaled Oxygen Concentration - - Weight 65.8 kg (145 lb) 01/30/2025 7:20 AM EDT Height 167.6 cm (5' 6 ) 01/30/2025 7:20 AM EDT Body Mass Index 23.4 01/30/2025 7:20 AM EDT Plan of Treatment Upcoming Encounters Date Type Department Care Team (Late st Contact Info) Description 03/22/2025 3:30 PM EDT Appointment [facility] CT Scan [address] [place] [phone] 04/09/2025 2:30 PM EDT Office Visit Pulmonolgy - [place] [address] [facility] [address] [place] [phone] Jose Benjamin MD [address] [place] [address] 05/09/2025 3:00 PM EDT Office Visit Orthopedics - [address] [phone] Amadeo Sofia PA [address] [place] [phone] 11/14/2025 3:00 PM EDT Office Visit Nephrology - [address] [phone] Eduard Mccormick MD [address] [facility] [address] [place] [phone] Health Maintenance Due Date Last Done Comments Medicare Annual Wellness Visit 06/18/2022 Social Influencers of Health Screening 06/18/2022 Colorectal Cancer Screening: Colonoscopy 02/15/2024 02/14/2019 Depression Screening 07/12/2024 COVID-19 Vaccine (8 - Pfizer risk season) 2025 03/08/2024, 04/13/2023, 04/01/2022, Additional history exists Influenza Vaccine (#1) 2025 , 04/06/2023, 04/20/2022, Additional history exists Hypertension/CHF/CAD Annual BMP Blood Test 11/14/2025 11/14/2024, 03/06/2024, 12/20/2023 Falls Risk Assessment 01/30/2026 01/30/2025, 023 Cholesterol Screening (Lipid Panel) 03/06/2029 03/06/2024, 08/17/2023 DTaP,Tdap,and Td Vaccines (3 - Td or Tdap) 04/26/2030 04/26/2020, 08/31/2012 Zoster Vaccines Completed 01/24/2020, 08/13, 09/16/2015 Pneumococcal Vaccine: 50+ Years Completed 04/09/2020, 04/28/2019 Hepatitis C Screening Addressed 04/18/2020 Overri dden with the intention of not completing the topic RSV Immunization Adult Patients Completed 05/17/2023 HIB Vaccines Aged Out No longer eligi [...] PM EDT Radiculopathy, lumbar region Spinal stenosis CREATININE, SERUM Routine 11/14/2024 1:4 5 PM EDT Proteinuria, unspecified type from Last 3 Months or Most Recently Relevant to Health Maintenance Results * MR Lumbar Spine wo Contrast [...] Signed Date: 02/23/2025 03:53 ET Workstation ID: [id number] Transcribed By: Self Edit Transcribed Date: 02/23/2025 [...] Signed Date: 02/23/2025 03:53 ET Workstation ID: [id number] Transcribed By: Self Edit Transcribed Date: 02/23/2025 03:48 ET Vladislav Antunez DO IMG MRI PROCEDURES Final Result * Creatinine (11/14/2024 1:45 PM EDT) Creatinine 0.95 0.70 - 1.30 mg/dL LAB CHEMISTRY METHOD 11/14/2024 5:46 PM EDT [facility] eGFR 86 >=60 mL/min/1. 73m2 LAB CHEMISTRY METHOD 11/14/2024 5:46 PM EDT [facility] Comment:Calculation based on the Chronic Kidney Disease Epidemiology Collaboration (CKD-EPI) equation refit without adjustment for race. Blood Venous blood specimen / Unknown Venipuncture / Unknown 11/14/2024 1:45 PM EDT 11/14/2024 1:45 PM EDT Eduard Mccormick MD LAB BLOOD ORDERABLES Final Resu lt [facility] [address] [place] [address], [place] [phone] from Last 3 Months or Most Recently Relevant to Health Maintenance Insurance ANDREI KHAN [id number] MEDICAID - [place] [employer] MEDICARE Care Teams Health Therapist Relationship Specialty Start Date End Date Shelbie Upton MD [address] [place] [id number] PCP - General Internal Medicine 10/31/24
--- OUTSIDE RECORDS SUMMARY | 2025-03-14 17:00 | XMS_ITS | Clinical Summary ---
Author Organization [employer] Address [address] [place] [address] 7 [place] [address] Care Team Providers Care Door Technician Name Role Phone Unavailable Primary Care Provider [...]
--- OUTSIDE RECORDS SUMMARY | 2025-03-14 17:00 | XMS_ITS | Clinical Summary ---
Author Organization [facility] Address [address] [facility] [address] [place] [address] Phone Care Team Providers Care Director Of Loss Prevention Name Role Phone Shelbie Upton MD Primary Care Provider [phone] Allergies No known active allergies Medications albuterol [...] Care Team (Late st Contact Info) Description 04/23/2025 3:45 PM EDT Office Visit [facility] [address] [phone] Eduard Mccormick MD [address] [address] Health Maintenance Due Date Last Done Comments [...] patient's age to complete this topic Insurance Medicaid [place] [facility] ([id number]) [facility] ([id number]) Medicaid [place] Care Teams Director Of Loss Prevention Relationship Specialty Start Date End Date Shelbie Upton MD [address] [place] [address], [address] [place] [address] PCP - General Internal Medicine 02/04/24
--- OUTSIDE RECORDS SUMMARY | 2025-03-14 17:00 | XMS_ITS | Patient Health Record ---
Author Organization [facility] Address [address] [facility] [address] [place] [address] Care Team Providers Care Washerette Machine Operator Name Role Phone Wayne Jaimes MD Primary Care Provider JORGE L Burks Unavailable [phone] Allergies No Known Allergies Reason For Referral No Information Medications Medication SIG (Take, Route, Frequency, Duration) Notes Start Date End Date Status Meclizine HCl 12.5 MG 2 tablets as neede d Orally 3 times daily Not-Taking Ketoconazole 2 % 1 application Externally [...] 1 tablet Orally Once a day Not-Taking Lidocaine-Prilocaine 2.5-2.5 % APPLY 1 GRAM OF CREAM TOPICALLY Externally twice daily; Duration: 30 days Active Efinaconazole 10 % 1 application to the [...] primary osteoarthritis of the ankle and/or foot (047427329) Primary osteoarthritis, right ankle and foot (M19.071) Active confirmed Problem Localized, primary osteoarthritis of the ankle and/or foot (830288643) Primary osteoarthritis, left 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) Active confirmed Problem Plantarflexion deformity of right foot (finding) (2627784588494936) Equinus contracture of right ankle (M24.571) Active confirmed Problem Psoriasis (3331166) Psoriasis (L40.9) Active confirmed Problem Lumbar radiculopathy (683136460) Lumbar radiculopathy, right (M54.16) Active confirmed Problem Chondrocalcinosis (486787358) Calcium pyrophosphate deposition disease (CPPD) (M11.20) Active [...] N/A Encounters Encounter Location Date Provider Diagnosis [facility] [address] 04/10/2024 JORGE L REDDY Onychomycosis B35.1 ; Calcium pyrophosphate deposition disease (CPPD) M11.20 ; Psoriasis L40.9 ; Hallux limitus of left foot M20.5X2 ; Hallux limitus of right foot M20.5X1 ; Lumbar radiculopathy, right M54.16 ; Achilles tendinitis, right leg M76.61 and Achilles tendinitis, left leg M76.62 [facility] [address] 07/10/2024 JORGE L REDDY Onychomycosis B35.1 ; Calcium pyrophosphate deposition disease (CPPD) M11.20 ; Psoriasis L40.9 ; Hallux limitus of left foot M20.5X2 ; Hallux limitus of right foot M20.5X1 ; Lumbar radiculopathy, right M54.16 ; Achilles tendinitis, right leg M76.61 and Achilles tendinitis, left leg M76.62 [facility] [address] 10/11/2024 JORGE L REDDY Onychomycosis B35.1 ; Calcium pyrophosphate deposition disease (CPPD) M11.20 ; Psoriasis L40.9 ; Hallux limitus of left foot M20.5X2 ; Hallux limitus of right foot M20.5X1 ; Lumbar radiculopathy, right M54.16 ; Achilles tendinitis, right leg M76.61 and Achilles tendinitis, left leg M76.62 [facility] [address] 01/10/2025 JORGE L REDDY Onychomycosis B35.1 ; Calcium pyrophosphate deposition disease (CPPD) M11.20 ; Infection, Pseudomonas A49.8 ; Psoriasis L40.9 ; Hallux limitus of right foot M20.5X1 ; Hallux limitus of left foot M20.5X2 ; Lumbar radiculopathy, right M54.16 ; Pain in left foot M79.672 and Pain in right foot M79.671 [facility] [address] 01/10/2025 JORGE L REDDY [facility] [address] 01/15/2025 JORGE L REDDY Onychomycosis B35.1 [facility] [address] 01/24/2025 JORGE L REDDY Onychomycosis B35.1 [facility] [address] 01/24/2025 JORGE L REDDY [facility] [address] 02/01/2025 JORGE L REDDY [facility] [address] 02/22/2025 JORGE L REDDY [facility] [address] [facility] [address] [place] [address] 03/02/2025 JOREG L REDDY Assessments Encounter Date Diagnosis (ICD [...] currently being followed at the [facility] for CPPD. His notes were not available [...] currently being followed at the [facility] for CPPD. His notes were not available [...] L REDDY, 04/30/2025 02:45:00 PM, [address], [address], Insurance Providers Payer Name Payer Address Payer Phone Subscriber Number Group Number Insured Name Patient Relationship to Insured Coverage Start Date Coverage End Date [employer] medicare community plan [address] [address] [place] [address] [id number] Laina Reynolds Self - patient is the [...]
--- OUTSIDE RECORDS SUMMARY | 2025-03-14 17:00 | XMS_ITS | Encounter Summary ---
Author Organization [facility] Address [address] [facility] [place] [phone] Phone Care Team Providers Care As400 Consultant Name Role Phone Vitor Mclean MD Primary Care Provider [phone] Encounter Details Date Type Department Care Team (Late st Contact Info) Description 12/15/2019 Procedure Pass OR Admitting Dept - Virtual Department [address] [place] [address] Social History Tobacco Use Types Packs/Day Years Used Date Smoking Tobacco: Never Smokeless Tobacco: Never Sex and Gender Information Value Date Recorded Sex Assigned at Not on file Legal Sex Male 2:02 PM EDT Gender Identity Not on file Sexual Orientation Not on file documented as of this encounter Plan of Treatment Not on file documented as of this encounter Visit Diagnoses Not on filedocumented in this encounter Care Teams As400 Consultant Relationship Specialty Start Date End Date Vitor Mclean MD [address] [facility] 200 [place] [address] PCP - General Pulmonary Disease 12/14/19 documented as of this encounter Additional Source Comments The information contained in this document represents components of the legal health record. It is not the complete legal health record.[facility]
--- OUTSIDE RECORDS SUMMARY | 2025-03-14 17:00 | XMS_ITS | Encounter Summary ---
Author Organization [facility] Address [address] [place] [address] [address] [place] [address] Care Team Providers Care Walnut Dehydrator Operator Name Role Phone Unavailable Primary Care Provider Unavailabl e Encounter Details Date Type Department Care Team (Latest Contact Info) Description 01/23/2022 Abstract [facility] CONVERSIONS Dental, Provider, DDS Social History [...]
== END 2025-03-14 14:42 | disposition home or self-care (01) ==
LOC: HO.LAB 14:41
PROVIDERS: PCP Internal Medicine; Visit Provider Urology
DX: N40.1 Benign prostatic hyperplasia with lower urinary tract symptoms (principal); Z12.5 Encounter for screening for malignant neoplasm of prostate
CPT/HCPCS: 36415; 84153; 99212

== ENCOUNTER 2025-03-14 15:43 | Outpatient (AMB) | payer OTHER, SELFPAY ==
--- NOTE | 2025-03-14 15:46 | A.OFFVIS_ITS ---
Vital Signs 03/14/25 15:48 Height 5 ft 4 in Weight 143 lb 4.807 oz BMI 24.6 BP 133/74 Blood Pressure Location Lt brachial Position Sitting Pulse 70 Intake Visit Reasons: 2nd opinion ? CRICOPHARYNGEAL ACHALASIA Intake Note: Suchul presents in the office as a 2nd opinion. CC: States that he is having some pains - states that he has chest pains that are getting more frequent. He states he is also having some issues with swallowing as well. He has had two incidents where he choked while drinking water. Orchard Pruner Required: Yes Allergies ascorbic acid (Vitamin C) Allergy (Mild, Verified 03/14/25 15:56) Unknown calcium Allergy (Mild, Verified 03/14/25 15:56) Unknown vitamin E (d-alpha tocopherol) Allergy (Mild, Verified 03/14/25 15:56) Unknown HPI Comments Details: 69 y.o Setswana M with PMH of generalized osteoarthritis, GERD with history of esophageal stricture, gout, thyroid nodules s/p R thyroidectomy who is here for second opinion of cricopharyngeal narrowing. Seen with online security solutions engineer. Pt reports hx of occ dysphagia jessica to solids or hard foods. Prev would get sx may be once every 2 months and was taking care to cut up his food very small to avoid this. However, now no matter how much he chews has sensation of food getting stuck or moving very slowly through the esophagus. Does not report any hx of balloon dilation. Pt also reports occ issues with passing BM. Reports stool volume varies, often he feels its not compeltely evacuated. Prev used to have severe constipation and even had to go to ER but now does not have to strain. Just the consistency is an issue. Last EGD 06/2024 without any obvious narrowing or stricture noted. Last colo [address] [facility] without any polyps per pt's report. [facility] Medical History Acute gouty arthritis Perianal dermatitis SOB (shortness of breath) on exertion Finger laceration with complication Encounter to establish care Trigger finger Thyroid nodule Surgical History Stented coronary artery S/P cardiac cath H/O colonoscopy History of esophagogastroduodenoscopy (EGD) Hx of cataract extraction History of thyroid surgery History of prostate surgery Family History Sister Arthritis Mother Heart disease Lung cancer Father Hypertension Sister Thyroid cancer Social History Household Members: Spouse Housing: Apartment Are you a primary client care coordinator to a significant other at home: No Do you presently have visiting nurse or other home services: No Alcohol intake: never Patient Tobacco Use Status: Never used Tobacco e-Cigarette/Vaping Use: Never Used Second Hand Smoke Exposure: No service: No Current occupational status: employed 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 Current occupational exposures/hazards: No Cognitive needs: No Hearing needs: No Vision needs: No Review of Systems Const No All systems reviewed & are unremarkable except as noted in HPI and below Physical Exam Vital Signs: Last Vital Signs Pulse 70 03/14/25 15:48 BP 133/74 03/14/25 15:48 BMI result Body Mass Index 24.6 Assessment & Plan Assessment & Plan (1) Cricopharyngeal dysphagia: Code(s): R13.13 - Dysphagia, pharyngeal phase Category: Medical (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 Dysphagia Will set him up for egd with dilation for cricopharyngeal dysphagia. Pt aware to HOLD brillinta x 5 days for this. 2. 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 Will repeat bx at next EGD for confirmation. 3. Constipation Reports intermittent sensation of incomplete evacuation of bowels based on volume of stool. Sometimes also has to strain. Plan: - Add fiber supplementation - Add miralax once a day as needed Follow up back with October after egd Coding Level of Care Code Est Pt Level 4 (79074) Diagnoses Cricopharyngeal dysphagia R13.13 Soto esophagus K22.70 Constipation K59.00
[2025-03-14 15:48] VITALS: BP 133/74; PULSE 70; BMI 24.6
== END 2025-03-14 16:30 | disposition home or self-care (01) ==
LOC: HO.HGI 15:44
PROVIDERS: PCP Internal Medicine; Visit Provider Internal Medicine
DX: R13.13 Dysphagia, pharyngeal phase (principal); K22.70 Barrett's esophagus without dysplasia; K59.00 Constipation, unspecified
CPT/HCPCS: 99214

== ENCOUNTER 2025-04-04 13:42 | Observation (INO) | payer OTHER, SELFPAY ==
[2025-04-04] VITALS (8 sets, daily range): BP systolic 93–198; BP diastolic 51–81; PULSE 49–58; RESP 12–18; TEMP 36.3–36.7; O2SAT 95–98; BMI 23.1; BMI 24.0
--- NOTE | ~2025-04-04 | CT_ITS ---
CLINICAL HISTORY: chest pain; r o Dissection CT angiography chest with contrast. 3D Postprocessing. Comparison: None provided Findings: The heart is normal size. RV/LV ratio is normal. Calcified coronary arteriosclerotic disease. The thoracic aorta is normal caliber. No main or segmental pulmonary emboli. Hiatal hernia. Resection of the left thyroid lobe. Minimal bibasilar dependent subsegmental atelectasis. Right renal upper pole exophytic low-attenuation lesion 1.3 cm renal cyst. Mild osteopenia. IMPRESSION: 1. No main or segmental pulmonary emboli. 2. Calcified coronary arteriosclerotic disease. This document has been electronically signed by: Andrew Sanchez MD on 04/04/2025 20:18:26
--- NOTE | ~2025-04-04 | XR_ITS ---
EXAMINATION: XR CHEST CLINICAL INFORMATION: chest pain COMPARISON: None available. TECHNIQUE: 2 views of the chest were obtained. FINDINGS: The cardiac, hilar, and mediastinal contours are normal. The lungs are clear bilaterally. There is no pneumothorax or pleural effusion. There is no focal osseous or soft tissue abnormality. There are surgical clips in the lower neck. XR/XR chest 2V IMPRESSION: No active pulmonary disease. Electronically signed by: Stuart Quinones MD 04/04/2025 02:08 PM EDT RP
--- NOTE | 2025-04-04 13:43 | ECG_ITS ---
Test Reason : CP Blood Pressure : */* mmHG Vent. Rate : 58 BPM Atrial Rate : 58 BPM P-R Int : 128 ms QRS Dur : 86 ms QT Int : 430 ms P-R-T Axes : 30 0 32 degrees QTcB Int : 422 ms Sinus bradycardia Otherwise normal ECG When compared with ECG of 20-Mar-2012 18:35, No significant change was found Referred By: Generic ED Physician Electronically Signed By: Jones Ortega
--- NOTE | 2025-04-04 13:54 | ED.GENADULT ---
HPI - General Adult General Chief complaint: Chest Pain Stated complaint: CP Time Seen by Provider: 04/04/25 16:10 Source: patient Mode of arrival: ambulatory Limitations: no limitations History of Present Illness ED Provider: Dr. Fischer HPI narrative: 69-year-old male history of CAD with 2 stents, hyperlipidemia, CKD presented hospital today for evaluation of chest pain. Patient describes as a left-sided chest pain that radiates to his left shoulder. Patient does endorse some shortness of breath associated with this. He states it is a constant chest pain. He states this is similar to the time he had knee the stents. No recent travel no recent surgeries. No leg swelling identified. Related Data Home Medications ?Medication ?Instructions ?Recorded ?Confirmed losartan 25 mg tablet 25 mg PO DAILY 04/14/21 02/27/25 gabapentin 300 mg capsule 300 mg PO BID 10/12/22 02/27/25 efinaconazole 10 % topical 1 appl topical DAILY 02/08/24 02/27/25 solution with applicator (Jublia) ketoconazole 2 % topical cream appl topical BID 02/08/24 02/27/25 lidocaine-prilocaine 2.5 %-2.5 % 1 g topical BID 02/08/24 02/27/25 topical cream montelukast 10 mg tablet 10 mg PO QPM 04/17/24 02/27/25 betamethasone, augmented 0.05 % appl topical 04/26/24 02/27/25 topical cream famotidine 20 mg tablet 20 mg PO BID 09/14/24 02/27/25 mirabegron 50 mg tablet,extended 50 mg PO DAILY 11/23/24 02/27/25 release 24 hr (Myrbetriq) Previous Rx's ?Medication ?Instructions ?Recorded albuterol sulfate 90 mcg/actuation 2 puff inhalation Q4H PRN 02/08/24 aerosol inhaler shortness of breath or wheezing #8.5 grams diclofenac sodium 1 % topical gel 1 g topical BID 90 days #100 grams 02/08/24 atorvastatin 40 mg tablet 40 mg PO DAILY #30 tabs 07/17/24 linaclotide 145 mcg capsule 145 mcg PO QAM #30 caps 07/25/24 (Linzess) sucralfate 100 mg/mL oral 10 ml PO QIDACHS #400 mL 09/15/24 suspension ezetimibe 10 mg tablet 10 mg PO DAILY #30 tabs 09/16/24 metoprolol succinate 25 mg 25 mg PO DAILY #30 tabs 09/16/24 tablet,extended release 24 hr (Toprol XL) ticagrelor 90 mg tablet 90 mg PO BID #90 tabs 10/12/24 magnesium hydroxide 600 mg 600 mg PO .twice weekly #90 tabs 11/21/24 chewable tablet aspirin 81 mg tablet,delayed 81 mg PO DAILY #90 tabs 12/12/24 release rabeprazole 20 mg tablet,delayed 20 mg PO QAM #30 tabs 02/08/25 release nitroglycerin 0.4 mg sublingual 0.4 mg sublingual Q5M PRN chest 02/27/25 tablet pain #20 tabs Allergies Allergy/AdvReac Type Severity Reaction Status Date / Time No Known Allergies Allergy Verified 04/04/25 13:59 Review of Systems Review of Systems: Pertinent review of systems as mentioned in HPI. All other system otherwise negative. [facility] Past Medical History [facility] Narrative: Medical history as mentioned in HPI Medical History Acute gouty arthritis Perianal dermatitis SOB (shortness of breath) on exertion Finger laceration with complication Encounter to establish care Trigger finger Thyroid nodule Surgical History Stented coronary artery S/P cardiac cath H/O colonoscopy History of esophagogastroduodenoscopy (EGD) Hx of cataract extraction History of thyroid surgery History of prostate surgery Family History Family History Sister Arthritis Mother Heart disease Lung cancer Father Hypertension Sister Thyroid cancer Social History Social History Household Members: Spouse Housing: Apartment Are you a primary infant caregiver to a significant other at home: No Do you presently have visiting nurse or other home services: No Alcohol intake: never Patient Tobacco Use Status: Never used Tobacco Smoked in Last 30 Days: No e-Cigarette/Vaping Use: Never Used Second Hand Smoke Exposure: No Use of substances other than those prescribed or required for medical reasons: No Advance Directives: No Advance Directives Information Provided: Yes Do you have a plan to hurt others: No Plan service: No Current occupational status: employed 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 Current occupational exposures/hazards: No Cognitive needs: No Hearing needs: No Vision needs: No Physical Exam ED Exam Exam: General: Pleasant, no distress, interacting appropriately Head: Normacephalic, atraumatic ENT: oral mucosa moist, neck supple, no tracheal deviation Cardiovascular: regular rate, regular rhythm, no murmurs, rubbing, gallops Respiratory: CTAB, no wheeze, rales, rhonchi Gastrointestinal: Soft, non distended, non tender, non guarding Extremities: Pulse intact in the left upper extremity, full range of motion Neurological: Awake and alert, no facial droop noted Skin: Warm and dry Psychiatric: Appropriate mood and thoughts Vital Signs: Vital Signs - 24 hr 04/04/25 13:50 04/04/25 14:53 Temperature 97.9 F Pulse Rate 58 54 Respiratory Rate 18 16 Blood Pressure 198/81 H 141/77 H Pulse Oximetry 97 98 Oxygen Delivery Method Room Air Room Air BMI result Body Mass Index 23.1 Course Course Course Narrative: This is a rapid medical exam performed by Jacek Collazo NP: Additional HPI, ROS, PE not included below will be deferred to primary provider. Patient is a 69y/o Armenian speaking male presenting to the ED with complaint of chest, left shoulder and arm pain since around midnight. Describes as a squeezing pain. Had stent placed in September of this year, seeing cardiology is Apr. Plan: EKG, labs, CXR Medications Administered Discontinued Medications Generic Name Dose Route Start Last Admin Trade Name Jigna PRN Reason Stop Dose Admin Aspirin 243 mg 04/04/25 16:25 04/04/25 16:39 Aspirin 81 Mg Tab.Chew PO 04/04/25 16:26 243 mg ONCE ONE Administration Nitroglycerin 0.4 mg 04/04/25 16:25 04/04/25 17:16 Nitroglycerin 0.4 Mg Patch.Td24 TRANSDERMA 04/04/25 16:26 0.4 mg ONCE ONE Administration Protocol Medical Decision Making Medical Decision Making MDM Narrative: 69-year-old male history of CAD to stands, hyperlipidemia presented hospital today for evaluation of chest pain that radiates to his left arm. Patient states he does have GERD in the past. EKG did not show any signs of STEMI. Initial troponin is negative. Second troponin is pending at this time. Chest x-ray is unremarkable. No sign of significant abnormality in the rest of his chest x-ray. We will plan to load the patient with aspirin here. We will plan to give him a dose of nitroglycerin to see if this will help with his pain. Second troponin is not elevated, chest x-ray is negative, D-dimer is negative. I do not think this is PE. However after reassessment the patient stated his nitroglycerin did help with his chest pain. Patient was loaded aspirin. I did reach out to line pilot on-call Dr. Ortega. He recommends admission to the hospital at this time. Patient will be admitted to the hospital. Differential Diagnosis Differential Diagnoses: The differential diagnosis associated with the presentation includes Angina, unstable angina, NSTEMI, STEMI, CAD, PE Consult Healthcare Provider Management of the patient was discussed with: Hospitalist and Water Systems Designer (Dr. Ortega) Lab Data MDM Lab Attestation statement: I reviewed the patient's lab results. 04/04/25 14:41 04/04/25 14:41 Labs: Lab Results 04/04/25 04/04/25 04/04/25 Range/Units 14:41 16:02 16:45 WBC 4.8 (4.8-10.8) X10*3/uL RBC 4.92 (4.60-5.80) X10*6/uL Hgb 14.8 (14.0-18.0) g/dl Hct 42.6 (42.0-52.0) % MCV 86.6 (80.0-98.0) fL MCH 30.1 (27.0-33.0) pg MCHC 34.7 (31.0-36.0) g/dl RDW 12.2 (11.0-16.0) % Plt Count 188 (160-400) X10*3/uL MPV 8.8 L (9.4-12.4) fL Immature Gran % (Auto) 0.2 (0.0-0.4) % Neut % (Auto) 63.9 (45-73) % Lymph % (Auto) 26.2 (20-40) % [place] % (Auto) 8.9 (2-11) % Eos % (Auto) 0.6 (0-4) % Baso % (Auto) 0.2 (0-2) % Lymph # (Auto) 1.3 (1.2-4.9) X10*3/uL [place] # (Auto) 0.4 (0.1-1.2) X10*3/uL Eos # (Auto) 0.0 (0.0-0.4) X10*3/uL Baso # (Auto) 0.0 (0.0-0.2) X10*3/uL Abs Immat Gran (auto) 0.01 (0.00-0.03) X10*3/uL Absolute Neuts (auto) 3.1 (2.0-8.3) x10*3/uL Absolute Nucleated RBC 0.000 (0.0-0.012) X10*3/uL Nucleated RBC % (auto) 0.0 (0.0-0.2) /100WBC PT 10.6 L (10.9-12.4) SEC INR 0.9 (0.9-1.1) D-Dimer High Sensitivty < 150 NG/ML Sodium 143 (135-145) mmol/L Potassium 4.5 (3.3-5.1) mmol/L Chloride 107 (96-108) mmol/L Carbon Dioxide 30 H (22-29) mmol/L Anion Gap 11 L (12-20) BUN 15 (9-16) mg/dL Creatinine 0.95 (0.5-1.4) mg/dL Estim Creat Clear Calc 64.3 Estimated GFR > 60 Random Glucose 93 (60-115) mg/dL Calcium 9.9 (8.4-10.2) mg/dL Magnesium 2.2 (1.6-2.6) mg/dL Total Bilirubin 0.7 (0.0-1.0) mg/dL AST 29 (5-37) U/L ALT 35 (0-40) U/L Alkaline Phosphatase 61 (39-117) U/L Troponin I High Sens 3.2 3.7 (<3.5-35.0) ng/L NT-Pro-B Natriuret Pep 172.8 (<300) pg/mL Total Protein 7.0 (6.5-8.0) g/dL Albumin 4.3 (3.5-5.0) g/dL Independent Interpretation I performed an independent interpretation of an: Plain X-Ray Radiology Impression Discussion of test interpretation with radiology: I have reviewed the radiologist's reading. Chronic Conditions CAD with stents Discharge Plan Discharge Clinical Impression: Chest pain Patient Disposition: Admitted As Inpatient Print Language: Other
[2025-04-04 14:45] LABS: MANUAL DIFF FLAG NO
[2025-04-04 14:50] LABS: Hematocrit 42.6 % (42.0-52.0); Hemoglobin 14.8 g/dl (14.0-18.0); Imm Gran Abs Auto 0.01 X10*3/uL (0.00-0.03); Imm Gran Pct Auto 0.2 % (0.0-0.4); Lymphocytes Absolute Auto 1.3 X10*3/uL (1.2-4.9); Mean Corpuscular HGB Conc 34.7 g/dl (31.0-36.0); Mean Corpuscular Hemoglobin 30.1 pg (27.0-33.0); Mean Corpuscular Volume 86.6 fL (80.0-98.0); NRBC Abs Auto 0.000 X10*3/uL (0.0-0.012); NRBC Pct Auto 0.0 /100WBC (0.0-0.2); Platelet Count 188 X10*3/uL (160-400); Red Blood Count 4.92 X10*6/uL (4.60-5.80); White Blood Count 4.8 X10*3/uL (4.8-10.8)
[2025-04-04 14:59] LABS: INTERNATIONAL NORM RATIO 0.9 (0.9-1.1); Prothrombin Time 10.6 SEC (10.9-12.4)
[2025-04-04 15:02] LABS: Alanine Aminotransferase 35 U/L (0-40); Albumin Level 4.3 g/dL (3.5-5.0); Alkaline Phosphatase 61 U/L (39-117); Anion Gap 11 (12-20); Aspartate Amino Transferase 29 U/L (5-37); Blood Urea Nitrogen 15 mg/dL (9-16); Calcium 9.9 mg/dL (8.4-10.2); Carbon Dioxide 30 mmol/L (22-29); Chloride 107 mmol/L (96-108); Creatinine Clr Calc Pharmacy 64.3; Estimated Glomerular Filt Rate > 60; Magnesium 2.2 mg/dL (1.6-2.6); Potassium 4.5 mmol/L (3.3-5.1); Sodium 143 mmol/L (135-145); Total Protein 7.0 g/dL (6.5-8.0)
[2025-04-04 15:11] LABS: NT Pro B Type Natriuretic Pept 172.8 pg/mL (<300); Troponin-I High Sensitivity 3.2 ng/L (<3.5-35.0)
[2025-04-04 16:31] LABS: Troponin-I High Sensitivity 3.7 ng/L (<3.5-35.0)
[2025-04-04 17:09] LABS: D Dimer High Sensitivity < 150 NG/ML
--- OUTSIDE RECORDS SUMMARY | 2025-04-04 17:09 | XMS_ITS | Clinical Summary ---
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 [address] [phone] Eduard Mccormick MD [address] [address] Health Maintenance Due Date Last Done Comments [...] to complete this topic Insurance Medicaid [place] [facility] ([id number]) [facility] ([id number]) Medicaid [place] Care Teams International Student Counselor Relationship Specialty Start Date End Date Shelbie Upton MD [address] [place] [address], [facility] [address] [place] [address] PCP - General Internal Medicine 02/04/24
--- OUTSIDE RECORDS SUMMARY | 2025-04-04 17:09 | XMS_ITS | Data Portability ---
Author Organization [place] - [facility], Allergy Address [address] [address] Care Team Providers Care Caster Operator Name Role Phone SUMMER LOWE Primary [...] month. He will follow up with Dr. Cherry after he completes voice therapy in 3 months, sooner with issues. Patient agrees with the plan. [email or web address] Not available 05/10/2024 16:24:58 Plan of Treatment Reminders Order Date Submit Date Provider Last Modified By Organization Details Last Modified Time Details Appointments None record ed. Lab None record ed. Referral speech therap y referr al 2024 025 [email or web address] [facility], [address] [place] [address] [place], [address], 14:07:54 speech therap y referr al - Appt 05/26 @ 8:30am 2023 024 [facility], [address], [address] Floor, [place], [address], 09:38:44 Procedures None record ed. Surgeries None record ed. Imaging CT, neck, soft tissue , w/ contra st - Chroni c sore throat evalua te for neopla sm. 2024 025 [email or web address] [facility], [address], [address], [place], [address], 5 13:38:32 Medication Orders famoti dine 20 mg tablet 2024 025 [facility], [address] [place] [address], [address], 5 15:05:18 nystat in 100,00 0 unit/m L oral suspen sun 2023 024 [facility], [address] [place] [address], [address], 4 16:22:57 nystat in 100,00 0 unit/m L oral suspen sun 2023 024 [facility] [address] [place] [address], [address], 4 14:42:09 Patient TargetsNo targets recorded. Patient InstructionsNo instructions recorded. Reason for Referral Appt 05/26 @ 8:30am Referring Physician: Eneida Cherry, Otolaryngology, Encounter Date: 04/21/2024 Referring Physician: Eneida Cherry Otolaryngology, Encounter Date: 08/10/2024 Results Created Date Observation Date Name Description Value Unit Range Abnormal Flag Note LastModifiedBy Organization Detail LastModifiedTime 03/22/2003/22/2025 BUN BUN 14 mg/dL 5-25 Not Available [facility] U/S Dept [address] [place], [address], 03/22/2025 14:37:11 03/22/20 25 03/22/2025 BUN note See Report [facility], [address], [place], [place] [address] Not Available [facility]/S Dept [address] [place], [address], 03/22/2025 14:37:11 03/22/20 25 03/22/2025 CREAT ININE creatinine 1.01 mg/dL 0.70-1 .30 Not Available [facility]/S Dept [address], [place], [address], 03/22/2025 14:37:12 03/22/20 25 03/22/2025 CREAT ININE eGFR 80 mL/mi n/1.7 3m2 >=60 Calcu latio n based on the Chron ic Kidne y Disea se Epide miolo gy Colla borat ion (CKD- EPI) equat ion refit witho ut adjus tment for race. Not Available [facility]/S Dept [address] [place], [address], 03/22/2025 14:37:12 03/22/20 25 03/22/2025 CREAT ININE note See Report [facility], [address], [place], [place] [address] Not Available [facility]/S Dept [address] [place], [address], 03/22/2025 14:37:12 03/23/20 25 03/22/2025 CT, neck, soft tissu e, w/ contr ast See Note [facility] , a member of [employer] [facility] Name: ADDIE GARCIA Date of : 1955 Reason for Exam: CHRONI C PHARYN GITIS ,CHRON IC SORE THROAT Exam Date: 2024 [id number] EST Report Status : Final Orderi ng Provid er: ENEIDA STOKES INER PCP: SUMMER LOWE PROCED URE: Contra st enhanc ed CT of the neck. HISTOR Y: CHRONI C PHARYN GITIS ,CHRON IC SORE THROAT . TECHNI QUE: CT of the neck with mccoy l and sagitt al reform ats. IV CONTRA ST DOSE: 90 mL ISOVUE -370. Dose length produc t: 317 mGy-cm . COMPAR NATASHA: FINDIN GS: The visual ized portio ns of the brain are normal . There is mild right sided plagio cephal y. Lens implan ts. Orbits otherw ise unrema rkable . There is a small mucous retent ion cyst along the floor the right maxill ellen antrum .. The mastoi ds and middle ear spaces are clear. The skull base forami na are normal . The paroti d and subman dibula r glands are normal . Left hemith yroide ctomy. Motion limits evalua tion at the level of the glotti s. No visibl e abnorm ality of the mucosa l surfac es of the neck. No cervic al lympha denopa thy. No mass or fluid collec tion. The major arteri es and veins of the neck demons trate normal opacif icatio n follow ing contra st admini strati on. The visual ized portio ns of the medias tinum and lung apices are normal . Minima l degene rative change s of the cervic al spine. No suspic ious bony lesion . IMPRES SUN: Left hemith yroide ctomy. No acute findin gs. ------ -- FINAL REPORT ------ -- Dictat ed By: Pancho Marquez Dictat ed Date: 2024 16:10 ET Assign ed Physic kevon: Pancho Marquez Review ed and Electr onical ly Signed By: Pancho Marquez Signed Date: 2024 16:34 ET Workst ation ID: [id number] Transc ribed By: Self Edit Transc ribed Date: 2024 16:10 ET [facility] Dept [address] [place], [address], 03/28/2025 15:08:58 Result Notes Documentation Provider Name and Address Organization Details Recorded Time Ct, Neck, Soft Tissue, W/ Contrast : See Note [facility], a member of [employer] Patient Name: ADDIE GARCIA Date of : 1955 Reason for Exam: CHRONIC PHARYNGITIS ,CHRONIC SORE THROAT Exam Date: 03/22/2025 [id number] EST Report Status: Final Ordering Provider: ENEIDA CHERRY PCP: SUMMER LOWE PROCEDURE: Contrast enhanced CT of the neck. HISTORY: CHRONIC PHARYNGITIS ,CHRONIC SORE THROAT. TECHNIQUE: CT of the neck with coronal and sagittal reformats. IV CONTRAST DOSE: 90 mL ISOVUE-370. Dose length product: 317 mGy-cm. COMPARISON: FINDINGS: The visualized portions of the brain are normal. There is mild right sided plagiocephaly. Lens implants. Orbits otherwise unremarkable. There is a small mucous retention cyst along the floor the right maxillary antrum.. The mastoids and middle ear spaces are clear. The skull base foramina are normal. The parotid and submandibular glands are normal. Left hemithyroidectomy. Motion limits evaluation at the level of the glottis. No visible abnormality of the mucosal surfaces of the neck. No cervical lymphadenopathy. No mass or fluid collection. The major arteries and veins of the neck demonstrate normal opacification following contrast administration. The visualized portions of the mediastinum and lung apices are normal. Minimal degenerative changes of the cervical spine. No suspicious bony lesion. IMPRESSION: Left hemithyroidectomy. No acute findings. -------- FINAL REPORT -------- Dictated By: Pancho Wood Dictated Date: 03/23/2025 16:10 ET Assigned Physician: Pancho Wood Reviewed and Electronically Signed By: Pancho Wood Signed Date: 03/23/2025 16:34 ET Workstation ID: [id number] Transcribed By: Self Edit Transcribed Date: 03/23/2025 16:10 ET ENEIDA CHERRY MD [address] [place] [address], [address], [facility] - [facility] 03/26/2025 09:19:42 Problems Name Problem SNOMED Code Status Onset Date Resolution Date Notes Provider Name and Address Organization Details Recorded Time Gastroeso phageal reflux disease without esophagit is 715271317 Active 2015 Gastro-es ophageal reflux disease without esophagit is; Note: Date Diagnosed : 07/22/2015 2:46 PM (K21.9) Not Available [facility] 4 02:19:18 Cough 82854001 Active 2015 Cough, unspecifi ed; Note: Changed from R05 to R05.9 ( 2 2:10 PM) , Date Diagnosed : 09/04/2015 3:10 PM (R05) Not Available [facility] 4 02:19:08 Paralysis of larynx 85738599 Active 2019 Paralysis of vocal cords and larynx, unilatera l; Note: Date Diagnosed : 12/12/2019 3:31 PM (J38.01) Not Available [facility] 4 02:18:19 Sensorine ural hearing loss of bilateral ears 038904005 Active 2019 Sensorine ural hearing loss, bilateral ; Note: Date Diagnosed : 02/26/2020 3:32 PM (H90.3) Note: Date Diagnosed : 02/26/2020 3:32 PM (H90.3) Not Available [facility] 4 00:53:14 Benign paroxysma l positiona l vertigo 052003638 Active 2019 Benign paroxysma l vertigo, left ear; Note: Date Diagnosed : 02/26/2020 3:32 PM (H81.12) Not Available [facility] 4 02:18:20 Stomatiti s 01456677 Active 2020 Oral thrush; Note: Date Diagnosed : 04/14/2021 11:22 AM (B37.0) Not Available [facility] 4 02:18:55 Candidias is of mouth 62413108 Active 2020 Oral thrush; Note: Date Diagnosed : 04/14/2021 11:22 AM (B37.0) Not Available [facility] 4 02:18:55 Dysphagia 64661184 Active 2022 Dysphagia , unspecifi ed; Note: Date Diagnosed : 10/27/2021 12:05 PM (R13.10) ; Start Date : 2 Other dysphagia ; Note: Date Diagnosed : 04/07/2023 1:44 PM (R13.19) Not Available [facility] 4 02:19:19 Oropharyn geal dysphagia 38570336 Active 2023 Dysphagia , oropharyn geal phase; Note: Date Diagnosed : 09/16/2023 1:19 PM (R13.12) Not Available [facility] 4 02:19:08 Hemoptysi s 44360675 Active 2023 ENEIDA CHERRY MD 100 [facility],[place] [address], [facility] [place], [address] , [place] - [facility] 4 14:33:59 Chronic sore throat 047877605 Active 2023 ENEIDA CHERRY MD 100 [facility],[place] [address], [facility] [place], [address] , [place] - [facility] [place] 4 14:34:04 Chronic hoarsenes s 73845253506 05 Active 2023 ENEIDA CHERRY MD 100 [facility],[place] [address], [facility] [place], [address] , [place] - [facility] 4 14:42:59 Problem Notes None recorded. Procedures Surgical History Date Name Laterality Status Provider Name and Address Organization Details Recorded Time 02/09/20 25 FFL_RE completed ENEIDA CHERRY MD 100 [facility],[place] [address], [place], [address], [facility] - [facility] [place] [facility] 02/08/2025 14:50:49 08/10/19 25 FFL_RE completed ENEIDA CHERRY MD [address] [facility] [place] [address], [place], [address], [place] - [facility] 08/10/2024 15:02:15 04/21/20 24 FFL_RE completed ENEIDA CHERRY MD [address] [place] [address], [address], [place] - [facility] 04/21/2024 14:41:39 transurethral prostatectomy completed Bibi Neal [place] - [facility] 05/10/2024 14:05:40 subtotal thyroidectomy completed Bibi Neal [place] - [facility] 05/10/2024 14:05:53 Imaging Results None recorded. Procedure Notes None recorded. Medical Equipment None Reported. Allergies No known drug allergies Medications Name Sig Start Date Stop Date Status Note LastModified by Organization Details LastModified Time losartan 50 mg tablet 05/06 completed Medicati on ID: [id number] B rand Name: losartan Send Method: E-Prescr [...] layed release TAKE 1 TABLET BY MOUTH EVERY MORNING active Not Available Not Available No t Available atorvasta tin 10 mg tablet TAKE 1 TABLET BY MOUTH ONCE DAILY active Not Available Not Available No t Available ibuprofen 800 mg tablet TAKE 1 TABLET BY MOUTH THREE TIMES DAILY NEEDED 05/06 completed Not Available Not Available Not Available tizanidin e 4 mg tablet TAKE 1 TABLET BY MOUTH EVERY NIGHT active Not Available Not Available No t Available valacyclo vir 1 gram tablet 05/06 completed Medicati on ID: [id number] D uration Value: 7 Brand Name: valacycl [...] mucosal jelly 05/10 completed Medicati on ID: [id number] D uration Value: 14 Brand Name: lidocain [...] 1 TABLET BY MOUTH 4 TIMES DAILY FOR 7 DAYS active Not Available Not Available No t Available triamcino lone acetonide 0.1 % topical [...] GRAM OF CREAM TOPICALL Y TWICE DAILY active Not Available Not Available No t Available famotidin e 20 mg tablet TAKE 1 TABLET BY MOUTH TWICE DAILY active Not Available Not Available No t Available triamcino lone acetonide 0.025 % topical cream APPLY 1 APPLICAT ION OF CREAM TOPICALL Y ONCE DAILY FOR THE RASH ON THE BACK OF THE RIGHT ANKLE AND HEEL FOR 14 DAYS active Not Available Not Available No t Available tamsulosi n 0.4 mg capsule 05/06 completed Medicati on ID: [id number] D uration Value: 90 Brand Name: tamsulos in Send Method: E-Prescr ibed Sub s Allowed: subs [place] Speci al Instruct ion: TAKE ONE CAPSULE DAILY Me dication GenericN ajy: tamsulos in Not Available Not Available Not Available pantopraz ole 40 mg tablet,de layed release 07/12 completed Medicati on ID: [id number] D uration Value: 30 Brand Name: pantopra kvng Ruvalcaba d Method: E-Prescr ibed Sub s Allowed: [...] by mouth 07/12 completed Medicati on ID: [id number] D uration Value: 30 Prescri bed By [...] completed Not Available Not Available Not Available metoprolo l succinate ER 25 mg tablet,ex tended release 24 hr TAKE 1 TABLET BY MOUTH ONCE DAILY active Not Available Not Available No t Available ibuprofen 600 mg tablet TAKE 1 TABLET BY MOUTH THREE TIMES DAILY WITH MEALS FOR 5 DAYS 05/10 completed Not Available Not Available Not Available polyethyl rosa glycol 3350 17 gram/dose oral powder 05/10 completed Medicati on ID: [id number] D uration Value: 30 Brand Name: polyethy [...] inhaler INHALE 2 PUFFS BY MOUTH EVERY 6 HOURS NEEDED FOR WHEEZING active Not Available Not Available No t Available ketoconaz ole 2 % topical cream APPLY CREAM TOPICALL Y TO RASH ON FEET TWICE DAILY UNTIL CLEAR 05/10 completed Not Available Not Available Not Available gentamici n 0.1 % topical ointment APPLY 1 APPLICAT ION OF OINTMENT TOPICALL Y ONCE DAILY. APPLY TO THE RIGHT BIG TOE AND LEFT 5TH TOE FOR 30 DAYS active Not Available Not Available No t Available oxycodone 5 mg tablet TAKE 1 TABLET BY MOUTH EVERY 8 HOURS NEEDED FOR PAIN FOR UP TO 3 DAYS 05/06 completed Not Available Not Available Not Available azithromy zuly 500 mg tablet TAKE 1 TABLET BY MOUTH ONCE DAILY UNTIL GONE 05/10 completed Not Available Not Available Not Available ezetimibe 10 mg tablet TAKE 1 TABLET BY MOUTH ONCE DAILY active Not Available Not Available No t Available Pain Reliever (acetamin ophen) 500 mg [...] layed release 12/11 completed Medicati on ID: [id number] Jennifer bar By Name: Trevon [address], nd Name: omeprazo le Send Method: E-Prescr ibed Sub s Allowed: subs [place] Speci al Instruct ion: Take 1 tablet by mouth every day before bed Medi cation nericNam e: omeprazo le Not Available Not Available Not Available Brilinta 90 mg tablet TAKE 1 TABLET BY MOUTH TWICE DAILY active Not Available Not Available No t Available Myrbetriq 50 mg tablet,ex tended release [...] r APPLY 1 APPLICAT ION TOPICALL Y ONCE DAILY active Not Available Not Available No t Available Flonase Allergy Relief 50 mcg/actua tion nasal spray,reinaldo pension 2 puff into both nostrils 10/17 completed Medicati on ID: [id number] Jennifer bar By Name: [address], nd Name: Flonase Allergy Relief S end Method: E-Prescr ibed Sub s Allowed: subs [place] Medic ationGen ericName : Flonase Allergy Relief Not Available Not Available Not Available Arthritis Pain (diclofen ac) 1 % topical gel APPLY GEL TOPICALL Y TO THE RIGHT FOOT TWICE DAILY NEEDED FOR PAIN FOR 30 DAYS DIRECTED active Not Available Not Available No t Available Vitals Date Recorded Body height Provider Name an d Address Organization Details Last Updated DateTime 08/10/2024 167.64 cm Aakash Weaver [place] - [facility] 08/10/2024 14:29:36 Date Recorded Body height Body mass index (BMI) Body weight Provider Name and Address Organization Details Last Updated DateTime 02/08/2025 167.64 cm 27 kg/m2 99351.93 g Aakash Weaver [place] - [facility] 02/08/2025 14:31:52 Date Recorded Body height Body mass index (BMI) Body weight Provider Name and Address Organization Details Last Updated DateTime 04/21/2024 167.64 cm 27 kg/m2 81386.93 g Aakash Weaver [facility] 04/21/2024 14:00:43 Date Recorded Body height Body weight Provider Name and Address Organization Details Last Updated DateTime 05/10/2024 167.64 cm 94204.93 g Bibi Neal [facility] 05/10/2024 14:01:54 Social History None recorded. Functional Status None recorded. Mental Status None recorded. Family History Nothing Reported. Medical History Condition Response Sleep Disorder Y GERD/Reflux Y Hypertension Y Past Encounters Encounter ID Performer Location Encounter Start Date Encounter Closed Date Diagnosis/Indication Diagnosis SNOMED-CT Code Diagnosis ICD10 Code Diagnosis IMO Codes Diagnosis Note [id number] ENEIDA CHERRY MD [facility] [address] [address] 04/21/2024 13:44:06 04/21/2024 15:41:33 Hemoptysis 44396301 R04.2 resolved. laryngosco py negative today for bleeding Chronic sore throat 2754 50990 J31.2 likely due to thrush. Gastroesop hageal reflux disease without esophagitis 028375043 K21.9 continue esomeprazo le Candidiasis of mouth 797 17337 B37.0 FFL notable for montez in base of tongue. LIkely secondary to steroid inhalers. Will treat with nystatin. I asked him to call if not improved. No tumors on laryngosoc py. Chronic hoarseness 26761 66391 105 R49.0 will make voice therapy referral to [facility] [id number] CHENG IBARRA PA-C [facility] [address] [address] 05/10/2024 13:45:35 05/10/2024 15:10:38 Candidiasis of mouth 34932179 B37.0 Chronic hoarseness 00148 06040 105 R49.0 Chronic sore throat 2754 80601 J31.2 Gastroesop hageal reflux disease without esophagitis 097277650 K21.9 [id number] ENEIDA CHERRY MD [facility] [address] [address] 08/10/2024 13:56:29 08/10/2024 15:05:58 Chronic sore throat 007536079 J31.2 no evidence of thrush. he has breakthrou gh heartburn and I think the soreness is due to LPR. I will add dual therapy for reflux with famotidine in addition to his PPI. Gastroesop hageal reflux disease without esophagitis 728814478 K21.9 begin dual thearpy Candidiasis of mouth 797 00238 B37.0 resolved Chronic hoarseness 05442 58453 105 R49.0 will make voice therapy referral to [place] since he could not be seen at [facility], [facility] no vocal cord lesions. [id number] ENEIDA CHERRY MD [facility] [address] [place] [address] 02/08/2025 14:21:54 02/08/2025 15:05:34 Chronic sore throat 396312003 J31.2 He did not improve with dual PPI therapy and I recommend a CT of the neck with contrast to exclude any neoplastic process. Laryngosco py today showed changes consistent with reflux including erythema and cobbleston ing. I did not see any tumors. Gastroesop hageal reflux disease without esophagitis 227987102 K21.9 He can stop famotidine since he did not benefit and just remain on his PPI. Chronic hoarseness 51516 03603 105 R49.0 No vocal cord lesions on laryngosco py. I recommend he continue speech therapy. He plans to do so. Health Concerns Section Related Observation LastModified by Organization Detai ls LastModified Time None Recorded Concern Status LastModified by Organization Details LastModified Time None Recorded Advance Directives Directive None Recorded Payers Insurance Date Sequence Insurance Name Policy Number Policy Ayala Covered Member ID Ayala Member ID Guarantor Name 02/11/2025 [facility] [id number] Addie Garcia Notes Date Note Type Note Provider Name and Address Organization Details Recorded Time 04/21/2024 text/html ROS as noted in the HPI 1 month ago he coughed up some blood from his throat for [...] on last FOL in September 2020. ENEIDA CHERRY MD 100 [facility],[address], [address], [facility] - [facility] 04/21/2024 14:43:45 05/10/2024 text/html ROS as noted in the HPI 68-year-old male with GERD, asthma, and candidiasis of the mouth presents for revaluation of chronic hoarseness and sore throat. He was seen by Dr. Cherry for hemoptysis on 04/21/2020. At that time, [...] FL. Normal MBS. VELASQUEZ QUINTERO MD 100 [facility],[place] [address], [place], [address], [facility] - [facility] 05/11/2024 12:34:14 08/10/2024 text/html ROS as noted in the HPI He has a history of hemoptysis which [...] on last FOL in September 2020. ENEIDA CHERRY MD 100 [facility],[address], [address], [place] - [facility] 08/10/2024 15:05:10 02/08/2025 text/html ROS as noted in the HPI He has a history of hemoptysis which resolved. He has been evaluated by us for laryngoscopy and montez was noted and was treated twice for this with minimal benefit. He continues to have some throat pain and hoarseness. I referred for voice and he was seen at [facility] 01/24. Had an MBS 08/2023 which did not show aspiration. He does not smoke. He began dual PPI therapy after our last visit. He does not feel much improvement. 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 VC paralysis resolved on last FOL in September 2020. ENEIDA CHERRY MD [address] [facility],[address], [address], [place] - [facility] 02/08/2025 15:05:38
--- OUTSIDE RECORDS SUMMARY | 2025-04-04 17:10 | XMS_ITS | Patient Health Record ---
Author Organization [facility] Address [address] [facility] [address] [place] [address] Care Team Providers Care Vat House Supervisor Name Role Phone Wayne Jaimes MD Primary Care Provider JORGE L Burks Unavailable [phone] Allergies No Known Allergies Reason For Referral [...] primary osteoarthritis of the ankle and/or foot (156653220) Primary osteoarthritis, right ankle and foot (M19.071) Active confirmed Problem Localized, primary osteoarthritis of the ankle and/or foot (307991878) Primary osteoarthritis, left 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) Active confirmed Problem Plantarflexion deformity of right foot (finding) (7836187853247268) Equinus contracture of right ankle (M24.571) Active confirmed Problem Psoriasis (4246674) Psoriasis (L40.9) Active confirmed Problem Lumbar radiculopathy (488830324) Lumbar radiculopathy, right (M54.16) Active confirmed Problem Chondrocalcinosis (019211614) Calcium pyrophosphate deposition disease (CPPD) (M11.20) Active [...] N/A Encounters Encounter Location Date Provider Diagnosis [facility] [address] 04/10/2024 JORGE L REDDY Onychomycosis B35.1 ; Calcium pyrophosphate deposition disease (CPPD) M11.20 ; Psoriasis L40.9 ; Hallux limitus of left foot M20.5X2 ; Hallux limitus of right foot M20.5X1 ; Lumbar radiculopathy, right M54.16 ; Achilles tendinitis, right leg M76.61 and Achilles tendinitis, left leg M76.62 [facility] [address] 07/10/2024 JORGE L REDDY Onychomycosis B35.1 ; Calcium pyrophosphate deposition disease (CPPD) M11.20 ; Psoriasis L40.9 ; Hallux limitus of left foot M20.5X2 ; Hallux limitus of right foot M20.5X1 ; Lumbar radiculopathy, right M54.16 ; Achilles tendinitis, right leg M76.61 and Achilles tendinitis, left leg M76.62 [facility] [address] 10/11/2024 JORGE L REDDY Onychomycosis B35.1 ; Calcium pyrophosphate deposition disease (CPPD) M11.20 ; Psoriasis L40.9 ; Hallux limitus of left foot M20.5X2 ; Hallux limitus of right foot M20.5X1 ; Lumbar radiculopathy, right M54.16 ; Achilles tendinitis, right leg M76.61 and Achilles tendinitis, left leg M76.62 [facility] [address] 01/10/2025 JORGE L REDDY Onychomycosis B35.1 ; Calcium pyrophosphate deposition disease (CPPD) M11.20 ; Infection, Pseudomonas A49.8 ; Psoriasis L40.9 ; Hallux limitus of right foot M20.5X1 ; Hallux limitus of left foot M20.5X2 ; Lumbar radiculopathy, right M54.16 ; Pain in left foot M79.672 and Pain in right foot M79.671 [facility] [address] 01/10/2025 JORGE L REDDY [facility] [address] 01/15/2025 JORGE L REDDY Onychomycosis B35.1 [facility] [address] 01/24/2025 JORGE L REDDY Onychomycosis B35.1 [facility] [address] 01/24/2025 JORGE L REDDY [facility] [address] 02/01/2025 JORGE L REDDY [facility] [address] 02/22/2025 JORGE L REDDY [facility] [address] [facility] [address] [place] [address] 03/02/2025 JORGE L REDDY Assessments Encounter Date Diagnosis [...] currently being followed at the [facility] for CPPD. His notes were not available [...] currently being followed at the [facility] for CPPD. His notes were not available [...] L REDDY, 04/30/2025 02:45:00 PM, [address], [address], Insurance Providers Payer Name Payer Address Payer Phone Subscriber Number Group Number Insured Name Patient Relationship to Insured Coverage Start Date Coverage End Date [employer] care medicare community plan [address] [address] [place] [address] [id number] Laina Reynolds Self - patient is the [...]
--- OUTSIDE RECORDS SUMMARY | 2025-04-04 17:10 | XMS_ITS | Clinical Summary ---
Author Organization [address] [facility] Address [address] [place] [address] Phone Care Team Providers Care Hydro Excavation Operator Name Role Phone Shelbie Upton MD Primary Care Provider [phone] Allergies No known active allergies Medications bisacodyL [...] 026 Active diclofenac (VOLTAREN) 1 % topical gelIndications:[facility] oste[facility] right [facility],Primary [...] 1 (one) time each day. 60 each 11 01/05/20 25 026 Active montelukast (SINGULAIR) 10 mg tablet Take 1 tablet (10 mg total) by mouth at bedtime. 30 each 11 01/05/20 25 026 Active albuterol HFA (PROAIR HFA ; PROVENTIL HFA ; VENTOLIN HFA) 90 mcg/actuation inhaler Inhale 2 puffs by mouth every 6 (six) hours if needed for wheezing. 18 g 11 04/04/20 25 Active albuterol HFA (PROAIR HFA ; PROVENTIL HFA ; VENTOLIN HFA) 90 mcg/actuation inhaler Inhale 2 puffs by mouth every 6 (six) hours if needed for wheezing. 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 ([facility] V24) 12/17/2022 ST elevation (STEMI) myocard ial infarction ([facility] V24, [facility] V28) 12/11/2022 Benign prostatic hyperplasia without [...] Encounters Date Type Department Care Team Description 03/22/2025 3:12 PM EDT - 03/22/2025 11:59 PM EDT Hospital Encounter [facility] CT Scan [address] [place] [address] Chronic pharyngitis; Chronic sore throat Discharge Disposition: Home or Self Care 02/22/2025 7:14 PM EDT - 02/22/2025 11:59 PM EDT Hospital Encounter [facility] MRI [address] [place] [address] Radiculopathy, lumbar region; Spinal stenosis Discharge Disposition: Home or Self Care 01/30/2025 7:44 AM EDT Anesthesia Event [facility] Pain Management [address] [place] [address] Sylvain Corbett MD 01/30/2025 7:25 AM EDT - 01/30/2025 11:59 PM EDT Hospital Encounter [facility] [address] [place] [address] Vladislav Antunez DO Radiculopathy, lumbar region Discharge Disposition: Home or Self Care 01/30/2025 6:16 AM EDT - 01/30/2025 11:59 PM EDT Hospital Encounter [facility] Xray [address] [place] [phone] Pain Discharge Disposition: Home or Self Care 01/04/2025 2:00 PM EDT Office Visit Pulmonology - [place] [address] [facility] [address] [place] [phone] Jose Benjamin MD Moderate asthma, unspecified whether [...] fracture repair UPPER GASTROINTESTINAL ENDOSCOPY 01/13/2017 PROCEDURE: MA UPPER GI ENDOSCOPY PERFORMED; COMMENT: normal UPPER GASTROINTESTINAL ENDOSCOPY 03/08/12 PROCEDURE: MA UPPER GI ENDOSCOPY PERFORMED; COMMENT: normal OTHER [...] Dr. Bell UPPER GASTROINTESTINAL ENDOSCOPY 09/17/2020 PROCEDURE: [place] UPPER GI ENDOSCOPY PERFORMED; COMMENT: Normal findings. 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 ([facility] V24) 12/17/2022 DX:Coronary artery disease involving prairie band coronary artery of prairie band heart with angina pectoris ([facility]) Esophageal dysmotility DX:Esopha geal dysmotility Gastritis [...] Care Team (Late st Contact Info) Description 04/09/2025 2:30 PM EDT Office Visit Pulmonology - [address] [place] [phone] Jose Benjamin MD [address] [place] [phone] 05/09/2025 3:00 PM EDT Office Visit Orthopedics - [address] [phone] Amadeo Sofia PA [address] [place] [address] 11/14/2025 3:00 PM EDT Office Visit Nephrology - [address] [phone] Eduard Mccormick MD [address] [place] [address] Health Maintenance Due Date Last Done Comments Medicare Annual Wellness Visit 06/18/2022 Social Influencers of Health Screening 06/18/2022 Colorectal Cancer Screening: Colonoscopy 02/15/2024 02/14/2019 Depression Screening 07/12/2024 COVID-19 Vaccine (8 - Pfizer risk season) 2025 03/08/2024, 04/13/2023, 04/01/2022, Additional history exists Influenza Vaccine (#1) 2025 , 04/06/2023, 04/20/2022, Additional history exists Falls Risk Assessment 01/30/2026 01/30/2025, 023 Hypertension/CHF/CAD Annual BMP Blood Test 03/22/2026 03/22/2025, 11/14/2024, 03/06/2024, Additional history exists Cholesterol Screening (Lipid Panel) 03/06/2029 03/06/2024, 08/17/2023 [...] Procedure Name Priority Date/Time Associated Diagnosis Comments CT NECK SOFT TISSUE W CONTRAST Routine 03/22/2025 3:34 PM EDT Chronic pharyngitis Chronic sore throat CREATININE, SERUM STAT 03/22/2025 1:3 4 PM EDT Dystonic dysphonia BUN STAT 03/22/2025 1:34 PM EDT Dystonic dysphonia MR LUMBAR SPINE WO CONTRAST Routine 02/22/2025 8:07 PM EDT Radiculopathy, lumbar region Spinal stenosis from Last 3 Months Results * CT Neck Soft Tissue w Contrast (03/22/2025 3:34 PM EDT) Anatomical Region Laterality Modality Head and Neck Computed Tomogra phy 03/23/2025 4:10 PM EDT Impressions 03/23/2025 4:34 PM EDT Left hemithyroidectomy. No acute findings. -------- FINAL REPORT -------- Dictated By: Pancho Wood Dictated Date: 03/23/2025 16:10 ET Assigned Physician: Pancho Wood Reviewed and Electronically Signed By: Pancho Wood Signed Date: 03/23/2025 16:34 ET Workstation ID: [id number] Transcribed By: Self Edit Transcribed Date: 03/23/2025 16:10 ET Narrative 03/23/2025 4:34 PM EDT PROCEDURE: Contrast enhanced CT of the neck. [...] the cervical spine. No suspicious bony lesion. Procedure Note Pancho Wood MD - 03/23/2025 PROCEDURE: Contrast enhanced CT of the neck. HISTORY: CHRONIC PHARYNGITIS ,CHRONIC SORE THROAT. TECHNIQUE: CT of the neck with coronal and sagittal reformats. IV CONTRAST DOSE: 90 mL ISOVUE-370. Dose length product: 317 mGy-cm. COMPARISON: FINDINGS: The visualized portions of the brain are normal. There is mild rightsided plagiocephaly. Lens implants. Orbits otherwise unremarkable. There is a small mucous retention cyst along the floor the right maxillaryantrum.. The mastoids and middle ear spaces are clear. The skull baseforamina are normal. The parotid and submandibular glands are normal. Lefthemithyroidectomy. Motion limits evaluation at the level of the glottis. No visibleabnormality of the mucosal surfaces of the neck. No cervical lymphadenopathy. No mass or fluid collection. The major arteries and veins of the neck demonstrate normal opacificationfollowing contrast administration. The visualized portions of the mediastinum and lung apices are normal. Minimal degenerative changes of the cervical spine. No suspicious bonylesion. IMPRESSION: Left hemithyroidectomy. No acute findings. -------- FINAL REPORT -------- Dictated By: Pancho Wood Dictated Date: 03/23/2025 16:10 ET Assigned Physician: Pancho Wood Reviewed and Electronically Signed By: Pancho Wood Signed Date: 03/23/2025 16:34 ET Workstation ID: [id number] Transcribed By: Self Edit Transcribed Date: 03/23/2025 16:10 ET Vipin Cherry MD IMG CT PROCEDURES Final R esult * Creatinine (03/22/2025 1:34 PM EDT) [facility] Creatinine 1.01 0.70 - 1.30 mg/dL LAB CHEMISTRY METHOD 03/22/2025 2:34 PM EDT [facility] eGFR 80 >=60 mL/min/1. 73m2 LAB CHEMISTRY METHOD 03/22/2025 2:34 PM EDT [facility] Comment:Calculation based on the Chronic Kidney Disease Epidemiology Collaboration (CKD-EPI) equation refit without adjustment for race. Blood Venous blood specimen / Unknown Venipuncture / Unknown 03/22/2025 1:34 PM EDT 03/22/2025 1:58 PM EDT Vipin Cherry MD LAB BLOOD ORDERABLES Maggie l Result Performing Organization Address City/[facility]/ZIP Co de Phone Number [facility] [address] [place] [address], [place] [phone] * BUN (03/22/2025 1:34 PM EDT) [facility] BUN 14 5 - 25 mg/dL LAB CHEMISTRY METHOD 03/22/2025 2:34 PM EDT [facility] Blood Venous blood specimen / Unknown Venipuncture / Unknown 03/22/2025 1:34 PM EDT 03/22/2025 1:58 PM EDT Vipin Cherry MD LAB BLOOD ORDERABLES Maggie l Result [facility] [address] [place] [address], [place] [phone] * MR Lumbar Spine wo Contrast (02/22/2025 [...] Signed Date: 02/23/2025 03:53 ET Workstation ID: [id number] Transcribed By: Self Edit Transcribed Date: 02/23/2025 [...] Signed Date: 02/23/2025 03:53 ET Workstation ID: [id number] Transcribed By: Self Edit Transcribed Date: 02/23/2025 03:48 ET Vladislav Antunez DO IMG MRI PROCEDURES Final Result from Last 3 Months Insurance MEDICAID - [place] [address] Care Teams Hydro Excavation Operator Relationship Specialty Start Date End Date Shelbie Upton MD [address] [place] [address] [phone] PCP - General Internal Medicine 10/31/24
--- OUTSIDE RECORDS SUMMARY | 2025-04-04 17:10 | XMS_ITS | Encounter Summary ---
Author Organization [facility] Address [address] [address] Phone Care Team Providers Care Roundhouse Supervisor Name Role Phone Shelbie Upton MD Primary Care Provider [phone] Encounter Details Date Type Department Care Team (Late Contact Info) Description 03/29/2025 Office Communication [facility] [address] [address] Jaelyn Faith [address] [place] [phone] Social History Tobacco Use Types Packs/Day Years [...] encounter Miscellaneous Notes * Telephone Encounter - Jaelyn Faith - 03/29/2025 2:45 PM EDT PT hasn't been seen since 01/2024. He wants to do labs before his Apr appt. Can you put a lab in [facility] and fax to [facility]. [place]-or mail to him. He'd like a call so that he knows when its in Thanks documented in this encounter Plan of Treatment Upcoming Encounters Date Type Department Care Team (Late Contact Info) Description 04/23/2025 3:45 PM EDT Office Visit [facility] [phone] [address] Eduard Mccormick MD [address] [address] documented as of this encounter Visit Diagnoses Not on filedocumented in this encounter Care Teams Roundhouse Supervisor Relationship Specialty Start Date End Date Shelbie Upton MD [address] [place] [address], [address] [place] [address] PCP - General Internal Medicine 02/04/24 documented as of this encounter
--- OUTSIDE RECORDS SUMMARY | 2025-04-04 17:10 | XMS_ITS | Encounter Summary ---
Author Organization [facility] Address [address] [place] [address] 7 [place] [address] Care Team Providers Care Tactical/Mobile Watch Officer Name Role Phone Unavailable Primary Care Provider Unavailabl e Encounter Details Date Type Department Care Team (Latest Contact Info) Description 01/23/2022 Abstract [facility] CONVERSIONS Dental, Provider, DDS Social [...]
--- OUTSIDE RECORDS SUMMARY | 2025-04-04 17:10 | XMS_ITS | Clinical Summary ---
Author Organization [employer] Address [address] [place] [address] [address] [place] [address] Care Team Providers Care Sumo Wrestler Name Role Phone Unavailable Primary Care Provider [...] COVID-19 Vaccine ( - 2023-2 5 season) 2025 Influenza Vaccine (#1) 2025 RSV Patients and [...]
--- OUTSIDE RECORDS SUMMARY | 2025-04-04 17:10 | XMS_ITS | Encounter Summary ---
Author Organization [facility] Address [address] [place] [address] Phone Care Team Providers Care Microgrinder Operator Name Role Phone Vitor Mclean MD Primary Care Provider [phone] Encounter Details Date Type Department Care Team (Late st Contact Info) Description 12/15/2019 Procedure Pass OR Admitting Dept - Virtual Department [address] [place] [address] Social History Tobacco Use Types Packs/Day Years [...] on filedocumented in this encounter Care Teams Microgrinder Operator Relationship Specialty Start Date End Date Vitor Mclean MD [address] [facility] [address] [place] [address] PCP - General Pulmonary Disease 12/14/19 documented as of this encounter Additional Source Comments The information contained in this document represents components of the legal health record. It is not the complete legal health record.[facility]
--- OUTSIDE RECORDS SUMMARY | 2025-04-04 17:10 | XMS_ITS | Clinical Summary ---
Author Organization [facility] Address [address] [facility] [address] [place] [address] Phone Care Team Providers Care Pump Rebuilder Name Role Phone Vitor Mclean MD Primary Care Provider [phone] Allergies No known active allergies Medications diclofenac [...] this topic Medical Devices Implanted Type Area Latex Spooler Device Identifier Shelf Expiration Date Model / Serial / Lot Composite Augment 1.0 Cc Injectable Radiesse Vocal Cord Prolaryn Gel Nonpyrogenic - [id number] Implanted:Qty: 1 on 12/15/2019 by Vipin Cherry MD at [facility] Left: Vocal Cord [employer] 06/29/2021 [id number] / [id number] / [id number] Insurance DUAL MEDICARE REPLACEMENT DUAL MEDICARE REPLACEMENT DUAL MEDICARE REPLACEMENT DUAL MEDICARE REPLACEMENT DUAL MEDICARE REPLACEMENT DUAL MEDICARE REPLACEMENT Care Teams Pump Rebuilder Relationship Specialty Start Date End Date Vitor Mclean MD [address] [place] [address] PCP - General Pulmonary Disease 12/14/19 Additional Source Comments The information contained in this document represents components of the legal health record. It is not the complete legal health record.[facility]
--- OUTSIDE RECORDS SUMMARY | 2025-04-04 17:10 | XMS_ITS | Encounter Summary ---
Author Organization [facility] Address [address] [place] [address] Phone Care Team Providers Care It Technician Name Role Phone Vitor Mclean MD Primary Care Provider [phone] Encounter Details Date Type Department Care Team (Latest Contact Info) Description 01/31/2024 Transcribe Orders Virtual Department [address] [place] [address] Kevin Oliva PA [address] [place] [address] [place] [address] Gastroesophageal reflux disease, unspecified whether esophagitis present [...] present documented in this encounter Care Teams It Technician Relationship Specialty Start Date End Date Vitor Mclean MD [address] [place] [address] PCP - General Pulmonary Disease 12/14/19 documented as of this encounter Additional Source Comments The information contained in this document represents components of the legal health record. It is not the complete legal health record.[facility]
--- OUTSIDE RECORDS SUMMARY | 2025-04-04 17:10 | XMS_ITS | Clinical Summary ---
Author Organization [facility] Address [address] [place] [address] Care Team Providers Care Sql Database Programmer Name Role Phone Brett Velásquez MD [...] age to complete this topic Care Teams Sql Database Programmer Relationship Specialty Start Date End Date Brett Velásquez MD PCP - General Internal Medicine 10/20/17
--- OUTSIDE RECORDS SUMMARY | 2025-04-04 17:10 | XMS_ITS | Encounter Summary ---
Author Organization [facility] Address [address] [place] [address] 7 [place] [address] Care Team Providers Care Environmental Educator Name Role Phone Unavailable Primary Care Provider Unavailabl e Encounter Details Date Type Department Care Team (Latest Contact Info) Description 01/15/2021 Abstract [facility] CONVERSIONS Dental, Provider, DDS Social [...]
--- NOTE | 2025-04-04 19:28 | PC.NURSE ---
spoke with MD Canela. plan to assess effect of dilaudid on CP, presently a 01/18 tightness, no SOB. MD aware. med unverified at this time
[2025-04-04] MEDS: iohexoL 350 MG/ML 100 ML INFUS..BTL IV (19:40)
--- NOTE | 2025-04-04 19:42 | PHA.MEDREC ---
Addendum entered by Leticia Caicedo RPh 04/04/25 20:03: Reviewed by [facility]. Pt states his list is up to date but many rx's have not been filled recently. Gabapentin was removed as it has not been filled since Aug 2023. Original Note: Pharmacy Consult ? Medication Reconciliation Pharmacy has completed the medication reconciliation. Spoke with pt and he has a list on hand he utilized to confirm med rec, pt has some outdated medications pt confirmed he fills at [facility].
[2025-04-04] MEDS: Lactated Ringers 1,000 ML 100 ML IVCONT (19:49)
[2025-04-04] MEDS: Sucralfate Oral Suspension 1 GM/10 ML ORAL.SUSP PO (20:28)
--- NOTE | 2025-04-04 22:36 | PM.IMHP ---
History of Present Illness Date of Service: 04/04/25 Chief Complaint: chest pain 69-year-old male with a past medical history of HTN, HLD, CAD, stent placement in; peptic ulcer disease, GERD, pseudoaneurysm, cricopharyngeal dysphagia, esophageal stricture, osteoarthritis, erosive gastritis, Soto's esophagus; presented to the hospital today with a chief complaint of chest pain. Patient reports that after the stent placement in September he always had mild chest pain but since yesterday and today he has been having constant type pain increasing in intensity; severe in nature; no associated nausea vomiting or diaphoresis. Reports his pain got improved after he got Dilaudid in the ER. Denies any fevers and chills. Denies any recent travel or sick contacts. Denies any urinary symptoms. Review of all other systems is negative except mentioned above ER course: Per ER team, patient's EKG was nonischemic; patient complained of chest pain which is not improving; given nitroglycerin and aspirin but continued to have the pain. Discussed with cardiology who mentioned no acute intervention. Patient troponins were negative. Patient pain improved after he got Dilaudid. [facility] Medical History Acute gouty arthritis Perianal dermatitis SOB (shortness of breath) on exertion Finger laceration with complication Encounter to establish care Trigger finger Thyroid nodule Family History Sister Arthritis Mother Heart disease Lung cancer Father Hypertension Sister Thyroid cancer Surgical History Stented coronary artery S/P cardiac cath H/O colonoscopy History of esophagogastroduodenoscopy (EGD) Hx of cataract extraction History of thyroid surgery History of prostate surgery Social History Household Members: Spouse Housing: Apartment Are you a primary rn home care to a significant other at home: No Do you presently have visiting nurse or other home services: No Alcohol intake: never Patient Tobacco Use Status: Never used Tobacco Smoked in Last 30 Days: No e-Cigarette/Vaping Use: Never Used Second Hand Smoke Exposure: No Use of substances other than those prescribed or required for medical reasons: No Advance Directives: No Advance Directives Information Provided: Yes Do you have a plan to hurt others: No Plan service: No Current occupational status: employed 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 [employer] Current occupational exposures/hazards: No Cognitive needs: No Hearing needs: No Vision needs: No Meds Allergies Allergy/AdvReac Type Severity Reaction Status Date / Time No Known Allergies Allergy Verified 04/04/25 13:59 Active Medications: Current Medications Acetaminophen (Acetaminophen 325 Mg Tablet) 650 mg PO Q6H PRN PRN Reason: Pain, Mild 1-3,fever,headache Albuterol/Ipratropium (Albuterol/Iprat 2.5/0.5mg 3 Ml Ampul.Neb) 3 ml INHALE Q4H PRN PRN Reason: Shortness of Breath/Wheezing Aspirin (Aspirin Enteric Coated 81 Mg Tablet.Dr) 81 mg PO DAILY [facility] Atorvastatin Calcium (Atorvastatin Calcium 40 Mg Tablet) 40 mg PO DAILY [facility] Calcium Carbonate (Calcium Carbonate 750 Mg Tab.Chew) 750 mg PO Q4H PRN PRN Reason: Heartburn Ezetimibe (Ezetimibe 10 Mg Tablet) 10 mg PO DAILY [facility] Enoxaparin Sodium (Enoxaparin Sodium 40 Mg/0.4 Ml Syringe) 40 mg SUBCUT Q24H [facility] Last Admin: 04/04/25 19:58 Dose: 40 mg Hydromorphone HCl (Hydromorphone Hcl 0.5 Mg/0.5 Ml Syringe) 0.5 mg IVPUSH Q4H PRN; Protocol PRN Reason: Pain, Severe (Pain Scale 7-10) Last Admin: 04/04/25 19:47 Dose: 0.5 mg Lactated Ringer's (Lr) 1,000 mls @ 100 mls/hr IVCONT .Q10H [facility] Last Admin: 04/04/25 19:49 Dose: 100 mls/hr Magnesium Hydroxide (Milk Of Magnesia 30 Ml Oral.Susp) 30 ml PO DAILY PRN PRN Reason: Constipation Melatonin (Melatonin 3 Mg Tablet) 6 mg PO BEDTIME PRN PRN Reason: Insomnia Metoprolol Succinate (Metoprolol Succinate Er 25 Mg Tab.Er.24h) 25 mg PO DAILY [facility]; Protocol Mirabegron (Mirabegron 50 Mg Tab.Er.24h) 50 mg PO DAILY [facility] Montelukast Sodium (Montelukast Sodium 10 Mg Tablet) 10 mg PO BEDTIME [facility] Last Admin: 04/04/25 21:37 Dose: 10 mg Nitroglycerin (Nitroglycerin 0.4 Mg Tab.Subl) 0.4 mg SUBLINGUAL Q5MX3 PRN PRN Reason: Chest Pain Pantoprazole Sodium (Pantoprazole Sodium 40 Mg/10 Ml Vial) 40 mg IVPUSH DAILY@0630 [facility] Last Admin: 04/04/25 19:47 Dose: 40 mg Sodium Chloride (0.9 % Sodium Chloride Flush 3 Ml Syringe) 3 ml IVFLUSH QSHIFT [facility] Sucralfate (Sucralfate Oral Suspension 1 Gm/10 Ml Oral.Susp) 1 gm PO QIDACHS [facility] Last Admin: 04/04/25 20:28 Dose: 1 gm Ticagrelor (Ticagrelor 90 Mg Tablet) 90 mg PO BID [facility] Last Admin: 04/04/25 21:37 Dose: 90 mg Home Medications ?Medication ?Instructions ?Recorded ?Confirmed ?Last Taken ?Type losartan 25 mg tablet 25 mg PO DAILY 04/14/21 04/04/25 04/04/25 History efinaconazole 10 % topical 1 appl topical DAILY PRN Fungal 02/08/24 04/04/25 Unknown History solution with applicator (Jublia) Infection lidocaine-prilocaine 2.5 %-2.5 % 1 g topical BID PRN Pain 02/08/24 04/04/25 Unknown History topical cream montelukast 10 mg tablet 10 mg PO BEDTIME 04/17/24 04/04/25 04/03/25 History famotidine 20 mg tablet 20 mg PO BID PRN GERD 09/14/24 04/04/25 Unknown History mirabegron 50 mg tablet,extended 50 mg PO DAILY 11/23/24 04/04/25 04/04/25 History release 24 hr (Myrbetriq) diclofenac sodium 1 % topical gel 1 g topical BID PRN Pain 04/04/25 04/04/25 Unknown History fluticasone furoate 100 1 ea inhalation DAILY 04/04/25 04/04/25 04/04/25 History mcg-vilanterol 25 mcg/dose inhalation powder (Breo Ellipta) gentamicin 0.1 % topical ointment 1 appl topical DAILY PRN Fungal 04/04/25 04/04/25 Unknown History Infection lidocaine 5 % topical patch 1 - 3 patch topical DAILY PRN Pain 04/04/25 04/04/25 Unknown History linaclotide 145 mcg capsule 145 mcg PO DAILY 04/04/25 04/04/25 04/04/25 History (Linzess) magnesium hydroxide 600 mg 600 mg PO BID 04/04/25 04/04/25 04/04/25 History chewable tablet rabeprazole 20 mg tablet,delayed 20 mg PO DAILY PRN GERD 04/04/25 04/04/25 Unknown History release ticagrelor 90 mg tablet (Brilinta) 90 mg PO BID 04/04/25 04/04/25 04/04/25 History tramadol 50 mg tablet 50 mg PO QID PRN Pain 04/04/25 04/04/25 Unknown History Physical Exam Vital Signs and Narrative: Vital Signs: Last Vital Signs Temp 98 F 04/04/25 21:38 Pulse 52 04/04/25 22:17 Resp 16 04/04/25 21:38 BP 100/60 04/04/25 22:17 Pulse Ox 95 04/04/25 21:38 O2 Del Method Room Air 04/04/25 21:38 BMI result Body Mass Index 23.1 Gen: Appears be in no acute distress HEENT: NCAT, Moist mucosa. Pulmonary: Vesicular breath sounds, fair air entry CVS: Normal S1-S2 Abdomen: BS+, Soft, Nontender Extremities: Warm well perfused Neuro: Alert and awake. Results Labs 04/04/25 14:41 04/04/25 14:41 Labs: Laboratory Results - last 24 hr 04/04/25 04/04/25 04/04/25 14:41 16:02 16:45 MCV 86.6 MCH 30.1 MCHC 34.7 RDW 12.2 Plt Count 188 MPV 8.8 L Immature Gran % (Auto) 0.2 Neut % (Auto) 63.9 Lymph % (Auto) 26.2 [place] % (Auto) 8.9 Eos % (Auto) 0.6 Baso % (Auto) 0.2 Lymph # (Auto) 1.3 [place] # (Auto) 0.4 Eos # (Auto) 0.0 Baso # (Auto) 0.0 Abs Immat Gran (auto) 0.01 Absolute Neuts (auto) 3.1 Absolute Nucleated RBC 0.000 Nucleated RBC % (auto) 0.0 PT 10.6 L INR 0.9 D-Dimer High Sensitivty < 150 Anion Gap 11 L Estim Creat Clear Calc 64.3 Estimated GFR > 60 Random Glucose 93 Calcium 9.9 Magnesium 2.2 Total Bilirubin 0.7 AST 29 ALT 35 Alkaline Phosphatase 61 Troponin I High Sens 3.2 3.7 NT-Pro-B Natriuret Pep 172.8 Total Protein 7.0 Albumin 4.3 Imaging Radiologist's Impressions: Impressions Chest X-Ray 04/04/25 14:00 IMPRESSION: No active pulmonary disease. Electronically signed by: Stuart Quinones MD 04/04/2025 02:08 PM EDT RP Assessment and Plan (1) Chest pain: Qualifiers: Chest pain type: unspecified Qualified Code(s): R07.9 - Chest pain, unspecified Status: Acute Plan 69-year-old male with a past medical history of HTN, HLD, CAD, stent placement in; peptic ulcer disease, GERD, pseudoaneurysm, cricopharyngeal dysphagia, esophageal stricture, osteoarthritis, erosive gastritis, Soto's esophagus; presented to the hospital today with a chief complaint of chest pain. Chest pain: Atypical in nature Patient had known history of CAD with stent placement in September. On aspirin Brilinta-will continue Also had a history of GERD/Soto's esophagus/esophageal stricture-will give IV Pepcid. EKG nonischemic Troponins negative CT chest showed no evidence of PE Cardiology was notified-pain control Monitor on telemetry Continue metoprolol with holding parameters as patient had a brief episode of bradycardia after he received Dilaudid in the ER. HTN/HLD: Continue home medications. Dysphagia: Nursing swallow screen. BRIMMER BLOCKER eval in a.m.. Soft diet. DVT prophylaxis: Lovenox Code status: Full code Quality Stroke Does the patient have a stroke diagnosis?: No VTE Prior VTE?: No VTE Risk Level:: Medical - moderate - high VTE Device Contraindication: Treatment Not Indicated VTE Drug Contraindication: N/A - Med Ordered
[2025-04-05] VITALS (7 sets, daily range): BP systolic 100–150; BP diastolic 58–75; PULSE 49–70; RESP 16–18; TEMP 36.3–36.8; O2SAT 93–95
[2025-04-05] MEDS: Lactated Ringers 1,000 ML 100 ML IVCONT ×3 (05:27→23:27)
[2025-04-05 06:14] LABS: MANUAL DIFF FLAG NO
[2025-04-05 06:21] LABS: Hematocrit 36.3 % (42.0-52.0); Hemoglobin 13.0 g/dl (14.0-18.0); Imm Gran Abs Auto 0.01 X10*3/uL (0.00-0.03); Imm Gran Pct Auto 0.2 % (0.0-0.4); Lymphocytes Absolute Auto 1.4 X10*3/uL (1.2-4.9); Mean Corpuscular HGB Conc 35.8 g/dl (31.0-36.0); Mean Corpuscular Hemoglobin 30.7 pg (27.0-33.0); Mean Corpuscular Volume 85.8 fL (80.0-98.0); NRBC Abs Auto 0.000 X10*3/uL (0.0-0.012); NRBC Pct Auto 0.0 /100WBC (0.0-0.2); Platelet Count 168 X10*3/uL (160-400); Red Blood Count 4.23 X10*6/uL (4.60-5.80); White Blood Count 6.5 X10*3/uL (4.8-10.8)
--- NOTE | 2025-04-05 06:26 | PC.NURSE ---
0600. Pt is alert oriented x 4 very pleasant gentleman. Pt reports he is having constant chest pain rated 6 out of 10 numerical pain scale. Pain is directly left of sternum on heart and does not radiated. Described as squeezing. Patient sleeping in naps and when assessing chest pain, patient moves his left arm as he says that is when he feels the chest pain and not a rest. Pt also notes the chest pain reproducible when applying finger pressure on the chest area. Patient heart rhythm is sinus jerilyn 40's-50 . Pt LS CTA and RR even and nonlabored. Dr. Canela updated regarding assessment and heart rhythm and at this point would like the patient to continue to be monitored and hold on giving pain medication at this time secondary to HR.
[2025-04-05 06:40] LABS: Alanine Aminotransferase 27 U/L (0-40); Albumin Level 3.5 g/dL (3.5-5.0); Alkaline Phosphatase 52 U/L (39-117); Anion Gap 11 (12-20); Aspartate Amino Transferase 24 U/L (5-37); Blood Urea Nitrogen 15 mg/dL (9-16); Calcium 8.7 mg/dL (8.4-10.2); Carbon Dioxide 25 mmol/L (22-29); Chloride 110 mmol/L (96-108); Creatinine Clr Calc Pharmacy 65.7; Estimated Glomerular Filt Rate > 60; Potassium 3.9 mmol/L (3.3-5.1); Sodium 142 mmol/L (135-145); Total Protein 5.8 g/dL (6.5-8.0)
[2025-04-05] MEDS: Sucralfate Oral Suspension 1 GM/10 ML ORAL.SUSP PO ×4 (08:10→20:56)
[2025-04-05] MEDS: Mirabegron 50 MG TAB.ER.24H PO (08:11)
[2025-04-05] MEDS: Aspirin Enteric Coated 81 MG TABLET.DR PO (08:11)
--- NOTE | 2025-04-05 10:21 | PC.NURSE ---
Pt hr 55, morning dose of metoprolol held. provider made aware.
--- NOTE | 2025-04-05 10:58 | MHC.CM.PN ---
ANGELINA 04/05/25, ERM REVIEWED, PT ADMITTED TO OBS W/CHEST PAIN, CM MET W/PT WHO IS A&OX4 AND DENIES NEED FOR CRUDE OIL TREATER, PT REPORTS HE LIVES W/ DON, USES A CANE D/T BACK/KNEE PAIN/ARTHRITIS AND HAS A LIFE ALERT, HAS NO HOME SERVICES AND DENIES NEED, PT'S GOAL FOR DC IS HOME SELF CARE. PT VERIFIES PCP IS [facility] AND HCP IS AND SOMEONE FROM [facility], PT REPORTS HE GOES TO A [facility] AND WOULD DECLINE BLOOD TRANSFUSIONS.
--- NOTE | 2025-04-05 11:32 | MHC.SL.SWA ---
Speech Pathologist Impression: Pharyngeal/esophageal dysphagia Risk of Aspiration Due to: Dysphasia Diet Status: Liquid Consistency and Strategies for Safe Swallow: Liquid Intake Recommendation: Thin Liquid Intake Strategies: Solid Food Consistency: Dietary Recommendations: Regular Additional Modifications to Solid Foods: Oral Medication Intake: Crushed with Puree Please contact the pharmacy regarding appropriate crushable or liquid drug formulations that are available whenever modified delivery is recommended. Compensatory Strategies and Precautions to be Taken for Safe Swallow: GERD precautions: Patient to remain upright 30 minutes after every meal. Patient uses strategies of small bites/sips, chew thoroughly, alternate liquids and solids. Supervision While Eating and Drinking for Safe Swallow: None Needed Foods to Avoid: Spicy/acidic foods, too large pieces of food. Swallowing Recommended Treatments: Recommendation for Speech: Discharged with Instructions for Home Use Comment: Patient has history of pharyngeal esophageal dysphagia, presented with mild signs of this condition today on bedside assessment (mild globus sensation on solid food given). Patient reports strategies used to manage his needs, is well informed about his condition. Recommend patient continue on REGULAR diet with THIN liquids, larger pills crushed in puree, other pills whole in puree. Patient is on least restrictive diet, manages his condition with appropriate strategies. No further speech/swallow service indicated as a part of this inpatient stay will discharge from speech. MD/RD notified by secure text, RN in person. Frequency/Duration: Date Range for Service Req: Timeline to reassess: Roll Cutting Operator Clinican/Clinical Fellow: No Supervisory Statement: I have reviewed and agree with the student/clinical fellow's documentation: N/A Speech Language Pathologist: Shelbie Zhou M.A., CCC-SALES ENGAGEMENT MANAGER
--- NOTE | 2025-04-05 13:15 | CA_ITS ---
Acquisition Time: 2025-04-05 13:34:05 Total Exercise Time: 00:10:00 Test Indications: CP Medications: SEE H&P Protocol: ANASTASIIA Max HR: 114 BPM 76% of Pred: 149 BPM Max BP: 164/78 mmHG Max Work Load: 10.6 METS Exercise stress test with exercise 10 mins of Anastasiia Protocol at reduced speed of 3.4mph, achieving 77% MPHR, with reports of 6/10 left sided squeezing chest pain at baseline that is unchanged with exercise, with isolated PACs, with normotenisve repsonse to exercise. With ST depression inferiorly and in leads V4-V6, meeting criteria for ischemia. In recovery, pt's chest pain remained the same. ST sgement improved to baseline. Echo images obtained by tech at rest and post peak exercise. Definity contrast utilized. Test reviewed with Dr. Ortega. Referred By: Arnaldo Rodgers Electronically Signed By: Arnaldo Rodgers
--- NOTE | 2025-04-05 13:32 | PM.CNCAR ---
History of Present Illness History of Present Illness Date of Service: 04/05/25 Requesting physician: Ana Maria Bethea Chief complaint: Chest pain Narrative: 69 year gentleman with background history of LAD and RCA PCI presenting with chest pain. He was being followed with Dr. Pinto and plan was to do a stress Mibi on him because he was complaining of atypical chest pains. He said yesterday he started feeling sudden onset pain on the left side of the chest. He came to the emergency department where nitroglycerin was given to him and pain improved. His were negative. EKG did not show any dynamic changes. Currently pain-free. Has been compliant with medications. Blood pressure well controlled. He does have esophageal issues with Soto's esophagus as well as dysphagia for which there was planned to do EGD and dilatation. He has not had that done. [facility] Past Medical History Medical History Acute gouty arthritis Perianal dermatitis SOB (shortness of breath) on exertion Finger laceration with complication Encounter to establish care Trigger finger Thyroid nodule Family History Family History Sister Arthritis Mother Heart disease Lung cancer Father Hypertension Sister Thyroid cancer Surgical History Surgical History Stented coronary artery S/P cardiac cath H/O colonoscopy History of esophagogastroduodenoscopy (EGD) Hx of cataract extraction History of thyroid surgery History of prostate surgery Social History Social History Household Members: Spouse Housing: Apartment Are you a primary vp care management to a significant other at home: No Do you presently have visiting nurse or other home services: No Alcohol intake: never Patient Tobacco Use Status: Never used Tobacco Smoked in Last 30 Days: No e-Cigarette/Vaping Use: Never Used Second Hand Smoke Exposure: No Use of substances other than those prescribed or required for medical reasons: No Currently Displaying Signs/Symptoms of Drug Intoxication Withdrawal: No Have you been hit, kicked, punched, or otherwise hurt by someone within the past year? 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 Current occupational exposures/hazards: No Cognitive needs: No Hearing needs: No Vision needs: No Meds Allergies Allergy/AdvReac Type Severity Reaction Status Date / Time No Known Allergies Allergy Verified 04/04/25 13:59 Active Medications: Current Medications Acetaminophen (Acetaminophen 325 Mg Tablet) 650 mg PO Q6H PRN PRN Reason: Pain, Mild 1-3,fever,headache Albuterol/Ipratropium (Albuterol/Iprat 2.5/0.5mg 3 Ml Ampul.Neb) 3 ml INHALE Q4H PRN PRN Reason: Shortness of Breath/Wheezing Aspirin (Aspirin Enteric Coated 81 Mg Tablet.Dr) 81 mg PO DAILY [facility] Last Admin: 04/05/25 08:11 Dose: 81 mg Atorvastatin Calcium (Atorvastatin Calcium 40 Mg Tablet) 40 mg PO DAILY [facility] Last Admin: 04/05/25 08:11 Dose: 40 mg Calcium Carbonate (Calcium Carbonate 750 Mg Tab.Chew) 750 mg PO Q4H PRN PRN Reason: Heartburn Ezetimibe (Ezetimibe 10 Mg Tablet) 10 mg PO DAILY [facility] Last Admin: 04/05/25 08:10 Dose: 10 mg Enoxaparin Sodium (Enoxaparin Sodium 40 Mg/0.4 Ml Syringe) 40 mg SUBCUT Q24H [facility] Last Admin: 04/04/25 19:58 Dose: 40 mg Hydromorphone HCl (Hydromorphone Hcl 0.5 Mg/0.5 Ml Syringe) 0.5 mg IVPUSH Q4H PRN; Protocol PRN Reason: Pain, Severe (Pain Scale 7-10) Last Admin: 04/04/25 19:47 Dose: 0.5 mg Lactated Ringer's (Lr) 1,000 mls @ 100 mls/hr IVCONT .Q10H [facility] Last Admin: 04/05/25 05:27 Dose: 100 mls/hr Magnesium Hydroxide (Milk Of Magnesia 30 Ml Oral.Susp) 30 ml PO DAILY PRN PRN Reason: Constipation Melatonin (Melatonin 3 Mg Tablet) 6 mg PO BEDTIME PRN PRN Reason: Insomnia Metoprolol Succinate (Metoprolol Succinate Er 25 Mg Tab.Er.24h) 25 mg PO DAILY [facility]; Protocol Last Admin: 04/05/25 08:13 Dose: Not Given Mirabegron (Mirabegron 50 Mg Tab.Er.24h) 50 mg PO DAILY [facility] Last Admin: 04/05/25 08:11 Dose: 50 mg Montelukast Sodium (Montelukast Sodium 10 Mg Tablet) 10 mg PO BEDTIME [facility] Last Admin: 04/04/25 21:37 Dose: 10 mg Nitroglycerin (Nitroglycerin 0.4 Mg Tab.Subl) 0.4 mg SUBLINGUAL Q5MX3 PRN PRN Reason: Chest Pain Pantoprazole Sodium (Pantoprazole Sodium 40 Mg/10 Ml Vial) 40 mg IVPUSH DAILY@0630 [facility] Last Admin: 04/05/25 05:27 Dose: 40 mg Sodium Chloride (0.9 % Sodium Chloride Flush 3 Ml Syringe) 3 ml IVFLUSH QSHIFT [facility] Last Admin: 04/05/25 08:12 Dose: Not Given Sucralfate (Sucralfate Oral Suspension 1 Gm/10 Ml Oral.Susp) 1 gm PO QIDACHS [facility] Last Admin: 04/05/25 11:41 Dose: 1 gm Ticagrelor (Ticagrelor 90 Mg Tablet) 90 mg PO BID [facility] Last Admin: 04/05/25 08:10 Dose: 90 mg Home Medications ?Medication ?Instructions ?Recorded ?Confirmed ?Last Taken ?Type losartan 25 mg tablet 25 mg PO DAILY 04/14/21 04/04/25 04/04/25 History efinaconazole 10 % topical 1 appl topical DAILY PRN Fungal 02/08/24 04/04/25 Unknown History solution with applicator (Jublia) Infection lidocaine-prilocaine 2.5 %-2.5 % 1 g topical BID PRN Pain 02/08/24 04/04/25 Unknown History topical cream montelukast 10 mg tablet 10 mg PO BEDTIME 04/17/24 04/04/25 04/03/25 History famotidine 20 mg tablet 20 mg PO BID PRN GERD 09/14/24 04/04/25 Unknown History mirabegron 50 mg tablet,extended 50 mg PO DAILY 11/23/24 04/04/25 04/04/25 History release 24 hr (Myrbetriq) diclofenac sodium 1 % topical gel 1 g topical BID PRN Pain 04/04/25 04/04/25 Unknown History fluticasone furoate 100 1 ea inhalation DAILY 04/04/25 04/04/25 04/04/25 History mcg-vilanterol 25 mcg/dose inhalation powder (Breo Ellipta) gentamicin 0.1 % topical ointment 1 appl topical DAILY PRN Fungal 04/04/25 04/04/25 Unknown History Infection lidocaine 5 % topical patch 1 - 3 patch topical DAILY PRN Pain 04/04/25 04/04/25 Unknown History linaclotide 145 mcg capsule 145 mcg PO DAILY 04/04/25 04/04/25 04/04/25 History (Linzess) magnesium hydroxide 600 mg 600 mg PO BID 04/04/25 04/04/25 04/04/25 History chewable tablet rabeprazole 20 mg tablet,delayed 20 mg PO DAILY PRN GERD 04/04/25 04/04/25 Unknown History release ticagrelor 90 mg tablet (Brilinta) 90 mg PO BID 04/04/25 04/04/25 04/04/25 History tramadol 50 mg tablet 50 mg PO QID PRN Pain 04/04/25 04/04/25 Unknown History Physical Exam Vital Signs: Vital Signs: Last Vital Signs Temp 98.3 F 04/05/25 11:11 Pulse 70 04/05/25 11:11 Resp 18 04/05/25 11:11 BP 120/62 04/05/25 11:11 Pulse Ox 93 04/05/25 11:11 O2 Del Method Room Air 04/05/25 11:11 BMI result Body Mass Index 24.0 GENERAL APPEARANCE: in no acute distress, pleasant. NECK: no carotid bruit, no jugular venous distention. SKIN: no suspicious lesions, warm and dry. HEART: no murmurs, regular rate and rhythm. LUNGS: clear to auscultation bilaterally. ABDOMEN: soft, nontender. EXTREMITIES: no edema. PERIPHERAL PULSES: equal. NEUROLOGIC: No gross deficits, AAO X 3 Objective Labs and Meds 04/05/25 05:48 04/05/25 05:48 Lab results: Laboratory Results - last 24 hr 04/04/25 04/04/25 04/04/25 14:41 16:02 16:45 WBC 4.8 RBC 4.92 Hgb 14.8 Hct 42.6 MCV 86.6 MCH 30.1 MCHC 34.7 RDW 12.2 Plt Count 188 MPV 8.8 L Immature Gran % (Auto) 0.2 Neut % (Auto) 63.9 Lymph % (Auto) 26.2 [place] % (Auto) 8.9 Eos % (Auto) 0.6 Baso % (Auto) 0.2 Lymph # (Auto) 1.3 [place] # (Auto) 0.4 Eos # (Auto) 0.0 Baso # (Auto) 0.0 Abs Immat Gran (auto) 0.01 Absolute Neuts (auto) 3.1 Absolute Nucleated RBC 0.000 Nucleated RBC % (auto) 0.0 PT 10.6 L INR 0.9 D-Dimer High Sensitivty < 150 Sodium 143 Potassium 4.5 Chloride 107 Carbon Dioxide 30 H Anion Gap 11 L BUN 15 Creatinine 0.95 Estim Creat Clear Calc 64.3 Estimated GFR > 60 Random Glucose 93 Calcium 9.9 Magnesium 2.2 Total Bilirubin 0.7 AST 29 ALT 35 Alkaline Phosphatase 61 Troponin I High Sens 3.2 3.7 NT-Pro-B Natriuret Pep 172.8 Total Protein 7.0 Albumin 4.3 04/05/25 05:48 WBC 6.5 RBC 4.23 L Hgb 13.0 L Hct 36.3 L MCV 85.8 MCH 30.7 MCHC 35.8 RDW 12.1 Plt Count 168 MPV 9.2 L Immature Gran % (Auto) 0.2 Neut % (Auto) 68.7 Lymph % (Auto) 21.6 [place] % (Auto) 8.6 Eos % (Auto) 0.6 Baso % (Auto) 0.3 Lymph # (Auto) 1.4 [place] # (Auto) 0.6 Eos # (Auto) 0.0 Baso # (Auto) 0.0 Abs Immat Gran (auto) 0.01 Absolute Neuts (auto) 4.5 Absolute Nucleated RBC 0.000 Nucleated RBC % (auto) 0.0 PT INR D-Dimer High Sensitivty Sodium 142 Potassium 3.9 Chloride 110 H Carbon Dioxide 25 Anion Gap 11 L BUN 15 Creatinine 0.93 Estim Creat Clear Calc 65.7 Estimated GFR > 60 Random Glucose 91 Calcium 8.7 D Magnesium Total Bilirubin 0.8 AST 24 ALT 27 Alkaline Phosphatase 52 Troponin I High Sens NT-Pro-B Natriuret Pep Total Protein 5.8 L Albumin 3.5 Imaging Radiologist's impression: Impressions Chest X-Ray 04/04/25 14:00 IMPRESSION: No active pulmonary disease. Electronically signed by: Stuart Quinones MD 04/04/2025 02:08 PM EDT RP Assessment and Plan (1) Chest pain: Qualifiers: Chest pain type: unspecified Qualified Code(s): R07.9 - Chest pain, unspecified Status: Acute Plan Chest pain in a 69 year gentleman with known history of coronary disease with previous LAD and RCA PCI. In September 2024 he had stress testing followed by cardiac catheterization when he had LAD PCI performed. He had a myocardial bridge in the mid segment of the LAD noted at that time. This is an incidental finding. Blood pressure is well controlled. EKG and biomarkers are negative. I will arrange a stress echocardiogram for him today. If stress echo is normal then we can discharge him back home and he can have further workup for his dysphagia with EGD/dilatation. Thank you for allowing me to participate in the care of your patient. Please feel free to contact me if you have any questions. Procedures Date of Service Date of Service: 04/05/25
--- NOTE | 2025-04-05 13:40 | PC.NURSE ---
Pt off unit for cardiac stress test
--- NOTE | 2025-04-05 14:24 | HO.PM.IMPN ---
Subjective Subjective Date of Service: 04/05/25 Interval History: Seen and examined this morning Follow-up for chest pain. No chest pain at this time Plan for stress echo today Constitutional Constitutional: Denies chills and Denies fever(s) Cardiovascular Cardiovascular: Reports chest pain and Denies palpitations Endocrine Endocrine: Denies palpitations Physical Exam Vital Signs: Vital Signs: Last Vital Signs Temp 98.3 F 04/05/25 11:11 Pulse 70 04/05/25 11:11 Resp 18 04/05/25 11:11 BP 120/62 04/05/25 11:11 Pulse Ox 93 04/05/25 11:11 O2 Del Method Room Air 04/05/25 11:11 BMI result Body Mass Index 24.0 Const: General: cooperative, comfortable, alert and awake Nutritional Appearance: average body habitus Orientation/consciousness: patient oriented x3 Resp: Effort & Inspection: normal respiratory effort, no respiratory distress and no use of accessory muscles GI: Inspection: No distended Neuro: General: patient oriented x3, moves all extremities and CN's II-XI intact bilaterally Objective Data Active Medications Acetaminophen (Acetaminophen 325 Mg Tablet) 650 mg PO Q6H PRN PRN Reason: Pain, Mild 1-3,fever,headache Albuterol/Ipratropium (Albuterol/Iprat 2.5/0.5mg 3 Ml Ampul.Neb) 3 ml INHALE Q4H PRN PRN Reason: Shortness of Breath/Wheezing Aspirin (Aspirin Enteric Coated 81 Mg Tablet.) 81 mg PO DAILY [facility] Last Admin: 04/05/25 08:11 Dose: 81 mg Documented By: ALF Atorvastatin Calcium (Atorvastatin Calcium 40 Mg Tablet) 40 mg PO DAILY [facility] Last Admin: 04/05/25 08:11 Dose: 40 mg Documented By: ALF Calcium Carbonate (Calcium Carbonate 750 Mg Tab.Chew) 750 mg PO Q4H PRN PRN Reason: Heartburn Ezetimibe (Ezetimibe 10 Mg Tablet) 10 mg PO DAILY [facility] Last Admin: 04/05/25 08:10 Dose: 10 mg Documented By: ALF Enoxaparin Sodium (Enoxaparin Sodium 40 Mg/0.4 Ml Syringe) 40 mg SUBCUT Q24H [facility] Last Admin: 04/04/25 19:58 Dose: 40 mg Documented By: KARISSA Hydromorphone HCl (Hydromorphone Hcl 0.5 Mg/0.5 Ml Syringe) 0.5 mg IVPUSH Q4H PRN; Protocol PRN Reason: Pain, Severe (Pain Scale 7-10) Last Admin: 04/04/25 19:47 Dose: 0.5 mg Documented By: KARISSA Lactated Ringer's (Lr) 1,000 mls @ 100 mls/hr IVCONT .Q10H [facility] Last Admin: 04/05/25 05:27 Dose: 100 mls/hr Documented By: MERLINE Magnesium Hydroxide (Milk Of Magnesia 30 Ml Oral.Susp) 30 ml PO DAILY PRN PRN Reason: Constipation Melatonin (Melatonin 3 Mg Tablet) 6 mg PO BEDTIME PRN PRN Reason: Insomnia Metoprolol Succinate (Metoprolol Succinate Er 25 Mg Tab.Er.24h) 25 mg PO DAILY [facility]; Protocol Last Admin: 04/05/25 08:13 Dose: Not Given Documented By: ALF Non-Admin Reason: See Note Mirabegron (Mirabegron 50 Mg Tab.Er.24h) 50 mg PO DAILY [facility] Last Admin: 04/05/25 08:11 Dose: 50 mg Documented By: ALF Montelukast Sodium (Montelukast Sodium 10 Mg Tablet) 10 mg PO BEDTIME [facility] Last Admin: 04/04/25 21:37 Dose: 10 mg Documented By: KARISSA Nitroglycerin (Nitroglycerin 0.4 Mg Tab.Subl) 0.4 mg SUBLINGUAL Q5MX3 PRN PRN Reason: Chest Pain Pantoprazole Sodium (Pantoprazole Sodium 40 Mg/10 Ml Vial) 40 mg IVPUSH DAILY@0630 [facility] Last Admin: 04/05/25 05:27 Dose: 40 mg Documented By: MERLINE Sodium Chloride (0.9 % Sodium Chloride Flush 3 Ml Syringe) 3 ml IVFLUSH QSHIFT [facility] Last Admin: 04/05/25 08:12 Dose: Not Given Documented By: ALF Non-Admin Reason: IV Running Sucralfate (Sucralfate Oral Suspension 1 Gm/10 Ml Oral.Susp) 1 gm PO QIDACHS [facility] Last Admin: 04/05/25 11:41 Dose: 1 gm Documented By: ALF Ticagrelor (Ticagrelor 90 Mg Tablet) 90 mg PO BID [facility]ELI Last Admin: 04/05/25 08:10 Dose: 90 mg Documented By: ALF Labs 04/05/25 05:48 04/05/25 05:48 Labs: Laboratory Results - last 24 hr 04/04/25 04/04/25 04/04/25 14:41 16:02 16:45 MCV 86.6 MCH 30.1 MCHC 34.7 RDW 12.2 Plt Count 188 MPV 8.8 L Immature Gran % (Auto) 0.2 Neut % (Auto) 63.9 Lymph % (Auto) 26.2 [place] % (Auto) 8.9 Eos % (Auto) 0.6 Baso % (Auto) 0.2 Lymph # (Auto) 1.3 [place] # (Auto) 0.4 Eos # (Auto) 0.0 Baso # (Auto) 0.0 Abs Immat Gran (auto) 0.01 Absolute Neuts (auto) 3.1 Absolute Nucleated RBC 0.000 Nucleated RBC % (auto) 0.0 PT 10.6 L INR 0.9 D-Dimer High Sensitivty < 150 Anion Gap 11 L Estim Creat Clear Calc 64.3 Estimated GFR > 60 Random Glucose 93 Calcium 9.9 Magnesium 2.2 Total Bilirubin 0.7 AST 29 ALT 35 Alkaline Phosphatase 61 Troponin I High Sens 3.2 3.7 NT-Pro-B Natriuret Pep 172.8 Total Protein 7.0 Albumin 4.3 04/05/25 05:48 MCV 85.8 MCH 30.7 MCHC 35.8 RDW 12.1 Plt Count 168 MPV 9.2 L Immature Gran % (Auto) 0.2 Neut % (Auto) 68.7 Lymph % (Auto) 21.6 [place] % (Auto) 8.6 Eos % (Auto) 0.6 Baso % (Auto) 0.3 Lymph # (Auto) 1.4 [place] # (Auto) 0.6 Eos # (Auto) 0.0 Baso # (Auto) 0.0 Abs Immat Gran (auto) 0.01 Absolute Neuts (auto) 4.5 Absolute Nucleated RBC 0.000 Nucleated RBC % (auto) 0.0 PT INR D-Dimer High Sensitivty Anion Gap 11 L Estim Creat Clear Calc 65.7 Estimated GFR > 60 Random Glucose 91 Calcium 8.7 D Magnesium Total Bilirubin 0.8 AST 24 ALT 27 Alkaline Phosphatase 52 Troponin I High Sens NT-Pro-B Natriuret Pep Total Protein 5.8 L Albumin 3.5 Assessment and Plan (1) CAD (coronary artery disease): Status: Acute (2) Chest pain: Status: Acute Plan 69-year-old male with a past medical history of HTN, HLD, CAD, stent placement in; peptic ulcer disease, GERD, pseudoaneurysm, cricopharyngeal dysphagia, esophageal stricture, osteoarthritis, erosive gastritis, Soto's esophagus; presented to the hospital today with a chief complaint of chest pain. Chest pain: Patient with known history of CAD with stent placement in September. On aspirin Brilinta-will continue Also had a history of GERD/Soto's esophagus/esophageal stricture-will give IV Pepcid. EKG nonischemic Troponins negative CT chest showed no evidence of PE Continue metoprolol with holding parameters as patient had a brief episode of bradycardia after he received Dilaudid in the ER. cardiology planning for stress echo - further management baseline on outcome HTN/HLD: Continue home medications. Dysphagia: seen by speech, no issues - outpaitnet planned EGD DVT prophylaxis: Lovenox Code status: Full code Quality Stroke Does the patient have a stroke diagnosis?: No VTE Prior VTE?: No VTE Risk Level:: Medical - moderate - high VTE Device Contraindication: Treatment Not Indicated VTE Drug Contraindication: N/A - Med Ordered
--- NOTE | 2025-04-05 14:40 | P.DS_ITS ---
DS: Providers Provider Date of Service: 04/06/25 Date of admission: 04/04/25 18:17 Date of discharge: 04/06/25 Primary care physician: Shelbie Upton MD Consults: 04/04/25 19:18 Consult to Cardiology Routine Consulting Provider: [facility] [place] [facility] Reason for consultation: chest pain Attending physician on discharge: Luanne Cardoza Discharging clinician: Ana Maria Bethea DS: Diagnosis Discharge Diagnosis (1) CAD (coronary artery disease): Status: Acute (2) Chest pain: Status: Acute DS: Summary Hospital Course Hospital Course: From H&P on the day of admission 69-year-old male with a past medical history of HTN, HLD, CAD, stent placement in; peptic ulcer disease, GERD, pseudoaneurysm, cricopharyngeal dysphagia, esophageal stricture, osteoarthritis, erosive gastritis, Soto's esophagus; presented to the hospital today with a chief complaint of chest pain. Patient reports that after the stent placement in September he always had mild chest pain but since yesterday and today he has been having constant type pain increasing in intensity; severe in nature; no associated nausea vomiting or diaphoresis. Reports his pain got improved after he got Dilaudid in the ER. Denies any fevers and chills. Denies any recent travel or sick contacts. Denies any urinary symptoms. Review of all other systems is negative except mentioned above ER course: Per ER team, patient's EKG was nonischemic; patient complained of chest pain which is not improving; given nitroglycerin and aspirin but continued to have the pain. Discussed with cardiology who mentioned no acute intervention. Patient troponins were negative. Patient pain improved after he got Dilaudid. Chest pain: Patient with known history of CAD with stent placement in September. On aspirin and Brilinta. Also continued on beta-art and statin. EKG was nonischemic and Troponins were negative x2. CT chest showed no evidence of PE. He was seen and evaluated by Cardiology who recommended inpatient stress echocardiogram. Results of stress echocardiogram abnormal with ST depressions inferiorly in leads V4 through V6 meeting criteria for ischemia. With left-sided chest pain. Plan for transferred to tertiary care facility for cardiac catheterization. Per Cardiology no plan for heparin drip at this time. HTN/HLD: Continue home medications. Dysphagia: Also has a history of GERD/Soto's esophagus/esophageal stricture for which he received IV pepcid. outpatient planned EGD after cardiology work up completed. seen by speech therapy - Patient has history of pharyngeal esophageal dysphagia, presented with mild signs of this condition today on bedside assessment (mild globus sensation on solid food given). Patient reports strategies used to manage his needs, is well informed about his condition. Recommend patient continue on REGULAR diet with THIN liquids, larger pills crushed in puree, other pills whole in puree. Time Attestation Discharge Coordination Time (in mins): 32 Quality: Safe Use of Opioids Does Pt have an Active Cancer Diagnosis on the Problem List?: No Quality: Stroke Does the patient have a stroke diagnosis?: No Physical Exam Vital Signs: Vital Signs: Last Vital Signs Temp 98.3 F 04/05/25 11:11 Pulse 70 04/05/25 11:11 Resp 18 04/05/25 11:11 BP 120/62 04/05/25 11:11 Pulse Ox 93 04/05/25 11:11 O2 Del Method Room Air 04/05/25 11:11 BMI result Body Mass Index 24.0 Const: General: cooperative, comfortable, alert and awake Nutritional Appearance: average body habitus Orientation/consciousness: patient oriented x3 Resp: Effort & Inspection: normal respiratory effort, able to speak in complete sentences, no respiratory distress and no use of accessory muscles Cardio: Rate: regular rate GI: Inspection: No distended Palpation (GI): Soft to palpation and nontender Neuro: General: patient oriented x3, moves all extremities and CN's II-XI intact bilaterally DS: Data Data Completed and Pending Labs on day of discharge: Laboratory Results - last 24 hr 04/04/25 04/04/25 04/04/25 14:41 16:02 16:45 WBC 4.8 RBC 4.92 Hgb 14.8 Hct 42.6 MCV 86.6 MCH 30.1 MCHC 34.7 RDW 12.2 Plt Count 188 MPV 8.8 L Immature Gran % (Auto) 0.2 Neut % (Auto) 63.9 Lymph % (Auto) 26.2 Boundary % (Auto) 8.9 Eos % (Auto) 0.6 Baso % (Auto) 0.2 Lymph # (Auto) 1.3 Boundary # (Auto) 0.4 Eos # (Auto) 0.0 Baso # (Auto) 0.0 Abs Immat Gran (auto) 0.01 Absolute Neuts (auto) 3.1 Absolute Nucleated RBC 0.000 Nucleated RBC % (auto) 0.0 PT 10.6 L INR 0.9 D-Dimer High Sensitivty < 150 Sodium 143 Potassium 4.5 Chloride 107 Carbon Dioxide 30 H Anion Gap 11 L BUN 15 Creatinine 0.95 Estim Creat Clear Calc 64.3 Estimated GFR > 60 Random Glucose 93 Calcium 9.9 Magnesium 2.2 Total Bilirubin 0.7 AST 29 ALT 35 Alkaline Phosphatase 61 Troponin I High Sens 3.2 3.7 NT-Pro-B Natriuret Pep 172.8 Total Protein 7.0 Albumin 4.3 04/05/25 05:48 WBC 6.5 RBC 4.23 L Hgb 13.0 L Hct 36.3 L MCV 85.8 MCH 30.7 MCHC 35.8 RDW 12.1 Plt Count 168 MPV 9.2 L Immature Gran % (Auto) 0.2 Neut % (Auto) 68.7 Lymph % (Auto) 21.6 Boundary % (Auto) 8.6 Eos % (Auto) 0.6 Baso % (Auto) 0.3 Lymph # (Auto) 1.4 Boundary # (Auto) 0.6 Eos # (Auto) 0.0 Baso # (Auto) 0.0 Abs Immat Gran (auto) 0.01 Absolute Neuts (auto) 4.5 Absolute Nucleated RBC 0.000 Nucleated RBC % (auto) 0.0 PT INR D-Dimer High Sensitivty Sodium 142 Potassium 3.9 Chloride 110 H Carbon Dioxide 25 Anion Gap 11 L BUN 15 Creatinine 0.93 Estim Creat Clear Calc 65.7 Estimated GFR > 60 Random Glucose 91 Calcium 8.7 D Magnesium Total Bilirubin 0.8 AST 24 ALT 27 Alkaline Phosphatase 52 Troponin I High Sens NT-Pro-B Natriuret Pep Total Protein 5.8 L Albumin 3.5 Discharge Plan Discharge Patient Disposition: Xfer Acute Care Hospital Discharge Diagnosis: chest pain Referrals: Shelbie Upton MD [Primary Care Provider, Endocrinology] - 1 Week Discharge Medications: Continued sucralfate 100 mg/mL suspension 10 ml PO QIDACHS Qty: 400 1RF aspirin 81 mg tablet,delayed release (DR/EC) 81 mg PO DAILY Qty: 90 2RF lidocaine 5 % adhesive patch,medicated 1 - 3 patch topical DAILY MDD 1 for 12 hours max PRN (Reason: Pain) Rx Instructions: APPLY 1 TO 3 PATCHES TOPICALLY ONCE DAILY. 12 HOURS ON, AND 12 HOURS OFF. fluticasone furoate-vilanterol [Breo Ellipta] 100-25 mcg/dose blister with device 1 ea INHALATION DAILY ticagrelor [Brilinta] 90 mg tablet 90 mg PO BID tramadol 50 mg Tablet 50 mg PO QID PRN (Reason: Pain) gentamicin 0.1 % Ointment 1 appl TOPICAL DAILY PRN (Reason: Fungal Infection) rabeprazole 20 mg tablet,delayed release (DR/EC) 20 mg PO DAILY PRN (Reason: GERD) diclofenac sodium 1 % gel 1 g topical BID PRN (Reason: Pain) Linzess 145 mcg capsule 145 mcg PO DAILY Rx Instructions: Take first thing in the morning with a full glass of water. magnesium hydroxide 600 mg tablet,chewable 600 mg PO BID losartan 25 mg tablet 25 mg PO DAILY lidocaine-prilocaine 2.5-2.5 % cream 1 g topical BID PRN (Reason: Pain) Jublia 10 % solution with applicator 1 appl topical DAILY PRN (Reason: Fungal Infection) albuterol sulfate 90 mcg/actuation HFA aerosol inhaler 2 puff inhalation Q4H PRN (Reason: shortness of breath or wheezing) Qty: 8.5 3RF montelukast 10 mg tablet 10 mg PO BEDTIME famotidine 20 mg tablet 20 mg PO BID PRN (Reason: GERD) ezetimibe 10 mg tablet 10 mg PO DAILY Qty: 30 5RF metoprolol succinate [Toprol XL] 25 mg tablet extended release 24 hr 25 mg PO DAILY Qty: 30 5RF mirabegron [Myrbetriq] 50 mg tablet extended release 24 hr 50 mg PO DAILY nitroglycerin 0.4 mg tablet, sublingual 0.4 mg sublingual Q5M PRN (Reason: chest pain) Qty: 20 1RF Rx Instructions: do not exceed 3 doses per episode atorvastatin 40 mg tablet 40 mg PO DAILY Qty: 30 5RF Discharge Orders: Discharge Order (Routine); Ordered 04/06/25 Ordered By: Ana Maria Bethea Activity on Discharge: As tolerated Stand Alone Forms: Patient Portal Discharge page Print Language: Other Care Plan Goals: see below Health Concerns: chest pain with + stress echocardiogram History of coronary artery disease Plan of Treatment[place] [facility] [place] Continue statin, beta-art, aspirin, Brilinta Assessment: Chest pain with positive stress echocardiogram requiring further investigation with cardiac catheterization, plan for transfer to [facility] Discharge Date/Time: 04/06/25 16:06
[2025-04-05] MEDS: 0.9 % Sodium Chloride Flush 3 ML SYRINGE IVFLUSH (20:56)
--- NOTE | 2025-04-05 22:47 | PC.NURSE ---
Pt planned for transfer to [facility] for cardiac cath [facility]BA. Patient due to get Lovenox injection at 1999. Confirmed with MD that it is okay to give.
[2025-04-06 03:52] VITALS: BP 154/72; PULSE 75; RESP 16; TEMP 36.6; O2SAT 92
[2025-04-06 06:19] VITALS: BP 149/80
[2025-04-06] MEDS: Sucralfate Oral Suspension 1 GM/10 ML ORAL.SUSP PO ×2 (06:46→10:56)
[2025-04-06 07:17] VITALS: BP 138/69; PULSE 57; RESP 18; TEMP 36.7; O2SAT 94
[2025-04-06] MEDS: Mirabegron 50 MG TAB.ER.24H PO (07:20)
[2025-04-06] MEDS: Aspirin Enteric Coated 81 MG TABLET.DR PO (07:20)
[2025-04-06] MEDS: Lactated Ringers 1,000 ML 100 ML IVCONT (07:23)
[2025-04-06] MEDS: Fluticasone/Vilanterol 100/25 BLST.W.DEV 1 PUFF INHALE (07:56)
[2025-04-06 07:59] VITALS: PULSE 58; RESP 16; O2SAT 94
[2025-04-06 08:56] LABS: Hematocrit 38.8 % (42.0-52.0); Hemoglobin 13.8 g/dl (14.0-18.0); Mean Corpuscular HGB Conc 35.6 g/dl (31.0-36.0); Mean Corpuscular Hemoglobin 30.1 pg (27.0-33.0); Mean Corpuscular Volume 84.7 fL (80.0-98.0); NRBC Abs Auto 0.000 X10*3/uL (0.0-0.012); NRBC Pct Auto 0.0 /100WBC (0.0-0.2); Platelet Count 156 X10*3/uL (160-400); Red Blood Count 4.58 X10*6/uL (4.60-5.80); White Blood Count 4.8 X10*3/uL (4.8-10.8)
[2025-04-06 11:08] VITALS: BP 135/78; PULSE 67; RESP 18; TEMP 36.8; O2SAT 93
--- NOTE | 2025-04-06 11:32 | MHC.CM.PN ---
[place] [facility] [place]
[2025-04-06 14:59] VITALS: PULSE 63; RESP 18; TEMP 36.8; O2SAT 93
--- NOTE | 2025-04-06 15:25 | P.PNCA_ITS ---
Subjective Subjective Date of Service: 04/06/25 Interval history: Seen examined at bedside. Waiting for transfer to [facility] for cardiac catheterization. Physical Exam Vital Signs: Last Vital Signs Temp 98.3 F 04/06/25 14:59 Pulse 63 04/06/25 14:59 Resp 18 04/06/25 14:59 BP 135/78 04/06/25 11:08 Pulse Ox 93 04/06/25 14:59 O2 Del Method Room Air 04/06/25 14:59 BMI result Body Mass Index 24.0 GENERAL APPEARANCE: in no acute distress, pleasant. NECK: no carotid bruit, no jugular venous distention. SKIN: no suspicious lesions, warm and dry. HEART: no murmurs, regular rate and rhythm. LUNGS: clear to auscultation bilaterally. ABDOMEN: soft, nontender. EXTREMITIES: no edema. PERIPHERAL PULSES: equal. NEUROLOGIC: No gross deficits, AAO X 3 Objective Labs and Meds 04/06/25 08:41 04/05/25 05:48 Lab results: Laboratory Results - last 24 hr 04/06/25 08:41 WBC 4.8 RBC 4.58 L Hgb 13.8 L Hct 38.8 L MCV 84.7 MCH 30.1 MCHC 35.6 RDW 11.9 Plt Count 156 L MPV 8.8 L Absolute Nucleated RBC 0.000 Nucleated RBC % (auto) 0.0 Progress Note: A&P Assessment and plan (1) CAD (coronary artery disease): Status: Acute (2) Chest pain: Status: Acute (3) Abnormal stress test: Status: Acute Plan [age] year gentleman who is here for chest pain. He was ruled out and had no dynamic EKG changes. He was referred for exercise stress echocardiogram. During stress test he had dynamic EKG changes which were clearly ischemic appearing but did not have any wall motion abnormalities on stress echocardiogram. He has known history of coronary disease with previous RCA and LAD PCI. Given the fact that he has coronary disease and abnormal EKG with symptoms we decided to do diagnostic angiography on him. He has been waiting to undergo cardiac catheterization at [facility] and we will be transferred hopefully in the next hour to [facility] and we will do the procedure there. 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 The site appears to have healed. I think we can still attempt with the radial access. Thank you for allowing me to participate in the care of your patient. Please feel free to contact me if you have any questions. Time Spent With Patient Time: Total time managing care of this patient today ____ minutes. Progress Note: Quality Stroke Does the patient have a stroke diagnosis?: No Procedures Date of Service Date of Service: 04/06/25
== END 2025-04-06 16:06 | disposition short-term general hospital (02) ==
LOC: HO.ED 18:15 → HO.EDOVER 18:21 → HO.IMC 20:24
PROVIDERS: Hospitalist; Physician Assistant Medical; Registered Nurse Emergency; Admitting Provider Internal Medicine; Emergency Provider Student in an Organized Health Care Education/Training Program; PCP Internal Medicine; Visit Provider Physician Assistant Medical
DX: R07.9 Chest pain, unspecified (principal); I25.10 Atherosclerotic heart disease of native coronary artery without angina pectoris; I12.9 Hypertensive chronic kidney disease with stage 1 through stage 4 chronic kidney disease, or unspecified chronic kidney disease; N18.9 Chronic kidney disease, unspecified; E78.5 Hyperlipidemia, unspecified; M25.512 Pain in left shoulder; R13.10 Dysphagia, unspecified; R94.39 Abnormal result of other cardiovascular function study; Z79.899 Other long term (current) drug therapy
CPT/HCPCS: 36415; 71046; 71275; 80053; 83735; 83880; 84484; 85025; 85027; 85379; 85610; 92610; 93005; 93350; 96361; 96372; 96374; 96375; 96376; 99222; 99285; J1171; J1650; J2470; J7120; Q9957; Q9967

== ENCOUNTER → 2025-04-04 13:58 | Outpatient (BNV) | payer OTHER, SELFPAY | PROVIDERS: PCP Internal Medicine; Visit Provider Radiology Diagnostic Radiology | DX: R07.9 Chest pain, unspecified (principal); I25.84 Coronary atherosclerosis due to calcified coronary lesion; J98.11 Atelectasis | CPT/HCPCS: 71046; 71275 ==

== ENCOUNTER 2025-04-04 18:17 | Outpatient (BNV) | payer OTHER, SELFPAY | END 2025-04-05 13:15 | PROVIDERS: Admitting Provider Internal Medicine; Emergency Provider Student in an Organized Health Care Education/Training Program; PCP Internal Medicine | DX: R07.9 Chest pain, unspecified (principal); I49.1 Atrial premature depolarization; R07.89 Other chest pain | CPT/HCPCS: 93016; 93018; 93350; 93352 ==

== ENCOUNTER → 2025-04-04 18:17 | Outpatient (BNV) | payer OTHER, SELFPAY | PROVIDERS: Admitting Provider Internal Medicine; Emergency Provider Student in an Organized Health Care Education/Training Program; PCP Internal Medicine; Visit Provider Physician Assistant Medical | DX: I25.10 Atherosclerotic heart disease of native coronary artery without angina pectoris (principal); R07.9 Chest pain, unspecified | CPT/HCPCS: 99223; 99233; 99239 ==

== ENCOUNTER → 2025-04-04 18:17 | Outpatient (BNV) | payer OTHER, SELFPAY | PROVIDERS: Admitting Provider Internal Medicine; Emergency Provider Student in an Organized Health Care Education/Training Program; PCP Internal Medicine; Visit Provider Internal Medicine Cardiovascular Disease | DX: R07.9 Chest pain, unspecified (principal) | CPT/HCPCS: 93010; 99222 ==

== ENCOUNTER → 2025-04-06 23:59 | Outpatient (BNV) | payer OTHER, SELFPAY | PROVIDERS: PCP Internal Medicine; Visit Provider Internal Medicine Cardiovascular Disease | DX: I20.89 Other forms of angina pectoris (principal); R93.1 Abnormal findings on diagnostic imaging of heart and coronary circulation | CPT/HCPCS: 93458; 93571; 93572 ==

== ENCOUNTER → 2025-05-05 23:59 | Outpatient (BNV) | payer OTHER, SELFPAY | PROVIDERS: PCP Internal Medicine; Visit Provider Internal Medicine | DX: I25.118 Atherosclerotic heart disease of native coronary artery with other forms of angina pectoris (principal); R73.9 Hyperglycemia, unspecified | CPT/HCPCS: G0180 ==

== ENCOUNTER 2025-05-15 13:06 | Outpatient (AMB) | payer OTHER, SELFPAY ==
--- OUTSIDE RECORDS SUMMARY | 2025-04-30 09:45 | XMS_ITS ---
Author Organization [facility] Address [address] [address] Care Team Providers Care Patient Care Technician Instructor Name Role Phone Fiona DURHAM, Wayne Primary Care Provider JORGE L Burks Unavailable [phone] REASON FOR VISIT 3 month f/u Encounters Encounter Location Date Provider Diagnosis [facility] [address] [address] 04/30/2025 JORGE L LI Plan Of Treatment Next Appt Details Provider Name:JORGE L LI, 05/30/2025 02:45:00 PM, [address] [address], [place], [address], Progress Notes * Mckinley LEWISOB:1955 ([age] yo M)Acc No.[id number]:04/30/2025 Progress Note Patient: Laina HERNANDEZ Provider: Lee Li DPM :1955 A ge:69 Y S ex:Male Date:04/30/2025 Address:[address] [place], [place] [phone] Pcp:Wayne Jaimes MD Subjective: * Chief Complaints: * 1 . 3 month f/u. * Medical History: Objective: * Vitals: Assessment: Plan: * Treatment: * Billing Information: * Visit Code: * Procedure Codes: * Electronic signature of LENCHO LI D.P.M on 05/15/2025 at 03:51 PM EST Sign off status: Pending * Provider: Lee Li DPM Date: 1 Generated for Tatiana lema/Nilsa/Glo on: 07/15/2024 03:51 PM EST
--- OUTSIDE RECORDS SUMMARY | 2025-05-09 14:00 | XMS_ITS | Encounter Summary ---
Author Organization [facility] Address [address] [place] [address] Care Team Providers Care [facility] [employer] Name Role Phone Shelbie Upton MD Primary Care Provider [phone] Reason for Visit * Reason Comments Pain Follow-up Pain Encounter Details Date Type Department Care Team (Late st Contact Info) Description 05/09/2025 3:00 PM EDT Office Visit Orthopedics - [place] [address] [place] [phone] Amadeo Sofia PA [address] [place] [phone] Primary osteoarthritis of right knee (Primary Dx); Primary osteoarthritis of left knee Social History Tobacco Use Types Packs/Day Years Used Date Smoking Tobacco: Never Passive Smoke Exposure: Never Smokeless Tobacco: Never Tobacco Cessation:Counseling Given: Not Answered Alcohol Use Standard Drinks/Week Comments Never 0 (1 standard drink = 0.6 oz pur e alcohol) Interpersonal Safety Answer Date Record ed Physical Abuse Unrecognized value 10/31/2024 Verbal Abuse Unrecognized value 10/31/2024 Sex and Gender Information Value Date Recorded Sex Assigned at Male 08/08/2024 11:35 AM EST Legal Sex Male 10:19 PM EST Gender Identity Male 08/08/2024 11:35 AM EST Sexual Orientation Straight 08/08/2024 11 :35 AM EST documented as of this encounter Last Filed Vital Signs Vital Sign Reading Time Taken Comments Blood Pressure - - Pulse - - Temperature - - Respiratory Rate 16 05/09/2025 2:57 PM EDT Oxygen Saturation - - Inhaled Oxygen Concentration - - Weight 65.3 kg (144 lb) 05/09/2025 2:57 PM EDT Height 167.6 cm (5' 6 ) 05/09/2025 2:57 PM EDT Body Mass Index 23.24 05/09/2025 2:57 PM EDT documented in this encounter Progress Notes * SUSAN Razo - 05/09/2025 3:00 PM EDT CHIEF COMPLAINT: Pain and Follow-up of the Left Knee and Pain of the Right Knee had concerns including Pain and Follow-up of the Left Knee and Pain of the Right Knee. IDENTIFIER: Laina Lewis is a 69 y.o. old male. HPI: Laina Lewis is here for evaluation of bilateral knee arthritis patient has been seen by our service line in [place]. Last time was approximately 6 months ago. He has received Euflexxa with good results. Here today for further discussion. States that l last Euflexxa injection lasted for about 6 months. We reviewed this through a video [employer]. I discussed repeat injections he is opento that. Will order Euflexxa today and assuming that this is approved we will see the patient back for Euflexxa injections ROS: GENERAL: No malaise, significant weight loss or fever HEENT: No changes in hearing or vision, nose bleeds or other nasal problems NECK: No lumps, goiter, pain or significant neck swelling RESPIRATORY: No cough, wheezing or shortness of breath CARDIOVASCULAR: No chest pain, leg swelling or palpitations GI: No abdominal discomfort, blood in stools or black stools : No dysuria, frequency or incontinence MUSCULOSKELETAL: See HPI. SKIN: No lesions, rash or itching NEURO: No persistent headache, syncope, seizures, weakness or numbness Remainder of systems noncontributory. PHYSICAL EXAM: Vitals: 05/09/25 1457 Resp: 16 Weight: 65.3 kg (144 lb) Height: 1.676 m (66 ) LABS/IMAGING: Xrays reviewed: Date of Visit: 08/10/2023 Reason for visit: Bilateral knee pain Views: AP, Lateral, [place], [place] bilateral knee Findings: Mild narrowing of the medial and lateral joint spaces of bilateral knees, no soft tissue abnormalities or bony lesions. Small enthesophyte superior patella bilateral knees. Impression: Mild osteoarthritis bilateral knees IMPRESSION: 1. Primary osteoarthritis of right knee 2. Primary osteoarthritis of left knee Laina was seen today for pain, follow-up and pain. Diagnoses and all orders for this visit: 1. Primary osteoarthritis of right knee Overview: Thoracic, & Lumbosacral Spine, Knees, Big Toe 2. Primary osteoarthritis of left knee Overview: Thoracic, & Lumbosacral Spine, Knees, Big Toe PLAN: 1. Primary osteoarthritis of right knee (Primary) 2. Primary osteoarthritis of left knee Will make request for viscosupplementation and contact patient when approved No orders of the defined types were placed in this encounter. The details of the visit were reviewed with the patient. Pertinent history, and objective findings were reviewed, along with the diagnoses: Laina Lewis acknowledges understanding of the above plan and agrees to follow recommendations and/ortake medications as prescribed. No follow-ups on file. PAST MEDICAL HISTORY: Patient Active Problem List Diagnosis Date Noted Calcium pyrophosphate deposition disease (CPPD) 01/03/2025 Equinus contracture of right ankle 01/03/2025 Primary osteoarthritis, left ankle and foot 01/03/2025 Psoriasis 01/03/2025 Proteinuria 11/15/2024 Chronic hoarseness 04/21/2024 Hemoptysis 04/21/2024 History of coronary artery stent placement 03/06/[address] elevation myocardial infarction (STEMI) 03/06/2024 Hyperlipidemia 03/06/2024 Palpitations 03/06/2024 Shortness of breath 03/06/2024 Straining with stools 08/27/2023 Chronic midline low back pain without sciatica 08/09/2023 Dizziness 04/30/2023 Dysphagia 04/07/2023 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 V24) 12/17/2022 ST elevation (STEMI) myocardial infarction ([facility] V24, [facility] V28) 12/11/2022 Benign prostatic hyperplasia without lower urinary tract symptoms 10/06/2022 White coat syndrome with hypertension 08/14/2022 Gastroesophageal reflux disease with esophagitis without hemorrhage 08/14/2022 JENNIFER (obstructive sleep apnea) 08/14/2022 Ganglion cyst of flexor tendon sheath 08/05/2022 Trigger finger, left middle finger 08/05/2022 Gastric erosions 04/27/2022 Passage of loose stools 04/27/2022 Candidiasis of mouth 04/14/2021 Elevated random blood glucose level 11/07/2020 Hyperglycemia, unspecified 11/07/2020 Multiple renal cysts 05/08/2020 Liver enzyme elevation 04/09/2020 Unilateral partial vocal cord paralysis 04/09/2020 Bilateral partial vocal cord paralysis 04/09/2020 History of partial thyroidectomy 04/09/2020 Benign paroxysmal positional vertigo 02/26/2020 S/P TURP 02/22/2020 Constipation 01/26/2020 Chronic nonintractable headache 01/26/2020 Vertigo 01/26/2020 Status post thyroidectomy 08/03/2019 Thyroid nodule 06/29/2019 History of adenomatous polyp of colon 02/14/2019 Allergic rhinitis due to pollen 09/20/2018 BPH associated with nocturia 11/16/2017 Nocturia associated with benign prostatic hyperplasia 11/16/2017 Herpes zoster without complication 10/15/2017 Lumbar disc herniation with radiculopathy 12/10/2016 Osteoarthritis 12/10/2016 Cough 09/04/2015 Esophageal reflux 11/28/2014 Mild tricuspid regurgitation 10/18/2014 Proteinuria 09/27/2014 Hematuria, microscopic 07/13/2013 Chronic gout without tophus 12/17/2011 Surgical History[1] SOCIAL HISTORY: Social History Tobacco Use Smoking status: Never Passive exposure: Never Smokeless tobacco: Never Substance Use Topics Alcohol use: Never FAMILY HISTORY: Family History[2] MEDICATIONS DISCONTINUED/REORDERED: Medications Discontinued During This Encounter Medication Reason triamcinolone (KENALOG) 0.1 % lotion Duplicate order tiZANidine (ZANAFLEX) 4 mg tablet Duplicate order metoprolol succinate (TOPROL-XL) 25 mg 24 hr tablet Duplicate order atorvastatin (LIPITOR) 10 mg tablet Alternate therapy atorvastatin (LIPITOR) 80 mg tablet Alternate therapy ACTIVE MEDICATIONS: Medications Taking[3] ALLERGIES: Allergies[4] SUSAN Razo [1] Past Surgical History: Procedure Laterality Date COLONOSCOPY 10/05/11 PROCEDURE: HISTORICAL COLONOSCOPY; COMMENT: [facility] - hemorrhoids otherwise normal to the cecum COLONOSCOPY 02/14/2019 PROCEDURE: HISTORICAL COLONOSCOPY; COMMENT: Dr. Muslu - 2 rectal adenomatous polyps. internal hemorrhoids. [...] dr. bell UPPER GASTROINTESTINAL ENDOSCOPY 01/13/2017 PROCEDURE: [place] UPPER GI ENDOSCOPY PERFORMED; COMMENT: normal UPPER GASTROINTESTINAL ENDOSCOPY 03/08/12 PROCEDURE: NC UPPER GI ENDOSCOPY PERFORMED; COMMENT: normal UPPER GASTROINTESTINAL ENDOSCOPY 09/17/2020 PROCEDURE: NC UPPER GI ENDOSCOPY PERFORMED; COMMENT: Normal findings. Biopsies of the midesophagus:Normal. [2] Family History Problem Relation Name Age of Onset No Known Problems Maternal Grandmother No Known Problems Maternal Grandfather No Known Problems Paternal Grandmother No Known Problems Paternal Grandfather Lung cancer Mother CAD Other (Other: unknown heart condition) Mother Hypertension Father Other (Other: Thyroid cancer) Sister 54.00 Other cancer Sister unknown Other (Other: Autism) Daughter No Known Problems Daughter Colon cancer Neg Hx [3] Outpatient Medications Marked as Taking for the 05/09/25 encounter (Office Visit) with SUSAN Razo Medication Sig Dispense Refill acetaminophen (TYLENOL) 325 mg tablet TAKE 3 TABLETS BY MOUTH EVERY 6 HOURS. (LIMIT 4000MG OF TYLENOL/ACETAMINOPHEN PER DAY) albuterol HFA (PROAIR HFA ; PROVENTIL HFA ; VENTOLIN HFA) 90 mcg/actuation inhaler Inhale 2 puffs by mouth every 6 (six) hours if needed for wheezing. 18 g 11 amiodarone (PACERONE) 200 mg tablet Take 1 tablet (200 mg total) by mouth. aspirin 81 mg EC tablet Take 1 tablet (81 mg total) by mouth 1 (one) time each day. atorvastatin (LIPITOR) 40 mg tablet Take 1 tablet (40 mg total) by mouth 1 (one) time each day. betamethasone, augmented, (DIPROLENE-AF) 0.05 % cream Apply topically 1 (one) time each day. bisacodyL (Dulcolax, bisacodyl,) 5 mg EC tablet Take 2 tabs at 6pm as directed. cimetidine (TAGAMET) 800 mg tablet Take 1 tablet (800 mg total) by mouth at bedtime. diclofenac (VOLTAREN) 1 % topical gel Apply 4 g topically 4 (four) times a day if needed (pain or swelling). 100 g 5 docusate sodium (COLACE) 100 mg capsule Take 2 capsules (200 mg total) by mouth. efinaconazole (Jublia) 10 % solution with applicator Apply topically. esomeprazole (NexIUM) [address] capsule Take 1 capsule (40 mg total) by mouth. ezetimibe (ZETIA) 10 mg tablet Take 1 tablet (10 mg total) by mouth 1 (one) time each day. famotidine (PEPCID) 20 mg tablet Take 1 tablet (20 mg total) by mouth 2 (two) times a day. fluticasone furoate-vilanteroL (Breo Ellipta) 100-25 mcg/dose inhaler Inhale 1 puff by mouth 1 (one) time each day. 60 each 11 fluticasone furoate-vilanteroL (BREO ELLIPTA) 100-25 mcg/dose inhaler Inhale by mouth. furosemide (LASIX) 20 mg tablet Take 1 tablet (20 mg total) by mouth. gabapentin (NEURONTIN) 300 mg capsule Take 1 capsule (300 mg total) by mouth if needed. gentamicin (GARAMYCIN) 0.1 % ointment APPLY 1 APPLICATION OF OINTMENT TOPICALLY ONCE DAILY. APPLY TO THE RIGHT BIG TOE AND LEFT 5TH TOE FOR 30 DAYS inhalat.spacing dev,large mask spacer Please use with inhaler lidocaine (LIDODERM) 5 % patch APPLY 1 TO 3 PATCHES TOPICALLY ONCE DAILY. 12 HOURS ON, AND 12 HOURSOFF. lidocaine (XYLOCAINE) 5 % ointment Apply topically 1 (one) time each day. lidocaine-prilocaine (EMLA) 2.5-2.5 % cream APPLY ONE GRAM OF CREAM TOPICALLY TO THE RIGHT AND LEFTFOOT TWICE DAILY DIRECTED FOR 30 DAYS Linzess 145 mcg capsule Take 1 capsule (145 mcg total) by mouth 1 (one) time each day. losartan (COZAAR) 25 mg tablet Take 1 tablet (25 mg total) by mouth 1 (one) time each day. 90 each 3 metoprolol succinate (TOPROL-XL) 25 mg 24 hr tablet Take 1 tablet (25 mg total) by mouth 1 (one) time each day. metoprolol tartrate (LOPRESSOR) 25 mg tablet TAKE 1 TABLET BY MOUTH TWO TIMES A DAY. *THIS IS NOT THE SAME MEDICATION YOU WERE TAKING BEFOR SURGERY* mirabegron (Myrbetriq) 50 mg tablet extended release 24 hr 24 hr tablet Take 1 tablet (50 mg total)by mouth 1 (one) time each day. montelukast (SINGULAIR) 10 mg tablet Take 1 tablet (10 mg total) by mouth at bedtime. 30 each 11 nitroglycerin (NITROSTAT) 0.4 mg SL tablet DISSOLVE ONE TABLET UNDER THE TONGUE EVERY 5 MINUTES NEEDED FOR CHEST PAIN. DO NOT EXCEED A TOTAL OF 3 DOSES PER EPISODE. nystatin (MYCOSTATIN) 100,000 unit/mL suspension Take 5 mL by mouth 2 (two) times a day. pantoprazole (PROTONIX) 20 mg EC tablet Take 1 tablet (20 mg total) by mouth 1 (one) time each day at the same time. pregabalin (LYRICA) 25 mg capsule Take 1 capsule (25 mg total) by mouth 1 (one) time each day. RABEprazole (ACIPHEX) 20 mg EC tablet Take by mouth. Do not crush, chew, or split. sucralfate (CARAFATE) 1 gram tablet Take 1 tablet (1 g total) by mouth 1 (one) time each day with lunch. sucralfate (CARAFATE) 100 mg/mL suspension Take 10 mL (1 g total) by mouth 4 (four) times a day (before meals and nightly). tacrolimus (PROTOPIC) 0.1 % ointment APPLY 1 APPLICATION OF OINTMENT TOPICALLY TO THE RIGHT FOOT RASH ONCE DAILY tamsulosin (FLOMAX) 0.4 mg 24 hr capsule Take 1 capsule (0.4 mg total) by mouth 1 (one) time each day at the same time. ticagrelor (BRILINTA) 90 mg tablet Take 1 tablet (90 mg total) by mouth 2 (two) times a day. tiZANidine (ZANAFLEX) 4 mg tablet Take 1 tablet (4 mg total) by mouth. traMADoL (ULTRAM) 50 mg tablet Take 1 tablet (50 mg total) by mouth every 4 (four) hours if needed. triamcinolone (KENALOG) 0.025 % cream APPLY 1 APPLICATION OF CREAM TOPICALLY ONCE DAILY FOR THE RASH ON THE BACK OF THE RIGHT ANKLE AND HEEL FOR 14 DAYS [DISCONTINUED] atorvastatin (LIPITOR) 10 mg tablet Take 1 tablet by mouth once daily (Patient taking differently: Take 4 tablets (40 mg total) by mouth 1 (one) time each day.) 90 tablet 0 [DISCONTINUED] atorvastatin (LIPITOR) 80 mg tablet Take 1 tablet (80 mg total) by mouth. at bedtime [4] No Known Allergies documented in this encounter Plan of Treatment Upcoming Encounters Date Type Department Care Team (Late st Contact Info) Description 08/08/2025 1:45 PM EST Office Visit Pulmonology - [place] [address] [facility] [address] [place] [phone] Jose Benjamin MD [address] [place] [phone] 11/14/2025 3:00 PM EDT Office Visit Nephrology [address] [phone] Eduard Mccormick MD [address] [facility] [address] [place] [phone] documented as of this encounter Visit Diagnoses Diagnosis Primary osteoarthritis of right knee- Primary Primary osteoarthritis of left knee documented in this encounter Discontinued Medications Medication Sig Discontinue Reason Start Date End Da te triamcinolone (KENALOG) 0.1 % lotion APPLY SPARINGLY TO AFFECTED AREAS TWICE DAILY NEEDED Duplicate order 08/24/2022 05/09/2025 tiZANidine (ZANAFLEX) 4 mg tablet Take 1 tablet (4 mg total) by mouth. Duplicate order 05/09/2025 metoprolol succinate (TOPROL-XL) 25 mg 24 hr tablet Take 1 tablet (25 mg total) by mouth 1 (one) time each day. Duplicate order 05/09/2025 atorvastatin (LIPITOR) 10 mg tablet Take 1 tablet by mouth once daily Alternate therapy 08/03/2024 05/09/2025 atorvastatin (LIPITOR) 80 mg tablet Take 1 tablet (80 mg total) by mouth. at bedtime Alternate therapy 04/16/2025 05/09/2025 documented as of this encounter Care Teams [employer] Relationship Specialty Start Date End Date Shelbie Upton MD [address] [place] [id number] PCP - General Internal Medicine 10/31/24 documented as of this encounter
--- NOTE | 2025-05-15 13:31 | MHC.OFFVIS ---
Vital Signs 05/15/25 13:33 Height 5 ft 6 in Weight 148 lb 9.465 oz BMI 24.0 BP 100/50 L Blood Pressure Location Lt brachial Position Sitting Pulse 60 Pulse Source Monitor Intake Visit Reasons: F/u Post CABG Agronomy Technician Required: Yes Agronomy Technician Name: Kathrin Arana [id number] octavia Accompanied by: Self / Same As Patient Allergies No Known Allergies Allergy (Verified 05/15/25 13:39) Medication List - Last Reconciled 05/15/25 by Arnaldo Rodgers NP albuterol sulfate 90 mcg/actuation 2 puffs inhalation Q4H PRN aspirin 81 mg PO DAILY atorvastatin 40 mg PO DAILY diclofenac sodium 1% 1 g topical BID PRN efinaconazole 10% (Jublia) 1 appl topical DAILY PRN ezetimibe 10 mg PO DAILY famotidine 20 mg PO BID PRN fluticasone furoate-vilanterol 100-25 mcg/dose (Breo Ellipta) 1 ea inhalation DAILY gentamicin 0.1% 1 appl topical DAILY PRN lidocaine 5% 1 - 3 patches topical DAILY PRN MDD 1 for 12 hours max lidocaine-prilocaine 2.5-2.5 % 1 g topical BID PRN linaclotide (Linzess) 145 mcg PO DAILY magnesium hydroxide 600 mg PO BID metoprolol succinate ER (Toprol XL) 25 mg PO DAILY mirabegron ER (Myrbetriq) 50 mg PO DAILY montelukast 10 mg PO BEDTIME nitroglycerin 0.4 mg sublingual Q5M PRN rabeprazole 20 mg PO DAILY PRN sucralfate 10 mL PO QIDACHS ticagrelor (Brilinta) 90 mg PO BID tramadol 50 mg PO QID PRN HPI Comments Details: This is a 69-year-old male patient coming in for a follow-up visit status post CABG. A [employer] freight rate analyst was used throughout the visit. Patient with a history of coronary artery disease with prior PCI to mid RCA in 2022 and LAD PCI in September of 2024. Patient then was seen in the hospital back in March for ongoing chest discomfort where patient underwent a stress echocardiogram which was abnormal. Patient was therefore transferred out to [facility] for a cardiac catheterization and is now status post CABG x2 on 04/11/25. Patient returned to [facility] for mild volume overload and chest discomfort with coughing that improved with diuresis. Patient was also put on amiodarone for prophylaxis however had to be discontinued due to GI intolerance. Patient states he is planning to follow up with GI in regards to this. Patient is continuing to report some sternal pain when coughing otherwise is denying any exertional chest pain, shortness of breath, palpitations, dizziness, orthopnea, PND, leg edema, presyncope or syncope. Patient is reporting compliance with all his medications. [facility] Medical History (Updated 05/16/25 @ 17:17 by Arnaldo Rodgers NP) Pseudoaneurysm Coronary artery disease involving coronary bypass graft Acute gouty arthritis Perianal dermatitis SOB (shortness of breath) on exertion Finger laceration with complication Encounter to establish care Trigger finger Thyroid nodule Surgical History (Updated 05/16/25 @ 17:17 by Arnaldo Rodgers NP) Stented coronary artery S/P cardiac cath H/O colonoscopy History of esophagogastroduodenoscopy (EGD) Hx of cataract extraction History of thyroid surgery History of prostate surgery Family History Sister Arthritis Mother Heart disease Lung cancer Father Hypertension Sister Thyroid cancer Social History Household Members: Spouse Housing: Apartment Are you a primary managed care coordinator to a significant other at home: No Do you presently have visiting nurse or other home services: No Alcohol intake: never Patient Tobacco Use Status: Never used Tobacco e-Cigarette/Vaping Use: Never Used Second Hand Smoke Exposure: No service: No Current occupational status: employed 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 Current occupational exposures/hazards: No Cognitive needs: No Hearing needs: No Vision needs: No Review of Systems Const Denies daytime sleepiness, Denies difficulty sleeping, Denies snoring, Denies stops breathing during sleep and Denies weakness Card Reports chest pain, Denies rapid heart rate, Denies irregular heart rhythm, Denies claudication, Denies leg edema, Denies lightheadedness, Denies palpitations, Reports dyspnea, Denies dyspnea on exertion, Denies orthopnea, Denies paroxysmal nocturnal dyspnea and Denies slow heart rate Resp Reports cough, Reports dyspnea, Denies dyspnea on exertion and Denies snoring GI Reports no additional complaints, Denies hematochezia, Denies change in stool character and Denies dyspepsia Musc Denies abnormal gait, Denies muscle weakness and Denies numbness Neuro Denies abnormal gait, Denies numbness and Denies weakness Endo Denies palpitations Physical Exam Vital Signs: Last Vital Signs Pulse 60 05/15/25 13:33 BP 100/50 L 05/15/25 13:33 BMI result Body Mass Index 24.0 Const General: cooperative, healthy appearing, comfortable and no acute distress Orientation/consciousness: patient oriented x3 HEENT Head: Yes normal to inspection Neck Neck: Yes normal visual inspection, Yes trachea midline and Yes supple Chest Chest palpation & inspection: normal inspection of the chest Resp Effort & Inspection: normal respiratory effort Auscultation: clear to auscultation bilaterally, no crackles, no rales, no rhonchi and no wheezes Cardio Jugular venous distension: no JVD Palpation: normal PMI Rate: regular rate Rhythm: regular rhythm Heart sounds: S1 normal heart sound present, S2 normal heart sound present, no click, no gallops, no murmurs and no rubs Peripheral pulses: Peripheral pulses 2+ throughout GI Inspection: Yes normal to inspection Palpation (GI): Soft to palpation Auscultation: normal bowel sounds Skin Other: Surgical wounds well healed- clean, dry and intact Neuro General: patient oriented x3 Extrem Other: Palpable and pulsating bulge on the right radial General: Yes normal to inspection, No no pedal edema and No calf tenderness Psych Appearance: grossly normal Mental Status: mental status grossly normal Speech and movement: Normal speech and movement present Office Procedures EKG Details: EKG today showed normal sinus rhythm, rate 60 beats per minute, nonspecific ST wave, [place], [place]. [id number], Complete Assessment & Plan Assessment & Plan (1) CAD (coronary artery disease): Code(s): I25.10 - Atherosclerotic heart disease of [place] coronary artery without angina pectoris Category: Medical Qualifiers: Coronary Disease-Associated Artery/Lesion type: [place] artery [place] vs. transplanted heart: [place] heart Associated angina: without angina Qualified Code(s): I25.10 - Atherosclerotic heart disease of [place] coronary artery without angina pectoris Plan: History of prior PCI to the RCA in 2022 and LAD in September 2024. Patient came back in March to the emergency room for ongoing chest discomfort and underwent a stress echocardiogram which was abnormal and therefore was transferred out to [facility] for cardiac catheterization. Patient is now status post CABG x2 (CRISTOBAL- LAD, SVG-R PLV) on 04/11/2025. Patient had transient constipation urinary retention postoperative which both resolved. On exam today, patient's incisions are healing appropriately with no drainage, warmth, redness, or swelling noted. Clinically euvolemic. Continue with lifetime aspirin therapy. Brilinta for at least 12 months. Continue with statin and Zetia therapy with the LDL goal less than 60. Continue metoprolol and Lasix therapy. Patient already has an echo set up for tomorrow. We will refer patient out to cardiac rehab. (2) S/P CABG (coronary artery bypass graft): Comment: CABG x2 (CRISTOBAL- LAD, SVG-R PLV) on 04/11/2025 Code(s): Z95.1 - Presence of aortocoronary bypass graft Category: Surgical Plan: As above. (3) S/P cardiac cath: Code(s): Z98.890 - Other specified postprocedural states Category: Surgical Plan: As above. (4) Hypertension: Code(s): I10 - Essential (primary) hypertension Category: Medical Qualifiers: Hypertension type: primary hypertension Qualified Code(s): I10 - Essential (primary) hypertension Plan: Blood pressure today is well-controlled. Continue current regimen. Advised monitoring blood pressures at home and keep a log of it. Ideally, blood pressure goal less than 130/80. (5) Hyperlipidemia: Code(s): E78.5 - Hyperlipidemia, unspecified Category: Medical Plan: As above. Advised on heart healthy diet, regular exercise, med compliance, and aggressive management of vascular risk factors. We will plan to follow up in 3 months. In the interim, patient will call the office with any concerns or change in symptoms. This note was generated using voice recognition software. While every effort has been made to ensure accuracy and proper consumer experience consultant, there may be occasional errors that could affect the content or meaning of the described symptoms. Orders: Orders Cardiac Rehab 05/15/25 Z95.1 - Presence of aortocoronary bypass graft AMB EKG-In Office 05/15/25 Z95.1 - Presence of aortocoronary bypass graft Medications: New furosemide (Lasix) 20 mg PO DAILY 90 tabs 0RF Coding Level of Care Code Est Pt Level 4 (30557) Complex EM visit Add On G2211 Diagnoses Coronary artery disease involving [place] coronary artery of [place] heart without angina pectoris I25.10 Coronary Disease-Associated Artery/Lesion type: [place] artery [place] vs. transplanted heart: [place] heart Associated angina: without angina S/P CABG (coronary artery bypass graft) Z95.1 S/P cardiac cath Z98.890 Primary hypertension I10 Hypertension type: primary hypertension Hyperlipidemia E78.5 CPT Codes EKG - CPT: 48574-[id number], Complete ([id number]) Time Spent (min) 35 Comment Time spent in reviewing the chart, test results, assessment, counseling and documentation.
[2025-05-15 13:33] VITALS: BP 100/50; PULSE 60; BMI 24.0
--- OUTSIDE RECORDS SUMMARY | 2025-05-15 15:51 | XMS_ITS | Encounter Summary ---
Author Organization [facility] Address [address] [place] [address] Care Team Providers Care Clinical Nurse Reviewer Name Role Phone Brett Velásquez MD Primary Care Provider Keisha Luna MD Primary Care Provider [phone] Brett Velásquez MD Primary Care Provider Reilly Stewart MD, PHD Unavailable Unava nmBrett Bailon MD Primary Care Provider Wayne Dickson Primary Care Provider [phone] Dafne Hilton MD Unavailable [phone] Desi Swenson NP Unavailable [phone] Encounter Details Date Type Department Care Team Description 03/31/2012 Pt. Non Urgent Medic al Question Adult Medicine [address] [address] Brett Velásquez MD Social History Tobacco Use [...] ADDIE LEWIS To: Brett Velásquez MD Sent: [facility] Mar 31, 2012 10:14 PM Subject: [...] Type Specialty Care Team Description 04/29/2027 Manager Business Operations Report Abstract, Provider documented as of this encounter Visit Diagnoses Not on filedocumented in this encounter Care Teams Clinical Nurse Reviewer Relationship Specialty Start Date End Date Brett Velásquez MD PCP - General Internal Medicine 10/29/11 06/19/15 Keisha Chavez MD [address] [place] [address] PCP - General Internal Medicine 06/20/15 04/20/16 Brett Velásquez MD PCP - General Internal Medicine 04/21/16 01/25/22 Brett Velásquez MD PCP - General Internal Medicine 01/26/22 02/15/22 Wayne Jaimes [address] [place] [address] PCP - General Internal Medicine 02/16/22 Reilly Baker MD, PHD [address] [place] [address] Surgeon Neurosurgery 01/20/22 Dafne Hilton MD [address] [place] [address] Specialist Cardiology 10/13/22 Desi Swenson NP [address] [place] [address] Cardiology 02/29/24 documented as of this encounter
--- OUTSIDE RECORDS SUMMARY | 2025-05-15 15:51 | XMS_ITS | Data Portability ---
Author Organization [place] - [facility], Allergy Address [address] [address] Care Team Providers Care Medical Billing Supervisor Name Role Phone SUMMER LOWE Primary [...] therap y referr al 2024 025 [email or web address] [facility], [address] [place] [address] [place], [address], 14:07:54 speech therap y referr al - Appt 05/26 @ 8:30am 2023 024 [facility], [address], 1[address], [place], [address], 09:38:44 Procedures None record ed. Surgeries None record ed. Imaging CT, neck, soft tissue , w/ contra st - Chroni c sore throat evalua te for neopla sm. 2024 025 [email or web address] [facility], [address], [address], [place], [address], 11:07:28 Medication Orders famoti dine 20 mg tablet 2024 025 [facility], [address] [place] [address], [address], 5 15:05:18 nystat in 100,00 0 unit/m L oral suspen sun 2023 024 [facility], [address] [place] [address], [address], 4 16:22:57 nystat in 100,00 0 unit/m L oral suspen sun 2023 024 [facility], [address] [place] [address], [address], 4 14:42:09 Patient TargetsNo targets recorded. Patient InstructionsNo instructions recorded. Reason for Referral Appt 05/26 @ 8:30am Referring Physician: Eneida Cherry, Otolaryngology, Encounter Date: 04/21/2024 Referring Physician: Eneida Cherry Otolaryngology, Encounter Date: 08/10/2024 Results Created Date Observation Date Name Description Value Unit Range Abnormal Flag Note LastModifiedBy Organization Detail LastModifiedTime 03/22/2003/22/2025 BUN BUN 14 mg/dL 5-25 Not Available [facility] U/S Dept [address] [place], [address], 03/22/2025 14:37:11 03/22/20 25 03/22/2025 BUN note See Report [facility], [address], [place], [place] [address] Not Available [facility]/S Dept [address] [place], [address], 03/22/2025 14:37:11 03/22/20 25 03/22/2025 CREAT ININE creatinine 1.01 mg/dL 0.70-1 .30 Not Available [facility]/S Dept [address], [place], [address], 03/22/2025 14:37:12 03/22/20 25 03/22/2025 CREAT ININE eGFR 80 mL/mi n/1.7 3m2 >=60 Calcu latio n based on the Chron ic Kidne y Disea se Epide miolo gy Colla borat ion (CKD- EPI) equat ion refit witho ut adjus tment for race. Not Available [facility]/S Dept [address] [place], [address], 03/22/2025 14:37:12 03/22/20 25 03/22/2025 CREAT ININE note See Report [facility], [address], [place], [place] [address] Not Available [facility]/S Dept [address] [place], [address], 03/22/2025 14:37:12 03/23/20 25 03/22/2025 CT, neck, soft tissu e, w/ contr ast See Note [facility] , a [facility] Name: ADDIE GARCIA Date of : 05/09/ 1956 Reason for Exam: CHRONI C PHARYN GITIS ,CHRON IC SORE THROAT Exam Date: 2024 [id number] EST Report Status : Final Orderi ng [...] Edit Transc ribed Date: 2024 16:[address] [facility] U/S Dept [address] [place], [address], 03/28/2025 15:08:58 Result Notes Documentation Provider Name and Address Organization Details Recorded Time Ct, Neck, Soft Tissue, W/ Contrast : See Note [facility], a member of [email or web address] Patient Name: ADDIE GARCIA Date of : 1955 Reason for Exam: CHRONIC PHARYNGITIS ,CHRONIC SORE THROAT Exam Date: 03/22/2025 [id number] EST Report Status: Final Ordering Provider: ENEIDA [...] Signed Date: 03/23/2025 16:34 ET Workstation ID: [id number] Transcribed By: Self Edit Transcribed Date: 03/23/2025 16:10 ET ENEIDA CHERRY MD [address] [place] [address], [id number], [facility] - [facility] 03/26/2025 09:19:42 Problems Name Problem SNOMED Code Status Onset Date Resolution Date Notes Provider Name and Address Organization Details Recorded Time Gastroeso phageal reflux disease without esophagit is 998053999 Active 2015 Gastro-es ophageal reflux disease without esophagit is; Note: Date Diagnosed : 07/22/2015 2:46 PM (K21.9) Not Available [facility] 4 02:19:18 Cough 07931072 Active 2015 Cough, unspecifi ed; Note: Changed from R05 to R05.9 ( 2 2:10 PM) , Date Diagnosed : 09/04/2015 3:10 PM (R05) Not Available [facility] 4 02:19:08 Paralysis of larynx 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, unilatera l; Note: Date Diagnosed : 12/12/2019 3:31 PM (J38.01) Not Available [facility] 4 02:18:19 Sensorine ural hearing loss of bilateral ears 511342532 Active 2019 Sensorine ural hearing loss, bilateral ; Note: Date Diagnosed : 02/26/2020 3:32 PM (H90.3) Note: Date Diagnosed : 02/26/2020 3:32 PM (H90.3) Not Available [facility] 4 00:53:14 Benign paroxysma l positiona l vertigo 501159507 Active 2019 Benign paroxysma l vertigo, left ear; Note: Date Diagnosed : 02/26/2020 3:32 PM (H81.12) Not Available [facility] 4 02:18:20 Stomatiti s 59270939 Active 2020 Oral thrush; Note: Date Diagnosed : 04/14/2021 11:22 AM (B37.0) Not Available [facility] 4 02:18:55 Candidias is of mouth 64344576 Active 2020 Oral thrush; Note: Date Diagnosed : 04/14/2021 11:22 AM (B37.0) Not Available [facility] 4 02:18:55 Dysphagia 57411395 Active 2022 Dysphagia , unspecifi ed; Note: Date Diagnosed : 10/27/2021 12:05 PM (R13.10) ; Start Date : 2 Other dysphagia ; Note: Date Diagnosed : 04/07/2023 1:44 PM (R13.19) Not Available [facility] 4 02:19:19 Oropharyn geal dysphagia 77198335 Active 2023 Dysphagia , oropharyn geal phase; Note: Date Diagnosed : 09/16/2023 1:19 PM (R13.12) Not Available [facility] 4 02:19:08 Hemoptysi s 18851312 Active 2023 ENEIDA CHERRY MD [address] [facility],[place] [address], [facility] [place], [address] , [place] - [facility] 4 14:33:59 Chronic sore throat 775360388 Active 2023 ENEIDA CHERRY MD [address] [facility],[place] [address], [facility] [place], [address] , [place] - [facility] 4 14:34:04 Chronic hoarsenes s 90537749340 05 Active 2023 ENEIDA CHERRY MD [address] [facility],[place] [address], [facility] [place], [address] , [place] [facility] 4 14:42:59 Problem Notes None recorded. Procedures Surgical History Date Name Laterality Status Provider Name and Address Organization Details Recorded Time 02/09/20 25 FFL_RE completed ENEIDA CHERRY MD [address] [facility],[place] [address], [place], [address], [facility] - [facility] 02/08/2025 14:50:49 08/10/19 25 FFL_RE completed ENEIDA CHERRY MD 100 [facility],[place] [address], [place], [address], [place] - [facility] 08/10/2024 15:02:15 04/21/20 24 FFL_RE completed ENEIDA CHERRY MD [address] [place] [address], [address], [place] - [facility] 04/21/2024 14:41:39 transurethral prostatectomy completed Bibi Neal [place] - [facility] 05/10/2024 14:05:40 subtotal thyroidectomy completed Bibi Neal [place] - [facility] 05/10/2024 14:05:53 Imaging Results None recorded. Procedure Notes None recorded. Medical Equipment None Reported. Allergies No known drug allergies Medications Name Sig Start Date Stop Date Status Note LastModified by Organization Details LastModified Time losartan 50 mg tablet 05/06 completed Medicati on ID: [id number] B rand Name: losartan Send Method: E-Prescr [...] gram tablet 05/06 completed Medicati on ID: [id number] D uration Value: 7 Brand Name: valacycl ovir Sen d Method: E-Prescr ibed Sub s Allowed: subs OK Medic ationGen ericName : valacycl ovir Not Available Not Available Not Available sucralfat e 100 mg/mL oral suspensio n TAKE 10 ML BY MOUTH 4 TIMES DAILY 10/26 /2024 completed Not Available Not Available Not Available [...] mucosal jelly 05/10 completed Medicati on ID: [id number] D uration Value: 14 Brand Name: lidocain [...] mg capsule 05/06 completed Medicati on ID: [id number] D uration Value: 90 Brand Name: tamsulos in Send Method: E-Prescr ibed Sub s Allowed: subs OK Speci al Instruct ion: TAKE ONE CAPSULE DAILY Me dication GenericN jay: tamsulos in Not Available Not Available Not Available pantopraz ole 40 mg tablet,de layed release 07/12 completed Medicati on ID: [id number] D uration Value: 30 Brand Name: pantopra [...] by mouth 07/12 completed Medicati on ID: [id number] D uration Value: 30 Prescri bed By [...] oral powder 05/10 completed Medicati on ID: [id number] D uration Value: 30 Brand Name: polyethy [...] layed release 12/11 completed Medicati on ID: [id number] Jennifer bar By Name: [address], [...] both nostrils 10/17 completed Medicati on ID: [id number] Jennifer bar By Name: [address], [...] Weaver [place] - [facility] 08/10/2024 14:29:36 Date Recorded Body height Body mass index (BMI) Body weight Provider Name and Address Organization Details Last Updated DateTime 02/08/2025 167.64 cm 27 kg/m2 31409.93 g Aakash Weaver [place] - [facility] 02/08/2025 14:31:52 Date Recorded Body height Body mass index (BMI) Body weight Provider Name and Address Organization Details Last Updated DateTime 04/21/2024 167.64 cm 27 kg/m2 76777.93 g Aakash Weaver [facility] 04/21/2024 14:00:43 Date Recorded Body height Body weight Provider Name and Address Organization Details Last Updated DateTime 05/10/2024 167.64 cm 83993.93 g Bibi Neal [place] - [facility] 05/10/2024 14:01:54 Social History None recorded. Functional Status None recorded. Mental Status None recorded. Family History Nothing Reported. Medical History Condition Response Hypertension Y Sleep Disorder Y GERD/Reflux Y Past Encounters Encounter ID Performer Location Encounter Start Date Encounter Closed Date Diagnosis/Indication Diagnosis SNOMED-CT Code Diagnosis ICD10 Code Diagnosis IMO Codes Diagnosis Note [id number] ENEIDA CHERRY MD [facility] [address] [address] 04/21/2024 13:44:06 04/21/2024 15:41:33 Hemoptysis 09652301 R04.2 resolved. laryngosco py negative today for bleeding Chronic sore throat 2754 96151 J31.2 likely due to thrush. Gastroesop hageal reflux disease without esophagitis 366560105 K21.9 continue esomeprazo le Candidiasis of mouth 797 41616 B37.0 FFL notable for montez in base of tongue. LIkely secondary to steroid inhalers. Will treat with nystatin. I asked him to call if not improved. No tumors on laryngosoc py. Chronic hoarseness 31888 61412 105 R49.0 will make voice therapy referral to [facility] [id number] CHENG IBARRA PA-C [facility] [address] [address] 05/10/2024 13:45:35 05/10/2024 15:10:38 Candidiasis of mouth 76471801 B37.0 Chronic hoarseness 26792 26798 105 R49.0 Chronic sore throat 2754 95774 J31.2 Gastroesop hageal reflux disease without esophagitis 199525027 K21.9 [id number] ENEIDA CHERRY MD [facility] [address] [address] 08/10/2024 13:56:29 08/10/2024 15:05:58 Chronic sore throat 390154748 J31.2 no evidence of thrush. he has breakthrou gh heartburn and I think the soreness is due to LPR. I will add dual therapy for reflux with famotidine in addition to his PPI. Gastroesop hageal reflux disease without esophagitis 334447761 K21.9 begin dual thearpy Candidiasis of mouth 797 96729 B37.0 resolved Chronic hoarseness 70098 04527 105 R49.0 will make voice therapy referral to [facility] since he could not be seen at [facility] no vocal cord lesions. [id number] ENEIDA CHERRY MD [facility] [address] [place] [address] 02/08/2025 14:21:54 02/08/2025 15:05:34 Chronic sore throat 041326587 J31.2 He did not improve with dual PPI therapy and I recommend a CT of the neck with contrast to exclude any neoplastic process. Laryngosco py today showed changes consistent with reflux including erythema and cobbleston ing. I did not see any tumors. Gastroesop hageal reflux disease without esophagitis 959570848 K21.9 He can stop famotidine since he did not benefit and just remain on his PPI. Chronic hoarseness 73370 71262 105 R49.0 No vocal cord lesions on [...] Ayala Member ID Guarantor Name 02/11/2025 1 [facility] Addie Garcia [id number] Addie Garcia Notes Date Note Type Note [...] in September 2020. ENEIDA CHERRY MD 100 [facility],[address], [address], [facility] - [facility] 04/21/2024 14:43:45 05/10/2024 text/html ROS as [...] FL. Normal MBS. VELASQUEZ QUINTERO MD 100 [facility],[place] [address], [place], [address], [facility] - [facility] 05/11/2024 12:34:14 08/10/2024 text/html ROS as [...] in September 2020. ENEIDA CHERRY MD 100 [facility],[address], [address], [place] - [facility] 08/10/2024 15:05:10 02/08/2025 text/html ROS as noted in the HPI He has a history of hemoptysis which resolved. He has been evaluated by us for laryngoscopy and montez was noted and was treated twice for this with minimal benefit. He continues to have some throat pain and hoarseness. I referred for voice and he was seen at [facility] 01/24. Had an MBS 08/2023 which did not show aspiration. He does not smoke. He began dual PPI therapy after our last visit. He does not feel much improvement. 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 VC paralysis resolved on last FOL in September 2020. ENEIDA CHERRY MD 100 [facility],[address], [address], [place] - [facility] [place] 02/08/2025 15:05:38
--- OUTSIDE RECORDS SUMMARY | 2025-05-15 15:51 | XMS_ITS | Encounter Summary ---
Author Organization [facility] Address [address] [place] [address] 7 [place] [address] Care Team Providers Care Oracle Financial Application Developer Name Role Phone Unavailable Primary Care Provider Unavailabl e Encounter Details Date Type Department Care Team (Latest Contact Info) Description 01/15/2021 Abstract [facility] CONVERSIONS Dental, Provider, DDS Social [...]
--- OUTSIDE RECORDS SUMMARY | 2025-05-15 15:51 | XMS_ITS | Encounter Summary ---
Author Organization [facility] Address [address] [facility] [place] [address] Care Team Providers Care Director Of Global Sales Name Role Phone Keisha Chavez MD Primary Care Provider [phone] Brett Velásquez MD Primary Care Provider Reilly Stewart MD, PHD Unavailable Unama ilBrett Bailon MD Primary Care Provider Wayne Dickson Primary Care Provider [phone] Dafne Hilton MD Unavailable [phone] Desi Swenson NP Unavailable [phone] Encounter Details Date Type Department Care Team Description 11/05/2015 Release of Information Medical Records [address] [place] [address] Abstract, Provider Social History Tobacco Use Types [...] Type Specialty Care Team Description 04/29/2027 Press Tender Long Goods Report Abstract, Provider documented as of this encounter Visit Diagnoses Not on filedocumented in this encounter Care Teams Director Of Global Sales Relationship Specialty Start Date End Date Keisha Chavez MD [address] [place] [address] PCP - General Internal Medicine 06/20/15 04/20/16 Brett Velásquez MD [address] [place] [address] PCP - General Internal Medicine 04/21/16 01/25/22 Brett Velásquez MD [address] [place] [address] PCP - General Internal Medicine 01/26/22 02/15/22 Wayne Jaimes [address] [place] [address] PCP - General Internal Medicine 02/16/22 Reilly Baker MD, PHD [address] [place] [address] Surgeon Neurosurgery 01/20/22 Dafne Hilton MD [address] [place] [address] Specialist Cardiology 10/13/22 Desi Swenson NP [address] [place] [address] Cardiology 02/29/24 documented as of this encounter
--- OUTSIDE RECORDS SUMMARY | 2025-05-15 15:51 | XMS_ITS | Clinical Summary ---
Author Organization [employer] Address [address] [place] [address] 7 [place] [address] Care Team Providers Care Glass Installer Name Role Phone Unavailable Primary Care Provider [...]
--- OUTSIDE RECORDS SUMMARY | 2025-05-15 15:51 | XMS_ITS | Encounter Summary ---
Author Organization [facility] Address [address] [facility] [place] [address] Care Team Providers Care Research Physicist Name Role Phone Keisha Chavez MD Primary Care Provider [phone] Brett Velásquez MD Primary Care Provider Reilly Stewart MD, PHD Unavailable Unaak ilBrett Bailon MD Primary Care Provider Wayne Dickson Primary Care Provider [phone] Dafne Hilton MD Unavailable [phone] Desi Swenson NP Unavailable Encounter Details Date Type Department Care Team Description 06/24/2015 [employer] Consult[employer] Architect Report Medical Records [address] [place] [address] Aleksandar Huggins MD Social History Tobacco Use [...] Date Type Specialty Care Team Description 04/29/2027 [employer] Architect Report Abstract, Provider documented as of this encounter Visit Diagnoses Not on filedocumented in this encounter Care Teams Research Physicist Relationship Specialty Start Date End Date Keisha Chavez MD [address] [place] [address] PCP - General Internal Medicine 06/20/15 04/20/16 Brett Velásquez MD [address] [place] [address] PCP - General Internal Medicine 04/21/16 01/25/22 Brett Velásquez MD [address] [place] [address] PCP - General Internal Medicine 01/26/22 02/15/22 Wayne Jaimes [address] [place] [address] PCP - General Internal Medicine 02/16/22 Reilly Baker MD, PHD [address] [place] [address] Surgeon Neurosurgery 01/20/22 Dafne Hilton MD [address] [place] [address] Specialist Cardiology 10/13/22 Desi Swenson NP [address] [place] [address] Cardiology 02/29/24 documented as of this encounter
--- OUTSIDE RECORDS SUMMARY | 2025-05-15 15:51 | XMS_ITS | Encounter Summary ---
Author Organization [facility] Address [address] [place] [address] Care Team Providers Care Analytics Consultant Name Role Phone Brett Velásquez MD Primary Care Provider Keisha Luna MD Primary Care Provider [phone] Brett Velásquez MD Primary Care Provider Reilly Stewart MD, PHD Unavailable Unava ilBrett Bailon MD Primary Care Provider Wayne Dickson Primary Care Provider [phone] Dafne Hilton MD Unavailable [phone] Desi Swenson NP Unavailable [phone] Encounter Details Date Type Department Care Team Description 04/01/2015 Executive Producer Report Medical Records [address] [place] [address] Olivia Harris MD [address] [place] [address] [address] [place] [address] Social History Tobacco Use Types Packs/Day Years [...] Date Type Specialty Care Team Description 04/29/2027 Executive Producer Report Abstract, Provider documented as of this encounter Visit Diagnoses Not on filedocumented in this encounter Care Teams Analytics Consultant Relationship Specialty Start Date End Date Brett Velásquez MD PCP - General Internal Medicine 10/29/11 06/19/15 Keisha Chavez MD [address] [place] [address] PCP - General Internal Medicine 06/20/15 04/20/16 Brett Velásquez MD PCP - General Internal Medicine 04/21/16 01/25/22 Brett Velásquez MD PCP - General Internal Medicine 01/26/22 02/15/22 Wayne Jaimes [address] [place] [address] PCP - General Internal Medicine 02/16/22 Reilly Baker MD, PHD [address] [place] [address] Surgeon Neurosurgery 01/20/22 Dafne Hilton MD [address] [place] [address] Specialist Cardiology 10/13/22 Desi Swenson NP [address] [place] [address] Cardiology 02/29/24 documented as of this encounter
--- OUTSIDE RECORDS SUMMARY | 2025-05-15 15:51 | XMS_ITS | Encounter Summary ---
Author Organization [facility] Address [address] [place] [address] Care Team Providers Care Metalsmith Helper Name Role Phone Brett Velásquez MD Primary Care Provider Keisha Luna MD Primary Care Provider [phone] Brett Velásquez MD Primary Care Provider Reilly Stewart MD, PHD Unavailable Unava ilable Brett Velásquez MD Primary Care Provider Wayne Dickson Primary Care Provider [phone] Dafne Hilton MD Unavailable [phone] Desi Swenson NP Unavailable [phone] Encounter Details Date Type Department Care Team Description 06/28/2012 Outside Property Agent Report Medical Records [address] [place] [address] Shaquille Chandra Social History Tobacco Use Types [...] Date Type Specialty Care Team Description 04/29/2027 Outside Property Agent Report Abstract, Provider documented as of this encounter Visit Diagnoses Not on filedocumented in this encounter Care Teams Metalsmith Helper Relationship Specialty Start Date End Date Brett Velásquez MD PCP - General Internal Medicine 10/29/11 06/19/15 Keisha Chavez MD [address] [place] [address] PCP - General Internal Medicine 06/20/15 04/20/16 Brett Velásquez MD PCP - General Internal Medicine 04/21/16 01/25/22 Brett Velásquez MD PCP - General Internal Medicine 01/26/22 02/15/22 Wayne Jaimes [address] [place] [address] PCP - General Internal Medicine 02/16/22 Reilly Baker MD, PHD [address] [place] [address] Surgeon Neurosurgery 01/20/22 Dafne Hilton MD [address] [place] [address] Specialist Cardiology 10/13/22 Desi Swenson NP [address] [place] [address] Cardiology 02/29/24 documented as of this encounter
--- OUTSIDE RECORDS SUMMARY | 2025-05-15 15:51 | XMS_ITS | Encounter Summary ---
Author Organization [facility] Address [address] [place] [address] Care Team Providers Care Preschool Lead Teacher Name Role Phone Brett Velásquez MD Primary Care Provider Keisha Luna MD Primary Care Provider [phone] Brett Velásquez MD Primary Care Provider Reilly Stewart MD, PHD Unavailable Unamountain point medical centerBrett Bailon MD Primary Care Provider Wayne Dickson Primary Care Provider [phone] Dafne Hilton MD Unavailable [phone] Desi Swenson NP Unavailable [phone] Reason for Visit * Reason Onset Date Comments My Chart Appointment 02/04/2015 Encounter Details Date Type Department Care Team Description 02/04/2015 Telephone Adult Medicine [address] [address] Brett Velásquez MD My Chart Appointment Social [...] Date Type Specialty Care Team Description 04/29/2027 Fleet Director Report Abstract, Provider documented as of this encounter Visit Diagnoses Not on filedocumented in this encounter Care Teams Preschool Lead Teacher Relationship Specialty Start Date End Date Brett Velásquez MD PCP - General Internal Medicine 10/29/11 06/19/15 Keisha Chavez MD [address] [place] [address] PCP - General Internal Medicine 06/20/15 04/20/16 Brett Velásquez MD PCP - General Internal Medicine 04/21/16 01/25/22 Brett Velásquez MD PCP - General Internal Medicine 01/26/22 02/15/22 Wayne Jaimes [address] [place] [address] PCP - General Internal Medicine 02/16/22 Reilly Baker MD, PHD [address] [place] [address] Surgeon Neurosurgery 01/20/22 Dafne Hilton MD [address] [place] [address] Specialist Cardiology 10/13/22 Desi Swenson NP [address] [place] [address] Cardiology 02/29/24 documented as of this encounter
--- OUTSIDE RECORDS SUMMARY | 2025-05-15 15:51 | XMS_ITS | Encounter Summary ---
Author Organization [facility] Address [address] [place] [address] Care Team Providers Care Store Sales Consultant Name Role Phone Reilly Baker MD, PHD Unavailable Unava Wayne Blackman Primary Care Provider [phone] Dafne Hilton MD Unavailable [phone] Desi Swenson NP Unavailable [phone] Encounter Details Date Type Department Care Team Description 04/07/2022 SCAN Medical Records [address] [place] [address] Abstract, Provider Social History Tobacco Use Types [...] Date Type Specialty Care Team Description 04/29/2027 Rural Route Carrier Report Abstract, Provider documented as of this encounter Procedures Procedure Name Priority Date/Time Associated Diagnosis Comments OUTSIDE LAB Routine 04/07/2022 documented in this encounter Results * OUTSIDE LAB (04/07/2022) Provider Default LAB documented in this encounter Visit Diagnoses Not on filedocumented in this encounter Care Teams Store Sales Consultant Relationship Specialty Start Date End Date Wayne Jaimes [address] [place] [address] PCP - General Internal Medicine 02/16/22 Reilly Baker MD, PHD Surgeon Neurosurgery 01/20/22 Dafne Hilton MD [address] [place] [address] Specialist Cardiology 10/13/22 Desi Swenson NP [address] [place] [address] Cardiology 02/29/24 documented as of this encounter
--- OUTSIDE RECORDS SUMMARY | 2025-05-15 15:51 | XMS_ITS | Encounter Summary ---
Author Organization [facility] Address [address] [place] [address] Care Team Providers Care Flyer Builder Name Role Phone Reilly Baker MD, PHD Unavailable Unava ilable Wayne Jaimes Primary Care Provider Dafne Hilton MD Unavailable [phone] Desi Swenson NP Unavailable [phone] Encounter Details Date Type Department Care Team Description 04/08/2022 Pt. Non Urgent Medical Question Adult Medicine [address] [address] Wayne Jaimes [address] [place] [address] Social History Tobacco Use Types Packs/Day Years [...] Type Specialty Care Team Description 04/29/2027 Customer Supply Chain Analyst Report Abstract, Provider documented as of this encounter Visit Diagnoses Not on filedocumented in this encounter Care Teams Flyer Builder Relationship Specialty Start Date End Date Erinarin Wayne Dowell [address] [place] [address] PCP - General Internal Medicine 02/16/22 Reilly Baker MD, PHD Surgeon Neurosurgery 01/20/22 Dafne Hilton MD [address] [place] [address] Specialist Cardiology 10/13/22 Desi Swenson NP [address] [place] [address] Cardiology 02/29/24 documented as of this encounter
--- OUTSIDE RECORDS SUMMARY | 2025-05-15 15:51 | XMS_ITS | Encounter Summary ---
Author Organization [facility] Address [address] [facility] [place] [address] Care Team Providers Care Automatic Lehr Operator Name Role Phone Keisha Chavez MD Primary Care Provider [phone] Brett Velásquez MD Primary Care Provider Reilly Stewart MD, PHD Unavailable Unama ilBrett Bailon MD Primary Care Provider Wayne Dickson Primary Care Provider [phone] Dafne Hilton MD Unavailable [phone] Desi Swenson NP Unavailable [phone] Encounter Details Date Type Department Care Team Description 09/18/2015 Business Doc Medical Records [address] [place] [address] Abstract, Provider Social History Tobacco Use Types [...] Date Type Specialty Care Team Description 04/29/2027 Bulldozer Engineer Report Abstract, Provider documented as of this encounter Visit Diagnoses Not on filedocumented in this encounter Care Teams Automatic Lehr Operator Relationship Specialty Start Date End Date Keisha Chavez MD [address] [place] [address] PCP - General Internal Medicine 06/20/15 04/20/16 Brett Velásquez MD [address] [place] [address] PCP - General Internal Medicine 04/21/16 01/25/22 Brett Velásquez MD [address] [place] [address] PCP - General Internal Medicine 01/26/22 02/15/22 Wayne Jaimes [address] [place] [address] PCP - General Internal Medicine 02/16/22 Reilly Baker MD, PHD [address] [place] [address] Surgeon Neurosurgery 01/20/22 Dafne Hilton MD [address] [place] [address] Specialist Cardiology 10/13/22 Desi Swenson NP [address] [place] [address] Cardiology 02/29/24 documented as of this encounter
--- OUTSIDE RECORDS SUMMARY | 2025-05-15 15:51 | XMS_ITS | Encounter Summary ---
Author Organization [facility] Address [address] [place] [address] Care Team Providers Care Analysis Analyst Name Role Phone Brett Velásquez MD Primary Care Provider Keisha Luna MD Primary Care Provider [phone] Brett Velásquez MD Primary Care Provider Reilly Stewart MD, PHD Unavailable Unava ilBrett Bailon MD Primary Care Provider Wayne Dickson Primary Care Provider [phone] Dafne Hilton MD Unavailable [phone] Desi Swenson NP Unavailable [phone] Encounter Details Date Type Department Care Team Description 02/06/2015 Boarder Steam Report Medical Records [address] [place] [address] [facility] [address] [place] [address] Social History Tobacco Use Types Packs/Day Years [...] Date Type Specialty Care Team Description 04/29/2027 Boarder Steam Report Abstract, Provider documented as of this encounter Visit Diagnoses Not on filedocumented in this encounter Care Teams Analysis Analyst Relationship Specialty Start Date End Date Brett Velásquez MD PCP - General Internal Medicine 10/29/11 06/19/15 Keisha Chavez MD [address] [place], [place] [address] PCP - General Internal Medicine 06/20/15 04/20/16 Brett Velásquez MD PCP - General Internal Medicine 04/21/16 01/25/22 Brett Velásquez MD PCP - General Internal Medicine 01/26/22 02/15/22 Wayne Jaimes [address] [place] [address] PCP - General Internal Medicine 02/16/22 Reilly Baker MD, PHD [address] [place] [address] Surgeon Neurosurgery 01/20/22 Dafne Hilton MD [address] [place] [address] Specialist Cardiology 10/13/22 Desi Swenson NP [address] [place] [address] Cardiology 02/29/24 documented as of this encounter
--- OUTSIDE RECORDS SUMMARY | 2025-05-15 15:51 | XMS_ITS | Encounter Summary ---
Author Organization [facility] Address [address] [place] [address] Care Team Providers Care Tube Room Cashier Name Role Phone Brett Velásquez MD Primary Care Provider Reilly Stewart MD, PHD Unavailable Unava ilBrett Bailon MD Primary Care Provider Wayne Dickson Primary Care Provider Dafne Hilton MD Unavailable [phone] Desi Swenson NP Unavailable [phone] Encounter Details Date Type Department Care Team Description 01/15/2020 [facility] Medical Records [address] [place] [address] [facility] Social History Tobacco Use Types Packs/Day [...] Date Type Specialty Care Team Description 04/29/2027 Lasting Room Machine Operator Report Abstract, Provider documented as of this encounter Visit Diagnoses Not on filedocumented in this encounter Care Teams Tube Room Cashier Relationship Specialty Start Date End Date Brett Velásquez MD PCP - General Internal Medicine 04/21/16 01/25/22 Brett Velásquez MD PCP - General Internal Medicine 01/26/22 02/15/22 Wayne Jaimes [address] [place] [address] PCP - General Internal Medicine 02/16/22 Reilly Baker MD, PHD Surgeon Neurosurgery 01/20/22 Dafne Hilton MD [address] [place] [address] Specialist Cardiology 10/13/22 Desi Swenson NP [address] [place] [address] Cardiology 02/29/24 documented as of this encounter
--- OUTSIDE RECORDS SUMMARY | 2025-05-15 15:51 | XMS_ITS | Encounter Summary ---
Author Organization [facility] Address [address] [place] [address] Care Team Providers Care Supervisor Kosher Dietary Service Name Role Phone Reilly Baker MD, PHD Unavailable Unava ilWayne Osborne Primary Care Provider [phone] Dafne Hilton MD Unavailable [phone] Desi Swenson NP Unavailable [phone] Encounter Details Date Type Department Care Team Description 04/15/2022 SCAN [facility] [address] [facility] [address] [place] [id number] Ena Whipple PA-C [address] [address] Social History Tobacco Use Types Packs/Day Years [...] Type Specialty Care Team Description 04/29/2027 Car Repairer Pullman Report Abstract, Provider documented as of this encounter Visit Diagnoses Not on filedocumented in this encounter Care Teams Supervisor Kosher Dietary Service Relationship Specialty Start Date End Date Wayne Jaimes [address] [place] [address] PCP - General Internal Medicine 02/16/22 Reilly Baker MD, PHD Surgeon Neurosurgery 01/20/22 Dafne Hilton MD [address] [place] [address] Specialist Cardiology 10/13/22 Desi Swenson NP [address] [place], [place] [address] Cardiology 02/29/24 documented as of this encounter
--- OUTSIDE RECORDS SUMMARY | 2025-05-15 15:51 | XMS_ITS | Encounter Summary ---
Author Organization [facility] Address [address] [place] [address] Care Team Providers Care Antichecking Iron Worker Name Role Phone Brett Velásquez MD Primary Care Provider Keisha Luna MD Primary Care Provider [phone] Brett Velásquez MD Primary Care Provider Reilly Stewart MD, PHD Unavailable Unava ilable Brett Velásquez MD Primary Care Provider Wayne Dickson Primary Care Provider [phone] Dafne Hilton MD Unavailable [phone] Desi Swenson NP Unavailable [phone] Encounter Details Date Type Department Care Team Description 10/05/2011 Hospital Medical Records [address] [place] [address] Manuel White MD Social History Tobacco Use [...] Date Type Specialty Care Team Description 04/29/2027 Maintenance Associate Report Abstract, Provider documented as of this encounter Visit Diagnoses Not on filedocumented in this encounter Care Teams Antichecking Iron Worker Relationship Specialty Start Date End Date Brett Velásquez MD PCP - General Internal Medicine 10/29/11 06/19/15 Keisha Chavez MD [address] [place] [address] PCP - General Internal Medicine 06/20/15 04/20/16 Brett Velásquez MD PCP - General Internal Medicine 04/21/16 01/25/22 Brett Velásquez MD PCP - General Internal Medicine 01/26/22 02/15/22 Wayne Jaimes [address] [place] [address] PCP - General Internal Medicine 02/16/22 Reilly Baker MD, PHD [address] [place] [address] Surgeon Neurosurgery 01/20/22 Dafne Hilton MD [address] [place] [address] Specialist Cardiology 10/13/22 Desi Swenson NP [address] [place] [address] Cardiology 02/29/24 documented as of this encounter
--- OUTSIDE RECORDS SUMMARY | 2025-05-15 15:51 | XMS_ITS | Encounter Summary ---
Author Organization [facility] Address [address] [place] [address] Care Team Providers Care Security Infrastructure Engineer Name Role Phone Brett Velásquez MD Primary Care Provider Keisha Luna MD Primary Care Provider [phone] Brett Velásquez MD Primary Care Provider Reilly Stewart MD, PHD Unavailable Unava ilable Brett Velásquez MD Primary Care Provider Wayne Dickson Primary Care Provider [phone] Dafne Hilton MD Unavailable [phone] Desi Swenson NP Unavailable [phone] Encounter Details Date Type Department Care Team Description 05/17/2012 Family Consumer Science Teacher Report Medical Records [address] [place] [address] Shaquille Chandra Social History Tobacco Use Types [...] Type Specialty Care Team Description 04/29/2027 Family Consumer Science Teacher Report Abstract, Provider documented as of this encounter Visit Diagnoses Not on filedocumented in this encounter Care Teams Security Infrastructure Engineer Relationship Specialty Start Date End Date Brett Velásquez MD PCP - General Internal Medicine 10/29/11 06/19/15 Keisha Chavez MD [address] [place] [address] PCP - General Internal Medicine 06/20/15 04/20/16 Brett Velásquez MD PCP - General Internal Medicine 04/21/16 01/25/22 Brett Velásquez MD PCP - General Internal Medicine 01/26/22 02/15/22 Wayne Jaimes [address] [place] [address] PCP - General Internal Medicine 02/16/22 Reilly Baker MD, PHD [address] [place] [address] Surgeon Neurosurgery 01/20/22 Dafne Hilton MD [address] [place] [address] Specialist Cardiology 10/13/22 Desi Swenson NP [address] [place] [address] Cardiology 02/29/24 documented as of this encounter
--- OUTSIDE RECORDS SUMMARY | 2025-05-15 15:51 | XMS_ITS | Encounter Summary ---
Author Organization [facility] Address [address] [place] [address] 7 [place] [address] Care Team Providers Care Licensed Prosthetist/Orthotist Name Role Phone Unavailable Primary Care Provider Unavailabl e Encounter Details Date Type Department Care Team (Latest Contact Info) Description 01/23/2022 Abstract [facility] CONVERSIONS Dental, Provider, DDS Social History [...]
--- OUTSIDE RECORDS SUMMARY | 2025-05-15 15:52 | XMS_ITS | Encounter Summary ---
Author Organization [facility] Address [address] [place] [address] Care Team Providers Care Veterinarian Poultry Name Role Phone Brett Velásquez MD Primary Care Provider Reilly Stewart MD, PHD Unavailable Unava ilBrett Bailon MD Primary Care Provider Wayne Dickson Primary Care Provider [phone] Dafne Hilton MD Unavailable [phone] Desi Swenson NP Unavailable Encounter Details Date Type Department Care Team Description 02/01/2018 Customer Engineering Specialist Report Medical Records [address] [place] [address] Rehab., Tien Social History Tobacco Use Types [...] Type Specialty Care Team Description 04/29/2027 Customer Engineering Specialist Report Abstract, Provider documented as of this encounter Visit Diagnoses Not on filedocumented in this encounter Care Teams Veterinarian Poultry Relationship Specialty Start Date End Date Brett Velásquez MD PCP - General Internal Medicine 04/21/16 01/25/22 Brett Velásquez MD PCP - General Internal Medicine 01/26/22 02/15/22 Wayne Jaimes [address] [place] [address] PCP - General Internal Medicine 02/16/22 Reilly Baker MD, PHD Surgeon Neurosurgery 01/20/22 Dafne Hilton MD [address] [place] [address] Specialist Cardiology 10/13/22 Desi Swenson NP [address] [place] [address] Cardiology 02/29/24 documented as of this encounter
--- OUTSIDE RECORDS SUMMARY | 2025-05-15 15:52 | XMS_ITS | Encounter Summary ---
Author Organization [facility] Address [address] [place] [address] Care Team Providers Care Manager Search Engine Name Role Phone Brett Velásquez MD Primary Care Provider Reilly Stewart MD, PHD Unavailable Unava ilBrett Bailon MD Primary Care Provider Wayne Dickson Primary Care Provider [phone] Dafne Hilton MD Unavailable [phone] Desi Swenson NP Unavailable [phone] Encounter Details Date Type Department Care Team Description 02/20/2020 [facility] Medical Records [address] [place] [address] Aleksandar Huggins MD Social History Tobacco Use [...] Type Specialty Care Team Description 04/29/2027 Outside Sales Representative Report Abstract, Provider documented as of this encounter Visit Diagnoses Not on filedocumented in this encounter Care Teams Manager Search Engine Relationship Specialty Start Date End Date Brett Velásquez MD PCP - General Internal Medicine 04/21/16 01/25/22 Brett Velásquez MD PCP - General Internal Medicine 01/26/22 02/15/22 Wayne Jaimes [address] [place] [address] PCP - General Internal Medicine 02/16/22 Reilly Baker MD, PHD Surgeon Neurosurgery 01/20/22 Dafne Hilton MD [address] [place] [address] Specialist Cardiology 10/13/22 Desi Swenson NP [address] [place] [address] Cardiology 02/29/24 documented as of this encounter
--- OUTSIDE RECORDS SUMMARY | 2025-05-15 15:52 | XMS_ITS | Encounter Summary ---
Author Organization [facility] Address [address] [place] [address] Care Team Providers Care Appliance Parts Counter Clerk Name Role Phone Reilly Baker MD, PHD Unavailable Unava ilable Wayne Jaimes Primary Care Provider [phone] Dafne Hilton MD Unavailable [phone] Desi Swenson NP Unavailable [phone] Encounter Details Date Type Department Care Team Description 01/04/2023 Walk In Clinic Visit Medical Records [address] [place] [address] Clinic, [facility] Walk-In [address] [place] [address] Social History Tobacco Use Types Packs/Day Years [...] Type Specialty Care Team Description 04/29/2027 Clinical Therapist Report Abstract, Provider documented as of this encounter Visit Diagnoses Not on filedocumented in this encounter Care Teams Appliance Parts Counter Clerk Relationship Specialty Start Date End Date Wayne Jaimes [address] [place] [address] PCP - General Internal Medicine 02/16/22 Reilly Baker MD, PHD Surgeon Neurosurgery 01/20/22 Dafne Hilton MD [address] [place] [address] Specialist Cardiology 10/13/22 Desi Swenson NP [address] [place] [address] Cardiology 02/29/24 documented as of this encounter
--- OUTSIDE RECORDS SUMMARY | 2025-05-15 15:52 | XMS_ITS | Encounter Summary ---
Author Organization [facility] Address [address] [place] [address] Care Team Providers Care Telephone Surveyor Name Role Phone Brett Velásquez MD Primary Care Provider Keisha Luna MD Primary Care Provider [phone] Brett Velásquez MD Primary Care Provider Reilly Stewart MD, PHD Unavailable Unava ilable Brett Velásquez MD Primary Care Provider Wayne Dickson Primary Care Provider [phone] Dafne Hilton MD Unavailable [phone] Desi Swenson NP Unavailable [phone] Encounter Details Date Type Department Care Team Description 10/11/2012 Semiconductor Wafers Marker Report Medical Records [address] [place] [address] Kareem Grier PA-C Social History Tobacco Use [...] Date Type Specialty Care Team Description 04/29/2027 Semiconductor Wafers Marker Report Abstract, Provider documented as of this encounter Visit Diagnoses Not on filedocumented in this encounter Care Teams Telephone Surveyor Relationship Specialty Start Date End Date Brett Velásquez MD PCP - General Internal Medicine 10/29/11 06/19/15 Keisha Chavez MD [address] [place] [address] PCP - General Internal Medicine 06/20/15 04/20/16 Brett Velásquez MD PCP - General Internal Medicine 04/21/16 01/25/22 Brett Velásquez MD PCP - General Internal Medicine 01/26/22 02/15/22 Wayne Jaimes [address] [place] [address] PCP - General Internal Medicine 02/16/22 Reilly Baker MD, PHD [address] [place] [address] Surgeon Neurosurgery 01/20/22 Dafne Hilton MD [address] [place] [address] Specialist Cardiology 10/13/22 Desi Swenson NP [address] [place] [address] Cardiology 02/29/24 documented as of this encounter
--- OUTSIDE RECORDS SUMMARY | 2025-05-15 15:52 | XMS_ITS | Encounter Summary ---
Author Organization [facility] Address [address] [place] [address] Care Team Providers Care Hydrographic Surveyor Name Role Phone Brett Velásquez MD Primary Care Provider Reilly Stewart MD, PHD Unavailable Unava ilBrett Bailon MD Primary Care Provider Wayne Dickson Primary Care Provider [phone] Dafne Hilton MD Unavailable [phone] Desi Swenson NP Unavailable [phone] Encounter Details Date Type Department Care Team Description 01/24/2020 Rosin Barrel Filler Report Medical Records [address] [place] [address] Aleksandar Huggins MD Social History Tobacco Use [...] Date Type Specialty Care Team Description 04/29/2027 Rosin Barrel Filler Report Abstract, Provider documented as of this encounter Visit Diagnoses Not on filedocumented in this encounter Care Teams Hydrographic Surveyor Relationship Specialty Start Date End Date Brett Velásquez MD PCP - General Internal Medicine 04/21/16 01/25/22 Brett Velásquez MD PCP - General Internal Medicine 01/26/22 02/15/22 Wayne Jaimes [address] [place] [address] PCP - General Internal Medicine 02/16/22 Reilly Baker MD, PHD Surgeon Neurosurgery 01/20/22 Dafne Hilton MD [address] [place] [address] Specialist Cardiology 10/13/22 Desi Swenson NP [address] [place] [address] Cardiology 02/29/24 documented as of this encounter
--- OUTSIDE RECORDS SUMMARY | 2025-05-15 15:52 | XMS_ITS | Encounter Summary ---
Author Organization [facility] Address [address] [place] [address] Care Team Providers Care Flatwork Ironer Name Role Phone Brett Velásquez MD Primary Care Provider Reilly Stewart MD, PHD Unavailable Unava Brett Villegas MD Primary Care Provider Wayne Dickson Primary Care Provider [phone] Dafne Hilton MD Unavailable [phone] Desi Swenson NP Unavailable [phone] Encounter Details Date Type Department Care Team Description 05/29/2020 Bran Mixer Report Medical Records [address] [place] [address] Aleksandar Huggins MD Social History Tobacco Use [...] Date Type Specialty Care Team Description 04/29/2027 Bran Mixer Report Abstract, Provider documented as of this encounter Visit Diagnoses Not on filedocumented in this encounter Care Teams Flatwork Ironer Relationship Specialty Start Date End Date Brett Velásquez MD PCP - General Internal Medicine 04/21/16 01/25/22 Brett Velásquez MD PCP - General Internal Medicine 01/26/22 02/15/22 Wayne Jaimes [address] [place] [address] PCP - General Internal Medicine 02/16/22 Reilly Baker MD, PHD Surgeon Neurosurgery 01/20/22 Dafne Hilton MD [address] [place] [address] Specialist Cardiology 10/13/22 Desi Swenson NP [address] [place], [place] [address] Cardiology 02/29/24 documented as of this encounter
--- OUTSIDE RECORDS SUMMARY | 2025-05-15 15:52 | XMS_ITS | Encounter Summary ---
Author Organization [facility] Address [address] [place] [address] Care Team Providers Care Copping Machine Operator Name Role Phone Brett Velásquez MD Primary Care Provider Reilly Stewart MD, PHD Unavailable UnaBrett Davis MD Primary Care Provider Wayne Dickson Primary Care Provider Dafne Hilton MD Unavailable [phone] Desi Swenson NP Unavailable [phone] Encounter Details Date Type Department Care Team Description 09/25/2020 Orders Only Physiatry - [address] [address] Sonny Abrams PA-C Social History Tobacco Use [...] Date Type Specialty Care Team Description 04/29/2027 Cashier Gambling Report Abstract, Provider documented as of this encounter Visit Diagnoses Not on filedocumented in this encounter Care Teams Copping Machine Operator Relationship Specialty Start Date End Date Brett Velásquez MD PCP - General Internal Medicine 04/21/16 01/25/22 Brett Velásquez MD PCP - General Internal Medicine 01/26/22 02/15/22 Wayne Jaimes [address] [place] [address] PCP - General Internal Medicine 02/16/22 Reilly Baker MD, PHD Surgeon Neurosurgery 01/20/22 Dafne Hilton MD [address] [place] [address] Specialist Cardiology 10/13/22 Desi Swenson NP [address] [place] [address] Cardiology 02/29/24 documented as of this encounter
--- OUTSIDE RECORDS SUMMARY | 2025-05-15 15:52 | XMS_ITS | Encounter Summary ---
Author Organization [facility] Address [address] [place] [address] Phone Care Team Providers Care Guidance And Control System Engineer Name Role Phone Vitor Mclean MD Primary Care Provider [phone] Encounter Details Date Type Department Care Team (Latest Contact Info) Description 01/31/2024 Transcribe Orders Virtual Department [address] [place] [address] Kevin Oliva PA [address] [place] [address] [place] [address] Gastroesophageal reflux disease, unspecified whether esophagitis present [...] modified barium swallow 11/14/2021 . OPERATORS: Paul Crwoley SUPERVISING PHYSICIAN: Brionna Menendez TECHNIQUE: Double contrast [...] present documented in this encounter Care Teams Guidance And Control System Engineer Relationship Specialty Start Date End Date Vitor Mclean MD [address] [place] [address] PCP - General Pulmonary Disease 12/14/19 documented as of this encounter Additional Source Comments The information contained in this document represents components of the legal health record. It is not the complete legal health record.[facility]
--- OUTSIDE RECORDS SUMMARY | 2025-05-15 15:52 | XMS_ITS | Encounter Summary ---
Author Organization [facility] Address [address] [place] [address] Care Team Providers Care Fiber Optic Central Office Installer Name Role Phone Reilly Baker MD, PHD Unavailable Unava ilable Wayne Jaimes Primary Care Provider [phone] Dafne Hilton MD Unavailable [phone] Desi Swenson NP Unavailable [phone] Encounter Details Date Type Department Care Team Description 09/07/2022 Cardio Clinician Report Medical Records [address] [place] [address] Vladislav Antunez DO Social History Tobacco Use [...] Date Type Specialty Care Team Description 04/29/2027 Cardio Clinician Report Abstract, Provider documented as of this encounter Visit Diagnoses Not on filedocumented in this encounter Care Teams Fiber Optic Central Office Installer Relationship Specialty Start Date End Date Wayne Jaimes [address] [place], [place] [phone] PCP - General Internal Medicine 02/16/22 Reilly Baker MD, PHD Surgeon Neurosurgery 01/20/22 Dafne Hilton MD [address] [place] [address] Specialist Cardiology 10/13/22 Desi Swenson NP [address] [place], [place] [id number] Cardiology 02/29/24 documented as of this encounter
--- OUTSIDE RECORDS SUMMARY | 2025-05-15 15:52 | XMS_ITS | Clinical Summary ---
Author Organization [facility] Address [address] [facility] [address] [place] [address] Phone Care Team Providers Care Table Saw Operator Name Role Phone Vitor Mclean MD Primary Care Provider [phone] Allergies No known active allergies Medications diclofenac [...] this topic Medical Devices Implanted Type Area Pick Up Operator Device Identifier Shelf Expiration Date Model / Serial / Lot Composite Augment 1.0 Cc Injectable Radiesse Vocal Cord Prolaryn Gel Nonpyrogenic - [id number] Implanted:Qty: 1 on 12/15/2019 by Vipin Cherry MD at [facility] Left: Vocal Cord [employer] 06/29/2021 [id number] / [id number] / [id number] Insurance MEDICARE REPLACEMENT MEDICARE REPLACEMENT MEDICARE REPLACEMENT MEDICARE REPLACEMENT MEDICARE REPLACEMENT MEDICARE REPLACEMENT Care Teams Table Saw Operator Relationship Specialty Start Date End Date Vitor Mclean MD [address] [place] [address] PCP - General Pulmonary Disease 12/14/19 Additional Source Comments The information contained in this document represents components of the legal health record. It is not the complete legal health record.[facility]
--- OUTSIDE RECORDS SUMMARY | 2025-05-15 15:52 | XMS_ITS | Encounter Summary ---
Author Organization [facility] Address [address] [place] [address] Care Team Providers Care Heater Installer Name Role Phone Brett Velásquez MD Primary Care Provider Keisha Luna MD Primary Care Provider [phone] Brett Velásquez MD Primary Care Provider Reilly Stewart MD, PHD Unavailable Unava ilable Brett Velásquez MD Primary Care Provider Wayne Dickson Primary Care Provider [phone] Dafne Hilton MD Unavailable [phone] Desi Swenson NP Unavailable [phone] Encounter Details Date Type Department Care Team Description 11/20/2013 Maintenance Trainer Report Medical Records [address] [place] [address] Neurosurgery, [address] [place] [address] Social History Tobacco Use Types Packs/Day Years [...] Type Specialty Care Team Description 04/29/2027 Maintenance Trainer Report Abstract, Provider documented as of this encounter Visit Diagnoses Not on filedocumented in this encounter Care Teams Heater Installer Relationship Specialty Start Date End Date Brett Velásquez MD PCP - General Internal Medicine 10/29/11 06/19/15 Keisha Chavez MD [address] [place] [address] PCP - General Internal Medicine 06/20/15 04/20/16 Brett Velásquez MD PCP - General Internal Medicine 04/21/16 01/25/22 Brett Velásquez MD PCP - General Internal Medicine 01/26/22 02/15/22 Wayne Jaimes [address] [place] [address] PCP - General Internal Medicine 02/16/22 Reilly Baker MD, PHD [address] [place] [address] Surgeon Neurosurgery 01/20/22 Dafne Hilton MD [address] [place] [address] Specialist Cardiology 10/13/22 Desi Swenson NP [address] [place] [address] Cardiology 02/29/24 documented as of this encounter
--- OUTSIDE RECORDS SUMMARY | 2025-05-15 15:52 | XMS_ITS | Encounter Summary ---
Author Organization [facility] Address [address] [place] [address] Care Team Providers Care Manager Area Name Role Phone Reilly Baker MD, PHD Unavailable Brett España MD Primary Care Provider MindivaWayne Conrad Primary Care Provider [phone] Dafne Hilton MD Unavailable [phone] Desi Swenson NP Unavailable [phone] Encounter Details Date Type Department Care Team Description 02/06/2022 SCAN [facility] Medical [facility] Neurosurgery [place] [address] [place] [phone] Reilly Baker MD, PHD Social History Tobacco [...] Date Type Specialty Care Team Description 04/29/2027 Boiling House Oiler Report Abstract, Provider documented as of this encounter Visit Diagnoses Not on filedocumented in this encounter Care Teams Manager Area Relationship Specialty Start Date End Date Brett Velásquez MD PCP - General Internal Medicine 01/26/22 02/15/22 Wayne Jaimes [address] [place] [address] PCP - General Internal Medicine 02/16/22 Reilly Baker MD, PHD Surgeon Neurosurgery 01/20/22 Dafne Hilton MD [address] [place] [address] Specialist Cardiology 10/13/22 Desi Swenson NP [address] [place], [place] [phone] Cardiology 02/29/24 documented as of this encounter
--- OUTSIDE RECORDS SUMMARY | 2025-05-15 15:52 | XMS_ITS | Encounter Summary ---
Author Organization [facility] Address [address] [place] [address] Care Team Providers Care Driver Service Technician Name Role Phone Brett Velásquez MD Primary Care Provider Reilly Stewart MD, PHD Unavailable Brett España MD Primary Care Provider Wayne Dickson Primary Care Provider Dafne Hilton MD Unavailable [phone] Desi Swenson NP Unavailable [phone] Encounter Details Date Type Department Care Team Description 06/25/2020 Orders Only Physiatry - [address] [address] Sonny Abrams PA-C Lumbar radiculitis (Primary Dx) [...] Type Specialty Care Team Description 04/29/2027 Heel Seater Report Abstract, Provider documented as of this encounter Visit Diagnoses Diagnosis Lumbar radiculitis- Primary Thoracic or lumbosacral neuritis or radiculitis, unspecified documented in this encounter Care Teams Driver Service Technician Relationship Specialty Start Date End Date Brett Velásquez MD PCP - General Internal Medicine 04/21/16 01/25/22 Brett Velásquez MD PCP - General Internal Medicine 01/26/22 02/15/22 Wayne Jaimes [address] [place] [address] PCP - General Internal Medicine 02/16/22 Reilly Baker MD, PHD Surgeon Neurosurgery 01/20/22 Dafne Hilton MD [address] [place] [address] Specialist Cardiology 10/13/22 Desi Swenson NP [address] [place] [address] Cardiology 02/29/24 documented as of this encounter
--- OUTSIDE RECORDS SUMMARY | 2025-05-15 15:52 | XMS_ITS | Encounter Summary ---
Author Organization [facility] Address [address] [place] [address] Care Team Providers Care Insulation Foreman Name Role Phone Reilly Baker MD, PHD Unavailable Unava Wayne Blackman Primary Care Provider Dafne Hilton MD Unavailable [phone] Desi Swenson NP Unavailable [phone] Encounter Details Date Type Department Care Team Description 10/13/2022 Telephone [facility] [address] [phone] Ankita Yanes MD [address] [id number] Social History Tobacco Use Types Packs/Day Years [...] Date Type Specialty Care Team Description 04/29/2027 Aerosol Supervisor Report Abstract, Provider documented as of this encounter Visit Diagnoses Not on filedocumented in this encounter Care Teams Insulation Foreman Relationship Specialty Start Date End Date Wayne Jaimes [address] [place] [address] PCP - General Internal Medicine 02/16/22 Reilly Baker MD, PHD Surgeon Neurosurgery 01/20/22 Dafne Hilton MD [address] [place] [address] Specialist Cardiology 10/13/22 Desi Swenson NP [address] [place] [address] Cardiology 02/29/24 documented as of this encounter
--- OUTSIDE RECORDS SUMMARY | 2025-05-15 15:52 | XMS_ITS | Encounter Summary ---
Author Organization [facility] Address [address] [place] [address] Care Team Providers Care Insurance Sales Producer Name Role Phone Brett Velásquez MD Primary Care Provider Reilly Stewart MD, PHD Unavailable Unava ilBrett Bailon MD Primary Care Provider Wayne Dickson Primary Care Provider [phone] Dafne Hilton MD Unavailable [phone] Desi Swenson NP Unavailable [phone] Encounter Details Date Type Department Care Team Description 08/06/2016 Release of Information Medical Records [address] [place] [address] Abstract, Provider Social History Tobacco Use Types [...] Date Type Specialty Care Team Description 04/29/2027 Custodial Manager Report Abstract, Provider documented as of this encounter Visit Diagnoses Not on filedocumented in this encounter Care Teams Insurance Sales Producer Relationship Specialty Start Date End Date Brett Velásquez MD PCP - General Internal Medicine 04/21/16 01/25/22 Brett Velásquez MD PCP - General Internal Medicine 01/26/22 02/15/22 Wayne Jaimes [address] [place] [address] PCP - General Internal Medicine 02/16/22 Reilly Baker MD, PHD Surgeon Neurosurgery 01/20/22 Dafne Hilton MD [address] [place] [address] Specialist Cardiology 10/13/22 Desi Swenson NP [address] [place] [address] Cardiology 02/29/24 documented as of this encounter
--- OUTSIDE RECORDS SUMMARY | 2025-05-15 15:52 | XMS_ITS | Encounter Summary ---
Author Organization [facility] Address [address] [place] [address] Care Team Providers Care Library Information Technician Name Role Phone Reilly Baker MD, PHD Unavailable Unava ilable Wayne Jaimes Primary Care Provider [phone] Dafne Hilton MD Unavailable [phone] Desi Swenson NP Unavailable [phone] Encounter Details Date Type Department Care Team Description 07/01/2022 Redevelopment Manager Report Medical Records [address] [place] [address] Maxwell Gordon MD Social History Tobacco Use [...] Date Type Specialty Care Team Description 04/29/2027 Redevelopment Manager Report Abstract, Provider documented as of this encounter Visit Diagnoses Not on filedocumented in this encounter Care Teams Library Information Technician Relationship Specialty Start Date End Date Wayne Jaimes [address] [place] [address] PCP - General Internal Medicine 02/16/22 Reilly Baker MD, PHD Surgeon Neurosurgery 01/20/22 Dafne Hilton MD [address] [place] [address] Specialist Cardiology 10/13/22 Desi Swenson NP [address] [place] [address] Cardiology 02/29/24 documented as of this encounter
--- OUTSIDE RECORDS SUMMARY | 2025-05-15 15:52 | XMS_ITS | Encounter Summary ---
Author Organization [facility] Address [address] [place] [address] Care Team Providers Care Geothermal System Installer Name Role Phone Reilly Baker MD, PHD Unavailable Unava ilWayne Osborne Primary Care Provider Dafne Hilton MD Unavailable [phone] Desi Swenson NP Unavailable [phone] Encounter Details Date Type Department Care Team Description 04/01/2022 SCAN [facility] 175 [facility] [address] [place] [phone] Ena Whiplpe PA-C [address] [address] Social History Tobacco Use Types Packs/Day Years [...] Date Type Specialty Care Team Description 04/29/2027 Stripper Latex Report Abstract, Provider documented as of this encounter Visit Diagnoses Not on filedocumented in this encounter Care Teams Geothermal System Installer Relationship Specialty Start Date End Date Wayne Jaimes [address] [place] [address] PCP - General Internal Medicine 02/16/22 Reilly Baker MD, PHD Surgeon Neurosurgery 01/20/22 Dafne Hilton MD [address] [place] [address] Specialist Cardiology 10/13/22 Desi Swenson NP [address] [place], [place] [phone] Cardiology 02/29/24 documented as of this encounter
--- OUTSIDE RECORDS SUMMARY | 2025-05-15 15:52 | XMS_ITS | Encounter Summary ---
Author Organization [facility] Address [address] [place] [address] Care Team Providers Care Verifier Operator Name Role Phone Reilly Baker MD, PHD Unavailable Unava ilable Wayne Jaimes Primary Care Provider [phone] Dafne Hilton MD Unavailable [phone] Desi Swenson NP Unavailable [phone] Encounter Details Date Type Department Care Team Description 09/30/2022 Borematic Operator Report Medical Records [address] [place] [address] Social History Tobacco Use Types Packs/Day Years [...] Date Type Specialty Care Team Description 04/29/2027 Borematic Operator Report Abstract, Provider documented as of this encounter Visit Diagnoses Not on filedocumented in this encounter Care Teams Verifier Operator Relationship Specialty Start Date End Date Wayne Jaimes [address] [place] [address] PCP - General Internal Medicine 02/16/22 Reilly Baker MD, PHD Surgeon Neurosurgery 01/20/22 Dafne Hilton MD [address] [place] [address] Specialist Cardiology 10/13/22 Desi Swenson NP [address] [place] [address] Cardiology 02/29/24 documented as of this encounter
--- OUTSIDE RECORDS SUMMARY | 2025-05-15 15:52 | XMS_ITS | Encounter Summary ---
Author Organization [facility] Address [address] [place] [address] Care Team Providers Care Nursing Staffing Coordinator Name Role Phone Brett Velásquez MD Primary Care Provider Reilly Stewart MD, PHD Unavailable Unava Brett Villegas MD Primary Care Provider Wayne Dickson Primary Care Provider [phone] Dafne Hilton MD Unavailable [phone] Desi Swenson NP Unavailable [phone] Encounter Details Date Type Department Care Team Description 09/17/2020 [facility] Medical Records [address] [place] [address] Sylvain Lopez MD Social History Tobacco Use [...] Date Type Specialty Care Team Description 04/29/2027 Garnisher Report Abstract, Provider documented as of this encounter Visit Diagnoses Not on filedocumented in this encounter Care Teams Nursing Staffing Coordinator Relationship Specialty Start Date End Date Brett Velásquez MD PCP - General Internal Medicine 04/21/16 01/25/22 Brett Velásquez MD PCP - General Internal Medicine 01/26/22 02/15/22 Wayne Jaimes [address] [place] [address] PCP - General Internal Medicine 02/16/22 Reilly Baker MD, PHD Surgeon Neurosurgery 01/20/22 Dafne Hilton MD [address] [place] [address] Specialist Cardiology 10/13/22 Desi Swenson NP [address] [place] [address] Cardiology 02/29/24 documented as of this encounter
--- OUTSIDE RECORDS SUMMARY | 2025-05-15 15:52 | XMS_ITS | Encounter Summary ---
Author Organization [facility] Address [address] [place] [address] Care Team Providers Care Certified Social Workers In Health Care Name Role Phone Brett Velásquez MD Primary Care Provider Keisha Luna MD Primary Care Provider [phone] Brett Velásquez MD Primary Care Provider Reilly Stewart MD, PHD Unavailable Unava ilable Brett Velásquez MD Primary Care Provider Wayne Dickson Primary Care Provider [phone] Dafne Hilton MD Unavailable [phone] Desi Swenson NP Unavailable [phone] Encounter Details Date Type Department Care Team Description 09/26/2012 Petroleum Refinery Laborer Report Medical Records [address] [place] [address] Shaquille Chandra Social History Tobacco Use Types [...] Date Type Specialty Care Team Description 04/29/2027 Petroleum Refinery Laborer Report Abstract, Provider documented as of this encounter Visit Diagnoses Not on filedocumented in this encounter Care Teams Certified Social Workers In Health Care Relationship Specialty Start Date End Date Brett Velásquez MD PCP - General Internal Medicine 10/29/11 06/19/15 Keisha Chavez MD [address] [place] [address] PCP - General Internal Medicine 06/20/15 04/20/16 Brett Velásquez MD PCP - General Internal Medicine 04/21/16 01/25/22 Brett Velásquez MD PCP - General Internal Medicine 01/26/22 02/15/22 Wayne Jaimes [address] [place] [address] PCP - General Internal Medicine 02/16/22 Reilly Baker MD, PHD [address] [place] [address] Surgeon Neurosurgery 01/20/22 Dafne Hilton MD [address] [place] [address] Specialist Cardiology 10/13/22 Desi Swenson NP [address] [place] [address] Cardiology 02/29/24 documented as of this encounter
--- OUTSIDE RECORDS SUMMARY | 2025-05-15 15:52 | XMS_ITS | Encounter Summary ---
Author Organization [facility] Address [address] [place] [address] Care Team Providers Care Watch Assembler Name Role Phone Brett Velásquez MD Primary Care Provider Reilly Stewart MD, PHD Unavailable UnaBrett Davis MD Primary Care Provider Wayne Dickson Primary Care Provider [phone] Dafne Hilton MD Unavailable [phone] Desi Swenson NP Unavailable [phone] Encounter Details Date Type Department Care Team Description 04/22/2020 Orders Only Medical Records [address] [place] [address] Vladislav Antunez DO Social History Tobacco Use [...] Type Specialty Care Team Description 04/29/2027 Warehouse Record Clerk Report Abstract, Provider documented as of this encounter Procedures Procedure Name Priority Date/Time Associated Diagnosis Comments OUTSIDE LAB Routine 04/21/2020 documented in this encounter Results * OUTSIDE LAB (04/21/2020) Vladislav Antunez DO LAB documented in this encounter Visit Diagnoses Not on filedocumented in this encounter Care Teams Watch Assembler Relationship Specialty Start Date End Date Brett Velásquez MD PCP - General Internal Medicine 04/21/16 01/25/22 Brett Velásquez MD PCP - General Internal Medicine 01/26/22 02/15/22 Wayne Jaimes [address] [place] [address] PCP - General Internal Medicine 02/16/22 Reilly Baker MD, PHD Surgeon Neurosurgery 01/20/22 Dafne Hilton MD [address] [place], [place] [address] Specialist Cardiology 10/13/22 Desi Swenson NP [address] [place], [place] [phone] Cardiology 02/29/24 documented as of this encounter
--- OUTSIDE RECORDS SUMMARY | 2025-05-15 15:52 | XMS_ITS | Encounter Summary ---
Author Organization [facility] Address [address] [place] [address] Care Team Providers Care Inspector Quality Assurance Name Role Phone Reilly Baker MD, PHD Unavailable Unava ilable Wayne Jaimes Primary Care Provider [phone] Dafne Hilton MD Unavailable [phone] Desi Swenson NP Unavailable [phone] Encounter Details Date Type Department Care Team Description 01/06/2023 Walk In Clinic Visit Medical Records [address] [place] [address] Clinic, [facility] Walk-In [address] [place] [address] Social History Tobacco Use Types Packs/Day Years [...] Date Type Specialty Care Team Description 04/29/2027 Lock Installer Report Abstract, Provider documented as of this encounter Visit Diagnoses Not on filedocumented in this encounter Care Teams Inspector Quality Assurance Relationship Specialty Start Date End Date Wayne Jaimes [address] [place] [address] PCP - General Internal Medicine 02/16/22 Reilly Baker MD, PHD Surgeon Neurosurgery 01/20/22 Dafne Hilton MD [address] [place] [address] Specialist Cardiology 10/13/22 Desi Swenson NP [address] [place] [address] Cardiology 02/29/24 documented as of this encounter
--- OUTSIDE RECORDS SUMMARY | 2025-05-15 15:52 | XMS_ITS | Encounter Summary ---
Author Organization [facility] Address [address] [place] [address] Care Team Providers Care Glass Beveller Name Role Phone Reilly Baker MD, PHD Unavailable Unava ilWayne Osborne Primary Care Provider Dafne Hilton MD Unavailable [phone] Desi Swenson NP Unavailable [phone] Encounter Details Date Type Department Care Team Description 09/14/2022 Refill Nephrology - [place] [address] [place] [address] Eduard Mccormick MD [address] [place] [address] Social History Tobacco Use Types Packs/Day Years [...] Date Type Specialty Care Team Description 04/29/2027 Bar Tender Report Abstract, Provider documented as of this encounter Visit Diagnoses Not on filedocumented in this encounter Care Teams Glass Beveller Relationship Specialty Start Date End Date Wayne Jaimes [place] [address] [place] [address] PCP - General Internal Medicine 02/16/22 Reilly Baker MD, PHD Surgeon Neurosurgery 01/20/22 Dafne Hilton MD [address] [place] [address] Specialist Cardiology 10/13/22 Desi Swenson NP [address] [place], [place] [phone] Cardiology 02/29/24 documented as of this encounter
--- OUTSIDE RECORDS SUMMARY | 2025-05-15 15:52 | XMS_ITS | Encounter Summary ---
Author Organization [facility] Address [address] [place] [address] Care Team Providers Care Learning Consultant Name Role Phone Brett Velásquez MD Primary Care Provider Reilly Stewart MD, PHD Unavailable Brett España MD Primary Care Provider Wayne Dickson Primary Care Provider [phone] Dafne Hilton MD Unavailable [phone] Desi Swenson NP Unavailable [phone] Encounter Details Date Type Department Care Team Description 01/24/2020 Pt. Non Urgent Medical Question Adult Medicine [address] [address] Olivia Foster PA-C [address] [place] [address] Social History Tobacco Use Types Packs/Day Years [...] Date Type Specialty Care Team Description 04/29/2027 Fuel Pilot Engineer Report Abstract, Provider documented as of this encounter Visit Diagnoses Not on filedocumented in this encounter Care Teams Learning Consultant Relationship Specialty Start Date End Date Brett Velásquez MD PCP - General Internal Medicine 04/21/16 01/25/22 Brett Velásquez MD PCP - General Internal Medicine 01/26/22 02/15/22 Wayne Jaimes [address] [place] [address] PCP - General Internal Medicine 02/16/22 Reilly Baker MD, PHD Surgeon Neurosurgery 01/20/22 Dafne Hilton MD [address] [place] [address] Specialist Cardiology 10/13/22 Desi Swenson NP [address] [place] [address] Cardiology 02/29/24 documented as of this encounter
--- OUTSIDE RECORDS SUMMARY | 2025-05-15 15:52 | XMS_ITS | Encounter Summary ---
Author Organization [facility] Address [address] [place] [address] Care Team Providers Care Manager Camp Name Role Phone Brett Velásquez MD Primary Care Provider Reilly Stewart MD, PHD Unavailable Unava Brett Villegas MD Primary Care Provider Wayne Dickson Primary Care Provider [phone] Dafne Hilton MD Unavailable [phone] Desi Swenson NP Unavailable [phone] Encounter Details Date Type Department Care Team Description 11/05/2020 [facility] Medical Records [address] [place] [address] Vladislav Antunez DO Social History Tobacco Use [...] Date Type Specialty Care Team Description 04/29/2027 News Analyst Report Abstract, Provider documented as of this encounter Visit Diagnoses Not on filedocumented in this encounter Care Teams Manager Camp Relationship Specialty Start Date End Date Brett Velásquez MD PCP - General Internal Medicine 04/21/16 01/25/22 Brett Velásquez MD PCP - General Internal Medicine 01/26/22 02/15/22 Wayne Jaimes [address] [place] [address] PCP - General Internal Medicine 02/16/22 Reilly Baker MD, PHD Surgeon Neurosurgery 01/20/22 Dafne Hilton MD [address] [place] [address] Specialist Cardiology 10/13/22 Desi Swenson NP [address] [place] [address] Cardiology 02/29/24 documented as of this encounter
--- OUTSIDE RECORDS SUMMARY | 2025-05-15 15:52 | XMS_ITS | Encounter Summary ---
Author Organization [facility] Address [address] [place] [address] Care Team Providers Care Loan Underwriter Name Role Phone Brett Velásquez MD Primary Care Provider Reilly Stewart MD, PHD Unavailable Unava Brett Villegas MD Primary Care Provider Wayne Dickson Primary Care Provider [phone] Dafne Hilton MD Unavailable [phone] Desi Swenson NP Unavailable [phone] Encounter Details Date Type Department Care Team Description 11/18/2020 Medical Underwriter Report Medical Records [address] [place] [address] Desi Li DPM Social History Tobacco Use [...] Type Specialty Care Team Description 04/29/2027 Medical Underwriter Report Abstract, Provider documented as of this encounter Visit Diagnoses Not on filedocumented in this encounter Care Teams Loan Underwriter Relationship Specialty Start Date End Date Brett Velásquez MD PCP - General Internal Medicine 04/21/16 01/25/22 Brett Velásquez MD PCP - General Internal Medicine 01/26/22 02/15/22 Wayne Jaimes [address] [place] [address] PCP - General Internal Medicine 02/16/22 Reilly Baker MD, PHD Surgeon Neurosurgery 01/20/22 Dafne Hilton MD [address] [place] [address] Specialist Cardiology 10/13/22 Desi Swenson NP [address] [place] [address] Cardiology 02/29/24 documented as of this encounter
--- OUTSIDE RECORDS SUMMARY | 2025-05-15 15:52 | XMS_ITS | Encounter Summary ---
Author Organization [facility] Address [address] [place] [address] Care Team Providers Care Licensed Guide Name Role Phone Reilly Baker MD, PHD Unavailable Brett España MD Primary Care Provider Wayne Dickson Primary Care Provider [phone] Dafne Hilton MD Unavailable [phone] Desi Swenson NP Unavailable [phone] Encounter Details Date Type Department Care Team Description 01/26/2022 Orders Only Adult Medicine [address] [address] Brett Velásquez MD Preoperative examination; Screening for [...] Type Specialty Care Team Description 04/29/2027 Senior Enterprise Architect Report Abstract, Provider documented as of this encounter Results * BASIC METABOLIC PANEL (02/19/2022 1:21 PM EDT) Pathologist [facility] GLOMERULAR FILTRATION RATE > 60 02/19/2022 5:28 PM EDT [facility] Comment: If patient is -British, multiply result by 1.21 Chronic Kidney Disease: [...] to patient->Immediate Brett Velásquez MD LAB [facility] * CBC (AUTO DIFF PLATELET) (02/19/2022 1:21 PM EDT) Pathologist [facility] WHITE BLOOD COUNT 6.9 4.8 - 10.8 x10-3/uL 02/19/2022 4:32 PM EDT [facility] RED BLOOD COUNT 5.1 4.5 - 5.5 x10-6/uL 02/19/2022 4:32 PM EDT [facility] Hemoglobin 15.3 13.5 - 17.5 g/dL 02/19/2022 4:32 PM EDT [facility] Hematocrit 45.7 42 - 54 % 02/19/2022 4:32 PM EDT [facility] MEAN CORPUSCULAR VOLUME 89.1 79 - 98 fL 02/19/2022 4:32 PM EDT [facility] MEAN CORPUSCULAR HEMOGLOBIN 29.8 27 - 32 pg 02/19/2022 4:32 PM EDT [facility] MEAN CORPUSCULAR HGB CONC 33.5 32 - 37 g/dL 02/19/2022 4:32 PM EDT [facility] RED CELL DISTRIBUTION WIDTH 11.8 11 - 15 % 02/19/2022 4:32 PM EDT [facility] PLT COUNT 221 130 - 400 x10-3/uL 02/19/2022 4:32 PM EDT [facility] MEAN PLATELET VOLUME 9.2 7 - 11 fL 02/19/2022 4:32 PM EDT [facility] NRBC % AUTO 0.0 <1 % 02/19/2022 4:32 PM EDT [facility] NEUTROPHILS % 66.7 % 02/19/2022 4:32 PM EDT [facility] LYMPH % 24.5 % 02/19/2022 4:32 PM EDT [facility] MONO % 7.8 % 02/19/2022 4:32 PM EDT [facility] EOS % 0.4 % 02/19/2022 4:32 PM EDT [facility] BASO % 0.3 % 02/19/2022 4:32 PM EDT [facility] IMMATURE GRANULOCYTES % 0.3 % 02/19/2022 4:32 PM EDT [facility] NRBC # AUTO 0.00 <0.1 x10-3/uL [...] Brett Velásquez MD LAB Performing Organization Address City/State/[facility] Co de Phone Number [facility] documented in this encounter Visit Diagnoses Diagnosis Preoperative examination Preoperative examination, unspecified Screening for deficiency anemia Screening for other and unspecified deficiency anemia Isolated proteinuria with other morphologic lesion documented in this encounter Care Teams Licensed Guide Relationship Specialty Start Date End Date Brett Velásquez MD PCP - General Internal Medicine 01/26/22 02/15/22 Wayne Jaimes [address] [place] [address] PCP - General Internal Medicine 02/16/22 Reilly Baker MD, PHD Surgeon Neurosurgery 01/20/22 Dafne Hilton MD [address] [place] [address] Specialist Cardiology 10/13/22 Desi Swenson NP [address] [place] [address] Cardiology 02/29/24 documented as of this encounter
--- OUTSIDE RECORDS SUMMARY | 2025-05-15 15:52 | XMS_ITS | Encounter Summary ---
Author Organization [facility] Address [address] [place] [address] Care Team Providers Care Stretching Press Operator Name Role Phone Brett Velásquez MD Primary Care Provider Reilly Stewart MD, PHD Unavailable UnaBrett Davis MD Primary Care Provider Wayne Dickson Primary Care Provider [phone] Dafne Hilton MD Unavailable [phone] Desi Swenson NP Unavailable [phone] Reason for Visit * Reason Onset Date Comments TEST RESULTS 11/06/2020 Encounter Details Date Type Department Care Team Description 11/06/2020 Telephone Adult Medicine [address] [address] Divya Ro PA [address] [place] [address] [id number] TEST RESULTS Social History Tobacco Use Types [...] Date Type Specialty Care Team Description 04/29/2027 Gas Plant Dispatcher Report Abstract, Provider documented as of this encounter Visit Diagnoses Not on filedocumented in this encounter Care Teams Stretching Press Operator Relationship Specialty Start Date End Date Brett Velásquez MD PCP - General Internal Medicine 04/21/16 01/25/22 Brett Velásquez MD PCP - General Internal Medicine 01/26/22 02/15/22 Wayne Jaimes [address] [place] [address] PCP - General Internal Medicine 02/16/22 Reilly Baker MD, PHD Surgeon Neurosurgery 01/20/22 Dafne Hilton MD [address] [place] [address] Specialist Cardiology 10/13/22 Desi Swenson NP [address] [place] [address] Cardiology 02/29/24 documented as of this encounter
--- OUTSIDE RECORDS SUMMARY | 2025-05-15 15:52 | XMS_ITS | Encounter Summary ---
Author Organization [facility] Address [address] [place] [address] Care Team Providers Care Bistro Attendant Name Role Phone Reilly Baker MD, PHD Unavailable Unava ilable Wayne Jaimes Primary Care Provider [phone] Dafne Hilton MD Unavailable [phone] Desi Swenson NP Unavailable [phone] Encounter Details Date Type Department Care Team Description 04/29/2022 Cardroom Supervisor Report Medical Records [address] [place] [address] Abstract, Provider Social History Tobacco Use Types [...] Date Type Specialty Care Team Description 04/29/2027 Cardroom Supervisor Report Abstract, Provider documented as of this encounter Visit Diagnoses Not on filedocumented in this encounter Care Teams Bistro Attendant Relationship Specialty Start Date End Date Wayne Jaimes [address] [place] [address] PCP - General Internal Medicine 02/16/22 Reilly Baker MD, PHD Surgeon Neurosurgery 01/20/22 Dafne Hilton MD [address] [place], [place] [address] Specialist Cardiology 10/13/22 Desi Swenson NP [address] [place] [address] Cardiology 02/29/24 documented as of this encounter
--- OUTSIDE RECORDS SUMMARY | 2025-05-15 15:52 | XMS_ITS | Encounter Summary ---
Author Organization [facility] Address [address] [place] [address] Care Team Providers Care Network Operations Center Engineer Name Role Phone Brett Velásquez MD Primary Care Provider Reilly Stewart MD, PHD Unavailable Unava ilBrett Bailon MD Primary Care Provider Wayne Dickson Primary Care Provider [phone] Dafne Hilton MD Unavailable [phone] Desi Swenson NP Unavailable [phone] Encounter Details Date Type Department Care Team Description 12/14/2017 Administrative Tech Report Medical Records [address] [place] [address] Rehab., Tien Social History Tobacco Use Types [...] Type Specialty Care Team Description 04/29/2027 Administrative Tech Report Abstract, Provider documented as of this encounter Visit Diagnoses Not on filedocumented in this encounter Care Teams Network Operations Center Engineer Relationship Specialty Start Date End Date Brett Velásquez MD PCP - General Internal Medicine 04/21/16 01/25/22 Brett Velásquez MD PCP - General Internal Medicine 01/26/22 02/15/22 Wayne Jaimes [address] [place] [address] PCP - General Internal Medicine 02/16/22 Reilly Baker MD, PHD Surgeon Neurosurgery 01/20/22 Dafne Hilton MD [address] [place] [address] Specialist Cardiology 10/13/22 Desi Swenson NP [address] [place] [address] Cardiology 02/29/24 documented as of this encounter
--- OUTSIDE RECORDS SUMMARY | 2025-05-15 15:52 | XMS_ITS | Encounter Summary ---
Author Organization [facility] Address [address] [place] [address] Care Team Providers Care Library Serials Assistant Name Role Phone Brett Velásquez MD Primary Care Provider Reilly Stewart MD, PHD Unavailable Unava Brett Villegas MD Primary Care Provider Wayne Dickson Primary Care Provider [phone] Dafne Hilton MD Unavailable [phone] Desi Swenson NP Unavailable [phone] Encounter Details Date Type Department Care Team Description 09/18/2020 Insurance Follow Up Specialist Report Medical Records [address] [place] [address] Desi Li DPM Social History Tobacco Use [...] Type Specialty Care Team Description 04/29/2027 Insurance Follow Up Specialist Report Abstract, Provider documented as of this encounter Visit Diagnoses Not on filedocumented in this encounter Care Teams Library Serials Assistant Relationship Specialty Start Date End Date Brett Velásquez MD PCP - General Internal Medicine 04/21/16 01/25/22 Brett Velásquez MD PCP - General Internal Medicine 01/26/22 02/15/22 Wayne Jaimes [address] [place] [address] PCP - General Internal Medicine 02/16/22 Reilly Baker MD, PHD Surgeon Neurosurgery 01/20/22 Dafne Hilton MD [address] [place] [address] Specialist Cardiology 10/13/22 Desi Swenson NP [address] [place] [address] Cardiology 02/29/24 documented as of this encounter
--- OUTSIDE RECORDS SUMMARY | 2025-05-15 15:52 | XMS_ITS | Encounter Summary ---
Author Organization [facility] Address [address] [place] [address] Care Team Providers Care Hotel Casino Floorperson Name Role Phone Brett Velásquez MD Primary Care Provider Reilly Stewart MD, PHD Unavailable Unava Brett Villegas MD Primary Care Provider Wayne Dickson Primary Care Provider [phone] Dafne Hilton MD Unavailable [phone] Desi Swenson NP Unavailable [phone] Encounter Details Date Type Department Care Team Description 08/15/2020 Steam Press Operator Report Medical Records [address] [place] [address] Desi Li DPM Social History Tobacco Use [...] Type Specialty Care Team Description 04/29/2027 Steam Press Operator Report Abstract, Provider documented as of this encounter Visit Diagnoses Not on filedocumented in this encounter Care Teams Hotel Casino Floorperson Relationship Specialty Start Date End Date Brett Velásquez MD PCP - General Internal Medicine 04/21/16 01/25/22 Brett Velásquez MD PCP - General Internal Medicine 01/26/22 02/15/22 Wayne Jaimes [address] [place] [address] PCP - General Internal Medicine 02/16/22 Reilly Baker MD, PHD Surgeon Neurosurgery 01/20/22 Dafne Hilton MD [address] [place] [address] Specialist Cardiology 10/13/22 Desi Swenson NP [address] [place] [address] Cardiology 02/29/24 documented as of this encounter
--- OUTSIDE RECORDS SUMMARY | 2025-05-15 15:52 | XMS_ITS | Encounter Summary ---
Author Organization [facility] Address [address] [place] [address] Care Team Providers Care Diet Attendant Name Role Phone Brett Velásquez MD Primary Care Provider Keisha Luna MD Primary Care Provider [phone] Brett Velásquez MD Primary Care Provider Reilly Stewart MD, PHD Unavailable Unava ilable Brett Velásquez MD Primary Care Provider Wayne Dickson Primary Care Provider [phone] Dafne Hilton MD Unavailable [phone] Desi Swenson NP Unavailable [phone] Encounter Details Date Type Department Care Team Description 01/04/2013 Flying I Instructor Report Medical Records [address] [place] [address] Iron Barnett Social History Tobacco Use Types [...] Date Type Specialty Care Team Description 04/29/2027 Flying I Instructor Report Abstract, Provider documented as of this encounter Visit Diagnoses Not on filedocumented in this encounter Care Teams Diet Attendant Relationship Specialty Start Date End Date Brett Velásquez MD PCP - General Internal Medicine 10/29/11 06/19/15 Keisha Chavez MD [address] [place] [address] PCP - General Internal Medicine 06/20/15 04/20/16 Brett Velásquez MD PCP - General Internal Medicine 04/21/16 01/25/22 Brett Velásquez MD PCP - General Internal Medicine 01/26/22 02/15/22 Wayne Jaimes [address] [place], [place] [address] PCP - General Internal Medicine 02/16/22 Reilly Baker MD, PHD [address] [place] [address] Surgeon Neurosurgery 01/20/22 Dafne Hilton MD [address] [place] [address] Specialist Cardiology 10/13/22 Desi Swenson NP [address] [place] [address] Cardiology 02/29/24 documented as of this encounter
--- OUTSIDE RECORDS SUMMARY | 2025-05-15 15:52 | XMS_ITS | Encounter Summary ---
Author Organization [facility] Address [address] [place] [address] Phone Care Team Providers Care Electrical Control Assembler Name Role Phone Vitor Mclean MD Primary Care Provider [phone] Encounter Details Date Type Department Care Team (Late st Contact Info) Description 12/15/2019 Procedure Pass OR Admitting Dept - Virtual Department [address] [place] [address] Social History Tobacco Use Types Packs/Day Years [...] on filedocumented in this encounter Care Teams Electrical Control Assembler Relationship Specialty Start Date End Date Vitor Mclean MD [address] [facility] [address] [place] [address] PCP - General Pulmonary Disease 12/14/19 documented as of this encounter Additional Source Comments The information contained in this document represents components of the legal health record. It is not the complete legal health record.[facility]
--- OUTSIDE RECORDS SUMMARY | 2025-05-15 15:52 | XMS_ITS | Encounter Summary ---
Author Organization [facility] Address [address] [place] [address] Care Team Providers Care Signal Technician Name Role Phone Reilly Baker MD, PHD Unavailable Unava ilWayne Osborne Primary Care Provider Dafne Hilton MD Unavailable [phone] Desi Swneson NP Unavailable [phone] Encounter Details Date Type Department Care Team Description 04/27/2022 [facility] Medical [facility] [address] [facility] [address] [place] [phone] Ena Whipple PA-C [address] [address] Social History Tobacco Use Types Packs/Day Years [...] Date Type Specialty Care Team Description 04/29/2027 Mold Sprayer Report Abstract, Provider documented as of this encounter Visit Diagnoses Not on filedocumented in this encounter Care Teams Signal Technician Relationship Specialty Start Date End Date Wayne Jaimes [address] [place] [address] PCP - General Internal Medicine 02/16/22 Reilly Baker MD, PHD Surgeon Neurosurgery 01/20/22 Dafne Hilton MD [address] [place] [address] Specialist Cardiology 10/13/22 Desi Swenson NP [address] [place], [place] [address] Cardiology 02/29/24 documented as of this encounter
--- OUTSIDE RECORDS SUMMARY | 2025-05-15 15:52 | XMS_ITS | Encounter Summary ---
Author Organization [facility] Address [address] [place] [address] Care Team Providers Care Heavy Equipment Sales Associate Name Role Phone Brett Velásquez MD Primary Care Provider Reilly Stewart MD, PHD Unavailable Brett España MD Primary Care Provider Wayne Dickson Primary Care Provider [phone] Dafne Hilton MD Unavailable [phone] Desi Swenson NP Unavailable [phone] Encounter Details Date Type Department Care Team Description 09/01/2020 [facility] [address] [place] [address] Md Steve Social History Tobacco Use Types [...] Date Type Specialty Care Team Description 04/29/2027 Postdoctoral Research Associate Report Abstract, Provider documented as of this encounter Visit Diagnoses Not on filedocumented in this encounter Care Teams Heavy Equipment Sales Associate Relationship Specialty Start Date End Date Brett Velásquez MD PCP - General Internal Medicine 04/21/16 01/25/22 Brett Velásquez MD PCP - General Internal Medicine 01/26/22 02/15/22 Wayne Jaimes [address] [place] [address] PCP - General Internal Medicine 02/16/22 Reilly Baker MD, PHD Surgeon Neurosurgery 01/20/22 Dafne Hilton MD [address] [place] [address] Specialist Cardiology 10/13/22 Desi Swenson NP [address] [place] [address] Cardiology 02/29/24 documented as of this encounter
--- OUTSIDE RECORDS SUMMARY | 2025-05-15 15:53 | XMS_ITS | Encounter Summary ---
Author Organization [facility] Address [address] [place] [address] Care Team Providers Care Director Of Search Engine Marketing Name Role Phone Brett Velásquez MD Primary Care Provider Reilly Stewart MD, PHD Unavailable Brett España MD Primary Care Provider Wayne Dickson Primary Care Provider [phone] Dafne Hilton MD Unavailable [phone] Desi Swenson NP Unavailable [phone] Reason for Visit * Reason Onset Date Comments er follow up 08/01/2018 Encounter Details Date Type Department Care Team Description 08/01/2018 Telephone Adult [address] [address] Brett Velásquez MD er follow up Social [...] PA-C Hospital/ center patient was treated at: [facility] Date of visit: 07/30/18 Was this only [...] Type Specialty Care Team Description 04/29/2027 Video Machines Mechanic Report Abstract, Provider documented as of this encounter Visit Diagnoses Not on filedocumented in this encounter Care Teams Director Of Search Engine Marketing Relationship Specialty Start Date End Date Brett Velásquez MD PCP - General Internal Medicine 04/21/16 01/25/22 Brett Velásquez MD PCP - General Internal Medicine 01/26/22 02/15/22 Wayne Jaimes [address] [place] [address] PCP - General Internal Medicine 02/16/22 Reilly Baker MD, PHD Surgeon Neurosurgery 01/20/22 Dafne Hilton MD [address] [place] [address] Specialist Cardiology 10/13/22 Desi Swenson, ILDA [address] [place] [address] Cardiology 02/29/24 documented as of this encounter
--- OUTSIDE RECORDS SUMMARY | 2025-05-15 15:53 | XMS_ITS | Encounter Summary ---
Author Organization [facility] Address [address] [place] [address] Care Team Providers Care Client Account Representative Name Role Phone Reilly Baker MD, PHD Unavailable Unava ilable Wayne Jaimes Primary Care Provider [phone] Dafne Hilton MD Unavailable [phone] Desi Swenson NP Unavailable [phone] Encounter Details Date Type Department Care Team Description [facility] [address] [place] [phone] Md Steve Social History Tobacco Use Types [...] Type Specialty Care Team Description 04/29/2027 Exercise Teacher Report Abstract, Provider documented as of this encounter Visit Diagnoses Not on filedocumented in this encounter Care Teams Client Account Representative Relationship Specialty Start Date End Date Wayne Jaimes [address] [place] [address] PCP - General Internal Medicine 02/16/22 Reilly Baker MD, PHD Surgeon Neurosurgery 01/20/22 Dafne Hilton MD [address] [place] [address] Specialist Cardiology 10/13/22 Desi Swenson NP [address] [place] [address] Cardiology 02/29/24 documented as of this encounter
--- OUTSIDE RECORDS SUMMARY | 2025-05-15 15:53 | XMS_ITS | Encounter Summary ---
Author Organization [facility] Address [address] [place] [address] Care Team Providers Care Design Printing Machine Setter Name Role Phone Reilly Baker MD, PHD Unavailable Unava ilWayne Osborne Primary Care Provider [phone] Dafne Hilton MD Unavailable [phone] Desi Swenson NP Unavailable [phone] Encounter Details Date Type Department Care Team Description 08/20/2023 Telephone Gastroenterology - [address] [place] [address] Kevin Oliva PA-C Social History Tobacco Use Types Packs/Day [...] Date Type Specialty Care Team Description 04/29/2027 Stitchdown Thread Laster Report Abstract, Provider documented as of this encounter Visit Diagnoses Not on filedocumented in this encounter Care Teams Design Printing Machine Setter Relationship Specialty Start Date End Date Wayne JaimesUsama [address] [place] [address] PCP - General Internal Medicine 02/16/22 Reilly Baker MD, PHD Surgeon Neurosurgery 01/20/22 Dafne Hilton MD [address] [place] [address] Specialist Cardiology 10/13/22 Desi Swenson NP [address] [place] [address] Cardiology 02/29/24 documented as of this encounter
--- OUTSIDE RECORDS SUMMARY | 2025-05-15 15:53 | XMS_ITS | Encounter Summary ---
Author Organization [facility] Address [address] [place] [address] Care Team Providers Care Scarfing Machine Operator Name Role Phone Reilly Baker MD, PHD Unavailable Unava Wayne Blackman Primary Care Provider [phone] Dafne Hilton MD Unavailable [phone] Desi Swenson NP Unavailable Encounter Details Date Type Department Care Team Description 01/14/2023 Hospital Medical Records [address] [place] [address] [facility] Social History Tobacco Use Types [...] Type Specialty Care Team Description 04/29/2027 Supervisor Post Wave Report Abstract, Provider documented as of this encounter Procedures Procedure Name Priority Date/Time Associated Diagnosis Comments OUTSIDE CT Routine 01/15/2023 OUTSIDE EKG Routine 01/14/2023 documented in this encounter Results * OUTSIDE CT (01/15/2023) Provider Abstract RADIOLOGY * OUTSIDE EKG (01/14/2023) Provider Abstract CARDIOLOGY documented in this encounter Visit Diagnoses Not on filedocumented in this encounter Care Teams Scarfing Machine Operator Relationship Specialty Start Date End Date Wayne Jaimes [address] [place] [address] PCP - General Internal Medicine 02/16/22 Reilly Baker MD, PHD Surgeon Neurosurgery 01/20/22 Dafne Hilton MD [address] [place] [address] Specialist Cardiology 10/13/22 Desi Swenson NP [address] [place] [address] Cardiology 02/29/24 documented as of this encounter
--- OUTSIDE RECORDS SUMMARY | 2025-05-15 15:53 | XMS_ITS | Clinical Summary ---
Author Organization [facility] Address [address] [place] [address] Phone Care Team Providers Care Tool Grinder Name Role Phone Shelbie Upton MD Primary Care Provider Allergies No known [...] (two) times a day. 04/06/20 23 Active efinaconazole (Jublia) 10 % solution with applicator Apply topically. Active gabapentin (NEURONTIN) 300 mg capsule Take 1 capsule (300 mg total) by mouth if needed. Active lidocaine (XYLOCAINE) 5 % ointment Apply topically 1 (one) time each day. Active cimetidine (TAGAMET) 800 mg tablet Take [...] 026 Active diclofenac (VOLTAREN) 1 % topical gelIndications:Myra [...] wheezing. 18 g 11 04/04/20 25 Active fluticasone furoate-vilanteroL (BREO ELLIPTA) 100-25 mcg/dose inhaler Inhale by mouth. 09/23/19 25 Active atorvastatin (LIPITOR) 40 mg tablet Take 1 tablet (40 mg total) by mouth 1 (one) time each day. 07/17/19 25 Active triamcinolone (KENALOG) 0.025 % cream APPLY 1 APPLICATION OF CREAM TOPICALLY ONCE DAILY FOR THE RASH ON THE BACK OF THE RIGHT ANKLE AND HEEL FOR 14 DAYS 01/11/20 25 Active sucralfate (CARAFATE) 1 gram tablet Take 1 tablet (1 g total) by mouth 1 (one) time each day with lunch. 09/07/19 25 Active lidocaine (LIDODERM) 5 % patch APPLY 1 TO 3 PATCHES TOPICALLY ONCE DAILY. 12 HOURS ON, AND 12 HOURS OFF. 04/22/20 25 Active nitroglycerin (NITROSTAT) 0.4 mg SL tablet DISSOLVE ONE TABLET UNDER THE TONGUE EVERY 5 MINUTES NEEDED FOR CHEST PAIN. DO NOT EXCEED A TOTAL OF 3 DOSES PER EPISODE. 02/28/20 25 Active metoprolol tartrate (LOPRESSOR) 25 mg tablet TAKE 1 TABLET BY MOUTH TWO TIMES A DAY. *THIS IS NOT THE SAME MEDICATION YOU WERE TAKING BEFOR SURGERY* 04/16/20 Active Linzess 145 mcg capsule Take 1 capsule (145 mcg total) by mouth 1 (one) time each day. 04/23/20 Active gentamicin (GARAMYCIN) 0.1 % ointment APPLY 1 APPLICATION OF OINTMENT TOPICALLY ONCE DAILY. APPLY TO THE RIGHT BIG TOE AND LEFT 5TH TOE FOR 30 DAYS 01/11/20 Active furosemide (LASIX) 20 mg tablet Take 1 tablet (20 mg total) by mouth. 05/01/20 Active docusate sodium (COLACE) 100 mg capsule Take 2 capsules (200 mg total) by mouth. 04/16/20 Active amiodarone (PACERONE) 200 mg tablet Take 1 tablet (200 mg total) by mouth. 04/16/20 Active acetaminophen (TYLENOL) 325 mg tablet TAKE 3 TABLETS BY MOUTH EVERY 6 HOURS. (LIMIT 4000MG OF TYLENOL/ACETAMI NOPHEN PER DAY) 04/16/20 Active triamcinolone (KENALOG) 0.1 % lotion APPLY SPARINGLY TO AFFECTED AREAS TWICE DAILY NEEDED 08/24/19 Discontin ued(Dupli justine order) atorvastatin (LIPITOR) 10 mg tablet Take 1 tablet by mouth once daily 90 tablet 08/03/19 Discontin ued(Alter jorge therapy) atorvastatin (LIPITOR) 80 mg tablet Take 1 tablet (80 mg total) by mouth. at bedtime 04/16/20 Discontin ued(Alter jorge therapy) metoprolol succinate (TOPROL-XL) 25 mg 24 hr tablet Take 1 tablet (25 mg total) by mouth 1 (one) time each day. Discontin ued(Dupli justine order) tiZANidine (ZANAFLEX) 4 mg tablet Take 1 tablet (4 mg total) by mouth. 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 ([facility] V24) 12/17/2022 ST elevation (STEMI) myocard ial infarction ([facility] V24, [facility] V28) 12/11/2022 Benign prostatic hyperplasia [...] Encounters Date Type Department Care Team Description 05/09/2025 3:00 PM EDT Office Visit Orthopedics [id number] [place] [address] Amadeo Sofia PA Primary osteoarthritis of right knee (Primary Dx); Primary osteoarthritis of left knee 05/09/2025 [facility] [address] [place] [address] Amadeo Sofia PA 05/08/2025 2:30 PM EDT Office Visit Pulmonology - [place] [facility] [address] [place] [phone] Jose Benjamin MD Moderate asthma, unspecified whether complicated, unspecified whether persistent (Primary Dx); Obstructive sleep apnea 04/16/2025 Telephone Adult Medicine [address] [phone] Garrison Beach LPN 03/22/2025 3:12 PM EDT - 03/22/2025 11:59 PM EDT Hospital Encounter [facility] CT Scan [address] [place] [phone] Chronic pharyngitis; Chronic sore throat Discharge Disposition: Home or Self Care 02/22/2025 7:14 PM EDT - 02/22/2025 11:59 PM EDT Hospital Encounter [facility] MRI [address] [place] [phone] Radiculopathy, lumbar region; Spinal stenosis Discharge Disposition: Home or Self Care from Last 3 Months Immunizations Immunization Administration Dates Next Due Influenza trivalent, 0.5mL ( Fluzone High-dose) 65yo and older 04/06/2023,04/08/2021,04/09/2020,05/06 Influenza trivalent, with pr eservative (Fluzone; Afluria) 6mo and older 04/20/2022,04/08/2021,04/09/2020,05/06,06/23/2018,06/18/2017,03/20/2016 ,04/22/2015,05/16/2014,05/26/2013,1003/2012 Pfizer (ages 12 & older) Biv alent, [...] fracture repair UPPER GASTROINTESTINAL ENDOSCOPY 01/13/2017 PROCEDURE: NE UPPER GI ENDOSCOPY PERFORMED; COMMENT: normal UPPER GASTROINTESTINAL ENDOSCOPY 03/08/12 PROCEDURE: NE UPPER GI ENDOSCOPY PERFORMED; COMMENT: normal OTHER [...] Dr. Bell UPPER GASTROINTESTINAL ENDOSCOPY 09/17/2020 PROCEDURE: NE UPPER GI ENDOSCOPY PERFORMED; COMMENT: Normal findings. 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 ([facility] V24) 12/17/2022 DX:Coronary artery disease involving rosebud coronary artery of rosebud heart with angina pectoris ([facility]) Esophageal dysmotility DX:Esopha geal dysmotility [...] Sign Reading Time Taken Comments Blood Pressure 119/64 05/08/2025 2:43 PM EDT Pulse 62 05/08/2025 2:43 PM EDT Temperature 36.1 C (96.9 F) 05/08/2025 2:43 PM EDT Respiratory Rate 16 05/09/2025 2:57 PM EDT Oxygen Saturation 97% 05/08/2025 2:43 PM EDT Inhaled Oxygen Concentration - - Weight 65.3 kg (144 lb) 05/09/2025 2:57 PM EDT Height 167.6 cm (5' 6 ) 05/09/2025 2:57 PM EDT Body Mass Index 23.24 05/09/2025 2:57 PM EDT Plan of Treatment Upcoming Encounters Date Type Department Care Team (Late st Contact Info) Description 08/08/2025 1:45 PM EST Office Visit Pulmonology - [address] [place] [phone] Jose Benjamin MD [address] [place] [phone] 11/14/2025 3:00 PM EDT Office Visit Nephrology [address] [phone] Eduard Mccormick MD [address] [facility] [address] [place] [address] Health Maintenance Due Date Last Done Comments Medicare Annual Wellness Visit 06/18/2022 Social Influencers of Health Screening 06/18/2022 Colorectal Cancer Screening: Colonoscopy 02/15/2024 02/14/2019 Depression Screening 07/12/2024 COVID-19 Vaccine (8 - Pfizer risk season) 2025 03/08/2024, 04/13/2023, 04/01/2022, Additional history exists Falls Risk Assessment 01/30/2026 [...] Adult Patients Completed 05/17/2023 Influenza Vaccine Completed 05/03/2025, , 04/06/2023, Additional history exists HIB Vaccines Aged Out [...] Signed Date: 03/23/2025 16:34 ET Workstation ID: [id number] Transcribed By: Self Edit Transcribed Date: 03/23/2025 [...] Signed Date: 03/23/2025 16:34 ET Workstation ID: [id number] Transcribed By: Self Edit Transcribed Date: 03/23/2025 16:10 ET us Vipin Cheryr MD IM CT PROCEDURES Final R esult * Creatinine (03/22/2025 1:34 PM EDT) Creatinine 1.01 0.70 - 1.30 mg/dL LAB CHEMISTRY METHOD 03/22/2025 2:34 PM EDT [facility] eGFR 80 >=60 mL/min/1. 73m2 LAB CHEMISTRY METHOD 03/22/2025 2:34 PM EDT [facility] Comment:Calculation based on the Chronic Kidney Disease Epidemiology Collaboration (CKD-EPI) equation refit without adjustment for race. Blood Venous blood specimen / Unknown Venipuncture / Unknown 03/22/2025 1:34 PM EDT 03/22/2025 1:58 PM EDT Vipin Cherry MD LAB BLOOD ORDERABLES Maggie l Result Performing Organization Address [facility]/ZIP Co de Phone Number [facility] [address] [place] [address], [place] [phone] * BUN (03/22/2025 1:34 PM EDT) BUN 14 5 - 25 mg/dL LAB CHEMISTRY METHOD 03/22/2025 2:34 PM EDT [facility] Blood Venous blood specimen / Unknown Venipuncture / Unknown 03/22/2025 1:34 PM EDT 03/22/2025 1:58 PM EDT Vipin Cherry MD LAB BLOOD ORDERABLES Maggie l Result Performing Organization Address [facility]/ZIP Co de Phone Number [facility] [address] [place] [address], [place] [phone] * MR Lumbar Spine wo Contrast (02/22/2025 [...] Signed Date: 02/23/2025 03:53 ET Workstation ID: [id number] Transcribed By: Self Edit Transcribed Date: 02/23/2025 [...] Signed Date: 02/23/2025 03:53 ET Workstation ID: [id number] Transcribed By: Self Edit Transcribed Date: 02/23/2025 03:48 ET Vladislav Antunez DO IMG MRI PROCEDURES Final Result from Last 3 Months Insurance MEDICAID - [place] [employer] MEDICARE Care Teams Tool Grinder Relationship Specialty Start Date End Date Shelbie Upton MD [address] [place] [address] [id number] PCP - General Internal Medicine 10/31/24
--- OUTSIDE RECORDS SUMMARY | 2025-05-15 15:53 | XMS_ITS | Encounter Summary ---
Author Organization [facility] Address [address] [place] [address] Care Team Providers Care Medical Office Assistant Instructor Name Role Phone Reilly Baker MD, PHD Unavailable Unava ilWayne Osborne Primary Care Provider Dafne Hilton MD Unavailable [phone] Desi Swenson NP Unavailable [phone] Reason for Visit * Reason Onset Date Comments APPOINTMENT 08/19/2023 Encounter Details Date Type Department Care Team Description 08/19/2023 Telephone [facility] [address] [facility] [address] [place] [address] Wen Herrmann NP [address] [facility] [place] [address] APPOINTMENT Social History Tobacco Use Types Packs/Day [...] - 08/20/2023 1:35 PM EST Eve from [facility] called back and informed me that the patient had three requests open in the prior auth portal so she cancelled two as duplicates. Eve also added the J-code [id number] to therequest. * Telephone Encounter - Ena Randle - 08/19/2023 1:10 PM EST Eve Shi called in regards to a PA for pt Please call her back to discuss [phone] documented in this encounter Plan of Treatment Upcoming Encounters Date Type Specialty Care Team Description 04/29/2027 Hospitalist Nocturnist Physician Report Abstract, Provider documented as of this encounter Visit Diagnoses Not on filedocumented in this encounter Care Teams Medical Office Assistant Instructor Relationship Specialty Start Date End Date Wayne Jaimes [address] [place] [address] PCP - General Internal Medicine 02/16/22 Reilly Baker MD, PHD Surgeon Neurosurgery 01/20/22 Dafne Hilton MD [address] [place] [address] Specialist Cardiology 10/13/22 Desi Swenson NP [address] [place] [address] Cardiology 02/29/24 documented as of this encounter
--- OUTSIDE RECORDS SUMMARY | 2025-05-15 15:53 | XMS_ITS | Encounter Summary ---
Author Organization [facility] Address [address] [place] [address] Care Team Providers Care Boom Crane Operator Name Role Phone Reilly Baker MD, PHD Unavailable Unava ilWayne Osborne Primary Care Provider [phone] Dafne Hilton MD Unavailable [phone] Desi Swenson NP Unavailable [phone] Encounter Details Date Type Department Care Team Description 02/15/2024 Orders Only Gastroenterology - [address] [place] [address] Kevin Oliva PA-C Gastroesophageal reflux disease, unspecified whether esophagitis present; [...] Date Type Specialty Care Team Description 04/29/2027 Mailer Report Abstract, Provider documented as of this [...] type documented in this encounter Care Teams Boom Crane Operator Relationship Specialty Start Date End Date Wayne Jaimes [address] [place] [address] PCP - General Internal Medicine 02/16/22 Reilly Baker MD, PHD Surgeon Neurosurgery 01/20/22 Dafne Hilton MD [address] [place] [address] Specialist Cardiology 10/13/22 Desi Swenson NP [address] [place] [address] Cardiology 02/29/24 documented as of this encounter
--- OUTSIDE RECORDS SUMMARY | 2025-05-15 15:53 | XMS_ITS | Encounter Summary ---
Author Organization [facility] Address [address] [place] [address] Care Team Providers Care Gold Marker Name Role Phone Reilly Baker MD, PHD Unavailable Unava ilable Wayne Jaimes Primary Care Provider [phone] Dafne Hilton MD Unavailable [phone] Desi Swenson NP Unavailable [phone] Encounter Details Date Type Department Care Team Description 10/11/2023 Adobe Ball Mixer Report Medical Records [address] [place] [address] Vladislav Antunez DO Social History Tobacco Use [...] Date Type Specialty Care Team Description 04/29/2027 Adobe Ball Mixer Report Abstract, Provider documented as of this encounter Visit Diagnoses Not on filedocumented in this encounter Care Teams Gold Marker Relationship Specialty Start Date End Date Wayne Jaimes [address] [place] [address] PCP - General Internal Medicine 02/16/22 Reilly Baker MD, PHD Surgeon Neurosurgery 01/20/22 Dafne Hilton MD [address] [place] [address] Specialist Cardiology 10/13/22 Desi Swenson NP [address] [place] [address] Cardiology 02/29/24 documented as of this encounter
--- OUTSIDE RECORDS SUMMARY | 2025-05-15 15:53 | XMS_ITS | Encounter Summary ---
Author Organization [facility] Address [address] [place] [address] Care Team Providers Care Lead Programmer Name Role Phone Brett Velásquez MD Primary Care Provider Keisha Luna MD Primary Care Provider [phone] Brett Velásquez MD Primary Care Provider Reilly Stewart MD, PHD Unavailable [facility]acentral valley medical centerBrett Bailon MD Primary Care Provider Wayne Dickson Primary Care Provider [phone] Dafne Hilton MD Unavailable [phone] Desi Swenson NP Unavailable [phone] Reason for Visit * Reason Onset Date Comments REFERRAL 03/27/2013 Encounter Details Date Type Department Care Team Description 03/27/2013 Telephone Physiatry - [address] [address] Vladislav Antunez, REFERRAL Social History Tobacco Use [...] Type Specialty Care Team Description 04/29/2027 Skate Maker Report Abstract, Provider documented as of this encounter Visit Diagnoses Not on filedocumented in this encounter Care Teams Lead Programmer Relationship Specialty Start Date End Date Brett Velásquez MD PCP - General Internal Medicine 10/29/11 06/19/15 Keisha Chavez MD [address] [place] [address] PCP - General Internal Medicine 06/20/15 04/20/16 Brett Velásquez MD PCP - General Internal Medicine 04/21/16 01/25/22 Brett Velásquez MD PCP - General Internal Medicine 01/26/22 02/15/22 Wayne Jaimes [address] [place] [address] PCP - General Internal Medicine 02/16/22 Reilly Baker MD, PHD [address] [place] [address] Surgeon Neurosurgery 01/20/22 Dafne Hilton MD [address] [place] [address] Specialist Cardiology 10/13/22 Desi Swenson NP [address] [place] [address] Cardiology 02/29/24 documented as of this encounter
--- OUTSIDE RECORDS SUMMARY | 2025-05-15 15:53 | XMS_ITS | Encounter Summary ---
Author Organization [facility] Address [address] [place] [address] Care Team Providers Care Supermarket Manager Name Role Phone Reilly Baker MD, PHD Unavailable Unava ilable Wayne Jaimes Primary Care Provider [phone] Dafne Hilton MD Unavailable [phone] Desi Swenson NP Unavailable [phone] Encounter Details Date Type Department Care Team Description 02/15/2023 Script Supervisor Report Medical Records [address] [place] [address] Vladislav Antunez DO Social History Tobacco Use [...] Type Specialty Care Team Description 04/29/2027 Script Supervisor Report Abstract, Provider documented as of this encounter Visit Diagnoses Not on filedocumented in this encounter Care Teams Supermarket Manager Relationship Specialty Start Date End Date Wayne Jaimes [address] [place], [place] [phone] PCP - General Internal Medicine 02/16/22 Reilly Baker MD, PHD Surgeon Neurosurgery 01/20/22 Dafne Hilton MD [address] [place] [address] Specialist Cardiology 10/13/22 Desi Swenson NP [address] [place], [place] [phone] Cardiology 02/29/24 documented as of this encounter
--- OUTSIDE RECORDS SUMMARY | 2025-05-15 15:53 | XMS_ITS | Encounter Summary ---
Author Organization [facility] Address [address] [place] [address] Care Team Providers Care Integrative Medicine Physician Name Role Phone Reilly Baker MD, PHD Unavailable Unava ilable Wayne Jaimes Primary Care Provider [phone] Dafne Hilton MD Unavailable [phone] Desi Swenson NP Unavailable [phone] Encounter Details Date Type Department Care Team Description 03/29/2023 Hospital Medical Records [address] [place] [address] Vladislav Antunez DO Social History Tobacco Use [...] suspected to have Coronavirus/COVID-19? No / Unsure 03/19/2023 2:41 PM EDT documented as of this encounter Plan of Treatment Upcoming Encounters Date Type Specialty Care Team Description 04/29/2027 Miniature Set Constructor Report Abstract, Provider documented as of this encounter Visit Diagnoses Not on filedocumented in this encounter Care Teams Integrative Medicine Physician Relationship Specialty Start Date End Date Wayne Jaimes [address] [place] [address] PCP - General Internal Medicine 02/16/22 Reilly Baker MD, PHD Surgeon Neurosurgery 01/20/22 Dafne Hilton MD [address] [place] [address] Specialist Cardiology 10/13/22 Desi Swenson NP [address] [place], [place] [phone] Cardiology 02/29/24 documented as of this encounter
--- OUTSIDE RECORDS SUMMARY | 2025-05-15 15:53 | XMS_ITS | Encounter Summary ---
Author Organization [facility] Address [address] [place] [address] Care Team Providers Care Grounds Maintenance Worker Name Role Phone Brett Velásquez MD Primary Care Provider Reilly Stewart MD, PHD Unavailable UnaBrett Davis MD Primary Care Provider Wayne Dickson Primary Care Provider [phone] Dafne Hilton MD Unavailable [phone] Desi Swenson NP Unavailable [phone] Encounter Details Date Type Department Care Team Description 03/20/2021 Pt. Non Urgent Medical Question Physiatry - [address] [address] Angela Montalvo MD [address] [place] [address] [place] [id number] Social History Tobacco Use Types Packs/Day Years [...] who IV injection for back pain in [facility] or [facility] as soon as possible. my back [...] Type Specialty Care Team Description 04/29/[address] Report Abstract, Provider documented as of this encounter Visit Diagnoses Not on filedocumented in this encounter Care Teams Grounds Maintenance Worker Relationship Specialty Start Date End Date Brett Velásquez MD PCP - General Internal Medicine 04/21/16 01/25/22 Brett Velásquez MD PCP - General Internal Medicine 01/26/22 02/15/22 Wayne Jaimes [address] [place] [address] PCP - General Internal Medicine 02/16/22 Reilly Baker MD, PHD Surgeon Neurosurgery 01/20/22 Dafne Hilton MD [address] [place] [address] Specialist Cardiology 10/13/22 Desi Swenson NP [address] [place] [address] Cardiology 02/29/24 documented as of this encounter
--- OUTSIDE RECORDS SUMMARY | 2025-05-15 15:53 | XMS_ITS | Encounter Summary ---
Author Organization [facility] Address [address] [place] [address] Care Team Providers Care Pot Filler Name Role Phone Brett Velásquez MD Primary Care Provider Reilly Stewart MD, PHD Unavailable Unava Brett Villegas MD Primary Care Provider Wayne Dickson Primary Care Provider [phone] Dafne Hilton MD Unavailable [phone] Desi Swenson NP Unavailable [phone] Encounter Details Date Type Department Care Team Description 03/18/2021 Classics Teacher Report Medical Records [address] [place] [address] Zuleika Baez PA-C Social History Tobacco Use [...] Date Type Specialty Care Team Description 04/29/2027 Classics Teacher Report Abstract, Provider documented as of this encounter Visit Diagnoses Not on filedocumented in this encounter Care Teams Pot Filler Relationship Specialty Start Date End Date Brett Velásquez MD PCP - General Internal Medicine 04/21/16 01/25/22 Brett Velásquez MD PCP - General Internal Medicine 01/26/22 02/15/22 Wayne Jaimes [address] [place] [address] PCP - General Internal Medicine 02/16/22 Reilly Baker MD, PHD Surgeon Neurosurgery 01/20/22 Dafne Hilton MD [address] [place] [address] Specialist Cardiology 10/13/22 Desi Swenson NP [address] [place] [address] Cardiology 02/29/24 documented as of this encounter
--- OUTSIDE RECORDS SUMMARY | 2025-05-15 15:53 | XMS_ITS | Encounter Summary ---
Author Organization [facility] Address [address] [place] [address] Care Team Providers Care Supervisor Wire Rope Fabrication Name Role Phone Brett Velásquez MD Primary Care Provider Keisha Luna MD Primary Care Provider [phone] Brett Velásquez MD Primary Care Provider Reilly Stewart MD, PHD Unavailable Unava ilable Brett Velásquez MD Primary Care Provider Wayne Dickson Primary Care Provider [phone] Dafne Hilton MD Unavailable [phone] Desi Swenson NP Unavailable [phone] Encounter Details Date Type Department Care Team Description 02/28/2013 Catering Truck Operator Report Medical Records [address] [place] [address] Rehab., [place] Social History Tobacco Use Types Packs/Day Years [...] Date Type Specialty Care Team Description 04/29/2027 Catering Truck Operator Report Abstract, Provider documented as of this encounter Visit Diagnoses Not on filedocumented in this encounter Care Teams Supervisor Wire Rope Fabrication Relationship Specialty Start Date End Date Brett Velásquez MD PCP - General Internal Medicine 10/29/11 06/19/15 Keisha Chavez MD [address] [place] [address] PCP - General Internal Medicine 06/20/15 04/20/16 Brett Velásquez MD PCP - General Internal Medicine 04/21/16 01/25/22 Brett Velásquez MD PCP - General Internal Medicine 01/26/22 02/15/22 Wayne Jaimes [address] [place] [address] PCP - General Internal Medicine 02/16/22 Reilly Baker MD, PHD [address] [place] [address] Surgeon Neurosurgery 01/20/22 Dafne Hilton MD [address] [place] [address] Specialist Cardiology 10/13/22 Desi Swenson NP [address] [place] [address] Cardiology 02/29/24 documented as of this encounter
--- OUTSIDE RECORDS SUMMARY | 2025-05-15 15:53 | XMS_ITS | Patient Health Record ---
Author Organization [facility] Address [address] [facility] [address] [place] [address] Care Team Providers Care Child Center Assistant Name Role Phone Wayne Jaimes MD Primary Care Provider JORGE L Burks Unavailable [phone] Allergies No Known Allergies Reason For Referral [...] primary osteoarthritis of the ankle and/or foot (468946026) Primary osteoarthritis, right ankle and foot (M19.071) Active confirmed Problem Localized, primary osteoarthritis of the ankle and/or foot (099209962) Primary osteoarthritis, left 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) Active confirmed Problem Plantarflexion deformity of right foot (finding) (2239420586986718) Equinus contracture of right ankle (M24.571) Active confirmed Problem Psoriasis (0013343) Psoriasis (L40.9) Active confirmed Problem Lumbar radiculopathy (633857481) Lumbar radiculopathy, right (M54.16) Active confirmed Problem Chondrocalcinosis (399805833) Calcium pyrophosphate deposition disease (CPPD) (M11.20) Active confirmed Vital Signs Heart Rate 66 /min 01/10/2025 Temperature 97.6 degrees Fahrenheit 01/10/2025 Respiratory Rate 16 /min 01/10/2025 Height 5ft 6in in 01/10/2025 Weight 149.9 lbs 01/10/2025 BMI 24.19 kg/m2 01/10/2025 Procedures Procedure Date Ordered Date Performed Result Body Sit e DRAIN/INJECT, SMALL JOINT/BURSA 07/10/2024 N/A DRAIN/INJECT, SMALL JOINT/BURSA 01/10/2025 N/A Encounters Encounter Location Date Provider Diagnosis [facility] [address] [address] 07/10/2024 JORGE L REDDY Onychomycosis B35.1 ; Calcium pyrophosphate deposition disease (CPPD) M11.20 ; Psoriasis L40.9 ; Hallux limitus of left foot M20.5X2 ; Hallux limitus of right foot M20.5X1 ; Lumbar radiculopathy, right M54.16 ; Achilles tendinitis, right leg M76.61 and Achilles tendinitis, left leg M76.62 [facility] [address] [address] 10/11/2024 JORGE L REDDY Onychomycosis B35.1 ; Calcium pyrophosphate deposition disease (CPPD) M11.20 ; Psoriasis L40.9 ; Hallux limitus of left foot M20.5X2 ; Hallux limitus of right foot M20.5X1 ; Lumbar radiculopathy, right M54.16 ; Achilles tendinitis, right leg M76.61 and Achilles tendinitis, left leg M76.62 [facility] [address] 01/10/2025 JORGE L REDDY Onychomycosis B35.1 ; Calcium pyrophosphate deposition disease (CPPD) M11.20 ; Infection, Pseudomonas A49.8 ; Psoriasis L40.9 ; Hallux limitus of right foot M20.5X1 ; Hallux limitus of left foot M20.5X2 ; Lumbar radiculopathy, right M54.16 ; Pain in left foot M79.672 and Pain in right foot M79.671 [facility] [address] 01/10/2025 JORGE L REDDY [facility] [address] 01/15/2025 JORGE L REDDY Onychomycosis B35.1 [facility] [address] 01/24/2025 JORGE L REDDY Onychomycosis B35.1 [facility] [address] 01/24/2025 JORGE L REDDY [facility] [address] 02/01/2025 JORGE L REDDY [facility] [address] [address] 02/22/2025 JORGE L REDDY [facility] [address] 03/02/2025 JORGE L REDDY Assessments Encounter Date [...] inserts to help offload the offending joints. 07/10/2024 Calcium pyrophosphate deposition disease (CPPD) (ICD-10 [...] 25 Next Appt Details Provider Name:JORGE L CRISOSTOMO BARRY, 05/30/2025 02:45:00 PM, [address], [address], Insurance Providers Payer Name Payer Address Payer Phone Subscriber Number Group Number Insured Name Patient Relationship to Insured Coverage Start Date Coverage End Date [employer] care medicare community plan [address] [address] [place] [address] [id number] ANDREILaina Abbott Self - patient is the insured Medications [...]
--- OUTSIDE RECORDS SUMMARY | 2025-05-15 15:53 | XMS_ITS | Encounter Summary ---
Author Organization [facility] Address [address] [place] [address] Care Team Providers Care Cover Inspector Name Role Phone Reilly Baker MD, PHD Unavailable Unava ilWayne Osborne Primary Care Provider [phone] Dafne Hilton MD Unavailable [phone] Desi Swenson NP Unavailable [phone] Encounter Details Date Type Department Care Team Description 10/21/2023 Orders Only Medical Records [address] [place] [address] Shaquille Loredo PA-C [address] [place] [address] Social History Tobacco Use Types Packs/Day Years [...] Date Type Specialty Care Team Description 04/29/2027 Robotics Software Engineer Report Abstract, Provider documented as of this encounter Procedures Procedure Name Priority Date/Time Associated Diagnosis Comments OUTSIDE SLEEP STUDY Routine 05/09/2022 documented in this encounter Results * OUTSIDE SLEEP STUDY (05/09/2022) Shaquille Loredo PA-C PULMONOLOGY documented in this encounter Visit Diagnoses Not on filedocumented in this encounter Care Teams Cover Inspector Relationship Specialty Start Date End Date Jose M Jaimesgil Dowell [address] [place] [address] PCP - General Internal Medicine 02/16/22 Reilly Baker MD, PHD Surgeon Neurosurgery 01/20/22 Dafne Hilton MD [address] [place] [address] Specialist Cardiology 10/13/22 Desi Swenson NP [address] [place] [address] Cardiology 02/29/24 documented as of this encounter
--- OUTSIDE RECORDS SUMMARY | 2025-05-15 15:53 | XMS_ITS | Encounter Summary ---
Author Organization [facility] Address [address] [place] [address] Care Team Providers Care Upholstery Trimmer Name Role Phone Reilly Baker MD, PHD Unavailable Unava ilable Wayne Jaimes Primary Care Provider [phone] Dafne Hilton MD Unavailable [phone] Desi Swenson NP Unavailable [phone] Encounter Details Date Type Department Care Team Description 08/17/2023 Support Engineer Report Medical Records [address] Social History Tobacco Use Types Packs/Day [...] on filedocumented in this encounter Care Teams Upholstery Trimmer Relationship Specialty Start Date End Date Wayne Jaimes [address] [place], [place] [phone] PCP - General Internal Medicine 02/16/22 Reilly Baker MD, PHD Surgeon Neurosurgery 01/20/22 Dafne Hilton MD [address] [place] [address] Specialist Cardiology 10/13/22 Desi Swenson, ILDA [address] [place] [address] Cardiology 02/29/24 documented as of this encounter
--- OUTSIDE RECORDS SUMMARY | 2025-05-15 15:53 | XMS_ITS | Encounter Summary ---
Author Organization [facility] Address [address] [place] [address] Care Team Providers Care Floral Designer Name Role Phone Brett Velásquez MD Primary Care Provider Reilly Stewart MD, PHD Unavailable UnaBrett Davis MD Primary Care Provider Wayne Dickson Primary Care Provider [phone] Dafne Hilton MD Unavailable [phone] Desi Swenson NP Unavailable [phone] Reason for Visit * Reason Onset Date Comments Medication Injection, Joint 02/18/2021 SCHE DULE EUFLEXXA INJ. W/DIMENSION STONE QUARRY SUPERVISOR, HAS PAID CLAIM ON FILE Encounter Details Date Type Department Care Team Description 02/18/2021 Telephone [facility] [address] [address] Hermes Ambrosio MD [address] [phone] Medication Injection, Joint (SCHEDULE EUFLEXXA INJ. W/DIMENSION STONE QUARRY SUPERVISOR, HAS PAID CLAIM ON FILE) Social History [...] Date Type Specialty Care Team Description 04/29/2027 Content Curator Report Abstract, Provider documented as of this encounter Visit Diagnoses Not on filedocumented in this encounter Care Teams Floral Designer Relationship Specialty Start Date End Date Brett Velásquez MD PCP - General Internal Medicine 04/21/16 01/25/22 Brett Velásquez MD PCP - General Internal Medicine 01/26/22 02/15/22 Wayne Jaimes [address] [place] [address] PCP - General Internal Medicine 02/16/22 Reilly Baker MD, PHD Surgeon Neurosurgery 01/20/22 Dafne Hilton MD [address] [place] [address] Specialist Cardiology 10/13/22 Dsei Swenson NP [address] [place] [address] Cardiology 02/29/24 documented as of this encounter
--- OUTSIDE RECORDS SUMMARY | 2025-05-15 15:53 | XMS_ITS | Encounter Summary ---
Author Organization [facility] Address [address] [place] [address] Care Team Providers Care Quality Systems Specialist Name Role Phone Brett Velásquez MD Primary Care Provider Reilly Stewart MD, PHD Unavailable Unava ilBrett Bailon MD Primary Care Provider Wayne Dickson Primary Care Provider [phone] Dafne Hilton MD Unavailable [phone] Desi Swenson NP Unavailable Encounter Details Date Type Department Care Team Description 10/04/2018 Release of Information Medical Records [address] [place] [address] Abstract, Provider Social History Tobacco Use Types [...] Date Type Specialty Care Team Description 04/29/2027 Cuff Cutter Report Abstract, Provider documented as of this encounter Visit Diagnoses Not on filedocumented in this encounter Care Teams Quality Systems Specialist Relationship Specialty Start Date End Date Brett Velásquez MD PCP - General Internal Medicine 04/21/16 01/25/22 Brett Velásquez MD PCP - General Internal Medicine 01/26/22 02/15/22 Wayne Jaimes [address] [place] [address] PCP - General Internal Medicine 02/16/22 Reilly Baker MD, PHD Surgeon Neurosurgery 01/20/22 Dafne Hilton MD [address] [place] [address] Specialist Cardiology 10/13/22 Desi Swenson NP [address] [place] [address] Cardiology 02/29/24 documented as of this encounter
--- OUTSIDE RECORDS SUMMARY | 2025-05-15 15:53 | XMS_ITS | Encounter Summary ---
Author Organization [facility] Address [address] [place] [address] Care Team Providers Care Char Filter Operator Name Role Phone Brett Velásquez MD Primary Care Provider Reilly Stewart MD, PHD Unavailable UnaBrett Davis MD Primary Care Provider Wayne Dickson Primary Care Provider [phone] Dafne Hilton MD Unavailable [phone] Desi Swenson NP Unavailable [phone] Reason for Visit * Reason Comments E-prescribe Rx Request Encounter Details Date Type Department Care Team Description 05/05/2021 Refill [facility] [address] [address] Hermes Alegre MD [address] [address] E-prescribe Rx Request Social History [...] Date Type Specialty Care Team Description 04/29/2027 Ladle Patcher Report Abstract, Provider documented as of this encounter Visit Diagnoses Not on filedocumented in this encounter Care Teams Char Filter Operator Relationship Specialty Start Date End Date Brett Velásquez MD PCP - General Internal Medicine 04/21/16 01/25/22 Brett Velásquez MD PCP - General Internal Medicine 01/26/22 02/15/22 Wayne Jaimes [address] [place] [address] PCP - General Internal Medicine 02/16/22 Reilly Baker MD, PHD Surgeon Neurosurgery 01/20/22 Dafne Hilton MD [address] [place] [address] Specialist Cardiology 10/13/22 Desi Swenson NP [address] [place] [address] Cardiology 02/29/24 documented as of this encounter
--- OUTSIDE RECORDS SUMMARY | 2025-05-15 15:53 | XMS_ITS | Encounter Summary ---
Author Organization [facility] Address [address] [place] [address] Care Team Providers Care Signal Maintainer Helper Name Role Phone Reilly Baker MD, PHD Unavailable Unava Wayne Blackman Primary Care Provider [phone] Dafne Hilton MD Unavailable [phone] Desi Swenson NP Unavailable [phone] Reason for Visit * Reason Onset Date Comments Provider Call Back 08/17/2023 Encounter Details Date Type Department Care Team Description 08/17/2023 Telephone Gastroenterology - [address] [place] [address] Kevin Oliva PA-C Provider Call Back Social History Tobacco Use [...] Date Type Specialty Care Team Description 04/29/2027 Emergency Medicine Physician Report Abstract, Provider documented as of this encounter Visit Diagnoses Not on filedocumented in this encounter Care Teams Signal Maintainer Helper Relationship Specialty Start Date End Date Wayne Jaimes [address] [place] [address] PCP - General Internal Medicine 02/16/22 Reilly Baker MD, PHD Surgeon Neurosurgery 01/20/22 Dafne Hilton MD [address] [place] [address] Specialist Cardiology 10/13/22 Desi Swenson NP [address] [place] [address] Cardiology 02/29/24 documented as of this encounter
--- OUTSIDE RECORDS SUMMARY | 2025-05-15 15:53 | XMS_ITS | Encounter Summary ---
Author Organization [facility] Address [address] [place] [address] Care Team Providers Care Circuit Rider Name Role Phone Brett Velásquez MD Primary Care Provider Keisha Luna MD Primary Care Provider [phone] Brett Velásquez MD Primary Care Provider Reilly Stewart MD, PHD Unavailable Unava ilable Brett Velásquez MD Primary Care Provider Wayne Dickson Primary Care Provider [phone] Dafne Hilton MD Unavailable [phone] Desi Swenson NP Unavailable [phone] Encounter Details Date Type Department Care Team Description 05/30/2013 Release of Information Medical Records [address] [place] [address] Abstract, Provider Social History Tobacco Use Types [...] Date Type Specialty Care Team Description 04/29/2027 Varnishing Unit Tool Setter Report Abstract, Provider documented as of this encounter Visit Diagnoses Not on filedocumented in this encounter Care Teams Circuit Rider Relationship Specialty Start Date End Date Brett Velásquez MD PCP - General Internal Medicine 10/29/11 06/19/15 Keisha Chavez MD [address] [place] [address] PCP - General Internal Medicine 06/20/15 04/20/16 Brett Velásquez MD PCP - General Internal Medicine 04/21/16 01/25/22 Brett Velásquez MD PCP - General Internal Medicine 01/26/22 02/15/22 Wayne Jaimes [address] [place], [place] [address] PCP - General Internal Medicine 02/16/22 Reilly Baker MD, PHD [address] [place] [address] Surgeon Neurosurgery 01/20/22 Dafne Hilton MD [address] [place] [address] Specialist Cardiology 10/13/22 Desi Swenson NP [address] [place] [address] Cardiology 02/29/24 documented as of this encounter
--- OUTSIDE RECORDS SUMMARY | 2025-05-15 15:53 | XMS_ITS | Encounter Summary ---
Author Organization [facility] Address [address] [place] [address] Care Team Providers Care Language Path Name Role Phone Shelbie Upton MD Primary Care Provider [phone] Encounter Details Date Type Department Care Team (Late st Contact Info) Description 05/09/2025 Telephone Orthopedics - [place] [address] [place] [phone] Amadeo Sofia PA [address] [place] [phone] Social History Tobacco Use Types Packs/Day Years [...] as of this encounter Progress Notes * Carine Morris MA - 05/11/2025 11:34 AM EDT Spoke with Meryl at patient insurance co/pharmacy [facility], She states that the PA obtained by our [place] office will cover the Euflexxa even if it is given at a different office location. The PA Auth # is [id number] good 10/19/24- 10/19/25. This PA approval was scanned in on 11/23/24. She states this Auth will cover any Euflexxa injections given in that time period as long as they are 6 months apart. Patient gets these injections every 6 months and is due on or after Jun 09 2025. vf * Carine Morris MA - 05/09/2025 3:41 PM EDT Patient is not due for these injections until Jun 09, they have to be 6 months apart. Patient hadB/L Euflexxa injections at his orthopedic providers office [facility] in November. * SUSAN Razo - 05/09/2025 3:17 PM EDT Please request authorization for viscosupplementation both knees documented in this encounter Plan of Treatment Upcoming Encounters Date Type Department Care Team (Late st Contact Info) Description 08/08/2025 1:45 PM EST Office Visit Pulmonology - [place] [address] [facility] [address] [place] [phone] Jose Benjamin MD [address] [place] [phone] 11/14/2025 3:00 PM EDT Office Visit Nephrology [address] [phone] Eduard Mccormick MD [address] [facility] [address] [place] [address] documented as of this encounter Visit Diagnoses Not on filedocumented in this encounter Care Teams Language Path Relationship Specialty Start Date End Date Shelbie Upton MD [address] [place], [place] [address] PCP - General Internal Medicine 10/31/24 documented as of this encounter
--- OUTSIDE RECORDS SUMMARY | 2025-05-15 15:54 | XMS_ITS | Clinical Summary ---
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 I have encouraged him to do so. [...] 54 03/21/2024 10:10 AM EDT Temperature 36.4 C (97.6 F) 12/20/2023 8:29 AM EDT Respiratory Rate 14 12/20/2023 8:29 AM EDT Oxygen Saturation 96% 03/21/2024 10:10 AM EDT Inhaled Oxygen Concentration - - Weight 64.9 kg (143 lb) 03/21/2024 10:10 AM EDT Height 167.6 cm (5' 6 ) 03/21/2024 10:10 AM EDT Body Mass Index 23.08 03/21/2024 10:10 AM EDT Plan of Treatment Upcoming Encounters Date Type Specialty Care Team Description 04/29/2027 Stiff Straw Hat Washer Report Abstract, Provider Health Maintenance Due Date Last Done Comments DEPRESSION SCREEN 04/06/2024 04/06/2023 (Co mpleted), 10/29/2021, 07/09/2021 (Completed) FALL RISK ASSESSMENT 04/06/2024 04/06/2023 (Completed), 07/09/2021 (Completed) DEPRESSION SCREENING/FOLLOWUP 07/12/2024 (Completed), 10/29/2021 (Completed), 07/09/2021 (Completed), Additional history exists Covid-19 Vaccine (2022-2 4 season) 2025 04/23/2021, 10/22/2020, 10/22/2020, Additional history exists INFLUENZA (#1) 2025 04/06/2023, 03/13, 04/09/2020, Additional history exists COLON CANCER SCREENING 09/08/2028, 02/14/2019 (External Completion), 02/14/2019, Additional history exists CHOLESTEROL SCREENING 03/06/2029 03/06/2024 , 08/17/2023, 04/05/2023, Additional history exists DTAP/TDAP/TD (3 - Td or Tdap) 04/26/2030 04/26/2020, 08/31/2012 SHINGLES VACCINE Completed 01/24/2020, , 09/06/2019, Additional history exists PNEUMOCOCCAL VACCINE Completed 04/09/2020, 04/28/20 19 HEPATITIS C SCREENING Completed 04/18/2020, 013 Care Teams Felt Cementer Relationship Specialty Start Date End Date Wayne Jaimes [address] [place] [address] PCP - General Internal Medicine 02/16/22 Reilly Baker MD, PHD Surgeon Neurosurgery 01/20/22 Dafne Hilton MD [address] [place] [address] Specialist Cardiology 10/13/22 Desi Swenson NP [address] [place] [address] Cardiology 02/29/24
--- OUTSIDE RECORDS SUMMARY | 2025-05-15 15:54 | XMS_ITS | Encounter Summary ---
Author Organization [facility] Address [address] [place] [address] Care Team Providers Care Securities Settlement Processor Name Role Phone Brett Velásquez MD Primary Care Provider Reilly Stewart MD, PHD Unavailable Unava ilBrett Bailon MD Primary Care Provider Wayne Dickson Primary Care Provider [phone] Dafne Hilton MD Unavailable [phone] Desi Swenson NP Unavailable [phone] Encounter Details Date Type Department Care Team Description 07/21/2019 Release of Information Medical Records [address] [place] [address] Abstract, Provider Social History Tobacco Use Types [...] Date Type Specialty Care Team Description 04/29/2027 Pound Attendant Report Abstract, Provider documented as of this encounter Visit Diagnoses Not on filedocumented in this encounter Care Teams Securities Settlement Processor Relationship Specialty Start Date End Date Brett Velásquez MD PCP - General Internal Medicine 04/21/16 01/25/22 Brett Velásquez MD PCP - General Internal Medicine 01/26/22 02/15/22 Wayne Jaimes [address] [place] [address] PCP - General Internal Medicine 02/16/22 Reilly Baker MD, PHD Surgeon Neurosurgery 01/20/22 Dafne Hilton MD [address] [place] [address] Specialist Cardiology 10/13/22 Desi Swenson NP [address] [place] [address] Cardiology 02/29/24 documented as of this encounter
--- OUTSIDE RECORDS SUMMARY | 2025-05-15 15:54 | XMS_ITS | Encounter Summary ---
Author Organization [facility] Address [address] [place] [address] Care Team Providers Care Multimedia Author Name Role Phone Reilly Baker MD, PHD Unavailable Unava ilable Wayne Jaimes Primary Care Provider [phone] Dafne Hilton MD Unavailable [phone] Desi Swenson NP Unavailable [phone] Encounter Details Date Type Department Care Team Description 06/22/2023 Economic Consultant Report Medical Records [address] [place] [address] Vladislav Antunez DO Social History Tobacco Use [...] Date Type Specialty Care Team Description 04/29/2027 Economic Consultant Report Abstract, Provider documented as of this encounter Visit Diagnoses Not on filedocumented in this encounter Care Teams Multimedia Author Relationship Specialty Start Date End Date Wayne Jaimes [address] [place] [address] PCP - General Internal Medicine 02/16/22 Reilly Baker MD, PHD Surgeon Neurosurgery 01/20/22 Dafne Hilton MD [address] [place] [address] Specialist Cardiology 10/13/22 Desi Swenson NP [address] [place] [address] Cardiology 02/29/24 documented as of this encounter
--- OUTSIDE RECORDS SUMMARY | 2025-05-15 15:54 | XMS_ITS | Encounter Summary ---
Author Organization [facility] Address [address] [place] [address] Care Team Providers Care Friction Saw Operator Name Role Phone Reilly Baker MD, PHD Unavailable Unava ilable Wayne Jaimes Primary Care Provider Dafne Hilton MD Unavailable [phone] Desi Swenson NP Unavailable [phone] Encounter Details Date Type Department Care Team Description [facility] [address] [facility] [address] [place] [id number] Ena Whipple PA-C [address] [address] Social History Tobacco Use Types Packs/Day Years [...] Date Type Specialty Care Team Description 04/29/2027 Finishing Operator Report Abstract, Provider documented as of this encounter Visit Diagnoses Not on filedocumented in this encounter Care Teams Friction Saw Operator Relationship Specialty Start Date End Date Wayne Jaimes [address] [place] [address] PCP - General Internal Medicine 02/16/22 Reilly Bakre MD, PHD Surgeon Neurosurgery 01/20/22 Dafne Hilton MD [address] [place] [address] Specialist Cardiology 10/13/22 Desi Swenson NP [address] [place] [address] Cardiology 02/29/24 documented as of this encounter
--- OUTSIDE RECORDS SUMMARY | 2025-05-15 15:54 | XMS_ITS | Encounter Summary ---
Author Organization [facility] Address [address] [place] [address] Care Team Providers Care Etl Manager Name Role Phone Reilly Baker MD, PHD Unavailable Unava ilable Wayne Jaimes Primary Care Provider [phone] Dafne Hilton MD Unavailable [phone] Desi Swenson NP Unavailable [phone] Encounter Details Date Type Department Care Team Description 03/21/2024 Movie Projectionist Report Medical Records [address] [place] [address] Vladislav Antunez DO Social History Tobacco Use [...] Date Type Specialty Care Team Description 04/29/2027 Movie Projectionist Report Abstract, Provider documented as of this encounter Visit Diagnoses Not on filedocumented in this encounter Care Teams Etl Manager Relationship Specialty Start Date End Date Wayne Jaimes [address] [place] [address] PCP - General Internal Medicine 02/16/22 Reilly Baker MD, PHD Surgeon Neurosurgery 01/20/22 Dafne Hilton MD [address] [place] [address] Specialist Cardiology 10/13/22 Desi Swenson NP [address] [place] [address] Cardiology 02/29/24 documented as of this encounter
--- OUTSIDE RECORDS SUMMARY | 2025-05-15 15:54 | XMS_ITS | Clinical Summary ---
Author Organization [facility] Address [address] [place] [address] Care Team Providers Care Page Designer Name Role Phone Brett Velásquez MD Primary Care Provider [phone] Allergies No known active allergies Medications Medication [...] age to complete this topic Care Teams Page Designer Relationship Specialty Start Date End Date Brett Velásquez MD PCP - General Internal Medicine 10/20/17
--- OUTSIDE RECORDS SUMMARY | 2025-05-15 15:54 | XMS_ITS | Encounter Summary ---
Author Organization [facility] Address [address] [place] [address] Care Team Providers Care Medical Claims Manager Name Role Phone Reilly Baker MD, PHD Unavailable Unava ilable Wayne Jaimes Primary Care Provider [phone] Dafne Hilton MD Unavailable [phone] Desi Swenson NP Unavailable [phone] Encounter Details Date Type Department Care Team Description 06/07/2023 Hospital Medical Records [address] [place] [address] Vladislav Antunez DO Social History Tobacco Use [...] Type Specialty Care Team Description 04/29/2027 Director Drug Safety Report Abstract, Provider documented as of this encounter Visit Diagnoses Not on filedocumented in this encounter Care Teams Medical Claims Manager Relationship Specialty Start Date End Date Wayne Jaimes [address] [place] [address] PCP - General Internal Medicine 02/16/22 Reilly Baker MD, PHD Surgeon Neurosurgery 01/20/22 Dafne Hilton MD [address] [place] [address] Specialist Cardiology 10/13/22 Dsei Swenson, ILDA [address] [place] [address] Cardiology 02/29/24 documented as of this encounter
--- OUTSIDE RECORDS SUMMARY | 2025-05-15 15:54 | XMS_ITS | Encounter Summary ---
Author Organization [facility] Address [address] [place] [address] Care Team Providers Care Kiln Stoker Name Role Phone Reilly Baker MD, PHD Unavailable Unava ilWayne Osborne Primary Care Provider [phone] Dafne Hilton MD Unavailable [phone] Desi Swenson NP Unavailable [phone] Reason for Visit * Reason Onset Date Comments Anticoagulation 08/11/[address] Auguste @ [facility] Encounter Details Date Type Department Care Team Description 08/11/2023 Telephone Gastroenterology - [address] [place] [address] Yuliana Auguste MD [address] [place] [phone] Anticoagulation (Colonoscopy 09/09/2023 Dr August[facility] @ [facility] [...] Date Type Specialty Care Team Description 04/29/2027 Electrician Journeyman Wireman Report Abstract, Provider documented as of this encounter Visit Diagnoses Not on filedocumented in this encounter Care Teams Kiln Stoker Relationship Specialty Start Date End Date Wayne JaimesUsama [address] [place] [address] PCP - General Internal Medicine 02/16/22 Reilly Baker MD, PHD Surgeon Neurosurgery 01/20/22 Dafne Hilton MD [address] [place] [address] Specialist Cardiology 10/13/22 Desi Swenson NP [address] [place] [address] Cardiology 02/29/24 documented as of this encounter
--- OUTSIDE RECORDS SUMMARY | 2025-05-15 15:54 | XMS_ITS | Encounter Summary ---
Author Organization [facility] Address [address] [place] [address] Care Team Providers Care Charter And Tour Bus Driver Name Role Phone Reilly Baker MD, PHD Unavailable Unava ilable Wayne Jaimes Primary Care Provider Dafne Hilton MD Unavailable [phone] Desi Swenson NP Unavailable [phone] Encounter Details Date Type Department Care Team Description 08/06/2023 Hospital Medical Records [address] [place] [address] Ankita Yanes MD [address] [place] [address] [address] [place] [address] Social History Tobacco Use Types Packs/Day Years [...] Date Type Specialty Care Team Description 04/29/2027 Transportation Clerk Report Abstract, Provider documented as of this encounter Visit Diagnoses Not on filedocumented in this encounter Care Teams Charter And Tour Bus Driver Relationship Specialty Start Date End Date Wayne Jaimes [address] [place] [address] PCP - General Internal Medicine 02/16/22 Reilly Baker MD, PHD Surgeon Neurosurgery 01/20/22 Dafne Hilton MD [address] [place] [address] Specialist Cardiology 10/13/22 Desi Swenson NP [address] [place] [address] Cardiology 02/29/24 documented as of this encounter
--- OUTSIDE RECORDS SUMMARY | 2025-05-15 15:54 | XMS_ITS | Encounter Summary ---
Author Organization [facility] Address [address] [place] [address] Care Team Providers Care Ux Interaction Designer Name Role Phone Brett Velásquez MD Primary Care Provider Keisha Luan MD Primary Care Provider [phone] Brett Velásquez MD Primary Care Provider Reilly Stewart MD, PHD Unavailable Unava ilable Brett Velásquez MD Primary Care Provider Wayne Dickson Primary Care Provider [phone] Dafne Hilton MD Unavailable [phone] Desi Swenson NP Unavailable [phone] Encounter Details Date Type Department Care Team Description 04/26/2014 Solar Installation Foreman Report Medical Records [address] [place] [id number] Kareem Grier PA-C Social History Tobacco Use [...] Type Specialty Care Team Description 04/29/2027 Solar Installation Foreman Report Abstract, Provider documented as of this encounter Visit Diagnoses Not on filedocumented in this encounter Care Teams Ux Interaction Designer Relationship Specialty Start Date End Date Brett Velásquez MD PCP - General Internal Medicine 10/29/11 06/19/15 Keisha Chavez MD [address] [place] [address] PCP - General Internal Medicine 06/20/15 04/20/16 Brett Velásquez MD PCP - General Internal Medicine 04/21/16 01/25/22 Brett Velásquez MD PCP - General Internal Medicine 01/26/22 02/15/22 Wayne Jaimes [address] [place] [address] PCP - General Internal Medicine 02/16/22 Reilly Baker MD, PHD [address] [place] [address] Surgeon Neurosurgery 01/20/22 Dafne Hilton MD [address] [place] [address] Specialist Cardiology 10/13/22 Desi Swenson NP [address] [place] [address] Cardiology 02/29/24 documented as of this encounter
--- OUTSIDE RECORDS SUMMARY | 2025-05-15 15:54 | XMS_ITS | Encounter Summary ---
Author Organization [facility] Address [address] [place] [address] Care Team Providers Care Diagnostics Sales Developer Name Role Phone Reilly Baker MD, PHD Unavailable Unava Wayne Blackman Primary Care Provider [phone] Dafne Hilton MD Unavailable [phone] Desi Swenson NP Unavailable [phone] Reason for Visit * Reason Onset Date Comments Medication 02/25/2023 Encounter Details Date Type Department Care Team Description 02/25/2023 Telephone Gastroenterology - [address] [place] [address] Kevin Oliva PA-C Medication Social History Tobacco Use Types Packs/Day [...] [place] * Telephone Encounter - Ena sudhakar Carrasco - 02/25/2023 2:35 PM EDT Received fax from [facility], medication sucralfate (CARAFATE) 1 GM/10ML suspension, is on back order,requesting alternative documented in this encounter Plan of Treatment Upcoming Encounters Date Type Specialty Care Team Description 04/29/2027 Propeller Inspector Report Abstract, Provider documented as of this encounter Visit Diagnoses Not on filedocumented in this encounter Care Teams Diagnostics Sales Developer Relationship Specialty Start Date End Date Wayne Jaimes [address] [place] [address] PCP - General Internal Medicine 02/16/22 Reilly Baker MD, PHD Surgeon Neurosurgery 01/20/22 Dafne Hilton MD [address] [place] [address] Specialist Cardiology 10/13/22 Desi Swenson NP [address] [place] [address] Cardiology 02/29/24 documented as of this encounter
--- OUTSIDE RECORDS SUMMARY | 2025-05-15 15:54 | XMS_ITS | Encounter Summary ---
Author Organization [facility] Address [address] [place] [address] Care Team Providers Care Chain Maker Loom Control Name Role Phone Brett Velásquez MD Primary Care Provider Keisha Luna MD Primary Care Provider [phone] Brett Velásquez MD Primary Care Provider Reilly Stewart MD, PHD Unavailable Unava ilable Brett Velásquez MD Primary Care Provider Wayne Dickson Primary Care Provider [phone] Dafne Hilton MD Unavailable [phone] Desi Swenson NP Unavailable [phone] Encounter Details Date Type Department Care Team Description 11/16/2014 Generator Repairer Report Medical Records [address] [place] [address] [facility] [place] Social History Tobacco Use Types Packs/Day Years [...] Date Type Specialty Care Team Description 04/29/2027 Generator Repairer Report Abstract, Provider documented as of this encounter Visit Diagnoses Not on filedocumented in this encounter Care Teams Chain Maker Loom Control Relationship Specialty Start Date End Date Brett Velásquez MD PCP - General Internal Medicine 10/29/11 06/19/15 Keisha Chavez MD [address] [place] [address] PCP - General Internal Medicine 06/20/15 04/20/16 Brett Velásquez MD PCP - General Internal Medicine 04/21/16 01/25/22 Brett Velásquez MD PCP - General Internal Medicine 01/26/22 02/15/22 Wayne Jaimes [address] [place] [address] PCP - General Internal Medicine 02/16/22 Reilly Baker MD, PHD [address] [place] [address] Surgeon Neurosurgery 01/20/22 Dafne Hilton MD [address] [place] [address] Specialist Cardiology 10/13/22 Desi Swenson NP [address] [place] [address] Cardiology 02/29/24 documented as of this encounter
--- OUTSIDE RECORDS SUMMARY | 2025-05-15 15:54 | XMS_ITS | Encounter Summary ---
Author Organization [facility] Address [address] [place] [address] Care Team Providers Care Skin Grader Name Role Phone Brett Velásquez MD Primary Care Provider Reilly Stewart MD, PHD Unavailable Unava ilBrett Bailon MD Primary Care Provider Wayne Dickson Primary Care Provider [phone] Dafne Hilton MD Unavailable [phone] Desi Swenson NP Unavailable [phone] Encounter Details Date Type Department Care Team Description 09/05/2019 [facility] Medical Records [address] [place] [address] Vladislav Antunez DO Social History Tobacco Use [...] Date Type Specialty Care Team Description 04/29/2027 Window Shade Cloth Sewer Report Abstract, Provider documented as of this encounter Visit Diagnoses Not on filedocumented in this encounter Care Teams Skin Grader Relationship Specialty Start Date End Date Brett Velásquez MD PCP - General Internal Medicine 04/21/16 01/25/22 Brett Velásquez MD PCP - General Internal Medicine 01/26/22 02/15/22 Wayne Jaimes [address] [place] [address] PCP - General Internal Medicine 02/16/22 Reilly Baker MD, PHD Surgeon Neurosurgery 01/20/22 Dafne Hilton MD [address] [place] [address] Specialist Cardiology 10/13/22 Desi Swenson NP [address] [place] [address] Cardiology 02/29/24 documented as of this encounter
--- OUTSIDE RECORDS SUMMARY | 2025-05-15 15:54 | XMS_ITS | Encounter Summary ---
Author Organization [facility] Address [address] [place] [address] Care Team Providers Care Owner [employer] Name Role Phone Reilly Baker MD, PHD Unavailable Unava ilable Wayne Jaimes Primary Care Provider [phone] Dafne Hilton MD Unavailable [phone] Desi Sewnson NP Unavailable [phone] Encounter Details Date Type Department Care Team Description 05/11/[address] Report Medical Records [address] [place] [address] Abstract, Provider Social History Tobacco Use Types [...] Date Type Specialty Care Team Description 04/29/[address] Report Abstract, Provider documented as of this encounter Visit Diagnoses Not on filedocumented in this encounter Care Teams Owner [employer] Relationship Specialty Start Date End Date Wayne Jaimes [address] [place] [address] PCP - General Internal Medicine 02/16/22 Reilly Baker MD, PHD Surgeon Neurosurgery 01/20/22 Dafne Hilton MD [address] [place], [place] [address] Specialist Cardiology 10/13/22 Desi Swenson NP [address] [place] [address] Cardiology 02/29/24 documented as of this encounter
--- OUTSIDE RECORDS SUMMARY | 2025-05-15 15:54 | XMS_ITS | Encounter Summary ---
Author Organization [facility] Address [address] [place] [address] Care Team Providers Care Upholstery Restorer Name Role Phone Brett Velásquez MD Primary Care Provider Reilly Stewart MD, PHD Unavailable Unava ilBrett Bailon MD Primary Care Provider Wayne Dickson Primary Care Provider [phone] Dafne Hilton MD Unavailable [phone] Desi Swenson NP Unavailable [phone] Encounter Details Date Type Department Care Team Description 01/23/2019 Release of Information Medical Records [address] [place] [address] Abstract, Provider Social History Tobacco Use Types [...] Type Specialty Care Team Description 04/29/2027 Second Cook And Baker Report Abstract, Provider documented as of this encounter Visit Diagnoses Not on filedocumented in this encounter Care Teams Upholstery Restorer Relationship Specialty Start Date End Date Brett Velásquez MD PCP - General Internal Medicine 04/21/16 01/25/22 Brett Velásquez MD PCP - General Internal Medicine 01/26/22 02/15/22 Wayne Jaimes [address] [place] [address] PCP - General Internal Medicine 02/16/22 Reilly Baker MD, PHD Surgeon Neurosurgery 01/20/22 Dafne Hilton MD [address] [place] [address] Specialist Cardiology 10/13/22 Desi Swenson NP [address] [place] [address] Cardiology 02/29/24 documented as of this encounter
--- OUTSIDE RECORDS SUMMARY | 2025-05-15 15:55 | XMS_ITS | Encounter Summary ---
Author Organization [facility] Address [address] [place] [address] Care Team Providers Care Marketing [employer] Name Role Phone Brett Velásquez MD Primary Care Provider Reilly Stewart MD, PHD Unavailable Unava ilBrett Bailon MD Primary Care Provider Wayne Dickson Primary Care Provider [phone] Dafne Hilton MD Unavailable [phone] Desi Swenson NP Unavailable [phone] Encounter Details Date Type Department Care Team Description 12/11/2021 [facility] [address] [place] [address] Md Steve Social History Tobacco Use Types [...] Date Type Specialty Care Team Description 04/29/2027 Gang Drill Press Operator Report Abstract, Provider documented as of this encounter Visit Diagnoses Not on filedocumented in this encounter Care Teams Marketing [employer] Relationship Specialty Start Date End Date Brett Velásquez MD PCP - General Internal Medicine 04/21/16 01/25/22 Brett Velásquez MD PCP - General Internal Medicine 01/26/22 02/15/22 Wayne Jaimes [address] [place] [address] PCP - General Internal Medicine 02/16/22 Reilly Baker MD, PHD Surgeon Neurosurgery 01/20/22 Dafne Hilton MD [address] [place] [address] Specialist Cardiology 10/13/22 Desi Swenson NP [address] [place] [address] Cardiology 02/29/24 documented as of this encounter
--- OUTSIDE RECORDS SUMMARY | 2025-05-15 15:55 | XMS_ITS | Encounter Summary ---
Author Organization [facility] Address [address] [place] [address] Care Team Providers Care Rivet Hole Puncher Name Role Phone Brett Velásquez MD Primary Care Provider Reilly Stewart MD, PHD Unavailable Brett España MD Primary Care Provider Wayne Dickson Primary Care Provider Dafne Hilton MD Unavailable [phone] Desi Swenson NP Unavailable [phone] Reason for Visit * Reason Onset Date Comments Medication Injection, Joint 12/04/2021 LVM advising pt. call [facility] [phone] and provide consent to dispense Gelsyn inj to our office Encounter Details Date Type Department Care Team Description 12/04/2021 Telephone [facility] [address] [address] Ena Whipple PAVenice [address] [address] Medication Injection, Joint (LVM advising pt. call [facility] [phone] and provide consent to dispense Gelsyn inj [...] Date Type Specialty Care Team Description 04/29/2027 Laborer Hide House Report Abstract, Provider documented as of this encounter Visit Diagnoses Not on filedocumented in this encounter Care Teams Rivet Hole Puncher Relationship Specialty Start Date End Date Brett Velásquez MD PCP - General Internal Medicine 04/21/16 01/25/22 Brett Velásquez MD PCP - General Internal Medicine 01/26/22 02/15/22 Wayne Jaimes [address] [place] [address] PCP - General Internal Medicine 02/16/22 Reilly Baker MD, PHD Surgeon Neurosurgery 01/20/22 Dafne Hilton MD [address] [place] [address] Specialist Cardiology 10/13/22 Desi Swenson NP [address] [place] [address] Cardiology 02/29/24 documented as of this encounter
--- OUTSIDE RECORDS SUMMARY | 2025-05-15 15:55 | XMS_ITS | Encounter Summary ---
Author Organization [facility] Address [address] [place] [address] Care Team Providers Care Lead Custodian Name Role Phone Brett Velásquez MD Primary Care Provider Reilly Stewart MD, PHD Unavailable UnaBrett Davis MD Primary Care Provider Wayne Dickson Primary Care Provider [phone] Dafne Hilton MD Unavailable [phone] Desi Swenson NP Unavailable [phone] Encounter Details Date Type Department Care Team Description 02/16/2019 Orders Only Medical Records [address] [place] [address] Yuliana Auguste MD [address] [place] [address] Social History Tobacco Use Types Packs/Day Years [...] Type Specialty Care Team Description 04/29/2027 Senior Asp Net Developer Report Abstract, Provider documented as of this encounter Procedures Procedure Name Priority Date/Time Associated Diagnosis Comments OUTSIDE PATHOLOGY Routine 02/14/2019 documented in this encounter Results * OUTSIDE PATHOLOGY (02/14/2019) H Perez Auguste MD OUTSIDE LAB documented in this encounter Visit Diagnoses Not on filedocumented in this encounter Care Teams Lead Custodian Relationship Specialty Start Date End Date Brett Velásquez MD PCP - General Internal Medicine 04/21/16 01/25/22 Brett Velásquez MD PCP - General Internal Medicine 01/26/22 02/15/22 Wayne Jaimes [address] [place] [address] PCP - General Internal Medicine 02/16/22 Reilly Baker MD, PHD Surgeon Neurosurgery 01/20/22 Dafne Hilton MD [address] [place], [place] [id number] Specialist Cardiology 10/13/22 Desi Swenson NP [address] [place] [address] Cardiology 02/29/24 documented as of this encounter
== END 2025-05-15 14:30 | disposition home or self-care (01) ==
LOC: HO.HCS 13:07
PROVIDERS: PCP Internal Medicine
DX: I25.10 Atherosclerotic heart disease of native coronary artery without angina pectoris (principal); Z95.1 Presence of aortocoronary bypass graft; Z98.890 Other specified postprocedural states; I10 Essential (primary) hypertension; E78.5 Hyperlipidemia, unspecified
CPT/HCPCS: 93010; 99214; G2211

== ENCOUNTER → 2025-05-15 13:06 | Outpatient (BNVA) | payer OTHER, SELFPAY | PROVIDERS: PCP Internal Medicine | DX: I25.10 Atherosclerotic heart disease of native coronary artery without angina pectoris (principal); E78.5 Hyperlipidemia, unspecified; Z95.1 Presence of aortocoronary bypass graft | CPT/HCPCS: 93005; 99212 ==

== ENCOUNTER → 2025-05-16 12:48 | Outpatient (REF) | payer OTHER, SELFPAY ==
--- OUTSIDE RECORDS SUMMARY | 2025-04-30 09:45 | XMS_ITS ---
Author Organization [facility] Address [address] [address] Care Team Providers Care Tafe Lecturer Name Role Phone Fiona DURHAM, Wayne Primary Care Provider JORGE L Burks Unavailable [phone] REASON FOR VISIT 3 month f/u Encounters Encounter Location Date Provider Diagnosis [facility] [address] [address] 04/30/2025 JORGE L LI Plan Of Treatment Next Appt Details Provider Name:JORGE L LI, 05/30/2025 02:45:00 PM, [address] [address], [place], [address], Progress Notes * Mckinley LEWISOB:1955 ([age] yo M)Acc No.[id number]:04/30/2025 Progress Note Patient: Laina HERNANDEZ Provider: Lee Li DPM :1955 A ge:69 Y S ex:Male Date:04/30/2025 Address:[address] [place], [place] [id number] Pcp:Wayne Jaimes MD Subjective: * Chief Complaints: * 1 . 3 month f/u. * Medical History: Objective: * Vitals: Assessment: Plan: * Treatment: * Billing Information: * Visit Code: * Procedure Codes: * Electronic signature of LENCHO LI D.P.M on 05/16/2025 at 03:28 PM EST Sign off status: Pending * Provider: Lee Li DPM Date: 1 Generated for Tatiana lema/Nilsa/Glo on: 07/16/2024 03:28 PM EST
--- NOTE | 2025-05-16 12:51 | CA_ITS ---
Transthoracic Echocardiogram Patient (Last, First, Middle): Laina Lewis, Gender: Male Date of : 1955 Age: 69 Procedure Date: 05/16/2025 Procedure Type: Transthoracic Echocardiogram Location: OP Height: 167.64 cm Weight: 64.86 kg BSA: 1.73 m2 Heart Rate: bpm BP: 115 / 66 mmHg Expediter: Referring MD: Gino Pinto MD Acquisition Advisor: Gino Pinto MD Symptoms: I25.10 - Atherosclerotic heart disease of [place] coronary artery without... Study Quality: Good ECG Rhythm: Sinus Conclusions: - 1. Normal LV ejection fraction of 60 65% with grade 1 diastolic dysfunction 2. Mild biatrial enlargement 3. Mild aortic regurgitation 4. Mildly dilated ascending aorta 3.7 cm 5. No gross pericardial effusion Findings Left Ventricle Normal left ventricular size, thickness, and systolic function. The visually estimated ejection fraction is between 60-65%. There is paradoxical septal motion consistent with post-operative status. Spectral Doppler is indicative of an impaired relaxation filling pattern. E/E prime ratio is <8, consistent with normal filling pressures. Wall Motion Rest Echo Findings The basal inferoseptal segment is hypokinetic. The basal inferior segment is akinetic. All other scored wall segments showed normal motion. Right Ventricle Normal right ventricular cavity size and systolic function. Atria Mild biatrial enlargement. There is lipomatous hypertrophy of the interatrial septum. There is no evidence of interatrial shunt. Aortic Valve Normal aortic valve structure and function. There is no aortic valve stenosis. There is mild aortic valve regurgitation. Mitral Valve Normal mitral valve structure and function. There is trace mitral valve regurgitation. There is no mitral valve stenosis. Pulmonic Valve The pulmonic valve is likely normal. Tricuspid Valve Likely normal tricuspid valve structure and function. Tricuspid regurgitation envelope is inadequate for calculation of right ventricular systolic pressure. Normal right atrial pressure. There is no evidence of pulmonary hypertension. Great Vessels The pulmonary artery was not well visualized. There is mild dilatation of the ascending aorta measuring 3.70 cm. Small plaque is seen in the sino tubular ridge. Venous The inferior vena cava is normal in size and collapses greater than 50% with inspiration. Pericardium/Pleural There is no evidence of pericardial effusion. Prior Study Comparison Changes noted compared to prior study. mild aortic regurgitation in his noted Measurements 2D Linear Measurements IVSd: 1.07 0.6-0.9/0.6-1.0 cm LVIDd: 4.41 3.9-5.3/4.2-5.9 cm LVIDd Index: 2.55 2.4-3.2/2.2-3.1 cm/m2 LVIDs: 2.84 2.0-3.6 cm LVPWd: 1.11 0.7-1.1 cm Ao Root: 3.10 2.1-3.5 cm LA Diam: 4.20 2.7-3.8/3.0-4.0 cm LAIDs Index: 2.43 1.5-2.3 cm/m2 LV Mass: 208.44 67-162/88-224 g LV Mass Index: 120.49 43-95/49-115 g/m2 LVOT Diam: 2.00 3.0+(-)1.3 cm 2D Systolic Function EF 4C: 62.10 >55% EF 2C: 61.60 >55% EF BiP: 60.80 >55% Mitral Valve MV Pk E: 1.00 MV PK A: 0.66 MV Decel Time: 165.00 E/A: 1.50 E'Lateral: 15.60 E'Medial: 6.31 E/E' Med: 15.80 E/E' Lat: 6.40 PHT: 48.00 MVA PHT: 4.58 Decel Ross: 6.07 Aortic Valve AoV Pk Pieter: 1.66 AoV Mn Pieter: 1.07 AoV VTI: 0.40 AoV Pk Grad: 11.00 Aov Mn Grad: 6.00 LIVIER Cont.VTI: 1.87 AI Pk Pieter: 4.78 AI Ross: 3.18 LVOT LVOT Pk Pieter: 0.90 LVOT Mn Pieter: 0.58 LVOT VTI: 0.24 LVOT Pk Grad: 3.00 LVOT Mn Grad: 2.00 LVOT Diam: 2.00 LVOT Area: 3.14 Diastolic Function MV Pk E: 1.00 MV Pk A: 0.66 E/A: 1.50 E'Medial: 6.31 E/E' Med: 15.80 E' Laterial: 15.60 E/E' Lat: 6.40 Tricuspid Valve TR Pk Pieter: 2.89 TR Pk Grad: 33.00 RA Press: 3.00 RVSP: 36.00 Great Vessels Aorta Ao Root-2D: 3.10 2.0-3.7 cm Ao Asc: 3.70 2.1-3.4 cm Pulmonary Veins Pulm Vein S/D 0.90 Pulmonary Valve PV Pk Pieter: 1.16 Peak PV Grad: 5.00 Updated in Other Vendor System with Status of Final Gino Pinto MD electronically signed on 05/16/2025 2:33:33 PM with status of Final
--- OUTSIDE RECORDS SUMMARY | 2025-05-16 15:28 | XMS_ITS | Encounter Summary ---
Author Organization [facility] Address [address] [place] [address] 7 [place] [address] Care Team Providers Care Forex Trader Name Role Phone Unavailable Primary Care Provider Unavailabl e Encounter Details Date Type Department Care Team (Latest Contact Info) Description 01/23/2022 Abstract [facility] CONVERSIONS Dental, Provider, DDS Social [...]
--- OUTSIDE RECORDS SUMMARY | 2025-05-16 15:28 | XMS_ITS | Encounter Summary ---
Author Organization [facility] Address [address] [place] [address] Phone Care Team Providers Care Assistant Professor Of Surgery Name Role Phone Vitor Mclean MD Primary Care Provider [phone] Encounter Details Date Type Department Care Team (Late st Contact Info) Description 12/15/2019 Procedure Pass OR Admitting Dept - Virtual Department [address] [place] [address] Social History Tobacco Use Types Packs/Day Years [...] filedocumented in this encounter Care Teams Assistant Professor Of Surgery Relationship Specialty Start Date End Date Vitor Mclean MD [address] [facility] 200 [place] [address] PCP - General Pulmonary Disease 12/14/19 documented as of this encounter Additional Source Comments The information contained in this document represents components of the legal health record. It is not the complete legal health record.[facility]
--- OUTSIDE RECORDS SUMMARY | 2025-05-16 15:28 | XMS_ITS | Clinical Summary ---
Author Organization [facility] Address [address] [place] [address] Phone Care Team Providers Care Electric Shaver Mechanic Name Role Phone Shelbie Upton MD Primary Care Provider [phone] Allergies No known active allergies Medications bisacodyL [...] PM (R13.19) Coronary artery disease invo lving [place] coronary artery of [place] heart with angina pectoris ([facility] V24) 12/17/2022 ST elevation (STEMI) myocard ial infarction ([facility] V24, [facility] V28) 12/11/2022 Benign prostatic hyperplasia without lower [...] 05/09/2025 3:00 PM EDT Office Visit Orthopedics [address] [place] [place] [address] Amadeo Sofia PA Primary osteoarthritis of right knee (Primary Dx); Primary osteoarthritis of left knee 05/09/2025 [facility] [id number] [place] [address] Amadeo Sofia PA 05/08/2025 2:30 PM EDT Office Visit Pulmonology - [place] 175 [facility] 200 [place] [phone] Jose Benjamin MD Moderate asthma, unspecified whether complicated, unspecified whether persistent (Primary Dx); Obstructive sleep apnea 04/16/2025 Telephone Adult Medicine [address] [phone] [place] LPN 03/22/2025 3:12 PM EDT - 03/22/2025 11:59 PM EDT Hospital Encounter [facility] CT Scan [address] [place] [phone] Chronic pharyngitis; Chronic sore throat Discharge Disposition: Home or Self Care 02/22/2025 7:14 PM EDT - 02/22/2025 11:59 PM EDT Hospital Encounter [facility] MRI [address] [place] [phone] Radiculopathy, lumbar region; Spinal stenosis Discharge Disposition: [...] mellitus type 2, co ntrolled, with complications ([facility] V24, [facility] V28) DX:Diabetes mellitus type 2, controlled, with complications ([facility]) Straining with stools DX:Straini ng with stools Asthma DX:Asthma Gastric erosions DX:Gastric eros ions Passage of loose stools DX:Passa ge of loose stools Coronary artery disease invo lving [place] coronary artery of [place] heart with angina pectoris ([facility] V24) 12/17/2022 DX:Coronary artery disease involving [place] coronary artery of [place] heart with angina pectoris ([facility]) Esophageal dysmotility DX:Esopha geal dysmotility Gastritis DX:Gastritis Dysphagia DX:Dysphagia Esophageal dysmotility DX:Esopha geal dysmotility Colon polyps DX:Colon polyps History of AL (myocardial infarction) DX:History of AL (myocardial infarction) Hyperlipidemia 03/06/2024 DX:Hyperlipidemi a JENNIFER [...] Care Team (Late st Contact Info) Description 06/12/2025 4:00 PM EST Office Visit Orthopedic[address] [phone] Amadeo Sofia PA [address] [place] [phone] 06/19/2025 3:00 PM EST Office Visit Orthopedic[address] [phone] Amadeo Sofia PA [address] [place] [phone] 06/26/2025 3:15 PM EST Office Visit Orthopedic[address] [place] [phone] Amadeo Sofia PA [address] [place] [phone] 08/08/2025 1:45 PM EST Office Visit Pulmonology - [place] [address] [place] [address] Jose Benjamin MD [address] [place] [phone] 11/14/2025 3:00 PM EDT Office Visit Nephrology - [address] [phone] Eduard Mccormick MD [address] [facility] 200 [place] [address] Health Maintenance Due Date Last Done Comments Medicare Annual Wellness Visit 06/18/2022 Social Influencers of Health Screening 06/18/2022 Colorectal Cancer Screening: Colonoscopy 02/15/2024 02/14/2019 Depression Screening 07/12/2024 COVID-19 Vaccine (8 - Pfizer risk 2023- season) 2025 03/08/2024, 04/13/2023, 04/01/2022, Additional history [...] Signed Date: 03/23/2025 16:34 ET Workstation ID: [id number] Transcribed By: Self Edit Transcribed Date: 03/23/2025 [...] Signed Date: 03/23/2025 16:34 ET Workstation ID: [id number] Transcribed By: Self Edit Transcribed Date: 03/23/2025 16:10 ET Vipin Cherry MD IMG CT PROCEDURES Final R esult * Creatinine (03/22/2025 1:34 PM EDT) Creatinine 1.01 0.70 - 1.30 mg/dL LAB CHEMISTRY METHOD 03/22/2025 2:[address] [facility] eGFR 80 >=60 mL/min/1. 73m2 LAB CHEMISTRY METHOD 03/22/2025 2:[address] [facility] Comment:Calculation based on the Chronic Kidney Disease Epidemiology Collaboration (CKD-EPI) equation refit without adjustment for race. Blood Venous blood specimen / Unknown Venipuncture / Unknown 03/22/2025 1:34 PM EDT 03/22/2025 1:58 PM EDT Vipin Cherry MD LAB BLOOD ORDERABLES Maggie de la fuente Result [facility] [address] [place] [address], * BUN (03/22/2025 1:34 PM EDT) BUN 14 5 - 25 mg/dL LAB CHEMISTRY METHOD 03/22/2025 2:[address] [facility] Blood Venous blood specimen / Unknown Venipuncture / Unknown 03/22/2025 1:34 PM EDT 03/22/2025 1:58 PM EDT us Vipin Cherry MD LAB BLOOD ORDERABLES Maggie sudhakar Result [facility] [address] [place] [address], [place] [phone] * MR Lumbar Spine wo Contrast (02/22/2025 [...] Signed Date: 02/23/2025 03:53 ET Workstation ID: [id number] Transcribed By: Self Edit Transcribed Date: 02/23/2025 [...] Signed Date: 02/23/2025 03:53 ET Workstation ID: [id number] Transcribed By: Self Edit Transcribed Date: 02/23/2025 03:48 ET Vladislav Antunez DO IMG MRI PROCEDURES Final Result from Last 3 Months Insurance MEDICAID - [place] [employer] MEDICARE Care Teams Electric Shaver Mechanic Relationship Specialty Start Date End Date Shelbie Upton MD [address] [place] [address] PCP - General Internal Medicine 10/31/24
--- OUTSIDE RECORDS SUMMARY | 2025-05-16 15:28 | XMS_ITS | Clinical Summary ---
Author Organization [employer] Address [address] [place] [address] 7 [place] [address] Care Team Providers Care Marine Plumber Name Role Phone Unavailable Primary Care Provider [...]
--- OUTSIDE RECORDS SUMMARY | 2025-05-16 15:28 | XMS_ITS | Encounter Summary ---
Author Organization [facility] Address [address] [place] [address] Care Team Providers Care Statistics Professor Name Role Phone Shelbie Upton MD Primary Care Provider [phone] Encounter Details Date Type Department Care Team (Late st Contact Info) Description 05/09/2025 Telephone Orthopedics - [place] [address] [place] [phone] Amadeo Sofia PA [address] [place] [phone] Social History Tobacco Use Types Packs/Day Years [...] states that the PA obtained by our [place] office will cover the Euflexxa even if it is given at a different office location. The PA Auth # is [id number] good 10/19/24- 10/19/25. This PA approval was [...] Description 06/12/2025 4:00 PM EST Office Visit Orthopedics [address] [phone] Amadeo Sofia PA [address] [place] [phone] 06/19/2025 3:00 PM EST Office Visit Orthopedics [address] [phone] Amadeo Sofia PA [address] [place] [phone] 06/26/2025 3:15 PM EST Office Visit Orthopedics - [place] [address] [place] [address] Amadeo Sofia PA [address] [place] [address] 08/08/2025 1:45 PM EST Office Visit Pulmonology - [address] [place] [phone] Jose Benjamin MD [address] [place] [phone] 11/14/2025 3:00 PM EDT Office Visit Nephrology - [address] [phone] Eduard Mccormick MD 100 [facility] 200 [place] [phone] documented as of this encounter Visit Diagnoses Not on filedocumented in this encounter Care Teams Statistics Professor Relationship Specialty Start Date End Date Shelbie Upton MD [address] [facility] 201 [place] [address] PCP - General Internal Medicine 10/31/24 documented as of this encounter
--- OUTSIDE RECORDS SUMMARY | 2025-05-16 15:28 | XMS_ITS | Patient Health Record ---
Author Organization [facility] Address [address] [facility] [address] [place] [address] Care Team Providers Care Turn Supervisor Name Role Phone Wayne Jaimes MD Primary Care Provider JORGE L Burks Unavailable [phone] Allergies No Known Allergies Reason For Referral [...] primary osteoarthritis of the ankle and/or foot (033609529) Primary osteoarthritis, right ankle and foot (M19.071) Active confirmed Problem Localized, primary osteoarthritis of the ankle and/or foot (010769026) Primary osteoarthritis, left 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) Active confirmed Problem Plantarflexion deformity of right foot (finding) (9547998406571741) Equinus contracture of right ankle (M24.571) Active confirmed Problem Psoriasis (4276885) Psoriasis (L40.9) Active confirmed Problem Lumbar radiculopathy (634219380) Lumbar radiculopathy, right (M54.16) Active confirmed Problem Chondrocalcinosis (305715084) Calcium pyrophosphate deposition disease (CPPD) (M11.20) Active [...] N/A Encounters Encounter Location Date Provider Diagnosis [facility] [address] [address] 07/10/2024 JORGE L REDDY Onychomycosis B35.1 ; Calcium pyrophosphate deposition disease (CPPD) M11.20 ; Psoriasis L40.9 ; Hallux limitus of left foot M20.5X2 ; Hallux limitus of right foot M20.5X1 ; Lumbar radiculopathy, right M54.16 ; Achilles tendinitis, right leg M76.61 and Achilles tendinitis, left leg M76.62 [facility] [address] [address] 10/11/2024 JORGE L REDDY Onychomycosis B35.1 ; Calcium pyrophosphate deposition disease (CPPD) M11.20 ; Psoriasis L40.9 ; Hallux limitus of left foot M20.5X2 ; Hallux limitus of right foot M20.5X1 ; Lumbar radiculopathy, right M54.16 ; Achilles tendinitis, right leg M76.61 and Achilles tendinitis, left leg M76.62 [facility] [address] 01/10/2025 JORGE L REDDY Onychomycosis B35.1 ; Calcium pyrophosphate deposition disease (CPPD) M11.20 ; Infection, Pseudomonas A49.8 ; Psoriasis L40.9 ; Hallux limitus of right foot M20.5X1 ; Hallux limitus of left foot M20.5X2 ; Lumbar radiculopathy, right M54.16 ; Pain in left foot M79.672 and Pain in right foot M79.671 [facility] [address] 01/10/2025 JORGE L REDDY [facility] [address] 01/15/2025 JORGE L REDDY Onychomycosis B35.1 [facility] [address] 01/24/2025 JORGE L REDDY Onychomycosis B35.1 [facility] [address] 01/24/2025 JORGE L REDDY [facility] [address] 02/01/2025 JORGE L REDDY [facility] [address] [phone] 02/22/2025 JORGE L REDDY [facility] [address] 03/02/2025 JORGE L REDDY Assessments Encounter [...] CRISOSTOMO BARRY, 05/30/2025 02:45:00 PM, [address], [address], Insurance Providers Payer Name Payer Address Payer Phone Subscriber Number Group Number Insured Name Patient Relationship to Insured Coverage Start Date Coverage End Date [employer] care medicare community plan [address] [address] [place] [address] [id number] ANDREILaina Abbott Self - patient is the [...]
--- OUTSIDE RECORDS SUMMARY | 2025-05-16 15:28 | XMS_ITS | Encounter Summary ---
Author Organization [facility] Address [address] [place] [address] 7 [place] [address] Care Team Providers Care Master Printer Name Role Phone Unavailable Primary Care Provider Unavailabl e Encounter Details Date Type Department Care Team (Latest Contact Info) Description 01/15/2021 Abstract [facility] CONVERSIONS Dental, Provider, DDS Social History Tobacco [...]
--- OUTSIDE RECORDS SUMMARY | 2025-05-16 15:28 | XMS_ITS | Encounter Summary ---
Author Organization [facility] Address [address] [facility] [address] [place] [address] Phone Care Team Providers Care Fur Buyer Name Role Phone Vitor Mclean MD Primary Care Provider [phone] Encounter Details Date Type Department Care Team (Latest Contact Info) Description 01/31/2024 Transcribe Orders Virtual Department [address] [place] [address] Kevin Oliva PA [address] [place] [address] [place] [address] Gastroesophageal reflux disease, unspecified whether esophagitis present [...] present documented in this encounter Care Teams Fur Buyer Relationship Specialty Start Date End Date Vitor Mclean MD [address] [place] [address] PCP - General Pulmonary Disease 12/14/19 documented as of this encounter Additional Source Comments The information contained in this document represents components of the legal health record. It is not the complete legal health record.[facility]
--- OUTSIDE RECORDS SUMMARY | 2025-05-16 15:28 | XMS_ITS | Clinical Summary ---
Author Organization [facility] Address [address] [facility] [address] [place] [address] Phone Care Team Providers Care Athletic Director Name Role Phone Vitor Mclean MD Primary Care Provider [phone] Allergies No known active allergies Medications diclofenac [...] this topic Medical Devices Implanted Type Area Slip Cover Maker Device Identifier Shelf Expiration Date Model / Serial / Lot Composite Augment 1.0 Cc Injectable Radiesse Vocal Cord Prolaryn Gel Nonpyrogenic - [id number] Implanted:Qty: 1 on 12/15/2019 by Vipin Cherry MD at [facility] Left: Vocal Cord [employer] 06/29/2021 [id number] / [id number] / [id number] Insurance MEDICARE REPLACEMENT MEDICARE REPLACEMENT MEDICARE REPLACEMENT MEDICARE REPLACEMENT MEDICARE REPLACEMENT MEDICARE REPLACEMENT Care Teams Athletic Director Relationship Specialty Start Date End Date Vitor Mclean MD [address] [place] [address] PCP - General Pulmonary Disease 12/14/19 Additional Source Comments The information contained in this document represents components of the legal health record. It is not the complete legal health record.[facility]
--- OUTSIDE RECORDS SUMMARY | 2025-05-16 15:29 | XMS_ITS | Clinical Summary ---
Author Organization [facility] Address [address] [place] [address] Care Team Providers Care Chain Pegger Name Role Phone Brett Velásquez MD Primary Care Provider [phone] Allergies No known active allergies Medications Medication [...] age to complete this topic Care Teams Chain Pegger Relationship Specialty Start Date End Date Brett Velásquez MD PCP - General Internal Medicine 10/20/17
== END ==
LOC: HO.CARD 12:48
PROVIDERS: PCP Internal Medicine; Visit Provider Internal Medicine Cardiovascular Disease
DX: R07.9 Chest pain, unspecified (principal); I25.10 Atherosclerotic heart disease of native coronary artery without angina pectoris
CPT/HCPCS: 93306

== ENCOUNTER → 2025-05-16 12:51 | Outpatient (BNV) | payer OTHER, SELFPAY | PROVIDERS: PCP Internal Medicine; Visit Provider Internal Medicine Cardiovascular Disease | DX: I51.7 Cardiomegaly (principal); I35.1 Nonrheumatic aortic (valve) insufficiency; I77.810 Thoracic aortic ectasia | CPT/HCPCS: 93306 ==

== ENCOUNTER 2025-05-28 15:02 | Outpatient (AMB) | payer OTHER, SELFPAY ==
--- OUTSIDE RECORDS SUMMARY | 2025-04-30 09:45 | XMS_ITS ---
Author Organization [facility] Address [address] [address] Care Team Providers Care Telephone Advice Nurse Name Role Phone Fiona DURHAM, Wayne Primary Care Provider JORGE L Burks Unavailable [phone] REASON FOR VISIT 3 month f/u Encounters Encounter Location Date Provider Diagnosis [facility] [address] [address] 04/30/2025 JORGE L LI Plan Of Treatment Next Appt Details Provider Name:JORGE L LI, 05/30/2025 02:45:00 PM, [address] [address], [place], [address], Progress Notes * Mckinley LEWISOB:1955 ([age] yo M)Acc No.[id number]:04/30/2025 Progress Note Patient: Laina HERNANDEZ Provider: Lee Li DPM :1955 A ge:69 Y S ex:Male Date:04/30/2025 Address:[address] [place], [place] [phone] Pcp:Wayne Jaimes MD Subjective: * Chief Complaints: * 1 . 3 month f/u. * Medical History: Objective: * Vitals: Assessment: Plan: * Treatment: * Billing Information: * Visit Code: * Procedure Codes: * Electronic signature of LENCHO LI D.P.M on 05/29/2025 at 05:36 AM EST Sign off status: Pending * Provider: Lee Li DPM Date: 1 Generated for Tatiana lema/Nilsa/Glo on: 07/29/2024 05:36 AM EST
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
[2025-05-28 15:18] VITALS: BP 110/58; PULSE 58; RESP 12; TEMP 36.6; O2SAT 97; BMI 22.9
--- OUTSIDE RECORDS SUMMARY | 2025-05-29 05:35 | XMS_ITS | Patient Health Record ---
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 Name Role Phone Wayne Jaimes MD Primary Care Provider JORGE L Burks Unavailable [phone] Allergies No Known Allergies Reason For Referral [...] primary osteoarthritis of the ankle and/or foot (545390768) Primary osteoarthritis, right ankle and foot (M19.071) Active confirmed Problem Localized, primary osteoarthritis of the ankle and/or foot (394430861) Primary osteoarthritis, left 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) Active confirmed Problem Plantarflexion deformity of right foot (finding) (3697022121968112) Equinus contracture of right ankle (M24.571) Active confirmed Problem Psoriasis (3167859) Psoriasis (L40.9) Active confirmed Problem Lumbar radiculopathy (194227308) Lumbar radiculopathy, right (M54.16) Active confirmed Problem Chondrocalcinosis (329516696) Calcium pyrophosphate deposition disease (CPPD) (M11.20) Active [...] N/A Encounters Encounter Location Date Provider Diagnosis [facility] [address] [address] 07/10/2024 JORGE L REDDY Onychomycosis B35.1 ; Calcium pyrophosphate deposition disease (CPPD) M11.20 ; Psoriasis L40.9 ; Hallux limitus of left foot M20.5X2 ; Hallux limitus of right foot M20.5X1 ; Lumbar radiculopathy, right M54.16 ; Achilles tendinitis, right leg M76.61 and Achilles tendinitis, left leg M76.62 [facility] [address] [address] 10/11/2024 JORGE L REDDY Onychomycosis B35.1 ; Calcium pyrophosphate deposition disease (CPPD) M11.20 ; Psoriasis L40.9 ; Hallux limitus of left foot M20.5X2 ; Hallux limitus of right foot M20.5X1 ; Lumbar radiculopathy, right M54.16 ; Achilles tendinitis, right leg M76.61 and Achilles tendinitis, left leg M76.62 [facility] [address] 01/10/2025 JORGE L REDDY Onychomycosis B35.1 ; Calcium pyrophosphate deposition disease (CPPD) M11.20 ; Infection, Pseudomonas A49.8 ; Psoriasis L40.9 ; Hallux limitus of right foot M20.5X1 ; Hallux limitus of left foot M20.5X2 ; Lumbar radiculopathy, right M54.16 ; Pain in left foot M79.672 and Pain in right foot M79.671 [facility] [address] 01/10/2025 JORGE L REDDY [facility] [address] 01/15/2025 JORGE L REDDY Onychomycosis B35.1 [facility] [address] 01/24/2025 JORGE L REDDY Onychomycosis B35.1 [facility] [address] 01/24/2025 JORGE L REDDY [facility] [address] 02/01/2025 JORGE L REDDY [facility] [address] [address] 02/22/2025 JORGE L REDDY [facility] [address] 03/02/2025 JORGE L REDDY Assessments Encounter [...] CRISOSTOMO BARRY, 05/30/2025 02:45:00 PM, [address], [address], Insurance Providers Payer Name Payer Address Payer Phone Subscriber Number Group Number Insured Name Patient Relationship to Insured Coverage Start Date Coverage End Date [employer] care medicare community plan [address] [address] [place] [address] [id number] ANDREILaina Abbott Self - patient is the [...]
--- OUTSIDE RECORDS SUMMARY | 2025-05-29 05:35 | XMS_ITS | Clinical Summary ---
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 05/01/20 Active amiodarone (PACERONE) 200 mg tablet Take 1 tablet (200 mg total) by mouth. 04/16/20 Active acetaminophen (TYLENOL) 325 mg tablet TAKE 3 TABLETS BY MOUTH EVERY 6 HOURS. (LIMIT 4000MG OF TYLENOL/ACETAM INOPHEN PER DAY) 04/16/20 Active triamcinolone (KENALOG) 0.1 % lotion APPLY SPARINGLY TO AFFECTED AREAS TWICE DAILY NEEDED 08/24/19 Discontinu ed(Duplica te order) atorvastatin (LIPITOR) 10 mg tablet Take 1 tablet by mouth once daily 90 tablet 08/03/19 Discontinu ed(Alterna te therapy) atorvastatin (LIPITOR) 80 mg tablet Take 1 tablet (80 mg total) by mouth. at bedtime 04/16/20 Discontinu ed(Alterna te therapy) metoprolol succinate (TOPROL-XL) 25 mg 24 hr tablet Take 1 tablet (25 mg total) by mouth 1 (one) time each day. Discontinu ed(Duplica te order) docusate sodium (COLACE) 100 mg capsule Take 2 capsules (200 mg total) by mouth. 04/16/20 tiZANidine (ZANAFLEX) 4 mg tablet Take 1 tablet (4 mg total) by mouth. Discontinu ed(Duplica te order) Active Problems Problem Noted Date Diagnosed [...] PM (R13.19) Coronary artery disease invo lving [place] coronary artery of [place] heart with angina pectoris ([facility] V24) 12/17/2022 ST elevation (STEMI) myocard ial infarction ([facility] V24, [facility] V28) 12/11/2022 Benign prostatic hyperplasia [...] Encounters Date Type Department Care Team Description 05/21/2025 10:25 AM EST Lab Draw Station - [address] Isolated proteinuria 05/09/2025 3:00 PM EDT Office Visit Orthopedics [address] [phone] Amadeo Sofia PA Primary osteoarthritis of right knee (Primary Dx); Primary osteoarthritis of left knee 05/09/[address] [phone] Amadeo Sofia PA 05/08/2025 2:30 PM EDT Office Visit Pulmonology [facility] [address] [facility] [address] [place] [address] Jose Benjamin MD Moderate asthma, unspecified whether complicated, unspecified whether persistent (Primary Dx); Obstructive sleep apnea 04/16/2025 Telephone Adult Medicine [place] - [address] [phone] [place] LPN 03/22/2025 3:12 PM EDT - 03/22/2025 11:59 PM EDT Hospital Encounter [facility] CT Scan [address] [place] [address] Chronic pharyngitis; Chronic sore throat Discharge Disposition: Home or Self Care from [...] fracture repair UPPER GASTROINTESTINAL ENDOSCOPY 01/13/2017 PROCEDURE: NC UPPER GI ENDOSCOPY PERFORMED; COMMENT: normal UPPER GASTROINTESTINAL ENDOSCOPY 03/08/12 PROCEDURE: NC UPPER GI ENDOSCOPY PERFORMED; COMMENT: normal OTHER [...] Dr. Bell UPPER GASTROINTESTINAL ENDOSCOPY 09/17/2020 PROCEDURE: NC UPPER [...] mellitus type 2, co ntrolled, with complications ([facility] V24, [facility] V28) DX:Diabetes mellitus type 2, controlled, with complications ([facility]) Straining with stools DX:Straini ng with stools Asthma DX:Asthma Gastric erosions DX:Gastric eros ions Passage of loose stools DX:Passa ge of loose stools Coronary artery disease invo lving [place] coronary artery of [place] heart with angina pectoris ([facility] V24) 12/17/2022 DX:Coronary artery disease involving [place] coronary artery of [place] heart with angina pectoris ([facility]) Esophageal dysmotility DX:Esopha geal dysmotility [...] Description 06/12/2025 4:00 PM EST Office Visit Orthopedic[address] [phone] Amadeo Sofia PA [address] [place] [phone] 06/19/2025 3:00 PM EST Office Visit Orthopedic[address] [phone] Amadeo Sofia PA [address] [place] [address] 06/26/2025 3:15 PM EST Office Visit Orthopedic[address] [phone] Amadeo Sofia PA [address] [place] [address] [place] [phone] 08/08/2025 1:45 PM EST Office Visit Pulmonology - [place] [address] [place] [phone] Jose Benjamin MD [address] [place] [phone] 11/14/2025 3:00 PM EDT Office Visit Nephrology [facility] [address] [place] [address] Eduard Mccormick MD [address] [place] [address] Health Maintenance Due Date Last Done Comments Medicare Annual Wellness Visit 06/18/2022 Social Influencers of Health Screening 06/18/2022 Colorectal Cancer Screening: Colonoscopy 02/15/2024 02/14/2019 Depression Screening 07/12/2024 COVID-19 Vaccine ( season) 2025 03/08/2024, 04/13/2023, 04/01/2022, Additional history exists Falls Risk Assessment 01/30/2026 01/30/2025, 023 Hypertension/CHF/CAD Annual BMP Blood Test 05/21/2026 05/21/2025, 03/22/2025, 11/14/2024, Additional history exists Cholesterol Screening (Lipid Panel) [...] Procedure Name Priority Date/Time Associated Diagnosis Comments RENAL FUNCTION PANEL Routine 05/21/2025 10:32 AM EST Isolated proteinuria PROTEIN AND CREATININE WITH RATIO, URINE Routine 05/21/2025 10:32 AM EST Isolated proteinuria CT NECK SOFT TISSUE W CONTRAST Routine 03/22/2025 3:34 PM EDT Chronic pharyngitis Chronic sore throat CREATININE, SERUM STAT 03/22/2025 1:3 4 PM EDT Dystonic dysphonia BUN STAT 03/22/2025 1:34 PM EDT Dystonic dysphonia from Last 3 Months Results * Protein and creatinine with ratio, urine (05/21/2025 10:32 AM EST) Protein, Urine 8 mg/dL LAB CHEMISTRY METHOD 05/21/2025 9:[address] [facility] Prot/Creat, Ur 0.11 <=0.20 mg/mg creat LAB CHEMISTRY METHOD 05/21/2025 9:[address] [facility] Creatinine, Urine 76.0 mg/dL LAB CHEMISTRY METHOD 05/21/2025 9:25 PM [facility] Urine Urine specimen obtained by clean catch procedure / Unknown Non-blood Collection / Unknown 05/21/2025 10:32 AM EST 05/21/2025 10:32 AM EST us Eduard Mccormick MD LAB URINE ORDERABLES Final Resu lt [facility] [address] [place] [address], [place] [phone] * (ABNORMAL) Renal function panel (05/21/2025 10:32 AM EST) Sodium 141 133 - 145 mmol/L LAB CHEMISTRY METHOD 05/21/2025 8:20 PM [facility] Potassium 3.8 3.5 - 5.5 mmol/L LAB CHEMISTRY METHOD 05/21/2025 8:20 PM [facility] Chloride 107 96 - 110 mmol/L LAB CHEMISTRY METHOD 05/21/2025 8:20 PM [facility] CO2 30 21 - 32 mmol/L LAB CHEMISTRY METHOD 05/21/2025 8:20 PM [facility] Anion Gap 4 3 - 11 LAB CHEMISTRY METHOD 05/21/2025 8:20 PM [facility] Glucose 153(H) 70 - 100 mg/dL LAB CHEMISTRY METHOD 05/21/2025 8:20 PM [facility] BUN 10 5 - 25 mg/dL LAB CHEMISTRY METHOD 05/21/2025 8:20 PM [facility] Creatinine 1.00 0.70 - 1.30 mg/dL LAB CHEMISTRY METHOD 05/21/2025 8:20 PM [facility] eGFR 80 >=60 mL/min/1. 73m2 LAB CHEMISTRY METHOD 05/21/2025 8:20 PM [facility] Comment:Calculation based on the Chronic Kidney Disease Epidemiology Collaboration (CKD-EPI) equation refit without adjustment for race. BUN/Creatinine Ratio 10.0 LAB CHEMISTRY METHOD 05/21/2025 8:[address] [facility] Albumin 3.5 3.2 - 5.0 g/dL LAB CHEMISTRY METHOD 05/21/2025 8:[address] [facility] Calcium 8.8 8.5 - 10.5 mg/dL LAB CHEMISTRY METHOD 05/21/2025 8:[address] [facility] Phosphorus 3.8 2.5 - 4.5 mg/dL LAB CHEMISTRY METHOD 05/21/2025 8:[address] [facility] Blood Venous blood specimen / Unknown Venipuncture / Unknown 05/21/2025 10:32 AM EST 05/21/2025 10:32 AM EST us Eduard Mccormick MD LAB BLOOD ORDERABLES Final Resu lt [facility] [address] [place] [address], * CT Neck Soft Tissue w Contrast [...] Signed Date: 03/23/2025 16:34 ET Workstation ID: [id number] Transcribed By: Self Edit Transcribed Date: 03/23/2025 [...] Signed Date: 03/23/2025 16:34 ET Workstation ID: [id number] Transcribed By: Self Edit Transcribed Date: 03/23/2025 [...] ORDERABLES Maggie l Result Performing Organization Address [facility] Co de Phone Number [facility] [address] [place] [address], * BUN (03/22/2025 1:34 PM EDT) BUN 14 5 - 25 mg/dL LAB CHEMISTRY METHOD 03/22/2025 2:[address] [facility] Blood Venous blood specimen / Unknown Venipuncture / Unknown 03/22/2025 1:34 PM EDT 03/22/2025 1:58 PM EDT Vipin Cherry MD LAB BLOOD ORDERABLES Maggie l Result [facility] [address] [place] [address], from Last 3 Months Insurance MEDICAID - [place] [employer] MEDICARE Care 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
--- OUTSIDE RECORDS SUMMARY | 2025-05-29 05:35 | XMS_ITS | Clinical Summary ---
Author Organization [facility] Address [address] [place] [phone] Phone Care Team Providers Care Communications Equipment Installer Name Role Phone Shelbie Upton MD Primary Care Provider [phone] Allergies No known active allergies Medications albuterol [...] time each day 90 tablet 3 4 Active Active Problems Problem Noted Date Diagnosed [...] (02/03/2024): Seeing Dr. Huggins yearly Herpes zoster 10/15/2017 Lumbar disc prolapse with radiculopathy 12/11/19 17 Osteoarthritis 12/10/2016 Overview (02/03/2024): Thoracic, & Lumbosacral Spine, Knees, Big Toe Esophageal reflux 11/28/2014 Mild tricuspid valve regurgitation 10/18/2014 Proteinuria 09/27/2014 Overview (02/03/2024): Sees Dr. Mccormick Microscopic hematuria 07/13/2013 Overview (02/03/2024): negative urological workup. Dr. Huggins Gout 12/17/2011 Overview (02/03/2024): Possible diagnosis Encounters Date Type Department Care Team Description 05/15/2025 Orders Only [facility] [address] [phone] Kita Coyle Isolated proteinuria (Primary Dx) from Last 3 Months Family History Medical [...] Care Team (Late st Contact Info) Description 06/01/2025 11:00 AM EST Office Visit [facility] [address]. [address] [address] Eduard Mccormick MD [address] [address] Health Maintenance Due Date Last Done Comments [...] Comments PROTEIN / CREATININE RATIO, URINE Routine 05/21/2025 10:32 AM EST Isolated proteinuria RENAL FUNCTION PANEL Routine 05/21/2025 10:32 AM EST Isolated proteinuria from Last 3 Months Results * Protein, Total, Random Urine w/Creatinine (Protein/Creat Ratio) (05/21/2025 10:32 AM EST) Pathologist [facility] Protein, Ur 8 mg/dL [facility] Urine Protein/Creati nine Ratio 0.11 <=0.20 mg/mg creat [facility] Creatinine, Urine 76.0 mg/dL [facility] Urine Urine specimen obtained by clean catch procedure / Unknown 05/21/2025 10:32 AM EST 05/21/2025 11:47 AM EST us Eduard Mccormick MD LAB URINE ORDERABLES Final Resu lt NED [facility] [address] [place] [address] * (ABNORMAL) Renal Function Panel (05/21/2025 10:32 AM EST) Pathologist [facility] Sodium 141 133 - 145 mmol/L [facility] Potassium 3.8 3.5 - 5.5 mmol/L [facility] Chloride 107 96 - 110 mmol/L [facility] Bicarbonate (CO2) 30 21 - 32 mmol/L [facility] Anion Gap 4 3 - 11 [facility] Glucose 153(H) 70 - 100 mg/dL [facility] BUN 10 5 - 25 mg/dL [facility] Creatinine Serum 1.00 0.70 - 1.30 mg/dL [facility] eGFR 80 >=60 mL/min/1. 73m2 [facility] Comment:Calculation based on the Chronic Kidney Disease Epidemiology Collaboration (CKD-EPI) equation refit without adjustment for race. BUN/Creatinine Ratio 10.0 [facility] Albumin 3.5 3.2 - 5.0 g/dL [facility] Calcium 8.8 8.5 - 10.5 mg/dL [facility] Phosphorus 3.8 2.5 - 4.5 mg/dL [facility] Blood Venous blood / Unknown 05/21/2025 10:32 AM EST 05/21/2025 3:06 PM EST us Eduard Mccormick MD LAB BLOOD ORDERABLES Final Resu lt NED [facility] [address] [place] [address] from Last 3 Months Insurance [place] [facility] ([id number]) [facility] ([id number]) [place] Care Teams Communications Equipment Installer Relationship Specialty Start Date End Date Shelbie Upton MD [address] [place] [address], [address] [place], [place] [id number] PCP - General Internal Medicine 02/04/24
--- OUTSIDE RECORDS SUMMARY | 2025-05-29 05:36 | XMS_ITS | Encounter Summary ---
Author Organization [facility] Address [address] [place] [address] Phone Care Team Providers Care Accounting File Clerk Name Role Phone Vitor Mclean MD Primary Care Provider [phone] Encounter Details Date Type Department Care Team (Latest Contact Info) Description 01/31/2024 Transcribe Orders Virtual Department [address] [place] [address] Kevin Oliva PA [address] [place] [address] [place] [id number] Gastroesophageal reflux disease, unspecified whether esophagitis present [...] present documented in this encounter Care Teams Accounting File Clerk Relationship Specialty Start Date End Date Vitor Mclean MD [address] [place] [address] PCP - General Pulmonary Disease 12/14/19 documented as of this encounter Additional Source Comments The information contained in this document represents components of the legal health record. It is not the complete legal health record.[facility]
--- OUTSIDE RECORDS SUMMARY | 2025-05-29 05:36 | XMS_ITS | Clinical Summary ---
Author Organization [facility] Address [address] [facility] [address] [place] [address] Phone Care Team Providers Care Metal Building Assembler Name Role Phone Vitor Mclean MD Primary Care Provider [phone] Allergies No known active allergies Medications diclofenac [...] patient's age to complete this topic IPV VACCINES Aged Out No longer eligi ble based on patient's age to complete this topic MENINGOCOCCAL VACCINES (ACWY) Aged Out No longer eligible based on patient's age to complete this topic MENINGOCOCCAL VACCINES (B) Aged Out N o longer eligible based on patient's age to complete this topic Medical Devices Implanted Type Area Car Stereo Installer Device Identifier Shelf Expiration Date Model / Serial / Lot Composite Augment 1.0 Cc Injectable Radiesse Vocal Cord Prolaryn Gel Nonpyrogenic - [id number] Implanted:Qty: 1 on 12/15/2019 by Vipin Cherry MD at [facility] [place] [facility] Left: Vocal Cord [employer] 06/29/2021 [id number] / [id number] / [id number] Insurance MEDICARE REPLACEMENT Member Subscriber Plan / Payer ( fective 2022-Present) Name:Laina Lewis Relation to Subscriber:Self Name:Laina Lewis Payer ID:[id number] (NAIC) Group ID:Not on file Type:Medicare Address: [place] [id number] MEDICARE REPLACEMENT MEDICARE REPLACEMENT Member Subscriber Plan / Payer (Ef fective 2022-) Name:Laina Lewis Relation to Subscriber:Self Name:Laina Lewis Payer ID:[id number] (NAIC) Group ID:Not on file Type:Medicare Address: [place] [id number] MEDICARE REPLACEMENT Member Subscriber Plan / Payer (Ef fective 2022-) Name:Laina Lewis Relation to Subscriber:Self Name:Laina Lewis Payer ID:[id number] (NAIC) Group ID:Not on file Type:Medicare Address: [place] [id number] MEDICARE REPLACEMENT Care Teams Metal Building Assembler Relationship Specialty Start Date End Date Vitor Mclean MD [address] [place] [address] PCP - General Pulmonary Disease 12/14/19 Additional Source Comments The information contained in this document represents components of the legal health record. It is not the complete legal health record.[facility]
--- OUTSIDE RECORDS SUMMARY | 2025-05-29 05:36 | XMS_ITS | Encounter Summary ---
Author Organization [facility] Address [address] [address] [place] [address] Phone Care Team Providers Care Piping Manager Name Role Phone Vitor Mclean MD Primary Care Provider Encounter Details Date Type Department Care Team (Late st Contact Info) Description 12/15/2019 Procedure Pass OR Admitting Dept - Virtual Department [address] [place] [address] Social History Tobacco Use Types Packs/Day Years [...] on filedocumented in this encounter Care Teams Piping Manager Relationship Specialty Start Date End Date Vitor Mclean MD [address] [facility] [address] [place] [address] PCP - General Pulmonary Disease 12/14/19 documented as of this encounter Additional Source Comments The information contained in this document represents components of the legal health record. It is not the complete legal health record.[facility]
--- OUTSIDE RECORDS SUMMARY | 2025-05-29 05:37 | XMS_ITS | Data Portability ---
Author Organization [place] [facility] Address [address] [address] Care Team Providers Care Casino Cage Supervisor Name Role Phone SUMMER LOWE Primary [...] month. He will follow up with Dr. Cehrry after he completes voice therapy in 3 months, sooner with issues. Patient agrees with the plan. [email or web address] Not available 05/10/2024 16:24:58 Plan of Treatment Reminders Order Date Submit Date Provider Last Modified By Organization Details Last Modified Time Details Appointments None record ed. Lab None record ed. Referral speech therap y referr al 2024 025 [email or web address] [facility], [address] [place] [address] [place], [address], 14:07:54 speech therap y referr al - Appt 05/26 @ 8:30am 2023 024 [facility], [address], [address], [place], [address], 09:38:44 Procedures None record ed. Surgeries None record ed. Imaging CT, neck, soft tissue , w/ contra st - Chroni c sore throat evalua te for neopla sm. 2024 025 [email or web address] [facility] [place], [address], [address], [place], [address], 11:07:28 Medication Orders famoti dine 20 mg tablet 2024 025 [facility], [address] [place] [address], [address], 5 15:05:18 nystat in 100,00 0 unit/m L oral suspen sun 2023 024 [facility], [address] [place] [address], [address], 4 16:22:57 nystat in 100,00 0 unit/m L oral suspen sun 2023 024 [facility], [address] [place] [address], [address], 4 14:42:09 Patient TargetsNo targets recorded. Patient InstructionsNo instructions recorded. Reason for Referral Appt 05/26 @ 8:30am Referring Physician: Eneida Cherry, Otolaryngology, Encounter Date: 04/21/2024 Referring Physician: Eneida Cherry Otolaryngology, Encounter Date: 08/10/2024 Results Created Date Observation Date Name Description Value Unit Range Abnormal Flag Note LastModifiedBy Organization Detail LastModifiedTime 03/22/2003/22/2025 BUN BUN 14 mg/dL 5-25 Not Available [facility]/S Dept [address] [place], [address], 03/22/2025 14:37:11 03/22/20 25 03/22/2025 BUN note See Report [facility], [address], [place] [address] Not Available [facility]/S Dept [address] [place], [address], 03/22/2025 14:37:11 03/22/20 25 03/22/2025 CREAT ININE creatinine 1.01 mg/dL 0.70-1 .30 Not Available [facility] Dept [address], [place], [address], 03/22/2025 14:37:12 03/22/20 25 03/22/2025 CREAT ININE eGFR 80 mL/mi n/1.7 3m2 >=60 Calcu latio n based on the Chron ic Kidne y Disea se Epide miolo gy Colla borat ion (CKD- EPI) equat ion refit witho ut adjus tment for race. Not Available [facility] Dept [address] [place], [address], 03/22/2025 14:37:12 03/22/20 25 03/22/2025 CREAT ININE note See Report [facility], [address], [place], [place] [address] Not Available [facility]/S Dept [address] [place], [address], 03/22/2025 14:37:12 03/23/20 25 03/22/2025 CT, neck, soft tissu e, w/ contr ast See Note [facility] , a member of [facility] Name: ADDIE GARCIA Date of : 05/09/ 1956 Reason for Exam: CHRONI C PHARYN GITIS ,CHRON IC SORE THROAT Exam Date: 2024 [id number] EST Report Status : Final Orderi ng [...] [facility] Dept [address] [place], [address], 03/28/2025 15:08:58 Result Notes Documentation Provider Name and Address Organization Details Recorded Time Ct, Neck, Soft Tissue, W/ Contrast : See Note [facility], a member of [email or web address] Patient Name: ADDIE GARCIA Date of : 1955 Reason for Exam: CHRONIC PHARYNGITIS ,CHRONIC SORE THROAT Exam Date: 03/22/2025 [id number] EST Report Status: Final Ordering Provider: ENEIDA [...] Signed Date: 03/23/2025 16:34 ET Workstation ID: [id number] Transcribed By: Self Edit Transcribed Date: 03/23/2025 16:10 ET ENEIDA CHERRY MD [address] [place] [address], [phone], 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, unilatera l; Note: Date Diagnosed : 12/12/2019 3:31 PM (J38.01) Not Available [facility] 4 02:18:19 Sensorine ural hearing loss of bilateral ears 789478314 Active 2019 Sensorine ural hearing loss, bilateral ; Note: Date Diagnosed : 02/26/2020 3:32 PM (H90.3) Note: Date Diagnosed : 02/26/2020 3:32 PM (H90.3) Not Available [facility] 4 00:53:14 Benign paroxysma l positiona l vertigo 480395239 Active 2019 Benign paroxysma l vertigo, left ear; Note: Date Diagnosed : 02/26/2020 3:32 PM (H81.12) Not Available [facility] 4 02:18:20 Stomatiti s 59592120 Active 2020 Oral thrush; Note: Date Diagnosed : 04/14/2021 11:22 AM (B37.0) Not Available [facility] 4 02:18:55 Candidias is of mouth 60702830 Active 2020 Oral thrush; Note: Date Diagnosed : 04/14/2021 11:22 AM (B37.0) Not Available [facility] 4 02:18:55 Dysphagia 18231092 Active 2022 Dysphagia , unspecifi ed; Note: Date Diagnosed : 10/27/2021 12:05 PM (R13.10) ; Start Date : 2 Other dysphagia ; Note: Date Diagnosed : 04/07/2023 1:44 PM (R13.19) Not Available [facility] 4 02:19:19 Oropharyn geal dysphagia 57540371 Active 2023 Dysphagia , oropharyn geal phase; Note: Date Diagnosed : 09/16/2023 1:19 PM (R13.12) Not Available [facility] 4 02:19:08 Hemoptysi s 41940895 Active 2023 ENEIDA CHERRY MD [address] [facility],[place] [address], [facility] [place], [address] , [place] - [facility] 4 14:33:59 Chronic sore throat 761843895 Active 2023 ENEIDA CHERRY MD [address] [facility],[place] [address], [facility] [place], [address] , [place] - [facility] [place] 4 14:34:04 Chronic hoarsenes s 74679385829 05 Active 2023 ENEIDA CHERRY MD [address] [facility],[place] [address], [facility] [place], [address] , [place] - [facility] 4 14:42:59 Problem Notes None recorded. Procedures Surgical History Date Name Laterality Status Provider Name and Address Organization Details Recorded Time 02/09/20 25 FFL_RE completed ENEIDA CHERRY MD [address] [facility],[place] [address], [place], [address], [facility] [place] 02/08/2025 14:50:49 08/10/19 25 FFL_RE completed E[facility]IDA [facility]ERRY MD [address] [facility] [address], [place], [address], [place] - [facility] [place] 08/10/2024 15:02:15 04/21/20 24 FFL_RE completed ENEIDA CHERRY MD [address] [place] [address], [address], [place] [facility] 04/21/2024 14:41:39 transurethral prostatectomy completed Bibi Neal [place] - [facility] 05/10/2024 14:05:40 subtotal thyroidectomy completed Bibi Neal [place] - [facility] 05/10/2024 14:05:53 Imaging Results None recorded. Procedure Notes None recorded. Medical Equipment None Reported. Allergies No known drug allergies Medications Name Sig Start Date Stop Date Status Note LastModified by Organization Details LastModified Time losartan 50 mg tablet 05/06 completed Medicati on ID: [id number] B rand Name: losartan Send Method: E-Prescr [...] gram tablet 05/06 completed Medicati on ID: [id number] D uration Value: 7 Brand Name: valacycl [...] mucosal jelly 05/10 completed Medicati on ID: [id number] D uration Value: 14 Brand Name: lidocain [...] mg capsule 05/06 completed Medicati on ID: [id number] D uration Value: 90 Brand Name: tamsulos in Send Method: E-Prescr ibed Sub s Allowed: subs OK Speci al Instruct ion: TAKE ONE CAPSULE DAILY Me dication GenericN jay: tamsulos in Not Available Not Available Not Available pantopraz ole 40 mg tablet,de layed release 07/12 completed Medicati on ID: [id number] D uration Value: 30 Brand Name: pantopra [...] by mouth 07/12 completed Medicati on ID: [id number] D uration Value: 30 Prescri bed By [...] oral powder 05/10 completed Medicati on ID: [id number] D uration Value: 30 Brand Name: polyethy [...] layed release 12/11 completed Medicati on ID: [id number] Jennifer bar By Name: [address], [...] both nostrils 10/17 completed Medicati on ID: [id number] Jennifer bar By Name: [address], [...] Weaver [place] - [facility] 08/10/2024 14:29:36 Date Recorded Body height Body mass index (BMI) Body weight Provider Name and Address Organization Details Last Updated DateTime 02/08/2025 167.64 cm 27 kg/m2 59757.93 g Aakash Weaver [place] - [facility] 02/08/2025 14:31:52 Date Recorded Body height Body mass index (BMI) Body weight Provider Name and Address Organization Details Last Updated DateTime 04/21/2024 167.64 cm 27 kg/m2 29671.93 g Aakash Weaver [facility] 04/21/2024 14:00:43 Date Recorded Body height Body weight Provider Name and Address Organization Details Last Updated DateTime 05/10/2024 167.64 cm 51546.93 g Bibi Neal [place] - [facility] 05/10/2024 14:01:54 Social History None recorded. Functional Status None recorded. Mental Status None recorded. Family History Nothing Reported. Medical History Condition Response Hypertension Y Sleep Disorder Y GERD/Reflux Y Past Encounters Encounter ID Performer Location Encounter Start Date Encounter Closed Date Diagnosis/Indication Diagnosis SNOMED-CT Code Diagnosis ICD10 Code Diagnosis IMO Codes Diagnosis Note [id number] ENEIDA CHERRY MD [facility] [address] [address] 04/21/2024 13:44:06 04/21/2024 15:41:33 Hemoptysis 78192595 R04.2 resolved. laryngosco py negative today for bleeding Chronic sore throat 2754 21365 J31.2 likely due to thrush. Gastroesop hageal reflux disease without esophagitis 556774443 K21.9 continue esomeprazo le Candidiasis of mouth 797 00151 B37.0 FFL notable for montez in base of tongue. LIkely secondary to steroid inhalers. Will treat with nystatin. I asked him to call if not improved. No tumors on laryngosoc py. Chronic hoarseness 68697 [address] 105 R49.0 will make voice therapy referral to [facility] [id number] CHENG IBARRA PA-C [facility] [address] [address] 05/10/2024 13:45:35 05/10/2024 15:10:38 Candidiasis of mouth 02087963 B37.0 Chronic hoarseness 41704 32756 105 R49.0 Chronic sore throat 2754 10833 J31.2 Gastroesop hageal reflux disease without esophagitis 711173490 K21.9 [id number] ENEIDA CHERRY MD [facility] [address] [address] 08/10/2024 13:56:29 08/10/2024 15:05:58 Chronic sore throat 614283228 J31.2 no evidence of thrush. he has breakthrou gh heartburn and I think the soreness is due to LPR. I will add dual therapy for reflux with famotidine in addition to his PPI. Gastroesop hageal reflux disease without esophagitis 716961683 K21.9 begin dual thearpy Candidiasis of mouth 797 90846 B37.0 resolved Chronic hoarseness 59236 79569 105 R49.0 will make voice therapy referral to [facility] since he could not be seen at [facility] no vocal cord lesions. [id number] ENEIDA CHERRY MD [facility] [address] [place] [address] 02/08/2025 14:21:54 02/08/2025 15:05:34 Chronic sore throat 087959709 J31.2 He did not improve with dual PPI therapy and I recommend a CT of the neck with contrast to exclude any neoplastic process. Laryngosco py today showed changes consistent with reflux including erythema and cobbleston ing. I did not see any tumors. Gastroesop hageal reflux disease without esophagitis 171291669 K21.9 He can stop famotidine since he did not benefit and just remain on his PPI. Chronic hoarseness [address]271 77329 105 R49.0 No vocal cord lesions on [...] Ayala Member ID Guarantor Name 02/11/2025 1 [facility] Addie Garcia [id number] Addie Garcia Notes Date Note Type Note [...] in September 2020. ENEIDA CHERRY MD [address] [facility],[address], [address], [facility] - [facility] 04/21/2024 14:43:45 05/10/2024 text/html ROS as [...] [place]. Normal MBS. VELASQUEZ QUINTERO MD [address] [facility],[place] [address], [place], [address], [facility] - [facility] 05/11/2024 12:34:14 08/10/2024 text/html ROS as [...] in September 2020. ENEIDA CHERRY MD [address] [facility],[address], [address], [place] - [facility] 08/10/2024 15:05:10 02/08/2025 text/html ROS as noted in the HPI He has a history of hemoptysis which resolved. He has been evaluated by us for laryngoscopy and montez was noted and was treated twice for this with minimal benefit. He continues to have some throat pain and hoarseness. I referred for voice and he was seen at [facility] 01/24. Had an MBS 08/2023 which [...] in September 2020. ENEIDA CHERRY MD [address] [facility],[address], [address], [place] - [facility] [place] 02/08/2025 15:05:38
== END 2025-05-28 16:15 | disposition home or self-care (01) ==
LOC: HO.HMCFM 15:03
PROVIDERS: PCP Internal Medicine; Visit Provider Internal Medicine
DX: I25.10 Atherosclerotic heart disease of native coronary artery without angina pectoris (principal); K21.00 Gastro-esophageal reflux disease with esophagitis, without bleeding

== ENCOUNTER → 2025-05-28 15:02 | Outpatient (BNVA) | payer OTHER, SELFPAY | PROVIDERS: PCP Internal Medicine; Visit Provider Internal Medicine | DX: I25.10 Atherosclerotic heart disease of native coronary artery without angina pectoris (principal); Z95.1 Presence of aortocoronary bypass graft; K21.00 Gastro-esophageal reflux disease with esophagitis, without bleeding; I10 Essential (primary) hypertension; R05.9 Cough, unspecified; Z13.31 Encounter for screening for depression | CPT/HCPCS: 96127; 99212 ==

== ENCOUNTER 2025-05-29 10:21 | Outpatient (REF) | payer OTHER, SELFPAY ==
--- NOTE | ~2025-05-29 | XR_ITS ---
EXAMINATION: XR CHEST CLINICAL INFORMATION: R05.9 - Cough, unspecified COMPARISON: 04/04/2025 TECHNIQUE: 2 views of the chest were obtained. FINDINGS: Median sternotomy wires are new since the prior x-ray. There are also numerous clips along the left heart margin consistent with CABG. No fracture is seen in the lateral right mid chest. Lungs are clear and well aerated. Pulmonary vessels are distinct. There is no pleural effusion. There is no pneumothorax. XR/XR chest 2V IMPRESSION: No acute disease. Interval changes related to CABG. Electronically signed by: Manuel Gomez MD 05/29/2025 10:50 AM [facility]
[2025-05-29 10:31] LABS: MANUAL DIFF FLAG NO
[2025-05-29 11:06] LABS: Hematocrit 38.7 % (42.0-52.0); Hemoglobin 11.7 g/dl (14.0-18.0); Imm Gran Abs Auto 0.01 X10*3/uL (0.00-0.03); Imm Gran Pct Auto 0.3 % (0.0-0.4); Lymphocytes Absolute Auto 1.1 X10*3/uL (1.2-4.9); Mean Corpuscular HGB Conc 30.2 g/dl (31.0-36.0); Mean Corpuscular Hemoglobin 26.5 pg (27.0-33.0); Mean Corpuscular Volume 87.8 fL (80.0-98.0); NRBC Abs Auto 0.000 X10*3/uL (0.0-0.012); NRBC Pct Auto 0.0 /100WBC (0.0-0.2); Platelet Count 230 X10*3/uL (160-400); Red Blood Count 4.41 X10*6/uL (4.60-5.80); White Blood Count 3.6 X10*3/uL (4.8-10.8)
[2025-05-29 11:43] LABS: Alanine Aminotransferase 151 U/L (0-40); Albumin Level 4.4 g/dL (3.5-5.0); Alkaline Phosphatase 275 U/L (39-117); Anion Gap 12 (12-20); Aspartate Amino Transferase 74 U/L (5-37); Blood Urea Nitrogen 13 mg/dL (9-16); Calcium 9.5 mg/dL (8.4-10.2); Carbon Dioxide 29 mmol/L (22-29); Chloride 105 mmol/L (96-108); Cholesterol 112 mg/dL (<200); Estimated Glomerular Filt Rate > 60; HDL Cholesterol 59 mg/dL (>40); Potassium 4.0 mmol/L (3.3-5.1); Sodium 142 mmol/L (135-145); Total Protein 7.4 g/dL (6.5-8.0); Triglycerides 94 mg/dL (<150)
[2025-05-29 11:53] LABS: Cholesterol 109 mg/dL (<200); HDL Cholesterol 58 mg/dL (>40); Triglycerides 93 mg/dL (<150)
== END 2025-05-29 10:22 | disposition home or self-care (01) ==
LOC: HO.LAB 10:21
PROVIDERS: PCP Internal Medicine; Visit Provider Internal Medicine
DX: I25.10 Atherosclerotic heart disease of native coronary artery without angina pectoris (principal); R05.9 Cough, unspecified; K59.04 Chronic idiopathic constipation; M17.0 Bilateral primary osteoarthritis of knee; K27.9 Peptic ulcer, site unspecified, unspecified as acute or chronic, without hemorrhage or perforation; R07.9 Chest pain, unspecified; I10 Essential (primary) hypertension; Z13.1 Encounter for screening for diabetes mellitus
CPT/HCPCS: 36415; 71046; 80053; 80061; 83036; 84443; 85025

== ENCOUNTER → 2025-05-29 10:30 | Outpatient (BNV) | payer OTHER, SELFPAY | PROVIDERS: PCP Internal Medicine; Visit Provider Radiology Diagnostic Radiology | DX: R05.9 Cough, unspecified (principal) | CPT/HCPCS: 71046 ==

== ENCOUNTER 2025-06-28 13:22 | Outpatient (REF) | payer OTHER, SELFPAY ==
--- NOTE | ~2025-06-28 | XR_ITS ---
EXAMINATION: XR CHEST CLINICAL INFORMATION: R05.9 - Cough, unspecified COMPARISON: X-ray 05/29/2025 TECHNIQUE: 2 views of the chest were obtained. FINDINGS: The cardiomediastinal silhouette is within normal limits. The lungs are well expanded. There is no focal consolidation, edema, or effusion. No pneumothorax. Sternotomy wires. No acute osseous abnormality. XR/XR chest 2V IMPRESSION: No acute cardiopulmonary process. Electronically signed by: Alfred Booker MD 06/28/2025 03:49 PM EST
[2025-06-28 17:39] LABS: Resp Syncy Virus RNA Qual PCR NEGATIVE (Negative); SARS COV2 PCR INHOUSE POSITIVE (Negative)
--- OUTSIDE RECORDS SUMMARY | 2025-06-28 18:24 | XMS_ITS | Encounter Summary ---
Author Organization [employer] [facility] Prior to 05/12/2024 Address [address] [place] [address] Care Team Providers Care Environmental Technical Officer Name Role Phone Brett Velásquez MD Primary Care Provider Keisha Luna MD Primary Care Provider [phone] Brett Velásquez MD Primary Care Provider Reilly Stewart MD, PHD Unavailable [facility] Brett Vel[facility]quez MD Primary Care Provider Wayne Dickson Primary Care Provider [phone] Dafne Hilton MD Unavailable [phone] Desi Swenson NP Unavailable [phone] Encounter Details Date Type Department Care Team Description 06/28/2012 Honing Machine Operator Production Report Medical Records [address] [place] [address] Shaquille Chandra Social History Tobacco Use Types [...] Date Type Specialty Care Team Description 04/29/2027 Honing Machine Operator Production Report Abstract, Provider documented as of this encounter Visit Diagnoses Not on filedocumented in this encounter Care Teams Environmental Technical Officer Relationship Specialty Start Date End Date Brett Velásquez MD PCP - General Internal Medicine 10/29/11 06/19/15 Keisha Chavez MD [address] [place] [address] PCP - General Internal Medicine 06/20/15 04/20/16 Brett Velásquez MD PCP - General Internal Medicine 04/21/16 01/25/22 Brett Velásquez MD PCP - General Internal Medicine 01/26/22 02/15/22 Wayne Jaimes [address] [place] [address] PCP - General Internal Medicine 02/16/22 Reilly Baker MD, PHD [address] [place] [address] Surgeon Neurosurgery 01/20/22 Dafne Hilton MD [address] [place] [address] Specialist Cardiology 10/13/22 Desi Swenson NP [address] [place] [address] Cardiology 02/29/24 documented as of this encounter
--- OUTSIDE RECORDS SUMMARY | 2025-06-28 18:24 | XMS_ITS | Encounter Summary ---
Author Organization [employer] [facility] Prior to 05/12/2024 Address [address] [place] [address] Care Team Providers Care Collections Analyst Name Role Phone Keisha Chavez MD Primary Care Provider [phone] Brett Velásquez MD Primary Care Provider Reilly Stewart MD, PHD Unavailable Unaut ilBrett Bailon MD Primary Care Provider Wayne Dickson Primary Care Provider [phone] Dafne Hilton MD Unavailable [phone] Desi Swenson NP Unavailable [phone] Encounter Details Date Type Department Care Team Description 11/18/2015 Release of Information Medical Records [address] [place] [address] Abstract, Provider Social History Tobacco Use Types [...] Date Type Specialty Care Team Description 04/29/2027 Eye Physician Report Abstract, Provider documented as of this encounter Visit Diagnoses Not on filedocumented in this encounter Care Teams Collections Analyst Relationship Specialty Start Date End Date Keisha Chavez MD [address] [place] [address] PCP - General Internal Medicine 06/20/15 04/20/16 Brett Velásquez MD [address] [place] [address] PCP - General Internal Medicine 04/21/16 01/25/22 Brett Velásquez MD [address] [place] [address] PCP - General Internal Medicine 01/26/22 02/15/22 Wayne Jaimes [address] [place] [address] PCP - General Internal Medicine 02/16/22 Reilly Baker MD, PHD [address] [place] [address] Surgeon Neurosurgery 01/20/22 Dafne Hilton MD [address] [place] [address] Specialist Cardiology 10/13/22 Desi Swenson NP [address] [place] [address] Cardiology 02/29/24 documented as of this encounter
--- OUTSIDE RECORDS SUMMARY | 2025-06-28 18:24 | XMS_ITS | Encounter Summary ---
Author Organization [employer] [facility] Prior to 05/12/2024 Address [address] [place] [address] Care Team Providers Care Strip Polisher Name Role Phone Reilly Baker MD, PHD Unavailable Unava ilable Wayne Jaimes Primary Care Provider [phone] Dafne Hilton MD Unavailable [phone] Desi Swenson NP Unavailable [phone] Encounter Details Date Type Department Care Team Description 04/19/2022 System Validation Engineer Report Medical Records [address] [place] [address] Ankita Mckeon NP Social History Tobacco Use [...] Date Type Specialty Care Team Description 04/29/2027 System Validation Engineer Report Abstract, Provider documented as of this encounter Visit Diagnoses Not on filedocumented in this encounter Care Teams Strip Polisher Relationship Specialty Start Date End Date Wayne Jaimes [address] [place], [place] [id number] PCP - General Internal Medicine 02/16/22 Reilly Baker MD, PHD Surgeon Neurosurgery 01/20/22 Dafne Hilton MD [address] [place] [address] Specialist Cardiology 10/13/22 Desi Swenson NP [address] [place] [address] Cardiology 02/29/24 documented as of this encounter
--- OUTSIDE RECORDS SUMMARY | 2025-06-28 18:24 | XMS_ITS | Encounter Summary ---
Author Organization [employer] [facility] Prior to 05/12/2024 Address [address] [place] [address] Care Team Providers Care Coffin Maker Name Role Phone Brett Velásquez MD Primary Care Provider Reilly Stewart MD, PHD Unavailable Unava ilBrett Bailon MD Primary Care Provider Wayne Dickson Primary Care Provider [phone] Dafne Hilton MD Unavailable [phone] Desi Swenson NP Unavailable [phone] Encounter Details Date Type Department Care Team Description 01/15/2020 [facility] Medical Records [address] [place] [address] [facility] Social History Tobacco Use [...] Type Specialty Care Team Description 04/29/2027 Network Design Architect Report Abstract, Provider documented as of this encounter Visit Diagnoses Not on filedocumented in this encounter Care Teams Coffin Maker Relationship Specialty Start Date End Date Brett Velásquez MD PCP - General Internal Medicine 04/21/16 01/25/22 Brett Velásquez MD PCP - General Internal Medicine 01/26/22 02/15/22 Wayne Jaimes [address] [place] [address] PCP - General Internal Medicine 02/16/22 Reilly Baker MD, PHD Surgeon Neurosurgery 01/20/22 Dafne Hilton MD [address] [place] [address] Specialist Cardiology 10/13/22 Desi Swenson NP [address] [place] [address] Cardiology 02/29/24 documented as of this encounter
--- OUTSIDE RECORDS SUMMARY | 2025-06-28 18:24 | XMS_ITS | Encounter Summary ---
Author Organization [employer] [facility] Prior to 05/12/2024 Address [address] [place] [address] Care Team Providers Care Pensions Retirement Plan Specialist Name Role Phone Brett Velásquez MD Primary Care Provider Reilly Stewart MD, PHD Unavailable Unava ilBrett Bailon MD Primary Care Provider Wayne Dickson Primary Care Provider [phone] Dafne Hilton MD Unavailable [phone] Desi Swenson NP Unavailable [phone] Encounter Details Date Type Department Care Team Description 01/24/2020 Unit Tender Report Medical Records [address] [place] [address] Aleksandar Huggins MD Social History Tobacco Use [...] Date Type Specialty Care Team Description 04/29/2027 Unit Tender Report Abstract, Provider documented as of this encounter Visit Diagnoses Not on filedocumented in this encounter Care Teams Pensions Retirement Plan Specialist Relationship Specialty Start Date End Date Brett Velásquez MD PCP - General Internal Medicine 04/21/16 01/25/22 Brett Velásquez MD PCP - General Internal Medicine 01/26/22 02/15/22 Wayne Jaimes [address] [place] [address] PCP - General Internal Medicine 02/16/22 Reilly Baker MD, PHD Surgeon Neurosurgery 01/20/22 Dafne Hilton MD [address] [place] [address] Specialist Cardiology 10/13/22 Desi Swenson NP [address] [place] [address] Cardiology 02/29/24 documented as of this encounter
--- OUTSIDE RECORDS SUMMARY | 2025-06-28 18:24 | XMS_ITS | Encounter Summary ---
Author Organization [facility] Prior to 05/12/2024 Address [address] [place] [address] Care Team Providers Care Box Feeder Name Role Phone Brett Velásquez MD Primary Care Provider Keisha Luna MD Primary Care Provider [phone] Brett Velásquez MD Primary Care Provider Reilly Stewart MD, PHD Unavailable Unava ilBrett Balion MD Primary Care Provider Wayne Dickson Primary Care Provider [phone] Dafne Hilton MD Unavailable [phone] Desi Swenson NP Unavailable [phone] Encounter Details Date Type Department Care Team Description 04/24/2015 Die Cutter Report Medical Records [address] [place] [address] Vitor Mclean MD [address] [place] [phone] Social History Tobacco Use Types Packs/Day Years [...] Type Specialty Care Team Description 04/29/2027 Die Cutter Report Abstract, Provider documented as of this encounter Visit Diagnoses Not on filedocumented in this encounter Care Teams Box Feeder Relationship Specialty Start Date End Date Brett Velásquez MD PCP - General Internal Medicine 10/29/11 06/19/15 Keisha Chavez MD [address] [place] [address] PCP - General Internal Medicine 06/20/15 04/20/16 Brett Velásquez MD PCP - General Internal Medicine 04/21/16 01/25/22 Brett Velásquez MD PCP - General Internal Medicine 01/26/22 02/15/22 Wayne Jaimes [address] [place] [address] PCP - General Internal Medicine 02/16/22 Reilly Baker MD, PHD [address] [place] [address] Surgeon Neurosurgery 01/20/22 Dafne Hilton MD [address] [place] [address] Specialist Cardiology 10/13/22 Desi Swenson NP [address] [place] [address] Cardiology 02/29/24 documented as of this encounter
--- OUTSIDE RECORDS SUMMARY | 2025-06-28 18:24 | XMS_ITS | Encounter Summary ---
Author Organization [facility] Prior to 05/12/2024 Address [address] [place] [address] Care Team Providers Care Registered Nurse Step Down Name Role Phone Brett Velásquez MD Primary Care Provider Keisha Luna MD Primary Care Provider [phone] Brett Velásquez MD Primary Care Provider Reilly Stewart MD, PHD Unavailable Unami ilBrett Bailon MD Primary Care Provider Wayne Dickson Primary Care Provider [phone] Dafne Hilton MD Unavailable [phone] Desi Swenson NP Unavailable [phone] Encounter Details Date Type Department Care Team Description 04/01/2015 Wood Gouger Report Medical Records [address] [place] [address] Olivia Harris MD [address] [place] [address] [address] [place] [address] Social History Tobacco Use Types Packs/Day Years [...] Type Specialty Care Team Description 04/29/2027 Wood Gouger Report Abstract, Provider documented as of this encounter Visit Diagnoses Not on filedocumented in this encounter Care Teams Registered Nurse Step Down Relationship Specialty Start Date End Date Brett Velásquez MD PCP - General Internal Medicine 10/29/11 06/19/15 Keisha Chavez MD [address] [place], [place] [address] PCP - General Internal Medicine 06/20/15 04/20/16 Brett Velásquez MD PCP - General Internal Medicine 04/21/16 01/25/22 Brett Velásquez MD PCP - General Internal Medicine 01/26/22 02/15/22 Wayne Jaimes [address] [place] [address] PCP - General Internal Medicine 02/16/22 Reilly Baker MD, PHD [address] [place] [address] Surgeon Neurosurgery 01/20/22 Dafne Hilton MD [address] [place] [address] Specialist Cardiology 10/13/22 Desi Swenson NP [address] [place] [address] Cardiology 02/29/24 documented as of this encounter
--- OUTSIDE RECORDS SUMMARY | 2025-06-28 18:24 | XMS_ITS | Encounter Summary ---
Author Organization [employer] [facility] Prior to 05/12/2024 Address [address] [place] [address] Care Team Providers Care Rolling Mill Operator Helper Name Role Phone Keisha Chavez MD Primary Care Provider [phone] Brett Velásquez MD Primary Care Provider Reilly Stewart MD, PHD Unavailable [facility]ailon MD Primary Care Provider Wayne Dickson Primary Care Provider [phone] Dafne Hilton MD Unavailable [phone] Desi Swenson NP Unavailable [phone] Encounter Details Date Type Department Care Team Description 09/18/2015 Business Doc Medical Records [address] [place] [address] Abstract, Provider Social History Tobacco Use Types [...] Date Type Specialty Care Team Description 04/29/2027 Aviation Safety Officer Report Abstract, Provider documented as of this encounter Visit Diagnoses Not on filedocumented in this encounter Care Teams Rolling Mill Operator Helper Relationship Specialty Start Date End Date Keisha Chavez MD [address] [place] [address] PCP - General Internal Medicine 06/20/15 04/20/16 Brett Velásquez MD [address] [place], [place] [address] PCP - General Internal Medicine 04/21/16 01/25/22 Brett Velásquez MD [address] [place] [address] PCP - General Internal Medicine 01/26/22 02/15/22 Wayne Jaimes [address] [place] [address] PCP - General Internal Medicine 02/16/22 Reilly Baker MD, PHD [address] [place] [address] Surgeon Neurosurgery 01/20/22 Dafne Hilton MD [address] [place] [address] Specialist Cardiology 10/13/22 Desi Swenson NP [address] [place] [address] Cardiology 02/29/24 documented as of this encounter
--- OUTSIDE RECORDS SUMMARY | 2025-06-28 18:24 | XMS_ITS | Encounter Summary ---
Author Organization [employer] [facility] Prior to 05/12/2024 Address [address] [place] [address] Care Team Providers Care Log Loader Helper Name Role Phone Brett Velásquez MD Primary Care Provider Keisha Luna MD Primary Care Provider [phone] Brett Velásquez MD Primary Care Provider Reilly Stewart MD, PHD Unavailable [facility] healthcareBrett Bailon MD Primary Care Provider Wayne Dickson Primary Care Provider [phone] Dafne Hilton MD Unavailable [phone] Desi Swenson NP Unavailable [phone] Encounter Details Date Type Department Care Team Description 03/31/2012 Pt. Non Urgent Medic al Question Adult Medicine [address] [address] Brett Velásquez MD Social History Tobacco Use [...] ADDIE LEWIS To: Brett Velásquez MD Sent: Susanna Mar 31, 2012 10:14 PM Subject: ask [...] Date Type Specialty Care Team Description 04/29/2027 Mechanic Chief Report Abstract, Provider documented as of this encounter Visit Diagnoses Not on filedocumented in this encounter Care Teams Log Loader Helper Relationship Specialty Start Date End Date Brett Velásquez MD PCP - General Internal Medicine 10/29/11 06/19/15 Keisha Chavez MD [address] [place] [address] PCP - General Internal Medicine 06/20/15 04/20/16 Brett Velásquez MD PCP - General Internal Medicine 04/21/16 01/25/22 Brett Velásquez MD PCP - General Internal Medicine 01/26/22 02/15/22 Wayne Jaimes [address] [place] [address] PCP - General Internal Medicine 02/16/22 Reilly Baker MD, PHD [address] [place] [address] Surgeon Neurosurgery 01/20/22 Dafne Hilton MD [address] [place] [address] Specialist Cardiology 10/13/22 Desi Swenson NP [address] [place] [address] Cardiology 02/29/24 documented as of this encounter
--- OUTSIDE RECORDS SUMMARY | 2025-06-28 18:24 | XMS_ITS | Encounter Summary ---
Author Organization [employer] [facility] Prior to 05/12/2024 Address [address] [place] [address] Care Team Providers Care Comp Field Case Manager Name Role Phone Brett Velásquez MD Primary Care Provider Reilly Stewart MD, PHD Unavailable Brett España MD Primary Care Provider Wayne Dickson Primary Care Provider [phone] Dafne Hilton MD Unavailable [phone] Desi Swenson NP Unavailable Encounter Details Date Type Department Care Team Description 01/23/2020 Orders Only Medical Records [address] [place] [address] Vladislav Antunez DO Social History Tobacco Use [...] Type Specialty Care Team Description 04/29/2027 Fire Code Inspector Report Abstract, Provider documented as of this encounter Procedures Procedure Name Priority Date/Time Associated Diagnosis Comments OUTSIDE LAB Routine 01/22/2020 documented in this encounter Results * OUTSIDE LAB (01/22/2020) Vladislav Antunez DO LAB documented in this encounter Visit Diagnoses Not on filedocumented in this encounter Care Teams Comp Field Case Manager Relationship Specialty Start Date End Date Brett Velásquez MD PCP - General Internal Medicine 04/21/16 01/25/22 Brett Velásquez MD PCP - General Internal Medicine 01/26/22 02/15/22 Wayne Jaimes [address] [place] [address] PCP - General Internal Medicine 02/16/22 Reilly Baker MD, PHD Surgeon Neurosurgery 01/20/22 Dafne Hilton MD [address] [place] [address] Specialist Cardiology 10/13/22 Desi Swenson NP [address] [place] [address] Cardiology 02/29/24 documented as of this encounter
--- OUTSIDE RECORDS SUMMARY | 2025-06-28 18:24 | XMS_ITS | Encounter Summary ---
Author Organization [facility] Prior to 05/12/2024 Address [address] [place] [address] Care Team Providers Care Rewinder Operator Helper Name Role Phone Reilly Baker MD, PHD Unavailable Unava Wayne Blackman Primary Care Provider [phone] Dafne Hilton MD Unavailable [phone] Desi Swenson NP Unavailable [phone] Encounter Details Date Type Department Care Team Description 04/27/2022 SCAN [facility] [address] [phone] Ena Whipple, PA-C [address] [address] Social History Tobacco Use Types Packs/Day Years [...] Date Type Specialty Care Team Description 04/29/2027 Art Museum Docent Report Abstract, Provider documented as of this encounter Visit Diagnoses Not on filedocumented in this encounter Care Teams Rewinder Operator Helper Relationship Specialty Start Date End Date Wayne Jaimes [address] [place] [address] PCP - General Internal Medicine 02/16/22 Reilly Baker MD, PHD Surgeon Neurosurgery 01/20/22 Dafne Hilton MD [address] [place] [address] Specialist Cardiology 10/13/22 Desi Swenson NP [address] [place], [place] [address] Cardiology 02/29/24 documented as of this encounter
--- OUTSIDE RECORDS SUMMARY | 2025-06-28 18:24 | XMS_ITS | Encounter Summary ---
Author Organization [employer] [facility] Prior to 05/12/2024 Address [address] [place] [address] Care Team Providers Care Aircraft Loadmaster Superintendent Name Role Phone Brett Velásquez MD Primary Care Provider Reilly Stewart MD, PHD Unavailable Brett España MD Primary Care Provider Wayne Dickson Primary Care Provider Dafne Hilton MD Unavailable [phone] Desi Swenson NP Unavailable [phone] Encounter Details Date Type Department Care Team Description 11/27/2019 Refill Nephrology [facility] [address] [place] [address] Eduard Mccormick MD [address] [place] [address] Social History Tobacco Use Types Packs/Day Years [...] Type Specialty Care Team Description 04/29/2027 Air Pollution Auditor Report Abstract, Provider documented as of this encounter Visit Diagnoses Not on filedocumented in this encounter Care Teams Aircraft Loadmaster Superintendent Relationship Specialty Start Date End Date Brett Velásquez MD PCP - General Internal Medicine 04/21/16 01/25/22 Brett Velásquez MD PCP - General Internal Medicine 01/26/22 02/15/22 Wayne Jaimes [address] [place] [address] PCP - General Internal Medicine 02/16/22 Reilly Baker MD, PHD Surgeon Neurosurgery 01/20/22 Dafne Hilton MD [address] [place] [address] Specialist Cardiology 10/13/22 Desi Swenson NP [address] [place] [address] Cardiology 02/29/24 documented as of this encounter
--- OUTSIDE RECORDS SUMMARY | 2025-06-28 18:24 | XMS_ITS | Encounter Summary ---
Author Organization [facility] Prior to 05/12/2024 Address [address] [place] [address] Care Team Providers Care Blow Moulding Machine Operator Name Role Phone Brett Velásquez MD Primary Care Provider Keisha Luna MD Primary Care Provider [phone] Brett Velásquez MD Primary Care Provider Reilly Stewart MD, PHD Unavailable Unava ilBrett Bailon MD Primary Care Provider Wayne Dickson Primary Care Provider [phone] Dafne Hilton MD Unavailable [phone] Desi Swenson NP Unavailable [phone] Encounter Details Date Type Department Care Team Description 03/27/2015 Oil Truck Driver Report Medical Records [address] [place] [address] Vitor Mclean MD [address] [place] [phone] Social History Tobacco Use Types Packs/Day Years [...] Date Type Specialty Care Team Description 04/29/2027 Oil Truck Driver Report Abstract, Provider documented as of this encounter Visit Diagnoses Not on filedocumented in this encounter Care Teams Blow Moulding Machine Operator Relationship Specialty Start Date End Date Brett Velásquez MD PCP - General Internal Medicine 10/29/11 06/19/15 Keisha Chavez MD [address] [place] [address] PCP - General Internal Medicine 06/20/15 04/20/16 Brett Velásquez MD PCP - General Internal Medicine 04/21/16 01/25/22 Brett Velásquez MD PCP - General Internal Medicine 01/26/22 02/15/22 Wayne Jaimes [address] [place] [address] PCP - General Internal Medicine 02/16/22 Reilly Baker MD, PHD [address] [place] [address] Surgeon Neurosurgery 01/20/22 Dafne Hilton MD [address] [place] [address] Specialist Cardiology 10/13/22 Desi Swenson NP [address] [place] [address] Cardiology 02/29/24 documented as of this encounter
--- OUTSIDE RECORDS SUMMARY | 2025-06-28 18:24 | XMS_ITS | Encounter Summary ---
Author Organization [employer] [facility] Prior to 05/12/2024 Address [address] [place] [address] Care Team Providers Care Counseling Center Manager Name Role Phone Reilly Baker MD, PHD Unavailable Unava ilable Wayne Jaimes Primary Care Provider Dafne Hilton MD Unavailable [phone] Desi Swenson NP Unavailable [phone] Encounter Details Date Type Department Care Team Description 04/29/2022 Technical Laboratory Asst Report Medical Records [address] [place] [address] Abstract, Provider Social History Tobacco Use Types [...] Date Type Specialty Care Team Description 04/29/2027 Technical Laboratory Asst Report Abstract, Provider documented as of this encounter Visit Diagnoses Not on filedocumented in this encounter Care Teams Counseling Center Manager Relationship Specialty Start Date End Date Wayne Jaimes [address] [place], [place] [address] PCP - General Internal Medicine 02/16/22 Reilly Baker MD, PHD Surgeon Neurosurgery 01/20/22 Dafne Hilton MD [address] [place] [address] Specialist Cardiology 10/13/22 Desi Swenson NP [address] [place] [address] Cardiology 02/29/24 documented as of this encounter
--- OUTSIDE RECORDS SUMMARY | 2025-06-28 18:24 | XMS_ITS | Encounter Summary ---
Author Organization [employer] [facility] Prior to 05/12/2024 Address [address] [place] [address] Care Team Providers Care Manager Paper Name Role Phone Reilly Baker MD, PHD Unavailable Unava ilWayne Osborne Primary Care Provider Dafne Hilton MD Unavailable [phone] Desi Swenson NP Unavailable [phone] Encounter Details Date Type Department Care Team Description 04/08/2022 Pt. Non Urgent Medical Question Adult Medicine [address] [address] Wayne Jaimes [address] [place] [address] Social History Tobacco Use Types Packs/Day Years [...] Date Type Specialty Care Team Description 04/29/2027 Civil Litigation Attorney Report Abstract, Provider documented as of this encounter Visit Diagnoses Not on filedocumented in this encounter Care Teams Manager Paper Relationship Specialty Start Date End Date Wayne Jaimes [address] [place] [address] PCP - General Internal Medicine 02/16/22 Reilly Baker MD, PHD Surgeon Neurosurgery 01/20/22 Dafne Hilton MD [address] [place] [address] Specialist Cardiology 10/13/22 Desi Swenson NP [address] [place] [address] Cardiology 02/29/24 documented as of this encounter
--- OUTSIDE RECORDS SUMMARY | 2025-06-28 18:24 | XMS_ITS | Encounter Summary ---
Author Organization [facility] Prior to 05/12/2024 Address [address] [place] [address] Care Team Providers Care Budget Assistant Name Role Phone Brett Velásquez MD Primary Care Provider Reilly Stewart MD, PHD Unavailable Brett España MD Primary Care Provider Wayne Dickson Primary Care Provider [phone] Dafne Hilton MD Unavailable [phone] Desi Swenson NP Unavailable [phone] Encounter Details Date Type Department Care Team Description 12/22/2019 Telephone Physiatry - [address] [address] Sonny Abrams PA-C Social History Tobacco Use [...] Date Type Specialty Care Team Description 04/29/2027 Paver Report Abstract, Provider documented as of this encounter Visit Diagnoses Not on filedocumented in this encounter Care Teams Budget Assistant Relationship Specialty Start Date End Date Brett Velásquez MD PCP - General Internal Medicine 04/21/16 01/25/22 Brett Velásquez MD PCP - General Internal Medicine 01/26/22 02/15/22 Wayne Jaimes [address] [place] [address] PCP - General Internal Medicine 02/16/22 Reilly Baker MD, PHD Surgeon Neurosurgery 01/20/22 Dafne Hilton MD [address] [place] [address] Specialist Cardiology 10/13/22 Desi Swenson NP [address] [place], [place] [phone] Cardiology 02/29/24 documented as of this encounter
--- OUTSIDE RECORDS SUMMARY | 2025-06-28 18:25 | XMS_ITS | Encounter Summary ---
Author Organization [facility]odie [facility] Prior to 05/12/2024 Address [address] [place] [address] Care Team Providers Care Senior Ios Developer Name Role Phone Brett Velásquez MD Primary Care Provider Reilly Stewart MD, PHD Unavailable Brett España MD Primary Care Provider Wayne Dickson Primary Care Provider [phone] Dafne Hilton MD Unavailable [phone] Desi Swenson NP Unavailable [phone] Encounter Details Date Type Department Care Team Description 08/15/2020 Principal Hardware Architect Report Medical Records [address] [place] [address] Desi Li DPM Social History Tobacco Use [...] Date Type Specialty Care Team Description 04/29/2027 Principal Hardware Architect Report Abstract, Provider documented as of this encounter Visit Diagnoses Not on filedocumented in this encounter Care Teams Senior Ios Developer Relationship Specialty Start Date End Date Brett Velásquez MD PCP - General Internal Medicine 04/21/16 01/25/22 Brett Velásquez MD PCP - General Internal Medicine 01/26/22 02/15/22 Wayne Jaimes [address] [place] [address] PCP - General Internal Medicine 02/16/22 Reilly Baker MD, PHD Surgeon Neurosurgery 01/20/22 Dafne Hilton MD [address] [place] [address] Specialist Cardiology 10/13/22 Desi Swenson NP [address] [place] [address] Cardiology 02/29/24 documented as of this encounter
--- OUTSIDE RECORDS SUMMARY | 2025-06-28 18:25 | XMS_ITS | Encounter Summary ---
Author Organization [facility] Prior to 05/12/2024 Address [address] [place] [address] Care Team Providers Care Buggy Operator Name Role Phone Brett Velásquez MD Primary Care Provider Reilly Stewart MD, PHD Unavailable Brett España MD Primary Care Provider Wayne Dickson Primary Care Provider [phone] Dafne Hilton MD Unavailable [phone] Desi Swenson NP Unavailable [phone] Encounter Details Date Type Department Care Team Description 05/29/2020 Resident Buyer Report Medical Records [address] [place] [address] Aleksandar Huggins MD Social History Tobacco Use [...] Date Type Specialty Care Team Description 04/29/2027 Resident Buyer Report Abstract, Provider documented as of this encounter Visit Diagnoses Not on filedocumented in this encounter Care Teams Buggy Operator Relationship Specialty Start Date End Date Brett Velásquez MD PCP - General Internal Medicine 04/21/16 01/25/22 Brett Velásquez MD PCP - General Internal Medicine 01/26/22 02/15/22 Wayne Jaimes [address] [place] [address] PCP - General Internal Medicine 02/16/22 Reilly Baker MD, PHD Surgeon Neurosurgery 01/20/22 Dafne Hilton MD [address] [place] [address] Specialist Cardiology 10/13/22 Desi Swenosn NP [address] [place] [address] Cardiology 02/29/24 documented as of this encounter
--- OUTSIDE RECORDS SUMMARY | 2025-06-28 18:25 | XMS_ITS | Encounter Summary ---
Author Organization Jodie [employer] [facility] Prior to 05/12/2024 Address [address] [place] [address] Care Team Providers Care Dynamite Packing Machine Feeder Name Role Phone Brett Velásquez MD Primary Care Provider Reilly Stewart MD, PHD Unavailable Brett España MD Primary Care Provider Wayne Dickson Primary Care Provider Dafne Hilton MD Unavailable [phone] Desi Swenson NP Unavailable [phone] Encounter Details Date Type Department Care Team Description 09/16/2020 Convertible Sofa Bedspring Tester Report Medical Records [address] [place] [address] Zuleika Baez PA-C Social History Tobacco Use [...] Date Type Specialty Care Team Description 04/29/2027 Convertible Sofa Bedspring Tester Report Abstract, Provider documented as of this encounter Visit Diagnoses Not on filedocumented in this encounter Care Teams Dynamite Packing Machine Feeder Relationship Specialty Start Date End Date Brett Velásquez MD PCP - General Internal Medicine 04/21/16 01/25/22 Brett Velásquez MD PCP - General Internal Medicine 01/26/22 02/15/22 Wayne Jaimes [address] [place] [address] PCP - General Internal Medicine 02/16/22 Reilly Baker MD, PHD Surgeon Neurosurgery 01/20/22 Dafne Hilton MD [address] [place] [address] Specialist Cardiology 10/13/22 Desi Swenson NP [address] [place] [address] Cardiology 02/29/24 documented as of this encounter
--- OUTSIDE RECORDS SUMMARY | 2025-06-28 18:25 | XMS_ITS | Encounter Summary ---
Author Organization [facility] Prior to 05/12/2024 Address [address] [place] [address] Care Team Providers Care Charge Entry Name Role Phone Brett Velásquez MD Primary Care Provider Reilly Stewart MD, PHD Unavailable Brett España MD Primary Care Provider Wayne Dickson Primary Care Provider [phone] Dafne Hilton MD Unavailable [phone] Desi Swenson NP Unavailable [phone] Reason for Visit * Reason Onset Date Comments Medication Injection, Joint 02/18/2021 SCHE DULE EUFLEXXA INJ. W/TRUCK GREASER, HAS PAID CLAIM ON FILE Encounter Details Date Type Department Care Team Description 02/18/[address] [facility] [address] [address] Hermes Ambrosio MD [address] [id number] Medication Injection, Joint (SCHEDULE EUFLEXXA INJ. W/TRUCK GREASER, HAS PAID CLAIM ON FILE) Social History [...] Date Type Specialty Care Team Description 04/29/2027 Tool Room Supervisor Report Abstract, Provider documented as of this encounter Visit Diagnoses Not on filedocumented in this encounter Care Teams Charge Entry Relationship Specialty Start Date End Date Brett Velásquez MD PCP - General Internal Medicine 04/21/16 01/25/22 Brett Velásquez MD PCP - General Internal Medicine 01/26/22 02/15/22 Wayne Jaimes [address] [place] [address] PCP - General Internal Medicine 02/16/22 Reilly Baker MD, PHD Surgeon Neurosurgery 01/20/22 Dafne Hilton MD [address] [place] [address] Specialist Cardiology 10/13/22 Desi Swenson NP [address] [place] [address] Cardiology 02/29/24 documented as of this encounter
--- OUTSIDE RECORDS SUMMARY | 2025-06-28 18:25 | XMS_ITS | Encounter Summary ---
Author Organization Jodie [facility] [employer] [facility] Prior to 05/12/2024 Address [address] [place] [address] Care Team Providers Care Brakes Inspector Name Role Phone Brett Velásquez MD Primary Care Provider Reilly Stewart MD, PHD Unavailable UnaBrett Davis MD Primary Care Provider Wayne Dickson Primary Care Provider [phone] Dafne Hilton MD Unavailable [phone] Desi Swenson NP Unavailable [phone] Reason for Visit * Reason Onset Date Comments TEST RESULTS 11/06/2020 Encounter Details Date Type Department Care Team Description 11/06/2020 Telephone Adult Medicine [address] [address] Divya Ro PA [address] [place] [id number] TEST RESULTS Social History Tobacco Use Types [...] to sending a message. Waiting on A1c. [employer] message has also been sent to patient. [...] Date Type Specialty Care Team Description 04/29/2027 Sporting Goods Sales Associate Report Abstract, Provider documented as of this encounter Visit Diagnoses Not on filedocumented in this encounter Care Teams Brakes Inspector Relationship Specialty Start Date End Date Brett Velásquez MD PCP - General Internal Medicine 04/21/16 01/25/22 Brett Velásquez MD PCP - General Internal Medicine 01/26/22 02/15/22 Wayne Jaimes [address] [place] [address] PCP - General Internal Medicine 02/16/22 Reilly Baker MD, PHD Surgeon Neurosurgery 01/20/22 Dafne Hilton MD [address] [place] [address] Specialist Cardiology 10/13/22 Desi Swenson NP [address] [place] [address] Cardiology 02/29/24 documented as of this encounter
--- OUTSIDE RECORDS SUMMARY | 2025-06-28 18:25 | XMS_ITS | Encounter Summary ---
Author Organization [employer] [facility] Prior to 05/12/2024 Address [address] [place] [address] Care Team Providers Care Steam Shovel Engineer Name Role Phone Reilly Baker MD, PHD Unavailable Unava ilable Wayne Jaimes Primary Care Provider [phone] Dafne Hilton MD Unavailable Desi Swenson NP Unavailable [phone] Encounter Details Date Type Department Care Team Description 01/04/2023 Hospital Medical Records [address] [place] [address] Vladislav Antunez DO Social History Tobacco Use [...] Type Specialty Care Team Description 04/29/2027 Rn Paralegal Report Abstract, Provider documented as of this encounter Visit Diagnoses Not on filedocumented in this encounter Care Teams Steam Shovel Engineer Relationship Specialty Start Date End Date Wayne Jaimes [address] [place], [place] [phone] PCP - General Internal Medicine 02/16/22 Reilly Baker MD, PHD Surgeon Neurosurgery 01/20/22 Dafne Hilton MD [address] [place], [place] [phone] Specialist Cardiology 10/13/22 Desi Swenson NP [address] [place] [address] Cardiology 02/29/24 documented as of this encounter
--- OUTSIDE RECORDS SUMMARY | 2025-06-28 18:25 | XMS_ITS | Encounter Summary ---
Author Organization [employer] [facility] Prior to 05/12/2024 Address [address] [place] [address] Care Team Providers Care Instructional Leader Name Role Phone Reilly Baker MD, PHD Unavailable Unava ilable Wayne Jaimes Primary Care Provider [phone] Dafne Hilton MD Unavailable [phone] Desi Swenson NP Unavailable [phone] Encounter Details Date Type Department Care Team Description 02/18/2022 Hospital Medical Records [address] [place] [address] Yuliana Auguste MD [address] [place] [address] Social History Tobacco Use Types Packs/Day Years [...] Date Type Specialty Care Team Description 04/29/2027 Poultry Feed Supervisor Report Abstract, Provider documented as of this encounter Visit Diagnoses Not on filedocumented in this encounter Care Teams Instructional Leader Relationship Specialty Start Date End Date Wayne JaimesUsama [address] [place] [address] PCP - General Internal Medicine 02/16/22 Reilly Baker MD, PHD Surgeon Neurosurgery 01/20/22 Dafne Hilton MD [address] [place] [address] Specialist Cardiology 10/13/22 Desi Swenson NP [address] [place] [address] Cardiology 02/29/24 documented as of this encounter
--- OUTSIDE RECORDS SUMMARY | 2025-06-28 18:25 | XMS_ITS | Encounter Summary ---
Author Organization [facility] Prior to 05/12/2024 Address [address] [place] [address] Care Team Providers Care Track Fitter Name Role Phone Brett Velásquez MD Primary Care Provider Reilly Stewart MD, PHD Unavailable UnaBrett Davis MD Primary Care Provider Wayne Dickson Primary Care Provider [phone] Dafen Hilton MD Unavailable [phone] Desi Swenson NP Unavailable [phone] Encounter Details Date Type Department Care Team Description 11/05/2020 [facility] Medical Records [address] [place] [address] Vladislav Antunez DO Social History Tobacco Use [...] Date Type Specialty Care Team Description 04/29/2027 Dumpcart Driver Report Abstract, Provider documented as of this encounter Visit Diagnoses Not on filedocumented in this encounter Care Teams Track Fitter Relationship Specialty Start Date End Date Brett Velásquez MD PCP - General Internal Medicine 04/21/16 01/25/22 Brett Velásquez MD PCP - General Internal Medicine 01/26/22 02/15/22 Wayne Jaimes [address] [place] [address] PCP - General Internal Medicine 02/16/22 Reilly Baker MD, PHD Surgeon Neurosurgery 01/20/22 Dafne Hilton MD [address] [place] [address] Specialist Cardiology 10/13/22 Desi Swenson NP [address] [place] [address] Cardiology 02/29/24 documented as of this encounter
--- OUTSIDE RECORDS SUMMARY | 2025-06-28 18:25 | XMS_ITS | Encounter Summary ---
Author Organization [employer] [facility] Prior to 05/12/2024 Address [address] [place] [address] Care Team Providers Care Frame Stripper And Crusher Name Role Phone Brett Velásquez MD Primary Care Provider Keisha Luna MD Primary Care Provider [phone] Brett Velásquez MD Primary Care Provider Reilly Stewart MD, PHD Unavailable Unawy ilable Brett Velásquez MD Primary Care Provider Wayne Dickson Primary Care Provider [phone] Dafne Hilton MD Unavailable [phone] Desi Swenson NP Unavailable [phone] Encounter Details Date Type Department Care Team Description 10/11/2012 Vp Home Health Report Medical Records [address] [place] [address] Kareem Grier PA-C Social History Tobacco Use [...] Type Specialty Care Team Description 04/29/2027 Vp Home Health Report Abstract, Provider documented as of this encounter Visit Diagnoses Not on filedocumented in this encounter Care Teams Frame Stripper And Crusher Relationship Specialty Start Date End Date Brett Velásquez MD PCP - General Internal Medicine 10/29/11 06/19/15 Keisha Chavez MD [address] [place] [address] PCP - General Internal Medicine 06/20/15 04/20/16 Brett Velásquez MD PCP - General Internal Medicine 04/21/16 01/25/22 Brett Velásquez MD PCP - General Internal Medicine 01/26/22 02/15/22 Wayne Jaimes [address] [place] [address] PCP - General Internal Medicine 02/16/22 Reilly Baker MD, PHD [address] [place] [address] Surgeon Neurosurgery 01/20/22 Dafne Hilton MD [address] [place] [address] Specialist Cardiology 10/13/22 Desi Swenson NP [address] [place] [address] Cardiology 02/29/24 documented as of this encounter
--- OUTSIDE RECORDS SUMMARY | 2025-06-28 18:25 | XMS_ITS | Encounter Summary ---
Author Organization [employer] [facility] Prior to 05/12/2024 Address [address] [place] [address] Care Team Providers Care Traffic Police Officer Name Role Phone Brett Velásquez MD Primary Care Provider Reilly Stewart MD, PHD Unavailable Unava ilBrett Bailon MD Primary Care Provider Wayne Dickson Primary Care Provider [phone] Dafne Hilton MD Unavailable [phone] Desi Swenson NP Unavailable [phone] Encounter Details Date Type Department Care Team Description 11/23/2016 Insurance Account Representative Report Medical Records [address] [place] [address] Aleksandar Huggins MD Social History Tobacco Use [...] Type Specialty Care Team Description 04/29/2027 Insurance Account Representative Report Abstract, Provider documented as of this encounter Visit Diagnoses Not on filedocumented in this encounter Care Teams Traffic Police Officer Relationship Specialty Start Date End Date Brett Velásquez MD PCP - General Internal Medicine 04/21/16 01/25/22 Brett Velásquez MD PCP - General Internal Medicine 01/26/22 02/15/22 Wayne Jaimes [address] [place] [address] PCP - General Internal Medicine 02/16/22 Reilly Baker MD, PHD Surgeon Neurosurgery 01/20/22 Dafne Hilton MD [address] [place] [address] Specialist Cardiology 10/13/22 Desi Swenson NP [address] [place] [address] Cardiology 02/29/24 documented as of this encounter
--- OUTSIDE RECORDS SUMMARY | 2025-06-28 18:25 | XMS_ITS | Encounter Summary ---
Author Organization [facility] [facility] Prior to 05/12/2024 Address [address] [place] [address] Care Team Providers Care Field Party Manager Name Role Phone Brett Velásquez MD Primary Care Provider Keisha Luna MD Primary Care Provider [phone] Brett Velásquez MD Primary Care Provider Reilly Stewart MD, PHD Unavailable Unava ilable Brett Velásquez MD Primary Care Provider Wayne Dickson Primary Care Provider [phone] Dafne Hilton MD Unavailable [phone] Desi Swenson NP Unavailable [phone] Encounter Details Date Type Department Care Team Description 05/25/2013 Rn Provider Relations Report Medical Records [address] [place] [address] Aleksandar Huggins MD Social History Tobacco Use [...] Type Specialty Care Team Description 04/29/2027 Rn Provider Relations Report Abstract, Provider documented as of this encounter Visit Diagnoses Not on filedocumented in this encounter Care Teams Field Party Manager Relationship Specialty Start Date End Date Brett Velásquez MD PCP - General Internal Medicine 10/29/11 06/19/15 Keisha Chavez MD [address] [place] [address] PCP - General Internal Medicine 06/20/15 04/20/16 Brett Velásquez MD PCP - General Internal Medicine 04/21/16 01/25/22 Brett Velásquez MD PCP - General Internal Medicine 01/26/22 02/15/22 Wayne Jaimes [address] [place] [address] PCP - General Internal Medicine 02/16/22 Reilly Baker MD, PHD 4 [place] [address] Surgeon Neurosurgery 01/20/22 Dafne Hilton MD [address] [place] [address] Specialist Cardiology 10/13/22 Desi Swenson NP [address] [place] [address] Cardiology 02/29/24 documented as of this encounter
--- OUTSIDE RECORDS SUMMARY | 2025-06-28 18:25 | XMS_ITS | Encounter Summary ---
Author Organization [facility]odie [facility] Prior to 05/12/2024 Address [address] [place] [address] Care Team Providers Care Tar Heater Operator Name Role Phone Brett Velásquez MD Primary Care Provider Reilly Stewart MD, PHD Unavailable Brett España MD Primary Care Provider Wayne Dickson Primary Care Provider [phone] Dafne Hilton MD Unavailable [phone] Desi Swenson NP Unavailable [phone] Encounter Details Date Type Department Care Team Description 09/18/2020 Scientific Recruiter Report Medical Records [address] [place] [address] Desi Li DPM Social History Tobacco Use [...] Date Type Specialty Care Team Description 04/29/2027 Scientific Recruiter Report Abstract, Provider documented as of this encounter Visit Diagnoses Not on filedocumented in this encounter Care Teams Tar Heater Operator Relationship Specialty Start Date End Date Brett Vleásquez MD PCP - General Internal Medicine 04/21/16 01/25/22 Brett Velásquez MD PCP - General Internal Medicine 01/26/22 02/15/22 Wayne Jaimes [address] [place] [address] PCP - General Internal Medicine 02/16/22 Reilly Baker MD, PHD Surgeon Neurosurgery 01/20/22 Dafne Hilton MD [address] [place] [address] Specialist Cardiology 10/13/22 Desi Swenson NP [address] [place] [address] Cardiology 02/29/24 documented as of this encounter
--- OUTSIDE RECORDS SUMMARY | 2025-06-28 18:25 | XMS_ITS | Encounter Summary ---
Author Organization [facility] [facility] Prior to 05/12/2024 Address [address] [place] [address] Care Team Providers Care Hog Raiser Name Role Phone Brett Velásquez MD Primary Care Provider Reilly Stewart MD, PHD Unavailable Unava ilBrett Bailon MD Primary Care Provider Wayne Dickson Primary Care Provider [phone] Dafne Hilton MD Unavailable [phone] Desi Swenson NP Unavailable [phone] Encounter Details Date Type Department Care Team Description 12/14/2017 Silk Printer Report Medical Records [address] [place] [address] Rehab., [place] Social History Tobacco Use Types Packs/Day Years [...] Date Type Specialty Care Team Description 04/29/2027 Silk Printer Report Abstract, Provider documented as of this encounter Visit Diagnoses Not on filedocumented in this encounter Care Teams Hog Raiser Relationship Specialty Start Date End Date Brett Velásquez MD PCP - General Internal Medicine 04/21/16 01/25/22 Brett Velásquez MD PCP - General Internal Medicine 01/26/22 02/15/22 Wayne Jaimes [address] [place] [address] PCP - General Internal Medicine 02/16/22 Reilly Baker MD, PHD Surgeon Neurosurgery 01/20/22 Dafne Hilton MD [address] [place] [address] Specialist Cardiology 10/13/22 Desi Swenson NP [address] [place] [address] Cardiology 02/29/24 documented as of this encounter
--- OUTSIDE RECORDS SUMMARY | 2025-06-28 18:25 | XMS_ITS | Encounter Summary ---
Author Organization [employer] [facility] Prior to 05/12/2024 Address [address] [place] [address] Care Team Providers Care Aircraft Maintenance Engineer Name Role Phone Brett Velásquez MD Primary Care Provider Keisha Luna MD Primary Care Provider [phone] Brett Velásquez MD Primary Care Provider Reilly Stewart MD, PHD [facility]available [facility] Brett Vel[facility] MD Primary Care Provider Wayne Dickson Primary Care Provider [phone] Dafne Hilton MD Unavailable [phone] Desi Swenson NP Unavailable [phone] Encounter Details Date Type Department Care Team Description 09/26/2012 Fuel Cell Technician Report Medical Records [address] [place] [address] Shaquille Chandra Social History Tobacco Use Types [...] Type Specialty Care Team Description 04/29/2027 Fuel Cell Technician Report Abstract, Provider documented as of this encounter Visit Diagnoses Not on filedocumented in this encounter Care Teams Aircraft Maintenance Engineer Relationship Specialty Start Date End Date Brett Velásquez MD PCP - General Internal Medicine 10/29/11 06/19/15 Keisha Chavez MD [address] [place] [address] PCP - General Internal Medicine 06/20/15 04/20/16 Brett Velásquez MD PCP - General Internal Medicine 04/21/16 01/25/22 Brett Velásquez MD PCP - General Internal Medicine 01/26/22 02/15/22 Wayne Jaimes [address] [place] [address] PCP - General Internal Medicine 02/16/22 Reilly Baker MD, PHD [address] [place] [address] Surgeon Neurosurgery 01/20/22 Dafne Hilton MD [address] [place] [address] Specialist Cardiology 10/13/22 Desi Swenson NP [address] [place] [address] Cardiology 02/29/24 documented as of this encounter
--- OUTSIDE RECORDS SUMMARY | 2025-06-28 18:25 | XMS_ITS | Encounter Summary ---
Author Organization [facility] Prior to 05/12/2024 Address [address] [place] [address] Care Team Providers Care Minister Of Religion Name Role Phone Reilly Baker MD, PHD Unavailable Unava Wayne Blackman Primary Care Provider [phone] Dafne Hilton MD Unavailable [phone] Desi Swenson NP Unavailable [phone] Encounter Details Date Type Department Care Team Description 04/01/2022 SCAN [facility] [address] [address] Ena Whipple, PA-C [address] [phone] Social History Tobacco Use Types Packs/Day Years [...] Date Type Specialty Care Team Description 04/29/2027 Ceramic Restorer Report Abstract, Provider documented as of this encounter Visit Diagnoses Not on filedocumented in this encounter Care Teams Minister Of Religion Relationship Specialty Start Date End Date Wayne Jaimes [address] [place] [address] PCP - General Internal Medicine 02/16/22 Reilly Baker MD, PHD Surgeon Neurosurgery 01/20/22 Dafne Hilton MD [address] [place] [address] Specialist Cardiology 10/13/22 Desi Swenson NP [address] [place], [place] [address] Cardiology 02/29/24 documented as of this encounter
--- OUTSIDE RECORDS SUMMARY | 2025-06-28 18:25 | XMS_ITS | Encounter Summary ---
Author Organization [employer] [facility] Prior to 05/12/2024 Address [address] [place] [address] Care Team Providers Care Home Companion Name Role Phone Brett Velásquez MD Primary Care Provider Reilly Stewart MD, PHD Unavailable Unava ilBrett Bailon MD Primary Care Provider Wayne Dickson Primary Care Provider [phone] Dafne Hilton MD Unavailable [phone] Desi Swenson NP Unavailable [phone] Encounter Details Date Type Department Care Team Description 02/20/2020 [facility] Medical Records [address] [place] [address] Aleksandar Huggins MD Social History Tobacco Use [...] Specialty Care Team Description 04/29/2027 Director Of Strategic Partnerships Report Abstract, Provider documented as of this encounter Visit Diagnoses Not on filedocumented in this encounter Care Teams Home Companion Relationship Specialty Start Date End Date Brett Velásquez MD PCP - General Internal Medicine 04/21/16 01/25/22 Brett Velásquez MD PCP - General Internal Medicine 01/26/22 02/15/22 Wayne Jaimes [address] [place] [address] PCP - General Internal Medicine 02/16/22 Reilly Baker MD, PHD Surgeon Neurosurgery 01/20/22 Dafne Hilton MD [address] [place] [address] Specialist Cardiology 10/13/22 Desi Swenson NP [address] [place] [address] Cardiology 02/29/24 documented as of this encounter
--- OUTSIDE RECORDS SUMMARY | 2025-06-28 18:25 | XMS_ITS | Encounter Summary ---
Author Organization [facility] Prior to 05/12/2024 Address [address] [place] [address] Care Team Providers Care Pin Drafting Machine Operator Name Role Phone Brett Velásquez MD Primary Care Provider Keisha Luna MD Primary Care Provider [phone] Brett Velásquez MD Primary Care Provider Reilly Stewart MD, PHD Unavailable Unava ilable Brett Velásquez MD Primary Care Provider Wayne Dickson Primary Care Provider [phone] Dafne Hilton MD Unavailable [phone] Desi Swenson NP Unavailable [phone] Encounter Details Date Type Department Care Team Description 05/30/2013 Release of Information Medical Records [address] [place] [address] Abstract, Provider Social History Tobacco Use Types [...] Type Specialty Care Team Description 04/29/2027 Advertising Sales Representative Report Abstract, Provider documented as of this encounter Visit Diagnoses Not on filedocumented in this encounter Care Teams Pin Drafting Machine Operator Relationship Specialty Start Date End Date Brett Velásquez MD PCP - General Internal Medicine 10/29/11 06/19/15 Keisha Chavez MD [address] [place] [address] PCP - General Internal Medicine 06/20/15 04/20/16 Brett Velásquez MD PCP - General Internal Medicine 04/21/16 01/25/22 Brett Velásquez MD PCP - General Internal Medicine 01/26/22 02/15/22 Wayne Jaimes [address] [place] [address] PCP - General Internal Medicine 02/16/22 Relily Baker MD, PHD [address] [place] [address] Surgeon Neurosurgery 01/20/22 Dafne Hilton MD [address] [place] [address] Specialist Cardiology 10/13/22 Desi Swenson NP [address] [place] [address] Cardiology 02/29/24 documented as of this encounter
--- OUTSIDE RECORDS SUMMARY | 2025-06-28 18:25 | XMS_ITS | Encounter Summary ---
Author Organization [employer] [facility] Prior to 05/12/2024 Address [address] [place] [address] Care Team Providers Care Slip Operator Name Role Phone Reilly Baker MD, PHD Unavailable Unava Wayne Blackman Primary Care Provider [phone] Dafne Hilton MD Unavailable [phone] Desi Swenson NP Unavailable [phone] Reason for Visit * Reason Onset Date Comments Provider Call Back 02/11/2023 Encounter Details Date Type Department Care Team Description 02/11/2023 Telephone Gastroenterology - [address] [place] [address] Kevin Oliva PA-C Provider Call [...] Type Specialty Care Team Description 04/29/2027 Poultry Processor Report Abstract, Provider documented as of this encounter Visit Diagnoses Not on filedocumented in this encounter Care Teams Slip Operator Relationship Specialty Start Date End Date Wayne Jaimes [address] [place] [address] PCP - General Internal Medicine 02/16/22 Reilly Baker MD, PHD Surgeon Neurosurgery 01/20/22 Dafne Hilton MD [address] [place] [address] Specialist Cardiology 10/13/22 Desi Swenson NP [address] [place] [address] Cardiology 02/29/24 documented as of this encounter
--- OUTSIDE RECORDS SUMMARY | 2025-06-28 18:25 | XMS_ITS | Encounter Summary ---
Author Organization [employer] [facility] Prior to 05/12/2024 Address [address] [place] [address] Care Team Providers Care Shop Blacksmith Name Role Phone Brett Velásquez MD Primary Care Provider Keisha Luna MD Primary Care Provider [phone] Brett Velásquez MD Primary Care Provider Reilly Stewart MD, PHD Unavailable Unava ilable Brett Velásquez MD Primary Care Provider Wayne Dickson Primary Care Provider [phone] Dafne Hilton MD Unavailable [phone] Desi Swenson NP Unavailable [phone] Encounter Details Date Type Department Care Team Description 11/20/2013 Release of Information Medical Records [address] [place] [address] Abstract, Provider Social History Tobacco Use Types [...] Date Type Specialty Care Team Description 04/29/2027 Classroom Aide Report Abstract, Provider documented as of this encounter Visit Diagnoses Not on filedocumented in this encounter Care Teams Shop Blacksmith Relationship Specialty Start Date End Date Brett Velásquez MD PCP - General Internal Medicine 10/29/11 06/19/15 Keisha Chavez MD [address] [place] [address] PCP - General Internal Medicine 06/20/15 04/20/16 Brett Velásquez MD PCP - General Internal Medicine 04/21/16 01/25/22 Brett Velásquez MD PCP - General Internal Medicine 01/26/22 02/15/22 Wayne Jaimes [address] [place] [address] PCP - General Internal Medicine 02/16/22 Reilly Baker MD, PHD [address] [place] [address] Surgeon Neurosurgery 01/20/22 Dafne Hilton MD [address] [place] [address] Specialist Cardiology 10/13/22 Desi Swenson NP [address] [place] [address] Cardiology 02/29/24 documented as of this encounter
--- OUTSIDE RECORDS SUMMARY | 2025-06-28 18:25 | XMS_ITS | Encounter Summary ---
Author Organization [employer] [facility] Prior to 05/12/2024 Address [address] [place] [address] Care Team Providers Care Academic Affairs Assistant Name Role Phone Brett Velásquez MD Primary Care Provider Reilly Stewart MD, PHD Unavailable Unava ilBrett Bailon MD Primary Care Provider Wayne Dickson Primary Care Provider [phone] Dafne Hilton MD Unavailable [phone] Desi Swenson NP Unavailable [phone] Encounter Details Date Type Department Care Team Description 02/01/2018 Vehicle Calibration Engineer Report Medical Records [address] [place] [address] Rehab., [place] Social History Tobacco Use Types Packs/Day Years [...] Date Type Specialty Care Team Description 04/29/2027 Vehicle Calibration Engineer Report Abstract, Provider documented as of this encounter Visit Diagnoses Not on filedocumented in this encounter Care Teams Academic Affairs Assistant Relationship Specialty Start Date End Date Brett Velásquez MD PCP - General Internal Medicine 04/21/16 01/25/22 Brett Velásquez MD PCP - General Internal Medicine 01/26/22 02/15/22 Wayne Jaimes [address] [place] [address] PCP - General Internal Medicine 02/16/22 Reilly Baker MD, PHD Surgeon Neurosurgery 01/20/22 Dafne Hilton MD [address] [place] [address] Specialist Cardiology 10/13/22 Desi Swenson NP [address] [place] [address] Cardiology 02/29/24 documented as of this encounter
--- OUTSIDE RECORDS SUMMARY | 2025-06-28 18:25 | XMS_ITS | Encounter Summary ---
Author Organization [employer] [facility] Prior to 05/12/2024 Address [address] [place] [address] Care Team Providers Care Supervisor Aircraft Maintenance Name Role Phone Reilly Baker MD, PHD Unavailable Unava ilable Wayne Jaimes Primary Care Provider [phone] Dafne Hilton MD Unavailable [phone] Desi Swenson NP Unavailable [phone] Encounter Details Date Type Department Care Team Description 10/08/2022 Spanner Operator Report Medical Records [address] [place] [address] Vladislav Antunez DO Social History Tobacco Use [...] Date Type Specialty Care Team Description 04/29/2027 Spanner Operator Report Abstract, Provider documented as of this encounter Visit Diagnoses Not on filedocumented in this encounter Care Teams Supervisor Aircraft Maintenance Relationship Specialty Start Date End Date Wayne Jaimes [address] [place], [place] [id number] PCP - General Internal Medicine 02/16/22 Reilly Baker MD, PHD Surgeon Neurosurgery 01/20/22 Dafne Hilton MD [address] [place] [address] Specialist Cardiology 10/13/22 Desi Swenson NP [address] [place] [address] Cardiology 02/29/24 documented as of this encounter
--- OUTSIDE RECORDS SUMMARY | 2025-06-28 18:25 | XMS_ITS | Encounter Summary ---
Author Organization [employer] [facility] Prior to 05/12/2024 Address [address] [place] [address] Care Team Providers Care Overcoiler Name Role Phone Brett Velásquez MD Primary Care Provider Reilly Stewart MD, PHD Unavailable Brett España MD Primary Care Provider Wayne Dickson Primary Care Provider [phone] Dafne Hilton MD Unavailable [phone] Desi Swenson NP Unavailable [phone] Reason for Visit * Reason Onset Date Comments er follow up 08/01/2018 Encounter Details Date Type Department Care Team Description 08/01/2018 Telephone Adult [address] [address] Brett Velásquez MD er follow up Social [...] PA-C Hospital/ center patient was treated at: [facility] Date of visit: 07/30/18 Was this [...] Date Type Specialty Care Team Description 04/29/2027 Water Operator Report Abstract, Provider documented as of this encounter Visit Diagnoses Not on filedocumented in this encounter Care Teams Overcoiler Relationship Specialty Start Date End Date Brett Velásquez MD PCP - General Internal Medicine 04/21/16 01/25/22 Brett Velásquez MD PCP - General Internal Medicine 01/26/22 02/15/22 Wayne Jaimes [address] [place] [address] PCP - General Internal Medicine 02/16/22 Reilly Baker MD, PHD Surgeon Neurosurgery 01/20/22 Dafne Hilton MD [address] [place] [address] Specialist Cardiology 10/13/22 Desi Swenson, ILDA [address] [place] [address] Cardiology 02/29/24 documented as of this encounter
--- OUTSIDE RECORDS SUMMARY | 2025-06-28 18:25 | XMS_ITS | Encounter Summary ---
Author Organization [facility] [facility] Prior to 05/12/2024 Address [address] [place] [address] Care Team Providers Care Tooth Cutter Clutch Name Role Phone Brett Velásquez MD Primary Care Provider Keisha Luna MD Primary Care Provider [phone] Brett Velásquez MD Primary Care Provider Reilly Stewart MD, PHD Unavailable Unava [facility] Brett Velásquez MD Primary Care Provider Wayne Dickson Primary Care Provider [phone] Dafne Hilton MD Unavailable [phone] Desi Swenson NP Unavailable [phone] Encounter Details Date Type Department Care Team Description 01/04/2013 Civil Draftsman Report Medical Records [address] [place] [address] Iron Barnett Social History Tobacco Use Types [...] Type Specialty Care Team Description 04/29/2027 Civil Draftsman Report Abstract, Provider documented as of this encounter Visit Diagnoses Not on filedocumented in this encounter Care Teams Tooth Cutter Clutch Relationship Specialty Start Date End Date Brett Velásquez MD PCP - General Internal Medicine 10/29/11 06/19/15 Keisha Chavez MD [address] [place] [address] PCP - General Internal Medicine 06/20/15 04/20/16 Brett Velásquez MD PCP - General Internal Medicine 04/21/16 01/25/22 Brett Velásquez MD PCP - General Internal Medicine 01/26/22 02/15/22 Wayne Jaimes [address] [place] [address] PCP - General Internal Medicine 02/16/22 Reilly Baker MD, PHD [address] [place] [address] Surgeon Neurosurgery 01/20/22 Dafne Hilton MD [address] [place] [address] Specialist Cardiology 10/13/22 Desi Swenson NP [address] [place] [address] Cardiology 02/29/24 documented as of this encounter
--- OUTSIDE RECORDS SUMMARY | 2025-06-28 18:25 | XMS_ITS | Encounter Summary ---
Author Organization [employer] [facility] Prior to 05/12/2024 Address [address] [place] [address] Care Team Providers Care Integrated Specialist Name Role Phone Brett Velásquez MD Primary Care Provider Reilly Stewart MD, PHD Unavailable Unava ilBrett Bailon MD Primary Care Provider Wayne Dickson Primary Care Provider [phone] Dafne Hilton MD Unavailable [phone] Desi Swenson NP Unavailable [phone] Encounter Details Date Type Department Care Team Description 03/11/2018 Release of Information Medical Records [address] [place] [address] Abstract, Provider Social History Tobacco Use Types [...] Date Type Specialty Care Team Description 04/29/2027 World Renowned Chef And Restaurant Owner Report Abstract, Provider documented as of this encounter Visit Diagnoses Not on filedocumented in this encounter Care Teams Integrated Specialist Relationship Specialty Start Date End Date Brett Velásquez MD PCP - General Internal Medicine 04/21/16 01/25/22 Brett Velásquez MD PCP - General Internal Medicine 01/26/22 02/15/22 Wayne Jaimes [address] [place] [address] PCP - General Internal Medicine 02/16/22 Reilly Baker MD, PHD Surgeon Neurosurgery 01/20/22 Dafne Hilton MD [address] [place] [address] Specialist Cardiology 10/13/22 Desi Swenson NP [address] [place] [address] Cardiology 02/29/24 documented as of this encounter
--- OUTSIDE RECORDS SUMMARY | 2025-06-28 18:25 | XMS_ITS | Encounter Summary ---
Author Organization [employer] [facility] Prior to 05/12/2024 Address [address] [place] [address] Care Team Providers Care Workforce Investment Act Career Manager Name Role Phone Reilly Baker MD, PHD Unavailable Unava Wayne Blackman Primary Care Provider [phone] Dafne Hilton MD Unavailable [phone] Desi Swenson NP Unavailable [phone] Encounter Details Date Type Department Care Team Description 10/23/2022 SCAN Medical Records [address] [place] [address] Abstract, Provider Social History Tobacco Use Types [...] Date Type Specialty Care Team Description 04/29/2027 Biometrics Consultant Report Abstract, Provider documented as of this encounter Procedures Procedure Name Priority Date/Time Associated Diagnosis Comments OUTSIDE BARIUM SWALLOW Routine 10/23/2022 documented in this encounter Results * OUTSIDE BARIUM SWALLOW (10/23/2022) Provider Default RADIOLOGY documented in this encounter Visit Diagnoses Not on filedocumented in this encounter Care Teams Workforce Investment Act Career Manager Relationship Specialty Start Date End Date Wayne Jaimes [address] [place] [address] PCP - General Internal Medicine 02/16/22 Reilly Baker MD, PHD Surgeon Neurosurgery 01/20/22 Dafne Hilton MD [address] [place] [address] Specialist Cardiology 10/13/22 Desi Swenson NP [address] [place], [place] [address] Cardiology 02/29/24 documented as of this encounter
--- OUTSIDE RECORDS SUMMARY | 2025-06-28 18:25 | XMS_ITS | Encounter Summary ---
Author Organization [employer] [facility] Prior to 05/12/2024 Address [address] [place] [address] Care Team Providers Care Assistant Professor Of Biology Name Role Phone Brett Velásquez MD Primary Care Provider Reilly Stewart MD, PHD Unavailable Brett España MD Primary Care Provider Wayne Dickson Primary Care Provider [phone] Dafne Hilton MD Unavailable [phone] Desi Swenson NP Unavailable [phone] Encounter Details Date Type Department Care Team Description 06/25/2020 Orders Only Physiatry - [address] [address] Sonny Abrams PA-C Lumbar radiculitis (Primary Dx) [...] Date Type Specialty Care Team Description 04/29/2027 Speed Runner Report Abstract, Provider documented as of this encounter Visit Diagnoses Diagnosis Lumbar radiculitis- Primary Thoracic or lumbosacral neuritis or radiculitis, unspecified documented in this encounter Care Teams Assistant Professor Of Biology Relationship Specialty Start Date End Date Brett Velásquez MD PCP - General Internal Medicine 04/21/16 01/25/22 Brett Velásquez MD PCP - General Internal Medicine 01/26/22 02/15/22 Wayne Jaimes [address] [place] [address] PCP - General Internal Medicine 02/16/22 Reilly Baker MD, PHD Surgeon Neurosurgery 01/20/22 Dafne Hilton MD [address] [place] [address] Specialist Cardiology 10/13/22 Desi Swenson NP [address] [place] [address] Cardiology 02/29/24 documented as of this encounter
--- OUTSIDE RECORDS SUMMARY | 2025-06-28 18:25 | XMS_ITS | Encounter Summary ---
Author Organization [employer] [facility] Prior to 05/12/2024 Address [address] [place] [address] Care Team Providers Care Ballistics Laboratory Gunsmith Name Role Phone Brett Velásquez MD Primary Care Provider Reilly Stewart MD, PHD Unavailable Unava ilBrett Bailon MD Primary Care Provider Wayne Dickson Primary Care Provider [phone] Dafne Hilton MD Unavailable [phone] Desi Swenson NP Unavailable [phone] Encounter Details Date Type Department Care Team Description 03/08/2018 Retail Wireless Sales Consultant Report Medical Records [address] [place] [address] Rehab., [place] Social History Tobacco Use Types Packs/Day Years [...] Type Specialty Care Team Description 04/29/2027 Retail Wireless Sales Consultant Report Abstract, Provider documented as of this encounter Visit Diagnoses Not on filedocumented in this encounter Care Teams Ballistics Laboratory Gunsmith Relationship Specialty Start Date End Date Brett Velásquez MD PCP - General Internal Medicine 04/21/16 01/25/22 Brett Velásquez MD PCP - General Internal Medicine 01/26/22 02/15/22 Wayne Jaimes [address] [place] [address] PCP - General Internal Medicine 02/16/22 Reilly Baker MD, PHD Surgeon Neurosurgery 01/20/22 Dafne Hilton MD [address] [place] [address] Specialist Cardiology 10/13/22 Desi Swenson NP [address] [place] [address] Cardiology 02/29/24 documented as of this encounter
--- OUTSIDE RECORDS SUMMARY | 2025-06-28 18:25 | XMS_ITS | Encounter Summary ---
Author Organization [employer] [facility] Prior to 05/12/2024 Address [address] [place] [address] Care Team Providers Care Core Microarchitect Name Role Phone Reilly Baker MD, PHD Unavailable Unava Wayne Blackman Primary Care Provider [phone] Dafne Hilton MD Unavailable [phone] Desi Swenson NP Unavailable [phone] Encounter Details Date Type Department Care Team Description 09/08/2022 Hospital Medical Records [address] [place] [address] Social History Tobacco Use Types Packs/Day Years [...] Date Type Specialty Care Team Description 04/29/2027 Auto Carrier Driver Report Abstract, Provider documented as of [...] on filedocumented in this encounter Care Teams Core Microarchitect Relationship Specialty Start Date End Date Wayne Jaimes [address] [place] [address] PCP - General Internal Medicine 02/16/22 Reilly Baker MD, PHD Surgeon Neurosurgery 01/20/22 Dafne Hilton MD [address] [place] [address] Specialist Cardiology 10/13/22 Desi Swenson NP [address] [place] [address] Cardiology 02/29/24 documented as of this encounter
--- OUTSIDE RECORDS SUMMARY | 2025-06-28 18:25 | XMS_ITS | Encounter Summary ---
Author Organization [facility] Prior to 05/12/2024 Address [address] [place] [address] Care Team Providers Care Digital Forensics Investigator Name Role Phone Brett Velásquez MD Primary Care Provider Keisha Luna MD Primary Care Provider [phone] Brett Velásquez MD Primary Care Provider Reilly Stewart MD, PHD Unavailable [facility] institute[facility] Bailon MD Primary Care Provider Wayne Dickson Primary Care Provider [phone] Dafne Hilton MD Unavailable [phone] Desi Swenson NP Unavailable [phone] Reason for Visit * Reason Comments Encounter Details Date Type Department Care Team Description 11/27/2013 Telephone Physiatry - [address] [address] Angela Montalvo MD [address] [place] [address] [place] [id number] Social History Tobacco Use Types Packs/Day Years [...] Please triage * Telephone Encounter - Zoraida PhillipsSUsamaN - 11/27/2013 8:14 AM EDT Left a telephone message for the patient that Dr. Hogan is out sick today. Message left for the patient to call back to reschedule appointment. documented in this encounter Plan of Treatment Upcoming Encounters Date Type Specialty Care Team Description 04/29/2027 Airplane Pilot Commercial Report Abstract, Provider documented as of this encounter Visit Diagnoses Not on filedocumented in this encounter Care Teams Digital Forensics Investigator Relationship Specialty Start Date End Date Brett Velásquez MD PCP - General Internal Medicine 10/29/11 06/19/15 Keisha Chavez MD [address] [place] [address] PCP - General Internal Medicine 06/20/15 04/20/16 Brett Velásquez MD PCP - General Internal Medicine 04/21/16 01/25/22 Brett Velásquez MD PCP - General Internal Medicine 01/26/22 02/15/22 Wayne Jaimes [address] [place] [address] PCP - General Internal Medicine 02/16/22 Reilly Baker MD, PHD [address] [place] [address] Surgeon Neurosurgery 01/20/22 Dafne Hilton MD [address] [place] [address] Specialist Cardiology 10/13/22 Desi Swenson NP [address] [place] [address] Cardiology 02/29/24 documented as of this encounter
--- OUTSIDE RECORDS SUMMARY | 2025-06-28 18:25 | XMS_ITS | Encounter Summary ---
Author Organization [employer] [facility] Prior to 05/12/2024 Address [address] [place] [address] Care Team Providers Care Food Preparation Kitchen Aide Name Role Phone Brett Velásquez MD Primary Care Provider Reilly Stewart MD, PHD Unavailable Unava ilBrett Bailon MD Primary Care Provider Wayne Dickson Primary Care Provider [phone] Dafne Hilton MD Unavailable [phone] Desi Swenson NP Unavailable [phone] Encounter Details Date Type Department Care Team Description 04/29/2017 Wellness Instructor Report Medical Records [address] [place] [address] Abstract, Provider Social History Tobacco Use Types [...] Date Type Specialty Care Team Description 04/29/2027 Wellness Instructor Report Abstract, Provider documented as of this encounter Visit Diagnoses Not on filedocumented in this encounter Care Teams Food Preparation Kitchen Aide Relationship Specialty Start Date End Date Brett Velásquez MD PCP - General Internal Medicine 04/21/16 01/25/22 Brett Velásquez MD PCP - General Internal Medicine 01/26/22 02/15/22 Wayne Jaimes [address] [place] [address] PCP - General Internal Medicine 02/16/22 Reilly Baker MD, PHD Surgeon Neurosurgery 01/20/22 Dafne Hilton MD [address] [place] [address] Specialist Cardiology 10/13/22 Desi Swenson NP [address] [place] [address] Cardiology 02/29/24 documented as of this encounter
--- OUTSIDE RECORDS SUMMARY | 2025-06-28 18:25 | XMS_ITS | Encounter Summary ---
Author Organization [employer] [facility] Prior to 05/12/2024 Address [address] [place] [address] Care Team Providers Care Utility Pipe Layer Name Role Phone Brett Velásquez MD Primary Care Provider Reilly Stewart MD, PHD Unavailable UnaBrett Davis MD Primary Care Provider Wayne Dickson Primary Care Provider [phone] Dafne Hilton MD Unavailable [phone] Desi Swenson NP Unavailable Encounter Details Date Type Department Care Team Description 04/12/2020 Screen Printing Machine Loader Unloader Report Medical Records [address] [place] [address] Ankita Mckeon NP Social History Tobacco Use [...] Date Type Specialty Care Team Description 04/29/2027 Screen Printing Machine Loader Unloader Report Abstract, Provider documented as of this encounter Visit Diagnoses Not on filedocumented in this encounter Care Teams Utility Pipe Layer Relationship Specialty Start Date End Date Brett Velásquez MD PCP - General Internal Medicine 04/21/16 01/25/22 Brett Velásquez MD PCP - General Internal Medicine 01/26/22 02/15/22 Wayne Jaimes [address] [place] [address] PCP - General Internal Medicine 02/16/22 Reilly Baker MD, PHD Surgeon Neurosurgery 01/20/22 Dafne Hilton MD [address] [place] [address] Specialist Cardiology 10/13/22 Desi Swenson NP [address] [place] [address] Cardiology 02/29/24 documented as of this encounter
--- OUTSIDE RECORDS SUMMARY | 2025-06-28 18:25 | XMS_ITS | Encounter Summary ---
Author Organization [employer] [facility] Prior to 05/12/2024 Address [address] [place] [address] Care Team Providers Care Injection Press Operator Name Role Phone Reilly Baker MD, PHD Unavailable Unava ilable Wayne Jaimes Primary Care Provider [phone] Dafne Hilton MD Unavailable [phone] Desi Swenson NP Unavailable [phone] Encounter Details Date Type Department Care Team Description 12/17/2022 SCAN Medical Records [address] [place] [address] [facility] Social History Tobacco Use Types Packs/Day [...] Type Specialty Care Team Description 04/29/2027 Senior Advisory Report Abstract, Provider documented as of this encounter Visit Diagnoses Not on filedocumented in this encounter Care Teams Injection Press Operator Relationship Specialty Start Date End Date Wayne Jaimes [address] [place], [place] [id number] PCP - General Internal Medicine 02/16/22 Reilly Baker MD, PHD Surgeon Neurosurgery 01/20/22 Dafne Hilton MD [address] [place] [address] Specialist Cardiology 10/13/22 Desi Swenson NP [address] [place] [address] Cardiology 02/29/24 documented as of this encounter
--- OUTSIDE RECORDS SUMMARY | 2025-06-28 18:25 | XMS_ITS | Encounter Summary ---
Author Organization [employer] [facility] Prior to 05/12/2024 Address [address] [place] [address] Care Team Providers Care Prime Broker Name Role Phone Brett Velásquez MD Primary Care Provider Reilly Stewart MD, PHD Unavailable Unava ilBrett Bailon MD Primary Care Provider Wayne Dickson Primary Care Provider [phone] Dafne Hilton MD Unavailable [phone] Desi Swenson NP Unavailable [phone] Encounter Details Date Type Department Care Team Description 03/31/2017 Agricultural Engineering Technologist Report Medical Records [address] [place] [address] Vipin Rhoades Social History Tobacco Use Types [...] Date Type Specialty Care Team Description 04/29/2027 Agricultural Engineering Technologist Report Abstract, Provider documented as of this encounter Visit Diagnoses Not on filedocumented in this encounter Care Teams Prime Broker Relationship Specialty Start Date End Date Brett Velásquez MD PCP - General Internal Medicine 04/21/16 01/25/22 Brett Velásquez MD PCP - General Internal Medicine 01/26/22 02/15/22 Wayne Jaimes [address] [place] [address] PCP - General Internal Medicine 02/16/22 Reilly Baker MD, PHD Surgeon Neurosurgery 01/20/22 Dafne Hilton MD [address] [place] [address] Specialist Cardiology 10/13/22 Desi Swenson NP [address] [place] [address] Cardiology 02/29/24 documented as of this encounter
--- OUTSIDE RECORDS SUMMARY | 2025-06-28 18:25 | XMS_ITS | Encounter Summary ---
Author Organization [employer] [facility] Prior to 05/12/2024 Address [address] [place] [address] Care Team Providers Care Gate Keeper Name Role Phone Reilly Baker MD, PHD Unavailable Unava ilable Wayne Jaimes Primary Care Provider [phone] Dafne Hilton MD Unavailable [phone] Desi Swenson NP Unavailable [phone] Encounter Details Date Type Department Care Team Description 09/07/2022 Wood Carving Lathe Operator Report Medical Records [address] [place] [address] Vladislav Antunez DO Social History Tobacco Use [...] Type Specialty Care Team Description 04/29/2027 Wood Carving Lathe Operator Report Abstract, Provider documented as of this encounter Visit Diagnoses Not on filedocumented in this encounter Care Teams Gate Keeper Relationship Specialty Start Date End Date Wayne Jaimes [address] [place], [place] [phone] PCP - General Internal Medicine 02/16/22 Reilly Baker MD, PHD Surgeon Neurosurgery 01/20/22 Dafne Hilton MD [address] [place], [place] [id number] Specialist Cardiology 10/13/22 Desi Swenson NP [address] [place] [address] Cardiology 02/29/24 documented as of this encounter
--- OUTSIDE RECORDS SUMMARY | 2025-06-28 18:25 | XMS_ITS | Encounter Summary ---
Author Organization [facility] Prior to 05/12/2024 Address [address] [place] [address] Care Team Providers Care Chief Investment Officer Name Role Phone Reilly Baker MD, PHD Unavailable Unava Wayne Blackman Primary Care Provider Dafne Hilton MD Unavailable [phone] Desi Swenson NP Unavailable [phone] Encounter Details Date Type Department Care Team Description 02/23/2022 Orders Only Medical Records [address] [place] [address] Yuliana Auguste MD [address] [place] [address] Social History Tobacco Use Types Packs/Day Years [...] as possible. You may also use an dapy-mdl-kyyydbb acid reducing agent such as Pepcid, Tums, omeprazole etc. when necessary.I would like to personally thank you for allowing us to take care of you. Please don't hesitate to call us for any questions or concerns. Regards, Vivek Auguste MD Board Certified Gastroenterology and Internal Medicine Transplant Hepatology [facility] documented in this encounter Plan of Treatment Upcoming Encounters Date Type Specialty Care Team Description 04/29/2027 Log Scaler Report Abstract, Provider documented as of this encounter Procedures Procedure Name Priority Date/Time Associated Diagnosis Comments OUTSIDE PATHOLOGY Routine 02/18/2022 documented in this encounter Results * OUTSIDE PATHOLOGY (02/18/2022) Yuliana Auguste MD OUTSIDE LAB documented in this encounter Visit Diagnoses Not on filedocumented in this encounter Care Teams Chief Investment Officer Relationship Specialty Start Date End Date Wayne JaimesUsama [address] [place] [address] PCP - General Internal Medicine 02/16/22 Reilly Baker MD, PHD Surgeon Neurosurgery 01/20/22 Dafne Hilton MD [address] [place] [address] Specialist Cardiology 10/13/22 Desi Swenson NP [address] [place] [address] Cardiology 02/29/24 documented as of this encounter
--- OUTSIDE RECORDS SUMMARY | 2025-06-28 18:25 | XMS_ITS | Encounter Summary ---
Author Organization [employer] [facility] Prior to 05/12/2024 Address [address] [place] [address] Care Team Providers Care Employment Office Clerk Name Role Phone Brett Velásquez MD Primary Care Provider Reilly Stewart MD, PHD Unavailable Unava ilBrett Bailon MD Primary Care Provider Wayne Dickson Primary Care Provider [phone] Dafne Hilton MD Unavailable [phone] Desi Swenson NP Unavailable [phone] Encounter Details Date Type Department Care Team Description 08/06/2016 Release of Information Medical Records [address] [place] [id number] Abstract, Provider Social History Tobacco Use Types [...] Date Type Specialty Care Team Description 04/29/2027 Market Researcher Report Abstract, Provider documented as of this encounter Visit Diagnoses Not on filedocumented in this encounter Care Teams Employment Office Clerk Relationship Specialty Start Date End Date Brett Velásquez MD PCP - General Internal Medicine 04/21/16 01/25/22 Brett Velásquez MD PCP - General Internal Medicine 01/26/22 02/15/22 Wayne Jaimes [address] [place] [address] PCP - General Internal Medicine 02/16/22 Reilly Baker MD, PHD Surgeon Neurosurgery 01/20/22 Dafne Hilton MD [address] [place] [address] Specialist Cardiology 10/13/22 Desi Swenson NP [address] [place] [address] Cardiology 02/29/24 documented as of this encounter
--- OUTSIDE RECORDS SUMMARY | 2025-06-28 18:25 | XMS_ITS | Encounter Summary ---
Author Organization [employer] [facility] Prior to 05/12/2024 Address [address] [place] [address] Care Team Providers Care Fish Cleaner Machine Tender Name Role Phone Brett Velásquez MD Primary Care Provider Keisha Luna MD Primary Care Provider [phone] Brett Velásquez MD Primary Care Provider Reilly Stewart MD, PHD Unavailable Unava ilable Brett Veálsquez MD Primary Care Provider Wayne Dickson Primary Care Provider [phone] Dafne Hilton MD Unavailable [phone] Desi Swenson NP Unavailable [phone] Encounter Details Date Type Department Care Team Description 03/02/2013 Material Mover Report Medical Records [address] [place] [address] [facility] [place] Social History Tobacco Use Types Packs/Day Years [...] Date Type Specialty Care Team Description 04/29/2027 Material Mover Report Abstract, Provider documented as of this encounter Visit Diagnoses Not on filedocumented in this encounter Care Teams Fish Cleaner Machine Tender Relationship Specialty Start Date End Date Brett Velásquez MD PCP - General Internal Medicine 10/29/11 06/19/15 Keisha Chavez MD [address] [place] [address] PCP - General Internal Medicine 06/20/15 04/20/16 Brett Velásquez MD PCP - General Internal Medicine 04/21/16 01/25/22 Brett Velásquez MD PCP - General Internal Medicine 01/26/22 02/15/22 Wayne Jaimes [address] [place] [address] PCP - General Internal Medicine 02/16/22 Reilly Baker MD, PHD [address] [place] [address] Surgeon Neurosurgery 01/20/22 Dafne Hilton MD [address] [place] [address] Specialist Cardiology 10/13/22 Desi Swenson NP [address] [place] [address] Cardiology 02/29/24 documented as of this encounter
--- OUTSIDE RECORDS SUMMARY | 2025-06-28 18:26 | XMS_ITS | Encounter Summary ---
Author Organization [facility] Prior to 05/12/2024 Address [address] [place] [address] Care Team Providers Care Toys Inspector Name Role Phone Brett Velásquez MD Primary Care Provider Reilly Stewart MD, PHD Unavailable Brett España MD Primary Care Provider Wayne Dickson Primary Care Provider Dafne Hilton MD Unavailable [phone] Desi Swenson NP Unavailable [phone] Reason for Visit * Reason Comments E-prescribe Rx Request Encounter Details Date Type Department Care Team Description 12/11/2021 Refill [facility] [address] [phone] Ena Whipple PAKhushbooC [address] [address] E-prescribe Rx Request Social History Tobacco Use [...] Date Type Specialty Care Team Description 04/29/2027 Sr. Manager Marketing Report Abstract, Provider documented as of this encounter Visit Diagnoses Not on filedocumented in this encounter Care Teams Toys Inspector Relationship Specialty Start Date End Date Brett Velásquez MD PCP - General Internal Medicine 04/21/16 01/25/22 Brett Velásquez MD PCP - General Internal Medicine 01/26/22 02/15/22 Wayne Jaimes [address] [place] [address] PCP - General Internal Medicine 02/16/22 Reilly Baker MD, PHD Surgeon Neurosurgery 01/20/22 Dafne Hilton MD [address] [place] [address] Specialist Cardiology 10/13/22 Desi Swenson NP [address] [place] [address] Cardiology 02/29/24 documented as of this encounter
--- OUTSIDE RECORDS SUMMARY | 2025-06-28 18:26 | XMS_ITS | Encounter Summary ---
Author Organization [facility] Prior to 05/12/2024 Address [address] [place] [address] Care Team Providers Care Plumber'S Helper Name Role Phone Brett Velásquez MD Primary Care Provider Keisha Luna MD Primary Care Provider [phone] Brett Velásquez MD Primary Care Provider Reilly Stewart MD, PHD Unavailable Unava ilable Brett Velásquez MD Primary Care Provider Wayne Dickson Primary Care Provider [phone] Dafne Hilton MD Unavailable [phone] Desi Swenson NP Unavailable [phone] Encounter Details Date Type Department Care Team Description 06/18/2014 Mechanical Technical Service Specialist Report Medical Records [address] [place] [address] Aleksandar Huggins MD Social History Tobacco Use [...] Type Specialty Care Team Description 04/29/2027 Mechanical Technical Service Specialist Report Abstract, Provider documented as of this encounter Visit Diagnoses Not on filedocumented in this encounter Care Teams Plumber'S Helper Relationship Specialty Start Date End Date Brett Velásquez MD PCP - General Internal Medicine 10/29/11 06/19/15 Keisha Chavez MD [address] [place] [address] PCP - General Internal Medicine 06/20/15 04/20/16 Brett Velásquez MD PCP - General Internal Medicine 04/21/16 01/25/22 Brett Velásquez MD PCP - General Internal Medicine 01/26/22 02/15/22 Wayne Jaimes [address] [place] [address] PCP - General Internal Medicine 02/16/22 Reilly Baker MD, PHD [address] [place] [address] Surgeon Neurosurgery 01/20/22 Dafne Hilton MD [address] [place] [address] Specialist Cardiology 10/13/22 Desi Swenson NP [address] [place] [address] Cardiology 02/29/24 documented as of this encounter
--- OUTSIDE RECORDS SUMMARY | 2025-06-28 18:26 | XMS_ITS | Encounter Summary ---
Author Organization [facility] Prior to 05/12/2024 Address [address] [place] [address] Care Team Providers Care Guard Entrance Registrar Name Role Phone Brett Velásquez MD Primary Care Provider Reilly Stewart MD, PHD Unavailable Unava Brett Villegas MD Primary Care Provider Wayne Dickson Primary Care Provider Dafne Hilton MD Unavailable [phone] Desi Swenson NP Unavailable [phone] Reason for Visit * Reason Onset Date Comments Medication 12/05/2021 Encounter Details Date Type Department Care Team Description 12/05/2021 Telephone [facility] Medical [facility] [address] [address] Ena Whipple, PA-C [address] [address] Medication Social History Tobacco Use Types Packs/Day [...] Date Type Specialty Care Team Description 04/29/2027 Asphalt Paving Machine Operator Report Abstract, Provider documented as of this encounter Visit Diagnoses Not on filedocumented in this encounter Care Teams Guard Entrance Registrar Relationship Specialty Start Date End Date Brett Velásquez MD PCP - General Internal Medicine 04/21/16 01/25/22 Brett Velásquez MD PCP - General Internal Medicine 01/26/22 02/15/22 Wayne Jaimes [address] [place] [address] PCP - General Internal Medicine 02/16/22 Reilly Baker MD, PHD Surgeon Neurosurgery 01/20/22 Dafne Hilton MD [address] [place] [address] Specialist Cardiology 10/13/22 Desi Swenson NP [address] [place] [address] Cardiology 02/29/24 documented as of this encounter
--- OUTSIDE RECORDS SUMMARY | 2025-06-28 18:26 | XMS_ITS | Encounter Summary ---
Author Organization [employer] [facility] Prior to 05/12/2024 Address [address] [place] [address] Care Team Providers Care Car Pick Up Driver Name Role Phone Reilly Baker MD, PHD Unavailable Unava Wayne Blackman Primary Care Provider [phone] Dafne Hilton MD Unavailable [phone] Desi Swenson NP Unavailable [phone] Encounter Details Date Type Department Care Team Description 09/15/2023 Orders Only Medical Records [address] [place] [address] Yuliana Auguste MD [address] [place] [address] Social History Tobacco Use Types Packs/Day Years [...] Date Type Specialty Care Team Description 04/29/2027 Transport Driver Report Abstract, Provider documented as of this encounter Procedures Procedure Name Priority Date/Time Associated Diagnosis Comments OUTSIDE COLONOSCOPY Routine 09/09/2023 documented in this encounter Results * OUTSIDE COLONOSCOPY (09/09/2023) Yuliana Auguste MD RADIOLOGY documented in this encounter Visit Diagnoses Not on filedocumented in this encounter Care Teams Car Pick Up Driver Relationship Specialty Start Date End Date Wayne Jaimes Delmer [address] [place] [address] PCP - General Internal Medicine 02/16/22 Reilly Baker MD, PHD Surgeon Neurosurgery 01/20/22 Dafne Hilton MD [address] [place] [address] Specialist Cardiology 10/13/22 Desi Swenson NP [address] [place], [place] [address] Cardiology 02/29/24 documented as of this encounter
--- OUTSIDE RECORDS SUMMARY | 2025-06-28 18:26 | XMS_ITS | Encounter Summary ---
Author Organization [employer] [facility] Prior to 05/12/2024 Address [address] [place] [address] Care Team Providers Care Executive Steward Name Role Phone Reilly Baker MD, PHD Unavailable Unava ilable Wayne Jaimes Primary Care Provider Dafne Hilton MD Unavailable [phone] Desi Swenson NP Unavailable [phone] Encounter Details Date Type Department Care Team Description 06/22/2023 Tie Tamper Report Medical Records [address] [place] [address] Vladislav Antunez DO Social History Tobacco Use [...] Type Specialty Care Team Description 04/29/2027 Tie Tamper Report Abstract, Provider documented as of this encounter Visit Diagnoses Not on filedocumented in this encounter Care Teams Executive Steward Relationship Specialty Start Date End Date Wayne Jaimes [address] [place] [address] PCP - General Internal Medicine 02/16/22 Reilly Baker MD, PHD Surgeon Neurosurgery 01/20/22 Dafne Hilton MD [address] [place] [address] Specialist Cardiology 10/13/22 Desi Swenson NP [address] [place] [address] Cardiology 02/29/24 documented as of this encounter
--- OUTSIDE RECORDS SUMMARY | 2025-06-28 18:26 | XMS_ITS | Encounter Summary ---
Author Organization [facility] Prior to 05/12/2024 Address [address] [place] [address] Care Team Providers Care Auditor Internal Name Role Phone Reilly Baker MD, PHD Unavailable Unava Wayne Blackman Primary Care Provider [phone] Dafne Hilton MD Unavailable [phone] Desi Swenson NP Unavailable Reason for Visit * Reason Onset Date Comments Abdominal Pain 07/30/2023 Encounter Details Date Type Department Care Team Description 07/30/2023 Telephone Pulmonology - [address] [place] [address] Kevin Oliva PA-C Abdominal Pain Social History Tobacco Use Types [...] other consideration could be to see ifMylanta [id number] might be helpful. Hopefully we can see [...] 2:20 PM EST Patient came into the lobby unaware appt. 07/30/2023 had been cancelled, states he is having abdominal pain after he eats, please advise documented in this encounter Plan of Treatment Upcoming Encounters Date Type Specialty Care Team Description 04/29/2027 Hard Metals Hand Engraver Report Abstract, Provider documented as of this encounter Visit Diagnoses Not on filedocumented in this encounter Care Teams Auditor Internal Relationship Specialty Start Date End Date Wayne Jaimes [address] [place] [address] PCP - General Internal Medicine 02/16/22 Reilly Baker MD, PHD Surgeon Neurosurgery 01/20/22 Dafne Hilton MD [address] [place] [address] Specialist Cardiology 10/13/22 Desi Swenson NP [address] [place] [address] Cardiology 02/29/24 documented as of this encounter
--- OUTSIDE RECORDS SUMMARY | 2025-06-28 18:26 | XMS_ITS | Encounter Summary ---
Author Organization [facility] [employer] [facility] Prior to 05/12/2024 Address [address] [place] [address] Care Team Providers Care Marketing Communications Assistant Name Role Phone Reilly Baker MD, PHD Unavailable Unava ilable Wayne Jaimes Primary Care Provider [phone] Dafne Hilton MD Unavailable [phone] Desi Swenson NP Unavailable [phone] Reason for Visit * Reason Onset Date Comments Medication 08/26/2023 Encounter Details Date Type Department Care Team Description 08/26/2023 Refill Gastroenterology [address] [place] [phone] Yuliana Auguste MD [address] [place], [place] [phone] Medication Social History Tobacco Use Types Packs/Day [...] Type Specialty Care Team Description 04/29/2027 Clinical Education Assistant Report Abstract, Provider documented as of this encounter Visit Diagnoses Not on filedocumented in this encounter Care Teams Marketing Communications Assistant Relationship Specialty Start Date End Date Wayne Jaimes [address] [place], [place] [phone] PCP - General Internal Medicine 02/16/22 Reilly Baker MD, PHD Surgeon Neurosurgery 01/20/22 Dafne Hilton MD [address] [place] [address] Specialist Cardiology 10/13/22 Dsei Swenson NP [address] [place] [address] Cardiology 02/29/24 documented as of this encounter
--- OUTSIDE RECORDS SUMMARY | 2025-06-28 18:26 | XMS_ITS | Encounter Summary ---
Author Organization [facility] Prior to 05/12/2024 Address [address] [place] [address] Care Team Providers Care Portable Machine Sander Name Role Phone Brett Velásquez MD Primary Care Provider Reilly Stewart MD, PHD Unavailable Brett España MD Primary Care Provider Wayne Dickson Primary Care Provider Dafne Hilton MD Unavailable [phone] Desi Swenson NP Unavailable [phone] Reason for Visit * Reason Comments E-prescribe Rx Request Encounter Details Date Type Department Care Team Description 05/05/2021 Refill [facility] Medical [facility] [address] [address] Hermes Alegre MD [address] [address] E-prescribe Rx Request Social History Tobacco Use [...] Type Specialty Care Team Description 04/29/2027 Technician Plant And Maintenance Report Abstract, Provider documented as of this encounter Visit Diagnoses Not on filedocumented in this encounter Care Teams Portable Machine Sander Relationship Specialty Start Date End Date Brett Velásquez MD PCP - General Internal Medicine 04/21/16 01/25/22 Brett Velásquez MD PCP - General Internal Medicine 01/26/22 02/15/22 Wayne Jaimes [address] [place] [address] PCP - General Internal Medicine 02/16/22 Reilly Baker MD, PHD Surgeon Neurosurgery 01/20/22 Dafne Hilton MD [address] [place] [address] Specialist Cardiology 10/13/22 Desi Swenson NP [address] [place] [address] Cardiology 02/29/24 documented as of this encounter
--- OUTSIDE RECORDS SUMMARY | 2025-06-28 18:26 | XMS_ITS | Encounter Summary ---
Author Organization [facility] Prior to 05/12/2024 Address [address] [place] [address] Care Team Providers Care Peace Officer Name Role Phone Reilly Baker MD, PHD Unavailable Unava Wayne Blackman Primary Care Provider [phone] Dafne Hilton MD Unavailable [phone] Desi Swenson NP Unavailable [phone] Encounter Details Date Type Department Care Team Description 08/19/2023 Telephone Gastroenterology - [address] [place] [address] Kevin Oliva PA-C Social History [...] also ordered a barium swallow done at [facility] and states that the same finding was [...] .patient will also need to have a Yoruba cell attendant. Please advise documented in this encounter Plan of Treatment Upcoming Encounters Date Type Specialty Care Team Description 04/29/2027 Ready To Wear Department Manager Report Abstract, Provider documented as of this encounter Visit Diagnoses Not on filedocumented in this encounter Care Teams Peace Officer Relationship Specialty Start Date End Date Wayne Jaimes [address] [place] [address] PCP - General Internal Medicine 02/16/22 Reilly Baker MD, PHD Surgeon Neurosurgery 01/20/22 Dafne Hilton MD [address] [place] [address] Specialist Cardiology 10/13/22 Desi Swenson NP [address] [place] [address] Cardiology 02/29/24 documented as of this encounter
--- OUTSIDE RECORDS SUMMARY | 2025-06-28 18:26 | XMS_ITS | Encounter Summary ---
Author Organization [facility] Prior to 05/12/2024 Address [address] [place] [address] Care Team Providers Care City Alderman Name Role Phone Brett Velásquez MD Primary Care Provider Reilly Stewart MD, PHD Unavailable Unava ilBrett Bailon MD Primary Care Provider Wayne Dickson Primary Care Provider [phone] Dafne Hilton MD Unavailable Desi Swenson NP Unavailable [phone] Encounter Details Date Type Department Care Team Description 01/23/2019 Release of Information Medical Records [address] [place] [address] Abstract, Provider Social History Tobacco Use Types [...] Date Type Specialty Care Team Description 04/29/2027 Mid Teacher Report Abstract, Provider documented as of this encounter Visit Diagnoses Not on filedocumented in this encounter Care Teams City Alderman Relationship Specialty Start Date End Date Brett Velásquez MD PCP - General Internal Medicine 04/21/16 01/25/22 Brett Velásquez MD PCP - General Internal Medicine 01/26/22 02/15/22 Wayne Jaimes [address] [place] [address] PCP - General Internal Medicine 02/16/22 Reilly Baker MD, PHD Surgeon Neurosurgery 01/20/22 Dafne Hilton MD [address] [place] [address] Specialist Cardiology 10/13/22 Desi Swenson NP [address] [place] [address] Cardiology 02/29/24 documented as of this encounter
--- OUTSIDE RECORDS SUMMARY | 2025-06-28 18:26 | XMS_ITS | Encounter Summary ---
Author Organization [employer] [facility] Prior to 05/12/2024 Address [address] [place] [address] Care Team Providers Care Woven Label Designer Name Role Phone Brett Velásquez MD Primary Care Provider Reilly Stewart MD, PHD Unavailable Unava ilBrett Bailon MD Primary Care Provider Wayne Dickson Primary Care Provider [phone] Dafne Hilton MD Unavailable [phone] Desi Swenson NP Unavailable [phone] Encounter Details Date Type Department Care Team Description 09/27/2018 Core Maker Helper Report Medical Records [address] [place] [address] Vipin Cowart Social History Tobacco Use Types [...] Date Type Specialty Care Team Description 04/29/2027 Core Maker Helper Report Abstract, Provider documented as of this encounter Visit Diagnoses Not on filedocumented in this encounter Care Teams Woven Label Designer Relationship Specialty Start Date End Date Brett Velásquez MD PCP - General Internal Medicine 04/21/16 01/25/22 Brett Velásquez MD PCP - General Internal Medicine 01/26/22 02/15/22 Wayne Jaimes [address] [place] [address] PCP - General Internal Medicine 02/16/22 Reilly Baker MD, PHD Surgeon Neurosurgery 01/20/22 Dafne Hilton MD [address] [place] [address] Specialist Cardiology 10/13/22 Desi Swenson NP [address] [place] [address] Cardiology 02/29/24 documented as of this encounter
--- OUTSIDE RECORDS SUMMARY | 2025-06-28 18:26 | XMS_ITS | Encounter Summary ---
Author Organization [facility] Prior to 05/12/2024 Address [address] [place] [address] Care Team Providers Care Lye Boiler Name Role Phone Brett Velásquez MD Primary Care Provider Reilly Stewart MD, PHD Unavailable Brett España MD Primary Care Provider Wayne Dickson Primary Care Provider [phone] Dafne Hilton MD Unavailable [phone] Desi Swenson NP Unavailable [phone] Encounter Details Date Type Department Care Team Description 03/18/2021 Factory Manager Report Medical Records [address] [place] [address] Zuleika Baez PA-C Social History Tobacco Use [...] Date Type Specialty Care Team Description 04/29/2027 Factory Manager Report Abstract, Provider documented as of this encounter Visit Diagnoses Not on filedocumented in this encounter Care Teams Lye Boiler Relationship Specialty Start Date End Date Brett Velásquez MD PCP - General Internal Medicine 04/21/16 01/25/22 Brett Velásquez MD PCP - General Internal Medicine 01/26/22 02/15/22 Wayne Jaimes [address] [place] [address] PCP - General Internal Medicine 02/16/22 Reilly Baker MD, PHD Surgeon Neurosurgery 01/20/22 Dafne Hilton MD [address] [place] [address] Specialist Cardiology 10/13/22 Desi Swenson NP [address] [place] [address] Cardiology 02/29/24 documented as of this encounter
--- OUTSIDE RECORDS SUMMARY | 2025-06-28 18:26 | XMS_ITS | Encounter Summary ---
Author Organization [facility] Prior to 05/12/2024 Address [address] [place] [address] Care Team Providers Care Locomotive Firer Name Role Phone Reilly Baker MD, PHD Unavailable Unava ilable Wayne Jaimes Primary Care Provider Dafne Hilton MD Unavailable [phone] Desi Swenson NP Unavailable [phone] Encounter Details Date Type Department Care Team Description 08/06/2023 Hospital Medical Records [address] [place] [address] Ankita Yanes MD [address] [address] Social History Tobacco Use Types Packs/Day Years [...] Type Specialty Care Team Description 04/29/2027 Vehicle Sales Professional Report Abstract, Provider documented as of this encounter Visit Diagnoses Not on filedocumented in this encounter Care Teams Locomotive Firer Relationship Specialty Start Date End Date Wayne Jaimes [address] [place] [address] PCP - General Internal Medicine 8/8/22 Reilly Baker MD, PHD Surgeon Neurosurgery 01/20/22 Dafne Hilton MD [address] [place] [address] Specialist Cardiology 10/13/22 Desi Swenson NP [address] [place] [address] Cardiology 02/29/24 documented as of this encounter
--- OUTSIDE RECORDS SUMMARY | 2025-06-28 18:26 | XMS_ITS | Encounter Summary ---
Author Organization [employer] [facility] Prior to 05/12/2024 Address [address] [place] [address] Care Team Providers Care News Video Editor Name Role Phone Reilly Baker MD, PHD Unavailable Unava ilable Wayne Jaimes Primary Care Provider [phone] Dafne Hilton MD Unavailable [phone] Desi Swenson NP Unavailable [phone] Encounter Details Date Type Department Care Team Description 03/21/2024 Report Writer Report Medical Records [address] [place] [address] Vladislav Antunez DO Social History Tobacco Use [...] Date Type Specialty Care Team Description 04/29/2027 Report Writer Report Abstract, Provider documented as of this encounter Visit Diagnoses Not on filedocumented in this encounter Care Teams News Video Editor Relationship Specialty Start Date End Date Wayne Jaimes [address] [place] [address] PCP - General Internal Medicine 02/16/22 Reilly Baker MD, PHD Surgeon Neurosurgery 01/20/22 Dafne Hilton MD [address] [place] [address] Specialist Cardiology 10/13/22 Desi Swenson NP [address] [place] [address] Cardiology 02/29/24 documented as of this encounter
--- OUTSIDE RECORDS SUMMARY | 2025-06-28 18:26 | XMS_ITS | Encounter Summary ---
Author Organization [facility] Prior to 05/12/2024 Address [address] [place] [address] Care Team Providers Care Lathe Hand Name Role Phone Reilly Baker MD, PHD Unavailable Unava Wayne Blackman Primary Care Provider [phone] Dafne Hilton MD Unavailable [phone] Desi Swenson NP Unavailable [phone] Encounter Details Date Type Department Care Team Description 09/30/2023 Pt. Non Urgent Medic al Question Gastroenterology - [address] [place] [id number] Kevin Oliva PA-C Social History Tobacco [...] Type Specialty Care Team Description 04/29/2027 Sheet Rock Layer Report Abstract, Provider documented as of this encounter Visit Diagnoses Not on filedocumented in this encounter Care Teams Lathe Hand Relationship Specialty Start Date End Date Wayne Jaimes [address] [place] [address] PCP - General Internal Medicine 02/16/22 Reilly Baker MD, PHD Surgeon Neurosurgery 01/20/22 Dafne Hilton MD [address] [place] [address] Specialist Cardiology 10/13/22 Desi Sewnson NP [address] [place] [address] Cardiology 02/29/24 documented as of this encounter
--- OUTSIDE RECORDS SUMMARY | 2025-06-28 18:26 | XMS_ITS | Encounter Summary ---
Author Organization [facility] Prior to 05/12/2024 Address [address] [place] [address] Care Team Providers Care Gate Services Supervisor Name Role Phone Reilly Baker MD, PHD Unavailable Unava Wayne Blackman Primary Care Provider [phone] Dafne Hilton MD Unavailable [phone] Desi Swenson NP Unavailable [phone] Encounter Details Date Type Department Care Team Description 01/18/2024 Telephone Gastroenterology - [address] [place] [address] Kevin Oliva PA-C Social History [...] Miscellaneous Notes * Telephone Encounter - Cristina Barbara - 01/31/2024 3:25 PM EDT Per Prisca at [facility], [facility] is not contracted with patient's insurance either, [facility] [employer] HMO. Per abdias Brown to book at [facility]. Called Central Registration at [phone] but they want the order faxed with demo sheet. Faxed to [phone]. * Telephone Encounter - Alexandria John - 01/31/2024 3:08 PM EDT Patient came in office stating [facility] is not accepting patient insurance. Please schedule appointment at [facility] for Barium Swallow and contact patient with information. * Telephone Encounter - Cristina Jimenez - 01/18/2024 8:21 AM EDT Booked Barium Swallow at [address] [place] [address] for patient on January 31 at 8am w/ arrival at 7:45am. Called the patient to notify of appointment details, including nothing to eat/drink after midnight. I also mailed an appointment letter. Order has been faxed to [phone]. documented in this encounter Plan of Treatment Upcoming Encounters Date Type Specialty Care Team Description 04/29/2027 Business School Dean Report Abstract, Provider documented as of this encounter Visit Diagnoses Not on filedocumented in this encounter Care Teams Gate Services Supervisor Relationship Specialty Start Date End Date Wayne Jaimes [address] [place] [address] PCP - General Internal Medicine 02/16/22 Reilly Baker MD, PHD Surgeon Neurosurgery 01/20/22 Dafne Hilton MD [address] [place] [address] Specialist Cardiology 10/13/22 Desi Swenson NP [address] [place] [address] Cardiology 02/29/24 documented as of this encounter
--- OUTSIDE RECORDS SUMMARY | 2025-06-28 18:26 | XMS_ITS | Encounter Summary ---
Author Organization [facility] Prior to 05/12/2024 Address [address] [place] [address] Care Team Providers Care Steam Conditioner Filling Name Role Phone Reilly Baker MD, PHD Unavailable Unava Wayne Blackman Primary Care Provider [phone] Dafne Hilton MD Unavailable [phone] Desi Swenson NP Unavailable [phone] Encounter Details Date Type Department Care Team Description 05/06/2023 Orders Only Medical Records [address] [place] [address] Ankita Mckeon NP Social History Tobacco Use [...] Date Type Specialty Care Team Description 04/29/2027 Meat Carrier Report Abstract, Provider documented as of this encounter Procedures Procedure Name Priority Date/Time Associated Diagnosis Comments OUTSIDE LAB Routine 04/05/2023 documented in this encounter Results * OUTSIDE LAB (04/05/2023) Ankita Mckeon NP LAB documented in this encounter Visit Diagnoses Not on filedocumented in this encounter Care Teams Steam Conditioner Filling Relationship Specialty Start Date End Date Erinarin Wayne R. [address] [place] [address] PCP - General Internal Medicine 02/16/22 Reilly Baker MD, PHD Surgeon Neurosurgery 01/20/22 Dafne Hilton MD [address] [place] [address] Specialist Cardiology 10/13/22 Desi Swenson NP [address] [place], [place] [address] Cardiology 02/29/24 documented as of this encounter
--- OUTSIDE RECORDS SUMMARY | 2025-06-28 18:26 | XMS_ITS | Encounter Summary ---
Author Organization [facility] Prior to 05/12/2024 Address [address] [place] [address] Care Team Providers Care Art Therapy Certified Supervisor Name Role Phone Reilly Baker MD, PHD Unavailable Unava ilable Wayne Jaimes Primary Care Provider [phone] Dafne Hilton MD Unavailable Desi Swenson NP Unavailable [phone] Encounter Details Date Type Department Care Team Description 04/15/2023 Client Retention Specialist Report Medical Records [address] [place] [address] Vladislav Antunez DO Social History Tobacco Use [...] Date Type Specialty Care Team Description 04/29/2027 Client Retention Specialist Report Abstract, Provider documented as of this encounter Visit Diagnoses Not on filedocumented in this encounter Care Teams Art Therapy Certified Supervisor Relationship Specialty Start Date End Date Wayne Jaimes [address] [place], [place] [address] PCP - General Internal Medicine 02/16/22 Reilly Baker MD, PHD Surgeon Neurosurgery 01/20/22 Dafne Hilton MD [address] [place] [address] Specialist Cardiology 10/13/22 Desi Swenson NP [address] [place] [address] Cardiology 02/29/24 documented as of this encounter
--- OUTSIDE RECORDS SUMMARY | 2025-06-28 18:26 | XMS_ITS | Encounter Summary ---
Author Organization [facility] Prior to 05/12/2024 Address [address] [place] [address] Care Team Providers Care Foam Molder Name Role Phone Reilly Baker MD, PHD Unavailable Unava Wayne Blackman Primary Care Provider [phone] Dafne Hilton MD Unavailable [phone] Desi Swenson NP Unavailable [phone] Encounter Details Date Type Department Care Team Description 02/15/2024 Orders Only Gastroenterology - [address] [place] [address] Kevin Oliva PA-C Gastroesophageal reflux [...] Date Type Specialty Care Team Description 04/29/2027 Roll Form Operator Report Abstract, Provider documented as of [...] type documented in this encounter Care Teams Foam Molder Relationship Specialty Start Date End Date Wayne Jaimes [address] [place] [address] PCP - General Internal Medicine 02/16/22 Reilly Baker MD, PHD Surgeon Neurosurgery 01/20/22 Dafne Hilton MD [address] [place] [address] Specialist Cardiology 10/13/22 Desi Swenson NP [address] [place] [address] Cardiology 02/29/24 documented as of this encounter
--- OUTSIDE RECORDS SUMMARY | 2025-06-28 18:26 | XMS_ITS | Encounter Summary ---
Author [facility] Address [address] [place] [address] Care Team Providers Care President And Chief Commercial Officer Name Role Phone Reilly Baker MD, PHD Unavailable Unava Wayne Blackman Primary Care Provider [phone] Dafne Hilton MD Unavailable [phone] Desi Swenson NP Unavailable [phone] Encounter Details Date Type Department Care Team Description 08/20/2023 Telephone Gastroenterology - [address] [place] [address] Kevin Oliva PA-C Social History [...] Type Specialty Care Team Description 04/29/2027 Software Installation Engineer Report Abstract, Provider documented as of this encounter Visit Diagnoses Not on filedocumented in this encounter Care Teams President And Chief Commercial Officer Relationship Specialty Start Date End Date Wayne JaimesUsama [address] [place] [address] PCP - General Internal Medicine 02/16/22 Reilly Baker MD, PHD Surgeon Neurosurgery 01/20/22 Dafne Hilton MD [address] [place] [address] Specialist Cardiology 10/13/22 Desi Swenson NP [address] [place] [address] Cardiology 02/29/24 documented as of this encounter
--- OUTSIDE RECORDS SUMMARY | 2025-06-28 18:26 | XMS_ITS | Encounter Summary ---
Author Organization [facility] Prior to 05/12/2024 Address [address] [place] [address] Care Team Providers Care Shoe Worker Name Role Phone Brett Velásquez MD Primary Care Provider Reilly Stewart MD, PHD Unavailable Brett España MD Primary Care Provider Wayne Dickson Primary Care Provider [phone] Dafne Hilton MD Unavailable [phone] Desi Swenson NP Unavailable [phone] Encounter Details Date Type Department Care Team Description 02/16/2019 Orders Only Medical Records [address] [place] [address] Yuliana Auguste MD [address] [place] [address] Social History Tobacco Use Types Packs/Day Years [...] Type Specialty Care Team Description 04/29/2027 Balance And Hairspring Assembler Report Abstract, Provider documented as of this encounter Procedures Procedure Name Priority Date/Time Associated Diagnosis Comments OUTSIDE PATHOLOGY Routine 02/14/2019 documented in this encounter Results * OUTSIDE PATHOLOGY (02/14/2019) H Perez Auguste MD OUTSIDE LAB documented in this encounter Visit Diagnoses Not on filedocumented in this encounter Care Teams Shoe Worker Relationship Specialty Start Date End Date Brett Velásquez MD PCP - General Internal Medicine 04/21/16 01/25/22 Brett Velásquez MD PCP - General Internal Medicine 01/26/22 02/15/22 Wayne Jaimes [address] [place] [address] PCP - General Internal Medicine 02/16/22 Reilly Baker MD, PHD Surgeon Neurosurgery 01/20/22 Dafne Hilton MD [address] [place], [place] [address] Specialist Cardiology 10/13/22 Desi Swenson NP [address] [place], [place] [address] Cardiology 02/29/24 documented as of this encounter
--- OUTSIDE RECORDS SUMMARY | 2025-06-28 18:26 | XMS_ITS | Encounter Summary ---
Author Organization [facility] Prior to 05/12/2024 Address [address] [place] [address] Care Team Providers Care Airline Pilot Name Role Phone Reilly Baker MD, PHD Unavailable Unava ilable Wayne Jaimes Primary Care Provider [phone] Dafne Hilton MD Unavailable [phone] Desi Swenson NP Unavailable [phone] Encounter Details Date Type Department Care Team Description 09/21/2023 Orders Only Medical Records [address] [place] [address] Vipin Cherry Social History Tobacco Use Types [...] Type Specialty Care Team Description 04/29/2027 Lab Aid Report Abstract, Provider documented as of this encounter Procedures Procedure Name Priority Date/Time Associated Diagnosis Comments OUTSIDE BARIUM SWALLOW Routine 08/17/2023 documented in this encounter Results * OUTSIDE BARIUM SWALLOW (08/17/2023) Vipin Cherry RADIOLOGY documented in this encounter Visit Diagnoses Not on filedocumented in this encounter Care Teams Airline Pilot Relationship Specialty Start Date End Date Wayne Jaimes [address] [place] [address] PCP - General Internal Medicine 02/16/22 Reilly Baker MD, PHD Surgeon Neurosurgery 01/20/22 Dafne Hilton MD [address] [place] [address] Specialist Cardiology 10/13/22 Desi Swenson NP [address] [place] [address] Cardiology 02/29/24 documented as of this encounter
--- OUTSIDE RECORDS SUMMARY | 2025-06-28 18:26 | XMS_ITS | Encounter Summary ---
Author Organization [facility] Prior to 05/12/2024 Address [address] [place] [address] Care Team Providers Care Ocean Export Account Manager Name Role Phone Brett Velásquez MD Primary Care Provider Reilly Stewart MD, PHD Unavailable Unava Brett Villegas MD Primary Care Provider Wayne Dickson Primary Care Provider Dafne Hilton MD Unavailable [phone] Desi Swenson NP Unavailable [phone] Reason for Referral * Non MARTITA (Routine) - Authorized/Booked Specialty Diagnoses / Procedures Referred By Contac t Referred To Contact ORTHOPEDICS / Orthopedic Diagnoses Osteoarthritis of knees, bilateral Procedures REFERRAL TO ORTHOPEDICS (IN NETWORK) Brett Velásquez MD [address] [place] [address] Hermes Alegre MD 175 [facility] [address] [place] [address] Referral ID Status Reason Start Date Expiration Date V isits Requested Visits Authorized [id number] Authorized/ Booked 01/29/2021 01/29/2022 12 12 Reason for Visit * Reason Onset Date Comments Cheese Packer Feedback 01/22/2021 Ortho Encounter Details Date Type Department Care Team Description 01/22/2021 Telephone Adult Medicine [place] [address] [place] [address] Brett Velásquez MD Cheese Packer Feedback (Ortho ) Social History Tobacco Use [...] Date Type Specialty Care Team Description 04/29/2027 Audio Visual Aide Report Abstract, Provider documented as of this encounter Visit Diagnoses Not on filedocumented in this encounter Care Teams Ocean Export Account Manager Relationship Specialty Start Date End Date Brett Velásquez MD PCP - General Internal Medicine 04/21/16 01/25/22 Brett Velásquez MD PCP - General Internal Medicine 01/26/22 02/15/22 Wayne Jaimes [address] [place] [address] PCP - General Internal Medicine 02/16/22 Reilly Baker MD, PHD Surgeon Neurosurgery 01/20/22 Dafne Hilton MD [address] [place] [address] Specialist Cardiology 10/13/22 Desi Swenson NP [address] [place] [address] Cardiology 02/29/24 documented as of this encounter
--- OUTSIDE RECORDS SUMMARY | 2025-06-28 18:26 | XMS_ITS | Encounter Summary ---
Author Organization [facility] Prior to 05/12/2024 Address [address] [place] [address] Care Team Providers Care Geospatial Scientist Name Role Phone Brett Velásquez MD Primary Care Provider Keisha Luna MD Primary Care Provider [phone] Brett Velásquez MD Primary Care Provider Reilly Stewart MD, PHD Unavailable Unami ilable Brett Velásquez MD Primary Care Provider Wayne Dickson Primary Care Provider [phone] Dafne Hilton MD Unavailable [phone] Desi Swenson NP Unavailable [phone] Encounter Details Date Type Department Care Team Description 04/26/2014 Resident Care Assistant Report Medical Records [address] [place] [address] Kareem Grier PA-C Social History Tobacco Use [...] Type Specialty Care Team Description 04/29/2027 Resident Care Assistant Report Abstract, Provider documented as of this encounter Visit Diagnoses Not on filedocumented in this encounter Care Teams Geospatial Scientist Relationship Specialty Start Date End Date Brett Velásquez MD PCP - General Internal Medicine 10/29/11 06/19/15 Keisha Chavez MD [address] [place] [address] PCP - General Internal Medicine 06/20/15 04/20/16 Brett Velásquez MD PCP - General Internal Medicine 04/21/16 01/25/22 Brett Velásquez MD PCP - General Internal Medicine 01/26/22 02/15/22 Wayne Jaimes [address] [place] [address] PCP - General Internal Medicine 02/16/22 Reilly Baker MD, PHD [address] [place] [address] Surgeon Neurosurgery 01/20/22 Dafne Hilton MD [address] [place] [address] Specialist Cardiology 10/13/22 Desi Swenson NP [address] [place] [address] Cardiology 02/29/24 documented as of this encounter
--- OUTSIDE RECORDS SUMMARY | 2025-06-28 18:26 | XMS_ITS | Encounter Summary ---
Author Organization [facility] Prior to 05/12/2024 Address [address] [place] [address] Care Team Providers Care Plastic Hospital Products Assembler Name Role Phone Reilly Baker MD, PHD Unavailable Unava ilable Wayne Jaimes Primary Care Provider [phone] Dafne Hilton MD Unavailable [phone] Desi Swenson NP Unavailable [phone] Encounter Details Date Type Department Care Team Description 08/25/2023 [facility] Records [facility] [address] [facility] [address] [place] [address] Wen Herrmann NP [address] [facility] [place] [address] Social History Tobacco Use Types Packs/Day Years [...] Type Specialty Care Team Description 04/29/2027 Cloth Spreader Screen Printing Report Abstract, Provider documented as of this encounter Visit Diagnoses Not on filedocumented in this encounter Care Teams Plastic Hospital Products Assembler Relationship Specialty Start Date End Date Wayne Jaimes [address] [place] [address] PCP - General Internal Medicine 02/16/22 Reilly Baker MD, PHD Surgeon Neurosurgery 01/20/22 Dafne Hilton MD [address] [place] [address] Specialist Cardiology 10/13/22 Desi Swenson NP [address] [place] [address] Cardiology 02/29/24 documented as of this encounter
--- OUTSIDE RECORDS SUMMARY | 2025-06-28 18:26 | XMS_ITS | Encounter Summary ---
Author Organization [employer] [facility] Prior to 05/12/2024 Address [address] [place] [address] Care Team Providers Care Compliance Coordinator Name Role Phone Brett Velásquez MD Primary Care Provider Reilly Stewart MD, PHD Unavailable Unava Brett Villegas MD Primary Care Provider Wayne Dickson Primary Care Provider [phone] Dafne Hilton MD Unavailable [phone] Desi Swenson NP Unavailable [phone] Encounter Details Date Type Department Care Team Description 04/28/2021 Net Software Developer Report Medical Records [address] [place] [address] Bolivar [place] MD Social History Tobacco Use [...] Type Specialty Care Team Description 04/29/2027 Net Software Developer Report Abstract, Provider documented as of this encounter Visit Diagnoses Not on filedocumented in this encounter Care Teams Compliance Coordinator Relationship Specialty Start Date End Date Brett Velásquez MD PCP - General Internal Medicine 04/21/16 01/25/22 Brett Velásquez MD PCP - General Internal Medicine 01/26/22 02/15/22 Wayne Jaimes [address] [place] [address] PCP - General Internal Medicine 02/16/22 Reilly Baker MD, PHD Surgeon Neurosurgery 01/20/22 Dafne Hilton MD [address] [place] [address] Specialist Cardiology 10/13/22 Desi Swenson NP [address] [place] [address] Cardiology 02/29/24 documented as of this encounter
--- OUTSIDE RECORDS SUMMARY | 2025-06-28 18:26 | XMS_ITS | Encounter Summary ---
Author Organization [facility] Prior to 05/12/2024 Address [address] [place] [address] Care Team Providers Care Genetics Nurse Name Role Phone Reilly Baker MD, PHD Unavailable Unava ilable Wayne Jaimes Primary Care Provider Dafne Hilton MD Unavailable [phone] Desi Swenson NP Unavailable [phone] Encounter Details Date Type Department Care Team Description 11/11/2023 [facility] [address] [place] [address] Md Steve Social History Tobacco Use Types [...] Date Type Specialty Care Team Description 04/29/2027 Box Printer Report Abstract, Provider documented as of this encounter Visit Diagnoses Not on filedocumented in this encounter Care Teams Genetics Nurse Relationship Specialty Start Date End Date Wayne Jaimes [address] [place] [address] PCP - General Internal Medicine 02/16/22 Reilly Baker MD, PHD Surgeon Neurosurgery 01/20/22 Dafne Hilton MD [address] [place] [address] Specialist Cardiology 10/13/22 Desi Swenson NP [address] [place] [address] Cardiology 02/29/24 documented as of this encounter
--- OUTSIDE RECORDS SUMMARY | 2025-06-28 18:26 | XMS_ITS | Encounter Summary ---
Author Organization [facility] Prior to 05/12/2024 Address [address] [place] [address] Care Team Providers Care Caster Operator Name Role Phone Brett Velásquez MD Primary Care Provider Reilly Stewart MD, PHD Unavailable Brett España MD Primary Care Provider Wayne Dickson Primary Care Provider Dafne Hilton MD Unavailable [phone] Desi Swenson NP Unavailable [phone] Reason for Visit * Reason Onset Date Comments Medication Injection, Joint 12/04/2021 LVM advising pt. call [facility] [phone] and provide consent to dispense Gelsyn inj to our office Encounter Details Date Type Department Care Team Description 12/04/2021 Telephone [facility] [address] [address] Ena Whipple PAKhushbooC [address] [address] Medication Injection, Joint (LVM advising pt. call [facility] [phone] and provide consent to dispense Gelsyn inj [...] Date Type Specialty Care Team Description 04/29/2027 Catalytic Case Operator Report Abstract, Provider documented as of this encounter Visit Diagnoses Not on filedocumented in this encounter Care Teams Caster Operator Relationship Specialty Start Date End Date Brett Velásquez MD PCP - General Internal Medicine 04/21/16 01/25/22 Brett Velásquez MD PCP - General Internal Medicine 01/26/22 02/15/22 Wayne Jaimes [address] [place] [address] PCP - General Internal Medicine 02/16/22 Reilly Baker MD, PHD Surgeon Neurosurgery 01/20/22 Dafne Hilton MD [address] [place] [address] Specialist Cardiology 10/13/22 Desi Swenson NP [address] [place] [address] Cardiology 02/29/24 documented as of this encounter
--- OUTSIDE RECORDS SUMMARY | 2025-06-28 18:26 | XMS_ITS | Encounter Summary ---
Author Organization [employer] [facility] Prior to 05/12/2024 Address [address] [place] [address] Care Team Providers Care Moto Mix Operator Name Role Phone Brett Velásquez MD Primary Care Provider Reilly Stewart MD, PHD Unavailable UnaBrett Davis MD Primary Care Provider Wayne Dickson Primary Care Provider Dafne Hilton MD Unavailable [phone] Desi Swenson NP Unavailable [phone] Reason for Visit * Reason Onset Date Comments injection 02/02/2019 Encounter Details Date Type Department Care Team Description 02/02/2019 Telephone Physiatry - [address] [id number] Sonny Abrams PA-C injection Social History Tobacco [...] Date Type Specialty Care Team Description 04/29/2027 Jigger Operator Report Abstract, Provider documented as of this encounter Visit Diagnoses Not on filedocumented in this encounter Care Teams Moto Mix Operator Relationship Specialty Start Date End Date Brett Velásquez MD PCP - General Internal Medicine 04/21/16 01/25/22 Brett Velásquez MD PCP - General Internal Medicine 01/26/22 02/15/22 Wayne Jaimes [address] [place] [address] PCP - General Internal Medicine 02/16/22 Reilly Baker MD, PHD Surgeon Neurosurgery 01/20/22 Dafne Hilton MD [address] [place] [address] Specialist Cardiology 10/13/22 Desi Swenson NP [address] [place] [address] Cardiology 02/29/24 documented as of this encounter
--- OUTSIDE RECORDS SUMMARY | 2025-06-28 18:26 | XMS_ITS | Encounter Summary ---
Author Organization [facility] Prior to 05/12/2024 Address [address] [place] [address] Care Team Providers Care Cyanide Pot Tender Name Role Phone Reilly Baker MD, PHD Unavailable Unava Wayne Blackman Primary Care Provider [phone] Dafne Hilton MD Unavailable [phone] Desi Swenson NP Unavailable [phone] Reason for Visit * Reason Onset Date Comments Provider Call Back 08/17/2023 Encounter Details Date Type Department Care Team Description 08/17/2023 Telephone Gastroenterology - [address] [place] [id number] Kevin Oliva PA-C Provider Call Back [...] Date Type Specialty Care Team Description 04/29/2027 Data Specialist Report Abstract, Provider documented as of this encounter Visit Diagnoses Not on filedocumented in this encounter Care Teams Cyanide Pot Tender Relationship Specialty Start Date End Date Wayne Jaimes [address] [place] [address] PCP - General Internal Medicine 02/16/22 Reilly Baker MD, PHD Surgeon Neurosurgery 01/20/22 Dafne Hilton MD [address] [place] [address] Specialist Cardiology 10/13/22 Desi Swenson NP [address] [place] [address] Cardiology 02/29/24 documented as of this encounter
--- OUTSIDE RECORDS SUMMARY | 2025-06-28 18:26 | XMS_ITS | Encounter Summary ---
Author Organization [employer] [facility] Prior to 05/12/2024 Address [address] [place] [address] Care Team Providers Care Slicing Machine Feeder Name Role Phone Brett Velásquez MD Primary Care Provider Reilly Stewart MD, PHD Unavailable Unava ilBrett Bailon MD Primary Care Provider Wayne Dickson Primary Care Provider [phone] Dafne Hilton MD Unavailable [phone] Desi Swenson NP Unavailable [phone] Encounter Details Date Type Department Care Team Description 03/07/2019 [facility] Medical Records [address] [place] [address] Vladislav Antunez DO Social History Tobacco Use [...] Date Type Specialty Care Team Description 04/29/2027 Kettle Room Helper Report Abstract, Provider documented as of this encounter Visit Diagnoses Not on filedocumented in this encounter Care Teams Slicing Machine Feeder Relationship Specialty Start Date End Date Brett Velásquez MD PCP - General Internal Medicine 04/21/16 01/25/22 Brett Velásquez MD PCP - General Internal Medicine 01/26/22 02/15/22 Wayne Jaimes [address] [place] [address] PCP - General Internal Medicine 02/16/22 Reilly Baker MD, PHD Surgeon Neurosurgery 01/20/22 Dafne Hilton MD [address] [place] [address] Specialist Cardiology 10/13/22 Desi Swenson NP [address] [place] [address] Cardiology 02/29/24 documented as of this encounter
--- OUTSIDE RECORDS SUMMARY | 2025-06-28 18:26 | XMS_ITS | Encounter Summary ---
Author Organization [employer] [facility] Prior to 05/12/2024 Address [address] [place] [address] Care Team Providers Care Java Security Architect Name Role Phone Reilly Baker MD, PHD Unavailable Unava ilable Wayne Jaimes Primary Care Provider Dafne Hilton MD Unavailable [phone] Desi Swenson NP Unavailable Encounter Details Date Type Department Care Team Description 01/25/2024 SCAN Medical Records [address] [place] [address] Desi Swenson, ILDA [address] [facility] [place] [address] Social History Tobacco Use Types Packs/Day Years [...] Date Type Specialty Care Team Description 04/29/2027 Grinder Outside Diameter Report Abstract, Provider documented as of this encounter Visit Diagnoses Not on filedocumented in this encounter Care Teams Java Security Architect Relationship Specialty Start Date End Date Wayne Jaimes [address] [place] [address] PCP - General Internal Medicine 02/16/22 Reilly Baker MD, PHD Surgeon Neurosurgery 01/20/22 Dafne Hilton MD [address] [place] [address] Specialist Cardiology 10/13/22 Desi Swenson NP [address] [place] [address] Cardiology 02/29/24 documented as of this encounter
--- OUTSIDE RECORDS SUMMARY | 2025-06-28 18:26 | XMS_ITS | Encounter Summary ---
Author Organization [employer] [facility] Prior to 05/12/2024 Address [address] [place] [address] Care Team Providers Care Platinum Smith Name Role Phone Brett Velásquez MD Primary Care Provider Reilly Stewart MD, PHD Unavailable Unava ilBrett Bailon MD Primary Care Provider Wayne Dickson Primary Care Provider [phone] Dafne Hilton MD Unavailable [phone] Desi Swenson NP Unavailable [phone] Encounter Details Date Type Department Care Team Description 07/21/2019 Release of Information Medical Records [address] [place] [id number] Abstract, Provider Social History Tobacco Use Types [...] Specialty Care Team Description 04/29/2027 Director Of Placement Report Abstract, Provider documented as of this encounter Visit Diagnoses Not on filedocumented in this encounter Care Teams Platinum Smith Relationship Specialty Start Date End Date Brett Velásquez MD PCP - General Internal Medicine 04/21/16 01/25/22 Brett Velásquez MD PCP - General Internal Medicine 01/26/22 02/15/22 Wayne Jaimes [address] [place] [address] PCP - General Internal Medicine 02/16/22 Reilly Baker MD, PHD Surgeon Neurosurgery 01/20/22 Dafne Hilton MD [address] [place] [address] Specialist Cardiology 10/13/22 Desi Swenson NP [address] [place] [address] Cardiology 02/29/24 documented as of this encounter
--- OUTSIDE RECORDS SUMMARY | 2025-06-28 18:26 | XMS_ITS | Encounter Summary ---
Author Organization [employer] [facility] Prior to 05/12/2024 Address [address] [place] [address] Care Team Providers Care Rail Express Clerk Name Role Phone Brett Velásquez MD Primary Care Provider Keisha Luna MD Primary Care Provider [phone] Brett Velásquez MD Primary Care Provider Reilly Stewart MD, PHD Unavailable Unava ilable Brett Velásquez MD Primary Care Provider Wayne Dickson Primary Care Provider [phone] Dafne Hilton MD Unavailable [phone] Desi Swenson NP Unavailable [phone] Encounter Details Date Type Department Care Team Description 06/06/2014 Equal Opportunity Counselor Report Medical Records [address] [place] [address] Re[facility] [place] Social History Tobacco Use Types Packs/Day Years [...] Date Type Specialty Care Team Description 04/29/2027 Equal Opportunity Counselor Report Abstract, Provider documented as of this encounter Visit Diagnoses Not on filedocumented in this encounter Care Teams Rail Express Clerk Relationship Specialty Start Date End Date Brett Velásquez MD PCP - General Internal Medicine 10/29/11 06/19/15 Keisha Chavez MD [address] [place] [address] PCP - General Internal Medicine 06/20/15 04/20/16 Brett Velásquez MD PCP - General Internal Medicine 04/21/16 01/25/22 Brett Velásquez MD PCP - General Internal Medicine 01/26/22 02/15/22 Wayne Jaimes [address] [place] [address] PCP - General Internal Medicine 02/16/22 Reilly Baker MD, PHD [address] [place] [address] Surgeon Neurosurgery 01/20/22 Dafne Hilton MD [address] [place] [address] Specialist Cardiology 10/13/22 Desi Swenson NP [address] [place] [address] Cardiology 02/29/24 documented as of this encounter
--- OUTSIDE RECORDS SUMMARY | 2025-06-28 18:26 | XMS_ITS | Encounter Summary ---
Author Organization [employer] [facility] Prior to 05/12/2024 Address [address] [place] [address] Care Team Providers Care Fisher Weir Name Role Phone Reilly Baker MD, PHD Unavailable Unava ilable Wayne Jaimes Primary Care Provider [phone] Dafne Hilton MD Unavailable [phone] Desi Swenson NP Unavailable [phone] Encounter Details Date Type Department Care Team Description 05/11/2023 Risk Specialist Report Medical Records [address] [place] [address] Abstract, Provider Social History Tobacco Use Types [...] Type Specialty Care Team Description 04/29/2027 Risk Specialist Report Abstract, Provider documented as of this encounter Visit Diagnoses Not on filedocumented in this encounter Care Teams Fisher Weir Relationship Specialty Start Date End Date Wayne Jaimes [address] [place], [place] [id number] PCP - General Internal Medicine 02/16/22 Reilly Baker MD, PHD Surgeon Neurosurgery 01/20/22 Dafne Hilton MD [address] [place] [address] Specialist Cardiology 10/13/22 Desi Swenson NP [address] [place] [address] Cardiology 02/29/24 documented as of this encounter
--- OUTSIDE RECORDS SUMMARY | 2025-06-28 18:26 | XMS_ITS | Encounter Summary ---
Author Organization [facility] Prior to 05/12/2024 Address [address] [place] [address] Care Team Providers Care Patternmaker Metal Name Role Phone Brett Velásquez MD Primary Care Provider Reilly Stewart MD, PHD Unavailable UnaBrett Davis MD Primary Care Provider Wayne Dickson Primary Care Provider [phone] Dafne Hilton MD Unavailable [phone] Desi Swenson NP Unavailable [phone] Reason for Visit * Reason Onset Date Comments Prior Authorization 06/17/2021 Encounter Details Date Type Department Care Team Description 06/17/2021 Telephone [facility] [address] [place] [address] [place] [phone] Joo Meadows MD Prior Authorization Social History [...] Miscellaneous Notes * Telephone Encounter - Shelbie Correa - 06/17/2021 8:42 AM EST Sendy from [facility] called again to check on status of prior auth for Euflexxa injections. I told her that Samara sent a request to [employer] and is waiting on response. Sendy asked that I let Samara know she called to check on it and to please let her know when we receive approval. She can be reached at [phone] ext [phone]. documented in this encounter Plan of Treatment Upcoming Encounters Date Type Specialty Care Team Description 04/29/2027 Smasher Hand Report Abstract, Provider documented as of this encounter Visit Diagnoses Not on filedocumented in this encounter Care Teams Patternmaker Metal Relationship Specialty Start Date End Date Brett Velásquez MD PCP - General Internal Medicine 04/21/16 01/25/22 Brett Velásquez MD PCP - General Internal Medicine 01/26/22 02/15/22 Wayne Jaimes [address] [place] [address] PCP - General Internal Medicine 02/16/22 Reilly Baker MD, PHD Surgeon Neurosurgery 01/20/22 Dafne Hilton MD [address] [place] [address] Specialist Cardiology 10/13/22 Desi Swenson NP [address] [place] [address] Cardiology 02/29/24 documented as of this encounter
== END 2025-06-28 13:23 | disposition home or self-care (01) ==
LOC: HO.LNP 13:22
PROVIDERS: PCP Internal Medicine; Referring Provider Physician Assistant Medical
DX: R05.1 Acute cough (principal); R09.89 Other specified symptoms and signs involving the circulatory and respiratory systems
CPT/HCPCS: 71046; 87637

== ENCOUNTER 2025-07-11 13:30 | Outpatient (AMB) | payer OTHER, SELFPAY ==
--- OUTSIDE RECORDS SUMMARY | 2025-04-30 09:45 | XMS_ITS ---
Author Organization [facility] Address [address] [address] Care Team Providers Care Loss Control Engineer Name Role Phone Fiona DURHAM, Wayne Primary Care Provider JORGE L Burks Unavailable [phone] REASON FOR VISIT 3 month f/u Encounters Encounter Location Date Provider Diagnosis [facility] [address] [address] 04/30/2025 JORGE L LI Plan Of Treatment Next Appt Details Provider Name:JORGE L LI, 09/03/2025 02:45:00 PM, [address] [address], [place], [address], Provider Name:JORGE L LI, 09/05/2025 02:45:00 PM, [address] [address], [place], [address], Progress Notes * Mckinley LEWISOB:1955 ([age] yo M)Acc No.[id number]:04/30/2025 Progress Note Patient: Laina HERNANDEZ Provider: Lee Li DPM :1955 A ge:69 Y S ex:Male Date:04/30/2025 Address:[address] [place], [place] [id number] Pcp:Wayne Jaimes MD Subjective: * Chief Complaints: * 1 . 3 month f/u. * Medical History: Objective: * Vitals: Assessment: Plan: * Treatment: * Billing Information: * Visit Code: * Procedure Codes: * Electronic signature of LENCHO LI D.P.M on 07/11/2025 at 02:54 PM EST Sign off status: Pending * Provider: Lee Li DPM Date: Generated for Tatiana lema/Nilsa/Glo on: 1 02:54 PM EST
[2025-07-11 13:32] VITALS: BP 126/64; PULSE 57; BMI 24.3
--- NOTE | 2025-07-11 13:32 | MHC.OFFVIS ---
Vital Signs 07/11/25 13:32 Height 5 ft 6 in Weight 150 lb 5.684 oz BMI 24.3 BP 126/64 Blood Pressure Location Lt brachial Position Sitting Pulse 57 Pulse Source Monitor Intake Visit Reasons: Follow up Therapist Phys Required: Yes Therapist Phys Name: vidhya-Croatian Accompanied by: Self / Same As Patient Allergies No Known Allergies Allergy (Verified 07/11/25 13:35) Medication List - Last Reconciled 07/11/25 by Arnaldo Rodgers NP albuterol sulfate 90 mcg/actuation 2 puffs inhalation Q4H PRN amiodarone 200 mg PO BID aspirin 81 mg PO DAILY atorvastatin 80 mg PO BEDTIME diclofenac sodium 1% 1 g topical BID PRN efinaconazole 10% (Jublia) 1 appl topical DAILY PRN ezetimibe 10 mg PO DAILY famotidine 20 mg PO BID PRN fluticasone furoate-vilanterol 100-25 mcg/dose (Breo Ellipta) 1 ea inhalation DAILY furosemide (Lasix) 20 mg PO DAILY lidocaine 5% 1 - 3 patches topical DAILY PRN MDD 1 for 12 hours max lidocaine-prilocaine 2.5-2.5 % 1 g topical BID PRN linaclotide (Linzess) 145 mcg PO DAILY magnesium hydroxide 600 mg PO BID metoprolol succinate ER 25 mg PO DAILY mirabegron ER (Myrbetriq) 50 mg PO DAILY montelukast 10 mg PO BEDTIME nitroglycerin 0.4 mg sublingual Q5M PRN rabeprazole 20 mg PO DAILY PRN ticagrelor (Brilinta) 90 mg PO BID tramadol 50 mg PO QID PRN HPI Comments Details: This is a 69-year-old male patient coming in for a follow-up visit. Patient is Croatian speaking and therefore cyber intelligence analyst was used throughout the visit. Patient with a history of coronary artery disease with prior PCI to mid RCA in 2022, and LAD PCI in September of 2024. Patient then had chest discomfort and underwent CABG x2 on 04/11/2025. Patient after the procedure had some heart failure symptoms for which patient was put on Lasix. Today, patient reports that he has been having some palpitations with elevated heart rate in the random fashion but is otherwise denying any exertional shortness of breath, chest pain, dizziness, orthopnea, PND, leg edema, presyncope or syncope. Patient is reporting compliance with all his medications and states is compliant with his cardiac rehab and tolerating well. [facility] Medical History Exertional chest pain Abnormal stress test Chest pain Pseudoaneurysm Coronary artery disease involving coronary bypass graft Acute gouty arthritis Perianal dermatitis SOB (shortness of breath) on exertion Finger laceration with complication Encounter to establish care Trigger finger Thyroid nodule Surgical History Stented coronary artery S/P cardiac cath H/O colonoscopy History of esophagogastroduodenoscopy (EGD) Hx of cataract extraction History of thyroid surgery History of prostate surgery Family History Sister Arthritis Mother Heart disease Lung cancer Father Hypertension Sister Thyroid cancer Social History Household Members: Spouse Housing: Apartment Are you a primary respiratory care faculty to a significant other at home: No Do you presently have visiting nurse or other home services: No Alcohol intake: never Patient Tobacco Use Status: Never used Tobacco e-Cigarette/Vaping Use: Never Used Second Hand Smoke Exposure: No service: No Current occupational status: employed 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 Current occupational exposures/hazards: No Cognitive needs: No Hearing needs: No Vision needs: No Review of Systems Const Denies daytime sleepiness, Denies difficulty sleeping, Denies snoring, Denies stops breathing during sleep and Denies weakness Card Denies chest pain, Reports rapid heart rate, Denies irregular heart rhythm, Denies claudication, Denies leg edema, Denies lightheadedness, Reports palpitations, Denies dyspnea, Denies dyspnea on exertion, Denies orthopnea, Denies paroxysmal nocturnal dyspnea and Denies slow heart rate Resp Denies cough, Denies dyspnea, Denies dyspnea on exertion and Denies snoring GI Reports no additional complaints, Denies hematochezia, Denies change in stool character and Denies dyspepsia Musc Denies abnormal gait, Denies muscle weakness and Denies numbness Neuro Denies abnormal gait, Denies numbness and Denies weakness Endo Reports palpitations Physical Exam Vital Signs: Last Vital Signs Pulse 57 07/11/25 13:32 BP 126/64 07/11/25 13:32 BMI result Body Mass Index 24.3 Const General: cooperative, healthy appearing, comfortable and no acute distress Orientation/consciousness: patient oriented x3 HEENT Head: Yes normal to inspection Neck Neck: Yes normal visual inspection, Yes trachea midline and Yes supple Chest Chest palpation & inspection: normal inspection of the chest Resp Effort & Inspection: normal respiratory effort Auscultation: clear to auscultation bilaterally, no crackles, no rales, no rhonchi and no wheezes Cardio Jugular venous distension: no JVD Palpation: normal PMI Rate: regular rate Rhythm: regular rhythm Heart sounds: S1 normal heart sound present, S2 normal heart sound present, no click, no gallops, no murmurs and no rubs Peripheral pulses: Peripheral pulses 2+ throughout GI Inspection: Yes normal to inspection Palpation (GI): Soft to palpation Auscultation: normal bowel sounds Skin General skin exam: no rashes or lesions noted Neuro General: patient oriented x3 Extrem Other: Palpable and pulsating bulge on the right radial General: Yes normal to inspection, No no pedal edema and No calf tenderness Psych Appearance: grossly normal Mental Status: mental status grossly normal Speech and movement: Normal speech and movement present Office Procedures EKG Details: EKG today showed sinus bradycardia, rate 57 beats per minute, nonspecific STT wave, [place], [place]. [id number], Complete Assessment & Plan Assessment & Plan (1) Palpitation: Code(s): R00.2 - Palpitations Category: Medical Plan: EKG today is normal rhythm. Due to reports of palpitations, we will get a Holter study to evaluate for any potential arrhythmias. For note, during the hospitalization for CABG, patient was put on amiodarone for AFib prophylaxis which patient did not tolerate as he developed GI intolerance from this. (2) CAD (coronary artery disease): Code(s): I25.10 - Atherosclerotic heart disease of [place] coronary artery without angina pectoris Category: Medical Qualifiers: Coronary Disease-Associated Artery/Lesion type: [place] artery [place] vs. transplanted heart: [place] heart Associated angina: without angina Qualified Code(s): I25.10 - Atherosclerotic heart disease of [place] coronary artery without angina pectoris Plan: History of prior PCI to the RCA in 2022 and LAD in September 2024. Patient came back in March to the emergency room for ongoing chest discomfort and underwent a stress echocardiogram which was abnormal and therefore was transferred out to [facility] for cardiac catheterization where patient underwent CABG x2 (CRISTOBAL- LAD, SVG-R PLV) on 04/11/2025. After discharge patient had some volume overload and leg edema for which patient was put on low-dose diuretics. Continue with lifetime aspirin therapy. Continue Brilinta for an additional 3 months. Continue with statin and Zetia therapy with the LDL goal less than 60. Continue metoprolol and Lasix therapy. Clinically euvolemic. Discussed signs and symptoms of heart failure to watch for. We repeated an echo on 05/16/2025 that showed normal LV systolic function with the ejection fraction between 60-65% with grade 1 diastolic dysfunction, mild biatrial enlargement, mild aortic regurgitation, mild dilated ascending aorta at 3.7 cm. (3) S/P CABG (coronary artery bypass graft): Comment: CABG x2 (CRISTOBAL- LAD, SVG-R PLV) on 04/11/2025 Code(s): Z95.1 - Presence of aortocoronary bypass graft Category: Surgical Plan: As above. (4) S/P cardiac cath: Code(s): Z98.890 - Other specified postprocedural states Category: Surgical Plan: As above. (5) Hypertension: Code(s): I10 - Essential (primary) hypertension Category: Medical Qualifiers: Hypertension type: primary hypertension Qualified Code(s): I10 - Essential (primary) hypertension Plan: Blood pressure today is well-controlled. Continue current regimen with a blood pressure goal less than 130/80. Advised on low-salt diet. (6) Hyperlipidemia: Code(s): E78.5 - Hyperlipidemia, unspecified Category: Medical Plan: Most recent LDL at 33. Continue statin and Zetia therapy with an LDL goal less than 50. Advised on heart healthy diet, regular exercise, med compliance, and aggressive management of vascular risk factors. Follow up in 6 months. In the interim, patient will call the office with any concerns or change in symptoms. This note was generated using voice recognition software. While every effort has been made to ensure accuracy and proper vice president of product marketing, there may be occasional errors that could affect the content or meaning of the described symptoms. Orders: Orders ECG 3 day holter monitor Today R00.2 - Palpitations AMB EKG-In Office Today R00.2 - Palpitations Coding Level of Care Code Est Pt Level 4 (93705) Add On Problem Visit Only Diagnoses Palpitation R00.2 Coronary artery disease involving [place] coronary artery of [place] heart without angina pectoris I25.10 Coronary Disease-Associated Artery/Lesion type: [place] artery [place] vs. transplanted heart: [place] heart Associated angina: without angina S/P CABG (coronary artery bypass graft) Z95.1 S/P cardiac cath Z98.890 Primary hypertension I10 Hypertension type: primary hypertension Hyperlipidemia E78.5 CPT Codes EKG - CPT: [id number], Complete ([id number]) Time Spent (min) 32 Comment Time spent in reviewing the chart, test results, assessment, counseling and documentation.
--- OUTSIDE RECORDS SUMMARY | 2025-07-11 14:54 | XMS_ITS | Encounter Summary ---
Author Organization [employer] [facility] Prior to 05/12/2024 Address [address] [place] [address] Care Team Providers Care Business Relations Manager Name Role Phone Reilly Baker MD, PHD Unavailable Brett España MD Primary Care Provider Wayne Dickson Primary Care Provider [phone] Dafne Hilton MD Unavailable [phone] Desi Swenson NP Unavailable Encounter Details Date Type Department Care Team Description 01/26/2022 [facility] Only Adult Medicine [address] [address] Brett Velásquez MD Preoperative examination; Screening for [...] Type Specialty Care Team Description 04/29/2027 Safety Leader Report Abstract, Provider documented as of this encounter Results * BASIC METABOLIC PANEL (02/19/2022 1:21 PM EDT) GLOMERULAR FILTRATION RATE > 60 02/19/2022 5:28 PM EDT [facility] Comment: If patient is -Citizen Of [place], multiply result by 1.21 Chronic Kidney Disease: [...] Release to patient->Immediate Brett Velásquez MD LAB [facility] * CBC (AUTO DIFF PLATELET) (02/19/2022 1:21 PM EDT) Pathologist [facility] WHITE BLOOD COUNT 6.9 4.8 - 10.8 x10-3/uL 02/19/2022 4:32 PM EDT [facility] RED BLOOD COUNT 5.1 4.5 - 5.5 x10-6/uL 02/19/2022 4:32 PM EDT [facility] Hemoglobin 15.3 13.5 - 17.5 g/dL 02/19/2022 4:32 PM EDT [facility] Hematocrit 45.7 42 - 54 % 02/19/2022 4:32 PM EDT [facility] MEAN CORPUSCULAR VOLUME 89.1 79 - 98 fL 02/19/2022 4:32 PM EDT [facility] CORPUSCULAR HEMOGLOBIN 29.8 27 - 32 pg 02/19/2022 4:32 PM EDT [facility] MEAN CORPUSCULAR HGB CONC 33.5 32 - 37 g/dL 02/19/2022 4:32 PM ED[facility] RED CELL DISTRIBUTION WIDTH 11.8 11 - 15 % 02/19/2022 4:32 PM EDT [facility] PLT COUNT 221 130 - 400 x10-3/uL 02/19/2022 4:32 PM EDT [facility] [employer] MEAN PLATELET VOLUME 9.2 7 - 11 fL 02/19/2022 4:32 PM EDT [facility] NRBC % AUTO 0.0 <1 % 02/19/2022 4:32 PM EDT [facility] NEUTROPHILS % 66.7 % 02/19/2022 4:32 PM EDT [facility] LYMPH % 24.5 % 02/19/2022 4:32 PM EDT [facility] MONO % 7.8 % 02/19/2022 4:32 PM EDT [facility] EOS % 0.4 % 02/19/2022 4:32 PM EDT [facility] BASO % 0.3 % 02/19/2022 4:32 PM EDT [facility] IMMATURE GRANULOCYTES % 0.3 % 02/19/2022 4:32 PM EDT [facility] NRBC # AUTO 0.00 <0.1 x10-3/uL 02/19/2022 4:32 PM EDT [facility] NEUT # 4.62 1.5 - 7.0 x10-3/uL 02/19/2022 4:32 PM EDT [facility] LYMPH # 1.70 1 - 5.0 x10-3/uL [...] Brett Velásquez MD LAB Performing Organization Address City/State/[facility] Co de Phone Number [facility] documented in this encounter Visit Diagnoses Diagnosis Preoperative examination Preoperative examination, unspecified Screening for deficiency anemia Screening for other and unspecified deficiency anemia Isolated proteinuria with other morphologic lesion documented in this encounter Care Teams Business Relations Manager Relationship Specialty Start Date End Date Brett Velásquez MD PCP - General Internal Medicine 01/26/22 02/15/22 Wayne Jaimes [address] [place] [address] PCP - General Internal Medicine 02/16/22 Reilly Baker MD, PHD Surgeon Neurosurgery 01/20/22 Dafne Hilton MD [address] [place] [address] Specialist Cardiology 10/13/22 Desi Swenson NP [address] [place] [address] Cardiology 02/29/24 documented as of this encounter
--- OUTSIDE RECORDS SUMMARY | 2025-07-11 14:54 | XMS_ITS | Encounter Summary ---
Author Organization [facility] Prior to 05/12/2024 Address [address] [place] [address] Care Team Providers Care Dramatic Director Name Role Phone Brett Velásquez MD Primary Care Provider Reilly Stewart MD, PHD Unavailable Brett España MD Primary Care Provider Wayne Dickson Primary Care Provider [phone] Dafne Hilton MD Unavailable [phone] Desi Swenson NP Unavailable Encounter Details Date Type Department Care Team Description 01/24/2020 Pt. Non Urgent Medical Question Adult Medicine [address] [address] Olivia Foster PA-C [address] [place] [address] Social History Tobacco Use Types Packs/Day Years [...] Date Type Specialty Care Team Description 04/29/2027 Breastfeeding Peer Counselor Report Abstract, Provider documented as of this encounter Visit Diagnoses Not on filedocumented in this encounter Care Teams Dramatic Director Relationship Specialty Start Date End Date Brett Velásquez MD PCP - General Internal Medicine 04/21/16 01/25/22 Brett Velásquez MD PCP - General Internal Medicine 01/26/22 02/15/22 Wayne Jaimes [address] [place] [address] PCP - General Internal Medicine 02/16/22 Reilly Baker MD, PHD Surgeon Neurosurgery 01/20/22 Dafne Hilton MD [address] [place] [address] Specialist Cardiology 10/13/22 Desi Swenson NP [address] [place] [address] Cardiology 02/29/24 documented as of this encounter
--- OUTSIDE RECORDS SUMMARY | 2025-07-11 14:54 | XMS_ITS | Encounter Summary ---
Author Organization [employer] [facility] Prior to 05/12/2024 Address [address] [place] [address] Care Team Providers Care Lcac Operator Name Role Phone Brett Velásquez MD Primary Care Provider Reilly Stewart MD, PHD Unavailable UnaBrett Davis MD Primary Care Provider Wayne Dickson Primary Care Provider [phone] Dafne Hilton MD Unavailable [phone] Desi Swenson NP Unavailable [phone] Reason for Visit * Reason Onset Date Comments TEST RESULTS 11/06/2020 Encounter Details Date Type Department Care Team Description 11/06/2020 Telephone Adult Medicine [address] [address] Divya Ro PA [address] [place] [address] [phone] TEST RESULTS Social History Tobacco Use Types [...] to sending a message. Waiting on A1c. [employer] message has also been sent to patient. [...] Type Specialty Care Team Description 04/29/2027 Manager Trainee Report Abstract, Provider documented as of this encounter Visit Diagnoses Not on filedocumented in this encounter Care Teams Lcac Operator Relationship Specialty Start Date End Date Brett Velásquez MD PCP - General Internal Medicine 04/21/16 01/25/22 Brett Velásquez MD PCP - General Internal Medicine 01/26/22 02/15/22 Wayne Jaimes [address] [place] [address] PCP - General Internal Medicine 02/16/22 Reilly Baker MD, PHD Surgeon Neurosurgery 01/20/22 Dafne Hilton MD [address] [place] [address] Specialist Cardiology 10/13/22 Desi Swenson NP [address] [place] [address] Cardiology 02/29/24 documented as of this encounter
--- OUTSIDE RECORDS SUMMARY | 2025-07-11 14:54 | XMS_ITS | Encounter Summary ---
Author Organization [employer] [facility] Prior to 05/12/2024 Address [address] [place] [address] Care Team Providers Care Core Measures Abstractor Name Role Phone Brett Velásquez MD Primary Care Provider Reilly Stewart MD, PHD Unavailable Unava ilBrett Bailon MD Primary Care Provider Wayne Dickson Primary Care Provider [phone] Dafne Hilton MD Unavailable [phone] Desi Swenson NP Unavailable Encounter Details Date Type Department Care Team Description 03/11/2018 Release of Information Medical Records [address] [place] [id number] Abstract, Provider Social History Tobacco Use Types [...] Type Specialty Care Team Description 04/29/2027 Insurance Consultant Report Abstract, Provider documented as of this encounter Visit Diagnoses Not on filedocumented in this encounter Care Teams Core Measures Abstractor Relationship Specialty Start Date End Date Brett Velásquez MD PCP - General Internal Medicine 04/21/16 01/25/22 Brett Velásquez MD PCP - General Internal Medicine 01/26/22 02/15/22 Wayne Jaimes [address] [place] [address] PCP - General Internal Medicine 02/16/22 Reilly Baker MD, PHD Surgeon Neurosurgery 01/20/22 Dafne Hilton MD [address] [place] [address] Specialist Cardiology 10/13/22 Desi Swenson NP [address] [place] [address] Cardiology 02/29/24 documented as of this encounter
--- OUTSIDE RECORDS SUMMARY | 2025-07-11 14:54 | XMS_ITS | Encounter Summary ---
Author Organization [employer] [facility] Prior to 05/12/2024 Address [address] [place] [address] Care Team Providers Care Corporate Treasurer Name Role Phone Reilly Baker MD, PHD Unavailable Unava Wayne Blackman Primary Care Provider [phone] Dafne Hilton MD Unavailable [phone] Desi Swenson NP Unavailable [phone] Encounter Details Date Type Department Care Team Description 09/08/2022 Hospital Medical Records [address] [place] [id number] Social History Tobacco Use Types Packs/Day Years [...] Type Specialty Care Team Description 04/29/2027 Certified Surgical Technologist Report Abstract, Provider documented as of [...] on filedocumented in this encounter Care Teams Corporate Treasurer Relationship Specialty Start Date End Date Wayne Jaimes [address] [place] [address] PCP - General Internal Medicine 02/16/22 Reilly Baker MD, PHD Surgeon Neurosurgery 01/20/22 Dafne Hilton MD [address] [place] [address] Specialist Cardiology 10/13/22 Desi Swenson NP [address] [place] [address] Cardiology 02/29/24 documented as of this encounter
--- OUTSIDE RECORDS SUMMARY | 2025-07-11 14:54 | XMS_ITS | Encounter Summary ---
Author Organization [employer] [facility] Prior to 05/12/2024 Address [address] [place] [address] Care Team Providers Care Truck Supervisor Name Role Phone Reilly Baker MD, PHD Unavailable Unava ilable Wayne Jaimes Primary Care Provider [phone] Dafne Hilton MD Unavailable [phone] Desi Swenson NP Unavailable [phone] Encounter Details Date Type Department Care Team Description 02/18/2022 Hospital Medical Records [address] [place] [address] Yuliana Auguste MD [address] [place] [address] Social History Tobacco Use Types Packs/Day Years [...] Date Type Specialty Care Team Description 04/29/2027 Palliative Care Specialist Report Abstract, Provider documented as of this encounter Visit Diagnoses Not on filedocumented in this encounter Care Teams Truck Supervisor Relationship Specialty Start Date End Date Wayne JaimesUsama [address] [place] [address] PCP - General Internal Medicine 02/16/22 Reilly Baker MD, PHD Surgeon Neurosurgery 01/20/22 Dafne Hilton MD [address] [place] [address] Specialist Cardiology 10/13/22 Desi Swenson NP [address] [place] [address] Cardiology 02/29/24 documented as of this encounter
--- OUTSIDE RECORDS SUMMARY | 2025-07-11 14:54 | XMS_ITS | Encounter Summary ---
Author Organization [facility] Prior to 05/12/2024 Address [address] [place] [address] Care Team Providers Care Melter Supervisor Name Role Phone Reilly Baker MD, PHD Unavailable Unava Wayne Blackman Primary Care Provider Dafne Hilton MD Unavailable [phone] Desi Swenson NP Unavailable [phone] Encounter Details Date Type Department Care Team Description 09/14/2022 Refill Nephrology - [place] [address] [place] [address] Eduard Mccormick MD [address] [place] [address] Social History Tobacco Use Types Packs/Day Years [...] Date Type Specialty Care Team Description 04/29/2027 Teletype Operator Report Abstract, Provider documented as of this encounter Visit Diagnoses Not on filedocumented in this encounter Care Teams Melter Supervisor Relationship Specialty Start Date End Date Jose M Jaimesgil Dowell [address] [place] [address] PCP - General Internal Medicine 02/16/22 Reilly Baker MD, PHD Surgeon Neurosurgery 01/20/22 Dafne Hilton MD [address] [place] [address] Specialist Cardiology 10/13/22 Desi Swenson NP [address] [place] [address] Cardiology 02/29/24 documented as of this encounter
--- OUTSIDE RECORDS SUMMARY | 2025-07-11 14:54 | XMS_ITS | Encounter Summary ---
Author Organization [employer] [facility] Prior to 05/12/2024 Address [address] [place] [address] Care Team Providers Care Senior Director Marketing Name Role Phone Reilly Baker MD, PHD Unavailable Unava Wayne Blackman Primary Care Provider [phone] Dafne Hilton MD Unavailable [phone] Desi Swenson NP Unavailable [phone] Encounter Details Date Type Department Care Team Description 02/23/2022 Orders Only Medical Records [address] [place] [address] Yuliana Auguste MD [address] [place] [address] Social History Tobacco Use Types Packs/Day Years [...] as possible. You may also use an [id number]-[id number] acid reducing agent such as Pepcid, Tums, omeprazole etc. when necessary.I would like to personally thank you for allowing us to take care of you. Please don't hesitate to call us for any questions or concerns. Regards, Vivek Auguste MD Board Certified Gastroenterology and Internal Medicine Transplant Hepatology [facility] documented in this encounter Plan of Treatment Upcoming Encounters Date Type Specialty Care Team Description 04/29/2027 Slotter Operator Helper Report Abstract, Provider documented as of this encounter Procedures Procedure Name Priority Date/Time Associated Diagnosis Comments OUTSIDE PATHOLOGY Routine 02/18/2022 documented in this encounter Results * OUTSIDE PATHOLOGY (02/18/2022) Yuliana Auguste MD OUTSIDE LAB documented in this encounter Visit Diagnoses Not on filedocumented in this encounter Care Teams Senior Director Marketing Relationship Specialty Start Date End Date Wayne JaimesUsama [address] [place] [address] PCP - General Internal Medicine 02/16/22 Reilly Baker MD, PHD Surgeon Neurosurgery 01/20/22 Dafne Hilton MD [address] [place] [address] Specialist Cardiology 10/13/22 Desi Swenson NP [address] [place] [address] Cardiology 02/29/24 documented as of this encounter
--- OUTSIDE RECORDS SUMMARY | 2025-07-11 14:54 | XMS_ITS | Encounter Summary ---
Author Organization [facility] Prior to 05/12/2024 Address [address] [place] [address] Care Team Providers Care Hot Dip Tinning Supervisor Name Role Phone Brett Velásquez MD Primary Care Provider Keisha Luna MD Primary Care Provider [phone] Brett Velásquez MD Primary Care Provider Reilly Stewart MD, PHD Unavailable Unava ilBrett Bailon MD Primary Care Provider Wayne Dickson Primary Care Provider [phone] Dafne Hilton MD Unavailable [phone] Desi Swenson NP Unavailable [phone] Encounter Details Date Type Department Care Team Description 03/27/2015 Electronics System Mechanic Report Medical Records [address] [place] [address] Vitor Mclean MD [address] [place] [phone] Social History Tobacco Use Types Packs/Day Years [...] Date Type Specialty Care Team Description 04/29/2027 Electronics System Mechanic Report Abstract, Provider documented as of this encounter Visit Diagnoses Not on filedocumented in this encounter Care Teams Hot Dip Tinning Supervisor Relationship Specialty Start Date End Date Brett Velásquez MD PCP - General Internal Medicine 10/29/11 06/19/15 Keisha Chavez MD [address] [place] [address] PCP - General Internal Medicine 06/20/15 04/20/16 Brett Velásquez MD PCP - General Internal Medicine 04/21/16 01/25/22 Brett Velásquez MD PCP - General Internal Medicine 01/26/22 02/15/22 Wayne Jaimes [address] [place] [address] PCP - General Internal Medicine 02/16/22 Reilly Baker MD, PHD [address] [place] [address] Surgeon Neurosurgery 01/20/22 Dafne Hilton MD [address] [place] [address] Specialist Cardiology 10/13/22 Desi Swenson NP [address] [place] [address] Cardiology 02/29/24 documented as of this encounter
--- OUTSIDE RECORDS SUMMARY | 2025-07-11 14:54 | XMS_ITS | Encounter Summary ---
Author Organization [facility] Prior to 05/12/2024 Address [address] [place] [address] Care Team Providers Care Freight Rate Analyst Name Role Phone Keisha Chavez MD Primary Care Provider [phone] Brett Velásquez MD Primary Care Provider Reilly Stewart MD, PHD Unavailable Unava nyBrett Bailon MD Primary Care Provider Wayne Dickson Primary Care Provider [phone] Dafne Hilton MD Unavailable [phone] Desi Swenson NP Unavailable [phone] Encounter Details Date Type Department Care Team Description 12/25/2015 Orders Only Nephrology - [place] [address] [place] [address] Eduard Mccormick MD [address] [place] [address] Social History Tobacco Use Types Packs/Day Years [...] Specialty Care Team Description 04/29/2027 Director Of Rehabilitation And Wellness Report Abstract, Provider documented as of this encounter Results * (ABNORMAL) MICROALBUMIN/CREATININE, URINE (12/25/2015 9:24 AM EDT) CREAT,RANDOM URINE 161 mg/dL 12/25/2015 11:13 AM EDT [facility] MICROALBUMIN, RANDOM 111.7(H) 0.0 - 29.0 mg/L 12/25/2015 11:13 AM EDT [facility] MICROALB/CRE RATIO RANDOM 69.3(H) <30.0 mg/g 12/25/2015 11:13 AM EDT [facility] 12/25/2015 9:24 AM EDT 12/25/2015 9:25 AM EDT Eduard Mccormick MD LAB Performing Organization Address [facility] de Phone Number [address] * 25 HYDROXY INCLUDES FRACTIONS IF PERFORMED (12/25/2015 9:24 AM EDT) 25-HYDROXY VITAMIN D TOTAL 30 30 - 80 ng/ml 12/25/2015 3:35 PM EDT [facility] Comment: Vitamin D Reference Ranges Deficiency: <20 ng/mL Insufficiency: 20-29 ng/mL Optimal: 30-80 ng/mL High: >80 ng/mL 12/25/2015 9:24 AM EDT 12/25/2015 9:25 AM EDT Eduard Mccormick MD LAB Performing Organization Address [facility] de Phone Number [address] * CALCIUM,TOTAL (12/25/2015 9:24 AM EDT) CALCIUM 9.2 8.5 - 10.5 mg/dL 12/25/2015 10:52 AM EDT [facility] 12/25/2015 9:24 AM EDT 12/25/2015 9:25 AM EDT Eduard Mccormick MD LAB Performing Organization Address City/[facility]/ZIP Co de Phone Number [address] * ELECTROLYTE PANEL (12/25/2015 9:24 AM EDT) Sodium 142 133 - 145 mEq/L 12/25/2015 10:52 AM EDT [facility] Potassium 4.5 3.5 - 5.5 mEq/L 12/25/2015 10:52 AM EDT [facility] Chloride 103 96 - 108 mEq/L 12/25/2015 10:52 AM EDT [facility] CO2 27.9 21.0 - 32.0 mEq/L 12/25/2015 10:52 AM EDT [facility] 12/25/2015 9:24 AM EDT 12/25/2015 9:25 AM EDT Eduard Mccormick MD LAB Performing Organization Address [facility] Co de Phone Number [address] * CREATININE, BLOOD ASSAY (12/25/2015 9:24 AM EDT) CREAT 1.0 0.7 - 1.5 mg/dL 12/25/2015 10:52 AM T [facility] GFR > 60 >60 12/25/2015 10:52 AM T [facility] Comment: If patient is -Danish, multiply result by 1.21 Chronic Kidney Disease: < 60 ml/min/1.73 square meters Kidney Failure: < 15 ml/min/1.73 square meters 12/25/2015 9:24 AM EDT 12/25/2015 9:25 AM EDT Eduard Mccormick MD LAB Performing Organization Address [facility] Co de Phone Number [address] * BLOOD UREA NITROGEN (BUN) (12/25/2015 9:24 AM EDT) BUN 17 5 - 25 mg/dL 12/25/2015 10:52 AM EDT [facility] 12/25/2015 9:24 AM EDT 12/25/2015 9:25 AM EDT Eduard Mccormick MD LAB [facility] [address] [place] [address] documented in this encounter Visit Diagnoses Not on filedocumented in this encounter Care Teams Freight Rate Analyst Relationship Specialty Start Date End Date Keisha Chavez MD [address] [place] [address] PCP - General Internal Medicine 06/20/15 04/20/16 Brett Velásquez MD [address] [place] [address] PCP - General Internal Medicine 04/21/16 01/25/22 Brett Velásquez MD [address] [place], [place] [address] PCP - General Internal Medicine 01/26/22 02/15/22 Wayne Jaimes [address] [place] [address] PCP - General Internal Medicine 02/16/22 Reilly Baker MD, PHD [address] [place] [address] Surgeon Neurosurgery 01/20/22 Dafne Hilton MD [address] [place] [address] Specialist Cardiology 10/13/22 Desi Swenson NP [address] [place] [address] Cardiology 02/29/24 documented as of this encounter
--- OUTSIDE RECORDS SUMMARY | 2025-07-11 14:54 | XMS_ITS | Encounter Summary ---
Author Organization [facility] Prior to 05/12/2024 Address [address] [place] [address] Care Team Providers Care Communications Tech Name Role Phone Reilly Baker MD, PHD Unavailable Unava Wayne Blackman Primary Care Provider [phone] Dafne Hilton MD Unavailable [phone] Desi Swenson NP Unavailable [phone] Encounter Details Date Type Department Care Team Description 04/15/2022 SCAN [facility] [address] [address] Ena Whipple, PA-C [address] [address] Social History Tobacco Use Types Packs/Day Years [...] Date Type Specialty Care Team Description 04/29/2027 Java Web Services Developer Report Abstract, Provider documented as of this encounter Visit Diagnoses Not on filedocumented in this encounter Care Teams Communications Tech Relationship Specialty Start Date End Date aWyne Jaimes [address] [place] [address] PCP - General Internal Medicine 02/16/22 Reilly Baker MD, PHD Surgeon Neurosurgery 01/20/22 Dafne Hilton MD [address] [place] [address] Specialist Cardiology 10/13/22 Desi Swenson NP [address] [place], [place] [address] Cardiology 02/29/24 documented as of this encounter
--- OUTSIDE RECORDS SUMMARY | 2025-07-11 14:54 | XMS_ITS | Encounter Summary ---
Author Organization [employer] [facility] Prior to 05/12/2024 Address [address] [place] [address] Care Team Providers Care Electric Appliance Installer Name Role Phone Brett Velásquez MD Primary Care Provider Reilly Stewart MD, PHD Unavailable Unava ilBrett Bailon MD Primary Care Provider Wayne Dickson Primary Care Provider [phone] Dafne Hilton MD Unavailable [phone] Desi Swenson NP Unavailable [phone] Encounter Details Date Type Department Care Team Description 12/15/2019 Newspaper Reporter Report Medical Records [address] [place] [address] Vipin Cherry Social History Tobacco Use Types [...] Date Type Specialty Care Team Description 04/29/2027 Newspaper Reporter Report Abstract, Provider documented as of this encounter Visit Diagnoses Not on filedocumented in this encounter Care Teams Electric Appliance Installer Relationship Specialty Start Date End Date Brett Velásquez MD PCP - General Internal Medicine 04/21/16 01/25/22 Brett Velásquez MD PCP - General Internal Medicine 01/26/22 02/15/22 Wayne Jaimes [address] [place] [address] PCP - General Internal Medicine 02/16/22 Reilly Baker MD, PHD Surgeon Neurosurgery 01/20/22 Dafne Hilton MD [address] [place] [address] Specialist Cardiology 10/13/22 Desi Swenson NP [address] [place] [address] Cardiology 02/29/24 documented as of this encounter
--- OUTSIDE RECORDS SUMMARY | 2025-07-11 14:54 | XMS_ITS | Encounter Summary ---
Author Organization [employer] [facility] Prior to 05/12/2024 Address [address] [place] [address] Care Team Providers Care Folded Towel Machine Operator Name Role Phone Brett Velásquez MD Primary Care Provider Keisha Luna MD Primary Care Provider [phone] Brett Velásquez MD Primary Care Provider Reilly Stewart MD, PHD Unavailable Uname ilable Brett Velásquez MD Primary Care Provider Wayne Dickson Primary Care Provider [phone] Dafne Hilton MD Unavailable [phone] Desi Swenson NP Unavailable [phone] Encounter Details Date Type Department Care Team Description 10/11/2012 Skip Tracer Report Medical Records [address] [place] [address] Kareem Grier PA-C Social History Tobacco Use [...] Date Type Specialty Care Team Description 04/29/2027 Skip Tracer Report Abstract, Provider documented as of this encounter Visit Diagnoses Not on filedocumented in this encounter Care Teams Folded Towel Machine Operator Relationship Specialty Start Date End Date Brett Velásquez MD PCP - General Internal Medicine 10/29/11 06/19/15 Keisha Chavez MD [address] [place] [address] PCP - General Internal Medicine 06/20/15 04/20/16 Brett Velásquez MD PCP - General Internal Medicine 04/21/16 01/25/22 Brett Velásquez MD PCP - General Internal Medicine 01/26/22 02/15/22 Wayne Jaimes [address] [place] [address] PCP - General Internal Medicine 02/16/22 Reilly Baker MD, PHD [address] [place] [address] Surgeon Neurosurgery 01/20/22 Dafne Hilton MD [address] [place] [address] Specialist Cardiology 10/13/22 Desi Swenson NP [address] [place] [address] Cardiology 02/29/24 documented as of this encounter
--- OUTSIDE RECORDS SUMMARY | 2025-07-11 14:54 | XMS_ITS | Encounter Summary ---
Author Organization [facility] Prior to 05/12/2024 Address [address] [place] [address] Care Team Providers Care Auto Service Representative Name Role Phone Brett Velásquez MD Primary Care Provider Reilly Stewart MD, PHD Unavailable Brett España MD Primary Care Provider Wayne Dickson Primary Care Provider Dafne Hilton MD Unavailable [phone] Desi Swenson NP Unavailable [phone] Encounter Details Date Type Department Care Team Description 11/27/2019 Refill Nephrology [facility] [address] [place] [address] Eduard Mccormick MD [address] [place] [address] Social History Tobacco Use Types Packs/Day Years [...] Date Type Specialty Care Team Description 04/29/2027 Cat Dog Or Other Pet Groomer Report Abstract, Provider documented as of this encounter Visit Diagnoses Not on filedocumented in this encounter Care Teams Auto Service Representative Relationship Specialty Start Date End Date Brett Velásquez MD PCP - General Internal Medicine 04/21/16 01/25/22 Brett Velásquez MD PCP - General Internal Medicine 01/26/22 02/15/22 Wayne Jaimes [address] [place] [address] PCP - General Internal Medicine 02/16/22 Reilly Baker MD, PHD Surgeon Neurosurgery 01/20/22 Dafne Hilton MD [address] [place] [address] Specialist Cardiology 10/13/22 Desi Swenson NP [address] [place] [address] Cardiology 02/29/24 documented as of this encounter
--- OUTSIDE RECORDS SUMMARY | 2025-07-11 14:54 | XMS_ITS | Encounter Summary ---
Author Organization [facility] Prior to 05/12/2024 Address [address] [place] [address] Care Team Providers Care Machine Buffer Name Role Phone Brett Velásquez MD Primary Care Provider Reilly Stewart MD, PHD Unavailable Unava ilBrett Bailon MD Primary Care Provider Wayne Dickson Primary Care Provider [phone] Dafne Hilton MD Unavailable [phone] Desi Swenson NP Unavailable [phone] Encounter Details Date Type Department Care Team Description 04/29/2017 Professor Of Astronomy Report Medical Records [address] [place] [address] Abstract, Provider Social History Tobacco Use Types [...] Date Type Specialty Care Team Description 04/29/2027 Professor Of Astronomy Report Abstract, Provider documented as of this encounter Visit Diagnoses Not on filedocumented in this encounter Care Teams Machine Buffer Relationship Specialty Start Date End Date Brett Velásquez MD PCP - General Internal Medicine 04/21/16 01/25/22 Brett Velásquez MD PCP - General Internal Medicine 01/26/22 02/15/22 Wayne Jaimes [address] [place] [address] PCP - General Internal Medicine 02/16/22 Reilly Baker MD, PHD Surgeon Neurosurgery 01/20/22 Dafne Hilton MD [address] [place] [address] Specialist Cardiology 10/13/22 Desi Swenson NP [address] [place] [address] Cardiology 02/29/24 documented as of this encounter
--- OUTSIDE RECORDS SUMMARY | 2025-07-11 14:54 | XMS_ITS | Encounter Summary ---
Author Organization [facility] Prior to 05/12/2024 Address [address] [place] [address] Care Team Providers Care Manager Package Name Role Phone Brett Velásquez MD Primary Care Provider Keisha Luna MD Primary Care Provider [phone] Brett Velásquez MD Primary Care Provider Reilly Stewart MD, PHD Unavailable Unava ilable Brett Velásquez MD Primary Care Provider Wayne Dickson Primary Care Provider [phone] Dafne Hilton MD Unavailable [phone] Desi Swenson NP Unavailable [phone] Encounter Details Date Type Department Care Team Description 09/26/2012 Enterprise Manager Report Medical Records [address] [place] [address] Shaquille Chandra Social History Tobacco Use Types [...] Date Type Specialty Care Team Description 04/29/2027 Enterprise Manager Report Abstract, Provider documented as of this encounter Visit Diagnoses Not on filedocumented in this encounter Care Teams Manager Package Relationship Specialty Start Date End Date Brett Velásquez MD PCP - General Internal Medicine 10/29/11 06/19/15 Keisha Chavez MD [address] [place] [address] PCP - General Internal Medicine 06/20/15 04/20/16 Brett Velásquez MD PCP - General Internal Medicine 04/21/16 01/25/22 Brett Velásquez MD PCP - General Internal Medicine 01/26/22 02/15/22 Wayne Jaimes [address] [place] [address] PCP - General Internal Medicine 02/16/22 Reilly Baker MD, PHD [address] [place] [address] Surgeon Neurosurgery 01/20/22 Dafne Hilton MD [address] [place] [address] Specialist Cardiology 10/13/22 Desi Swenson NP [address] [place] [address] Cardiology 02/29/24 documented as of this encounter
--- OUTSIDE RECORDS SUMMARY | 2025-07-11 14:54 | XMS_ITS | Encounter Summary ---
Author Organization [facility] Prior to 05/12/2024 Address [address] [place] [address] Care Team Providers Care Dip Tube Assembler Machine Name Role Phone Brett Velásquez MD Primary Care Provider Reilly Stewart MD, PHD Unavailable Unava ilBrett Bailon MD Primary Care Provider Wayne Dickson Primary Care Provider [phone] Dafne Hilton MD Unavailable [phone] Desi Swenson NP Unavailable [phone] Encounter Details Date Type Department Care Team Description 01/15/2020 [facility] Medical Records [address] [place] [address] [facility] Social History Tobacco Use Types Packs/Day Years [...] Type Specialty Care Team Description 04/29/2027 Data Examination Clerk Report Abstract, Provider documented as of this encounter Visit Diagnoses Not on filedocumented in this encounter Care Teams Dip Tube Assembler Machine Relationship Specialty Start Date End Date Brett Velásquez MD PCP - General Internal Medicine 04/21/16 01/25/22 Brett Velásquez MD PCP - General Internal Medicine 01/26/22 02/15/22 Wayne Jaimes [address] [place] [address] PCP - General Internal Medicine 02/16/22 Reilly Baker MD, PHD Surgeon Neurosurgery 01/20/22 Dafne Hilton MD [address] [place] [address] Specialist Cardiology 10/13/22 Desi Swenson NP [address] [place] [address] Cardiology 02/29/24 documented as of this encounter
--- OUTSIDE RECORDS SUMMARY | 2025-07-11 14:54 | XMS_ITS | Encounter Summary ---
Author Organization [facility] Prior to 05/12/2024 Address [address] [place] [address] Care Team Providers Care Lead Software Architect Name Role Phone Reilly Baker MD, PHD Unavailable Unava Wayne Blackman Primary Care Provider [phone] Dafne Hilton MD Unavailable [phone] Desi Swenson NP Unavailable Encounter Details Date Type Department Care Team Description 04/27/2022 SCAN [facility] [address] [address] Ena Whipple, PA-C [address] [address] Social History Tobacco Use Types Packs/Day Years [...] Type Specialty Care Team Description 04/29/2027 Electric Motors Salesperson Report Abstract, Provider documented as of this encounter Visit Diagnoses Not on filedocumented in this encounter Care Teams Lead Software Architect Relationship Specialty Start Date End Date Wayne Jaimes [address] [place] [address] PCP - General Internal Medicine 02/16/22 Reilly Baker MD, PHD Surgeon Neurosurgery 01/20/22 Dafne Hilton MD [address] [place] [address] Specialist Cardiology 10/13/22 Desi Swenson NP [address] [place], [place] [address] Cardiology 02/29/24 documented as of this encounter
--- OUTSIDE RECORDS SUMMARY | 2025-07-11 14:54 | XMS_ITS | Encounter Summary ---
Author Organization [facility] Address [address] [place] [address] 7 [place] [address] Care Team Providers Care Rooms Director Name Role Phone Unavailable Primary Care Provider Unavailabl e Encounter Details Date Type Department Care Team (Latest Contact Info) Description 01/23/2022 Abstract [facility] CONVERSIONS Dental, Provider, DDS Social History Tobacco [...]
--- OUTSIDE RECORDS SUMMARY | 2025-07-11 14:54 | XMS_ITS | Encounter Summary ---
Author Organization [facility] Prior to 05/12/2024 Address [address] [place] [address] Care Team Providers Care Belt Builder Helper Name Role Phone Brett Velásquez MD Primary Care Provider Reilly Stewart MD, PHD Unavailable Unava ilBrett Bailon MD Primary Care Provider Wayne Dickson Primary Care Provider [phone] Dafne Hilton MD Unavailable [phone] Desi Swenson NP Unavailable [phone] Encounter Details Date Type Department Care Team Description 02/20/2020 [facility] Medical Records [address] [place] [address] Aleksandar Huggins MD Social History Tobacco Use [...] Type Specialty Care Team Description 04/29/2027 Production Broacher Report Abstract, Provider documented as of this encounter Visit Diagnoses Not on filedocumented in this encounter Care Teams Belt Builder Helper Relationship Specialty Start Date End Date Brett Velásquez MD PCP - General Internal Medicine 04/21/16 01/25/22 Brett Velásquez MD PCP - General Internal Medicine 01/26/22 02/15/22 Wayne Jaimes [address] [place] [address] PCP - General Internal Medicine 02/16/22 Reilly Baker MD, PHD Surgeon Neurosurgery 01/20/22 Dafne Hilton MD [address] [place] [address] Specialist Cardiology 10/13/22 Desi Swenson NP [address] [place] [address] Cardiology 02/29/24 documented as of this encounter
--- OUTSIDE RECORDS SUMMARY | 2025-07-11 14:54 | XMS_ITS | Encounter Summary ---
Author Organization [facility] Prior to 05/12/2024 Address [address] [place] [address] Care Team Providers Care Machine Former Name Role Phone Keisha Chavez MD Primary Care Provider [phone] Brett Velásquez MD Primary Care Provider Reilly Stewart MD, PHD Unavailable Unaca ilBrett Bailon MD Primary Care Provider Wayne Dickson Primary Care Provider [phone] Dafne Hilton MD Unavailable [phone] Desi Swenson NP Unavailable [phone] Encounter Details Date Type Department Care Team Description 11/05/2015 Release of Information Medical Records [address] [place] [address] Abstract, Provider Social History Tobacco Use Types [...] Date Type Specialty Care Team Description 04/29/2027 Creative Producer Report Abstract, Provider documented as of this encounter Visit Diagnoses Not on filedocumented in this encounter Care Teams Machine Former Relationship Specialty Start Date End Date Keisha Chavez MD [address] [place] [address] PCP - General Internal Medicine 06/20/15 04/20/16 Brett Velásquez MD [address] [place] [address] PCP - General Internal Medicine 04/21/16 01/25/22 Brett Velásquez MD [address] [place] [address] PCP - General Internal Medicine 01/26/22 02/15/22 Wayne Jaimes [address] [place] [address] PCP - General Internal Medicine 02/16/22 Reilly Baker MD, PHD [address] [place] [address] Surgeon Neurosurgery 01/20/22 Dafne Hilton MD [address] [place] [address] Specialist Cardiology 10/13/22 Desi Swenson NP [address] [place] [address] Cardiology 02/29/24 documented as of this encounter
--- OUTSIDE RECORDS SUMMARY | 2025-07-11 14:54 | XMS_ITS | Encounter Summary ---
Author Organization [employer] [facility] Prior to 05/12/2024 Address [address] [place] [address] Care Team Providers Care Software Engineer Name Role Phone Brett Velásquez MD Primary Care Provider Keisha Luna MD Primary Care Provider [phone] Brett Velásquez MD Primary Care Provider Reilly Stewart MD, PHD Unavailable [facility] Brett Vel[facility]quez MD Primary Care Provider Wayne Dickson Primary Care Provider [phone] Dafne Hilton MD Unavailable [phone] Desi Swenson NP Unavailable [phone] Encounter Details Date Type Department Care Team Description 02/19/2012 Blindstitch Hemmer Report Medical Records [address] [place] [address] Shaquille Chandra Social History Tobacco Use Types [...] Date Type Specialty Care Team Description 04/29/2027 Blindstitch Hemmer Report Abstract, Provider documented as of this encounter Visit Diagnoses Not on filedocumented in this encounter Care Teams Software Engineer Relationship Specialty Start Date End Date Brett Velásquez MD PCP - General Internal Medicine 10/29/11 06/19/15 Keisha Chavez MD [address] [place] [address] PCP - General Internal Medicine 06/20/15 04/20/16 Brett Velásquez MD PCP - General Internal Medicine 04/21/16 01/25/22 Brett Velásquez MD PCP - General Internal Medicine 01/26/22 02/15/22 Wayne Jaimes [address] [place] [address] PCP - General Internal Medicine 02/16/22 Reilly Baker MD, PHD [address] [place] [address] Surgeon Neurosurgery 01/20/22 Dafne Hilton MD [address] [place] [address] Specialist Cardiology 10/13/22 Desi Swenson NP [address] [place] [address] Cardiology 02/29/24 documented as of this encounter
--- OUTSIDE RECORDS SUMMARY | 2025-07-11 14:54 | XMS_ITS | Clinical Summary ---
Author Organization [employer] Address [address] [place] [address] 7 [place] [address] Care Team Providers Care Window Unit Air Conditioning Mechanic Name Role Phone Unavailable Primary Care [...] of 2) 11/18/2003 COVID-19 Vaccine ( - 2024-2 6 season) 2025 Influenza Vaccine (#1) 2025 RSV [...]
--- OUTSIDE RECORDS SUMMARY | 2025-07-11 14:54 | XMS_ITS | Encounter Summary ---
Author Organization [facility] Prior to 05/12/2024 Address [address] [place] [address] Care Team Providers Care Airbrush Artist Name Role Phone Reilly Baker MD, PHD Unavailable Unava ilWayne Osborne Primary Care Provider [phone] Dafne Hilton MD Unavailable [phone] Desi Swenson NP Unavailable Encounter Details Date Type Department Care Team Description 04/08/2022 Pt. Non Urgent Medical Question Adult Medicine [address] [address] Wayne Jaimes [address] [place] [address] Social History Tobacco Use Types Packs/Day Years [...] Date Type Specialty Care Team Description 04/29/2027 Batch Still Operator Report Abstract, Provider documented as of this encounter Visit Diagnoses Not on filedocumented in this encounter Care Teams Airbrush Artist Relationship Specialty Start Date End Date Wayne Jaimes [address] [place] [address] PCP - General Internal Medicine 02/16/22 Reilly Baker MD, PHD Surgeon Neurosurgery 01/20/22 Dafne Hilton MD [address] [place] [address] Specialist Cardiology 10/13/22 Desi Swenson NP [address] [place] [address] Cardiology 02/29/24 documented as of this encounter
--- OUTSIDE RECORDS SUMMARY | 2025-07-11 14:54 | XMS_ITS | Encounter Summary ---
Author Organization [facility] Prior to 05/12/2024 Address [address] [place] [address] Care Team Providers Care Electronic Intelligence Officer Name Role Phone Reilly Baker MD, PHD Unavailable Unava Wayne Blackman Primary Care Provider [phone] Dafne Hilton MD Unavailable [phone] Desi Swenson NP Unavailable [phone] Reason for Visit * Reason Onset Date Comments Medication 09/14/2022 Changes, fyi to Dr Mccormick Encounter Details Date Type Department Care Team Description 09/14/2022 Telephone Nephrology - [address] [id number] Eduard Mccormick MD [address] [place] [address] [id number] Medication (Changes, fyi to Dr Mccormick) Social [...] Miscellaneous Notes * Telephone Encounter - Soraya shelly Haque - 09/14/2022 1:35 PM EST Patient wants to let Dr Mccormick know about some changes to his medications made by [facility]. States hewas told to stop taking losartan 25 mg and cholecalciferol (Vitamin D3 1000 units) and was prescribed asprin 81 mg daily, atorvastatin 80 mg, daily at bedtime, and ticagrelor 90 mg, twice a day. documented in this encounter Plan of Treatment Upcoming Encounters Date Type Specialty Care Team Description 04/29/2027 Senior Restaurant Manager Report Abstract, Provider documented as of this encounter Visit Diagnoses Not on filedocumented in this encounter Care Teams Electronic Intelligence Officer Relationship Specialty Start Date End Date Wayne Jaimes [address] [place] [address] PCP - General Internal Medicine 02/16/22 Reilly Baker MD, PHD Surgeon Neurosurgery 01/20/22 Dafne Hilton MD [address] [place] [address] Specialist Cardiology 10/13/22 Desi Swenson NP [address] [place] [address] Cardiology 02/29/24 documented as of this encounter
--- OUTSIDE RECORDS SUMMARY | 2025-07-11 14:54 | XMS_ITS | Encounter Summary ---
Author Organization [facility] Prior to 05/12/2024 Address [address] [place] [address] Care Team Providers Care X Ray Equipment Servicer Name Role Phone Brett Velásquez MD Primary Care Provider Reilly Stewart MD, PHD Unavailable Unava ilBrett Bailon MD Primary Care Provider Wayne Dickson Primary Care Provider [phone] Dafne Hilton MD Unavailable [phone] Desi Swenson NP Unavailable [phone] Encounter Details Date Type Department Care Team Description 01/23/2020 [facility] Medical Records [address] [place] [address] Vladislav Antunez DO Social History Tobacco Use [...] Type Specialty Care Team Description 04/29/2027 Senior Quality Assurance Analyst Report Abstract, Provider documented as of this encounter Visit Diagnoses Not on filedocumented in this encounter Care Teams X Ray Equipment Servicer Relationship Specialty Start Date End Date Brett Velásquez MD PCP - General Internal Medicine 04/21/16 01/25/22 Brett Velásquez MD PCP - General Internal Medicine 01/26/22 02/15/22 Wayne Jaimes [address] [place] [address] PCP - General Internal Medicine 02/16/22 Reilly Baker MD, PHD Surgeon Neurosurgery 01/20/22 Dafne Hilton MD [address] [place] [address] Specialist Cardiology 10/13/22 Desi Swenson NP [address] [place] [address] Cardiology 02/29/24 documented as of this encounter
--- OUTSIDE RECORDS SUMMARY | 2025-07-11 14:54 | XMS_ITS | Encounter Summary ---
Author Organization [facility] Prior to 05/12/2024 Address [address] [place] [address] Care Team Providers Care Top Bottom Attaching Machine Operator Name Role Phone Reilly Baker MD, PHD Unavailable Unava Wayne Blackman Primary Care Provider [phone] Dafne Hilton MD Unavailable [phone] Desi Swenson NP Unavailable Reason for Visit * Reason Onset Date Comments medication problems 04/27/2022 Encounter Details Date Type Department Care Team Description 04/27/2022 Telephone Gastroenterology - [address] [place] [address] Kevin Oliva PA-C medication problems Social History Tobacco Use Types [...] Date Type Specialty Care Team Description 04/29/2027 Crane Engineer Report Abstract, Provider documented as of this encounter Visit Diagnoses Not on filedocumented in this encounter Care Teams Top Bottom Attaching Machine Operator Relationship Specialty Start Date End Date Wayne Jaimes [address] [place] [address] PCP - General Internal Medicine 02/16/22 Reilly Baker MD, PHD Surgeon Neurosurgery 01/20/22 Dafne Hilton MD [address] [place] [address] Specialist Cardiology 10/13/22 Desi Swenson NP [address] [place] [address] Cardiology 02/29/24 documented as of this encounter
--- OUTSIDE RECORDS SUMMARY | 2025-07-11 14:54 | XMS_ITS | Encounter Summary ---
Author Organization [facility] Prior to 05/12/2024 Address [address] [place] [address] Care Team Providers Care Inspector Subassembly Name Role Phone Reilly Baker MD, PHD Unavailable Unava Wayne Blackman Primary Care Provider [phone] Dafne Hilton MD Unavailable [phone] Desi Swenson NP Unavailable [phone] Encounter Details Date Type Department Care Team Description 04/01/2022 [facility] [address] [address] Ena Whipple, PA-C [address] [id number] Social History Tobacco Use Types Packs/Day Years [...] Type Specialty Care Team Description 04/29/2027 Data Analytics Analyst Report Abstract, Provider documented as of this encounter Visit Diagnoses Not on filedocumented in this encounter Care Teams Inspector Subassembly Relationship Specialty Start Date End Date Wayne Jaimes [address] [place] [address] PCP - General Internal Medicine 02/16/22 Reilly Baker MD, PHD Surgeon Neurosurgery 01/20/22 Dafne Hilton MD [address] [place] [address] Specialist Cardiology 10/13/22 Desi Swenson NP [address] [place], [place] [id number] Cardiology 02/29/24 documented as of this encounter
--- OUTSIDE RECORDS SUMMARY | 2025-07-11 14:54 | XMS_ITS | Encounter Summary ---
Author Organization [employer] [facility] Address [address] [place] [address] 7 [place] [address] Care Team Providers Care Traffic Law Attorney Name Role Phone Unavailable Primary Care Provider Unavailabl e Encounter Details Date Type Department Care Team (Latest Contact Info) Description 01/15/2021 Abstract [facility] CONVERSIONS Dental, Provider, DDS Social History [...]
--- OUTSIDE RECORDS SUMMARY | 2025-07-11 14:54 | XMS_ITS | Encounter Summary ---
Author Organization [facility] Prior to 05/12/2024 Address [address] [place] [address] Care Team Providers Care Rail Engineer Name Role Phone Brett Velásquez MD Primary Care Provider Reilly Stewart MD, PHD Unavailable Unava ilBrett Bailon MD Primary Care Provider Wayne Dickson Primary Care Provider Dafne Hilton MD Unavailable [phone] Desi Swenson NP Unavailable [phone] Encounter Details Date Type Department Care Team Description 02/01/2018 Operating Room Registered Nurse Report Medical Records [address] [place] [address] Rehab., [place] Social History Tobacco Use Types Packs/Day Years [...] Date Type Specialty Care Team Description 04/29/2027 Operating Room Registered Nurse Report Abstract, Provider documented as of this encounter Visit Diagnoses Not on filedocumented in this encounter Care Teams Rail Engineer Relationship Specialty Start Date End Date Brett Velásquez MD PCP - General Internal Medicine 04/21/16 01/25/22 Brett Velásquez MD PCP - General Internal Medicine 01/26/22 02/15/22 Wayne Jaimes [address] [place] [address] PCP - General Internal Medicine 02/16/22 Reilly Baker MD, PHD Surgeon Neurosurgery 01/20/22 Dafne Hilton MD [address] [place] [address] Specialist Cardiology 10/13/22 Desi Swenson NP [address] [place] [address] Cardiology 02/29/24 documented as of this encounter
--- OUTSIDE RECORDS SUMMARY | 2025-07-11 14:54 | XMS_ITS | Encounter Summary ---
Author Organization [facility] Prior to 05/12/2024 Address [address] [place] [address] Care Team Providers Care Pulverizer Name Role Phone Brett Velásquez MD Primary Care Provider Keisha Luna MD Primary Care Provider [phone] Brett Velásquez MD Primary Care Provider Reilly Stewart MD, PHD Unavailable Unamn ilBrett Bailon MD Primary Care Provider Wayne Dickson Primary Care Provider [phone] Dafne Hilton MD Unavailable [phone] Desi Swenson NP Unavailable [phone] Encounter Details Date Type Department Care Team Description 04/01/2015 Garnetter Report Medical Records [address] [place] [address] Olivia Harris MD [address] [place] [address] [address] [place] [address] Social History Tobacco Use Types Packs/Day Years [...] Date Type Specialty Care Team Description 04/29/2027 Garnetter Report Abstract, Provider documented as of this encounter Visit Diagnoses Not on filedocumented in this encounter Care Teams Pulverizer Relationship Specialty Start Date End Date Brett Velásquez MD PCP - General Internal Medicine 10/29/11 06/19/15 Keisha Chavez MD [address] [place], [place] [id number] PCP - General Internal Medicine 06/20/15 04/20/16 rBett Velásquez MD PCP - General Internal Medicine 04/21/16 01/25/22 Brett Velásquez MD PCP - General Internal Medicine 01/26/22 02/15/22 Wayne Jaimes [address] [place] [address] PCP - General Internal Medicine 02/16/22 Reilly Baker MD, PHD [address] [place] [address] Surgeon Neurosurgery 01/20/22 Dafne Hilton MD [address] [place] [address] Specialist Cardiology 10/13/22 Desi Swenson NP [address] [place] [address] Cardiology 02/29/24 documented as of this encounter
--- OUTSIDE RECORDS SUMMARY | 2025-07-11 14:54 | XMS_ITS | Clinical Summary ---
Author Organization [facility] Address [address] [place] [phone] Phone Care Team Providers Care Paper Baling Machine Operator Name Role Phone Shelbie Upton MD Primary Care Provider [phone] Allergies No known active allergies Medications albuterol HFA (PROVENTIL HFA;VENTOLIN HFA) 108 (90 Base) MCG/ACT inhaler Inhale 2 puffs every 6 (six) hours if needed Active lidocaine (XYLOCAINE) 5 % ointment Apply topically if needed Active sucralfate (CARAFATE) 1 GM/10ML suspension Take 1 g by mouth in the morning and 1 g at noon and 1 g in the evening and 1 g before bedtime. Active Efinaconazole (Jublia) 10 % solution Apply topically Active aspirin (ST ALCIRA) 81 MG EC tablet Take 81 mg by mouth 1 (one) time each day Active atorvastatin (LIPITOR) 40 MG tablet Take 40 mg by mouth 1 (one) time each day Active Mirabegron ER (Myrbetriq) 50 MG tablet sustained-relea se 24 hour Take by mouth Activ e linaCLOtide (Linzess) 145 MCG capsule Take by mouth Acti ve metoprolol succinate XL (TOPROL XL) 25 MG 24 hr tablet Take 25 mg by mouth 1 (one) time each day Do not crush or chew. Active ezetimibe (ZETIA) 10 MG tablet Take 10 mg by mouth 1 (one) time each day Active famotidine (PEPCID) 20 MG tablet Take 20 mg by mouth in the morning and 20 mg in the evening. Active Diclofenac Sodium 1 % gel Apply topically Active RABEprazole (ACIPHEX) 20 MG EC tablet Take 20 mg by mouth 1 (one) time each day before breakfast Do not crush, chew, or split. Active Active Problems Problem Noted Date Diagnosed [...] Encounters Date Type Department Care Team Description 06/01/2025 11:00 AM EST Office Visit [facility] [address] [address] Eduard Mccormick MD Other proteinuria (Primary Dx) 05/15/2025 Orders Only [facility] [address] [address] Kita Coyle Isolated proteinuria (Primary Dx) from [...] Sign Reading Time Taken Comments Blood Pressure 110/60 06/01/2025 11:20 AM EST Pulse 54 06/01/2025 11:20 AM EST Temperature - - Respiratory Rate - - Oxygen Saturation - - Inhaled Oxygen Concentration - - Weight 64.2 kg (141 lb 9.6 oz) 06/01/2025 11:20 AM EST Height - - Body Mass Index - - Plan of Treatment Upcoming Encounters Date Type Department Care Team (Late st Contact Info) Description 11/19/2025 2:15 PM EDT Office Visit [facility] [address] [id number] Eduard Mccormick MD [address] [facility] [address] [place] [id number] Health Maintenance Due Date Last Done Comments [...] w/Creatinine (Protein/Creat Ratio) (05/21/2025 10:32 AM EST) Protein, Ur 8 mg/dL [facility] Urine Protein/Creati nine Ratio 0.11 <=0.20 mg/mg creat [facility] Creatinine, Urine 76.0 mg/dL [facility] Urine Urine specimen obtained by clean catch procedure / Unknown 05/21/2025 10:32 AM EST 05/21/2025 11:47 AM EST us Eduard Mccormick MD LAB URINE ORDERABLES Final Resu lt [facility] [address] [place] [address] * (ABNORMAL) Renal Function Panel (05/21/2025 10:32 AM EST) Sodium 141 133 - 145 mmol/L [facility] Potassium 3.8 3.5 - 5.5 mmol/L [facility] Chloride 107 96 - 110 mmol/L [facility] Bicarbonate (CO2) 30 21 - 32 mmol/L [facility] Anion Gap 4 3 - 11 [facility] Glucose 153(H) 70 - 100 mg/dL [facility] BUN 10 5 - 25 mg/dL [facility] Creatinine Serum 1.00 0.70 - 1.30 mg/dL [facility] eGFR 80 >=60 mL/min/1. 73m2 [facility] Comment:Calculation based on the Chronic Kidney Disease Epidemiology Collaboration (CKD-EPI) equation refit without adjustment for race. BUN/Creatinine Ratio 10.0 [facility] Albumin 3.5 3.2 - 5.0 g/dL [facility] Calcium 8.8 8.5 - 10.5 mg/dL [facility] Phosphorus 3.8 2.5 - 4.5 mg/dL [facility] Blood Venous blood / Unknown 05/21/2025 10:32 AM EST 05/21/2025 3:06 PM EST us Eduard Mccormick MD LAB BLOOD ORDERABLES Final Resu lt NED [facility] [address] [place] [address] from Last 3 Months Insurance Medicaid ID [facility] ([id number]) Member Subscriber Plan / Payer (Ef fective 2022-Present) Name:Laina Lewis Relation to Subscriber:Self Name:Laina Lewis Payer ID:[id number] (NAIC) Group ID:[id number] Type:Not on file Address: [address] ([id number]) Medicaid [place] Care Teams Paper Baling Machine Operator Relationship Specialty Start Date End Date Shelbie Upton MD [address] [place] [address] [address] [place] [address] PCP - General Internal Medicine 02/04/24
--- OUTSIDE RECORDS SUMMARY | 2025-07-11 14:54 | XMS_ITS | Encounter Summary ---
Author Organization [facility] Prior to 05/12/2024 Address [address] [place] [address] Care Team Providers Care Fryer Line Helper Name Role Phone Reilly Baker MD, PHD Unavailable Unava Wayne Blackman Primary Care Provider [phone] Dafne Hilton MD Unavailable [phone] Desi Swenson NP Unavailable [phone] Encounter Details Date Type Department Care Team Description 09/14/2022 Refill Nephrology - [place] [address] [place] [address] Eduard Mccormick MD [address] [place] [address] Social History Tobacco Use Types Packs/Day Years [...] Date Type Specialty Care Team Description 04/29/2027 Regional Transfer Liaison Report Abstract, Provider documented as of this encounter Visit Diagnoses Not on filedocumented in this encounter Care Teams Fryer Line Helper Relationship Specialty Start Date End Date Jose M Jaimesgil Dowell [address] [place] [address] PCP - General Internal Medicine 02/16/22 Reilly Baker MD, PHD Surgeon Neurosurgery 01/20/22 Dafne Hilton MD [address] [place] [address] Specialist Cardiology 10/13/22 Desi Swenson NP [address] [place] [address] Cardiology 02/29/24 documented as of this encounter
--- OUTSIDE RECORDS SUMMARY | 2025-07-11 14:55 | XMS_ITS | Encounter Summary ---
Author Organization [facility] Address [address] [place] [address] Phone Care Team Providers Care Math Teacher Name Role Phone Vitor Mclean MD Primary Care Provider [phone] Encounter Details Date Type Department Care Team (Late st Contact Info) Description 12/15/2019 Procedure Pass [place] Admitting Dept - Virtual Department [address] [place] [address] Social History Tobacco Use Types Packs/Day Years [...] on filedocumented in this encounter Care Teams Math Teacher Relationship Specialty Start Date End Date Vitor Mclean MD [address] [facility] [address] [place] [address] PCP - General Pulmonary Disease 12/14/19 documented as of this encounter Additional Source Comments The information contained in this document represents components of the legal health record. It is not the complete legal health record.[facility]
--- OUTSIDE RECORDS SUMMARY | 2025-07-11 14:55 | XMS_ITS | Encounter Summary ---
Author Organization [facility] Prior to 05/12/2024 Address [address] [place] [address] Care Team Providers Care Voice Pathologist Name Role Phone Brett Velásquez MD Primary Care Provider Keisha Luna MD Primary Care Provider [phone] Brett Velásquez MD Primary Care Provider Reilly Stewart MD, PHD Unavailable [facility] MD Primary Care Provider Wayne Dickson Primary Care Provider [phone] Dafne Hilton MD Unavailable Desi Swenson NP Unavailable [phone] Reason for Visit * Reason Onset Date Comments REFERRAL 03/27/2013 Encounter Details Date Type Department Care Team Description 03/27/2013 Telephone Physiatry - [address] [address] Vladislav Antunez DO REFERRAL Social History Tobacco Use Types Packs/Day [...] Miscellaneous Notes * Telephone Encounter - Jaida Shashi - 03/27/2013 1:05 PM EDT This is [...] Date Type Specialty Care Team Description 04/29/2027 Television Audio Engineer Report Abstract, Provider documented as of this encounter Visit Diagnoses Not on filedocumented in this encounter Care Teams Voice Pathologist Relationship Specialty Start Date End Date Brett Velásquez MD PCP - General Internal Medicine 10/29/11 06/19/15 Keisha Chavez MD [address] [place] [address] PCP - General Internal Medicine 06/20/15 04/20/16 Brett Velásquez MD PCP - General Internal Medicine 04/21/16 01/25/22 Brett Velásquez MD PCP - General Internal Medicine 01/26/22 02/15/22 Wayne Jaimes [address] [place] [address] PCP - General Internal Medicine 02/16/22 Reilly Baker MD, PHD [address] [place] [address] Surgeon Neurosurgery 01/20/22 Dafne Hilton MD [address] [place] [address] Specialist Cardiology 10/13/22 Desi Swenson NP [address] [place] [address] Cardiology 02/29/24 documented as of this encounter
--- OUTSIDE RECORDS SUMMARY | 2025-07-11 14:55 | XMS_ITS | Encounter Summary ---
Author Organization [facility] Prior to 05/12/2024 Address [address] [place] [address] Care Team Providers Care Certified Medication Aide Name Role Phone Brett Velásquez MD Primary Care Provider Reilly Stewart MD, PHD Unavailable Unava ilBrett Bailon MD Primary Care Provider Wayne Dickson Primary Care Provider [phone] Dafne Hilton MD Unavailable [phone] Desi Swenson NP Unavailable [phone] Encounter Details Date Type Department Care Team Description 05/03/2018 Release of Information Medical Records [address] [place] [address] Abstract, Provider Social History Tobacco Use Types [...] Type Specialty Care Team Description 04/29/2027 Maintenance Craftsman Report Abstract, Provider documented as of this encounter Visit Diagnoses Not on filedocumented in this encounter Care Teams Certified Medication Aide Relationship Specialty Start Date End Date Brett Velásquez MD PCP - General Internal Medicine 04/21/16 01/25/22 Brett Velásquez MD PCP - General Internal Medicine 01/26/22 02/15/22 Wayne Jaimes [address] [place] [address] PCP - General Internal Medicine 02/16/22 Reilly Baker MD, PHD Surgeon Neurosurgery 01/20/22 Dafne Hilton MD [address] [place] [address] Specialist Cardiology 10/13/22 Desi Swenson NP [address] [place] [address] Cardiology 02/29/24 documented as of this encounter
--- OUTSIDE RECORDS SUMMARY | 2025-07-11 14:55 | XMS_ITS | Encounter Summary ---
Author Organization [facility] Prior to 05/12/2024 Address [address] [place] [address] Care Team Providers Care Manifold Operator Name Role Phone Brett Velásquez MD Primary Care Provider Reilly Stewart MD, PHD Unavailable Brett España MD Primary Care Provider Wayne Dickson Primary Care Provider [phone] Dfane Hilton MD Unavailable [phone] Desi Swenson NP Unavailable [phone] Encounter Details Date Type Department Care Team Description 08/15/2020 Diamond Driller Report Medical Records [address] [place] [address] Desi Li DPM Social History Tobacco Use [...] Date Type Specialty Care Team Description 04/29/2027 Diamond Driller Report Abstract, Provider documented as of this encounter Visit Diagnoses Not on filedocumented in this encounter Care Teams Manifold Operator Relationship Specialty Start Date End Date Brett Velásquez MD PCP - General Internal Medicine 04/21/16 01/25/22 Brett Velásquez MD PCP - General Internal Medicine 01/26/22 02/15/22 Wayne Jaimes [address] [place] [address] PCP - General Internal Medicine 02/16/22 Reilly Baker MD, PHD Surgeon Neurosurgery 01/20/22 Dafne Hilton MD [address] [place] [address] Specialist Cardiology 10/13/22 Desi Swenson NP [address] [place] [address] Cardiology 02/29/24 documented as of this encounter
--- OUTSIDE RECORDS SUMMARY | 2025-07-11 14:55 | XMS_ITS | Encounter Summary ---
Author Organization [employer] [facility] Prior to 05/12/2024 Address [address] [place] [address] Care Team Providers Care Application Project Leader Name Role Phone Reilly Baker MD, PHD Unavailable Unava ilable Wayne Jaimes Primary Care Provider [phone] Dafne Hilton MD Unavailable [phone] Desi Swenson NP Unavailable [phone] Encounter Details Date Type Department Care Team Description 01/28/2023 Pretzel Twister Report Medical Records [address] [place] [address] Zofia Howe PA-C Social History Tobacco Use [...] Date Type Specialty Care Team Description 04/29/2027 Pretzel Twister Report Abstract, Provider documented as of this encounter Visit Diagnoses Not on filedocumented in this encounter Care Teams Application Project Leader Relationship Specialty Start Date End Date Wayne Jaimes [address] [place] [address] PCP - General Internal Medicine 02/16/22 Reilly Baker MD, PHD Surgeon Neurosurgery 01/20/22 Dafne Hilton MD [address] [place] [address] Specialist Cardiology 10/13/22 Desi Swenson NP [address] [place] [address] Cardiology 02/29/24 documented as of this encounter
--- OUTSIDE RECORDS SUMMARY | 2025-07-11 14:55 | XMS_ITS | Encounter Summary ---
Author Organization [facility] Prior to 05/12/2024 Address [address] [place] [address] Care Team Providers Care Welt Maker Name Role Phone Reilly Baker MD, PHD Unavailable Unava Wayne Blackman Primary Care Provider [phone] Dafne Hilton MD Unavailable [phone] Desi Swenson NP Unavailable [phone] Reason for Visit * Reason Onset Date Comments Provider Call Back 02/11/2023 Encounter Details Date Type Department Care Team Description 02/11/2023 Telephone Gastroenterology - [address] [place] [address] Kevin Oliva PA-C Provider Call [...] Date Type Specialty Care Team Description 04/29/2027 File Conversion Operator Report Abstract, Provider documented as of this encounter Visit Diagnoses Not on filedocumented in this encounter Care Teams Welt Maker Relationship Specialty Start Date End Date Wayne Jaimes [address] [place] [address] PCP - General Internal Medicine 02/16/22 Reilly Baker MD, PHD Surgeon Neurosurgery 01/20/22 Danfe Hilton MD [address] [place] [address] Specialist Cardiology 10/13/22 Desi Swenson NP [address] [place] [address] Cardiology 02/29/24 documented as of this encounter
--- OUTSIDE RECORDS SUMMARY | 2025-07-11 14:55 | XMS_ITS | Clinical Summary ---
Author Organization [address] [facility] Address [address] [place] [address] Phone Care Team Providers Care System Sales Consultant Name Role Phone Shelbie Upton MD Primary Care Provider [phone] Allergies No known active allergies Medications bisacodyL [...] 3 DOSES PER EPISODE. 02/28/20 25 Active Linzess 145 mcg capsule Take 1 capsule (145 mcg total) by mouth 1 (one) time each day. 04/23/20 25 Active gentamicin (GARAMYCIN) 0.1 % ointment APPLY 1 APPLICATION OF OINTMENT TOPICALLY ONCE DAILY. APPLY TO THE RIGHT BIG TOE AND LEFT 5TH TOE FOR 30 DAYS 01/11/20 Active furosemide (LASIX) 20 mg tablet Take 1 tablet (20 mg total) by mouth. 05/01/20 25 Active amiodarone (PACERONE) 200 mg tablet Take 1 tablet (200 mg total) by mouth. 04/16/20 25 Active acetaminophen (TYLENOL) 325 mg tablet TAKE 3 TABLETS BY MOUTH EVERY 6 HOURS. (LIMIT 4000MG OF TYLENOL/ACETAMI NOPHEN PER DAY) 04/16/20 Active metoprolol tartrate (LOPRESSOR) 25 mg tablet TAKE 1 TABLET BY MOUTH TWO TIMES A DAY. *THIS IS NOT THE SAME MEDICATION YOU WERE TAKING BEFOR SURGERY* 04/16/20 25 025 Discontin ued(Alter jorge therapy) Hospital, Clinic, or Other Facility Administered Medication Ordered Dose Route Frequency Start Date End Date Status sodium hyaluronate (viscosup) intra-articular injection 20 mgIndications:Primary osteoarthritis of right knee,Primary osteoarthritis of left knee 20 mg Once PRN Procedure 06/12/2025 06/12/2025 Ended sodium hyaluronate (viscosup) intra-articular injection 20 mgIndications:Primary osteoarthritis of right knee,Primary osteoarthritis of left knee 20 mg Once PRN Procedure 06/12/2025 06/12/2025 Ended sodium hyaluronate (viscosup) intra-articular injection 20 mgIndications:Primary osteoarthritis of right knee,Primary osteoarthritis of left knee 20 mg Once PRN Procedure 06/19/2025 06/19/2025 Ended sodium hyaluronate (viscosup) intra-articular injection 20 mgIndications:Primary osteoarthritis of right knee,Primary osteoarthritis of left knee 20 mg Once PRN Procedure 06/19/2025 06/19/2025 Ended sodium hyaluronate (viscosup) intra-articular injection 20 mgIndications:Primary osteoarthritis of right knee,Primary osteoarthritis of left knee 20 mg Once PRN Procedure 06/26/2025 06/26/2025 Ended sodium hyaluronate (viscosup) intra-articular injection 20 mgIndications:Primary osteoarthritis of right knee,Primary osteoarthritis of left knee 20 mg Once PRN Procedure 06/26/2025 06/26/2025 Ended Active Problems Problem Noted Date Diagnosed [...] PM (R13.19) 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 12/17/2022 ST elevation [...] Encounters Date Type Department Care Team Description 06/26/2025 3:15 PM EST Office Visit Orthopedics - [address] [phone] Amadeo Sofia PA Primary osteoarthritis of right knee (Primary Dx); Primary osteoarthritis of left knee 06/19/2025 3:00 PM EST Office Visit Orthopedic - [address] [phone] Amadeo Sofia PA Primary osteoarthritis of right knee (Primary Dx); Primary osteoarthritis of left knee 06/12/2025 4:00 PM EST Office Visit Orthopedic[address] [phone] Amadeo Sofia PA Primary osteoarthritis of right knee (Primary Dx); Primary osteoarthritis of left knee 05/21/2025 10:25 AM EST Lab Draw Station - [address] Isolated proteinuria 05/09/2025 3:00 PM EDT Office Visit Orthopedic[address] [phone] Amadeo Sofia PA Primary osteoarthritis of right knee (Primary Dx); Primary osteoarthritis of left knee 05/09/2025 [address] [phone] Amadeo Sofia PA 05/08/2025 2:30 PM EDT Office Visit Pulmonology - [address] [place] [address] Jose Benjamin MD Moderate asthma, unspecified whether complicated, unspecified whether persistent (Primary Dx); Obstructive sleep apnea 04/16/2025 Telephone Adult Medicine [address] [phone] [place] LPN from Last 3 Months Immunizations Immunization Administration [...] fracture repair UPPER GASTROINTESTINAL ENDOSCOPY 01/13/2017 PROCEDURE: CA UPPER GI ENDOSCOPY PERFORMED; COMMENT: normal UPPER GASTROINTESTINAL ENDOSCOPY 03/08/12 PROCEDURE: CA UPPER GI ENDOSCOPY PERFORMED; COMMENT: normal OTHER [...] Dr. Bell UPPER GASTROINTESTINAL ENDOSCOPY 09/17/2020 PROCEDURE: CA UPPER GI ENDOSCOPY PERFORMED; COMMENT: Normal findings. 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 (CMS/HCC V24) 12/17/2022 DX:Coronary artery disease involving mechoopda coronary artery of mechoopda heart with angina pectoris (HCC) Esophageal dysmotility DX:Esopha geal dysmotility Gastritis DX:Gastritis Dysphagia DX:Dysphagia Esophageal dysmotility DX:Esopha geal dysmotility Colon polyps DX:Colon polyps History of WI (myocardial infarction) DX:History of [place] (myocardial infarction) Hyperlipidemia 03/06/2024 DX:Hyperlipidemi a JENNIFER [...] Orientation Straight 08/08/2024 11 :35 AM EST Last Filed Vital Signs Vital Sign Reading Time Taken Comments Blood Pressure 119/64 05/08/2025 2:43 PM EDT Pulse 62 05/08/2025 2:43 PM EDT Temperature 36.1 C (96.9 F) 05/08/2025 2:43 PM EDT Respiratory Rate 16 06/26/2025 3:11 PM EST Oxygen Saturation 97% 05/08/2025 2:43 PM EDT Inhaled Oxygen Concentration - - Weight 65.3 kg (144 lb) 06/26/2025 3:11 PM EST Height 167.6 cm (5' 6 ) 06/26/2025 3:11 PM EST Body Mass Index 23.24 06/26/2025 3:11 PM EST Plan of Treatment Upcoming Encounters Date Type Department Care Team (Late st Contact Info) Description 08/08/2025 1:45 PM EST Office Visit Pulmonology - [address] [place] [address] Jose Benjamin MD [address] [place] [phone] 11/14/2025 3:00 PM EDT Office Visit Nephrology - [address] [place] [phone] Eduard Mccormick MD [address] [place] [address] Health Maintenance Due Date Last [...] Procedure Name Priority Date/Time Associated Diagnosis Comments CA ARTHROCENTESIS/ASPI RATION/INJECTION MAJOR JOINT/BURSA W/O U/S GUIDANCE Routine 06/26/2025 3:15 PM EST Primary osteoarthritis of right knee Primary osteoarthritis of left knee CA ARTHROCENTESIS/ASPI RATION/INJECTION MAJOR JOINT/BURSA W/O U/S GUIDANCE Routine 06/19/2025 3:00 PM EST Primary osteoarthritis of right knee Primary osteoarthritis of left knee CA ARTHROCENTESIS/ASPI RATION/INJECTION MAJOR JOINT/BURSA W/O U/S GUIDANCE Routine 06/12/2025 4:00 PM EST Primary osteoarthritis of right knee Primary osteoarthritis of left knee RENAL FUNCTION PANEL Routine 05/21/2025 10:32 AM EST Isolated proteinuria PROTEIN AND CREATININE WITH RATIO, URINE Routine 05/21/2025 10:32 AM EST Isolated proteinuria from Last 3 Months Results * CA ARTHROCENTESIS/ASPIRATION/INJECTION MAJOR JOINT/BURSA W/O U/S GUIDANCE (06/26/2025 3:15 PM EST) Amadeo Chan PA - 06/26/2025 3:15 PM EST SUSAN Razo 06/26/2025 3:28 PM L Inj/Asp: bilateral knee Indications: pain Details: 22 G needle, anterolateral approach Medications (Right): 20 mg sodium hyaluronate (viscosup) 10 mg/mL(mw 2.4 -3.6 million) Medications (Left): 20 mg sodium hyaluronate (viscosup) 10 mg/mL(mw 2.4 -3.6 million) Outcome: tolerated well, no immediate complications Informed Consent: Site: Knee Laterality: Bilateral Relevant images/test results available and reviewed: yes Health status cleared: Yes Procedure/treatment, purpose, treatment alternatives, risks/potential complications and benefits explained: yes Risk/complications/benefits details: Risks include but are not limited to: The treatment may not accomplish the desired results. Additionally bleeding, infection, damage to tendon, nerve, cartilage, muscle; thinning or lightening of the skin in the area of injection; flushing or redness of the face, elevated blood pressure or blood sugar, allergic reaction, rash, increased pain Benefits include relief of inflammation and pain Patient questions answered: yes Patient agrees, verbalizes understanding, and wants to proceed: yes Consent given by: Patient Informed consent discussion completed by Physician/ROSEMARY with patient: Verbal Pre-procedure timeout performed: yes us Amadeo DAVIS IN CLINIC/BEDSIDE ORDERABLES Fin al Result * CA ARTHROCENTESIS/ASPIRATION/INJECTION MAJOR JOINT/BURSA W/O U/S GUIDANCE (06/19/2025 3:00 PM EST) Amadeo Chan PA - 06/19/2025 3:00 PM EST SUSAN Razo 06/19/2025 3:11 PM L Inj/Asp: bilateral knee Indications: pain Details: 22 G needle, anterolateral approach Medications (Right): 20 mg sodium hyaluronate (viscosup) 10 mg/mL(mw 2.4 -3.6 million) Medications (Left): 20 mg sodium hyaluronate (viscosup) 10 mg/mL(mw 2.4 -3.6 million) Outcome: tolerated well, no immediate complications Informed Consent: Site: Knee Laterality: Bilateral Relevant images/test results available and reviewed: yes Health status cleared: Yes Procedure/treatment, purpose, treatment alternatives, risks/potential complications and benefits explained: yes Risk/complications/benefits details: Risks include but are not limited to: The treatment may not accomplish the desired results. Additionally bleeding, infection, damage to tendon, nerve, cartilage, muscle; thinning or lightening of the skin in the area of injection; flushing or redness of the face, elevated blood pressure or blood sugar, allergic reaction, rash, increased pain Benefits include relief of inflammation and pain Patient questions answered: yes Patient agrees, verbalizes understanding, and wants to proceed: yes Consent given by: Patient Informed consent discussion completed by Physician/ROSEMARY with patient: Verbal Pre-procedure timeout performed: yes Amadeo DAVIS IN CLINIC/BEDSIDE ORDERABLES Fin al Result * CA ARTHROCENTESIS/ASPIRATION/INJECTION MAJOR JOINT/BURSA W/O U/S GUIDANCE (06/12/2025 4:00 PM EST) Amadeo Chan PA - 06/12/2025 4:00 PM EST SUSAN Razo 06/12/2025 4:27 PM L Inj/Asp: bilateral knee Indications: pain Details: 22 G needle, anterolateral approach Medications (Right): 20 mg sodium hyaluronate (viscosup) 10 mg/mL(mw 2.4 -3.6 million) Medications (Left): 20 mg sodium hyaluronate (viscosup) 10 mg/mL(mw 2.4 -3.6 million) Outcome: tolerated well, no immediate complications Informed Consent: Site: Knee Laterality: Bilateral Relevant images/test results available and reviewed: yes Health status cleared: Yes Procedure/treatment, purpose, treatment alternatives, risks/potential complications and benefits explained: yes Risk/complications/benefits details: Risks include but are not limited to: The treatment may not accomplish the desired results. Additionally bleeding, infection, damage to tendon, nerve, cartilage, muscle; thinning or lightening of the skin in the area of injection; flushing or redness of the face, elevated blood pressure or blood sugar, allergic reaction, rash, increased pain Benefits include relief of inflammation and pain Patient questions answered: yes Patient agrees, verbalizes understanding, and wants to proceed: yes Consent given by: Patient Informed consent discussion completed by Physician/ROSEMARY with patient: Verbal Pre-procedure timeout performed: yes Amadeo DAVIS IN CLINIC/BEDSIDE ORDERABLES Fin al Result * Protein and creatinine with ratio, urine (05/21/2025 10:32 AM EST) Protein, Urine 8 mg/dL LAB CHEMISTRY METHOD 05/21/2025 9:25 PM EST [facility] Prot/Creat, Ur 0.11 <=0.20 mg/mg creat LAB CHEMISTRY METHOD 05/21/2025 9:25 PM [facility] Creatinine, Urine 76.0 mg/dL LAB CHEMISTRY METHOD 05/21/2025 9:25 PM [facility] Urine Urine specimen obtained by clean catch procedure / Unknown Non-blood Collection / Unknown 05/21/2025 10:32 AM EST 05/21/2025 10:32 AM EST us Eduard Mccormick MD LAB URINE ORDERABLES Final Resu lt [facility] [address] [place] [address], [place] [phone] * (ABNORMAL) Renal function panel (05/21/2025 10:32 AM EST) Sodium 141 133 - 145 mmol/L LAB CHEMISTRY METHOD 05/21/2025 8:20 PM [facility] Potassium 3.8 3.5 - 5.5 mmol/L LAB CHEMISTRY METHOD 05/21/2025 8:20 PM [facility] Chloride 107 96 - 110 mmol/L LAB CHEMISTRY METHOD 05/21/2025 8:20 PM [facility] CO2 30 21 - 32 mmol/L LAB CHEMISTRY METHOD 05/21/2025 8:20 PM [facility] Anion Gap 4 3 - 11 LAB CHEMISTRY METHOD 05/21/2025 8:20 PM [facility] Glucose 153(H) 70 - 100 mg/dL LAB CHEMISTRY METHOD 05/21/2025 8:20 PM [facility] BUN 10 5 - 25 mg/dL LAB CHEMISTRY METHOD 05/21/2025 8:20 PM [facility] Creatinine 1.00 0.70 - 1.30 mg/dL LAB CHEMISTRY METHOD 05/21/2025 8:20 PM [facility] eGFR 80 >=60 mL/min/1. 73m2 LAB CHEMISTRY METHOD 05/21/2025 8:20 PM EST [facility] Comment:Calculation based on the Chronic Kidney Disease Epidemiology Collaboration (CKD-EPI) equation refit without adjustment for race. BUN/Creatinine Ratio 10.0 LAB CHEMISTRY METHOD 05/21/2025 8:20 PM EST [facility] Albumin 3.5 3.2 - 5.0 g/dL LAB CHEMISTRY METHOD 05/21/2025 8:20 PM EST [facility] Calcium 8.8 8.5 - 10.5 mg/dL LAB CHEMISTRY METHOD 05/21/2025 8:20 PM [facility] Phosphorus 3.8 2.5 - 4.5 mg/dL LAB CHEMISTRY METHOD 05/21/2025 8:20 PM EST [facility] Blood Venous blood specimen / Unknown Venipuncture / Unknown 05/21/2025 10:32 AM EST 05/21/2025 10:32 AM EST us Eduard Mccormick MD LAB BLOOD ORDERABLES Final Resu lt [facility]) [facility] [address] [place] [address], from Last 3 Months Insurance [facility] MEDICARE [facility] MEDICAID Care Teams System Sales Consultant Relationship Specialty Start Date End Date Shelbie Upton MD [address] [place] [address] PCP - General Internal Medicine 10/31/24
--- OUTSIDE RECORDS SUMMARY | 2025-07-11 14:55 | XMS_ITS | Encounter Summary ---
Author Organization [facility] Prior to 05/12/2024 Address [address] [place] [address] Care Team Providers Care Fire Chief'S Aide Name Role Phone Reilly Baker MD, PHD Unavailable Unava Wayne Blackman Primary Care Provider [phone] Dafne Hilton MD Unavailable [phone] Desi Swenson NP Unavailable [phone] Reason for Visit * Reason Onset Date Comments APPOINTMENT 08/19/2023 Encounter Details Date Type Department Care Team Description 08/19/2023 Telephone [facility] [address] [facility] [address] [place] [address] Wen Herrmann NP [address] [facility] [place] [address] APPOINTMENT Social History Tobacco Use Types Packs/Day [...] Miscellaneous Notes * Telephone Encounter - Tanja Geoffrey Thomson - 08/25/2023 4:08 PM EST Outreach made to patient to schedule his 3 Euflexxa appts with Maryam. Thanks. * Telephone Encounter - Faiza Wilson - 08/20/2023 1:35 PM EST Eve from [facility] called back and informed me that the patient had three requests open in the prior auth portal so she cancelled two as duplicates. Eve also added the J-code [id number] to therequest. * Telephone Encounter - Ena Randle - 08/19/2023 1:10 PM EST Eve Shi called in regards to a PA for pt Please call her back to discuss [phone] documented in this encounter Plan of Treatment Upcoming Encounters Date Type Specialty Care Team Description 04/29/2027 Technical Systems Architect Report Abstract, Provider documented as of this encounter Visit Diagnoses Not on filedocumented in this encounter Care Teams Fire Chief'S Aide Relationship Specialty Start Date End Date Wayne Jaimes [address] [place] [address] PCP - General Internal Medicine 02/16/22 Reilly Baker MD, PHD Surgeon Neurosurgery 01/20/22 Dafne Hilton MD [address] [place] [address] Specialist Cardiology 10/13/22 Desi Swenson NP [address] [place] [address] Cardiology 02/29/24 documented as of this encounter
--- OUTSIDE RECORDS SUMMARY | 2025-07-11 14:55 | XMS_ITS | Encounter Summary ---
Author Organization [facility] [employer] [facility] Prior to 05/12/2024 Address [address] [place] [address] Care Team Providers Care International Organizer Name Role Phone Reilly Baker MD, PHD Unavailable Unava ilWayne Osborne Primary Care Provider [phone] Dafne Hilton MD Unavailable [phone] Desi Swenson NP Unavailable [phone] Encounter Details Date Type Department Care Team Description 01/04/2023 Walk In Clinic Visit Medical Records [address] [place] [address] Clinic, [facility] Walk-In [address] [place] [address] Social History Tobacco Use Types Packs/Day Years [...] Date Type Specialty Care Team Description 04/29/2027 Investigations Director Report Abstract, Provider documented as of this encounter Visit Diagnoses Not on filedocumented in this encounter Care Teams International Organizer Relationship Specialty Start Date End Date Wayne JaimesUsama [address] [place] [address] PCP - General Internal Medicine 02/16/22 Reilly Baker MD, PHD Surgeon Neurosurgery 01/20/22 Dafne Hilton MD [address] [place] [address] Specialist Cardiology 10/13/22 Desi Swenson NP [address] [place] [address] Cardiology 02/29/24 documented as of this encounter
--- OUTSIDE RECORDS SUMMARY | 2025-07-11 14:55 | XMS_ITS | Encounter Summary ---
Author Organization [facility] [employer] [facility] Prior to 05/12/2024 Address [address] [place] [address] Care Team Providers Care Hat Block Bench Hand Name Role Phone Brett Velásquez MD Primary Care Provider Reilly Stewart MD, PHD Unavailable Brett España MD Primary Care Provider Wayne Dickson Primary Care Provider [phone] Dafne Hilton MD Unavailable [phone] Desi Swenson NP Unavailable [phone] Encounter Details Date Type Department Care Team Description 09/18/2020 Hotel Custodian Report Medical Records [address] [place] [address] Desi Li DPM Social History Tobacco Use [...] Type Specialty Care Team Description 04/29/2027 Hotel Custodian Report Abstract, Provider documented as of this encounter Visit Diagnoses Not on filedocumented in this encounter Care Teams Hat Block Bench Hand Relationship Specialty Start Date End Date Brett Velásquez MD PCP - General Internal Medicine 04/21/16 01/25/22 Brett Velásquez MD PCP - General Internal Medicine 01/26/22 02/15/22 Wayne Jaimes [address] [place] [address] PCP - General Internal Medicine 02/16/22 Reilly Baker MD, PHD Surgeon Neurosurgery 01/20/22 Dafne Hilton MD [address] [place] [address] Specialist Cardiology 10/13/22 Desi Swenson NP [address] [place] [address] Cardiology 02/29/24 documented as of this encounter
--- OUTSIDE RECORDS SUMMARY | 2025-07-11 14:55 | XMS_ITS | Encounter Summary ---
Author Organization [facility] Prior to 05/12/2024 Address [address] [place] [address] Care Team Providers Care Ground Crew Lines Person Name Role Phone Brett Velásquez MD Primary Care Provider Reilly Stewart MD, PHD Unavailable Brett España MD Primary Care Provider Wayne Dickson Primary Care Provider [phone] Dafne Hilton MD Unavailable [phone] Desi Swenson NP Unavailable [phone] Encounter Details Date Type Department Care Team Description 09/25/2020 Orders Only Physiatry - [address] [address] Sonny Abrams PA-C Social History Tobacco Use [...] Date Type Specialty Care Team Description 04/29/2027 Cco Report Abstract, Provider documented as of this encounter Visit Diagnoses Not on filedocumented in this encounter Care Teams Ground Crew Lines Person Relationship Specialty Start Date End Date Brett Velásquez MD PCP - General Internal Medicine 04/21/16 01/25/22 Brett Velásquez MD PCP - General Internal Medicine 01/26/22 02/15/22 Wayne Jaimes [address] [place] [address] PCP - General Internal Medicine 02/16/22 Reilly Baker MD, PHD Surgeon Neurosurgery 01/20/22 Dafne Hilton MD [address] [place] [address] Specialist Cardiology 10/13/22 Desi Swenson NP [address] [place] [address] Cardiology 02/29/24 documented as of this encounter
--- OUTSIDE RECORDS SUMMARY | 2025-07-11 14:55 | XMS_ITS | Encounter Summary ---
Author Organization [facility] [employer] [facility] Prior to 05/12/2024 Address [address] [place] [address] Care Team Providers Care Fire Dispatcher Name Role Phone Brett Velásquez MD Primary Care Provider Reilly Stewart MD, PHD Unavailable Brett España MD Primary Care Provider Wayne Dickson Primary Care Provider [phone] Dafne Hilton MD Unavailable [phone] Desi Swenson NP Unavailable [phone] Encounter Details Date Type Department Care Team Description 06/25/2020 Public Relations Associate Report Medical Records [address] [place] [address] Zuleika Baez PA-C Social History Tobacco Use [...] Type Specialty Care Team Description 04/29/2027 Public Relations Associate Report Abstract, Provider documented as of this encounter Visit Diagnoses Not on filedocumented in this encounter Care Teams Fire Dispatcher Relationship Specialty Start Date End Date Brett Velásquez MD PCP - General Internal Medicine 04/21/16 01/25/22 Brett Velásquez MD PCP - General Internal Medicine 01/26/22 02/15/22 Wayne Jaimes [address] [place] [address] PCP - General Internal Medicine 02/16/22 Reilly Baker MD, PHD Surgeon Neurosurgery 01/20/22 Dafne Hilton MD [address] [place] [address] Specialist Cardiology 10/13/22 Desi Swenson NP [address] [place] [address] Cardiology 02/29/24 documented as of this encounter
--- OUTSIDE RECORDS SUMMARY | 2025-07-11 14:55 | XMS_ITS | Encounter Summary ---
Author Organization [facility] Address [address] [place] [address] Phone Care Team Providers Care Customer Contact Sales Associate Name Role Phone Vitor Mclean MD Primary Care Provider Encounter Details Date Type Department Care Team (Latest Contact Info) Description 01/31/2024 Transcribe Orders Virtual Department [address] [place] [address] Kevin Oliva PA [address] [place] [address] [place] [address] Gastroesophageal reflux disease, unspecified whether esophagitis present [...] present documented in this encounter Care Teams Customer Contact Sales Associate Relationship Specialty Start Date End Date Vitor Mclean MD [address] [place] [address] PCP - General Pulmonary Disease 12/14/19 documented as of this encounter Additional Source Comments The information contained in this document represents components of the legal health record. It is not the complete legal health record.[facility]
--- OUTSIDE RECORDS SUMMARY | 2025-07-11 14:55 | XMS_ITS | Encounter Summary ---
Author Organization [facility] [employer] [facility] Prior to 05/12/2024 Address [address] [place] [address] Care Team Providers Care Meat Processing Center Manager Name Role Phone Brett Velásquez MD Primary Care Provider Reilly Stewart MD, PHD Unavailable Brett España MD Primary Care Provider Wayne Dickson Primary Care Provider [phone] Dafne Hilton MD Unavailable Desi Swenson NP Unavailable [phone] Encounter Details Date Type Department Care Team Description 04/23/2020 [facility] Medical Records [address] [place] [address] Vladislav Antunez DO Social History Tobacco Use [...] Type Specialty Care Team Description 04/29/2027 Public Speaker Report Abstract, Provider documented as of this encounter Visit Diagnoses Not on filedocumented in this encounter Care Teams Meat Processing Center Manager Relationship Specialty Start Date End Date Brett Velásquez MD PCP - General Internal Medicine 04/21/16 01/25/22 Brett Velásquez MD PCP - General Internal Medicine 01/26/22 02/15/22 Wayne Jaimes [address] [place] [address] PCP - General Internal Medicine 02/16/22 Reilly Baker MD, PHD Surgeon Neurosurgery 01/20/22 Dafne Hilton MD [address] [place] [address] Specialist Cardiology 10/13/22 Desi Swenson NP [address] [place] [address] Cardiology 02/29/24 documented as of this encounter
--- OUTSIDE RECORDS SUMMARY | 2025-07-11 14:55 | XMS_ITS | Encounter Summary ---
Author Organization [facility] Prior to 05/12/2024 Address [address] [place] [address] Care Team Providers Care Carpenter Streetcar Name Role Phone Reilly Baker MD, PHD Unavailable Unava Wayne Blackman Primary Care Provider Dafne Hilton MD Unavailable [phone] Desi Swenson NP Unavailable [phone] Encounter Details Date Type Department Care Team Description 10/23/2022 [facility] Medical Records [address] [place] [address] Abstract, Provider Social History Tobacco Use Types [...] Date Type Specialty Care Team Description 04/29/2027 Printed Forms Proofreader Report Abstract, Provider documented as of this encounter Procedures Procedure Name Priority Date/Time Associated Diagnosis Comments OUTSIDE BARIUM SWALLOW Routine 10/23/2022 documented in this encounter Results * OUTSIDE BARIUM SWALLOW (10/23/2022) Provider Default RADIOLOGY documented in this encounter Visit Diagnoses Not on filedocumented in this encounter Care Teams Carpenter Streetcar Relationship Specialty Start Date End Date Wayne Jaimes [address] [place] [address] PCP - General Internal Medicine 02/16/22 Reilly Baker MD, PHD Surgeon Neurosurgery 01/20/22 Dafne Hilton MD [address] [place] [address] Specialist Cardiology 10/13/22 Desi Swenson NP [address] [place], [place] [id number] Cardiology 02/29/24 documented as of this encounter
--- OUTSIDE RECORDS SUMMARY | 2025-07-11 14:55 | XMS_ITS | Encounter Summary ---
Author Organization [facility] Prior to 05/12/2024 Address [address] [place] [address] Care Team Providers Care Forest Management Professor Name Role Phone Reilly Baker MD, PHD Unavailable Unava ilable Wayne Jaimes Primary Care Provider [phone] Dafne Hilton MD Unavailable [phone] Desi Swenson NP Unavailable Encounter Details Date Type Department Care Team Description 08/25/2023 [facility] Records [facility] Medical [facility] [address] [facility] [address] [place] [address] Wen Herrmann NP [address] [facility] [place] [address] Social History Tobacco Use Types Packs/Day Years [...] Date Type Specialty Care Team Description 04/29/2027 Anchorman Report Abstract, Provider documented as of this encounter Visit Diagnoses Not on filedocumented in this encounter Care Teams Forest Management Professor Relationship Specialty Start Date End Date Wayne Jaimes [address] [place] [address] PCP - General Internal Medicine 02/16/22 Reilly Baker MD, PHD Surgeon Neurosurgery 01/20/22 Dafne Hilton MD [address] [place] [address] Specialist Cardiology 10/13/22 Desi Swenson NP [address] [place] [address] Cardiology 02/29/24 documented as of this encounter
--- OUTSIDE RECORDS SUMMARY | 2025-07-11 14:55 | XMS_ITS | Encounter Summary ---
Author Organization [employer] [facility] Prior to 05/12/2024 Address [address] [place] [address] Care Team Providers Care Campus Ambassador Name Role Phone Brett Velásquez MD Primary Care Provider Keisha Luna MD Primary Care Provider [phone] Brett Velásquez MD Primary Care Provider Reilly Stewart MD, PHD Unavailable Unava ilable Brett Velásquez MD Primary Care Provider Wayne Dickson Primary Care Provider [phone] Dafne Hilton MD Unavailable [phone] Desi Swenson NP Unavailable [phone] Encounter Details Date Type Department Care Team Description 05/25/2013 Manager Bridge Report Medical Records [address] [place] [address] Aleksandar Huggins MD Social History Tobacco Use [...] Type Specialty Care Team Description 04/29/2027 Manager Bridge Report Abstract, Provider documented as of this encounter Visit Diagnoses Not on filedocumented in this encounter Care Teams Campus Ambassador Relationship Specialty Start Date End Date Brett Velásquez MD PCP - General Internal Medicine 10/29/11 06/19/15 Keisha Chavez MD [address] [place] [address] PCP - General Internal Medicine 06/20/15 04/20/16 Brett Velásquez MD PCP - General Internal Medicine 04/21/16 01/25/22 Brett Velásquez MD PCP - General Internal Medicine 01/26/22 02/15/22 Wayne Jaimes [address] [place] [address] PCP - General Internal Medicine 02/16/22 Reilly Baker MD, PHD [address] [place] [address] Surgeon Neurosurgery 01/20/22 Dafne Hilton MD [address] [place] [address] Specialist Cardiology 10/13/22 Desi Swenson NP [address] [place] [address] Cardiology 02/29/24 documented as of this encounter
--- OUTSIDE RECORDS SUMMARY | 2025-07-11 14:55 | XMS_ITS | Patient Health Record ---
Author Organization [facility] Address [address] [facility] [address] [place] [address] Care Team Providers Care Pulp And Paper Tester Name Role Phone Wayne Jaimes MD Primary Care Provider JORGE L Burks Unavailable [phone] Allergies No Known Allergies Reason For Referral No Information Medications Medication SIG (Take, Route, Frequency, Duration) Notes Start Date End Date Status Vitamin D Not-Taking Diclofenac Epolamine 1.3 % 1 patch as needed Externally Once a day; Duration: 30 days Not-Taking Atorvastatin Calcium 80 MG 1 tablet Orally Once a day Active Griseofulvin Ultramicrosize 250 MG 1 tablet after a meal Orally once a day; Duration: 90 days 01/13/2022 Not-Taking Aspirin 81 MG 1 tablet Orally Once a day Active Mupirocin 2 % 1 application Externally Twice a day; Duration: 30 days 01/13/2022 Not-Taking Lidocaine 5 % 1 patch remove after 12 hours Externally Once a day Active Itraconazole 100 MG 1 capsule after a me al Orally Once a day; Duration: 30 days 04/15/2022 Not-Taking Losartan Potassium 25 MG 1 tablet Orally 0.5 tab Once a day Active Multivitamin Not-Oseas ing Albuterol Sulfate 108 (90 Base) MCG/ACT 1 puff as needed Inhalation every 4 hrs Active Lactulose 10 GM 1 packet Orally bid Not-Taking Vitamin E 400 UNIT 1 capsule Orally Onc e a day Not-Taking Diclofenac Sodium 1 % as directed to the right foot Externally twice daily as needed for pain; Duration: 30 days Active Brilinta 90 MG 1 tablet Orally Twic e a day Active Tamsulosin HCl 0.4 MG 1 capsule Orally O nce a day Not-Taking Griseofulvin Ultramicrosize 250 MG 1 tablet after a meal Orally once a day; Duration: 45 days Not-Taking Gentamicin Sulfate 0.1 % 1 application Externally Once a day; Duration: 30 days apply to the right big toe and left 5th toe 01/10/2025 Active Jublia 10 % APPLY TOPICALLY ONCE DAILY Externally daily; Duration: 90 days 1 application to the right big toe, left 4th and 5th toes, and right 4th and 5th toes. 2 applications to the right big toe, 1 application a day for the smaller toes. Active predniSONE 20 MG 1 tablet Orally Once a day Not-Taking Ezetimibe 10 MG 1 tablet Orally Once a day Active Ciclopirox 8 % 1 application Externally Once a day Not-Taking Metoprolol Tartrate 25 MG 1 tablet with food Orally Twice a day Active Pantoprazole Sodium 20 MG 1 tablet Orall y Once a day Not-Taking Ketoconazole 2 % 1 application Externally Once a day Active hydrOXYzine HCl 50 MG 1 tablet as needed Orally once a day; Duration: 30 day(s) 01/20/2021 Not-Taking Voltaren Active Meclizine HCl 12.5 MG 2 tablets as neede d Orally 3 times daily Not-Taking Esomeprazole Magnesium 40 MG 1 capsule Orally Once a day Active Gabapentin 300 MG 1 capsule Orally bid Not-Taking traMADol HCl 50 MG 1 tablet as needed Orally Once a day Active Finasteride 5 MG 1 tablet Orally Once a day Not-Taking Sucralfate 1 GM/10ML 10 mL 1 hour before meals and at bedtime on an empty stomach Orally Four times a day Active Triamcinolone (oint)-Silicone Active Tacrolimus 0.1 % 1 application to the right foot rash Externally Once a day; Duration: 30 days Active Triamcinolone Acetonide 0.025 % 1 application Externally Once a day; Duration: 14 days for the rash on the back of the right ankle and heel 01/10/2025 Active Efinaconazole 10 % 1 application to the right big toe, left 4th and 5th toes, and right 4th and 5th toes. 2 applications to the right big toe, 1 application a day for the smaller toes. Externally Once a day; Duration: 90 days Active Lidocaine-Prilocaine 2.5-2.5 % APPLY 1 GRAM OF CREAM TOPICALLY TWICE DAILY; Duration: 38 Active Problems Problem Type SNOMED Code ICD Code Onset Dates Problem Status W/U Status Risk Notes Problem Localized, primary osteoarthritis of the ankle and/or foot (420106558) Primary osteoarthritis, right ankle and foot (M19.071) Active confirmed Problem Localized, primary osteoarthritis of the ankle and/or foot (188265060) Primary osteoarthritis, left 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) Active confirmed Problem Plantarflexion deformity of right foot (finding) (6004113459097852) Equinus contracture of right ankle (M24.571) Active confirmed Problem Psoriasis (9652586) Psoriasis (L40.9) Active confirmed Problem Lumbar radiculopathy (195522991) Lumbar radiculopathy, right (M54.16) Active confirmed Problem Chondrocalcinosis (495839724) Calcium pyrophosphate deposition disease (CPPD) (M11.20) Active confirmed Vital Signs Heart Rate 62 /min 05/30/2025 Temperature 97.1 degrees Fahrenheit 05/30/2025 Respiratory Rate 12 /min 05/30/2025 Height 5ft 6in in 05/30/2025 Weight 142.2 lbs 05/30/2025 BMI 22.95 kg/m2 05/30/2025 Procedures Procedure Date Ordered Date Performed Result Body Sit e DRAIN/INJECT, SMALL JOINT/BURSA 01/10/2025 N/A Encounters Encounter Location Date Provider Diagnosis [facility] [address] [address] 10/11/2024 JORGE L REDDY Onychomycosis B35.1 ; Calcium pyrophosphate deposition disease (CPPD) M11.20 ; Psoriasis L40.9 ; Hallux limitus of left foot M20.5X2 ; Hallux limitus of right foot M20.5X1 ; Lumbar radiculopathy, right M54.16 ; Achilles tendinitis, right leg M76.61 and Achilles tendinitis, left leg M76.62 [facility] [address] [address] 01/10/2025 JORGE L REDDY Onychomycosis B35.1 ; Calcium pyrophosphate deposition disease (CPPD) M11.20 ; Infection, Pseudomonas A49.8 ; Psoriasis L40.9 ; Hallux limitus of right foot M20.5X1 ; Hallux limitus of left foot M20.5X2 ; Lumbar radiculopathy, right M54.16 ; Pain in left foot M79.672 and Pain in right foot M79.671 [facility] [address] 05/30/2025 JOREG L REDDY Psoriasis L40.9 ; Onychomycosis B35.1 ; Calcium pyrophosphate deposition disease (CPPD) M11.20 ; Hallux limitus of right foot M20.5X1 ; Hallux limitus of left foot M20.5X2 ; Lumbar radiculopathy, right M54.16 ; Pain in left foot M79.672 and Pain in right foot M79.671 [facility] [address] 01/10/2025 JORGE L REDDY [facility] [address] 01/15/2025 JORGE L REDDY Onychomycosis B35.1 [facility] [address] 01/24/2025 JORGE L REDDY Onychomycosis B35.1 [facility] [address] 01/24/2025 JORGE L REDDY [facility] [address] 02/01/2025 JORGE L REDDY [facility] [address] 02/22/2025 JORGE L REDDY [facility] [address] 03/02/2025 JORGE L REDDY [facility] [address] 05/31/2025 JORGE L REDDY [facility] [address] 06/01/2025 JORGE L REDDY Onychomycosis B35.1 [facility] [address] [address] 06/01/2025 JORGE L REDDY [facility] [address] [facility] [address] [place] [address] 05/31/2025 JORGE L REDDY Assessments Encounter Date Diagnosis [...] - B35.1) 01/24/2025 Onychomycosis (ICD-10 - B35.1) 05/30/2025 Psoriasis (ICD-10 - L40.9) We discussed that CPPD and psoriasis can go hand in hand. He has another psoriasis flare today. Tacrolimus and triamcinolone refilled to apply to the right heel rash x 2 weeks. 06/01/2025 Onychomycosis (ICD-10 - B35.1) 05/30/2025 Onychomycosis (ICD-10 - B35.1) I reviewed with [...] is to continue to use this daily. 01/10/2025 Calcium pyrophosphate deposition disease (CPPD) (ICD-10 [...] he does not need another refill today. 05/30/2025 Hallux limitus of right foot (ICD-10 - M20.5X1) RX for diclofenac gel to apply to the right foot BID PRN pain. He did not need an injection today, discussed a possible injection next visit. 05/30/2025 Calcium pyrophosphate deposition disease (CPPD) (ICD-10 - [...] inserts to help offload the offending joints. 05/30/2025 Hallux limitus of left foot (ICD-10 - M20.5X2) I examined his orthotics which are still appropriate. We discussed his balance issues is not coming from his feet as the tread and wear on his shoes are equal. 01/10/2025 Hallux limitus of right foot (ICD-10 - M20.5X1) RX for diclofenac gel to apply to the right foot BID PRN pain. Consent was reviewed and signed by the patient for a steroid injection into the right 1st metatarsophalang eal joint. Pt agreed. 3cc total steroid injection was given into the right foot. Pt tolerated well. Post-Injection instructions were given to the patient. Pt instructed to ice/elevate the foot tonight. 10/11/2024 Hallux limitus of left foot (ICD-10 [...] and wear on his shoes are equal. 05/30/2025 Lumbar radiculopathy, right (ICD-10 - M54.16) We [...] under the right 4th and 5th toes. 05/30/2025 Pain in left foot (ICD-10 - M79.672) 01/10/2025 Lumbar radiculopathy, right (ICD-10 - M54.16) [...] He is in agreement with this plan. 05/30/2025 Pain in right foot (ICD-10 - M79.671) For the right leg lump, I recommended he wait 3 months and if not resolved, he should get an ultrasound by the knee to examine the area in question. He is in agreement with this plan. 01/10/2025 Pain in left foot (ICD-10 - M79.672) 01/10/2025 Pain in right foot (ICD-10 - M79.671) 10/11/2024 Achilles tendinitis, left leg (ICD-10 - M76.62) 01/10/2025 Other Plan Of Treatment Pending Test [...] Next Appt Details Provider Name:JORGE L REDDY, 09/03/2025 02:45:00 PM, [address] [address], [place], [address], Provider Name:JORGE L REDDY, 09/05/2025 02:45:00 PM, [address] [address], [place], [address], Insurance Providers Payer Name Payer Address Payer Phone Subscriber Number Group Number Insured Name Patient Relationship to Insured Coverage Start Date Coverage End Date [employer] care medicare community plan [address] [address] [place] [address] [id number] Laina Reynolds Self - patient is the [...] bilateral eye surgery 03/17/2022 cardiac stent 09/22/2024 cardiac bypass 04/2025 Hospitalization History Reason Date(Month/Year) cardiac bypass 04/2025 thyroidectomy
--- OUTSIDE RECORDS SUMMARY | 2025-07-11 14:55 | XMS_ITS | Encounter Summary ---
Author Organization [employer] [facility] Prior to 05/12/2024 Address [address] [place] [address] Care Team Providers Care Electric Locomotive Firer/Fireman Name Role Phone Brett Velásquez MD Primary Care Provider Reilly Stewart MD, PHD Unavailable Brett España MD Primary Care Provider Wayne Dickson Primary Care Provider [phone] Dafne Hilton MD Unavailable [phone] Desi Swenson NP Unavailable [phone] Encounter Details Date Type Department Care Team Description 04/22/2020 Orders Only Medical Records [address] [place] [address] Vladislav Antunez DO Social History Tobacco Use [...] Date Type Specialty Care Team Description 04/29/2027 Typists Supervisor Report Abstract, Provider documented as of this encounter Procedures Procedure Name Priority Date/Time Associated Diagnosis Comments OUTSIDE LAB Routine 04/21/2020 documented in this encounter Results * OUTSIDE LAB (04/21/2020) Vladislav Antunez DO LAB documented in this encounter Visit Diagnoses Not on filedocumented in this encounter Care Teams Electric Locomotive Firer/Fireman Relationship Specialty Start Date End Date Brett Velásquez MD PCP - General Internal Medicine 04/21/16 01/25/22 Brett Velásquez MD PCP - General Internal Medicine 01/26/22 02/15/22 Wayne Jaimes [address] [place] [address] PCP - General Internal Medicine 02/16/22 Reilly Baker MD, PHD Surgeon Neurosurgery 01/20/22 Dafne Hilton MD [address] [place] [address] Specialist Cardiology 10/13/22 Desi Swenson NP [address] [place] [address] Cardiology 02/29/24 documented as of this encounter
--- OUTSIDE RECORDS SUMMARY | 2025-07-11 14:55 | XMS_ITS | Encounter Summary ---
Author Organization [facility] [employer] [facility] Prior to 05/12/2024 Address [address] [place] [address] Care Team Providers Care Shot Packer Name Role Phone Reilly Baker MD, PHD Unavailable Unava ilWayne Osborne Primary Care Provider [phone] Dafne Hilton MD Unavailable [phone] Desi Swenson NP Unavailable [phone] Encounter Details Date Type Department Care Team Description 10/12/2022 Walk In Clinic Visit Medical Records [address] [place] [address] Clinic, [facility] Walk-In [address] [place] [address] Social History Tobacco Use Types Packs/Day Years [...] Type Specialty Care Team Description 04/29/2027 Financial Sales Assistant Report Abstract, Provider documented as of this encounter Visit Diagnoses Not on filedocumented in this encounter Care Teams Shot Packer Relationship Specialty Start Date End Date Wayne JaimesUsama [address] [place] [address] PCP - General Internal Medicine 02/16/22 Reilly Baker MD, PHD Surgeon Neurosurgery 01/20/22 Dafne Hilton MD [address] [place] [address] Specialist Cardiology 10/13/22 Desi Swenson NP [address] [place] [address] Cardiology 02/29/24 documented as of this encounter
--- OUTSIDE RECORDS SUMMARY | 2025-07-11 14:55 | XMS_ITS | Encounter Summary ---
Author Organization [facility] [employer] [facility] Prior to 05/12/2024 Address [address] [place] [address] Care Team Providers Care Ceramic Plater Name Role Phone Reilly Baker MD, PHD Unavailable Unava ilable Wayne Jaimes Primary Care Provider [phone] Dafne Hilton MD Unavailable [phone] Desi Swenson NP Unavailable [phone] Reason for Visit * Reason Onset Date Comments Medication 08/26/2023 Encounter Details Date Type Department Care Team Description 08/26/2023 Refill Gastroenterology [address] [place] [id number] Yuliana Auguste MD [address] [place], [place] [id number] Medication Social History Tobacco Use Types Packs/Day [...] Type Specialty Care Team Description 04/29/2027 Care Transitions Manager Report Abstract, Provider documented as of this encounter Visit Diagnoses Not on filedocumented in this encounter Care Teams Ceramic Plater Relationship Specialty Start Date End Date Wayne Jaimes [address] [place], [place] [id number] PCP - General Internal Medicine 02/16/22 Reilly Baker MD, PHD Surgeon Neurosurgery 01/20/22 Dafne Hilton MD [address] [place] [address] Specialist Cardiology 10/13/22 Desi Swenson NP [address] [place] [address] Cardiology 02/29/24 documented as of this encounter
--- OUTSIDE RECORDS SUMMARY | 2025-07-11 14:55 | XMS_ITS | Encounter Summary ---
Author Organization [facility] [facility] Prior to 05/12/2024 Address [address] [place] [address] Care Team Providers Care Implementation Lead Name Role Phone Reilly Baker MD, PHD Unavailable Unava ilable Wayne Jaimes Primary Care Provider [phone] Dafne Hilton MD Unavailable [phone] Desi Swenson NP Unavailable [phone] Encounter Details Date Type Department Care Team Description 12/03/2022 Senior Data Architect Report Medical Records [address] [place] [address] Vladislav Antunez DO Social History Tobacco Use [...] Type Specialty Care Team Description 04/29/2027 Senior Data Architect Report Abstract, Provider documented as of this encounter Visit Diagnoses Not on filedocumented in this encounter Care Teams Implementation Lead Relationship Specialty Start Date End Date Wayne Jaimes [address] [place] [address] PCP - General Internal Medicine 02/16/22 Reilly Baker MD, PHD Surgeon Neurosurgery 01/20/22 Dafne Hilton MD [address] [place] [address] Specialist Cardiology 10/13/22 Desi Swenson NP [address] [place] [address] Cardiology 02/29/24 documented as of this encounter
--- OUTSIDE RECORDS SUMMARY | 2025-07-11 14:55 | XMS_ITS | Encounter Summary ---
Author Organization [facility] Prior to 05/12/2024 Address [address] [place] [address] Care Team Providers Care Die Maintenance Name Role Phone Brett Velásquez MD Primary Care Provider Keisha Luna MD Primary Care Provider [phone] Brett Velásquez MD Primary Care Provider Reilly Stewart MD, PHD Unavailable Unaar ilBrett Bailon MD Primary Care Provider Wayne Dickson Primary Care Provider [phone] Dafne Hilton MD Unavailable [phone] Desi Swenson NP Unavailable [phone] Encounter Details Date Type Department Care Team Description 11/20/2013 Government Program Manager Report Medical Records [address] [place] [address] Neurosurgery, [address] [place] [address] Social History Tobacco Use Types Packs/Day Years [...] Date Type Specialty Care Team Description 04/29/2027 Government Program Manager Report Abstract, Provider documented as of this encounter Visit Diagnoses Not on filedocumented in this encounter Care Teams Die Maintenance Relationship Specialty Start Date End Date Brett Velásquez MD PCP - General Internal Medicine 10/29/11 06/19/15 Keisha Chavez MD [address] [place] [address] PCP - General Internal Medicine 06/20/15 04/20/16 Brett Velásquez MD PCP - General Internal Medicine 04/21/16 01/25/22 Brett Velásquez MD PCP - General Internal Medicine 01/26/22 02/15/22 Wayne Jaimes [address] [place] [address] PCP - General Internal Medicine 02/16/22 Reilly Baker MD, PHD [address] [place] [address] Surgeon Neurosurgery 01/20/22 Dafne Hilton MD [address] [place] [address] Specialist Cardiology 10/13/22 Desi Swenson NP [address] [place] [address] Cardiology 02/29/24 documented as of this encounter
--- OUTSIDE RECORDS SUMMARY | 2025-07-11 14:55 | XMS_ITS | Encounter Summary ---
Author Organization [facility] Prior to 05/12/2024 Address [address] [place] [address] Care Team Providers Care Food Service Team Member Name Role Phone Brett Velásquez MD Primary Care Provider Reilly Stewart MD, PHD Unavailable Unava ilBrett Bailon MD Primary Care Provider Wayne Dickson Primary Care Provider [phone] Dafne Hilton MD Unavailable [phone] Desi Swenson NP Unavailable [phone] Encounter Details Date Type Department Care Team Description 08/10/2018 Nut Cracker Report Medical Records [address] [place] [address] Aleksandar Huggins MD Social History Tobacco Use [...] Date Type Specialty Care Team Description 04/29/2027 Nut Cracker Report Abstract, Provider documented as of this encounter Visit Diagnoses Not on filedocumented in this encounter Care Teams Food Service Team Member Relationship Specialty Start Date End Date Brett Velásquez MD PCP - General Internal Medicine 04/21/16 01/25/22 Brett Velásquez MD PCP - General Internal Medicine 01/26/22 02/15/22 Wayne Jaimes [address] [place] [address] PCP - General Internal Medicine 02/16/22 Reilly Baker MD, PHD Surgeon Neurosurgery 01/20/22 Dafne Hilton MD [address] [place] [address] Specialist Cardiology 10/13/22 Desi Swenson NP [address] [place] [address] Cardiology 02/29/24 documented as of this encounter
--- OUTSIDE RECORDS SUMMARY | 2025-07-11 14:55 | XMS_ITS | Clinical Summary ---
Author Organization [facility] Address [address] [place] [address] Phone Care Team Providers Care Firer Helper Name Role Phone Vitor Mclean MD Primary Care Provider [phone] Allergies No known active allergies Medications diclofenac [...] this topic Medical Devices Implanted Type Area Candy Department Manager Device Identifier Shelf Expiration Date Model / Serial / Lot Composite Augment 1.0 Cc Injectable Radiesse Vocal Cord Prolaryn Gel Nonpyrogenic - [id number] Implanted:Qty: 1 on 12/15/2019 by Vipin Cherry MD at [facility] Left: Vocal Cord [employer] 06/29/2021 [id number] / [id number] / [id number] Insurance MEDICARE REPLACEMENT MEDICARE REPLACEMENT MEDICARE REPLACEMENT MEDICARE REPLACEMENT MEDICARE REPLACEMENT MEDICARE REPLACEMENT Care Teams Firer Helper Relationship Specialty Start Date End Date Vitor Mclean MD [address] [place] [address] PCP - General Pulmonary Disease 12/14/19 Additional Source Comments The information contained in this document represents components of the legal health record. It is not the complete legal health record.[facility]
--- OUTSIDE RECORDS SUMMARY | 2025-07-11 14:55 | XMS_ITS | Encounter Summary ---
Author Organization [facility] Prior to 05/12/2024 Address [address] [place] [address] Care Team Providers Care Treating Plant Supervisor Name Role Phone Reilly Baker MD, PHD Unavailable Unava Wayne Blackman Primary Care Provider [phone] Dafne Hilton MD Unavailable [phone] Desi Swenson NP Unavailable [phone] Encounter Details Date Type Department Care Team Description 10/13/2022 Telephone [facility] [address] [phone] Ankita Yanes MD [address] [id number] Social History Tobacco Use Types Packs/Day Years [...] Type Specialty Care Team Description 04/29/2027 Boiling Tub Operator Report Abstract, Provider documented as of this encounter Visit Diagnoses Not on filedocumented in this encounter Care Teams Treating Plant Supervisor Relationship Specialty Start Date End Date Wayne Jaimes [address] [place] [address] PCP - General Internal Medicine 02/16/22 Reilly Baker MD, PHD Surgeon Neurosurgery 01/20/22 Dafne Hilton MD [address] [place] [address] Specialist Cardiology 10/13/22 Desi Swenson NP [address] [place] [address] Cardiology 02/29/24 documented as of this encounter
--- OUTSIDE RECORDS SUMMARY | 2025-07-11 14:55 | XMS_ITS | Encounter Summary ---
Author Organization [facility] Prior to 05/12/2024 Address [address] [place] [address] Care Team Providers Care Orthodontic Band Maker Name Role Phone Brett Velásquez MD Primary Care Provider Keisha Luna MD Primary Care Provider [phone] Brett Velásquez MD Primary Care Provider Reilly Stewart MD, PHD Unavailable Unava ilable Brett Velásquez MD Primary Care Provider Wayne Dickson Primary Care Provider [phone] Dafne Hliton MD Unavailable [phone] Desi Swenson NP Unavailable [phone] Encounter Details Date Type Department Care Team Description 02/28/2013 Telemarketing Sales Representative Report Medical Records [address] [place] [address] Rehab., [place] Social History Tobacco Use Types Packs/Day Years [...] Date Type Specialty Care Team Description 04/29/2027 Telemarketing Sales Representative Report Abstract, Provider documented as of this encounter Visit Diagnoses Not on filedocumented in this encounter Care Teams Orthodontic Band Maker Relationship Specialty Start Date End Date Brett Velásquez MD PCP - General Internal Medicine 10/29/11 06/19/15 Keisha Chavez MD [address] [place] [address] PCP - General Internal Medicine 06/20/15 04/20/16 Brett Velásquez MD PCP - General Internal Medicine 04/21/16 01/25/22 Brett Velásquez MD PCP - General Internal Medicine 01/26/22 02/15/22 Wayne Jaimes [address] [place] [address] PCP - General Internal Medicine 02/16/22 Reilly Baker MD, PHD [address] [place] [address] Surgeon Neurosurgery 01/20/22 Dafne Hilton MD [address] [place] [address] Specialist Cardiology 10/13/22 Desi Swenson NP [address] [place] [address] Cardiology 02/29/24 documented as of this encounter
--- OUTSIDE RECORDS SUMMARY | 2025-07-11 14:55 | XMS_ITS | Encounter Summary ---
Author Organization [employer] [facility] Prior to 05/12/2024 Address [address] [place] [address] Care Team Providers Care Colleter Name Role Phone Reilly Baker MD, PHD Unavailable Unava ilable Wayne Jaimes Primary Care Provider [phone] Dafne Hilton MD Unavailable [phone] Desi Swenson NP Unavailable [phone] Encounter Details Date Type Department Care Team Description 01/04/2023 Hospital Medical Records [address] [place] [address] Vladislav Antunez DO Social History Tobacco Use [...] Date Type Specialty Care Team Description 04/29/2027 Brush Clearing Laborer Report Abstract, Provider documented as of this encounter Visit Diagnoses Not on filedocumented in this encounter Care Teams Colleter Relationship Specialty Start Date End Date Wayne Jaimes [address] [place], [place] [id number] PCP - General Internal Medicine 02/16/22 Reilly Baker MD, PHD Surgeon Neurosurgery 01/20/22 Dafne Hilton MD [address] [place], [place] [address] Specialist Cardiology 10/13/22 Desi Swenson NP [address] [place] [address] Cardiology 02/29/24 documented as of this encounter
--- OUTSIDE RECORDS SUMMARY | 2025-07-11 14:55 | XMS_ITS | Encounter Summary ---
Author Organization [facility] Prior to 05/12/2024 Address [address] [place] [address] Care Team Providers Care Cutting Department Supervisor Name Role Phone Reilly Baker MD, PHD Unavailable Unava Wayne Blackman Primary Care Provider [phone] Dafne Hilton MD Unavailable [phone] Desi Swenson NP Unavailable [phone] Encounter Details Date Type Department Care Team Description 08/19/2023 Telephone Gastroenterology - [address] [place] [address] Kevin Oliva PA-C Social History [...] also ordered a barium swallow done at [facility] and states that the same finding [...] will also need to have a Kiswahili rigging man. Please advise documented in this encounter Plan of Treatment Upcoming Encounters Date Type Specialty Care Team Description 04/29/2027 Steel Rule Die Maker Apprentice Report Abstract, Provider documented as of this encounter Visit Diagnoses Not on filedocumented in this encounter Care Teams Cutting Department Supervisor Relationship Specialty Start Date End Date Wayne Jaimes [address] [place] [address] PCP - General Internal Medicine 02/16/22 Reilly Baker MD, PHD Surgeon Neurosurgery 01/20/22 Dafne Hilton MD [address] [place] [address] Specialist Cardiology 10/13/22 Desi Swenson NP [address] [place] [address] Cardiology 02/29/24 documented as of this encounter
--- OUTSIDE RECORDS SUMMARY | 2025-07-11 14:55 | XMS_ITS | Encounter Summary ---
Author Organization [facility] Prior to 05/12/2024 Address [address] [place] [address] Care Team Providers Care Tire Bagger Name Role Phone Brett Velásquez MD Primary Care Provider Reilly Stewart MD, PHD Unavailable Brett España MD Primary Care Provider Wayne Dickson Primary Care Provider [phone] Dafne Hilton MD Unavailable [phone] Desi Swenson NP Unavailable [phone] Encounter Details Date Type Department Care Team Description 09/17/2020 [facility] Medical Records [address] [place] [address] Sylvain Lopez MD Social History Tobacco Use [...] Date Type Specialty Care Team Description 04/29/2027 Configuration Developer Report Abstract, Provider documented as of this encounter Visit Diagnoses Not on filedocumented in this encounter Care Teams Tire Bagger Relationship Specialty Start Date End Date Brett Velásquez MD PCP - General Internal Medicine 04/21/16 01/25/22 Brett Velásquez MD PCP - General Internal Medicine 01/26/22 02/15/22 Wayne Jaimes [address] [place] [address] PCP - General Internal Medicine 02/16/22 Reilly Baker MD, PHD Surgeon Neurosurgery 01/20/22 Dafne Hilton MD [address] [place] [address] Specialist Cardiology 10/13/22 Desi Swenson NP [address] [place] [address] Cardiology 02/29/24 documented as of this encounter
--- OUTSIDE RECORDS SUMMARY | 2025-07-11 14:55 | XMS_ITS | Encounter Summary ---
Author Organization [facility] Prior to 05/12/2024 Address [address] [place] [address] Care Team Providers Care Garage Door Installer Name Role Phone Brett Velásquez MD Primary Care Provider Reilly Stewart MD, PHD Unavailable Unava ilBrett Bailon MD Primary Care Provider Wayne Dickson Primary Care Provider [phone] Dafne Hilton MD Unavailable [phone] Desi Swenson NP Unavailable [phone] Encounter Details Date Type Department Care Team Description 03/31/2017 Nursing Unit Clerk Report Medical Records [address] [place] [address] Vipin Rhoades Social History Tobacco Use Types [...] Type Specialty Care Team Description 04/29/2027 Nursing Unit Clerk Report Abstract, Provider documented as of this encounter Visit Diagnoses Not on filedocumented in this encounter Care Teams Garage Door Installer Relationship Specialty Start Date End Date Brett Velásquez MD PCP - General Internal Medicine 04/21/16 01/25/22 Brett Velásquez MD PCP - General Internal Medicine 01/26/22 02/15/22 Wayne Jaimes [address] [place] [address] PCP - General Internal Medicine 02/16/22 Reilly Baker MD, PHD Surgeon Neurosurgery 01/20/22 Dafne Hilton MD [address] [place] [address] Specialist Cardiology 10/13/22 Desi Swenson NP [address] [place] [address] Cardiology 02/29/24 documented as of this encounter
--- OUTSIDE RECORDS SUMMARY | 2025-07-11 14:55 | XMS_ITS | Encounter Summary ---
Author Organization [facility] Prior to 05/12/2024 Address [address] [place] [address] Care Team Providers Care Assistant Commissioner Name Role Phone Reilly Baker MD, PHD Unavailable Unava Wayne Blackman Primary Care Provider [phone] Dafne Hilton MD Unavailable [phone] Desi Swenson NP Unavailable [phone] Reason for Visit * Reason Onset Date Comments Provider Call Back 08/17/2023 Encounter Details Date Type Department Care Team Description 08/17/2023 Telephone Gastroenterology - [address] [place] [phone] Kevin Oliva PA-C Provider Call Back [...] Type Specialty Care Team Description 04/29/2027 Supervisor Litharge Report Abstract, Provider documented as of this encounter Visit Diagnoses Not on filedocumented in this encounter Care Teams Assistant Commissioner Relationship Specialty Start Date End Date Wayne Jaimes [address] [place] [address] PCP - General Internal Medicine 02/16/22 Reilly Baker MD, PHD Surgeon Neurosurgery 01/20/22 Dafne Hilton MD [address] [place] [address] Specialist Cardiology 10/13/22 Desi Swenson NP [address] [place] [address] Cardiology 02/29/24 documented as of this encounter
--- OUTSIDE RECORDS SUMMARY | 2025-07-11 14:55 | XMS_ITS | Encounter Summary ---
Author Organization [facility] Prior to 05/12/2024 Address [address] [place] [address] Care Team Providers Care Licensed Sales Assistant Name Role Phone Brett Velásquez MD Primary Care Provider Keisha Luna MD Primary Care Provider [phone] Brett Velásquez MD Primary Care Provider Reilly Stewart MD, PHD Unavailable Unava ilable Brett Velásquez MD Primary Care Provider Wayne Dickson Primary Care Provider Dafne Hilton MD Unavailable [phone] Desi Swenson NP Unavailable [phone] Encounter Details Date Type Department Care Team Description 11/20/2013 Release of Information Medical Records [address] [place] [address] Abstract, Provider Social History Tobacco Use Types [...] Type Specialty Care Team Description 04/29/2027 District Captain Report Abstract, Provider documented as of this encounter Visit Diagnoses Not on filedocumented in this encounter Care Teams Licensed Sales Assistant Relationship Specialty Start Date End Date Brett Velásquez MD PCP - General Internal Medicine 10/29/11 06/19/15 Keisha Chavez MD [address] [place] [address] PCP - General Internal Medicine 06/20/15 04/20/16 Brett Velásquez MD PCP - General Internal Medicine 04/21/16 01/25/22 Brett Velásquez MD PCP - General Internal Medicine 01/26/22 02/15/22 Wayne Jaimes [address] [place] [address] PCP - General Internal Medicine 02/16/22 Reilly Baker MD, PHD [address] [place] [address] Surgeon Neurosurgery 01/20/22 Dafne Hilton MD [address] [place] [address] Specialist Cardiology 10/13/22 Desi Swenson NP [address] [place] [address] Cardiology 02/29/24 documented as of this encounter
--- OUTSIDE RECORDS SUMMARY | 2025-07-11 14:55 | XMS_ITS | Encounter Summary ---
Author Organization [facility] Prior to 05/12/2024 Address [address] [place] [address] Care Team Providers Care Band Aid Machine Operator Name Role Phone Reilly Baker MD, PHD Unavailable Unava ilWayne Osborne Primary Care Provider [phone] Dafne Hilton MD Unavailable [phone] Desi Swenson NP Unavailable [phone] Encounter Details Date Type Department Care Team Description 09/30/2022 Local Delivery Driver Report Medical Records [address] [place] [address] Social History Tobacco Use Types Packs/Day Years [...] Date Type Specialty Care Team Description 04/29/2027 Local Delivery Driver Report Abstract, Provider documented as of this encounter Visit Diagnoses Not on filedocumented in this encounter Care Teams Band Aid Machine Operator Relationship Specialty Start Date End Date Wayne Jaimes [address] [place], [place] [address] PCP - General Internal Medicine 02/16/22 Reilly Baker MD, PHD Surgeon Neurosurgery 01/20/22 Dafne Hilton MD [address] [place] [address] Specialist Cardiology 10/13/22 Desi Swenson NP [address] [place], [place] [address] Cardiology 02/29/24 documented as of this encounter
--- OUTSIDE RECORDS SUMMARY | 2025-07-11 14:56 | XMS_ITS | Encounter Summary ---
Author Organization [facility] Prior to 05/12/2024 Address [address] [place] [address] Care Team Providers Care Deck Supervisor Name Role Phone Reilly Baker MD, PHD Unavailable Unava ilable Wayne Jaimes Primary Care Provider [phone] Dafne Hilton MD Unavailable [phone] Desi Swenson NP Unavailable [phone] Encounter Details Date Type Department Care Team Description 06/07/2023 Hospital Medical Records [address] [place] [address] Vladislav Antunez DO Social History Tobacco Use [...] Date Type Specialty Care Team Description 04/29/2027 Courseware Developer Report Abstract, Provider documented as of this encounter Visit Diagnoses Not on filedocumented in this encounter Care Teams Deck Supervisor Relationship Specialty Start Date End Date Wayne Jaimes [address] [place] [address] PCP - General Internal Medicine 02/16/22 Reilly Baker MD, PHD Surgeon Neurosurgery 01/20/22 Dafne Hilton MD [address] [place] [address] Specialist Cardiology 10/13/22 Desi Swenson NP [address] [place] [address] Cardiology 02/29/24 documented as of this encounter
--- OUTSIDE RECORDS SUMMARY | 2025-07-11 14:56 | XMS_ITS | Encounter Summary ---
Author Organization [facility] Prior to 05/12/2024 Address [address] [place] [address] Care Team Providers Care Mailer Name Role Phone Reilly Baker MD, PHD Unavailable Unava Wayne Blackman Primary Care Provider [phone] Dafne Hilton MD Unavailable Desi Swenson NP Unavailable [phone] Encounter Details Date Type Department Care Team Description 09/30/2023 Pt. Non Urgent Medic al Question Gastroenterology - [address] [place] [phone] Kevin Oliva PA-C Social History Tobacco [...] Specialty Care Team Description 04/29/2027 Manager Of Revenue Report Abstract, Provider documented as of this encounter Visit Diagnoses Not on filedocumented in this encounter Care Teams Mailer Relationship Specialty Start Date End Date Wayne Jaimes [address] [place] [address] PCP - General Internal Medicine 02/16/22 Reilly Baker MD, PHD Surgeon Neurosurgery 01/20/22 Dafne Hilton MD [address] [place] [address] Specialist Cardiology 10/13/22 Desi Swenson NP [address] [place] [address] Cardiology 02/29/24 documented as of this encounter
--- OUTSIDE RECORDS SUMMARY | 2025-07-11 14:56 | XMS_ITS | Encounter Summary ---
Author Organization [facility] Prior to 05/12/2024 Address [address] [place] [address] Care Team Providers Care Epic Prelude Analyst Name Role Phone Reilly Baker MD, PHD Unavailable Unava Wayne Blackman Primary Care Provider [phone] Dafne Hilton MD Unavailable [phone] Desi Swenson NP Unavailable [phone] Encounter Details Date Type Department Care Team Description 02/15/2024 Orders Only Gastroenterology - [address] [place] [address] Kevin Oliva PA-C Gastroesophageal reflux [...] Date Type Specialty Care Team Description 04/29/2027 Galley Hand Report Abstract, Provider documented as of [...] type documented in this encounter Care Teams Epic Prelude Analyst Relationship Specialty Start Date End Date Wayne Jaimes [address] [place] [address] PCP - General Internal Medicine 02/16/22 Reilly Baker MD, PHD Surgeon Neurosurgery 01/20/22 Dafne Hilton MD [address] [place] [address] Specialist Cardiology 10/13/22 Desi Swenson NP [address] [place] [address] Cardiology 02/29/24 documented as of this encounter
--- OUTSIDE RECORDS SUMMARY | 2025-07-11 14:56 | XMS_ITS | Encounter Summary ---
Author Organization [facility] Prior to 05/12/2024 Address [address] [place] [address] Care Team Providers Care Energy Sales Consultant Name Role Phone Brett Velásquez MD Primary Care Provider Reilly Stewart MD, PHD Unavailable Unava ilBrett Bailon MD Primary Care Provider Wayne Dickson Primary Care Provider [phone] Dafne Hilton MD Unavailable [phone] Desi Swenson NP Unavailable [phone] Encounter Details Date Type Department Care Team Description 01/23/2019 Release of Information Medical Records [address] [place] [address] Abstract, Provider Social History Tobacco Use Types [...] Date Type Specialty Care Team Description 04/29/2027 Preschool Paraprofessional Report Abstract, Provider documented as of this encounter Visit Diagnoses Not on filedocumented in this encounter Care Teams Energy Sales Consultant Relationship Specialty Start Date End Date Brett Velásquez MD PCP - General Internal Medicine 04/21/16 01/25/22 Brett Velásquez MD PCP - General Internal Medicine 01/26/22 02/15/22 Wayne Jaimes [address] [place] [address] PCP - General Internal Medicine 02/16/22 Reilly Baker MD, PHD Surgeon Neurosurgery 01/20/22 Dafne Hilton MD [address] [place] [address] Specialist Cardiology 10/13/22 Desi Swenson NP [address] [place] [address] Cardiology 02/29/24 documented as of this encounter
--- OUTSIDE RECORDS SUMMARY | 2025-07-11 14:56 | XMS_ITS | Encounter Summary ---
Author Organization [facility] Prior to 05/12/2024 Address [address] [place] [address] Care Team Providers Care Bobbin Inspector Name Role Phone Brett Velásquez MD Primary Care Provider Reilly Stewart MD, PHD Unavailable Brett España MD Primary Care Provider Wayne Dickson Primary Care Provider [phone] Dafne Hilton MD Unavailable [phone] Desi Swenson NP Unavailable [phone] Encounter Details Date Type Department Care Team Description 01/13/2022 Tea Bag Machine Tender Report Medical Records [address] [place] [address] Desi Li DPM Social History Tobacco Use [...] Date Type Specialty Care Team Description 04/29/2027 Tea Bag Machine Tender Report Abstract, Provider documented as of this encounter Visit Diagnoses Not on filedocumented in this encounter Care Teams Bobbin Inspector Relationship Specialty Start Date End Date Brett Velásquez MD PCP - General Internal Medicine 04/21/16 01/25/22 Brett Velásquez MD PCP - General Internal Medicine 01/26/22 02/15/22 Wayne Jaimes [address] [place] [address] PCP - General Internal Medicine 02/16/22 Reilly Baker MD, PHD Surgeon Neurosurgery 01/20/22 Dafne Hilton MD [address] [place] [address] Specialist Cardiology 10/13/22 Desi Swenson NP [address] [place] [address] Cardiology 02/29/24 documented as of this encounter
--- OUTSIDE RECORDS SUMMARY | 2025-07-11 14:56 | XMS_ITS | Encounter Summary ---
Author Organization [facility] Prior to 05/12/2024 Address [address] [place] [address] Care Team Providers Care Aviation Electrician Name Role Phone Brett Velásquez MD Primary Care Provider Keisha Luna MD Primary Care Provider [phone] Brett Velásquez MD Primary Care Provider Reilly Stewart MD, PHD Unavailable Unava ilable Brett Velásquez MD Primary Care Provider Wayne Dickson Primary Care Provider [phone] Dafne Hilton MD Unavailable [phone] Desi Swenson NP Unavailable [phone] Encounter Details Date Type Department Care Team Description 05/02/2014 Lineworker Report Medical Records [address] [place] [address] Vipin Cowart Social History Tobacco Use Types [...] Date Type Specialty Care Team Description 04/29/2027 Lineworker Report Abstract, Provider documented as of this encounter Visit Diagnoses Not on filedocumented in this encounter Care Teams Aviation Electrician Relationship Specialty Start Date End Date Brett Velásquez MD PCP - General Internal Medicine 10/29/11 06/19/15 Keisha Chavez MD [address] [place] [address] PCP - General Internal Medicine 06/20/15 04/20/16 Brett Velásquez MD PCP - General Internal Medicine 04/21/16 01/25/22 Brett Velásquez MD PCP - General Internal Medicine 01/26/22 02/15/22 Wayne Jaimes [address] [place], [place] [address] PCP - General Internal Medicine 02/16/22 Reilly Baker MD, PHD [address] [place] [address] Surgeon Neurosurgery 01/20/22 Dafne Hilton MD [address] [place] [address] Specialist Cardiology 10/13/22 Desi Swenson NP [address] [place] [address] Cardiology 02/29/24 documented as of this encounter
--- OUTSIDE RECORDS SUMMARY | 2025-07-11 14:56 | XMS_ITS | Encounter Summary ---
Author Organization [facility] Prior to 05/12/2024 Address [address] [place] [address] Care Team Providers Care Track Rider Name Role Phone Brett Velásquez MD Primary Care Provider Reilly Stewart MD, PHD Unavailable Brett España MD Primary Care Provider Wayne Dickson Primary Care Provider [phone] Dafne Hilton MD Unavailable [phone] Desi Swenson NP Unavailable [phone] Encounter Details Date Type Department Care Team Description 04/22/2021 Director Of Marketing Report Medical Records [address] [place] [address] Desi Li DPM Social History Tobacco Use [...] Specialty Care Team Description 04/29/2027 Director Of Marketing Report Abstract, Provider documented as of this encounter Visit Diagnoses Not on filedocumented in this encounter Care Teams Track Rider Relationship Specialty Start Date End Date Brett Velásquez MD PCP - General Internal Medicine 04/21/16 01/25/22 Brett Velásquez MD PCP - General Internal Medicine 01/26/22 02/15/22 Wayne Jaimes [address] [place] [address] PCP - General Internal Medicine 02/16/22 Reilly Baker MD, PHD Surgeon Neurosurgery 01/20/22 Dafne Hilton MD [address] [place] [address] Specialist Cardiology 10/13/22 Desi Swenson NP [address] [place] [address] Cardiology 02/29/24 documented as of this encounter
--- OUTSIDE RECORDS SUMMARY | 2025-07-11 14:56 | XMS_ITS | Clinical Summary ---
Author Organization [facility] Prior to 12/09/24 Address [address] [place] [address] Care Team Providers Care Lactation Specialist Name Role Phone Brett Velásquez MD Primary Care Provider Allergies No known active allergies Medications Medication Sig Dispensed Refills Start Date End Date Status Cholecalciferol 50 MCG (1999) TABS Take 2,000 Units by mouth every [...] age to complete this topic Care Teams Lactation Specialist Relationship Specialty Start Date End Date Brett Velásquez MD PCP - General Internal Medicine 10/20/17
--- OUTSIDE RECORDS SUMMARY | 2025-07-11 14:56 | XMS_ITS | Encounter Summary ---
Author Organization [facility] Prior to 05/12/2024 Address [address] [place] [address] Care Team Providers Care President Mortgage Company Name Role Phone Brett Velásquez MD Primary Care Provider Keisha Luna MD Primary Care Provider [phone] Brett Velásquez MD Primary Care Provider Reilly Stewart MD, PHD Unavailable Unane ilable Brett Velásquez MD Primary Care Provider Wayne Dickson Primary Care Provider [phone] Dafne Hilton MD Unavailable [phone] Desi Sewnson NP Unavailable [phone] Encounter Details Date Type Department Care Team Description 04/26/2014 Ad Operations Associate Report Medical Records [address] [place] [id number] Kareem Grier PA-C Social History Tobacco Use [...] Date Type Specialty Care Team Description 04/29/2027 Ad Operations Associate Report Abstract, Provider documented as of this encounter Visit Diagnoses Not on filedocumented in this encounter Care Teams President Mortgage Company Relationship Specialty Start Date End Date Brett Velásquez MD PCP - General Internal Medicine 10/29/11 06/19/15 Keisha Chavez MD [address] [place] [address] PCP - General Internal Medicine 06/20/15 04/20/16 Brett Velásquez MD PCP - General Internal Medicine 04/21/16 01/25/22 Brett Velásquez MD PCP - General Internal Medicine 01/26/22 02/15/22 Wayne Jaimes [address] [place] [address] PCP - General Internal Medicine 02/16/22 Reilly Baker MD, PHD [address] [place] [address] Surgeon Neurosurgery 01/20/22 Dafne Hilton MD [address] [place] [address] Specialist Cardiology 10/13/22 Desi Swenson NP [address] [place] [address] Cardiology 02/29/24 documented as of this encounter
--- OUTSIDE RECORDS SUMMARY | 2025-07-11 14:56 | XMS_ITS | Clinical Summary ---
Author Organization [facility] Prior to 05/12/2024 Address [address] [place] [address] Care Team Providers Care Tube Filler Name Role Phone Reilly Baker MD, PHD Unavailable Unava Wayne Blackman Primary Care Provider [phone] Dafne Hilton MD Unavailable [phone] Desi Swenson NP Unavailable [phone] Allergies No known active allergies Medications Medication [...] examination 04/30/2023 Coronary artery disease invo lving [place] coronary artery of [place] heart with angina pectoris 12/17/2022 Last Assessment [...] has been considering following up with a dialysis biomed technician. I have encouraged him to do so. [...] Type Specialty Care Team Description 04/29/2027 Tool Engine Lathe Set Up Operator Report Abstract, Provider Health Maintenance Due Date Last Done Comments DEPRESSION SCREEN 04/06/2024 04/06/2023 (Co mpleted), 10/29/2021, 07/09/2021 (Completed) FALL RISK ASSESSMENT 04/06/2024 04/06/2023 (Completed), 07/09/2021 (Completed) DEPRESSION SCREENING/FOLLOWUP 07/12/2024 (Completed), 10/29/2021 (Completed), 07/09/2021 (Completed), Additional history exists Covid-19 Vaccine (2022-08 4 season) 2025 04/23/2021, 10/22/2020, 10/22/2020, Additional [...] C SCREENING Completed 04/18/2020, 013 Care Teams Tube Filler Relationship Specialty Start Date End Date Wayne Jaimes [address] [place] [address] PCP - General Internal Medicine 02/16/22 Reilly Baker MD, PHD Surgeon Neurosurgery 01/20/22 Dafne Hilton MD [address] [place] [address] Specialist Cardiology 10/13/22 Desi Swenson NP [address] [place] [id number] Cardiology 02/29/24
--- OUTSIDE RECORDS SUMMARY | 2025-07-11 14:56 | XMS_ITS | Encounter Summary ---
Author Organization [facility] Prior to 05/12/2024 Address [address] [place] [address] Care Team Providers Care Insurance Loss Assessor Name Role Phone Brett Velásquez MD Primary Care Provider Reilly Stewart MD, PHD Unavailable Unava Brett Villegas MD Primary Care Provider Wayne Dickson Primary Care Provider Dafne Hilton MD Unavailable [phone] Desi Swenson NP Unavailable [phone] Reason for Referral * Non MARTITA (Routine) - Authorized/Booked Specialty Diagnoses / Procedures Referred By Contac t Referred To Contact ORTHOPEDICS / Orthopedic Diagnoses Osteoarthritis of knees, bilateral Procedures REFERRAL TO ORTHOPEDICS (IN NETWORK) Brett Velásquez MD [address] [place] [address] Hermes Alegre MD 175 [facility] [address] [place] [id number] Referral ID Status Reason Start Date Expiration Date V isits Requested Visits Authorized [id number] Authorized/ Booked 01/29/2021 01/29/2022 12 12 Reason for Visit * Reason Onset Date Comments Griddle Attendant Feedback 01/22/2021 Ortho Encounter Details Date Type Department Care Team Description 01/22/2021 Telephone Adult Medicine [place] [place] [address] Brett Velásquez MD Griddle Attendant Feedback (Ortho ) Social History Tobacco Use [...] Date Type Specialty Care Team Description 04/29/2027 Ship Purser Report Abstract, Provider documented as of this encounter Visit Diagnoses Not on filedocumented in this encounter Care Teams Insurance Loss Assessor Relationship Specialty Start Date End Date Brett Velásquez MD PCP - General Internal Medicine 04/21/16 01/25/22 Brett Velásquez MD PCP - General Internal Medicine 01/26/22 02/15/22 Wayne Jaimes [address] [place] [address] PCP - General Internal Medicine 02/16/22 Reilly Baker MD, PHD Surgeon Neurosurgery 01/20/22 Dafne Hilton MD [address] [place] [address] Specialist Cardiology 10/13/22 Desi Swenson NP [address] [place] [address] Cardiology 02/29/24 documented as of this encounter
--- OUTSIDE RECORDS SUMMARY | 2025-07-11 14:56 | XMS_ITS | Encounter Summary ---
Author Organization [facility] Prior to 05/12/2024 Address [address] [place] [address] Care Team Providers Care Master Tax Advisor Name Role Phone Reilly Baker MD, PHD Unavailable Unava Wayne Blackman Primary Care Provider [phone] Dafne Hilton MD Unavailable [phone] Desi Swenson NP Unavailable Reason for Visit * Reason Onset Date Comments Anticoagulation 08/11/[address] Auguste @ [facility] Encounter Details Date Type Department Care Team Description 08/11/2023 Telephone Gastroenterology [address] [place] [address] Yuliana Auguste MD [address] [place] [id number] Anticoagulation (Colonoscopy 09/09/2023 Dr Auguste @ [facility]) Social History Tobacco Use Types Packs/Day Years [...] perioperatively. * Telephone Encounter - Alia Brooks L.P.N. - 08/11/2023 3:43 PM EST Patient scheduled for colonoscopy 09/09/[address] Auguste @ [facility]. Patient is on Brilinta. Dr Hilton, Please determine if this patient can hold his Birlinta for 7 days prior to his colonoscopy. Please advise. Thanks./dg documented in this encounter Plan of Treatment Upcoming Encounters Date Type Specialty Care Team Description 04/29/2027 Front Facer Report Abstract, Provider documented as of this encounter Visit Diagnoses Not on filedocumented in this encounter Care Teams Master Tax Advisor Relationship Specialty Start Date End Date NovabelkisEzequiel hinkleWayne R. [address] [place] [address] PCP - General Internal Medicine 02/16/22 Reilly Baker MD, PHD Surgeon Neurosurgery 01/20/22 Dafne Hilton MD [address] [place] [address] Specialist Cardiology 10/13/22 Desi Swenson NP [address] [place] [address] Cardiology 02/29/24 documented as of this encounter
--- OUTSIDE RECORDS SUMMARY | 2025-07-11 14:56 | XMS_ITS | Encounter Summary ---
Author Organization [facility] Prior to 05/12/2024 Address [address] [place] [address] Care Team Providers Care Corporate Investigator Name Role Phone Reilly Baker MD, PHD Unavailable Unava Wayne Blackman Primary Care Provider [phone] Dafne Hilton MD Unavailable [phone] Desi Swenson NP Unavailable [phone] Encounter Details Date Type Department Care Team Description 09/15/2023 Orders Only Medical Records [address] [place] [address] Yuliana Auguste MD [address] [place] [address] Social History Tobacco Use Types Packs/Day Years [...] Date Type Specialty Care Team Description 04/29/2027 Angular Js Developer Report Abstract, Provider documented as of this encounter Procedures Procedure Name Priority Date/Time Associated Diagnosis Comments OUTSIDE COLONOSCOPY Routine 09/09/2023 documented in this encounter Results * OUTSIDE COLONOSCOPY (09/09/2023) Yuliana Auguste MD RADIOLOGY documented in this encounter Visit Diagnoses Not on filedocumented in this encounter Care Teams Corporate Investigator Relationship Specialty Start Date End Date Wayne Jaimes Demler [address] [place] [address] PCP - General Internal Medicine 02/16/22 Reilly Baker MD, PHD Surgeon Neurosurgery 01/20/22 Dafne Hilton MD [address] [place] [address] Specialist Cardiology 10/13/22 Desi Swenson NP [address] [place], [place] [id number] Cardiology 02/29/24 documented as of this encounter
--- OUTSIDE RECORDS SUMMARY | 2025-07-11 14:56 | XMS_ITS | Encounter Summary ---
Author Organization [facility] Prior to 05/12/2024 Address [address] [place] [address] Care Team Providers Care Cognos Bi Developer Name Role Phone Brett Velásquez MD Primary Care Provider Reilly Stewart MD, PHD Unavailable UnaBrett Davis MD Primary Care Provider Wayne Dickson Primary Care Provider Dafne Hilton MD Unavailable [phone] Desi Swenson NP Unavailable [phone] Encounter Details Date Type Department Care Team Description 10/31/2021 SCAN [facility] Medical [facility] [address] [phone] Ena Whipple, PA-C [address] [address] Social History Tobacco Use Types Packs/Day Years [...] Date Type Specialty Care Team Description 04/29/2027 Crime Analyst Report Abstract, Provider documented as of this encounter Visit Diagnoses Not on filedocumented in this encounter Care Teams Cognos Bi Developer Relationship Specialty Start Date End Date Brett Velásquez MD PCP - General Internal Medicine 04/21/16 01/25/22 Brett Velásquez MD PCP - General Internal Medicine 01/26/22 02/15/22 Wayne Jaimes [address] [place] [address] PCP - General Internal Medicine 02/16/22 Reilly Baker MD, PHD Surgeon Neurosurgery 01/20/22 Dafne Hilton MD [address] [place] [address] Specialist Cardiology 10/13/22 Desi Swenson NP [address] [place] [address] Cardiology 02/29/24 documented as of this encounter
--- OUTSIDE RECORDS SUMMARY | 2025-07-11 14:56 | XMS_ITS | Encounter Summary ---
Author Organization [facility] Prior to 05/12/2024 Address [address] [place] [address] Care Team Providers Care Press Helper Name Role Phone Brett Velásquez MD Primary Care Provider Reilly Stewart MD, PHD Unavailable UnaBrett Davis MD Primary Care Provider Wayne Dickson Primary Care Provider [phone] Dafne Hilton MD Unavailable [phone] Desi Swenson NP Unavailable [phone] Reason for Visit * Reason Onset Date Comments Prior Authorization 06/17/2021 Encounter Details Date Type Department Care Team Description 06/17/2021 Telephone [facility] [address] [place] [address] [place] [phone] Joo Meadows MD Prior Authorization Social History [...] - 06/17/2021 8:42 AM EST Sendy from [facility] called again to check on status of prior auth for Euflexxa injections. I told her that Samara sent a request to [employer] and is waiting on response. Sendy asked that I let Samara know she called to check on it and to please let her know when we receive approval. She can be reached at [phone] ext [phone]. documented in this encounter Plan of Treatment Upcoming Encounters Date Type Specialty Care Team Description 04/29/2027 Inspector Conveyor Line Report Abstract, Provider documented as of this encounter Visit Diagnoses Not on filedocumented in this encounter Care Teams Press Helper Relationship Specialty Start Date End Date Brett Velásquez MD PCP - General Internal Medicine 04/21/16 01/25/22 Brett Velásquez MD PCP - General Internal Medicine 01/26/22 02/15/22 Wayne Jaimes [address] [place] [address] PCP - General Internal Medicine 02/16/22 Reilly Baker MD, PHD Surgeon Neurosurgery 01/20/22 Dafne Hilton MD [address] [place] [address] Specialist Cardiology 10/13/22 Desi Swenson NP [address] [place] [address] Cardiology 02/29/24 documented as of this encounter
--- OUTSIDE RECORDS SUMMARY | 2025-07-11 14:56 | XMS_ITS | Encounter Summary ---
Author Organization [facility] Prior to 05/12/2024 Address [address] [place] [address] Care Team Providers Care Safety Risk Lead Name Role Phone Brett Velásquez MD Primary Care Provider Reilly Stewart MD, PHD Unavailable UnaBrett Davis MD Primary Care Provider Wayne Dickson Primary Care Provider [phone] Dafne Hilton MD Unavailable [phone] Desi Swenson NP Unavailable [phone] Reason for Visit * Reason Onset Date Comments injection 02/02/2019 Encounter Details Date Type Department Care Team Description 02/02/2019 Telephone Physiatry - [address] [id number] Sonny Abrams PA-C injection Social History Tobacco [...] Date Type Specialty Care Team Description 04/29/2027 Waiter Waitress Report Abstract, Provider documented as of this encounter Visit Diagnoses Not on filedocumented in this encounter Care Teams Safety Risk Lead Relationship Specialty Start Date End Date Brett Velásquez MD PCP - General Internal Medicine 04/21/16 01/25/22 Brett Velásquez MD PCP - General Internal Medicine 01/26/22 02/15/22 Wayne Jaimes [address] [place] [address] PCP - General Internal Medicine 02/16/22 Reilly Baker MD, PHD Surgeon Neurosurgery 01/20/22 Dafne Hilton MD [address] [place] [address] Specialist Cardiology 10/13/22 Desi Swenson NP [address] [place] [address] Cardiology 02/29/24 documented as of this encounter
--- OUTSIDE RECORDS SUMMARY | 2025-07-11 14:56 | XMS_ITS | Encounter Summary ---
Author Organization [facility] Prior to 05/12/2024 Address [address] [place] [address] Care Team Providers Care Power Manager Name Role Phone Reilly Baker MD, PHD Unavailable Unava Wayne Blackman Primary Care Provider [phone] Dafne Hilton MD Unavailable [phone] Desi Swenson NP Unavailable Encounter Details Date Type Department Care Team Description 01/18/2024 Telephone Gastroenterology - [address] [place] [address] Kevin Oliva PA-C Social History [...] 01/31/2024 3:25 PM EDT Per Prisca at [facility], [facility] is not contracted with patient's insurance either, [facility] [employer] HMO. Per abdias Brown to book at [facility]. Called Central Registration at [phone] but they want the order faxed with demo sheet. Faxed to [phone]. * Telephone Encounter - Alexandria John - 01/31/2024 3:08 PM EDT Patient came in office stating [facility] is not accepting patient insurance. Please schedule appointment at [facility] for Barium Swallow and contact patient with information. * Telephone Encounter - Cristina Jimenez - 01/18/2024 8:21 AM EDT Booked Barium Swallow at [address] [place] [address] for patient on January 31 at 8am w/ arrival at 7:45am. Called the patient to notify of appointment details, including nothing to eat/drink after midnight. I also mailed an appointment letter. Order has been faxed to [phone]. documented in this encounter Plan of Treatment Upcoming Encounters Date Type Specialty Care Team Description 04/29/2027 Shot Blaster Report Abstract, Provider documented as of this encounter Visit Diagnoses Not on filedocumented in this encounter Care Teams Power Manager Relationship Specialty Start Date End Date Wayne Jaimes [address] [place] [address] PCP - General Internal Medicine 02/16/22 Reilly Baker MD, PHD Surgeon Neurosurgery 01/20/22 Dafne Hilton MD [address] [place] [address] Specialist Cardiology 10/13/22 Desi Swenson NP [address] [place] [address] Cardiology 02/29/24 documented as of this encounter
--- OUTSIDE RECORDS SUMMARY | 2025-07-11 14:56 | XMS_ITS | Encounter Summary ---
Author Organization [facility] Prior to 05/12/2024 Address [address] [place] [address] Care Team Providers Care Electric Stove Installer Name Role Phone Reilly Baker MD, PHD Unavailable Unava Wayne Blackman Primary Care Provider [phone] Dafne Hilton MD Unavailable [phone] Desi Swenson NP Unavailable [phone] Encounter Details Date Type Department Care Team Description 05/06/2023 Orders Only Medical Records [address] [place] [address] Ankita Mckeon NP Social History Tobacco Use [...] Date Type Specialty Care Team Description 04/29/2027 Elementary Educator Report Abstract, Provider documented as of this encounter Procedures Procedure Name Priority Date/Time Associated Diagnosis Comments OUTSIDE LAB Routine 04/05/2023 documented in this encounter Results * OUTSIDE LAB (04/05/2023) Ankita Mckeon NP LAB documented in this encounter Visit Diagnoses Not on filedocumented in this encounter Care Teams Electric Stove Installer Relationship Specialty Start Date End Date Erinarin Wayne R. [address] [place] [address] PCP - General Internal Medicine 02/16/22 Reilly Baker MD, PHD Surgeon Neurosurgery 01/20/22 Dafne Hilton MD [address] [place] [address] Specialist Cardiology 10/13/22 Desi Swenson NP [address] [place], [place] [address] Cardiology 02/29/24 documented as of this encounter
--- OUTSIDE RECORDS SUMMARY | 2025-07-11 14:56 | XMS_ITS | Encounter Summary ---
Author Organization [facility] [facility] Prior to 05/12/2024 Address [address] [place] [address] Care Team Providers Care Cashier Receptionist Name Role Phone Reilly Baker MD, PHD Unavailable Unava ilable Wayne Jaimes Primary Care Provider [phone] Dafne Hilton MD Unavailable [phone] Desi Swenson NP Unavailable [phone] Encounter Details Date Type Department Care Team Description 05/10/2023 Car Tester Report Medical Records [address] [place] [address] Gael Duvall Social History Tobacco Use Types [...] Type Specialty Care Team Description 04/29/2027 Car Tester Report Abstract, Provider documented as of this encounter Visit Diagnoses Not on filedocumented in this encounter Care Teams Cashier Receptionist Relationship Specialty Start Date End Date Wayne Jaimes [address] [place], [place] [phone] PCP - General Internal Medicine 02/16/22 Reilly Baker MD, PHD Surgeon Neurosurgery 01/20/22 Dafne Hilton MD [address] [place], [place] [address] Specialist Cardiology 10/13/22 Desi Swenson NP [address] [place] [address] Cardiology 02/29/24 documented as of this encounter
--- OUTSIDE RECORDS SUMMARY | 2025-07-11 14:56 | XMS_ITS | Encounter Summary ---
Author Organization [facility] Prior to 05/12/2024 Address [address] [place] [address] Care Team Providers Care Air Shovel Operator Name Role Phone Brett Velásquez MD Primary Care Provider Reilly Stewart MD, PHD Unavailable Brett España MD Primary Care Provider Wayne Dickson Primary Care Provider [phone] Dafne Hilton MD Unavailable [phone] Desi Swenson NP Unavailable [phone] Reason for Visit * Reason Onset Date Comments Medication Injection, Joint 12/04/2021 LVM advising pt. call [facility] [phone] and provide consent to dispense Gelsyn inj to our office Encounter Details Date Type Department Care Team Description 12/04/2021 Telephone [facility] Medical [facility] [address] [address] Ena Whipple PAKhushbooC [address] [address] Medication Injection, Joint (LVM advising pt. call [facility] [phone] and provide consent to dispense Gelsyn inj [...] Date Type Specialty Care Team Description 04/29/2027 Baker Report Abstract, Provider documented as of this encounter Visit Diagnoses Not on filedocumented in this encounter Care Teams Air Shovel Operator Relationship Specialty Start Date End Date Brett Velásquez MD PCP - General Internal Medicine 04/21/16 01/25/22 Brett Velásquez MD PCP - General Internal Medicine 01/26/22 02/15/22 Wayne Jaimes [address] [place] [address] PCP - General Internal Medicine 02/16/22 Reilly Baker MD, PHD Surgeon Neurosurgery 01/20/22 Dafne Hilton MD [address] [place] [address] Specialist Cardiology 10/13/22 Desi Swenson NP [address] [place] [address] Cardiology 02/29/24 documented as of this encounter
--- OUTSIDE RECORDS SUMMARY | 2025-07-11 14:56 | XMS_ITS | Encounter Summary ---
Author Organization [facility] Prior to 05/12/2024 Address [address] [place] [address] Care Team Providers Care Electronics Repair Technician Name Role Phone Brett Velásquez MD Primary Care Provider Reilly Stewart MD, PHD Unavailable Unava Brett Villegas MD Primary Care Provider Wayne Dickson Primary Care Provider Dafne Hilton MD Unavailable [phone] Desi Swenson NP Unavailable [phone] Reason for Visit * Reason Onset Date Comments Medication 12/05/2021 Encounter Details Date Type Department Care Team Description 12/05/2021 Telephone [facility] Medical [facility] [address] [address] Ena Whipple, PA-C [address] [address] Medication Social History Tobacco Use Types Packs/Day [...] Date Type Specialty Care Team Description 04/29/2027 Digital Forensic Analyst Report Abstract, Provider documented as of this encounter Visit Diagnoses Not on filedocumented in this encounter Care Teams Electronics Repair Technician Relationship Specialty Start Date End Date Brett Velásquez MD PCP - General Internal Medicine 04/21/16 01/25/22 Brett Velásquez MD PCP - General Internal Medicine 01/26/22 02/15/22 Wayne Jaimes [address] [place] [address] PCP - General Internal Medicine 02/16/22 Reilly Baker MD, PHD Surgeon Neurosurgery 01/20/22 Dafne Hilton MD [address] [place] [address] Specialist Cardiology 10/13/22 Desi Swenson NP [address] [place] [address] Cardiology 02/29/24 documented as of this encounter
--- OUTSIDE RECORDS SUMMARY | 2025-07-11 14:56 | XMS_ITS | Encounter Summary ---
Author Organization [employer] [facility] Prior to 05/12/2024 Address [address] [place] [address] Care Team Providers Care Therapist Rrt Name Role Phone Brett Velásquez MD Primary Care Provider Reilly Stewart MD, PHD Unavailable Brett Espaañ MD Primary Care Provider Wayne Dickson Primary Care Provider [phone] Dafne Hilton MD Unavailable [phone] Desi Swenson NP Unavailable [phone] Encounter Details Date Type Department Care Team Description 03/20/2021 Pt. Non Urgent Medical Question Physiatry - [address] [address] Angela Montalvo MD [address] [place] [address] [place] [id number] Social History Tobacco Use Types Packs/Day Years [...] who IV injection for back pain in [facility] or [facility] as soon as possible. my back pain more worse day after. stand up after down is very hard time. pain always any where anytime. if can not find Doctor in this area, referral any Doctor who have a procedure that IV injection on back i njection. documented in this encounter Plan of Treatment Upcoming Encounters Date Type Specialty Care Team Description 04/29/2027 Aviation Survival Technician Report Abstract, Provider documented as of this encounter Visit Diagnoses Not on filedocumented in this encounter Care Teams Therapist Rrt Relationship Specialty Start Date End Date Brett Velásquez MD PCP - General Internal Medicine 04/21/16 01/25/22 Brett Velásquez MD PCP - General Internal Medicine 01/26/22 02/15/22 Wayne Jaimes [address] [place] [address] PCP - General Internal Medicine 02/16/22 Reilly Baker MD, PHD Surgeon Neurosurgery 01/20/22 Dafne Hilton MD [address] [place] [address] Specialist Cardiology 10/13/22 Desi Swenson NP [address] [place] [address] Cardiology 02/29/24 documented as of this encounter
--- OUTSIDE RECORDS SUMMARY | 2025-07-11 14:56 | XMS_ITS | Encounter Summary ---
Author Organization [employer] [facility] Prior to 05/12/2024 Address [address] [place] [address] Care Team Providers Care Carpet Yarn Winder Operator Name Role Phone Brett Velásquez MD Primary Care Provider Keisha Luna MD Primary Care Provider [phone] Brett Velásquez MD Primary Care Provider Reilly Stewart MD, PHD Unavailable Unava ilable Brett Velásquez MD Primary Care Provider Wayne Dickson Primary Care Provider [phone] Dafne Hilton MD Unavailable [phone] Desi Swenson NP Unavailable [phone] Encounter Details Date Type Department Care Team Description 06/18/2014 Leasing Professional Report Medical Records [address] [place] [address] Aleksandar Huggins MD Social History Tobacco Use [...] Date Type Specialty Care Team Description 04/29/2027 Leasing Professional Report Abstract, Provider documented as of this encounter Visit Diagnoses Not on filedocumented in this encounter Care Teams Carpet Yarn Winder Operator Relationship Specialty Start Date End Date Brett Velásquez MD PCP - General Internal Medicine 10/29/11 06/19/15 Keisha Chavez MD [address] [place] [address] PCP - General Internal Medicine 06/20/15 04/20/16 Brett Velásquez MD PCP - General Internal Medicine 04/21/16 01/25/22 Brett Velásquez MD PCP - General Internal Medicine 01/26/22 02/15/22 Wayne Jaimes [address] [place] [address] PCP - General Internal Medicine 02/16/22 Reilly Baker MD, PHD [address] [place] [address] Surgeon Neurosurgery 01/20/22 Dafne Hilton MD [address] [place] [address] Specialist Cardiology 10/13/22 Desi Swenson NP [address] [place] [address] Cardiology 02/29/24 documented as of this encounter
--- OUTSIDE RECORDS SUMMARY | 2025-07-11 14:56 | XMS_ITS | Data Portability ---
Author Organization [place] [facility], Allergy Address [address] [address] Care Team Providers Care Material Expeditor Name Role Phone SUMMER LOWE Primary Care [...] therap y referr al 2024 025 [email or web address] [facility], [address] [place] [address] [place], [address], 14:07:54 speech therap y referr al - Appt 05/26 @ 8:30am 2023 024 [facility], [address], [address] Floor, [place], [address], 09:38:44 Procedures None record ed. Surgeries None record ed. Imaging CT, neck, soft tissue , w/ contra st - Chroni c sore throat evalua te for neopla sm. 2024 025 [email or web address] [facility], [address], [address], [place], [address], 11:07:28 Medication Orders famoti dine 20 mg tablet 2024 025 [facility], [address] [place] [address], [address], 5 15:05:18 nystat in 100,00 0 unit/m L oral suspen sun 2023 024 [facility], [address] [place] [address], [address], 4 16:22:57 nystat in 100,00 0 unit/m L oral suspen sun 2023 024 [facility], [address] [place] [address], [address], 4 14:42:09 Patient TargetsNo targets recorded. Patient InstructionsNo instructions recorded. Reason for Referral Appt 05/26 @ 8:30am Referring Physician: Eneida Cherry, Otolaryngology, Encounter Date: 04/21/2024 Referring Physician: Eneida Cherry Otolaryngology, Encounter Date: 08/10/2024 Results Created Date Observation Date Name Description Value Unit Range Abnormal Flag Note LastModifiedBy Organization Detail LastModifiedTime 03/22/2003/22/2025 BUN BUN 14 mg/dL 5-[address] [facility] U/S Dept [address] [place], [address], 03/22/2025 14:37:11 03/22/20 25 03/22/2025 BUN note See Report [facility], [address], [place], [place] [address] Not Available [facility]/S Dept [address] [place], [address], 03/22/2025 14:37:11 03/22/20 25 03/22/2025 CREAT ININE creatinine 1.01 mg/dL 0.70-1 .30 Not Available [facility]/S Dept [address], [place], [address], 03/22/2025 14:37:12 03/22/20 25 03/22/2025 CREAT ININE eGFR 80 mL/mi n/1.7 3m2 >=60 Calcu latio n based on the Chron ic Kidne y Disea se Epide miolo gy Colla borat ion (CKD- EPI) equat ion refit witho ut adjus tment for race. Not Available [facility]/S Dept [address] [place], [address], 03/22/2025 14:37:12 03/22/20 25 03/22/2025 CREAT ININE note See Report [facility], [address], [place], [place] [address] Not Available [facility]/S Dept [address] [place], [address], 03/22/2025 14:37:12 03/23/20 25 03/22/2025 CT, neck, soft tissu e, w/ contr ast See Note [facility] , [facility] Name: ADDIE GARCIA Date of : 05/09/ 1956 Reason for Exam: CHRONI C PHARYN GITIS ,CHRON IC SORE THROAT Exam Date: 2024 [id number] EST Report Status : Final Orderi ng [...] Edit Transc ribed Date: 2024 16:10 ET [facility] U/S Dept [address] [place], [address], 03/28/2025 15:08:58 Result Notes Documentation Provider Name and Address Organization Details Recorded Time Ct, Neck, Soft Tissue, W/ Contrast : See Note [facility], a member of [employer] Patient Name: ADDIE GARCIA Date of : 1955 Reason for Exam: CHRONIC PHARYNGITIS ,CHRONIC SORE THROAT Exam Date: 03/22/2025 [id number] EST Report Status: Final Ordering Provider: ENEIDA [...] Signed Date: 03/23/2025 16:34 ET Workstation ID: [id number] Transcribed By: Self Edit Transcribed Date: 03/23/2025 16:10 ET ENEIDA CHERRY MD [address] [place] [address], [address], [facility] - [facility] 03/26/2025 09:19:42 Problems Name Problem SNOMED Code Status Onset Date Resolution Date Notes Provider Name and Address Organization Details Recorded Time Gastroeso phageal reflux disease without esophagit is 993237341 Active 2015 Gastro-es ophageal reflux disease without esophagit is; Note: Date Diagnosed : 07/22/2015 2:46 PM (K21.9) Not Available [facility] 4 02:19:18 Cough 69306836 Active 2015 Cough, unspecifi ed; Note: Changed from R05 to R05.9 ( 2 2:10 PM) , Date Diagnosed : 09/04/2015 3:10 PM (R05) Not Available [facility] 4 02:19:08 Paralysis of larynx 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, unilatera l; Note: Date Diagnosed : 12/12/2019 3:31 PM (J38.01) Not Available [facility] 4 02:18:19 Sensorine ural hearing loss of bilateral ears 382361622 Active 2019 Sensorine ural hearing loss, bilateral ; Note: Date Diagnosed : 02/26/2020 3:32 PM (H90.3) Note: Date Diagnosed : 02/26/2020 3:32 PM (H90.3) Not Available [facility] 4 00:53:14 Benign paroxysma l positiona l vertigo 296175044 Active 2019 Benign paroxysma l vertigo, left ear; Note: Date Diagnosed : 02/26/2020 3:32 PM (H81.12) Not Available [facility] 4 02:18:20 Stomatiti s 28685259 Active 2020 Oral thrush; Note: Date Diagnosed : 04/14/2021 11:22 AM (B37.0) Not Available [facility] 4 02:18:55 Candidias is of mouth 45701199 Active 2020 Oral thrush; Note: Date Diagnosed : 04/14/2021 11:22 AM (B37.0) Not Available [facility] 4 02:18:55 Dysphagia 93478594 Active 2022 Dysphagia , unspecifi ed; Note: Date Diagnosed : 10/27/2021 12:05 PM (R13.10) ; Start Date : 2 Other dysphagia ; Note: Date Diagnosed : 04/07/2023 1:44 PM (R13.19) Not Available [facility] 4 02:19:19 Oropharyn geal dysphagia 55367589 Active 2023 Dysphagia , oropharyn geal phase; Note: Date Diagnosed : 09/16/2023 1:19 PM (R13.12) Not Available [facility] 4 02:19:08 Hemoptysi s 14233787 Active 2023 ENEIDA CHERRY MD [address] [facility],[place] [address], [facility] [place], [address] , [place] - [facility] 4 14:33:59 Chronic sore throat 568424697 Active 2023 ENEIDA CHERRY MD [address] [facility],[place] [address], [facility] [place], [address] , [place] - [facility] 4 14:34:04 Chronic hoarsenes s 50077692456 05 Active 2023 ENEIDA CHERRY MD [address] [facility],[place] [address], [facility] [place], [address] , [place] - [facility] 4 14:42:59 Problem Notes None recorded. Procedures Surgical History Date Name Laterality Status Provider Name and Address Organization Details Recorded Time 02/09/20 25 FFL_RE completed ENEIDA CHERRY MD [address] [facility],[place] [address], [place], [address], [facility] - [facility] 02/08/2025 14:50:49 08/10/19 25 FFL_RE completed ENEIDA CHERRY MD 100 [facility] [address], [place], [address], [place] - [facility] 08/10/2024 15:02:15 04/21/20 24 FFL_RE completed ENEIDA CHERRY MD [address] [place] [address], [address], [place] - [facility] 04/21/2024 14:41:39 transurethral prostatectomy completed Bibi Neal [place] - [facility] 05/10/2024 14:05:40 subtotal thyroidectomy completed Bibi Neal [place] - [facility] 05/10/2024 14:05:53 Imaging Results None recorded. Procedure Notes None recorded. Medical Equipment None Reported. Allergies No known drug allergies Medications Name Sig Start Date Stop Date Status Note LastModified by Organization Details LastModified Time losartan 50 mg tablet 05/06 completed Medicati on ID: [id number] B rand Name: losartan Send Method: E-Prescr [...] gram tablet 05/06 completed Medicati on ID: [id number] D uration Value: 7 Brand Name: valacycl [...] mucosal jelly 05/10 completed Medicati on ID: [id number] D uration Value: 14 Brand Name: lidocain [...] mg capsule 05/06 completed Medicati on ID: [id number] D uration Value: 90 Brand Name: tamsulos in Send Method: E-Prescr ibed Sub s Allowed: subs OK Speci al Instruct ion: TAKE ONE CAPSULE DAILY Me dication GenericN jay: tamsulos in Not Available Not Available Not Available pantopraz ole 40 mg tablet,de layed release 07/12 completed Medicati on ID: [id number] D uration Value: 30 Brand Name: pantopra [...] by mouth 07/12 completed Medicati on ID: [id number] D uration Value: 30 Prescri bed By [...] oral powder 05/10 completed Medicati on ID: [id number] D uration Value: 30 Brand Name: polyethy [...] layed release 12/11 completed Medicati on ID: [id number] Jennifer bar By Name: Trevon [address], [...] No t Available Jublia 10 % topical solution, applicato r APPLY 1 APPLICAT ION TOPICALL Y ONCE DAILY active Not Available Not Available No t Available Flonase Allergy Relief 50 mcg/actua tion nasal spray,reinaldo pension 2 puff into both nostrils 10/17 completed Medicati on ID: [id number] Jennifer bar By Name: Tre[address], [...] Weaver [place] - [facility] 08/10/2024 14:29:36 Date Recorded Body height Body mass index (BMI) Body weight Provider Name and Address Organization Details Last Updated DateTime 02/08/2025 167.64 cm 27 kg/m2 24654.93 g Aakash Weaver [place] - [facility] 02/08/2025 14:31:52 Date Recorded Body height Body mass index (BMI) Body weight Provider Name and Address Organization Details Last Updated DateTime 04/21/2024 167.64 cm 27 kg/m2 81476.93 g Aakash Weaver [facility] 04/21/2024 14:00:43 Date Recorded Body height Body weight Provider Name and Address Organization Details Last Updated DateTime 05/10/2024 167.64 cm 27984.93 g Bibi Neal [place] [facility] 05/10/2024 14:01:54 Social History None recorded. Functional Status None recorded. Mental Status None recorded. Family History Nothing Reported. Medical History Condition Response Hypertension Y Sleep Disorder Y GERD/Reflux Y Past Encounters Encounter ID Performer Location Encounter Start Date Encounter Closed Date Diagnosis/Indication Diagnosis SNOMED-CT Code Diagnosis ICD10 Code Diagnosis IMO Codes Diagnosis Note [id number] ENEIDA CHERRY MD [facility] [address] [address] 04/21/2024 13:44:06 04/21/2024 15:41:33 Hemoptysis 78602661 R04.2 resolved. laryngosco py negative today for bleeding Chronic sore throat 2754 27257 J31.2 likely due to thrush. Gastroesop hageal reflux disease without esophagitis 132509303 K21.9 continue esomeprazo le Candidiasis of mouth 797 18740 B37.0 FFL notable for montez in base of tongue. LIkely secondary to steroid inhalers. Will treat with nystatin. I asked him to call if not improved. No tumors on laryngosoc py. Chronic hoarseness 71957 36957 105 R49.0 will make voice therapy referral to [facility] [id number] CHENG IBARRA PA-C [facility] [address] [address] 05/10/2024 13:45:35 05/10/2024 15:10:38 Candidiasis of mouth 28795525 B37.0 Chronic hoarseness 72181 13323 105 R49.0 Chronic sore throat 2754 95567 J31.2 Gastroesop hageal reflux disease without esophagitis 106597588 K21.9 [id number] ENEIDA CHERRY MD [facility] [address] [address] 08/10/2024 13:56:29 08/10/2024 15:05:58 Chronic sore throat 855168700 J31.2 no evidence of thrush. he has breakthrou gh heartburn and I think the soreness is due to LPR. I will add dual therapy for reflux with famotidine in addition to his PPI. Gastroesop hageal reflux disease without esophagitis 044955854 K21.9 begin dual thearpy Candidiasis of mouth 797 51665 B37.0 resolved Chronic hoarseness 59182 56557 105 R49.0 will make voice therapy referral to [facility] since he could not be seen at [facility] no vocal cord lesions. [id number] ENEIDA CHERRY MD [facility] [address] [place] [address] 02/08/2025 14:21:54 02/08/2025 15:05:34 Chronic sore throat 583117322 J31.2 He did not improve with dual PPI therapy and I recommend a CT of the neck with contrast to exclude any neoplastic process. Laryngosco py today showed changes consistent with reflux including erythema and cobbleston ing. I did not see any tumors. Gastroesop hageal reflux disease without esophagitis 978606212 K21.9 He can stop famotidine since he did not benefit and just remain on his PPI. Chronic hoarseness 38707 68359 105 R49.0 No vocal cord lesions on [...] Ayala Member ID Guarantor Name 02/11/2025 1 [facility] Addie Garcia [id number] Addie Garcia Notes Date Note Type Note [...] in September 2020. ENEIDA CHERRY MD [address] [facility],[address], [address], [facility] - [facility] 04/21/2024 14:43:45 05/10/2024 text/html ROS as [...] Normal MBS. VELASQUEZ QUINTERO MD [address] [facility],[place] [address], [place], [address], [facility] - [facility] 05/11/2024 12:34:14 08/10/2024 text/html ROS as [...] in September 2020. ENEIDA CHERRY MD 100 [facility],[address], [address], [place] - [facility] 08/10/2024 15:05:10 02/08/2025 text/html ROS as noted in the HPI He has a history of hemoptysis which resolved. He has been evaluated by us for laryngoscopy and montez was noted and was treated twice for this with minimal benefit. He continues to have some throat pain and hoarseness. I referred for voice and he was seen at [facility] 01/24. Had an MBS 08/2023 which did not show aspiration. He does not smoke. He began dual PPI therapy after our last visit. He does not feel much improvement. 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 VC paralysis resolved on last FOL in September 2020. ENEIDA CHERRY MD [address] [facility],[address], [address], [place] - [facility] 02/08/2025 15:05:38
--- OUTSIDE RECORDS SUMMARY | 2025-07-11 14:56 | XMS_ITS | Encounter Summary ---
[facility] Organization [facility] Address [address] [place] [address] Care Team Providers Care Metal Moulder'S Assistant Name Role Phone Reilly Baker MD, PHD Unavailable Unava Wayne Blackman Primary Care Provider [phone] Dafne Hilton MD Unavailable [phone] Desi Swenson NP Unavailable [phone] Reason for Visit * Reason Onset Date Comments Medication 02/25/2023 Encounter Details Date Type Department Care Team Description 02/25/2023 Telephone Gastroenterology - [address] [place] [id number] Kevin Oliva PA-C Medication Social History Tobacco [...] Type Specialty Care Team Description 04/29/2027 Tool Checker Report Abstract, Provider documented as of this encounter Visit Diagnoses Not on filedocumented in this encounter Care Teams Metal Moulder'S Assistant Relationship Specialty Start Date End Date Wayne Jaimes [address] [place] [address] PCP - General Internal Medicine 02/16/22 Reilly Baker MD, PHD Surgeon Neurosurgery 01/20/22 Dafne Hilton MD [address] [place] [address] Specialist Cardiology 10/13/22 Desi Swenson NP [address] [place] [address] Cardiology 02/29/24 documented as of this encounter
--- OUTSIDE RECORDS SUMMARY | 2025-07-11 14:56 | XMS_ITS | Encounter Summary ---
Author Organization [employer] [facility] Prior to 05/12/2024 Address [address] [place] [address] Care Team Providers Care Bead Filler Name Role Phone Reilly Baker MD, PHD Unavailable Unava ilable Wayne Jaimes Primary Care Provider [phone] Dafne Hilton MD Unavailable [phone] Desi Swenson NP Unavailable [phone] Encounter Details Date Type Department Care Team Description 11/05/2023 Supervisor Order Takers Report Medical Records [address] [place] [address] Maxwell Gordon MD Social History Tobacco Use [...] Type Specialty Care Team Description 04/29/2027 Supervisor Order Takers Report Abstract, Provider documented as of this encounter Visit Diagnoses Not on filedocumented in this encounter Care Teams Bead Filler Relationship Specialty Start Date End Date Wayne Jaimes [address] [place] [address] PCP - General Internal Medicine 02/16/22 Reilly Baker MD, PHD Surgeon Neurosurgery 01/20/22 Dafne Hilton MD [address] [place] [address] Specialist Cardiology 10/13/22 Desi Swenson NP [address] [place] [address] Cardiology 02/29/24 documented as of this encounter
--- OUTSIDE RECORDS SUMMARY | 2025-07-11 14:56 | XMS_ITS | Encounter Summary ---
Author Organization [employer] [facility] Prior to 05/12/2024 Address [address] [place] [address] Care Team Providers Care Trial Mgr Name Role Phone Brett Velásquez MD Primary Care Provider Reilly Stewart MD, PHD Unavailable Brett España MD Primary Care Provider Wayne Dickson Primary Care Provider [phone] Dafne Hilton MD Unavailable [phone] Desi Swenson NP Unavailable [phone] Encounter Details Date Type Department Care Team Description 07/20/2019 [facility] Medical Records [address] [place] [address] Lalit Salamanca MD [address] [place] [id number] Social History Tobacco Use Types Packs/Day Years [...] Date Type Specialty Care Team Description 04/29/2027 Gym Attendant Report Abstract, Provider documented as of this encounter Visit Diagnoses Not on filedocumented in this encounter Care Teams Trial Mgr Relationship Specialty Start Date End Date Brett Velásquez MD PCP - General Internal Medicine 04/21/16 01/25/22 Brett Velásquez MD PCP - General Internal Medicine 01/26/22 02/15/22 Wayne Jaimes [address] [place] [address] PCP - General Internal Medicine 02/16/22 Reilly Baker MD, PHD Surgeon Neurosurgery 01/20/22 Dafne Hilton MD [address] [place] [address] Specialist Cardiology 10/13/22 Desi Swenson NP [address] [place], [place] [id number] Cardiology 02/29/24 documented as of this encounter
--- OUTSIDE RECORDS SUMMARY | 2025-07-11 14:56 | XMS_ITS | Encounter Summary ---
Author Organization [employer] [facility] Prior to 05/12/2024 Address [address] [place] [address] Care Team Providers Care Porcelain Waxer Name Role Phone Brett Velásquez MD Primary Care Provider Reilly Stewart MD, PHD Unavailable Brett España MD Primary Care Provider Wayne Dickson Primary Care Provider [phone] Dafne Hilton MD Unavailable [phone] Desi Swenson NP Unavailable Encounter Details Date Type Department Care Team Description 07/26/2019 Orders Only Medical Records [address] [place] [address] Lalit Salamanca MD 175 [facility] [address] [place], [place] [phone] Social History Tobacco Use Types Packs/Day Years [...] Type Specialty Care Team Description 04/29/2027 Water Project Manager Report Abstract, Provider documented as of this encounter Procedures Procedure Name Priority Date/Time Associated Diagnosis Comments OUTSIDE PATHOLOGY Routine 07/20/2019 documented in this encounter Results * OUTSIDE PATHOLOGY (07/20/2019) Lalit Salamanca MD OUTSIDE LAB documented in this encounter Visit Diagnoses Not on filedocumented in this encounter Care Teams Porcelain Waxer Relationship Specialty Start Date End Date Brett Velásquez MD PCP - General Internal Medicine 04/21/16 01/25/22 Brett Velásquez MD PCP - General Internal Medicine 01/26/22 02/15/22 Wayne Jaimes [address] [place] [address] PCP - General Internal Medicine 02/16/22 Reilly Baker MD, PHD Surgeon Neurosurgery 01/20/22 Dafne Hilton MD [address] [place] [address] Specialist Cardiology 10/13/22 Desi Swenson NP [address] [place] [address] Cardiology 02/29/24 documented as of this encounter
--- OUTSIDE RECORDS SUMMARY | 2025-07-11 14:56 | XMS_ITS | Encounter Summary ---
Author Organization [facility] Prior to 05/12/2024 Address [address] [place] [address] Care Team Providers Care Internal Communications Specialist Name Role Phone Reilly Baker MD, PHD Unavailable Unava ilable Wayne Jaimes Primary Care Provider [phone] Dafne Hilton MD Unavailable [phone] Desi Swenson NP Unavailable [phone] Encounter Details Date Type Department Care Team Description 10/11/2023 Home Health Clinical Supervisor Report Medical Records [address] [place] [id number] Vladislav Antunez DO Social History Tobacco Use [...] Type Specialty Care Team Description 04/29/2027 Home Health Clinical Supervisor Report Abstract, Provider documented as of this encounter Visit Diagnoses Not on filedocumented in this encounter Care Teams Internal Communications Specialist Relationship Specialty Start Date End Date Wayne Jaimes [address] [place] [address] PCP - General Internal Medicine 02/16/22 Reilly Baker MD, PHD Surgeon Neurosurgery 01/20/22 Dafne Hilton MD [address] [place] [address] Specialist Cardiology 10/13/22 Desi Swenson NP [address] [place] [address] Cardiology 02/29/24 documented as of this encounter
--- OUTSIDE RECORDS SUMMARY | 2025-07-11 14:56 | XMS_ITS | Encounter Summary ---
Author Organization [facility] Prior to 05/12/2024 Address [address] [place] [address] Care Team Providers Care Truck Caterer Name Role Phone Reilly Baker MD, PHD Unavailable Unava ilable Wayne Jaimes Primary Care Provider [phone] Dafne Hilton MD Unavailable [phone] Desi Swenson NP Unavailable [phone] Encounter Details Date Type Department Care Team Description 05/05/2023 Head Orthopedic Team Physician Report Medical Records [address] [place] [address] Aleksandar Huggins MD Social History Tobacco Use [...] Type Specialty Care Team Description 04/29/2027 Head Orthopedic Team Physician Report Abstract, Provider documented as of this encounter Visit Diagnoses Not on filedocumented in this encounter Care Teams Truck Caterer Relationship Specialty Start Date End Date Wayne Jaimes [address] [place], [place] [id number] PCP - General Internal Medicine 02/16/22 Reilly Baker MD, PHD Surgeon Neurosurgery 01/20/22 Dafne Hilton MD [address] [place] [address] Specialist Cardiology 10/13/22 Desi Swenson NP [address] [place] [address] Cardiology 02/29/24 documented as of this encounter
--- OUTSIDE RECORDS SUMMARY | 2025-07-11 14:56 | XMS_ITS | Encounter Summary ---
Author Organization [facility] Prior to 05/12/2024 Address [address] [place] [address] Care Team Providers Care Dehydrator Tender Name Role Phone Reilly Baker MD, PHD Unavailable Unava ilable Wayne Jaimes Primary Care Provider [phone] Dafne Hilton MD Unavailable [phone] Desi Swenson NP Unavailable [phone] Encounter Details Date Type Department Care Team Description 09/21/2023 Orders Only Medical Records [address] [place] [address] Vipin Cherry Social History Tobacco Use Types [...] Type Specialty Care Team Description 04/29/2027 Supervisor Assembly Room Report Abstract, Provider documented as of this encounter Procedures Procedure Name Priority Date/Time Associated Diagnosis Comments OUTSIDE BARIUM SWALLOW Routine 08/17/2023 documented in this encounter Results * OUTSIDE BARIUM SWALLOW (08/17/2023) Vipin Cherry RADIOLOGY documented in this encounter Visit Diagnoses Not on filedocumented in this encounter Care Teams Dehydrator Tender Relationship Specialty Start Date End Date Wayne Jaimes [address] [place] [address] PCP - General Internal Medicine 02/16/22 Reilly Baker MD, PHD Surgeon Neurosurgery 01/20/22 aDfne Hilton MD [address] [place] [address] Specialist Cardiology 10/13/22 Desi Swenson NP [address] [place] [address] Cardiology 02/29/24 documented as of this encounter
--- OUTSIDE RECORDS SUMMARY | 2025-07-11 14:56 | XMS_ITS | Encounter Summary ---
Author Organization [facility] Prior to 05/12/2024 Address [address] [place] [address] Care Team Providers Care Pre Owned Sales Manager Name Role Phone Brett Velásquez MD Primary Care Provider Reilly Stewart MD, PHD Unavailable Unava Brett Villegas MD Primary Care Provider Wayne Dickson Primary Care Provider [phone] Dafne Hilton MD Unavailable [phone] Desi Swenson NP Unavailable [phone] Encounter Details Date Type Department Care Team Description 04/28/2021 Hosiery Mater Report Medical Records [address] [place] [address] Bolivar Palmer MD Social History Tobacco Use [...] Date Type Specialty Care Team Description 04/29/2027 Hosiery Mater Report Abstract, Provider documented as of this encounter Visit Diagnoses Not on filedocumented in this encounter Care Teams Pre Owned Sales Manager Relationship Specialty Start Date End Date Brett Velásquez MD PCP - General Internal Medicine 04/21/16 01/25/22 Brett Velásquez MD PCP - General Internal Medicine 01/26/22 02/15/22 Wayne Jaimes [address] [place] [address] PCP - General Internal Medicine 02/16/22 Reilly Baker MD, PHD Surgeon Neurosurgery 01/20/22 Dafne Hilton MD [address] [place] [address] Specialist Cardiology 10/13/22 Desi Swenson NP [address] [place] [address] Cardiology 02/29/24 documented as of this encounter
--- OUTSIDE RECORDS SUMMARY | 2025-07-11 14:56 | XMS_ITS | Encounter Summary ---
Author Organization [facility] Prior to 05/12/2024 Address [address] [place] [address] Care Team Providers Care Online Media Director Name Role Phone Brett Velásquez MD Primary Care Provider Keisha Luna MD Primary Care Provider [phone] Brett Velásquez MD Primary Care Provider Reilly Stewart MD, PHD Unavailable Unava ilable Brett Velásquez MD Primary Care Provider Wayne Dickson Primary Care Provider [phone] Dafne Hilton MD Unavailable [phone] Desi Swenson NP Unavailable [phone] Encounter Details Date Type Department Care Team Description 06/06/2014 Slot Host Report Medical Records [address] [place] [address] Rehab[address] [place] Social History Tobacco Use Types Packs/Day Years [...] Type Specialty Care Team Description 04/29/2027 Slot Host Report Abstract, Provider documented as of this encounter Visit Diagnoses Not on filedocumented in this encounter Care Teams Online Media Director Relationship Specialty Start Date End Date Brett Velásquez MD PCP - General Internal Medicine 10/29/11 06/19/15 Keisha Chavez MD [address] [place] [address] PCP - General Internal Medicine 06/20/15 04/20/16 Brett Velásquez MD PCP - General Internal Medicine 04/21/16 01/25/22 Brett Velásquez MD PCP - General Internal Medicine 01/26/22 02/15/22 Wayne Jaimes [address] [place] [address] PCP - General Internal Medicine 02/16/22 Reilly Baker MD, PHD [address] [place] [address] Surgeon Neurosurgery 01/20/22 Dafne Hilton MD [address] [place] [address] Specialist Cardiology 10/13/22 Desi Swenson NP [address] [place] [address] Cardiology 02/29/24 documented as of this encounter
== END 2025-07-11 14:06 | disposition home or self-care (01) ==
LOC: HO.HCS 13:31
PROVIDERS: PCP Internal Medicine
DX: R00.2 Palpitations (principal); I25.10 Atherosclerotic heart disease of native coronary artery without angina pectoris; Z95.1 Presence of aortocoronary bypass graft; Z98.890 Other specified postprocedural states; I10 Essential (primary) hypertension; E78.5 Hyperlipidemia, unspecified
CPT/HCPCS: 93010; 99214; G2211

== ENCOUNTER → 2025-07-11 13:30 | Outpatient (BNVA) | payer OTHER, SELFPAY | PROVIDERS: PCP Internal Medicine | DX: R00.2 Palpitations (principal); I10 Essential (primary) hypertension; I25.10 Atherosclerotic heart disease of native coronary artery without angina pectoris; Z95.1 Presence of aortocoronary bypass graft; Z98.890 Other specified postprocedural states; E78.5 Hyperlipidemia, unspecified; I25.83 Coronary atherosclerosis due to lipid rich plaque; Z79.82 Long term (current) use of aspirin | CPT/HCPCS: 93005; 99212 ==